=== PATIENT | female | born 1955 | race Caucasian/White ===

== ENCOUNTER 2017-04-21 13:19 | Inpatient (IN) | payer BC, MEDICARE ==
[2017-04-21 13:19] VITALS: BMI 31.1
[2017-04-21] MEDS ORDERED: Sodium Chloride 0.9% 1,000 ML IV ONE (13:44)
--- NOTE | 2017-04-21 14:00 | C.PDOC ---
History Of Present Illness 61 y/o female with a long history of Fibromyalgia, rheumatoid arthritis, PE with IVC filter, DM, HTN as well as a past history of steroid abuse presents to Ed with complaints of persistent abdominal pain with associated nausea. Patient also complaints of post operative leg pain and generalized body aches secondary to recent femur fracture and chronic fibromyalgias. She has generalized weakness. Patient states she cannot eat at the rehab secondary to not liking the smell and taste of food. Patient was seen at ED on 03/14 for Femur fracture and sent to rehab, sent to ED on 04/14 for episodes of vomiting, sore throat and fever, Diagnosed with e coli UTI and hospitalized. Upon discharge from hospital patient was sent back to rehab and states ever since she went back she has not been feeling well. Time Seen by Provider: 04/21/17 13:35 Chief Complaint (Nursing): Abdominal Pain History Per: Patient History/Exam Limitations: no limitations Onset/Duration Of Symptoms: Persistent Current Symptoms Are (Timing): Still Present Past Medical History Reviewed: Historical Data, Nursing Documentation, Vital Signs Vital Signs: Last Vital Signs Temp 99.2 F 04/21/17 13:47 Pulse 112 H 04/21/17 13:47 Resp 14 04/21/17 13:47 BP 171/97 H 04/21/17 13:47 Pulse Ox 100 04/21/17 15:05 - Medical History PMH: Anemia, Anxiety, Arthritis, Asthma, COPD (ASTHMA), Depression, Diabetes, Fibromyalgia, HTN, Hypothyroidism, Pulmonary Embolism (on Coumadin), Rheumatoid Arthritis Surgical History: Back Surgery, Cholecystectomy - [facility] Procedures CENTRAL VENOUS CATHETER PLACEMENT WITH GUIDANCE (09/28/14) ENDOSC POLYPECTOMY OF LG INTEST (09/08/14) ESOPHAGOGASTRODUODENOSCOPY [EGD] W/CLOSED BIOPSY (09/08/14) EXCISION OF STOMACH, ENDO, DIAGN (11/19/15) REPOSITION R UP FEMUR WITH INTRAMED FIX, OPEN APPROACH (03/14/17) SPINAL CANAL EXPLOR NEC (09/08/14) Family History: States: No Known Family Hx - Social History Hx Tobacco Use: No Hx Alcohol Use: No Hx Substance Use: No - Immunization History Hx Tetanus Toxoid Vaccination: Yes Hx Influenza Vaccination: No Hx Pneumococcal Vaccination: No Review Of Systems Constitutional: Negative for: Fever, Chills Gastrointestinal: Positive for: Nausea, Abdominal Pain. Negative for: Vomiting Musculoskeletal: Positive for: Leg Pain Skin: Negative for: Rash Neurological: Negative for: Weakness, Numbness Physical Exam - Physical Exam Appears: Chronically Ill, Other (Flat affect) Skin: Warm, Dry, Other (sallow ) Head: Atraumatic, Normacephalic Eye(s): bilateral: Normal Inspection Oral Mucosa: Dry Neck: Normal ROM, Supple Chest: Symmetrical Cardiovascular: Rhythm Regular, Other (Tachycardia) Respiratory: Normal Breath Sounds, No Rales, No Rhonchi, No Wheezing Gastrointestinal/Abdominal: Soft, Tenderness (suprapubic), No Guarding, No Rebound, Other (Rotund abdomen) Back: No CVA Tenderness Extremity: Normal ROM, No Pedal Edema, Capillary Refill (<2 seconds) Pulses: Left Radial: Normal, Right Radial: Normal Neurological/Psych: Oriented x3, Normal Motor, Normal Sensation ED Course And Treatment - Laboratory Results Result Diagrams: 04/21/17 14:21 04/21/17 14:21 Lab Interpretation: Abnormal (Elevated WBC 11.4 with left shift, Na 131, K 3.0, HCO3 18 Urine WBC >900, nitrite +.) ECG: Interpreted By Me ECG Rhythm: Sinus Tachycardia ECG Interpretation: Abnormal O2 Sat by Pulse Oximetry: 100 (RA) Pulse Ox Interpretation: Normal Progress Note: 3:00 Patient now c/o chest pain and tightness in her throat. Repeat EKG unchanged, remains tachycardic with rate 113. Reevaluation Time: 15:07 Reassessment Condition: Unchanged - Physician Consult Information Time Consulting Physician Contacted: 15:07 Physician Contacted: Angel Gutierres Outcome Of Conversation: Patient to be admitted for treatment of recurrent UTI, rehydration. Disposition - Disposition Disposition: HOSPITALIZED Disposition Time: 15:09 Condition: FAIR - POA Present On Arrival: None - Clinical Impression Clinical Impression: UTI (urinary tract infection), Abdominal pain, Hyponatremia - Scribe Statement The provider has reviewed the documentation as recorded by the Keesha Mejía All medical record entries made by the Rafaelibcourt were at my direction and personally dictated by me. I have reviewed the chart and agree that the record accurately reflects my personal performance of the history, physical exam, medical decision making, and the department course for this patient. I have also personally directed, reviewed, and agree with the discharge instructions and disposition.
[2017-04-21] MEDS ORDERED: Sodium Chloride 0.9% 1,000 ML ONE (14:03)
[2017-04-21 14:26] LABS: BASO % 0.4 % (0.0-2.0); EOS # 0.2 K/uL (0.0-0.7); EOS % 1.8 % (0.0-4.0); HEMATOCRIT 33.3 % (34.0-47.0); LYMPH # 4.3 K/uL (1.0-4.3); LYMPH % 37.9 % (20.0-40.0); MEAN CELL VOLUME 74.1 fL (81.0-99.0); MEAN CORPUSCULAR HEMOGLOBIN 23.3 pg (27.0-31.0); MEAN CORPUSCULAR HGB CONC 31.4 g/dL (33.0-37.0); MEAN PLATELET VOLUME 8.2 fL (7.2-11.7); MONO # 1.2 K/uL (0.0-0.8); MONO % 10.4 % (0.0-10.0); RED CELL DISTRIBUTION WIDTH 15.5 % (11.5-14.5); WHITE BLOOD COUNT 11.4 K/uL (4.8-10.8)
[2017-04-21 14:36] LABS: CHLORIDE 100 mmol/L (98-107)
[2017-04-21 14:37] LABS: SODIUM 131 mmol/L (132-148)
[2017-04-21 14:39] LABS: ALKALINE PHOSPHATASE 116 U/L (38-126); AST/SGOT 24 U/L (14-36); BILIRUBIN,TOTAL 0.6 mg/dL (0.2-1.3); BLOOD UREA NITROGEN 9 mg/dL (7-17); CARBON DIOXIDE 18 mmol/L (22-30); GFR AFRICAN-AMERICAN > 60; RBC URINE 35 /hpf (0-3); TOTAL PROTEIN 6.6 g/dL (6.3-8.3); URINE BILIRUBIN NEGATIVE (NEGATIVE); URINE BLOOD 2+ (NEGATIVE); URINE COLOR Yellow (YELLOW); URINE GLUCOSE (UA) NORMAL (Normal); URINE KETONE NEGATIVE (NEGATIVE); URINE LEUKOCYTE ESTERASE 3+ Leu/uL (Negative); URINE PROTEIN 1+ mg/dL (NEGATIVE); URINE UROBILINOGEN NORMAL mg/dL (0.2-1.0); WBC CLUMPS FEW /hpf; WBC URINE 936 /hpf (0-5)
[2017-04-21 14:40] LABS: ALT/SGPT 33 U/L (9-52); CALCIUM 8.3 mg/dl (8.6-10.4); GLUCOSE,RANDOM 111 mg/dL (65-105); URINE BACTERIA FEW (<OCC)
--- NOTE | 2017-04-21 15:49 | CP.PCM.PN ---
Subjective - Date & Time of Evaluation Date of Evaluation: 04/21/17 Time of Evaluation: 15:30 - Subjective Subjective: CC: Dysuria, nausea, vomiting HPI: Patient is a 61 year old female who has a historyof Depression, DM, HTN, urinary incontinence is here for dehydration, urinary tract infection, and nasuea/vomiting for 10 days. She comes from a retirement where she has been for the past few weeks and before then she as at [facility]. She says she was vomiting for the past ten days and also having some painful urination as well. She also says she was feeling weak as well. She denies any coffee ground emesis, bloody emesis, blood in stool, or black tarry stool. She also denies fever, chills, chest pain, shortness of breath, cough, diarrhea, joint pain, or swelling. She is seen by Dr. Gutierres as an outpatient. PMH: see above PSH: right hip surgery SH: denies smoking, etoh use, or drug use. Objective - Vital Signs/Intake and Output Vital Signs (last 24 hours): Temp Pulse Resp BP Pulse Ox 99.2 F 112 H 14 171/97 H 100 04/21/17 13:47 04/21/17 13:47 04/21/17 13:47 04/21/17 13:47 04/21/17 15:10 - Medications Medications: Current Medications Potassium Chloride 40 meq/ (Sodium Chloride) 1,020 mls @ 80 mls/hr IV .[id number] MATIAS - Labs Labs: 04/21/17 14:21 04/21/17 14:21 PT 22.4 SECONDS (9.7-12.2) H 04/21/17 14:21 INR 2.0 04/21/17 14:21 - Constitutional Appears: Unkempt, Confused - Eye Exam Eye Exam: Normal appearance, PERRL Pupil Exam: NORMAL ACCOMODATION - ENT Exam ENT Exam: Mucous Membranes Dry - Respiratory Exam Respiratory Exam: Clear to Ausculation Bilateral. absent: Rales, Rhonchi, Wheezes - Cardiovascular Exam Cardiovascular Exam: REGULAR RHYTHM, RRR, +S1, +S2. absent: Gallop, Rubs - GI/Abdominal Exam GI & Abdominal Exam: Soft, Normal Bowel Sounds. absent: Distended, Guarding, Tenderness - Neurological Exam Neurological Exam: Alert, Awake - Psychiatric Exam Psychiatric exam: Anxious - Skin Skin Exam: Pallor, Pallor, Warm. absent: Normal Color Assessment and Plan (1) UTI (urinary tract infection) Assessment & Plan: Admitted patient to regular inpatient floor. After review of her labs she has a white count with no left shift or bands. Started Cipro 400mg Q12H UA shows Nitrites, Plus WBCs, +3 LE, 936 WBCS Follow up morning cbc and urine culture Status: Acute (2) Anemia Assessment & Plan: Patient looks very pale, Her Hbg is around her baseline, monitor her CBC. Status: Acute (3) Nausea & vomiting Assessment & Plan: Zofran 4mg Q4H prn, will Status: Acute (4) Hypokalemia Assessment & Plan: K is 3.0, 40 meq of KDUR x2 40 meq of potassium in half normal saline at 80 cc/hr Status: Acute (5) Hyponatremia Assessment & Plan: Na is 130, follow up morning cmp Status: Acute (6) Diabetes mellitus Assessment & Plan: Home metformin 500mb bid, accu checks, sliding scale, hypoglycemia protocol, moderate carb consistent diet Status: Chronic (7) History of pulmonary embolus (PE) Assessment & Plan: Warfarin 2mg, follow up morning INR Status: Chronic (8) Hypothyroid Assessment & Plan: Synthroid Status: Chronic (9) CHF (congestive heart failure) Assessment & Plan: Lisinopril 10mg, Cardizem 120mg, and Lopressor 25mg daily. Status: Chronic (10) HTN (hypertension) Assessment & Plan: Lopressor 25mg bid, Zestril 10mg, prn hydralazine 10mg Status: Chronic (11) Depression Assessment & Plan: Wellbutrin 100mg Status: Acute (12) Prophylactic measure Assessment & Plan: on Warfarin 2mg, Protonix 40mg, Protonix 40mg Senokot Tab 20mg prn Ambien 5mg prn for sleep aid. Status: Acute
[2017-04-21] MEDS ORDERED: Dextrose 50% SYRINGE Inj (50 ml) IV PRN (16:15)
[2017-04-21] MEDS: Pantoprazole 40 mg EC Tab PO SCH (18:26)
[2017-04-21] MEDS: Sucralfate 1 gm/10 ml Oral Susp UD PO SCH ×2 (18:27→21:44)
[2017-04-21] MEDS: Potassium Chloride 20 mEq ER Tab PO SCH ×2 (18:27→20:30)
[2017-04-21] MEDS: Oxybutynin XL 10 mg Tab PO SCH (18:28)
[2017-04-21] MEDS: (Novolin R) Insulin Human Regular 100 units/ml vial SC SCH ×2 (18:34→21:49)
[2017-04-21] MEDS: Potassium Chloride 40 MEQ in Sodium Chloride 0.45% 1,000 ML IV SCH (18:44)
[2017-04-21] MEDS: Ciprofloxacin 400mg/200ml D5W 400 MG/200 ML BAG IVPB SCH (21:44)
[2017-04-21] MEDS ORDERED: Magnesium Sulfate 1 gm in D5W 1 GM/100 ML BAG IVPB ONE (22:22)
[2017-04-22] MEDS ORDERED: Magnesium Sulfate 1 gm in D5W 1 GM/100 ML BAG IVPB ONE (04:00)
[2017-04-22] MEDS: Potassium Chloride 40 MEQ in Sodium Chloride 0.45% 1,000 ML IV SCH (05:02)
[2017-04-22] MEDS: Levothyroxine 100 MCG TAB PO SCH (06:05)
[2017-04-22] MEDS: Ciprofloxacin 400mg/200ml D5W 400 MG/200 ML BAG IVPB SCH ×2 (06:07→17:36)
[2017-04-22 06:31] LABS: BASO # 0.1 K/uL (0.0-0.2); BASO % 0.8 % (0.0-2.0); EOS # 0.2 K/uL (0.0-0.7); EOS % 1.8 % (0.0-4.0); HEMATOCRIT 32.4 % (34.0-47.0); LYMPH # 3.7 K/uL (1.0-4.3); LYMPH % 32.4 % (20.0-40.0); MEAN CELL VOLUME 74.7 fL (81.0-99.0); MEAN CORPUSCULAR HEMOGLOBIN 23.7 pg (27.0-31.0); MEAN CORPUSCULAR HGB CONC 31.8 g/dL (33.0-37.0); MEAN PLATELET VOLUME 8.7 fL (7.2-11.7); MONO # 1.1 K/uL (0.0-0.8); MONO % 9.4 % (0.0-10.0); RED CELL DISTRIBUTION WIDTH 15.3 % (11.5-14.5); WHITE BLOOD COUNT 11.5 K/uL (4.8-10.8)
[2017-04-22 06:35] LABS: INR 1.8
[2017-04-22 07:27] LABS: CHLORIDE 102 mmol/L (98-107)
[2017-04-22 07:28] LABS: POTASSIUM 2.9 mmol/L (3.6-5.2); SODIUM 129 mmol/L (132-148)
[2017-04-22 07:30] LABS: BILIRUBIN,TOTAL 0.6 mg/dL (0.2-1.3); CARBON DIOXIDE 15 mmol/L (22-30); GFR AFRICAN-AMERICAN > 60
[2017-04-22] MEDS: (Novolin R) Insulin Human Regular 100 units/ml vial SC SCH ×4 (07:30→22:54)
[2017-04-22 07:31] LABS: ALB/GLOB RATIO 0.9 (1.0-2.1); ALKALINE PHOSPHATASE 117 U/L (38-126); ALT/SGPT 34 U/L (9-52); AST/SGOT 22 U/L (14-36); BLOOD UREA NITROGEN 6 mg/dL (7-17); GLUCOSE,RANDOM 104 mg/dL (65-105); TOTAL PROTEIN 6.3 g/dL (6.3-8.3)
[2017-04-22 07:32] LABS: CALCIUM 7.7 mg/dl (8.6-10.4); MAGNESIUM 1.2 mg/dL (1.6-2.3); PHOSPHOROUS 3.3 mg/dL (2.5-4.5)
[2017-04-22] MEDS ORDERED: Sodium Chloride 0.45% 1,000 ML IV SCH (07:54)
[2017-04-22] MEDS: Magnesium Sulfate 1 gm in D5W 1 GM/100 ML BAG IVPB SCH ×4 (08:15→11:19)
[2017-04-22] MEDS: diltiaZEM 120 mg/24 Hours CD Cap PO SCH (09:54)
[2017-04-22] MEDS: Sucralfate 1 gm/10 ml Oral Susp UD PO SCH ×4 (09:54→22:17)
[2017-04-22] MEDS: Potassium Chloride 20 mEq ER Tab PO SCH ×2 (09:55→17:40)
[2017-04-22] MEDS: Pantoprazole 40 mg EC Tab PO SCH (10:00)
--- NOTE | 2017-04-22 10:01 | CP.PCM.PN ---
Subjective - Date & Time of Evaluation Date of Evaluation: 04/22/17 Time of Evaluation: 10:53 - Subjective Subjective: Patient seen and examined at bedside this AM; states her N/V/D has improved but still present Objective - Vital Signs/Intake and Output Vital Signs (last 24 hours): Temp Pulse Resp BP Pulse Ox 98.4 F 110 H 20 167/87 H 97 04/22/17 05:00 04/22/17 05:00 04/22/17 05:00 04/22/17 05:00 04/22/17 05:00 Intake and Output: 04/22/17 04/22/17 06:59 18:59 Intake Total 200 Balance 200 - Medications Medications: Current Medications Bupropion HCl (Wellbutrin) 100 mg PO DAILY [facility] Last Admin: 04/21/17 18:28 Dose: 100 mg Cyproheptadine HCl (Periactin) 4 mg PO DAILY [facility] Last Admin: 04/21/17 18:28 Dose: 4 mg Dextrose (Dextrose 50% Inj) 0 ml IV STAT PRN; Protocol PRN Reason: Hyglycemia Protocol Dextrose (Glutose 15) 0 gm PO ONCE PRN; Protocol PRN Reason: Hypoglycemia Protocol Diltiazem HCl (Cardizem Cd) 120 mg PO DAILY [facility] Ciprofloxacin (Cipro 400mg/200ml Dsw) 400 mg in 200 mls @ 133 mls/hr IVPB Q12H [facility] Last Admin: 04/22/17 06:07 Dose: 133 mls/hr Dextrose (Dextrose 5% In Water 1000 Ml) 1,000 mls @ 0 mls/hr IV .Q0M PRN; Protocol; Per Protocol PRN Reason: Hypoglycemia Protocol Sodium Chloride (Sodium Chloride 0.9%) 1,000 mls @ 100 mls/hr IV .Q10H [facility] Potassium Chloride 60 meq/ (Sodium Chloride) 530 mls @ 88.333 mls/hr IV ONCE ONE Stop: 04/22/17 14:59 Insulin Human Regular (Novolin R) 0 unit SC ACHS [facility] PRN Reason: Protocol Last Admin: 04/21/17 21:49 Dose: Not Given Levothyroxine Sodium (Synthroid) 100 mcg PO DAILY@0630 [facility] Last Admin: 04/22/17 06:05 Dose: 100 mcg Lisinopril (Zestril) 10 mg PO DAILY [facility] Last Admin: 04/21/17 18:33 Dose: 10 mg Metformin HCl (Glucophage) 500 mg PO BID [facility] Last Admin: 04/21/17 18:44 Dose: 500 mg Metoprolol Tartrate (Lopressor) 25 mg PO BID [facility] Last Admin: 04/21/17 22:26 Dose: Not Given Ondansetron HCl (Zofran Tab) 4 mg PO Q4 PRN PRN Reason: Nausea/Vomiting Ondansetron HCl (Zofran Inj) 4 mg IVP Q6 PRN PRN Reason: Nausea/Vomiting Last Admin: 04/22/17 03:01 Dose: 4 mg Oxybutynin Chloride (Ditropan Xl) 10 mg PO DAILY [facility] Last Admin: 04/21/17 18:28 Dose: 10 mg Pantoprazole Sodium (Protonix Ec Tab) 40 mg PO DAILY [facility] Last Admin: 04/21/17 18:26 Dose: 40 mg Potassium Chloride (K-Dur 20 Meq Er Tab) 40 meq PO BID [facility] Stop: 04/22/17 23:30 Rosuvastatin Calcium (Crestor) 20 mg PO HS [facility] Last Admin: 04/21/17 22:25 Dose: Not Given Sennosides (Senokot Tab) 8.6 mg PO HS PRN Sucralfate (Carafate Oral Susp) 1 gm PO QID [facility] Last Admin: 04/21/17 21:44 Dose: 1 gm Warfarin Sodium (Coumadin) 2 mg PO 1800 [facility] Stop: 04/22/17 18:01 Zolpidem Tartrate (Ambien) 5 mg PO HS PRN PRN Reason: Insomnia - Labs Labs: 04/22/17 06:05 04/22/17 06:05 PT 20.7 SECONDS (9.7-12.2) H 04/22/17 06:05 INR 1.8 04/22/17 06:05 APTT 34 SECONDS (21-34) 04/22/17 06:05 - Constitutional Appears: Non-toxic (conti facies) - Head Exam Head Exam: ATRAUMATIC (conti facies and fat redistribution) - Eye Exam Eye Exam: EOMI - ENT Exam ENT Exam: Mucous Membranes Moist - Neck Exam Neck Exam: Full ROM - Respiratory Exam Respiratory Exam: Clear to Ausculation Bilateral. absent: Rales - Cardiovascular Exam Cardiovascular Exam: REGULAR RHYTHM - Extremities Exam Extremities Exam: Full ROM. absent: Calf Tenderness - Back Exam Back Exam: absent: CVA tenderness (L), CVA tenderness (R) - Neurological Exam Neurological Exam: Awake, Oriented x3 - Psychiatric Exam Psychiatric exam: Normal Affect - Skin Skin Exam: Warm Assessment and Plan - Assessment and Plan (Free Text) Assessment: UTI (urinary tract infection) Admitted patient to regular inpatient floor. white count with no left shift or bands; same today as on admission c/w Cipro 400mg Q12H UA shows Nitrites, Plus WBCs, +3 LE, 936 WBCS f/u urine culture Anemia; chronic and stable Her Hbg is around her baseline, monitor her CBC. 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 Patient has been taking very high dose steroids for fibromyalgia -will give 100mg IV hydrocortisone AM and 50mg PM -can outpatient take 50mg morning PO and 25mg PO nighttime as outpatient -will monitor electrolyte abnormalities as such Hypokalemia K is 3.0, 40 meq of KDUR x2 K is 2.9 today; repleting appropriately; will check in PM Hyponatremia Na is 130 on admission, 129 04/22 changed 1/2 normal saline to normal saline Diabetes mellitus Home metformin 500mb bid, accu checks, sliding scale, hypoglycemia protocol, moderate carb consistent diet History of pulmonary embolus (PE) Warfarin 2mg, follow up morning INR Hypothyroid check TSH and Free T4 Synthroid home dose CHF (congestive heart failure) Assessment & Plan: Lisinopril 10mg, Cardizem 120mg, and Lopressor 25mg daily. HTN (hypertension) Assessment & Plan: Lopressor 25mg bid, Zestril 10mg, prn hydralazine 10mg Depression Assessment & Plan: Wellbutrin 100mg Prophylactic measure Assessment & Plan: on Warfarin 2mg, Protonix 40mg, Protonix 40mg Senokot Tab 20mg prn Ambien 5mg prn for sleep aid.
[2017-04-22] MEDS: Oxybutynin XL 10 mg Tab PO SCH (10:02)
--- NOTE | 2017-04-22 10:51 | RAD ---
PROCEDURE: Radiographs of the chest and abdomen (obstructive series) HISTORY: nausea, vomiting COMPARISON: No prior. TECHNIQUE: AP radiograph of the chest, with upright and supine radiographs of the abdomen. FINDINGS: CHEST: Lungs: Clear. Mammillated right hemidiaphragm Cardiovascular: Normal size heart. No pulmonary vascular congestion. Pleura: No pleural fluid. No pneumothorax. Other findings: None. ABDOMEN AND PELVIS: Bowel: Unremarkable bowel gas pattern. No evidence of mechanical obstruction. Free air: None. Bones: Right L3-4 prominent marginal osteophyte. Inferior right-sided marginal thoracic osteophytes Other findings: Cholecystectomy clips. IVC filter IMPRESSION: No infiltrate. No evidence of mechanical bowel obstruction. Postop changes Thoraco lumbar spondylosis
[2017-04-22 11:41] LABS: INR 1.9
[2017-04-22 19:57] LABS: CHLORIDE 102 mmol/L (98-107); POTASSIUM 4.2 mmol/L (3.6-5.2); SODIUM 130 mmol/L (132-148)
[2017-04-22 20:00] LABS: GFR AFRICAN-AMERICAN > 60
[2017-04-22 20:05] LABS: BLOOD UREA NITROGEN 5 mg/dL (7-17); CALCIUM 8.2 mg/dl (8.6-10.4); CARBON DIOXIDE 16 mmol/L (22-30); GLUCOSE,RANDOM 179 mg/dL (65-105)
[2017-04-22] MEDS: Sodium Chloride 0.9% 1,000 ML IV SCH (22:20)
[2017-04-23] MEDS: Sodium Chloride 0.9% 1,000 ML IV SCH (04:00)
[2017-04-23] MEDS: Levothyroxine 100 MCG TAB PO SCH (05:42)
[2017-04-23] MEDS: Ciprofloxacin 400mg/200ml D5W 400 MG/200 ML BAG IVPB SCH ×2 (05:43→18:36)
[2017-04-23 06:56] LABS: INR 2.2
[2017-04-23] MEDS: (Novolin R) Insulin Human Regular 100 units/ml vial SC SCH ×4 (08:08→22:18)
[2017-04-23] MEDS: Pantoprazole 40 mg EC Tab PO SCH ×2 (10:17→10:19)
[2017-04-23] MEDS: diltiaZEM 120 mg/24 Hours CD Cap PO SCH ×3 (10:17→16:17)
[2017-04-23] MEDS: Oxybutynin XL 10 mg Tab PO SCH ×2 (10:19)
[2017-04-23] MEDS: Sucralfate 1 gm/10 ml Oral Susp UD PO SCH ×4 (10:19→21:52)
--- NOTE | 2017-04-23 10:20 | CP.PCM.PN ---
Subjective - Date & Time of Evaluation Date of Evaluation: 04/23/17 Time of Evaluation: 12:55 - Subjective Subjective: Patient seen and examined at bedside today; states she feels better; should be going to [facility] on Wednesday after electrolytes are corrected. She is in agreement with this. Objective - Vital Signs/Intake and Output Vital Signs (last 24 hours): Temp Pulse Resp BP Pulse Ox 98.7 F 114 H 20 159/79 H 100 04/23/17 07:00 04/23/17 07:00 04/23/17 07:00 04/23/17 07:00 04/23/17 07:00 Intake and Output: 04/23/17 04/23/17 06:59 18:59 Intake Total 600 Output Total 900 Balance -300 - Medications Medications: Current Medications Acetaminophen/Hydrocodone Bitart (Vicodin 5 Mg-300 Mg) 1 tab PO Q4H PRN PRN Reason: Pain, moderate (4-7) Stop: 04/30/17 10:14 Bupropion HCl (Wellbutrin) 100 mg PO DAILY [facility] Last Admin: 04/22/17 10:00 Dose: Not Given Cyproheptadine HCl (Periactin) 4 mg PO DAILY [facility] Last Admin: 04/22/17 10:01 Dose: Not Given Dextrose (Dextrose 50% Inj) 0 ml IV STAT PRN; Protocol PRN Reason: Hyglycemia Protocol Dextrose (Glutose 15) 0 gm PO ONCE PRN; Protocol PRN Reason: Hypoglycemia Protocol Diltiazem HCl (Cardizem Cd) 120 mg PO DAILY [facility] Last Admin: 04/22/17 09:54 Dose: Not Given Hydrocortisone Sodium Succinate (Solu-Cortef) 100 mg IV DAILY [facility] Last Admin: 04/22/17 11:00 Dose: 100 mg Hydrocortisone Sodium Succinate (Solu-Cortef) 50 mg IV HS [facility] Last Admin: 04/22/17 22:17 Dose: 50 mg Ciprofloxacin (Cipro 400mg/200ml Dsw) 400 mg in 200 mls @ 133 mls/hr IVPB Q12H [facility] Last Admin: 04/23/17 05:43 Dose: 133 mls/hr Dextrose (Dextrose 5% In Water 1000 Ml) 1,000 mls @ 0 mls/hr IV .Q0M PRN; Protocol; Per Protocol PRN Reason: Hypoglycemia Protocol Insulin Human Regular (Novolin R) 0 unit SC ACHS [facility] PRN Reason: Protocol Last Admin: 04/23/17 08:08 Dose: 1 unit Levothyroxine Sodium (Synthroid) 100 mcg PO DAILY@0630 [facility] Last Admin: 04/23/17 05:42 Dose: 100 mcg Lisinopril (Zestril) 10 mg PO DAILY [facility] Last Admin: 04/22/17 10:00 Dose: Not Given Loperamide HCl (Imodium) 2 mg PO QID PRN PRN Reason: Diarrhea Metformin HCl (Glucophage) 500 mg PO BID [facility] Last Admin: 04/22/17 17:40 Dose: Not Given Metoprolol Tartrate (Lopressor) 25 mg PO BID [facility] Last Admin: 04/22/17 17:38 Dose: 25 mg Ondansetron HCl (Zofran Tab) 4 mg PO Q4 PRN PRN Reason: Nausea/Vomiting Ondansetron HCl (Zofran Inj) 4 mg IVP Q6 PRN PRN Reason: Nausea/Vomiting Last Admin: 04/22/17 11:06 Dose: 4 mg Oxybutynin Chloride (Ditropan Xl) 10 mg PO DAILY [facility] Last Admin: 04/22/17 10:02 Dose: Not Given Pantoprazole Sodium (Protonix Ec Tab) 40 mg PO DAILY [facility] Last Admin: 04/22/17 10:00 Dose: Not Given Rosuvastatin Calcium (Crestor) 20 mg PO HS [facility] Last Admin: 04/22/17 22:17 Dose: 20 mg Sennosides (Senokot Tab) 8.6 mg PO HS PRN Sucralfate (Carafate Oral Susp) 1 gm PO QID [facility] Last Admin: 04/22/17 22:17 Dose: 1 gm Tetrahydrozoline HCl/Zinc Sulfate (Visine 0.05% Opht Soln) 2 ml OU Q1H PRN PRN Reason: eye pain Warfarin Sodium (Coumadin) 2 mg PO 1800 [facility] Stop: 04/23/17 18:01 Zolpidem Tartrate (Ambien) 5 mg PO HS PRN PRN Reason: Insomnia Last Admin: 04/23/17 00:16 Dose: 5 mg - Labs Labs: 04/22/17 06:05 04/22/17 19:43 PT 25.0 SECONDS (9.7-12.2) H 04/23/17 06:37 INR 2.2 04/23/17 06:37 APTT 34 SECONDS (21-34) 04/22/17 06:05 - Constitutional Appears: Non-toxic - Head Exam Head Exam: ATRAUMATIC - Eye Exam Eye Exam: EOMI - ENT Exam ENT Exam: Mucous Membranes Moist - Neck Exam Neck Exam: Full ROM - Respiratory Exam Respiratory Exam: Clear to Ausculation Bilateral - Cardiovascular Exam Cardiovascular Exam: REGULAR RHYTHM - GI/Abdominal Exam GI & Abdominal Exam: Soft - Rectal Exam Rectal Exam: Deferred - Extremities Exam Extremities Exam: Full ROM, Pedal Edema. absent: Calf Tenderness - Back Exam Back Exam: absent: CVA tenderness (L), CVA tenderness (R) - Neurological Exam Neurological Exam: Alert, Awake, Oriented x3 - Psychiatric Exam Psychiatric exam: Normal Affect - Skin Skin Exam: Warm Assessment and Plan - Assessment and Plan (Free Text) Assessment: UTI (urinary tract infection) Admitted patient to regular inpatient floor. white count with no left shift or bands; same today as on admission c/w Cipro 400mg Q12H UA shows Nitrites, Plus WBCs, +3 LE, 936 WBCS culture is sensitive to cipro; will continue for 7 days; can even switch to PO when goes to Anemia; chronic and stable Her Hbg is around her baseline, monitor her CBC. 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 Patient has been taking very high dose steroids for fibromyalgia -will give 100mg IV hydrocortisone AM and 50mg PM -can outpatient take 50mg morning PO and 25mg PO nighttime as outpatient -will monitor electrolyte abnormalities as such Hypokalemia; improving resolved Hyponatremia; improving 130 today Diabetes mellitus Home metformin 500mb bid, accu checks, sliding scale, hypoglycemia protocol, moderate carb consistent diet -will likely need more insulin with the high dose steroids History of pulmonary embolus (PE) Warfarin 2mg, follow up morning INR INR stable Hypothyroid Synthroid home dose T4 high, TSH above normal limits however patient feels controlled with symptoms CHF (congestive heart failure) Assessment & Plan: Lisinopril 10mg, Cardizem 120mg, and Lopressor 25mg daily. HTN (hypertension) Assessment & Plan: Lopressor 25mg bid, Zestril 10mg, prn hydralazine 10mg Depression Assessment & Plan: Wellbutrin 100mg Prophylactic measure Assessment & Plan: on Warfarin 2mg, Protonix 40mg, Protonix 40mg Senokot Tab 20mg prn Ambien 5mg prn for sleep aid All management as per Dr. Gutierres
--- NOTE | 2017-04-23 12:29 | CARD ---
APPROVED REPORT EKG Measurement Heart [id number] <Conclusion> Sinus tachycardia Otherwise normal ECG
--- NOTE | 2017-04-23 12:29 | CARD ---
APPROVED REPORT EKG Measurement Heart [id number] [place] [id number] <Conclusion> Sinus tachycardia Otherwise normal ECG
[2017-04-23] MEDS: Hydrocodone/Acetaminophen 5 mg /300 mg Tab PO PRN (18:47)
[2017-04-23] MEDS: Tetrahydrozoline Opht 0.05% Sol (15 ml) OU PRN (18:50)
[2017-04-24] MEDS: Hydrocodone/Acetaminophen 5 mg /300 mg Tab PO PRN ×3 (00:31→22:23)
[2017-04-24] MEDS: Ciprofloxacin 400mg/200ml D5W 400 MG/200 ML BAG IVPB SCH ×2 (05:32→17:14)
[2017-04-24] MEDS: Levothyroxine 100 MCG TAB PO SCH (05:33)
[2017-04-24] MEDS: Tetrahydrozoline Opht 0.05% Sol (15 ml) OU PRN ×4 (05:48→21:26)
[2017-04-24 06:35] LABS: INR 2.4
[2017-04-24] MEDS: (Novolin R) Insulin Human Regular 100 units/ml vial SC SCH ×4 (08:08→22:02)
[2017-04-24] MEDS: diltiaZEM 120 mg/24 Hours CD Cap PO SCH (10:58)
[2017-04-24] MEDS: Oxybutynin XL 10 mg Tab PO SCH (10:59)
[2017-04-24] MEDS: Sucralfate 1 gm/10 ml Oral Susp UD PO SCH ×4 (11:00→21:26)
[2017-04-24] MEDS: Pantoprazole 40 mg EC Tab PO SCH (11:00)
[2017-04-25] MEDS: Levothyroxine 100 MCG TAB PO SCH (06:13)
[2017-04-25] MEDS: Ciprofloxacin 400mg/200ml D5W 400 MG/200 ML BAG IVPB SCH ×2 (06:14→17:48)
[2017-04-25 07:23] LABS: INR 2.1
[2017-04-25] MEDS: (Novolin R) Insulin Human Regular 100 units/ml vial SC SCH ×4 (07:33→21:49)
[2017-04-25] MEDS: Tetrahydrozoline Opht 0.05% Sol (15 ml) OU PRN ×2 (09:24→13:08)
[2017-04-25] MEDS: Sucralfate 1 gm/10 ml Oral Susp UD PO SCH ×4 (09:25→21:36)
[2017-04-25] MEDS: Pantoprazole 40 mg EC Tab PO SCH (09:26)
[2017-04-25] MEDS: diltiaZEM 120 mg/24 Hours CD Cap PO SCH (09:26)
[2017-04-25] MEDS: Oxybutynin XL 10 mg Tab PO SCH (09:27)
[2017-04-25] MEDS: Hydrocodone/Acetaminophen 5 mg /300 mg Tab PO PRN ×2 (16:23→23:34)
[2017-04-26] MEDS: Levothyroxine 100 MCG TAB PO SCH (06:06)
[2017-04-26] MEDS: (Novolin R) Insulin Human Regular 100 units/ml vial SC SCH ×4 (07:07→22:00)
[2017-04-26 07:33] LABS: BASO # 0.1 K/uL (0.0-0.2); BASO % 0.5 % (0.0-2.0); EOS # 0.1 K/uL (0.0-0.7); EOS % 0.7 % (0.0-4.0); HEMATOCRIT 28.5 % (34.0-47.0); LYMPH # 4.4 K/uL (1.0-4.3); LYMPH % 32.9 % (20.0-40.0); MEAN CELL VOLUME 74.8 fL (81.0-99.0); MEAN CORPUSCULAR HEMOGLOBIN 23.6 pg (27.0-31.0); MEAN CORPUSCULAR HGB CONC 31.6 g/dL (33.0-37.0); MEAN PLATELET VOLUME 8.5 fL (7.2-11.7); MONO # 1.1 K/uL (0.0-0.8); MONO % 8.2 % (0.0-10.0); RED CELL DISTRIBUTION WIDTH 15.9 % (11.5-14.5); WHITE BLOOD COUNT 13.5 K/uL (4.8-10.8)
[2017-04-26 07:38] LABS: INR 1.5
[2017-04-26 08:19] LABS: CHLORIDE 105 mmol/L (98-107); POTASSIUM 3.1 mmol/L (3.6-5.2); SODIUM 133 mmol/L (132-148)
[2017-04-26 08:21] LABS: BILIRUBIN,TOTAL 0.4 mg/dL (0.2-1.3); CARBON DIOXIDE 19 mmol/L (22-30); GFR AFRICAN-AMERICAN > 60
[2017-04-26 08:22] LABS: ALB/GLOB RATIO 1.2 (1.0-2.1); ALKALINE PHOSPHATASE 80 U/L (38-126); ALT/SGPT 26 U/L (9-52); AST/SGOT 17 U/L (14-36); BLOOD UREA NITROGEN 25 mg/dL (7-17); CALCIUM 8.3 mg/dl (8.6-10.4); GLUCOSE,RANDOM 99 mg/dL (65-105); TOTAL PROTEIN 5.1 g/dL (6.3-8.3)
[2017-04-26] MEDS ORDERED: Potassium Chloride 20 mEq ER Tab PO ONE (10:30)
[2017-04-26] MEDS: Tetrahydrozoline Opht 0.05% Sol (15 ml) OU PRN ×2 (10:30→21:24)
[2017-04-26] MEDS: diltiaZEM 120 mg/24 Hours CD Cap PO SCH ×2 (10:31→10:36)
[2017-04-26] MEDS: Oxybutynin XL 10 mg Tab PO SCH (10:32)
[2017-04-26] MEDS: Sucralfate 1 gm/10 ml Oral Susp UD PO SCH ×5 (10:33→21:18)
[2017-04-26] MEDS: Pantoprazole 40 mg EC Tab PO SCH (10:33)
--- NOTE | 2017-04-26 11:39 | CP.PCM.PN ---
Subjective - Date & Time of Evaluation Date of Evaluation: 04/26/17 Time of Evaluation: 11:35 - Subjective Subjective: Progress note. Service for Dr. Gutierres. Pt seen and examined at bedside. No acute distress. Feels much better, plan for DC home. No fevers, chills, vomiting, diarrhea. Objective - Vital Signs/Intake and Output Vital Signs (last 24 hours): Temp Pulse Resp BP Pulse Ox 98.2 F 93 H 18 113/68 98 04/26/17 08:51 04/26/17 08:51 04/26/17 08:51 04/26/17 10:31 04/26/17 08:51 - Medications Medications: Current Medications Acetaminophen/Hydrocodone Bitart (Vicodin 5 Mg-300 Mg) 1 tab PO Q4H PRN PRN Reason: Pain, moderate (4-7) Stop: 04/30/17 10:14 Last Admin: 04/25/17 23:34 Dose: 1 tab Bupropion HCl (Wellbutrin) 100 mg PO DAILY [facility] Last Admin: 04/26/17 10:32 Dose: 100 mg Ciprofloxacin (Cipro) 500 mg PO Q12 [facility] Last Admin: 04/26/17 10:32 Dose: 500 mg Cyproheptadine HCl (Periactin) 4 mg PO DAILY [facility] Last Admin: 04/26/17 10:34 Dose: Not Given Dextrose (Dextrose 50% Inj) 0 ml IV STAT PRN; Protocol PRN Reason: Hyglycemia Protocol Dextrose (Glutose 15) 0 gm PO ONCE PRN; Protocol PRN Reason: Hypoglycemia Protocol Diltiazem HCl (Cardizem Cd) 120 mg PO DAILY [facility] Last Admin: 04/26/17 10:36 Dose: Not Given Hydrocortisone Sodium Succinate (Solu-Cortef) 100 mg IV DAILY [facility] Last Admin: 04/26/17 10:33 Dose: 100 mg Hydrocortisone Sodium Succinate (Solu-Cortef) 50 mg IV HS [facility] Last Admin: 04/25/17 21:37 Dose: 50 mg Insulin Human Regular (Novolin R) 0 unit SC ACHS [facility] PRN Reason: Protocol Last Admin: 04/26/17 07:07 Dose: Not Given Levothyroxine Sodium (Synthroid) 100 mcg PO DAILY@0630 [facility] Last Admin: 04/26/17 06:06 Dose: 100 mcg Lisinopril (Zestril) 10 mg PO DAILY [facility] Last Admin: 04/26/17 10:34 Dose: Not Given Loperamide HCl (Imodium) 2 mg PO QID PRN PRN Reason: Diarrhea Metformin HCl (Glucophage) 500 mg PO BID [facility] Last Admin: 04/26/17 10:33 Dose: 500 mg Metoprolol Tartrate (Lopressor) 25 mg PO BID [facility] Last Admin: 04/26/17 10:31 Dose: 25 mg Ondansetron HCl (Zofran Tab) 4 mg PO Q4 PRN PRN Reason: Nausea/Vomiting Ondansetron HCl (Zofran Inj) 4 mg IVP Q6 PRN PRN Reason: Nausea/Vomiting Last Admin: 04/22/17 11:06 Dose: 4 mg Oxybutynin Chloride (Ditropan Xl) 10 mg PO DAILY [facility] Last Admin: 04/26/17 10:32 Dose: 10 mg Pantoprazole Sodium (Protonix Ec Tab) 40 mg PO DAILY [facility] Last Admin: 04/26/17 10:33 Dose: 40 mg Rosuvastatin Calcium (Crestor) 20 mg PO HS [facility] Last Admin: 04/25/17 21:36 Dose: 20 mg Sennosides (Senokot Tab) 8.6 mg PO HS PRN Sucralfate (Carafate Oral Susp) 1 gm PO QID [facility] Last Admin: 04/26/17 10:44 Dose: Not Given Tetrahydrozoline HCl/Zinc Sulfate (Visine 0.05% Opht Soln) 0 ml OU Q1H PRN PRN Reason: eye pain Last Admin: 04/26/17 10:30 Dose: 1 drop Zolpidem Tartrate (Ambien) 5 mg PO HS PRN PRN Reason: Insomnia Last Admin: 04/25/17 21:36 Dose: 5 mg - Labs Labs: 04/26/17 07:16 04/26/17 07:16 PT 17.9 SECONDS (9.7-12.2) H D 04/26/17 07:16 INR 1.5 D 04/26/17 07:16 APTT 34 SECONDS (21-34) 04/22/17 06:05 - Constitutional Appears: Non-toxic, No Acute Distress - Head Exam Head Exam: ATRAUMATIC, NORMAL INSPECTION, NORMOCEPHALIC - Eye Exam Eye Exam: EOMI - ENT Exam ENT Exam: Mucous Membranes Moist - Neck Exam Neck Exam: Full ROM, Normal Inspection - Respiratory Exam Respiratory Exam: NORMAL BREATHING PATTERN. absent: Respiratory Distress - Cardiovascular Exam Cardiovascular Exam: REGULAR RHYTHM - GI/Abdominal Exam GI & Abdominal Exam: Soft, Normal Bowel Sounds. absent: Tenderness - Extremities Exam Extremities Exam: Full ROM, Normal Inspection - Neurological Exam Neurological Exam: Alert, Awake, Oriented x3 - Psychiatric Exam Psychiatric exam: Normal Affect, Normal Mood - Skin Skin Exam: Dry, Intact, Normal Color, Warm Assessment and Plan - Assessment and Plan (Free Text) Assessment: UTI (urinary tract infection) -Admitted patient to regular inpatient floor. 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 Patient has been taking very high dose steroids for fibromyalgia -will give 100mg IV hydrocortisone AM and 50mg PM -can outpatient take 50mg morning PO and 25mg PO nighttime as outpatient -will monitor electrolyte abnormalities as such Hypokalemia; improving -cont to monitor Hyponatremia; improving -continue to monitor Diabetes mellitus Home metformin 500mb bid, accu checks, sliding scale, hypoglycemia protocol, moderate carb consistent diet -will likely need more insulin with the high dose steroids History of pulmonary embolus (PE) Warfarin 2mg, follow up morning INR INR stable Hypothyroid Synthroid home dose T4 high, TSH above normal limits however patient feels controlled with symptoms CHF (congestive heart failure) Assessment & Plan: Lisinopril 10mg, Cardizem 120mg, and Lopressor 25mg daily. HTN (hypertension) Assessment & Plan: Lopressor 25mg bid, Zestril 10mg, prn hydralazine 10mg Depression Assessment & Plan: Wellbutrin 100mg Prophylactic measure Assessment & Plan: on Warfarin 2mg, Protonix 40mg, Protonix 40mg Senokot Tab 20mg prn Ambien 5mg prn for sleep aid All management as per Dr. Gutierres
[2017-04-26] MEDS: Hydrocodone/Acetaminophen 5 mg /300 mg Tab PO PRN ×2 (13:27→21:27)
[2017-04-27] MEDS: Levothyroxine 100 MCG TAB PO SCH (05:57)
[2017-04-27 06:22] LABS: BASO # 0.1 K/uL (0.0-0.2); BASO % 0.8 % (0.0-2.0); EOS # 0.1 K/uL (0.0-0.7); EOS % 0.5 % (0.0-4.0); LYMPH # 4.4 K/uL (1.0-4.3); LYMPH % 32.2 % (20.0-40.0); MEAN CELL VOLUME 74.8 fL (81.0-99.0); MEAN CORPUSCULAR HEMOGLOBIN 23.3 pg (27.0-31.0); MEAN CORPUSCULAR HGB CONC 31.2 g/dL (33.0-37.0); MEAN PLATELET VOLUME 8.8 fL (7.2-11.7); MONO # 0.9 K/uL (0.0-0.8); MONO % 6.9 % (0.0-10.0); NRBC % 0.1 % (0.0-2.0); RED CELL DISTRIBUTION WIDTH 16.2 % (11.5-14.5); WHITE BLOOD COUNT 13.7 K/uL (4.8-10.8)
[2017-04-27 06:25] LABS: INR 1.1
[2017-04-27 06:38] LABS: CHLORIDE 105 mmol/L (98-107); SODIUM 134 mmol/L (132-148)
[2017-04-27 06:39] LABS: POTASSIUM 3.5 mmol/L (3.6-5.2)
[2017-04-27 06:40] LABS: GFR AFRICAN-AMERICAN > 60
[2017-04-27 06:41] LABS: ALB/GLOB RATIO 0.9 (1.0-2.1); ALKALINE PHOSPHATASE 79 U/L (38-126); ALT/SGPT 32 U/L (9-52); AST/SGOT 25 U/L (14-36); BILIRUBIN,TOTAL 0.2 mg/dL (0.2-1.3); BLOOD UREA NITROGEN 28 mg/dL (7-17); CARBON DIOXIDE 18 mmol/L (22-30); GLUCOSE,RANDOM 101 mg/dL (65-105); TOTAL PROTEIN 6.2 g/dL (6.3-8.3)
[2017-04-27 06:42] LABS: CALCIUM 8.7 mg/dl (8.6-10.4)
[2017-04-27] MEDS: (Novolin R) Insulin Human Regular 100 units/ml vial SC SCH ×4 (07:30→22:06)
[2017-04-27] MEDS: Tetrahydrozoline Opht 0.05% Sol (15 ml) OU PRN ×4 (08:32→21:58)
[2017-04-27] MEDS: Oxybutynin XL 10 mg Tab PO SCH (10:00)
[2017-04-27] MEDS: diltiaZEM 120 mg/24 Hours CD Cap PO SCH ×2 (10:00→18:25)
[2017-04-27] MEDS: Sucralfate 1 gm/10 ml Oral Susp UD PO SCH ×4 (10:00→21:52)
[2017-04-27] MEDS: Pantoprazole 40 mg EC Tab PO SCH (10:00)
[2017-04-27] MEDS: Hydrocodone/Acetaminophen 5 mg /300 mg Tab PO PRN ×2 (15:45→22:11)
[2017-04-27] MEDS ORDERED: Potassium Chloride 20 mEq/15 ml LIQ UD PO ONE ×2 (16:44→18:29)
--- NOTE | 2017-04-27 16:46 | CP.PCM.PN ---
Subjective - Date & Time of Evaluation Date of Evaluation: 04/27/17 Time of Evaluation: 10:45 - Subjective Subjective: PGY 2 Med Note- Dr. Gutierres's service Pt seen and examined. Patient spoke extensively with Dr. Gutierres about her family. Patient denies complaints at this time. Objective - Vital Signs/Intake and Output Vital Signs (last 24 hours): Temp Pulse Resp BP Pulse Ox 98.2 F 97 H 20 136/76 95 04/27/17 07:05 04/27/17 07:05 04/27/17 07:05 04/27/17 07:05 04/27/17 07:05 Intake and Output: 04/27/17 04/27/17 06:59 18:59 Intake Total 350 Balance 350 - Medications Medications: Current Medications Acetaminophen/Hydrocodone Bitart (Vicodin 5 Mg-300 Mg) 1 tab PO Q4H PRN PRN Reason: Pain, moderate (4-7) Stop: 04/30/17 10:14 Last Admin: 04/27/17 15:45 Dose: 1 tab Bupropion HCl (Wellbutrin) 100 mg PO DAILY [facility] Last Admin: 04/27/17 10:00 Dose: Not Given Ciprofloxacin (Cipro) 500 mg PO Q12 [facility] Last Admin: 04/27/17 10:00 Dose: Not Given Cyproheptadine HCl (Periactin) 4 mg PO DAILY [facility] Last Admin: 04/27/17 10:00 Dose: Not Given Dextrose (Dextrose 50% Inj) 0 ml IV STAT PRN; Protocol PRN Reason: Hyglycemia Protocol Dextrose (Glutose 15) 0 gm PO ONCE PRN; Protocol PRN Reason: Hypoglycemia Protocol Diltiazem HCl (Cardizem Cd) 120 mg PO DAILY [facility] Last Admin: 04/27/17 10:00 Dose: Not Given Hydrocortisone Sodium Succinate (Solu-Cortef) 100 mg IV DAILY [facility] Last Admin: 04/27/17 10:00 Dose: 100 mg Hydrocortisone Sodium Succinate (Solu-Cortef) 50 mg IV HS [facility] Last Admin: 04/26/17 21:23 Dose: 50 mg Insulin Human Regular (Novolin R) 0 unit SC ACHS [facility] PRN Reason: Protocol Last Admin: 04/27/17 11:30 Dose: Not Given Levothyroxine Sodium (Synthroid) 100 mcg PO DAILY@0630 [facility] Last Admin: 04/27/17 05:57 Dose: 100 mcg Lisinopril (Zestril) 10 mg PO DAILY [facility] Last Admin: 04/27/17 10:00 Dose: Not Given Loperamide HCl (Imodium) 2 mg PO QID PRN PRN Reason: Diarrhea Metformin HCl (Glucophage) 500 mg PO BID [facility] Last Admin: 04/27/17 10:00 Dose: Not Given Metoprolol Tartrate (Lopressor) 25 mg PO BID [facility] Last Admin: 04/27/17 10:00 Dose: Not Given Ondansetron HCl (Zofran Tab) 4 mg PO Q4 PRN PRN Reason: Nausea/Vomiting Ondansetron HCl (Zofran Inj) 4 mg IVP Q6 PRN PRN Reason: Nausea/Vomiting Last Admin: 04/27/17 08:25 Dose: 4 mg Oxybutynin Chloride (Ditropan Xl) 10 mg PO DAILY [facility] Last Admin: 04/27/17 10:00 Dose: Not Given Pantoprazole Sodium (Protonix Ec Tab) 40 mg PO DAILY [facility] Last Admin: 04/27/17 10:00 Dose: Not Given Rosuvastatin Calcium (Crestor) 20 mg PO HS [facility] Last Admin: 04/26/17 21:18 Dose: 20 mg Sennosides (Senokot Tab) 8.6 mg PO HS PRN Sucralfate (Carafate Oral Susp) 1 gm PO QID [facility] Last Admin: 04/27/17 14:04 Dose: Not Given Tetrahydrozoline HCl/Zinc Sulfate (Visine 0.05% Opht Soln) 0 ml OU Q1H PRN PRN Reason: eye pain Last Admin: 04/27/17 11:59 Dose: 1 drop Zolpidem Tartrate (Ambien) 5 mg PO HS PRN PRN Reason: Insomnia Last Admin: 04/26/17 21:40 Dose: 5 mg - Labs Labs: 04/27/17 06:11 04/27/17 06:09 PT 12.7 SECONDS (9.7-12.2) H D 04/27/17 06:08 INR 1.1 04/27/17 06:08 APTT 34 SECONDS (21-34) 04/22/17 06:05 - Constitutional Appears: Non-toxic, No Acute Distress - Head Exam Head Exam: ATRAUMATIC, NORMAL INSPECTION, NORMOCEPHALIC - Eye Exam Eye Exam: EOMI, Normal appearance Pupil Exam: NORMAL ACCOMODATION - ENT Exam ENT Exam: Mucous Membranes Moist - Neck Exam Neck Exam: Full ROM - Cardiovascular Exam Cardiovascular Exam: +S1, +S2 - GI/Abdominal Exam GI & Abdominal Exam: Soft, Normal Bowel Sounds - Extremities Exam Extremities Exam: Full ROM, Normal Capillary Refill - Back Exam Back Exam: Full ROM - Neurological Exam Neurological Exam: Alert, Awake, Oriented x3 - Psychiatric Exam Psychiatric exam: Normal Affect, Normal Mood - Skin Skin Exam: Dry, Normal Color, Warm Assessment and Plan - Assessment and Plan (Free Text) Assessment: UTI (urinary tract infection) -Continue cipro 500 q 12 - Add on Florastor -When stable for discharge- patient to continue cipro outpatient Anemia; chronic and stable -continue to monitor Nausea & vomiting -continue zofran -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 Patient has been taking very high dose steroids for fibromyalgia -will give 100mg IV hydrocortisone AM and 50mg PM -can outpatient take 50mg morning PO and 25mg PO nighttime as outpatient -will monitor electrolyte abnormalities as such Hypokalemia -cont to monitor -replete as needed Diabetes mellitus Home metformin 500mb bid, accu checks, sliding scale, hypoglycemia protocol, moderate carb consistent diet -will likely need more insulin with the high dose steroids History of pulmonary embolus (PE) Warfarin 2mg, follow up morning INR INR stable Hypothyroid Synthroid home dose T4 high, TSH above normal limits however patient feels controlled with symptoms CHF (congestive heart failure) Assessment & Plan: Lisinopril 10mg, Cardizem 120mg, and Lopressor 25mg daily. HTN (hypertension) Assessment & Plan: Lopressor 25mg bid, Zestril 10mg, prn hydralazine 10mg Depression Assessment & Plan: Wellbutrin 100mg Prophylactic measure Assessment & Plan: on Warfarin 2mg, Protonix 40mg, Protonix 40mg Senokot Tab 20mg prn Ambien 5mg prn for sleep aid Per case management- Patient is in the process of receiving authorization for [facility] rehab. All management as per Dr. Gutierres
[2017-04-27] MEDS: Saccharomyces Boulardi 250 mg Cap PO SCH (21:59)
[2017-04-28] MEDS: Levothyroxine 100 MCG TAB PO SCH (06:46)
[2017-04-28 07:30] LABS: BASO # 0.1 K/uL (0.0-0.2); BASO % 0.5 % (0.0-2.0); EOS % 0.3 % (0.0-4.0); HEMATOCRIT 29.6 % (34.0-47.0); LYMPH # 4.1 K/uL (1.0-4.3); LYMPH % 31.9 % (20.0-40.0); MEAN CELL VOLUME 74.3 fL (81.0-99.0); MEAN CORPUSCULAR HEMOGLOBIN 23.5 pg (27.0-31.0); MEAN CORPUSCULAR HGB CONC 31.6 g/dL (33.0-37.0); MEAN PLATELET VOLUME 8.4 fL (7.2-11.7); MONO # 1.1 K/uL (0.0-0.8); MONO % 8.6 % (0.0-10.0); NRBC % 0.1 % (0.0-2.0); RED CELL DISTRIBUTION WIDTH 15.7 % (11.5-14.5); WHITE BLOOD COUNT 12.8 K/uL (4.8-10.8)
[2017-04-28 07:32] LABS: CHLORIDE 103 mmol/L (98-107); INR 1.2
[2017-04-28 07:33] LABS: POTASSIUM 3.7 mmol/L (3.6-5.2); SODIUM 134 mmol/L (132-148)
[2017-04-28 07:36] LABS: ALB/GLOB RATIO 1.3 (1.0-2.1); ALKALINE PHOSPHATASE 72 U/L (38-126); ALT/SGPT 26 U/L (9-52); AST/SGOT 25 U/L (14-36); BILIRUBIN,TOTAL 0.4 mg/dL (0.2-1.3); BLOOD UREA NITROGEN 24 mg/dL (7-17); CALCIUM 8.4 mg/dl (8.6-10.4); CARBON DIOXIDE 20 mmol/L (22-30); GFR AFRICAN-AMERICAN > 60; GLUCOSE,RANDOM 106 mg/dL (65-105); TOTAL PROTEIN 5.3 g/dL (6.3-8.3)
[2017-04-28] MEDS: (Novolin R) Insulin Human Regular 100 units/ml vial SC SCH ×4 (07:56→21:14)
[2017-04-28 08:25] VITALS: RESP 20
[2017-04-28] MEDS: Sucralfate 1 gm/10 ml Oral Susp UD PO SCH ×4 (10:10→21:12)
[2017-04-28] MEDS: Pantoprazole 40 mg EC Tab PO SCH (10:11)
[2017-04-28] MEDS: Oxybutynin XL 10 mg Tab PO SCH (10:14)
[2017-04-28] MEDS: Hydrocodone/Acetaminophen 5 mg /300 mg Tab PO PRN ×2 (14:55→21:19)
--- NOTE | 2017-04-28 15:34 | CP.PCM.PN ---
Subjective - Date & Time of Evaluation Date of Evaluation: 04/28/17 Time of Evaluation: 10:00 - Subjective Subjective: PGY 2 Med Note- Dr. Gutierres's service Pt seen and examined. Patient appears down. Patient apparently has been sleeping more. A review of systems addressed and negative at this time with regards to headaches, subjective fevers or chills, or paresthesias at this time. Objective - Vital Signs/Intake and Output Vital Signs (last 24 hours): Temp Pulse Resp BP Pulse Ox 98.2 F 98 H 20 132/78 98 04/28/17 08:00 04/28/17 08:00 04/28/17 08:00 04/28/17 10:10 04/28/17 08:00 Intake and Output: 04/28/17 04/28/17 06:59 18:59 Intake Total 640 500 Output Total 600 Balance 40 500 - Medications Medications: Current Medications Acetaminophen (Tylenol 325mg Tab) 650 mg PO Q6 PRN PRN Reason: Pain, Mild (1-3) Acetaminophen/Hydrocodone Bitart (Vicodin 5 Mg-300 Mg) 1 tab PO Q4H PRN PRN Reason: Pain, moderate (4-7) Stop: 05/03/17 23:59 Last Admin: 04/28/17 14:55 Dose: 1 tab Bupropion HCl (Wellbutrin) 100 mg PO DAILY [facility] Last Admin: 04/28/17 10:14 Dose: 100 mg Ciprofloxacin (Cipro) 500 mg PO Q12 [facility] Last Admin: 04/28/17 10:11 Dose: 500 mg Cyproheptadine HCl (Periactin) 4 mg PO DAILY [facility] Last Admin: 04/28/17 10:14 Dose: 4 mg Dextrose (Dextrose 50% Inj) 0 ml IV STAT PRN; Protocol PRN Reason: Hyglycemia Protocol Dextrose (Glutose 15) 0 gm PO ONCE PRN; Protocol PRN Reason: Hypoglycemia Protocol Diltiazem HCl (Cardizem Cd) 120 mg PO DAILY [facility] Last Admin: 04/27/17 18:25 Dose: 120 mg Hydrocortisone Sodium Succinate (Solu-Cortef) 100 mg IV DAILY [facility] Last Admin: 04/28/17 10:15 Dose: 100 mg Hydrocortisone Sodium Succinate (Solu-Cortef) 50 mg IV HS [facility] Last Admin: 04/27/17 21:58 Dose: 50 mg Insulin Human Regular (Novolin R) 0 unit SC ACHS [facility] PRN Reason: Protocol Last Admin: 04/28/17 12:08 Dose: 1 unit Levothyroxine Sodium (Synthroid) 100 mcg PO DAILY@0630 [facility] Last Admin: 04/28/17 06:46 Dose: 100 mcg Lisinopril (Zestril) 10 mg PO DAILY [facility] Last Admin: 04/28/17 10:12 Dose: 10 mg Loperamide HCl (Imodium) 2 mg PO QID PRN PRN Reason: Diarrhea Metformin HCl (Glucophage) 500 mg PO BID [facility] Last Admin: 04/28/17 10:11 Dose: 500 mg Metoprolol Tartrate (Lopressor) 25 mg PO BID [facility] Last Admin: 04/28/17 10:10 Dose: 25 mg Ondansetron HCl (Zofran Tab) 4 mg PO Q4 PRN PRN Reason: Nausea/Vomiting Last Admin: 04/28/17 10:14 Dose: 4 mg Ondansetron HCl (Zofran Inj) 4 mg IVP Q6 PRN PRN Reason: Nausea/Vomiting Last Admin: 04/27/17 08:25 Dose: 4 mg Oxybutynin Chloride (Ditropan Xl) 10 mg PO DAILY [facility] Last Admin: 04/28/17 10:14 Dose: 10 mg Pantoprazole Sodium (Protonix Ec Tab) 40 mg PO DAILY [facility] Last Admin: 04/28/17 10:11 Dose: 40 mg Rosuvastatin Calcium (Crestor) 20 mg PO HS [facility] Last Admin: 04/27/17 21:59 Dose: 20 mg Saccharomyces Boulardii (Florastor) 250 mg PO Q12 [facility] Last Admin: 04/27/17 21:59 Dose: 250 mg Sennosides (Senokot Tab) 8.6 mg PO HS PRN Sucralfate (Carafate Oral Susp) 1 gm PO QID [facility] Last Admin: 04/28/17 13:31 Dose: 1 gm Tetrahydrozoline HCl/Zinc Sulfate (Visine 0.05% Opht Soln) 0 ml OU Q1H PRN PRN Reason: eye pain Last Admin: 04/27/17 21:58 Dose: 1 drop Zolpidem Tartrate (Ambien) 5 mg PO HS PRN PRN Reason: Insomnia Last Admin: 04/27/17 22:11 Dose: 5 mg - Labs Labs: 04/28/17 07:06 04/28/17 07:06 PT 13.0 SECONDS (9.7-12.2) H 04/28/17 07:06 INR 1.2 04/28/17 07:06 APTT 34 SECONDS (21-34) 04/22/17 06:05 - Constitutional Appears: Non-toxic, No Acute Distress - Head Exam Head Exam: ATRAUMATIC, NORMAL INSPECTION, NORMOCEPHALIC - Eye Exam Eye Exam: EOMI Pupil Exam: NORMAL ACCOMODATION - ENT Exam ENT Exam: Mucous Membranes Moist - Neck Exam Neck Exam: Full ROM - Respiratory Exam Respiratory Exam: NORMAL BREATHING PATTERN - Cardiovascular Exam Cardiovascular Exam: +S1, +S2 - GI/Abdominal Exam GI & Abdominal Exam: Soft, Normal Bowel Sounds - Extremities Exam Extremities Exam: Full ROM, Normal Capillary Refill - Back Exam Back Exam: Full ROM - Neurological Exam Neurological Exam: Alert, Awake, Oriented x3 - Psychiatric Exam Psychiatric exam: Normal Affect, Normal Mood - Skin Skin Exam: Dry, Normal Color, Warm Assessment and Plan - Assessment and Plan (Free Text) Assessment: UTI (urinary tract infection) -Continue cipro 500 q 12 - Add on Florastor -When stable for discharge- patient to continue cipro outpatient Anemia; chronic and stable -continue to monitor Nausea & vomiting -continue zofran -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 Patient has been taking very high dose steroids for fibromyalgia -will give 100mg IV hydrocortisone AM and 50mg PM -can outpatient take 50mg morning PO and 25mg PO nighttime as outpatient -will monitor electrolyte abnormalities as such Diabetes mellitus Home metformin 500mg bid, accu checks, sliding scale, hypoglycemia protocol, moderate carb consistent diet -will likely need more insulin with the high dose steroids History of pulmonary embolus (PE) Warfarin 2mg once a day, follow up morning INR INR 1.2 Hypothyroid Synthroid home dose T4 high, TSH above normal limits however patient feels controlled with symptoms CHF (congestive heart failure) Assessment & Plan: Lisinopril 10mg, Cardizem 120mg, and Lopressor 25mg daily. HTN (hypertension) Assessment & Plan: Lopressor 25mg bid, Zestril 10mg, prn hydralazine 10mg Depression Assessment & Plan: Wellbutrin 100mg Prophylactic measure Assessment & Plan: on Warfarin 2mg, Protonix 40mg, Protonix 40mg Senokot Tab 20mg prn Ambien 5mg prn for sleep aid Per case management- Patient is in the process of receiving authorization for [facility] subacute rehab. All management as per Dr. Gutierres
[2017-04-28] MEDS: Saccharomyces Boulardi 250 mg Cap PO SCH (21:12)
[2017-04-29] MEDS: Levothyroxine 100 MCG TAB PO SCH (06:32)
[2017-04-29 07:39] LABS: INR 1.4
[2017-04-29 07:47] LABS: BASO # 0.1 K/uL (0.0-0.2); BASO % 0.4 % (0.0-2.0); EOS % 0.2 % (0.0-4.0); HEMATOCRIT 28.3 % (34.0-47.0); LYMPH # 3.5 K/uL (1.0-4.3); LYMPH % 28.7 % (20.0-40.0); MEAN CELL VOLUME 74.8 fL (81.0-99.0); MEAN CORPUSCULAR HEMOGLOBIN 23.6 pg (27.0-31.0); MEAN CORPUSCULAR HGB CONC 31.5 g/dL (33.0-37.0); MEAN PLATELET VOLUME 8.8 fL (7.2-11.7); MONO # 0.9 K/uL (0.0-0.8); MONO % 7.4 % (0.0-10.0); NRBC % 0.1 % (0.0-2.0); RED CELL DISTRIBUTION WIDTH 15.8 % (11.5-14.5); WHITE BLOOD COUNT 12.3 K/uL (4.8-10.8)
[2017-04-29 08:14] LABS: CHLORIDE 104 mmol/L (98-107)
[2017-04-29 08:15] LABS: POTASSIUM 3.3 mmol/L (3.6-5.2); SODIUM 135 mmol/L (132-148)
[2017-04-29 08:17] LABS: AST/SGOT 23 U/L (14-36); BILIRUBIN,TOTAL 0.3 mg/dL (0.2-1.3); CARBON DIOXIDE 19 mmol/L (22-30); GFR AFRICAN-AMERICAN > 60
[2017-04-29 08:18] LABS: ALB/GLOB RATIO 1.3 (1.0-2.1); ALKALINE PHOSPHATASE 70 U/L (38-126); ALT/SGPT 30 U/L (9-52); BLOOD UREA NITROGEN 30 mg/dL (7-17); GLUCOSE,RANDOM 113 mg/dL (65-105); TOTAL PROTEIN 5.1 g/dL (6.3-8.3)
[2017-04-29] MEDS: (Novolin R) Insulin Human Regular 100 units/ml vial SC SCH ×4 (08:19→21:32)
[2017-04-29 09:01] LABS: MAGNESIUM 0.9 mg/dL (1.6-2.3)
[2017-04-29] MEDS: Magnesium Sulfate 1 gm in D5W 1 GM/100 ML BAG IVPB SCH ×2 (10:19→10:55)
[2017-04-29] MEDS: Saccharomyces Boulardi 250 mg Cap PO SCH ×3 (10:21→22:42)
[2017-04-29] MEDS: Oxybutynin XL 10 mg Tab PO SCH (10:21)
[2017-04-29] MEDS: diltiaZEM 120 mg/24 Hours CD Cap PO SCH (10:21)
[2017-04-29] MEDS: Sucralfate 1 gm/10 ml Oral Susp UD PO SCH ×2 (10:23→14:19)
[2017-04-29] MEDS: Pantoprazole 40 mg EC Tab PO SCH (10:23)
[2017-04-29] MEDS ORDERED: Potassium Chloride 20 mEq ER Tab PO ONE (10:45)
--- NOTE | 2017-04-29 13:54 | CP.PCM.PN ---
Subjective - Date & Time of Evaluation Date of Evaluation: 04/29/17 Time of Evaluation: 13:50 - Subjective Subjective: Progress note. Attending: Dr. Gutierres. Pt seen and examined at bedside. No acute distress. No events overnight. No fevers, chills, vomiting, diarrhea, sob, cp. Objective - Vital Signs/Intake and Output Vital Signs (last 24 hours): Temp Pulse Resp BP Pulse Ox 98.3 F 103 H 20 123/64 95 04/29/17 00:00 04/29/17 00:00 04/29/17 00:00 04/29/17 10:20 04/29/17 00:00 Intake and Output: 04/29/17 04/29/17 06:59 18:59 Intake Total 120 Balance 120 - Medications Medications: Current Medications Acetaminophen (Tylenol 325mg Tab) 650 mg PO Q6 PRN PRN Reason: Pain, Mild (1-3) Acetaminophen/Hydrocodone Bitart (Vicodin 5 Mg-300 Mg) 1 tab PO Q4H PRN PRN Reason: Pain, moderate (4-7) Stop: 05/03/17 23:59 Last Admin: 04/28/17 21:19 Dose: 1 tab Bupropion HCl (Wellbutrin) 100 mg PO DAILY [facility] Last Admin: 04/29/17 10:23 Dose: 100 mg Ciprofloxacin (Cipro) 500 mg PO Q12 [facility] Last Admin: 04/29/17 10:19 Dose: 500 mg Cyproheptadine HCl (Periactin) 4 mg PO DAILY [facility] Last Admin: 04/29/17 10:21 Dose: 4 mg Dextrose (Dextrose 50% Inj) 0 ml IV STAT PRN; Protocol PRN Reason: Hyglycemia Protocol Dextrose (Glutose 15) 0 gm PO ONCE PRN; Protocol PRN Reason: Hypoglycemia Protocol Diltiazem HCl (Cardizem Cd) 120 mg PO DAILY [facility] Last Admin: 04/29/17 10:21 Dose: 120 mg Hydrocortisone Sodium Succinate (Solu-Cortef) 100 mg IV DAILY [facility] Last Admin: 04/29/17 10:22 Dose: 100 mg Hydrocortisone Sodium Succinate (Solu-Cortef) 50 mg IV HS [facility] Last Admin: 04/28/17 21:18 Dose: 50 mg Insulin Human Regular (Novolin R) 0 unit SC ACHS [facility] PRN Reason: Protocol Last Admin: 04/29/17 12:24 Dose: 2 unit Levothyroxine Sodium (Synthroid) 100 mcg PO DAILY@0630 [facility] Last Admin: 04/29/17 06:32 Dose: 100 mcg Lisinopril (Zestril) 10 mg PO DAILY [facility] Last Admin: 04/29/17 10:19 Dose: 10 mg Loperamide HCl (Imodium) 2 mg PO QID PRN PRN Reason: Diarrhea Metformin HCl (Glucophage) 500 mg PO BID [facility] Last Admin: 04/29/17 10:19 Dose: 500 mg Metoprolol Tartrate (Lopressor) 25 mg PO BID [facility] Last Admin: 04/29/17 10:20 Dose: 25 mg Ondansetron HCl (Zofran Tab) 4 mg PO Q4 PRN PRN Reason: Nausea/Vomiting Last Admin: 04/28/17 10:14 Dose: 4 mg Ondansetron HCl (Zofran Inj) 4 mg IVP Q6 PRN PRN Reason: Nausea/Vomiting Last Admin: 04/27/17 08:25 Dose: 4 mg Oxybutynin Chloride (Ditropan Xl) 10 mg PO DAILY [facility] Last Admin: 04/29/17 10:21 Dose: 10 mg Pantoprazole Sodium (Protonix Ec Tab) 40 mg PO DAILY [facility] Last Admin: 04/29/17 10:23 Dose: 40 mg Rosuvastatin Calcium (Crestor) 20 mg PO HS [facility] Last Admin: 04/28/17 21:12 Dose: 20 mg Saccharomyces Boulardii (Florastor) 250 mg PO Q12 [facility] Last Admin: 04/29/17 10:21 Dose: 250 mg Sennosides (Senokot Tab) 8.6 mg PO HS PRN Sucralfate (Carafate Oral Susp) 1 gm PO QID [facility] Last Admin: 04/29/17 10:23 Dose: 1 gm Tetrahydrozoline HCl/Zinc Sulfate (Visine 0.05% Opht Soln) 0 ml OU Q1H PRN PRN Reason: eye pain Last Admin: 04/27/17 21:58 Dose: 1 drop Zolpidem Tartrate (Ambien) 5 mg PO HS PRN PRN Reason: Insomnia Last Admin: 04/28/17 21:11 Dose: 5 mg - Labs Labs: 04/29/17 07:16 04/29/17 07:16 PT 15.7 SECONDS (9.7-12.2) H 04/29/17 07:16 INR 1.4 04/29/17 07:16 APTT 34 SECONDS (21-34) 04/22/17 06:05 - Constitutional Appears: Non-toxic, No Acute Distress - Head Exam Head Exam: ATRAUMATIC, NORMAL INSPECTION, NORMOCEPHALIC - Eye Exam Eye Exam: EOMI - ENT Exam ENT Exam: Mucous Membranes Moist - Neck Exam Neck Exam: Full ROM, Normal Inspection - Respiratory Exam Respiratory Exam: NORMAL BREATHING PATTERN. absent: Respiratory Distress - Cardiovascular Exam Cardiovascular Exam: +S1, +S2 - GI/Abdominal Exam GI & Abdominal Exam: Soft, Normal Bowel Sounds. 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 Patient has been taking very high dose steroids for fibromyalgia -will give 100mg IV hydrocortisone AM and 50mg PM -can outpatient take 50mg morning PO and 25mg PO nighttime as outpatient -will monitor electrolyte abnormalities as such Diabetes mellitus Home metformin 500mg bid, accu checks, sliding scale, hypoglycemia protocol, moderate carb consistent diet -will likely need more insulin with the high dose steroids History of pulmonary embolus (PE) will give warfarin 2.5 today INR subtherapeutic f/u INR tomorrow Hypothyroid Synthroid home dose T4 high, TSH above normal limits however patient feels controlled with symptoms CHF (congestive heart failure) Assessment & Plan: Lisinopril 10mg, Cardizem 120mg, and Lopressor 25mg daily. HTN (hypertension) Assessment & Plan: Lopressor 25mg bid, Zestril 10mg, prn hydralazine 10mg Depression Assessment & Plan: Wellbutrin 100mg Prophylactic measure Assessment & Plan: on Warfarin 2.5 mg, Protonix 40mg, Protonix 40mg Senokot Tab 20mg prn Ambien 5mg prn for sleep aid Per case management- Patient is in the process of receiving authorization for [facility] subacute rehab. All management as per Dr. Gutierres
[2017-04-29] MEDS: Hydrocodone/Acetaminophen 5 mg /300 mg Tab PO PRN (14:19)
[2017-04-29] MEDS ORDERED: Magnesium Citrate Oral SOL (300 ml) PO ONE (15:15)
[2017-04-29] MEDS ORDERED: Magnesium Oxide 400 mg Tab UD PO ONE (18:30)
[2017-04-29] MEDS ORDERED: Hydrocodone/Acetaminophen 5 mg /300 mg Tab PO PRN (21:58)
[2017-04-30] MEDS: Levothyroxine 100 MCG TAB PO SCH (06:16)
[2017-04-30 07:52] VITALS: BP 148/85; PULSE 78; TEMP 98.3; O2SAT 95
[2017-04-30] MEDS: (Novolin R) Insulin Human Regular 100 units/ml vial SC SCH ×2 (08:05→11:22)
[2017-04-30 08:17] LABS: BASO % 0.3 % (0.0-2.0); HEMATOCRIT 29.5 % (34.0-47.0); INR 1.5; LYMPH # 2.9 K/uL (1.0-4.3); LYMPH % 26.1 % (20.0-40.0); MEAN CELL VOLUME 74.6 fL (81.0-99.0); MEAN CORPUSCULAR HEMOGLOBIN 23.6 pg (27.0-31.0); MEAN CORPUSCULAR HGB CONC 31.6 g/dL (33.0-37.0); MEAN PLATELET VOLUME 8.4 fL (7.2-11.7); MONO # 0.9 K/uL (0.0-0.8); MONO % 7.9 % (0.0-10.0); RED CELL DISTRIBUTION WIDTH 16.2 % (11.5-14.5)
[2017-04-30 08:44] LABS: CHLORIDE 105 mmol/L (98-107); POTASSIUM 3.6 mmol/L (3.6-5.2); SODIUM 135 mmol/L (132-148)
[2017-04-30 08:46] LABS: GFR AFRICAN-AMERICAN > 60
[2017-04-30 08:47] LABS: ALB/GLOB RATIO 1.3 (1.0-2.1); ALKALINE PHOSPHATASE 74 U/L (38-126); ALT/SGPT 33 U/L (9-52); AST/SGOT 32 U/L (14-36); BILIRUBIN,TOTAL 0.4 mg/dL (0.2-1.3); BLOOD UREA NITROGEN 27 mg/dL (7-17); CALCIUM 8.3 mg/dl (8.6-10.4); CARBON DIOXIDE 18 mmol/L (22-30); GLUCOSE,RANDOM 123 mg/dL (65-105); TOTAL PROTEIN 5.2 g/dL (6.3-8.3)
[2017-04-30] MEDS: Saccharomyces Boulardi 250 mg Cap PO SCH (09:52)
[2017-04-30] MEDS: diltiaZEM 120 mg/24 Hours CD Cap PO SCH (09:52)
[2017-04-30] MEDS: Oxybutynin XL 10 mg Tab PO SCH (09:52)
[2017-04-30] MEDS: Pantoprazole 40 mg EC Tab PO SCH (09:53)
--- NOTE | 2017-05-07 11:31 | DS ---
SUMMARY: The patient chief complaint weakness, fatigue, tiredness. The patient was found to have UTI. 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 Given hydrocortisone, IV fluid, and antibiotics. Showed improvement, discharged, to follow up as an outpatient. Angel Gutierres MD
== END 2017-04-30 16:30 | disposition home or self-care (01) | DRG 690 ==
LOC: C.ER 13:19 → C.9E 14:53 → C.3T 15:30 → C.6T 18:40 → C.3T 04-28 00:34
PROVIDERS: ADMIT Internal Medicine Pulmonary Disease; ATTEND Internal Medicine Pulmonary Disease
DX: N39.0 Urinary tract infection, site not specified (principal); I11.0 Hypertensive heart disease with heart failure; E24.9 Cushing's syndrome, unspecified; E87.1 Hypo-osmolality and hyponatremia; I50.9 Heart failure, unspecified; E11.9 Type 2 diabetes mellitus without complications; B96.20 Unspecified Escherichia coli [E. coli] as the cause of diseases classified elsewhere; J44.9 Chronic obstructive pulmonary disease, unspecified; D64.9 Anemia, unspecified; M06.9 Rheumatoid arthritis, unspecified; R32 Unspecified urinary incontinence; E87.6 Hypokalemia; E03.9 Hypothyroidism, unspecified; M79.7 Fibromyalgia; F32.9 Major depressive disorder, single episode, unspecified; E86.0 Dehydration

== ENCOUNTER 2017-12-04 11:02 | Inpatient (IN) | payer BC, MEDICARE ==
[2017-12-04 11:02] VITALS: BMI 29.9
--- NOTE | 2017-12-04 11:47 | C.PDOC ---
History Of Present Illness 62-year-old female, PMHx includes Fibromyalgia, Rheumatoid Arthritis , Diabetes , Hypertension, Anxiety (on Valium) and Pulmonary Embolism (on Coumadin) presents to the emergency department with complaints of generalized back pain and inability to take care of herself secondary to debilitating pain and frequent falls. Patient was discharged from [place] yesterday after being evaluated for chest pain. She denies any nausea/vomiting, numbness/weakness, bladder/bowel incontinence, headache, dizziness, or any other associated symptoms. No other complaints at this time. Chief Complaint (Nursing): Back Pain History Per: Patient History/Exam Limitations: no limitations Onset/Duration Of Symptoms: Hrs Current Symptoms Are (Timing): Still Present Severity: Moderate Past Medical History Reviewed: Historical Data, Nursing Documentation, Vital Signs Vital Signs: Last Vital Signs Temp 97.6 F 12/04/17 11:10 Pulse 84 12/04/17 14:19 Resp 20 12/04/17 14:19 BP 156/69 H 12/04/17 14:19 Pulse Ox 96 12/04/17 14:22 - Medical History PMH: Anemia, Anxiety, Arthritis, Asthma, Cardia Arrhythmia, CHF, COPD, Depression, Diabetes, Fibromyalgia, Fractures (R HIP), Gall Bladder Disease, HTN , Hypercholesterolemia, Hyperlipidemia, Hypothyroidism, Pulmonary Embolism (on Coumadin W/ IVC filter), Rheumatoid Arthritis Surgical History: Back Surgery, Cholecystectomy - [facility] Procedures CENTRAL VENOUS CATHETER PLACEMENT WITH GUIDANCE (09/28/14) ENDOSC POLYPECTOMY OF LG INTEST (09/08/14) ESOPHAGOGASTRODUODENOSCOPY [EGD] W/CLOSED BIOPSY (09/08/14) EXCISION OF STOMACH, ENDO, DIAGN (11/19/15) REPOSITION R UP FEMUR WITH INTRAMED FIX, OPEN APPROACH (03/14/17) SPINAL CANAL EXPLOR NEC (09/08/14) Family History: States: No Known Family Hx - Social History Hx Tobacco Use: No Hx Alcohol Use: No Hx Substance Use: No - Immunization History Hx Tetanus Toxoid Vaccination: Yes Hx Influenza Vaccination: No Hx Pneumococcal Vaccination: No Review Of Systems Constitutional: Negative for: Fever, Chills Cardiovascular: Negative for: Chest Pain, Palpitations Respiratory: Negative for: Shortness of Breath Gastrointestinal: Negative for: Nausea, Vomiting Genitourinary: Negative for: Incontinence Musculoskeletal: Positive for: Back Pain Skin: Negative for: Rash Neurological: Negative for: Weakness, Numbness, Headache, Dizziness Physical Exam - Physical Exam Appears: Non-toxic, Other (Moderate distress) Skin: Normal Color, Warm, Dry, No Diaphoretic, No Rash Head: Atraumatic, Normacephalic Eye(s): bilateral: Normal Inspection, PERRL, EOMI Nose: Normal Oral Mucosa: Moist Lips: Normal Appearing Neck: Normal ROM Chest: Symmetrical Cardiovascular: Rhythm Regular, No Murmur Respiratory: Normal Breath Sounds, No Accessory Muscle Use Gastrointestinal/Abdominal: Soft, No Tenderness Back: Paraspinal Tenderness (diffuse) Extremity: Normal ROM, No Pedal Edema, No Deformity, No Swelling Neurological/Psych: Oriented x3, Normal Speech ED Course And Treatment - Laboratory Results Result Diagrams: 12/04/17 14:10 12/04/17 14:10 O2 Sat by Pulse Oximetry: 96 (RA) Pulse Ox Interpretation: Normal - Other Rad cxr X-Ray: Viewed By Me, Read By Radiologist Interpretation: Accession No. : [id number]. Patient Name / ID : STEPHANIE MONROY / [id number]. Exam Date : 12/04/2017 13:28:16 ( Approved ). Study Comment : Sex / Age : F / [id number]. Creator : Chong Schofield MD. Dictator : Chong Schofield MD. Haulage Boss : On Line Csr : Chong Schofield MD. Approver2 : Report Date : 12/04/2017 13:47:13. My Comment : . Chest x- ray single frontal view. History: Shortness of breath. Comparison: 2014. Findings: Elevated right hemidiaphragm. Patchy increased markings at the left lung base suggestive for infiltrate and or atelectasis with trace left pleural effusion. Enlarged ectatic aorta. Cardiomegaly. IVC filter in place. Degenerative changes in the spine and shoulders. Impression: Elevated right hemidiaphragm. Patchy increased markings at the left lung base suggestive for infiltrate and or atelectasis with trace left pleural effusion. Enlarged ectatic aorta. Cardiomegaly. IVC filter in place. Progress Note: On re-evaluation patient still c/o severe low back pain. case was d/w patient's PMD who accepted her to his service for observation and pain control. Medical Decision Making Medical Decision Making: Impression Back pain Plan: * Bloodwork * Chest X-Ray * Morphine, IVF * UA * Reassess and Disposition Disposition - Disposition Disposition: HOSPITALIZED Disposition Time: 15:16 Condition: FAIR Forms: [facility] (Albanian) - Clinical Impression Clinical Impression: Intractable low back pain - Scribe Statement The provider has reviewed the documentation as recorded by the Scribe (Ashlie Chavez) All medical record entries made by the Scribe were at my direction and personally dictated by me. I have reviewed the chart and agree that the record accurately reflects my personal performance of the history, physical exam, medical decision making, and the department course for this patient. I have also personally directed, reviewed, and agree with the discharge instructions and disposition. Decision To Admit - Pt Status Changed To: Hospital Disposition Of: Observation - . Bed Request Type: Regular Admitting Physician: Angel Gutierres Patient Diagnosis: Intractable low back pain
[2017-12-04] MEDS ORDERED: Sodium Chloride 0.9% 500 ML IV STA (13:02)
--- NOTE | 2017-12-04 13:48 | RAD ---
Chest x-ray single frontal view History: Shortness of breath. Comparison: 10/04/2014 Findings: Elevated right hemidiaphragm. Patchy increased markings at the left lung base suggestive for infiltrate and or atelectasis with trace left pleural effusion. Enlarged ectatic aorta. Cardiomegaly. IVC filter in place. Degenerative changes in the spine and shoulders. Impression: Elevated right hemidiaphragm. Patchy increased markings at the left lung base suggestive for infiltrate and or atelectasis with trace left pleural effusion. Enlarged ectatic aorta. Cardiomegaly. IVC filter in place.
[2017-12-04] MEDS ORDERED: Sodium Chloride 0.9% 500 ML IV ONE (14:08)
[2017-12-04] MEDS ORDERED: Morphine 4 MG/ML VIAL ONE (14:08)
[2017-12-04 14:14] LABS: BASO # 0.1 K/uL (0.0-0.2); BASO % 0.7 % (0.0-2.0); EOS % 0.4 % (0.0-4.0); HEMOGLOBIN 10.3 g/dL (11.0-16.0); LYMPH # 1.7 K/uL (1.0-4.3); LYMPH % 21.5 % (20.0-40.0); MEAN CELL VOLUME 79.5 fL (81.0-99.0); MEAN CORPUSCULAR HEMOGLOBIN 25.2 pg (27.0-31.0); MEAN CORPUSCULAR HGB CONC 31.8 g/dL (33.0-37.0); MEAN PLATELET VOLUME 8.2 fL (7.2-11.7); MONO # 0.7 K/uL (0.0-0.8); MONO % 8.8 % (0.0-10.0); NEUT # 5.5 K/uL (1.8-7.0); NEUT % 68.6 % (50.0-75.0); NRBC % 0.1 % (0.0-2.0); RBC 4.07 Mil/uL (3.80-5.20)
[2017-12-04 14:25] LABS: INR 1.4; PROTHROMBIN TIME 15.3 SECONDS (9.7-12.2)
[2017-12-04 14:27] LABS: ALB/GLOB RATIO 1.1 (1.0-2.1); CALCIUM 8.3 mg/dl (8.6-10.4); GFR AFRICAN-AMERICAN > 60; GFR NON-AFRICAN AMERICAN > 60
[2017-12-04 14:34] LABS: ALT/SGPT 31 U/L (9-52); AST/SGOT 39 U/L (14-36); BLOOD UREA NITROGEN 31 mg/dL (7-17)
[2017-12-04 14:42] LABS: SQUAMOUS EPITHIAL 6 /hpf (0-5); URINE BACTERIA OCC (<OCC); URINE BILIRUBIN NEGATIVE (NEGATIVE); URINE BLOOD NEGATIVE (NEGATIVE); URINE CLARITY Clear (Clear); URINE COLOR Yellow (YELLOW); URINE GLUCOSE (UA) 3+ mg/dL (Normal); URINE LEUKOCYTE ESTERASE NEG Leu/uL (Negative); URINE PROTEIN NEGATIVE (NEGATIVE); URINE UROBILINOGEN NORMAL mg/dL (0.2-1.0)
[2017-12-04] MEDS ORDERED: Hydrocodone/Acetaminophen 5 mg /300 mg Tab PO PRN (18:18)
[2017-12-04] MEDS: Oxycodone/Acetaminophen 5/325 mg Tab PO PRN (22:22)
[2017-12-05] MEDS: Levothyroxine 100 MCG TAB PO SCH (05:49)
[2017-12-05 08:09] LABS: HEMOGLOBIN 10.2 g/dL (11.0-16.0); MEAN CELL VOLUME 79.6 fL (81.0-99.0); MEAN CORPUSCULAR HEMOGLOBIN 25.9 pg (27.0-31.0); MEAN CORPUSCULAR HGB CONC 32.6 g/dL (33.0-37.0); MEAN PLATELET VOLUME 8.1 fL (7.2-11.7); RBC 3.93 Mil/uL (3.80-5.20); RED CELL DISTRIBUTION WIDTH 14.3 % (11.5-14.5); WHITE BLOOD COUNT 7.8 K/uL (4.8-10.8)
[2017-12-05 08:10] LABS: INR 1.3; PROTHROMBIN TIME 14.6 SECONDS (9.7-12.2)
[2017-12-05] MEDS: Oxycodone/Acetaminophen 5/325 mg Tab PO PRN (08:15)
[2017-12-05 08:35] LABS: ALB/GLOB RATIO 1.1 (1.0-2.1); ALT/SGPT 42 U/L (9-52); AST/SGOT 47 U/L (14-36); BLOOD UREA NITROGEN 29 mg/dL (7-17); CALCIUM 8.4 mg/dl (8.6-10.4); GFR AFRICAN-AMERICAN > 60; GFR NON-AFRICAN AMERICAN > 60
[2017-12-05] MEDS: Potassium Chloride 20 mEq ER Tab PO SCH (09:15)
[2017-12-05] MEDS: Pantoprazole 40 mg EC Tab PO SCH (09:15)
[2017-12-05] MEDS: Magnesium Oxide 400 mg Tab UD PO SCH ×2 (09:16→17:58)
[2017-12-05] MEDS: diltiaZEM 120 mg/24 Hours CD Cap PO SCH (09:18)
--- NOTE | 2017-12-05 10:45 | RAD ---
Lumbar spine three views History: Back pain. Comparison: None available. Findings: Moderate retrolisthesis of L3 on L4. Mild retrolisthesis of L2 on L3 and L4 on L5. Prominent hook like anterior osteophyte at the L3-4 level. Milder anterior osteophytosis through the remainder of the lumbar spine. Lower level facet hypertrophy of the lumbar facets. Mild superior endplate concavities of the L1 and L2 vertebral bodies as well as the T11 vertebral body. Correlation with MRI may be helpful to exclude mild compression deformities. Widening of the L4-5 disc space anteriorly. Disc space narrowing at the L3-4 disc space with subchondral sclerosis. Surgical clips in the right upper abdomen. Moderate fecal retention in the colon. Calcified phleboliths in the pelvis. IVC filter in place. Calcification and plaque within the aorta and iliac vessels. Impression: 1. Mild superior endplate concavities of the L1 and L2 vertebral bodies as well as the T11 vertebral body. Correlation with MRI may be helpful to exclude mild compression deformities. 2. Widening of the L4-5 disc space anteriorly. Disc space narrowing at the L3-4 disc space with subchondral sclerosis. 3. Moderate retrolisthesis of L3 on L4. Mild retrolisthesis of L2 on L3 and L4 on L5. 4. Prominent hook like anterior osteophyte at the L3-4 level. Milder anterior osteophytosis through the remainder of the lumbar spine. 5. Lower level facet hypertrophy of the lumbar facets. If pain persists, consider correlation with MRI.
[2017-12-06] MEDS: Levothyroxine 100 MCG TAB PO SCH (05:58)
[2017-12-06] MEDS ORDERED: Glucagon Recombinant 1 mg Inj IM PRN (06:27)
[2017-12-06] MEDS ORDERED: Dextrose 50% SYRINGE Inj (50 ml) IV PRN (06:27)
[2017-12-06] MEDS: Oxycodone/Acetaminophen 5/325 mg Tab PO PRN (07:16)
[2017-12-06 07:18] LABS: INR 1.3; PROTHROMBIN TIME 14.6 SECONDS (9.7-12.2)
--- NOTE | 2017-12-06 08:27 | HP ---
HISTORY OF PRESENT ILLNESS: A 62 year-old female chief complaint back pain. The patient came to the ER, advised admission. The patient had . The patient has history of pulmonary embolism, history of obesity, hypertension, and diabetes. PHYSICAL EXAMINATION: GENERAL: The patient is awake, alert, and oriented. VITAL SIGNS: Temperature 98, pulse 90. HEENT: Within normal limits. NECK: Supple. CHEST: Symmetrical. HEART: Regular. ABDOMEN: Soft. EXTREMITIES: No edema. Patient suffers from back pain. She has weakness and fatigue. Patient bedrest, supportive care, physical therapy. Angel Gutierres MD
--- NOTE | 2017-12-06 09:22 | CP.PCM.PN ---
Subjective - Date & Time of Evaluation Date of Evaluation: 12/06/17 Time of Evaluation: 09:19 - Subjective Subjective: PGY2 Note for Dr. Gutierres; all management as per Dr. Gutierres This patient was seen and examined at bedside; she is extremely tearful on examination; expressed extremely depressed/down mood and hopelessness for life because she is "always sick" and "cannot live a normal life like everyone else" . She denies SI/HI, but is crying throughout the entire interview. She admits to severe pain in her back, that is not relieved by any of the medicines we are giving her. She states she is unable to stand 2/2 to the pain, and has not moved since she got into the hospital. She denies fevers/chills, STEIN, CP, SOB, abdominal pain, N/V/D, dysuria/freq/urg or lower extremity swelling. She has chronic pain in all of her joints. Objective - Vital Signs/Intake and Output Vital Signs (last 24 hours): Temp Pulse Resp BP Pulse Ox 97.9 F 80 20 134/84 96 12/06/17 08:00 12/06/17 08:00 12/06/17 08:00 12/06/17 08:00 12/06/17 08:00 - Medications Medications: Current Medications Hydrocodone Bitart/Acetaminophen (Vicodin 5 Mg-300 Mg) 1 tab PO Q6 PRN PRN Reason: Pain, moderate (4-7) Bupropion HCl (Wellbutrin) 75 mg PO DAILY [facility] Last Admin: 12/05/17 09:18 Dose: 75 mg Colchicine (Colocrys) 0.6 mg PO DAILY [facility] Last Admin: 12/05/17 09:17 Dose: 0.6 mg Dextrose (Dextrose 50% Inj) 0 ml IV STAT PRN; Protocol PRN Reason: Hypoglycemia Protocol Dextrose (Glutose 15) 0 gm PO ONCE PRN; Protocol PRN Reason: Hypoglycemia Protocol Diazepam (Valium) 10 mg PO BID [facility] Last Admin: 12/05/17 17:59 Dose: 10 mg Diltiazem HCl (Cardizem Cd) 120 mg PO DAILY [facility] Last Admin: 12/05/17 09:18 Dose: 120 mg Gabapentin (Neurontin) 300 mg PO TID [facility] Last Admin: 12/05/17 17:58 Dose: 300 mg Glipizide (Glucotrol) 10 mg PO BID [facility] Last Admin: 12/05/17 17:58 Dose: 10 mg Glucagon (Glucagen Diagnostic Kit) 0 mg IM STAT PRN; Protocol PRN Reason: Hypoglycemia Protocol Home Med (Tizanidine [Zanaflex]) 4 mg PO TID [facility] Hydrocortisone (Cortef) 20 mg PO TID [facility] Last Admin: 12/05/17 17:57 Dose: 20 mg Dextrose (Dextrose 5% In Water 1000 Ml) 1,000 mls @ 0 mls/hr IV .Q0M PRN; Protocol; Per Protocol PRN Reason: Hypoglycemia Protocol Insulin Aspart (Novolog) 0 unit SC ACHS [facility] PRN Reason: Protocol Levothyroxine Sodium (Synthroid) 100 mcg PO DAILY@0630 [facility] Last Admin: 12/06/17 05:58 Dose: 100 mcg Lisinopril (Zestril) 10 mg PO DAILY [facility] Last Admin: 12/05/17 09:15 Dose: 10 mg Magnesium Oxide (Mag-Ox) 400 mg PO BID [facility] Last Admin: 12/05/17 17:58 Dose: 400 mg Metoprolol Tartrate (Lopressor) 50 mg PO BID [facility] Last Admin: 12/05/17 17:58 Dose: 50 mg Oxycodone/Acetaminophen (Percocet 5/325 Mg Tab) 2 tab PO Q4H PRN PRN Reason: Pain, severe (8-10) Stop: 12/07/17 18:23 Last Admin: 12/06/17 07:16 Dose: 2 tab Pantoprazole Sodium (Protonix Ec Tab) 40 mg PO DAILY [facility] Last Admin: 12/05/17 09:15 Dose: 40 mg Pneumococcal Polyvalent Vaccine (Pneumovax 23 Vaccine) 0.5 ml IM .ONCE ONE Stop: 12/06/17 10:01 Potassium Chloride (K-Dur 20 Meq Er Tab) 20 meq PO DAILY [facility] Last Admin: 12/05/17 09:15 Dose: 20 meq Rosuvastatin Calcium (Crestor) 10 mg PO HS [facility] Last Admin: 12/05/17 22:02 Dose: 10 mg Sennosides (Senokot Tab) 8.6 mg PO HS [facility] Last Admin: 12/05/17 22:02 Dose: 8.6 mg Zolpidem Tartrate (Ambien) 5 mg PO HS PRN PRN Reason: Insomnia Last Admin: 12/05/17 22:02 Dose: 5 mg - Labs Labs: 12/05/17 07:56 12/05/17 07:56 PT 14.6 SECONDS (9.7-12.2) H 12/06/17 07:02 INR 1.3 12/06/17 07:02 APTT 25 SECONDS (21-34) 12/06/17 07:02 Assessment and Plan - Assessment and Plan (Free Text) Assessment: 62yo F admitted for intractable back pain Depression; severe -c/w buproprion from home -Psych Consult; Dr. 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 -c/w gabapentin and hydrocodone and diazepam -PT/Eval and treat as movement is the best tx avail for fibromyalgia -f/u spinal canal MRI Hypothyroidism -12/02/17 TSH .21 -c/w current levothyroxine; recheck in months Urinary Retention -c/w oxybutynin Previous unprovoked PE/DVT -c/w coumadin 6mg PO HS -follow INR; currently 1.3 Chronic Constipation 2/2 to opoid use -c/w stool softeners HLD -c/w rosuvastatin Gout; chronic -c/w colchicine -check uric acid tomorrow; goal below 8 HTN -c/w diltiazem, lisinopril, and toprol xl Proph -warfarin 4mg tonight; check INR; goal 2-2.5 -pepcid; on chronic high dose steroids All management as per Dr. Gutierres
[2017-12-06] MEDS: Potassium Chloride 20 mEq ER Tab PO SCH (09:29)
[2017-12-06] MEDS: Pantoprazole 40 mg EC Tab PO SCH (09:31)
[2017-12-06] MEDS: diltiaZEM 120 mg/24 Hours CD Cap PO SCH (09:32)
[2017-12-06] MEDS: Magnesium Oxide 400 mg Tab UD PO SCH ×2 (09:32→17:43)
[2017-12-06] MEDS: (Novolog) Insulin Aspart, Recombinant 100 u/ml 10 ml vial SC SCH ×4 (09:43→22:25)
[2017-12-06] MEDS ORDERED: Pneumococcal 23-Valent Vaccine IM ONE (10:00)
[2017-12-06 11:48] LABS: BASO % 0.2 % (0.0-2.0); EOS # 0.1 K/uL (0.0-0.7); EOS % 0.9 % (0.0-4.0); HEMOGLOBIN 10.2 g/dL (11.0-16.0); LYMPH # 2.1 K/uL (1.0-4.3); LYMPH % 23.5 % (20.0-40.0); MEAN CELL VOLUME 80.2 fL (81.0-99.0); MEAN CORPUSCULAR HEMOGLOBIN 25.9 pg (27.0-31.0); MEAN CORPUSCULAR HGB CONC 32.3 g/dL (33.0-37.0); MEAN PLATELET VOLUME 8.3 fL (7.2-11.7); MONO # 0.7 K/uL (0.0-0.8); NEUT # 5.9 K/uL (1.8-7.0); NEUT % 67.4 % (50.0-75.0); NRBC % 0.2 % (0.0-2.0); RBC 3.93 Mil/uL (3.80-5.20); RED CELL DISTRIBUTION WIDTH 14.4 % (11.5-14.5); WHITE BLOOD COUNT 8.7 K/uL (4.8-10.8)
[2017-12-06 12:03] LABS: ALBUMIN 2.7 g/dL (3.5-5.0); BLOOD UREA NITROGEN 36 mg/dL (7-17); CALCIUM 8.2 mg/dl (8.6-10.4); GFR AFRICAN-AMERICAN > 60; GFR NON-AFRICAN AMERICAN > 60
[2017-12-06 12:10] LABS: ALT/SGPT 147 U/L (9-52); AST/SGOT 147 U/L (14-36)
--- NOTE | 2017-12-06 14:25 | PCM.PSYCH ---
Initial Psychiatric Evaluation - Initial Psychiatric Evaluation Type of Admission: Voluntary Legal Status: Capacity Chief Complaint (in patient's own words): "I am feeling sad" History of Present Illness and Precipitating Events: Patient is a 62-year-old female who was admitted for complaints of generalized back pain and inability to take care of herself secondary to debilitating pain and frequent falls. Patient was seen by psychiatry due to patient stating she feels depressed. She states she has been feeling like this since she was diagnosed with fibromyalgia 15 years ago. Patient complains of decreased sleep, decreased interests, decreased energy, decreased concentration, and feeling of guilt because of her chronic pain. She was seen by a psychiatric 15 years ago and was diagnosed with depression but was not given medications for depression. She states she gets Valium from her Primary Care Physician for anxiety in addition to Zoloft and Bupropion. Patient denies suicidal ideations but states she tried to commit suicide 10 years by overdosing on her medications. During that event, she was hospitalized in a hospital in [place] for 1 month. Steven auditory, visual, and tactile hallucinations. Medical Hx: fibromyalgia, generalized osteoarthritis, NIDDM, HTN, anxiety (on Valium), DVT/PE, COPD Surgical Hx: right hip intertroch ORIF IM nail (03/2017), multiple abdominal surgeries for unknown reasons; EMR states cholecystectomy, hysterectomy, appendectomy, 2 back surgeries for unknown reasons. Medications: denies Psych Hx: MDD Fam Hx: unknown Social Hx: denies alcohol and illicit drug use. Admits to smoking 2 PPD for 15 years but quit 10 years ago. Allergies: NKDA Current Medications: Active Medications Generic Name Dose Route Start Last Admin Trade Name Freq PRN Reason Stop Dose Admin Hydrocodone Bitart/Acetaminophen 1 tab 12/04/17 18:18 Vicodin 5 Mg-300 Mg PO Q6 PRN Pain, moderate (4-7) Bupropion HCl 75 mg 12/05/17 10:00 12/06/17 09:32 Wellbutrin PO 75 mg DAILY [facility] Administration Colchicine 0.6 mg 12/05/17 10:00 12/06/17 09:32 Colocrys PO 0.6 mg DAILY [facility] Administration Cyclobenzaprine HCl 5 mg 12/05/17 10:00 12/06/17 14:16 Flexeril PO 5 mg TID [facility] Administration Dextrose 0 ml 12/06/17 06:27 Dextrose 50% Inj IV STAT PRN Hypoglycemia Protocol Protocol Dextrose 0 gm 12/06/17 06:27 Glutose 15 PO ONCE PRN Hypoglycemia Protocol Protocol Diazepam 10 mg 12/05/17 10:00 12/06/17 09:31 Valium PO 10 mg BID [facility] Administration Diltiazem HCl 120 mg 12/05/17 10:00 12/06/17 09:32 Cardizem Cd PO 120 mg DAILY [facility] Administration Famotidine 20 mg 12/06/17 10:00 12/06/17 11:38 Pepcid PO Not Given DAILY [facility] Gabapentin 300 mg 12/05/17 10:00 12/06/17 14:15 Neurontin PO 300 mg TID [facility] Administration Glipizide 10 mg 12/05/17 10:00 12/06/17 09:29 Glucotrol PO 10 mg BID [facility] Administration Glucagon 0 mg 12/06/17 06:27 Glucagen Diagnostic Kit IM STAT PRN Hypoglycemia Protocol Protocol Hydrocortisone 20 mg 12/05/17 10:00 12/06/17 14:16 Cortef PO 20 mg TID [facility] Administration Dextrose 1,000 mls @ 0 mls/hr 12/06/17 06:27 Dextrose 5% In Water 1000 Ml IV .Q0M PRN Hypoglycemia Protocol Protocol Per Protocol Insulin Aspart 0 unit 12/06/17 07:30 12/06/17 11:49 Novolog SC 6 unit ACHS [facility] Administration Protocol Levothyroxine Sodium 100 mcg 12/05/17 06:30 12/06/17 05:58 Synthroid PO 100 mcg DAILY@0630 [facility] Administration Lisinopril 10 mg 12/05/17 10:00 12/06/17 09:30 Zestril PO 10 mg DAILY [facility] Administration Lorazepam 1 mg 12/07/17 12:00 Ativan PO DAILY PRN claustrophobia before MRI Magnesium Oxide 400 mg 12/05/17 10:00 12/06/17 09:32 Mag-Ox PO 400 mg BID [facility] Administration Metoprolol Tartrate 50 mg 12/05/17 10:00 12/06/17 09:30 Lopressor PO 50 mg BID [facility] Administration Oxycodone/Acetaminophen 2 tab 12/04/17 18:22 12/06/17 07:16 Percocet 5/325 Mg Tab PO 12/07/17 18:23 2 tab Q4H PRN Administration Pain, severe (8-10) Pantoprazole Sodium 40 mg 12/05/17 10:00 12/06/17 09:31 Protonix Ec Tab PO 40 mg DAILY [facility] Administration Potassium Chloride 20 meq 12/05/17 10:00 12/06/17 09:29 K-Dur 20 Meq Er Tab PO 20 meq DAILY [facility] Administration Rosuvastatin Calcium 10 mg 12/04/17 22:00 12/05/17 22:02 Crestor PO 10 mg HS [facility] Administration Sennosides 8.6 mg 12/04/17 22:00 12/05/17 22:02 Senokot Tab PO 8.6 mg HS [facility] Administration Warfarin Sodium 6 mg 12/06/17 18:00 Coumadin PO 12/06/17 18:01 1800 [facility] Zolpidem Tartrate 5 mg 12/04/17 18:18 12/05/17 22:02 Ambien PO 5 mg HS PRN Administration Insomnia Past Psychiatric History - Past Psychiatric History Previous Treatment History: None Pertinent Medical Hx (Current Medical&Sleep Prob, Allergies): Allergies Allergy/AdvReac Type Severity Reaction Status Date / Time No Known Allergies Allergy Verified 04/21/17 13:29 Levothyroxine [Synthroid] 100 mcg PO DAILY@0630 #30 tab 11/22/15 buPROPion [Wellbutrin] 75 mg PO DAILY 03/14/17 Colchicine [Colcrys] 0.6 mg pe PO DAILY 04/14/17 Diltiazem HCl [Diltiazem 24Hr ER] 120 mg PO DAILY 04/14/17 Oxybutynin Chloride [Oxybutynin Chloride ER] 10 mg PO DAILY 04/14/17 Pantoprazole [Protonix EC Tab] 40 mg PO DAILY 04/14/17 Sennosides 8.6 mg PO HS 04/21/17 Zolpidem [Ambien] 10 mg PO HS PRN 04/21/17 Lisinopril [Zestril] 10 mg PO DAILY tab 04/26/17 Warfarin [Coumadin] 2 mg PO 1800 tab 04/26/17 Hydrocodone/Acetaminophen [[place] 5-325 Tablet] 1 tab PO Q6 PRN 12/01/17 Hydrocortisone [Cortef] 20 mg PO TID 12/01/17 Metoprolol Tartrate [Lopressor] 50 mg PO BID 12/01/17 Simvastatin [Zocor] 40 mg PO DAILY 12/01/17 diaZEpam [Valium] 10 mg PO BID 12/01/17 tiZANidine [Zanaflex] 4 mg PO TID 12/01/17 Gabapentin [Neurontin] 300 mg PO TID #30 cap 12/03/17 GlipiZIDE [Glucotrol] 10 mg PO BID #60 tab 12/03/17 Magnesium Oxide [Mag-Ox] 400 mg PO BID #4 tab 12/03/17 Potassium Chloride [K-Dur 20] 20 meq PO DAILY #2 tab 12/03/17 Review of Systems - Review of Systems All systems: reviewed and no additional remarkable complaints except - Neurological Neurological: UNREMARKABLE - Psychiatric Psychiatric: Anxiety, Change in Appetite, Depression, Hopelessness. absent: Auditory Hallucinations, Behavioral Changes, Change in Libido, Confusion, Difficulty Concentrating, Hallucinations, Homicidal Ideation, Memory Loss, Suicidal Ideation, Visual Hallucinations, Tactile Hallucinations Mental Status Examination - Personal Presentation Personal Presentation: Looks stated age - Affect Affect: Blunted - Motor Activity Motor Activity: Calm - Reliability in Providing Information Reliability in Providing Information: Good - Speech Speech: Organized - Mood Mood: Depressed - Formal Thought Process Formal Thought Process: No Impairment - Obsessions/Compulsions Obsessions: No Compulsions: No - Cognitive Functions Orientation: Person, Place, Situation, Time Sensorium: Alert Attention/Concentration: Attentive Abstract Thinking: Warren Estimate of Intelligence: Below average Judgement: Imparied, as evidence by: Poor judgement, Imparied, as evidence by: Lack of insight into illness Memory: Recent intact, as evidence by: Ability to recall events of the day - Risk Risk: Diminished functioning - Strength & Assets Inventory Strength & Assets Inventory: Family support DSM 5 DX - DSM 5 DSM 5 Diagnosis: Major Depressive Disorder recurrent severe without psychotic features - Recommended/Plan of Treatment Treatment Recommendations and Plan of Treatment: Major Depressive Disorder recurrent severe without psychotic features CBT Psychoeducation Supportive therapy, group therapy, individual therapy Trazodone 50 mg by mouth daily at bedtime Gabapentin 300 mg po TID Welbutrin 150 mg Po Daily Remeron 15 mg PO QHS
--- NOTE | 2017-12-06 17:17 | MRI ---
PROCEDURE: MRI lumbar spine dated 12/06/2017 HISTORY: Low back pain. COMPARISON: Comparison also made with plain film radiographs of the lumbar spine dated 12/05/2017. Comparison made with prior CT scan of the abdomen and pelvis dated 11/20/2015 which imaged the lumbar spine in 3 planes. TECHNIQUE: Multiecho multiplanar sequences were performed through the lumbar spine without the use of intravenous contrast. . FINDINGS: The at current study reveals localized edema along the anterior inferior corner of the L4 segment the felt to be secondary to type 1 discogenic sclerosis surrounding acute/subacute Schmorl's node. . The slight wedging of the anterior margin of the segment most notably affecting the anterior inferior endplate as well. . Postoperative laminectomy changes seen involving inferior aspect of the L3-L4 and superior aspect of the L4-L5 level. . Multilevel degenerative spondylosis. At the L5-S1 level, there is disc desiccation and minor posterior disc space narrowing. Small central and bilateral disc bulge appears to reaches but does not appear significantly compress the ventral surface of the thecal sac. . Note that there is a tiny annular fissure within mid posterior margin of the disc bulge. Central canal is adequate at this level. Facets are mildly hypertrophic. . Proximal left exit foramen is marginal to adequate. Right exit foramen is adequate. The L5-S1 level, there is posterior disc space narrowing with small central and bilateral disc herniation larger on the left than right with inferior subligamentous extension of disc material over short distance dorsal to the left parasagittal superior 0 1/2 of the L5 segment. The disc results in compression of the ventral surface of the thecal sac with bilateral lateral recess narrowing. The subligamentous disc herniation extends inferiorly and results in compressive effects on the left anterolateral border of the thecal sac and lateral recess stenosis on the left side. There is also compression of the just exited left L5 nerve root. Facets are hypertrophic and flavum buckled. . Disc extends into the left exit foramen with left-sided foraminal stenosis. There is mild encroachment of disc into the of the proximal aspect of the right exit foramen with mild stenosis. At the L3 L4 level, there is marked disc desiccation and disc space narrowing. . In addition, there is a small asymmetric central and right parasagittal disc herniation ridge complex the which extends inferiorly over short distance dorsal to the right superior corner of the L4 segment with compressive effects on the ventral surface of the thecal sac more so on the right than left. . . The residual facets also hypertrophic. The overall central canal does appear due to the laminectomy defect despite disc ridge complex. Exit foramina are stenotic bilaterally right greater than left. . At the L 3 L4 level there is disc desiccation and disc space narrowing. Small irregular disc ridge complex extends into the proximal inferior margins of both exit foramina. The disc results in compressive effects on the ventral surface of the thecal sac however the overall central canal appears adequate the due to the inferior laminectomy defect. Exit foramina are marginal to adequate bilaterally. At the L 1 L2 level there is disc desiccation and disc space narrowing more so along the posterior disc margin. Small central and bilateral disc herniation that compresses the ventral surface of the thecal sac. Central canal is mildly narrowed. Facets are slightly hypertrophic. Exit foramina appear adequate. Conus terminates at approximately the upper L1 level. IMPRESSION: Bilateral laminectomy changes inferior aspect L3-L4 and superior aspect of the L4-L5 levels. Multilevel degenerative spondylosis with disc herniation changes seen at the L 3 L4 level with significant right-sided foraminal stenosis. There also degenerative disc herniation changes seen at the L4-L5 and L2-L3 levels. There is small to medium-sized acute/subacute Schmorl's node anterior inferior L4 endplate associated with surrounding edema and slight anterior loss of the anterior margin of the L4 segment. See above discussion for additional details.
[2017-12-07] MEDS: Levothyroxine 100 MCG TAB PO SCH (06:24)
[2017-12-07 07:36] LABS: BASO % 0.3 % (0.0-2.0); EOS # 0.1 K/uL (0.0-0.7); EOS % 0.8 % (0.0-4.0); HEMOGLOBIN 10.5 g/dL (11.0-16.0); LYMPH # 2.3 K/uL (1.0-4.3); LYMPH % 22.4 % (20.0-40.0); MEAN CELL VOLUME 79.5 fL (81.0-99.0); MEAN CORPUSCULAR HEMOGLOBIN 25.8 pg (27.0-31.0); MEAN CORPUSCULAR HGB CONC 32.4 g/dL (33.0-37.0); MEAN PLATELET VOLUME 8.5 fL (7.2-11.7); MONO # 0.8 K/uL (0.0-0.8); MONO % 7.7 % (0.0-10.0); NEUT % 68.8 % (50.0-75.0); NRBC % 0.1 % (0.0-2.0); RBC 4.06 Mil/uL (3.80-5.20); RED CELL DISTRIBUTION WIDTH 14.2 % (11.5-14.5); WHITE BLOOD COUNT 10.2 K/uL (4.8-10.8)
[2017-12-07 07:51] LABS: ALBUMIN 2.8 g/dL (3.5-5.0); CALCIUM 8.6 mg/dl (8.6-10.4); URIC ACID 5.6 mg/dL (2.2-7.5)
[2017-12-07 07:54] LABS: INR 2.2; PROTHROMBIN TIME 24.6 SECONDS (9.7-12.2)
[2017-12-07] MEDS: (Novolog) Insulin Aspart, Recombinant 100 u/ml 10 ml vial SC SCH ×4 (09:02→21:30)
[2017-12-07] MEDS: Potassium Chloride 20 mEq ER Tab PO SCH (11:15)
[2017-12-07] MEDS: Magnesium Oxide 400 mg Tab UD PO SCH ×2 (11:16→17:15)
[2017-12-07] MEDS: Pantoprazole 40 mg EC Tab PO SCH (11:16)
[2017-12-07] MEDS: diltiaZEM 120 mg/24 Hours CD Cap PO SCH (11:19)
--- NOTE | 2017-12-07 12:39 | MRI ---
PROCEDURE: MR THORACIC SPINE WITHOUT CONTRAST HISTORY: parasthesia and back pain COMPARISON: None available. TECHNIQUE: Multiecho multiplanar sequences were performed through the thoracic spine without the use of intravenous contrast. FINDINGS: ALIGNMENT: There straightening of the thoracic curvature without fracture or spondylolisthesis appreciated. No suspicious matter signal changes are identified. Diffuse disc desiccation is appreciated throughout the intervertebral discs with disc heights adequately maintained as well as vertebral body heights appear prevertebral paraspinal soft tissues appear unremarkable as well as intrinsic signal, course, caliber and overall volume of the thoracic spinal cord. The conus medullaris is identified terminating at the superior endplate of L1. VERTEBRA: As above. MARROW: As above. PARASPINAL SOFT TISSUES: As above. CORD: As above. DISCS: There is no disc herniation, central canal or neural foraminal stenosis appreciated throughout the thoracic spine. . OTHER FINDINGS: None. IMPRESSION: Straightened thoracic curvature without fracture or spondylolisthesis or suspicious matter signal change. No disc herniation, central canal or neural foraminal stenosis throughout the exam. Normal appearing thoracic spinal cord.
--- NOTE | 2017-12-07 12:45 | MRI ---
PROCEDURE: MR CERVICAL SPINE WITHOUT CONTRAST HISTORY: parasthesia and back pain COMPARISON: None available. TECHNIQUE: Multiecho multiplanar sequences were performed through the cervical spine without the use of intravenous contrast. FINDINGS: Cervical curvature is straightened. There is no fracture or spondylolisthesis identified. Diffuse disc desiccation is identified throughout with adequate preservation of the intervertebral disc and vertebral body heights. Cervical spinal cord is normal in overall volume and intrinsic signal with the craniocervical junction appearing intact as well as prevertebral paraspinal soft tissues. Visualized posterior fossa contents appear unremarkable as imaged. Cervicothoracic junction appears unremarkable. C2-C3: No disc herniation, spinal canal stenosis or neural foraminal narrowing. C3-C4: No disc herniation, spinal canal stenosis or neural foraminal narrowing. C4-C5: No disc herniation. Limited disc osteophyte complex is appreciated with lateral osteophytes causing mild right neural foraminal stenosis with none on the left. C5-C6: There is a right lateral disc herniation impinging ventral root and potentially dorsal right nerve roots causing significant right lateral recess stenosis the leaving the majority of the spinal canal adequately patent. This lateral disc herniation overlies the lateral portion of the generalized but mild disc osteophyte complex. Borderline right neural foraminal stenosis none is seen at the left. C6-C7: No disc herniation, spinal canal stenosis or neural foraminal narrowing. C7-T1: No disc herniation, spinal canal stenosis or neural foraminal narrowing. OTHER FINDINGS: None. IMPRESSION: 1. Right lateral disc herniation is seen at C5-6 with an underlying mild disc osteophyte complex stenosing the right lateral recess and impinging ventral and potentially dorsal right nerve roots distally. Borderline right neural foraminal stenosis. Mild right counter clockwise rotation of the cervical cord is appreciate without cord deformity grossly evident. No cord reactive change. 2. Lesser disc osteophyte complex is identified at C4-5 without central canal stenosis. Mild right neural foraminal stenosis appreciated on degenerative basis. 3. Straightened curvature.
--- NOTE | 2017-12-07 14:10 | CP.PCM.PN ---
Subjective - Date & Time of Evaluation Date of Evaluation: 12/07/17 Time of Evaluation: 14:12 - Subjective Subjective: PGY2 Medicine note for Dr. Gutierres; all management as per Dr. Gutierres patient seen and examined at bedside this AM; patient is still depressed; expressed wishes to go to [facility]; patient admits to back pain chronic and still bothersome; denies all other symptoms. Objective - Vital Signs/Intake and Output Vital Signs (last 24 hours): Temp Pulse Resp BP Pulse Ox 98.4 F 101 H 20 148/79 96 12/07/17 07:40 12/07/17 07:40 12/07/17 07:40 12/07/17 11:15 12/07/17 07:40 Intake and Output: 12/07/17 12/07/17 06:59 18:59 Intake Total 420 Balance 420 - Medications Medications: Current Medications Hydrocodone Bitart/Acetaminophen (Vicodin 5 Mg-300 Mg) 1 tab PO Q6 PRN PRN Reason: Pain, moderate (4-7) Bupropion HCl (Wellbutrin) 150 mg PO DAILY [facility] Last Admin: 12/07/17 11:19 Dose: 150 mg Colchicine (Colocrys) 0.6 mg PO DAILY [facility] Last Admin: 12/07/17 11:23 Dose: 0.6 mg Cyclobenzaprine HCl (Flexeril) 5 mg PO TID [facility] Last Admin: 12/07/17 11:21 Dose: 5 mg Dextrose (Dextrose 50% Inj) 0 ml IV STAT PRN; Protocol PRN Reason: Hypoglycemia Protocol Dextrose (Glutose 15) 0 gm PO ONCE PRN; Protocol PRN Reason: Hypoglycemia Protocol Diazepam (Valium) 10 mg PO BID [facility] Last Admin: 12/07/17 11:16 Dose: 10 mg Diltiazem HCl (Cardizem Cd) 120 mg PO DAILY [facility] Last Admin: 12/07/17 11:19 Dose: 120 mg Famotidine (Pepcid) 20 mg PO DAILY [facility] Last Admin: 12/07/17 11:16 Dose: 20 mg Gabapentin (Neurontin) 300 mg PO TID [facility] Last Admin: 12/07/17 11:15 Dose: 300 mg Glipizide (Glucotrol) 10 mg PO BID [facility] Last Admin: 12/07/17 11:16 Dose: 10 mg Glucagon (Glucagen Diagnostic Kit) 0 mg IM STAT PRN; Protocol PRN Reason: Hypoglycemia Protocol Hydrocortisone (Cortef) 20 mg PO TID [facility] Last Admin: 12/07/17 11:24 Dose: 20 mg Hydroxyzine HCl (Atarax) 25 mg PO Q6 PRN PRN Reason: Anxiety Dextrose (Dextrose 5% In Water 1000 Ml) 1,000 mls @ 0 mls/hr IV .Q0M PRN; Protocol; Per Protocol PRN Reason: Hypoglycemia Protocol Insulin Aspart (Novolog) 0 unit SC ACHS [facility] PRN Reason: Protocol Last Admin: 12/07/17 12:18 Dose: 2 unit Levothyroxine Sodium (Synthroid) 100 mcg PO DAILY@0630 [facility] Last Admin: 12/07/17 06:24 Dose: 100 mcg Lisinopril (Zestril) 10 mg PO DAILY [facility] Last Admin: 12/07/17 11:21 Dose: 10 mg Magnesium Oxide (Mag-Ox) 400 mg PO BID [facility] Last Admin: 12/07/17 11:16 Dose: 400 mg Metoprolol Tartrate (Lopressor) 50 mg PO BID [facility] Last Admin: 12/07/17 11:15 Dose: 50 mg Mirtazapine (Remeron) 15 mg PO HS [facility] Last Admin: 12/06/17 22:24 Dose: 15 mg Oxycodone/Acetaminophen (Percocet 5/325 Mg Tab) 2 tab PO Q4H PRN PRN Reason: Pain, severe (8-10) Stop: 12/07/17 18:23 Last Admin: 12/06/17 07:16 Dose: 2 tab Pantoprazole Sodium (Protonix Ec Tab) 40 mg PO DAILY [facility] Last Admin: 12/07/17 11:16 Dose: 40 mg Potassium Chloride (K-Dur 20 Meq Er Tab) 20 meq PO DAILY [facility] Last Admin: 12/07/17 11:15 Dose: 20 meq Rosuvastatin Calcium (Crestor) 10 mg PO HS [facility] Last Admin: 12/06/17 22:24 Dose: 10 mg Sennosides (Senokot Tab) 8.6 mg PO HS [facility] Last Admin: 12/05/17 22:02 Dose: 8.6 mg Trazodone HCl (Desyrel) 50 mg PO HS [facility] Last Admin: 12/06/17 22:23 Dose: 50 mg Warfarin Sodium (Coumadin) 6 mg PO 1800 [facility] Stop: 12/07/17 18:01 Zolpidem Tartrate (Ambien) 5 mg PO HS PRN PRN Reason: Insomnia Last Admin: 12/05/17 22:02 Dose: 5 mg - Labs Labs: 12/07/17 07:20 12/07/17 07:20 PT 24.6 SECONDS (9.7-12.2) H D 12/07/17 07:20 INR 2.2 D 12/07/17 07:20 APTT 25 SECONDS (21-34) 12/06/17 07:02 - Constitutional Appears: Chronically Ill - Head Exam Head Exam: ATRAUMATIC - Eye Exam Eye Exam: EOMI, Scleral icterus - ENT Exam ENT Exam: Mucous Membranes Moist - Neck Exam Neck Exam: Full ROM - Respiratory Exam Respiratory Exam: Clear to Ausculation Bilateral, NORMAL BREATHING PATTERN. absent: Rales, Rhonchi, Wheezes - Cardiovascular Exam Cardiovascular Exam: REGULAR RHYTHM - GI/Abdominal Exam GI & Abdominal Exam: Soft, Normal Bowel Sounds - Extremities Exam Extremities Exam: Full ROM - Back Exam Back Exam: absent: CVA tenderness (L), CVA tenderness (R) - Neurological Exam Neurological Exam: Alert, Awake, Oriented x3 - Psychiatric Exam Psychiatric exam: Depressed (extremely) - Skin Skin Exam: Warm Assessment and Plan - Assessment and Plan (Free Text) Assessment: Assessment: 62yo F admitted for intractable back pain Depression; severe -c/w buproprion from home -Psych Consult; Dr. 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 -c/w gabapentin and hydrocodone and diazepam -PT/Eval and treat as movement is the best tx avail for fibromyalgia -thoracic spinal MRI normal -Cervical spinal MRI shows C5/C6 lateral herniation without any neurological deficits present; osteophyte formation and osteoporosis Hypothyroidism -12/02/17 TSH .21 -c/w current levothyroxine; recheck in months Urinary Retention -c/w oxybutynin Previous unprovoked PE/DVT -c/w coumadin 6mg PO HS -follow INR; currently 1.3 Chronic Constipation 2/2 to opoid use -c/w stool softeners HLD -c/w rosuvastatin Gout; chronic -c/w colchicine -check uric acid tomorrow; goal below 8 HTN -c/w diltiazem, lisinopril, and toprol xl Proph -warfarin 4mg tonight; check INR; goal 2-2.5 -pepcid; on chronic high dose steroids patient should be stable to d/c for [facility]; patient was agreeable to go to [facility] this AM when I talked to her about it she is alone most of the day and needs help with ADL/IADL, cannot walk, and is extremely de-conditioned from chronic steroid use and fibromyalgia; patient will need 24 hour care as she cannot properly advocate and take care of herself. All management as per Dr. Gutierres
[2017-12-08] MEDS: Levothyroxine 100 MCG TAB PO SCH (05:59)
[2017-12-08 07:38] LABS: BASO % 0.4 % (0.0-2.0); EOS % 0.4 % (0.0-4.0); HEMOGLOBIN 9.8 g/dL (11.0-16.0); LYMPH % 21.6 % (20.0-40.0); MEAN CELL VOLUME 79.9 fL (81.0-99.0); MEAN CORPUSCULAR HEMOGLOBIN 25.1 pg (27.0-31.0); MEAN CORPUSCULAR HGB CONC 31.5 g/dL (33.0-37.0); MEAN PLATELET VOLUME 8.1 fL (7.2-11.7); MONO # 0.6 K/uL (0.0-0.8); MONO % 6.7 % (0.0-10.0); NEUT # 6.6 K/uL (1.8-7.0); NEUT % 70.9 % (50.0-75.0); NRBC % 0.2 % (0.0-2.0); RBC 3.91 Mil/uL (3.80-5.20); RED CELL DISTRIBUTION WIDTH 14.5 % (11.5-14.5); WHITE BLOOD COUNT 9.2 K/uL (4.8-10.8)
[2017-12-08 07:49] LABS: ALBUMIN 2.7 g/dL (3.5-5.0); ALT/SGPT 198 U/L (9-52); AST/SGOT 92 U/L (14-36); BLOOD UREA NITROGEN 44 mg/dL (7-17); CALCIUM 9.1 mg/dl (8.6-10.4); GFR AFRICAN-AMERICAN > 60; GFR NON-AFRICAN AMERICAN 50
[2017-12-08 07:53] LABS: PROTHROMBIN TIME 43.4 SECONDS (9.7-12.2)
[2017-12-08] MEDS: (Novolog) Insulin Aspart, Recombinant 100 u/ml 10 ml vial SC SCH ×4 (08:00→22:50)
[2017-12-08] MEDS: Magnesium Oxide 400 mg Tab UD PO SCH ×3 (09:53→19:09)
[2017-12-08] MEDS: Pantoprazole 40 mg EC Tab PO SCH (09:53)
[2017-12-08] MEDS: diltiaZEM 120 mg/24 Hours CD Cap PO SCH (09:54)
--- NOTE | 2017-12-08 10:50 | CP.PCM.PN ---
Subjective - Date & Time of Evaluation Date of Evaluation: 12/08/17 Time of Evaluation: 10:48 - Subjective Subjective: Progress Note for Dr. Gutierres's Service Pt seen and examined at bedside. She appears chronically ill and complains of back pain. States that she is unable to stand/walk. She speaks with Dr. Gutierres in [place] and has extensive concerns about her pain. Her is at bedside and reinforces that her pain is severe but adds that she appears very drowsy from the medications as well. Her INR this morning is 4.0 and she was 6mg warfarin yesterday. Objective - Vital Signs/Intake and Output Vital Signs (last 24 hours): Temp Pulse Resp BP Pulse Ox 98 F 107 H 20 136/81 94 L 12/08/17 08:51 12/08/17 08:51 12/08/17 08:51 12/08/17 09:52 12/08/17 08:51 Intake and Output: 12/08/17 12/08/17 06:59 18:59 Intake Total 580 Balance 580 - Medications Medications: Current Medications Hydrocodone Bitart/Acetaminophen (Vicodin 5 Mg-300 Mg) 1 tab PO Q6 PRN PRN Reason: Pain, moderate (4-7) Last Admin: 12/07/17 14:59 Dose: 1 tab Bupropion HCl (Wellbutrin) 150 mg PO DAILY [facility] Last Admin: 12/08/17 09:50 Dose: 150 mg Colchicine (Colocrys) 0.6 mg PO DAILY [facility] Last Admin: 12/08/17 09:49 Dose: 0.6 mg Cyclobenzaprine HCl (Flexeril) 5 mg PO TID [facility] Last Admin: 12/08/17 09:56 Dose: 5 mg Dextrose (Dextrose 50% Inj) 0 ml IV STAT PRN; Protocol PRN Reason: Hypoglycemia Protocol Dextrose (Glutose 15) 0 gm PO ONCE PRN; Protocol PRN Reason: Hypoglycemia Protocol Diazepam (Valium) 5 mg PO PRN PRN PRN Reason: Pain, moderate (4-7) Diltiazem HCl (Cardizem Cd) 120 mg PO DAILY [facility] Last Admin: 12/08/17 09:54 Dose: 120 mg Famotidine (Pepcid) 20 mg PO DAILY [facility] Last Admin: 12/08/17 09:53 Dose: 20 mg Gabapentin (Neurontin) 300 mg PO TID [facility] Last Admin: 12/08/17 09:52 Dose: 300 mg Glipizide (Glucotrol) 10 mg PO BID [facility] Last Admin: 12/08/17 09:53 Dose: 10 mg Glucagon (Glucagen Diagnostic Kit) 0 mg IM STAT PRN; Protocol PRN Reason: Hypoglycemia Protocol Hydrocortisone (Cortef) 20 mg PO TID [facility] Last Admin: 12/08/17 09:55 Dose: 20 mg Hydroxyzine HCl (Atarax) 25 mg PO Q6 PRN PRN Reason: Anxiety Dextrose (Dextrose 5% In Water 1000 Ml) 1,000 mls @ 0 mls/hr IV .Q0M PRN; Protocol; Per Protocol PRN Reason: Hypoglycemia Protocol Insulin Aspart (Novolog) 0 unit SC [facility] PRN Reason: Protocol Last Admin: 12/08/17 08:00 Dose: 2 unit Levothyroxine Sodium (Synthroid) 100 mcg PO DAILY@0630 [facility] Last Admin: 12/08/17 05:59 Dose: 100 mcg Lisinopril (Zestril) 10 mg PO DAILY [facility] Last Admin: 12/08/17 09:53 Dose: 10 mg Magnesium Oxide (Mag-Ox) 400 mg PO BID [facility] Last Admin: 12/08/17 09:53 Dose: 400 mg Metoprolol Tartrate (Lopressor) 50 mg PO BID [facility] Last Admin: 12/08/17 09:52 Dose: 50 mg Mirtazapine (Remeron) 15 mg PO [facility] Last Admin: 12/07/17 21:31 Dose: Not Given Pantoprazole Sodium (Protonix Ec Tab) 40 mg PO DAILY [facility] Last Admin: 12/08/17 09:53 Dose: 40 mg Rosuvastatin Calcium (Crestor) 10 mg PO HS [facility] Last Admin: 12/07/17 21:06 Dose: 10 mg Sennosides (Senokot Tab) 8.6 mg PO HS [facility] Last Admin: 12/07/17 21:07 Dose: 8.6 mg Trazodone HCl (Desyrel) 50 mg PO HS [facility] Last Admin: 12/07/17 21:07 Dose: 50 mg Zolpidem Tartrate (Ambien) 5 mg PO HS PRN PRN Reason: Insomnia Last Admin: 12/05/17 22:02 Dose: 5 mg - Labs Labs: 12/08/17 07:23 06/06/18 07:23 PT 43.4 SECONDS (9.7-12.2) H* D 12/08/17 07:23 INR 4.0 D 12/08/17 07:23 APTT 25 SECONDS (21-34) 12/06/17 07:02 - Constitutional Appears: Chronically Ill - Head Exam Head Exam: ATRAUMATIC, NORMOCEPHALIC - Eye Exam Eye Exam: EOMI, Scleral icterus - Respiratory Exam Respiratory Exam: Clear to Ausculation Bilateral, NORMAL BREATHING PATTERN - Cardiovascular Exam Cardiovascular Exam: REGULAR RHYTHM, +S1, +S2 - GI/Abdominal Exam GI & Abdominal Exam: Soft, Normal Bowel Sounds - Neurological Exam Neurological Exam: Alert, Awake, Oriented x3 - Psychiatric Exam Psychiatric exam: Depressed Assessment and Plan - Assessment and Plan (Free Text) Plan: Depression; severe -c/w buproprion from home -Psych Consult; Dr. 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 -gabapentin 300mg PO TID -Vicodin 5/300 1T po q6hrs prn -diazepam 5mg PO PRN (decreased 12/08/17) -Flexeril 5mg PO TID -PT/Eval and treat as movement is the best tx available for fibromyalgia -thoracic spinal MRI normal -Cervical spinal MRI shows C5/C6 lateral herniation without any neurological deficits present; osteophyte formation and osteoporosis -Lumbar spine MRI L3-L4 right foraminal stenosis, degenerative changes Hypothyroidism -12/02/17 TSH .21 -c/w current levothyroxine 100mg PO QD; recheck in months Urinary Retention -c/w oxybutynin Previous unprovoked PE/DVT -c/w coumadin 6mg PO HS -follow INR; currently 1.3 Chronic Constipation 2/2 to opoid use -c/w stool softeners Insomnia Ambien 5mg PO qhs prn Trazodone 50mg PO qhs HLD -c/w rosuvastatin 10mg Gout; chronic -c/w colchicine -check uric acid tomorrow; goal below 8 HTN -c/w diltiazem 120mg PO daily, lisinopril 10 mg qd, and toprol xl 50mg qd Diabetes -Restart metformin 500mg PO BID 12/08/17 -Glipizide 10mg PO BID -ISS Proph -warfarin held tonight for supratherapeutic INR of 4.0- recheck tomorrow and lower dose when reintroducing warfarin -pepcid; on chronic high dose steroids Case discussed with Dr. Gutierres All management as per Dr. Gutierres
[2017-12-09] MEDS: Levothyroxine 100 MCG TAB PO SCH (06:25)
[2017-12-09 06:45] LABS: BASO % 0.3 % (0.0-2.0); EOS % 0.3 % (0.0-4.0); HEMOGLOBIN 9.6 g/dL (11.0-16.0); LYMPH # 1.6 K/uL (1.0-4.3); LYMPH % 19.5 % (20.0-40.0); MEAN CELL VOLUME 79.7 fL (81.0-99.0); MEAN CORPUSCULAR HEMOGLOBIN 25.2 pg (27.0-31.0); MEAN CORPUSCULAR HGB CONC 31.6 g/dL (33.0-37.0); MEAN PLATELET VOLUME 8.5 fL (7.2-11.7); MONO # 0.7 K/uL (0.0-0.8); MONO % 8.2 % (0.0-10.0); NEUT # 5.9 K/uL (1.8-7.0); NEUT % 71.7 % (50.0-75.0); NRBC % 0.1 % (0.0-2.0); RBC 3.82 Mil/uL (3.80-5.20); RED CELL DISTRIBUTION WIDTH 14.3 % (11.5-14.5); WHITE BLOOD COUNT 8.2 K/uL (4.8-10.8)
[2017-12-09 06:52] LABS: INR 4.4
[2017-12-09 07:00] LABS: ALB/GLOB RATIO 1.1 (1.0-2.1); ALBUMIN 2.8 g/dL (3.5-5.0); ALT/SGPT 164 U/L (9-52); AST/SGOT 56 U/L (14-36); BLOOD UREA NITROGEN 42 mg/dL (7-17); GFR AFRICAN-AMERICAN > 60; GFR NON-AFRICAN AMERICAN > 60; PROTHROMBIN TIME 48.8 SECONDS (9.7-12.2)
[2017-12-09] MEDS: (Novolog) Insulin Aspart, Recombinant 100 u/ml 10 ml vial SC SCH ×4 (09:24→21:22)
[2017-12-09] MEDS: diltiaZEM 120 mg/24 Hours CD Cap PO SCH (09:29)
--- NOTE | 2017-12-09 09:46 | CP.PCM.PN ---
Subjective - Date & Time of Evaluation Date of Evaluation: 12/09/17 Time of Evaluation: 09:45 - Subjective Subjective: Progress Note for Dr. Gutierres's Service Patient seen and examined at bedside this morning. She continues to complains of back pain and lower extremity weakness. She states that she is trying her best to do the PT. Her INR was 4.0 yesterday and Coumadin was held. This morning the INR is 4.4. We will hold the Coumadin again today for retesting tomorrow. The diazepam dosage was also lowered yesterday due to somnolence, which seems improved today. Objective - Vital Signs/Intake and Output Vital Signs (last 24 hours): Temp Pulse Resp BP Pulse Ox 98.3 F 108 H 20 154/90 H 97 12/09/17 08:00 12/09/17 08:00 12/09/17 08:00 12/09/17 09:25 12/09/17 08:00 Intake and Output: 12/09/17 12/09/17 06:59 18:59 Intake Total 500 Balance 500 - Medications Medications: Current Medications Bupropion HCl (Wellbutrin) 150 mg PO DAILY [facility] Last Admin: 12/08/17 09:50 Dose: 150 mg Colchicine (Colocrys) 0.6 mg PO DAILY [facility] Last Admin: 12/08/17 09:49 Dose: 0.6 mg Cyclobenzaprine HCl (Flexeril) 5 mg PO TID [facility] Last Admin: 12/08/17 19:11 Dose: Not Given Dextrose (Dextrose 50% Inj) 0 ml IV STAT PRN; Protocol PRN Reason: Hypoglycemia Protocol Dextrose (Glutose 15) 0 gm PO ONCE PRN; Protocol PRN Reason: Hypoglycemia Protocol Diazepam (Valium) 5 mg PO BID PRN PRN Reason: Pain, (4-7),MUSCLE SPASM Diltiazem HCl (Cardizem Cd) 120 mg PO DAILY [facility] Last Admin: 12/09/17 09:29 Dose: 120 mg Famotidine (Pepcid) 20 mg PO DAILY [facility] Last Admin: 12/09/17 09:25 Dose: 20 mg Gabapentin (Neurontin) 300 mg PO TID [facility] Last Admin: 12/08/17 19:10 Dose: Not Given Glipizide (Glucotrol) 10 mg PO BID [facility] Last Admin: 12/09/17 09:25 Dose: 10 mg Glucagon (Glucagen Diagnostic Kit) 0 mg IM STAT PRN; Protocol PRN Reason: Hypoglycemia Protocol Hydrocortisone (Cortef) 20 mg PO TID [facility] Last Admin: 12/09/17 09:29 Dose: 20 mg Hydroxyzine HCl (Atarax) 25 mg PO Q6 PRN PRN Reason: Anxiety Insulin Aspart (Novolog) 0 unit SC ACHS [facility] PRN Reason: Protocol Last Admin: 12/09/17 09:24 Dose: 3 unit Levothyroxine Sodium (Synthroid) 100 mcg PO DAILY@0630 [facility] Last Admin: 12/09/17 06:25 Dose: 100 mcg Lisinopril (Zestril) 10 mg PO DAILY [facility] Last Admin: 12/09/17 09:25 Dose: 10 mg Magnesium Oxide (Mag-Ox) 400 mg PO BID [facility] Last Admin: 12/08/17 19:09 Dose: Not Given Metoprolol Tartrate (Lopressor) 50 mg PO BID [facility] Last Admin: 12/09/17 09:25 Dose: 50 mg Mirtazapine (Remeron) 15 mg PO HS [facility] Last Admin: 12/08/17 22:51 Dose: Not Given Pantoprazole Sodium (Protonix Ec Tab) 40 mg PO DAILY [facility] Last Admin: 12/08/17 09:53 Dose: 40 mg Rosuvastatin Calcium (Crestor) 10 mg PO HS [facility] Last Admin: 12/08/17 22:50 Dose: 10 mg Sennosides (Senokot Tab) 8.6 mg PO HS [facility] Last Admin: 12/08/17 22:50 Dose: 8.6 mg Trazodone HCl (Desyrel) 50 mg PO HS [facility] Last Admin: 12/08/17 22:50 Dose: Not Given Zolpidem Tartrate (Ambien) 5 mg PO HS PRN PRN Reason: Insomnia Last Admin: 12/05/17 22:02 Dose: 5 mg - Labs Labs: 12/09/17 06:39 12/09/17 06:39 PT 48.8 SECONDS (9.7-12.2) H* D 12/09/17 06:39 INR 4.4 12/09/17 06:39 APTT 25 SECONDS (21-34) 12/06/17 07:02 - Head Exam Head Exam: ATRAUMATIC, NORMOCEPHALIC - Eye Exam Eye Exam: EOMI - ENT Exam ENT Exam: Mucous Membranes Moist - Respiratory Exam Respiratory Exam: Clear to Ausculation Bilateral, NORMAL BREATHING PATTERN - Cardiovascular Exam Cardiovascular Exam: REGULAR RHYTHM, +S1, +S2 - GI/Abdominal Exam GI & Abdominal Exam: Soft. absent: Tenderness - Extremities Exam Extremities Exam: absent: Pedal Edema - Back Exam Back Exam: muscle spasm, paraspinal tenderness. absent: CVA tenderness (L), CVA tenderness (R), tenderness - Neurological Exam Neurological Exam: Alert, Awake, Oriented x3 Neuro motor strength exam: Left Lower Extremity: 4, Right Lower Extremity: 4 - Psychiatric Exam Psychiatric exam: Anxious - Skin Skin Exam: Dry, Warm Assessment and Plan - Assessment and Plan (Free Text) Plan: Depression; severe -Psych Consult; Dr. 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 -gabapentin 300mg PO TID -Vicodin 5/300 1T po q6hrs prn -diazepam 5mg PO PRN (decreased 12/08/17) -Flexeril 5mg PO TID -PT/Eval and treat as movement is the best tx available for fibromyalgia -thoracic spinal MRI normal -Cervical spinal MRI shows C5/C6 lateral herniation without any neurological deficits present; osteophyte formation and osteoporosis -Lumbar spine MRI L3-L4 right foraminal stenosis, degenerative changes Hypothyroidism -12/02/17 TSH .21 -c/w current levothyroxine 100mg PO QD; recheck in months Urinary Retention -c/w oxybutynin Previous unprovoked PE/DVT -coumadin 6mg was held last night due to supratherpeutic INR of 4.0 yesterday 12/08 on labs. Repeat INR this morning is 4.4. We will hold coumadin again this evening. -IVC filter in place as per Dr. Gutierres Chronic Constipation 2/2 to opoid use -c/w stool softeners Insomnia Ambien 5mg PO qhs prn Trazodone 50mg PO qhs HLD -c/w rosuvastatin 10mg Gout; chronic -c/w colchicine -check uric acid tomorrow; goal below 8 HTN -c/w diltiazem 120mg PO daily, lisinopril 10 mg qd, and toprol xl 50mg qd Diabetes- poorly controlled -Restart metformin 500mg PO BID 12/08/17 -Glipizide 10mg PO BID -start januvia 100mg PO daily 12/09/17 -ISS Proph -pepcid; on chronic high dose steroids Warfarin was held last night for supratherapeutic INR of 4.0. Recheck INR today was 4.4. We will continue to observe the patient and monitor INR with AM labs. Plan to reintroduce warfarin at 3mg starting tomorrow. Plan for d/c to [facility] with INR monitoring. Case discussed with Dr. Gutierres All management as per Dr. Gutierres
[2017-12-09] MEDS: Magnesium Oxide 400 mg Tab UD PO SCH ×2 (12:44→17:16)
[2017-12-09] MEDS: Pantoprazole 40 mg EC Tab PO SCH (12:49)
[2017-12-09] MEDS ORDERED: Hydrocodone/Acetaminophen 5 mg /300 mg Tab PO PRN (14:34)
[2017-12-09 21:46] LABS: SQUAMOUS EPITHIAL 1 /hpf (0-5); URINE BACTERIA OCC (<OCC); URINE BILIRUBIN NEGATIVE (NEGATIVE); URINE CLARITY Hazy (Clear); URINE COLOR Yellow (YELLOW); URINE GLUCOSE (UA) 3+ mg/dL (Normal); URINE LEUKOCYTE ESTERASE NEG Leu/uL (Negative); URINE PROTEIN NEGATIVE (NEGATIVE); URINE UROBILINOGEN NORMAL mg/dL (0.2-1.0)
[2017-12-09 21:48] LABS: URINE BLOOD TRACE (NEGATIVE)
[2017-12-10] MEDS: Levothyroxine 100 MCG TAB PO SCH (06:10)
[2017-12-10 07:22] LABS: BASO # 0.1 K/uL (0.0-0.2); BASO % 0.7 % (0.0-2.0); EOS # 0.1 K/uL (0.0-0.7); EOS % 0.7 % (0.0-4.0); HEMOGLOBIN 10.3 g/dL (11.0-16.0); LYMPH # 2.6 K/uL (1.0-4.3); LYMPH % 22.9 % (20.0-40.0); MEAN CORPUSCULAR HEMOGLOBIN 24.9 pg (27.0-31.0); MEAN CORPUSCULAR HGB CONC 31.1 g/dL (33.0-37.0); MEAN PLATELET VOLUME 9.4 fL (7.2-11.7); MONO # 0.9 K/uL (0.0-0.8); MONO % 7.5 % (0.0-10.0); NEUT # 7.8 K/uL (1.8-7.0); NEUT % 68.2 % (50.0-75.0); NRBC % 0.2 % (0.0-2.0); RBC 4.11 Mil/uL (3.80-5.20); WHITE BLOOD COUNT 11.5 K/uL (4.8-10.8)
[2017-12-10 07:29] LABS: INR 2.3; PROTHROMBIN TIME 25.4 SECONDS (9.7-12.2)
[2017-12-10 07:37] LABS: ALBUMIN 2.9 g/dL (3.5-5.0); ALT/SGPT 132 U/L (9-52); AST/SGOT 53 U/L (14-36); BLOOD UREA NITROGEN 36 mg/dL (7-17); GFR AFRICAN-AMERICAN > 60; GFR NON-AFRICAN AMERICAN > 60
[2017-12-10] MEDS: (Novolog) Insulin Aspart, Recombinant 100 u/ml 10 ml vial SC SCH ×4 (07:42→21:58)
[2017-12-10] MEDS: Magnesium Oxide 400 mg Tab UD PO SCH ×2 (09:32→18:06)
[2017-12-10] MEDS: diltiaZEM 120 mg/24 Hours CD Cap PO SCH (09:34)
[2017-12-10] MEDS: Pantoprazole 40 mg EC Tab PO SCH (09:48)
--- NOTE | 2017-12-10 10:38 | CP.PCM.PN ---
Subjective - Date & Time of Evaluation Date of Evaluation: 12/10/17 Time of Evaluation: 10:35 - Subjective Subjective: Progress Note for Dr. Gutierres's Service Patient seen and examined at bedside this morning. She continues to complains of back pain and lower extremity weakness. She states that she is trying her best to do the PT. Her INR was 4.0, Coumadin was held, rechecked INR was 4.4 and Coumadin was held again. This morning INR is 2.3; plan to reintroduce Coumadin at lower dose of 3mg. Continued weakness in the legs. Objective - Vital Signs/Intake and Output Vital Signs (last 24 hours): Temp Pulse Resp BP Pulse Ox 98.0 F 86 20 144/81 95 12/10/17 08:44 12/10/17 08:44 12/10/17 08:44 12/10/17 09:38 12/10/17 08:44 Intake and Output: 12/10/17 12/10/17 06:59 18:59 Intake Total 400 Output Total 650 Balance -250 - Medications Medications: Current Medications Hydrocodone Bitart/Acetaminophen (Vicodin 5 Mg-300 Mg) 1 tab PO Q6H PRN PRN Reason: Pain, Mild (1-3) Stop: 12/16/17 14:35 Bupropion HCl (Wellbutrin) 150 mg PO DAILY [facility] Last Admin: 12/10/17 09:34 Dose: 150 mg Colchicine (Colocrys) 0.6 mg PO DAILY [facility] Last Admin: 12/10/17 09:33 Dose: 0.6 mg Cyclobenzaprine HCl (Flexeril) 5 mg PO TID [facility] Last Admin: 12/10/17 09:33 Dose: 5 mg Dextrose (Dextrose 50% Inj) 0 ml IV STAT PRN; Protocol PRN Reason: Hypoglycemia Protocol Dextrose (Glutose 15) 0 gm PO ONCE PRN; Protocol PRN Reason: Hypoglycemia Protocol Diazepam (Valium) 5 mg PO BID PRN PRN Reason: Pain, (4-7),MUSCLE SPASM Diltiazem HCl (Cardizem Cd) 120 mg PO DAILY [facility] Last Admin: 12/10/17 09:34 Dose: 120 mg Famotidine (Pepcid) 20 mg PO DAILY [facility] Last Admin: 12/10/17 09:32 Dose: 20 mg Gabapentin (Neurontin) 300 mg PO TID [facility] Last Admin: 12/10/17 09:32 Dose: 300 mg Glipizide (Glucotrol) 10 mg PO BID [facility] Last Admin: 12/10/17 09:31 Dose: 10 mg Glucagon (Glucagen Diagnostic Kit) 0 mg IM STAT PRN; Protocol PRN Reason: Hypoglycemia Protocol Hydrocortisone (Cortef) 20 mg PO TID [facility] Last Admin: 12/10/17 09:34 Dose: 20 mg Hydroxyzine HCl (Atarax) 25 mg PO Q6 PRN PRN Reason: Anxiety Insulin Aspart (Novolog) 0 unit SC [facility] PRN Reason: Protocol Last Admin: 12/10/17 07:42 Dose: Not Given Levothyroxine Sodium (Synthroid) 100 mcg PO DAILY@0630 [facility] Last Admin: 12/10/17 06:10 Dose: 100 mcg Lisinopril (Zestril) 10 mg PO DAILY [facility] Last Admin: 12/10/17 09:32 Dose: 10 mg Magnesium Oxide (Mag-Ox) 400 mg PO BID [facility] Last Admin: 12/10/17 09:32 Dose: 400 mg Metoprolol Tartrate (Lopressor) 50 mg PO BID [facility] Last Admin: 12/10/17 09:38 Dose: 50 mg Mirtazapine (Remeron) 15 mg PO [facility] Last Admin: 12/09/17 21:06 Dose: Not Given Pantoprazole Sodium (Protonix Ec Tab) 40 mg PO DAILY [facility] Last Admin: 12/10/17 09:48 Dose: 40 mg Rosuvastatin Calcium (Crestor) 10 mg PO [facility] Last Admin: 12/09/17 21:09 Dose: 10 mg Sennosides (Senokot Tab) 8.6 mg PO HS [facility] Last Admin: 12/09/17 21:08 Dose: 8.6 mg Sitagliptin Phosphate (Januvia) 100 mg PO DAILY [facility] Last Admin: 12/10/17 09:31 Dose: 100 mg Trazodone HCl (Desyrel) 50 mg PO [facility] Last Admin: 12/09/17 21:06 Dose: Not Given Zolpidem Tartrate (Ambien) 5 mg PO HS PRN PRN Reason: Insomnia Last Admin: 12/05/17 22:02 Dose: 5 mg - Labs Labs: 12/10/17 07:15 12/10/17 07:15 PT 25.4 SECONDS (9.7-12.2) H D 12/10/17 07:15 INR 2.3 D 12/10/17 07:15 APTT 25 SECONDS (21-34) 12/06/17 07:02 - Constitutional Appears: No Acute Distress - Head Exam Head Exam: ATRAUMATIC, NORMOCEPHALIC - Eye Exam Eye Exam: EOMI - ENT Exam ENT Exam: Mucous Membranes Moist - Respiratory Exam Respiratory Exam: Clear to Ausculation Bilateral, NORMAL BREATHING PATTERN - Cardiovascular Exam Cardiovascular Exam: REGULAR RHYTHM, +S1, +S2 - GI/Abdominal Exam GI & Abdominal Exam: Soft. absent: Tenderness - Neurological Exam Neurological Exam: Alert, Awake, Oriented x3 Neuro motor strength exam: Left Lower Extremity: 3, Right Lower Extremity: 3 - Psychiatric Exam Psychiatric exam: Normal Affect, Normal Mood - Skin Skin Exam: Dry, Warm Assessment and Plan - Assessment and Plan (Free Text) Plan: Depression; severe -Psych Consult; Dr. 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 Gutierres. She has been cared for in the past by Dr. Baeza. We will place a consult to Dr. Baeza. Additionally inflammatory markers will be examined for possible insight into the nature of the lower extremity weakness which is a newer feature associated with the back pain. Hypothyroidism -12/02/17 TSH 2.21 -c/w current levothyroxine 100mg PO QD; recheck in months Urinary Retention -c/w oxybutynin Previous unprovoked PE/DVT -coumadin 6mg was held last night due to supratherpeutic INR of 4.0 yesterday 12/08 on labs. Repeat INR this morning is 4.4. Today INR has normalized. - restart coumadin at 3mg PO qd with continued INR monitoring -IVC filter in place as per Dr. Gutierres Chronic Constipation 2/2 to opoid use -c/w stool softeners Insomnia Ambien 5mg PO qhs prn Trazodone 50mg PO qhs HLD -c/w rosuvastatin 10mg Gout; chronic -c/w colchicine -check uric acid tomorrow; goal below 8 HTN -c/w diltiazem 120mg PO daily, lisinopril 10 mg qd, and toprol xl 50mg qd Diabetes- poorly controlled -Restart metformin 500mg PO BID 12/08/17 -Glipizide 10mg PO BID -start januvia 100mg PO daily 12/09/17 -ISS Prophylaxis -pepcid; on chronic high dose steroids Case discussed with Dr. Gutierres All management as per Dr. Gutierres
[2017-12-11] MEDS: Levothyroxine 100 MCG TAB PO SCH (05:44)
[2017-12-11 06:28] LABS: BASO % 0.4 % (0.0-2.0); EOS # 0.1 K/uL (0.0-0.7); EOS % 0.5 % (0.0-4.0); HEMOGLOBIN 9.9 g/dL (11.0-16.0); LYMPH # 2.4 K/uL (1.0-4.3); LYMPH % 23.2 % (20.0-40.0); MEAN CORPUSCULAR HEMOGLOBIN 24.7 pg (27.0-31.0); MEAN CORPUSCULAR HGB CONC 30.9 g/dL (33.0-37.0); MEAN PLATELET VOLUME 8.3 fL (7.2-11.7); MONO # 0.9 K/uL (0.0-0.8); MONO % 8.3 % (0.0-10.0); NEUT # 7.1 K/uL (1.8-7.0); NEUT % 67.6 % (50.0-75.0); NRBC % 0.1 % (0.0-2.0); PLATELET COUNT 339 K/uL (130-400); RBC 4.01 Mil/uL (3.80-5.20); RED CELL DISTRIBUTION WIDTH 14.3 % (11.5-14.5); WHITE BLOOD COUNT 10.5 K/uL (4.8-10.8)
[2017-12-11 06:32] LABS: INR 1.6
[2017-12-11 07:04] LABS: ALB/GLOB RATIO 1.1 (1.0-2.1); ALBUMIN 2.7 g/dL (3.5-5.0); ALT/SGPT 138 U/L (9-52); AST/SGOT 55 U/L (14-36); BLOOD UREA NITROGEN 37 mg/dL (7-17); CALCIUM 8.7 mg/dl (8.6-10.4); GFR AFRICAN-AMERICAN > 60; GFR NON-AFRICAN AMERICAN > 60
[2017-12-11] MEDS: (Novolog) Insulin Aspart, Recombinant 100 u/ml 10 ml vial SC SCH ×4 (07:50→22:13)
[2017-12-11 08:53] LABS: BANDS 4 % (0-2); LYMPHOCYTE 28 % (20-40); METAMYELOCYTE 3 % (0-0); MONOCYTE 6 % (0-10); MYELOCYTE 1 % (0-0); NEUTROPHIL 58 % (50-75); TOTAL CELLS COUNTED 100
[2017-12-11 08:54] LABS: PLATELET ESTIMATE NORMAL (NORMAL)
[2017-12-11 08:55] LABS: ANISOCYTOSIS SLIGHT; OVALOCYTES SLIGHT; POIKILOCYTOSIS SLIGHT; TEARDROP CELLS SLIGHT
[2017-12-11 08:56] LABS: LARGE PLATELETS PRESENT; POLYCHROMIC SLIGHT
[2017-12-11 08:57] LABS: HYPOCHROMIC SLIGHT; MICROCYTOSIS SLIGHT; SCHISTOCYTES SLIGHT
[2017-12-11 08:59] LABS: SPHEROCYTES SLIGHT
[2017-12-11] MEDS: diltiaZEM 120 mg/24 Hours CD Cap PO SCH (09:35)
[2017-12-11] MEDS: Pantoprazole 40 mg EC Tab PO SCH (09:36)
[2017-12-11] MEDS: Magnesium Oxide 400 mg Tab UD PO SCH ×2 (09:36→17:56)
[2017-12-12] MEDS: Levothyroxine 100 MCG TAB PO SCH (05:57)
[2017-12-12] MEDS: (Novolog) Insulin Aspart, Recombinant 100 u/ml 10 ml vial SC SCH ×4 (08:00→22:29)
[2017-12-12 08:01] LABS: INR 1.9; PROTHROMBIN TIME 20.5 SECONDS (9.7-12.2)
[2017-12-12 08:06] LABS: BASO % 0.3 % (0.0-2.0); EOS # 0.1 K/uL (0.0-0.7); EOS % 0.8 % (0.0-4.0); HEMOGLOBIN 9.9 g/dL (11.0-16.0); LYMPH # 2.2 K/uL (1.0-4.3); LYMPH % 18.4 % (20.0-40.0); MEAN CELL VOLUME 80.1 fL (81.0-99.0); MEAN CORPUSCULAR HGB CONC 31.2 g/dL (33.0-37.0); MEAN PLATELET VOLUME 8.6 fL (7.2-11.7); MONO % 8.3 % (0.0-10.0); NEUT # 8.6 K/uL (1.8-7.0); NEUT % 72.2 % (50.0-75.0); NRBC % 0.1 % (0.0-2.0); RBC 3.94 Mil/uL (3.80-5.20); RED CELL DISTRIBUTION WIDTH 14.5 % (11.5-14.5); WHITE BLOOD COUNT 11.9 K/uL (4.8-10.8)
[2017-12-12 08:23] LABS: ALB/GLOB RATIO 1.2 (1.0-2.1); ALBUMIN 2.9 g/dL (3.5-5.0); ALT/SGPT 122 U/L (9-52); AST/SGOT 42 U/L (14-36); BLOOD UREA NITROGEN 37 mg/dL (7-17); CALCIUM 8.8 mg/dl (8.6-10.4); GFR AFRICAN-AMERICAN > 60; GFR NON-AFRICAN AMERICAN 56
--- NOTE | 2017-12-12 08:55 | CON ---
DATE OF CONSULTATION: 12/10/2017 HISTORY OF PRESENT ILLNESS: This is a rather unfortunate 62-year-old woman with a whole host of medical problems. She is several months status post right hip surgery. She is also 4 years status post a lumbar decompression. She was just recently discharged from [facility] for one problem, admitted into the ER here with multiple problems, amongst one of which is low back pain. It seems that at least she has only been complaining of severe back pain for relatively short amount of time. She denies any symptoms into her legs, although she has right leg weakness, which again seems to be related to the recent hip surgery. She also may have some urinary dysfunction, although I do not believe this is on a basis. today, it does not seem that she has really had any conservative treatment recently, that is either physiotherapy or targeted medicinal therapy as she certainly has not had any injective treatment. PAST MEDICAL HISTORY: Extremely extensive, reviewed with EMR as are her medications, of which she is on 20 including Coumadin. SOCIAL HISTORY: Reviewed in the EMR. PHYSICAL EXAMINATION: The patient does exhibit at least 4+ out of 5 strength throughout. Her right leg is inverted, typical of a hip fracture, although she does seem to have good strength, and she also has good gross sensation throughout. Her reflexes are muted in both knees and ankle. She has very plus and minus tenderness all along the LS spine, and she has fairly good mobility in bed. LABORATORY DATA: I have reviewed her films. MRI of the cervical spine does show a disk herniation at C5-C6. It abuts the cord, but certainly there was no compression. Thoracic spine is basically negative. The lumbar spine has multiple findings including L3-L4 spondylolisthesis. There are, what are probably, sequestered and calcified disk herniations at both L3-L4 and L4-L5, L4-L5 is more on the left, L3-L4 on the right; both producing a fair amount of thecal sac compromise. There was a posterior laminectomy, does providing for the sac. IMPRESSION AND PLAN: The patient with overwhelming back pain as opposed to radicular complaints. I certainly would advocate a trail of rather good and extensive conservative treatment prior to contemplating surgical intervention. This would be in any patient and much more so in this fairly debilitated patient with multiple medical problems obviously in poor surgical candidate. I discussed this with the patient, and she is in agreement, and hopefully, we can initiate a trial of conservative treatment upon discharge. Azar Terry MD
[2017-12-12] MEDS: diltiaZEM 120 mg/24 Hours CD Cap PO SCH (09:46)
[2017-12-12] MEDS: Magnesium Oxide 400 mg Tab UD PO SCH ×2 (09:47→17:38)
[2017-12-12] MEDS: Pantoprazole 40 mg EC Tab PO SCH (09:47)
[2017-12-13] MEDS: Levothyroxine 100 MCG TAB PO SCH (05:41)
[2017-12-13 07:20] LABS: BASO % 0.1 % (0.0-2.0); EOS # 0.1 K/uL (0.0-0.7); EOS % 0.5 % (0.0-4.0); HEMOGLOBIN 9.8 g/dL (11.0-16.0); LYMPH # 2.2 K/uL (1.0-4.3); LYMPH % 20.5 % (20.0-40.0); MEAN CELL VOLUME 78.9 fL (81.0-99.0); MEAN CORPUSCULAR HEMOGLOBIN 24.5 pg (27.0-31.0); MEAN CORPUSCULAR HGB CONC 31.1 g/dL (33.0-37.0); MEAN PLATELET VOLUME 8.5 fL (7.2-11.7); MONO # 0.7 K/uL (0.0-0.8); MONO % 6.8 % (0.0-10.0); NEUT # 7.7 K/uL (1.8-7.0); NEUT % 72.1 % (50.0-75.0); RBC 3.99 Mil/uL (3.80-5.20); RED CELL DISTRIBUTION WIDTH 14.1 % (11.5-14.5); WHITE BLOOD COUNT 10.6 K/uL (4.8-10.8)
[2017-12-13 07:30] LABS: INR 1.6; PROTHROMBIN TIME 17.2 SECONDS (9.7-12.2)
[2017-12-13 07:37] LABS: ALBUMIN 2.7 g/dL (3.5-5.0); ALT/SGPT 105 U/L (9-52); AST/SGOT 31 U/L (14-36); BLOOD UREA NITROGEN 39 mg/dL (7-17); CALCIUM 8.9 mg/dl (8.6-10.4); GFR AFRICAN-AMERICAN > 60; GFR NON-AFRICAN AMERICAN 56
--- NOTE | 2017-12-13 07:47 | PN ---
DATE: 12/12/2017 The patient is to get bed rest, supportive care, physical therapy. Angel Gutierres MD
[2017-12-13] MEDS: (Novolog) Insulin Aspart, Recombinant 100 u/ml 10 ml vial SC SCH ×2 (08:06→12:00)
[2017-12-13] MEDS: Insulin Detemir 100 units/ml Vial (Levemir) SC SCH (10:13)
[2017-12-13] MEDS: POLYETHYLENE GLYCOL 3350 17 GM/Dose PACKET PO PRN (10:14)
[2017-12-13] MEDS: Pantoprazole 40 mg EC Tab PO SCH (10:15)
[2017-12-13] MEDS: Magnesium Oxide 400 mg Tab UD PO SCH ×2 (10:16→17:40)
[2017-12-13] MEDS: diltiaZEM 120 mg/24 Hours CD Cap PO SCH (10:19)
--- NOTE | 2017-12-13 12:25 | CP.PCM.PN ---
Subjective - Date & Time of Evaluation Date of Evaluation: 12/13/17 Time of Evaluation: 12:25 - Subjective Subjective: PGY2 Note for Dr. Gutierres; all management as per Dr. Gutierres This patient was seen and examined at bedside this AM; denies any acute complaints or overnight events; denies fevers/chills, STEIN, CP, SOB, abdominal pain, N/V/D, dysuria/freq/urg or lower extremity pain/swelling. Objective - Vital Signs/Intake and Output Vital Signs (last 24 hours): Temp Pulse Resp BP Pulse Ox 97.7 F 89 18 143/79 94 L 12/13/17 08:24 12/13/17 08:24 12/13/17 08:24 12/13/17 10:15 12/13/17 08:24 Intake and Output: 12/13/17 12/13/17 06:59 18:59 Intake Total 460 Output Total 1050 Balance -590 - Medications Medications: Current Medications Hydrocodone Bitart/Acetaminophen (Vicodin 5 Mg-300 Mg) 1 tab PO Q6H PRN PRN Reason: Pain, Mild (1-3) Stop: 12/16/17 14:35 Bupropion HCl (Wellbutrin) 150 mg PO DAILY [facility] Last Admin: 12/13/17 10:17 Dose: 150 mg Colchicine (Colocrys) 0.6 mg PO DAILY [facility] Last Admin: 12/13/17 10:16 Dose: 0.6 mg Cyclobenzaprine HCl (Flexeril) 5 mg PO TID [facility] Last Admin: 12/13/17 10:18 Dose: 5 mg Dextrose (Dextrose 50% Inj) 0 ml IV STAT PRN; Protocol PRN Reason: Hypoglycemia Protocol Dextrose (Glutose 15) 0 gm PO ONCE PRN; Protocol PRN Reason: Hypoglycemia Protocol Diazepam (Valium) 5 mg PO BID PRN PRN Reason: Pain, (4-7),MUSCLE SPASM Diltiazem HCl (Cardizem Cd) 120 mg PO DAILY [facility] Last Admin: 12/13/17 10:19 Dose: 120 mg Famotidine (Pepcid) 20 mg PO DAILY [facility] Last Admin: 12/13/17 10:16 Dose: 20 mg Gabapentin (Neurontin) 300 mg PO TID [facility] Last Admin: 12/13/17 10:15 Dose: 300 mg Glipizide (Glucotrol) 10 mg PO BID [facility] Last Admin: 12/13/17 10:16 Dose: 10 mg Glucagon (Glucagen Diagnostic Kit) 0 mg IM STAT PRN; Protocol PRN Reason: Hypoglycemia Protocol Hydrocortisone (Cortef) 20 mg PO TID [facility] Last Admin: 12/13/17 10:06 Dose: 20 mg Hydroxyzine HCl (Atarax) 25 mg PO Q6 PRN PRN Reason: Anxiety Insulin Aspart (Novolog) 0 unit SC ACHS [facility] PRN Reason: Protocol Last Admin: 12/13/17 12:00 Dose: 6 unit Insulin Detemir (Levemir) 8 unit SC Q12 [facility] Last Admin: 12/13/17 10:13 Dose: 8 units Levothyroxine Sodium (Synthroid) 100 mcg PO DAILY@0630 [facility] Last Admin: 12/13/17 05:41 Dose: 100 mcg Lisinopril (Zestril) 10 mg PO DAILY [facility] Last Admin: 12/13/17 10:15 Dose: 10 mg Magnesium Oxide (Mag-Ox) 400 mg PO BID [facility] Last Admin: 12/13/17 10:16 Dose: 400 mg Metoprolol Tartrate (Lopressor) 50 mg PO BID [facility] Last Admin: 12/13/17 10:15 Dose: 50 mg Mirtazapine (Remeron) 15 mg PO HS [facility] Last Admin: 12/12/17 22:30 Dose: 15 mg Pantoprazole Sodium (Protonix Ec Tab) 40 mg PO DAILY [facility] Last Admin: 12/13/17 10:15 Dose: 40 mg Polyethylene Glycol (Miralax) 17 gm PO BID PRN PRN Reason: Constipation Last Admin: 12/13/17 10:14 Dose: 17 gm Rosuvastatin Calcium (Crestor) 10 mg PO HS [facility] Last Admin: 12/12/17 21:37 Dose: 10 mg Sennosides (Senokot Tab) 8.6 mg PO HS [facility] Last Admin: 12/12/17 21:36 Dose: 8.6 mg Sitagliptin Phosphate (Januvia) 100 mg PO DAILY [facility] Last Admin: 12/13/17 10:38 Dose: 100 mg Trazodone HCl (Desyrel) 50 mg PO HS [facility] Last Admin: 12/12/17 21:37 Dose: 50 mg Warfarin Sodium (Coumadin) 3 mg PO 1800 [facility] Stop: 12/13/17 18:01 Zolpidem Tartrate (Ambien) 5 mg PO HS PRN PRN Reason: Insomnia Last Admin: 12/05/17 22:02 Dose: 5 mg - Labs Labs: 12/13/17 07:06 12/13/17 07:06 PT 17.2 SECONDS (9.7-12.2) H 12/13/17 07:06 INR 1.6 12/13/17 07:06 APTT 25 SECONDS (21-34) 12/06/17 07:02 Assessment and Plan - Assessment and Plan (Free Text) Assessment: Appears: No Acute Distress - Head Exam Head Exam: ATRAUMATIC, NORMOCEPHALIC - Eye Exam Eye Exam: EOMI - ENT Exam ENT Exam: Mucous Membranes Moist - Respiratory Exam Respiratory Exam: Clear to Ausculation Bilateral, NORMAL BREATHING PATTERN - Cardiovascular Exam Cardiovascular Exam: REGULAR RHYTHM, +S1, +S2 - GI/Abdominal Exam GI & Abdominal Exam: Soft. absent: Tenderness - Neurological Exam Neurological Exam: Alert, Awake, Oriented x3 Neuro motor strength exam: Left Lower Extremity: 3, Right Lower Extremity: 3 - Psychiatric Exam Psychiatric exam: Normal Affect, Normal Mood - Skin Skin Exam: Dry, Warm Assessment and Plan - Assessment and Plan (Free Text) Plan: Depression; severe -Psych Consult; Dr. 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 -gabapentin 300mg PO TID -Vicodin 5/300 1T po q6hrs prn -diazepam 5mg PO PRN (decreased 12/08/17) -Flexeril 5mg PO TID -PT/Eval and treat as movement is the best tx available for fibromyalgia -thoracic spinal MRI normal -Cervical spinal MRI shows C5/C6 lateral herniation without any neurological deficits present; osteophyte formation and osteoporosis -Lumbar spine MRI L3-L4 right foraminal stenosis, degenerative changes Hypothyroidism -12/02/17 TSH .21 -c/w current levothyroxine 100mg PO QD; recheck in months Urinary Retention -c/w oxybutynin Previous unprovoked PE/DVT -coumadin 6mg was held last night due to supratherpeutic INR of 4.0 yesterday 12/08 on labs. Repeat INR this morning is 4.4. Today INR has normalized. - restart coumadin at 3mg PO qd with continued INR monitoring -IVC filter in place as per Dr. Gutierres Chronic Constipation 2/2 to opoid use -c/w stool softeners Insomnia Ambien 5mg PO qhs prn Trazodone 50mg PO qhs HLD -c/w rosuvastatin 10mg Gout; chronic -c/w colchicine -check uric acid tomorrow; goal below 8 HTN -c/w diltiazem 120mg PO daily, lisinopril 10 mg qd, and toprol xl 50mg qd Diabetes- poorly controlled -Restart metformin 500mg PO BID 12/08/17 -Glipizide 10mg PO BID -start januvia 100mg PO daily 12/09/17 -ISS Prophylaxis -pepcid; on chronic high dose steroids Case discussed with Dr. Gutierres All management as per Dr. Gutierres Pt is pending placement into [id number] patient would benefit more from [place] placement however family is refusing patient needs to be weaned off of high dose steroids slowly to prevent adrenal failure
[2017-12-13 14:55] LABS: ANA PATTERN NUCLEOLAR
[2017-12-14] MEDS: Levothyroxine 100 MCG TAB PO SCH (05:40)
[2017-12-14 06:25] LABS: BASO # 0.1 K/uL (0.0-0.2); BASO % 0.4 % (0.0-2.0); EOS # 0.1 K/uL (0.0-0.7); EOS % 0.7 % (0.0-4.0); HEMOGLOBIN 10.3 g/dL (11.0-16.0); LYMPH # 2.9 K/uL (1.0-4.3); LYMPH % 23.7 % (20.0-40.0); MEAN CELL VOLUME 80.3 fL (81.0-99.0); MEAN CORPUSCULAR HEMOGLOBIN 25.3 pg (27.0-31.0); MEAN CORPUSCULAR HGB CONC 31.4 g/dL (33.0-37.0); MEAN PLATELET VOLUME 8.9 fL (7.2-11.7); MONO # 0.8 K/uL (0.0-0.8); MONO % 6.9 % (0.0-10.0); NEUT # 8.3 K/uL (1.8-7.0); NEUT % 68.3 % (50.0-75.0); NRBC % 0.1 % (0.0-2.0); RBC 4.07 Mil/uL (3.80-5.20); RED CELL DISTRIBUTION WIDTH 14.4 % (11.5-14.5); WHITE BLOOD COUNT 12.1 K/uL (4.8-10.8)
[2017-12-14 06:37] LABS: INR 1.2; PROTHROMBIN TIME 13.3 SECONDS (9.7-12.2)
[2017-12-14 07:38] LABS: ALBUMIN 2.8 g/dL (3.5-5.0); CALCIUM 9.1 mg/dl (8.6-10.4)
[2017-12-14] MEDS: (Novolog) Insulin Aspart, Recombinant 100 u/ml 10 ml vial SC SCH ×5 (08:00→22:05)
--- NOTE | 2017-12-14 10:08 | CP.PCM.PN ---
Subjective - Date & Time of Evaluation Date of Evaluation: 12/14/17 Time of Evaluation: 10:07 - Subjective Subjective: PGY2 Medicine note This patient has been stable for d/c since Wednesday however has no more days left at [facility] 2/2 to her out of state insurance; the family does not want a shelter as they believe they will "not take care of her". The patient is clinically the same as of yesterday. Objective - Vital Signs/Intake and Output Vital Signs (last 24 hours): Temp Pulse Resp BP Pulse Ox 98.5 F 125 H 20 130/90 93 L 12/14/17 07:00 12/14/17 07:00 12/14/17 07:00 12/14/17 07:00 12/14/17 07:00 Intake and Output: 12/14/17 12/14/17 06:59 18:59 Intake Total 490 Output Total 200 Balance 290 - Medications Medications: Current Medications Bupropion HCl (Wellbutrin) 150 mg PO DAILY [facility] Last Admin: 12/13/17 10:17 Dose: 150 mg Colchicine (Colocrys) 0.6 mg PO DAILY [facility] Last Admin: 12/13/17 10:16 Dose: 0.6 mg Cyclobenzaprine HCl (Flexeril) 5 mg PO TID [facility] Last Admin: 12/13/17 17:42 Dose: 5 mg Dextrose (Dextrose 50% Inj) 0 ml IV STAT PRN; Protocol PRN Reason: Hypoglycemia Protocol Dextrose (Glutose 15) 0 gm PO ONCE PRN; Protocol PRN Reason: Hypoglycemia Protocol Diazepam (Valium) 5 mg PO BID PRN PRN Reason: Pain, (4-7),MUSCLE SPASM Diltiazem HCl (Cardizem Cd) 120 mg PO DAILY [facility] Last Admin: 12/13/17 10:19 Dose: 120 mg Famotidine (Pepcid) 20 mg PO DAILY [facility] Last Admin: 12/13/17 10:16 Dose: 20 mg Gabapentin (Neurontin) 300 mg PO TID [facility] Last Admin: 12/13/17 17:39 Dose: 300 mg Glipizide (Glucotrol) 10 mg PO BID [facility] Last Admin: 12/13/17 17:40 Dose: 10 mg Glucagon (Glucagen Diagnostic Kit) 0 mg IM STAT PRN; Protocol PRN Reason: Hypoglycemia Protocol Hydrocortisone (Cortef) 20 mg PO TID [facility] Last Admin: 12/13/17 17:43 Dose: 20 mg Hydroxyzine HCl (Atarax) 25 mg PO Q6 PRN PRN Reason: Anxiety Insulin Aspart (Novolog) 0 unit SC ACHS [facility] PRN Reason: Protocol Last Admin: 12/14/17 08:00 Dose: 3 unit Insulin Detemir (Levemir) 8 unit SC Q12 [facility] Last Admin: 12/13/17 10:13 Dose: 8 units Levothyroxine Sodium (Synthroid) 100 mcg PO DAILY@0630 [facility] Last Admin: 12/14/17 05:40 Dose: 100 mcg Lisinopril (Zestril) 10 mg PO DAILY [facility] Last Admin: 12/13/17 10:15 Dose: 10 mg Magnesium Oxide (Mag-Ox) 400 mg PO BID [facility] Last Admin: 12/13/17 17:40 Dose: 400 mg Metoprolol Tartrate (Lopressor) 50 mg PO BID [facility] Last Admin: 12/13/17 17:40 Dose: 50 mg Mirtazapine (Remeron) 15 mg PO HS [facility] Last Admin: 12/13/17 21:25 Dose: 15 mg Pantoprazole Sodium (Protonix Ec Tab) 40 mg PO DAILY [facility] Last Admin: 12/13/17 10:15 Dose: 40 mg Polyethylene Glycol (Miralax) 17 gm PO BID PRN PRN Reason: Constipation Last Admin: 12/13/17 10:14 Dose: 17 gm Rosuvastatin Calcium (Crestor) 10 mg PO HS [facility] Last Admin: 12/13/17 21:25 Dose: 10 mg Sennosides (Senokot Tab) 8.6 mg PO HS [facility] Last Admin: 12/13/17 21:27 Dose: 8.6 mg Sitagliptin Phosphate (Januvia) 100 mg PO DAILY [facility] Last Admin: 12/13/17 10:38 Dose: 100 mg Trazodone HCl (Desyrel) 50 mg PO HS [facility] Last Admin: 12/13/17 21:25 Dose: 50 mg Zolpidem Tartrate (Ambien) 5 mg PO HS PRN PRN Reason: Insomnia Last Admin: 12/05/17 22:02 Dose: 5 mg - Labs Labs: 12/14/17 06:18 12/14/17 06:18 PT 13.3 SECONDS (9.7-12.2) H 12/14/17 06:18 INR 1.2 12/14/17 06:18 APTT 25 SECONDS (21-34) 12/06/17 07:02 Assessment and Plan - Assessment and Plan (Free Text) Assessment: Appears: No Acute Distress - Head Exam Head Exam: ATRAUMATIC, NORMOCEPHALIC - Eye Exam Eye Exam: EOMI - ENT Exam ENT Exam: Mucous Membranes Moist - Respiratory Exam Respiratory Exam: Clear to Ausculation Bilateral, NORMAL BREATHING PATTERN - Cardiovascular Exam Cardiovascular Exam: REGULAR RHYTHM, +S1, +S2 - GI/Abdominal Exam GI & Abdominal Exam: Soft. absent: Tenderness - Neurological Exam Neurological Exam: Alert, Awake, Oriented x3 Neuro motor strength exam: Left Lower Extremity: 3, Right Lower Extremity: 3 - Psychiatric Exam Psychiatric exam: Normal Affect, Normal Mood - Skin Skin Exam: Dry, Warm Assessment and Plan - Assessment and Plan (Free Text) Plan: Depression; severe -Psych Consult; Dr. 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 -gabapentin 300mg PO TID -Vicodin 5/300 1T po q6hrs prn -diazepam 5mg PO PRN (decreased 12/08/17) -Flexeril 5mg PO TID -PT/Eval and treat as movement is the best tx available for fibromyalgia -thoracic spinal MRI normal -Cervical spinal MRI shows C5/C6 lateral herniation without any neurological deficits present; osteophyte formation and osteoporosis -Lumbar spine MRI L3-L4 right foraminal stenosis, degenerative changes Hypothyroidism -12/02/17 TSH .21 -c/w current levothyroxine 100mg PO QD; recheck in 3 months Urinary Retention -c/w oxybutynin Previous unprovoked PE/DVT -daily INR and coumadin adjustments -IVC filter in place as per Dr. Gutierres Chronic Constipation 2/2 to opoid use -c/w stool softeners Insomnia Ambien 5mg PO qhs prn Trazodone 50mg PO qhs HLD -c/w rosuvastatin 10mg Gout; chronic -c/w colchicine -check uric acid tomorrow; goal below 8 HTN -c/w diltiazem 120mg PO daily, lisinopril 10 mg qd, and toprol xl 50mg qd Diabetes- poorly controlled -Restart metformin 500mg PO BID 12/08/17 -Glipizide 10mg PO BID -start januvia 100mg PO daily 12/09/17 -ISS Prophylaxis -pepcid; on chronic high dose steroids Case discussed with Dr. Gutierres All management as per Dr. uGtierres Pt is pending placement into [facility] patient would benefit more from [place] placement however family is refusing patient needs to be weaned off of high dose steroids slowly to prevent adrenal failure
[2017-12-14] MEDS: Pantoprazole 40 mg EC Tab PO SCH (10:11)
[2017-12-14] MEDS: diltiaZEM 120 mg/24 Hours CD Cap PO SCH (10:12)
[2017-12-14] MEDS ORDERED: Sodium Chloride 0.9% 1,000 ML IV ONE (10:28)
--- NOTE | 2017-12-14 10:51 | PCM.RRT ---
<Robin Villalobos - Last Filed: 12/14/17 10:48> INSOLE CHANNELER Nurses Assessment - Situation Date: 12/14/17 Time INSOLE CHANNELER was called: 10:20 INSOLE CHANNELER Responder Arrival Time:: 10:22 INSOLE CHANNELER Location:: Med/Oncology INSOLE CHANNELER Reason for Call: Looks Sicker INSOLE CHANNELER Called By: RN - IV IV Inserted during INSOLE CHANNELER?: Yes IV Fluids Initiated During INSOLE CHANNELER?: 1L NS; line infiltrated; not given; BP came up to normal New IV Insertion Tolerance: Poor - Respiratory INSOLE CHANNELER Delivery Method: Room Air Received Nebulizer Treatments: No Was the Patient Ventilated with Bag/Mask 100% O2?: No - Medication Medications Administered During INSOLE CHANNELER: no - Diagnostic Test Ordered EKG: No Chest X-Ray: No CT Scan: No CPR started during INSOLE CHANNELER?: No - Anselmo Coma Scale Coma Scale Eye Opening: Spontaneous Coma Scale Motor: Obeys Commands Movement Coma Scale Verbal: Oriented Coma Scale Total: 15 - Time INSOLE CHANNELER Ended Time INSOLE CHANNELER Ended: 10:28 - Recommendations 5) INSOLE CHANNELER Level of Care Recommendations: Remain in current setting Notifications: Attending Physician I.Reason for INSOLE CHANNELER - A) Acute Change in Patient: (Select all that apply): Staff member or family is worried about patient - Neurological Status (Select all that apply): Alert, Responsive, Oriented, Verbal, Follows Commands - Respiratory Oxygen Delivery Method: Room Air - Constitutional Additional Comments: please refer to physical exam from progress note today as INSOLE CHANNELER was called 30 minutes after I examined the patient and the PE remains the same; patient is chronically ill and debilitated Plan - Assessment of Findings&Treatment Plan 1L NS; unable to give 2/2 to line infiltration BP raised from 89/65 to 125/85 once sitting up encourage PO intake will give Fluonef 0.1mg as per Dr. Gutierres <Param Zuniga - Last Filed: 12/14/17 13:56> Attending/Attestation - Attestation I have personally seen and examined this patient.: Yes I have fully participated in the care of the patient.: Yes I have reviewed all pertinent clinical information, including history, physical exam and plan: Yes Notes (Text): 12/14/17 13:54 Medical attending: Patient was seen and examined by me. Agree with the above note by the reisdent. The patient had INSOLE CHANNELER called due to hypotension. She was given IVF bolus, accucheck was ok The lab work and isa sign were within lower kimits thank you Param Zuniga
[2017-12-14] MEDS: Insulin Detemir 100 units/ml Vial (Levemir) SC SCH (12:45)
[2017-12-14] MEDS: Magnesium Oxide 400 mg Tab UD PO SCH ×2 (12:46→19:47)
[2017-12-14] MEDS ORDERED: Hydrocodone/Acetaminophen 5 mg /300 mg Tab PO PRN (16:44)
[2017-12-14] MEDS: (Novolin 70/30) NPH/Regular 70/30 Units/ml 10 ml vial SC SCH (17:36)
[2017-12-14] MEDS: POLYETHYLENE GLYCOL 3350 17 GM/Dose PACKET PO PRN (19:46)
[2017-12-14] MEDS: (Novolin N) Insulin Human Isophane (NPH) 100 u/ml 10 ml vial SC SCH (22:00)
--- NOTE | 2017-12-15 00:09 | CON ---
DATE: 12/14/2017 ENDOCRINOLOGY CONSULT LOCATION: Room 351. HISTORY OF PRESENT ILLNESS: This is a 62-year-old female with known history of type 2 diabetes and hypertension, presenting here with generalized body weakness and severe lower back pain and polymyalgia with frequent falls and is now being referred for evaluation of adrenal insufficiency from longstanding steroid usage. She is currently on hydrocortisone taken as 20 mg t.i.d. after meals as given with Florinef at 0.1 mg daily. History of hypertension, dyslipidemia, history of generalized anxiety and depression currently on psychotropic medications, history of fibromyalgia with marked insomnia sleep pattern with overall generalized body weakness, currently on valium and psychotropic medications. She has previous right hip fracture and underwent an open reduction internal fixation in 2017 as noted. She also has had multiple abdominal surgeries prior cholecystectomy, appendectomy and hysterectomy. She also has known history of lumbar disk disease and severe osteoarthritis with chronic lower back pain on multiple narcotic analgesics in the past. She has previous back surgeries also some years ago. FAMILY HISTORY: Positive for hypertension and heart disease. SOCIAL HISTORY: The patient admits to smoking 2 packs a day for over 15 years, but quit a few years ago. Supportive family otherwise. REVIEW OF SYSTEMS: As mentioned above admits to generalized body weakness with severe bouts of dizziness and lightheadedness and bifrontal headaches with frequent falls as noted. Also admits to suboptimal energy with easy fatigability and tiredness. No chest pains or palpitations or PNDs. Her oral intake has been variable with nausea and dyspepsia and vague upper abdominal pains, also admits habitual constipation with vague upper abdominal pains. PHYSICAL EXAMINATION: GENERAL: An average-built female, in no apparent distress. VITAL SIGNS: Blood pressure 140/80, pulse of 70 beats per minute regular, temperature 98, respirations 20. HEENT: Head is normocephalic. Eyes anicteric with pink conjunctivae. Funduscopy not possible at this time. Ears, nose, and throat, otherwise, normal. NECK: Supple. Thyroid gland is normal size. No carotid bruits or cervical adenopathy. CARDIOPULMONARY: Some adynamic precordium. S1, S2 are rapid and regular. LUNGS: Clear to auscultation. ABDOMEN: Flat and soft with positive bowel sounds. EXTREMITIES: No peripheral edema. Pulses are +2 bilaterally. LABORATORY DATA: Her chemistry showed a BUN of 40, sodium 140, potassium 4.6, chloride 107, CO2 24, glucose 178 and creatinine 1.3. Her glucose levels have ranged from 204 to 364 mg/dL. There is no serum cortisol level available at this time. ASSESSMENT: This is a 62-year-old female with a possible history of adrenal insufficiency, currently on high dose hydrocortisone given as 20 mg t.i.d. presenting here with constitutional symptoms and significant history of fibromyalgia and severe lower back pain and has been previously on steroid therapy for pain management as noted. She also has uncontrolled type 2 insulin-requiring diabetes with marked hyperglycemic accelerations as expected from the increased insulin resistance with the intercurrent steroid usage as given. PLAN AND MANAGEMENT: We will obtain a fasting serum cortisol level with an ACTH value, which will confirm and/or negate the presence of underlying primary and/or secondary adrenal insufficiency. We will also obtain a baseline thyroid studies and serial chemistries and supplement accordingly as needed. An hemoglobin A1c to confirm her prior poor glycemic control and baseline thyroid function studies will be obtained. We will also modify her insulin regimen to optimize metabolic control and start her on Novolin 70/30, given as 30 units before breakfast and 20 units before dinner, to start today. We will also add basal insulin NPH given as 12 units at bedtime to start tonight. We will modify the coverage scale to obviate hypoglycemia and detailed orders have been given. We will continue the current cortisone replacement therapy and will modify accordingly to optimize metabolic control once we have the reports of the serum cortisol levels as ordered. We will follow with you. Neeru Dickson MD
[2017-12-15 06:13] LABS: BASO % 0.2 % (0.0-2.0); EOS % 0.3 % (0.0-4.0); HEMOGLOBIN 9.9 g/dL (11.0-16.0); LYMPH % 19.3 % (20.0-40.0); MEAN CELL VOLUME 79.6 fL (81.0-99.0); MEAN CORPUSCULAR HEMOGLOBIN 24.6 pg (27.0-31.0); MEAN PLATELET VOLUME 8.6 fL (7.2-11.7); MONO # 0.8 K/uL (0.0-0.8); MONO % 7.5 % (0.0-10.0); NEUT # 7.4 K/uL (1.8-7.0); NEUT % 72.7 % (50.0-75.0); NRBC % 0.1 % (0.0-2.0); RBC 4.04 Mil/uL (3.80-5.20); RED CELL DISTRIBUTION WIDTH 14.2 % (11.5-14.5); WHITE BLOOD COUNT 10.3 K/uL (4.8-10.8)
[2017-12-15 06:23] LABS: INR 1.1; PROTHROMBIN TIME 11.9 SECONDS (9.7-12.2)
[2017-12-15] MEDS: Levothyroxine 100 MCG TAB PO SCH (06:27)
[2017-12-15 06:34] LABS: ALB/GLOB RATIO 1.2 (1.0-2.1); ALT/SGPT 92 U/L (9-52); AST/SGOT 29 U/L (14-36); BLOOD UREA NITROGEN 37 mg/dL (7-17); CALCIUM 8.9 mg/dl (8.6-10.4); GFR AFRICAN-AMERICAN > 60; GFR NON-AFRICAN AMERICAN 50; HDL CHOLESTEROL 40 mg/dL (30-70)
[2017-12-15 06:40] LABS: LDL CHOLESTEROL 82 mg/dL (0-129)
--- NOTE | 2017-12-15 07:02 | CP.PCM.PN ---
Subjective - Date & Time of Evaluation Date of Evaluation: 12/15/17 Time of Evaluation: 07:00 - Subjective Subjective: Progress Note for Dr. Gutierres's Service Pt seen and examined at bedside. Has been cleared for D/C since Wednesday but family does not want pt to be discharged to correction. [employer] called yesterday for hypotension, resolved with repositioning. when asked how she is today she responds "same as always." Continues to have lower back pain and weakness in the legs b/l. Objective - Vital Signs/Intake and Output Vital Signs (last 24 hours): Temp Pulse Resp BP Pulse Ox 98.1 F 106 H 20 129/81 97 12/15/17 00:00 12/15/17 00:00 12/15/17 00:00 12/15/17 00:00 12/15/17 00:00 Intake and Output: 12/15/17 12/15/17 06:59 18:59 Intake Total 400 Output Total 1000 Balance -600 - Medications Medications: Current Medications Hydrocodone Bitart/Acetaminophen (Vicodin 5 Mg-300 Mg) 1 tab PO Q4H PRN PRN Reason: Pain, moderate (4-7) Stop: 12/21/17 16:45 Last Admin: 12/14/17 17:11 Dose: 1 tab Bupropion HCl (Wellbutrin) 150 mg PO DAILY [facility] Last Admin: 12/14/17 10:11 Dose: 150 mg Colchicine (Colocrys) 0.6 mg PO DAILY [facility] Last Admin: 12/14/17 10:11 Dose: 0.6 mg Cyclobenzaprine HCl (Flexeril) 5 mg PO TID [facility] Last Admin: 12/14/17 19:48 Dose: 5 mg Dextrose (Dextrose 50% Inj) 0 ml IV STAT PRN; Protocol PRN Reason: Hypoglycemia Protocol Dextrose (Glutose 15) 0 gm PO ONCE PRN; Protocol PRN Reason: Hypoglycemia Protocol Diazepam (Valium) 5 mg PO BID PRN PRN Reason: Pain, (4-7),MUSCLE SPASM Diltiazem HCl (Cardizem Cd) 120 mg PO DAILY [facility] Last Admin: 12/14/17 10:12 Dose: 120 mg Famotidine (Pepcid) 20 mg PO DAILY [facility] Last Admin: 12/14/17 10:11 Dose: 20 mg Fludrocortisone Acetate (Florinef) 0.1 mg PO DAILY [facility] Last Admin: 12/14/17 12:54 Dose: 0.1 mg Gabapentin (Neurontin) 300 mg PO TID [facility] Last Admin: 12/14/17 19:46 Dose: 300 mg Glipizide (Glucotrol) 10 mg PO BID [facility] Last Admin: 12/14/17 19:48 Dose: 10 mg Glucagon (Glucagen Diagnostic Kit) 0 mg IM STAT PRN; Protocol PRN Reason: Hypoglycemia Protocol Hydrocortisone (Cortef) 20 mg PO TID [facility] Last Admin: 12/14/17 19:46 Dose: 20 mg Hydroxyzine HCl (Atarax) 25 mg PO Q6 PRN PRN Reason: Anxiety Insulin Aspart (Novolog) 0 unit SC [facility] PRN Reason: Protocol Last Admin: 12/14/17 22:05 Dose: Not Given Insulin Human Isoph/Insulin Regular (Novolin 70/30 (70/30 Units/Ml) 10 Ml) 30 units SC ACB [facility] Insulin Human Isoph/Insulin Regular (Novolin 70/30 (70/30 Units/Ml) 10 Ml) 20 units SC ACD [facility] Last Admin: 12/14/17 17:36 Dose: 20 units Insulin Human NPH (Novolin N) 12 unit SC HS [facility] Last Admin: 12/14/17 22:00 Dose: 12 units Levothyroxine Sodium (Synthroid) 100 mcg PO DAILY@0630 [facility] Last Admin: 12/15/17 06:27 Dose: 100 mcg Lisinopril (Zestril) 10 mg PO DAILY [facility] Last Admin: 12/14/17 10:12 Dose: 10 mg Magnesium Oxide (Mag-Ox) 400 mg PO BID [facility] Last Admin: 12/14/17 19:47 Dose: 400 mg Metoprolol Tartrate (Lopressor) 25 mg PO BID [facility] Last Admin: 12/14/17 21:57 Dose: 25 mg Mirtazapine (Remeron) 15 mg PO HS [facility] Last Admin: 12/14/17 21:57 Dose: 15 mg Pantoprazole Sodium (Protonix Ec Tab) 40 mg PO DAILY [facility] Last Admin: 12/14/17 10:11 Dose: 40 mg Polyethylene Glycol (Miralax) 17 gm PO BID PRN PRN Reason: Constipation Last Admin: 12/14/17 19:46 Dose: 17 gm Rosuvastatin Calcium (Crestor) 10 mg PO [facility] Last Admin: 12/14/17 21:57 Dose: 10 mg Sennosides (Senokot Tab) 8.6 mg PO HS [facility] Last Admin: 12/14/17 21:57 Dose: 8.6 mg Sitagliptin Phosphate (Januvia) 100 mg PO DAILY [facility] Last Admin: 12/14/17 12:44 Dose: Not Given Trazodone HCl (Desyrel) 50 mg PO HS [facility] Last Admin: 12/14/17 22:04 Dose: Not Given Zolpidem Tartrate (Ambien) 5 mg PO HS PRN PRN Reason: Insomnia Last Admin: 12/05/17 22:02 Dose: 5 mg - Labs Labs: 12/15/17 06:07 12/15/17 06:07 PT 11.9 SECONDS (9.7-12.2) 12/15/17 06:07 INR 1.1 12/15/17 06:07 APTT 25 SECONDS (21-34) 12/06/17 07:02 - Constitutional Appears: No Acute Distress - Head Exam Head Exam: ATRAUMATIC, NORMOCEPHALIC - Eye Exam Eye Exam: EOMI - ENT Exam ENT Exam: Mucous Membranes Moist - Respiratory Exam Respiratory Exam: Clear to Ausculation Bilateral, NORMAL BREATHING PATTERN - Cardiovascular Exam Cardiovascular Exam: REGULAR RHYTHM - GI/Abdominal Exam GI & Abdominal Exam: Soft. absent: Tenderness - Neurological Exam Neurological Exam: Alert, Awake, Oriented x3 - Psychiatric Exam Psychiatric exam: Depressed - Skin Skin Exam: Dry, Warm Assessment and Plan - Assessment and Plan (Free Text) Plan: Awaiting placement for discharge Depression; severe -Psych Consult; Dr. 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 -gabapentin 300mg PO TID -Vicodin 5/300 1T po q6hrs prn -diazepam 5mg PO PRN (decreased 12/08/17) -Flexeril 5mg PO TID -PT/Eval and treat as movement is the best tx available for fibromyalgia -thoracic spinal MRI normal -Cervical spinal MRI shows C5/C6 lateral herniation without any neurological deficits present; osteophyte formation and osteoporosis -Lumbar spine MRI L3-L4 right foraminal stenosis, degenerative changes Hypothyroidism -12/02/17 TSH .21 -c/w current levothyroxine 100mg PO QD; recheck in 3 months Urinary Retention -c/w oxybutynin Previous unprovoked PE/DVT -daily INR and coumadin adjustments -IVC filter in place as per Dr. Gutierres Chronic Constipation 2/2 to opoid use -c/w stool softeners Insomnia Ambien 5mg PO qhs prn Trazodone 50mg PO qhs HLD -c/w rosuvastatin 10mg Gout; chronic -c/w colchicine -check uric acid tomorrow; goal below 8 HTN -c/w diltiazem 120mg PO daily, lisinopril 10 mg qd, and toprol xl 50mg qd Diabetes- poorly controlled -Restart metformin 500mg PO BID 12/08/17 -Glipizide 10mg PO BID -start januvia 100mg PO daily 12/09/17 -ISS -A1C 9.5 Prophylaxis -pepcid; on chronic high dose steroids Case discussed with Dr. Gutierres All management as per Dr. Gutierres Pt is pending placement into [facility] patient would benefit more from [place] placement however family is refusing patient needs to be weaned off of high dose steroids slowly to prevent adrenal failure
[2017-12-15] MEDS: (Novolin 70/30) NPH/Regular 70/30 Units/ml 10 ml vial SC SCH ×2 (08:23→17:57)
[2017-12-15] MEDS: (Novolog) Insulin Aspart, Recombinant 100 u/ml 10 ml vial SC SCH ×4 (08:23→21:55)
[2017-12-15] MEDS: Magnesium Oxide 400 mg Tab UD PO SCH ×2 (10:19→17:58)
[2017-12-15] MEDS: diltiaZEM 120 mg/24 Hours CD Cap PO SCH (10:20)
[2017-12-15] MEDS: Pantoprazole 40 mg EC Tab PO SCH (10:20)
[2017-12-15] MEDS: POLYETHYLENE GLYCOL 3350 17 GM/Dose PACKET PO PRN (16:47)
[2017-12-15] MEDS: (Novolin N) Insulin Human Isophane (NPH) 100 u/ml 10 ml vial SC SCH (21:56)
[2017-12-16 00:38] VITALS: RESP 20
[2017-12-16] MEDS: Levothyroxine 100 MCG TAB PO SCH (05:35)
[2017-12-16 07:16] LABS: BASO # 0.2 K/uL (0.0-0.2); EOS # 0.1 K/uL (0.0-0.7); RED CELL DISTRIBUTION WIDTH 14.3 % (11.5-14.5)
[2017-12-16 07:17] LABS: PROTHROMBIN TIME 10.5 SECONDS (9.7-12.2)
--- NOTE | 2017-12-16 07:24 | CP.PCM.PN ---
Subjective - Date & Time of Evaluation Date of Evaluation: 12/16/17 Time of Evaluation: 07:24 - Subjective Subjective: Progress Note for Dr. Gutierres's Service Pt seen and examined at bedside. Has been cleared for D/C since Wednesday but family does not want pt to be discharged to alf. She complains of constipation and states that her hemorrhoids are painful/inflammed. Objective - Vital Signs/Intake and Output Vital Signs (last 24 hours): Temp Pulse Resp BP Pulse Ox 98.3 F 106 H 20 146/85 94 L 12/16/17 00:00 12/16/17 00:00 12/16/17 00:00 12/16/17 00:00 12/16/17 00:00 Intake and Output: 12/16/17 12/16/17 06:59 18:59 Intake Total 650 Balance 650 - Medications Medications: Current Medications Hydrocodone Bitart/Acetaminophen (Vicodin 5 Mg-300 Mg) 1 tab PO Q4H PRN PRN Reason: Pain, moderate (4-7) Stop: 12/21/17 16:45 Last Admin: 12/14/17 17:11 Dose: 1 tab Bupropion HCl (Wellbutrin) 150 mg PO DAILY [facility] Last Admin: 12/15/17 10:19 Dose: 150 mg Colchicine (Colocrys) 0.6 mg PO DAILY [facility] Last Admin: 12/15/17 10:20 Dose: 0.6 mg Cyclobenzaprine HCl (Flexeril) 5 mg PO TID [facility] Last Admin: 12/15/17 17:58 Dose: 5 mg Dextrose (Dextrose 50% Inj) 0 ml IV STAT PRN; Protocol PRN Reason: Hypoglycemia Protocol Dextrose (Glutose 15) 0 gm PO ONCE PRN; Protocol PRN Reason: Hypoglycemia Protocol Diltiazem HCl (Cardizem Cd) 120 mg PO DAILY [facility] Last Admin: 12/15/17 10:20 Dose: 120 mg Famotidine (Pepcid) 20 mg PO DAILY [facility] Last Admin: 12/15/17 10:20 Dose: 20 mg Fludrocortisone Acetate (Florinef) 0.1 mg PO DAILY [facility] Last Admin: 12/15/17 10:20 Dose: 0.1 mg Gabapentin (Neurontin) 300 mg PO TID [facility] Last Admin: 12/15/17 17:58 Dose: 300 mg Glipizide (Glucotrol) 10 mg PO BID [facility] Last Admin: 12/15/17 17:58 Dose: 10 mg Glucagon (Glucagen Diagnostic Kit) 0 mg IM STAT PRN; Protocol PRN Reason: Hypoglycemia Protocol Hydrocortisone (Cortef) 20 mg PO TID [facility] Last Admin: 12/15/17 17:57 Dose: 20 mg Hydroxyzine HCl (Atarax) 25 mg PO Q6 PRN PRN Reason: Anxiety Insulin Aspart (Novolog) 0 unit SC ACHS [facility] PRN Reason: Protocol Last Admin: 12/15/17 21:55 Dose: Not Given Insulin Human Isoph/Insulin Regular (Novolin 70/30 (70/30 Units/Ml) 10 Ml) 30 units SC ACB [facility] Last Admin: 12/15/17 08:23 Dose: Not Given Insulin Human Isoph/Insulin Regular (Novolin 70/30 (70/30 Units/Ml) 10 Ml) 20 units SC ACD [facility] Last Admin: 12/15/17 17:57 Dose: 20 units Insulin Human NPH (Novolin N) 12 unit SC HS [facility] Last Admin: 12/15/17 21:56 Dose: 12 units Levothyroxine Sodium (Synthroid) 100 mcg PO DAILY@0630 [facility] Last Admin: 12/16/17 05:35 Dose: 100 mcg Lisinopril (Zestril) 10 mg PO DAILY [facility] Last Admin: 12/15/17 10:20 Dose: 10 mg Magnesium Oxide (Mag-Ox) 400 mg PO BID [facility] Last Admin: 12/15/17 17:58 Dose: 400 mg Metoprolol Tartrate (Lopressor) 25 mg PO BID [facility] Last Admin: 12/15/17 17:58 Dose: 25 mg Mirtazapine (Remeron) 15 mg PO [facility] Last Admin: 12/15/17 21:55 Dose: 15 mg Pantoprazole Sodium (Protonix Ec Tab) 40 mg PO DAILY [facility] Last Admin: 12/15/17 10:20 Dose: 40 mg Polyethylene Glycol (Miralax) 17 gm PO BID PRN PRN Reason: Constipation Last Admin: 12/15/17 16:47 Dose: 17 gm Rosuvastatin Calcium (Crestor) 10 mg PO [facility] Last Admin: 12/15/17 21:54 Dose: 10 mg Sennosides (Senokot Tab) 8.6 mg PO HS [facility] Last Admin: 12/15/17 21:55 Dose: 8.6 mg Sitagliptin Phosphate (Januvia) 100 mg PO DAILY [facility] Last Admin: 12/15/17 10:24 Dose: 100 mg Trazodone HCl (Desyrel) 50 mg PO HS [facility] Last Admin: 12/15/17 21:54 Dose: 50 mg Warfarin Sodium (Coumadin) 3 mg PO 1800 [facility] Stop: 12/16/17 18:01 Zolpidem Tartrate (Ambien) 5 mg PO HS PRN PRN Reason: Insomnia Last Admin: 12/05/17 22:02 Dose: 5 mg - Labs Labs: 12/15/17 06:07 12/15/17 06:07 PT 10.5 SECONDS (9.7-12.2) 12/16/17 07:05 INR 1.0 12/16/17 07:05 APTT 25 SECONDS (21-34) 12/06/17 07:02 - Constitutional Appears: No Acute Distress - Head Exam Head Exam: ATRAUMATIC, NORMOCEPHALIC - Eye Exam Eye Exam: EOMI - ENT Exam ENT Exam: Mucous Membranes Moist - Respiratory Exam Respiratory Exam: Clear to Ausculation Bilateral - Cardiovascular Exam Cardiovascular Exam: REGULAR RHYTHM, +S1, +S2 - GI/Abdominal Exam GI & Abdominal Exam: Soft. absent: Tenderness - Neurological Exam Neurological Exam: Alert, Awake, Oriented x3 - Psychiatric Exam Psychiatric exam: Normal Affect, Normal Mood - Skin Skin Exam: Dry, Warm Assessment and Plan - Assessment and Plan (Free Text) Plan: Depression; severe -Psych Consult; Dr. 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 -gabapentin 300mg PO TID -Vicodin 5/300 1T po q6hrs prn -diazepam 5mg PO PRN (decreased 12/08/17) -Flexeril 5mg PO TID -PT/Eval and treat as movement is the best tx available for fibromyalgia -thoracic spinal MRI normal -Cervical spinal MRI shows C5/C6 lateral herniation without any neurological deficits present; osteophyte formation and osteoporosis -Lumbar spine MRI L3-L4 right foraminal stenosis, degenerative changes Constipation Fleet enema x1 Hemorrhoids Anusol cream BID Hypothyroidism -12/02/17 TSH .21 -c/w current levothyroxine 100mg PO QD; recheck in 3 months Urinary Retention -c/w oxybutynin Previous unprovoked PE/DVT -daily INR and coumadin adjustments -IVC filter in place as per Dr. Gutierres Chronic Constipation 2/2 to opoid use -c/w stool softeners Insomnia Ambien 5mg PO qhs prn Trazodone 50mg PO qhs HLD -c/w rosuvastatin 10mg Gout; chronic -c/w colchicine -check uric acid tomorrow; goal below 8 HTN -c/w diltiazem 120mg PO daily, lisinopril 10 mg qd, and toprol xl 50mg qd Diabetes- poorly controlled -Restart metformin 500mg PO BID 12/08/17 -Glipizide 10mg PO BID -start januvia 100mg PO daily 12/09/17 -ISS -A1C 9.5 Prophylaxis -pepcid; on chronic high dose steroids Warfarin 3mg PO QHS- monitor inr Pt is pending placement into [facility] patient would benefit more from NH placement however family is refusing patient needs to be weaned off of high dose steroids slowly to prevent adrenal failure Case discussed with Dr. Gutierres All management as per Dr. Gutierres
[2017-12-16 07:51] LABS: ALB/GLOB RATIO 1.2 (1.0-2.1); ALBUMIN 3.3 g/dL (3.5-5.0); ALT/SGPT 82 U/L (9-52); AST/SGOT 35 U/L (14-36); BLOOD UREA NITROGEN 38 mg/dL (7-17); CALCIUM 9.1 mg/dl (8.6-10.4); GFR AFRICAN-AMERICAN > 60; GFR NON-AFRICAN AMERICAN > 60
[2017-12-16 08:04] LABS: BASO % 1.1 % (0.0-2.0); EOS % 0.6 % (0.0-4.0); HEMOGLOBIN 10.7 g/dL (11.0-16.0); LYMPH # 2.4 K/uL (1.0-4.3); LYMPH % 14.8 % (20.0-40.0); MEAN CELL VOLUME 79.4 fL (81.0-99.0); MEAN CORPUSCULAR HEMOGLOBIN 24.9 pg (27.0-31.0); MEAN CORPUSCULAR HGB CONC 31.4 g/dL (33.0-37.0); MEAN PLATELET VOLUME 9.5 fL (7.2-11.7); MONO # 1.1 K/uL (0.0-0.8); MONO % 7.1 % (0.0-10.0); NEUT # 12.1 K/uL (1.8-7.0); NEUT % 76.4 % (50.0-75.0); NRBC % 0.4 % (0.0-2.0); RBC 4.29 Mil/uL (3.80-5.20); WHITE BLOOD COUNT 15.9 K/uL (4.8-10.8)
--- NOTE | 2017-12-16 08:05 | PN ---
DATE: 12/15/2017 ENDOCRINOLOGY FOLLOWUP NOTE LOCATION: Room 351. SUBJECTIVE: This is a 62-year-old female with recent uncontrolled type 2 insulin-requiring diabetes, presenting here with severe lower back pain, refractory to outpatient pain management and is also being followed closely here for metabolic management because of recent hyperglycemic accelerations and also the possibility of secondary adrenal insufficiency from the long-term steroid usage thereof. Her latest glucose values are fluctuating with the nursing staff holding the morning insulin regimen with a normal glucose level of 130 mg/dL. The repeat glucose at the lunch time was 303 as expected with the holding of the morning insulin regimen as described. Her hemoglobin A1c is 9.5% which is also elevated and indicative of suboptimal metabolic control by diabetic condition even prior to this admission. Her latest chemistry showed a BUN of 37, sodium 143, potassium 4.2, chloride 107, CO2 of 24, glucose 108, and creatinine 1.1. Her bedtime glucose was 344 mg/dL. Her serum cortisol level is 15.5, which is actually optimal in terms of the current oral steroids replacement therapy as given. Her TSH level is slightly suppressive 0.10, which is expected in patients with intercurrent steroid therapy as given. ASSESSMENT: Uncontrolled type 2 insulin-requiring diabetes with marked hyperglycemic acceleration, related to a subtherapeutic insulin regimen. She also remains clinically euadrenal with possible secondary hypoadrenalism or adrenal insufficiency from long-term steroid replacement therapy. However, at this time, her biochemical indices for the serum cortisol are actually optimal as noted. PLAN OF MANAGEMENT: We will continue the same basal and premixed insulin regimen to allow for dose equilibration especially with the nursing staff holding the morning regimen as noted. We will continue the Novolin 70/30, given as 30 units before breakfast and 20 units before dinner with NPH given as 12 units subcutaneous at bedtime daily as given. We will titrate increments as indicated to optimize metabolic control. We will look and supplement accordingly as needed. We will continue also her hydrocortisone given at the high dose of 20 mg p.o. t.i.d. at this time, but we will taper down to b.i.d. and observe her metabolic and clinical response thereof. We will follow this. Neeru Dickson MD
[2017-12-16] MEDS: (Novolin 70/30) NPH/Regular 70/30 Units/ml 10 ml vial SC SCH (08:30)
[2017-12-16] MEDS: (Novolog) Insulin Aspart, Recombinant 100 u/ml 10 ml vial SC SCH ×3 (08:30→16:30)
[2017-12-16 09:00] VITALS: O2SAT 96
[2017-12-16] MEDS: Pantoprazole 40 mg EC Tab PO SCH (10:09)
[2017-12-16] MEDS: Magnesium Oxide 400 mg Tab UD PO SCH ×2 (10:09→17:06)
[2017-12-16] MEDS: diltiaZEM 120 mg/24 Hours CD Cap PO SCH (10:10)
--- NOTE | 2017-12-16 14:21 | CP.PCM.PN ---
Subjective - Date & Time of Evaluation Date of Evaluation: 12/16/17 Time of Evaluation: 14:16 - Subjective Subjective: ENVIRONMENTAL PROJECT MANAGER NOTIFIED BY SW AND CM THAT PT HAS REC'D AUTH FROM INSURANCE COMPANY FOR [facility] AT [facility]. PAGED RESIDENT COVERING THIS PT SEVERAL TIMES WITHOUT RESPONSE. DISCUSSED ENVIRONMENTAL PROJECT MANAGER DISCHARGING PT FOR DR. BELLA AND OK PER HIM. PT TO BE PLACED UNDER HIS SERVICE AT [facility]. SW TO ARRANGE FOR TRANSPORTATION TO FACILITY THIS EVENING. NO FURTHER ORDERS. -PLACE UNDER THE SERVICE OF DR. BELLA AT [facility]---CALL UPON ARRIVAL FOR ADMITTING ORDERS. -COUMADIN DAILY DOSES PER DR. BELLA. -PHYSICAL THERAPY TOLERATED. -CONTINUE MEDICATIONS PER THE MED REC FORM---CHANGES CAN BE MADE BY DR. BELLA. -FOR FURTHER ORDERS, CONTACT DR. BELLA. Objective - Vital Signs/Intake and Output Vital Signs (last 24 hours): Temp Pulse Resp BP Pulse Ox 98.3 F 110 H 20 136/86 96 12/16/17 08:00 12/16/17 08:00 12/16/17 08:00 12/16/17 10:09 12/16/17 08:00 Intake and Output: 12/16/17 12/16/17 06:59 18:59 Intake Total 650 Balance 650 - Medications Medications: Current Medications Hydrocodone Bitart/Acetaminophen (Vicodin 5 Mg-300 Mg) 1 tab PO Q4H PRN PRN Reason: Pain, moderate (4-7) Stop: 12/21/17 16:45 Last Admin: 12/14/17 17:11 Dose: 1 tab Bupropion HCl (Wellbutrin) 150 mg PO DAILY [facility] Last Admin: 12/16/17 10:10 Dose: 150 mg Colchicine (Colocrys) 0.6 mg PO DAILY [facility] Last Admin: 12/16/17 10:11 Dose: 0.6 mg Cyclobenzaprine HCl (Flexeril) 5 mg PO TID [facility] Last Admin: 12/16/17 13:35 Dose: 5 mg Dextrose (Dextrose 50% Inj) 0 ml IV STAT PRN; Protocol PRN Reason: Hypoglycemia Protocol Dextrose (Glutose 15) 0 gm PO ONCE PRN; Protocol PRN Reason: Hypoglycemia Protocol Diltiazem HCl (Cardizem Cd) 120 mg PO DAILY [facility] Last Admin: 12/16/17 10:10 Dose: 120 mg Famotidine (Pepcid) 20 mg PO DAILY [facility] Last Admin: 12/16/17 10:14 Dose: 20 mg Fludrocortisone Acetate (Florinef) 0.1 mg PO DAILY [facility] Last Admin: 12/16/17 10:11 Dose: 0.1 mg Gabapentin (Neurontin) 300 mg PO TID [facility] Last Admin: 12/16/17 13:36 Dose: 300 mg Glipizide (Glucotrol) 10 mg PO BID [facility] Last Admin: 12/16/17 10:09 Dose: 10 mg Glucagon (Glucagen Diagnostic Kit) 0 mg IM STAT PRN; Protocol PRN Reason: Hypoglycemia Protocol Hydrocortisone (Cortef) 20 mg PO TID [facility] Last Admin: 12/16/17 13:35 Dose: 20 mg Hydrocortisone (Anusol-Hc) 25 mg MA BID [facility] Last Admin: 12/16/17 13:48 Dose: 25 mg Hydroxyzine HCl (Atarax) 25 mg PO Q6 PRN PRN Reason: Anxiety Insulin Aspart (Novolog) 0 unit SC ACHS [facility] PRN Reason: Protocol Last Admin: 12/16/17 12:30 Dose: 3 units Insulin Human Isoph/Insulin Regular (Novolin 70/30 (70/30 Units/Ml) 10 Ml) 30 units SC ACB [facility] Last Admin: 12/16/17 08:30 Dose: 30 units Insulin Human Isoph/Insulin Regular (Novolin 70/30 (70/30 Units/Ml) 10 Ml) 20 units SC ACD [facility] Last Admin: 12/15/17 17:57 Dose: 20 units Insulin Human NPH (Novolin N) 12 unit SC HS [facility] Last Admin: 12/15/17 21:56 Dose: 12 units Levothyroxine Sodium (Synthroid) 100 mcg PO DAILY@0630 [facility] Last Admin: 12/16/17 05:35 Dose: 100 mcg Lisinopril (Zestril) 10 mg PO DAILY [facility] Last Admin: 12/16/17 10:09 Dose: 10 mg Magnesium Oxide (Mag-Ox) 400 mg PO BID [facility] Last Admin: 12/16/17 10:09 Dose: 400 mg Metoprolol Tartrate (Lopressor) 25 mg PO BID [facility] Last Admin: 12/16/17 10:09 Dose: 25 mg Mirtazapine (Remeron) 15 mg PO [facility] Last Admin: 12/15/17 21:55 Dose: 15 mg Pantoprazole Sodium (Protonix Ec Tab) 40 mg PO DAILY [facility] Last Admin: 12/16/17 10:09 Dose: 40 mg Polyethylene Glycol (Miralax) 17 gm PO BID PRN PRN Reason: Constipation Last Admin: 12/15/17 16:47 Dose: 17 gm Rosuvastatin Calcium (Crestor) 10 mg PO HS [facility] Last Admin: 12/15/17 21:54 Dose: 10 mg Sennosides (Senokot Tab) 8.6 mg PO HS [facility] Last Admin: 12/15/17 21:55 Dose: 8.6 mg Sitagliptin Phosphate (Januvia) 100 mg PO DAILY [facility] Last Admin: 12/16/17 10:14 Dose: 100 mg Trazodone HCl (Desyrel) 50 mg PO HS [facility] Last Admin: 12/15/17 21:54 Dose: 50 mg Warfarin Sodium (Coumadin) 3 mg PO 1800 [facility] Stop: 12/16/17 18:01 Zolpidem Tartrate (Ambien) 5 mg PO HS PRN PRN Reason: Insomnia Last Admin: 12/05/17 22:02 Dose: 5 mg - Labs Labs: 12/16/17 07:05 12/16/17 07:05 PT 10.5 SECONDS (9.7-12.2) 12/16/17 07:05 INR 1.0 12/16/17 07:05 APTT 25 SECONDS (21-34) 12/06/17 07:02
[2017-12-16 15:42] VITALS: BP 122/79; PULSE 76; TEMP 98
[2017-12-16] MEDS ORDERED: (Novolin 70/30) NPH/Regular 70/30 Units/ml 10 ml vial SC SCH (16:30)
--- NOTE | 2017-12-16 20:55 | PN ---
DATE: 12/16/2017 ENDOCRINOLOGY FOLLOWUP NOTE LOCATION: Room 351. This is a 62-year-old female with recent uncontrolled type 2 insulin-requiring diabetes, presenting here with intractable lower back pain, refractory to outpatient pain management and is now being followed closely for metabolic management. She also has secondary adrenal insufficiency with possible resurgence of the same but the repeat cortisol levels actually were near optimal, and the last cortisol value obtained was 15.5 mcg/dL. So, at this time, we will continue the same hydrocortisone given as 20 mg t.i.d. as given although this is a quite a high dose and this is really supraphysiological or suprapharmacological, in terms of the dosing regimen. Ideally, this would really need only a b.i.d. dosing of cortisone replacement therapy. Her glycemic levels are also fluctuating because of the variability of her oral intake as per the nursing staff. So, we will discontinue the NPH given at bedtime to just 12 units as ordered. We will lower and modify the premixed insulin regimen with Novolin 70/30 given as 24 units before breakfast and 14 units before dinner to start today. We will continue the low dose correction scale using regular insulin as given. We will obtain serial chemistries and supplement accordingly as needed. We will follow with you. Neeru Dickson MD
[2017-12-17] MEDS ORDERED: (Novolin 70/30) NPH/Regular 70/30 Units/ml 10 ml vial SC SCH (07:30)
== END 2017-12-16 19:15 | DRG 552 ==
LOC: C.ER 11:02 → C.9E 15:18 → C.3T 16:04 → OBSVTOIN 12-06 12:29 → C.3T 12-10 13:45
PROVIDERS: ADMIT Internal Medicine Pulmonary Disease; ATTEND Internal Medicine Pulmonary Disease
DX: M54.5 Low back pain (principal); E27.49 Other adrenocortical insufficiency; F33.2 Major depressive disorder, recurrent severe without psychotic features; F41.1 Generalized anxiety disorder; G89.29 Other chronic pain; E78.5 Hyperlipidemia, unspecified; E11.65 Type 2 diabetes mellitus with hyperglycemia; E03.9 Hypothyroidism, unspecified; J44.9 Chronic obstructive pulmonary disease, unspecified; K59.09 Other constipation; K64.9 Unspecified hemorrhoids; M06.9 Rheumatoid arthritis, unspecified; R29.6 Repeated falls; Z79.4 Long term (current) use of insulin; Z86.711 Personal history of pulmonary embolism; Z87.891 Personal history of nicotine dependence; I50.9 Heart failure, unspecified; I11.0 Hypertensive heart disease with heart failure; M15.9 Polyosteoarthritis, unspecified

== ENCOUNTER 2018-01-03 16:44 | Inpatient (IN) | payer BC, MEDICARE ==
[2018-01-03 16:44] VITALS: BMI 29.9
[2018-01-03] MEDS ORDERED: Piperacillin/Tazobact 3.375 gm 100 ML IV STA (17:24)
[2018-01-03] MEDS ORDERED: Vancomycin 1 GM 1 GM/250 ML BAG IV SCH (17:30)
[2018-01-03 17:42] LABS: BASO % 0.4 % (0.0-2.0); EOS % 0.2 % (0.0-4.0); HEMOGLOBIN 10.5 g/dL (11.0-16.0); LYMPH # 1.1 K/uL (1.0-4.3); LYMPH % 11.6 % (20.0-40.0); MEAN CELL VOLUME 79.4 fL (81.0-99.0); MEAN CORPUSCULAR HEMOGLOBIN 24.5 pg (27.0-31.0); MEAN CORPUSCULAR HGB CONC 30.8 g/dL (33.0-37.0); MEAN PLATELET VOLUME 8.4 fL (7.2-11.7); MONO # 0.5 K/uL (0.0-0.8); MONO % 5.5 % (0.0-10.0); NEUT % 82.3 % (50.0-75.0); RBC 4.3 Mil/uL (3.80-5.20); RED CELL DISTRIBUTION WIDTH 14.7 % (11.5-14.5); WHITE BLOOD COUNT 9.8 K/uL (4.8-10.8)
[2018-01-03] MEDS ORDERED: Piperacillin/Tazobact 3.375 gm 100 ML IVPB ONE (17:49)
--- NOTE | 2018-01-03 18:03 | RAD ---
PROCEDURE: CHEST RADIOGRAPH, 1 VIEW HISTORY: SOB COMPARISON: Portable chest 12/04/2017. FINDINGS: LUNGS: Linear atelectasis seen at the right perihilar region with limited airspace disease noted at the left base once again, borderline increased in the interval. PLEURA: No pneumothorax or pleural fluid seen. CARDIOVASCULAR: Cardiomegaly stable. No pulmonary vascular congestion. OSSEOUS STRUCTURES: No significant abnormalities. VISUALIZED UPPER ABDOMEN: Tip of IVC filter reiterated. OTHER FINDINGS: None. IMPRESSION: Mild increase in potential left basilar airspace disease reiterated with linear atelectasis identified lateral to the right hilum.
--- NOTE | 2018-01-03 18:05 | C.PDOC ---
History Of Present Illness 62 y/o female presents to ED with c/o sob and cough for 2 days. Patient is debilitated and home bound. Patient denies chest pain, nausea, vomiting, leg swelling, back pain or any other complaints at this time. Time Seen by Provider: 01/03/18 17:20 Chief Complaint (Nursing): Shortness Of Breath History Per: Patient History/Exam Limitations: no limitations Onset/Duration Of Symptoms: Days Current Symptoms Are (Timing): Still Present Past Medical History Reviewed: Historical Data, Nursing Documentation, Vital Signs Vital Signs: Last Vital Signs Temp 98.4 F 01/03/18 22:25 Pulse 112 H 01/03/18 22:25 Resp 24 01/03/18 22:25 BP 108/60 01/03/18 22:25 Pulse Ox 97 01/03/18 22:25 - Medical History PMH: Anemia, Anxiety, Arthritis (R THR /ORIF), Asthma, Cardia Arrhythmia, CHF, COPD, Depression, Diabetes, Deep Vein Thrombosis, Fibromyalgia, Fractures (R HIP ), Gall Bladder Disease, HTN, Hypercholesterolemia, Hyperlipidemia, Hypothyroidism, Pulmonary Embolism (on Coumadin W/ IVC filter), Rheumatoid Arthritis Surgical History: Back Surgery, Cholecystectomy - [facility] Procedures CENTRAL VENOUS CATHETER PLACEMENT WITH GUIDANCE (09/28/14) ENDOSC POLYPECTOMY OF LG INTEST (09/08/14) ESOPHAGOGASTRODUODENOSCOPY [EGD] W/CLOSED BIOPSY (09/08/14) EXCISION OF STOMACH, ENDO, DIAGN (11/19/15) REPOSITION R UP FEMUR WITH INTRAMED FIX, OPEN APPROACH (03/14/17) SPINAL CANAL EXPLOR NEC (09/08/14) Family History: States: No Known Family Hx - Social History Hx Tobacco Use: No Hx Alcohol Use: No Hx Substance Use: No - Immunization History Hx Tetanus Toxoid Vaccination: Yes Hx Influenza Vaccination: No Hx Pneumococcal Vaccination: No Review Of Systems Constitutional: Negative for: Fever, Chills Cardiovascular: Negative for: Chest Pain Respiratory: Positive for: Cough, Shortness of Breath Gastrointestinal: Negative for: Nausea, Vomiting Skin: Negative for: Rash Physical Exam - Physical Exam Appears: Non-toxic, No Acute Distress Skin: Warm, Dry, Pale Head: Atraumatic, Normacephalic Eye(s): bilateral: PERRL, EOMI Oral Mucosa: Moist Neck: Normal ROM, Supple Cardiovascular: Rhythm Regular Respiratory: Rales, No Rhonchi, No Wheezing Gastrointestinal/Abdominal: Soft, No Tenderness, No Guarding, No Rebound, Other (obese abdomen) Extremity: No Pedal Edema, Capillary Refill (<2 seconds) Neurological/Psych: Oriented x3, Normal Speech, Normal Cognition ED Course And Treatment - Laboratory Results Result Diagrams: 01/03/18 17:38 01/03/18 17:38 Lab Interpretation: Abnormal (+ elev glu, + microcytic anemia.) ECG: Interpreted By Me, Viewed By Me ECG Rhythm: Sinus Tachycardia Rate From EC (BPM) O2 Sat by Pulse Oximetry: 93 (RA) Pulse Ox Interpretation: Abnormal Reevaluation Time: 18:30 Reassessment Condition: Improved - Physician Consult Information Outcome Of Conversation: 1800: d/w elliot Juarez to admit Disposition Doctor Will See Patient In The: Hospital Counseled Patient/Family Regarding: Studies Performed, Diagnosis - Disposition Disposition: HOSPITALIZED Disposition Time: 18:00 Condition: FAIR - Clinical Impression Clinical Impression: Pneumonia - Scribe Statement The provider has reviewed the documentation as recorded by the Rafaelibcourt Mejía All medical record entries made by the Rafaelibcourt were at my direction and personally dictated by me. I have reviewed the chart and agree that the record accurately reflects my personal performance of the history, physical exam, medical decision making, and the department course for this patient. I have also personally directed, reviewed, and agree with the discharge instructions and disposition.
[2018-01-03] MEDS ORDERED: Albuterol-Ipratrop 3 mg / 0.5 (3 ml) UD INH STA ×2 (18:07→21:17)
[2018-01-03 18:08] LABS: B-TYPE NATRIURETIC PEPTIDE 969 pg/mL (0-900)
[2018-01-03 18:12] LABS: ALBUMIN 2.8 g/dL (3.5-5.0); ALT/SGPT 191 U/L (9-52); AST/SGOT 96 U/L (14-36); BLOOD UREA NITROGEN 33 mg/dL (7-17); GFR AFRICAN-AMERICAN > 60; GFR NON-AFRICAN AMERICAN > 60
[2018-01-03] MEDS ORDERED: Potassium Chloride 10 mEq ER Tab PO STA (18:28)
[2018-01-03] MEDS ORDERED: Albuterol-Ipratrop 3 mg / 0.5 (3 ml) UD ONE ×2 (18:29→21:23)
[2018-01-03] MEDS ORDERED: Potassium Chloride 10 mEq ER Tab PO ONE (19:07)
[2018-01-03] MEDS ORDERED: Vancomycin 1 gm/NS 200 ml 1 GM/200 ML BAG IVPB ONE (19:30)
[2018-01-03 19:46] LABS: SQUAMOUS EPITHIAL 3 /hpf (0-5); URINE BACTERIA MOD (<OCC); URINE BILIRUBIN NEGATIVE (NEGATIVE); URINE BLOOD 1+ (NEGATIVE); URINE CLARITY Hazy (Clear); URINE COLOR Yellow (YELLOW); URINE GLUCOSE (UA) NORMAL (Normal); URINE LEUKOCYTE ESTERASE 2+ Leu/uL (Negative); URINE PROTEIN 1+ mg/dL (NEGATIVE); URINE UROBILINOGEN NORMAL mg/dL (0.2-1.0)
[2018-01-03] MEDS ORDERED: Promethazine 6.25 MG/5 ML CUP PO PRN (21:28)
[2018-01-03] MEDS: MethylPREDNISolone 40 mg Vial IVP SCH (23:00)
[2018-01-04] MEDS: Albuterol-Ipratrop 3 mg / 0.5 (3 ml) UD INH SCH ×6 (00:32→19:50)
[2018-01-04] MEDS: MethylPREDNISolone 40 mg Vial IVP SCH ×4 (04:07→21:46)
[2018-01-04] MEDS: Levothyroxine 100 MCG TAB PO SCH (05:56)
[2018-01-04] MEDS ORDERED: (Novolog) Insulin Aspart, Recombinant 100 u/ml 10 ml vial SC SCH ×3 (07:30→12:27)
[2018-01-04] MEDS ORDERED: Glucagon Recombinant 1 mg Inj IM PRN (08:54)
[2018-01-04] MEDS ORDERED: Dextrose 50% SYRINGE Inj (50 ml) IV PRN (08:54)
--- NOTE | 2018-01-04 08:57 | CP.PCM.PN ---
Subjective - Date & Time of Evaluation Date of Evaluation: 01/04/18 Time of Evaluation: 08:57 - Subjective Subjective: Internal Medicine Progress Note - Dr Gutierres Service Patient seen and examined at bedside. Per nursing no acute events overnight. Patient is states that shortness of breath is improving however she is still experiencing productive cough. Sputum is greening brown in color. She is tolerating being on 4L nasal cannula. Denies fever/chills, headaches, dizziness , cp, palpitations, abdominal pain, urinary symptoms. Objective - Vital Signs/Intake and Output Vital Signs (last 24 hours): Temp Pulse Resp BP Pulse Ox 98.5 F 92 H 20 126/70 93 L 01/03/18 23:35 01/04/18 08:06 01/03/18 23:35 01/03/18 23:35 01/04/18 00:26 - Medications Medications: Current Medications Acetaminophen (Tylenol 325mg Tab) 650 mg PO Q6 PRN PRN Reason: pain/fever\ Hydrocodone Bitart/Acetaminophen (Vicodin 5 Mg-300 Mg) 1 tab PO Q6H PRN PRN Reason: Pain, moderate (4-7) Stop: 01/10/18 22:13 Albuterol/Ipratropium (Duoneb 3 Mg/0.5 Mg (3 Ml) Ud) 3 ml INH RQ4 [facility] Last Admin: 01/04/18 08:00 Dose: 3 ml Bupropion HCl (Wellbutrin) 75 mg PO DAILY [facility] Colchicine (Colocrys) 0.6 mg PO DAILY [facility] Cyclobenzaprine HCl (Flexeril) 5 mg PO TID [facility] Dextrose (Dextrose 50% Inj) 0 ml IV STAT PRN; Protocol PRN Reason: Hypoglycemia Protocol Dextrose (Glutose 15) 0 gm PO ONCE PRN; Protocol PRN Reason: Hypoglycemia Protocol Diazepam (Valium) 5 mg PO BID PRN PRN Reason: Anxiety Diltiazem HCl (Cardizem Cd) 120 mg PO DAILY [facility] Famotidine (Pepcid) 20 mg PO DAILY [facility] Fludrocortisone Acetate (Florinef) 0.1 mg PO DAILY [facility] Furosemide (Lasix) 20 mg PO DAILY [facility] Gabapentin (Neurontin) 300 mg PO TID [facility] Glipizide (Glucotrol) 10 mg PO BIDAC [facility] Glucagon (Glucagen Diagnostic Kit) 0 mg IM STAT PRN; Protocol PRN Reason: Hypoglycemia Protocol Hydrocortisone (Cortef) 20 mg PO TID [facility] Hydrocortisone (Anusol-Hc) 1 gm HI BID [facility] Azithromycin (Zithromax 500mg In Ns Addvantage) 500 mg in 250 mls @ 167 mls/hr IVPB Q24H [facility] PRN Reason: Protocol Ceftriaxone Sodium (Rocephin Iv 1 Gm Duplex) 50 mls @ 100 mls/hr IVPB DAILY [facility] PRN Reason: Protocol Dextrose (Dextrose 5% In Water 1000 Ml) 1,000 mls @ 0 mls/hr IV .Q0M PRN; Protocol; Per Protocol PRN Reason: Hypoglycemia Protocol Insulin Aspart (Novolog) 0 unit SC ACHS [facility] PRN Reason: Protocol Insulin Human Isoph/Insulin Regular (Novolin 70/30 (70/30 Units/Ml) 10 Ml) 20 units SC ACD [facility] Insulin Human Isoph/Insulin Regular (Novolin 70/30 (70/30 Units/Ml) 10 Ml) 30 units SC ACB [facility] Insulin Human NPH (Novolin N) 12 unit SC HS [facility] Levothyroxine Sodium (Synthroid) 100 mcg PO DAILY@0630 [facility] Last Admin: 01/04/18 05:56 Dose: 100 mcg Lisinopril (Zestril) 10 mg PO DAILY [facility] Magnesium Oxide (Mag-Ox) 400 mg PO DAILY [facility] Methylprednisolone (Solu-Medrol) 40 mg IVP Q6H [facility] Last Admin: 01/04/18 04:07 Dose: 40 mg Metoprolol Tartrate (Lopressor) 25 mg PO BID [facility] Mirtazapine (Remeron) 15 mg PO HS [facility] Last Admin: 01/03/18 23:00 Dose: 15 mg Pantoprazole Sodium (Protonix Ec Tab) 20 mg PO DAILY [facility] Promethazine HCl (Phenergan Syrup) 6.25 mg PO QID PRN PRN Reason: Cough Rivaroxaban (Xarelto) 20 mg PO DAILY [facility] Senna/Docusate Sodium (Senokot S 50 Mg-8.6 Mg) 1 tab PO HS [facility] Sitagliptin Phosphate (Januvia) 100 mg PO DAILY [facility] - Labs Labs: 01/03/18 17:38 01/03/18 17:38 Assessment and Plan - Assessment and Plan (Free Text) Assessment: A/P: Patient is a 62 year old female with past medical history of Gout, Diabetes Mellitus, HTN, DVT/PE, presented to the ED for shortness of breath and cough. Patient was febrile at 102.6 on arrival. Shortness of breath 2/2 HCAP vs COPD exacerbation -Stable, afebrile (tmax 100.6) -Supplemental O2 as needed, Bipap prn -CXR showed mild increase in potential left basilar airspace disease reinterated with linear atelectasis identified lateral to the right hilum -Antibiotics: Azithromax 500mg Q24 hours, Rocephin 1 gm daily -F/U strep pnuemonia, urine legionella, mycoplasma, procalcitonin -F/U sputum cultures, blood cultures -Solumedrol 40mg IVP Q6H -Phenergan 6.25mg PO QID prn cough Diastolic Congestive Heart Failure -Last echo 2016 showed Grade III reversible restrictive diastolic dysfunction, EF 55% -Continue Lasix 20mg PO daily Abnormal UA -UA positive for nitrates and leukocyte esterase -F/U urine cultures -Antibiotics: Rocephin 1 gm daily Diabetes Mellitus -Insulin sliding scale -Monitor accuchecks -Novolin 30 units ABC, Novolin 20 units ACD, Novolin 12 units HS -Januvia 100mg PO daily, Glipizide 10mg PO BID -Hypoglycemia protocol History of Hypertension -Continue Lisinopril 10mg PO daily -Continue Lopressor 25mg PO BID -Cardizem 120mg PO daily Elevated LFTs -F/U hepatitis panel -Continue to monitor Hypokalemia -Monitor and replete as needed Hypothyroidism -Continue Synthroid 100mcg PO daily History of DVT/PE -Continue Xarelto 20mg PO daily GI/DVT ppx: -Protonix 40mg PO daily -Xarelto 20mg PO daily Plan discussed with Dr Nenita Cortez DO PGY-2
[2018-01-04 09:32] LABS: BASO % 0.1 % (0.0-2.0); HEMOGLOBIN 9.6 g/dL (11.0-16.0); LYMPH # 0.3 K/uL (1.0-4.3); LYMPH % 2.7 % (20.0-40.0); MEAN CORPUSCULAR HEMOGLOBIN 24.4 pg (27.0-31.0); MEAN CORPUSCULAR HGB CONC 30.6 g/dL (33.0-37.0); MEAN PLATELET VOLUME 8.6 fL (7.2-11.7); MONO # 0.1 K/uL (0.0-0.8); MONO % 1.3 % (0.0-10.0); NEUT # 9.6 K/uL (1.8-7.0); NEUT % 95.9 % (50.0-75.0); NRBC % 0.1 % (0.0-2.0); PLATELET COUNT 189 K/uL (130-400); RBC 3.92 Mil/uL (3.80-5.20); RED CELL DISTRIBUTION WIDTH 14.7 % (11.5-14.5)
[2018-01-04 09:35] LABS: INR 1.7
[2018-01-04] MEDS: diltiaZEM 120 mg/24 Hours CD Cap PO SCH (09:43)
[2018-01-04 09:46] LABS: ALB/GLOB RATIO 1.1 (1.0-2.1); ALBUMIN 2.8 g/dL (3.5-5.0); ALT/SGPT 195 U/L (9-52); AST/SGOT 84 U/L (14-36); BLOOD UREA NITROGEN 36 mg/dL (7-17); CALCIUM 8.4 mg/dl (8.6-10.4); GFR AFRICAN-AMERICAN > 60; GFR NON-AFRICAN AMERICAN 56
[2018-01-04] MEDS: Magnesium Oxide 400 mg Tab UD PO SCH (09:46)
[2018-01-04] MEDS: Pantoprazole 20 mg EC Tab PO SCH (09:46)
[2018-01-04] MEDS ORDERED: guaiFENesin 100 mg/5 ml Syrup UD PO PRN (09:47)
[2018-01-04] MEDS: (Novolin 70/30) NPH/Regular 70/30 Units/ml 10 ml vial SC SCH ×2 (09:49→18:51)
[2018-01-04] MEDS: cefTRIAXone IV 1 gm in Dextros 50 ML IVPB SCH (10:01)
[2018-01-04 10:09] LABS: BANDS 13 % (0-2); LYMPHOCYTE 2 % (20-40); NEUTROPHIL 85 % (50-75); TOTAL CELLS COUNTED 100
[2018-01-04 10:11] LABS: PLATELET ESTIMATE NORMAL (NORMAL); POIKILOCYTOSIS SLIGHT
[2018-01-04 10:13] LABS: OVALOCYTES SLIGHT
[2018-01-04] MEDS: Azithromycin 500mg/250ML NS 500 MG/250 ML BAG IVPB SCH (11:00)
[2018-01-04] MEDS: Hydrocortisone 2.5% Rectal Cream(30 gm) PR SCH ×2 (12:55→18:49)
[2018-01-04] MEDS: (Novolog) Insulin Aspart, Recombinant 100 u/ml 10 ml vial SC SCH ×3 (13:20→21:47)
[2018-01-04 21:42] LABS: LEGIONELLA AG URINE NEGATIVE (NEGATIVE)
[2018-01-04] MEDS: Docusate-Senna 50 mg-8.6 mg Tab PO SCH (21:46)
[2018-01-04] MEDS: (Novolin N) Insulin Human Isophane (NPH) 100 u/ml 10 ml vial SC SCH (21:46)
[2018-01-04] MEDS: Hydrocodone/Acetaminophen 5 mg /300 mg Tab PO PRN (21:55)
--- NOTE | 2018-01-04 23:25 | CARD ---
APPROVED REPORT EKG Measurement Heart [id number] [place] [id number] <Conclusion> Sinus tachycardia Otherwise normal ECG
[2018-01-05] MEDS: Albuterol-Ipratrop 3 mg / 0.5 (3 ml) UD INH SCH ×7 (00:46→23:35)
[2018-01-05] MEDS: MethylPREDNISolone 40 mg Vial IVP SCH ×4 (04:00→21:48)
[2018-01-05] MEDS: Levothyroxine 100 MCG TAB PO SCH (06:19)
[2018-01-05] MEDS: (Novolin 70/30) NPH/Regular 70/30 Units/ml 10 ml vial SC SCH ×2 (08:30→17:30)
[2018-01-05] MEDS: (Novolog) Insulin Aspart, Recombinant 100 u/ml 10 ml vial SC SCH ×4 (09:31→21:46)
[2018-01-05] MEDS: Pantoprazole 20 mg EC Tab PO SCH (09:31)
[2018-01-05] MEDS: Magnesium Oxide 400 mg Tab UD PO SCH (09:31)
[2018-01-05] MEDS: diltiaZEM 120 mg/24 Hours CD Cap PO SCH (09:31)
[2018-01-05] MEDS: Azithromycin 500mg/250ML NS 500 MG/250 ML BAG IVPB SCH (09:54)
[2018-01-05] MEDS: cefTRIAXone IV 1 gm in Dextros 50 ML IVPB SCH (09:55)
[2018-01-05] MEDS: Hydrocortisone 2.5% Rectal Cream(30 gm) PR SCH ×2 (10:15→18:08)
[2018-01-05] MEDS ORDERED: Pneumococcal 23-Valent Vaccine IM ONE (12:00)
[2018-01-05 16:17] LABS: N MENINGITIS ACY/W135 NEGATIVE (NEGATIVE); N MENINGITIS B/ECOLI K1 NEGATIVE (NEGATIVE); STREP PNEUMONIAE NEGATIVE (NEGATIVE); STREPTOCOCCUS B NEGATIVE (NEGATIVE)
[2018-01-05] MEDS: (Novolin N) Insulin Human Isophane (NPH) 100 u/ml 10 ml vial SC SCH (21:48)
[2018-01-05] MEDS: Docusate-Senna 50 mg-8.6 mg Tab PO SCH (21:48)
[2018-01-06] MEDS: Albuterol-Ipratrop 3 mg / 0.5 (3 ml) UD INH SCH ×6 (03:38→23:40)
[2018-01-06] MEDS: MethylPREDNISolone 40 mg Vial IVP SCH ×4 (04:07→22:06)
[2018-01-06] MEDS: Levothyroxine 100 MCG TAB PO SCH (05:31)
[2018-01-06 07:54] LABS: BASO # 0.1 K/uL (0.0-0.2); BASO % 0.8 % (0.0-2.0); EOS # 0.1 K/uL (0.0-0.7); EOS % 0.6 % (0.0-4.0); HEMOGLOBIN 9.4 g/dL (11.0-16.0); LYMPH # 0.4 K/uL (1.0-4.3); LYMPH % 4.8 % (20.0-40.0); MEAN CELL VOLUME 78.8 fL (81.0-99.0); MEAN CORPUSCULAR HGB CONC 31.7 g/dL (33.0-37.0); MEAN PLATELET VOLUME 8.7 fL (7.2-11.7); MONO # 0.3 K/uL (0.0-0.8); MONO % 3.9 % (0.0-10.0); NEUT # 7.9 K/uL (1.8-7.0); NEUT % 89.9 % (50.0-75.0); NRBC % 0.1 % (0.0-2.0); PLATELET COUNT 220 K/uL (130-400); RBC 3.76 Mil/uL (3.80-5.20); WHITE BLOOD COUNT 8.8 K/uL (4.8-10.8)
[2018-01-06 08:13] LABS: ALBUMIN 2.9 g/dL (3.5-5.0); ALT/SGPT 136 U/L (9-52); AST/SGOT 44 U/L (14-36); BLOOD UREA NITROGEN 50 mg/dL (7-17); CALCIUM 8.8 mg/dl (8.6-10.4); GFR AFRICAN-AMERICAN > 60; GFR NON-AFRICAN AMERICAN 56
[2018-01-06 08:14] LABS: HEPATITIS B SURFACE AG Negative (NEGATIVE)
[2018-01-06 08:20] LABS: HEPATITIS A IGM NEGATIVE (NEGATIVE); HEPATITIS B CORE AB NEGATIVE (NEGATIVE)
[2018-01-06] MEDS: (Novolog) Insulin Aspart, Recombinant 100 u/ml 10 ml vial SC SCH ×4 (08:23→21:52)
[2018-01-06] MEDS: (Novolin 70/30) NPH/Regular 70/30 Units/ml 10 ml vial SC SCH ×2 (08:29→17:59)
[2018-01-06 08:32] LABS: HEPATITIS C ANTIBODY NEGATIVE (NEGATIVE)
--- NOTE | 2018-01-06 09:40 | CP.PCM.PN ---
Subjective - Date & Time of Evaluation Date of Evaluation: 01/06/18 Time of Evaluation: 09:39 - Subjective Subjective: PROGRESS NOTE FOR DR. BELLA'S SERVICE Pt seen and examined at bedside. She is connected to BIPAP and appears drowsy. She is alerted by voice and responds with motioning to questions. She acknowledges that she is feeling better today. Objective - Vital Signs/Intake and Output Vital Signs (last 24 hours): Temp Pulse Resp BP Pulse Ox 97.0 F L 80 20 131/81 100 01/06/18 07:10 01/06/18 07:31 01/06/18 07:10 01/06/18 07:10 01/06/18 07:10 Intake and Output: 01/06/18 01/06/18 06:59 18:59 Intake Total 400 Balance 400 - Medications Medications: Current Medications Acetaminophen (Tylenol 325mg Tab) 650 mg PO Q6 PRN PRN Reason: pain/fever\ Last Admin: 01/05/18 14:30 Dose: 650 mg Hydrocodone Bitart/Acetaminophen (Vicodin 5 Mg-300 Mg) 1 tab PO Q6H PRN PRN Reason: Pain, moderate (4-7) Stop: 01/10/18 22:13 Last Admin: 01/04/18 21:55 Dose: 1 tab Albuterol/Ipratropium (Duoneb 3 Mg/0.5 Mg (3 Ml) Ud) 3 ml INH RQ4 [facility] Last Admin: 01/06/18 07:30 Dose: 3 ml Bupropion HCl (Wellbutrin) 75 mg PO DAILY [facility] Last Admin: 01/05/18 09:49 Dose: 75 mg Colchicine (Colocrys) 0.6 mg PO DAILY [facility] Last Admin: 01/05/18 09:49 Dose: 0.6 mg Cyclobenzaprine HCl (Flexeril) 5 mg PO TID [facility] Last Admin: 01/05/18 17:52 Dose: 5 mg Dextrose (Dextrose 50% Inj) 0 ml IV STAT PRN; Protocol PRN Reason: Hypoglycemia Protocol Dextrose (Glutose 15) 0 gm PO ONCE PRN; Protocol PRN Reason: Hypoglycemia Protocol Diazepam (Valium) 5 mg PO BID PRN PRN Reason: Anxiety Last Admin: 01/05/18 21:48 Dose: 5 mg Diltiazem HCl (Cardizem Cd) 120 mg PO DAILY [facility] Last Admin: 01/05/18 09:31 Dose: 120 mg Famotidine (Pepcid) 20 mg PO DAILY [facility] Last Admin: 01/05/18 09:30 Dose: 20 mg Fludrocortisone Acetate (Florinef) 0.1 mg PO DAILY [facility] Last Admin: 01/05/18 09:49 Dose: 0.1 mg Furosemide (Lasix) 20 mg PO DAILY [facility] Last Admin: 01/05/18 09:31 Dose: 20 mg Gabapentin (Neurontin) 300 mg PO TID [facility] Last Admin: 01/05/18 17:52 Dose: 300 mg Glipizide (Glucotrol) 10 mg PO BIDAC [facility] Last Admin: 01/06/18 08:41 Dose: 10 mg Glucagon (Glucagen Diagnostic Kit) 0 mg IM STAT PRN; Protocol PRN Reason: Hypoglycemia Protocol Hydrocortisone (Cortef) 20 mg PO TID [facility] Last Admin: 01/05/18 17:53 Dose: 20 mg Hydrocortisone (Anusol-Hc) 1 gm MT BID [facility] Last Admin: 01/05/18 18:08 Dose: 1 gm Azithromycin (Zithromax 500mg In Ns Addvantage) 500 mg in 250 mls @ 167 mls/hr IVPB Q24H [facility] PRN Reason: Protocol Last Admin: 01/05/18 09:54 Dose: 167 mls/hr Ceftriaxone Sodium (Rocephin Iv 1 Gm Duplex) 50 mls @ 100 mls/hr IVPB DAILY [facility] PRN Reason: Protocol Last Admin: 01/05/18 09:55 Dose: 100 mls/hr Dextrose (Dextrose 5% In Water 1000 Ml) 1,000 mls @ 0 mls/hr IV .Q0M PRN; Protocol; Per Protocol PRN Reason: Hypoglycemia Protocol Insulin Aspart (Novolog) 0 unit SC ACHS [facility] PRN Reason: Protocol Last Admin: 01/06/18 08:23 Dose: 3 units Insulin Human Isoph/Insulin Regular (Novolin 70/30 (70/30 Units/Ml) 10 Ml) 20 units SC ACD [facility] Last Admin: 01/05/18 17:30 Dose: 20 units Insulin Human Isoph/Insulin Regular (Novolin 70/30 (70/30 Units/Ml) 10 Ml) 30 units SC ACB [facility] Last Admin: 01/06/18 08:29 Dose: 30 units Insulin Human NPH (Novolin N) 12 unit SC [facility] Last Admin: 01/05/18 21:48 Dose: 12 units Levothyroxine Sodium (Synthroid) 100 mcg PO DAILY@0630 [facility] Last Admin: 01/06/18 05:31 Dose: 100 mcg Lisinopril (Zestril) 10 mg PO DAILY [facility] Last Admin: 01/05/18 09:29 Dose: 10 mg Magnesium Oxide (Mag-Ox) 400 mg PO DAILY [facility] Last Admin: 01/05/18 09:31 Dose: 400 mg Methylprednisolone (Solu-Medrol) 40 mg IVP Q6H [facility] Last Admin: 01/06/18 04:07 Dose: 40 mg Metoprolol Tartrate (Lopressor) 25 mg PO BID [facility] Last Admin: 01/05/18 17:53 Dose: 25 mg Mirtazapine (Remeron) 15 mg PO [facility] Last Admin: 01/05/18 21:48 Dose: 15 mg Pantoprazole Sodium (Protonix Ec Tab) 20 mg PO DAILY [facility] Last Admin: 01/05/18 09:31 Dose: 20 mg Promethazine HCl (Phenergan Syrup) 6.25 mg PO QID PRN PRN Reason: Cough Rivaroxaban (Xarelto) 20 mg PO DAILY [facility] Last Admin: 01/05/18 09:34 Dose: 20 mg Senna/Docusate Sodium (Senokot S 50 Mg-8.6 Mg) 1 tab PO [facility] Last Admin: 01/05/18 21:48 Dose: 1 tab Sitagliptin Phosphate (Januvia) 100 mg PO DAILY [facility] Last Admin: 01/05/18 09:30 Dose: 100 mg - Labs Labs: 01/06/18 07:15 01/06/18 07:15 PT 19.0 SECONDS (9.7-12.2) H 01/04/18 09:26 INR 1.7 01/04/18 09:26 - Head Exam Head Exam: ATRAUMATIC, NORMOCEPHALIC - Eye Exam Eye Exam: EOMI - ENT Exam ENT Exam: Mucous Membranes Moist - Respiratory Exam Additional comments: On BIPAP - Cardiovascular Exam Cardiovascular Exam: REGULAR RHYTHM, +S1, +S2 - Neurological Exam Neurological Exam: Alert, Awake, Oriented x3 - Psychiatric Exam Psychiatric exam: Normal Affect, Normal Mood - Skin Skin Exam: Dry, Warm Assessment and Plan - Assessment and Plan (Free Text) Plan: Shortness of breath 2/2 HCAP vs COPD exacerbation -Stable, afebrile for >24hrs (tmax 100.6) -Supplemental O2 as needed, Bipap prn -CXR showed mild increase in potential left basilar airspace disease reinterated with linear atelectasis identified lateral to the right hilum -Antibiotics: Azithromax 500mg Q24 hours, Rocephin 1 gm daily -strep pnuemonia, urine legionella, mycoplasma- Negative -procalcitonin 4.58 -F/U sputum cultures, blood cultures- NGTD -Solumedrol 40mg IVP Q6H -Phenergan 6.25mg PO QID prn cough Diastolic Congestive Heart Failure -Last echo 2016 showed Grade III reversible restrictive diastolic dysfunction, EF 55% -Continue Lasix 20mg PO daily Abnormal UA -UA positive for nitrates and leukocyte esterase -F/U urine cultures -Antibiotics: Rocephin 1 gm daily Diabetes Mellitus -Insulin sliding scale -Monitor accuchecks -Novolin 30 units ABC, Novolin 20 units ACD, Novolin 12 units HS -Januvia 100mg PO daily, Glipizide 10mg PO BID -Hypoglycemia protocol -Solu-medrol decreased from 40mg q6hrs to 40mg qhrs for better sugar control -follow up A1C Hypertension -Continue Lisinopril 10mg PO daily -Continue Lopressor 25mg PO BID -Cardizem 120mg PO daily Elevated LFTs -hepatitis panel negative -Continue to monitor -01/06 AST 44 ALT 136 Hypokalemia -Monitor and replete as needed -01/06 3.4 Hypothyroidism -Continue Synthroid 100mcg PO daily History of DVT/PE -Continue Xarelto 20mg PO daily GI/DVT ppx: -Protonix 40mg PO daily -Xarelto 20mg PO daily -PT/OT Case discussed with Dr Bella All medical management as per Dr. Nenita Laboy D.O.
[2018-01-06] MEDS: diltiaZEM 120 mg/24 Hours CD Cap PO SCH (09:59)
[2018-01-06] MEDS: Magnesium Oxide 400 mg Tab UD PO SCH (09:59)
[2018-01-06] MEDS: Pantoprazole 20 mg EC Tab PO SCH (10:00)
[2018-01-06] MEDS: cefTRIAXone IV 1 gm in Dextros 50 ML IVPB SCH (10:02)
[2018-01-06] MEDS: Hydrocortisone 2.5% Rectal Cream(30 gm) PR SCH ×2 (10:07→18:02)
[2018-01-06 10:40] LABS: HYPOCHROMIC SLIGHT; LYMPHOCYTE 3 % (20-40); MONOCYTE 3 % (0-10); NEUTROPHIL 94 % (50-75); PLATELET ESTIMATE NORMAL (NORMAL); TOTAL CELLS COUNTED 100
[2018-01-06 10:41] LABS: OVALOCYTES SLIGHT
[2018-01-06] MEDS: Azithromycin 500mg/250ML NS 500 MG/250 ML BAG IVPB SCH (11:45)
[2018-01-06] MEDS: Docusate-Senna 50 mg-8.6 mg Tab PO SCH (22:05)
[2018-01-06] MEDS: (Novolin N) Insulin Human Isophane (NPH) 100 u/ml 10 ml vial SC SCH (22:06)
[2018-01-07] MEDS: Albuterol-Ipratrop 3 mg / 0.5 (3 ml) UD INH SCH ×5 (03:09→19:21)
[2018-01-07] MEDS: Levothyroxine 100 MCG TAB PO SCH (05:33)
[2018-01-07] MEDS: MethylPREDNISolone 40 mg Vial IVP SCH ×3 (05:33→21:30)
[2018-01-07 06:55] LABS: BASO % 0.3 % (0.0-2.0); HEMOGLOBIN 9.1 g/dL (11.0-16.0); LYMPH # 0.4 K/uL (1.0-4.3); LYMPH % 7.6 % (20.0-40.0); MEAN CELL VOLUME 78.3 fL (81.0-99.0); MEAN CORPUSCULAR HEMOGLOBIN 24.8 pg (27.0-31.0); MEAN CORPUSCULAR HGB CONC 31.7 g/dL (33.0-37.0); MEAN PLATELET VOLUME 8.6 fL (7.2-11.7); MONO # 0.3 K/uL (0.0-0.8); NEUT # 4.9 K/uL (1.8-7.0); NEUT % 87.1 % (50.0-75.0); NRBC % 0.1 % (0.0-2.0); PLATELET COUNT 196 K/uL (130-400); RBC 3.65 Mil/uL (3.80-5.20); RED CELL DISTRIBUTION WIDTH 14.4 % (11.5-14.5); WHITE BLOOD COUNT 5.6 K/uL (4.8-10.8)
--- NOTE | 2018-01-07 07:11 | CP.PCM.PN ---
Subjective - Date & Time of Evaluation Date of Evaluation: 01/07/18 Time of Evaluation: 07:10 - Subjective Subjective: Internal Medicine Progress Note - Dr Gutierres Service Patient seen and examined at bedside. Per nursing no acute events overnight. Patient resting comfortably on bipap. States that shortness of breath is better. Offering no other complaint at this time. Objective - Vital Signs/Intake and Output Vital Signs (last 24 hours): Temp Pulse Resp BP Pulse Ox 97.4 F L 69 20 161/90 H 96 01/06/18 23:40 01/07/18 05:34 01/06/18 23:40 01/06/18 23:40 01/06/18 23:40 Intake and Output: 01/07/18 01/07/18 06:59 18:59 Intake Total 350 Balance 350 - Medications Medications: Current Medications Acetaminophen (Tylenol 325mg Tab) 650 mg PO Q6 PRN PRN Reason: pain/fever\ Last Admin: 01/05/18 14:30 Dose: 650 mg Hydrocodone Bitart/Acetaminophen (Vicodin 5 Mg-300 Mg) 1 tab PO Q6H PRN PRN Reason: Pain, moderate (4-7) Stop: 01/10/18 22:13 Last Admin: 01/04/18 21:55 Dose: 1 tab Albuterol/Ipratropium (Duoneb 3 Mg/0.5 Mg (3 Ml) Ud) 3 ml INH RQ4 [facility] Last Admin: 01/07/18 03:09 Dose: 3 ml Bupropion HCl (Wellbutrin) 75 mg PO DAILY [facility] Last Admin: 01/06/18 10:04 Dose: 75 mg Colchicine (Colocrys) 0.6 mg PO DAILY [facility] Last Admin: 01/06/18 10:03 Dose: 0.6 mg Cyclobenzaprine HCl (Flexeril) 5 mg PO TID [facility] Last Admin: 01/06/18 17:57 Dose: 5 mg Dextrose (Dextrose 50% Inj) 0 ml IV STAT PRN; Protocol PRN Reason: Hypoglycemia Protocol Dextrose (Glutose 15) 0 gm PO ONCE PRN; Protocol PRN Reason: Hypoglycemia Protocol Diazepam (Valium) 5 mg PO BID PRN PRN Reason: Anxiety Last Admin: 01/06/18 22:05 Dose: 5 mg Diltiazem HCl (Cardizem Cd) 120 mg PO DAILY [facility] Last Admin: 01/06/18 09:59 Dose: 120 mg Famotidine (Pepcid) 20 mg PO DAILY [facility] Last Admin: 01/06/18 09:59 Dose: 20 mg Fludrocortisone Acetate (Florinef) 0.1 mg PO DAILY [facility] Last Admin: 01/06/18 10:03 Dose: 0.1 mg Furosemide (Lasix) 20 mg PO DAILY [facility] Last Admin: 01/06/18 10:00 Dose: 20 mg Gabapentin (Neurontin) 300 mg PO TID [facility] Last Admin: 01/06/18 17:57 Dose: 300 mg Glipizide (Glucotrol) 10 mg PO BIDAC [facility] Last Admin: 01/06/18 17:58 Dose: 10 mg Glucagon (Glucagen Diagnostic Kit) 0 mg IM STAT PRN; Protocol PRN Reason: Hypoglycemia Protocol Hydrocortisone (Cortef) 20 mg PO TID [facility] Last Admin: 01/06/18 17:58 Dose: 20 mg Hydrocortisone (Anusol-Hc) 1 gm TN BID [facility] Last Admin: 01/06/18 18:02 Dose: 1 gm Azithromycin (Zithromax 500mg In Ns Addvantage) 500 mg in 250 mls @ 167 mls/hr IVPB Q24H [facility] PRN Reason: Protocol Last Admin: 01/06/18 11:45 Dose: 167 mls/hr Ceftriaxone Sodium (Rocephin Iv 1 Gm Duplex) 50 mls @ 100 mls/hr IVPB DAILY [facility] PRN Reason: Protocol Last Admin: 01/06/18 10:02 Dose: 100 mls/hr Dextrose (Dextrose 5% In Water 1000 Ml) 1,000 mls @ 0 mls/hr IV .Q0M PRN; Protocol; Per Protocol PRN Reason: Hypoglycemia Protocol Insulin Aspart (Novolog) 0 unit SC ACHS [facility] PRN Reason: Protocol Last Admin: 01/06/18 21:52 Dose: Not Given Insulin Human Isoph/Insulin Regular (Novolin 70/30 (70/30 Units/Ml) 10 Ml) 20 units SC ACD [facility] Last Admin: 01/06/18 17:59 Dose: 20 units Insulin Human Isoph/Insulin Regular (Novolin 70/30 (70/30 Units/Ml) 10 Ml) 30 units SC ACB [facility] Last Admin: 01/06/18 08:29 Dose: 30 units Insulin Human NPH (Novolin N) 12 unit SC [facility] Last Admin: 01/06/18 22:06 Dose: 12 units Levothyroxine Sodium (Synthroid) 100 mcg PO DAILY@0630 [facility] Last Admin: 01/07/18 05:33 Dose: 100 mcg Lisinopril (Zestril) 10 mg PO DAILY [facility] Last Admin: 01/06/18 09:59 Dose: 10 mg Magnesium Oxide (Mag-Ox) 400 mg PO DAILY [facility] Last Admin: 01/06/18 09:59 Dose: 400 mg Methylprednisolone (Solu-Medrol) 40 mg IVP Q8H [facility] Last Admin: 01/07/18 05:33 Dose: 40 mg Metoprolol Tartrate (Lopressor) 25 mg PO BID [facility] Last Admin: 01/06/18 17:58 Dose: 25 mg Mirtazapine (Remeron) 15 mg PO [facility] Last Admin: 01/06/18 22:05 Dose: 15 mg Pantoprazole Sodium (Protonix Ec Tab) 20 mg PO DAILY [facility] Last Admin: 01/06/18 10:00 Dose: 20 mg Promethazine HCl (Phenergan Syrup) 6.25 mg PO QID PRN PRN Reason: Cough Rivaroxaban (Xarelto) 20 mg PO DAILY [facility] Last Admin: 01/06/18 10:03 Dose: 20 mg Senna/Docusate Sodium (Senokot S 50 Mg-8.6 Mg) 1 tab PO [facility] Last Admin: 01/06/18 22:05 Dose: 1 tab Sitagliptin Phosphate (Januvia) 100 mg PO DAILY [facility] Last Admin: 01/06/18 09:58 Dose: 100 mg - Labs Labs: 01/07/18 06:50 01/06/18 07:15 PT 19.0 SECONDS (9.7-12.2) H 01/04/18 09:26 INR 1.7 01/04/18 09:26 - Additional Findings Additional findings: - Head Exam Head Exam: ATRAUMATIC, NORMOCEPHALIC - Eye Exam Eye Exam: EOMI - ENT Exam ENT Exam: Mucous Membranes Moist - Respiratory Exam Additional comments: On BIPAP - Cardiovascular Exam Cardiovascular Exam: REGULAR RHYTHM, +S1, +S2 - Neurological Exam Neurological Exam: Alert, Awake, Oriented x3 - Psychiatric Exam Psychiatric exam: Normal Affect, Normal Mood - Skin Skin Exam: Dry, Warm Assessment and Plan - Assessment and Plan (Free Text) Assessment: Shortness of breath 2/2 HCAP vs COPD exacerbation -Stable, afebrile -Supplemental O2 as needed, Bipap prn -CXR showed mild increase in potential left basilar airspace disease reinterated with linear atelectasis identified lateral to the right hilum -Antibiotics: Azithromax 500mg Q24 hours, Rocephin 1 gm daily -strep pnuemonia, urine legionella, mycoplasma- Negative -procalcitonin 4.58 -F/U sputum cultures, blood cultures- NGTD -Solumedrol 40mg IVP Q8H -Phenergan 6.25mg PO QID prn cough Diastolic Congestive Heart Failure -Last echo 2016 showed Grade III reversible restrictive diastolic dysfunction, EF 55% -Continue Lasix 20mg PO daily Abnormal UA -UA positive for nitrates and leukocyte esterase -F/U urine cultures -Antibiotics: Rocephin 1 gm daily Diabetes Mellitus -Insulin sliding scale -Monitor accuchecks -Novolin 30 units ABC, Novolin 20 units ACD, Novolin 12 units HS -Januvia 100mg PO daily, Glipizide 10mg PO BID -Hypoglycemia protocol -HgA1c 9.3 -Gabapentin 300mg PO TID Hypertension -Continue Lisinopril 10mg PO daily -Continue Lopressor 25mg PO BID -Cardizem 120mg PO daily Elevated LFTs -hepatitis panel negative -Continue to monitor -AST/ALT 43/137 Hypokalemia -Monitor and replete as needed -Potassium 3.2 Hypothyroidism -Continue Synthroid 100mcg PO daily History of DVT/PE -Continue Xarelto 20mg PO daily GI/DVT ppx: -Protonix 40mg PO daily -Xarelto 20mg PO daily -PT/OT Case discussed with Dr Gutierres All medical management as per Dr. Nenita Cortez DO PGY-2
[2018-01-07 07:18] LABS: ALB/GLOB RATIO 1.1 (1.0-2.1); ALBUMIN 2.8 g/dL (3.5-5.0); ALT/SGPT 137 U/L (9-52); AST/SGOT 43 U/L (14-36); BLOOD UREA NITROGEN 50 mg/dL (7-17); CALCIUM 8.4 mg/dl (8.6-10.4); GFR AFRICAN-AMERICAN > 60; GFR NON-AFRICAN AMERICAN > 60
[2018-01-07] MEDS ORDERED: Potassium Chloride 20 mEq ER Tab PO ONE ×2 (07:30→16:00)
[2018-01-07] MEDS: (Novolog) Insulin Aspart, Recombinant 100 u/ml 10 ml vial SC SCH ×4 (08:06→21:39)
[2018-01-07] MEDS: (Novolin 70/30) NPH/Regular 70/30 Units/ml 10 ml vial SC SCH ×2 (08:06→17:30)
[2018-01-07 08:33] LABS: LYMPHOCYTE 12 % (20-40); MONOCYTE 3 % (0-10); NEUTROPHIL 85 % (50-75); PLATELET ESTIMATE NORMAL (NORMAL); TOTAL CELLS COUNTED 100
[2018-01-07 08:34] LABS: ANISOCYTOSIS SLIGHT; HYPOCHROMIC SLIGHT; MICROCYTOSIS SLIGHT; OVALOCYTES SLIGHT; POLYCHROMIC SLIGHT; SCHISTOCYTES SLIGHT
[2018-01-07] MEDS: cefTRIAXone IV 1 gm in Dextros 50 ML IVPB SCH (11:15)
[2018-01-07] MEDS: diltiaZEM 120 mg/24 Hours CD Cap PO SCH (11:16)
[2018-01-07] MEDS: Magnesium Oxide 400 mg Tab UD PO SCH (11:17)
[2018-01-07] MEDS: Pantoprazole 20 mg EC Tab PO SCH (11:17)
[2018-01-07] MEDS: Hydrocortisone 2.5% Rectal Cream(30 gm) PR SCH ×2 (11:19→17:40)
[2018-01-07] MEDS: Azithromycin 500mg/250ML NS 500 MG/250 ML BAG IVPB SCH (11:20)
[2018-01-07] MEDS ORDERED: Alum-Mag Hydrox-Simethicone Susp (30 mL) PO PRN (20:00)
[2018-01-07] MEDS: Docusate-Senna 50 mg-8.6 mg Tab PO SCH (21:30)
[2018-01-07] MEDS: (Novolin N) Insulin Human Isophane (NPH) 100 u/ml 10 ml vial SC SCH (21:30)
[2018-01-07 23:05] LABS: URINE BILIRUBIN NEGATIVE (NEGATIVE); URINE BLOOD NEGATIVE (NEGATIVE); URINE CLARITY Clear (Clear); URINE COLOR Straw (YELLOW); URINE GLUCOSE (UA) 3+ mg/dL (Normal); URINE LEUKOCYTE ESTERASE NEG Leu/uL (Negative); URINE PROTEIN NEGATIVE (NEGATIVE); URINE UROBILINOGEN NORMAL mg/dL (0.2-1.0)
[2018-01-08] MEDS: Albuterol-Ipratrop 3 mg / 0.5 (3 ml) UD INH SCH ×7 (00:59→19:48)
[2018-01-08] MEDS: MethylPREDNISolone 40 mg Vial IVP SCH ×3 (05:05→20:35)
[2018-01-08] MEDS: Levothyroxine 100 MCG TAB PO SCH (06:10)
[2018-01-08 08:24] LABS: BASO % 0.1 % (0.0-2.0); HEMOGLOBIN 10.2 g/dL (11.0-16.0); LYMPH # 0.3 K/uL (1.0-4.3); LYMPH % 3.6 % (20.0-40.0); MEAN CELL VOLUME 78.2 fL (81.0-99.0); MEAN CORPUSCULAR HEMOGLOBIN 25.1 pg (27.0-31.0); MONO # 0.4 K/uL (0.0-0.8); MONO % 4.4 % (0.0-10.0); NEUT # 7.3 K/uL (1.8-7.0); NEUT % 91.9 % (50.0-75.0); NRBC % 0.3 % (0.0-2.0); PLATELET COUNT 197 K/uL (130-400); RBC 4.06 Mil/uL (3.80-5.20); RED CELL DISTRIBUTION WIDTH 14.1 % (11.5-14.5)
[2018-01-08] MEDS: (Novolin 70/30) NPH/Regular 70/30 Units/ml 10 ml vial SC SCH ×2 (08:30→17:30)
[2018-01-08] MEDS: (Novolog) Insulin Aspart, Recombinant 100 u/ml 10 ml vial SC SCH ×4 (08:31→22:09)
[2018-01-08 08:37] LABS: ALB/GLOB RATIO 1.1 (1.0-2.1); ALT/SGPT 151 U/L (9-52); AST/SGOT 64 U/L (14-36); BLOOD UREA NITROGEN 43 mg/dL (7-17); CALCIUM 8.4 mg/dl (8.6-10.4); GFR AFRICAN-AMERICAN > 60; GFR NON-AFRICAN AMERICAN > 60
[2018-01-08 11:26] LABS: TOTAL CELLS COUNTED 100
[2018-01-08 11:27] LABS: ANISOCYTOSIS SLIGHT; LYMPHOCYTE 6 % (20-40); MONOCYTE 4 % (0-10); NEUTROPHIL 90 % (50-75); PLATELET ESTIMATE NORMAL (NORMAL); POIKILOCYTOSIS SLIGHT
[2018-01-08 11:28] LABS: HYPOCHROMIC SLIGHT; MICROCYTOSIS SLIGHT; OVALOCYTES SLIGHT; SCHISTOCYTES SLIGHT
[2018-01-08] MEDS: diltiaZEM 120 mg/24 Hours CD Cap PO SCH (11:37)
[2018-01-08] MEDS: Magnesium Oxide 400 mg Tab UD PO SCH (11:39)
[2018-01-08] MEDS: Pantoprazole 20 mg EC Tab PO SCH (11:40)
[2018-01-08] MEDS: Azithromycin 500mg/250ML NS 500 MG/250 ML BAG IVPB SCH (11:42)
[2018-01-08] MEDS: cefTRIAXone IV 1 gm in Dextros 50 ML IVPB SCH (11:43)
[2018-01-08] MEDS: Hydrocortisone 2.5% Rectal Cream(30 gm) PR SCH ×2 (11:44→18:33)
[2018-01-08] MEDS: (Novolin N) Insulin Human Isophane (NPH) 100 u/ml 10 ml vial SC SCH (22:09)
[2018-01-08] MEDS: Docusate-Senna 50 mg-8.6 mg Tab PO SCH (22:10)
[2018-01-09] MEDS: Albuterol-Ipratrop 3 mg / 0.5 (3 ml) UD INH SCH ×4 (00:55→23:44)
[2018-01-09] MEDS: MethylPREDNISolone 40 mg Vial IVP SCH ×2 (05:52→21:07)
[2018-01-09] MEDS: Levothyroxine 100 MCG TAB PO SCH (05:52)
[2018-01-09 08:24] LABS: BASO % 0.4 % (0.0-2.0); HEMOGLOBIN 9.9 g/dL (11.0-16.0); LYMPH # 0.4 K/uL (1.0-4.3); LYMPH % 4.4 % (20.0-40.0); MEAN CORPUSCULAR HEMOGLOBIN 24.8 pg (27.0-31.0); MEAN CORPUSCULAR HGB CONC 31.8 g/dL (33.0-37.0); MONO # 0.6 K/uL (0.0-0.8); MONO % 5.8 % (0.0-10.0); NEUT % 89.4 % (50.0-75.0); NRBC % 0.4 % (0.0-2.0); PLATELET COUNT 236 K/uL (130-400); RED CELL DISTRIBUTION WIDTH 14.5 % (11.5-14.5); WHITE BLOOD COUNT 10.1 K/uL (4.8-10.8)
[2018-01-09 08:42] LABS: ALB/GLOB RATIO 1.1 (1.0-2.1); ALBUMIN 2.8 g/dL (3.5-5.0); ALT/SGPT 174 U/L (9-52); AST/SGOT 63 U/L (14-36); BLOOD UREA NITROGEN 44 mg/dL (7-17); CALCIUM 8.4 mg/dl (8.6-10.4); GFR AFRICAN-AMERICAN > 60; GFR NON-AFRICAN AMERICAN 56
[2018-01-09] MEDS ORDERED: Potassium Chloride 20 mEq/15 ml LIQ UD PO SCH (10:00)
[2018-01-09 10:13] LABS: BANDS 4 % (0-2); LYMPHOCYTE 9 % (20-40); METAMYELOCYTE 1 % (0-0); MONOCYTE 4 % (0-10); NEUTROPHIL 82 % (50-75); TOTAL CELLS COUNTED 100
[2018-01-09 10:14] LABS: ANISOCYTOSIS SLIGHT; MICROCYTOSIS SLIGHT; OVALOCYTES SLIGHT; PLATELET ESTIMATE NORMAL (NORMAL); POIKILOCYTOSIS SLIGHT; TEARDROP CELLS SLIGHT
[2018-01-09 10:15] LABS: POLYCHROMIC SLIGHT; SCHISTOCYTES SLIGHT
[2018-01-09] MEDS: cefTRIAXone IV 1 gm in Dextros 50 ML IVPB SCH (10:30)
[2018-01-09] MEDS: (Novolog) Insulin Aspart, Recombinant 100 u/ml 10 ml vial SC SCH ×4 (11:30→21:05)
[2018-01-09] MEDS: Azithromycin 500mg/250ML NS 500 MG/250 ML BAG IVPB SCH (11:43)
[2018-01-09] MEDS: Pantoprazole 20 mg EC Tab PO SCH (11:46)
[2018-01-09] MEDS: diltiaZEM 120 mg/24 Hours CD Cap PO SCH (11:46)
[2018-01-09] MEDS: Magnesium Oxide 400 mg Tab UD PO SCH (11:46)
[2018-01-09] MEDS: (Novolin 70/30) NPH/Regular 70/30 Units/ml 10 ml vial SC SCH ×2 (11:48→17:29)
[2018-01-09] MEDS: Hydrocortisone 2.5% Rectal Cream(30 gm) PR SCH ×2 (11:50→17:29)
[2018-01-09] MEDS: Potassium Chloride 20 mEq ER Tab PO SCH (12:05)
[2018-01-09] MEDS: Docusate-Senna 50 mg-8.6 mg Tab PO SCH (21:06)
[2018-01-09] MEDS: (Novolin N) Insulin Human Isophane (NPH) 100 u/ml 10 ml vial SC SCH (21:06)
[2018-01-10] MEDS: Hydrocodone/Acetaminophen 5 mg /300 mg Tab PO PRN ×2 (00:54→06:39)
[2018-01-10] MEDS: Albuterol-Ipratrop 3 mg / 0.5 (3 ml) UD INH SCH ×5 (04:16→19:54)
[2018-01-10] MEDS: Levothyroxine 100 MCG TAB PO SCH (05:56)
[2018-01-10] MEDS: (Novolog) Insulin Aspart, Recombinant 100 u/ml 10 ml vial SC SCH ×4 (08:18→21:50)
[2018-01-10] MEDS: (Novolin 70/30) NPH/Regular 70/30 Units/ml 10 ml vial SC SCH ×2 (08:19→17:16)
[2018-01-10 08:37] LABS: BASO % 0.2 % (0.0-2.0); HEMOGLOBIN 9.8 g/dL (11.0-16.0); LYMPH # 0.4 K/uL (1.0-4.3); LYMPH % 4.4 % (20.0-40.0); MEAN CELL VOLUME 78.9 fL (81.0-99.0); MEAN CORPUSCULAR HEMOGLOBIN 24.6 pg (27.0-31.0); MEAN CORPUSCULAR HGB CONC 31.2 g/dL (33.0-37.0); MONO # 0.6 K/uL (0.0-0.8); MONO % 6.1 % (0.0-10.0); NEUT # 8.2 K/uL (1.8-7.0); NEUT % 89.3 % (50.0-75.0); NRBC % 0.4 % (0.0-2.0); PLATELET COUNT 255 K/uL (130-400); RED CELL DISTRIBUTION WIDTH 14.6 % (11.5-14.5); WHITE BLOOD COUNT 9.2 K/uL (4.8-10.8)
[2018-01-10 09:03] LABS: ALB/GLOB RATIO 1.2 (1.0-2.1); ALT/SGPT 269 U/L (9-52); AST/SGOT 86 U/L (14-36); BLOOD UREA NITROGEN 54 mg/dL (7-17); CALCIUM 8.6 mg/dl (8.6-10.4); GFR AFRICAN-AMERICAN > 60; GFR NON-AFRICAN AMERICAN > 60
[2018-01-10 09:52] LABS: BANDS 4 % (0-2); HYPOCHROMIC SLIGHT; LYMPHOCYTE 8 % (20-40); MONOCYTE 6 % (0-10); MYELOCYTE 6 % (0-0); NEUTROPHIL 76 % (50-75); PLATELET ESTIMATE NORMAL (NORMAL); TOTAL CELLS COUNTED 100
[2018-01-10 09:54] LABS: POIKILOCYTOSIS SLIGHT; SCHISTOCYTES SLIGHT
[2018-01-10] MEDS: Pantoprazole 20 mg EC Tab PO SCH (10:14)
[2018-01-10] MEDS: diltiaZEM 120 mg/24 Hours CD Cap PO SCH (10:15)
[2018-01-10] MEDS: Potassium Chloride 20 mEq ER Tab PO SCH (10:15)
[2018-01-10] MEDS: MethylPREDNISolone 40 mg Vial IVP SCH ×2 (10:16→21:59)
[2018-01-10] MEDS: Magnesium Oxide 400 mg Tab UD PO SCH (10:16)
[2018-01-10] MEDS: Hydrocortisone 2.5% Rectal Cream(30 gm) PR SCH ×2 (10:17→17:28)
--- NOTE | 2018-01-10 15:06 | CP.PCM.PN ---
Subjective - Date & Time of Evaluation Date of Evaluation: 01/10/18 Time of Evaluation: 09:05 - Subjective Subjective: PGY2 Medicine Note for Dr. Gutierres Patient seen and examined at bedside this morning. No acute events overnight. Patient is currently on nasal cannula but reports needing BiPAP overnight. She has a non-productive cough and feels short of breath. She is experiencing pain from her abdomen up. She is unable to describe the pain but states she does not feel well. She is tolerating her diet. Denies fevers, chills, nausea, vomiting, diarrhea, constipation, vision changes Objective - Vital Signs/Intake and Output Vital Signs (last 24 hours): Temp Pulse Resp BP Pulse Ox 97.5 F L 111 H 18 130/73 95 01/10/18 07:00 01/10/18 14:00 01/10/18 07:00 01/10/18 10:45 01/10/18 07:00 Intake and Output: 01/10/18 01/10/18 06:59 18:59 Intake Total 400 Output Total 500 Balance -100 - Medications Medications: Current Medications Acetaminophen (Tylenol 325mg Tab) 650 mg PO Q6 PRN PRN Reason: pain/fever\ Last Admin: 01/05/18 14:30 Dose: 650 mg Hydrocodone Bitart/Acetaminophen (Vicodin 5 Mg-300 Mg) 1 tab PO Q6H PRN PRN Reason: Pain, moderate (4-7) Stop: 01/10/18 22:13 Last Admin: 01/10/18 06:39 Dose: 1 tab Al Hydrox/Mg Hydrox/Simethicone (Maalox Plus 30 Ml) 30 ml PO Q8 PRN PRN Reason: Indigestion / Heartburn Albuterol/Ipratropium (Duoneb 3 Mg/0.5 Mg (3 Ml) Ud) 3 ml INH RQ4 [facility] Last Admin: 01/10/18 12:44 Dose: 3 ml Bupropion HCl (Wellbutrin) 75 mg PO DAILY [facility] Last Admin: 01/10/18 10:13 Dose: 75 mg Colchicine (Colocrys) 0.6 mg PO DAILY [facility] Last Admin: 01/10/18 10:12 Dose: 0.6 mg Cyclobenzaprine HCl (Flexeril) 5 mg PO TID [facility] Last Admin: 01/10/18 14:06 Dose: 5 mg Dextrose (Dextrose 50% Inj) 0 ml IV STAT PRN; Protocol PRN Reason: Hypoglycemia Protocol Dextrose (Glutose 15) 0 gm PO ONCE PRN; Protocol PRN Reason: Hypoglycemia Protocol Diazepam (Valium) 5 mg PO BID PRN PRN Reason: Anxiety Last Admin: 01/09/18 21:50 Dose: 5 mg Diltiazem HCl (Cardizem Cd) 120 mg PO DAILY [facility] Last Admin: 01/10/18 10:15 Dose: 120 mg Famotidine (Pepcid) 20 mg PO DAILY [facility] Last Admin: 01/10/18 10:14 Dose: 20 mg Fludrocortisone Acetate (Florinef) 0.1 mg PO DAILY [facility] Last Admin: 01/10/18 10:13 Dose: 0.1 mg Furosemide (Lasix) 20 mg PO DAILY [facility] Last Admin: 01/10/18 10:15 Dose: 20 mg Gabapentin (Neurontin) 300 mg PO TID [facility] Last Admin: 01/10/18 14:05 Dose: 300 mg Glipizide (Glucotrol) 10 mg PO BIDAC [facility] Last Admin: 01/10/18 11:11 Dose: 10 mg Glucagon (Glucagen Diagnostic Kit) 0 mg IM STAT PRN; Protocol PRN Reason: Hypoglycemia Protocol Hydrocortisone (Cortef) 20 mg PO TID [facility] Last Admin: 01/10/18 14:05 Dose: 20 mg Hydrocortisone (Anusol-Hc) 1 gm AR BID [facility] Last Admin: 01/10/18 10:17 Dose: 1 appl Insulin Aspart (Novolog) 0 unit SC ACHS [facility] PRN Reason: Protocol Last Admin: 01/10/18 11:57 Dose: 8 units Insulin Human Isoph/Insulin Regular (Novolin 70/30 (70/30 Units/Ml) 10 Ml) 20 units SC ACD [facility] Last Admin: 01/09/18 17:29 Dose: Not Given Insulin Human Isoph/Insulin Regular (Novolin 70/30 (70/30 Units/Ml) 10 Ml) 30 units SC ACB [facility] Last Admin: 01/10/18 08:19 Dose: 30 units Insulin Human NPH (Novolin N) 12 unit SC HS [facility] Last Admin: 01/09/18 21:06 Dose: 12 units Levothyroxine Sodium (Synthroid) 100 mcg PO DAILY@0630 [facility] Last Admin: 01/10/18 05:56 Dose: 100 mcg Lisinopril (Zestril) 10 mg PO DAILY [facility] Last Admin: 01/10/18 10:15 Dose: 10 mg Magnesium Oxide (Mag-Ox) 400 mg PO DAILY [facility] Last Admin: 01/10/18 10:16 Dose: 400 mg Methylprednisolone (Solu-Medrol) 40 mg IVP Q12H [facility] Last Admin: 01/10/18 10:16 Dose: 40 mg Metoprolol Tartrate (Lopressor) 25 mg PO BID [facility] Last Admin: 01/10/18 10:45 Dose: Not Given Mirtazapine (Remeron) 15 mg PO HS [facility] Last Admin: 01/09/18 21:06 Dose: 15 mg Pantoprazole Sodium (Protonix Ec Tab) 20 mg PO DAILY [facility] Last Admin: 01/10/18 10:14 Dose: 20 mg Potassium Chloride (K-Dur 20 Meq Er Tab) 20 meq PO DAILY [facility] Last Admin: 01/10/18 10:15 Dose: 20 meq Promethazine HCl (Phenergan Syrup) 6.25 mg PO QID PRN PRN Reason: Cough Last Admin: 01/07/18 21:37 Dose: 6.25 mg Rivaroxaban (Xarelto) 20 mg PO DAILY [facility] Last Admin: 01/10/18 10:14 Dose: 20 mg Fluticasone/Salmeterol (Advair Diskus 250/50) 1 puff INH RQ12 [facility] Senna/Docusate Sodium (Senokot S 50 Mg-8.6 Mg) 1 tab PO [facility] Last Admin: 01/09/18 21:06 Dose: 1 tab Sitagliptin Phosphate (Januvia) 100 mg PO DAILY [facility] Last Admin: 01/10/18 10:15 Dose: 100 mg - Labs Labs: 01/10/18 08:24 01/10/18 08:24 PT 19.0 SECONDS (9.7-12.2) H 01/04/18 09:26 INR 1.7 01/04/18 09:26 - Constitutional Appears: Older Than Stated Age, Chronically Ill - Head Exam Head Exam: ATRAUMATIC, NORMOCEPHALIC - Eye Exam Eye Exam: Normal appearance - ENT Exam ENT Exam: Mucous Membranes Moist - Respiratory Exam Respiratory Exam: Rhonchi, NORMAL BREATHING PATTERN. absent: Accessory Muscle Use, Chest Wall Tenderness, Rales, Wheezes Additional comments: on NC 2L - Cardiovascular Exam Cardiovascular Exam: REGULAR RHYTHM, +S1, +S2 - GI/Abdominal Exam GI & Abdominal Exam: Soft. absent: Distended, Firm, Guarding, Rigid, Tenderness - Extremities Exam Extremities Exam: Pedal Edema (2+). absent: Calf Tenderness - Neurological Exam Neurological Exam: Alert, Awake, Oriented x3 - Psychiatric Exam Psychiatric exam: Normal Affect, Normal Mood - Skin Skin Exam: Dry, Warm Assessment and Plan - Assessment and Plan (Free Text) Plan: Shortness of breath 2/2 HCAP vs COPD exacerbation -Stable, afebrile -Supplemental O2 as needed, Bipap prn -CXR showed mild increase in potential left basilar airspace disease reinterated with linear atelectasis identified lateral to the right hilum -CT Chest w/o 01/10: pending -Antibiotics: Azithromax 500mg Q24 hours, Rocephin 1 gm daily - completed -strep pnuemonia, urine legionella, mycoplasma- Negative -procalcitonin 4.58 -sputum cultures - pending -blood cultures - negative at 5 days -Duonebs q4h -Solumedrol 40mg IVP Q12H -Phenergan 6.25mg PO QID prn cough -Started Advair 250/50 1puff INH q12h Diastolic Congestive Heart Failure -Last echo 2016 showed Grade III reversible restrictive diastolic dysfunction, EF 55% -Continue Lasix 20mg PO daily Abnormal UA -UA positive for nitrates and leukocyte esterase -urine cultures: negative -Antibiotics: Rocephin 1 gm daily - completed Diabetes Mellitus -Insulin sliding scale -Monitor accuchecks -Novolin 30 units ABC, Novolin 20 units ACD, Novolin 12 units HS -Januvia 100mg PO daily, Glipizide 10mg PO BID -Hypoglycemia protocol -HgA1c 9.3 -Gabapentin 300mg PO TID Hypertension -Continue Lisinopril 10mg PO daily -Continue Lopressor 25mg PO BID -Cardizem 120mg PO daily Elevated LFTs -hepatitis panel negative -Continue to monitor -AST/ALT 86/269 Hypokalemia -Monitor and replete as needed -Potassium 20meq PO daily -Potassium 3.8 Hypothyroidism -Continue Synthroid 100mcg PO daily History of DVT/PE -Continue Xarelto 20mg PO daily GI/DVT ppx: -Protonix 40mg PO daily -Xarelto 20mg PO daily -PT/OT - reordered PT for d/c planning Case discussed with Dr Gutierres All medical management as per Dr. Nenita Luke Kaye PGY2
--- NOTE | 2018-01-10 16:03 | CARD ---
APPROVED REPORT EKG Measurement Heart [id number] <Conclusion> Normal sinus rhythm Low voltage QRS Borderline ECG
--- NOTE | 2018-01-10 16:39 | CT ---
PROCEDURE: CT Chest without contrast HISTORY: SOB COMPARISON: CT angiography of the pulmonary arteries performed 09/08/2014. TECHNIQUE: Contiguous axial images were obtained through the chest without intravenous contrast enhancement. Sagittal and coronal reconstructions were performed. Radiation dose (DLP): 651.9 mGy-cm. This CT exam was performed using one or more of the following dose reduction techniques: Automated exposure control, adjustment of the mA and/or kV according to patient size, and/or use of iterative reconstruction technique. FINDINGS: LUNGS: Medial bilateral lower lobe consolidations versus atelectasis. Visualized airway clear. MEDIASTINUM: Unremarkable thoracic aorta. No aneurysm. Normal sized heart. Main pulmonary artery unremarkable. No vascular congestion. No lymphadenopathy. PLEURA: No pleural fluid. No pneumothorax. BONES: No fracture. No destructive lesion. UPPER ABDOMEN: Prior cholecystectomy with surgical clips in place. OTHER FINDINGS: None. IMPRESSION: Medial bilateral lower lobe consolidations versus atelectasis.
[2018-01-10] MEDS: Fluticasone-Salmeterol 250-50mcg Diskus INH SCH (19:55)
[2018-01-10] MEDS: Docusate-Senna 50 mg-8.6 mg Tab PO SCH (21:58)
[2018-01-10] MEDS: (Novolin N) Insulin Human Isophane (NPH) 100 u/ml 10 ml vial SC SCH (22:01)
[2018-01-11] MEDS: Albuterol-Ipratrop 3 mg / 0.5 (3 ml) UD INH SCH ×7 (00:55→23:45)
[2018-01-11] MEDS: Levothyroxine 100 MCG TAB PO SCH (06:15)
[2018-01-11 07:31] LABS: ALB/GLOB RATIO 1.2 (1.0-2.1); ALBUMIN 2.9 g/dL (3.5-5.0); ALT/SGPT 321 U/L (9-52); AST/SGOT 73 U/L (14-36); BLOOD UREA NITROGEN 52 mg/dL (7-17); CALCIUM 8.7 mg/dl (8.6-10.4); GFR AFRICAN-AMERICAN > 60; GFR NON-AFRICAN AMERICAN 50
[2018-01-11 07:35] LABS: BASO % 0.3 % (0.0-2.0); EOS % 0.2 % (0.0-4.0); HEMOGLOBIN 9.8 g/dL (11.0-16.0); LYMPH # 0.4 K/uL (1.0-4.3); LYMPH % 3.6 % (20.0-40.0); MEAN CORPUSCULAR HEMOGLOBIN 24.9 pg (27.0-31.0); MEAN CORPUSCULAR HGB CONC 31.5 g/dL (33.0-37.0); MONO # 0.4 K/uL (0.0-0.8); MONO % 3.6 % (0.0-10.0); NEUT # 9.1 K/uL (1.8-7.0); NEUT % 92.3 % (50.0-75.0); NRBC % 0.2 % (0.0-2.0); PLATELET COUNT 240 K/uL (130-400); RBC 3.93 Mil/uL (3.80-5.20); RED CELL DISTRIBUTION WIDTH 14.5 % (11.5-14.5); WHITE BLOOD COUNT 9.9 K/uL (4.8-10.8)
--- NOTE | 2018-01-11 07:37 | CP.PCM.PN ---
Subjective - Date & Time of Evaluation Date of Evaluation: 01/11/18 Time of Evaluation: 07:37 - Subjective Subjective: PGY2 Medicine Note for Dr. Gutierres Patient seen and examined this morning at bedside. No acute events overnight. Patient is resting comfortably in bed. Patient reports improvement in breathing. Her pain is currently minimal this morning. She is tolerating her diet. She has no other complaints at this time. Objective - Vital Signs/Intake and Output Vital Signs (last 24 hours): Temp Pulse Resp BP Pulse Ox 97.5 F L 122 H 20 156/89 H 96 01/10/18 23:35 01/11/18 04:05 01/10/18 23:35 01/10/18 23:35 01/10/18 23:35 Intake and Output: 01/11/18 01/11/18 06:59 18:59 Intake Total 120 Output Total 1600 Balance -1480 - Medications Medications: Current Medications Acetaminophen (Tylenol 325mg Tab) 650 mg PO Q6 PRN PRN Reason: pain/fever\ Last Admin: 01/05/18 14:30 Dose: 650 mg Al Hydrox/Mg Hydrox/Simethicone (Maalox Plus 30 Ml) 30 ml PO Q8 PRN PRN Reason: Indigestion / Heartburn Albuterol/Ipratropium (Duoneb 3 Mg/0.5 Mg (3 Ml) Ud) 3 ml INH RQ4 [facility] Last Admin: 01/11/18 07:25 Dose: 3 ml Bupropion HCl (Wellbutrin) 75 mg PO DAILY [facility] Last Admin: 01/10/18 10:13 Dose: 75 mg Colchicine (Colocrys) 0.6 mg PO DAILY [facility] Last Admin: 01/10/18 10:12 Dose: 0.6 mg Cyclobenzaprine HCl (Flexeril) 5 mg PO TID [facility] Last Admin: 01/10/18 17:13 Dose: 5 mg Dextrose (Dextrose 50% Inj) 0 ml IV STAT PRN; Protocol PRN Reason: Hypoglycemia Protocol Dextrose (Glutose 15) 0 gm PO ONCE PRN; Protocol PRN Reason: Hypoglycemia Protocol Diazepam (Valium) 5 mg PO BID PRN PRN Reason: Anxiety Last Admin: 01/10/18 21:58 Dose: 5 mg Diltiazem HCl (Cardizem Cd) 120 mg PO DAILY [facility] Last Admin: 01/10/18 10:15 Dose: 120 mg Famotidine (Pepcid) 20 mg PO DAILY [facility] Last Admin: 01/10/18 10:14 Dose: 20 mg Fludrocortisone Acetate (Florinef) 0.1 mg PO DAILY [facility] Last Admin: 01/10/18 10:13 Dose: 0.1 mg Furosemide (Lasix) 20 mg PO DAILY [facility] Last Admin: 01/10/18 10:15 Dose: 20 mg Gabapentin (Neurontin) 300 mg PO TID [facility] Last Admin: 01/10/18 17:13 Dose: 300 mg Glipizide (Glucotrol) 10 mg PO BIDAC [facility] Last Admin: 01/10/18 17:13 Dose: 10 mg Glucagon (Glucagen Diagnostic Kit) 0 mg IM STAT PRN; Protocol PRN Reason: Hypoglycemia Protocol Hydrocortisone (Cortef) 20 mg PO TID [facility] Last Admin: 01/10/18 17:13 Dose: 20 mg Hydrocortisone (Anusol-Hc) 1 gm MD BID [facility] Last Admin: 01/10/18 17:28 Dose: 1 appl Insulin Aspart (Novolog) 0 unit SC [facility] PRN Reason: Protocol Last Admin: 01/10/18 21:50 Dose: Not Given Insulin Human Isoph/Insulin Regular (Novolin 70/30 (70/30 Units/Ml) 10 Ml) 20 units SC ACD [facility] Last Admin: 01/10/18 17:16 Dose: 20 units Insulin Human Isoph/Insulin Regular (Novolin 70/30 (70/30 Units/Ml) 10 Ml) 30 units SC ACB [facility] Last Admin: 01/10/18 08:19 Dose: 30 units Insulin Human NPH (Novolin N) 12 unit SC HS [facility] Last Admin: 01/10/18 22:01 Dose: 12 units Levothyroxine Sodium (Synthroid) 100 mcg PO DAILY@0630 [facility] Last Admin: 01/11/18 06:15 Dose: 100 mcg Lisinopril (Zestril) 10 mg PO DAILY [facility] Last Admin: 01/10/18 10:15 Dose: 10 mg Magnesium Oxide (Mag-Ox) 400 mg PO DAILY [facility] Last Admin: 01/10/18 10:16 Dose: 400 mg Methylprednisolone (Solu-Medrol) 40 mg IVP Q12H [facility] Last Admin: 01/10/18 21:59 Dose: 40 mg Metoprolol Tartrate (Lopressor) 25 mg PO BID [facility] Last Admin: 01/10/18 17:14 Dose: 25 mg Mirtazapine (Remeron) 15 mg PO HS [facility] Last Admin: 01/10/18 22:03 Dose: 15 mg Pantoprazole Sodium (Protonix Ec Tab) 20 mg PO DAILY [facility] Last Admin: 01/10/18 10:14 Dose: 20 mg Potassium Chloride (K-Dur 20 Meq Er Tab) 20 meq PO DAILY [facility] Last Admin: 01/10/18 10:15 Dose: 20 meq Promethazine HCl (Phenergan Syrup) 6.25 mg PO QID PRN PRN Reason: Cough Last Admin: 01/07/18 21:37 Dose: 6.25 mg Rivaroxaban (Xarelto) 20 mg PO DAILY [facility] Last Admin: 01/10/18 10:14 Dose: 20 mg Fluticasone/Salmeterol (Advair Diskus 250/50) 1 puff INH RQ12 [facility] Last Admin: 01/10/18 19:55 Dose: 1 puff Senna/Docusate Sodium (Senokot S 50 Mg-8.6 Mg) 1 tab PO [facility] Last Admin: 01/10/18 21:58 Dose: 1 tab Sitagliptin Phosphate (Januvia) 100 mg PO DAILY [facility] Last Admin: 01/10/18 10:15 Dose: 100 mg - Labs Labs: 01/10/18 08:24 01/11/18 06:39 PT 19.0 SECONDS (9.7-12.2) H 01/04/18 09:26 INR 1.7 01/04/18 09:26 - Constitutional Appears: No Acute Distress - Head Exam Head Exam: ATRAUMATIC - Eye Exam Eye Exam: EOMI Pupil Exam: NORMAL ACCOMODATION, PERRL - ENT Exam ENT Exam: Mucous Membranes Moist - Respiratory Exam Respiratory Exam: Clear to Ausculation Bilateral, NORMAL BREATHING PATTERN. absent: Accessory Muscle Use, Rales, Rhonchi, Wheezes, Respiratory Distress Additional comments: on NC 2L - Cardiovascular Exam Cardiovascular Exam: Tachycardia (~110 on the monitor NSR), +S1, +S2 - GI/Abdominal Exam GI & Abdominal Exam: Soft. absent: Distended, Firm, Guarding, Rigid, Tenderness - Exam Additional comments: Purewick cath - Extremities Exam Extremities Exam: Pedal Edema (improving). absent: Calf Tenderness - Neurological Exam Neurological Exam: Alert, Awake, CN II-XII Intact, Oriented x3 - Psychiatric Exam Psychiatric exam: Depressed, Flat Affect - Skin Skin Exam: Dry, Warm Assessment and Plan - Assessment and Plan (Free Text) Plan: Shortness of breath 2/2 HCAP vs COPD exacerbation -Stable, afebrile -Supplemental O2 as needed, Bipap prn -CXR showed mild increase in potential left basilar airspace disease reinterated with linear atelectasis identified lateral to the right hilum -CT Chest w/o 01/10: Medial b/l lower lobe consolidations vs atelectasis. -strep pnuemonia, urine legionella, mycoplasma- Negative -procalcitonin 4.58 -sputum cultures 01/09/18 - normal narinder -blood cultures 01/07/18 - negative at 5 days -Duonebs q4h -Solumedrol 40mg IVP Q12H -Phenergan 6.25mg PO QID prn cough -Advair 250/50 1puff INH q12h Diastolic Congestive Heart Failure -Last echo 2016 showed Grade III reversible restrictive diastolic dysfunction, EF 55% -Continue Lasix 20mg PO daily Abnormal UA -UA positive for nitrates and leukocyte esterase -urine cultures: negative -Antibiotics: Rocephin 1 gm daily - completed Diabetes Mellitus -Insulin sliding scale -Monitor accuchecks -Novolin 30 units ABC, Novolin 20 units ACD, Novolin 12 units HS -Januvia 100mg PO daily, Glipizide 10mg PO BID -Hypoglycemia protocol -HgA1c 9.3 -Gabapentin 300mg PO TID Hypertension -Continue Lisinopril 10mg PO daily -Continue Lopressor 25mg PO BID -->increased to 50mg PO BID -Cardizem 120mg PO daily Elevated LFTs -hepatitis panel negative -Continue to monitor -AST/ALT 73/321 Hypokalemia -Monitor and replete as needed -Potassium 20meq PO daily -Potassium 3.9 Hypothyroidism -Continue Synthroid 100mcg PO daily History of DVT/PE -Continue Xarelto 20mg PO daily GI/DVT ppx: -Protonix 40mg PO daily -Xarelto 20mg PO daily -PT/OT - reordered PT for d/c planning DIPSO: Upon discharge, patient will be sent to [facility] for ALONDRA. Case discussed with Dr Gutierres All medical management as per Dr. Nenita Luke Kaye PGY2
[2018-01-11] MEDS: (Novolog) Insulin Aspart, Recombinant 100 u/ml 10 ml vial SC SCH ×4 (08:03→21:45)
[2018-01-11] MEDS: (Novolin 70/30) NPH/Regular 70/30 Units/ml 10 ml vial SC SCH ×2 (08:04→18:08)
[2018-01-11 08:48] LABS: ANISOCYTOSIS SLIGHT; BANDS 4 % (0-2); BURR CELLS SLIGHT; HYPOCHROMIC SLIGHT; LYMPHOCYTE 5 % (20-40); MONOCYTE 1 % (0-10); MYELOCYTE 3 % (0-0); NEUTROPHIL 87 % (50-75); NUCLEATED RED BLOOD CELL 1 % (0-0); PLATELET ESTIMATE NORMAL (NORMAL); POIKILOCYTOSIS SLIGHT; TEARDROP CELLS SLIGHT; TOTAL CELLS COUNTED 100
[2018-01-11 08:49] LABS: OVALOCYTES SLIGHT
[2018-01-11] MEDS: Magnesium Oxide 400 mg Tab UD PO SCH (09:39)
[2018-01-11] MEDS: diltiaZEM 120 mg/24 Hours CD Cap PO SCH (09:39)
[2018-01-11] MEDS: MethylPREDNISolone 40 mg Vial IVP SCH ×2 (09:42→21:44)
[2018-01-11] MEDS: Potassium Chloride 20 mEq ER Tab PO SCH (09:53)
[2018-01-11] MEDS: Pantoprazole 20 mg EC Tab PO SCH (09:54)
[2018-01-11] MEDS: Hydrocortisone 2.5% Rectal Cream(30 gm) PR SCH ×2 (09:59→17:42)
[2018-01-11] MEDS: Fluticasone-Salmeterol 250-50mcg Diskus INH SCH ×2 (10:11→20:07)
[2018-01-11] MEDS: (Novolin N) Insulin Human Isophane (NPH) 100 u/ml 10 ml vial SC SCH (21:44)
[2018-01-11] MEDS: Docusate-Senna 50 mg-8.6 mg Tab PO SCH (21:44)
[2018-01-12] MEDS: Albuterol-Ipratrop 3 mg / 0.5 (3 ml) UD INH SCH ×6 (03:25→23:36)
[2018-01-12] MEDS: Levothyroxine 100 MCG TAB PO SCH (05:40)
--- NOTE | 2018-01-12 07:04 | CP.PCM.PN ---
Subjective - Date & Time of Evaluation Date of Evaluation: 01/12/18 Time of Evaluation: 07:03 - Subjective Subjective: PGY2 Medicine Note for Dr. Gutierres Patient seen and examined this morning at bedside. No acute events overnight. Patient was sleeping comfortably, flat in her bed upon entering the room. She was easily awoken. Patient states she has not had a bowel movement and feels constipated. Her breathing feels much better and she is not coughing. She is tolerating her diet and her pain is minimal. She reports that her vision is at its baseline and she does not have any pain associated with her eyes at this time. She has no other complaints at this time. Denies fevers, chills, nausea, vomiting, chest pain, shortness of breath, palpitations or headaches. Objective - Vital Signs/Intake and Output Vital Signs (last 24 hours): Temp Pulse Resp BP Pulse Ox 98.3 F 111 H 20 145/91 H 96 01/11/18 23:30 01/12/18 04:04 01/11/18 23:30 01/11/18 23:30 01/11/18 23:30 Intake and Output: 01/12/18 01/12/18 06:59 18:59 Intake Total 120 Output Total 250 Balance -130 - Medications Medications: Current Medications Acetaminophen (Tylenol 325mg Tab) 650 mg PO Q6 PRN PRN Reason: pain/fever\ Last Admin: 01/05/18 14:30 Dose: 650 mg Al Hydrox/Mg Hydrox/Simethicone (Maalox Plus 30 Ml) 30 ml PO Q8 PRN PRN Reason: Indigestion / Heartburn Last Admin: 01/11/18 21:44 Dose: 30 ml Albuterol/Ipratropium (Duoneb 3 Mg/0.5 Mg (3 Ml) Ud) 3 ml INH RQ4 [facility] Last Admin: 01/12/18 03:25 Dose: 3 ml Bupropion HCl (Wellbutrin) 75 mg PO DAILY [facility] Last Admin: 01/11/18 09:41 Dose: 75 mg Colchicine (Colocrys) 0.6 mg PO DAILY [facility] Last Admin: 01/11/18 09:41 Dose: 0.6 mg Cyclobenzaprine HCl (Flexeril) 5 mg PO TID [facility] Last Admin: 01/11/18 18:09 Dose: 5 mg Dextrose (Dextrose 50% Inj) 0 ml IV STAT PRN; Protocol PRN Reason: Hypoglycemia Protocol Dextrose (Glutose 15) 0 gm PO ONCE PRN; Protocol PRN Reason: Hypoglycemia Protocol Diazepam (Valium) 5 mg PO BID PRN PRN Reason: Anxiety Last Admin: 01/11/18 21:44 Dose: 5 mg Diltiazem HCl (Cardizem Cd) 120 mg PO DAILY [facility] Last Admin: 01/11/18 09:39 Dose: 120 mg Famotidine (Pepcid) 20 mg PO DAILY [facility] Last Admin: 01/11/18 09:53 Dose: 20 mg Fludrocortisone Acetate (Florinef) 0.1 mg PO DAILY [facility] Last Admin: 01/11/18 09:41 Dose: 0.1 mg Furosemide (Lasix) 20 mg PO DAILY [facility] Last Admin: 01/11/18 09:39 Dose: 20 mg Gabapentin (Neurontin) 300 mg PO TID [facility] Last Admin: 01/11/18 18:08 Dose: 300 mg Glipizide (Glucotrol) 10 mg PO BIDAC [facility] Last Admin: 01/11/18 18:09 Dose: 10 mg Glucagon (Glucagen Diagnostic Kit) 0 mg IM STAT PRN; Protocol PRN Reason: Hypoglycemia Protocol Hydrocortisone (Cortef) 20 mg PO TID [facility] Last Admin: 01/11/18 18:09 Dose: 20 mg Hydrocortisone (Anusol-Hc) 1 gm NE BID [facility] Last Admin: 01/11/18 09:59 Dose: 1 appl Insulin Aspart (Novolog) 0 unit SC ACHS [facility] PRN Reason: Protocol Last Admin: 01/11/18 21:45 Dose: Not Given Insulin Human Isoph/Insulin Regular (Novolin 70/30 (70/30 Units/Ml) 10 Ml) 20 units SC ACD [facility] Last Admin: 01/11/18 18:08 Dose: 20 units Insulin Human Isoph/Insulin Regular (Novolin 70/30 (70/30 Units/Ml) 10 Ml) 30 units SC ACB [facility] Last Admin: 01/11/18 08:04 Dose: 30 units Insulin Human NPH (Novolin N) 12 unit SC HS [facility] Last Admin: 01/11/18 21:44 Dose: 12 units Levothyroxine Sodium (Synthroid) 100 mcg PO DAILY@0630 [facility] Last Admin: 01/12/18 05:40 Dose: 100 mcg Lisinopril (Zestril) 10 mg PO DAILY [facility] Last Admin: 01/11/18 09:40 Dose: 10 mg Magnesium Oxide (Mag-Ox) 400 mg PO DAILY [facility] Last Admin: 01/11/18 09:39 Dose: 400 mg Methylprednisolone (Solu-Medrol) 40 mg IVP Q12H [facility] Last Admin: 01/11/18 21:44 Dose: 40 mg Metoprolol Tartrate (Lopressor) 50 mg PO BID [facility] Last Admin: 01/11/18 18:10 Dose: 50 mg Mirtazapine (Remeron) 15 mg PO HS [facility] Last Admin: 01/11/18 21:46 Dose: 15 mg Pantoprazole Sodium (Protonix Ec Tab) 20 mg PO DAILY [facility] Last Admin: 01/11/18 09:54 Dose: 20 mg Potassium Chloride (K-Dur 20 Meq Er Tab) 20 meq PO DAILY [facility] Last Admin: 01/11/18 09:53 Dose: 20 meq Promethazine HCl (Phenergan Syrup) 6.25 mg PO QID PRN PRN Reason: Cough Last Admin: 01/07/18 21:37 Dose: 6.25 mg Rivaroxaban (Xarelto) 20 mg PO DAILY [facility] Last Admin: 01/11/18 09:41 Dose: 20 mg Fluticasone/Salmeterol (Advair Diskus 250/50) 1 puff INH RQ12 [facility] Last Admin: 01/11/18 20:07 Dose: Not Given Senna/Docusate Sodium (Senokot S 50 Mg-8.6 Mg) 1 tab PO HS [facility] Last Admin: 01/11/18 21:44 Dose: 1 tab Sitagliptin Phosphate (Januvia) 100 mg PO DAILY [facility] Last Admin: 01/11/18 09:54 Dose: 100 mg - Labs Labs: 01/11/18 06:39 01/11/18 06:39 PT 19.0 SECONDS (9.7-12.2) H 01/04/18 09:26 INR 1.7 01/04/18 09:26 - Constitutional Appears: Non-toxic, No Acute Distress, Chronically Ill - Head Exam Head Exam: NORMOCEPHALIC - Eye Exam Eye Exam: EOMI, PERRL. absent: Scleral icterus Pupil Exam: NORMAL ACCOMODATION Additional comments: Left eye - bulging of sclera over lower portion of eyelid, gelatinous in appearance. No erythema. No pain. No acute change in vision per patient. - ENT Exam ENT Exam: Mucous Membranes Moist - Neck Exam Neck Exam: absent: Lymphadenopathy - Respiratory Exam Respiratory Exam: Clear to Ausculation Bilateral, NORMAL BREATHING PATTERN. absent: Accessory Muscle Use, Rales, Rhonchi, Wheezes, Respiratory Distress Additional comments: On NC 2L - Cardiovascular Exam Cardiovascular Exam: Tachycardia (~111 bpm on tele), +S1, +S2 - GI/Abdominal Exam GI & Abdominal Exam: Soft. absent: Distended, Firm, Guarding, Rigid, Tenderness Additional comments: No tenderness but patient reports discomfort/feeling full. - Extremities Exam Extremities Exam: Pedal Edema (trace pitting b/l). absent: Calf Tenderness - Neurological Exam Neurological Exam: Alert, Awake, Oriented x3 - Psychiatric Exam Psychiatric exam: Normal Affect, Normal Mood - Skin Skin Exam: Dry, Warm Assessment and Plan - Assessment and Plan (Free Text) Plan: Shortness of breath 2/2 HCAP vs COPD exacerbation -Stable, afebrile -Supplemental O2 as needed, Bipap prn -CXR showed mild increase in potential left basilar airspace disease reinterated with linear atelectasis identified lateral to the right hilum -CT Chest w/o 01/10: Medial b/l lower lobe consolidations vs atelectasis. -strep pnuemonia, urine legionella, mycoplasma- Negative -procalcitonin 4.58 -sputum cultures 01/09/18 - normal narinder -blood cultures 01/07/18 - negative at 5 days -Duonebs q4h -Solumedrol 40mg IVP Q12H - discontinued -Prednisone 40mg PO daily -Phenergan 6.25mg PO QID prn cough -Advair 250/50 1puff INH q12h Diastolic Congestive Heart Failure -Last echo 2017 showed Grade III reversible restrictive diastolic dysfunction, EF 55% -Continue Lasix 20mg PO daily Abnormal UA -UA positive for nitrates and leukocyte esterase -urine cultures: negative -Antibiotics: Rocephin 1 gm daily - completed Diabetes Mellitus -Insulin sliding scale -Monitor accuchecks -Novolin 30 units ABC, Novolin 20 units ACD, Novolin 12 units HS -Januvia 100mg PO daily, Glipizide 10mg PO BID -Hypoglycemia protocol -HgA1c 9.3 -Gabapentin 300mg PO TID Hypertension -Continue Lisinopril 10mg PO daily -Continue Lopressor 25mg PO BID -->increased to 50mg PO BID -Cardizem 120mg PO daily Elevated LFTs (improving) -hepatitis panel negative -Continue to monitor -AST/ALT 58/260 (was 73/321 on 01/11) Constipation Docusate Sodium/Sennosides A 50mg-8.6mg PO HS Given Dulcolax 10mg NE and 5mg PO once Monitor for BM - if no BM by afternoon, will give fleet enema Hypokalemia -Monitor and replete as needed -Potassium 20meq PO daily -Potassium 3.9 Hypothyroidism -Continue Synthroid 100mcg PO daily History of DVT/PE -Continue Xarelto 20mg PO daily GI/DVT ppx: -Protonix 40mg PO daily -Xarelto 20mg PO daily -PT/OT - reordered PT for d/c planning DIPSO: Patient is pending approval to [facility] discharge. Patient is medically stable and can be discharged once placement is approved. Case discussed with Dr Gutierres All medical management as per Dr. Nenita Luke Kaye PGY2
[2018-01-12] MEDS: (Novolog) Insulin Aspart, Recombinant 100 u/ml 10 ml vial SC SCH ×4 (07:45→22:19)
[2018-01-12] MEDS: (Novolin 70/30) NPH/Regular 70/30 Units/ml 10 ml vial SC SCH ×2 (07:46→17:29)
[2018-01-12] MEDS: Fluticasone-Salmeterol 250-50mcg Diskus INH SCH ×2 (07:47→19:44)
[2018-01-12 08:32] LABS: BASO % 0.2 % (0.0-2.0); HEMOGLOBIN 9.5 g/dL (11.0-16.0); LYMPH # 0.5 K/uL (1.0-4.3); LYMPH % 4.8 % (20.0-40.0); MEAN CELL VOLUME 78.8 fL (81.0-99.0); MEAN CORPUSCULAR HEMOGLOBIN 24.8 pg (27.0-31.0); MEAN CORPUSCULAR HGB CONC 31.5 g/dL (33.0-37.0); MEAN PLATELET VOLUME 8.9 fL (7.2-11.7); MONO # 0.4 K/uL (0.0-0.8); MONO % 3.3 % (0.0-10.0); NEUT # 10.2 K/uL (1.8-7.0); NEUT % 91.7 % (50.0-75.0); NRBC % 0.5 % (0.0-2.0); PLATELET COUNT 237 K/uL (130-400); RBC 3.83 Mil/uL (3.80-5.20); RED CELL DISTRIBUTION WIDTH 14.8 % (11.5-14.5); WHITE BLOOD COUNT 11.1 K/uL (4.8-10.8)
[2018-01-12 08:53] LABS: ALB/GLOB RATIO 1.1 (1.0-2.1); ALBUMIN 2.6 g/dL (3.5-5.0); ALT/SGPT 260 U/L (9-52); AST/SGOT 58 U/L (14-36); BLOOD UREA NITROGEN 51 mg/dL (7-17); CALCIUM 8.4 mg/dl (8.6-10.4); GFR AFRICAN-AMERICAN > 60; GFR NON-AFRICAN AMERICAN 56
[2018-01-12 09:14] LABS: BANDS 2 % (0-2); LYMPHOCYTE 4 % (20-40); MONOCYTE 3 % (0-10); MYELOCYTE 1 % (0-0); TOTAL CELLS COUNTED 100
[2018-01-12 09:15] LABS: NEUTROPHIL 90 % (50-75); PLATELET ESTIMATE NORMAL (NORMAL)
[2018-01-12 09:16] LABS: ANISOCYTOSIS SLIGHT; HYPOCHROMIC SLIGHT; POIKILOCYTOSIS SLIGHT
[2018-01-12 09:17] LABS: MICROCYTOSIS SLIGHT; TEARDROP CELLS SLIGHT
[2018-01-12 09:20] LABS: OVALOCYTES SLIGHT
[2018-01-12] MEDS: diltiaZEM 120 mg/24 Hours CD Cap PO SCH (09:27)
[2018-01-12] MEDS: Pantoprazole 20 mg EC Tab PO SCH (09:27)
[2018-01-12] MEDS: Magnesium Oxide 400 mg Tab UD PO SCH (09:28)
[2018-01-12] MEDS: MethylPREDNISolone 40 mg Vial IVP SCH (09:29)
[2018-01-12] MEDS ORDERED: Bisacodyl 5mg EC Tab PO ONE (09:38)
[2018-01-12] MEDS: Potassium Chloride 20 mEq ER Tab PO SCH (09:53)
[2018-01-12] MEDS: Hydrocortisone 2.5% Rectal Cream(30 gm) PR SCH ×2 (11:13→17:42)
[2018-01-12] MEDS: (Novolin N) Insulin Human Isophane (NPH) 100 u/ml 10 ml vial SC SCH (22:17)
[2018-01-12] MEDS: Docusate-Senna 50 mg-8.6 mg Tab PO SCH (22:18)
[2018-01-13] MEDS: Albuterol-Ipratrop 3 mg / 0.5 (3 ml) UD INH SCH ×6 (03:10→23:58)
[2018-01-13] MEDS: Levothyroxine 100 MCG TAB PO SCH (06:09)
[2018-01-13] MEDS: Fluticasone-Salmeterol 250-50mcg Diskus INH SCH ×2 (07:39→19:04)
[2018-01-13] MEDS: (Novolog) Insulin Aspart, Recombinant 100 u/ml 10 ml vial SC SCH ×4 (09:02→21:46)
[2018-01-13] MEDS: (Novolin 70/30) NPH/Regular 70/30 Units/ml 10 ml vial SC SCH ×2 (09:02→18:02)
--- NOTE | 2018-01-13 10:05 | CP.PCM.PN ---
Subjective - Date & Time of Evaluation Date of Evaluation: 01/13/18 Time of Evaluation: 09:59 - Subjective Subjective: PGY2 Medicine Note for Dr. Gutierres Patient seen and examined this morning at bedside. No acute events overnight. Patient is resting comfortably in bed without any complaints. She states that her breathing is improved and she feels well. Her vision is still at baseline and denies any pain. She has no other complaints at this time. Denies fevers, chills, nausea, vomiting, chest pain, shortness of breath, palpitations or headaches. Objective - Vital Signs/Intake and Output Vital Signs (last 24 hours): Temp Pulse Resp BP Pulse Ox 97.7 F 95 H 18 149/92 H 98 01/13/18 07:00 01/13/18 07:00 01/13/18 07:00 01/13/18 07:00 01/13/18 07:00 Intake and Output: 01/13/18 01/13/18 06:59 18:59 Intake Total 240 Output Total 1300 Balance -1060 - Medications Medications: Current Medications Acetaminophen (Tylenol 325mg Tab) 650 mg PO Q6 PRN PRN Reason: pain/fever\ Last Admin: 01/05/18 14:30 Dose: 650 mg Al Hydrox/Mg Hydrox/Simethicone (Maalox Plus 30 Ml) 30 ml PO Q8 PRN PRN Reason: Indigestion / Heartburn Last Admin: 01/11/18 21:44 Dose: 30 ml Albuterol/Ipratropium (Duoneb 3 Mg/0.5 Mg (3 Ml) Ud) 3 ml INH RQ4 [facility] Last Admin: 01/13/18 07:38 Dose: 3 ml Bupropion HCl (Wellbutrin) 75 mg PO DAILY [facility] Last Admin: 01/12/18 09:30 Dose: 75 mg Colchicine (Colocrys) 0.6 mg PO DAILY [facility] Last Admin: 01/12/18 09:29 Dose: 0.6 mg Cyclobenzaprine HCl (Flexeril) 5 mg PO TID [facility] Last Admin: 01/12/18 17:30 Dose: 5 mg Dextrose (Dextrose 50% Inj) 0 ml IV STAT PRN; Protocol PRN Reason: Hypoglycemia Protocol Dextrose (Glutose 15) 0 gm PO ONCE PRN; Protocol PRN Reason: Hypoglycemia Protocol Diazepam (Valium) 5 mg PO BID PRN PRN Reason: Anxiety Last Admin: 01/12/18 22:18 Dose: 5 mg Diltiazem HCl (Cardizem Cd) 120 mg PO DAILY [facility] Last Admin: 01/12/18 09:27 Dose: 120 mg Famotidine (Pepcid) 20 mg PO DAILY [facility] Last Admin: 01/12/18 09:27 Dose: 20 mg Fludrocortisone Acetate (Florinef) 0.1 mg PO DAILY [facility] Last Admin: 01/12/18 09:30 Dose: 0.1 mg Furosemide (Lasix) 20 mg PO DAILY [facility] Last Admin: 01/12/18 09:28 Dose: 20 mg Gabapentin (Neurontin) 300 mg PO TID [facility] Last Admin: 01/12/18 17:28 Dose: 300 mg Glipizide (Glucotrol) 10 mg PO BIDAC [facility] Last Admin: 01/13/18 09:02 Dose: 10 mg Glucagon (Glucagen Diagnostic Kit) 0 mg IM STAT PRN; Protocol PRN Reason: Hypoglycemia Protocol Hydrocortisone (Cortef) 20 mg PO TID [facility] Last Admin: 01/12/18 17:30 Dose: 20 mg Hydrocortisone (Anusol-Hc) 1 gm [place] BID [facility]PL[facility] Last Admin: 01/12/18 17:42 Dose: 1 appl Insulin Aspart (Novolog) 0 unit SC ACHS [facility] PRN Reason: Protocol Last Admin: 01/13/18 09:02 Dose: 2 units Insulin Human Isoph/Insulin Regular (Novolin 70/30 (70/30 Units/Ml) 10 Ml) 20 units SC ACD [facility] Last Admin: 01/12/18 17:29 Dose: 20 units Insulin Human Isoph/Insulin Regular (Novolin 70/30 (70/30 Units/Ml) 10 Ml) 30 units SC ACB [facility] Last Admin: 01/13/18 09:02 Dose: 30 units Insulin Human NPH (Novolin N) 12 unit SC HS [facility] Last Admin: 01/12/18 22:17 Dose: 12 units Levothyroxine Sodium (Synthroid) 100 mcg PO DAILY@0630 [facility] Last Admin: 01/13/18 06:09 Dose: 100 mcg Lisinopril (Zestril) 10 mg PO DAILY [facility] Last Admin: 01/12/18 09:29 Dose: 10 mg Magnesium Oxide (Mag-Ox) 400 mg PO DAILY [facility] Last Admin: 01/12/18 09:28 Dose: 400 mg Metoprolol Tartrate (Lopressor) 50 mg PO BID [facility] Last Admin: 01/12/18 17:34 Dose: 50 mg Mirtazapine (Remeron) 15 mg PO HS [facility] Last Admin: 01/12/18 22:18 Dose: 15 mg Pantoprazole Sodium (Protonix Ec Tab) 20 mg PO DAILY [facility] Last Admin: 01/12/18 09:27 Dose: 20 mg Potassium Chloride (K-Dur 20 Meq Er Tab) 20 meq PO DAILY [facility] Last Admin: 01/12/18 09:53 Dose: 20 meq Prednisone (Prednisone Tab) 40 mg PO DAILY [facility] Promethazine HCl (Phenergan Syrup) 6.25 mg PO QID PRN PRN Reason: Cough Last Admin: 01/07/18 21:37 Dose: 6.25 mg Rivaroxaban (Xarelto) 20 mg PO DAILY [facility] Last Admin: 01/12/18 09:30 Dose: 20 mg Fluticasone/Salmeterol (Advair Diskus 250/50) 1 puff INH RQ12 [facility] Last Admin: 01/13/18 07:39 Dose: Not Given Senna/Docusate Sodium (Senokot S 50 Mg-8.6 Mg) 1 tab PO HS [facility] Last Admin: 01/12/18 22:18 Dose: 1 tab Sitagliptin Phosphate (Januvia) 100 mg PO DAILY [facility] Last Admin: 01/12/18 09:27 Dose: 100 mg - Labs Labs: 01/12/18 08:13 01/12/18 08:13 PT 19.0 SECONDS (9.7-12.2) H 01/04/18 09:26 INR 1.7 01/04/18 09:26 - Constitutional Appears: Non-toxic, No Acute Distress, Chronically Ill - Head Exam Head Exam: NORMOCEPHALIC - Eye Exam Eye Exam: EOMI, PERRL. absent: Scleral icterus Additional comments: Left eye - bulging of sclera over lower portion of eyelid, gelatinous in appearance. No erythema. No pain. No acute change in vision per patient. - ENT Exam ENT Exam: Mucous Membranes Moist Additional comments: Oral candidiasis - Respiratory Exam Respiratory Exam: Clear to Ausculation Bilateral, NORMAL BREATHING PATTERN. absent: Accessory Muscle Use, Rales, Rhonchi, Wheezes, Respiratory Distress Additional comments: sleeping on 2L NC - Cardiovascular Exam Cardiovascular Exam: REGULAR RHYTHM, +S1, +S2 - GI/Abdominal Exam GI & Abdominal Exam: Soft, Normal Bowel Sounds. absent: Distended, Firm, Guarding, Rigid, Tenderness - Extremities Exam Extremities Exam: Pedal Edema (trace pitting b/l). absent: Calf Tenderness Additional comments: Patient able to move all extremities - Neurological Exam Neurological Exam: Alert, Awake, CN II-XII Intact, Oriented x3 - Psychiatric Exam Psychiatric exam: Normal Affect, Normal Mood - Skin Skin Exam: Dry, Warm Assessment and Plan - Assessment and Plan (Free Text) Plan: Shortness of breath 2/2 HCAP vs COPD exacerbation -Stable, afebrile -Supplemental O2 as needed, Bipap prn -CXR showed mild increase in potential left basilar airspace disease reinterated with linear atelectasis identified lateral to the right hilum -CT Chest w/o 01/10: Medial b/l lower lobe consolidations vs atelectasis. -strep pnuemonia, urine legionella, mycoplasma- Negative -procalcitonin 4.58 -sputum cultures 01/09/18: normal narinder -blood cultures 01/07/18: negative at 5 days -Duonebs q4h -Prednisone 40mg PO daily - slow taper -Phenergan 6.25mg PO QID prn cough -Advair 250/50 1puff INH q12h Diastolic Congestive Heart Failure -Last echo 2016 showed Grade III reversible restrictive diastolic dysfunction, EF 55% -Continue Lasix 20mg PO daily Abnormal UA -UA positive for nitrates and leukocyte esterase -urine cultures 01/07/18: negative -Antibiotics: Rocephin 1 gm daily - completed Diabetes Mellitus -Insulin sliding scale -Monitor accuchecks -Novolin 30 units ABC, Novolin 20 units ACD, Novolin 12 units HS -Januvia 100mg PO daily, Glipizide 10mg PO BID -Hypoglycemia protocol -HgA1c 9.3 -Gabapentin 300mg PO TID Hypertension -Continue Lisinopril 10mg PO daily -Continue Lopressor 25mg PO BID -->increased to 50mg PO BID -Cardizem 120mg PO daily Elevated LFTs (improving) -hepatitis panel negative -Continue to monitor -AST/ALT 58/260 (on 01/12) Oral Candidiasis Diflucan 200mg PO daily (started 01/13, end on 01/17) Nystatin Oral Susp PO QID (started on 01/13) Constipation Docusate Sodium/Sennosides A 50mg-8.6mg PO HS Given Dulcolax 10mg [place] and 5mg PO once Monitor for BM - if no BM by afternoon, will give fleet enema Hypokalemia -Potassium 20meq PO daily -Monitor and replete as needed Hypothyroidism -Continue Synthroid 100mcg PO daily History of DVT/PE -Continue Xarelto 20mg PO daily GI/DVT ppx: -Protonix 40mg PO daily -Xarelto 20mg PO daily -PT/OT DIPSO: Patient is pending approval to [facility] discharge. Patient is medically stable and can be discharged once placement is approved. Case discussed with Dr Gutierres All medical management as per Dr. Nenita Luke Kaye PGY2
[2018-01-13] MEDS: Potassium Chloride 20 mEq ER Tab PO SCH (10:38)
[2018-01-13] MEDS: Pantoprazole 20 mg EC Tab PO SCH (10:38)
[2018-01-13] MEDS: diltiaZEM 120 mg/24 Hours CD Cap PO SCH (10:38)
[2018-01-13] MEDS: Magnesium Oxide 400 mg Tab UD PO SCH (10:38)
[2018-01-13] MEDS: Hydrocortisone 2.5% Rectal Cream(30 gm) PR SCH ×2 (10:40→18:13)
[2018-01-13] MEDS: Nystatin 100,000 Units/ml Oral Susp 5 ml UD PO SCH ×3 (13:04→21:42)
[2018-01-14] MEDS: Albuterol-Ipratrop 3 mg / 0.5 (3 ml) UD INH SCH ×4 (04:34→15:56)
[2018-01-14] MEDS: Levothyroxine 100 MCG TAB PO SCH (05:41)
[2018-01-14 07:26] LABS: ALB/GLOB RATIO 1.2 (1.0-2.1); ALBUMIN 2.6 g/dL (3.5-5.0); ALT/SGPT 238 U/L (9-52); AST/SGOT 46 U/L (14-36); BLOOD UREA NITROGEN 45 mg/dL (7-17); CALCIUM 8.2 mg/dl (8.6-10.4); GFR AFRICAN-AMERICAN > 60; GFR NON-AFRICAN AMERICAN > 60
[2018-01-14 07:30] LABS: BASO % 0.2 % (0.0-2.0); EOS % 0.1 % (0.0-4.0); HEMOGLOBIN 9.8 g/dL (11.0-16.0); LYMPH # 0.7 K/uL (1.0-4.3); LYMPH % 5.9 % (20.0-40.0); MEAN CELL VOLUME 78.3 fL (81.0-99.0); MEAN CORPUSCULAR HEMOGLOBIN 24.3 pg (27.0-31.0); MEAN CORPUSCULAR HGB CONC 31.1 g/dL (33.0-37.0); MEAN PLATELET VOLUME 8.9 fL (7.2-11.7); MONO # 0.5 K/uL (0.0-0.8); MONO % 4.5 % (0.0-10.0); NEUT # 10.5 K/uL (1.8-7.0); NEUT % 89.3 % (50.0-75.0); NRBC % 0.2 % (0.0-2.0); PLATELET COUNT 234 K/uL (130-400); RBC 4.01 Mil/uL (3.80-5.20); RED CELL DISTRIBUTION WIDTH 15.2 % (11.5-14.5); WHITE BLOOD COUNT 11.8 K/uL (4.8-10.8)
--- NOTE | 2018-01-14 07:38 | CP.PCM.PN ---
Subjective - Date & Time of Evaluation Date of Evaluation: 01/14/18 Time of Evaluation: 07:38 - Subjective Subjective: Internal Medicine Progress Note - Dr Gutierres Service Patient seen and examined at bedside. Per nursing no acute events overnight. Patient is resting comfortably off NC. Able to speak in full sentences. Offers no other complaints at this time. Patient is pending authorization to subacute rehab. Objective - Vital Signs/Intake and Output Vital Signs (last 24 hours): Temp Pulse Resp BP Pulse Ox 97.9 F 113 H 20 158/64 H 97 01/14/18 04:00 01/14/18 04:00 01/14/18 04:00 01/14/18 04:00 01/14/18 04:00 Intake and Output: 01/14/18 01/14/18 06:59 18:59 Intake Total 420 Output Total 1000 Balance -580 - Medications Medications: Current Medications Acetaminophen (Tylenol 325mg Tab) 650 mg PO Q6 PRN PRN Reason: pain/fever\ Last Admin: 01/05/18 14:30 Dose: 650 mg Al Hydrox/Mg Hydrox/Simethicone (Maalox Plus 30 Ml) 30 ml PO Q8 PRN PRN Reason: Indigestion / Heartburn Last Admin: 01/11/18 21:44 Dose: 30 ml Albuterol/Ipratropium (Duoneb 3 Mg/0.5 Mg (3 Ml) Ud) 3 ml INH RQ4 [facility] Last Admin: 01/14/18 07:31 Dose: 3 ml Bupropion HCl (Wellbutrin) 75 mg PO DAILY [facility] Last Admin: 01/13/18 10:38 Dose: 75 mg Colchicine (Colocrys) 0.6 mg PO DAILY [facility] Last Admin: 01/13/18 10:38 Dose: 0.6 mg Cyclobenzaprine HCl (Flexeril) 5 mg PO TID [facility] Last Admin: 01/13/18 18:01 Dose: 5 mg Dextrose (Dextrose 50% Inj) 0 ml IV STAT PRN; Protocol PRN Reason: Hypoglycemia Protocol Dextrose (Glutose 15) 0 gm PO ONCE PRN; Protocol PRN Reason: Hypoglycemia Protocol Diazepam (Valium) 5 mg PO BID PRN PRN Reason: Anxiety Last Admin: 01/13/18 21:42 Dose: 5 mg Diltiazem HCl (Cardizem Cd) 120 mg PO DAILY [facility] Last Admin: 01/13/18 10:38 Dose: 120 mg Famotidine (Pepcid) 20 mg PO DAILY [facility] Last Admin: 01/13/18 10:38 Dose: 20 mg Fluconazole (Diflucan) 200 mg PO DAILY [facility] PRN Reason: Protocol Stop: 01/19/18 12:00 Last Admin: 01/13/18 12:40 Dose: 200 mg Fludrocortisone Acetate (Florinef) 0.1 mg PO DAILY [facility] Last Admin: 01/13/18 13:06 Dose: 0.1 mg Furosemide (Lasix) 20 mg PO DAILY [facility] Last Admin: 01/13/18 10:38 Dose: 20 mg Gabapentin (Neurontin) 300 mg PO TID [facility] Last Admin: 01/13/18 18:01 Dose: 300 mg Glipizide (Glucotrol) 10 mg PO BIDAC [facility] Last Admin: 01/13/18 18:02 Dose: 10 mg Glucagon (Glucagen Diagnostic Kit) 0 mg IM STAT PRN; Protocol PRN Reason: Hypoglycemia Protocol Hydrocortisone (Cortef) 20 mg PO TID [facility] Last Admin: 01/13/18 18:00 Dose: 20 mg Hydrocortisone (Anusol-Hc) [address] BID [facility] Last Admin: 01/13/18 18:13 Dose: 1 appl Insulin Aspart (Novolog) 0 unit SC ACHS [facility] PRN Reason: Protocol Last Admin: 01/13/18 21:46 Dose: Not Given Insulin Human Isoph/Insulin Regular (Novolin 70/30 (70/30 Units/Ml) 10 Ml) 20 units SC ACD [facility] Last Admin: 01/13/18 18:02 Dose: 20 units Insulin Human Isoph/Insulin Regular (Novolin 70/30 (70/30 Units/Ml) 10 Ml) 30 units SC ACB [facility] Last Admin: 01/13/18 09:02 Dose: 30 units Insulin Human NPH (Novolin N) 12 unit SC HS [facility] Last Admin: 01/12/18 22:17 Dose: 12 units Levothyroxine Sodium (Synthroid) 100 mcg PO DAILY@0630 [facility] Last Admin: 01/14/18 05:41 Dose: 100 mcg Lisinopril (Zestril) 10 mg PO DAILY [facility] Last Admin: 01/13/18 10:38 Dose: 10 mg Magnesium Oxide (Mag-Ox) 400 mg PO DAILY [facility] Last Admin: 01/13/18 10:38 Dose: 400 mg Metoprolol Tartrate (Lopressor) 50 mg PO BID [facility] Last Admin: 01/13/18 10:38 Dose: 50 mg Mirtazapine (Remeron) 15 mg PO HS [facility] Last Admin: 01/13/18 21:43 Dose: 15 mg Nystatin (Nystatin Oral Susp) 5 ml PO QID [facility] Last Admin: 01/13/18 21:42 Dose: 5 ml Pantoprazole Sodium (Protonix Ec Tab) 20 mg PO DAILY [facility] Last Admin: 01/13/18 10:38 Dose: 20 mg Potassium Chloride (K-Dur 20 Meq Er Tab) 20 meq PO DAILY [facility] Last Admin: 01/13/18 10:38 Dose: 20 meq Prednisone (Prednisone Tab) 40 mg PO DAILY [facility] Last Admin: 01/13/18 10:38 Dose: 40 mg Promethazine HCl (Phenergan Syrup) 6.25 mg PO QID PRN PRN Reason: Cough Last Admin: 01/07/18 21:37 Dose: 6.25 mg Rivaroxaban (Xarelto) 20 mg PO DAILY [facility] Last Admin: 01/13/18 10:38 Dose: 20 mg Fluticasone/Salmeterol (Advair Diskus 250/50) 1 puff INH RQ12 [facility] Last Admin: 01/13/18 19:04 Dose: Not Given Senna/Docusate Sodium (Senokot S 50 Mg-8.6 Mg) 1 tab PO HS [facility] Last Admin: 01/12/18 22:18 Dose: 1 tab Sitagliptin Phosphate (Januvia) 100 mg PO DAILY [facility] Last Admin: 01/13/18 10:38 Dose: 100 mg - Labs Labs: 01/14/18 06:38 01/14/18 06:38 PT 19.0 SECONDS (9.7-12.2) H 01/04/18 09:26 INR 1.7 01/04/18 09:26 - Additional Findings Additional findings: - Constitutional Appears: Non-toxic, No Acute Distress, Chronically Ill - Head Exam Head Exam: NORMOCEPHALIC - Eye Exam Eye Exam: EOMI, PERRL. absent: Scleral icterus Additional comments: Left eye - bulging of sclera over lower portion of eyelid, gelatinous in appearance. No erythema. No pain. No acute change in vision per patient. - ENT Exam ENT Exam: Mucous Membranes Moist Additional comments: Oral candidiasis - Respiratory Exam Respiratory Exam: Clear to Ausculation Bilateral, NORMAL BREATHING PATTERN. absent: Accessory Muscle Use, Rales, Rhonchi, Wheezes, Respiratory Distress Additional comments: sleeping on 2L NC - Cardiovascular Exam Cardiovascular Exam: REGULAR RHYTHM, +S1, +S2 - GI/Abdominal Exam GI & Abdominal Exam: Soft, Normal Bowel Sounds. absent: Distended, Firm, Guarding, Rigid, Tenderness - Extremities Exam Extremities Exam: Pedal Edema (trace pitting b/l). absent: Calf Tenderness Additional comments: Patient able to move all extremities - Neurological Exam Neurological Exam: Alert, Awake, CN II-XII Intact, Oriented x3 - Psychiatric Exam Psychiatric exam: Normal Affect, Normal Mood - Skin Skin Exam: Dry, Warm Assessment and Plan - Assessment and Plan (Free Text) Assessment: Shortness of breath 2/2 HCAP vs COPD exacerbation -Stable, afebrile -Supplemental O2 as needed, Bipap prn -CXR showed mild increase in potential left basilar airspace disease reinterated with linear atelectasis identified lateral to the right hilum -CT Chest w/o 01/10: Medial b/l lower lobe consolidations vs atelectasis. -strep pnuemonia, urine legionella, mycoplasma- Negative -procalcitonin 4.58 -sputum cultures 01/09/18: normal narinder -blood cultures 01/07/18: negative at 5 days -Duonebs q4h -Prednisone 40mg PO daily - slow taper -Phenergan 6.25mg PO QID prn cough -Advair 250/50 1puff INH q12h Diastolic Congestive Heart Failure -Last echo 2016 showed Grade III reversible restrictive diastolic dysfunction, EF 55% -Continue Lasix 20mg PO daily Abnormal UA -UA positive for nitrates and leukocyte esterase -urine cultures 01/07/18: negative -Antibiotics: Rocephin 1 gm daily - completed Diabetes Mellitus -Insulin sliding scale -Monitor accuchecks -Novolin 30 units ABC, Novolin 20 units ACD, Novolin 12 units HS -Januvia 100mg PO daily, Glipizide 10mg PO BID -Hypoglycemia protocol -HgA1c 9.3 -Gabapentin 300mg PO TID Hypertension -Continue Lisinopril 10mg PO daily -Continue Lopressor 25mg PO BID -->increased to 50mg PO BID -Cardizem 120mg PO daily Elevated LFTs (improving) -Hepatitis panel negative -Continue to monitor -AST/ALT 58/260 (on 01/12) Oral Candidiasis Diflucan 200mg PO daily (started 01/13, end on 01/17) Nystatin Oral Susp PO QID (started on 01/13, end on 01/17) Constipation Docusate Sodium/Sennosides A 50mg-8.6mg PO HS Given Dulcolax 10mg CT and 5mg PO once Patient moved her bowels Hypokalemia -Potassium 20meq PO daily -Monitor and replete as needed Hypothyroidism -Continue Synthroid 100mcg PO daily History of DVT/PE -Continue Xarelto 20mg PO daily GI/DVT ppx: -Protonix 40mg PO daily -Xarelto 20mg PO daily -PT/OT DIPSO: Patient is pending approval to [facility] discharge. Patient is medically stable and can be discharged once placement is approved. Case discussed with Dr Gutierres All medical management as per Dr. Nenita Cortez DO PGY-2
[2018-01-14] MEDS: (Novolin 70/30) NPH/Regular 70/30 Units/ml 10 ml vial SC SCH (08:45)
[2018-01-14] MEDS: (Novolog) Insulin Aspart, Recombinant 100 u/ml 10 ml vial SC SCH ×2 (08:45→13:51)
[2018-01-14 09:47] LABS: BANDS 5 % (0-2); LYMPHOCYTE 7 % (20-40); MYELOCYTE 4 % (0-0); NEUTROPHIL 84 % (50-75); PLATELET ESTIMATE NORMAL (NORMAL); TOTAL CELLS COUNTED 100
[2018-01-14 09:48] LABS: ANISOCYTOSIS SLIGHT; HYPOCHROMIC SLIGHT; OVALOCYTES SLIGHT; POIKILOCYTOSIS SLIGHT
[2018-01-14] MEDS: Fluticasone-Salmeterol 250-50mcg Diskus INH SCH (11:20)
[2018-01-14] MEDS: diltiaZEM 120 mg/24 Hours CD Cap PO SCH (11:39)
[2018-01-14] MEDS: Pantoprazole 20 mg EC Tab PO SCH (11:40)
[2018-01-14] MEDS: Nystatin 100,000 Units/ml Oral Susp 5 ml UD PO SCH ×2 (11:47→14:50)
[2018-01-14] MEDS: Magnesium Oxide 400 mg Tab UD PO SCH (11:47)
[2018-01-14] MEDS: Hydrocortisone 2.5% Rectal Cream(30 gm) PR SCH (11:55)
[2018-01-14] MEDS: Potassium Chloride 20 mEq ER Tab PO SCH (11:55)
[2018-01-14 16:52] VITALS: BP 144/83; PULSE 115; RESP 20; TEMP 98.9; O2SAT 98
== END 2018-01-14 17:00 | DRG 190 ==
LOC: C.ER 16:44 → C.9E 18:06 → C.6T 19:05
PROVIDERS: ADMIT Internal Medicine Pulmonary Disease; ATTEND Internal Medicine Pulmonary Disease
DX: J44.0 Chronic obstructive pulmonary disease with (acute) lower respiratory infection (principal); J18.9 Pneumonia, unspecified organism; B37.0 Candidal stomatitis; I50.30 Unspecified diastolic (congestive) heart failure; E03.9 Hypothyroidism, unspecified; E11.9 Type 2 diabetes mellitus without complications; E87.6 Hypokalemia; I11.0 Hypertensive heart disease with heart failure; K59.00 Constipation, unspecified; M06.9 Rheumatoid arthritis, unspecified; M10.9 Gout, unspecified; M79.7 Fibromyalgia; Y95 Nosocomial condition; E78.5 Hyperlipidemia, unspecified; E78.00 Pure hypercholesterolemia, unspecified; Z96.641 Presence of right artificial hip joint; Z79.01 Long term (current) use of anticoagulants; Z86.711 Personal history of pulmonary embolism; Z79.4 Long term (current) use of insulin; Z86.718 Personal history of other venous thrombosis and embolism

== ENCOUNTER 2018-07-07 14:29 | Inpatient (IN) | payer BC, MEDICARE ==
[2018-07-07 14:47] VITALS: BMI 27.4
[2018-07-07] MEDS ORDERED: Sodium Chloride 0.9% 1,000 ML IV ONE (15:33)
--- NOTE | 2018-07-07 15:34 | C.PDOC ---
History Of Present Illness 62 y/o female brought in by family for complaints of lethargy and diminished mental status at home. Patient has also been complaining of a mild non- productive cough. Family notes patient had recent hx of PNA. Otherwise they deny any fever, chills, chest pain, SOB, dizziness, vomiting, or diarrhea. Time Seen by Provider: 07/07/18 15:15 Chief Complaint (Nursing): Altered Mental Status History Per: Patient History/Exam Limitations: None Onset/Duration Of Symptoms: Hrs Current Symptoms Are (Timing): Still Present Past Medical History Reviewed: Historical Data, Nursing Documentation, Vital Signs Vital Signs: Last Vital Signs Temp 97.7 F 07/07/18 14:49 Pulse 90 07/07/18 14:49 Resp 24 07/07/18 14:49 BP 94/57 L 07/07/18 14:49 Pulse Ox 100 07/07/18 14:49 - Medical History PMH: Anemia, Anxiety, Arthritis (R THR /ORIF), Asthma, Cardia Arrhythmia, CHF, COPD, Depression, Diabetes, Deep Vein Thrombosis, Fibromyalgia, Fractures (R HIP), Gall Bladder Disease, HTN, Hypercholesterolemia, Hyperlipidemia, Hypothyroidism, Pulmonary Embolism (on Coumadin W/ IVC filter), Rheumatoid Arthritis Denies: Chronic Kidney Disease Surgical History: Back Surgery, Cholecystectomy Denies: Appendectomy - [facility] Procedures CENTRAL VENOUS CATHETER PLACEMENT WITH GUIDANCE (09/28/14) ENDOSC POLYPECTOMY OF LG INTEST (09/08/14) ESOPHAGOGASTRODUODENOSCOPY [EGD] W/CLOSED BIOPSY (09/08/14) EXCISION OF STOMACH, ENDO, DIAGN (11/19/15) REPOSITION R UP FEMUR WITH INTRAMED FIX, OPEN APPROACH (03/14/17) SPINAL CANAL EXPLOR NEC (09/08/14) Family History: States: Unknown Family Hx - Social History Hx Tobacco Use: No Hx Alcohol Use: No Hx Substance Use: No - Immunization History Hx Tetanus Toxoid Vaccination: No Hx Influenza Vaccination: No Hx Pneumococcal Vaccination: No Review Of Systems Except As Marked, All Systems Reviewed And Found Negative. Constitutional: Positive for: Other (Lethargy). Negative for: Fever Eyes: Negative for: Vision Change Cardiovascular: Negative for: Chest Pain Respiratory: Positive for: Cough. Negative for: Shortness of Breath, Sputum Gastrointestinal: Negative for: Vomiting, Diarrhea Skin: Negative for: Rash Neurological: Positive for: Altered Mental Status. Negative for: Weakness, Dizziness Physical Exam - Physical Exam Appears: Non-toxic, No Acute Distress, Other (Morbidly obese) Skin: Normal Color, Warm, Dry Head: Atraumatic, Normacephalic Eye(s): bilateral: Normal Inspection, PERRL, EOMI Oral Mucosa: Moist Neck: Normal ROM Chest: Symmetrical Respiratory: No Accessory Muscle Use, Rhonchi (rhonchorous breath sounds, right > left), No Wheezing Gastrointestinal/Abdominal: Soft, No Tenderness, No Distention Extremity: Normal ROM, No Pedal Edema, No Deformity Neurological/Psych: Oriented x3, Normal Speech ED Course And Treatment - Laboratory Results Result Diagrams: 07/07/18 15:40 07/07/18 15:40 Lab Interpretation: Abnormal (UA 498 WBC's) ECG: Interpreted By Mo ECG Rhythm: Sinus Rhythm ECG Interpretation: Normal Rate From EC O2 Sat by Pulse Oximetry: 100 (on RA) Pulse Ox Interpretation: Normal - Radiology CXR: Interpreted by Mo CXR Interpretation: Yes: Infiltrates (+ RML/RLL PNA) Reevaluation Time: 16:36 Reassessment Condition: Improved - Physician Consult Information Outcome Of Conversation: 1540, 1630, d/w elliot Anderson to admit. Medical Decision Making Medical Decision Making: recurrent PNA UTI 498 WBC's Rocephin/Azithro, IVF's serum WBC nl, lactate neg. Disposition Doctor Will See Patient In The: Hospital Counseled Patient/Family Regarding: Studies Performed, Diagnosis - Disposition Disposition: HOSPITALIZED Disposition Time: 16:37 Condition: GOOD - Clinical Impression Clinical Impression: Pneumonia, UTI (urinary tract infection) - Scribe Statement The provider has reviewed the documentation as recorded by the Keesha Aponte Provider Attestation: All medical record entries made by the Keesha were at my direction and personally dictated by me. I have reviewed the chart and agree that the record accurately reflects my personal performance of the history, physical exam, medical decision making, and the department course for this patient. I have also personally directed, reviewed, and agree with the discharge instructions and disposition.
[2018-07-07 15:51] LABS: BASO % 0.5 % (0.0-2.0); EOS # 0.2 K/uL (0.0-0.7); EOS % 1.8 % (0.0-4.0); LYMPH % 22.2 % (20.0-40.0); MEAN CELL VOLUME 78.1 fL (81.0-99.0); MEAN CORPUSCULAR HEMOGLOBIN 23.2 pg (27.0-31.0); MEAN CORPUSCULAR HGB CONC 29.7 g/dL (33.0-37.0); MEAN PLATELET VOLUME 8.5 fL (7.2-11.7); MONO # 0.7 K/uL (0.0-0.8); MONO % 7.7 % (0.0-10.0); NEUT % 67.8 % (50.0-75.0); NRBC % 0.1 % (0.0-2.0); RBC 4.4 Mil/uL (3.80-5.20); RED CELL DISTRIBUTION WIDTH 17.4 % (11.5-14.5); WHITE BLOOD COUNT 8.9 K/uL (4.8-10.8)
[2018-07-07 15:53] LABS: HEMOGLOBIN 10.2 g/dL (11.0-16.0)
[2018-07-07 15:54] LABS: VENOUS BLOOD GAS BASE EXCESS -5.4 mmol/L (0.0-2.0); VENOUS BLOOD GAS PCO2 38 mmHg (40-60); VENOUS BLOOD GAS PO2 32 mm/Hg (30-55); VENOUS BLOOD PH 7.33 (7.32-7.43)
[2018-07-07 16:03] LABS: ALB/GLOB RATIO 1.2 (1.0-2.1); ALBUMIN 3.2 g/dL (3.5-5.0); ALT/SGPT 43 U/L (9-52); AST/SGOT 27 U/L (14-36); BLOOD UREA NITROGEN 44 mg/dL (7-17); CALCIUM 8.2 mg/dl (8.6-10.4); GFR NON-AFRICAN AMERICAN 50
--- NOTE | 2018-07-07 16:06 | RAD ---
Date of service: 07/07/2018 PROCEDURE: CHEST RADIOGRAPH, 1 VIEW HISTORY: SOB COMPARISON: 01/03/2018 FINDINGS: LUNGS: Again lung volumes are shallow. Left pleural effusion with likely left compressive atelectasis. Findings fairly similar with prior study Concomitant underlying infiltrate here not excluded. PLEURA: No pneumothorax appreciated. Left pleural effusion similar CARDIOVASCULAR: There is absence of aortic atherosclerotic calcification on x-ray. Cardiomegaly. Probable pulmonary venous congestion in addition to the crowding from shallow lung volumes suspect. OSSEOUS STRUCTURES: No significant abnormalities. VISUALIZED UPPER ABDOMEN: Normal. OTHER FINDINGS: None. IMPRESSION: Shallow lung volumes-limiting optimal evaluation. Left pleural effusion with probable concomitant mild compressive atelectasis here likely. Overall appearance is similar. Cardiomegaly and pulmonary venous congestion also suspect-pulmonary venous congestion accentuated due to the crowding as well. Some worsening pulmonary venous congestion probable
[2018-07-07 16:11] LABS: B-TYPE NATRIURETIC PEPTIDE 314 pg/mL (0-900)
[2018-07-07 16:13] LABS: URINE BACTERIA RARE (<OCC); URINE BILIRUBIN NEGATIVE (NEGATIVE); URINE BLOOD 1+ (NEGATIVE); URINE CLARITY Hazy (Clear); URINE COLOR Yellow (YELLOW); URINE GLUCOSE (UA) NORMAL (Normal); URINE LEUKOCYTE ESTERASE 3+ Leu/uL (Negative); URINE PROTEIN 1+ mg/dL (NEGATIVE); URINE UROBILINOGEN NORMAL mg/dL (0.2-1.0)
[2018-07-07] MEDS ORDERED: cefTRIAXone IV 1 gm in Dextros 50 ML IV ONE (16:15)
[2018-07-07] MEDS ORDERED: Azithromycin 500 MG in Sodium Chloride 0.9% 250 ML IV STA (16:15)
[2018-07-07] MEDS ORDERED: cefTRIAXone 1 gm 1 GM/100 ML BAG IVPB ONE (16:31)
[2018-07-07] MEDS ORDERED: Azithromycin 500mg/250ML NS 500 MG/250 ML BAG IVPB ONE (18:08)
[2018-07-07] MEDS ORDERED: Albuterol-Ipratrop 3 mg / 0.5 (3 ml) UD IH PRN (21:31)
[2018-07-07] MEDS ORDERED: SIMVASTATIN 40 MG PO SCH (22:00)
[2018-07-07] MEDS: (Novolog) Insulin Aspart, Recombinant 100 u/ml 10 ml vial SC SCH (22:31)
[2018-07-07] MEDS: Oxycodone/Acetaminophen 5/325 mg Tab PO PRN (22:37)
[2018-07-08] MEDS: Levothyroxine 100 MCG TAB PO SCH (06:00)
[2018-07-08] MEDS ORDERED: Dextrose 50% SYRINGE Inj (50 ml) IV PRN (07:19)
[2018-07-08] MEDS ORDERED: Glucagon Recombinant 1 mg Inj IM PRN (07:19)
--- NOTE | 2018-07-08 07:38 | CP.PCM.PN ---
Subjective - Date & Time of Evaluation Date of Evaluation: 07/08/18 Time of Evaluation: 07:46 - Subjective Subjective: Medicine Note for Dr. Gutierres This is a 62 year old female with PMHx of COPD, Diastolic HF with LVEF 55%, Hypertension, Diabetes Mellitus, Fibromyalgia, Chronic constipation 2/2 opioid use, Hypothyroidism, History of DVT/PE, Gout, and depression who is admitted for shortness of breath. Patient admits to shortness of breath with a nonproductive cough. Patient denied any sick contacts and does report receiving her flu shot this year. Admits to some dysuria and urinary frequency. Denied fever, chills, chest pain, abdominal pain, n/v/d/ or constipation. PMHx: As noted above PSHx: right hip intertroch ORIF IM nail (03/2017), multiple abdominal surgeries for unknown reasons (EMR states Cholecystectomy, Hysterectomy, Appendectomy) All: NKDA SHx: Denied alcohol, illicit drug use, or tobacco use FHx: Unremarkable Objective - Vital Signs/Intake and Output Vital Signs (last 24 hours): Temp Pulse Resp BP Pulse Ox 98.0 F 99 H 20 112/70 99 07/08/18 06:52 07/08/18 06:52 07/08/18 00:03 07/08/18 06:52 07/08/18 06:52 Intake and Output: 07/08/18 07/08/18 06:59 18:59 Intake Total 150 Output Total 300 Balance -150 - Medications Medications: Current Medications Albuterol/Ipratropium (Duoneb 3 Mg/0.5 Mg (3 Ml) Ud) 3 ml IH Q4 PRN PRN Reason: Shortness of Breath Colchicine (Colocrys) 0.6 mg PO BID [facility] Cyclobenzaprine HCl (Flexeril) 5 mg PO TID [facility] Dextrose (Dextrose 50% Inj) 0 ml IV STAT PRN; Protocol PRN Reason: Hypoglycemia Protocol Dextrose (Glutose 15) 0 gm PO ONCE PRN; Protocol PRN Reason: Hypoglycemia Protocol Diazepam (Valium) 10 mg PO BID PRN PRN Reason: Anxiety Furosemide (Lasix) 20 mg PO DAILY [facility] Gabapentin (Neurontin) 300 mg PO HS [facility] Last Admin: 07/07/18 22:30 Dose: 300 mg Glipizide (Glucotrol) 10 mg PO BID [facility] Glucagon (Glucagen Diagnostic Kit) 0 mg IM STAT PRN; Protocol PRN Reason: Hypoglycemia Protocol Home Med (Zolpidem [Ambien]) 10 mg PO PRN PRN PRN Reason: Insomnia Ceftriaxone Sodium (Rocephin Iv 1 Gm Duplex) 50 mls @ 200 mls/hr IVPB ONCE ONE; Protocol Stop: 07/08/18 09:14 Azithromycin (Zithromax 500mg In Ns Addvantage) 500 mg in 250 mls @ 167 mls/hr IVPB Q24H [facility]; Protocol Dextrose (Dextrose 5% In Water 1000 Ml) 1,000 mls @ 0 mls/hr IV .Q0M PRN; Protocol PRN Reason: Hypoglycemia Protocol Insulin Aspart (Novolog) 0 unit SC ACHS [facility]; Protocol Last Admin: 07/07/18 22:31 Dose: Not Given Levothyroxine Sodium (Synthroid) 100 mcg PO DAILY@0630 [facility] Last Admin: 07/08/18 06:00 Dose: 100 mcg Lisinopril (Zestril) 10 mg PO DAILY [facility] Metoprolol Tartrate (Lopressor) 50 mg PO BID [facility] Oxycodone/Acetaminophen (Percocet 5/325 Mg Tab) 1 tab PO Q6 PRN PRN Reason: Pain, Mild (1-3) Stop: 07/10/18 21:44 Last Admin: 07/07/18 22:37 Dose: 1 tab Pantoprazole Sodium (Protonix Ec Tab) 40 mg PO DAILY [facility] Pneumococcal Polyvalent Vaccine (Pneumovax 23 Vaccine) 0.5 ml IM .ONCE ONE Stop: 07/09/18 10:01 Rivaroxaban (Xarelto) 20 mg PO DAILY [facility] Rosuvastatin Calcium (Crestor) 10 mg PO HS [facility] Last Admin: 07/07/18 22:30 Dose: 10 mg Saccharomyces Boulardii (Florastor) 250 mg PO Q12 [facility] Sitagliptin Phosphate (Januvia) 100 mg PO DAILY [facility] - Labs Labs: 07/07/18 15:40 07/07/18 15:40 - Constitutional Appears: No Acute Distress, Chronically Ill - Head Exam Head Exam: NORMAL INSPECTION, NORMOCEPHALIC - Eye Exam Eye Exam: EOMI, Normal appearance, PERRL - ENT Exam ENT Exam: Mucous Membranes Dry - Respiratory Exam Respiratory Exam: Clear to Ausculation Bilateral, NORMAL BREATHING PATTERN - Cardiovascular Exam Cardiovascular Exam: REGULAR RHYTHM, +S1, +S2 - GI/Abdominal Exam GI & Abdominal Exam: Soft, Normal Bowel Sounds. absent: Distended, Tenderness - Extremities Exam Extremities Exam: Normal Inspection. absent: Pedal Edema, Tenderness - Neurological Exam Neurological Exam: Alert, Awake, Oriented x3 - Psychiatric Exam Psychiatric exam: Normal Affect, Normal Mood - Skin Skin Exam: Dry, Intact, Normal Color, Warm Assessment and Plan - Assessment and Plan (Free Text) Plan: Pneumonia Pleural Effusion? Imaging: - CXR: Shallow lung volumes-limiting optimal evaluation. Left pleural effusion with probable concomitant mild compressive atelectasis here likely. Overall appearance is similar. Cardiomegaly and pulmonary venous congestion also suspect-pulmonary venous congestion accentuated due to the crowding as well. - Chest CT: ordered, pending results Management: - SIRS criteria, lactate normal, follow up procal - Azithromycin and Rocephin (started 07/07/18) - Pending BC UTI Management: - SIRS criteria, lactate normal, follow up procal - UA + with LE - Started Rocephin 1 gram daily - Pending UC and BC Diastolic Congestive Heart Failure - Last echo 2016 showed Grade III reversible restrictive diastolic dysfunction, EF 55% - Continue Lasix 20mg PO daily - Follow up BNP Hypertension - Continue Lisinopril 10mg PO daily - Continue Lopressor 50mg PO BID - Cardizem 120mg PO daily Diabetes Mellitus - Accuchecks, Insulin sliding scale- low, Hypoglycemia protocol - HgA1c 9.3 (01/2018) - Januvia 100mg PO daily, Glipizide 10mg PO BID - Gabapentin 300mg PO TID Fibromyalgia w/ severe back pain Imaging: - Cervical spinal MRI shows C5/C6 lateral herniation without any neurological deficits present; osteophyte formation and osteoporosis - Thoracic spinal MRI normal - Lumbar spine MRI L3-L4 right foraminal stenosis, degenerative changes Management: - Diazepam 5mg PO PRN - Flexeril 5mg PO TID - Percocet 5/325mg 1 tab Q6H Chronic Constipation 2/2 to opioid use - Continue with Colace - Senna PRN Adrenal Insufficiency - Hydrocortisone 20mg PO TID Hypothyroidism - Continue Synthroid 100mcg PO daily History of DVT/PE - Continue Xarelto 20mg PO daily Gout - Continue Colchicine Depression - Continue with Wellbutrin Prophylactic Measures - Protonix 40mg PO daily, Probiotics - Xarelto 20mg PO daily - PT/OT Case discussed with Dr. Gutierres, Florencia Alatorre DO, PGY2
[2018-07-08] MEDS: (Novolog) Insulin Aspart, Recombinant 100 u/ml 10 ml vial SC SCH ×4 (08:15→21:28)
[2018-07-08] MEDS ORDERED: cefTRIAXone IV 1 gm in Dextros 50 ML IVPB ONE (09:00)
[2018-07-08] MEDS: Pantoprazole 40 mg EC Tab PO SCH (09:23)
[2018-07-08] MEDS: diltiaZEM 120 mg/24 Hours CD Cap PO SCH (10:32)
[2018-07-08] MEDS: Saccharomyces Boulardi 250 mg Cap PO SCH ×2 (10:32→21:27)
[2018-07-08] MEDS: Azithromycin 500mg/250ML NS 500 MG/250 ML BAG IVPB SCH (10:34)
[2018-07-08 12:08] LABS: BASO % 0.4 % (0.0-2.0); HEMOGLOBIN 11.2 g/dL (11.0-16.0); LYMPH # 0.8 K/uL (1.0-4.3); LYMPH % 15.2 % (20.0-40.0); MEAN CELL VOLUME 77.6 fL (81.0-99.0); MEAN CORPUSCULAR HEMOGLOBIN 23.5 pg (27.0-31.0); MEAN CORPUSCULAR HGB CONC 30.3 g/dL (33.0-37.0); MEAN PLATELET VOLUME 8.5 fL (7.2-11.7); MONO # 0.5 K/uL (0.0-0.8); MONO % 9.5 % (0.0-10.0); NEUT # 4.1 K/uL (1.8-7.0); NEUT % 74.9 % (50.0-75.0); NRBC % 0.2 % (0.0-2.0); RBC 4.78 Mil/uL (3.80-5.20); RED CELL DISTRIBUTION WIDTH 17.9 % (11.5-14.5); WHITE BLOOD COUNT 5.5 K/uL (4.8-10.8)
[2018-07-08 12:39] LABS: ALB/GLOB RATIO 1.3 (1.0-2.1); ALBUMIN 3.1 g/dL (3.5-5.0); ALT/SGPT 37 U/L (9-52); AST/SGOT 25 U/L (14-36); B-TYPE NATRIURETIC PEPTIDE 602 pg/mL (0-900); BLOOD UREA NITROGEN 33 mg/dL (7-17); CALCIUM 8.5 mg/dl (8.6-10.4); GFR NON-AFRICAN AMERICAN > 60
--- NOTE | 2018-07-08 15:25 | CT ---
Date of service: 07/08/2018 PROCEDURE: CT Chest without contrast HISTORY: PNA versus effusion COMPARISON: None available. TECHNIQUE: Contiguous axial images were obtained through the chest without intravenous contrast enhancement. Sagittal and coronal reconstructions were performed. Radiation dose: Total exam DLP = 553.85 mGy-cm. This CT exam was performed using one or more of the following dose reduction techniques: Automated exposure control, adjustment of the mA and/or kV according to patient size, and/or use of iterative reconstruction technique. FINDINGS: LUNGS: Bibasilar subsegmental infiltrates involving the lower lobes and right middle lobe. MEDIASTINUM: Unremarkable thoracic aorta. No aneurysm. Normal sized heart. Main pulmonary artery unremarkable. No vascular congestion. No lymphadenopathy. No aortic atherosclerotic calcification. PLEURA: No pleural fluid. No pneumothorax. BONES: No fracture. No destructive lesion. UPPER ABDOMEN: Status post cholecystectomy. OTHER FINDINGS: None. IMPRESSION: Bibasilar subsegmental infiltrates involving the lower lobes and right middle lobe.
[2018-07-08] MEDS: Oxycodone/Acetaminophen 5/325 mg Tab PO PRN (22:45)
[2018-07-09] MEDS: Albuterol-Ipratrop 3 mg / 0.5 (3 ml) UD IH SCH ×5 (00:20→19:32)
[2018-07-09] MEDS: Levothyroxine 100 MCG TAB PO SCH (05:39)
[2018-07-09] MEDS: (Novolog) Insulin Aspart, Recombinant 100 u/ml 10 ml vial SC SCH ×4 (08:02→21:44)
[2018-07-09] MEDS: Pantoprazole 40 mg EC Tab PO SCH (09:18)
[2018-07-09] MEDS: diltiaZEM 120 mg/24 Hours CD Cap PO SCH (09:19)
[2018-07-09] MEDS: Saccharomyces Boulardi 250 mg Cap PO SCH ×2 (09:21→21:45)
[2018-07-09] MEDS: Azithromycin 500mg/250ML NS 500 MG/250 ML BAG IVPB SCH (09:44)
[2018-07-09 11:17] LABS: STREP PNEUMONIAE NEGATIVE (NEGATIVE)
[2018-07-09] MEDS: Oxycodone/Acetaminophen 5/325 mg Tab PO PRN (13:05)
[2018-07-10] MEDS: Albuterol-Ipratrop 3 mg / 0.5 (3 ml) UD IH SCH ×6 (00:56→20:01)
[2018-07-10] MEDS: Levothyroxine 100 MCG TAB PO SCH (05:50)
[2018-07-10] MEDS: (Novolog) Insulin Aspart, Recombinant 100 u/ml 10 ml vial SC SCH ×4 (07:45→21:52)
[2018-07-10] MEDS ORDERED: Pneumococcal 23-Valent Vaccine IM ONE (10:00)
[2018-07-10] MEDS: Saccharomyces Boulardi 250 mg Cap PO SCH ×2 (10:11→21:49)
[2018-07-10] MEDS: Pantoprazole 40 mg EC Tab PO SCH (10:12)
[2018-07-10] MEDS: Azithromycin 500mg/250ML NS 500 MG/250 ML BAG IVPB SCH (10:13)
[2018-07-10] MEDS: Docusate-Senna 50 mg-8.6 mg Tab PO PRN (10:15)
[2018-07-10] MEDS: diltiaZEM 120 mg/24 Hours CD Cap PO SCH ×2 (10:21→13:28)
--- NOTE | 2018-07-10 13:09 | CARD ---
APPROVED REPORT Date of service: 07/07/2018 EKG Measurement Heart [id number] OR [id number] <Conclusion> Sinus rhythm with premature atrial complexes Otherwise normal ECG
[2018-07-10] MEDS: Oxycodone/Acetaminophen 5/325 mg Tab PO PRN (17:25)
[2018-07-11] MEDS: Albuterol-Ipratrop 3 mg / 0.5 (3 ml) UD IH SCH ×6 (02:39→20:20)
[2018-07-11] MEDS: Levothyroxine 100 MCG TAB PO SCH (05:40)
--- NOTE | 2018-07-11 08:04 | CP.PCM.PN ---
Subjective - Date & Time of Evaluation Date of Evaluation: 07/11/18 Time of Evaluation: 07:56 - Subjective Subjective: Progress note for Dr. Gutierres Patient was seen and examined at bedside in no acute distress. Patient reports feeling "a little bit better" today. She says her breathing and coughing have improved. No acute events overnight. Objective - Vital Signs/Intake and Output Vital Signs (last 24 hours): Temp Pulse Resp BP Pulse Ox 97.7 F 107 H 20 127/82 97 07/10/18 23:45 07/10/18 23:45 07/10/18 23:45 07/10/18 23:45 07/10/18 23:45 Intake and Output: 07/11/18 07/11/18 06:59 18:59 Intake Total 300 Output Total 600 Balance -300 - Medications Medications: Current Medications Albuterol/Ipratropium (Duoneb 3 Mg/0.5 Mg (3 Ml) Ud) 3 ml IH Q4 [facility] Last Admin: 07/11/18 07:34 Dose: Not Given Bupropion HCl (Wellbutrin) 75 mg PO DAILY [facility] Last Admin: 07/10/18 10:14 Dose: 75 mg Colchicine (Colocrys) 0.6 mg PO BID [facility] Last Admin: 07/10/18 17:27 Dose: 0.6 mg Cyclobenzaprine HCl (Flexeril) 5 mg PO TID [facility] Last Admin: 07/10/18 17:27 Dose: 5 mg Dextrose (Dextrose 50% Inj) 0 ml IV STAT PRN; Protocol PRN Reason: Hypoglycemia Protocol Dextrose (Glutose 15) 0 gm PO ONCE PRN; Protocol PRN Reason: Hypoglycemia Protocol Diazepam (Valium) 10 mg PO BID PRN PRN Reason: Anxiety Diltiazem HCl (Cardizem Cd) 120 mg PO DAILY [facility] Last Admin: 07/10/18 13:28 Dose: 120 mg Docusate Sodium (Colace) 100 mg PO BID [facility] Last Admin: 07/10/18 17:27 Dose: 100 mg Furosemide (Lasix) 20 mg PO DAILY [facility] Last Admin: 07/10/18 10:11 Dose: 20 mg Gabapentin (Neurontin) 300 mg PO HS [facility] Last Admin: 07/10/18 21:50 Dose: 300 mg Glipizide (Glucotrol) 10 mg PO BID [facility] Last Admin: 07/10/18 17:27 Dose: 10 mg Glucagon (Glucagen Diagnostic Kit) 0 mg IM STAT PRN; Protocol PRN Reason: Hypoglycemia Protocol Hydrocortisone (Cortef) 20 mg PO TID [facility] Last Admin: 07/10/18 17:27 Dose: 20 mg Azithromycin (Zithromax 500mg In Ns Addvantage) 500 mg in 250 mls @ 167 mls/hr IVPB Q24H [facility]; Protocol Last Admin: 07/10/18 10:13 Dose: 167 mls/hr Dextrose (Dextrose 5% In Water 1000 Ml) 1,000 mls @ 0 mls/hr IV .Q0M PRN; Protocol PRN Reason: Hypoglycemia Protocol Insulin Aspart (Novolog) 0 unit SC ACHS [facility]; Protocol Last Admin: 07/10/18 21:52 Dose: Not Given Levothyroxine Sodium (Synthroid) 100 mcg PO DAILY@0630 [facility] Last Admin: 07/11/18 05:40 Dose: 100 mcg Lisinopril (Zestril) 10 mg PO DAILY [facility] Last Admin: 07/10/18 10:12 Dose: 10 mg Metoprolol Tartrate (Lopressor) 50 mg PO BID [facility] Last Admin: 07/10/18 17:27 Dose: 50 mg Pantoprazole Sodium (Protonix Ec Tab) 40 mg PO DAILY [facility] Last Admin: 07/10/18 10:12 Dose: 40 mg Rivaroxaban (Xarelto) 20 mg PO DAILY [facility] Last Admin: 07/10/18 10:14 Dose: 20 mg Rosuvastatin Calcium (Crestor) 10 mg PO HS [facility] Last Admin: 07/10/18 21:50 Dose: 10 mg Saccharomyces Boulardii (Florastor) 250 mg PO Q12 [facility] Last Admin: 07/10/18 21:49 Dose: 250 mg Senna/Docusate Sodium (Senokot S 50 Mg-8.6 Mg) 1 tab PO QPM PRN PRN Reason: Constipation Last Admin: 07/10/18 10:15 Dose: 1 tab Sitagliptin Phosphate (Januvia) 100 mg PO DAILY [facility] Last Admin: 07/10/18 10:20 Dose: 100 mg Zolpidem Tartrate (Ambien) 5 mg PO PRN PRN PRN Reason: Insomnia Last Admin: 07/10/18 21:50 Dose: 5 mg - Labs Labs: 07/08/18 11:53 07/08/18 11:53 - Constitutional Appears: No Acute Distress - Head Exam Head Exam: NORMAL INSPECTION - Eye Exam Eye Exam: EOMI, Normal appearance - ENT Exam ENT Exam: Mucous Membranes Moist - Respiratory Exam Respiratory Exam: Decreased Breath Sounds, Rales (b/l). absent: Wheezes, Respiratory Distress - Cardiovascular Exam Cardiovascular Exam: Tachycardia, +S1, +S2 - GI/Abdominal Exam GI & Abdominal Exam: Soft, Normal Bowel Sounds. absent: Distended, Firm, Guarding, Tenderness - Extremities Exam Extremities Exam: Normal Inspection. absent: Pedal Edema, Tenderness - Neurological Exam Neurological Exam: Alert, Awake - Psychiatric Exam Psychiatric exam: Normal Affect, Normal Mood - Skin Skin Exam: Dry, Normal Color, Warm Assessment and Plan - Assessment and Plan (Free Text) Plan: Pneumonia - CXR: Shallow lung volumes-limiting optimal evaluation. Left pleural effusion with probable concomitant mild compressive atelectasis here likely. Overall appearance is similar. Cardiomegaly and pulmonary venous congestion also suspect-pulmonary venous congestion accentuated due to the crowding as well. - Chest CT(07/08/18): bibasilar subsegmental infiltrates involving lower lobes and right middle lobe Management: - SIRS criteria, lactate normal, procal 0.12 (low) - Azithromycin and Rocephin (started 07/07/18) - Blood cx (07/07/18): no growth to date UTI - SIRS criteria, lactate normal, procal 0.12 (low) - UA + with LE - Rocephin 1 gram daily - Blood cx (07/07/18): no growth to date - Urine cx (07/07/18): + e.coli Diastolic Congestive Heart Failure - Last echo 2017 showed Grade III reversible restrictive diastolic dysfunction, EF 55% - Continue Lasix 20mg PO daily - BNP: 602 Hypertension - Continue Lisinopril 10mg PO daily - Continue Lopressor 50mg PO BID - Continue Cardizem 120mg PO daily Diabetes Mellitus - Accuchecks, Insulin sliding scale- low, Hypoglycemia protocol - HgA1c 9.3 (01/2018) - Januvia 100mg PO daily, Glipizide 10mg PO BID - Gabapentin 300mg PO TID Fibromyalgia w/ severe back pain - Cervical spinal MRI shows C5/C6 lateral herniation without any neurological deficits present; osteophyte formation and osteoporosis - Thoracic spinal MRI normal - Lumbar spine MRI L3-L4 right foraminal stenosis, degenerative changes Management: - Diazepam 5mg PO PRN - Flexeril 5mg PO TID - Percocet 5/325mg 1 tab Q6H Chronic Constipation 2/2 to opioid use - Continue with Colace - Senna PRN Adrenal Insufficiency - Hydrocortisone 20mg PO TID Hypothyroidism - Continue Synthroid 100mcg PO daily History of DVT/PE - Continue Xarelto 20mg PO daily Gout - Continue Colchicine Depression - Continue with Wellbutrin Prophylactic Measures - Protonix 40mg PO daily, Probiotics - Xarelto 20mg PO daily - PT/OT Case discussed with Dr. Gutierres, [place] Preston, PGY2
[2018-07-11] MEDS: (Novolog) Insulin Aspart, Recombinant 100 u/ml 10 ml vial SC SCH ×5 (08:20→22:05)
--- NOTE | 2018-07-11 09:24 | HP ---
HISTORY OF PRESENT ILLNESS: Mrs. Llanes was admitted to the hospital with a chief complaint of weakness, fatigue, tiredness, shortness of breath, and cough. The patient came to the ER, advised admission, admitted for pneumonia. The patient has history of asthma, COPD, arthritis, spinal stenosis, and diabetes. PHYSICAL EXAMINATION: GENERAL: The patient is awake, alert, oriented to time and place. VITAL SIGNS: Temperature 98, pulse 96. HEENT: Within normal limits. NECK: Supple. CHEST: Symmetrical. Decreased air entry. HEART: Regular. ABDOMEN: Soft. EXTREMITIES: 1+ edema. ASSESSMENT AND PLAN: The patient suffers from pneumonia, diabetes, hypertension, and respiratory failure. The patient is to get bedrest, supportive care, bronchodilators, antibiotics. Angel Gutierres MD
[2018-07-11] MEDS: Saccharomyces Boulardi 250 mg Cap PO SCH ×2 (11:01→21:23)
[2018-07-11] MEDS: diltiaZEM 120 mg/24 Hours CD Cap PO SCH (11:03)
[2018-07-11] MEDS: Pantoprazole 40 mg EC Tab PO SCH (11:03)
[2018-07-11] MEDS: Azithromycin 500mg/250ML NS 500 MG/250 ML BAG IVPB SCH (11:29)
[2018-07-11 11:31] LABS: HEMOGLOBIN 11.3 g/dL (11.0-16.0)
[2018-07-11 11:44] LABS: BASO # 0.1 K/uL (0.0-0.2); BASO % 0.7 % (0.0-2.0); EOS % 0.2 % (0.0-4.0); LYMPH # 1.2 K/uL (1.0-4.3); LYMPH % 11.1 % (20.0-40.0); MEAN CORPUSCULAR HEMOGLOBIN 23.3 pg (27.0-31.0); MEAN CORPUSCULAR HGB CONC 30.6 g/dL (33.0-37.0); MONO # 1.1 K/uL (0.0-0.8); MONO % 10.3 % (0.0-10.0); NEUT # 8.3 K/uL (1.8-7.0); NEUT % 77.7 % (50.0-75.0); NRBC % 0.3 % (0.0-2.0); RBC 4.85 Mil/uL (3.80-5.20); RED CELL DISTRIBUTION WIDTH 17.2 % (11.5-14.5)
[2018-07-11 11:51] LABS: WHITE BLOOD COUNT 10.7 K/uL (4.8-10.8)
[2018-07-11 12:08] LABS: ALB/GLOB RATIO 1.2 (1.0-2.1); ALBUMIN 3.2 g/dL (3.5-5.0); CALCIUM 7.9 mg/dl (8.6-10.4)
[2018-07-11] MEDS: Oxycodone/Acetaminophen 5/325 mg Tab PO PRN (21:00)
[2018-07-12] MEDS: Levothyroxine 100 MCG TAB PO SCH (05:40)
[2018-07-12] MEDS: (Novolog) Insulin Aspart, Recombinant 100 u/ml 10 ml vial SC SCH ×5 (08:03→21:35)
[2018-07-12] MEDS: Albuterol-Ipratrop 3 mg / 0.5 (3 ml) UD IH SCH ×4 (08:12→20:13)
--- NOTE | 2018-07-12 09:43 | CP.PCM.PN ---
Subjective - Date & Time of Evaluation Date of Evaluation: 07/12/18 Time of Evaluation: 11:30 - Subjective Subjective: Medicine Note for Dr. Gutierres Patient seen and examined at bedside. Patient reports her breathing has improved . ROS unremarkable otherwise. Objective - Vital Signs/Intake and Output Vital Signs (last 24 hours): Temp Pulse Resp BP Pulse Ox 97.4 F L 98 H 20 138/89 96 07/12/18 07:45 07/12/18 07:45 07/12/18 07:45 07/12/18 07:45 07/12/18 07:45 Intake and Output: 07/12/18 07/12/18 06:59 18:59 Intake Total 700 Output Total 1800 Balance -1100 - Medications Medications: Current Medications Albuterol/Ipratropium (Duoneb 3 Mg/0.5 Mg (3 Ml) Ud) 3 ml IH Q4 [facility] Last Admin: 07/12/18 08:12 Dose: 3 ml Bupropion HCl (Wellbutrin) 75 mg PO DAILY [facility] Last Admin: 07/11/18 11:05 Dose: 75 mg Colchicine (Colocrys) 0.6 mg PO BID [facility] Last Admin: 07/11/18 17:35 Dose: 0.6 mg Cyclobenzaprine HCl (Flexeril) 5 mg PO TID [facility] Last Admin: 07/11/18 17:35 Dose: 5 mg Dextrose (Dextrose 50% Inj) 0 ml IV STAT PRN; Protocol PRN Reason: Hypoglycemia Protocol Dextrose (Glutose 15) 0 gm PO ONCE PRN; Protocol PRN Reason: Hypoglycemia Protocol Diazepam (Valium) 10 mg PO BID PRN PRN Reason: Anxiety Last Admin: 07/11/18 15:29 Dose: 10 mg Diltiazem HCl (Cardizem Cd) 120 mg PO DAILY [facility] Last Admin: 07/11/18 11:03 Dose: 120 mg Docusate Sodium (Colace) 100 mg PO BID [facility] Last Admin: 07/11/18 17:35 Dose: 100 mg Furosemide (Lasix) 20 mg PO DAILY [facility] Last Admin: 07/11/18 11:02 Dose: 20 mg Gabapentin (Neurontin) 300 mg PO HS [facility] Last Admin: 07/11/18 21:22 Dose: 300 mg Glipizide (Glucotrol) 10 mg PO BID [facility] Last Admin: 07/11/18 17:35 Dose: 10 mg Glucagon (Glucagen Diagnostic Kit) 0 mg IM STAT PRN; Protocol PRN Reason: Hypoglycemia Protocol Hydrocortisone (Cortef) 20 mg PO TID [facility] Last Admin: 07/11/18 17:36 Dose: 20 mg Azithromycin (Zithromax 500mg In Ns Addvantage) 500 mg in 250 mls @ 167 mls/hr IVPB Q24H [facility]; Protocol Last Admin: 07/11/18 11:29 Dose: 167 mls/hr Dextrose (Dextrose 5% In Water 1000 Ml) 1,000 mls @ 0 mls/hr IV .Q0M PRN; Protocol PRN Reason: Hypoglycemia Protocol Ceftriaxone Sodium 1 gm/ (Sodium Chloride) 100 mls @ 100 mls/hr IVPB DAILY [facility]; Protocol Last Admin: 07/11/18 11:05 Dose: 100 mls/hr Insulin Aspart (Novolog) 0 unit SC ACHS [facility]; Protocol Last Admin: 07/12/18 08:26 Dose: 8 units Levothyroxine Sodium (Synthroid) 100 mcg PO DAILY@0630 [facility] Last Admin: 07/12/18 05:40 Dose: 100 mcg Lisinopril (Zestril) 10 mg PO DAILY [facility] Last Admin: 07/11/18 11:02 Dose: 10 mg Metoprolol Tartrate (Lopressor) 50 mg PO BID [facility] Last Admin: 07/11/18 17:35 Dose: 50 mg Oxycodone/Acetaminophen (Percocet 5/325 Mg Tab) 1 tab PO Q6H PRN PRN Reason: Pain, Mild (1-3) Stop: 07/14/18 20:49 Last Admin: 07/11/18 21:00 Dose: 1 tab Pantoprazole Sodium (Protonix Ec Tab) 40 mg PO DAILY [facility] Last Admin: 07/11/18 11:03 Dose: 40 mg Rivaroxaban (Xarelto) 20 mg PO DAILY [facility] Last Admin: 07/11/18 11:07 Dose: 20 mg Rosuvastatin Calcium (Crestor) 10 mg PO HS [facility] Last Admin: 07/11/18 21:22 Dose: 10 mg Saccharomyces Boulardii (Florastor) 250 mg PO Q12 [facility] Last Admin: 07/11/18 21:23 Dose: 250 mg Senna/Docusate Sodium (Senokot S 50 Mg-8.6 Mg) 1 tab PO QPM PRN PRN Reason: Constipation Last Admin: 07/10/18 10:15 Dose: 1 tab Sitagliptin Phosphate (Januvia) 100 mg PO DAILY [facility] Last Admin: 07/11/18 11:02 Dose: 100 mg Zolpidem Tartrate (Ambien) 5 mg PO PRN PRN PRN Reason: Insomnia Last Admin: 07/11/18 22:50 Dose: 5 mg - Labs Labs: 07/11/18 11:07 07/11/18 11:07 - Additional Findings Additional findings: - Constitutional Appears: No Acute Distress - Head Exam Head Exam: NORMAL INSPECTION - Eye Exam Eye Exam: EOMI, Normal appearance - ENT Exam ENT Exam: Mucous Membranes Moist - Respiratory Exam Respiratory Exam: Decreased Breath Sounds, Rales (b/l). absent: Wheezes, Respiratory Distress - Cardiovascular Exam Cardiovascular Exam: Tachycardia, +S1, +S2 - GI/Abdominal Exam GI & Abdominal Exam: Soft, Normal Bowel Sounds. absent: Distended, Firm, Guarding, Tenderness - Extremities Exam Extremities Exam: Normal Inspection. absent: Pedal Edema, Tenderness - Neurological Exam Neurological Exam: Alert, Awake - Psychiatric Exam Psychiatric exam: Normal Affect, Normal Mood - Skin Skin Exam: Dry, Normal Color, Warm Assessment and Plan - Assessment and Plan (Free Text) Plan: Pneumonia - CXR: Shallow lung volumes-limiting optimal evaluation. Left pleural effusion with probable concomitant mild compressive atelectasis here likely. Overall appearance is similar. Cardiomegaly and pulmonary venous congestion also suspect-pulmonary venous congestion accentuated due to the crowding as well. - Chest CT(07/08/18): bibasilar subsegmental infiltrates involving lower lobes and right middle lobe Management: - SIRS criteria, lactate normal, procal 0.12 (low) - Azithromycin and Rocephin (started 07/07/18) - Blood cx (07/07/18): no growth to date UTI - SIRS criteria, lactate normal, procal 0.12 (low) - UA + with LE - Rocephin 1 gram daily - Blood cx (07/07/18): no growth to date - Urine cx (07/07/18): + e.coli Diastolic Congestive Heart Failure - Last echo 2017 showed Grade III reversible restrictive diastolic dysfunction, EF 55% - Continue Lasix 20mg PO daily - BNP: 602 Hypertension - Continue Lisinopril 10mg PO daily - Continue Lopressor 50mg PO BID - Continue Cardizem 120mg PO daily Diabetes Mellitus - Accuchecks, Insulin sliding scale- low, Hypoglycemia protocol - HgA1c 9.3 (01/2018) - Januvia 100mg PO daily, Glipizide 10mg PO BID - Gabapentin 300mg PO TID Fibromyalgia w/ severe back pain - Cervical spinal MRI shows C5/C6 lateral herniation without any neurological deficits present; osteophyte formation and osteoporosis - Thoracic spinal MRI normal - Lumbar spine MRI L3-L4 right foraminal stenosis, degenerative changes Management: - Diazepam 5mg PO PRN - Flexeril 5mg PO TID - Percocet 5/325mg 1 tab Q6H Chronic Constipation 2/2 to opioid use - Continue with Colace - Senna PRN Adrenal Insufficiency - Hydrocortisone 20mg PO TID Hypothyroidism - Continue Synthroid 100mcg PO daily History of DVT/PE - Continue Xarelto 20mg PO daily Gout - Continue Colchicine Depression - Continue with Wellbutrin Prophylactic Measures - Protonix 40mg PO daily, Probiotics - Xarelto 20mg PO daily - PT/OT - recommend ALONDRA Disposition: Patient states she is amendable to ALONDRA, pending ALONDRA approval. If patient refuses ALONDRA, will be discharged home with home services. Case discussed with Dr. Gutierres, Florencia Alatorre DO, PGY2
[2018-07-12] MEDS: Saccharomyces Boulardi 250 mg Cap PO SCH ×2 (09:44→21:34)
[2018-07-12] MEDS: diltiaZEM 120 mg/24 Hours CD Cap PO SCH (09:44)
[2018-07-12] MEDS: Pantoprazole 40 mg EC Tab PO SCH (09:45)
[2018-07-12] MEDS: Azithromycin 500mg/250ML NS 500 MG/250 ML BAG IVPB SCH (10:38)
[2018-07-12] MEDS: Oxycodone/Acetaminophen 5/325 mg Tab PO PRN ×2 (17:29→23:54)
[2018-07-13] MEDS: Levothyroxine 100 MCG TAB PO SCH (06:02)
--- NOTE | 2018-07-13 07:23 | CP.PCM.PN ---
Subjective - Date & Time of Evaluation Date of Evaluation: 07/13/18 Time of Evaluation: 07:20 - Subjective Subjective: Medicine Note for Dr. Gutierres Patient seen and examined at bedside. Patient reports her breathing has improved . ROS unremarkable otherwise. Objective - Vital Signs/Intake and Output Vital Signs (last 24 hours): Temp Pulse Resp BP Pulse Ox 97.8 F 112 H 20 128/85 96 07/13/18 00:00 07/13/18 00:00 07/13/18 00:00 07/13/18 00:00 07/13/18 00:00 - Medications Medications: Current Medications Albuterol/Ipratropium (Duoneb 3 Mg/0.5 Mg (3 Ml) Ud) 3 ml IH Q4 [facility] Last Admin: 07/12/18 20:13 Dose: 3 ml Bupropion HCl (Wellbutrin) 75 mg PO DAILY [facility] Last Admin: 07/12/18 09:45 Dose: 75 mg Colchicine (Colocrys) 0.6 mg PO BID [facility] Last Admin: 07/12/18 17:18 Dose: 0.6 mg Cyclobenzaprine HCl (Flexeril) 5 mg PO TID [facility] Last Admin: 07/12/18 17:18 Dose: 5 mg Dextrose (Dextrose 50% Inj) 0 ml IV STAT PRN; Protocol PRN Reason: Hypoglycemia Protocol Dextrose (Glutose 15) 0 gm PO ONCE PRN; Protocol PRN Reason: Hypoglycemia Protocol Diazepam (Valium) 10 mg PO BID PRN PRN Reason: Anxiety Last Admin: 07/11/18 15:29 Dose: 10 mg Diltiazem HCl (Cardizem Cd) 120 mg PO DAILY [facility] Last Admin: 07/12/18 09:44 Dose: 120 mg Docusate Sodium (Colace) 100 mg PO BID [facility] Last Admin: 07/12/18 17:22 Dose: Not Given Furosemide (Lasix) 20 mg PO DAILY [facility] Last Admin: 07/12/18 09:45 Dose: 20 mg Gabapentin (Neurontin) 300 mg PO HS [facility] Last Admin: 07/12/18 21:34 Dose: 300 mg Glipizide (Glucotrol) 10 mg PO BID [facility] Last Admin: 07/12/18 17:18 Dose: 10 mg Glucagon (Glucagen Diagnostic Kit) 0 mg IM STAT PRN; Protocol PRN Reason: Hypoglycemia Protocol Hydrocortisone (Cortef) 20 mg PO TID [facility] Last Admin: 07/12/18 17:19 Dose: 20 mg Azithromycin (Zithromax 500mg In Ns Addvantage) 500 mg in 250 mls @ 167 mls/hr IVPB Q24H [facility]; Protocol Last Admin: 07/12/18 10:38 Dose: 167 mls/hr Dextrose (Dextrose 5% In Water 1000 Ml) 1,000 mls @ 0 mls/hr IV .Q0M PRN; Protocol PRN Reason: Hypoglycemia Protocol Ceftriaxone Sodium 1 gm/ (Sodium Chloride) 100 mls @ 100 mls/hr IVPB DAILY [facility]; Protocol Last Admin: 07/12/18 09:34 Dose: 100 mls/hr Insulin Aspart (Novolog) 0 unit SC ACHS [facility]; Protocol Last Admin: 07/12/18 21:35 Dose: Not Given Levothyroxine Sodium (Synthroid) 100 mcg PO DAILY@0630 [facility] Last Admin: 07/13/18 06:02 Dose: 100 mcg Lisinopril (Zestril) 10 mg PO DAILY [facility] Last Admin: 07/12/18 09:45 Dose: 10 mg Metoprolol Tartrate (Lopressor) 50 mg PO BID [facility] Last Admin: 07/12/18 17:19 Dose: 50 mg Oxycodone/Acetaminophen (Percocet 5/325 Mg Tab) 1 tab PO Q6H PRN PRN Reason: Pain, Mild (1-3) Stop: 07/14/18 20:49 Last Admin: 07/12/18 23:54 Dose: 1 tab Pantoprazole Sodium (Protonix Ec Tab) 40 mg PO DAILY [facility] Last Admin: 07/12/18 09:45 Dose: 40 mg Rivaroxaban (Xarelto) 20 mg PO DAILY [facility] Last Admin: 07/12/18 09:44 Dose: 20 mg Rosuvastatin Calcium (Crestor) 10 mg PO HS [facility] Last Admin: 07/12/18 21:34 Dose: 10 mg Saccharomyces Boulardii (Florastor) 250 mg PO Q12 [facility] Last Admin: 07/12/18 21:34 Dose: 250 mg Senna/Docusate Sodium (Senokot S 50 Mg-8.6 Mg) 1 tab PO QPM PRN PRN Reason: Constipation Last Admin: 07/10/18 10:15 Dose: 1 tab Sitagliptin Phosphate (Januvia) 100 mg PO DAILY [facility] Last Admin: 07/12/18 09:45 Dose: 100 mg Zolpidem Tartrate (Ambien) 5 mg PO PRN PRN PRN Reason: Insomnia Last Admin: 07/12/18 21:38 Dose: 5 mg - Labs Labs: 07/11/18 11:07 07/11/18 11:07 - Additional Findings Additional findings: - Constitutional Appears: No Acute Distress - Head Exam Head Exam: NORMAL INSPECTION - Eye Exam Eye Exam: EOMI, Normal appearance - ENT Exam ENT Exam: Mucous Membranes Moist - Respiratory Exam Respiratory Exam: Decreased Breath Sounds . absent: Wheezes, Rales, Respiratory Distress - Cardiovascular Exam Cardiovascular Exam: Tachycardia, +S1, +S2 - GI/Abdominal Exam GI & Abdominal Exam: Soft, Normal Bowel Sounds. absent: Distended, Firm, Guarding, Tenderness - Extremities Exam Extremities Exam: Normal Inspection. absent: Pedal Edema, Tenderness - Neurological Exam Neurological Exam: Alert, Awake - Psychiatric Exam Psychiatric exam: Normal Affect, Normal Mood - Skin Skin Exam: Dry, Normal Color, Warm Assessment and Plan - Assessment and Plan (Free Text) Plan: Pneumonia - CXR: Shallow lung volumes-limiting optimal evaluation. Left pleural effusion with probable concomitant mild compressive atelectasis here likely. Overall appearance is similar. Cardiomegaly and pulmonary venous congestion also suspect-pulmonary venous congestion accentuated due to the crowding as well. - Chest CT(07/08/18): bibasilar subsegmental infiltrates involving lower lobes and right middle lobe Management: - SIRS criteria, lactate normal, procal 0.12 (low) - Azithromycin and Rocephin (started 07/07/18) - Blood cx (07/07/18): no growth to date UTI - SIRS criteria, lactate normal, procal 0.12 (low) - UA + with LE - Rocephin 1 gram daily - Blood cx (07/07/18): no growth to date - Urine cx (07/07/18): + e.coli Diastolic Congestive Heart Failure - Last echo 2017 showed Grade III reversible restrictive diastolic dysfunction, EF 55% - Continue Lasix 20mg PO daily - BNP: 602 Hypertension - Continue Lisinopril 10mg PO daily - Continue Lopressor 50mg PO BID - Continue Cardizem 120mg PO daily Diabetes Mellitus - Accuchecks, Insulin sliding scale- low, Hypoglycemia protocol - HgA1c 9.3 (01/2018) - Januvia 100mg PO daily, Glipizide 10mg PO BID - Gabapentin 300mg PO TID Fibromyalgia w/ severe back pain - Cervical spinal MRI shows C5/C6 lateral herniation without any neurological deficits present; osteophyte formation and osteoporosis - Thoracic spinal MRI normal - Lumbar spine MRI L3-L4 right foraminal stenosis, degenerative changes Management: - Diazepam 5mg PO PRN - Flexeril 5mg PO TID - Percocet 5/325mg 1 tab Q6H Chronic Constipation 2/2 to opioid use - Continue with Colace - Senna PRN Adrenal Insufficiency - Hydrocortisone 20mg PO TID Hypothyroidism - Continue Synthroid 100mcg PO daily History of DVT/PE - Continue Xarelto 20mg PO daily Gout - Continue Colchicine Depression - Continue with Wellbutrin Prophylactic Measures - Protonix 40mg PO daily, Probiotics - Xarelto 20mg PO daily - PT/OT - recommend ALONDRA Disposition: Patient states she is amendable to ALONDRA, pending ALONDRA approval. If patient refuses ALONDRA, will be discharged home with home services. Case discussed with Dr. Gutierres, Florencia Alatorre DO, PGY2
[2018-07-13] MEDS: (Novolog) Insulin Aspart, Recombinant 100 u/ml 10 ml vial SC SCH ×4 (08:12→21:37)
[2018-07-13] MEDS: Albuterol-Ipratrop 3 mg / 0.5 (3 ml) UD IH SCH ×4 (08:57→20:57)
[2018-07-13] MEDS: Saccharomyces Boulardi 250 mg Cap PO SCH ×2 (10:10→21:36)
[2018-07-13] MEDS: Pantoprazole 40 mg EC Tab PO SCH (10:10)
[2018-07-13] MEDS: diltiaZEM 120 mg/24 Hours CD Cap PO SCH (10:12)
[2018-07-13] MEDS: Azithromycin 500mg/250ML NS 500 MG/250 ML BAG IVPB SCH (11:16)
[2018-07-13 11:53] LABS: HEMOGLOBIN 10.3 g/dL (11.0-16.0); MEAN CELL VOLUME 75.4 fL (81.0-99.0); MEAN CORPUSCULAR HGB CONC 30.5 g/dL (33.0-37.0); MEAN PLATELET VOLUME 8.5 fL (7.2-11.7); RBC 4.47 Mil/uL (3.80-5.20); RED CELL DISTRIBUTION WIDTH 16.8 % (11.5-14.5)
[2018-07-13 12:02] LABS: ALB/GLOB RATIO 1.2 (1.0-2.1); ALT/SGPT 43 U/L (9-52); AST/SGOT 23 U/L (14-36); BASO % 0.2 % (0.0-2.0); BLOOD UREA NITROGEN 46 mg/dL (7-17); CALCIUM 8.1 mg/dl (8.6-10.4); EOS % 0.3 % (0.0-4.0); GFR NON-AFRICAN AMERICAN 56; LYMPH % 10.5 % (20.0-40.0); MONO % 11.2 % (0.0-10.0); NEUT % 77.8 % (50.0-75.0); NRBC % 0.1 % (0.0-2.0)
[2018-07-13 12:03] LABS: LYMPH # 0.9 K/uL (1.0-4.3)
[2018-07-13] MEDS: Oxycodone/Acetaminophen 5/325 mg Tab PO PRN (18:49)
[2018-07-14] MEDS: Oxycodone/Acetaminophen 5/325 mg Tab PO PRN ×2 (00:47→18:44)
[2018-07-14] MEDS: Albuterol-Ipratrop 3 mg / 0.5 (3 ml) UD IH SCH ×6 (00:55→20:00)
[2018-07-14] MEDS: Levothyroxine 100 MCG TAB PO SCH (06:40)
[2018-07-14 07:48] LABS: BASO % 0.3 % (0.0-2.0); EOS % 0.1 % (0.0-4.0); HEMOGLOBIN 11.1 g/dL (11.0-16.0); LYMPH # 0.9 K/uL (1.0-4.3); LYMPH % 9.2 % (20.0-40.0); MEAN CELL VOLUME 75.2 fL (81.0-99.0); MEAN CORPUSCULAR HEMOGLOBIN 22.8 pg (27.0-31.0); MEAN CORPUSCULAR HGB CONC 30.3 g/dL (33.0-37.0); MONO # 0.9 K/uL (0.0-0.8); MONO % 9.1 % (0.0-10.0); NEUT # 7.8 K/uL (1.8-7.0); NEUT % 81.3 % (50.0-75.0); NRBC % 0.1 % (0.0-2.0); PLATELET COUNT 283 K/uL (130-400); RBC 4.86 Mil/uL (3.80-5.20); RED CELL DISTRIBUTION WIDTH 16.8 % (11.5-14.5); WHITE BLOOD COUNT 9.6 K/uL (4.8-10.8)
--- NOTE | 2018-07-14 07:48 | CP.PCM.PN ---
Subjective - Date & Time of Evaluation Date of Evaluation: 07/14/18 Time of Evaluation: 07:47 - Subjective Subjective: Progress note for Dr. Gutierres Patient was seen and examined at bedside in no acute distress. Patient reports feeling the same and denies having shortness of breath, cough, fevers, chills, headaches, chest pain, palpitations, abdominal pain, diarrhea, constipation, and dysuria. Objective - Vital Signs/Intake and Output Vital Signs (last 24 hours): Temp Pulse Resp BP Pulse Ox 97.8 F 94 H 20 146/79 96 07/13/18 23:35 07/13/18 23:35 07/13/18 23:35 07/13/18 23:35 07/13/18 23:35 Intake and Output: 07/14/18 07/14/18 06:59 18:59 Intake Total 400 Output Total 1100 Balance -700 - Medications Medications: Current Medications Albuterol/Ipratropium (Duoneb 3 Mg/0.5 Mg (3 Ml) Ud) 3 ml IH Q4 [facility] Last Admin: 07/14/18 04:02 Dose: 3 ml Bupropion HCl (Wellbutrin) 75 mg PO DAILY [facility] Last Admin: 07/13/18 10:12 Dose: 75 mg Colchicine (Colocrys) 0.6 mg PO BID [facility] Last Admin: 07/13/18 17:19 Dose: 0.6 mg Cyclobenzaprine HCl (Flexeril) 5 mg PO TID [facility] Last Admin: 07/13/18 17:19 Dose: 5 mg Dextrose (Dextrose 50% Inj) 0 ml IV STAT PRN; Protocol PRN Reason: Hypoglycemia Protocol Dextrose (Glutose 15) 0 gm PO ONCE PRN; Protocol PRN Reason: Hypoglycemia Protocol Diazepam (Valium) 10 mg PO BID PRN PRN Reason: Anxiety Last Admin: 07/14/18 06:40 Dose: 10 mg Diltiazem HCl (Cardizem Cd) 120 mg PO DAILY [facility] Last Admin: 07/13/18 10:12 Dose: 120 mg Docusate Sodium (Colace) 100 mg PO BID [facility] Last Admin: 07/13/18 21:36 Dose: Not Given Furosemide (Lasix) 20 mg PO DAILY [facility] Last Admin: 07/13/18 10:10 Dose: 20 mg Gabapentin (Neurontin) 300 mg PO HS [facility] Last Admin: 07/13/18 21:36 Dose: 300 mg Glipizide (Glucotrol) 10 mg PO BID [facility] Last Admin: 07/13/18 17:19 Dose: 10 mg Glucagon (Glucagen Diagnostic Kit) 0 mg IM STAT PRN; Protocol PRN Reason: Hypoglycemia Protocol Hydrocortisone (Cortef) 20 mg PO TID [facility] Last Admin: 07/13/18 17:19 Dose: 20 mg Azithromycin (Zithromax 500mg In Ns Addvantage) 500 mg in 250 mls @ 167 mls/hr IVPB Q24H [facility]; Protocol Stop: 07/14/18 09:00 Last Admin: 07/13/18 11:16 Dose: 167 mls/hr Dextrose (Dextrose 5% In Water 1000 Ml) 1,000 mls @ 0 mls/hr IV .Q0M PRN; Protocol PRN Reason: Hypoglycemia Protocol Ceftriaxone Sodium 1 gm/ (Sodium Chloride) 100 mls @ 100 mls/hr IVPB DAILY [facility]; Protocol Stop: 07/14/18 09:00 Last Admin: 07/13/18 10:11 Dose: 100 mls/hr Insulin Aspart (Novolog) 0 unit SC ACHS [facility]; Protocol Last Admin: 07/13/18 21:37 Dose: Not Given Levothyroxine Sodium (Synthroid) 100 mcg PO DAILY@0630 [facility] Last Admin: 07/14/18 06:40 Dose: 100 mcg Lisinopril (Zestril) 10 mg PO DAILY [facility] Last Admin: 07/13/18 10:11 Dose: 10 mg Metoprolol Tartrate (Lopressor) 50 mg PO BID [facility] Last Admin: 07/13/18 17:19 Dose: 50 mg Oxycodone/Acetaminophen (Percocet 5/325 Mg Tab) 1 tab PO Q6H PRN PRN Reason: Pain, Mild (1-3) Stop: 07/14/18 20:49 Last Admin: 07/14/18 00:47 Dose: 1 tab Pantoprazole Sodium (Protonix Ec Tab) 40 mg PO DAILY [facility] Last Admin: 07/13/18 10:10 Dose: 40 mg Rivaroxaban (Xarelto) 20 mg PO DAILY [facility] Last Admin: 07/13/18 10:11 Dose: 20 mg Rosuvastatin Calcium (Crestor) 10 mg PO HS [facility] Last Admin: 07/13/18 21:35 Dose: 10 mg Saccharomyces Boulardii (Florastor) 250 mg PO Q12 [facility] Last Admin: 07/13/18 21:36 Dose: 250 mg Senna/Docusate Sodium (Senokot S 50 Mg-8.6 Mg) 1 tab PO QPM PRN PRN Reason: Constipation Last Admin: 07/10/18 10:15 Dose: 1 tab Sitagliptin Phosphate (Januvia) 100 mg PO DAILY [facility] Last Admin: 07/13/18 10:10 Dose: 100 mg Zolpidem Tartrate (Ambien) 5 mg PO PRN PRN PRN Reason: Insomnia Last Admin: 07/13/18 21:37 Dose: 5 mg - Labs Labs: 07/13/18 11:32 07/13/18 11:32 - Additional Findings Additional findings: - Constitutional Appears: No Acute Distress - Head Exam Head Exam: NORMAL INSPECTION - Eye Exam Eye Exam: EOMI, Normal appearance - ENT Exam ENT Exam: Mucous Membranes Moist - Respiratory Exam Respiratory Exam: Decreased Breath Sounds, Rales (b/l). absent: Wheezes, Respiratory Distress - Cardiovascular Exam Cardiovascular Exam: Tachycardia, +S1, +S2 - GI/Abdominal Exam GI & Abdominal Exam: Soft, Normal Bowel Sounds. absent: Distended, Firm, Guarding, Tenderness - Extremities Exam Extremities Exam: Normal Inspection. absent: Pedal Edema, Tenderness - Neurological Exam Neurological Exam: Alert, Awake - Psychiatric Exam Psychiatric exam: Normal Affect, Normal Mood - Skin Skin Exam: Dry, Normal Color, Warm Assessment and Plan - Assessment and Plan (Free Text) Plan: Pneumonia - CXR: Shallow lung volumes-limiting optimal evaluation. Left pleural effusion with probable concomitant mild compressive atelectasis here likely. Overall appearance is similar. Cardiomegaly and pulmonary venous congestion also suspect-pulmonary venous congestion accentuated due to the crowding as well. - Chest CT(07/08/18): bibasilar subsegmental infiltrates involving lower lobes and right middle lobe Management: - SIRS criteria, lactate normal, procal 0.12 (low) - Azithromycin and Rocephin (started 07/07/18, last dose given on 07/14/18) - Blood cx (07/07/18): no growth to date UTI - SIRS criteria, lactate normal, procal 0.12 (low) - UA + with LE - Rocephin 1 gram daily (completed 7 day course; last dose given on 07/14/18) - Blood cx (07/07/18): no growth to date - Urine cx (07/07/18): + e.coli Diastolic Congestive Heart Failure - Last echo 2016 showed Grade III reversible restrictive diastolic dysfunction, EF 55% - Continue Lasix 20mg PO daily - BNP: 602 Hypertension - Continue Lisinopril 10mg PO daily - Continue Lopressor 50mg PO BID - Continue Cardizem 120mg PO daily Diabetes Mellitus - Accuchecks, Insulin sliding scale- high, Hypoglycemia protocol - HgA1c 9.3 (01/2018) - Januvia 100mg PO daily, Glipizide 10mg PO BID - Added Lantus 10units HS - Gabapentin 300mg PO TID Fibromyalgia w/ severe back pain - Cervical spinal MRI shows C5/C6 lateral herniation without any neurological deficits present; osteophyte formation and osteoporosis - Thoracic spinal MRI normal - Lumbar spine MRI L3-L4 right foraminal stenosis, degenerative changes Management: - Diazepam 5mg PO PRN - Flexeril 5mg PO TID - Percocet 5/325mg 1 tab Q6H Chronic Constipation 2/2 to opioid use - Continue with Colace - Senna PRN Adrenal Insufficiency - Hydrocortisone 20mg PO BID (decreased from TID due to elevated glucose) Hypothyroidism - Continue Synthroid 100mcg PO daily History of DVT/PE - Continue Xarelto 20mg PO daily Gout - Continue Colchicine Depression - Continue with Wellbutrin Prophylactic Measures - Protonix 40mg PO daily, Probiotics - Xarelto 20mg PO daily - PT/OT - recommend ALONDRA Disposition: Pending ALONDRA approval. If patient refuses ALONDRA, will be discharged home with home services. Case discussed and patient seen with Dr. Nenita Preston
[2018-07-14] MEDS: (Novolog) Insulin Aspart, Recombinant 100 u/ml 10 ml vial SC SCH ×4 (08:03→21:39)
[2018-07-14 08:07] LABS: ALB/GLOB RATIO 1.3 (1.0-2.1); ALBUMIN 3.2 g/dL (3.5-5.0); ALT/SGPT 53 U/L (9-52); AST/SGOT 35 U/L (14-36); BLOOD UREA NITROGEN 52 mg/dL (7-17); CALCIUM 8.1 mg/dl (8.6-10.4); GFR NON-AFRICAN AMERICAN > 60
[2018-07-14] MEDS: Docusate-Senna 50 mg-8.6 mg Tab PO PRN (09:45)
[2018-07-14] MEDS: Pantoprazole 40 mg EC Tab PO SCH (09:45)
[2018-07-14] MEDS: Saccharomyces Boulardi 250 mg Cap PO SCH ×2 (09:45→21:45)
[2018-07-14] MEDS: diltiaZEM 120 mg/24 Hours CD Cap PO SCH (09:46)
[2018-07-14 09:51] LABS: LYMPHOCYTE 11 % (20-40); MONOCYTE 7 % (0-10); MYELOCYTE 1 % (0-0); NEUTROPHIL 81 % (50-75); PLATELET ESTIMATE NORMAL (NORMAL); TOTAL CELLS COUNTED 100
[2018-07-14 09:52] LABS: ANISOCYTOSIS SLIGHT; HYPOCHROMIC SLIGHT; MICROCYTOSIS SLIGHT; OVALOCYTES SLIGHT; POIKILOCYTOSIS SLIGHT; TEARDROP CELLS SLIGHT
[2018-07-14 09:53] LABS: TARGET CELLS SLIGHT
[2018-07-14] MEDS ORDERED: (Lantus) Insulin Glargine, Recombinant SC SCH (22:00)
[2018-07-14] MEDS ORDERED: Oxycodone/Acetaminophen 5/325 mg Tab PO PRN (23:33)
[2018-07-15] MEDS: Albuterol-Ipratrop 3 mg / 0.5 (3 ml) UD IH SCH ×3 (01:20→09:55)
[2018-07-15] MEDS: Levothyroxine 100 MCG TAB PO SCH (05:30)
--- NOTE | 2018-07-15 07:23 | CP.PCM.PN ---
Subjective - Date & Time of Evaluation Date of Evaluation: 07/15/18 Time of Evaluation: 07:21 - Subjective Subjective: Medicine Note for Dr. Gutierres Patient seen and examined at bedside. Patient reports she is ready to go to [facility]. ROS unremarkable otherwise. Objective - Vital Signs/Intake and Output Vital Signs (last 24 hours): Temp Pulse Resp BP Pulse Ox 98.1 F 106 H 20 121/81 96 07/14/18 23:48 07/14/18 23:48 07/14/18 23:48 07/14/18 23:48 07/14/18 23:48 Intake and Output: 07/15/18 07/15/18 06:59 18:59 Intake Total 750 Output Total 300 Balance 450 - Medications Medications: Current Medications Albuterol/Ipratropium (Duoneb 3 Mg/0.5 Mg (3 Ml) Ud) 3 ml IH Q4 [facility] Last Admin: 07/15/18 04:21 Dose: 3 ml Bupropion HCl (Wellbutrin) 75 mg PO DAILY [facility] Last Admin: 07/14/18 09:45 Dose: 75 mg Colchicine (Colocrys) 0.6 mg PO BID [facility] Last Admin: 07/14/18 17:27 Dose: 0.6 mg Cyclobenzaprine HCl (Flexeril) 5 mg PO TID [facility] Last Admin: 07/14/18 17:27 Dose: 5 mg Dextrose (Dextrose 50% Inj) 0 ml IV STAT PRN; Protocol PRN Reason: Hypoglycemia Protocol Dextrose (Glutose 15) 0 gm PO ONCE PRN; Protocol PRN Reason: Hypoglycemia Protocol Diazepam (Valium) 10 mg PO BID PRN PRN Reason: Anxiety Last Admin: 07/14/18 17:30 Dose: 10 mg Diltiazem HCl (Cardizem Cd) 120 mg PO DAILY [facility] Last Admin: 07/14/18 09:46 Dose: 120 mg Docusate Sodium (Colace) 100 mg PO BID [facility] Last Admin: 07/14/18 17:27 Dose: 100 mg Furosemide (Lasix) 20 mg PO DAILY [facility] Last Admin: 07/14/18 09:45 Dose: 20 mg Gabapentin (Neurontin) 300 mg PO HS [facility] Last Admin: 07/14/18 21:45 Dose: 300 mg Glipizide (Glucotrol) 10 mg PO BID [facility] Last Admin: 07/14/18 17:27 Dose: 10 mg Glucagon (Glucagen Diagnostic Kit) 0 mg IM STAT PRN; Protocol PRN Reason: Hypoglycemia Protocol Hydrocortisone (Cortef) 20 mg PO BID [facility] Last Admin: 07/14/18 17:28 Dose: 20 mg Dextrose (Dextrose 5% In Water 1000 Ml) 1,000 mls @ 0 mls/hr IV .Q0M PRN; Protocol PRN Reason: Hypoglycemia Protocol Insulin Aspart (Novolog) 0 unit SC [facility]; Protocol Last Admin: 07/14/18 21:39 Dose: Not Given Insulin Glargine (Lantus) [address] [facility] Last Admin: 07/14/18 21:46 Dose: 10 unit Levothyroxine Sodium (Synthroid) 100 mcg PO DAILY@0630 [facility] Last Admin: 07/15/18 05:30 Dose: 100 mcg Lisinopril (Zestril) 10 mg PO DAILY [facility] Last Admin: 07/14/18 09:45 Dose: 10 mg Metoprolol Tartrate (Lopressor) 50 mg PO BID [facility] Last Admin: 07/14/18 17:27 Dose: 50 mg Oxycodone/Acetaminophen (Percocet 5/325 Mg Tab) 1 tab PO Q6H PRN PRN Reason: Pain, severe (8-10) Stop: 07/17/18 23:34 Pantoprazole Sodium (Protonix Ec Tab) 40 mg PO DAILY [facility] Last Admin: 07/14/18 09:45 Dose: 40 mg Rivaroxaban (Xarelto) 20 mg PO DAILY [facility] Last Admin: 07/14/18 09:46 Dose: 20 mg Rosuvastatin Calcium (Crestor) [address] [facility] Last Admin: 07/14/18 21:44 Dose: 10 mg Saccharomyces Boulardii (Florastor) 250 mg PO Q12 [facility] Last Admin: 07/14/18 21:45 Dose: 250 mg Senna/Docusate Sodium (Senokot S 50 Mg-8.6 Mg) 1 tab PO QPM PRN PRN Reason: Constipation Last Admin: 07/10/18 10:15 Dose: 1 tab Sitagliptin Phosphate (Januvia) 100 mg PO DAILY [facility] Last Admin: 07/14/18 09:45 Dose: 100 mg Zolpidem Tartrate (Ambien) 5 mg PO PRN PRN PRN Reason: Insomnia Last Admin: 07/14/18 21:44 Dose: 5 mg - Labs Labs: 07/14/18 06:59 07/14/18 06:59 - Additional Findings Additional findings: - Constitutional Appears: No Acute Distress - Head Exam Head Exam: NORMAL INSPECTION - Eye Exam Eye Exam: EOMI, Normal appearance - ENT Exam ENT Exam: Mucous Membranes Moist - Respiratory Exam Respiratory Exam: Decreased Breath Sounds, Rales (b/l). absent: Wheezes, Res piratory Distress - Cardiovascular Exam Cardiovascular Exam: Tachycardia, +S1, +S2 - GI/Abdominal Exam GI & Abdominal Exam: Soft, Normal Bowel Sounds. absent: Distended, Firm, Guarding, Tenderness - Extremities Exam Extremities Exam: Normal Inspection. absent: Pedal Edema, Tenderness - Neurological Exam Neurological Exam: Alert, Awake - Psychiatric Exam Psychiatric exam: Normal Affect, Normal Mood - Skin Skin Exam: Dry, Normal Color, Warm Assessment and Plan - Assessment and Plan (Free Text) Plan: Pneumonia - CXR: Shallow lung volumes-limiting optimal evaluation. Left pleural effusion with probable concomitant mild compressive atelectasis here likely. Overall a ppearance is similar. Cardiomegaly and pulmonary venous congestion also suspect- pulmonary venous congestion accentuated due to the crowding as well. - Chest CT(07/08/18): bibasilar subsegmental infiltrates involving lower lobes and right middle lobe Management: - SIRS criteria, lactate normal, procal 0.12 (low) - Azithromycin and Rocephin (started 07/07/18, last dose given on 07/14/18) - Blood cx (07/07/18): no growth to date UTI - SIRS criteria, lactate normal, procal 0.12 (low) - UA + with LE - Rocephin 1 gram daily (completed 7 day course; last dose given on 07/14/18) - Blood cx (07/07/18): no growth to date - Urine cx (07/07/18): + e.coli Diastolic Congestive Heart Failure - Last echo 2016 showed Grade III reversible restrictive diastolic dysfunction, EF 55% - Continue Lasix 20mg PO daily - BNP: 602 Hypertension - Continue Lisinopril 10mg PO daily - Continue Lopressor 50mg PO BID - Continue Cardizem 120mg PO daily Diabetes Mellitus - Accuchecks, Insulin sliding scale- high, Hypoglycemia protocol - HgA1c 9.3 (01/2018) - Januvia 100mg PO daily, Glipizide 10mg PO BID - Added Lantus 10units HS - Gabapentin 300mg PO TID Fibromyalgia w/ severe back pain - Cervical spinal MRI shows C5/C6 lateral herniation without any neurological de ficits present; osteophyte formation and osteoporosis - Thoracic spinal MRI normal - Lumbar spine MRI L3-L4 right foraminal stenosis, degenerative changes Management: - Diazepam 5mg PO PRN - Flexeril 5mg PO TID - Percocet 5/325mg 1 tab Q6H Chronic Constipation 2/2 to opioid use - Continue with Colace - Senna PRN Adrenal Insufficiency - Hydrocortisone 20mg PO BID (decreased from TID due to elevated glucose) Hypothyroidism - Continue Synthroid 100mcg PO daily History of DVT/PE - Continue Xarelto 20mg PO daily Gout - Continue Colchicine Depression - Continue with Wellbutrin Prophylactic Measures - Protonix 40mg PO daily, Probiotics - Xarelto 20mg PO daily - PT/OT - recommend ALONDRA Disposition: Pending ALONDRA approval. If patient refuses ALONDRA, will be discharged home with home services. Case discussed with Dr. Gutierres, Florencia Alatorre DO, PGY2
[2018-07-15 07:45] LABS: BASO % 0.4 % (0.0-2.0); EOS % 0.4 % (0.0-4.0); LYMPH % 10.3 % (20.0-40.0); MEAN CELL VOLUME 74.7 fL (81.0-99.0); MEAN CORPUSCULAR HGB CONC 30.8 g/dL (33.0-37.0); MEAN PLATELET VOLUME 8.9 fL (7.2-11.7); NEUT # 7.8 K/uL (1.8-7.0); NEUT % 78.9 % (50.0-75.0); RBC 4.8 Mil/uL (3.80-5.20); RED CELL DISTRIBUTION WIDTH 16.9 % (11.5-14.5); WHITE BLOOD COUNT 9.9 K/uL (4.8-10.8)
[2018-07-15 08:39] LABS: ALB/GLOB RATIO 1.3 (1.0-2.1); ALBUMIN 3.2 g/dL (3.5-5.0); CALCIUM 8.4 mg/dl (8.6-10.4)
[2018-07-15] MEDS: (Novolog) Insulin Aspart, Recombinant 100 u/ml 10 ml vial SC SCH ×3 (08:54→17:26)
[2018-07-15] MEDS: diltiaZEM 120 mg/24 Hours CD Cap PO SCH (09:18)
[2018-07-15] MEDS: Pantoprazole 40 mg EC Tab PO SCH (10:48)
[2018-07-15] MEDS: Saccharomyces Boulardi 250 mg Cap PO SCH (10:54)
[2018-07-15] MEDS: Potassium & Sodium Phosphate PO SCH ×2 (11:08→17:24)
[2018-07-15 16:27] VITALS: BP 121/82; PULSE 102; RESP 18; TEMP 97.8; O2SAT 95
--- NOTE | 2018-07-22 06:59 | DS ---
The patient was admitted to the hospital with chief complaint of weakness, fatigue, tiredness, and falling. The patient was placed on bedrest, supportive care, physical therapy, and IV antibiotics for possible pneumonia. The patient was weak. We will try to get inpatient rehab she declined. The patient will be discharged to home . Angel Gutierres MD
== END 2018-07-15 19:07 | disposition home or self-care (01) | DRG 193 ==
LOC: C.ER 14:29 → C.9E 16:38 → C.3T 19:29
PROVIDERS: ADMIT Internal Medicine Pulmonary Disease; ATTEND Internal Medicine Pulmonary Disease
DX: J18.9 Pneumonia, unspecified organism (principal); J96.90 Respiratory failure, unspecified, unspecified whether with hypoxia or hypercapnia; J44.0 Chronic obstructive pulmonary disease with (acute) lower respiratory infection; N39.0 Urinary tract infection, site not specified; I50.32 Chronic diastolic (congestive) heart failure; M79.7 Fibromyalgia; Z86.711 Personal history of pulmonary embolism; M06.9 Rheumatoid arthritis, unspecified; I11.0 Hypertensive heart disease with heart failure; E78.5 Hyperlipidemia, unspecified; E03.9 Hypothyroidism, unspecified; E11.9 Type 2 diabetes mellitus without complications

== ENCOUNTER 2018-08-01 20:02 | Inpatient (IN) | payer BC, MEDICARE ==
[2018-08-01 20:03] VITALS: BMI 27.4
--- NOTE | 2018-08-01 20:21 | C.PDOC ---
History Of Present Illness Patient is a 63 year old female who presents to the ED c/o right knee and right leg pain after sustaining frequent falls that occurred yesterday and this morning. Patient states that she has taken Tylenol, with no relief. She denies any LOC, fever, chills, nausea, vomiting, chest pain, or SOB. Time Seen by Provider: 08/01/18 20:20 Chief Complaint (Nursing): Trauma History Per: Patient History/Exam Limitations: no limitations Onset/Duration Of Symptoms: Days (yesterday) Current Symptoms Are (Timing): Still Present Recent travel outside of the [place]: No Additional History Per: Patient Past Medical History Reviewed: Historical Data, Nursing Documentation, Vital Signs Vital Signs: Last Vital Signs Temp 97.8 F 08/01/18 20:14 Pulse 105 H 08/01/18 20:14 Resp 20 08/01/18 20:14 BP 117/68 08/01/18 20:14 Pulse Ox 95 08/01/18 20:14 - Medical History PMH: Anemia, Anxiety, Arthritis (R THR /ORIF), Asthma, Cardia Arrhythmia, CHF, COPD, Depression, Diabetes, Deep Vein Thrombosis, Fibromyalgia, Fractures (R HIP), Gall Bladder Disease, HTN, Hypercholesterolemia, Hyperlipidemia, Hypothyroidism, Pulmonary Embolism (on Coumadin W/ IVC filter), Rheumatoid Arthritis Denies: Chronic Kidney Disease Surgical History: Back Surgery, Cholecystectomy Denies: Appendectomy - [facility] Procedures CENTRAL VENOUS CATHETER PLACEMENT WITH GUIDANCE (09/28/14) ENDOSC POLYPECTOMY OF LG INTEST (09/08/14) ESOPHAGOGASTRODUODENOSCOPY [EGD] W/CLOSED BIOPSY (09/08/14) EXCISION OF STOMACH, ENDO, DIAGN (11/19/15) REPOSITION R UP FEMUR WITH INTRAMED FIX, OPEN APPROACH (03/14/17) SPINAL CANAL EXPLOR NEC (09/08/14) Family History: States: Unknown Family Hx - Social History Hx Tobacco Use: No Hx Alcohol Use: No Hx Substance Use: No - Immunization History Hx Tetanus Toxoid Vaccination: No Hx Influenza Vaccination: No Hx Pneumococcal Vaccination: No Review Of Systems Constitutional: Negative for: Fever, Chills, Other (LOC) Cardiovascular: Negative for: Chest Pain Respiratory: Negative for: Shortness of Breath Gastrointestinal: Negative for: Nausea, Vomiting Musculoskeletal: Positive for: Leg Pain (right knee and right leg) Physical Exam - Physical Exam Appears: Non-toxic, No Acute Distress Skin: Warm, Dry, Ecchymosis (diffuse scattered ecchymosis on right knee ) Head: Other (Murray facies ) Eye(s): bilateral: Normal Inspection Ear(s): Bilateral: Normal Oral Mucosa: Moist Neck: Trachea Midline, Supple Chest: Symmetrical Cardiovascular: Rhythm Regular Respiratory: No Rales, No Rhonchi, No Wheezing Gastrointestinal/Abdominal: Soft, No Tenderness, No Distention, Other (obese) Extremity: Tenderness (right knee, unable to flex joint ), Capillary Refill (bilateral less than 2 seconds), Other (surgical scar on right hip from hip replacement ) Neurological/Psych: Oriented x3 ED Course And Treatment - Laboratory Results Result Diagrams: 08/01/18 21:06 08/01/18 21:06 ECG: Interpreted By Me, Viewed By Me ECG Rhythm: Sinus Rhythm (103), Nonspecific Changes O2 Sat by Pulse Oximetry: 95 (on RA) Pulse Ox Interpretation: Normal - CT Scan/US CT lower extrem Other Rad Studies (CT/US): Read By Radiologist, Radiology Report Reviewed CT/US Interpretation: EXAM: CT Tibia and Fibula, right, without IV contrast. CLINICAL HISTORY: TRAUMA TO RIGHT LOWER EXTREMITY. TECHNIQUE: Axial computed tomography images of the right tibia and fibula without intravenous contrast. 0.00 mGy-cm. CONTRAST: None. COMPARISON: None provided. FINDINGS: BONES: There is a minimally displaced, comminuted fracture traversing obliquely through the proximal shaft of the right tibia. There is no extension to the tibial plateau. There are several well corticated fragments near the tibial plateau posteriorly. These are most suggestive of old trauma. It is difficult to enti rely exclude superimposed acute trauma. Please correlate clinically. There are moderate degenerative changes about the knee joint. JOINTS: No dislocation. SOFT TISSUES: The there is significant atherosclerotic calcification of the right lower extremity arteries. IMPRESSION: 1. There is a minimally displaced, comminuted fracture traversing obliquely through the proximal shaft of the right tibia. 2. There is no extension to the tibial plateau. 3. There are several well corticated fragments near the tibial plateau posteriorly. These are most suggestive of old trauma. It is difficult to entirely exclude superimposed acute trauma. Please correlate clinically. 4. The there is significant atherosclerotic calcification of the right lower extremity arteries. 5. Moderate degenerative changes about the knee joint. . Electronically signed on Aug 01, 2018 10:20:24 PM EST by: Lobo Lucas M.D., MBA Certified By ABR & CBCCT. Fellowship Trained MRI and CT Specialist. Progress Note: Plan: CAT Knee, CAT EXT Lower RT, EKG, Bloodwork, Nebulizer Treatment, Urinalysis ordered and reviewed. Morphine 2mg IVp and Motrin 600mg PO given. Disposition Discussed With Dr.: Angel Gutierres Comment: accepted the pt on his service and took over the care at 11:13 PM Doctor Will See Patient In The: Hospital Counseled Patient/Family Regarding: Studies Performed, Diagnosis - Disposition Disposition: HOSPITALIZED Disposition Time: 20:21 Condition: FAIR Forms: Wireless Environment (Swazi) - POA Present On Arrival: Poor Glycemic Control - Clinical Impression Clinical Impression: Falls, Fracture of right tibia, COPD (chronic obstructive pulmonary disease) - Scribe Statement The provider has reviewed the documentation as recorded by the Rafaelibcourt Mack All medical record entries made by the Scribe were at my direction and personally dictated by me. I have reviewed the chart and agree that the record accurately reflects my personal performance of the history, physical exam, medical decision making, and the department course for this patient. I have also personally directed, reviewed, and agree with the discharge instructions and disposition. Decision To Admit - Pt Status Changed To: Hospital Disposition Of: Inpatient - Admit Certification Admit to Inpatient:: After my assessment, the patient will require hospitalization for at least two midnights. This is because of the severity of symptoms shown, intensity of services needed, and/or the medical risk in this patient being treated as an outpatient. - InPatient: Physician Admission Certification: I certify that this patient requires 2 or more midnights of care for the following reason:: After my assessment, the patient will require hospitalization for at least two midnights. This is because of the severity of symptoms shown, intensity of services needed, and/or the medical risk in this patient being treated as an outpatient. - . Bed Request Type: Telemetry Admitting Physician: Angel Gutierres Patient Diagnosis: Falls, Fracture of right tibia, COPD (chronic obstructive pulmonary disease)
[2018-08-01 21:21] LABS: INR 1.8; PROTHROMBIN TIME 19.9 SECONDS (9.7-12.2)
[2018-08-01 21:26] LABS: ALB/GLOB RATIO 1.3 (1.0-2.1); ALBUMIN 3.4 g/dL (3.5-5.0)
[2018-08-01 22:18] LABS: BASO # 0.1 K/uL (0.0-0.2); EOS # 0.1 K/uL (0.0-0.7); EOS % 1.1 % (0.0-4.0); HEMOGLOBIN 9.7 g/dL (11.0-16.0); LYMPH # 1.9 K/uL (1.0-4.3); LYMPH % 16.6 % (20.0-40.0); MEAN CELL VOLUME 77.4 fL (81.0-99.0); MEAN CORPUSCULAR HGB CONC 28.4 g/dL (33.0-37.0); MEAN PLATELET VOLUME 9.3 fL (7.2-11.7); MONO # 0.9 K/uL (0.0-0.8); MONO % 7.7 % (0.0-10.0); NEUT # 8.3 K/uL (1.8-7.0); NEUT % 73.6 % (50.0-75.0); NRBC % 0.2 % (0.0-2.0); RBC 4.39 Mil/uL (3.80-5.20); RED CELL DISTRIBUTION WIDTH 17.9 % (11.5-14.5); WHITE BLOOD COUNT 11.2 K/uL (4.8-10.8)
[2018-08-01] MEDS: Sodium Chloride 0.45% 1,000 ML IV SCH (23:35)
[2018-08-01] MEDS ORDERED: Sodium Chloride 0.45% 500ml 1,000 ML IV ONE (23:35)
[2018-08-01] MEDS: Albuterol-Ipratrop 3 mg / 0.5 (3 ml) UD IH SCH (23:41)
[2018-08-01] MEDS: Albuterol-Ipratrop 3 mg / 0.5 (3 ml) UD INH SCH (23:42)
[2018-08-01] MEDS ORDERED: Albuterol-Ipratrop 3 mg / 0.5 (3 ml) UD ONE (23:47)
[2018-08-02] MEDS: Oxycodone/Acetaminophen 5/325 mg Tab PO PRN ×3 (01:20→20:13)
[2018-08-02] MEDS ORDERED: Oxycodone/Acetaminophen 5/325 mg Tab ONE ×2 (01:21→08:01)
[2018-08-02] MEDS: Albuterol-Ipratrop 3 mg / 0.5 (3 ml) UD INH SCH ×5 (05:52→19:42)
[2018-08-02] MEDS ORDERED: (Novolog) Insulin Aspart, Recombinant 100 u/ml 10 ml vial SC SCH (07:30)
[2018-08-02] MEDS: Albuterol-Ipratrop 3 mg / 0.5 (3 ml) UD IH PRN (08:00)
--- NOTE | 2018-08-02 08:14 | CP.PCM.CON ---
History of Present Illness - History of Present Illness History of Present Illness: Orthopedic consultation Dr. Hernandez 63F complains of right knee pain after fall at home. She was unable to walk due to the pain so she came to the ER. At this time, only complaint is knee pain. Denies pain in other extremities, denies pain in right hip or ankle/back/neck. She is known to me from prior admission for hip fracture and ORIF Mar 2017. Denies numbness/tingling. Denies CP/SOB/dizziness/palp/n/v/fever/chills. on xarelto Review of Systems - Review of Systems All systems: reviewed and no additional remarkable complaints except - Constitutional Additional comments: no fever/chills - Cardiovascular Cardiovascular: As Per HPI - Respiratory Respiratory: As Per HPI - Gastrointestinal Gastrointestinal: As Per HPI - Musculoskeletal Musculoskeletal: As Per HPI - Integumentary Additional comments: unclear if discoloration around ankle is new or old as patient is in pain and not answering questions at this time - Neurological Neurological: As Per HPI - Hematologic/Lymphatic Hematologic: absent: As Per HPI, Easy Bleeding, Easy Bruising, Lymphadenopathy, Other Past Patient History - Infectious Disease Hx of Infectious Diseases: None - Past Medical History & Family History Past Medical History?: Yes Past Family History: Reviewed and not pertinent - Past Social History Smoking Status: Former Smoker - CARDIAC Hx Cardia Arrhythmia: Yes Hx Congestive Heart Failure: Yes Hx Hypercholesterolemia: Yes Hx Hypertension: Yes - PULMONARY Hx Asthma: Yes Hx Chronic Obstructive Pulmonary Disease (COPD): Yes Hx Pulmonary Embolism: Yes (on Coumadin W/ IVC filter) - NEUROLOGICAL Hx Neurological Disorder: No HX Cerebrovascular Accident: Yes Other/Comment: Pt states "I have had three strokes in the past" Cannot recall dee frame. - HEENT Hx HEENT Problems: No - RENAL Hx Chronic Kidney Disease: No - ENDOCRINE/METABOLIC Hx Hypothyroidism: Yes - HEMATOLOGICAL/ONCOLOGICAL Hx Anemia: Yes - INTEGUMENTARY Hx Dermatological Problems: No - MUSCULOSKELETAL/RHEUMATOLOGICAL Hx Arthritis: Yes (R THR /ORIF) Hx Fractures: Yes (R HIP) Hx Rheumatoid Arthritis: Yes - GASTROINTESTINAL Hx Gall Bladder Disease: Yes - GENITOURINARY/GYNECOLOGICAL Hx Genitourinary Disorders: Yes Hx Urinary Tract Infection: Yes - PSYCHIATRIC Hx Anxiety: Yes Hx Depression: Yes Hx Substance Use: No - SURGICAL HISTORY Hx Appendectomy: No Hx Cholecystectomy: Yes - ANESTHESIA Hx Anesthesia: Yes Hx Anesthesia Reactions: Yes (DIFFICULTY BREATHING) Meds Allergies/Adverse Reactions: Allergies Allergy/AdvReac Type Severity Reaction Status Date / Time No Known Allergies Allergy Verified 07/07/18 14:35 - Medications Medications: Current Medications Albuterol/Ipratropium (Duoneb 3 Mg/0.5 Mg (3 Ml) Ud) 3 ml INH RQ4 MATIAS Stop: 08/02/18 20:01 Last Admin: 08/02/18 05:52 Dose: Not Given Enoxaparin Sodium (Lovenox) 40 mg SC DAILY [facility] Sodium Chloride (Sodium Chloride 0.45%) 1,000 mls @ 100 mls/hr IV .Q10H MATIAS Last Admin: 08/01/18 23:35 Dose: 100 mls/hr Insulin Aspart (Novolog) 0 unit SC ACHS MATIAS; Protocol Oxycodone/Acetaminophen (Percocet 5/325 Mg Tab) 1 tab PO Q4H PRN PRN Reason: Pain, moderate (4-7) Stop: 08/04/18 23:27 Last Admin: 08/02/18 08:04 Dose: 1 tab Pantoprazole Sodium (Protonix Ec Tab) 40 mg PO DAILY [facility] Physical Exam - Constitutional Appears: Well, In Acute Distress - Head Exam Head Exam: ATRAUMATIC - Cardiovascular Exam Additional comments: +DP/PT pulses - Expanded Lower Extremities Exam Right Knee exam: ecchymosis, swelling, tenderness Ankle exam: FULL ROM Neuro vacular tendon exam: no vascular compromise - Neurological Exam Neurological exam: Alert, Oriented x3 - Psychiatric Exam Psychiatric exam: Anxious - Skin Skin Exam: Dry, Intact (ecchymosis to anterior prox tibia, noted round areas of purple discoloration around right ankle, unclear duration), Warm Results - Vital Signs Recent Vital Signs: Last Vital Signs Temp 97.8 F 08/01/18 20:14 Pulse 103 H 08/02/18 06:16 Resp 20 08/02/18 06:16 BP 98/53 L 08/02/18 06:16 Pulse Ox 97 08/02/18 06:16 - Labs Result Diagrams: 08/01/18 21:06 08/01/18 21:06 Labs: Laboratory Results - last 24 hr 08/01/18 08/01/18 08/01/18 20:07 21:06 21:06 WBC 11.2 H RBC 4.39 Hgb 9.7 L Hct 34.0 MCV 77.4 L D MCH 22.0 L MCHC 28.4 L RDW 17.9 H Plt Count 189 D MPV 9.3 Neut % (Auto) 73.6 Lymph % (Auto) 16.6 L [place] % (Auto) 7.7 Eos % (Auto) 1.1 Baso % (Auto) 1.0 Neut # (Auto) 8.3 H Lymph # (Auto) 1.9 [place] # (Auto) 0.9 H Eos # (Auto) 0.1 Baso # (Auto) 0.1 PT 19.9 H INR 1.8 APTT 32 Sodium Potassium Chloride Carbon Dioxide Anion Gap BUN Creatinine Est GFR ( Amer) Est GFR (Non-Af Amer) POC Glucose (mg/dL) 339 H Random Glucose Calcium Total Bilirubin AST ALT Alkaline Phosphatase Total Protein Albumin Globulin Albumin/Globulin Ratio 08/01/18 08/02/18 21:06 00:31 WBC RBC Hgb Hct MCV MCH MCHC RDW Plt Count MPV Neut % (Auto) Lymph % (Auto) [place] % (Auto) Eos % (Auto) Baso % (Auto) Neut # (Auto) Lymph # (Auto) [place] # (Auto) Eos # (Auto) Baso # (Auto) PT INR APTT Sodium 134 Potassium 5.7 H Chloride 102 Carbon Dioxide 28 Anion Gap 10 BUN 47 H Creatinine 1.3 H Est GFR ( Amer) 50 Est GFR (Non-Af Amer) 41 POC Glucose (mg/dL) 303 H Random Glucose 343 H D Calcium 8.0 L Total Bilirubin 0.7 AST 34 ALT 38 Alkaline Phosphatase 113 Total Protein 6.1 L Albumin 3.4 L Globulin 2.7 Albumin/Globulin Ratio 1.3 - Impressions Impression: calcaneus. Clinical correlation. Impression: 1. Transverse oblique fracture deformity through the metaphysis of the proximal tibia. 2. Prominent focal area of increased sclerosis noted within the medullary cavity of the distal tibia extending to the tibiotalar joint space suggestive for focal avascular necrosis. Evaluation of the foot is markedly limited and correlation with dedicated CT of the foot and ankle is recommended for further evaluation if clinically indicated. 3. Curvilinear sclerosis at the articular surface of the talar dome also concerning for avascular necrosis. There may be some subchondral flattening. Correlation with MRI may be helpful. 4. Severe medial and patellofemoral compartment joint space narrowing of the femorotibial joint space. Cortical irregularity at the level of the posterior midline and lateral proximal tibia at the articular surface suggestive for chronic trauma. If there is concern for acute osseous injury, correlation with MRI is recommended. 5. Marked heterotopic bone formation with adjacent prominent loose osteochondral bodies and or osteophytes noted at the posterior aspect of the lateral proximal tibia and tibial plateau which may be related to chronic d egenerative change given the well corticated margins. This may be better evaluated with a knee MRI if clinically indicated or if there is concern for acute osseous injury at this level. 5. Small suprapatellar joint effusion. A preliminary report was generated at 10:20 p.m. on 08/01/[address] Lobo Lucas from [facility]. Assessment & Plan (1) Closed fracture of right proximal tibia Assessment and Plan: non operative per Dr. Hernandez knee immobilizer, bulky dressing at all times strict NWB PT/OT VTE proph d/c planning pain medication prn elevation/ice PT/OT appreciated plain films ordered d/w Dr. Hernandez, agrees with above Status: Acute
--- NOTE | 2018-08-02 08:15 | CP.PCM.PN ---
Subjective - Date & Time of Evaluation Date of Evaluation: 08/02/18 Time of Evaluation: 07:45 - Subjective Subjective: Progress Note for Dr. Gutierres 63 year of [place] female with history of COPD, Diastolic HF, Hypertension, Diabetes Mellitus, Fibromyalgia, Hypothyroidism, History of DVT/PE, Gout, and depression presents to the hospital after sustaining a fall at home a day prior. Patient reports of getting out of bed and lost balanced then landed on her right knee. She tried taking Tylenol at home but did not relief her pain. Denied fever, chills, chest pain, abdominal pain, n/v/d/ or constipation. PMHx: COPD, Diastolic HF, Hypertension, Diabetes Mellitus, Fibromyalgia, Hypothyroidism, History of DVT/PE, Gout, and depression PSHx: right hip ORIF (03/2017), Cholecystectomy, Hysterectomy, Appendectomy Allergy: NKDA SHx: Denied alcohol, illicit drug use, or tobacco use FHx: Denies Objective - Vital Signs/Intake and Output Vital Signs (last 24 hours): Temp Pulse Resp BP Pulse Ox 97.8 F 103 H 20 98/53 L 97 08/01/18 20:14 08/02/18 06:16 08/02/18 06:16 08/02/18 06:16 08/02/18 06:16 - Medications Medications: Current Medications Albuterol/Ipratropium (Duoneb 3 Mg/0.5 Mg (3 Ml) Ud) 3 ml INH RQ4 MATIAS Stop: 08/02/18 20:01 Last Admin: 08/02/18 05:52 Dose: Not Given Enoxaparin Sodium (Lovenox) 40 mg SC DAILY [facility] Sodium Chloride (Sodium Chloride 0.45%) 1,000 mls @ 100 mls/hr IV .Q10H [facility] Last Admin: 08/01/18 23:35 Dose: 100 mls/hr Insulin Aspart (Novolog) 0 unit SC ACHS [facility]IAS; Protocol Oxycodone/Acetaminophen (Percocet 5/325 Mg Tab) 1 tab PO Q4H PRN PRN Reason: Pain, moderate (4-7) Stop: 08/04/18 23:27 Last Admin: 08/02/18 08:04 Dose: 1 tab Pantoprazole Sodium (Protonix Ec Tab) 40 mg PO DAILY [facility] - Labs Labs: 08/01/18 21:06 08/01/18 21:06 PT 19.9 SECONDS (9.7-12.2) H 08/01/18 21:06 INR 1.8 08/01/18 21:06 APTT 32 SECONDS (21-34) 08/01/18 21:06 - Additional Findings Additional findings: - Constitutional Appears: No Acute Distress - Head Exam Head Exam: NORMAL INSPECTION - Eye Exam Eye Exam: EOMI, Normal appearance - ENT Exam ENT Exam: Mucous Membranes Moist - Respiratory Exam Respiratory Exam: Clear to Auscultation Bilaterally. absent: Wheezes, Respiratory Distress - Cardiovascular Exam Cardiovascular Exam: Tachycardia, +S1, +S2 - GI/Abdominal Exam GI & Abdominal Exam: Soft, Normal Bowel Sounds. absent: Distended, Firm, Guarding, Tenderness - Extremities Exam Extremities Exam: right lower extremity with brace on, sensory and motor intact. absent: Pedal Edema, Tenderness - Neurological Exam Neurological Exam: Alert, Awake - Psychiatric Exam Psychiatric exam: Normal Affect, Normal Mood - Skin Skin Exam: Dry, Normal Color, Warm Assessment and Plan - Assessment and Plan (Free Text) Assessment: Right proximal tibia fracutre, nondisplaced - xray shows nondisplaced comminuted fracture proximal tibial metaphysis - Orthopedic consulted, Dr. Ridley - No surgical intervention at this time - Knee immobilizer, NWB for 8 weeks - Percocet Q4 prn for pain - PT eval Chornic Diastolic Congestive Heart Failure - Stable - Last echo 2016 showed Grade III reversible restrictive diastolic dysfunction, EF 55% - Lasix 20mg PO daily Hypertension - Lisinopril 10mg PO daily - Metoprolol 50mg PO BID - Cardizem 120mg PO daily Diabetes Mellitus - Accuchecks, Insulin sliding scale - Hypoglycemia protocol - HgA1c 9.3 (01/2018) - Januvia 100mg PO daily - Glipizide 10mg PO BID - Gabapentin 300mg PO TID Fibromyalgia w/ severe back pain - Stable - Diazepam 5mg PO PRN - Flexeril 5mg PO TID - Percocet 5/325mg 1 tab Q6H Adrenal Insufficiency - Hydrocortisone 20mg PO TID Hypothyroidism - Synthroid 100mcg PO daily History of DVT/PE - Xarelto 20mg PO daily Gout - Colchicine 0.6mg BID Depression - Wellbutrin 75mg Prophylactic Measures - Protonix 40mg PO daily, Probiotics - Xarelto 20mg PO daily - PT Case discussed with Dr. Gutierres
[2018-08-02] MEDS ORDERED: Albuterol-Ipratrop 3 mg / 0.5 (3 ml) UD ONE ×2 (09:06→11:19)
[2018-08-02] MEDS ORDERED: Enoxaparin 40 mg Syringe ONE (09:54)
[2018-08-02] MEDS ORDERED: (Novolog) Insulin Aspart, Recombinant 100 u/ml 10 ml vial ONE (09:55)
[2018-08-02] MEDS ORDERED: Pantoprazole 40 mg EC Tab PO ONE (09:55)
[2018-08-02] MEDS ORDERED: Enoxaparin 40 mg Syringe SC SCH (10:00)
[2018-08-02] MEDS: Pantoprazole 40 mg EC Tab PO SCH (10:02)
[2018-08-02 11:22] LABS: SQUAMOUS EPITHIAL 13 /hpf (0-5); URINE BACTERIA RARE (<OCC); URINE BILIRUBIN NEGATIVE (NEGATIVE); URINE BLOOD NEGATIVE (NEGATIVE); URINE CLARITY Hazy (Clear); URINE COLOR Yellow (YELLOW); URINE GLUCOSE (UA) NORMAL (Normal); URINE LEUKOCYTE ESTERASE 3+ Leu/uL (Negative); URINE PROTEIN NEGATIVE (NEGATIVE); URINE UROBILINOGEN NORMAL mg/dL (0.2-1.0)
--- NOTE | 2018-08-02 12:10 | CT ---
CT right lower extremity HISTORY: Fracture. COMPARISON: None available. Technique: Multiple contiguous axial images were performed through the right lower extremity including the right knee, tibia and fibula, and foot without the use of intravenous contrast. Subsequently, sagittal and coronal reformatted images were obtained. Findings: Please note given the large field of view, evaluation of the osseous structures is markedly limited, particularly at the level of the foot. If there is concern for osseous abnormality or fracture at the level of the foot, dedicated repeat foot and ankle CT or MR is recommended for further evaluation. Prominent diffuse osteopenia. Transverse oblique fracture deformity through the metaphysis of the proximal tibia. Severe medial and patellofemoral compartment joint space narrowing of the femorotibial joint space. Cortical irregularity at the level of the posterior midline and lateral proximal tibia at the articular surface suggestive for chronic trauma. If there is concern for acute osseous injury, correlation with MRI is recommended. Marked heterotopic bone formation with adjacent prominent loose osteochondral bodies and or osteophytes noted at the posterior aspect of the lateral proximal tibia and tibial plateau which may be related to chronic degenerative change given the well corticated margins. This may be better evaluated with a knee MRI if clinically indicated or if there is concern for acute osseous injury at this level. Small suprapatellar joint effusion. Vascular calcifications. Prominent focal area of increased sclerosis noted within the medullary cavity of the distal tibia extending to the tibiotalar joint space suggestive for focal avascular necrosis. Again evaluation of the foot is markedly limited and correlation with dedicated CT of the foot and ankle is recommended for further evaluation if clinically indicated. Degenerative changes at the talonavicular joint space. Diffuse osteopenia. Curvilinear sclerosis at the articular surface of the talar dome also concerning for avascular necrosis. There may be some subchondral flattening. Correlation with MRI may be helpful. Medial subluxation of the patella. Patchy sclerosis seen within the posterior calcaneus may represent focal avascular necrosis. Prominent vascular calcifications. Reticulation and edema seen within the soft tissues adjacent to the calcaneus. Clinical correlation. Impression: 1. Transverse oblique fracture deformity through the metaphysis of the proximal tibia. 2. Prominent focal area of increased sclerosis noted within the medullary cavity of the distal tibia extending to the tibiotalar joint space suggestive for focal avascular necrosis. Evaluation of the foot is markedly limited and correlation with dedicated CT of the foot and ankle is recommended for further evaluation if clinically indicated. 3. Curvilinear sclerosis at the articular surface of the talar dome also concerning for avascular necrosis. There may be some subchondral flattening. Correlation with MRI may be helpful. 4. Severe medial and patellofemoral compartment joint space narrowing of the femorotibial joint space. Cortical irregularity at the level of the posterior midline and lateral proximal tibia at the articular surface suggestive for chronic trauma. If there is concern for acute osseous injury, correlation with MRI is recommended. 5. Marked heterotopic bone formation with adjacent prominent loose osteochondral bodies and or osteophytes noted at the posterior aspect of the lateral proximal tibia and tibial plateau which may be related to chronic degenerative change given the well corticated margins. This may be better evaluated with a knee MRI if clinically indicated or if there is concern for acute osseous injury at this level. 5. Small suprapatellar joint effusion. A preliminary report was generated at 10:20 p.m. on 08/01/[address] Lobo Lucas from [employer].
[2018-08-02] MEDS: (Novolog) Insulin Aspart, Recombinant 100 u/ml 10 ml vial SC SCH ×3 (13:21→21:55)
--- NOTE | 2018-08-02 14:02 | RAD ---
Date of service: 08/02/2018 PROCEDURE: Right Knee Radiographs. HISTORY: prox tib fx COMPARISON: None. FINDINGS: BONES: And a mostly horizontal minimally comminuted fracture of the proximal tibial metaphysis is noted. There is osseous hypertrophy projecting over the medial tibial spine and epiphysis in this area and is difficult to completely exclude any vertical component of a possible fracture line extending to the articular surface. An overlying val for stabilization is in place. And is also confounding posterior vascular calcifications present. Intra-articular extension is however believed not likely present JOINTS: Tricompartmental osteoarthrosis medial femoral tibial compartment most notable. JOINT EFFUSION: Minimal suprapatellar joint effusion possible. OTHER FINDINGS: Atherosclerotic vascular calcifications present. IMPRESSION: Nondisplaced mostly horizontally oriented tibial metaphyseal comminuted fracture lines-as referenced above. Background tricompartmental osteoarthrosis. Atherosclerotic vascular calcifications.
--- NOTE | 2018-08-02 14:21 | RAD ---
Date of service: 08/02/2018 PROCEDURE: Radiographs of the right tibia and fibula. HISTORY: prox tib fib fx COMPARISON: None available TECHNIQUE: Frontal and lateral views obtained. FINDINGS: BONES: A comminuted nondisplaced proximal tibial metaphyseal fracture is present. No gross intra-articular extension is seen. However assessment of this is com bounded by the osseous hypertrophy in the overlying fixation rods in place. Intra-articular extension is doubted but not entirely excluded. JOINT SPACES: Knee joint arthrosis. No significant appearing ankle joint arthrosis. Given the osseous hypertrophic changes projecting over the posterior knee-concomitant posterior intra-articular loose body is a consideration. OTHER FINDINGS: Atherosclerotic vascular calcifications present. IMPRESSION: Nondisplaced comminuted fracture proximal tibial metaphysis as detailed above. Other findings as above.
[2018-08-02] MEDS ORDERED: Albuterol-Ipratrop 3 mg / 0.5 (3 ml) UD IH PRN (18:08)
[2018-08-02] MEDS: Sodium Chloride 0.45% 1,000 ML IV SCH ×2 (18:43→19:30)
[2018-08-02] MEDS: diltiaZEM 120 mg/24 Hours CD Cap PO STA ×2 (20:01→20:02)
--- NOTE | 2018-08-02 20:30 | CARD ---
APPROVED REPORT Date of service: 08/01/2018 EKG Measurement Heart [id number] <Conclusion> Sinus tachycardia Otherwise normal ECG
[2018-08-03] MEDS: Oxycodone/Acetaminophen 5/325 mg Tab PO PRN (06:27)
[2018-08-03] MEDS: Levothyroxine 100 MCG TAB PO SCH (06:27)
--- NOTE | 2018-08-03 07:13 | CP.PCM.PN ---
Subjective - Date & Time of Evaluation Date of Evaluation: 08/03/18 Time of Evaluation: 11:45 - Subjective Subjective: PGY2 Medicine Note for Dr. Gutierres Patient was seen and examined this morning at bed side. No acute events overnight. Patient was evaluated by ortho and was informed that she does not need surgery at this time. Her pain has been well controlled. She is happy to hear that she does not need surgery and is hopeful that she will be discharged to rehab soon. Objective - Vital Signs/Intake and Output Vital Signs (last 24 hours): Temp Pulse Resp BP Pulse Ox 98.1 F 99 H 20 143/83 94 L 08/02/18 23:15 08/02/18 23:15 08/02/18 23:15 08/02/18 23:15 08/02/18 23:15 Intake and Output: 08/03/18 08/03/18 06:59 18:59 Intake Total 1200 Balance 1200 - Medications Medications: Current Medications Albuterol/Ipratropium (Duoneb 3 Mg/0.5 Mg (3 Ml) Ud) 3 ml IH RQ4 PRN PRN Reason: Shortness of Breath Bupropion HCl (Wellbutrin) 75 mg PO DAILY [facility] Colchicine (Colocrys) 0.6 mg PO BID [facility] Cyclobenzaprine HCl (Flexeril) 5 mg PO TID [facility] Diazepam (Valium) 10 mg PO BID PRN PRN Reason: Anxiety Last Admin: 08/03/18 01:33 Dose: 10 mg Diltiazem HCl (Cardizem Cd) 120 mg PO DAILY [facility] Furosemide (Lasix) 20 mg PO DAILY [facility] Gabapentin (Neurontin) 300 mg PO HS [facility] Last Admin: 08/02/18 22:48 Dose: 300 mg Glipizide (Glucotrol) 10 mg PO BID [facility] Hydrocortisone (Cortef) 20 mg PO TID [facility] Sodium Chloride (Sodium Chloride 0.45%) 1,000 mls @ 100 mls/hr IV .Q10H [facility] Last Admin: 08/02/18 19:30 Dose: Not Given Insulin Aspart (Novolog) 0 unit SC [facility]; Protocol Last Admin: 08/02/18 21:55 Dose: Not Given Levothyroxine Sodium (Synthroid) 100 mcg PO DAILY@0630 [facility] Last Admin: 08/03/18 06:27 Dose: 100 mcg Lisinopril (Zestril) 10 mg PO DAILY [facility] Metoprolol Tartrate (Lopressor) 50 mg PO BID [facility] Last Admin: 08/02/18 18:47 Dose: 50 mg Oxycodone/Acetaminophen (Percocet 5/325 Mg Tab) 1 tab PO Q4H PRN PRN Reason: Pain, moderate (4-7) Stop: 08/04/18 23:27 Last Admin: 08/03/18 06:27 Dose: 1 tab Pantoprazole Sodium (Protonix Ec Tab) 40 mg PO DAILY [facility] Last Admin: 08/02/18 10:02 Dose: 40 mg Rivaroxaban (Xarelto) 20 mg PO DAILY [facility] Sitagliptin Phosphate (Januvia) 100 mg PO DAILY [facility] - Labs Labs: 08/01/18 21:06 08/01/18 21:06 PT 19.9 SECONDS (9.7-12.2) H 08/01/18 21:06 INR 1.8 08/01/18 21:06 APTT 32 SECONDS (21-34) 08/01/18 21:06 - Constitutional Appears: Non-toxic, No Acute Distress - Head Exam Head Exam: ATRAUMATIC, NORMOCEPHALIC - Eye Exam Eye Exam: Normal appearance - ENT Exam ENT Exam: Mucous Membranes Moist - Neck Exam Neck Exam: absent: Lymphadenopathy, Tenderness - Respiratory Exam Respiratory Exam: Clear to Ausculation Bilateral, NORMAL BREATHING PATTERN. abs ent: Accessory Muscle Use, Rales, Rhonchi, Wheezes, Respiratory Distress - Cardiovascular Exam Cardiovascular Exam: Tachycardia - GI/Abdominal Exam GI & Abdominal Exam: Soft, Normal Bowel Sounds. absent: Distended, Firm, Guarding, Rigid, Tenderness - Extremities Exam Additional comments: right lower extremity with brace on, sensory and motor intact. - Neurological Exam Neurological Exam: Alert, Oriented x3 Additional comments: sensation intact of toe of right foot. - Psychiatric Exam Psychiatric exam: Depressed - Skin Skin Exam: Dry, Warm Assessment and Plan - Assessment and Plan (Free Text) Plan: Right proximal tibia fracutre, nondisplaced - Orthopedic consulted, Dr. Ridley * No surgical intervention at this time - xray shows nondisplaced comminuted fracture proximal tibial metaphysis - Knee immobilizer, NWB for 8 weeks - Percocet Q4 prn for pain - PT eval [place]ornic Diastolic Congestive Heart Failure - Stable - Last echo 2017 showed Grade III reversible restrictive diastolic dysfunction, EF 55% - Lasix 20mg PO daily Hypertension - continue to monitor - Lisinopril 10mg PO daily - Metoprolol 50mg PO BID - Cardizem 120mg PO daily Diabetes Mellitus - Accuchecks, Insulin sliding scale - Hypoglycemia protocol - HgA1c 9.3 (01/2018) - Januvia 100mg PO daily - Glipizide 10mg PO BID - Gabapentin 300mg PO TID Fibromyalgia w/ severe back pain - Stable - Diazepam 5mg PO PRN - Flexeril 5mg PO TID - Percocet 5/325mg 1 tab Q6H Adrenal Insufficiency - Hydrocortisone 20mg PO TID Hypothyroidism - Synthroid 100mcg PO daily History of DVT/PE - Xarelto 20mg PO daily Gout - Colchicine 0.6mg BID Depression - Wellbutrin 75mg Prophylactic Measures - Protonix 40mg PO daily, Probiotics - Xarelto 20mg PO daily - PT DISPO: Patient is medically stable for discharge to [facility]. Pending placement. Case discussed with Dr. Nenita Luke Kaye PGY2
[2018-08-03 07:33] LABS: HEMOGLOBIN 8.7 g/dL (11.0-16.0); MEAN CORPUSCULAR HEMOGLOBIN 23.2 pg (27.0-31.0); MEAN CORPUSCULAR HGB CONC 30.1 g/dL (33.0-37.0); MEAN PLATELET VOLUME 8.5 fL (7.2-11.7); RBC 3.77 Mil/uL (3.80-5.20); RED CELL DISTRIBUTION WIDTH 17.8 % (11.5-14.5); WHITE BLOOD COUNT 7.4 K/uL (4.8-10.8)
[2018-08-03 07:40] LABS: CALCIUM 8.7 mg/dl (8.6-10.4)
[2018-08-03] MEDS: Albuterol-Ipratrop 3 mg / 0.5 (3 ml) UD IH PRN ×3 (08:06→16:03)
[2018-08-03] MEDS: (Novolog) Insulin Aspart, Recombinant 100 u/ml 10 ml vial SC SCH ×4 (08:33→22:13)
[2018-08-03] MEDS: diltiaZEM 120 mg/24 Hours CD Cap PO SCH (09:30)
[2018-08-03] MEDS: Pantoprazole 40 mg EC Tab PO SCH (09:33)
--- NOTE | 2018-08-03 12:55 | CP.PCM.PN ---
Subjective - Date & Time of Evaluation Date of Evaluation: 08/03/18 Time of Evaluation: 08:00 - Subjective Subjective: Orthopedic f/u Dr. Hernandez Patient complaining of pain in right leg, knee ankle and foot today. She says she didn't have pain in her ankle until the fall. Denies numbness/tingling. Review of Systems - Review of Systems Review of Systems: no fever/chills - Cardiovascular Cardiovascular: UNREMARKABLE - Respiratory Respiratory: UNREMARKABLE - Gastrointestinal Gastrointestinal: UNREMARKABLE - Musculoskeletal Musculoskeletal: As Par HPI - Integumentary Additional comments: bruising - Neurological Neurological: As Per HPI - Endocrine Endocrine: UNREMARKABLE - Hematologic/Lymphatic Hematologic: Easy Bruising Objective - Vital Signs/Intake and Output Vital Signs (last 24 hours): Temp Pulse Resp BP Pulse Ox 98.1 F 99 H 20 99/68 L 94 L 08/02/18 23:15 08/02/18 23:15 08/02/18 23:15 08/03/18 09:34 08/02/18 23:15 Intake and Output: 08/03/18 08/03/18 06:59 18:59 Intake Total 1200 Balance 1200 - Medications Medications: Current Medications Albuterol/Ipratropium (Duoneb 3 Mg/0.5 Mg (3 Ml) Ud) 3 ml IH RQ4 PRN PRN Reason: Shortness of Breath Last Admin: 08/03/18 08:06 Dose: 3 ml Bupropion HCl (Wellbutrin) 75 mg PO DAILY [facility] Last Admin: 08/03/18 09:32 Dose: 75 mg Colchicine (Colocrys) 0.6 mg PO BID [facility] Last Admin: 08/03/18 09:31 Dose: 0.6 mg Cyclobenzaprine HCl (Flexeril) 5 mg PO TID [facility] Last Admin: 08/03/18 09:31 Dose: 5 mg Diazepam (Valium) 10 mg PO BID PRN PRN Reason: Anxiety Last Admin: 08/03/18 01:33 Dose: 10 mg Diltiazem HCl (Cardizem Cd) 120 mg PO DAILY [facility] Last Admin: 08/03/18 09:30 Dose: Not Given Furosemide (Lasix) 20 mg PO DAILY [facility] Last Admin: 08/03/18 09:34 Dose: Not Given Gabapentin (Neurontin) 300 mg PO HS [facility] Last Admin: 08/02/18 22:48 Dose: 300 mg Glipizide (Glucotrol) 10 mg PO BID [facility] Last Admin: 08/03/18 09:34 Dose: 10 mg Hydrocortisone (Cortef) 20 mg PO TID [facility] Last Admin: 08/03/18 09:30 Dose: 20 mg Sodium Chloride (Sodium Chloride 0.45%) 1,000 mls @ 100 mls/hr IV .Q10H [facility] Last Admin: 08/02/18 19:30 Dose: Not Given Insulin Aspart (Novolog) 0 unit SC [facility]; Protocol Last Admin: 08/03/18 08:33 Dose: 4 u Levothyroxine Sodium (Synthroid) 100 mcg PO DAILY@0630 [facility] Last Admin: 08/03/18 06:27 Dose: 100 mcg Lisinopril (Zestril) 10 mg PO DAILY [facility] Last Admin: 08/03/18 09:35 Dose: Not Given Metoprolol Tartrate (Lopressor) 50 mg PO BID [facility] Last Admin: 08/03/18 09:35 Dose: Not Given Oxycodone/Acetaminophen (Percocet 5/325 Mg Tab) 1 tab PO Q4H PRN PRN Reason: Pain, moderate (4-7) Stop: 08/04/18 23:27 Last Admin: 08/03/18 06:27 Dose: 1 tab Pantoprazole Sodium (Protonix Ec Tab) 40 mg PO DAILY [facility] Last Admin: 08/03/18 09:33 Dose: 40 mg Rivaroxaban (Xarelto) 20 mg PO DAILY [facility] Last Admin: 08/03/18 09:30 Dose: 20 mg Sitagliptin Phosphate (Januvia) 100 mg PO DAILY [facility] Last Admin: 08/03/18 09:33 Dose: 100 mg - Labs Labs: 08/03/18 06:34 08/03/18 06:34 PT 19.9 SECONDS (9.7-12.2) H 08/01/18 21:06 INR 1.8 08/01/18 21:06 APTT 32 SECONDS (21-34) 08/01/18 21:06 - Constitutional Appears: Well, No Acute Distress - Extremities Exam Additional comments: knee immob intact patient complains of TTP to fracture site prox tibia, as well as ankle and foot, generalized. (Says no pain prior to fall) sensation intact +Dp/PT pulses - Neurological Exam Neurological Exam: Alert, Awake, Oriented x3 Neuro motor strength exam: Right Lower Extremity: 5 (+ROM ankle/toes full without pain actively) - Psychiatric Exam Psychiatric exam: Normal Affect, Normal Mood - Skin Skin Exam: Dry, Intact, Warm Additional comments: +ecchymosis ant tibia and around ankle Assessment and Plan (1) Closed fracture of right proximal tibia Assessment & Plan: non operative per Dr. Hernandez knee immobilizer, bulky dressing at all times strict NWB PT/OT VTE proph d/c planning pain medication prn elevation/ice PT/OT appreciated plain films appreciated, severe DJD of knee noted as well d/w Dr. Hernandez, agrees with above Status: Acute (2) Ankle pain, right Assessment & Plan: patient with acute right ankle pain ?AVN of talus and calcaneous noted on CT, MRI ordered, but patient did not complain of ankle pain prior to fall will also get plain xrays, CT appreciated including tib fib and midfoot, no acu te fracture appreciated patient NWB RLE PT/OT VTE proph Status: Acute Radiology Interpretation - Shell Grader Shell Grader:: Radiologist - Notes: Notes:: tient Name / ID : STEPHANIE MONROY / [id number] Exam Date : 08/01/2018 21:30:20 ( Approved ) Study Comment : Sex / Age : F / 63Y Creator : Chong Schofield MD Dictator : Chong Schofield MD Ribbon Lap Machine Tender : Highway Inspector : Chong Schofield MD Approver2 : Report Date : 08/02/2018 12:07:27 My Comment : CT right lower extremity HISTORY: Fracture. COMPARISON: None available. Technique: Multiple contiguous axial images were performed through the right lower extremity including the right knee, tibia and fibula, and foot without the use of intravenous contrast. Subsequently, sagittal and coronal reformatted images were obtained. Findings: Please note given the large field of view, evaluation of the osseous structures is markedly limited, particularly at the level of the foot. If there is concern for osseous abnormality or fracture at the level of the foot, dedicated repeat foot and ankle CT or MR is recommended for further evaluation. Prominent diffuse osteopenia. Transverse oblique fracture deformity through the metaphysis of the proximal tibia. Severe medial and patellofemoral compartment joint space narrowing of the femorotibial joint space. Cortical irregularity at the level of the posterior midline and lateral proximal tibia at the articular surface suggestive for chronic trauma. If there is concern for acute osseous injury, correlation with MRI is recommended. Marked heterotopic bone formation with adjacent prominent loose osteochondral bodies and or osteophytes noted at the posterior aspect of the lateral proximal tibia and tibial plateau which may be related to chronic degenerative change given the well corticated margins. This may be better evaluated with a knee MRI if clinically indicated or if there is concern for acute osseous injury at this level. Small suprapatellar joint effusion. Vascular calcifications. Prominent focal area of increased sclerosis noted within the medullary cavity of the distal tibia extending to the tibiotalar joint space suggestive for focal avascular necrosis. Again evaluation of the foot is markedly limited and correlation with dedicated CT of the foot and ankle is recommended for further evaluation if clinically indicated. Degenerative changes at the talonavicular joint space. Diffuse osteopenia. Curvilinear sclerosis at the articular surface of the talar dome also concerning for avascular necrosis. There may be some subchondral flattening. Correlation with MRI may be helpful. Medial subluxation of the patella. Patchy sclerosis seen within the posterior calcaneus may represent focal avascular necrosis. Prominent vascular calcifications. Reticulation and edema seen within the soft tissues adjacent to the calcaneus. Clinical correlation. Impression: 1. Transverse oblique fracture deformity through the metaphysis of the proximal tibia. 2. Prominent focal area of increased sclerosis noted within the medullary cavity of the distal tibia extending to the tibiotalar joint space suggestive for focal avascular necrosis. Evaluation of the foot is markedly limited and correlation with dedicated CT of the foot and ankle is recommended for further evaluation if clinically indicated. 3. Curvilinear sclerosis at the articular surface of the talar dome also concerning for avascular necrosis. There may be some subchondral flattening. Correlation with MRI may be helpful. 4. Severe medial and patellofemoral compartment joint space narrowing of the femorotibial joint space. Cortical irregularity at the level of the posterior midline and lateral proximal tibia at the articular surface suggestive for chronic trauma. If there is concern for acute osseous injury, correlation with MRI is recommended. 5. Marked heterotopic bone formation with adjacent prominent loose osteochondral bodies and or osteophytes noted at the posterior aspect of the lateral proximal tibia and tibial plateau which may be related to chronic degenerative change given the well corticated margins. This may be better evaluated with a knee MRI if clinically indicated or if there is concern for acute osseous injury at this level. 5. Small suprapatellar joint effusion. A preliminary report was generated at 10:20 p.m. on 08/01/[address] Lobo Lucas from [facility]. - Radiology Interpretation #2 Interpretation: atient Name / ID : STEPHANIE MONROY / [id number] Exam Date : 08/02/2018 12:39:28 ( Approved ) Study Comment : Sex / Age : F / 63Y Creator : Gissel Jade Dictator : Gissel Jade Ribbon Lap Machine Tender : Highway Inspector : Gissel Jade Approver2 : Report Date : 08/02/2018 13:56:57 My Comment : Date of service: 08/02/2018 PROCEDURE: Right Knee Radiographs. HISTORY: prox tib fx COMPARISON: None. FINDINGS: BONES: And a mostly horizontal minimally comminuted fracture of the proximal tibial metaphysis is noted. There is osseous hypertrophy projecting over the medial tibial spine and epiphysis in this area and is difficult to completely exclude any vertical component of a possible fracture line extending to the articular surface. An overlying val for stabilization is in place. And is also confounding posterior vascular calcifications present. Intra-articular extension is however believed not likely present JOINTS: Tricompartmental osteoarthrosis medial femoral tibial compartment most notable. JOINT EFFUSION: Minimal suprapatellar joint effusion possible. OTHER FINDINGS: Atherosclerotic vascular calcifications present. IMPRESSION: Nondisplaced mostly horizontally oriented tibial metaphyseal comminuted fracture lines-as referenced above. Background tricompartmental osteoarthrosis. Atherosclerotic vascular calcifications. - Radiology Interpretation #3 Interpretation: atient Name / ID : STEPHANIE MONROY / [id number] Exam Date : 08/02/2018 12:37:08 ( Approved ) Study Comment : Sex / Age : F / 63Y Creator : Gissel Jade Dictator : Gissel Jade Ribbon Lap Machine Tender : Highway Inspector : Gissel Jade Approver2 : Report Date : 08/02/2018 14:15:45 My Comment : Date of service: 08/02/2018 PROCEDURE: Radiographs of the right tibia and fibula. HISTORY: prox tib fib fx COMPARISON: None available TECHNIQUE: Frontal and lateral views obtained. FINDINGS: BONES: A comminuted nondisplaced proximal tibial metaphyseal fracture is present. No gross intra-articular extension is seen. However assessment of this is com bounded by the osseous hypertrophy in the overlying fixation rods in place. Intra-articular extension is doubted but not entirely excluded. JOINT SPACES: Knee joint arthrosis. No significant appearing ankle joint arthrosis. Given the osseous hypertrophic changes projecting over the posterior knee-concomitant posterior intra-articular loose body is a consideration. OTHER FINDINGS: Atherosclerotic vascular calcifications present. IMPRESSION: Nondisplaced comminuted fracture proximal tibial metaphysis as detailed above. Other findings as above.
--- NOTE | 2018-08-03 14:31 | RAD ---
Date of service: 08/03/2018 PROCEDURE: Right Ankle and foot radiographs. HISTORY: ankle pain after fall COMPARISON: None available. FINDINGS: BONES: No fracture identified. Bones are demineralized. JOINTS: No dislocation seen. Ankle mortise maintained. Talar dome intact SOFT TISSUES: There are vascular calcifications. OTHER FINDINGS: None. IMPRESSION: No fracture or dislocation identified.
--- NOTE | 2018-08-03 14:31 | RAD ---
Date of service: 08/03/2018 PROCEDURE: Right Ankle and foot radiographs. HISTORY: ankle pain after fall COMPARISON: None available. FINDINGS: BONES: No fracture identified. Bones are demineralized. JOINTS: No dislocation seen. Ankle mortise maintained. Talar dome intact SOFT TISSUES: Unremarkable OTHER FINDINGS: None. IMPRESSION: No fracture or dislocation identified.
[2018-08-03] MEDS: Sodium Chloride 0.45% 1,000 ML IV SCH (16:22)
[2018-08-04] MEDS: Oxycodone/Acetaminophen 5/325 mg Tab PO PRN ×4 (03:23→21:54)
[2018-08-04] MEDS: Sodium Chloride 0.45% 1,000 ML IV SCH ×2 (03:25)
[2018-08-04] MEDS: Levothyroxine 100 MCG TAB PO SCH (06:31)
--- NOTE | 2018-08-04 08:09 | CP.PCM.PN ---
Subjective - Date & Time of Evaluation Date of Evaluation: 08/04/18 Time of Evaluation: 08:10 - Subjective Subjective: Patient complaining of knee and ankle pain. No new complaints. Review of Systems - Review of Systems All systems: reviewed and no additional remarkable complaints except - Musculoskeletal Musculoskeletal: As Par HPI Objective - Vital Signs/Intake and Output Vital Signs (last 24 hours): Temp Pulse Resp BP Pulse Ox 98 F 101 H 20 137/82 96 08/04/18 04:57 08/04/18 04:57 08/04/18 04:57 08/04/18 04:57 08/04/18 04:57 Intake and Output: 08/04/18 08/04/18 06:59 18:59 Intake Total 840 Output Total 300 Balance 540 - Medications Medications: Current Medications Albuterol/Ipratropium (Duoneb 3 Mg/0.5 Mg (3 Ml) Ud) 3 ml IH RQ4 PRN PRN Reason: Shortness of Breath Last Admin: 08/03/18 16:03 Dose: 3 ml Bupropion HCl (Wellbutrin) 75 mg PO DAILY [facility] Last Admin: 08/03/18 09:32 Dose: 75 mg Colchicine (Colocrys) 0.6 mg PO BID [facility] Last Admin: 08/03/18 17:46 Dose: 0.6 mg Cyclobenzaprine HCl (Flexeril) 5 mg PO TID [facility] Last Admin: 08/03/18 19:00 Dose: 5 mg Diazepam (Valium) 10 mg PO BID PRN PRN Reason: Anxiety Last Admin: 08/03/18 22:12 Dose: 10 mg Diltiazem HCl (Cardizem Cd) 120 mg PO DAILY [facility] Last Admin: 08/03/18 09:30 Dose: Not Given Furosemide (Lasix) 20 mg PO DAILY [facility] Last Admin: 08/03/18 09:34 Dose: Not Given Gabapentin (Neurontin) 300 mg PO HS [facility] Last Admin: 08/03/18 22:12 Dose: 300 mg Glipizide (Glucotrol) 10 mg PO BID [facility] Last Admin: 08/03/18 17:46 Dose: 10 mg Hydrocortisone (Cortef) 20 mg PO TID [facility] Last Admin: 08/03/18 17:46 Dose: 20 mg Sodium Chloride (Sodium Chloride 0.45%) 1,000 mls @ 100 mls/hr IV .Q10H [facility] Last Admin: 08/04/18 03:25 Dose: 100 mls/hr Insulin Aspart (Novolog) 0 unit SC ACHS [facility]; Protocol Last Admin: 08/03/18 22:13 Dose: 3 u Levothyroxine Sodium (Synthroid) 100 mcg PO DAILY@0630 [facility] Last Admin: 08/04/18 06:31 Dose: 100 mcg Lisinopril (Zestril) 10 mg PO DAILY [facility] Last Admin: 08/03/18 09:35 Dose: Not Given Metoprolol Tartrate (Lopressor) 50 mg PO BID [facility] Last Admin: 08/03/18 17:46 Dose: 50 mg Oxycodone/Acetaminophen (Percocet 5/325 Mg Tab) 1 tab PO Q4H PRN PRN Reason: Pain, moderate (4-7) Stop: 08/04/18 23:27 Last Admin: 08/04/18 03:23 Dose: 1 tab Pantoprazole Sodium (Protonix Ec Tab) 40 mg PO DAILY [facility] Last Admin: 08/03/18 09:33 Dose: 40 mg Rivaroxaban (Xarelto) 20 mg PO DAILY [facility] Last Admin: 08/03/18 09:30 Dose: 20 mg Sitagliptin Phosphate (Januvia) 100 mg PO DAILY [facility] Last Admin: 08/03/18 09:33 Dose: 100 mg - Labs Labs: 08/03/18 06:34 08/03/18 06:34 PT 19.9 SECONDS (9.7-12.2) H 08/01/18 21:06 INR 1.8 08/01/18 21:06 APTT 32 SECONDS (21-34) 08/01/18 21:06 - Constitutional Appears: Well, No Acute Distress - Respiratory Exam Respiratory Exam: NORMAL BREATHING PATTERN - Extremities Exam Additional comments: +DP/PT pulses +ROM ankle/toes - Neurological Exam Neurological Exam: Alert, Awake Neuro motor strength exam: Right Lower Extremity: 5 - Psychiatric Exam Psychiatric exam: Normal Mood - Skin Skin Exam: Dry, Intact, Warm Assessment and Plan (1) Closed fracture of right proximal tibia Assessment & Plan: non operative per Dr. Hernandez knee immobilizer, bulky dressing at all times strict NWB PT/OT VTE proph d/c planning pain medication prn elevation/ice PT/OT appreciated plain films appreciated, severe DJD of knee noted as well d/w Dr. Hernandez, agrees with above Status: Acute (2) Ankle pain, right Assessment & Plan: xrays of foot and ankle negative awaiting MRI Status: Acute Radiology Interpretation - Radiology Interpretation #2 Interpretation: Patient Name / ID : STEPHANIE MONROY / [id number] Exam Date : 08/03/2018 13:16:12 ( Approved ) Study Comment : Sex / Age : F / 63Y Creator : Alex Diaz MD Dictator : Alex Diaz MD Runner On : Land Use Planner : Alex Diaz MD Approver2 : Report Date : 08/03/2018 14:26:06 My Comment : Date of service: 08/03/2018 PROCEDURE: Right Ankle and foot radiographs. HISTORY: ankle pain after fall COMPARISON: None available. FINDINGS: BONES: No fracture identified. Bones are demineralized. JOINTS: No dislocation seen. Ankle mortise maintained. Talar dome intact SOFT TISSUES: There are vascular calcifications. OTHER FINDINGS: None. IMPRESSION: No fracture or dislocation identified. atient Name / ID : STEPHANIE MONROY / [id number] Exam Date : 08/03/2018 13:16:12 ( Approved ) Study Comment : Sex / Age : F / 63Y Creator : Alex Diaz MD Dictator : Alex Diaz MD Runner On : Land Use Planner : Alex Diaz MD Approver2 : Report Date : 08/03/2018 14:25:36 My Comment : Date of service: 08/03/2018 PROCEDURE: Right Ankle and foot radiographs. HISTORY: ankle pain after fall COMPARISON: None available. FINDINGS: BONES: No fracture identified. Bones are demineralized. JOINTS: No dislocation seen. Ankle mortise maintained. Talar dome intact SOFT TISSUES: Unremarkable OTHER FINDINGS: None.
--- NOTE | 2018-08-04 09:58 | CP.PCM.PN ---
Subjective - Date & Time of Evaluation Date of Evaluation: 08/04/18 Time of Evaluation: 07:00 - Subjective Subjective: PGY-[address] Gutierres Patient seen and examined at bedside and in no acute distress. Patient has right knee and ankle pain. Patient denies any other complaints. Patient denies headache, chest pain, abdominal pain, nausea, vomiting, constipation, or diarrhea. Objective - Vital Signs/Intake and Output Vital Signs (last 24 hours): Temp Pulse Resp BP Pulse Ox 98.2 F 101 H 20 167/79 H 94 L 08/04/18 08:51 08/04/18 08:51 08/04/18 08:51 08/04/18 08:51 08/04/18 08:51 Intake and Output: 08/04/18 08/04/18 06:59 18:59 Intake Total 840 Output Total 300 Balance 540 - Medications Medications: Current Medications Albuterol/Ipratropium (Duoneb 3 Mg/0.5 Mg (3 Ml) Ud) 3 ml IH RQ4 PRN PRN Reason: Shortness of Breath Last Admin: 08/03/18 16:03 Dose: 3 ml Bupropion HCl (Wellbutrin) 75 mg PO DAILY [facility] Last Admin: 08/03/18 09:32 Dose: 75 mg Colchicine (Colocrys) 0.6 mg PO BID [facility] Last Admin: 08/03/18 17:46 Dose: 0.6 mg Cyclobenzaprine HCl (Flexeril) 5 mg PO TID [facility] Last Admin: 08/03/18 19:00 Dose: 5 mg Diazepam (Valium) 10 mg PO BID PRN PRN Reason: Anxiety Last Admin: 08/03/18 22:12 Dose: 10 mg Diltiazem HCl (Cardizem Cd) 120 mg PO DAILY [facility] [place] Last Admin: 08/03/18 09:30 Dose: Not Given Furosemide (Lasix) 20 mg PO DAILY [facility] [place] Last Admin: 08/03/18 09:34 Dose: Not Given Gabapentin (Neurontin) 300 mg PO HS [facility] [place] Last Admin: 08/03/18 22:12 Dose: 300 mg Glipizide (Glucotrol) 10 mg PO BID [facility] Last Admin: 08/03/18 17:46 Dose: 10 mg Hydrocortisone (Cortef) 20 mg PO TID [facility] [place] Last Admin: 08/03/18 17:46 Dose: 20 mg Sodium Chloride (Sodium Chloride 0.45%) 1,000 mls @ 100 mls/hr IV .Q10H [facility] [place] Last Admin: 08/04/18 03:25 Dose: 100 mls/hr Insulin Aspart (Novolog) 0 unit SC ACHS [facility] [place]; Protocol Last Admin: 08/03/18 22:13 Dose: 3 u Levothyroxine Sodium (Synthroid) 100 mcg PO DAILY@0630 [facility] [place] Last Admin: 08/04/18 06:31 Dose: 100 mcg Lisinopril (Zestril) 10 mg PO DAILY [facility] [place] Last Admin: 08/03/18 09:35 Dose: Not Given Metoprolol Tartrate (Lopressor) 50 mg PO BID [facility] Last Admin: 08/03/18 17:46 Dose: 50 mg Oxycodone/Acetaminophen (Percocet 5/325 Mg Tab) 1 tab PO Q4H PRN PRN Reason: Pain, moderate (4-7) Stop: 08/04/18 23:27 Last Admin: 08/04/18 03:23 Dose: 1 tab Pantoprazole Sodium (Protonix Ec Tab) 40 mg PO DAILY [facility] [place] Last Admin: 08/03/18 09:33 Dose: 40 mg Rivaroxaban (Xarelto) 20 mg PO DAILY [facility] Last Admin: 08/03/18 09:30 Dose: 20 mg Sitagliptin Phosphate (Januvia) 100 mg PO DAILY [facility] Last Admin: 08/03/18 09:33 Dose: 100 mg - Labs Labs: 08/03/18 06:34 08/03/18 06:34 PT 19.9 SECONDS (9.7-12.2) H 08/01/18 21:06 INR 1.8 08/01/18 21:06 APTT 32 SECONDS (21-34) 08/01/18 21:06 - Additional Findings Additional findings: - Constitutional Appears: Non-toxic, No Acute Distress - Head Exam Head Exam: ATRAUMATIC, NORMOCEPHALIC - Eye Exam Eye Exam: Normal appearance - ENT Exam ENT Exam: Mucous Membranes Moist - Neck Exam Neck Exam: absent: Lymphadenopathy, Tenderness - Respiratory Exam Respiratory Exam: Clear to Ausculation Bilateral, NORMAL BREATHING PATTERN. absent: Accessory Muscle Use, Rales, Rhonchi, Wheezes, Respiratory Distress - Cardiovascular Exam Cardiovascular Exam: Tachycardia - GI/Abdominal Exam GI & Abdominal Exam: Soft, Normal Bowel Sounds. absent: Distended, Firm, Guarding, Rigid, Tenderness - Extremities Exam Additional comments: right lower extremity with brace on, sensory and motor intact. - Neurological Exam Neurological Exam: Alert, Oriented x3 Additional comments: sensation intact of toe of right foot. - Psychiatric Exam Psychiatric exam: Depressed - Skin Skin Exam: Dry, Warm Assessment and Plan - Assessment and Plan (Free Text) Assessment: Right proximal tibia fracture, nondisplaced - Orthopedic consulted, Dr. Ridley * No surgical intervention at this time - xray shows nondisplaced comminuted fracture proximal tibial metaphysis - Knee immobilizer, NWB for 8 weeks - Percocet Q4 prn for pain - PT eval Right ankle pain -ankle xray: no fracture or dislocation identified -foot right xray: no fracture or dislocation identified -f/u right LE MRI Chronic Diastolic Congestive Heart Failure - Stable - Last echo 2017 showed Grade III reversible restrictive diastolic dysfunction, EF 55% - Lasix 20mg PO daily Hypertension - continue to monitor - Lisinopril 10mg PO daily - Metoprolol 50mg PO BID - Cardizem 120mg PO daily Diabetes Mellitus - Accuchecks, Insulin sliding scale - Hypoglycemia protocol - HgA1c 9.3 (01/2018) - Januvia 100mg PO daily - Glipizide 10mg PO BID - Gabapentin 300mg PO TID Fibromyalgia w/ severe back pain - Stable - Diazepam 5mg PO PRN - Flexeril 5mg PO TID - Percocet 5/325mg 1 tab Q6H Adrenal Insufficiency - Hydrocortisone 20mg PO TID Hypothyroidism - Synthroid 100mcg PO daily History of DVT/PE - Xarelto 20mg PO daily Gout - Colchicine 0.6mg BID Depression - Wellbutrin 75mg Prophylactic Measures - Protonix 40mg PO daily, Probiotics - Xarelto 20mg PO daily - PT DISPO: Patient is medically stable for discharge to [facility]. Pending placement. Case discussed with Dr. Gutierres
[2018-08-04] MEDS: diltiaZEM 120 mg/24 Hours CD Cap PO SCH (10:56)
[2018-08-04] MEDS: Pantoprazole 40 mg EC Tab PO SCH (10:56)
[2018-08-04] MEDS: (Novolog) Insulin Aspart, Recombinant 100 u/ml 10 ml vial SC SCH ×4 (10:58→21:51)
[2018-08-05] MEDS ORDERED: (Novolin R) Insulin Human Regular 100 units/ml vial SC ONE (02:24)
[2018-08-05] MEDS: Levothyroxine 100 MCG TAB PO SCH (05:47)
[2018-08-05] MEDS: (Novolog) Insulin Aspart, Recombinant 100 u/ml 10 ml vial SC SCH ×4 (08:35→21:46)
[2018-08-05] MEDS: diltiaZEM 120 mg/24 Hours CD Cap PO SCH (10:05)
[2018-08-05] MEDS: Pantoprazole 40 mg EC Tab PO SCH (10:05)
--- NOTE | 2018-08-05 10:06 | CP.PCM.PN ---
Subjective - Date & Time of Evaluation Date of Evaluation: 08/05/18 Time of Evaluation: 10:06 - Subjective Subjective: PGY2 Medicine Note for Dr. Gutierres Patient seen and examined this morning at bedside. No acute events overnight. Patient is resting comfortably in bed without any complaints. She is still pending placement to [facility]. Objective - Vital Signs/Intake and Output Vital Signs (last 24 hours): Temp Pulse Resp BP Pulse Ox 97.6 F 97 H 20 118/78 95 08/05/18 08:33 08/05/18 08:33 08/05/18 08:33 08/05/18 08:33 08/05/18 08:33 Intake and Output: 08/05/18 08/05/18 06:59 18:59 Output Total 700 Balance -700 - Medications Medications: Current Medications Albuterol/Ipratropium (Duoneb 3 Mg/0.5 Mg (3 Ml) Ud) 3 ml IH RQ4 PRN PRN Reason: Shortness of Breath Last Admin: 08/03/18 16:03 Dose: 3 ml Bupropion HCl (Wellbutrin) 75 mg PO DAILY [facility] Last Admin: 08/04/18 10:57 Dose: 75 mg Colchicine (Colocrys) 0.6 mg PO BID [facility] Last Admin: 08/04/18 18:10 Dose: 0.6 mg Cyclobenzaprine HCl (Flexeril) 5 mg PO TID [facility] Last Admin: 08/04/18 18:10 Dose: 5 mg Diazepam (Valium) 10 mg PO BID PRN PRN Reason: Anxiety Last Admin: 08/04/18 21:57 Dose: 10 mg Diltiazem HCl (Cardizem Cd) 120 mg PO DAILY [facility] Last Admin: 08/04/18 10:56 Dose: 120 mg Furosemide (Lasix) 20 mg PO DAILY [facility] Last Admin: 08/04/18 10:56 Dose: 20 mg Gabapentin (Neurontin) 300 mg PO HS [facility] Last Admin: 08/04/18 21:18 Dose: 300 mg Glipizide (Glucotrol) 10 mg PO BID [facility] Last Admin: 08/04/18 18:11 Dose: 10 mg Hydrocortisone (Cortef) 20 mg PO TID [facility] Last Admin: 08/04/18 18:10 Dose: 20 mg Insulin Aspart (Novolog) 0 unit [facility]; Protocol Last Admin: 08/04/18 21:51 Dose: 2 u Levothyroxine Sodium (Synthroid) 100 mcg PO DAILY@0630 [facility] Last Admin: 08/05/18 05:47 Dose: 100 mcg Lisinopril (Zestril) 10 mg PO DAILY [facility] Last Admin: 08/04/18 10:56 Dose: 10 mg Metoprolol Tartrate (Lopressor) 50 mg PO BID [facility] Last Admin: 08/04/18 18:10 Dose: 50 mg Pantoprazole Sodium (Protonix Ec Tab) 40 mg PO DAILY [facility] Last Admin: 08/04/18 10:56 Dose: 40 mg Rivaroxaban (Xarelto) 20 mg PO DAILY [facility] Last Admin: 08/04/18 10:57 Dose: 20 mg Sitagliptin Phosphate (Januvia) 100 mg PO DAILY [facility] Last Admin: 08/04/18 10:56 Dose: 100 mg - Labs Labs: 08/03/18 06:34 08/03/18 06:34 PT 19.9 SECONDS (9.7-12.2) H 08/01/18 21:06 INR 1.8 08/01/18 21:06 APTT 32 SECONDS (21-34) 08/01/18 21:06 - Additional Findings Additional findings: - Constitutional Appears: Non-toxic, No Acute Distress - Head Exam Head Exam: ATRAUMATIC, NORMOCEPHALIC - Eye Exam Eye Exam: Normal appearance - ENT Exam ENT Exam: Mucous Membranes Moist - Neck Exam Neck Exam: absent: Lymphadenopathy, Tenderness - Respiratory Exam Respiratory Exam: Clear to Ausculation Bilateral, NORMAL BREATHING PATTERN. absent: Accessory Muscle Use, Rales, Rhonchi, Wheezes, Respiratory Distress - Cardiovascular Exam Cardiovascular Exam: Tachycardia - GI/Abdominal Exam GI & Abdominal Exam: Soft, Normal Bowel Sounds. absent: Distended, Firm, G uarding, Rigid, Tenderness - Extremities Exam Additional comments: right lower extremity with brace on, sensory and motor intact. - Neurological Exam Neurological Exam: Alert, Oriented x3 Additional comments: sensation intact of toe of right foot. - Psychiatric Exam Psychiatric exam: Depressed - Skin Skin Exam: Dry, Warm Assessment and Plan - Assessment and Plan (Free Text) Plan: Right proximal tibia fracture, nondisplaced - Orthopedic consulted, Dr. Ridley * No surgical intervention at this time - xray shows nondisplaced comminuted fracture proximal tibial metaphysis - Knee immobilizer, NWB for 8 weeks - Percocet Q4 prn for pain - PT eval Right ankle pain -ankle xray: no fracture or dislocation identified -foot right xray: no fracture or dislocation identified -f/u right LE MRI Chronic Diastolic Congestive Heart Failure - Stable - Last echo 2017 showed Grade III reversible restrictive diastolic dysfunction, EF 55% - Lasix 20mg PO daily Hypertension - continue to monitor - Lisinopril 10mg PO daily - Metoprolol 50mg PO BID - Cardizem 120mg PO daily Diabetes Mellitus - Accuchecks, Insulin sliding scale - Hypoglycemia protocol - HgA1c 9.3 (01/2018) - Januvia 100mg PO daily - Glipizide 10mg PO BID - Gabapentin 300mg PO TID Fibromyalgia w/ severe back pain - Stable - Diazepam 5mg PO PRN - Flexeril 5mg PO TID - Percocet 5/325mg 1 tab Q6H Adrenal Insufficiency - Hydrocortisone 20mg PO TID Hypothyroidism - Synthroid 100mcg PO daily History of DVT/PE - Xarelto 20mg PO daily Gout - Colchicine 0.6mg BID Depression - Wellbutrin 75mg Prophylactic Measures - Protonix 40mg PO daily, Probiotics - Xarelto 20mg PO daily - PT DISPO: Patient is medically stable for discharge to [facility] Pending placement at [facility]. Case discussed with Dr. Gutierres
[2018-08-05] MEDS: Oxycodone/Acetaminophen 5/325 mg Tab PO PRN ×2 (17:21→21:56)
[2018-08-06] MEDS: Oxycodone/Acetaminophen 5/325 mg Tab PO PRN ×3 (05:30→21:16)
[2018-08-06] MEDS: Levothyroxine 100 MCG TAB PO SCH (05:30)
[2018-08-06] MEDS: (Novolog) Insulin Aspart, Recombinant 100 u/ml 10 ml vial SC SCH ×4 (08:25→21:16)
[2018-08-06] MEDS: Pantoprazole 40 mg EC Tab PO SCH (10:35)
[2018-08-06] MEDS: diltiaZEM 120 mg/24 Hours CD Cap PO SCH (10:35)
[2018-08-07] MEDS: Levothyroxine 100 MCG TAB PO SCH (06:16)
[2018-08-07] MEDS: Oxycodone/Acetaminophen 5/325 mg Tab PO PRN (08:39)
[2018-08-07] MEDS: (Novolog) Insulin Aspart, Recombinant 100 u/ml 10 ml vial SC SCH ×4 (08:39→21:14)
[2018-08-07] MEDS: diltiaZEM 120 mg/24 Hours CD Cap PO SCH (11:00)
[2018-08-07] MEDS: Pantoprazole 40 mg EC Tab PO SCH (11:00)
[2018-08-08] MEDS: Oxycodone/Acetaminophen 5/325 mg Tab PO PRN ×3 (00:29→19:48)
[2018-08-08] MEDS: Levothyroxine 100 MCG TAB PO SCH (05:59)
[2018-08-08] MEDS: (Novolog) Insulin Aspart, Recombinant 100 u/ml 10 ml vial SC SCH ×4 (08:32→22:16)
[2018-08-08] MEDS: diltiaZEM 120 mg/24 Hours CD Cap PO SCH (10:32)
[2018-08-08] MEDS: Pantoprazole 40 mg EC Tab PO SCH (10:32)
--- NOTE | 2018-08-08 11:41 | CP.PCM.PN ---
Subjective - Date & Time of Evaluation Date of Evaluation: 08/08/18 Time of Evaluation: 11:41 - Subjective Subjective: PGY2 Medicine Note for Dr. Gutierres Patient seen and examined this morning at bedside. No acute events overnight. Patient is pending discharge to [facility], awaiting authorization from her insurance company. She is resting comfortably in bed without any complaints at this time. Objective - Vital Signs/Intake and Output Vital Signs (last 24 hours): Temp Pulse Resp BP Pulse Ox 98.0 F 101 H 18 132/82 95 08/08/18 07:50 08/08/18 07:50 08/08/18 07:50 08/08/18 10:31 08/08/18 07:50 Intake and Output: 08/08/18 08/08/18 06:59 18:59 Intake Total 320 Balance 320 - Medications Medications: Current Medications Bupropion HCl (Wellbutrin) 75 mg PO DAILY [facility] Last Admin: 08/08/18 10:32 Dose: 75 mg Colchicine (Colocrys) 0.6 mg PO BID [facility] Last Admin: 08/08/18 10:32 Dose: 0.6 mg Cyclobenzaprine HCl (Flexeril) 5 mg PO TID [facility] Last Admin: 08/08/18 10:33 Dose: 5 mg Diazepam (Valium) 10 mg PO BID PRN PRN Reason: Anxiety Last Admin: 08/08/18 10:44 Dose: 10 mg Diltiazem HCl (Cardizem Cd) 120 mg PO DAILY [facility] Last Admin: 08/08/18 10:32 Dose: 120 mg Furosemide (Lasix) 20 mg PO DAILY [facility] Last Admin: 08/08/18 10:31 Dose: 20 mg Gabapentin (Neurontin) 300 mg PO HS [facility] Last Admin: 08/07/18 21:08 Dose: 300 mg Glipizide (Glucotrol) 10 mg PO BID [facility] Last Admin: 08/08/18 10:31 Dose: 10 mg Hydrocortisone (Cortef) 20 mg PO TID [facility] Last Admin: 08/08/18 10:33 Dose: 20 mg Insulin Aspart (Novolog) 0 unit [facility]; Protocol Last Admin: 08/08/18 08:32 Dose: 10 u Levothyroxine Sodium (Synthroid) 100 mcg PO DAILY@0630 [facility] Last Admin: 08/08/18 05:59 Dose: 100 mcg Lisinopril (Zestril) 10 mg PO DAILY [facility] Last Admin: 08/08/18 10:31 Dose: 10 mg Metoprolol Tartrate (Lopressor) 50 mg PO BID [facility] Last Admin: 08/08/18 10:31 Dose: 50 mg Oxycodone/Acetaminophen (Percocet 5/325 Mg Tab) 1 tab PO Q4H PRN PRN Reason: Pain, moderate (4-7) Stop: 08/08/18 17:01 Last Admin: 08/08/18 10:28 Dose: 1 tab Pantoprazole Sodium (Protonix Ec Tab) 40 mg PO DAILY [facility] Last Admin: 08/08/18 10:32 Dose: 40 mg Rivaroxaban (Xarelto) 20 mg PO DAILY [facility] Last Admin: 08/08/18 10:35 Dose: 20 mg Sitagliptin Phosphate (Januvia) 100 mg PO DAILY [facility] Last Admin: 08/08/18 10:31 Dose: 100 mg - Labs Labs: 08/03/18 06:34 08/03/18 06:34 PT 19.9 SECONDS (9.7-12.2) H 08/01/18 21:06 INR 1.8 08/01/18 21:06 APTT 32 SECONDS (21-34) 08/01/18 21:06 - Additional Findings Additional findings: - Constitutional Appears: Non-toxic, No Acute Distress - Head Exam Head Exam: ATRAUMATIC, NORMOCEPHALIC - Eye Exam Eye Exam: Normal appearance - ENT Exam ENT Exam: Mucous Membranes Moist - Neck Exam Neck Exam: absent: Lymphadenopathy, Tenderness - Respiratory Exam Respiratory Exam: Clear to Ausculation Bilateral, NORMAL BREATHING PATTERN. absent: Accessory Muscle Use, Rales, Rhonchi, Wheezes, Respiratory Distress - Cardiovascular Exam Cardiovascular Exam: Tachycardia - GI/Abdominal Exam GI & Abdominal Exam: Soft, Normal Bowel Sounds. absent: Distended, Firm, Guarding, Rigid, Tenderness - Extremities Exam Additional comments: right lower extremity with brace on. sensation intact. - Neurological Exam Neurological Exam: Alert, Oriented x3 Additional comments: sensation intact of toe of right foot. - Psychiatric Exam Psychiatric exam: Depressed - Skin Skin Exam: Dry, Warm Assessment and Plan - Assessment and Plan (Free Text) Plan: Right proximal tibia fracture, nondisplaced - Orthopedic consulted, Dr. Ridley * No surgical intervention at this time - xray shows nondisplaced comminuted fracture proximal tibial metaphysis - Knee immobilizer, NWB for 8 weeks - Percocet Q4 prn for pain - PT eval Right ankle pain -ankle xray: no fracture or dislocation identified -foot right xray: no fracture or dislocation identified -f/u right LE MRI Chronic Diastolic Congestive Heart Failure - Stable - Last echo 2017 showed Grade III reversible restrictive diastolic dysfunction, EF 55% - Lasix 20mg PO daily Hypertension - continue to monitor - Lisinopril 10mg PO daily - Metoprolol 50mg PO BID - Cardizem 120mg PO daily Diabetes Mellitus - Accuchecks, Insulin sliding scale - Hypoglycemia protocol - HgA1c 9.3 (01/2018) - Januvia 100mg PO daily - Glipizide 10mg PO BID - Gabapentin 300mg PO TID Fibromyalgia w/ severe back pain - Stable - Diazepam 5mg PO PRN - Flexeril 5mg PO TID - Percocet 5/325mg 1 tab Q6H Adrenal Insufficiency - Hydrocortisone 20mg PO TID Hypothyroidism - Synthroid 100mcg PO daily History of DVT/PE - Xarelto 20mg PO daily Gout - Colchicine 0.6mg BID Depression - Wellbutrin 75mg Prophylactic Measures - Protonix 40mg PO daily, Probiotics - Xarelto 20mg PO daily - PT DISPO: Patient is medically stable for discharge to [facility]. Pending placement at [facility]. No updates at this time. Patient is still pending authorization. Case discussed with Dr. Nenita Luke Kaye PGY2
--- NOTE | 2018-08-08 16:04 | CP.PCM.PN ---
Subjective - Date & Time of Evaluation Date of Evaluation: 08/08/18 Time of Evaluation: 15:00 - Subjective Subjective: Patient seen and examined at bedside comfortable. Pain well controlled. Awaiting [facility] placement. Denies CP/SOB/dizziness/fever. Objective - Vital Signs/Intake and Output Vital Signs (last 24 hours): Temp Pulse Resp BP Pulse Ox 98.0 F 101 H 18 132/82 95 08/08/18 07:50 08/08/18 07:50 08/08/18 07:50 08/08/18 10:31 08/08/18 07:50 Intake and Output: 08/08/18 08/08/18 06:59 18:59 Intake Total 320 Balance 320 - Medications Medications: Current Medications Bupropion HCl (Wellbutrin) 75 mg PO DAILY [facility] Last Admin: 08/08/18 10:32 Dose: 75 mg Colchicine (Colocrys) 0.6 mg PO BID [facility] Last Admin: 08/08/18 10:32 Dose: 0.6 mg Cyclobenzaprine HCl (Flexeril) 5 mg PO TID [facility] Last Admin: 08/08/18 13:20 Dose: 5 mg Diazepam (Valium) 10 mg PO BID PRN PRN Reason: Anxiety Last Admin: 08/08/18 10:44 Dose: 10 mg Diltiazem HCl (Cardizem Cd) 120 mg PO DAILY [facility] Last Admin: 08/08/18 10:32 Dose: 120 mg Furosemide (Lasix) 20 mg PO DAILY [facility] Last Admin: 08/08/18 10:31 Dose: 20 mg Gabapentin (Neurontin) 300 mg PO HS [facility] Last Admin: 08/07/18 21:08 Dose: 300 mg Glipizide (Glucotrol) 10 mg PO BID [facility] Last Admin: 08/08/18 10:31 Dose: 10 mg Hydrocortisone (Cortef) 20 mg PO TID [facility] Last Admin: 08/08/18 13:19 Dose: 20 mg Insulin Aspart (Novolog) 0 unit [facility]; Protocol Last Admin: 08/08/18 12:15 Dose: 6 u Levothyroxine Sodium (Synthroid) 100 mcg PO DAILY@0630 [facility] Last Admin: 08/08/18 05:59 Dose: 100 mcg Lisinopril (Zestril) 10 mg PO DAILY [facility] Last Admin: 08/08/18 10:31 Dose: 10 mg Metoprolol Tartrate (Lopressor) 50 mg PO BID [facility] Last Admin: 08/08/18 10:31 Dose: 50 mg Oxycodone/Acetaminophen (Percocet 5/325 Mg Tab) 1 tab PO Q4H PRN PRN Reason: Pain, moderate (4-7) Stop: 08/08/18 17:01 Last Admin: 08/08/18 10:28 Dose: 1 tab Pantoprazole Sodium (Protonix Ec Tab) 40 mg PO DAILY [facility] Last Admin: 08/08/18 10:32 Dose: 40 mg Rivaroxaban (Xarelto) 20 mg PO DAILY [facility] Last Admin: 08/08/18 10:35 Dose: 20 mg Sitagliptin Phosphate (Januvia) 100 mg PO DAILY [facility] Last Admin: 08/08/18 10:31 Dose: 100 mg - Labs Labs: 08/03/18 06:34 08/03/18 06:34 PT 19.9 SECONDS (9.7-12.2) H 08/01/18 21:06 INR 1.8 08/01/18 21:06 APTT 32 SECONDS (21-34) 08/01/18 21:06 - Extremities Exam Additional comments: R knee: knee immobilizer intact Dressings CDI sensation intact SP/DP/TN motor intact EHL/FHL/TA/G pedal pulses intact comps soft NT b/l Assessment and Plan (1) Closed fracture of right proximal tibia Assessment & Plan: -No acute orthopedic intervention at this time -NWB RLE, strict knee immobilizer, bulky dressings -PT/OT -DVT ppx -orthopedically stable for d/c to [facility] -above d/w Dr. Alvarenga agreement Status: Acute (2) Ankle pain, right Assessment & Plan: -NWB RLE -unable to tolerate MRI Status: Acute
[2018-08-08 16:32] VITALS: RESP 20
[2018-08-09] MEDS: Levothyroxine 100 MCG TAB PO SCH (06:09)
--- NOTE | 2018-08-09 07:33 | CP.PCM.PN ---
Subjective - Date & Time of Evaluation Date of Evaluation: 08/09/18 Time of Evaluation: 07:33 - Subjective Subjective: Progress Note for Dr. Gutierres Patient seen and examined at bedside. Patient had some trouble sleeping at night. Otherwise she has no acute complaints. She is actively using incentive spirometer. Patient is pending discharge to [facility], awaiting authorization from her insurance company. She is resting comfortably in bed without any complaints at this time. Objective - Vital Signs/Intake and Output Vital Signs (last 24 hours): Temp Pulse Resp BP Pulse Ox 97.5 F L 101 H 20 122/78 96 08/08/18 23:20 08/08/18 23:20 08/08/18 23:20 08/08/18 23:20 08/08/18 23:20 Intake and Output: 08/09/18 08/09/18 06:59 18:59 Intake Total 350 Balance 350 - Medications Medications: Current Medications Bupropion HCl (Wellbutrin) 75 mg PO DAILY [facility] Last Admin: 08/08/18 10:32 Dose: 75 mg Colchicine (Colocrys) 0.6 mg PO BID [facility] Last Admin: 08/08/18 18:03 Dose: 0.6 mg Cyclobenzaprine HCl (Flexeril) 5 mg PO TID [facility] Last Admin: 08/08/18 18:04 Dose: 5 mg Diazepam (Valium) 10 mg PO BID PRN PRN Reason: Anxiety Last Admin: 08/08/18 10:44 Dose: 10 mg Diltiazem HCl (Cardizem Cd) 120 mg PO DAILY [facility] Last Admin: 08/08/18 10:32 Dose: 120 mg Furosemide (Lasix) 20 mg PO DAILY [facility] Last Admin: 08/08/18 10:31 Dose: 20 mg Gabapentin (Neurontin) 300 mg PO HS [facility] Last Admin: 08/08/18 22:16 Dose: 300 mg Glipizide (Glucotrol) 10 mg PO BID [facility] Last Admin: 08/08/18 18:03 Dose: 10 mg Hydrocortisone (Cortef) 20 mg PO TID [facility] Last Admin: 08/08/18 18:03 Dose: 20 mg Insulin Aspart (Novolog) 0 unit SC [facility]; Protocol Last Admin: 08/08/18 22:16 Dose: 3 u Levothyroxine Sodium (Synthroid) 100 mcg PO DAILY@0630 [facility] Last Admin: 08/09/18 06:09 Dose: 100 mcg Lisinopril (Zestril) 10 mg PO DAILY [facility] Last Admin: 08/08/18 10:31 Dose: 10 mg Metoprolol Tartrate (Lopressor) 50 mg PO BID [facility] Last Admin: 08/08/18 18:05 Dose: 50 mg Oxycodone/Acetaminophen (Percocet 5/325 Mg Tab) 1 tab PO Q4H PRN PRN Reason: Pain, moderate (4-7) Stop: 08/11/18 19:40 Last Admin: 08/08/18 19:48 Dose: 1 tab Pantoprazole Sodium (Protonix Ec Tab) 40 mg PO DAILY [facility] Last Admin: 08/08/18 10:32 Dose: 40 mg Rivaroxaban (Xarelto) 20 mg PO DAILY [facility] Last Admin: 08/08/18 10:35 Dose: 20 mg Sitagliptin Phosphate (Januvia) 100 mg PO DAILY [facility] Last Admin: 08/08/18 10:31 Dose: 100 mg - Labs Labs: 08/03/18 06:34 08/03/18 06:34 PT 19.9 SECONDS (9.7-12.2) H 08/01/18 21:06 INR 1.8 08/01/18 21:06 APTT 32 SECONDS (21-34) 08/01/18 21:06 - Additional Findings Additional findings: - Constitutional Appears: Non-toxic, No Acute Distress - Head Exam Head Exam: ATRAUMATIC, NORMOCEPHALIC - Eye Exam Eye Exam: Normal appearance - ENT Exam ENT Exam: Mucous Membranes Moist - Neck Exam Neck Exam: absent: Lymphadenopathy, Tenderness - Respiratory Exam Respiratory Exam: Clear to Ausculation Bilateral, NORMAL BREATHING PATTERN. absent: Accessory Muscle Use, Rales, Rhonchi, Wheezes, Respiratory Distress - Cardiovascular Exam Cardiovascular Exam: Tachycardia - GI/Abdominal Exam GI & Abdominal Exam: Soft, Normal Bowel Sounds. absent: Distended, Firm, Guarding, Rigid, Tenderness - Extremities Exam Additional comments: right lower extremity with brace on. sensation intact. - Neurological Exam Neurological Exam: Alert, Oriented x3 Additional comments: sensation intact of toe of right foot. - Psychiatric Exam Psychiatric exam: Depressed - Skin Skin Exam: Dry, Warm Assessment and Plan - Assessment and Plan (Free Text) Assessment: Right proximal tibia fracture, nondisplaced - Orthopedic consulted, Dr. Ridley * No surgical intervention at this time - xray shows nondisplaced comminuted fracture proximal tibial metaphysis - Knee immobilizer, NWB for 8 weeks - Percocet Q4 prn for pain - Incentive Spirometer - PT eval Right ankle pain -ankle xray: no fracture or dislocation identified -foot right xray: no fracture or dislocation identified -f/u right LE MRI Chronic Diastolic Congestive Heart Failure - Stable - Last echo 2016 showed Grade III reversible restrictive diastolic dysfunction, EF 55% - Lasix 20mg PO daily Hypertension - continue to monitor - Lisinopril 10mg PO daily - Metoprolol 50mg PO BID - Cardizem 120mg PO daily Diabetes Mellitus - Accuchecks, Insulin sliding scale - Hypoglycemia protocol - HgA1c 9.3 (01/2018) - Januvia 100mg PO daily - Glipizide 10mg PO BID - Gabapentin 300mg PO TID - Lantus 10 units HS Fibromyalgia w/ severe back pain - Stable - Diazepam 5mg PO PRN - Flexeril 5mg PO TID - Percocet 5/325mg 1 tab Q6H Adrenal Insufficiency - Hydrocortisone 20mg PO TID Hypothyroidism - Synthroid 100mcg PO daily History of DVT/PE - Xarelto 20mg PO daily Gout - Colchicine 0.6mg BID Depression - Wellbutrin 75mg Prophylactic Measures - Protonix 40mg PO daily, Probiotics - Xarelto 20mg PO daily - PT DISPO: Patient is medically stable for discharge to [facility]. Pending placement at [facility], pending authorization. Case discussed with Dr. Gutierres
[2018-08-09] MEDS: (Novolog) Insulin Aspart, Recombinant 100 u/ml 10 ml vial SC SCH ×4 (08:47→21:37)
[2018-08-09] MEDS: diltiaZEM 120 mg/24 Hours CD Cap PO SCH (09:34)
[2018-08-09] MEDS: Pantoprazole 40 mg EC Tab PO SCH (09:35)
--- NOTE | 2018-08-09 14:20 | CP.PCM.PN ---
Subjective - Date & Time of Evaluation Date of Evaluation: 08/09/18 Time of Evaluation: 09:00 - Subjective Subjective: Patient seen sitting in chair, using IS. She says that the pain is better and she is getting stronger. Denies numbness/tingling/CP/SOB/dizziness. Objective - Vital Signs/Intake and Output Vital Signs (last 24 hours): Temp Pulse Resp BP Pulse Ox 97.7 F 119 H 20 115/76 95 08/09/18 08:00 08/09/18 08:00 08/09/18 08:00 08/09/18 09:34 08/09/18 08:00 Intake and Output: 08/09/18 08/09/18 06:59 18:59 Intake Total 350 Output Total 200 Balance 350 -200 - Medications Medications: Current Medications Bupropion HCl (Wellbutrin) 75 mg PO DAILY [facility] Last Admin: 08/09/18 09:35 Dose: 75 mg Colchicine (Colocrys) 0.6 mg PO BID [facility] Last Admin: 08/09/18 09:34 Dose: 0.6 mg Cyclobenzaprine HCl (Flexeril) 5 mg PO TID [facility] Last Admin: 08/09/18 09:35 Dose: 5 mg Diazepam (Valium) 10 mg PO BID PRN PRN Reason: Anxiety Last Admin: 08/09/18 09:32 Dose: 10 mg Diltiazem HCl (Cardizem Cd) 120 mg PO DAILY [facility] Last Admin: 08/09/18 09:34 Dose: 120 mg Furosemide (Lasix) 20 mg PO DAILY [facility] Last Admin: 08/09/18 09:34 Dose: 20 mg Gabapentin (Neurontin) 300 mg PO [facility] Last Admin: 08/08/18 22:16 Dose: 300 mg Glipizide (Glucotrol) 10 mg PO BID [facility] Last Admin: 08/09/18 09:34 Dose: 10 mg Hydrocortisone (Cortef) 20 mg PO TID [facility] Last Admin: 08/09/18 09:35 Dose: 20 mg Insulin Aspart (Novolog) 0 unit SC [facility]; Protocol Last Admin: 08/09/18 13:08 Dose: 10 u Insulin Glargine (Lantus) 10 unit SC [facility] Levothyroxine Sodium (Synthroid) 100 mcg PO DAILY@0630 [facility] Last Admin: 08/09/18 06:09 Dose: 100 mcg Lisinopril (Zestril) 10 mg PO DAILY [facility] Last Admin: 08/09/18 09:34 Dose: 10 mg Metoprolol Tartrate (Lopressor) 50 mg PO BID [facility] Last Admin: 08/09/18 09:43 Dose: 50 mg Oxycodone/Acetaminophen (Percocet 5/325 Mg Tab) 1 tab PO Q4H PRN PRN Reason: Pain, moderate (4-7) Stop: 08/11/18 19:40 Last Admin: 08/08/18 19:48 Dose: 1 tab Pantoprazole Sodium (Protonix Ec Tab) 40 mg PO DAILY [facility] Last Admin: 08/09/18 09:35 Dose: 40 mg Rivaroxaban (Xarelto) 20 mg PO DAILY [facility] Last Admin: 08/09/18 09:35 Dose: 20 mg Sitagliptin Phosphate (Januvia) 100 mg PO DAILY [facility] Last Admin: 08/09/18 09:32 Dose: 100 mg - Labs Labs: 08/03/18 06:34 08/03/18 06:34 PT 19.9 SECONDS (9.7-12.2) H 08/01/18 21:06 INR 1.8 08/01/18 21:06 APTT 32 SECONDS (21-34) 08/01/18 21:06 - Extremities Exam Additional comments: RLE: +ROM ankle/toes, slowly but full ROM ankle, improving. Sensation intact +DP pulse calves soft NT neg homans knee immobilizer intact Assessment and Plan (1) Closed fracture of right proximal tibia Assessment & Plan: non operative per Dr. Hernandez knee immobilizer, bulky dressing at all times strict NWB PT/OT VTE proph d/c planning pain medication prn elevation/ice PT/OT appreciated plain films appreciated, severe DJD of knee noted as well d/w Dr. Hernandez, agrees with above Status: Acute (2) Ankle pain, right Assessment & Plan: improving did not tolerate MRI, can follow up as outpt Status: Acute
[2018-08-09] MEDS: Oxycodone/Acetaminophen 5/325 mg Tab PO PRN (15:48)
[2018-08-09 16:43] LABS: SQUAMOUS EPITHIAL 1 /hpf (0-5); URINE BACTERIA OCC (<OCC); URINE BILIRUBIN NEGATIVE (NEGATIVE); URINE BLOOD NEGATIVE (NEGATIVE); URINE CLARITY Hazy (Clear); URINE COLOR Straw (YELLOW); URINE GLUCOSE (UA) 3+ mg/dL (Normal); URINE LEUKOCYTE ESTERASE TRACE Leu/uL (Negative); URINE PROTEIN NEGATIVE (NEGATIVE); URINE UROBILINOGEN NORMAL mg/dL (0.2-1.0)
[2018-08-09 17:36] LABS: BASO % 0.6 % (0.0-2.0); EOS % 0.5 % (0.0-4.0); HEMOGLOBIN 9.2 g/dL (11.0-16.0); LYMPH # 1.5 K/uL (1.0-4.3); LYMPH % 18.8 % (20.0-40.0); MEAN CORPUSCULAR HEMOGLOBIN 22.6 pg (27.0-31.0); MEAN CORPUSCULAR HGB CONC 29.4 g/dL (33.0-37.0); MEAN PLATELET VOLUME 8.9 fL (7.2-11.7); MONO # 0.9 K/uL (0.0-0.8); MONO % 11.2 % (0.0-10.0); NEUT # 5.6 K/uL (1.8-7.0); NEUT % 68.9 % (50.0-75.0); NRBC % 0.1 % (0.0-2.0); RBC 4.07 Mil/uL (3.80-5.20); RED CELL DISTRIBUTION WIDTH 17.9 % (11.5-14.5); WHITE BLOOD COUNT 8.1 K/uL (4.8-10.8)
[2018-08-09 18:28] LABS: ALB/GLOB RATIO 1.2 (1.0-2.1); ALBUMIN 2.9 g/dL (3.5-5.0); ALT/SGPT 38 U/L (9-52); AST/SGOT 22 U/L (14-36); BLOOD UREA NITROGEN 42 mg/dL (7-17); CALCIUM 8.3 mg/dl (8.6-10.4); GFR NON-AFRICAN AMERICAN > 60
[2018-08-09] MEDS ORDERED: (Lantus) Insulin Glargine, Recombinant SC SCH (22:00)
[2018-08-10] MEDS ORDERED: (Novolin R) Insulin Human Regular 100 units/ml vial SC ONE (02:27)
[2018-08-10] MEDS: Levothyroxine 100 MCG TAB PO SCH (06:01)
[2018-08-10 07:26] LABS: BASO # 0.1 K/uL (0.0-0.2); BASO % 1.2 % (0.0-2.0); EOS # 0.1 K/uL (0.0-0.7); EOS % 1.2 % (0.0-4.0); HEMOGLOBIN 9.9 g/dL (11.0-16.0); LYMPH # 2.2 K/uL (1.0-4.3); LYMPH % 25.9 % (20.0-40.0); MEAN CELL VOLUME 75.3 fL (81.0-99.0); MEAN CORPUSCULAR HEMOGLOBIN 23.3 pg (27.0-31.0); MEAN PLATELET VOLUME 9.1 fL (7.2-11.7); MONO # 0.9 K/uL (0.0-0.8); MONO % 10.2 % (0.0-10.0); NEUT # 5.2 K/uL (1.8-7.0); NEUT % 61.5 % (50.0-75.0); NRBC % 0.2 % (0.0-2.0); RBC 4.24 Mil/uL (3.80-5.20); RED CELL DISTRIBUTION WIDTH 17.4 % (11.5-14.5); WHITE BLOOD COUNT 8.5 K/uL (4.8-10.8)
[2018-08-10 07:39] LABS: ALB/GLOB RATIO 1.1 (1.0-2.1); ALBUMIN 3.1 g/dL (3.5-5.0); ALT/SGPT 33 U/L (9-52); AST/SGOT 20 U/L (14-36); BLOOD UREA NITROGEN 38 mg/dL (7-17); CALCIUM 8.9 mg/dl (8.6-10.4); GFR NON-AFRICAN AMERICAN > 60
[2018-08-10] MEDS: (Novolog) Insulin Aspart, Recombinant 100 u/ml 10 ml vial SC SCH ×4 (08:36→22:02)
[2018-08-10] MEDS: Pantoprazole 40 mg EC Tab PO SCH (09:42)
[2018-08-10] MEDS: diltiaZEM 120 mg/24 Hours CD Cap PO SCH (09:43)
--- NOTE | 2018-08-10 11:55 | CP.PCM.PN ---
Subjective - Date & Time of Evaluation Date of Evaluation: 08/10/18 Time of Evaluation: 07:00 - Subjective Subjective: Progress Note for Dr. Gutierres Patient seen and examined at bedside. Patient admits to generalized right leg pain. Otherwise she has no acute complaints. Patient is pending discharge to [facility], awaiting authorization from her insurance company. She denies headache, chest pain, shortness of breath, abdominal pain, nausea, vomiting, constipation, or diarrhea. Objective - Vital Signs/Intake and Output Vital Signs (last 24 hours): Temp Pulse Resp BP Pulse Ox 98.4 F 105 H 20 128/74 94 L 08/10/18 08:45 08/10/18 08:45 08/10/18 08:45 08/10/18 09:43 08/10/18 08:45 Intake and Output: 08/10/18 08/10/18 06:59 18:59 Intake Total 80 Balance 80 - Medications Medications: Current Medications Bupropion HCl (Wellbutrin) 75 mg PO DAILY [facility] Last Admin: 08/10/18 10:07 Dose: 75 mg Colchicine (Colocrys) 0.6 mg PO BID [facility] Last Admin: 08/10/18 10:07 Dose: 0.6 mg Cyclobenzaprine HCl (Flexeril) 5 mg PO TID [facility] Last Admin: 08/10/18 09:43 Dose: 5 mg Diazepam (Valium) 10 mg PO BID PRN PRN Reason: Anxiety Last Admin: 08/10/18 10:06 Dose: 10 mg Diltiazem HCl (Cardizem Cd) 120 mg PO DAILY [facility] Last Admin: 08/10/18 09:43 Dose: 120 mg Furosemide (Lasix) 20 mg PO DAILY [facility] Last Admin: 08/10/18 09:43 Dose: 20 mg Gabapentin (Neurontin) 300 mg PO [facility] Last Admin: 08/09/18 21:37 Dose: 300 mg Glipizide (Glucotrol) 10 mg PO BID [facility] Last Admin: 08/10/18 09:43 Dose: 10 mg Hydrocortisone (Cortef) 20 mg PO TID [facility] Last Admin: 08/10/18 09:43 Dose: 20 mg Insulin Aspart (Novolog) 0 unit SC [facility]; Protocol Last Admin: 08/10/18 08:36 Dose: 6 u Insulin Glargine (Lantus) 10 unit SC [facility] Last Admin: 08/09/18 21:36 Dose: 10 units Levothyroxine Sodium (Synthroid) 100 mcg PO DAILY@0630 [facility] Last Admin: 08/10/18 06:01 Dose: 100 mcg Lisinopril (Zestril) 10 mg PO DAILY [facility] Last Admin: 08/10/18 09:43 Dose: 10 mg Metoprolol Tartrate (Lopressor) 50 mg PO BID [facility] Last Admin: 08/10/18 09:43 Dose: 50 mg Oxycodone/Acetaminophen (Percocet 5/325 Mg Tab) 1 tab PO Q4H PRN PRN Reason: Pain, moderate (4-7) Stop: 08/11/18 19:40 Last Admin: 08/09/18 15:48 Dose: 1 tab Pantoprazole Sodium (Protonix Ec Tab) 40 mg PO DAILY [facility] Last Admin: 08/10/18 09:42 Dose: 40 mg Rivaroxaban (Xarelto) 20 mg PO DAILY [facility] Last Admin: 08/10/18 10:07 Dose: 20 mg Sitagliptin Phosphate (Januvia) 100 mg PO DAILY [facility] Last Admin: 08/10/18 09:43 Dose: 100 mg - Labs Labs: 08/10/18 07:15 08/10/18 07:15 PT 19.9 SECONDS (9.7-12.2) H 08/01/18 21:06 INR 1.8 08/01/18 21:06 APTT 32 SECONDS (21-34) 08/01/18 21:06 - Additional Findings Additional findings: - Constitutional Appears: Non-toxic, No Acute Distress - Head Exam Head Exam: ATRAUMATIC, NORMOCEPHALIC - Eye Exam Eye Exam: Normal appearance - ENT Exam ENT Exam: Mucous Membranes Moist - Neck Exam Neck Exam: absent: Lymphadenopathy, Tenderness - Respiratory Exam Respiratory Exam: Clear to Ausculation Bilateral, NORMAL BREATHING PATTERN. absent: Accessory Muscle Use, Rales, Rhonchi, Wheezes, Respiratory Distress - Cardiovascular Exam Cardiovascular Exam: Tachycardia - GI/Abdominal Exam GI & Abdominal Exam: Soft, Normal Bowel Sounds. absent: Distended, Firm, Guarding, Rigid, Tenderness - Extremities Exam Additional comments: right lower extremity with brace on. sensation intact. - Neurological Exam Neurological Exam: Alert, Oriented x3 Additional comments: sensation intact of toe of right foot. - Psychiatric Exam Psychiatric exam: Depressed - Skin Skin Exam: Dry, Warm Assessment and Plan - Assessment and Plan (Free Text) Assessment: Right proximal tibia fracture, nondisplaced - Orthopedic consulted, Dr. Ridley * No surgical intervention at this time - xray shows nondisplaced comminuted fracture proximal tibial metaphysis - Knee immobilizer, NWB for 8 weeks - Percocet Q4 prn for pain - Incentive Spirometer - PT eval Right ankle pain -ankle xray: no fracture or dislocation identified -foot right xray: no fracture or dislocation identified -f/u right LE MRI Chronic Diastolic Congestive Heart Failure - Stable - Last echo 2017 showed Grade III reversible restrictive diastolic dysfunction, EF 55% - Lasix 20mg PO daily Hypertension - continue to monitor - Lisinopril 10mg PO daily - Metoprolol 50mg PO BID - Cardizem 120mg PO daily Diabetes Mellitus - Accuchecks, Insulin sliding scale - Hypoglycemia protocol - HgA1c 9.3 (01/2018) - Januvia 100mg PO daily - Glipizide 10mg PO BID - Gabapentin 300mg PO TID - Lantus 20 units HS (increased from 10 u on 08/10/18) Fibromyalgia w/ severe back pain - Stable - Diazepam 5mg PO PRN - Flexeril 5mg PO TID - Percocet 5/325mg 1 tab Q6H Adrenal Insufficiency - Hydrocortisone 20mg PO TID Hypothyroidism - Synthroid 100mcg PO daily History of DVT/PE - Xarelto 20mg PO daily Gout - Colchicine 0.6mg BID Depression - Wellbutrin 75mg Prophylactic Measures - Protonix 40mg PO daily, Probiotics - Xarelto 20mg PO daily - PT DISPO: Patient is medically stable for discharge to [facility] Pending placement at [facility], pending authorization. Case discussed with Dr. Gutierres
[2018-08-10] MEDS: Oxycodone/Acetaminophen 5/325 mg Tab PO PRN (20:01)
[2018-08-10] MEDS: (Lantus) Insulin Glargine, Recombinant SC SCH (22:03)
[2018-08-10] MEDS ORDERED: (Novolog) Insulin Aspart, Recombinant 100 u/ml 10 ml vial SC ONE (22:15)
[2018-08-11] MEDS ORDERED: (Novolin R) Insulin Human Regular 100 units/ml vial SC ONE (02:52)
[2018-08-11] MEDS: Levothyroxine 100 MCG TAB PO SCH (05:44)
[2018-08-11 06:50] LABS: BASO # 0.1 K/uL (0.0-0.2); BASO % 1.5 % (0.0-2.0); EOS # 0.1 K/uL (0.0-0.7); EOS % 0.5 % (0.0-4.0); HEMOGLOBIN 9.7 g/dL (11.0-16.0); LYMPH # 2.5 K/uL (1.0-4.3); LYMPH % 26.9 % (20.0-40.0); MEAN CELL VOLUME 75.9 fL (81.0-99.0); MEAN CORPUSCULAR HEMOGLOBIN 23.4 pg (27.0-31.0); MEAN CORPUSCULAR HGB CONC 30.9 g/dL (33.0-37.0); MEAN PLATELET VOLUME 9.1 fL (7.2-11.7); MONO # 0.8 K/uL (0.0-0.8); MONO % 8.5 % (0.0-10.0); NEUT # 5.8 K/uL (1.8-7.0); NEUT % 62.6 % (50.0-75.0); NRBC % 0.1 % (0.0-2.0); RBC 4.12 Mil/uL (3.80-5.20); RED CELL DISTRIBUTION WIDTH 17.8 % (11.5-14.5); WHITE BLOOD COUNT 9.3 K/uL (4.8-10.8)
[2018-08-11 07:30] LABS: ALB/GLOB RATIO 1.1 (1.0-2.1); ALBUMIN 3.1 g/dL (3.5-5.0); ALT/SGPT 36 U/L (9-52); AST/SGOT 22 U/L (14-36); BLOOD UREA NITROGEN 48 mg/dL (7-17); CALCIUM 8.6 mg/dl (8.6-10.4); GFR NON-AFRICAN AMERICAN > 60
--- NOTE | 2018-08-11 07:55 | CP.PCM.PN ---
Subjective - Date & Time of Evaluation Date of Evaluation: 08/11/18 Time of Evaluation: 07:30 - Subjective Subjective: Patient seen and examined at bedside. Pain well controlled. No acute events overnight. Awaiting placement. Objective - Vital Signs/Intake and Output Vital Signs (last 24 hours): Temp Pulse Resp BP Pulse Ox 97.8 F 106 H 20 117/78 95 08/10/18 23:15 08/10/18 23:15 08/10/18 23:15 08/10/18 23:15 08/10/18 23:15 Intake and Output: 08/11/18 08/11/18 06:59 18:59 Output Total 150 Balance -150 - Medications Medications: Current Medications Bupropion HCl (Wellbutrin) 75 mg PO DAILY [facility] Last Admin: 08/10/18 10:07 Dose: 75 mg Colchicine (Colocrys) 0.6 mg PO BID [facility] Last Admin: 08/10/18 17:41 Dose: 0.6 mg Cyclobenzaprine HCl (Flexeril) 5 mg PO TID [facility] Last Admin: 08/10/18 17:41 Dose: 5 mg Diazepam (Valium) 10 mg PO BID PRN PRN Reason: Anxiety Last Admin: 08/10/18 10:06 Dose: 10 mg Diltiazem HCl (Cardizem Cd) 120 mg PO DAILY [facility] Last Admin: 08/10/18 09:43 Dose: 120 mg Furosemide (Lasix) 20 mg PO DAILY [facility] Last Admin: 08/10/18 09:43 Dose: 20 mg Gabapentin (Neurontin) 300 mg PO [facility] Last Admin: 08/10/18 22:02 Dose: 300 mg Glipizide (Glucotrol) 10 mg PO BID [facility] Last Admin: 08/10/18 17:40 Dose: 10 mg Hydrocortisone (Cortef) 20 mg PO TID [facility] Last Admin: 08/10/18 17:38 Dose: 20 mg Insulin Aspart (Novolog) 0 unit SC [facility]; Protocol Last Admin: 08/10/18 22:02 Dose: 4 u Insulin Glargine (Lantus) 20 unit SC [facility] Last Admin: 08/10/18 22:03 Dose: 20 u Levothyroxine Sodium (Synthroid) 100 mcg PO DAILY@0630 [facility] Last Admin: 08/11/18 05:44 Dose: 100 mcg Lisinopril (Zestril) 10 mg PO DAILY [facility] Last Admin: 08/10/18 09:43 Dose: 10 mg Metoprolol Tartrate (Lopressor) 50 mg PO BID [facility] Last Admin: 08/10/18 17:40 Dose: 50 mg Oxycodone/Acetaminophen (Percocet 5/325 Mg Tab) 1 tab PO Q4H PRN PRN Reason: Pain, moderate (4-7) Stop: 08/11/18 19:40 Last Admin: 08/09/18 15:48 Dose: 1 tab Oxycodone/Acetaminophen (Percocet 5/325 Mg Tab) 2 tab PO Q6H PRN PRN Reason: Pain, severe (8-10) Stop: 08/13/18 19:50 Last Admin: 08/10/18 20:01 Dose: 2 tab Pantoprazole Sodium (Protonix Ec Tab) 40 mg PO DAILY [facility] Last Admin: 08/10/18 09:42 Dose: 40 mg Rivaroxaban (Xarelto) 20 mg PO DAILY [facility] Last Admin: 08/10/18 10:07 Dose: 20 mg Sitagliptin Phosphate (Januvia) 100 mg PO DAILY [facility] Last Admin: 08/10/18 09:43 Dose: 100 mg - Labs Labs: 08/11/18 06:36 08/11/18 06:36 PT 19.9 SECONDS (9.7-12.2) H 08/01/18 21:06 INR 1.8 08/01/18 21:06 APTT 32 SECONDS (21-34) 08/01/18 21:06 - Extremities Exam Additional comments: R knee: knee immobilizer intact Dressings CDI sensation intact SP/DP/TN motor intact EHL/FHL/TA/G pedal pulses intact comps soft NT b/l Assessment and Plan (1) Closed fracture of right proximal tibia Assessment & Plan: -No acute orthopedic intervention at this time -NWB RLE, strict knee immobilizer, bulky dressings -PT/OT -DVT ppx -orthopedically stable for d/c to [facility] -above d/w Dr. Hernandez in agreement Status: Acute (2) Ankle pain, right Assessment & Plan: NWB f/u as outpt Status: Acute
[2018-08-11] MEDS: (Novolog) Insulin Aspart, Recombinant 100 u/ml 10 ml vial SC SCH ×4 (08:50→21:28)
[2018-08-11] MEDS: diltiaZEM 120 mg/24 Hours CD Cap PO SCH (09:19)
[2018-08-11] MEDS: Pantoprazole 40 mg EC Tab PO SCH (09:21)
--- NOTE | 2018-08-11 11:42 | CP.PCM.PN ---
Subjective - Date & Time of Evaluation Date of Evaluation: 08/11/18 Time of Evaluation: 07:00 - Subjective Subjective: Progress Note for Dr. Gutierres Patient seen and examined at bedside. Patient admits to generalized right leg pain. Otherwise she has no acute complaints. Patient is pending discharge to [facility]. She denies headache, chest pain, shortness of breath, abdominal pain, nausea, vomiting, constipation, or diarrhea. Objective - Vital Signs/Intake and Output Vital Signs (last 24 hours): Temp Pulse Resp BP Pulse Ox 97.8 F 106 H 20 117/80 95 08/10/18 23:15 08/10/18 23:15 08/10/18 23:15 08/11/18 09:20 08/10/18 23:15 Intake and Output: 08/11/18 08/11/18 06:59 18:59 Output Total 150 Balance -150 - Medications Medications: Current Medications Bupropion HCl (Wellbutrin) 75 mg PO DAILY [facility] Last Admin: 08/11/18 09:22 Dose: 75 mg Colchicine (Colocrys) 0.6 mg PO BID [facility] Last Admin: 08/11/18 09:22 Dose: 0.6 mg Cyclobenzaprine HCl (Flexeril) 5 mg PO TID [facility] Last Admin: 08/11/18 09:22 Dose: 5 mg Diazepam (Valium) 10 mg PO BID PRN PRN Reason: Anxiety Last Admin: 08/11/18 09:25 Dose: 10 mg Diltiazem HCl (Cardizem Cd) 120 mg PO DAILY [facility] Last Admin: 08/11/18 09:19 Dose: 120 mg Furosemide (Lasix) 20 mg PO DAILY [facility] Last Admin: 08/11/18 09:20 Dose: 20 mg Gabapentin (Neurontin) 300 mg PO [facility] Last Admin: 08/10/18 22:02 Dose: 300 mg Glipizide (Glucotrol) 10 mg PO BID [facility] Last Admin: 08/11/18 09:21 Dose: 10 mg Hydrocortisone (Cortef) 20 mg PO TID [facility] Last Admin: 08/11/18 09:22 Dose: 20 mg Insulin Aspart (Novolog) 0 unit SC [facility]; Protocol Last Admin: 08/11/18 08:50 Dose: 6 u Insulin Glargine (Lantus) 20 unit SC [facility] Last Admin: 08/10/18 22:03 Dose: 20 u Levothyroxine Sodium (Synthroid) 100 mcg PO DAILY@0630 [facility] Last Admin: 08/11/18 05:44 Dose: 100 mcg Lisinopril (Zestril) 10 mg PO DAILY [facility] Last Admin: 08/11/18 09:21 Dose: 10 mg Metoprolol Tartrate (Lopressor) 50 mg PO BID [facility] Last Admin: 08/11/18 09:21 Dose: 50 mg Oxycodone/Acetaminophen (Percocet 5/325 Mg Tab) 1 tab PO Q4H PRN PRN Reason: Pain, moderate (4-7) Stop: 08/11/18 19:40 Last Admin: 08/09/18 15:48 Dose: 1 tab Oxycodone/Acetaminophen (Percocet 5/325 Mg Tab) 2 tab PO Q6H PRN PRN Reason: Pain, severe (8-10) Stop: 08/13/18 19:50 Last Admin: 08/10/18 20:01 Dose: 2 tab Pantoprazole Sodium (Protonix Ec Tab) 40 mg PO DAILY [facility] Last Admin: 08/11/18 09:21 Dose: 40 mg Rivaroxaban (Xarelto) 20 mg PO DAILY [facility] Last Admin: 08/11/18 09:23 Dose: 20 mg Sitagliptin Phosphate (Januvia) 100 mg PO DAILY [facility] Last Admin: 08/11/18 09:21 Dose: 100 mg - Labs Labs: 08/11/18 06:36 08/11/18 06:36 PT 19.9 SECONDS (9.7-12.2) H 08/01/18 21:06 INR 1.8 08/01/18 21:06 APTT 32 SECONDS (21-34) 08/01/18 21:06 - Additional Findings Additional findings: - Constitutional Appears: Non-toxic, No Acute Distress - Head Exam Head Exam: ATRAUMATIC, NORMOCEPHALIC - Eye Exam Eye Exam: Normal appearance - ENT Exam ENT Exam: Mucous Membranes Moist - Neck Exam Neck Exam: absent: Lymphadenopathy, Tenderness - Respiratory Exam Respiratory Exam: Clear to Ausculation Bilateral, NORMAL BREATHING PATTERN. absent: Accessory Muscle Use, Rales, Rhonchi, Wheezes, Respiratory Distress - Cardiovascular Exam Cardiovascular Exam: Tachycardia - GI/Abdominal Exam GI & Abdominal Exam: Soft, Normal Bowel Sounds. absent: Distended, Firm, Guarding, Rigid, Tenderness - Extremities Exam Additional comments: right lower extremity with brace on. sensation intact. - Neurological Exam Neurological Exam: Alert, Oriented x3 Additional comments: sensation intact of toe of right foot. - Psychiatric Exam Psychiatric exam: Depressed - Skin Skin Exam: Dry, Warm Assessment and Plan - Assessment and Plan (Free Text) Assessment: Right proximal tibia fracture, nondisplaced - Orthopedic consulted, Dr. Ridley * No surgical intervention at this time - xray shows nondisplaced comminuted fracture proximal tibial metaphysis - Knee immobilizer, NWB for 8 weeks - Percocet Q4 prn for pain - Incentive Spirometer - PT Right ankle pain -ankle xray: no fracture or dislocation identified -foot right xray: no fracture or dislocation identified Chronic Diastolic Congestive Heart Failure - Stable - Last echo 2017 showed Grade III reversible restrictive diastolic dysfunction, EF 55% - Lasix 20mg PO daily Hypertension - continue to monitor - Lisinopril 10mg PO daily - Metoprolol 50mg PO BID - Cardizem 120mg PO daily Diabetes Mellitus - Accuchecks, Insulin sliding scale - Hypoglycemia protocol - HgA1c 9.3 (01/2018) - Januvia 100mg PO daily - Glipizide 10mg PO BID - Gabapentin 300mg PO TID - Lantus 20 units HS (increased from 10 u on 08/10/18) Fibromyalgia w/ severe back pain - Stable - Diazepam 5mg PO PRN - Flexeril 5mg PO TID - Percocet 5/325mg 1 tab Q6H Adrenal Insufficiency - Hydrocortisone 20mg PO TID Hypothyroidism - Synthroid 100mcg PO daily History of DVT/PE - Xarelto 20mg PO daily Gout - Colchicine 0.6mg BID Depression - Wellbutrin 75mg Prophylactic Measures - Protonix 40mg PO daily, Probiotics - Xarelto 20mg PO daily - PT DISPO: Patient is medically stable for discharge to [facility]. Patient to follow up with ortho (Dr. Hernandez) and primary care (Dr. Gutierres) as an outpatient. Case discussed with Dr. Gutierres
[2018-08-11] MEDS: Oxycodone/Acetaminophen 5/325 mg Tab PO PRN (12:54)
[2018-08-11 16:48] VITALS: BP 96/54; PULSE 94; TEMP 97.3; O2SAT 96
[2018-08-11] MEDS: (Lantus) Insulin Glargine, Recombinant SC SCH (21:27)
--- NOTE | 2018-08-12 17:31 | PCM.HF ---
Heart Failure Core Measure - Heart Failure Ejection Fraction: 40 % or Greater ELVIE Inhibitor Prescribed: Yes Beta-Vero Prescribed: Metoprolol Succinate Angiotensin II Receptor Vero Prescribed: No Contraindication/Reason for not providing: on elvie AnticoagulationTherapy for Atrial Fibrillation/Atrialflutter: Yes Aldosterone Antagonist Prescribed: No Contraindication/Reason for not providing: ef.45 Hydralazine Nitrate Prescribed: No Contraindication/Reason for not providing: ef>45 Implantable Cardioverter Defibrillator Therapy: No Contraindication/Reason for not providing: ef>45 Cardiac Resynchronization Therapy Prescribed: No Contraindication/Reason for not providing: ef>45 - Follow up Will be discharged to: Home Follow Up Date (must be within 7 days from discharge): 08/16/18 Follow Up Time: 13:00
--- NOTE | 2018-08-16 06:10 | DS ---
HISTORY OF PRESENT ILLNESS AND HOSPITAL COURSE: Mrs. Llanes was admitted to the hospital with a chief complaint of weakness, fatigue, tiredness, and cough. The patient weak, fatigued. She was told that she has pneumonia. IV antibiotics. Supportive care. Physical therapy. The patient because of the extreme weakness was transferred to rehab for further therapy. DIAGNOSES: Pneumonia, spinal stenosis, arthritis, steroid dependence, failure to thrive. Angel Gutierres MD
--- NOTE | 2018-08-17 07:30 | DS ---
HISTORY OF PRESENT ILLNESS AND HOSPITAL COURSE: The patient was admitted to the hospital with a chief complaint of fracture tibia. The patient fell at home, sustained a fracture of the leg. The patient was brought to the emergency room and was then put in a splint. Advised admission. The patient was placed on bedrest. The patient was complaining of severe pain throughout the admission. Given pain medication and physical therapy. The patient was transferred to subacute rehab for further management. DIAGNOSES: Fracture of the leg, arthritis, obesity. Angel Gutierres MD
== END 2018-08-11 22:59 | DRG 563 ==
LOC: C.ER 20:02 → C.9E 23:11 → C.6T 08-02 12:57
PROVIDERS: ADMIT Internal Medicine Pulmonary Disease; ATTEND Internal Medicine Pulmonary Disease
DX: S82.191A Other fracture of upper end of right tibia, initial encounter for closed fracture (principal); I50.32 Chronic diastolic (congestive) heart failure; J44.9 Chronic obstructive pulmonary disease, unspecified; I11.0 Hypertensive heart disease with heart failure; E11.9 Type 2 diabetes mellitus without complications; E03.9 Hypothyroidism, unspecified; M10.9 Gout, unspecified; Z86.711 Personal history of pulmonary embolism; F32.9 Major depressive disorder, single episode, unspecified; W01.0XXA Fall on same level from slipping, tripping and stumbling without subsequent striking against object, initial encounter; M79.7 Fibromyalgia; M54.9 Dorsalgia, unspecified; Z87.891 Personal history of nicotine dependence; Y92.009 Unspecified place in unspecified non-institutional (private) residence as the place of occurrence of the external cause; Z79.01 Long term (current) use of anticoagulants; R29.6 Repeated falls; E78.00 Pure hypercholesterolemia, unspecified; Z79.4 Long term (current) use of insulin

== ENCOUNTER 2018-09-01 17:15 | Inpatient (IN) | payer BC, MEDICARE ==
[2018-09-01 17:16] VITALS: BMI 27.4
[2018-09-01 17:39] LABS: VENOUS BLOOD GAS BASE EXCESS -1.7 mmol/L (0.0-2.0); VENOUS BLOOD GAS PCO2 59 mmHg (40-60); VENOUS BLOOD GAS PO2 23 mm/Hg (30-55); VENOUS BLOOD PH 7.26 (7.32-7.43)
[2018-09-01 17:49] LABS: EOS # 0.2 K/uL (0.0-0.7); MEAN CORPUSCULAR HEMOGLOBIN 21.8 pg (27.0-31.0); NRBC % 0.3 % (0.0-2.0)
[2018-09-01] MEDS ORDERED: cefTRIAXone IV 1 gm in Dextros 50 ML IV ONE (18:02)
[2018-09-01] MEDS ORDERED: Azithromycin 500 MG in Sodium Chloride 0.9% 250 ML IV STA (18:03)
[2018-09-01 18:09] LABS: ALB/GLOB RATIO 1.3 (1.0-2.1); ALBUMIN 3.4 g/dL (3.5-5.0); CALCIUM 8.1 mg/dl (8.6-10.4)
[2018-09-01 18:13] LABS: BASO # 0.2 K/uL (0.0-0.2); BASO % 1.3 % (0.0-2.0); EOS % 1.3 % (0.0-4.0); LYMPH % 32.2 % (20.0-40.0); MEAN CELL VOLUME 77.1 fL (81.0-99.0); MEAN CORPUSCULAR HGB CONC 28.3 g/dL (33.0-37.0); MEAN PLATELET VOLUME 9.1 fL (7.2-11.7); MONO # 1.2 K/uL (0.0-0.8); MONO % 9.6 % (0.0-10.0); NEUT # 6.9 K/uL (1.8-7.0); NEUT % 55.6 % (50.0-75.0); RBC 4.11 Mil/uL (3.80-5.20); WHITE BLOOD COUNT 12.4 K/uL (4.8-10.8)
[2018-09-01] MEDS ORDERED: Azithromycin 500mg/250ML NS 500 MG/250 ML BAG IVPB ONE (18:15)
[2018-09-01 18:39] LABS: SQUAMOUS EPITHIAL < 1 /hpf (0-5); URINE BACTERIA RARE (<OCC); URINE BILIRUBIN NEGATIVE (NEGATIVE); URINE BLOOD NEGATIVE (NEGATIVE); URINE CLARITY Hazy (Clear); URINE COLOR Amber (YELLOW); URINE GLUCOSE (UA) NORMAL (Normal); URINE LEUKOCYTE ESTERASE NEG Leu/uL (Negative); URINE PROTEIN NEGATIVE (NEGATIVE); URINE UROBILINOGEN NORMAL mg/dL (0.2-1.0)
[2018-09-01 18:41] LABS: TROPONIN I 0.038 ng/mL (0.00-0.120)
--- NOTE | 2018-09-01 19:20 | C.PDOC ---
History Of Present Illness 63 year old female is referred to the ED from sub-acute rehab for evaluation of fever. Patient was recently admitted for a leg fracture, pneumonia, and COPD from August 01-August 16. Patient denies nausea, vomiting. Time Seen by Provider: 09/01/18 17:59 Chief Complaint (Nursing): Fever History Per: Patient History/Exam Limitations: no limitations Onset/Duration Of Symptoms: Hrs Current Symptoms Are (Timing): Still Present Associated Symptoms: Fever. denies: Nausea, Vomiting Additional History Per: Patient Past Medical History Reviewed: Historical Data, Nursing Documentation, Vital Signs Vital Signs: Last Vital Signs Temp 101.8 F H 09/01/18 17:25 Pulse 124 H 09/01/18 17:25 Resp 22 09/01/18 17:25 BP 105/78 09/01/18 17:25 Pulse Ox 91 L 09/01/18 17:25 - Medical History PMH: Anemia, Anxiety, Arthritis (R THR /ORIF), Asthma, Cardia Arrhythmia, CHF, COPD, Depression, Diabetes, Deep Vein Thrombosis, Fibromyalgia, Fractures (R HIP), Gall Bladder Disease, HTN, Hypercholesterolemia, Hyperlipidemia, Hypothyroidism, Pulmonary Embolism (on Coumadin W/ IVC filter), Rheumatoid Arthritis Denies: Chronic Kidney Disease Surgical History: Back Surgery, Cholecystectomy Denies: Appendectomy - [facility] Procedures CENTRAL VENOUS CATHETER PLACEMENT WITH GUIDANCE (09/28/14) ENDOSC POLYPECTOMY OF LG INTEST (09/08/14) ESOPHAGOGASTRODUODENOSCOPY [EGD] W/CLOSED BIOPSY (09/08/14) EXCISION OF STOMACH, ENDO, DIAGN (11/19/15) REPOSITION R UP FEMUR WITH INTRAMED FIX, OPEN APPROACH (03/14/17) SPINAL CANAL EXPLOR NEC (09/08/14) Family History: States: Unknown Family Hx - Social History Hx Tobacco Use: No Hx Alcohol Use: No Hx Substance Use: No - Immunization History Hx Tetanus Toxoid Vaccination: No Hx Influenza Vaccination: No Hx Pneumococcal Vaccination: No Review Of Systems Constitutional: Positive for: Fever Gastrointestinal: Negative for: Vomiting Physical Exam - Physical Exam Appears: Non-toxic, No Acute Distress, Other (sleeping, in no apparent distress ) Skin: Warm, Dry, Pale Head: Atraumatic, Normacephalic Eye(s): bilateral: Normal Inspection Oral Mucosa: Moist Neck: Supple Chest: Symmetrical, No Deformity, No Tenderness Cardiovascular: Rhythm Regular, No Murmur Respiratory: Normal Breath Sounds, No Rales, No Rhonchi, No Wheezing Extremity: Capillary Refill (less than 2 seconds ), Other (right lower extremity is bandaged, no edema ) Pulses: Left Dorsalis Pedis: Normal, Right Dorsalis Pedis: Normal Neurological/Psych: Normal Speech, Normal Cognition ED Course And Treatment - Laboratory Results Result Diagrams: 09/01/18 17:35 09/01/18 17:35 Lab Results: pO2 23 mm/Hg (30-55) L 09/01/18 17:35 VBG pH 7.26 (7.32-7.43) L 09/01/18 17:35 VBG pCO2 59 mmHg (40-60) 09/01/18 17:35 VBG HCO3 21.8 mmol/L 09/01/18 17:35 VBG Total CO2 28.3 mmol/L (22-28) H 09/01/18 17:35 VBG O2 Sat (Calc) 39.3 % (40-65) L 09/01/18 17:35 VBG Base Excess -1.7 mmol/L (0.0-2.0) L 09/01/18 17:35 VBG Potassium 4.3 mmol/L (3.6-5.2) 09/01/18 17:35 Sodium 135.0 mmol/l (132-148) 09/01/18 17:35 Chloride 104.0 mmol/L (98-107) 09/01/18 17:35 Glucose 104 mg/dl (65-105) 09/01/18 17:35 Lactate 1.6 mmol/L (0.7-2.1) 09/01/18 17:35 FiO2 21.0 % 09/01/18 17:35 Troponin I 0.0380 ng/mL (0.00-0.120) 09/01/18 18:14 NT-Pro-B Natriuret Pep 1090 pg/mL (0-900) H 09/01/18 18:14 Total Bilirubin 0.4 mg/dL (0.2-1.3) 09/01/18 17:35 AST 105 U/L (14-36) H D 09/01/18 17:35 ALT 129 U/L (9-52) H D 09/01/18 17:35 Alkaline Phosphatase 138 U/L (38-126) H 09/01/18 17:35 Total Protein 6.0 g/dL (6.3-8.3) L 09/01/18 17:35 Albumin 3.4 g/dL (3.5-5.0) L 09/01/18 17:35 Globulin 2.6 gm/dL (2.2-3.9) 09/01/18 17:35 Albumin/Globulin Ratio 1.3 (1.0-2.1) 09/01/18 17:35 Urine Color Valentine (YELLOW) 09/01/18 18:23 Urine Clarity Hazy (Clear) 09/01/18 18:23 Urine pH 5.0 (5.0-8.0) 09/01/18 18:23 Ur Specific [place] 1.020 (1.003-1.030) 09/01/18 18:23 Urine Protein Negative mg/dL (NEGATIVE) 09/01/18 18:23 Urine Glucose (UA) Normal mg/dL (Normal) 09/01/18 18:23 Urine Ketones Negative mg/dL (NEGATIVE) 09/01/18 18:23 Urine Blood Negative (NEGATIVE) 09/01/18 18:23 Urine Nitrate Negative (NEGATIVE) 09/01/18 18:23 Urine Bilirubin Negative (NEGATIVE) 09/01/18 18:23 Urine Urobilinogen Normal mg/dL (0.2-1.0) 09/01/18 18:23 Ur Leukocyte Esterase Neg [place]/uL (Negative) 09/01/18 18:23 Urine WBC (Auto) 1 /hpf (0-5) 09/01/18 18:23 Urine RBC (Auto) 1 /hpf (0-3) 09/01/18 18:23 Ur Squamous Epith Cells < 1 /hpf (0-5) 09/01/18 18:23 Urine Bacteria Rare (<OCC) 09/01/18 18:23 Hyaline Casts 11-20 /lpf (0-2) H 09/01/18 18:23 ECG: Interpreted By Me ECG Rhythm: Sinus Rhythm O2 Sat by Pulse Oximetry: 91 Pulse Ox Interpretation: Abnormal - Radiology CXR: Interpreted by Me CXR Interpretation: Yes: No Acute Disease Progress Note: Bloodwork, urinalysis, CXR ordered and reviewed. Motrin PO, Tylenol PO, Rocephin IV, and Zithromax IV given. Reevaluation Time: 20:04 Reassessment Condition: Unchanged - Physician Consult Information Outcome Of Conversation: 2000: d/w elliot Anderson to admit Medical Decision Making Medical Decision Making: wrapping to R lower leg soaked in urine and foul smelling, no leg edema 08/02/18: x-ray of R tib/fib appreciated fx @ metaphesis no repeat x-ray done cough/fever @ [facility] poor lung volumes prob provoke COPD exacerbation. Disposition Doctor Will See Patient In The: Hospital Counseled Patient/Family Regarding: Studies Performed, Diagnosis - Disposition Disposition: HOSPITALIZED Disposition Time: 20:06 Condition: GOOD - Clinical Impression Clinical Impression: COPD (chronic obstructive pulmonary disease), Closed fracture of right proximal tibia - Scribe Statement The provider has reviewed the documentation as recorded by the Scribe (Veronica Diaz) Provider Attestation: All medical record entries made by the Scribe were at my direction and personally dictated by me. I have reviewed the chart and agree that the record accurately reflects my personal performance of the history, physical exam, medical decision making, and the department course for this patient. I have also personally directed, reviewed, and agree with the discharge instructions and disposition.
[2018-09-01] MEDS ORDERED: Sodium Chloride 0.9% 1,000 ML IV ONE (21:30)
[2018-09-01] MEDS ORDERED: Albuterol-Ipratrop 3 mg / 0.5 (3 ml) UD IH PRN (21:55)
[2018-09-01] MEDS ORDERED: FLUTICASONE IH SCH (22:00)
[2018-09-01] MEDS ORDERED: INSULIN LISPRO SC SCH (22:00)
[2018-09-01] MEDS ORDERED: SIMVASTATIN 40 MG PO SCH (22:00)
[2018-09-01] MEDS ORDERED: SALMETEROL IH SCH (22:00)
[2018-09-01] MEDS ORDERED: cefTRIAXone 2 GM IN NS 2 GM/100 ML BAG IVPB SCH (22:15)
[2018-09-01] MEDS ORDERED: Azithromycin 500mg/250ML NS 500 MG/250 ML BAG IVPB SCH (22:15)
[2018-09-01] MEDS: Sodium Chloride 0.45% 1,000 ML IV SCH (23:00)
[2018-09-01] MEDS: (Novolog) Insulin Aspart, Recombinant 100 u/ml 10 ml vial SC SCH (23:37)
[2018-09-02] MEDS: Saccharomyces Boulardi 250 mg Cap PO SCH ×3 (00:12→21:45)
[2018-09-02] MEDS: (Novolog) Insulin Aspart, Recombinant 100 u/ml 10 ml vial SC SCH ×6 (07:28→21:46)
--- NOTE | 2018-09-02 07:57 | CP.PCM.PN ---
Subjective - Date & Time of Evaluation Date of Evaluation: 09/02/18 Time of Evaluation: 07:57 - Subjective Subjective: Progress note for Dr. Gutierres Patient is a 63 yea rold female with a history of HTN, DM, fibromyalgia, adrenal insufficiency, hypothyroidism, hx of DVT/PE, gout, depression, who presents to the hospital from [facility] with complaints of fever and diarrhea. She also complains of chronic pain and states she is having a flair up of her fibromyalgia. She denies chest pain, palpitations, nausea, vomiting, headaches, abdominal pain, dysuria, leg pain and swelling. PMHX: HTN, DM, fibromyalgia, adrenal insufficeincy, hypothyroidism, hx of DVT/ PE, gout, depression, hx of right tibia fx SurgHx: Right hip ORIF 2017, hysterectomy, cholecystectomy, appendectomy FamHx: denies SocHc: denies tobacco, alcohol and drug use Allergies: NKDA Objective - Vital Signs/Intake and Output Vital Signs (last 24 hours): Temp Pulse Resp BP Pulse Ox 97.8 F 113 H 20 94/62 L 94 L 09/02/18 00:00 09/02/18 00:00 09/02/18 00:00 09/02/18 00:00 09/02/18 00:00 Intake and Output: 09/02/18 09/02/18 06:59 18:59 Intake Total 740 Balance 740 - Medications Medications: Current Medications Albuterol/Ipratropium (Duoneb 3 Mg/0.5 Mg (3 Ml) Ud) 3 ml IH Q4 PRN PRN Reason: Shortness of Breath Bupropion HCl (Wellbutrin) 75 mg PO DAILY [facility] Colchicine (Colocrys) 0.6 mg PO BID [facility] Furosemide (Lasix) 20 mg PO DAILY [facility] Gabapentin (Neurontin) 300 mg PO [facility] Last Admin: 09/02/18 00:12 Dose: 300 mg Glipizide (Glucotrol) 10 mg PO BID [facility] Home Med (Fluticasone/Salmeterol 250/50 [Advair Diskus 250/50]) 1 puff IH Q12 [facility] Home Med (Insulin Lispro [Humalog Kwikpen U-100]) 20 mg SC [facility] Last Admin: 09/01/18 23:36 Dose: Not Given Home Med (Insulin Lispro [Humalog Kwikpen U-100]) 30 units SC DAILY [facility] Home Med (Simvastatin [Zocor]) 40 mg PO HS [facility] Last Admin: 09/02/18 00:13 Dose: Not Given Hydrocortisone (Cortef) 20 mg PO TID [facility] Ceftriaxone Sodium (Rocephin 2 Gm Ivpb) 2 gm in 100 mls @ 100 mls/hr IVPB Q24H [facility]; Protocol Last Admin: 09/01/18 23:41 Dose: Not Given Azithromycin (Zithromax 500mg In Ns Addvantage) 500 mg in 250 mls @ 167 mls/hr IVPB Q24H [facility]; Protocol Last Admin: 09/01/18 22:31 Dose: Not Given Sodium Chloride (Sodium Chloride 0.45%) 1,000 mls @ 80 mls/hr IV .[id number] [facility] Last Admin: 09/01/18 23:00 Dose: 80 mls/hr Insulin Aspart (Novolog) 0 unit SC ACHS [facility]; Protocol Last Admin: 09/02/18 07:28 Dose: Not Given Levothyroxine Sodium (Synthroid) 100 mcg PO DAILY [facility] Pantoprazole Sodium (Protonix Ec Tab) 40 mg PO DAILY [facility] Rivaroxaban (Xarelto) 20 mg PO DAILY [facility] Saccharomyces Boulardii (Florastor) 250 mg PO Q12 [facility] Last Admin: 09/02/18 00:12 Dose: 250 mg Sitagliptin Phosphate (Januvia) 100 mg PO DAILY [facility] - Labs Labs: 09/01/18 17:35 09/01/18 17:35 - Constitutional Appears: No Acute Distress, Chronically Ill - Head Exam Head Exam: NORMAL INSPECTION - Eye Exam Eye Exam: EOMI, Normal appearance - ENT Exam ENT Exam: Mucous Membranes Moist - Respiratory Exam Respiratory Exam: NORMAL BREATHING PATTERN. absent: Rales, Rhonchi, Wheezes, Respiratory Distress - Cardiovascular Exam Cardiovascular Exam: REGULAR RHYTHM, +S1, +S2 - GI/Abdominal Exam GI & Abdominal Exam: Soft, Normal Bowel Sounds. absent: Distended, Firm, Tenderness - Extremities Exam Extremities Exam: absent: Pedal Edema, Tenderness - Neurological Exam Neurological Exam: Alert, Awake, Oriented x3 - Psychiatric Exam Psychiatric exam: Flat Affect - Skin Skin Exam: Dry, Normal Color, Warm Assessment and Plan - Assessment and Plan (Free Text) Plan: Fever, SIRS - unknown source at this time, possibly due to c.fiff, colitis - Febrile at admission, 101.8F. Leukocytosis 12.4, improved to 8.5. No bandemia. - Lactate at admission 1.6; repeat 0.9 on 09/02/18 - CXR: negative for acute pathology - Blood cx: f/u - Urinalysis: negative for infection - Urine cx: f/u - C.Diff: f/u - Ova/parasites: f/u - Stool cx: f/u - Stool leukocytes: f/u - Medications: * Azithromycin 500mg IV Q24 (active since 09/02/18) * Rocephin 2gm IV Q24h (active since 09/02/18) * Flagyl 500mg IV 18h (active since 09/02/18) * Florastor 250mg PO BID [facility] - At admission, BUN 44, Cr 3.2 - Improved on 09/02/18, BUN 35, Cr 1.9 - Nephrology consulted, Dr. Menendez; help appreciated - Avoid nephrotoxic agents - IV fluids, NS@100 - Possibly due to hypotension, sepsis, or renal hypoperfusion - Renal US: f/u Chronic Diastolic Congestive Heart Failure - Stable - Last echo 2016 showed Grade III reversible restrictive diastolic dysfunction, EF 55% - (HELD due to [facility]) Lasix 20mg PO daily Hypertension - Continue to monitor - Home medications: * Lisinopril 10mg PO daily (HELD due to [facility]) * Lopressor 50mg PO BID (HELD due to hypotension) * Cardizem 120mg PO daily (HOLD if SBP<100, DBP<60, HR<60) Diabetes Mellitus - Accuchecks - Hypoglycemia protocol - HgA1c 9.3 (01/2018) - Insulin sliding scale - Januvia 25mg PO daily (decreased due to [facility]) - Glipizide 10mg PO BID - Gabapentin 300mg PO TID - Novolin 20 units HS, 30 units daily Fibromyalgia - Home medication: Diazepam 5mg PO PRN (HELD due to hypotension) - Flexeril 5mg PO TID (Holding parameters- hold if sleeping/sedated, hypotensio n) - Percocet 5/325mg 1 tab Q6H (HELD due to hypotension) Adrenal Insufficiency - Hydrocortisone 20mg PO TID Hypothyroidism - Continue Synthroid 100mcg PO daily History of DVT/PE - Continue Xarelto 20mg PO daily Gout - Continue Colchicine Depression - Wellbutrin 75mg COPD - Continue home medication: Breo - Duonebs Q4h prn Prophylactic Measures - Protonix 40mg PO daily, Probiotics - Xarelto 20mg PO daily - PT/OT Case discussed and patient seen with Dr. Nenita Preston
--- NOTE | 2018-09-02 08:20 | RAD ---
Date of service: 09/01/2018 HISTORY: cough/fever COMPARISON: CT chest without contrast from 07/08/2018. FINDINGS: LUNGS: There are low lung volumes. There is multifocal atelectasis in the lower lobes. PLEURA: No pleural effusions or pneumothorax. CARDIOVASCULAR: The heart is normal in size. No aortic atherosclerotic calcifications present. OSSEOUS STRUCTURES: Within normal limits for the patient's age. VISUALIZED UPPER ABDOMEN: Normal. OTHER FINDINGS: None. IMPRESSION: No active pulmonary disease. Low lung volumes may be related to poor inspiratory effort.
[2018-09-02] MEDS ORDERED: Fluticasone-Vilanterol 100/25mcg Diskus INH SCH (08:45)
[2018-09-02] MEDS: Pantoprazole 40 mg EC Tab PO SCH (09:52)
[2018-09-02] MEDS: Levothyroxine 100 MCG TAB PO SCH (09:52)
[2018-09-02] MEDS: Sodium Chloride 0.45% 1,000 ML IV SCH (09:56)
[2018-09-02] MEDS ORDERED: Sodium Chloride 0.45% 1,000 ML IV SCH (11:15)
[2018-09-02 11:52] LABS: EOS # 0.2 K/uL (0.0-0.7); HEMOGLOBIN 9.2 g/dL (11.0-16.0); LYMPH # 1.7 K/uL (1.0-4.3); MONO # 0.9 K/uL (0.0-0.8); NEUT # 5.5 K/uL (1.8-7.0); NRBC % 0.2 % (0.0-2.0)
[2018-09-02 12:02] LABS: ALB/GLOB RATIO 1.3 (1.0-2.1); ALBUMIN 3.2 g/dL (3.5-5.0); ALT/SGPT 107 U/L (9-52); AST/SGOT 95 U/L (14-36); BLOOD UREA NITROGEN 35 mg/dL (7-17); CALCIUM 8.1 mg/dl (8.6-10.4); GFR NON-AFRICAN AMERICAN 27
[2018-09-02] MEDS: metroNIDAZOLE IV 500 mg/100 ml 500 MG/100 ML BAG IVPB SCH ×2 (12:30→19:21)
[2018-09-02] MEDS: Sodium Chloride 0.9% 1,000 ML IV SCH ×2 (12:31→22:31)
[2018-09-02 12:35] LABS: BASO # 0.2 K/uL (0.0-0.2); BASO % 1.9 % (0.0-2.0); LYMPH % 20.2 % (20.0-40.0); MEAN CELL VOLUME 77.4 fL (81.0-99.0); MEAN CORPUSCULAR HEMOGLOBIN 22.5 pg (27.0-31.0); MEAN CORPUSCULAR HGB CONC 29.1 g/dL (33.0-37.0); MEAN PLATELET VOLUME 9.1 fL (7.2-11.7); MONO % 10.9 % (0.0-10.0); RBC 4.08 Mil/uL (3.80-5.20); RED CELL DISTRIBUTION WIDTH 19.3 % (11.5-14.5); WHITE BLOOD COUNT 8.5 K/uL (4.8-10.8)
[2018-09-02 14:21] LABS: IRON 47 ug/dL (37-170)
[2018-09-02 14:30] LABS: % IRON SATURATION 14 (20-55); TOTAL IRON BINDING CAPACITY 335 ug/dL (250-450)
--- NOTE | 2018-09-02 14:50 | CP.PCM.CON ---
History of Present Illness - History of Present Illness History of Present Illness: Nephrology Consultation Note: Assessment: Stable Acute Kidney Injury (N17.9) likely due to hypotension/sepsis/renal hypoperfusion as also evident by concomitant abnormal AST/ALT Anemia hyponatremia DM, HTN dCHF, DVT/PE s/p IVC filter, gout, hypothyroidism hyperlipidemia fibromyalgias depression/anxiety COPD Adrenal Insuff Plan No acute need for renal replacement therapy at this time. Hypertension control with meds as ordered. Maintain hemodynamics stable. Avoid hypotension. Patient not on ACEI/ARB due to recent [facility] Monitor Input/Output, daily weights and renal function with basic metabolic panel continue with IVF but changed to NS as pt with hyponatremia hence better to avoid 0.45% saline hold lasix januvia dosed at 25 mg/d for low GFR. Check urine analysis, spot protein/creatinine, albumin/creatinine ratio, renal sonogram Anemia work up with TSAT/Ferritin/Vitamin B12/folate, serum protein electrophoresis with immunofixation, serum free light chain assay ([place]/Lambda) Dose meds/antibiotics for reduced GFR. Avoid fleets enema/magnesium based laxatives. Avoid nephrotoxins/NSAIDs/ iodinated contrast (unless needed emergently) Glycemic control Further work up/management as per primary team Thanks for allowing me to participate in care of your patient. Will follow patient with you. Please call if any Qs. had d/w team Dr Robert Lam Office: [phone] Chief Complaint; fever Reason for consult: Acute Kidney Injury HPI: Pt is a 63 F with hx of diabetes Mellitus ( years), hypertension (years) dCHF, DVT/PE s/p IVC filter, gout, hypothyroidism hyperlipidemia fibromyalgias depression/amxiety COPD presented with complaints of fever and cough, admitted for [facility] and ? COPD exacerbation Denies OTC/herbal meds or NSAIDs No recent iodinated contrast exposure. Noted obvious episodes of low BP (88/46). ROS: limited from pt Cardiovascular: No chest pain. Pulmonary: No shortness of breath Gastrointestinal: denies abdominal pain No nausea. No vomiting. Genitourinary: No pain while urinating. Denies blood in urine. All other negative except as mentioned in HPI Physical Examination: General Appearance: Comfortable, in no acute respiratory distress, co-operative . ill appearing, appears confused Vitals reviewed and noted as below Head; Atraumatic, normocephalic ENT: no ulcers no thrush. Tongue is midline/dry. Oropharynx: no rash or ulcers. EYES: Pupils are equal, round and reactive to light accommodation. Eye muscles and extraocular movement intact. Sclera is anicteric. Neck; supple no lymphadenopathy, no thyromegaly or bruit Lungs: Normal respiratory rate/effort. Breath sounds bilateral equal and clear Heart: Normal rate. s1s2 normal. No rub or gallop. Extremities: no edema. No varicose veins Neurological: Patient is alert, awake and oriented to person, place and time. No focal deficit. Strength bilateral appropriate and equal Skin: Warm and dry. Normal turgor. No rash. Palpitation: Normal elasticity for age Abdomen: Abdomen is soft. Bowel sounds +. There is no abdominal tenderness, no guarding/rigidity no organomegaly Psych: limited insight and normal affect/mood MSK: no joint tenderness or swelling. Digits and nails normal, no deformity. Rt leg in cast. : kidney or bladder not palpable Labs/imaging reviewed. Past medical history, past surgical history, family history, social history, allergy reviewed and noted as below Family hx: no hx of CKD. Rest non-contributory Hep B/C neg UA no protein Past Patient History - Infectious Disease Hx of Infectious Diseases: None - Past Medical History & Family History Past Medical History?: Yes - Past Social History Smoking Status: Never Smoked - CARDIAC Hx Cardiac Disorders: Yes Hx Cardia Arrhythmia: Yes Hx Congestive Heart Failure: Yes Hx Hypercholesterolemia: Yes Hx Hypertension: Yes - PULMONARY Hx Respiratory Disorders: Yes Hx Asthma: Yes Hx Chronic Obstructive Pulmonary Disease (COPD): Yes Hx Pulmonary Embolism: Yes (on Coumadin W/ IVC filter) - NEUROLOGICAL Hx Neurological Disorder: Yes HX Cerebrovascular Accident: Yes - HEENT Hx HEENT Problems: No - RENAL Hx Chronic Kidney Disease: No - ENDOCRINE/METABOLIC Hx Endocrine Disorders: Yes Hx Hypothyroidism: Yes - HEMATOLOGICAL/ONCOLOGICAL Hx Blood Disorders: Yes Hx Anemia: Yes - INTEGUMENTARY Hx Dermatological Problems: No - MUSCULOSKELETAL/RHEUMATOLOGICAL Hx Musculoskeletal Disorders: Yes Hx Arthritis: Yes (R THR /ORIF) Hx Falls: Yes Hx Fractures: Yes (R HIP) Hx Rheumatoid Arthritis: Yes - GASTROINTESTINAL Hx Gastrointestinal Disorders: Yes Hx Gall Bladder Disease: Yes - GENITOURINARY/GYNECOLOGICAL Hx Genitourinary Disorders: Yes Hx Urinary Tract Infection: Yes - PSYCHIATRIC Hx Psychophysiologic Disorder: Yes Hx Anxiety: Yes Hx Depression: Yes Hx Substance Use: No - SURGICAL HISTORY Hx Surgeries: Yes Hx Appendectomy: No Hx Cholecystectomy: Yes - ANESTHESIA Hx Anesthesia: Yes Hx Anesthesia Reactions: Yes (DIFFICULTY BREATHING) Meds Allergies/Adverse Reactions: Allergies Allergy/AdvReac Type Severity Reaction Status Date / Time No Known Allergies Allergy Verified 09/01/18 17:29 - Medications Medications: Current Medications Albuterol/Ipratropium (Duoneb 3 Mg/0.5 Mg (3 Ml) Ud) 3 ml IH Q4 PRN PRN Reason: Shortness of Breath Bupropion HCl (Wellbutrin) 75 mg PO DAILY [facility] Last Admin: 09/02/18 09:52 Dose: 75 mg Colchicine (Colocrys) 0.6 mg PO BID [facility] Last Admin: 09/02/18 09:52 Dose: 0.6 mg Fluticasone/Vilanterol (Breo Ellipta 100-25 Mcg Inh) 1 puff INH RQ24 [facility] Furosemide (Lasix) 20 mg PO DAILY [facility] Last Admin: 09/02/18 09:52 Dose: 20 mg Gabapentin (Neurontin) 300 mg PO HS [facility] Last Admin: 09/02/18 00:12 Dose: 300 mg Glipizide (Glucotrol) 10 mg PO BID [facility] Last Admin: 09/02/18 09:52 Dose: 10 mg Hydrocortisone (Cortef) 20 mg PO TID [facility] Last Admin: 09/02/18 13:52 Dose: 20 mg Ceftriaxone Sodium (Rocephin 2 Gm Ivpb) 2 gm in 100 mls @ 100 mls/hr IVPB Q24H [facility]; Protocol Last Admin: 09/01/18 23:41 Dose: Not Given Azithromycin (Zithromax 500mg In Ns Addvantage) 500 mg in 250 mls @ 167 mls/hr IVPB Q24H [facility]; Protocol Last Admin: 09/01/18 22:31 Dose: Not Given Metronidazole (Flagyl) 500 mg in 100 mls @ 100 mls/hr IVPB Q8H [facility]; Protocol Last Admin: 09/02/18 12:30 Dose: 100 mls/hr Sodium Chloride (Sodium Chloride 0.9%) 1,000 mls @ 100 mls/hr IV .Q10H [facility] Last Admin: 09/02/18 12:31 Dose: 100 mls/hr Insulin Aspart (Novolog) 0 unit SC ACHS [facility]; Protocol Last Admin: 09/02/18 12:02 Dose: Not Given Insulin Aspart (Novolog) 30 unit SC DAILY [facility] Last Admin: 09/02/18 09:58 Dose: Not Given Insulin Aspart (Novolog) 20 unit SC HS [facility] Levothyroxine Sodium (Synthroid) 100 mcg PO DAILY [facility] Last Admin: 09/02/18 09:52 Dose: 100 mcg Pantoprazole Sodium (Protonix Ec Tab) 40 mg PO DAILY [facility] Last Admin: 09/02/18 09:52 Dose: 40 mg Rivaroxaban (Xarelto) 20 mg PO DAILY [facility] Last Admin: 09/02/18 09:52 Dose: 20 mg Rosuvastatin Calcium (Crestor) 10 mg PO HS [facility] Saccharomyces Boulardii (Florastor) 250 mg PO Q12 [facility] Last Admin: 09/02/18 09:52 Dose: 250 mg Sitagliptin Phosphate (Januvia) 25 mg PO DAILY [facility] Results - Vital Signs Recent Vital Signs: Last Vital Signs Temp 98.3 F 09/02/18 08:52 Pulse 118 H 09/02/18 08:52 Resp 18 09/02/18 08:52 BP 118/78 09/02/18 09:52 Pulse Ox 99 09/02/18 08:52 - Labs Result Diagrams: 09/02/18 11:31 09/02/18 11:31 Labs: Laboratory Results - last 24 hr 09/01/18 09/01/18 09/01/18 17:35 17:35 17:35 WBC 12.4 H RBC 4.11 Hgb 9.0 L Hct 31.7 L MCV 77.1 L MCH 21.8 L MCHC 28.3 L RDW 19.0 H Plt Count 357 D MPV 9.1 Neut % (Auto) 55.6 Lymph % (Auto) 32.2 [place] % (Auto) 9.6 Eos % (Auto) 1.3 Baso % (Auto) 1.3 Neut # (Auto) 6.9 Lymph # (Auto) 4.0 [place] # (Auto) 1.2 H Eos # (Auto) 0.2 Baso # (Auto) 0.2 pO2 23 L VBG pH 7.26 L VBG pCO2 59 VBG HCO3 21.8 VBG Total CO2 28.3 H VBG O2 Sat (Calc) 39.3 L VBG Base Excess -1.7 L VBG Potassium 4.3 Sodium 135.0 132 Chloride 104.0 98 Glucose 104 Lactate 1.6 FiO2 21.0 Potassium 4.5 Carbon Dioxide 23 Anion Gap 16 BUN 44 H Creatinine 3.2 H Est GFR ( Amer) 18 Est GFR (Non-Af Amer) 15 POC Glucose (mg/dL) Random Glucose 109 H D Lactic Acid Calcium 8.1 L Iron TIBC % Saturation Total Bilirubin 0.4 AST 105 H D ALT 129 H D Alkaline Phosphatase 138 H Troponin I NT-Pro-B Natriuret Pep Total Protein 6.0 L Albumin 3.4 L Globulin 2.6 Albumin/Globulin Ratio 1.3 Procalcitonin Free T4 TSH 3rd Generation Venous Blood Potassium 4.3 Urine Color Urine Clarity Urine pH Ur Specific [place] Urine Protein Urine Glucose (UA) Urine Ketones Urine Blood Urine Nitrate Urine Bilirubin Urine Urobilinogen Ur Leukocyte Esterase Urine WBC (Auto) Urine RBC (Auto) Ur Squamous Epith Cells Urine Bacteria Hyaline Casts 09/01/18 09/01/18 09/01/18 18:14 18:23 21:26 WBC RBC Hgb Hct MCV MCH MCHC RDW Plt Count MPV Neut % (Auto) Lymph % (Auto) [place] % (Auto) Eos % (Auto) Baso % (Auto) Neut # (Auto) Lymph # (Auto) [place] # (Auto) Eos # (Auto) Baso # (Auto) pO2 VBG pH VBG pCO2 VBG HCO3 VBG Total CO2 VBG O2 Sat (Calc) VBG Base Excess VBG Potassium Sodium Chloride Glucose Lactate FiO2 Potassium Carbon Dioxide Anion Gap BUN Creatinine Est GFR ( Amer) Est GFR (Non-Af Amer) POC Glucose (mg/dL) 179 H Random Glucose Lactic Acid Calcium Iron TIBC % Saturation Total Bilirubin AST ALT Alkaline Phosphatase Troponin I 0.0380 NT-Pro-B Natriuret Pep 1090 H Total Protein Albumin Globulin Albumin/Globulin Ratio Procalcitonin Free T4 TSH 3rd Generation Venous Blood Potassium Urine Color [place] Urine Clarity Hazy Urine pH 5.0 Ur Specific [place] 1.020 Urine Protein Negative Urine Glucose (UA) Normal Urine Ketones Negative Urine Blood Negative Urine Nitrate Negative Urine Bilirubin Negative Urine Urobilinogen Normal Ur Leukocyte Esterase Neg Urine WBC (Auto) 1 Urine RBC (Auto) 1 Ur Squamous Epith Cells < 1 Urine Bacteria Rare Hyaline Casts 11-20 H 09/01/18 09/02/18 09/02/18 23:20 06:38 11:31 WBC 8.5 RBC 4.08 Hgb 9.2 L Hct 31.6 L MCV 77.4 L MCH 22.5 L MCHC 29.1 L RDW 19.3 H Plt Count 330 MPV 9.1 Neut % (Auto) 65.0 Lymph % (Auto) 20.2 [place] % (Auto) 10.9 H Eos % (Auto) 2.0 Baso % (Auto) 1.9 Neut # (Auto) 5.5 Lymph # (Auto) 1.7 [place] # (Auto) 0.9 H Eos # (Auto) 0.2 Baso # (Auto) 0.2 pO2 VBG pH VBG pCO2 VBG HCO3 VBG Total CO2 VBG O2 Sat (Calc) VBG Base Excess VBG Potassium Sodium Chloride Glucose Lactate FiO2 Potassium Carbon Dioxide Anion Gap BUN Creatinine Est GFR ( Amer) Est GFR (Non-Af Amer) POC Glucose (mg/dL) 127 H 73 Random Glucose Lactic Acid Calcium Iron TIBC % Saturation Total Bilirubin AST ALT Alkaline Phosphatase Troponin I NT-Pro-B Natriuret Pep Total Protein Albumin Globulin Albumin/Globulin Ratio Procalcitonin Free T4 TSH 3rd Generation Venous Blood Potassium Urine Color Urine Clarity Urine pH Ur Specific [place] Urine Protein Urine Glucose (UA) Urine Ketones Urine Blood Urine Nitrate Urine Bilirubin Urine Urobilinogen Ur Leukocyte Esterase Urine WBC (Auto) Urine RBC (Auto) Ur Squamous Epith Cells Urine Bacteria Hyaline Casts 09/02/18 09/02/18 09/02/18 11:31 11:31 11:31 WBC RBC Hgb Hct MCV MCH MCHC RDW Plt Count MPV Neut % (Auto) Lymph % (Auto) [place] % (Auto) Eos % (Auto) Baso % (Auto) Neut # (Auto) Lymph # (Auto) [place] # (Auto) Eos # (Auto) Baso # (Auto) pO2 VBG pH VBG pCO2 VBG HCO3 VBG Total CO2 VBG O2 Sat (Calc) VBG Base Excess VBG Potassium Sodium 135 Chloride 103 Glucose Lactate FiO2 Potassium 4.1 Carbon Dioxide 22 Anion Gap 13 BUN 35 H Creatinine 1.9 H Est GFR ( Amer) 32 Est GFR (Non-Af Amer) 27 POC Glucose (mg/dL) Random Glucose 84 D Lactic Acid 0.9 Calcium 8.1 L Iron TIBC % Saturation Total Bilirubin 0.3 AST 95 H ALT 107 H Alkaline Phosphatase 143 H Troponin I NT-Pro-B Natriuret Pep Total Protein 5.8 L Albumin 3.2 L Globulin 2.6 Albumin/Globulin Ratio 1.3 Procalcitonin 0.99 H Free T4 TSH 3rd Generation 3.87 Venous Blood Potassium Urine Color Urine Clarity Urine pH Ur Specific [place] Urine Protein Urine Glucose (UA) Urine Ketones Urine Blood Urine Nitrate Urine Bilirubin Urine Urobilinogen Ur Leukocyte Esterase Urine WBC (Auto) Urine RBC (Auto) Ur Squamous Epith Cells Urine Bacteria Hyaline Casts 09/02/18 09/02/18 09/02/18 11:31 11:46 13:41 WBC RBC Hgb Hct MCV MCH MCHC RDW Plt Count MPV Neut % (Auto) Lymph % (Auto) [place] % (Auto) Eos % (Auto) Baso % (Auto) Neut # (Auto) Lymph # (Auto) [place] # (Auto) Eos # (Auto) Baso # (Auto) pO2 VBG pH VBG pCO2 VBG HCO3 VBG Total CO2 VBG O2 Sat (Calc) VBG Base Excess VBG Potassium Sodium Chloride Glucose Lactate FiO2 Potassium Carbon Dioxide Anion Gap BUN Creatinine Est GFR ( Amer) Est GFR (Non-Af Amer) POC Glucose (mg/dL) 97 Random Glucose Lactic Acid Calcium Iron 47 TIBC 335 % Saturation 14 L Total Bilirubin AST ALT Alkaline Phosphatase Troponin I NT-Pro-B Natriuret Pep Total Protein Albumin Globulin Albumin/Globulin Ratio Procalcitonin Free T4 1.50 TSH 3rd Generation Venous Blood Potassium Urine Color Urine Clarity Urine pH Ur Specific [place] Urine Protein Urine Glucose (UA) Urine Ketones Urine Blood Urine Nitrate Urine Bilirubin Urine Urobilinogen Ur Leukocyte Esterase Urine WBC (Auto) Urine RBC (Auto) Ur Squamous Epith Cells Urine Bacteria Hyaline Casts
[2018-09-02 14:57] LABS: FERRITIN 34.8 ng/mL
[2018-09-02 15:28] LABS: FOLATE > 20.0 ng/mL
--- NOTE | 2018-09-02 16:35 | US ---
Date of service: 09/02/2018 PROCEDURE: Ultrasound of the Kidneys HISTORY: [facility] COMPARISON: CT abdomen and pelvis without contrast performed 11/20/15 TECHNIQUE: Sonogram of the kidneys. FINDINGS: RIGHT KIDNEY: Measures: 9.7 x 4.2 x 4.7 cm. Echogenic renal parenchyma. Cortical thinning. No obstructing calculus, hydronephrosis, or renal cyst identified. LEFT KIDNEY: Measures: 9.4 x 4.7 x 4.2 cm. Cortical thinning. No obstructing calculus, hydronephrosis, or renal cyst identified. OTHER FINDINGS: None. IMPRESSION: Echogenic renal parenchyma the right kidney. Bilateral cortical thinning. Correlate clinically for medical renal disease.
[2018-09-02] MEDS ORDERED: diltiaZEM 120 mg/24 Hours CD Cap PO SCH (17:00)
[2018-09-02] MEDS: cefTRIAXone 2 GM in Sodium Chloride 0.9% 100 ML IVPB SCH (21:45)
[2018-09-02] MEDS: Azithromycin 500 MG in Sodium Chloride 0.9% 250 ML IVPB SCH (22:30)
[2018-09-03] MEDS: metroNIDAZOLE IV 500 mg/100 ml 500 MG/100 ML BAG IVPB SCH ×3 (04:00→19:26)
[2018-09-03 07:18] LABS: EOS # 0.1 K/uL (0.0-0.7); HEMOGLOBIN 8.6 g/dL (11.0-16.0); LYMPH % 22.2 % (20.0-40.0); MONO # 0.9 K/uL (0.0-0.8)
[2018-09-03 07:27] LABS: BASO # 0.2 K/uL (0.0-0.2); BASO % 2.9 % (0.0-2.0); EOS % 1.6 % (0.0-4.0); LYMPH # 1.6 K/uL (1.0-4.3); MEAN CELL VOLUME 77.5 fL (81.0-99.0); MEAN CORPUSCULAR HEMOGLOBIN 22.5 pg (27.0-31.0); MEAN CORPUSCULAR HGB CONC 29.1 g/dL (33.0-37.0); MEAN PLATELET VOLUME 9.2 fL (7.2-11.7); MONO % 12.2 % (0.0-10.0); NEUT # 4.5 K/uL (1.8-7.0); NEUT % 61.1 % (50.0-75.0); NRBC % 0.3 % (0.0-2.0); RBC 3.82 Mil/uL (3.80-5.20); RED CELL DISTRIBUTION WIDTH 18.9 % (11.5-14.5); WHITE BLOOD COUNT 7.4 K/uL (4.8-10.8)
[2018-09-03] MEDS: Sodium Chloride 0.9% 1,000 ML IV SCH ×2 (07:47→19:28)
[2018-09-03] MEDS: (Novolog) Insulin Aspart, Recombinant 100 u/ml 10 ml vial SC SCH ×6 (07:48→21:59)
[2018-09-03 07:50] LABS: CALCIUM 8.2 mg/dl (8.6-10.4)
[2018-09-03 07:51] LABS: ALB/GLOB RATIO 1.2 (1.0-2.1)
[2018-09-03] MEDS: Magnesium Sulfate 1 gm in D5W 1 GM/100 ML BAG IVPB SCH ×5 (09:05→15:16)
[2018-09-03] MEDS: diltiaZEM 120 mg/24 Hours CD Cap PO SCH (09:23)
[2018-09-03] MEDS: Potassium Chloride 20 mEq ER Tab PO SCH (09:24)
[2018-09-03] MEDS: Saccharomyces Boulardi 250 mg Cap PO SCH ×2 (09:24→21:57)
[2018-09-03] MEDS: Levothyroxine 100 MCG TAB PO SCH (09:25)
[2018-09-03] MEDS: Pantoprazole 40 mg EC Tab PO SCH (09:25)
[2018-09-03] MEDS: Magnesium Oxide 400 mg Tab UD PO SCH ×2 (11:35→19:23)
[2018-09-03] MEDS: Ergocalciferol 50,000 Intl Units Cap PO SCH (11:35)
--- NOTE | 2018-09-03 13:25 | CP.PCM.PN ---
Subjective - Date & Time of Evaluation Date of Evaluation: 09/03/18 Time of Evaluation: 13:23 - Subjective Subjective: Nephrology Consultation Note: Assessment: Stable Acute Kidney Injury (N17.9) likely due to hypotension/sepsis/renal hypoperfusion as also evident by concomitant abnormal AST/ALT: IMPROVING Anemia hyponatremia GPC sepsis hypomagnesemia DM, HTN dCHF, DVT/PE s/p IVC filter, gout, hypothyroidism hyperlipidemia fibromyalgias depression/anxiety COPD Adrenal Insuff Plan No acute need for renal replacement therapy at this time. Hypertension control with meds as ordered. Maintain hemodynamics stable. Avoid hypotension. Patient not on ACEI/ARB due to recent KARMA Monitor Input/Output, daily weights and renal function with basic metabolic panel continue with IVF for another day hold lasix supplement lytes as needed Check urine analysis, spot protein/creatinine, albumin/creatinine ratio, renal sonogram Anemia work up with TSAT/Ferritin/Vitamin B12/folate, serum protein electrophoresis with immunofixation, serum free light chain assay ([place]/Lambda) Dose meds/antibiotics for improved GFR. Avoid nephrotoxins/NSAIDs/ iodinated con trast (unless needed emergently) Glycemic control Further work up/management as per primary team Thanks for allowing me to participate in care of your patient. Will follow patient with you. Please call if any Qs. had d/w team Dr Robert Lam Office: [phone] Chief Complaint; fever Reason for consult: Acute Kidney Injury HPI: Pt is a 63 F with hx of diabetes Mellitus ( years), hypertension (years) dCHF, DVT/PE s/p IVC filter, gout, hypothyroidism hyperlipidemia fibromyalgias depression/amxiety COPD presented with complaints of fever and cough, admitted for KARMA and ? COPD exacerbation Denies OTC/herbal meds or NSAIDs No recent iodinated contrast exposure. Noted obvious episodes of low BP (88/46). ROS: limited from pt Cardiovascular: No chest pain. Pulmonary: No shortness of breath Gastrointestinal: denies abdominal pain No nausea. No vomiting. Genitourinary: No pain while urinating. Denies blood in urine. All other negative except as mentioned in HPI Physical Examination: General Appearance: Comfortable, in no acute respiratory distress, co-operative . better appearing Vitals reviewed and noted as below Head; Atraumatic, normocephalic ENT: no ulcers no thrush. Tongue is midline/dry. Oropharynx: no rash or ulcers. EYES: Pupils are equal, round and reactive to light accommodation. Eye muscles and extraocular movement intact. Sclera is anicteric. Neck; supple no lymphadenopathy, no thyromegaly or bruit Lungs: Normal respiratory rate/effort. Breath sounds bilateral equal and clear Heart: Normal rate. s1s2 normal. No rub or gallop. Extremities: trace edema. No varicose veins Neurological: Patient is alert, awake and oriented to person, place and time. No focal deficit. Strength bilateral appropriate and equal Skin: Warm and dry. Normal turgor. No rash. Palpitation: Normal elasticity for age Abdomen: Abdomen is soft. Bowel sounds +. There is no abdominal tenderness, no guarding/rigidity no organomegaly Psych: limited insight and normal affect/mood MSK: no joint tenderness or swelling. Digits and nails normal, no deformity. Rt leg in splint : kidney or bladder not palpable Labs/imaging reviewed. Past medical history, past surgical history, family history, social history, allergy reviewed and noted as below Family hx: no hx of CKD. Rest non-contributory Hep B/C neg UA no protein Objective - Vital Signs/Intake and Output Vital Signs (last 24 hours): Temp Pulse Resp BP Pulse Ox 97.9 F 123 H 20 122/64 95 09/03/18 08:06 09/03/18 08:06 09/03/18 08:06 09/03/18 08:06 09/03/18 08:06 Intake and Output: 09/03/18 09/03/18 06:59 18:59 Intake Total 1150 Output Total 550 Balance 600 - Medications Medications: Current Medications Albuterol/Ipratropium (Duoneb 3 Mg/0.5 Mg (3 Ml) Ud) 3 ml IH RQ4 PRN PRN Reason: Shortness of Breath Bupropion HCl (Wellbutrin) 75 mg PO DAILY [facility] Last Admin: 09/03/18 09:24 Dose: 75 mg Colchicine (Colocrys) 0.6 mg PO BID [facility] Last Admin: 09/03/18 09:24 Dose: 0.6 mg Cyclobenzaprine HCl (Flexeril) 5 mg PO TID [facility] Last Admin: 09/03/18 13:19 Dose: 5 mg Diltiazem HCl (Cardizem Cd) 120 mg PO DAILY [facility] Last Admin: 09/03/18 09:23 Dose: 120 mg Ergocalciferol (Drisdol 50,000 Intl Units Cap) 1 cap PO Q7D [facility] Last Admin: 09/03/18 11:35 Dose: 1 cap Fluticasone/Vilanterol (Breo Ellipta 100-25 Mcg Inh) 1 puff INH RQ24 [facility] Furosemide (Lasix) 20 mg PO DAILY [facility] Last Admin: 09/02/18 09:52 Dose: 20 mg Gabapentin (Neurontin) 300 mg PO HS [facility] Last Admin: 09/02/18 21:45 Dose: 300 mg Glipizide (Glucotrol) 10 mg PO BID [facility] Last Admin: 09/03/18 11:35 Dose: 10 mg Hydrocortisone (Cortef) 20 mg PO TID [facility] Last Admin: 09/03/18 13:19 Dose: 20 mg Metronidazole (Flagyl) 500 mg in 100 mls @ 100 mls/hr IVPB Q8H [facility]; Protocol Last Admin: 09/03/18 13:19 Dose: 100 mls/hr Sodium Chloride (Sodium Chloride 0.9%) 1,000 mls @ 100 mls/hr IV .Q10H [facility] Last Admin: 09/03/18 07:47 Dose: Not Given Ceftriaxone Sodium 2 gm/ (Sodium Chloride) 100 mls @ 100 mls/hr IVPB Q24H [facility]; Protocol Last Admin: 09/02/18 21:45 Dose: 100 mls/hr Azithromycin 500 mg/ Sodium (Chloride) 250 mls @ 167 mls/hr IVPB Q24H [facility]; Protocol Last Admin: 09/02/18 22:30 Dose: 167 mls/hr Vancomycin HCl 1 gm/ Sodium (Chloride) 250 mls @ 166.7 mls/hr IVPB Q12 [facility]; Protocol Last Admin: 09/03/18 11:36 Dose: Not Given Insulin Aspart (Novolog) 0 unit SC ACHS [facility]; Protocol Last Admin: 09/03/18 13:18 Dose: 1 unit Insulin Aspart (Novolog) 30 unit SC DAILY [facility] Last Admin: 09/03/18 09:11 Dose: Not Given Insulin Aspart (Novolog) 20 unit SC HS [facility] Last Admin: 09/02/18 21:46 Dose: Not Given Levothyroxine Sodium (Synthroid) 100 mcg PO DAILY [facility] Last Admin: 09/03/18 09:25 Dose: 100 mcg Magnesium Oxide (Mag-Ox) 400 mg PO BID [facility] Last Admin: 09/03/18 11:35 Dose: 400 mg Pantoprazole Sodium (Protonix Ec Tab) 40 mg PO DAILY [facility] Last Admin: 09/03/18 09:25 Dose: 40 mg Potassium Chloride (K-Dur 20 Meq Er Tab) 20 meq PO DAILY [facility] Stop: 09/05/18 10:01 Last Admin: 09/03/18 09:24 Dose: 20 meq Rivaroxaban (Xarelto) 20 mg PO DAILY [facility] Last Admin: 09/03/18 09:25 Dose: 20 mg Rosuvastatin Calcium (Crestor) 10 mg PO HS [facility] Last Admin: 09/02/18 21:45 Dose: 10 mg Saccharomyces Boulardii (Florastor) 250 mg PO Q12 [facility] Last Admin: 09/03/18 09:24 Dose: 250 mg Sitagliptin Phosphate (Januvia) 100 mg PO DAILY [facility] - Labs Labs: 09/03/18 07:12 09/03/18 07:12
[2018-09-03] MEDS: cefTRIAXone 2 GM in Sodium Chloride 0.9% 100 ML IVPB SCH (21:57)
[2018-09-04] MEDS: Azithromycin 500 MG in Sodium Chloride 0.9% 250 ML IVPB SCH (01:00)
[2018-09-04] MEDS: metroNIDAZOLE IV 500 mg/100 ml 500 MG/100 ML BAG IVPB SCH ×3 (01:59→18:13)
[2018-09-04] MEDS: Levothyroxine 100 MCG TAB PO SCH (05:43)
[2018-09-04 07:38] LABS: BASO # 0.1 K/uL (0.0-0.2); LYMPH # 1.3 K/uL (1.0-4.3); NRBC % 0.1 % (0.0-2.0); WHITE BLOOD COUNT 7.8 K/uL (4.8-10.8)
[2018-09-04 07:44] LABS: EOS % 0.1 % (0.0-4.0); HEMOGLOBIN 8.8 g/dL (11.0-16.0); LYMPH % 16.6 % (20.0-40.0); MEAN CORPUSCULAR HEMOGLOBIN 22.8 pg (27.0-31.0); MEAN CORPUSCULAR HGB CONC 29.6 g/dL (33.0-37.0); MEAN PLATELET VOLUME 8.6 fL (7.2-11.7); MONO # 0.9 K/uL (0.0-0.8); MONO % 11.8 % (0.0-10.0); NEUT # 5.5 K/uL (1.8-7.0); NEUT % 70.5 % (50.0-75.0); RBC 3.88 Mil/uL (3.80-5.20); RED CELL DISTRIBUTION WIDTH 19.3 % (11.5-14.5)
[2018-09-04 08:06] LABS: ALB/GLOB RATIO 1.2 (1.0-2.1); ALBUMIN 2.9 g/dL (3.5-5.0); ALT/SGPT 148 U/L (9-52); AST/SGOT 140 U/L (14-36); BLOOD UREA NITROGEN 16 mg/dL (7-17); CALCIUM 8.4 mg/dl (8.6-10.4); GFR NON-AFRICAN AMERICAN > 60
[2018-09-04] MEDS: (Novolog) Insulin Aspart, Recombinant 100 u/ml 10 ml vial SC SCH ×6 (09:11→21:46)
[2018-09-04] MEDS: Sodium Chloride 0.9% 1,000 ML IV SCH (09:36)
[2018-09-04] MEDS: Pantoprazole 40 mg EC Tab PO SCH (10:38)
[2018-09-04] MEDS: Magnesium Oxide 400 mg Tab UD PO SCH ×3 (10:38→18:25)
[2018-09-04] MEDS: diltiaZEM 120 mg/24 Hours CD Cap PO SCH (10:39)
[2018-09-04] MEDS: Saccharomyces Boulardi 250 mg Cap PO SCH ×2 (10:40→21:40)
[2018-09-04] MEDS: Potassium Chloride 20 mEq ER Tab PO SCH (10:40)
--- NOTE | 2018-09-04 12:20 | CP.PCM.PN ---
Subjective - Date & Time of Evaluation Date of Evaluation: 09/04/18 Time of Evaluation: 12:20 - Subjective Subjective: Nephrology Consultation Note: Assessment: Stable Acute Kidney Injury (N17.9) likely due to hypotension/sepsis/renal hypoperfusion as also evident by concomitant abnormal AST/ALT: IMPROVING Anemia hyponatremia GPC sepsis hypomagnesemia DM, HTN dCHF, DVT/PE s/p IVC filter, gout, hypothyroidism hyperlipidemia fibromyalgias depression/anxiety COPD Adrenal Insuff Plan No acute need for renal replacement therapy at this time. Hypertension control with meds as ordered. Maintain hemodynamics stable. Avoid hypotension. Patient not on ACEI/ARB due to recent KARMA Monitor Input/Output, daily weights and renal function with basic metabolic panel continue with IVF for another day @ 50 ml/hr hold lasix for today supplement lytes as needed Check urine analysis, spot protein/creatinine, albumin/creatinine ratio, renal sonogram Anemia work up with TSAT/Ferritin/Vitamin B12/folate, serum protein electrophoresis with immunofixation, serum free light chain assay ([place]/Lambda) Dose meds/antibiotics for improved GFR. Glycemic control Further work up/management as per primary team Thanks for allowing me to participate in care of your patient. Will follow patient with you. Please call if any Qs. had d/w team Dr Robert Lam Office: [phone] Chief Complaint; fever Reason for consult: Acute Kidney Injury HPI: Pt is a 63 F with hx of diabetes Mellitus ( years), hypertension (years) dCHF, DVT/PE s/p IVC filter, gout, hypothyroidism hyperlipidemia fibromyalgias depression/amxiety COPD presented with complaints of fever and cough, admitted for KARMA and ? COPD exacerbation Denies OTC/herbal meds or NSAIDs No recent iodinated contrast exposure. Noted obvious episodes of low BP (88/46). ROS: limited from pt Cardiovascular: No chest pain. Pulmonary: No shortness of breath Gastrointestinal: denies abdominal pain No nausea. No vomiting. Genitourinary: No pain while urinating. Denies blood in urine. All other negative except as mentioned in HPI Physical Examination: General Appearance: Comfortable, in no acute respiratory distress, co-operative . better appearing Vitals reviewed and noted as below Head; Atraumatic, normocephalic ENT: no ulcers no thrush. Tongue is midline/dry. Oropharynx: no rash or ulcers. EYES: Pupils are equal, round and reactive to light accommodation. Eye muscles and extraocular movement intact. Sclera is anicteric. Neck; supple no lymphadenopathy, no thyromegaly or bruit Lungs: Normal respiratory rate/effort. Breath sounds bilateral equal and few basal crackle Heart: Normal rate. s1s2 normal. No rub or gallop. Extremities: trace edema. No varicose veins Neurological: Patient is alert, awake and oriented to person, place and time. No focal deficit. Strength bilateral appropriate and equal Skin: Warm and dry. Normal turgor. No rash. Palpitation: Normal elasticity for age Abdomen: Abdomen is soft. Bowel sounds +. There is no abdominal tenderness, no guarding/rigidity no organomegaly Psych: limited insight and normal affect/mood MSK: no joint tenderness or swelling. Digits and nails normal, no deformity. Rt leg in splint : kidney or bladder not palpable Labs/imaging reviewed. Past medical history, past surgical history, family history, social history, allergy reviewed and noted as below Family hx: no hx of CKD. Rest non-contributory Hep B/C neg UA no protein Objective - Vital Signs/Intake and Output Vital Signs (last 24 hours): Temp Pulse Resp BP Pulse Ox 97.9 F 110 H 23 149/87 96 09/04/18 08:00 09/04/18 10:42 09/04/18 08:00 09/04/18 10:42 09/04/18 10:42 Intake and Output: 09/04/18 09/04/18 06:59 18:59 Output Total 900 Balance -900 - Medications Medications: Current Medications Albuterol/Ipratropium (Duoneb 3 Mg/0.5 Mg (3 Ml) Ud) 3 ml IH RQ4 PRN PRN Reason: Shortness of Breath Bupropion HCl (Wellbutrin) 75 mg PO DAILY [facility] Last Admin: 09/04/18 10:48 Dose: 75 mg Colchicine (Colocrys) 0.6 mg PO BID [facility] Last Admin: 09/04/18 10:40 Dose: 0.6 mg Cyclobenzaprine HCl (Flexeril) 5 mg PO TID [facility] Last Admin: 09/04/18 10:40 Dose: 5 mg Diazepam (Valium) 5 mg PO BID [facility] Dicyclomine HCl (Bentyl) 20 mg PO TID [facility] Diltiazem HCl (Cardizem Cd) 120 mg PO DAILY [facility] Last Admin: 09/04/18 10:39 Dose: 120 mg Ergocalciferol (Drisdol 50,000 Intl Units Cap) 1 cap PO Q7D [facility] Last Admin: 09/03/18 11:35 Dose: 1 cap Fluticasone/Vilanterol (Breo Ellipta 100-25 Mcg Inh) 1 puff INH RQ24 [facility] Furosemide (Lasix) 20 mg PO DAILY [facility] Last Admin: 09/02/18 09:52 Dose: 20 mg Gabapentin (Neurontin) 300 mg PO HS [facility] Last Admin: 09/03/18 21:58 Dose: 300 mg Glipizide (Glucotrol) 10 mg PO BID [facility] Last Admin: 09/04/18 10:40 Dose: 10 mg Hydrocortisone (Cortef) 20 mg PO TID [facility] Last Admin: 09/04/18 10:39 Dose: 20 mg Metronidazole (Flagyl) 500 mg in 100 mls @ 100 mls/hr IVPB Q8H [facility]; Protocol Last Admin: 09/04/18 01:59 Dose: 100 mls/hr Ceftriaxone Sodium 2 gm/ (Sodium Chloride) 100 mls @ 100 mls/hr IVPB Q24H [facility]; Protocol Last Admin: 09/03/18 21:57 Dose: 100 mls/hr Azithromycin 500 mg/ Sodium (Chloride) 250 mls @ 167 mls/hr IVPB Q24H [facility]; Protocol Last Admin: 09/04/18 01:00 Dose: 167 mls/hr Vancomycin HCl 1 gm/ Sodium (Chloride) 250 mls @ 166.7 mls/hr IVPB Q12 [facility]; Protocol Last Admin: 09/04/18 10:31 Dose: 166.7 mls/hr Sodium Chloride (Sodium Chloride 0.9%) 1,000 mls @ 50 mls/hr IV .Q20H [facility] Stop: 09/05/18 09:26 Last Admin: 09/04/18 09:36 Dose: 50 mls/hr Insulin Aspart (Novolog) 0 unit SC ACHS [facility]; Protocol Last Admin: 09/04/18 09:11 Dose: 3 unit Insulin Aspart (Novolog) 30 unit SC DAILY [facility] Last Admin: 09/04/18 10:41 Dose: Not Given Insulin Aspart (Novolog) 20 unit SC HS [facility] Last Admin: 09/03/18 21:59 Dose: 20 unit Levothyroxine Sodium (Synthroid) 100 mcg PO 0630 [facility] Last Admin: 09/04/18 05:43 Dose: 100 mcg Magnesium Oxide (Mag-Ox) 400 mg PO BID [facility] Last Admin: 09/04/18 10:38 Dose: 400 mg Ondansetron HCl (Zofran Inj) 4 mg IVP Q8 PRN PRN Reason: Nausea/Vomiting Pantoprazole Sodium (Protonix Ec Tab) 40 mg PO DAILY [facility] Last Admin: 09/04/18 10:38 Dose: 40 mg Potassium Chloride (K-Dur 20 Meq Er Tab) 20 meq PO DAILY [facility] Stop: 09/05/18 10:01 Last Admin: 09/04/18 10:40 Dose: 20 meq Rivaroxaban (Xarelto) 20 mg PO DAILY [facility] Last Admin: 09/04/18 10:48 Dose: 20 mg Rosuvastatin Calcium (Crestor) 10 mg PO HS [facility] Last Admin: 09/03/18 21:58 Dose: 10 mg Saccharomyces Boulardii (Florastor) 250 mg PO Q12 [facility] Last Admin: 09/04/18 10:40 Dose: 250 mg Sitagliptin Phosphate (Januvia) 100 mg PO DAILY [facility] Last Admin: 09/04/18 10:38 Dose: 100 mg - Labs Labs: 09/04/18 07:31 09/04/18 07:31
[2018-09-04] MEDS ORDERED: Albuterol-Ipratrop 3 mg / 0.5 (3 ml) UD INH STA (14:34)
--- NOTE | 2018-09-04 14:36 | PCM.RRT ---
<MartinezBabita starksPaula - Last Filed: 09/04/18 14:43> SEED TESTER Nurses Assessment - Situation Date: 09/04/18 Time SEED TESTER was called: 14:20 SEED TESTER Responder Arrival Time:: 14:25 SEED TESTER Location:: Med/Surg SEED TESTER Reason for Call: Respiratory Distress SEED TESTER Called By: RN New IV Insertion Tolerance: Fair - Constitutional Appears: No Acute Distress, Other (dry on exam; patient appears sedated s/p receiving valium ) - Head Head Exam: ATRAUMATIC, NORMAL INSPECTION - Eyes Eye Exam: EOMI, Normal appearance - Respiratory Exam Respiratory Exam: Clear to Ausculation Bilateral, NORMAL BREATHING PATTERN - Cardiovascular Exam Cardiovascular Exam: Tachycardia, REGULAR RHYTHM, +S1, +S2 - Neurological Exam Neurological Exam: Awake - Extremities Exam Extremities Exam: Pedal Edema (+1 pedal edema) Plan - Assessment of Findings&Treatment Plan 63 year old female who was admitted for fever and diarrhea. RN called SEED TESTER for shortness of breath. Upon arrival her vitals are: B/P 157/99, HR 133; Temp 97.8; 100% on 3L NC. Patient is drowsy as she received valium. Chest xray, ABG with lactate, CBC, CMP, EKG, duoneb treatments were ordered. Temperature was taken per rectal and measured at 100. Patient given Tylenol 650mg [place]. Patient was given Solumedrol 40mg IV once and a duoneb treatment. per nurse Dr. Gutierres was notified. <Cinthya Farrell V - Last Filed: 09/04/18 15:38> Attending/Attestation - Attestation I have personally seen and examined this patient.: Yes I have fully participated in the care of the patient.: Yes I have reviewed all pertinent clinical information, including history, physical exam and plan: Yes Notes (Text): This is a 63-year-old female with past medical history including hypertension, DVT/PE on status post IVC filter as well Xarelto, fibromyalgia came in for fever and diarrhea. Rapid response called for shortness of breath. Patient has recei bruce Valium prior to arrival per Patient rectal temperature noted to be 100 and she is warm on exam. Infectious disease on board help appreciated EKG was repeated sinus tachycardia noted on EKG above 130s prior EKG from 228 oh sinus tach as well. Patient had received Cardizem earlier today per discussion with nurse Patient is no longer having diarrhea a looks scanned per nurse Blood cultures were repeat repeated today prior blood cultures noted for 1 out of 2 bottles of coag negative staph Patient is on IV antibiotic including Flagyl, IV vancomycin, Rocephin, azithromycin, held and azithromycin given that patient comes from long term does not seem appropriate Patient did not use a DuoNeb treatment today order for one stat dose Cymetra 40 mg IV x1 ABG obtained no noted hypoxia or CO2 retention pH is normal Chest x-ray is about the same compared to 228 Noted that patient has had 2 prior CTs it per review of the EMR however the last 2 CTs tonight were not major protocol Renal function is good patient will be started by nephrology on 50 cc/h this morning Patient does look clinically dry on exam noted over the lips and a little bit pale Nursing staff has informed Dr. ngo in regards to event Review of meds held gabapentin and Valium given patient is slightly lethargic but is arousable talking to us. We will continue to monitor on telemetry
[2018-09-04 14:40] LABS: ABG ALLEN TEST POS; ARTERIAL BLOOD GAS HCO3 22.1 mmol/L (21-28); ARTERIAL BLOOD GAS O2 SAT 97.5 % (95-98); ARTERIAL BLOOD GAS PCO2 34 mm/Hg (35-45); ARTERIAL BLOOD GAS PH 7.39 (7.35-7.45); ARTERIAL BLOOD GAS PO2 87 mm/Hg (80-100); ARTERIAL BLOOD GAS TCO2 21.6 mmol/L (22-28)
[2018-09-04 15:14] LABS: BASO # 0.1 K/uL (0.0-0.2); BASO % 0.9 % (0.0-2.0); EOS # 0.1 K/uL (0.0-0.7); EOS % 1.5 % (0.0-4.0); HEMOGLOBIN 9.4 g/dL (11.0-16.0); LYMPH # 1.5 K/uL (1.0-4.3); LYMPH % 16.5 % (20.0-40.0); MEAN CELL VOLUME 77.2 fL (81.0-99.0); MEAN CORPUSCULAR HEMOGLOBIN 22.6 pg (27.0-31.0); MEAN CORPUSCULAR HGB CONC 29.3 g/dL (33.0-37.0); MEAN PLATELET VOLUME 8.6 fL (7.2-11.7); MONO # 1.1 K/uL (0.0-0.8); MONO % 11.5 % (0.0-10.0); NEUT # 6.3 K/uL (1.8-7.0); NEUT % 69.6 % (50.0-75.0); NRBC % 0.2 % (0.0-2.0); RBC 4.14 Mil/uL (3.80-5.20); WHITE BLOOD COUNT 9.1 K/uL (4.8-10.8)
--- NOTE | 2018-09-04 15:14 | CP.PCM.CON ---
History of Present Illness - History of Present Illness History of Present Illness: 63 year old female is referred to the ED from sub-acute rehab for evaluation of fever. Patient was recently admitted for a leg fracture, pneumonia, and COPD from August 01-August 16. septic work up reveals 1/2 sets coag neg kathrinh ID consulted for fever and bacteremia Recently an BOAT DISPATCHER was called because of tachycardia - Medical History PMH: Anemia, Anxiety, Arthritis (R THR /ORIF), Asthma, Cardia Arrhythmia, CHF, COPD, Depression, Diabetes, Deep Vein Thrombosis, Fibromyalgia, Fractures (R HIP), Gall Bladder Disease, HTN, Hypercholesterolemia, Hyperlipidemia, Hypothyroidism, Pulmonary Embolism (on Coumadin W/ IVC filter), Rheumatoid Arthritis Denies: Chronic Kidney Disease Surgical History: Back Surgery, Cholecystectomy Denies: Appendectomy - [facility] Procedures CENTRAL VENOUS CATHETER PLACEMENT WITH GUIDANCE (09/28/14) ENDOSC POLYPECTOMY OF LG INTEST (09/08/14) ESOPHAGOGASTRODUODENOSCOPY [EGD] W/CLOSED BIOPSY (09/08/14) EXCISION OF STOMACH, ENDO, DIAGN (11/19/15) REPOSITION R UP FEMUR WITH INTRAMED FIX, OPEN APPROACH (03/14/17) SPINAL CANAL EXPLOR NEC (09/08/14) Review of Systems - Constitutional Constitutional: As Per HPI, Chills, Fever, Malaise - EENT Eyes: absent: As Per HPI, Blind Spots, Blurred Vision, Change in Vision, Decreased Night Vision, Diplopia, Discharge, Dry Eye, Exophthalmos, Floaters, I rritation, Itchy Eyes, Loss of Peripheral Vision, Pain, Photophobia, Requires Corrective Lenses, Sees Flashes, Spots in Vision, Tunnel Vision, Other Visual Disturbances, Loss of Vision, Other Ears: absent: As Per HPI, Decreased Hearing, Ear Discharge, Ear Pain, Tinnitus, Abnormal Hearing, Disequilibrium, Dizziness, Other Nose/Mouth/Throat: absent: As Per HPI, Epistaxis, Nasal Congestion, Nasal Discharge, Nasal Obstruction, Nasal Trauma, Nose Pain, Post Nasal Drip, Sinus Pain, Sinus Pressure, Bleeding Gums, Change in Voice, Dental Pain, Dry Mouth, Dysphagia, Halitosis, Hoarsness, Lip Swelling, Mouth Lesions, Mouth Pain, Odynophagia, Sore Throat, Throat Swelling, Tongue Swelling, Facial Pain, Neck Pain, Neck Mass, Other - Breasts Breasts: absent: As Per HPI, Change in Shape, Mass, Pain, Nipple Discharge, Nipple Inversion, Skin Changes, Swelling, Other - Cardiovascular Cardiovascular: As Per HPI - Respiratory Respiratory: As Per HPI, Cough - Gastrointestinal Gastrointestinal: absent: As Per HPI, Abdominal Pain, Belching, Bloating, Change in Bowel Habits, Change in Stool Character, Coffee Ground Emesis, Constipation, Cramping, Diarrhea, Dyspepsia, Dysphagia, Early Satiety, Excessive Flatus, Fecal Incontinence, Heartburn, Hematemesis, Hematochezia, Loose Stools, Melena, Nausea, Odynophagia, Temesmus, Vomiting, Other - Genitourinary Genitourinary: absent: As Per HPI, Change in Urinary Stream, Difficulty Urinating, Dysuria, Flank Pain, Hematuria, Pyuria, Nocturia, Urinary Incontinence, Urinary Frequency, Urinary Hesitance, Urinary Urgency, Voiding Freq/Small Amts, Freq UTI, Hx Renal/Bladder Calculi, Hx /Renal Surgery, Bladder Distension, Other - Reproductive: Female Reproductive:Female: absent: As Per HPI, Amenorrhea, Amenorrhea/ Control, Currently Menstual, Cycle <21 Days, Cycle >35 Days, Cycle Variable, Menses 1-7 Days, Menses >/= 8 Days, Menses Variable, Cycle > 4 Weeks Between, No Menses for 6 Months, Heavy Menses, Light Menses, Normal Menses, Spotting Between Cycles, S/P Hysterectomy, Menopausal, Post Menopausal, Premenarche, Abnormal Vaginal Bleeding, Dysmenorrhea, Dyspareunia, Genital Lesions, Genital Pruritis, Pelvic Pain, Prolapse Symptoms, Sexual Dysfunction, Vaginal Discharge, Vaginal Dryness, Vaginal Odor, Vaginal Pruritis, Other - Menstruation Menstruation: absent: As Per HPI, Amenorrhea, Amenorrhea/ Control, Currentl y Menstual, Cycle <21 Days, Cycle >35 Days, Cycle Variable, Menses 1-7 Days, Menses >/= 8 Days, Menses Variable, Cycle > 4 Weeks Between, No Menses for 6 Months, Heavy Menses, Light Menses, Normal Menses, Spotting Between Cycles, S/P Hysterectomy, Menopausal, Post Menopausal, Premenarche, Abnormal Vaginal Bleeding, Dysmenorrhea, Other - Musculoskeletal Musculoskeletal: As Per HPI - Integumentary Integumentary: absent: As Per HPI, Acne, Alopecia, Bleeding Lesions, Change in Hair, Change in Nails, Change in Pigmentation, Changing Lesions, Dry Skin, Erythema, Furuncle, Hirsutism, Lesions, New Lesions, Non-Healing Lesions, Photosensitivity, Pruritus, Rash, Skin Pain, Skin Ulcer, Sores, Striae, Swelling, Unusual Bruising, Wounds, Jaundice, Other - Neurological Neurological: As Per HPI, Abnormal Gait - Psychiatric Psychiatric: absent: As Per HPI, Abnormal Sleep Pattern, Anhedonia, Anxiety, Auditory Hallucinations, Behavioral Changes, Change in Appetite, Change in Libido, Confusion, Depression, Difficulty Concentrating, Hallucinations, Homicidal Ideation, Hopelessness, Irritability, Memory Loss, Mood Swings, Panic Attacks, Paranoia, Suicidal Ideation, Visual Hallucinations, Tactile Hallucinations, Other - Endocrine Endocrine: absent: As Per HPI, Change in Body Appearance, Change in Libido, Cold Intolorance, Deepening of Voice, Excessive Sweating, Fatigue, Flushing, Heat Intolorance, Increase in Ring/Shoe/Hat Size, Palpitations, Polydipsia, Polyphagia, Polyuria, Other - Hematologic/Lymphatic Hematologic: absent: As Per HPI, Easy Bleeding, Easy Bruising, Lymphadenopathy, Other Past Patient History - Infectious Disease Hx of Infectious Diseases: None - Past Medical History & Family History Past Medical History?: Yes - Past Social History Smoking Status: Never Smoked - CARDIAC Hx Cardiac Disorders: Yes Hx Cardia Arrhythmia: Yes Hx Congestive Heart Failure: Yes Hx Hypercholesterolemia: Yes Hx Hypertension: Yes - PULMONARY Hx Respiratory Disorders: Yes Hx Asthma: Yes Hx Chronic Obstructive Pulmonary Disease (COPD): Yes Hx Pulmonary Embolism: Yes (on Coumadin W/ IVC filter) - NEUROLOGICAL Hx Neurological Disorder: Yes HX Cerebrovascular Accident: Yes - HEENT Hx HEENT Problems: No - RENAL Hx Chronic Kidney Disease: No - ENDOCRINE/METABOLIC Hx Endocrine Disorders: Yes Hx Hypothyroidism: Yes - HEMATOLOGICAL/ONCOLOGICAL Hx Blood Disorders: Yes Hx Anemia: Yes - INTEGUMENTARY Hx Dermatological Problems: No - MUSCULOSKELETAL/RHEUMATOLOGICAL Hx Musculoskeletal Disorders: Yes Hx Arthritis: Yes (R THR /ORIF) Hx Falls: Yes Hx Fractures: Yes (R HIP) Hx Rheumatoid Arthritis: Yes - GASTROINTESTINAL Hx Gastrointestinal Disorders: Yes Hx Gall Bladder Disease: Yes - GENITOURINARY/GYNECOLOGICAL Hx Genitourinary Disorders: Yes Hx Urinary Tract Infection: Yes - PSYCHIATRIC Hx Psychophysiologic Disorder: Yes Hx Anxiety: Yes Hx Depression: Yes Hx Substance Use: No - SURGICAL HISTORY Hx Surgeries: Yes Hx Appendectomy: No Hx Cholecystectomy: Yes - ANESTHESIA Hx Anesthesia: Yes Hx Anesthesia Reactions: Yes (DIFFICULTY BREATHING) Meds Allergies/Adverse Reactions: Allergies Allergy/AdvReac Type Severity Reaction Status Date / Time No Known Allergies Allergy Verified 09/01/18 17:29 - Medications Medications: Current Medications Albuterol/Ipratropium (Duoneb 3 Mg/0.5 Mg (3 Ml) Ud) 3 ml IH RQ4 PRN PRN Reason: Shortness of Breath Bupropion HCl (Wellbutrin) 75 mg PO DAILY [facility] Last Admin: 09/04/18 10:48 Dose: 75 mg Colchicine (Colocrys) 0.6 mg PO BID [facility] Last Admin: 09/04/18 10:40 Dose: 0.6 mg Cyclobenzaprine HCl (Flexeril) 5 mg PO TID [facility] Last Admin: 09/04/18 14:14 Dose: Not Given Diazepam (Valium) 5 mg PO BID [facility] Last Admin: 09/04/18 12:44 Dose: 5 mg Dicyclomine HCl (Bentyl) 20 mg PO TID [facility] Last Admin: 09/04/18 14:14 Dose: Not Given Diltiazem HCl (Cardizem Cd) 120 mg PO DAILY [facility] Last Admin: 09/04/18 10:39 Dose: 120 mg Ergocalciferol (Drisdol 50,000 Intl Units Cap) 1 cap PO Q7D [facility] Last Admin: 09/03/18 11:35 Dose: 1 cap Fluticasone/Vilanterol (Breo Ellipta 100-25 Mcg Inh) 1 puff INH RQ24 [facility] Furosemide (Lasix) 20 mg PO DAILY [facility] Last Admin: 09/02/18 09:52 Dose: 20 mg Gabapentin (Neurontin) 300 mg PO HS [facility] Last Admin: 09/03/18 21:58 Dose: 300 mg Glipizide (Glucotrol) 10 mg PO BID [facility] Last Admin: 09/04/18 10:40 Dose: 10 mg Hydrocortisone (Cortef) 20 mg PO TID [facility] Last Admin: 09/04/18 14:14 Dose: Not Given Metronidazole (Flagyl) 500 mg in 100 mls @ 100 mls/hr IVPB Q8H [facility]; Protocol Last Admin: 09/04/18 12:43 Dose: 100 mls/hr Ceftriaxone Sodium 2 gm/ (Sodium Chloride) 100 mls @ 100 mls/hr IVPB Q24H [facility]; Protocol Last Admin: 09/03/18 21:57 Dose: 100 mls/hr Azithromycin 500 mg/ Sodium (Chloride) 250 mls @ 167 mls/hr IVPB Q24H [facility]; Protocol Last Admin: 09/04/18 01:00 Dose: 167 mls/hr Vancomycin HCl 1 gm/ Sodium (Chloride) 250 mls @ 166.7 mls/hr IVPB Q12 [facility]; Protocol Last Admin: 09/04/18 10:31 Dose: 166.7 mls/hr Sodium Chloride (Sodium Chloride 0.9%) 1,000 mls @ 50 mls/hr IV .Q20H [facility] Stop: 09/05/18 09:26 Last Admin: 09/04/18 09:36 Dose: 50 mls/hr Insulin Aspart (Novolog) 0 unit SC ACHS [facility]; Protocol Last Admin: 09/04/18 12:44 Dose: 1 unit Insulin Aspart (Novolog) 30 unit SC DAILY [facility] Last Admin: 09/04/18 10:41 Dose: Not Given Insulin Aspart (Novolog) [address] [facility] Last Admin: 09/03/18 21:59 Dose: 20 unit Levothyroxine Sodium (Synthroid) 100 mcg PO 0630 [facility] Last Admin: 09/04/18 05:43 Dose: 100 mcg Magnesium Oxide (Mag-Ox) 400 mg PO BID [facility] Last Admin: 09/04/18 10:38 Dose: 400 mg Ondansetron HCl (Zofran Inj) 4 mg IVP Q8 PRN PRN Reason: Nausea/Vomiting Pantoprazole Sodium (Protonix Ec Tab) 40 mg PO DAILY [facility] Last Admin: 09/04/18 10:38 Dose: 40 mg Potassium Chloride (K-Dur 20 Meq Er Tab) 20 meq PO DAILY [facility] Stop: 09/05/18 10:01 Last Admin: 09/04/18 10:40 Dose: 20 meq Rivaroxaban (Xarelto) 20 mg PO DAILY [facility] Last Admin: 09/04/18 10:48 Dose: 20 mg Rosuvastatin Calcium (Crestor) [address] [facility] Last Admin: 09/03/18 21:58 Dose: 10 mg Saccharomyces Boulardii (Florastor) 250 mg PO Q12 [facility] Last Admin: 09/04/18 10:40 Dose: 250 mg Sitagliptin Phosphate (Januvia) 100 mg PO DAILY [facility] Last Admin: 09/04/18 10:38 Dose: 100 mg Physical Exam - Constitutional Appears: Non-toxic, Chronically Ill - Head Exam Head Exam: ATRAUMATIC, NORMOCEPHALIC - Eye Exam Eye Exam: PERRL. absent: Scleral icterus - ENT Exam ENT Exam: Mucous Membranes Dry, Normal External Ear Exam, Normal Oropharynx - Neck Exam Neck exam: Negative for: Lymphadenopathy - Respiratory Exam Respiratory Exam: Decreased Breath Sounds, Rhonchi. absent: Prolonged Exp iratory Phase - Cardiovascular Exam Cardiovascular Exam: Tachycardia, REGULAR RHYTHM, +S1, +S2 - GI/Abdominal Exam GI & Abdominal Exam: Normal Bowel Sounds, Soft. absent: Rebound - Rectal Exam Rectal Exam: Deferred - Exam Exam: NORMAL INSPECTION - Extremities Exam Extremities exam: Positive for: pedal edema, pedal pulses present. Negative for: calf tenderness - Back Exam Back exam: absent: CVA tenderness (L), CVA tenderness (R), paraspinal tenderness, rash noted - Neurological Exam Neurological exam: Alert, CN II-XII Intact, Oriented x3, Reflexes Normal - Psychiatric Exam Psychiatric exam: Depressed - Skin Skin Exam: Dry, Intact Results - Vital Signs Recent Vital Signs: Last Vital Signs Temp 100.0 F H 09/04/18 14:53 Pulse 110 H 09/04/18 10:42 Resp 23 09/04/18 08:00 BP 149/87 09/04/18 10:42 Pulse Ox 96 09/04/18 10:42 - Labs Result Diagrams: 09/04/18 14:45 09/04/18 14:45 Labs: Laboratory Results - last 24 hr 09/02/18 09/03/18 09/03/18 21:42 07:12 16:21 WBC RBC Hgb Hct MCV MCH MCHC RDW Plt Count MPV Neut % (Auto) Lymph % (Auto) [place] % (Auto) Eos % (Auto) Baso % (Auto) Neut # (Auto) Lymph # (Auto) [place] # (Auto) Eos # (Auto) Baso # (Auto) Puncture Site pCO2 pO2 HCO3 ABG pH ABG Total CO2 ABG O2 Saturation ABG Base Excess Nicholas Test ABG Potassium Glucose Lactate Liter Flow Sodium Potassium Chloride Carbon Dioxide Anion Gap BUN Creatinine Est GFR ( Amer) Est GFR (Non-Af Amer) POC Glucose (mg/dL) 392 H Random Glucose Calcium Phosphorus Magnesium Total Bilirubin AST ALT Alkaline Phosphatase Total Protein Total Protein (PEP) 5.0 L Albumin Globulin Albumin/Globulin Ratio Arterial Blood Potassium Stool Leukocytes, Qual Negative 09/03/18 09/04/18 09/04/18 21:13 06:34 07:31 WBC 7.8 RBC 3.88 Hgb 8.8 L Hct 29.9 L MCV 77.0 L MCH 22.8 L MCHC 29.6 L RDW 19.3 H Plt Count 376 MPV 8.6 Neut % (Auto) 70.5 Lymph % (Auto) 16.6 L [place] % (Auto) 11.8 H Eos % (Auto) 0.1 Baso % (Auto) 1.0 Neut # (Auto) 5.5 Lymph # (Auto) 1.3 [place] # (Auto) 0.9 H Eos # (Auto) 0.0 Baso # (Auto) 0.1 Puncture Site pCO2 pO2 HCO3 ABG pH ABG Total CO2 ABG O2 Saturation ABG Base Excess Nicholas Test ABG Potassium Glucose Lactate Liter Flow Sodium Potassium Chloride Carbon Dioxide Anion Gap BUN Creatinine Est GFR ( Amer) Est GFR (Non-Af Amer) POC Glucose (mg/dL) 352 H 259 H Random Glucose Calcium Phosphorus Magnesium Total Bilirubin AST ALT Alkaline Phosphatase Total Protein Total Protein (PEP) Albumin Globulin Albumin/Globulin Ratio Arterial Blood Potassium Stool Leukocytes, Qual 09/04/18 09/04/18 09/04/18 07:31 07:31 11:30 WBC RBC Hgb Hct MCV MCH MCHC RDW Plt Count MPV Neut % (Auto) Lymph % (Auto) [place] % (Auto) Eos % (Auto) Baso % (Auto) Neut # (Auto) Lymph # (Auto) [place] # (Auto) Eos # (Auto) Baso # (Auto) Puncture Site pCO2 pO2 HCO3 ABG pH ABG Total CO2 ABG O2 Saturation ABG Base Excess Nicholas Test ABG Potassium Glucose Lactate Liter Flow Sodium 141 Potassium 3.7 Chloride 111 H Carbon Dioxide 24 Anion Gap 11 BUN 16 Creatinine 0.9 Est GFR ( Amer) > 60 Est GFR (Non-Af Amer) > 60 POC Glucose (mg/dL) 151 H Random Glucose 222 H D Calcium 8.4 L Phosphorus 2.3 L Magnesium 2.0 Total Bilirubin 0.3 AST 140 H D ALT 148 H D Alkaline Phosphatase 134 H Total Protein 5.4 L Total Protein (PEP) Albumin 2.9 L Globulin 2.5 Albumin/Globulin Ratio 1.2 Arterial Blood Potassium Stool Leukocytes, Qual 09/04/18 09/04/18 14:28 14:36 WBC RBC Hgb Hct MCV MCH MCHC RDW Plt Count MPV Neut % (Auto) Lymph % (Auto) [place] % (Auto) Eos % (Auto) Baso % (Auto) Neut # (Auto) Lymph # (Auto) [place] # (Auto) Eos # (Auto) Baso # (Auto) Puncture Site Radial left pCO2 34 L pO2 87 HCO3 22.1 ABG pH 7.39 ABG Total CO2 21.6 L ABG O2 Saturation 97.5 ABG Base Excess -3.6 L Nicholas Test Pos ABG Potassium 3.0 L Glucose 162 H Lactate 1.5 Liter Flow 3.0 Sodium 140.0 Potassium Chloride 117.0 H Carbon Dioxide Anion Gap BUN Creatinine Est GFR ( Amer) Est GFR (Non-Af Amer) POC Glucose (mg/dL) 185 H Random Glucose Calcium Phosphorus Magnesium Total Bilirubin AST ALT Alkaline Phosphatase Total Protein Total Protein (PEP) Albumin Globulin Albumin/Globulin Ratio Arterial Blood Potassium 3.0 L Stool Leukocytes, Qual Assessment & Plan (1) COPD (chronic obstructive pulmonary disease) Status: Acute (2) Closed fracture of right proximal tibia Status: Acute (3) Fever Status: Acute Priority: Medium (4) Hyperglycemia Status: Acute (5) CHF (congestive heart failure) Status: Chronic Priority: Medium (6) Diabetes mellitus Status: Chronic (7) HTN (hypertension) Status: Chronic Priority: Medium (8) History of DVT (deep vein thrombosis) Status: Chronic (9) History of pulmonary embolus (PE) Status: Chronic (10) Hypothyroid Status: Chronic (11) SVT (supraventricular tachycardia) Status: Chronic Priority: High (12) Sepsis Status: Suspected - Assessment and Plan (Free Text) Assessment: 63 year old female is referred to the ED from sub-acute rehab for evaluation of fever. Patient was recently admitted for a leg fracture, pneumonia, and COPD from August 01-August 16. septic work up reveals 1/2 sets coag neg staph This is liekly a contaminant ID consulted for this consider CT angio chest Has elevated LFT's - hx cholecystectomy' consider GI eval , US abdomen hold Vanco for Vanco level of 37 repeat level in am monitor cultures
--- NOTE | 2018-09-04 15:37 | RAD ---
Date of service: 09/04/2018 HISTORY: SOB COMPARISON: Comparison chest 09/01/2018 FINDINGS: LUNGS: Poor inspiration with low lung volumes crowded bronchovascular markings and bibasilar atelectasis. Persistent elevation right hemidiaphragm possibly due to eventration. PLEURA: No significant pleural effusion identified, no pneumothorax apparent. CARDIOVASCULAR: No aortic atherosclerotic calcification present. Heart size difficult to assess due to silhouetting the right cardiac border.. OSSEOUS STRUCTURES: No significant abnormalities. VISUALIZED UPPER ABDOMEN: Normal. OTHER FINDINGS: None. IMPRESSION: Poor inspiration with low lung volumes, crowded bronchovascular markings and bibasilar atelectasis. Persistent elevation right hemidiaphragm likely due to eventration.
[2018-09-04 16:46] LABS: ALB/GLOB RATIO 1.2 (1.0-2.1); ALT/SGPT 150 U/L (9-52); AST/SGOT 136 U/L (14-36); B-TYPE NATRIURETIC PEPTIDE 2490 pg/mL (0-900); BLOOD UREA NITROGEN 14 mg/dL (7-17); CALCIUM 8.2 mg/dl (8.6-10.4); GFR NON-AFRICAN AMERICAN > 60
[2018-09-04] MEDS: cefTRIAXone 2 GM in Sodium Chloride 0.9% 100 ML IVPB SCH (21:36)
--- NOTE | 2018-09-05 01:29 | CP.PCM.PN ---
Subjective - Date & Time of Evaluation Date of Evaluation: 09/05/18 Time of Evaluation: 01:18 - Subjective Subjective: Night float resident progress note Patient seen overnight, called by nurse for tachycardia. Patient was admitted originally with fevers. Today [employer] was called for shortness of breath, and CT angio ordered however patient refused the CTA. She is on Xarelto 20 mg PO daily as a home med for history DVT/PE. Patient is sinus tach on telemetry in 130s, not much increase from baseline during this hospital stay. Lung sounds are clear on exam. Discussed with overnight attending, Dr. Russo who agrees no further intervention at this time as patient is already anticoagulated and refusing CTA. Ino Leon, PGY-1 Objective - Vital Signs/Intake and Output Vital Signs (last 24 hours): Temp Pulse Resp BP Pulse Ox 98.3 F 132 H 20 124/84 98 09/04/18 23:25 09/05/18 00:30 09/04/18 23:25 09/04/18 23:25 09/04/18 23:25 Intake and Output: 09/04/18 09/05/18 18:59 06:59 Intake Total 325 350 Balance 325 350 - Medications Medications: Current Medications Albuterol/Ipratropium (Duoneb 3 Mg/0.5 Mg (3 Ml) Ud) 3 ml IH RQ4 PRN PRN Reason: Shortness of Breath Bupropion HCl (Wellbutrin) 75 mg PO DAILY [facility] Last Admin: 09/04/18 10:48 Dose: 75 mg Colchicine (Colocrys) 0.6 mg PO BID [facility] Last Admin: 09/04/18 18:24 Dose: 0.6 mg Cyclobenzaprine HCl (Flexeril) 5 mg PO TID [facility] Last Admin: 09/04/18 18:13 Dose: 5 mg Diazepam (Valium) 5 mg PO BID [facility] Last Admin: 09/04/18 12:44 Dose: 5 mg Dicyclomine HCl (Bentyl) 20 mg PO TID [facility] Last Admin: 09/04/18 18:24 Dose: 20 mg Diltiazem HCl (Cardizem Cd) 120 mg PO DAILY [facility] Last Admin: 09/04/18 10:39 Dose: 120 mg Ergocalciferol (Drisdol 50,000 Intl Units Cap) 1 cap PO Q7D [facility] Last Admin: 09/03/18 11:35 Dose: 1 cap Fluticasone/Vilanterol (Breo Ellipta 100-25 Mcg Inh) 1 puff INH RQ24 [facility] Furosemide (Lasix) 20 mg PO DAILY [facility] Last Admin: 09/02/18 09:52 Dose: 20 mg Gabapentin (Neurontin) 300 mg PO HS [facility] Last Admin: 09/03/18 21:58 Dose: 300 mg Glipizide (Glucotrol) 10 mg PO BID [facility] Last Admin: 09/04/18 18:13 Dose: 10 mg Hydrocortisone (Cortef) 20 mg PO TID [facility] Last Admin: 09/04/18 18:23 Dose: 20 mg Metronidazole (Flagyl) 500 mg in 100 mls @ 100 mls/hr IVPB Q8H [facility]; Protocol Last Admin: 09/04/18 18:13 Dose: 100 mls/hr Ceftriaxone Sodium 2 gm/ (Sodium Chloride) 100 mls @ 100 mls/hr IVPB Q24H [facility]; Protocol Last Admin: 09/04/18 21:36 Dose: 100 mls/hr Azithromycin 500 mg/ Sodium (Chloride) 250 mls @ 167 mls/hr IVPB Q24H [facility]; Protocol Last Admin: 09/04/18 01:00 Dose: 167 mls/hr Sodium Chloride (Sodium Chloride 0.9%) 1,000 mls @ 50 mls/hr IV .Q20H [facility] Stop: 09/05/18 09:26 Last Admin: 09/04/18 09:36 Dose: 50 mls/hr Insulin Aspart (Novolog) 0 unit SC ACHS [facility]; Protocol Last Admin: 09/04/18 21:45 Dose: Not Given Insulin Aspart (Novolog) 30 unit SC DAILY [facility] Last Admin: 09/04/18 10:41 Dose: Not Given Insulin Aspart (Novolog) 20 unit SC [facility] Last Admin: 09/04/18 21:46 Dose: 20 unit Levothyroxine Sodium (Synthroid) 100 mcg PO 0630 [facility] Last Admin: 09/04/18 05:43 Dose: 100 mcg Magnesium Oxide (Mag-Ox) 400 mg PO BID [facility] Last Admin: 09/04/18 18:25 Dose: 400 mg Ondansetron HCl (Zofran Inj) 4 mg IVP Q8 PRN PRN Reason: Nausea/Vomiting Pantoprazole Sodium (Protonix Ec Tab) 40 mg PO DAILY [facility] Last Admin: 09/04/18 10:38 Dose: 40 mg Potassium Chloride (K-Dur 20 Meq Er Tab) 20 meq PO DAILY [facility] Stop: 09/05/18 10:01 Last Admin: 09/04/18 10:40 Dose: 20 meq Rivaroxaban (Xarelto) 20 mg PO DAILY [facility] Last Admin: 09/04/18 10:48 Dose: 20 mg Rosuvastatin Calcium (Crestor) 10 mg PO HS [facility] Last Admin: 09/04/18 21:40 Dose: 10 mg Saccharomyces Boulardii (Florastor) 250 mg PO Q12 [facility] Last Admin: 09/04/18 21:40 Dose: 250 mg Sitagliptin Phosphate (Januvia) 100 mg PO DAILY [facility] Last Admin: 09/04/18 10:38 Dose: 100 mg - Labs Labs: 09/04/18 14:45 09/04/18 14:45
[2018-09-05] MEDS: metroNIDAZOLE IV 500 mg/100 ml 500 MG/100 ML BAG IVPB SCH ×3 (02:07→19:05)
--- NOTE | 2018-09-05 03:28 | CP.PCM.PCO ---
Physician Communication Note - Physician Communication Note Physician Communication Note: Noncompliant with NPO diet. Had chips/soda overnight.
[2018-09-05] MEDS: Sodium Chloride 0.9% 1,000 ML IV SCH (05:30)
[2018-09-05] MEDS: Levothyroxine 100 MCG TAB PO SCH (06:44)
--- NOTE | 2018-09-05 07:09 | HP ---
HISTORY OF PRESENT ILLNESS: The patient is a 63-year-old female with history of fibromyalgia, obesity, COPD, spinal stenosis, paraparesis secondary to spinal stenosis, recurrent UTI, PE. She came to the hospital with chief complaint of weakness, fatigue, tiredness, nausea, vomiting, diarrhea, and today the patient became very weak, advised admission to the hospital. PHYSICAL EXAMINATION: GENERAL: The patient is awake, alert, and oriented. VITAL SIGNS: Temperature 98 and pulse 90. HEENT: Within normal limits. NECK: Supple. CHEST: Symmetrical. HEART: Regular. ABDOMEN: Soft. EXTREMITIES: No edema. IMPRESSION AND PLAN: The patient suffers from dehydration, sepsis, rule out colitis, rule out . At this point, the patient is placed on intravenous antibiotics, supportive care. Angel Gutierres MD
[2018-09-05 07:42] LABS: BASO % 0.5 % (0.0-2.0); EOS % 0.5 % (0.0-4.0); LYMPH # 1.3 K/uL (1.0-4.3); LYMPH % 17.4 % (20.0-40.0); MEAN CELL VOLUME 78.6 fL (81.0-99.0); MEAN CORPUSCULAR HEMOGLOBIN 22.3 pg (27.0-31.0); MEAN CORPUSCULAR HGB CONC 28.4 g/dL (33.0-37.0); MEAN PLATELET VOLUME 8.6 fL (7.2-11.7); MONO # 0.7 K/uL (0.0-0.8); MONO % 9.6 % (0.0-10.0); NEUT # 5.2 K/uL (1.8-7.0); NRBC % 0.3 % (0.0-2.0); RBC 4.01 Mil/uL (3.80-5.20); RED CELL DISTRIBUTION WIDTH 20.1 % (11.5-14.5); WHITE BLOOD COUNT 7.2 K/uL (4.8-10.8)
[2018-09-05 07:47] LABS: ALB/GLOB RATIO 1.2 (1.0-2.1); ALBUMIN 2.5 g/dL (3.5-5.0); ALT/SGPT 132 U/L (9-52); AST/SGOT 112 U/L (14-36); BLOOD UREA NITROGEN 15 mg/dL (7-17); GFR NON-AFRICAN AMERICAN > 60
[2018-09-05 08:36] LABS: HEPATITIS B SURFACE AG Negative (NEGATIVE)
[2018-09-05 08:41] LABS: HEPATITIS A IGM NEGATIVE (NEGATIVE); HEPATITIS B CORE AB NEGATIVE (NEGATIVE)
[2018-09-05 08:52] LABS: HEPATITIS C ANTIBODY NEGATIVE (NEGATIVE)
[2018-09-05] MEDS: (Novolog) Insulin Aspart, Recombinant 100 u/ml 10 ml vial SC SCH ×7 (09:07→21:53)
--- NOTE | 2018-09-05 09:30 | CP.PCM.PN ---
Subjective - Date & Time of Evaluation Date of Evaluation: 09/05/18 Time of Evaluation: 08:00 - Subjective Subjective: Medicine Progress Note for Dr. Gutierres: Patient was seen and examined at bedside. Patient was agitated and a bit confused as she was not oriented to time. Per nurse patient is currently refusing medications, blood work and imaging. She denies chest pain, palpitations, nausea, vomiting, headaches, abdominal pain, dysuria, leg pain and swelling. Objective - Vital Signs/Intake and Output Vital Signs (last 24 hours): Temp Pulse Resp BP Pulse Ox 97.9 F 116 H 20 144/82 96 09/05/18 08:00 09/05/18 08:00 09/05/18 08:00 09/05/18 08:00 09/05/18 08:00 Intake and Output: 09/05/18 09/05/18 06:59 18:59 Intake Total 350 500 Balance 350 500 - Medications Medications: Current Medications Albuterol/Ipratropium (Duoneb 3 Mg/0.5 Mg (3 Ml) Ud) 3 ml IH RQ4 PRN PRN Reason: Shortness of Breath Bupropion HCl (Wellbutrin) 75 mg PO DAILY [facility] Last Admin: 09/04/18 10:48 Dose: 75 mg Colchicine (Colocrys) 0.6 mg PO BID [facility] Last Admin: 09/04/18 18:24 Dose: 0.6 mg Cyclobenzaprine HCl (Flexeril) 5 mg PO TID [facility] Last Admin: 09/04/18 18:13 Dose: 5 mg Diazepam (Valium) 5 mg PO BID [facility] Last Admin: 09/04/18 12:44 Dose: 5 mg Dicyclomine HCl (Bentyl) 20 mg PO TID [facility] Last Admin: 09/04/18 18:24 Dose: 20 mg Diltiazem HCl (Cardizem Cd) 120 mg PO DAILY [facility] Last Admin: 09/04/18 10:39 Dose: 120 mg Ergocalciferol (Drisdol 50,000 Intl Units Cap) 1 cap PO Q7D [facility] Last Admin: 09/03/18 11:35 Dose: 1 cap Fluticasone/Vilanterol (Breo Ellipta 100-25 Mcg Inh) 1 puff INH RQ24 [facility] Furosemide (Lasix) 20 mg PO DAILY [facility] Last Admin: 09/02/18 09:52 Dose: 20 mg Gabapentin (Neurontin) 300 mg PO [facility] Last Admin: 09/03/18 21:58 Dose: 300 mg Glipizide (Glucotrol) 10 mg PO BID [facility] Last Admin: 09/04/18 18:13 Dose: 10 mg Hydrocortisone (Cortef) 20 mg PO TID [facility] Last Admin: 09/04/18 18:23 Dose: 20 mg Metronidazole (Flagyl) 500 mg in 100 mls @ 100 mls/hr IVPB Q8H [facility]; Protocol Last Admin: 09/05/18 02:07 Dose: 100 mls/hr Ceftriaxone Sodium 2 gm/ (Sodium Chloride) 100 mls @ 100 mls/hr IVPB Q24H [facility]; Protocol Last Admin: 09/04/18 21:36 Dose: 100 mls/hr Azithromycin 500 mg/ Sodium (Chloride) 250 mls @ 167 mls/hr IVPB Q24H [facility]; Protocol Last Admin: 09/04/18 01:00 Dose: 167 mls/hr Insulin Aspart (Novolog) 0 unit SC [facility]; Protocol Last Admin: 09/05/18 09:07 Dose: 4 unit Insulin Aspart (Novolog) 30 unit SC DAILY [facility] Last Admin: 09/04/18 10:41 Dose: Not Given Insulin Aspart (Novolog) 20 unit SC [facility] Last Admin: 09/04/18 21:46 Dose: 20 unit Ketorolac Tromethamine (Toradol) 30 mg IVP Q8 PRN PRN Reason: Pain, severe (8-10) Last Admin: 09/05/18 09:04 Dose: 30 mg Levothyroxine Sodium (Synthroid) 100 mcg PO 0630 [facility] Last Admin: 09/05/18 06:44 Dose: 100 mcg Magnesium Oxide (Mag-Ox) 400 mg PO BID [facility] Last Admin: 09/04/18 18:25 Dose: 400 mg Ondansetron HCl (Zofran Inj) 4 mg IVP Q8 PRN PRN Reason: Nausea/Vomiting Pantoprazole Sodium (Protonix Ec Tab) 40 mg PO DAILY [facility] Last Admin: 09/04/18 10:38 Dose: 40 mg Potassium Chloride (K-Dur 20 Meq Er Tab) 20 meq PO DAILY [facility] Stop: 09/05/18 10:01 Last Admin: 09/04/18 10:40 Dose: 20 meq Rivaroxaban (Xarelto) 20 mg PO DAILY [facility] Last Admin: 09/04/18 10:48 Dose: 20 mg Rosuvastatin Calcium (Crestor) 10 mg PO HS [facility] Last Admin: 09/04/18 21:40 Dose: 10 mg Saccharomyces Boulardii (Florastor) 250 mg PO Q12 [facility] Last Admin: 09/04/18 21:40 Dose: 250 mg Sitagliptin Phosphate (Januvia) 100 mg PO DAILY [facility] Last Admin: 09/04/18 10:38 Dose: 100 mg - Labs Labs: 09/05/18 07:14 09/05/18 07:14 - Constitutional Appears: No Acute Distress, Agitated, Confused, Chronically Ill - Head Exam Head Exam: ATRAUMATIC, NORMAL INSPECTION - Eye Exam Eye Exam: EOMI, Normal appearance - ENT Exam ENT Exam: Mucous Membranes Moist - Respiratory Exam Respiratory Exam: NORMAL BREATHING PATTERN - Cardiovascular Exam Cardiovascular Exam: REGULAR RHYTHM, +S1, +S2 - GI/Abdominal Exam GI & Abdominal Exam: Soft, Normal Bowel Sounds. absent: Tenderness - Neurological Exam Neurological Exam: Alert, Awake, Oriented x3 - Psychiatric Exam Psychiatric exam: Normal Affect - Skin Skin Exam: Normal Color Assessment and Plan - Assessment and Plan (Free Text) Assessment: Fever, SIRS - unknown source at this time, possibly due to c.fiff, colitis - Febrile at admission, 101.8F. Leukocytosis 12.4, improved to 8.5. No bandemia. - Lactate at admission 1.6; repeat 0.9 on 09/02/18 ID Consult: Dr. Little --> help appreciated GI Consult: Dr. Laurent --> help appreciated - CXR: negative for acute pathology - f/u abdominal US - patient currently refusing - Blood cx: coagulase neg staph - probably contaminated - Urinalysis: negative for infection - Urine cx: negative - C.Diff: f/u - Ova/parasites: f/u - Stool Culture: negative - Stool leukocytes: negative; stool occult negative - Medications: * Azithromycin 500mg IV Q24 (active since 09/02/18) * Rocephin 2gm IV Q24h (active since 09/02/18) * Flagyl 500mg IV 18h (active since 09/02/18) * Florastor 250mg PO BID [facility]AR[facility] - At admission, BUN 44, Cr 3.2 - Improved on 09/02/18, BUN 35, Cr 1.9 - Nephrology consulted, Dr. Menendez; help appreciated - Avoid nephrotoxic agents - IV fluids, NS@100 - Possibly due to hypotension, sepsis, or renal hypoperfusion - Renal US: Echogenic renal parenchyma the right kidney. Bilateral cortical thinning. Correlate clinically for medical renal disease. Chronic Diastolic Congestive Heart Failure - Stable - Last echo 2016 showed Grade III reversible restrictive diastolic dysfunction, EF 55% - (HELD due to KARMA) Lasix 20mg PO daily Hypertension - Continue to monitor - Home medications: * Lisinopril 10mg PO daily (HELD due to KARMA) * Lopressor 50mg PO BID (HELD due to hypotension) * Cardizem 120mg PO daily (HOLD if SBP<100, DBP<60, HR<60) Diabetes Mellitus - Accuchecks - Hypoglycemia protocol - HgA1c 9.3 (01/2018) - Insulin sliding scale - Januvia 25mg PO daily (decreased due to KARMA) - Glipizide 10mg PO BID - Gabapentin 300mg PO TID - Novolin 15units with meals - Lantus 25units HS Fibromyalgia - Home medication: Diazepam 5mg PO PRN (HELD due to hypotension) - Flexeril 5mg PO TID (Holding parameters- hold if sleeping/sedated, hypotension) - Percocet 5/325mg 1 tab Q6H (HELD due to hypotension) Adrenal Insufficiency - Hydrocortisone 20mg PO TID Hypothyroidism - Continue Synthroid 100mcg PO daily History of DVT/PE - Continue Xarelto 20mg PO daily Gout - Continue Colchicine Depression - Wellbutrin 75mg COPD - Continue home medication: Breo - Duonebs Q4h prn Prophylactic Measures - Protonix 40mg PO daily, Probiotics - Xarelto 20mg PO daily - PT/OT - Case management consult Case discussed and patient seen with Dr. Nenita Martinez PGY-2
[2018-09-05] MEDS ORDERED: (Novolog) Insulin Aspart, Recombinant 100 u/ml 10 ml vial SC SCH ×2 (09:57→11:30)
[2018-09-05] MEDS: Magnesium Oxide 400 mg Tab UD PO SCH ×2 (10:16→18:14)
[2018-09-05] MEDS: Potassium Chloride 20 mEq ER Tab PO SCH (10:16)
[2018-09-05] MEDS: Pantoprazole 40 mg EC Tab PO SCH (10:16)
[2018-09-05] MEDS: Saccharomyces Boulardi 250 mg Cap PO SCH ×2 (10:16→21:52)
[2018-09-05] MEDS: diltiaZEM 120 mg/24 Hours CD Cap PO SCH ×2 (10:17→13:15)
--- NOTE | 2018-09-05 12:59 | CARD ---
APPROVED REPORT Date of service: 09/02/2018 EKG Measurement Heart [id number] <Conclusion> Sinus tachycardia Low voltage QRS Borderline ECG
[2018-09-05] MEDS: Albuterol-Ipratrop 3 mg / 0.5 (3 ml) UD IH PRN (14:00)
[2018-09-05] MEDS: Fluticasone-Vilanterol 100/25mcg Diskus INH SCH (14:00)
--- NOTE | 2018-09-05 16:14 | CP.PCM.CON ---
History of Present Illness - History of Present Illness History of Present Illness: Patient seen 1614 09/05/18 I was asked to see patient by Dr Nenita matoscorinne is a 63 year old female with HTN hyperhcolesterolemia previous DVT/ IVC filter who presents with fever. She had a recent ortho procedure, Previous stress test normal , and normal LV function. Patient was found to have sinus tachycardia. She denies chest pain. Review of Systems - Constitutional Constitutional: Chills, Fever - EENT Eyes: absent: As Per HPI, Blind Spots, Blurred Vision, Change in Vision, Decreased Night Vision, Diplopia, Discharge, Dry Eye, Exophthalmos, Floaters, Irritation, Itchy Eyes, Loss of Peripheral Vision, Pain, Photophobia, Requires Corrective Lenses, Sees Flashes, Spots in Vision, Tunnel Vision, Other Visual Disturbances, Loss of Vision, Other Ears: absent: As Per HPI, Decreased Hearing, Ear Discharge, Ear Pain, Tinnitus, Abnormal Hearing, Disequilibrium, Dizziness, Other Nose/Mouth/Throat: absent: As Per HPI, Epistaxis, Nasal Congestion, Nasal Discharge, Nasal Obstruction, Nasal Trauma, Nose Pain, Post Nasal Drip, Sinus Pain, Sinus Pressure, Bleeding Gums, Change in Voice, Dental Pain, Dry Mouth, Dysphagia, Halitosis, Hoarsness, Lip Swelling, Mouth Lesions, Mouth Pain, Odynophagia, Sore Throat, Throat Swelling, Tongue Swelling, Facial Pain, Neck Pain, Neck Mass, Other - Cardiovascular Cardiovascular: Dyspnea, Rapid Heart Rate - Respiratory Respiratory: Dyspnea - Gastrointestinal Gastrointestinal: absent: As Per HPI, Abdominal Pain, Belching, Bloating, Change in Bowel Habits, Change in Stool Character, Coffee Ground Emesis, Constipation, Cramping, Diarrhea, Dyspepsia, Dysphagia, Early Satiety, Excessive Flatus, Fecal Incontinence, Heartburn, Hematemesis, Hematochezia, Loose Stools, Melena, Nausea, Odynophagia, Temesmus, Vomiting, Other - Genitourinary Genitourinary: absent: As Per HPI, Change in Urinary Stream, Difficulty Urinating, Dysuria, Flank Pain, Hematuria, Pyuria, Nocturia, Urinary Incontinence, Urinary Frequency, Urinary Hesitance, Urinary Urgency, Voiding Freq/Small Amts, Freq UTI, Hx Renal/Bladder Calculi, Hx /Renal Surgery, Bladder Distension, Other - Musculoskeletal Musculoskeletal: absent: As Per HPI, Abnormal Gait, Arthralgias, Atrophy, Back Pain, Deformity, Joint Swelling, Limited Range of Motion, Loss of Height, Muscle Cramps, Muscle Weakness, Myalgias, Neck Pain, Numbness, Radiating Pain into Limb, Stiffness, Tingling, Other - Integumentary Integumentary: absent: As Per HPI, Acne, Alopecia, Bleeding Lesions, Change in Hair, Change in Nails, Change in Pigmentation, Changing Lesions, Dry Skin, Erythema, Furuncle, Hirsutism, Lesions, New Lesions, Non-Healing Lesions, Photosensitivity, Pruritus, Rash, Skin Pain, Skin Ulcer, Sores, Striae, Swelling, Unusual Bruising, Wounds, Jaundice, Other - Neurological Neurological: absent: As Per HPI, Abnormal Gait, Abnormal Hearing, Abnormal Movements, Abnormal Speech, Behavioral Changes, Burning Sensations, Confusion, Convulsions, Disequilibrium, Dizziness, Numbness, Focal Weakness, Frequent Falls, Headaches, Lack of Coordination, Loss of Vision, Memory Loss, Paresthesias, Radicular Pain, Restless Legs, Sensory Deficit, Syncope, Tingling, Tremor, Vertigo, Weakness, Other Visual Disturbances, Other - Psychiatric Psychiatric: absent: As Per HPI, Abnormal Sleep Pattern, Anhedonia, Anxiety, Auditory Hallucinations, Behavioral Changes, Change in Appetite, Change in Libido, Confusion, Depression, Difficulty Concentrating, Hallucinations, Homicidal Ideation, Hopelessness, Irritability, Memory Loss, Mood Swings, Panic Attacks, Paranoia, Suicidal Ideation, Visual Hallucinations, Tactile Hallucinations, Other - Endocrine Endocrine: absent: As Per HPI, Change in Body Appearance, Change in Libido, Cold Intolorance, Deepening of Voice, Excessive Sweating, Fatigue, Flushing, Heat Intolorance, Increase in Ring/Shoe/Hat Size, Palpitations, Polydipsia, Polyphagia, Polyuria, Other - Hematologic/Lymphatic Hematologic: absent: As Per HPI, Easy Bleeding, Easy Bruising, Lymphadenopathy, Other Past Patient History - Infectious Disease Hx of Infectious Diseases: None - Past Medical History & Family History Past Medical History?: Yes - Past Social History Smoking Status: Never Smoked - CARDIAC Hx Congestive Heart Failure: Yes Hx Hypercholesterolemia: Yes Hx Hypertension: Yes - PULMONARY Hx Chronic Obstructive Pulmonary Disease (COPD): Yes - NEUROLOGICAL Hx Neurological Disorder: Yes HX Cerebrovascular Accident: Yes - HEENT Hx HEENT Problems: No - RENAL Hx Chronic Kidney Disease: No - ENDOCRINE/METABOLIC Hx Endocrine Disorders: Yes Hx Hypothyroidism: Yes - HEMATOLOGICAL/ONCOLOGICAL Hx Blood Disorders: Yes Hx Anemia: Yes - INTEGUMENTARY Hx Dermatological Problems: No - MUSCULOSKELETAL/RHEUMATOLOGICAL Hx Rheumatoid Arthritis: Yes - GASTROINTESTINAL Hx Gastrointestinal Disorders: Yes Hx Gall Bladder Disease: Yes - GENITOURINARY/GYNECOLOGICAL Hx Genitourinary Disorders: Yes Hx Urinary Tract Infection: Yes - PSYCHIATRIC Hx Psychophysiologic Disorder: Yes Hx Anxiety: Yes Hx Depression: Yes Hx Substance Use: No - SURGICAL HISTORY Hx Surgeries: Yes Hx Appendectomy: No Hx Cholecystectomy: Yes - ANESTHESIA Hx Anesthesia: Yes Hx Anesthesia Reactions: Yes (DIFFICULTY BREATHING) Meds Allergies/Adverse Reactions: Allergies Allergy/AdvReac Type Severity Reaction Status Date / Time No Known Allergies Allergy Verified 09/01/18 17:29 - Medications Medications: Current Medications Albuterol/Ipratropium (Duoneb 3 Mg/0.5 Mg (3 Ml) Ud) 3 ml IH RQ4 PRN PRN Reason: Shortness of Breath Last Admin: 09/05/18 14:00 Dose: 3 ml Bupropion HCl (Wellbutrin) 75 mg PO DAILY [facility] Last Admin: 09/05/18 10:16 Dose: Not Given Colchicine (Colocrys) 0.6 mg PO BID [facility] Last Admin: 09/05/18 10:16 Dose: Not Given Cyclobenzaprine HCl (Flexeril) 5 mg PO TID [facility] Last Admin: 09/05/18 13:14 Dose: 5 mg Diazepam (Valium) 5 mg PO BID [facility] Last Admin: 09/05/18 14:44 Dose: 5 mg Dicyclomine HCl (Bentyl) 20 mg PO TID [facility] Last Admin: 09/05/18 13:17 Dose: Not Given Diltiazem HCl (Cardizem Cd) 180 mg PO DAILY [facility] Ergocalciferol (Drisdol 50,000 Intl Units Cap) 1 cap PO Q7D [facility] Last Admin: 09/03/18 11:35 Dose: 1 cap Fluticasone/Vilanterol (Breo Ellipta 100-25 Mcg Inh) 1 puff INH RQ24 [facility] Last Admin: 09/05/18 14:00 Dose: 1 puff Furosemide (Lasix) 20 mg PO DAILY [facility] Last Admin: 09/02/18 09:52 Dose: 20 mg Gabapentin (Neurontin) 300 mg PO [facility] Last Admin: 09/03/18 21:58 Dose: 300 mg Glipizide (Glucotrol) 10 mg PO BID [facility] Last Admin: 09/05/18 10:16 Dose: Not Given Hydrocortisone (Cortef) 20 mg PO TID [facility] Last Admin: 09/05/18 13:14 Dose: 20 mg Metronidazole (Flagyl) 500 mg in 100 mls @ 100 mls/hr IVPB Q8H [facility]; Protocol Last Admin: 09/05/18 10:45 Dose: 100 mls/hr Ceftriaxone Sodium 2 gm/ (Sodium Chloride) 100 mls @ 100 mls/hr IVPB Q24H [facility]; Protocol Last Admin: 09/04/18 21:36 Dose: 100 mls/hr Azithromycin 500 mg/ Sodium (Chloride) 250 mls @ 167 mls/hr IVPB Q24H [facility]; Protocol Last Admin: 09/04/18 01:00 Dose: 167 mls/hr Insulin Aspart (Novolog) 0 unit SC [facility]; Protocol Last Admin: 09/05/18 13:18 Dose: 2 unit Insulin Aspart (Novolog) 25 unit SC [facility] Insulin Aspart (Novolog) 15 unit SC [facility] Last Admin: 09/05/18 13:18 Dose: 15 units Ketorolac Tromethamine (Toradol) 30 mg IVP Q8 PRN PRN Reason: Pain, severe (8-10) Last Admin: 09/05/18 09:04 Dose: 30 mg Levothyroxine Sodium (Synthroid) 100 mcg PO 0630 [facility] Last Admin: 09/05/18 06:44 Dose: 100 mcg Magnesium Oxide (Mag-Ox) 400 mg PO BID [facility] Last Admin: 09/05/18 10:16 Dose: Not Given Ondansetron HCl (Zofran Inj) 4 mg IVP Q8 PRN PRN Reason: Nausea/Vomiting Pantoprazole Sodium (Protonix Ec Tab) 40 mg PO DAILY [facility] Last Admin: 09/05/18 10:16 Dose: Not Given Rivaroxaban (Xarelto) 20 mg PO DAILY [facility] Last Admin: 09/05/18 13:24 Dose: 20 mg Rosuvastatin Calcium (Crestor) 10 mg PO [facility] Last Admin: 09/04/18 21:40 Dose: 10 mg Saccharomyces Boulardii (Florastor) 250 mg PO Q12 [facility] Last Admin: 09/05/18 10:16 Dose: Not Given Sitagliptin Phosphate (Januvia) 100 mg PO DAILY [facility] Last Admin: 09/05/18 10:16 Dose: Not Given Sucralfate (Carafate Oral Susp) 1 gm PO [facility] Physical Exam - Constitutional Appears: Non-toxic - Head Exam Head Exam: NORMAL INSPECTION - Eye Exam Eye Exam: Normal appearance - ENT Exam ENT Exam: Mucous Membranes Moist - Neck Exam Neck exam: Positive for: Full Rom - Respiratory Exam Respiratory Exam: Prolonged Expiratory Phase - Cardiovascular Exam Cardiovascular Exam: Tachycardia, REGULAR RHYTHM - GI/Abdominal Exam GI & Abdominal Exam: Normal Bowel Sounds - Rectal Exam Rectal Exam: Deferred - Extremities Exam Extremities exam: Negative for: pedal edema - Back Exam Back exam: NORMAL INSPECTION - Neurological Exam Neurological exam: Alert, Oriented x3 - Psychiatric Exam Psychiatric exam: Normal Affect - Skin Skin Exam: Normal Color Results - Vital Signs Recent Vital Signs: Last Vital Signs Temp 97.9 F 09/05/18 15:00 Pulse 120 H 09/05/18 15:56 Resp 22 09/05/18 15:00 BP 152/88 H 09/05/18 15:00 Pulse Ox 96 09/05/18 15:00 - Labs Result Diagrams: 09/10/18 07:24 09/10/18 07:24 Labs: Laboratory Results - last 24 hr 09/04/18 09/04/18 09/04/18 07:31 14:45 16:50 WBC RBC Hgb Hct MCV MCH MCHC RDW Plt Count MPV Neut % (Auto) Lymph % (Auto) Tama % (Auto) Eos % (Auto) Baso % (Auto) Neut # (Auto) Lymph # (Auto) T[place] # (Auto) Eos # (Auto) Baso # (Auto) Sodium 141 Potassium 3.2 L Chloride 110 H Carbon Dioxide 22 Anion Gap 12 BUN 14 Creatinine 0.8 Est GFR ( Amer) > 60 Est GFR (Non-Af Amer) > 60 POC Glucose (mg/dL) 274 H Random Glucose 159 H D Calcium 8.2 L Phosphorus 1.7 L Magnesium 1.7 Total Bilirubin 0.3 AST 136 H ALT 150 H Alkaline Phosphatase 127 H NT-Pro-B Natriuret Pep 2490 H Total Protein 5.4 L Albumin 3.0 L Globulin 2.4 Albumin/Globulin Ratio 1.2 Procalcitonin Vancomycin Trough Random Vancomycin Hepatitis A IgM Ab Negative Hep Bs Antigen Negative Hep B Core IgM Ab Negative Hepatitis C Antibody Negative HIV 1&2 Antibody Screen Influenza Typ A,B (EIA) 09/04/18 09/04/18 09/04/18 17:20 17:20 17:20 WBC RBC Hgb Hct MCV MCH MCHC RDW Plt Count MPV Neut % (Auto) Lymph % (Auto) Tama % (Auto) Eos % (Auto) Baso % (Auto) Neut # (Auto) Lymph # (Auto) Tama # (Auto) Eos # (Auto) Baso # (Auto) Sodium Potassium Chloride Carbon Dioxide Anion Gap BUN Creatinine Est GFR ( Amer) Est GFR (Non-Af Amer) POC Glucose (mg/dL) Random Glucose Calcium Phosphorus Magnesium Total Bilirubin AST ALT Alkaline Phosphatase NT-Pro-B Natriuret Pep Total Protein Albumin Globulin Albumin/Globulin Ratio Procalcitonin 0.52 H Vancomycin Trough 31.5 H Random Vancomycin Hepatitis A IgM Ab Hep Bs Antigen Hep B Core IgM Ab Hepatitis C Antibody HIV 1&2 Antibody Screen Negative Influenza Typ A,B (EIA) 09/04/18 09/05/18 09/05/18 21:16 03:15 06:34 WBC RBC Hgb Hct MCV MCH MCHC RDW Plt Count MPV Neut % (Auto) Lymph % (Auto) Tama % (Auto) Eos % (Auto) Baso % (Auto) Neut # (Auto) Lymph # (Auto) Tama # (Auto) Eos # (Auto) Baso # (Auto) Sodium Potassium Chloride Carbon Dioxide Anion Gap BUN Creatinine Est GFR ( Amer) Est GFR (Non-Af Amer) POC Glucose (mg/dL) 338 H 344 H 304 H Random Glucose Calcium Phosphorus Magnesium Total Bilirubin AST ALT Alkaline Phosphatase NT-Pro-B Natriuret Pep Total Protein Albumin Globulin Albumin/Globulin Ratio Procalcitonin Vancomycin Trough Random Vancomycin Hepatitis A IgM Ab Hep Bs Antigen Hep B Core IgM Ab Hepatitis C Antibody HIV 1&2 Antibody Screen Influenza Typ A,B (EIA) 09/05/18 09/05/18 09/05/18 07:14 07:14 07:14 WBC 7.2 RBC 4.01 Hgb 9.0 L Hct 31.5 L MCV 78.6 L MCH 22.3 L MCHC 28.4 L RDW 20.1 H Plt Count 405 H MPV 8.6 Neut % (Auto) 72.0 Lymph % (Auto) 17.4 L Tama % (Auto) 9.6 Eos % (Auto) 0.5 Baso % (Auto) 0.5 Neut # (Auto) 5.2 Lymph # (Auto) 1.3 Tama # (Auto) 0.7 Eos # (Auto) 0.0 Baso # (Auto) 0.0 Sodium 136 Potassium 3.7 Chloride 112 H Carbon Dioxide 20 L Anion Gap 8 L BUN 15 Creatinine 0.9 Est GFR ( Amer) > 60 Est GFR (Non-Af Amer) > 60 POC Glucose (mg/dL) Random Glucose 286 H D Calcium 8.0 L Phosphorus Magnesium Total Bilirubin 0.2 AST 112 H ALT 132 H Alkaline Phosphatase 113 NT-Pro-B Natriuret Pep Total Protein 4.6 L Albumin 2.5 L Globulin 2.1 L Albumin/Globulin Ratio 1.2 Procalcitonin Vancomycin Trough Random Vancomycin 22.3 Hepatitis A IgM Ab Hep Bs Antigen Hep B Core IgM Ab Hepatitis C Antibody HIV 1&2 Antibody Screen Influenza Typ A,B (EIA) 09/05/18 09/05/18 09/05/18 11:15 11:36 16:01 WBC RBC Hgb Hct MCV MCH MCHC RDW Plt Count MPV Neut % (Auto) Lymph % (Auto) Tama % (Auto) Eos % (Auto) Baso % (Auto) Neut # (Auto) Lymph # (Auto) [place] # (Auto) Eos # (Auto) Baso # (Auto) Sodium Potassium Chloride Carbon Dioxide Anion Gap BUN Creatinine Est GFR ( Amer) Est GFR (Non-Af Amer) POC Glucose (mg/dL) 223 H 244 H Random Glucose Calcium Phosphorus Magnesium Total Bilirubin AST ALT Alkaline Phosphatase NT-Pro-B Natriuret Pep Total Protein Albumin Globulin Albumin/Globulin Ratio Procalcitonin Vancomycin Trough Random Vancomycin Hepatitis A IgM Ab Hep Bs Antigen Hep B Core IgM Ab Hepatitis C Antibody HIV 1&2 Antibody Screen Influenza Typ A,B (EIA) Negative for flu a/b - EKG Data EKG Interpreted by: Myself EKG shows normal: Sinus rhythm Rate: Tachycardia Assessment & Plan (1) Tachycardia Assessment and Plan: multifactorial but likely due to fever. conitnue antibiotics will add cardizem Status: Acute (2) Diabetes mellitus Status: Chronic (3) HTN (hypertension) Status: Chronic Priority: Medium
[2018-09-05 17:06] LABS: INR 1.9
[2018-09-05 17:38] LABS: HEPATITIS B SURFACE AG Negative (NEGATIVE)
[2018-09-05 17:45] LABS: HEPATITIS A IGM NEGATIVE (NEGATIVE); HEPATITIS B CORE AB NEGATIVE (NEGATIVE)
[2018-09-05 17:56] LABS: HEPATITIS C ANTIBODY NEGATIVE (NEGATIVE)
--- NOTE | 2018-09-05 18:21 | CP.PCM.PN ---
Subjective - Date & Time of Evaluation Date of Evaluation: 09/05/18 Time of Evaluation: 10:00 - Subjective Subjective: still tachy on BiPaP afeb c/o LBM IV rx in progress Objective - Vital Signs/Intake and Output Vital Signs (last 24 hours): Temp Pulse Resp BP Pulse Ox 97.9 F 152 H 22 152/88 H 96 09/05/18 15:00 09/05/18 16:59 09/05/18 15:00 09/05/18 15:00 09/05/18 15:00 Intake and Output: 09/05/18 09/05/18 06:59 18:59 Intake Total 350 1140 Balance 350 1140 - Medications Medications: Current Medications Albuterol/Ipratropium (Duoneb 3 Mg/0.5 Mg (3 Ml) Ud) 3 ml IH RQ4 PRN PRN Reason: Shortness of Breath Last Admin: 09/05/18 14:00 Dose: 3 ml Bupropion HCl (Wellbutrin) 75 mg PO DAILY [facility] Last Admin: 09/05/18 10:16 Dose: Not Given Colchicine (Colocrys) 0.6 mg PO BID [facility] Last Admin: 09/05/18 18:14 Dose: 0.6 mg Cyclobenzaprine HCl (Flexeril) 5 mg PO TID [facility] Last Admin: 09/05/18 18:14 Dose: 5 mg Diazepam (Valium) 5 mg PO BID [facility] Last Admin: 09/05/18 18:14 Dose: 5 mg Dicyclomine HCl (Bentyl) 20 mg PO TID [facility] Last Admin: 09/05/18 18:16 Dose: 20 mg Diltiazem HCl (Cardizem Cd) 180 mg PO DAILY [facility] Ergocalciferol (Drisdol 50,000 Intl Units Cap) 1 cap PO Q7D [facility] Last Admin: 09/03/18 11:35 Dose: 1 cap Fluticasone/Vilanterol (Breo Ellipta 100-25 Mcg Inh) 1 puff INH RQ24 [facility] Last Admin: 09/05/18 14:00 Dose: 1 puff Furosemide (Lasix) 20 mg PO DAILY [facility] Last Admin: 09/02/18 09:52 Dose: 20 mg Gabapentin (Neurontin) 300 mg PO HS [facility] Last Admin: 09/03/18 21:58 Dose: 300 mg Glipizide (Glucotrol) 10 mg PO BID [facility] Last Admin: 09/05/18 18:14 Dose: 10 mg Hydrocortisone (Cortef) 20 mg PO TID [facility] Last Admin: 09/05/18 18:14 Dose: 20 mg Metronidazole (Flagyl) 500 mg in 100 mls @ 100 mls/hr IVPB Q8H [facility]; Protocol Last Admin: 09/05/18 10:45 Dose: 100 mls/hr Ceftriaxone Sodium 2 gm/ (Sodium Chloride) 100 mls @ 100 mls/hr IVPB Q24H [facility]; Protocol Last Admin: 09/04/18 21:36 Dose: 100 mls/hr Azithromycin 500 mg/ Sodium (Chloride) 250 mls @ 167 mls/hr IVPB Q24H [facility]; Protocol Last Admin: 09/04/18 01:00 Dose: 167 mls/hr Insulin Aspart (Novolog) 0 unit SC ACHS [facility]; Protocol Last Admin: 09/05/18 18:16 Dose: 2 unit Insulin Aspart (Novolog) [address] [facility] Insulin Aspart (Novolog) 15 unit SC [facility] Last Admin: 09/05/18 18:15 Dose: 15 units Ketorolac Tromethamine (Toradol) 30 mg IVP Q8 PRN PRN Reason: Pain, severe (8-10) Last Admin: 09/05/18 18:14 Dose: 30 mg Levothyroxine Sodium (Synthroid) 100 mcg PO 0630 [facility] Last Admin: 09/05/18 06:44 Dose: 100 mcg Magnesium Oxide (Mag-Ox) 400 mg PO BID [facility] Last Admin: 09/05/18 18:14 Dose: 400 mg Ondansetron HCl (Zofran Inj) 4 mg IVP Q8 PRN PRN Reason: Nausea/Vomiting Pantoprazole Sodium (Protonix Ec Tab) 40 mg PO DAILY [facility] Last Admin: 09/05/18 10:16 Dose: Not Given Rivaroxaban (Xarelto) 20 mg PO DAILY [facility] Last Admin: 09/05/18 13:24 Dose: 20 mg Rosuvastatin Calcium (Crestor) 10 mg PO HS [facility] Last Admin: 09/04/18 21:40 Dose: 10 mg Saccharomyces Boulardii (Florastor) 250 mg PO Q12 [facility] Last Admin: 09/05/18 10:16 Dose: Not Given Sitagliptin Phosphate (Januvia) 100 mg PO DAILY [facility] Last Admin: 09/05/18 10:16 Dose: Not Given Sucralfate (Carafate Oral Susp) 1 gm PO [facility] MATIAS - Labs Labs: 09/05/18 07:14 09/05/18 07:14 PT 21.0 SECONDS (9.7-12.2) H 09/05/18 16:44 INR 1.9 09/05/18 16:44 APTT 28 SECONDS (21-34) 09/05/18 16:44 - Constitutional Appears: In Acute Distress - Head Exam Head Exam: NORMOCEPHALIC - Eye Exam Eye Exam: absent: Scleral icterus - ENT Exam ENT Exam: Mucous Membranes Dry - Neck Exam Neck Exam: absent: Lymphadenopathy - Respiratory Exam Respiratory Exam: Decreased Breath Sounds, Prolonged Expiratory Phase, Rhonchi - Cardiovascular Exam Cardiovascular Exam: Tachycardia, REGULAR RHYTHM, +S1, +S2 - GI/Abdominal Exam GI & Abdominal Exam: Distended, Soft - Rectal Exam Rectal Exam: Deferred - Exam Exam: NORMAL INSPECTION - Extremities Exam Extremities Exam: Pedal Edema - Back Exam Back Exam: absent: CVA tenderness (L), CVA tenderness (R) - Neurological Exam Neurological Exam: Alert, Awake, CN II-XII Intact, Oriented x3 Neuro motor strength exam: Left Upper Extremity: 3, Right Upper Extremity: 3, Left Lower Extremity: 3, Right Lower Extremity: 3 - Psychiatric Exam Psychiatric exam: Depressed - Skin Skin Exam: Dry Assessment and Plan (1) COPD (chronic obstructive pulmonary disease) Status: Acute (2) Closed fracture of right proximal tibia Status: Acute (3) Fever Status: Acute (4) Hyperglycemia Status: Acute (5) CHF (congestive heart failure) Status: Chronic (6) Diabetes mellitus Status: Chronic (7) HTN (hypertension) Status: Chronic (8) History of DVT (deep vein thrombosis) Status: Chronic (9) History of pulmonary embolus (PE) Status: Chronic (10) Hypothyroid Status: Chronic (11) SVT (supraventricular tachycardia) Status: Chronic (12) Sepsis Status: Suspected - Assessment and Plan (Free Text) Assessment: CULTURES NEG THUS FAR SWITCH TO AVELOX
--- NOTE | 2018-09-05 18:28 | PN ---
DATE: 09/05/2018 LOCATION: 556, bed A. SUBJECTIVE: This 63-year-old female is seen and examined in rounds initially with GI consultation done on 09/04/2018, reexamined again today with persistent complaint of abdominal pain with dyspepsia and nausea. The entire chart is reviewed including but not limited to the current and the previous medication list and current and previous medical events. The patient is still complaining of generalized body ache, midepigastric pain but no chest pain, palpitation and no significant increase of shortness of breath. LABORATORY DATA: Today's lab results showed hemoglobin of 9 and hematocrit 30.5 with low indices highly suggestive of hypochromic microcytic anemia with thrombocytosis of 405 with CO2 content of 20. Blood glucose level was 223 with AST of 112, ALT of 132, albumin 2.5, and total protein 4.6. PHYSICAL EXAMINATION: GENERAL: A 63-year-old female. VITAL SIGNS: Afebrile with pulse of 102, respiratory rate 20-22, blood pressure of 140/80. HEENT: Showed pale dry oral mucoid membrane. Nonicteric sclerae. LUNGS: Few scattered crepitation. Decreased air entry at bases. HEART: Positive S1 and S2. ABDOMEN: Soft with mild generalized tenderness. No mass or organomegaly. No rebound tenderness or guarding, but generalized tenderness. EXTREMITIES Without significant clubbing, cyanosis or edema. RECTAL: The patient refused. NEUROLOGICAL: No reported new neurological deficits, sensory or motor and no local deficits. IMPRESSION: 1. Re-exacerbation of peptic ulcer disease, to rule out gastric versus duodenal ulcer. 2. Multiple past medical history includes including rheumatoid arthritis, depression, severe anxiety syndrome, bronchial asthma, cardiac arrhythmia with congestive heart failure. 3. Poorly controlled diabetes mellitus, known history of deep venous thrombosis. 4. Right hip fracture by history. 5. Hyperlipidemia, hypertension, hypothyroidism with reported pulmonary embolism by history. 6. Status post cholecystectomy as well as back surgery of unclear etiology. 7. Abnormal liver function tests that could be secondary to viral hepatitis, chemical hepatitis or right-sided failure. SUGGESTIONS: 1. Continue current management. 2. Add Carafate p.o. 3. . 4. Cancer markers. 5. Sectional abdominal and pelvic CAT scan. 6. Endoscopic evaluation of the GI tract due to the patient's anemia if there is no significant improvement. Further recommendation to follow. Cara Piedra MD
[2018-09-05 19:19] LABS: ALBUMIN (PEP) 2.5 g/dL (3.8-4.8); ALPHA-1-GLOBULIN (PEP) 0.4 g/dL (0.2-0.3)
--- NOTE | 2018-09-05 19:50 | CARD ---
APPROVED REPORT Date of service: 09/04/2018 EKG Measurement Heart [id number] <Conclusion> Sinus tachycardia Otherwise normal ECG
[2018-09-05] MEDS: Sucralfate 1 gm/10 ml Oral Susp UD PO SCH (21:51)
[2018-09-05] MEDS: cefTRIAXone 2 GM in Sodium Chloride 0.9% 100 ML IVPB SCH (22:43)
[2018-09-06] MEDS: Cefepime IV 1 gm in Dextrose 1 GM/50 ML BAG IVPB SCH ×2 (01:02→10:23)
--- NOTE | 2018-09-06 02:00 | PCM.RRT ---
<LucyazamIno - Last Filed: 09/06/18 03:23> [facility] Nurses Assessment - Situation Date: 09/04/18 Time [facility] was called: 14:20 [facility] Responder Arrival Time:: 14:25 [facility] Location:: Med/Surg [facility] Reason for Call: Respiratory Distress [facility] Called By: RN - IV IV Inserted during [facility]?: No IV Fluids Initiated During [facility]?: No New IV Insertion Tolerance: Fair - Respiratory [facility] Delivery Method: Nasal Cannula @L/min Oxygen Flow Rate: 3 Received Nebulizer Treatments: Yes Was the Patient Ventilated with Bag/Mask 100% O2?: No Secretions Suctioned?: No Was the Patient Intubated?: No Was the Patient Placed on a Ventilator?: No - Ventilator Settings FIO2 (% Oxygen): 35 - Medication Medications Administered During [facility]: Tylenol 650 mg suppository. Solu-medrol 40 mg IV. Duoneb treatment - Diagnostic Test Ordered EKG: Yes Chest X-Ray: Yes CT Scan: No - Stat Labs Ordered [facility] Stat Labs Ordered: CBC, LACTIC ACID, BLOOD C&S X2, ABG [facility] Other Labs Ordered: CMP, Lactic acid, Pro-bnp CPR started during [facility]?: No - Vital Signs Vital Signs: Rapid Response Vital Sign Blood Pressure 157/99 Pulse Rate 131 Respiratory Rate 24 Temperature 97.8 F Oxygen Saturation 100 - Time [facility] Ended Time [facility] Ended: 15:04 - Vital Signs at end of [facility] Vital Signs at end of [facility]: Rapid Response End Vital Sign Blood Pressure 152/88 Pulse Rate 137 Respiratory Rate 20 Temperature 97.2 F O2 Sat by Pulse Oximetry 97 - Recommendations Notifications: Attending Physician I.Reason for [facility] - A) Acute Change in Patient: (Select all that apply): Staff member or family is worried about patient - Respiratory Oxygen Delivery Method: Nasal Cannula @L/min Oxygen Flow Rate: 3 - Constitutional Appears: No Acute Distress Additional Comments: Patient unruly, yelling and cursing - Head Head Exam: ATRAUMATIC, NORMOCEPHALIC - Eyes Eye Exam: EOMI, Normal appearance - Respiratory Exam Respiratory Exam: Clear to Ausculation Bilateral, NORMAL BREATHING PATTERN. absent: Rhonchi, Wheezes Additional comments: Bipap at bedside, patient not wearing - Cardiovascular Exam Cardiovascular Exam: REGULAR RHYTHM, +S1, +S2 - GI/Abdominal Exam GI & Abdominal Exam: Soft, Normal Bowel Sounds. absent: Tenderness - Neurological Exam Neurological Exam: Alert, Awake, Oriented x3 - Extremities Exam Extremities Exam: Normal Inspection. absent: Pedal Edema Plan - Assessment of Findings&Treatment Plan Rapid response note for Dr. Morales PGY-1 rapid response called for shortness of breath. Patient on bipap and has not been wearing bipap mask. Patient has been persistently tachycardic - is sinus tachy on monitor, and has been sinus tach for several days. I have seen this patient for various complaints and issues overnight during her hospitalization. [facility] called for same reason two nights ago - CTA was ordered and patient refused test. She has been noncompliant during this hospital course, refusing tests and not compliant with NPO diet. Patient has been requesting pain meds. Primary team held home percocet for prior hypotension. No significant change from patient's baseline noted during this [facility]. Most recent CXR from 09/04 reviewed showing no change from previous CXR. Patient was given 10 mg Oxycodone IR for pain. Withdrawal from opioids could be a contributing factor to tachycardia, as could pain. No acetominophen given as patient has elevated LFTs. Blood Pressure 157/99 Pulse Rate 131 Respiratory Rate 24 Temperature 97.8 F Oxygen Saturation 100 <Marcelo Morales P - Last Filed: 09/06/18 08:17> [facility] Nurses Assessment - Vital Signs Vital Signs: Rapid Response Vital Sign Blood Pressure 157/99 Pulse Rate 131 Respiratory Rate 24 Temperature 97.8 F Oxygen Saturation 100 - Vital Signs at end of [facility] Vital Signs at end of [facility]: Rapid Response End Vital Sign Blood Pressure 152/88 Pulse Rate 137 Respiratory Rate 20 Temperature 97.2 F O2 Sat by Pulse Oximetry 97 Attending/Attestation - Attestation I have personally seen and examined this patient.: Yes I have fully participated in the care of the patient.: Yes I have reviewed all pertinent clinical information, including history, physical exam and plan: Yes Notes (Text): 09/06/18 08:17 Patient assessed with resident during [facility] agreed with assessment and plan.
[2018-09-06] MEDS ORDERED: oxyCODONE 10 mg Immediate Release Tab PO STA (02:08)
[2018-09-06] MEDS: metroNIDAZOLE IV 500 mg/100 ml 500 MG/100 ML BAG IVPB SCH ×3 (03:37→21:58)
[2018-09-06] MEDS: Levothyroxine 100 MCG TAB PO SCH (06:28)
[2018-09-06] MEDS: Fluticasone-Vilanterol 100/25mcg Diskus INH SCH (07:40)
[2018-09-06 07:57] LABS: ALB/GLOB RATIO 1.2 (1.0-2.1); ALBUMIN 2.7 g/dL (3.5-5.0)
[2018-09-06 08:19] LABS: BASO # 0.1 K/uL (0.0-0.2); BASO % 1.2 % (0.0-2.0); EOS # 0.1 K/uL (0.0-0.7); EOS % 0.6 % (0.0-4.0); HEMOGLOBIN 8.8 g/dL (11.0-16.0); LYMPH % 20.9 % (20.0-40.0); MEAN CORPUSCULAR HEMOGLOBIN 22.6 pg (27.0-31.0); MEAN CORPUSCULAR HGB CONC 29.5 g/dL (33.0-37.0); MEAN PLATELET VOLUME 8.7 fL (7.2-11.7); MONO # 1.1 K/uL (0.0-0.8); MONO % 11.7 % (0.0-10.0); NEUT # 6.3 K/uL (1.8-7.0); NEUT % 65.6 % (50.0-75.0); NRBC % 0.4 % (0.0-2.0); RBC 3.87 Mil/uL (3.80-5.20); RED CELL DISTRIBUTION WIDTH 19.7 % (11.5-14.5); WHITE BLOOD COUNT 9.7 K/uL (4.8-10.8)
[2018-09-06 08:25] LABS: MEAN CELL VOLUME 76.5 fL (81.0-99.0)
[2018-09-06] MEDS: Sucralfate 1 gm/10 ml Oral Susp UD PO SCH ×2 (08:45→21:54)
[2018-09-06] MEDS: (Novolog) Insulin Aspart, Recombinant 100 u/ml 10 ml vial SC SCH ×7 (08:45→21:57)
--- NOTE | 2018-09-06 09:27 | RAD ---
Date of service: 09/05/2018 PROCEDURE: Right Knee Radiographs. HISTORY: knee pain COMPARISON: 08/02/2018 FINDINGS: BONES: A comminuted proximal tibial metaphyseal fracture in a background of osteopenia and advanced osteoarthrosis is noted. Compared to the prior exam there is increased sclerosis bordering the fracture lines. Some minimal lateral callus formation likely present. Posterior tibial plateau intra-articular fracture component is suspect. A partially visualized femoral shaft intramedullary val is noted. JOINTS: Tricompartmental osteoarthrosis. JOINT EFFUSION: None. OTHER FINDINGS: Atherosclerotic vascular calcifications present.. Extensive subcutaneous edema IMPRESSION: Comminuted fracture proximal tibial metaphysis with suspect intra-articular extension. Trace lateral callus formation noted. Background osteoarthrosis and background osteopenia. Comments: Recommend CT of the right knee for mapping the extent of right knee fractures. Any concomitant possible mild tibial plateau depression can be assessed. : Study marked for PA review .
--- NOTE | 2018-09-06 10:00 | PN ---
DATE: 09/06/2018 LOCATION: 556, bed A. SUBJECTIVE: This is a 63-year-old female seen and examined early in rounds today with a complaint of generalized abdominal pain all over her body including her lower extremities as well as her abdomen with back pain with reported tachycardia at some point. The patient is post rapid response secondary to her shortness of breath during early hours this morning. The most recent lab results showed PT of 21, blood glucose level 230 with excessive increase of CEA of 42.5, CA 19-9 is 1980, CA-125 antigen elevated to 36.2. Hepatitis profile was reported to be negative. PHYSICAL EXAMINATION: GENERAL: A 63-year-old female. VITAL SIGNS: Afebrile with heart rate 130, respiratory rate 20 to 24, blood pressure 144/90. HEENT: Showed pale dry oral mucous membrane. Nonicteric sclerae. LUNGS: Few scattered crepitation. Decreased air entry at bases. HEART: Positive S1 and S2. ABDOMEN: Soft with mild distention and generalized tenderness. No mass or organomegaly. No rebound tenderness or guarding. EXTREMITIES: Lower extremities, mild edematous changes. No clubbing or cyanosis. NEUROLOGIC: No reported new neurological deficit, sensory or motor; however, the patient appeared to be anxious and upset. IMPRESSION: 1. Re-exacerbation of peptic ulcer disease, to rule out gastric versus duodenal ulcer. 2. Excessive elevation of carcinoembryonic antigen level, to rule out occult lower gastrointestinal malignancy. 3. Right hip fracture by history. 4. Poorly controlled diabetes mellitus with possible diabetic gastroparesis, known history of deep venous thrombosis. 5. Hyperlipidemia, poorly controlled hypertension with hypothyroidism. 6. Reported pulmonary embolus by history. 7. Status post cholecystectomy, status post back surgery. 8. Abnormal liver function test which could be secondary to infectious process versus chemical hepatitis. SUGGESTIONS: 1. Agree with your plan. 2. Sectional abdominal and pelvic CAT scan. 3. The patient will need endoscopic evaluation of the GI tract when she is more stable clinically. Further recommendation to follow. Cara Piedra MD
[2018-09-06] MEDS: Pantoprazole 40 mg EC Tab PO SCH (10:21)
[2018-09-06] MEDS: Saccharomyces Boulardi 250 mg Cap PO SCH ×2 (10:22→21:54)
[2018-09-06] MEDS: Magnesium Oxide 400 mg Tab UD PO SCH ×2 (10:23→18:02)
--- NOTE | 2018-09-06 10:30 | CP.PCM.CON ---
History of Present Illness - History of Present Illness History of Present Illness: Orthopedic consultation Dr. Hernandez 63F known from prior admission with right proximal tibia fracture 08/02/2018, admitted for fever. She has seen Dr. Hernandez since admission for follow up. Review of Systems - Review of Systems All systems: reviewed and no additional remarkable complaints except - Musculoskeletal Musculoskeletal: As Per HPI Past Patient History - Infectious Disease Hx of Infectious Diseases: None - Past Medical History & Family History Past Medical History?: Yes Past Family History: Reviewed and not pertinent - Past Social History Smoking Status: Never Smoked - CARDIAC Hx Congestive Heart Failure: Yes Hx Hypercholesterolemia: Yes Hx Hypertension: Yes - PULMONARY Hx Chronic Obstructive Pulmonary Disease (COPD): Yes - NEUROLOGICAL Hx Neurological Disorder: Yes HX Cerebrovascular Accident: Yes - HEENT Hx HEENT Problems: No - RENAL Hx Chronic Kidney Disease: No - ENDOCRINE/METABOLIC Hx Endocrine Disorders: Yes Hx Hypothyroidism: Yes - HEMATOLOGICAL/ONCOLOGICAL Hx Blood Disorders: Yes Hx Anemia: Yes - INTEGUMENTARY Hx Dermatological Problems: No - MUSCULOSKELETAL/RHEUMATOLOGICAL Hx Rheumatoid Arthritis: Yes - GASTROINTESTINAL Hx Gastrointestinal Disorders: Yes Hx Gall Bladder Disease: Yes - GENITOURINARY/GYNECOLOGICAL Hx Genitourinary Disorders: Yes Hx Urinary Tract Infection: Yes - PSYCHIATRIC Hx Psychophysiologic Disorder: Yes Hx Anxiety: Yes Hx Depression: Yes Hx Substance Use: No - SURGICAL HISTORY Hx Surgeries: Yes Hx Appendectomy: No Hx Cholecystectomy: Yes - ANESTHESIA Hx Anesthesia: Yes Hx Anesthesia Reactions: Yes (DIFFICULTY BREATHING) Meds Allergies/Adverse Reactions: Allergies Allergy/AdvReac Type Severity Reaction Status Date / Time No Known Allergies Allergy Verified 09/01/18 17:29 - Medications Medications: Current Medications Albuterol/Ipratropium (Duoneb 3 Mg/0.5 Mg (3 Ml) Ud) 3 ml RQ4 PRN PRN Reason: Shortness of Breath Last Admin: 09/05/18 14:00 Dose: 3 ml Bupropion HCl (Wellbutrin) 75 mg PO DAILY [facility] Last Admin: 09/05/18 10:16 Dose: Not Given Colchicine (Colocrys) 0.6 mg PO BID [facility] Last Admin: 09/05/18 18:14 Dose: 0.6 mg Cyclobenzaprine HCl (Flexeril) 5 mg PO TID [facility] Last Admin: 09/05/18 18:14 Dose: 5 mg Diazepam (Valium) 5 mg PO BID [facility] Last Admin: 09/05/18 18:14 Dose: 5 mg Dicyclomine HCl (Bentyl) 20 mg PO TID [facility] Last Admin: 09/05/18 18:16 Dose: 20 mg Diltiazem HCl (Cardizem Cd) 180 mg PO DAILY [facility] Ergocalciferol (Drisdol 50,000 Intl Units Cap) 1 cap PO Q7D [facility] Last Admin: 09/03/18 11:35 Dose: 1 cap Fluticasone/Vilanterol (Breo Ellipta 100-25 Mcg Inh) 1 puff INH RQ24 [facility] Last Admin: 09/06/18 07:40 Dose: 1 puff Furosemide (Lasix) 20 mg PO DAILY [facility] Last Admin: 09/02/18 09:52 Dose: 20 mg Gabapentin (Neurontin) 300 mg PO HS [facility] Last Admin: 09/05/18 21:52 Dose: 300 mg Glipizide (Glucotrol) 10 mg PO BID [facility] Last Admin: 09/05/18 18:14 Dose: 10 mg Hydrocortisone (Cortef) 20 mg PO TID [facility] Last Admin: 09/05/18 18:14 Dose: 20 mg Metronidazole (Flagyl) 500 mg in 100 mls @ 100 mls/hr IVPB Q8H [facility]; Protocol Last Admin: 09/06/18 03:37 Dose: 100 mls/hr Azithromycin 500 mg/ Sodium (Chloride) 250 mls @ 167 mls/hr IVPB Q24H [facility]; Protocol Last Admin: 09/04/18 01:00 Dose: 167 mls/hr Cefepime HCl (Maxipime Iv 1 Gm Premix) 1 gm in 50 mls @ 100 mls/hr IVPB Q12H [facility]; Protocol Last Admin: 09/06/18 01:02 Dose: 100 mls/hr Insulin Aspart (Novolog) 0 unit SC ACHS [facility]; Protocol Last Admin: 09/05/18 21:52 Dose: Not Given Insulin Aspart (Novolog) 25 unit SC HS [facility] Last Admin: 09/05/18 21:53 Dose: 25 u Insulin Aspart (Novolog) 15 unit SC ACHS [facility] Last Admin: 09/05/18 21:53 Dose: Not Given Ketorolac Tromethamine (Toradol) 30 mg IVP Q8 PRN PRN Reason: Pain, severe (8-10) Last Admin: 09/06/18 03:57 Dose: 30 mg Levothyroxine Sodium (Synthroid) 100 mcg PO 0630 [facility] Last Admin: 09/06/18 06:28 Dose: 100 mcg Magnesium Oxide (Mag-Ox) 400 mg PO BID [facility] Last Admin: 09/05/18 18:14 Dose: 400 mg Ondansetron HCl (Zofran Inj) 4 mg IVP Q8 PRN PRN Reason: Nausea/Vomiting Pantoprazole Sodium (Protonix Ec Tab) 40 mg PO DAILY [facility] Last Admin: 09/05/18 10:16 Dose: Not Given Rivaroxaban (Xarelto) 20 mg PO DAILY [facility] Last Admin: 09/05/18 13:24 Dose: 20 mg Rosuvastatin Calcium (Crestor) 10 mg PO HS [facility] Last Admin: 09/05/18 21:51 Dose: 10 mg Saccharomyces Boulardii (Florastor) 250 mg PO Q12 [facility] Last Admin: 09/05/18 21:52 Dose: 250 mg Sitagliptin Phosphate (Januvia) 100 mg PO DAILY [facility] Last Admin: 09/05/18 10:16 Dose: Not Given Sucralfate (Carafate Oral Susp) 1 gm PO ACBHS [facility] Last Admin: 09/05/18 21:51 Dose: 1 gm Physical Exam - Constitutional Appears: Well, No Acute Distress - Head Exam Head Exam: ATRAUMATIC - Neck Exam Neck exam: Positive for: Full Rom, Normal Inspection - Respiratory Exam Respiratory Exam: NORMAL BREATHING PATTERN - Cardiovascular Exam Additional comments: +DP/PT - Extremities Exam Additional comments: calves soft NT neg homans sensation intact - Expanded Lower Extremities Exam Right Knee exam: ecchymosis, tenderness Ankle exam: FULL ROM (able to DF/PF toes flex/ext but weak from disuse) Neuro vacular tendon exam: no vascular compromise - Neurological Exam Neurological exam: Alert - Psychiatric Exam Psychiatric exam: Flat Affect - Skin Skin Exam: Dry, Intact, Warm Additional comments: +ecchymosis to right leg. scab to medial aspect of thigh. No knee immobilizer. webril dave and knee immobilizer applied. Results - Vital Signs Recent Vital Signs: Last Vital Signs Temp 98.4 F 09/06/18 08:00 Pulse 133 H 09/06/18 09:10 Resp 18 09/06/18 08:00 BP 139/84 09/06/18 08:00 Pulse Ox 94 L 09/06/18 08:00 - Labs Result Diagrams: 09/06/18 07:20 09/06/18 07:20 Labs: Laboratory Results - last 24 hr 09/03/18 09/03/18 09/05/18 07:12 07:12 11:15 WBC RBC Hgb Hct MCV MCH MCHC RDW Plt Count MPV Neut % (Auto) Lymph % (Auto) Callahan % (Auto) Eos % (Auto) Baso % (Auto) Neut # (Auto) Lymph # (Auto) Callahan # (Auto) Eos # (Auto) Baso # (Auto) PT INR APTT Sodium Potassium Chloride Carbon Dioxide Anion Gap BUN Creatinine Est GFR ( Amer) Est GFR (Non-Af Amer) POC Glucose (mg/dL) Random Glucose Calcium Total Bilirubin AST ALT Alkaline Phosphatase Total Protein Albumin Albumin (PEP) 2.5 L Globulin Albumin/Globulin Ratio Zdtrp-9-Mxjifwnjo 0.4 H Pjhgz-1-Agxdhexrh 0.8 Kjzj-9-Dxinuasr 0.5 Aulv-2-Ctzsxdhq 0.3 Gamma Globulins 0.6 L Abnorm Protein Band 1 TEST NOT PERFORMED Abnorm Protein Band 2 TEST NOT PERFORMED Abnorm Protein Band 3 TEST NOT PERFORMED Alpha Fetoprotein Carcinoembryonic Ag CA 19-9 Antigen CA 125 Antigen JESUSITA & SPEP Interp See note Serum Immunofixation Not detected Hepatitis A IgM Ab Hep Bs Antigen Hep B Core IgM Ab Hepatitis C Antibody Influenza Typ A,B (EIA) Negative for flu a/b 09/05/18 09/05/18 09/05/18 11:36 16:01 16:44 WBC RBC Hgb Hct MCV MCH MCHC RDW Plt Count MPV Neut % (Auto) Lymph % (Auto) Callahan % (Auto) Eos % (Auto) Baso % (Auto) Neut # (Auto) Lymph # (Auto) Callahan # (Auto) Eos # (Auto) Baso # (Auto) PT 21.0 H INR 1.9 APTT 28 Sodium Potassium Chloride Carbon Dioxide Anion Gap BUN Creatinine Est GFR ( Amer) Est GFR (Non-Af Amer) POC Glucose (mg/dL) 223 H 244 H Random Glucose Calcium Total Bilirubin AST ALT Alkaline Phosphatase Total Protein Albumin Albumin (PEP) Globulin Albumin/Globulin Ratio Oztvr-0-Pdxdqgoet Klsec-6-Mefamigym Lnkf-0-Pdiqwkve Hdil-0-Wbfpujaf Gamma Globulins Abnorm Protein Band 1 Abnorm Protein Band 2 Abnorm Protein Band 3 Alpha Fetoprotein Carcinoembryonic Ag CA 19-9 Antigen CA 125 Antigen JESUSITA & SPEP Interp Serum Immunofixation Hepatitis A IgM Ab Hep Bs Antigen Hep B Core IgM Ab Hepatitis C Antibody Influenza Typ A,B (EIA) 09/05/18 09/05/18 09/05/18 16:44 16:44 16:44 WBC RBC Hgb Hct MCV MCH MCHC RDW Plt Count MPV Neut % (Auto) Lymph % (Auto) Callahan % (Auto) Eos % (Auto) Baso % (Auto) Neut # (Auto) Lymph # (Auto) Callahan # (Auto) Eos # (Auto) Baso # (Auto) PT INR APTT Sodium Potassium Chloride Carbon Dioxide Anion Gap BUN Creatinine Est GFR ( Amer) Est GFR (Non-Af Amer) POC Glucose (mg/dL) Random Glucose Calcium Total Bilirubin AST ALT Alkaline Phosphatase Total Protein Albumin Albumin (PEP) Globulin Albumin/Globulin Ratio Bgsty-3-Qeyukowqu Gswjy-9-Mqycagqwi Dokk-0-Yiwfhzkp Xnvq-7-Nwzuafrx Gamma Globulins Abnorm Protein Band 1 Abnorm Protein Band 2 Abnorm Protein Band 3 Alpha Fetoprotein 6.7 Carcinoembryonic Ag 42.5 H CA 19-9 Antigen 1980 H CA 125 Antigen 36.2 H D JESUSITA & SPEP Interp Serum Immunofixation Hepatitis A IgM Ab Negative Hep Bs Antigen Negative Hep B Core IgM Ab Negative Hepatitis C Antibody Negative Influenza Typ A,B (EIA) 09/05/18 09/06/18 09/06/18 20:56 06:18 07:20 WBC 9.7 RBC 3.87 Hgb 8.8 L Hct 29.6 L MCV 76.5 L D MCH 22.6 L MCHC 29.5 L RDW 19.7 H Plt Count 376 MPV 8.7 Neut % (Auto) 65.6 Lymph % (Auto) 20.9 Callahan % (Auto) 11.7 H Eos % (Auto) 0.6 Baso % (Auto) 1.2 Neut # (Auto) 6.3 Lymph # (Auto) 2.0 Callahan # (Auto) 1.1 H Eos # (Auto) 0.1 Baso # (Auto) 0.1 PT INR APTT Sodium Potassium Chloride Carbon Dioxide Anion Gap BUN Creatinine Est GFR ( Amer) Est GFR (Non-Af Amer) POC Glucose (mg/dL) 251 H 230 H Random Glucose Calcium Total Bilirubin AST ALT Alkaline Phosphatase Total Protein Albumin Albumin (PEP) Globulin Albumin/Globulin Ratio Fzxpi-7-Aurvadgnz Ukrgq-9-Gviqvmcwm Tyce-7-Bvngxfmu Vjdb-9-Uocnlmzi Gamma Globulins Abnorm Protein Band 1 Abnorm Protein Band 2 Abnorm Protein Band 3 Alpha Fetoprotein Carcinoembryonic Ag CA 19-9 Antigen CA 125 Antigen JESUSITA & SPEP Interp Serum Immunofixation Hepatitis A IgM Ab Hep Bs Antigen Hep B Core IgM Ab Hepatitis C Antibody Influenza Typ A,B (EIA) 09/06/18 07:20 WBC RBC Hgb Hct MCV MCH MCHC RDW Plt Count MPV Neut % (Auto) Lymph % (Auto) Callahan % (Auto) Eos % (Auto) Baso % (Auto) Neut # (Auto) Lymph # (Auto) Callahan # (Auto) Eos # (Auto) Baso # (Auto) PT INR APTT Sodium 138 Potassium 3.5 L Chloride 112 H Carbon Dioxide 19 L Anion Gap 11 BUN 20 H Creatinine 1.2 Est GFR ( Amer) 55 Est GFR (Non-Af Amer) 45 POC Glucose (mg/dL) Random Glucose 187 H D Calcium 8.0 L Total Bilirubin 0.2 AST 92 H ALT 128 H Alkaline Phosphatase 102 Total Protein 5.0 L Albumin 2.7 L Albumin (PEP) Globulin 2.3 Albumin/Globulin Ratio 1.2 Llwhl-4-Pyjnvrsdt Sshxw-7-Pzjbsvckh Fjcr-6-Wkpllhbs Wmkz-5-Fhqmzuuw Gamma Globulins Abnorm Protein Band 1 Abnorm Protein Band 2 Abnorm Protein Band 3 Alpha Fetoprotein Carcinoembryonic Ag CA 19-9 Antigen CA 125 Antigen JESUSITA & SPEP Interp Serum Immunofixation Hepatitis A IgM Ab Hep Bs Antigen Hep B Core IgM Ab Hepatitis C Antibody Influenza Typ A,B (EIA) - Impressions Impression: atient Name / ID : STEPHANIE MONROY / [id number] Exam Date : 09/05/2018 19:22:54 ( Approved ) Study Comment : Sex / Age : F / 63Y Creator : Gissel Jade Dictator : Gissel Jade Disk [employer] T[employer] Machine Tender : Program Coordinator Executive Education : Gissel Jade Approver2 : Report Date : 09/06/2018 09:21:43 My Comment : Date of service: 09/05/2018 PROCEDURE: Right Knee Radiographs. HISTORY: knee pain COMPARISON: 08/02/2018 FINDINGS: BONES: A comminuted proximal tibial metaphyseal fracture in a background of osteopenia and advanced osteoarthrosis is noted. Compared to the prior exam there is increased sclerosis bordering the fracture lines. Some minimal lateral callus formation likely present. Posterior tibial plateau intra-articular fracture component is suspect. A partially visualized femoral shaft intramedullary val is noted. JOINTS: Tricompartmental osteoarthrosis. JOINT EFFUSION: None. OTHER FINDINGS: Atherosclerotic vascular calcifications present.. Extensive subcutaneous edema IMPRESSION: Comminuted fracture proximal tibial metaphysis with suspect intra-articular extension. Trace lateral callus formation noted. Background osteoarthrosis and background osteopenia. Comments: Recommend CT of the right knee for mapping the extent of right knee fractures. Any concomitant possible mild tibial plateau depression can be assessed. : Study marked for PA review . Assessment & Plan (1) Closed fracture of right proximal tibia Assessment and Plan: some callus noted on xrays continue well padded knee immobilizer non operative PT/OT NWB VTE proph f/u Dr. Hernandez 1-2 weeks upon d/c d/w Dr. Hernandez, agrees with above Status: Acute
[2018-09-06] MEDS ORDERED: Iohexol 240 (50 ml) PO ONE (10:45)
--- NOTE | 2018-09-06 10:45 | CP.PCM.PN ---
Subjective - Date & Time of Evaluation Date of Evaluation: 09/06/18 Time of Evaluation: 10:44 - Subjective Subjective: Nephrology Consultation Note: Assessment: Stable Acute Kidney Injury (N17.9) likely due to hypotension/sepsis/renal hypoperfusion as also evident by concomitant abnormal AST/ALT: IMPROVING Anemia hyponatremia GPC sepsis hypomagnesemia DM, HTN dCHF, DVT/PE s/p IVC filter, gout, hypothyroidism hyperlipidemia fibromyalgias depression/anxiety COPD Adrenal Insuff Plan No acute need for renal replacement therapy at this time. Hypertension control with meds as ordered. Maintain hemodynamics stable. Avoid hypotension. Patient not on ACEI/ARB due to recent KARMA. can resume if BP high Monitor Input/Output, daily weights and renal function with basic metabolic panel can resume lasix from renal perspective supplement lytes as needed Check urine analysis, spot protein/creatinine, albumin/creatinine ratio, renal sonogram Anemia work up with TSAT/Ferritin/Vitamin B12/folate, serum protein electrophoresis with immunofixation, serum free light chain assay (Dennard/Lambda) Dose meds/antibiotics for improved GFR. Glycemic control Further work up/management as per primary team Thanks for allowing me to participate in care of your patient. Will follow patient with you. Please call if any Qs. had d/w team Dr Robert Lam Office: [phone] Chief Complaint; fever Reason for consult: Acute Kidney Injury HPI: Pt is a 63 F with hx of diabetes Mellitus ( years), hypertension (years) dCHF, DVT/PE s/p IVC filter, gout, hypothyroidism hyperlipidemia fibromyalgias depression/amxiety COPD presented with complaints of fever and cough, admitted for KARMA and ? COPD exacerbation Denies OTC/herbal meds or NSAIDs No recent iodinated contrast exposure. Noted obvious episodes of low BP (88/46). ROS: limited from pt Cardiovascular: No chest pain. Pulmonary: c/o shortness of breath Gastrointestinal: c/o abdominal pain No nausea. No vomiting. Genitourinary: No pain while urinating. Denies blood in urine. All other negative except as mentioned in HPI Physical Examination: General Appearance: uncomfortable, in no acute respiratory distress, co- operative . on BiPAP Vitals reviewed and noted as below Head; Atraumatic, normocephalic ENT: no ulcers no thrush. Tongue is midline/dry. Oropharynx: no rash or ulcers. EYES: Pupils are equal, round and reactive to light accommodation. Eye muscles and extraocular movement intact. Sclera is anicteric. Neck; supple no lymphadenopathy, no thyromegaly or bruit Lungs: Normal respiratory rate/effort. Breath sounds bilateral equal and few basal crackle Heart: Increased rate. s1s2 normal. No rub or gallop. Extremities: 1+ edema. No varicose veins Neurological: Patient is alert, awake and oriented to person, place and time. No focal deficit. Strength bilateral appropriate and equal Skin: Warm and dry. Normal turgor. No rash. Palpitation: Normal elasticity for age Abdomen: Abdomen is soft. Bowel sounds +. There is no abdominal tenderness, no guarding/rigidity no organomegaly Psych: limited insight and normal affect/mood MSK: no joint tenderness or swelling. Digits and nails normal, no deformity. Rt leg in splint : kidney or bladder not palpable Labs/imaging reviewed. Past medical history, past surgical history, family history, social history, allergy reviewed and noted as below Family hx: no hx of CKD. Rest non-contributory Hep B/C neg UA no protein Objective - Vital Signs/Intake and Output Vital Signs (last 24 hours): Temp Pulse Resp BP Pulse Ox 98.4 F 133 H 18 138/78 94 L 09/06/18 08:00 09/06/18 09:10 09/06/18 08:00 09/06/18 10:22 09/06/18 08:00 - Medications Medications: Current Medications Albuterol/Ipratropium (Duoneb 3 Mg/0.5 Mg (3 Ml) Ud) 3 ml IH RQ4 PRN PRN Reason: Shortness of Breath Last Admin: 09/05/18 14:00 Dose: 3 ml Bupropion HCl (Wellbutrin) 75 mg PO DAILY [facility] Last Admin: 09/06/18 10:23 Dose: 75 mg Colchicine (Colocrys) 0.6 mg PO BID [facility] Last Admin: 09/06/18 10:25 Dose: 0.6 mg Cyclobenzaprine HCl (Flexeril) 5 mg PO TID [facility] Last Admin: 09/06/18 10:21 Dose: 5 mg Diazepam (Valium) 5 mg PO BID [facility] Last Admin: 09/06/18 10:21 Dose: 5 mg Dicyclomine HCl (Bentyl) 20 mg PO TID [facility] Last Admin: 09/06/18 10:24 Dose: 20 mg Diltiazem HCl (Cardizem Cd) 180 mg PO DAILY [facility] Ergocalciferol (Drisdol 50,000 Intl Units Cap) 1 cap PO Q7D [facility] Last Admin: 09/03/18 11:35 Dose: 1 cap Fluticasone/Vilanterol (Breo Ellipta 100-25 Mcg Inh) 1 puff INH RQ24 [facility] Last Admin: 09/06/18 07:40 Dose: 1 puff Furosemide (Lasix) 20 mg PO DAILY [facility] Last Admin: 09/06/18 10:22 Dose: 20 mg Gabapentin (Neurontin) 300 mg PO [facility] Last Admin: 09/05/18 21:52 Dose: 300 mg Glipizide (Glucotrol) 10 mg PO BID [facility] Last Admin: 09/06/18 10:22 Dose: 10 mg Hydrocortisone (Cortef) 20 mg PO TID [facility] Last Admin: 09/06/18 10:22 Dose: 20 mg Metronidazole (Flagyl) 500 mg in 100 mls @ 100 mls/hr IVPB Q8H [facility]; Protocol Last Admin: 09/06/18 10:23 Dose: 100 mls/hr Azithromycin 500 mg/ Sodium (Chloride) 250 mls @ 167 mls/hr IVPB Q24H [facility]; Protocol Last Admin: 09/04/18 01:00 Dose: 167 mls/hr Cefepime HCl (Maxipime Iv 1 Gm Premix) 1 gm in 50 mls @ 100 mls/hr IVPB Q12H [facility]; Protocol Last Admin: 09/06/18 10:23 Dose: 100 mls/hr Insulin Aspart (Novolog) 0 unit SC ACHS [facility]; Protocol Last Admin: 09/06/18 08:45 Dose: 2 unit Insulin Aspart (Novolog) 25 unit SC HS [facility] Last Admin: 09/05/18 21:53 Dose: 25 u Insulin Aspart (Novolog) 15 unit SC ACHS [facility] Last Admin: 09/06/18 08:45 Dose: 15 units Iohexol (Omnipaque 240 (50 Ml)) 50 ml PO ONCE ONE Stop: 09/06/18 10:46 Ketorolac Tromethamine (Toradol) 30 mg IVP Q8 PRN PRN Reason: Pain, severe (8-10) Last Admin: 09/06/18 03:57 Dose: 30 mg Levothyroxine Sodium (Synthroid) 100 mcg PO 0630 [facility] Last Admin: 09/06/18 06:28 Dose: 100 mcg Magnesium Oxide (Mag-Ox) 400 mg PO BID [facility] Last Admin: 09/06/18 10:23 Dose: 400 mg Ondansetron HCl (Zofran Inj) 4 mg IVP Q8 PRN PRN Reason: Nausea/Vomiting Pantoprazole Sodium (Protonix Ec Tab) 40 mg PO DAILY [facility] Last Admin: 09/06/18 10:21 Dose: 40 mg Rivaroxaban (Xarelto) 20 mg PO DAILY [facility] Last Admin: 09/06/18 10:21 Dose: 20 mg Rosuvastatin Calcium (Crestor) 10 mg PO HS [facility] Last Admin: 09/05/18 21:51 Dose: 10 mg Saccharomyces Boulardii (Florastor) 250 mg PO Q12 [facility] Last Admin: 09/06/18 10:22 Dose: 250 mg Sitagliptin Phosphate (Januvia) 100 mg PO DAILY [facility] Last Admin: 09/06/18 10:21 Dose: 100 mg Sucralfate (Carafate Oral Susp) 1 gm PO ACBHS [facility] Last Admin: 09/06/18 08:45 Dose: 1 gm - Labs Labs: 09/06/18 07:20 09/06/18 07:20 PT 21.0 SECONDS (9.7-12.2) H 09/05/18 16:44 INR 1.9 09/05/18 16:44 APTT 28 SECONDS (21-34) 09/05/18 16:44
[2018-09-06] MEDS ORDERED: Iodixanol 320 MG/ML 100 ML BOTTLE IV ONE (10:52)
--- NOTE | 2018-09-06 10:55 | CP.PCM.PN ---
Subjective - Date & Time of Evaluation Date of Evaluation: 09/06/18 Time of Evaluation: 10:00 - Subjective Subjective: less sob very anxious no fever await c diff titer Objective - Vital Signs/Intake and Output Vital Signs (last 24 hours): Temp Pulse Resp BP Pulse Ox 98.4 F 133 H 18 138/78 94 L 09/06/18 08:00 09/06/18 09:10 09/06/18 08:00 09/06/18 10:22 09/06/18 08:00 - Medications Medications: Current Medications Albuterol/Ipratropium (Duoneb 3 Mg/0.5 Mg (3 Ml) Ud) 3 ml IH RQ4 PRN PRN Reason: Shortness of Breath Last Admin: 09/05/18 14:00 Dose: 3 ml Bupropion HCl (Wellbutrin) 75 mg PO DAILY [facility] Last Admin: 09/06/18 10:23 Dose: 75 mg Colchicine (Colocrys) 0.6 mg PO BID [facility] Last Admin: 09/06/18 10:25 Dose: 0.6 mg Cyclobenzaprine HCl (Flexeril) 5 mg PO TID [facility] Last Admin: 09/06/18 10:21 Dose: 5 mg Diazepam (Valium) 5 mg PO BID [facility] Last Admin: 09/06/18 10:21 Dose: 5 mg Dicyclomine HCl (Bentyl) 20 mg PO TID [facility] Last Admin: 09/06/18 10:24 Dose: 20 mg Diltiazem HCl (Cardizem Cd) 180 mg PO DAILY [facility] Ergocalciferol (Drisdol 50,000 Intl Units Cap) 1 cap PO Q7D [facility] Last Admin: 09/03/18 11:35 Dose: 1 cap Fluticasone/Vilanterol (Breo Ellipta 100-25 Mcg Inh) 1 puff INH RQ24 [facility] Last Admin: 09/06/18 07:40 Dose: 1 puff Furosemide (Lasix) 20 mg PO DAILY [facility] Last Admin: 09/06/18 10:22 Dose: 20 mg Gabapentin (Neurontin) 300 mg PO HS [facility] Last Admin: 09/05/18 21:52 Dose: 300 mg Glipizide (Glucotrol) 10 mg PO BID [facility] Last Admin: 09/06/18 10:22 Dose: 10 mg Hydrocortisone (Cortef) 20 mg PO TID [facility] Last Admin: 09/06/18 10:22 Dose: 20 mg Metronidazole (Flagyl) 500 mg in 100 mls @ 100 mls/hr IVPB Q8H [facility]; Protocol Last Admin: 09/06/18 10:23 Dose: 100 mls/hr Azithromycin 500 mg/ Sodium (Chloride) 250 mls @ 167 mls/hr IVPB Q24H [facility]; Protocol Last Admin: 09/04/18 01:00 Dose: 167 mls/hr Cefepime HCl (Maxipime Iv 1 Gm Premix) 1 gm in 50 mls @ 100 mls/hr IVPB Q12H [facility]; Protocol Last Admin: 09/06/18 10:23 Dose: 100 mls/hr Insulin Aspart (Novolog) 0 unit SC ACHS [facility]; Protocol Last Admin: 09/06/18 08:45 Dose: 2 unit Insulin Aspart (Novolog) 25 unit SC HS [facility] Last Admin: 09/05/18 21:53 Dose: 25 u Insulin Aspart (Novolog) [address] [facility] Last Admin: 09/06/18 08:45 Dose: 15 units Ketorolac Tromethamine (Toradol) 30 mg IVP Q8 PRN PRN Reason: Pain, severe (8-10) Last Admin: 09/06/18 03:57 Dose: 30 mg Levothyroxine Sodium (Synthroid) 100 mcg PO 0630 [facility] Last Admin: 09/06/18 06:28 Dose: 100 mcg Magnesium Oxide (Mag-Ox) 400 mg PO BID [facility] Last Admin: 09/06/18 10:23 Dose: 400 mg Ondansetron HCl (Zofran Inj) 4 mg IVP Q8 PRN PRN Reason: Nausea/Vomiting Pantoprazole Sodium (Protonix Ec Tab) 40 mg PO DAILY [facility] Last Admin: 09/06/18 10:21 Dose: 40 mg Rivaroxaban (Xarelto) 20 mg PO DAILY [facility] Last Admin: 09/06/18 10:21 Dose: 20 mg Rosuvastatin Calcium (Crestor) 10 mg PO HS [facility] Last Admin: 09/05/18 21:51 Dose: 10 mg Saccharomyces Boulardii (Florastor) 250 mg PO Q12 [facility] Last Admin: 09/06/18 10:22 Dose: 250 mg Sitagliptin Phosphate (Januvia) 100 mg PO DAILY [facility] Last Admin: 09/06/18 10:21 Dose: 100 mg Sucralfate (Carafate Oral Susp) 1 gm PO [facility] Last Admin: 09/06/18 08:45 Dose: 1 gm - Labs Labs: 09/06/18 07:20 09/06/18 07:20 PT 21.0 SECONDS (9.7-12.2) H 09/05/18 16:44 INR 1.9 09/05/18 16:44 APTT 28 SECONDS (21-34) 09/05/18 16:44 - Constitutional Appears: Non-toxic, Chronically Ill - Head Exam Head Exam: NORMOCEPHALIC - Eye Exam Eye Exam: absent: Scleral icterus - ENT Exam ENT Exam: Mucous Membranes Dry - Neck Exam Neck Exam: absent: Lymphadenopathy - Respiratory Exam Respiratory Exam: Decreased Breath Sounds, Rhonchi - Cardiovascular Exam Cardiovascular Exam: Tachycardia, REGULAR RHYTHM, +S1, +S2 - GI/Abdominal Exam GI & Abdominal Exam: Distended, Soft, Tenderness - Rectal Exam Rectal Exam: Deferred - Exam Exam: NORMAL INSPECTION - Extremities Exam Extremities Exam: Pedal Edema - Back Exam Back Exam: absent: CVA tenderness (L), CVA tenderness (R) - Neurological Exam Neurological Exam: Alert, Awake, CN II-XII Intact, Oriented x3 - Psychiatric Exam Psychiatric exam: Depressed - Skin Skin Exam: Dry Assessment and Plan (1) COPD (chronic obstructive pulmonary disease) Status: Acute (2) Closed fracture of right proximal tibia Status: Acute (3) Fever Status: Acute (4) Hyperglycemia Status: Acute (5) CHF (congestive heart failure) Status: Chronic (6) Diabetes mellitus Status: Chronic (7) HTN (hypertension) Status: Chronic (8) History of DVT (deep vein thrombosis) Status: Chronic (9) History of pulmonary embolus (PE) Status: Chronic (10) Hypothyroid Status: Chronic (11) SVT (supraventricular tachycardia) Status: Chronic (12) Sepsis Status: Suspected - Assessment and Plan (Free Text) Assessment: severe sepsis in an elderly female with end stage COPD and multiplke medical problems C Diff pending GI on board
[2018-09-06] MEDS ORDERED: Dextrose 50% SYRINGE Inj (50 ml) IV PRN (12:49)
[2018-09-06] MEDS ORDERED: Glucagon Recombinant 1 mg Inj IM PRN (12:49)
--- NOTE | 2018-09-06 12:54 | CP.PCM.PN ---
Subjective - Date & Time of Evaluation Date of Evaluation: 09/06/18 Time of Evaluation: 12:50 - Subjective Subjective: Progress note. Attending: Dr. Gutierres. Pt seen and examined at bedside. No acute distress. rapid response called overight. on bipap. Objective - Vital Signs/Intake and Output Vital Signs (last 24 hours): Temp Pulse Resp BP Pulse Ox 98.4 F 129 H 18 138/78 94 L 09/06/18 08:00 09/06/18 11:57 09/06/18 08:00 09/06/18 10:22 09/06/18 08:00 - Medications Medications: Current Medications Albuterol/Ipratropium (Duoneb 3 Mg/0.5 Mg (3 Ml) Ud) 3 ml IH RQ4 PRN PRN Reason: Shortness of Breath Last Admin: 09/05/18 14:00 Dose: 3 ml Bupropion HCl (Wellbutrin) 75 mg PO DAILY [facility] Last Admin: 09/06/18 10:23 Dose: 75 mg Colchicine (Colocrys) 0.6 mg PO BID [facility] Last Admin: 09/06/18 10:25 Dose: 0.6 mg Cyclobenzaprine HCl (Flexeril) 5 mg PO TID [facility] Last Admin: 09/06/18 10:21 Dose: 5 mg Dextrose (Dextrose 50% Inj) 0 ml IV STAT PRN; Protocol PRN Reason: Hypoglycemia Protocol Dextrose (Glutose 15) 0 gm PO ONCE PRN; Protocol PRN Reason: Hypoglycemia Protocol Diazepam (Valium) 5 mg PO BID [facility] Last Admin: 09/06/18 10:21 Dose: 5 mg Dicyclomine HCl (Bentyl) 20 mg PO TID [facility] Last Admin: 09/06/18 10:24 Dose: 20 mg Diltiazem HCl (Cardizem Cd) 180 mg PO DAILY [facility] Ergocalciferol (Drisdol 50,000 Intl Units Cap) 1 cap PO Q7D [facility] Last Admin: 09/03/18 11:35 Dose: 1 cap Fluticasone/Vilanterol (Breo Ellipta 100-25 Mcg Inh) 1 puff INH RQ24 [facility] Last Admin: 09/06/18 07:40 Dose: 1 puff Furosemide (Lasix) 20 mg PO DAILY [facility] Last Admin: 09/06/18 10:22 Dose: 20 mg Gabapentin (Neurontin) 300 mg PO HS [facility] Last Admin: 09/05/18 21:52 Dose: 300 mg Glipizide (Glucotrol) 10 mg PO BID [facility] Last Admin: 09/06/18 10:22 Dose: 10 mg Glucagon (Glucagen Diagnostic Kit) 0 mg IM STAT PRN; Protocol PRN Reason: Hypoglycemia Protocol Hydrocortisone (Cortef) 20 mg PO TID [facility] Last Admin: 09/06/18 10:22 Dose: 20 mg Metronidazole (Flagyl) 500 mg in 100 mls @ 100 mls/hr IVPB Q8H [facility]; Protocol Last Admin: 09/06/18 10:23 Dose: 100 mls/hr Azithromycin 500 mg/ Sodium (Chloride) 250 mls @ 167 mls/hr IVPB Q24H [facility]; Protocol Last Admin: 09/04/18 01:00 Dose: 167 mls/hr Cefepime HCl (Maxipime Iv 1 Gm Premix) 1 gm in 50 mls @ 100 mls/hr IVPB Q12H [facility]; Protocol Last Admin: 09/06/18 10:23 Dose: 100 mls/hr Dextrose (Dextrose 5% In Water 1000 Ml) 1,000 mls @ 0 mls/hr IV .Q0M PRN; Protocol PRN Reason: Hypoglycemia Protocol Insulin Aspart (Novolog) [address] [facility]; Protocol Last Admin: 09/06/18 08:45 Dose: Not Given Insulin Aspart (Novolog) 15 unit SC [facility] Last Admin: 09/06/18 08:45 Dose: Not Given Ketorolac Tromethamine (Toradol) 30 mg IVP Q8 PRN PRN Reason: Pain, severe (8-10) Last Admin: 09/06/18 03:57 Dose: 30 mg Levothyroxine Sodium (Synthroid) 100 mcg PO 0630 [facility] Last Admin: 09/06/18 06:28 Dose: 100 mcg Magnesium Oxide (Mag-Ox) 400 mg PO BID [facility] Last Admin: 09/06/18 10:23 Dose: 400 mg Ondansetron HCl (Zofran Inj) 4 mg IVP Q8 PRN PRN Reason: Nausea/Vomiting Pantoprazole Sodium (Protonix Ec Tab) 40 mg PO DAILY [facility] Last Admin: 09/06/18 10:21 Dose: 40 mg Rivaroxaban (Xarelto) 20 mg PO DAILY [facility] Last Admin: 09/06/18 10:21 Dose: 20 mg Rosuvastatin Calcium (Crestor) 10 mg PO HS [facility] Last Admin: 09/05/18 21:51 Dose: 10 mg Saccharomyces Boulardii (Florastor) 250 mg PO Q12 [facility] Last Admin: 09/06/18 10:22 Dose: 250 mg Sitagliptin Phosphate (Januvia) 100 mg PO DAILY [facility] Last Admin: 09/06/18 10:21 Dose: 100 mg Sucralfate (Carafate Oral Susp) 1 gm PO ACBHS [facility] Last Admin: 09/06/18 08:45 Dose: 1 gm - Labs Labs: 09/06/18 07:20 09/06/18 07:20 PT 21.0 SECONDS (9.7-12.2) H 09/05/18 16:44 INR 1.9 09/05/18 16:44 APTT 28 SECONDS (21-34) 09/05/18 16:44 - Constitutional Appears: Chronically Ill - Head Exam Head Exam: ATRAUMATIC, NORMAL INSPECTION, NORMOCEPHALIC - Eye Exam Eye Exam: EOMI - Neck Exam Neck Exam: Full ROM. absent: Meningismus - Respiratory Exam Respiratory Exam: Decreased Breath Sounds - Cardiovascular Exam Cardiovascular Exam: Tachycardia, +S1, +S2 - GI/Abdominal Exam GI & Abdominal Exam: Soft, Normal Bowel Sounds. absent: Tenderness - Extremities Exam Extremities Exam: Full ROM, Pedal Edema. absent: Normal Inspection - Neurological Exam Neurological Exam: Alert, Awake, CN II-XII Intact - Psychiatric Exam Psychiatric exam: Flat Affect - Skin Skin Exam: Dry, Intact, Normal Color, Warm Assessment and Plan - Assessment and Plan (Free Text) Assessment: This is a 63 yo female with Fever - resolved -no other fevers since admission - Lactate at admission 1.6; repeat 0.9 on 09/02/18 ID Consult: Dr. Little --> help appreciated GI Consult: Dr. Laurent --> help appreciated - CXR: negative for acute pathology - f/u abdominal US - patient currently refusing - Blood cx: coagulase neg staph - probably contaminated - Urinalysis: negative for infection - Urine cx: negative - C.Diff: f/u - Ova/parasites: negative - Stool Culture: negative - Stool leukocytes: negative; stool occult negative - Medications: * Azithromycin 500mg IV Q24 (active since 09/02/18) * Rocephin 2gm IV Q24h (active since 09/02/18) * Flagyl 500mg IV 18h (active since 09/02/18) * Florastor 250mg PO BID [facility] - At admission, BUN 44, Cr 3.2 - Nephrology consulted, Dr. Menendez; help appreciated - Avoid nephrotoxic agents - IV fluids, NS@100 - Possibly due to hypotension, sepsis, or renal hypoperfusion - Renal US: Echogenic renal parenchyma the right kidney. Bilateral cortical thinning. Correlate clinically for medical renal disease. CHF with preserved ejection fraction - Stable - Last echo 2017 showed Grade III reversible restrictive diastolic dysfunction, EF 55% - (HELD due to KARMA) Lasix 20 mg PO daily Hypertension - Continue to monitor - Home medications: * Lisinopril 10mg PO daily (HELD due to K[facility]MA) * Lopressor 50mg PO BID (HELD due to hypotension) * Cardizem 120mg PO daily (HOLD if SBP<100, DBP<60, HR<60) Diabetes Mellitus - Accuchecks - Hypoglycemia protocol - HgA1c 9.3 (01/2018) - Insulin sliding scale - Januvia 25mg PO daily (decreased due to KARMA) - Glipizide 10mg PO [id number] Gabapentin 300mg PO TID - Novolog 15 units with meals -endocrinology consult. Dr Cam. chu appreciated. Fibromyalgia - Home medication: Diazepam 5mg PO PRN (HELD due to hypotension) - Flexeril 5 mg PO TID (Holding parameters- hold if sleeping/sedated, hypotension) - Percocet 5/325mg 1 tab Q6H -stop ketorolac Adrenal insufficiency -will need to look into reason - Hydrocortisone 20 mg PO TID Hypothyroidism - Continue Synthroid 100 mcg PO daily History of DVT/PE - Continue Xarelto 20 mg PO daily Gout - Continue Colchicine Depression - Wellbutrin 75 mg daily -will consult psychiatry Dr. Yoon. kimberley appreciated. COPD - Continue home medication: Breo daily inhaler - Duonebs Q4h prn Prophylactic Measures - Protonix 40mg PO daily, Probiotics - Xarelto 20mg PO daily - PT/OT - Case management consult discussed with Dr. Gutierres.
[2018-09-06] MEDS ORDERED: diltiaZEM 180 mg/24 Hours CD Cap PO SCH (16:00)
--- NOTE | 2018-09-06 16:33 | CT ---
PROCEDURE: CT Abdomen and Pelvis with oral and IV contrast. HISTORY: ABNORMAL CANCER MARKERS COMPARISON: CT abdomen and pelvis without IV contrast performed 11/20/15, renal ultrasound performed 09/02/18 TECHNIQUE: Contiguous axial images of the abdomen and pelvis. Oral and IV contrast was administered. Coronal and Sagittal reformats generated and reviewed. Contrast dose: 100 mL Visipaque 320 IV Radiation dose: Total exam DLP = 1194.61 mGy-cm. This CT exam was performed using one or more of the following dose reduction techniques: Automated exposure control, adjustment of the mA and/or kV according to patient size, and/or use of iterative reconstruction technique. FINDINGS: Examination limited by streak artifact/motion. LOWER THORAX: Right greater than left basilar atelectasis. No visible pleural effusion or pneumothorax. LIVER: Hypoattenuation of the liver compatible with hepatic steatosis. GALLBLADDER AND BILE DUCTS: Cholecystectomy. PANCREAS: Pancreatic atrophy with marked pancreatic ductal dilatation and ectasia. 2.7 x 2.5 cm heterogeneous hyperdense mass at the pancreatic body/tail (series 3, image 70). Heterogeneous cystic focus measuring approximately 15 x 14 mm noted at the superior aspect of the pancreas (image 64 on both series 3 and 601). SPLEEN: Unremarkable. ADRENALS: Unremarkable. KIDNEYS AND URETERS: The kidneys enhance symmetrically. No hydronephrosis or obstructing renal calculus. BLADDER: The urinary bladder appears unremarkable. REPRODUCTIVE: Uterus is absent consistent with hysterectomy. APPENDIX: The appendix appears within normal limits of caliber. No secondary signs of acute appendicitis. BOWEL: The stomach is nondistended. No evidence of bowel obstruction. Irregular wall thickening involving the 2nd portion of the duodenum of uncertain significance. PERITONEUM: Small pelvic free fluid. No definite free air. LYMPH NODES: No bulky lymphadenopathy identified. VASCULATURE: IVC filter. No aortic aneurysm. Dense atherosclerotic calcifications of the aorta and branches. BONES: Partially imaged intramedullary val and screw fixation of the right femur. Degenerative changes of the spine. OTHER FINDINGS: None. IMPRESSION: Heterogeneous hyperdense pancreatic mass measuring approximately 2.7 x 2.5 cm at the pancreatic body/tail. Ectatic dilated pancreatic duct. Additional cystic heterogeneous focus measuring approximately 15 x 14 mm is noted at the superior aspect of the pancreas. Appearance worrisome for malignant neoplasm. Wall thickening involving the 2nd portion of the duodenum of uncertain significance; considerations include infectious, inflammatory, or malignant etiologies. Correlate clinically and recommend further evaluation with direct visualization if indicated. Small pelvic free fluid. Additional findings as above.
--- NOTE | 2018-09-06 17:54 | CARD ---
APPROVED REPORT Date of service: 09/05/2018 EKG Measurement Heart [id number] VT [id number] [id number] <Conclusion> Sinus tachycardia with premature atrial complexes Otherwise normal ECG
--- NOTE | 2018-09-06 19:34 | CP.PCM.PN ---
Subjective - Date & Time of Evaluation Date of Evaluation: 09/06/18 Time of Evaluation: 19:30 - Subjective Subjective: patient denies chest pain. now C diff positive Objective - Vital Signs/Intake and Output Vital Signs (last 24 hours): Temp Pulse Resp BP Pulse Ox 97.8 F 130 H 20 117/87 99 09/06/18 16:00 09/06/18 16:06 09/06/18 16:00 09/06/18 16:00 09/06/18 16:00 Intake and Output: 09/06/18 09/07/18 18:59 06:59 Intake Total 750 Output Total 700 Balance 50 - Medications Medications: Current Medications Albuterol/Ipratropium (Duoneb 3 Mg/0.5 Mg (3 Ml) Ud) 3 ml IH RQ4 PRN PRN Reason: Shortness of Breath Last Admin: 09/05/18 14:00 Dose: 3 ml Bupropion HCl (Wellbutrin) 75 mg PO DAILY [facility] Last Admin: 09/06/18 10:23 Dose: 75 mg Colchicine (Colocrys) 0.6 mg PO BID [facility] Last Admin: 09/06/18 18:03 Dose: 0.6 mg Cyclobenzaprine HCl (Flexeril) 5 mg PO TID [facility] Last Admin: 09/06/18 18:03 Dose: 5 mg Dextrose (Dextrose 50% Inj) 0 ml IV STAT PRN; Protocol PRN Reason: Hypoglycemia Protocol Dextrose (Glutose 15) 0 gm PO ONCE PRN; Protocol PRN Reason: Hypoglycemia Protocol Diazepam (Valium) 5 mg PO BID [facility] Last Admin: 09/06/18 18:02 Dose: 5 mg Dicyclomine HCl (Bentyl) 20 mg PO TID [facility] Last Admin: 09/06/18 18:03 Dose: 20 mg Diltiazem HCl (Cardizem Cd) 180 mg PO DAILY [facility] Last Admin: 09/06/18 18:02 Dose: 180 mg Ergocalciferol (Drisdol 50,000 Intl Units Cap) 1 cap PO Q7D [facility] Last Admin: 09/03/18 11:35 Dose: 1 cap Fluticasone/Vilanterol (Breo Ellipta 100-25 Mcg Inh) 1 puff INH RQ24 [facility] Last Admin: 09/06/18 07:40 Dose: 1 puff Furosemide (Lasix) 20 mg PO DAILY [facility] Last Admin: 09/06/18 10:22 Dose: 20 mg Gabapentin (Neurontin) 300 mg PO HS [facility] Last Admin: 09/05/18 21:52 Dose: 300 mg Glipizide (Glucotrol) 10 mg PO BID [facility] Last Admin: 09/06/18 18:02 Dose: 10 mg Glucagon (Glucagen Diagnostic Kit) 0 mg IM STAT PRN; Protocol PRN Reason: Hypoglycemia Protocol Hydrocortisone (Cortef) 20 mg PO TID [facility] Last Admin: 09/06/18 18:03 Dose: 20 mg Metronidazole (Flagyl) 500 mg in 100 mls @ 100 mls/hr IVPB Q8H [facility]; Protocol Last Admin: 09/06/18 10:23 Dose: 100 mls/hr Azithromycin 500 mg/ Sodium (Chloride) 250 mls @ 167 mls/hr IVPB Q24H [facility]; Protocol Last Admin: 09/04/18 01:00 Dose: 167 mls/hr Cefepime HCl (Maxipime Iv 1 Gm Premix) 1 gm in 50 mls @ 100 mls/hr IVPB Q12H [facility]; Protocol Last Admin: 09/06/18 10:23 Dose: 100 mls/hr Dextrose (Dextrose 5% In Water 1000 Ml) 1,000 mls @ 0 mls/hr IV .Q0M PRN; Protocol PRN Reason: Hypoglycemia Protocol Insulin Aspart (Novolog) 14 unit SC AC [facility] Last Admin: 09/06/18 18:05 Dose: 14 u Insulin Aspart (Novolog) 0 unit SC ACHS [facility] Last Admin: 09/06/18 18:05 Dose: 2 u Insulin Glargine (Lantus) 20 unit SC [facility] Levothyroxine Sodium (Synthroid) 100 mcg PO 0630 [facility] Last Admin: 09/06/18 06:28 Dose: 100 mcg Magnesium Oxide (Mag-Ox) 400 mg PO BID [facility] Last Admin: 09/06/18 18:02 Dose: 400 mg Ondansetron HCl (Zofran Inj) 4 mg IVP Q8 PRN PRN Reason: Nausea/Vomiting Oxycodone/Acetaminophen (Percocet 5/325 Mg Tab) 1 tab PO Q6H PRN PRN Reason: Pain, severe (8-10) Stop: 09/09/18 13:17 Pantoprazole Sodium (Protonix Ec Tab) 40 mg PO DAILY [facility] Last Admin: 09/06/18 10:21 Dose: 40 mg Rivaroxaban (Xarelto) 20 mg PO DAILY [facility] Last Admin: 09/06/18 10:21 Dose: 20 mg Rosuvastatin Calcium (Crestor) 10 mg PO HS [facility] Last Admin: 09/05/18 21:51 Dose: 10 mg Saccharomyces Boulardii (Florastor) 250 mg PO Q12 [facility] Last Admin: 09/06/18 10:22 Dose: 250 mg Sitagliptin Phosphate (Januvia) 100 mg PO DAILY [facility] Last Admin: 09/06/18 10:21 Dose: 100 mg Sucralfate (Carafate Oral Susp) 1 gm PO ACBHS [facility] Last Admin: 09/06/18 08:45 Dose: 1 gm - Labs Labs: 09/06/18 07:20 09/06/18 07:20 PT 21.0 SECONDS (9.7-12.2) H 09/05/18 16:44 INR 1.9 09/05/18 16:44 APTT 28 SECONDS (21-34) 09/05/18 16:44 - Constitutional Appears: Non-toxic - Head Exam Head Exam: NORMAL INSPECTION - Eye Exam Eye Exam: Normal appearance - ENT Exam ENT Exam: Mucous Membranes Moist - Neck Exam Neck Exam: Full ROM - Respiratory Exam Respiratory Exam: Decreased Breath Sounds - Cardiovascular Exam Cardiovascular Exam: Tachycardia - Rectal Exam Rectal Exam: absent: Deferred - Extremities Exam Extremities Exam: absent: Pedal Edema - Back Exam Back Exam: NORMAL INSPECTION - Neurological Exam Neurological Exam: Alert - Psychiatric Exam Psychiatric exam: Normal Affect - Skin Skin Exam: Normal Color Assessment and Plan (1) Tachycardia Assessment & Plan: may be due to underlying infection. recommend increase cardizem. treatment for C diff Status: Acute (2) HTN (hypertension) Assessment & Plan: blood pressure control. Status: Chronic
[2018-09-06] MEDS ORDERED: (Lantus) Insulin Glargine, Recombinant SC SCH (22:00)
[2018-09-06] MEDS ORDERED: diltiaZEM 180 mg/24 Hours CD Cap PO ONE (22:00)
--- NOTE | 2018-09-06 23:52 | CON ---
DATE: 09/06/2018 ENDOCRINOLOGY CONSULTATION LOCATION: Room 556. HISTORY OF PRESENT ILLNESS: This is a 63-year-old female with known history of type 2 insulin-requiring diabetes, presenting here with fever and bacteremia and persistent tachycardia, is now being referred for diabetic evaluation because of supervening hyperglycemic accelerations with the initiation of steroid therapy as given. PAST MEDICAL HISTORY: History of type 2 insulin-requiring diabetes, on a combination of Humalog given as 20 units at bedtime and 30 units every morning which is actually a bizarre dosing regimen with glipizide given as 10 mg b.i.d. and Januvia at 100 mg once daily. History of hypothyroidism, on Synthroid taken as 100 mcg daily. History of hypertension and dyslipidemia. History of chronic obstructive lung disease and recent exacerbations of the same. History of generalized anxiety and depression, on psychotropic medications. History of deep vein thrombosis and pulmonary embolism and is currently on anticoagulation therapy as given with Coumadin medications and the previous IVC filter insertion. History of rheumatoid arthritis and osteoarthritis with a recent fall and fracture, has sustained the right hip fracture and underwent a right hip open reduction and internal fixation followed by total hip replacement a few weeks ago. FAMILY HISTORY: Positive for hypertension and diabetes. SOCIAL HISTORY: The patient has a supportive family. No known substance use. REVIEW OF SYSTEMS: As mentioned above. Admits to generalized body weakness with episodic bouts of dizziness and lightheadedness, worse on the day of admission. No chest pains or palpitations but admits to progressive shortness of breath initially on exertion and then at rest. Her oral intake has been variable with nausea, dyspepsia, and vague upper abdominal pain. Also admits to marked polyuria, nocturia, and polydipsia. PHYSICAL EXAMINATION: GENERAL: Average-built female in no apparent distress. VITAL SIGNS: With a blood pressure of 150/90, pulse of 100 beats per minute and regular, temperature 98, respirations 20. Height is 5 feet. Weight is 180 pounds. HEENT: Head normocephalic. Eyes anicteric with pink conjunctivae. Funduscopy is not possible at this time. Ears, nose, and throat otherwise normal. NECK: Supple. Thyroid gland is normal sized. No carotid bruits or any cervical adenopathy. CARDIOPULMONARY EXAM: Adynamic precordium. S1 and S2, rapid and regular. LUNGS: Scattered rhonchi. ABDOMEN: Flat, soft with positive bowel sounds. EXTREMITIES: No peripheral edema. Pulses are +2 bilaterally. LABORATORY DATA: Chemistries showed a BUN of 20, sodium 138, potassium 3.5, chloride 112, CO2 of 19, glucose 187, and creatinine 1.2. Her glucose levels have ranged from 244 to 304 mg/dL. Her CA 19-9 is 1980. ASSESSMENT: This is a 63-year-old female with uncontrolled and decompensated type 2 insulin-requiring diabetes with unusual and strange insulin regimen prior to this admission, presenting here with acute exacerbation of chronic obstructive pulmonary disease with concomitant bacteremia and being followed closely by multiple consultants and is also being referred for diabetic evaluation and management. PLAN OF MANAGEMENT: The patient is currently on a Humalog dosing given four times a day which is again unusual since we do not really give Humalog at bedtime to prevent pharmacy retail support specialist hypoglycemia and is not on any type of basal insulin as should be ordered to cover the overnight hyperglycemic accelerations from increased hepatic gluconeogenesis. We will modify her current insulin regimen to a more physiologic basal and bolus insulin drug combination and detailed orders have been given. We will start her with Humalog given as 14 units only t.i.d. before meals as ordered. We will modify the coverage scale to obviate hypoglycemia with a very low-dose coverage using Humalog insulin as given. We will also add basal insulin with Lantus given as 20 units subcu at bedtime daily to start tonight. We will obtain serial chemistries and supplement accordingly as needed. We will follow. Neeru Dickson MD
[2018-09-07] MEDS: metroNIDAZOLE IV 500 mg/100 ml 500 MG/100 ML BAG IVPB SCH ×3 (02:44→18:40)
[2018-09-07] MEDS: Vancomycin Hydrochloride 250 mg Capsule (Oral) PO SCH ×5 (02:52→22:28)
[2018-09-07] MEDS: Levothyroxine 100 MCG TAB PO SCH (06:46)
[2018-09-07] MEDS: Sucralfate 1 gm/10 ml Oral Susp UD PO SCH ×2 (06:47→22:25)
--- NOTE | 2018-09-07 07:06 | CP.PCM.PN ---
Subjective - Date & Time of Evaluation Date of Evaluation: 09/07/18 Time of Evaluation: 06:40 - Subjective Subjective: Dariel Slaughter D.O. PGY-3, Internal Medicine Resident, Endocrinology Progress Note 63 year old female with a PMH of COPD, type 2 IDDM, anxiety, depression, DVT, PE, OA who presented with fever. Endocrinology consultation requested for hyperglycemic accelerations. Patient was seen and examined at bedside. On BIPAP on isolation room for C Diff. Found resting comfortably, states breathing improved somewhat. Objective - Vital Signs/Intake and Output Vital Signs (last 24 hours): Temp Pulse Resp BP Pulse Ox 98.9 F 107 H 22 143/82 99 09/06/18 23:33 09/07/18 05:10 09/06/18 23:33 09/06/18 23:33 09/06/18 23:33 Intake and Output: 09/07/18 09/07/18 06:59 18:59 Output Total 300 Balance -300 - Medications Medications: Current Medications Albuterol/Ipratropium (Duoneb 3 Mg/0.5 Mg (3 Ml) Ud) 3 ml IH RQ4 PRN PRN Reason: Shortness of Breath Last Admin: 09/05/18 14:00 Dose: 3 ml Bupropion HCl (Wellbutrin) 75 mg PO DAILY [facility] Last Admin: 09/06/18 10:23 Dose: 75 mg Colchicine (Colocrys) 0.6 mg PO BID [facility] Last Admin: 09/06/18 18:03 Dose: 0.6 mg Cyclobenzaprine HCl (Flexeril) 5 mg PO TID [facility] Last Admin: 09/06/18 18:03 Dose: 5 mg Dextrose (Dextrose 50% Inj) 0 ml IV STAT PRN; Protocol PRN Reason: Hypoglycemia Protocol Dextrose (Glutose 15) 0 gm PO ONCE PRN; Protocol PRN Reason: Hypoglycemia Protocol Diazepam (Valium) 5 mg PO BID [facility] Last Admin: 09/06/18 18:02 Dose: 5 mg Dicyclomine HCl (Bentyl) 20 mg PO TID [facility] Last Admin: 09/06/18 18:03 Dose: 20 mg Diltiazem HCl (Cardizem Cd) 180 mg PO BID [facility] Ergocalciferol (Drisdol 50,000 Intl Units Cap) 1 cap PO Q7D [facility] Last Admin: 09/03/18 11:35 Dose: 1 cap Fluticasone/Vilanterol (Breo Ellipta 100-25 Mcg Inh) 1 puff INH RQ24 [facility] Last Admin: 09/06/18 07:40 Dose: 1 puff Furosemide (Lasix) 20 mg PO DAILY [facility] Last Admin: 09/06/18 10:22 Dose: 20 mg Gabapentin (Neurontin) 300 mg PO [facility] Last Admin: 09/06/18 21:54 Dose: 300 mg Glipizide (Glucotrol) 10 mg PO BID [facility] Last Admin: 09/06/18 18:02 Dose: 10 mg Glucagon (Glucagen Diagnostic Kit) 0 mg IM STAT PRN; Protocol PRN Reason: Hypoglycemia Protocol Hydrocortisone (Cortef) 20 mg PO TID [facility] Last Admin: 09/06/18 18:03 Dose: 20 mg Metronidazole (Flagyl) 500 mg in 100 mls @ 100 mls/hr IVPB Q8H [facility]; Protocol Last Admin: 09/07/18 02:44 Dose: 100 mls/hr Azithromycin 500 mg/ Sodium (Chloride) 250 mls @ 167 mls/hr IVPB Q24H [facility]; Protocol Last Admin: 09/04/18 01:00 Dose: 167 mls/hr Dextrose (Dextrose 5% In Water 1000 Ml) 1,000 mls @ 0 mls/hr IV .Q0M PRN; Protocol PRN Reason: Hypoglycemia Protocol Insulin Aspart (Novolog) 14 unit SC AC [facility] Last Admin: 09/06/18 18:05 Dose: 14 u Insulin Aspart (Novolog) 0 unit SC ACHS [facility] Last Admin: 09/06/18 21:57 Dose: 366 u Insulin Glargine (Lantus) 20 unit SC [facility] Last Admin: 09/06/18 21:56 Dose: 20 unit Levothyroxine Sodium (Synthroid) 100 mcg PO 0630 [facility] Last Admin: 09/07/18 06:46 Dose: 100 mcg Magnesium Oxide (Mag-Ox) 400 mg PO BID [facility] Last Admin: 09/06/18 18:02 Dose: 400 mg Ondansetron HCl (Zofran Inj) 4 mg IVP Q8 PRN PRN Reason: Nausea/Vomiting Oxycodone/Acetaminophen (Percocet 5/325 Mg Tab) 1 tab PO Q6H PRN PRN Reason: Pain, severe (8-10) Stop: 09/09/18 13:17 Pantoprazole Sodium (Protonix Ec Tab) 40 mg PO DAILY [facility] Last Admin: 09/06/18 10:21 Dose: 40 mg Rivaroxaban (Xarelto) 20 mg PO DAILY [facility] Last Admin: 09/06/18 10:21 Dose: 20 mg Rosuvastatin Calcium (Crestor) 10 mg PO HS [facility] Last Admin: 09/06/18 21:54 Dose: 10 mg Saccharomyces Boulardii (Florastor) 250 mg PO Q12 [facility] Last Admin: 09/06/18 21:54 Dose: 250 mg Sitagliptin Phosphate (Januvia) 100 mg PO DAILY [facility] Last Admin: 09/06/18 10:21 Dose: 100 mg Sucralfate (Carafate Oral Susp) 1 gm PO ACBHS [facility] Last Admin: 09/07/18 06:47 Dose: 1 gm Vancomycin HCl (Vancocin 250mg Capsule) 250 mg PO QID [facility] Last Admin: 09/07/18 02:52 Dose: 250 mg - Labs Labs: 09/06/18 07:20 09/06/18 07:20 PT 21.0 SECONDS (9.7-12.2) H 09/05/18 16:44 INR 1.9 09/05/18 16:44 APTT 28 SECONDS (21-34) 09/05/18 16:44 - Constitutional Appears: No Acute Distress - Head Exam Head Exam: ATRAUMATIC, NORMOCEPHALIC Additional comments: BIPAP on - Eye Exam Eye Exam: EOMI. absent: Scleral icterus - ENT Exam Additional comments: BIPAP mask on - Neck Exam Neck Exam: Normal Inspection - Respiratory Exam Respiratory Exam: Wheezes - Cardiovascular Exam Cardiovascular Exam: +S1, +S2 - Neurological Exam Neurological Exam: Alert, Awake - Skin Skin Exam: Dry, Warm Assessment and Plan - Assessment and Plan (Free Text) Assessment: 63 year old female with a PMH of COPD, type 2 IDDM, anxiety, depression, DVT, PE, OA who presented with fever. Endocrinology consultation requested for hyperg lycemic accelerations. Plan: 1. Uncontrolled type 2 IDDM in the setting of acute illness Receiving steroids likely worsening insulin resistance BG last 24 hrs [id number] Continue januvia 100mg PO QD Continue lantus 20 units SC HS Continue aspart 14 units SC AC Continue glipizide 10mg PO ACBD HgbA1c pending for today Continue accuchecks Continue carb consistent diet Will follow 2. Hypothyroidism Repeat TSH and T4 pending Continue with levothyroxine 100mcg PO QD Patient was seen and examined and case to be discussed with attending physician.
[2018-09-07] MEDS: Fluticasone-Vilanterol 100/25mcg Diskus INH SCH (07:35)
[2018-09-07] MEDS: (Novolog) Insulin Aspart, Recombinant 100 u/ml 10 ml vial SC SCH ×7 (07:40→21:30)
--- NOTE | 2018-09-07 09:29 | CP.PCM.PN ---
Subjective - Date & Time of Evaluation Date of Evaluation: 09/07/18 Time of Evaluation: 09:25 - Subjective Subjective: Progress note for Dr. Gutierres Patient was seen and examined at bedside in no acute distress. Bipap on. Patient complains of right leg pain and left-sided abdominal pain, otherwise no additional complaints. Patient denies chest pain, palpitations, dyspnea, nausea, vomiting, fevers, headaches. Objective - Vital Signs/Intake and Output Vital Signs (last 24 hours): Temp Pulse Resp BP Pulse Ox 99.2 F 105 H 20 170/84 H 97 09/07/18 08:00 09/07/18 09:15 09/07/18 08:00 09/07/18 08:00 09/07/18 08:00 Intake and Output: 09/07/18 09/07/18 06:59 18:59 Output Total 300 Balance -300 - Medications Medications: Current Medications Albuterol/Ipratropium (Duoneb 3 Mg/0.5 Mg (3 Ml) Ud) 3 ml IH RQ4 PRN PRN Reason: Shortness of Breath Last Admin: 09/05/18 14:00 Dose: 3 ml Bupropion HCl (Wellbutrin) 75 mg PO DAILY [facility] Last Admin: 09/06/18 10:23 Dose: 75 mg Colchicine (Colocrys) 0.6 mg PO BID [facility] Last Admin: 09/06/18 18:03 Dose: 0.6 mg Cyclobenzaprine HCl (Flexeril) 5 mg PO TID [facility] Last Admin: 09/06/18 18:03 Dose: 5 mg Dextrose (Dextrose 50% Inj) 0 ml IV STAT PRN; Protocol PRN Reason: Hypoglycemia Protocol Dextrose (Glutose 15) 0 gm PO ONCE PRN; Protocol PRN Reason: Hypoglycemia Protocol Diazepam (Valium) 5 mg PO BID [facility] Last Admin: 09/06/18 18:02 Dose: 5 mg Dicyclomine HCl (Bentyl) 20 mg PO TID [facility] Last Admin: 09/06/18 18:03 Dose: 20 mg Diltiazem HCl (Cardizem Cd) 180 mg PO BID [facility] Ergocalciferol (Drisdol 50,000 Intl Units Cap) 1 cap PO Q7D [facility] Last Admin: 09/03/18 11:35 Dose: 1 cap Fluticasone/Vilanterol (Breo Ellipta 100-25 Mcg Inh) 1 puff INH RQ24 [facility] Last Admin: 09/07/18 07:35 Dose: 1 puff Furosemide (Lasix) 20 mg PO DAILY [facility] Last Admin: 09/06/18 10:22 Dose: 20 mg Gabapentin (Neurontin) 300 mg PO HS [facility] Last Admin: 09/06/18 21:54 Dose: 300 mg Glipizide (Glucotrol) 10 mg PO BID [facility] Last Admin: 09/06/18 18:02 Dose: 10 mg Glucagon (Glucagen Diagnostic Kit) 0 mg IM STAT PRN; Protocol PRN Reason: Hypoglycemia Protocol Hydrocortisone (Cortef) 20 mg PO TID [facility] Last Admin: 09/06/18 18:03 Dose: 20 mg Metronidazole (Flagyl) 500 mg in 100 mls @ 100 mls/hr IVPB Q8H [facility]; Protocol Last Admin: 09/07/18 02:44 Dose: 100 mls/hr Azithromycin 500 mg/ Sodium (Chloride) 250 mls @ 167 mls/hr IVPB Q24H [facility]; Protocol Last Admin: 09/04/18 01:00 Dose: 167 mls/hr Dextrose (Dextrose 5% In Water 1000 Ml) 1,000 mls @ 0 mls/hr IV .Q0M PRN; Protocol PRN Reason: Hypoglycemia Protocol Insulin Aspart (Novolog) 14 unit SC AC [facility] Last Admin: 09/06/18 18:05 Dose: 14 u Insulin Aspart (Novolog) 0 unit SC ACHS [facility] Last Admin: 09/07/18 07:40 Dose: Not Given Insulin Glargine (Lantus) [address] [facility] Last Admin: 09/06/18 21:56 Dose: 20 unit Levothyroxine Sodium (Synthroid) 100 mcg PO 0630 [facility] Last Admin: 09/07/18 06:46 Dose: 100 mcg Magnesium Oxide (Mag-Ox) 400 mg PO BID [facility] Last Admin: 09/06/18 18:02 Dose: 400 mg Ondansetron HCl (Zofran Inj) 4 mg IVP Q8 PRN PRN Reason: Nausea/Vomiting Oxycodone/Acetaminophen (Percocet 5/325 Mg Tab) 1 tab PO Q6H PRN PRN Reason: Pain, severe (8-10) Stop: 09/09/18 13:17 Pantoprazole Sodium (Protonix Ec Tab) 40 mg PO DAILY [facility] Last Admin: 09/06/18 10:21 Dose: 40 mg Rivaroxaban (Xarelto) 20 mg PO DAILY [facility] Last Admin: 09/06/18 10:21 Dose: 20 mg Rosuvastatin Calcium (Crestor) 10 mg PO HS [facility] Last Admin: 09/06/18 21:54 Dose: 10 mg Saccharomyces Boulardii (Florastor) 250 mg PO Q12 [facility] Last Admin: 09/06/18 21:54 Dose: 250 mg Sitagliptin Phosphate (Januvia) 100 mg PO DAILY [facility] Last Admin: 09/06/18 10:21 Dose: 100 mg Sucralfate (Carafate Oral Susp) 1 gm PO ACBHS [facility] Last Admin: 09/07/18 06:47 Dose: 1 gm Vancomycin HCl (Vancocin 250mg Capsule) 250 mg PO QID [facility] Last Admin: 09/07/18 02:52 Dose: 250 mg - Labs Labs: 09/06/18 07:20 09/06/18 07:20 PT 21.0 SECONDS (9.7-12.2) H 09/05/18 16:44 INR 1.9 09/05/18 16:44 APTT 28 SECONDS (21-34) 09/05/18 16:44 - Additional Findings Additional findings: - Constitutional Appears: No Acute Distress, Chronically Ill - Head Exam Head Exam: NORMAL INSPECTION - Eye Exam Eye Exam: EOMI, Normal appearance - ENT Exam ENT Exam: Mucous Membranes Moist - Respiratory Exam Respiratory Exam: NORMAL BREATHING PATTERN. absent: Rales, Rhonchi, Wheezes, Respiratory Distress - Cardiovascular Exam Cardiovascular Exam: REGULAR RHYTHM, +S1, +S2 - GI/Abdominal Exam GI & Abdominal Exam: Soft, Normal Bowel Sounds. absent: Distended, Firm, Tenderness - Extremities Exam Extremities Exam: Pedal Edema, Tenderness; RLE-knee immobilizer in place - Neurological Exam Neurological Exam: Alert, Awake, Oriented x3 - Psychiatric Exam Psychiatric exam: Flat Affect - Skin Skin Exam: Dry, Normal Color, Warm Assessment and Plan - Assessment and Plan (Free Text) Plan: C.Difficile Fever, SIRS *Afebrile since admission *Isolation, contact precautions - Febrile at admission, 101.8F. Leukocytosis 12.4, improved to 8.5. No bandemia. - Lactate at admission 1.6; repeat 0.9 on 09/02/18 - ID Consult: Dr. Little --> help appreciated - GI Consult: Dr. Laurent --> help appreciated - CXR: negative for acute pathology - Ordered abdominal US - patient currently refusing - Blood cx: coagulase neg staph - probably contaminated - Urinalysis: negative for infection - Urine cx: negative - C.Diff: positive - Ova/parasites: negative - Stool Culture: negative - Stool leukocytes: negative; stool occult negative - Medications: * Vancomycin 250mg PO QID (active since 09/07/18) * Azithromycin 500mg IV Q24 (active since 09/02/18) * Rocephin 2gm IV Q24h (active since 09/02/18) * Flagyl 500mg IV 18h (active since 09/02/18) * Florastor 250mg PO BID Pancreatic Mass - +Abdominal pain - CEA: 42.5 - CA19-9: 1980 - CA125: 36.2 - Abdomen/Pelvic CT: Heterogeneous hyperdense pancreatic mass measuring approximately 2.7 x 2.5 cm at the pancreatic body/tail. Ectatic dilated pancreatic duct. Additional cystic heterogeneous focus measuring approximately 15 x 14 mm is noted at the superior aspect of the pancreas. Appearance worrisome for malignant neoplasm. Wall thickening involving the 2nd portion of the duodenum of uncertain significance; considerations include infectious, inflammatory, or malignant etiologies. Correlate clinically and recommend further evaluation with direct visualization if indicated. Small pelvic free fluid. - Surgery consulted, Dr. Bright; help appreciated KARMA Improved, BUN 25, Cr 1.2 - At admission, BUN 44, Cr 3.2 - Nephrology consulted, Dr. Menendez; help appreciated - Avoid nephrotoxic agents - Possibly due to hypotension, sepsis, or renal hypoperfusion - Renal US: Echogenic renal parenchyma the right kidney. Bilateral cortical thinning. Correlate clinically for medical renal disease. Tachycardia - Likely secondary to infection - Cardiology consulted, Dr. Pineda; help appreciated - Increased Cardizem to 180mg PO BID (from 120mg, per Dr. Pineda) - Will continue to monitor Chronic Diastolic Congestive Heart Failure - Stable - Last echo 2016 showed Grade III reversible restrictive diastolic dysfunction, EF 55% - (HELD due to KARMA) Lasix 20mg PO daily Hypertension - Home medications: * Lisinopril 10mg PO daily (HELD due to KARMA) * Lopressor 50mg PO BID (HELD due to hypotension) * Cardizem 120mg PO daily (HOLD if SBP<100, DBP<60, HR<60) Diabetes Mellitus - Accuchecks, Hypoglycemia protocol - HgA1c 9.3 (01/2018); f/u repeat A1c - Insulin sliding scale - Continue home medications: Januvia 25mg PO daily (decreased due to KARMA), Glipizide 10mg PO BID, Gabapentin 300mg PO TID - Novolin 15units with meals - Lantus 25units HS - Endocrinology consult. Dr Cam. chu appreciated. Fibromyalgia - Home medication: Diazepam 5mg PO PRN (HELD due to hypotension) - Flexeril 5mg PO TID (Holding parameters- hold if sleeping/sedated, hypotension) - Percocet 5/325mg 1 tab Q6H (HELD due to hypotension) Adrenal Insufficiency - Hydrocortisone 20mg PO TID Hypothyroidism - Continue Synthroid 100mcg PO daily - TSH/Free T4: f/u History of DVT/PE - Continue Xarelto 20mg PO daily Gout - Continue Colchicine Depression - Wellbutrin 75mg - Consulted psychiatry, Dr. Yoon. kimberley appreciated. COPD - Continue home medication: Breo - Duonebs Q4h prn Closed fracture of right proximal tibia - Orthopedic surgery consulted, Dr. Hernandez; help appreciated - Per ortho: * continue well padded knee immobilizer; non operative; recommends PT/OT, NWB, VTE proph, and to f/u with Dr. Hernandez 1-2 weeks upon d/c Prophylactic Measures - Protonix 40mg PO daily, Probiotics - Xarelto 20mg PO daily - PT/OT - Case management consult Case discussed and patient seen with Dr. Nenita Preston PGY-2
[2018-09-07] MEDS: Pantoprazole 40 mg EC Tab PO SCH (10:10)
[2018-09-07] MEDS: diltiaZEM 180 mg/24 Hours CD Cap PO SCH ×2 (10:11→18:42)
[2018-09-07] MEDS: Saccharomyces Boulardi 250 mg Cap PO SCH ×2 (10:13→22:24)
[2018-09-07] MEDS: Magnesium Oxide 400 mg Tab UD PO SCH ×2 (10:13→18:40)
--- NOTE | 2018-09-07 11:08 | PCM.PSYCH ---
Initial Psychiatric Evaluation - Initial Psychiatric Evaluation Type of Admission: Voluntary Legal Status: Capacity Chief Complaint (in patient's own words): "I am angry" History of Present Illness and Precipitating Events: This is a 63 year old female who is and living her and 2 daughters, and not currently working presented to the hospital for weakness. Psych was consulted to rule out depression and anxiety. Patient states she came to the hospital 10 days ago because she was feeling very weak after several episodes of nausea, vomiting, and diarrhea that made her feel weak. Patient states her mood has worsened over the past two days, but had been okay before then. She states it is hard to feel good when you have so many health problems. Patient states she has no history of inpatient psychiatric hospitalization but has seen a psychiatrist in the past many times. Patient attempted suicide 20 years ago. Patient reports right leg pain and left-sided abdominal pain. Patient reports a depressed mood, feeling anxious and trouble sleeping, but denies suicidal or homicidal ideations, auditory or visual hallucinations, or paranoia. Patient denies drug use. Patient appears anxious but is not in a cute distress Psych Hx: major depressive disorder, anxiety, suicide attempt Fam Psych: denies PMHx: PE, DM, CHF, fibromyalgia, rheumatoid arthritis, COPD, HLD, hypothyroidism Meds: buproprion, simvastatin, sitagliptin, rivaroxaban, pantoprazole, metoprolol, lisinopril, levothyroxine, insulin, glipizide, gabapentin, furosemide, docusate, diltiazem, cyclobenzaprine, colchicine, albuterol/ipratropium Allergies: denies SurgHx: right hip interroch ORIF IM nail (03/2017), multiple abdominal surgeries for unknown reasons (EMR states cholecystectomy, hysterectomy, appendectomy), [facility] reasons Current Medications: Active Medications Generic Name Dose Route Start Last Admin Trade Name Freq PRN Reason Stop Dose Admin Albuterol/Ipratropium 3 ml 09/02/18 18:43 09/05/18 14:00 Duoneb 3 Mg/0.5 Mg (3 Ml) Ud IH 3 ml RQ4 PRN Administration Shortness of Breath Bupropion HCl 75 mg 09/02/18 10:00 09/07/18 10:10 Wellbutrin PO 75 mg DAILY MATIAS Administration Colchicine 0.6 mg 09/02/18 10:00 09/07/18 10:10 Colocrys PO 0.6 mg BID MATIAS Administration Cyclobenzaprine HCl 5 mg 09/02/18 18:00 09/07/18 10:10 Flexeril PO 5 mg TID MATIAS Administration Dextrose 0 ml 09/06/18 12:49 Dextrose 50% Inj IV STAT PRN Hypoglycemia Protocol Protocol Dextrose 0 gm 09/06/18 12:49 Glutose 15 PO ONCE PRN Hypoglycemia Protocol Protocol Diazepam 5 mg 09/05/18 14:45 09/07/18 10:13 Valium PO 5 mg BID MATIAS Administration Dicyclomine HCl 20 mg 09/04/18 11:16 09/07/18 10:15 Bentyl PO 20 mg TID MATIAS Administration Diltiazem HCl 180 mg 09/06/18 19:31 09/07/18 10:11 Cardizem Cd PO 180 mg BID MATIAS Administration Ergocalciferol 1 cap 09/03/18 09:30 09/03/18 11:35 Drisdol 50,000 Intl Units Cap PO 1 cap Q7D MATIAS Administration Fluticasone/Vilanterol 1 puff 09/05/18 15:30 09/07/18 07:35 Breo Ellipta 100-25 Mcg Inh INH 1 puff RQ24 MATIAS Administration Furosemide 20 mg 09/02/18 10:00 09/07/18 10:13 Lasix PO 20 mg DAILY MATIAS Administration Gabapentin 300 mg 09/01/18 22:00 09/06/18 21:54 Neurontin PO 300 mg HS MATIAS Administration Glipizide 10 mg 09/02/18 10:00 09/07/18 10:13 Glucotrol PO 10 mg BID MATIAS Administration Glucagon 0 mg 09/06/18 12:49 Glucagen Diagnostic Kit IM STAT PRN Hypoglycemia Protocol Protocol Hydrocortisone 20 mg 09/02/18 10:00 09/07/18 10:14 Cortef PO 20 mg TID MATIAS Administration Metronidazole 500 mg in 100 mls @ 100 mls/hr 09/02/18 11:00 09/07/18 10:15 Flagyl IVPB 100 mls/hr Q8H MATIAS Administration Protocol Azithromycin 500 mg/ Sodium 250 mls @ 167 mls/hr 09/02/18 23:30 09/04/18 01:00 Chloride IVPB 167 mls/hr Q24H MATIAS Administration Protocol Dextrose 1,000 mls @ 0 mls/hr 09/06/18 12:49 Dextrose 5% In Water 1000 Ml IV .Q0M PRN Hypoglycemia Protocol Protocol Per Protocol Insulin Aspart 14 unit 09/06/18 16:30 09/07/18 09:30 Novolog SC 14 u AC MATIAS Administration Insulin Aspart 0 unit 09/06/18 16:30 09/07/18 07:40 Novolog SC Not Given ACHS MATIAS Insulin Glargine 20 unit 09/06/18 22:00 09/06/18 21:56 Lantus SC 20 unit HS MATIAS Administration Levothyroxine Sodium 100 mcg 09/04/18 06:30 09/07/18 06:46 Synthroid PO 100 mcg 0630 MATIAS Administration Magnesium Oxide 400 mg 09/03/18 10:00 09/07/18 10:13 Mag-Ox PO 400 mg BID MATIAS Administration Ondansetron HCl 4 mg 09/04/18 11:15 Zofran Inj IVP Q8 PRN Nausea/Vomiting Oxycodone/Acetaminophen 1 tab 09/06/18 13:16 Percocet 5/325 Mg Tab PO 09/09/18 13:17 Q6H PRN Pain, severe (8-10) Pantoprazole Sodium 40 mg 09/02/18 10:00 09/07/18 10:10 Protonix Ec Tab PO 40 mg DAILY MATIAS Administration Rivaroxaban 20 mg 09/02/18 10:00 09/07/18 10:10 Xarelto PO 20 mg DAILY MATIAS Administration Rosuvastatin Calcium 10 mg 09/02/18 22:00 09/06/18 21:54 Crestor PO 10 mg HS MATIAS Administration Saccharomyces Boulardii 250 mg 09/01/18 22:00 09/07/18 10:13 Florastor PO 250 mg Q12 MATIAS Administration Sitagliptin Phosphate 100 mg 09/04/18 10:00 09/07/18 10:10 Januvia PO 100 mg DAILY MATIAS Administration Sucralfate 1 gm 09/05/18 22:00 09/07/18 06:47 Carafate Oral Susp PO 1 gm ACBHS MATIAS Administration Vancomycin HCl 250 mg 09/07/18 00:00 09/07/18 10:23 Vancocin 250mg Capsule PO 250 mg QID MATIAS Administration Past Psychiatric History - Past Psychiatric History Previous Treatment History: Intensive Outpatient Pertinent Medical Hx (Current Medical&Sleep Prob, Allergies): Allergies Allergy/AdvReac Type Severity Reaction Status Date / Time No Known Allergies Allergy Verified 09/01/18 17:29 Cyclobenzaprine [Flexeril] 5 mg PO TID 07/07/18 Insulin Lispro [Humalog Kwikpen U-100] 20 mg SC HS 07/07/18 Insulin Lispro [Humalog Kwikpen U-100] 30 units SC DAILY 07/07/18 Simvastatin [Zocor] 40 mg PO HS 07/07/18 diaZEpam [Valium] 10 mg PO BID PRN 07/07/18 oxyCODONE/Acetaminophen [Percocet 5/325 mg Tab] 1 tab PO Q6 PRN 07/07/18 Docusate Sodium/Sennosides A [Senokot S 50 MG-8.6 MG] 1 tab PO QPM PRN tab 07/13/18 Docusate [Colace] 100 mg PO BID cap 07/13/18 Hydrocortisone [Cortef] 20 mg PO TID tab 07/13/18 Insulin Aspart, Recombinant [Novolog] 0 unit SC ACHS unit 07/13/18 Saccharomyces Boulardi [Florastor] 250 mg PO Q12 cap 07/13/18 buPROPion [Wellbutrin] 75 mg PO DAILY tab 07/13/18 Albuterol/Ipratropium [Duoneb 3 mg/0.5 mg (3 ml) UD] 3 ml IH Q4 PRN #30 vial 07/15/18 Colchicine [Colcrys] 0.6 mg PO BID #60 tablet 07/15/18 Diltiazem HCl [Diltiazem 24Hr ER] 120 mg PO DAILY #30 cap.sa.24h 07/15/18 Fluticasone/Salmeterol 250/50 [Advair Diskus 250/50] 1 puff IH Q12 #1 inhaler 07/15/18 Furosemide [Lasix] 20 mg PO DAILY #30 tab 07/15/18 Gabapentin [Neurontin] 300 mg PO HS #30 cap 07/15/18 GlipiZIDE [Glucotrol] 10 mg PO BID #60 tab 07/15/18 Levothyroxine [Synthroid] 100 mcg PO DAILY #30 tab 07/15/18 Lisinopril [Zestril] 10 mg PO DAILY #30 tablet 07/15/18 Metoprolol Tartrate [Lopressor] 50 mg PO BID #60 tab 07/15/18 Pantoprazole [Protonix EC Tab] 40 mg PO DAILY #30 ect 07/15/18 Rivaroxaban [Xarelto] 20 mg PO DAILY #30 tab 07/15/18 SITagliptin [Januvia] 100 mg PO DAILY #30 tab 07/15/18 Review of Systems - Psychiatric Psychiatric: Abnormal Sleep Pattern, Anhedonia, Anxiety, Depression, Difficulty Concentrating. absent: Hallucinations, Homicidal Ideation, Suicidal Ideation Mental Status Examination - Personal Presentation Personal Presentation: Looks older than stated age - Affect Affect: Other (intense) - Motor Activity Motor Activity: Other (restless) - Reliability in Providing Information Reliability in Providing Information: Fair - Speech Speech: Organized - Mood Mood: Depressed, Anxious - Formal Thought Process Formal Thought Process: No Impairment - Cognitive Functions Orientation: Person, Place, Situation, Time Sensorium: Alert Attention/Concentration: Easily distracted Estimate of Intelligence: Average Judgement: Intact, as evidence by: Insight regarding need for hospitalization Memory: Recent intact, as evidence by: Ability to recall events of the day, Remote intact, as evidenced by: Abilit to recall sig. life events - Risk Risk: Diminished functioning - Strength & Assets Inventory Strength & Assets Inventory: Cooperative - Limitations Limitations: Other DSM 5 DX - DSM 5 DSM 5 Diagnosis: Major depression, recurrent, severe [place] - Recommended/Plan of Treatment Treatment Recommendations and Plan of Treatment: Psychoeducation Supportive therapy, group therapy, individual therapy Trazodone for sleep Gabapentin for pain Continue diazepam but decrease and stop later Zoloft for depression - slowly up to 100mg/d 33 min
[2018-09-07 12:00] LABS: BASO % 0.5 % (0.0-2.0); EOS # 0.1 K/uL (0.0-0.7); EOS % 0.8 % (0.0-4.0); HEMOGLOBIN 8.7 g/dL (11.0-16.0); LYMPH # 1.9 K/uL (1.0-4.3); LYMPH % 19.8 % (20.0-40.0); MEAN CELL VOLUME 76.5 fL (81.0-99.0); MEAN CORPUSCULAR HEMOGLOBIN 22.9 pg (27.0-31.0); MEAN CORPUSCULAR HGB CONC 29.9 g/dL (33.0-37.0); MEAN PLATELET VOLUME 8.9 fL (7.2-11.7); MONO % 10.7 % (0.0-10.0); NEUT # 6.4 K/uL (1.8-7.0); NEUT % 68.2 % (50.0-75.0); NRBC % 0.2 % (0.0-2.0); RBC 3.79 Mil/uL (3.80-5.20); RED CELL DISTRIBUTION WIDTH 19.8 % (11.5-14.5); WHITE BLOOD COUNT 9.3 K/uL (4.8-10.8)
--- NOTE | 2018-09-07 12:42 | CP.PCM.CON ---
<Brice Kauffman - Last Filed: 09/07/18 14:17> History of Present Illness - History of Present Illness History of Present Illness: SURGERY CONSULT NOTE FOR DR. OTERO A 63 yo F w/ a PMHx of diabetes, HTN, hyperlipidemia, HTG, presented to the ED with fevers and diarrhea. Currently those symptoms have resolved, but she has an epigastric pain and discomfort. She also complains of SOB when eating. She admits to dry mouth, feeling thirsty, headaches, dizziness, chronic chest pain, racing heart, anxiety. Currently, she denies fevers, nausea. vomiting, diarrhea, constipation. PMHx: fibromyaligia, DMII, Hyperlipidemia, HTN, [place] x2, [place] x2 (last one about a yr ago) PSHx: Right hip operation, Cholecystectomy, Appendectomy, Hysterectomy, IVC filter placement Social: 88py history (approximately 2p/day),denies alcohol or drug use, lives with and 42yo daughter in [place] Allergies: NKDA Past Patient History - Infectious Disease Hx of Infectious Diseases: None, C.diff - Past Medical History & Family History Past Medical History?: Yes Past Family History: Reviewed and not pertinent - Past Social History Smoking Status: 2 pks per day x 20 years - CARDIAC Hx Congestive Heart Failure: Yes Hx Hypercholesterolemia: Yes Hx Hypertension: Yes - PULMONARY Hx Chronic Obstructive Pulmonary Disease (COPD): Yes - NEUROLOGICAL Hx Neurological Disorder: Yes HX Cerebrovascular Accident: Yes - HEENT Hx HEENT Problems: No - RENAL Hx Chronic Kidney Disease: No - ENDOCRINE/METABOLIC Hx Endocrine Disorders: Yes Hx Hypothyroidism: Yes - HEMATOLOGICAL/ONCOLOGICAL Hx Blood Disorders: Yes Hx Anemia: Yes - INTEGUMENTARY Hx Dermatological Problems: No - MUSCULOSKELETAL/RHEUMATOLOGICAL Hx Rheumatoid Arthritis: Yes - GASTROINTESTINAL Hx Gastrointestinal Disorders: Yes Hx Gall Bladder Disease: Yes - GENITOURINARY/GYNECOLOGICAL Hx Genitourinary Disorders: Yes Hx Urinary Tract Infection: Yes - PSYCHIATRIC Hx Psychophysiologic Disorder: Yes Hx Anxiety: Yes Hx Depression: Yes Hx Substance Use: No - SURGICAL HISTORY Hx Surgeries: Yes Hx Appendectomy: No Hx Cholecystectomy: Yes - ANESTHESIA Hx Anesthesia: Yes Hx Anesthesia Reactions: Yes (DIFFICULTY BREATHING) Meds Allergies/Adverse Reactions: Allergies Allergy/AdvReac Type Severity Reaction Status Date / Time No Known Allergies Allergy Verified 09/01/18 17:29 - Medications Medications: Current Medications Albuterol/Ipratropium (Duoneb 3 Mg/0.5 Mg (3 Ml) Ud) 3 ml IH RQ4 PRN PRN Reason: Shortness of Breath Last Admin: 09/05/18 14:00 Dose: 3 ml Colchicine (Colocrys) 0.6 mg PO BID [facility] Last Admin: 09/07/18 10:10 Dose: 0.6 mg Cyclobenzaprine HCl (Flexeril) 5 mg PO TID [facility] Last Admin: 09/07/18 10:10 Dose: 5 mg Dextrose (Dextrose 50% Inj) 0 ml IV STAT PRN; Protocol PRN Reason: Hypoglycemia Protocol Dextrose (Glutose 15) 0 gm PO ONCE PRN; Protocol PRN Reason: Hypoglycemia Protocol Diazepam (Valium) 5 mg PO BID [facility] Last Admin: 09/07/18 10:13 Dose: 5 mg Dicyclomine HCl (Bentyl) 20 mg PO TID [facility] Last Admin: 09/07/18 10:15 Dose: 20 mg Diltiazem HCl (Cardizem Cd) 180 mg PO BID [facility] Last Admin: 09/07/18 10:11 Dose: 180 mg Ergocalciferol (Drisdol 50,000 Intl Units Cap) 1 cap PO Q7D [facility] Last Admin: 09/03/18 11:35 Dose: 1 cap Fluticasone/Vilanterol (Breo Ellipta 100-25 Mcg Inh) 1 puff INH RQ24 [facility] Last Admin: 09/07/18 07:35 Dose: 1 puff Furosemide (Lasix) 20 mg PO DAILY [facility] Last Admin: 09/07/18 10:13 Dose: 20 mg Gabapentin (Neurontin) 300 mg PO HS [facility] Last Admin: 09/06/18 21:54 Dose: 300 mg Glipizide (Glucotrol) 10 mg PO BID [facility] Last Admin: 09/07/18 10:13 Dose: 10 mg Glucagon (Glucagen Diagnostic Kit) 0 mg IM STAT PRN; Protocol PRN Reason: Hypoglycemia Protocol Hydrocortisone (Cortef) 20 mg PO TID [facility] Last Admin: 09/07/18 10:14 Dose: 20 mg Metronidazole (Flagyl) 500 mg in 100 mls @ 100 mls/hr IVPB Q8H [facility]; Protocol Last Admin: 09/07/18 10:15 Dose: 100 mls/hr Azithromycin 500 mg/ Sodium (Chloride) 250 mls @ 167 mls/hr IVPB Q24H [facility]; Protocol Last Admin: 09/04/18 01:00 Dose: 167 mls/hr Dextrose (Dextrose 5% In Water 1000 Ml) 1,000 mls @ 0 mls/hr IV .Q0M PRN; Protocol PRN Reason: Hypoglycemia Protocol Insulin Aspart (Novolog) 14 unit SC AC [facility] Last Admin: 09/07/18 09:30 Dose: 14 u Insulin Aspart (Novolog) 0 unit SC ACHS [facility] Last Admin: 09/07/18 12:05 Dose: Not Given Insulin Glargine (Lantus) 20 unit SC [facility] Last Admin: 09/06/18 21:56 Dose: 20 unit Levothyroxine Sodium (Synthroid) 100 mcg PO 0630 [facility] Last Admin: 09/07/18 06:46 Dose: 100 mcg Magnesium Oxide (Mag-Ox) 400 mg PO BID [facility] Last Admin: 09/07/18 10:13 Dose: 400 mg Ondansetron HCl (Zofran Inj) 4 mg IVP Q8 PRN PRN Reason: Nausea/Vomiting Oxycodone/Acetaminophen (Percocet 5/325 Mg Tab) 1 tab PO Q6H PRN PRN Reason: Pain, severe (8-10) Stop: 09/09/18 13:17 Pantoprazole Sodium (Protonix Ec Tab) 40 mg PO DAILY [facility] Last Admin: 09/07/18 10:10 Dose: 40 mg Rivaroxaban (Xarelto) 20 mg PO DAILY [facility] Last Admin: 09/07/18 10:10 Dose: 20 mg Rosuvastatin Calcium (Crestor) 10 mg PO [facility] Last Admin: 09/06/18 21:54 Dose: 10 mg Saccharomyces Boulardii (Florastor) 250 mg PO Q12 [facility] Last Admin: 09/07/18 10:13 Dose: 250 mg Sertraline HCl (Zoloft) 25 mg PO DAILY [facility] Sitagliptin Phosphate (Januvia) 100 mg PO DAILY [facility] Last Admin: 09/07/18 10:10 Dose: 100 mg Sucralfate (Carafate Oral Susp) 1 gm PO ACS [facility] Last Admin: 09/07/18 06:47 Dose: 1 gm Trazodone HCl (Desyrel) 50 mg PO [facility] Vancomycin HCl (Vancocin 250mg Capsule) 250 mg PO QID [facility] Last Admin: 09/07/18 10:23 Dose: 250 mg Physical Exam - Constitutional Additional comments: obese - Respiratory Exam Respiratory Exam: Clear to Auscultation Bilateral, NORMAL BREATHING PATTERN - Cardiovascular Exam Cardiovascular Exam: Tachycardia, REGULAR RHYTHM, +S1, +S2 - GI/Abdominal Exam GI & Abdominal Exam: Distended, Soft, Tenderness. absent: Firm, Guarding, Rebound, Rigid - Extremities Exam Extremities exam: Negative for: pedal edema, tenderness - Neurological Exam Neurological exam: Alert, Oriented x3 - Psychiatric Exam Psychiatric exam: Normal Affect, Normal Mood - Skin Skin Exam: Dry, Intact, Normal Color, Warm Results - Vital Signs Recent Vital Signs: Last Vital Signs Temp 99.2 F 09/07/18 08:00 Pulse 105 H 09/07/18 09:15 Resp 20 09/07/18 08:00 BP 166/78 H 09/07/18 10:13 Pulse Ox 97 09/07/18 08:00 - Labs Result Diagrams: 09/07/18 11:53 09/07/18 11:53 Labs: Laboratory Results - last 24 hr 09/02/18 09/03/18 09/06/18 21:42 07:12 16:13 WBC RBC Hgb Hct MCV MCH MCHC RDW Plt Count MPV Neut % (Auto) Lymph % (Auto) [place] % (Auto) Eos % (Auto) Baso % (Auto) Neut # (Auto) Lymph # (Auto) [place] # (Auto) Eos # (Auto) Baso # (Auto) POC Glucose (mg/dL) 322 H Tot [place]/Lambda Ratio 1.70 [place] Light Chain Anal 146 L Lambda Light Chain Anal 86 L C. difficile Tox B Gene Detected H 09/06/18 09/07/18 09/07/18 21:10 06:03 11:06 WBC RBC Hgb Hct MCV MCH MCHC RDW Plt Count MPV Neut % (Auto) Lymph % (Auto) [place] % (Auto) Eos % (Auto) Baso % (Auto) Neut # (Auto) Lymph # (Auto) [place] # (Auto) Eos # (Auto) Baso # (Auto) POC Glucose (mg/dL) 366 H 268 H 206 H Tot [place]/Lambda Ratio Hamilton Light Chain Anal Lambda Light Chain Anal C. difficile Tox B Gene 09/07/18 11:53 WBC 9.3 RBC 3.79 L Hgb 8.7 L Hct 29.0 L MCV 76.5 L MCH 22.9 L MCHC 29.9 L RDW 19.8 H Plt Count 377 MPV 8.9 Neut % (Auto) 68.2 Lymph % (Auto) 19.8 L [place] % (Auto) 10.7 H Eos % (Auto) 0.8 Baso % (Auto) 0.5 Neut # (Auto) 6.4 Lymph # (Auto) 1.9 [place] # (Auto) 1.0 H Eos # (Auto) 0.1 Baso # (Auto) 0.0 POC Glucose (mg/dL) Tot Hamilton/Lambda Ratio [place] Light Chain Anal Lambda Light Chain Anal C. difficile Tox B Gene Assessment & Plan - Assessment and Plan (Free Text) Assessment: 63F with pancreatic mass, likely malignant Plan: - Patient is a poor surgical candidate - Would require further workup/operation but currently unfit to undergo surgery due to medical status Further recs per Dr. Kaila Kauffman, PGY3 <Adam Otero - Last Filed: 09/07/18 17:56> Past Patient History - Past Social History Smoking Status: 2 pks per day x 20 years Meds - Medications Medications: Current Medications Albuterol/Ipratropium (Duoneb 3 Mg/0.5 Mg (3 Ml) Ud) 3 ml IH RQ4 PRN PRN Reason: Shortness of Breath Last Admin: 09/05/18 14:00 Dose: 3 ml Colchicine (Colocrys) 0.6 mg PO BID [facility] Last Admin: 09/07/18 10:10 Dose: 0.6 mg Cyclobenzaprine HCl (Flexeril) 5 mg PO TID [facility] Last Admin: 09/07/18 13:28 Dose: 5 mg Dextrose (Dextrose 50% Inj) 0 ml IV STAT PRN; Protocol PRN Reason: Hypoglycemia Protocol Dextrose (Glutose 15) 0 gm PO ONCE PRN; Protocol PRN Reason: Hypoglycemia Protocol Diazepam (Valium) 5 mg PO BID [facility] Last Admin: 09/07/18 10:13 Dose: 5 mg Dicyclomine HCl (Bentyl) 20 mg PO TID [facility] Last Admin: 09/07/18 13:29 Dose: 20 mg Diltiazem HCl (Cardizem Cd) 180 mg PO BID [facility] Last Admin: 03/06/19 10:11 Dose: 180 mg Ergocalciferol (Drisdol 50,000 Intl Units Cap) 1 cap PO Q7D [facility] Last Admin: 09/03/18 11:35 Dose: 1 cap Fluticasone/Vilanterol (Breo Ellipta 100-25 Mcg Inh) 1 puff INH RQ24 [facility] Last Admin: 09/07/18 07:35 Dose: 1 puff Furosemide (Lasix) 20 mg PO DAILY [facility] Last Admin: 09/07/18 10:13 Dose: 20 mg Gabapentin (Neurontin) 300 mg PO HS [facility] Last Admin: 09/06/18 21:54 Dose: 300 mg Glipizide (Glucotrol) 10 mg PO BID [facility] Last Admin: 09/07/18 10:13 Dose: 10 mg Glucagon (Glucagen Diagnostic Kit) 0 mg IM STAT PRN; Protocol PRN Reason: Hypoglycemia Protocol Hydrocortisone (Cortef) 20 mg PO TID [facility] Last Admin: 09/07/18 13:28 Dose: 20 mg Metronidazole (Flagyl) 500 mg in 100 mls @ 100 mls/hr IVPB Q8H [facility]; Protocol Last Admin: 09/07/18 10:15 Dose: 100 mls/hr Azithromycin 500 mg/ Sodium (Chloride) 250 mls @ 167 mls/hr IVPB Q24H [facility]; Protocol Last Admin: 09/04/18 01:00 Dose: 167 mls/hr Dextrose (Dextrose 5% In Water 1000 Ml) 1,000 mls @ 0 mls/hr IV .Q0M PRN; Protocol PRN Reason: Hypoglycemia Protocol Insulin Aspart (Novolog) 14 unit SC AC [facility] Last Admin: 09/07/18 13:29 Dose: 14 u Insulin Aspart (Novolog) 0 unit SC ACHS [facility] Last Admin: 09/07/18 17:32 Dose: Not Given Insulin Glargine (Lantus) 26 unit SC HS [facility] Levothyroxine Sodium (Synthroid) 100 mcg PO 0630 [facility] Last Admin: 09/07/18 06:46 Dose: 100 mcg Magnesium Oxide (Mag-Ox) 400 mg PO BID [facility] Last Admin: 09/07/18 10:13 Dose: 400 mg Ondansetron HCl (Zofran Inj) 4 mg IVP Q8 PRN PRN Reason: Nausea/Vomiting Oxycodone/Acetaminophen (Percocet 5/325 Mg Tab) 1 tab PO Q6H PRN PRN Reason: Pain, severe (8-10) Stop: 09/09/18 13:17 Last Admin: 09/07/18 15:08 Dose: 1 tab Pantoprazole Sodium (Protonix Ec Tab) 40 mg PO DAILY [facility] Last Admin: 09/07/18 10:10 Dose: 40 mg Rivaroxaban (Xarelto) 20 mg PO DAILY [facility] Last Admin: 09/07/18 10:10 Dose: 20 mg Rosuvastatin Calcium (Crestor) 10 mg PO HS [facility] Last Admin: 09/06/18 21:54 Dose: 10 mg Saccharomyces Boulardii (Florastor) 250 mg PO Q12 [facility] Last Admin: 09/07/18 10:13 Dose: 250 mg Sertraline HCl (Zoloft) 25 mg PO DAILY [facility] Last Admin: 09/07/18 13:28 Dose: 25 mg Sitagliptin Phosphate (Januvia) 100 mg PO DAILY [facility] Last Admin: 09/07/18 10:10 Dose: 100 mg Sucralfate (Carafate Oral Susp) 1 gm PO ACBHS [facility] Last Admin: 09/07/18 06:47 Dose: 1 gm Trazodone HCl (Desyrel) 50 mg PO [facility] Vancomycin HCl (Vancocin 250mg Capsule) 250 mg PO QID [facility] Last Admin: 09/07/18 13:30 Dose: 250 mg Results - Vital Signs Recent Vital Signs: Last Vital Signs Temp 97.8 F 09/07/18 16:09 Pulse 100 H 09/07/18 16:09 Resp 20 09/07/18 16:09 BP 123/66 09/07/18 16:09 Pulse Ox 96 09/07/18 16:09 - Labs Result Diagrams: 09/07/18 11:53 09/07/18 11:53 Labs: Laboratory Results - last 24 hr 09/02/18 09/03/18 09/06/18 21:42 07:12 21:10 WBC RBC Hgb Hct MCV MCH MCHC RDW Plt Count MPV Neut % (Auto) Lymph % (Auto) [place] % (Auto) Eos % (Auto) Baso % (Auto) Neut # (Auto) Lymph # (Auto) [place] # (Auto) Eos # (Auto) Baso # (Auto) Sodium Potassium Chloride Carbon Dioxide Anion Gap BUN Creatinine Est GFR ( Amer) Est GFR (Non-Af Amer) POC Glucose (mg/dL) 366 H Random Glucose Hemoglobin A1c Calcium Magnesium Total Bilirubin AST ALT Alkaline Phosphatase Total Protein Albumin Globulin Albumin/Globulin Ratio Triglycerides Cholesterol LDL Cholesterol Direct HDL Cholesterol Thyroxine (T4) TSH 3rd Generation Tot [place]/Lambda Ratio 1.70 [place] Light Chain Anal 146 L Lambda Light Chain Anal 86 L C. difficile Tox B Gene Detected H 09/06/18 09/07/18 09/07/18 21:10 06:03 11:06 WBC RBC Hgb Hct MCV MCH MCHC RDW Plt Count MPV Neut % (Auto) Lymph % (Auto) [place] % (Auto) Eos % (Auto) Baso % (Auto) Neut # (Auto) Lymph # (Auto) [place] # (Auto) Eos # (Auto) Baso # (Auto) Sodium Potassium Chloride Carbon Dioxide Anion Gap BUN Creatinine Est GFR ( Amer) Est GFR (Non-Af Amer) POC Glucose (mg/dL) 366 H 268 H 206 H Random Glucose Hemoglobin A1c Calcium Magnesium Total Bilirubin AST ALT Alkaline Phosphatase Total Protein Albumin Globulin Albumin/Globulin Ratio Triglycerides Cholesterol LDL Cholesterol Direct HDL Cholesterol Thyroxine (T4) TSH 3rd Generation Tot [place]/Lambda Ratio [place] Light Chain Anal Lambda Light Chain Anal C. difficile Tox B Gene 09/07/18 09/07/18 09/07/18 11:53 11:53 11:53 WBC 9.3 RBC 3.79 L Hgb 8.7 L Hct 29.0 L MCV 76.5 L MCH 22.9 L MCHC 29.9 L RDW 19.8 H Plt Count 377 MPV 8.9 Neut % (Auto) 68.2 Lymph % (Auto) 19.8 L [place] % (Auto) 10.7 H Eos % (Auto) 0.8 Baso % (Auto) 0.5 Neut # (Auto) 6.4 Lymph # (Auto) 1.9 [place] # (Auto) 1.0 H Eos # (Auto) 0.1 Baso # (Auto) 0.0 Sodium 139 Potassium 3.5 L Chloride 112 H Carbon Dioxide 21 L Anion Gap 10 BUN 20 H Creatinine 1.1 Est GFR ( Amer) > 60 Est GFR (Non-Af Amer) 50 POC Glucose (mg/dL) Random Glucose 187 H Hemoglobin A1c 9.0 H Calcium 8.0 L Magnesium 1.3 L Total Bilirubin 0.2 AST 50 H D ALT 105 H Alkaline Phosphatase 93 Total Protein 4.9 L Albumin 2.7 L Globulin 2.2 Albumin/Globulin Ratio 1.2 Triglycerides 77 Cholesterol 85 LDL Cholesterol Direct 40 HDL Cholesterol 43 Thyroxine (T4) 9.50 TSH 3rd Generation 0.30 L Tot Hamilton/Lambda Ratio Hamilton Light Chain Anal Lambda Light Chain Anal C. difficile Tox B Gene 09/07/18 17:35 WBC RBC Hgb Hct MCV MCH MCHC RDW Plt Count MPV Neut % (Auto) Lymph % (Auto) [place] % (Auto) Eos % (Auto) Baso % (Auto) Neut # (Auto) Lymph # (Auto) [place] # (Auto) Eos # (Auto) Baso # (Auto) Sodium Potassium Chloride Carbon Dioxide Anion Gap BUN Creatinine Est GFR ( Amer) Est GFR (Non-Af Amer) POC Glucose (mg/dL) 123 H Random Glucose Hemoglobin A1c Calcium Magnesium Total Bilirubin AST ALT Alkaline Phosphatase Total Protein Albumin Globulin Albumin/Globulin Ratio Triglycerides Cholesterol LDL Cholesterol Direct HDL Cholesterol Thyroxine (T4) TSH 3rd Generation Tot [place]/Lambda Ratio Hamilton Light Chain Anal Lambda Light Chain Anal C. difficile Tox B Gene Assessment & Plan (1) Pancreas neoplasm Assessment and Plan: 63 year old female with likely body of pancreas cancer. CA19-9 and CEA markedly elevated. No vascular invasion or liver metastasis. Though she appears technically resectable. she still needs a CT of the chest. She also has multiple medical problems that make her high risk for surgery. In her current s allen, she is unlikely to survive surgery. She is home O2 dependent. She would need extensive preoperative rehab, as she is bedridden and debilitated. I had a long discussion with the patient to help her understand her current situation. I also spoke to her brother in [place]. Status: Acute
[2018-09-07 12:49] LABS: ALB/GLOB RATIO 1.2 (1.0-2.1); ALBUMIN 2.7 g/dL (3.5-5.0); ALT/SGPT 105 U/L (9-52); AST/SGOT 50 U/L (14-36); BLOOD UREA NITROGEN 20 mg/dL (7-17); GFR NON-AFRICAN AMERICAN 50; HDL CHOLESTEROL 43 mg/dL (30-70)
[2018-09-07 13:01] LABS: LDL CHOLESTEROL 40 mg/dL (0-129)
--- NOTE | 2018-09-07 14:21 | CP.PCM.PN ---
Subjective - Date & Time of Evaluation Date of Evaluation: 09/07/18 Time of Evaluation: 14:21 - Subjective Subjective: Nephrology Consultation Note: Assessment: Stable Acute Kidney Injury (N17.9) likely due to hypotension/sepsis/renal hypoperfusion as also evident by concomitant abnormal AST/ALT: IMPROVING Anemia hyponatremia GPC sepsis hypomagnesemia DM, HTN dCHF, DVT/PE s/p IVC filter, gout, hypothyroidism hyperlipidemia fibromyalgias depression/anxiety COPD Adrenal Insuff C.diff colitis Plan No acute need for renal replacement therapy at this time. Hypertension control with meds as ordered. Maintain hemodynamics stable. Avoid hypotension. Patient not on ACEI/ARB due to recent KARMA. can resume if BP high Monitor Input/Output, daily weights and renal function with basic metabolic panel can resume lasix from renal perspective supplement lytes as needed Check urine analysis, spot protein/creatinine, albumin/creatinine ratio, renal sonogram Anemia work up with TSAT/Ferritin/Vitamin B12/folate, serum protein electrophoresis with immunofixation, serum free light chain assay ([employer]/Lambda) Dose meds/antibiotics for improved GFR. Glycemic control Further work up/management as per primary team Thanks for allowing me to participate in care of your patient. Will follow patient with you. Please call if any Qs. had d/w team Dr Robert Lam Office: [phone] Chief Complaint; fever Reason for consult: Acute Kidney Injury HPI: Pt is a 63 F with hx of diabetes Mellitus ( years), hypertension (years) dCHF, DVT/PE s/p IVC filter, gout, hypothyroidism hyperlipidemia fibromyalgias depression/amxiety COPD presented with complaints of fever and cough, admitted for KARMA and ? COPD exacerbation Denies OTC/herbal meds or NSAIDs No recent iodinated contrast exposure. Noted obvious episodes of low BP (88/46). ROS: limited from pt Cardiovascular: No chest pain. Pulmonary: c/o shortness of breath Gastrointestinal: c/o abdominal pain No nausea. No vomiting. Genitourinary: No pain while urinating. Denies blood in urine. All other negative except as mentioned in HPI Physical Examination: General Appearance: comfortable, in no acute respiratory distress, co-operative . on BiPAP Vitals reviewed and noted as below Head; Atraumatic, normocephalic ENT: no ulcers no thrush. Tongue is midline/dry. Oropharynx: no rash or ulcers. EYES: Pupils are equal, round and reactive to light accommodation. Eye muscles and extraocular movement intact. Sclera is anicteric. Neck; supple no lymphadenopathy, no thyromegaly or bruit Lungs: Normal respiratory rate/effort. Breath sounds bilateral equal and few basal crackle Heart: Increased rate. s1s2 normal. No rub or gallop. Extremities: 1+ edema. No varicose veins Neurological: Patient is alert, awake and oriented to person, place and time. No focal deficit. Strength bilateral appropriate and equal Skin: Warm and dry. Normal turgor. No rash. Palpitation: Normal elasticity for age Abdomen: Abdomen is soft. Bowel sounds +. There is no abdominal tenderness, no guarding/rigidity no organomegaly Psych: limited insight and normal affect/mood MSK: no joint tenderness or swelling. Digits and nails normal, no deformity. Rt leg in splint : kidney or bladder not palpable Labs/imaging reviewed. Past medical history, past surgical history, family history, social history, allergy reviewed and noted as below Family hx: no hx of CKD. Rest non-contributory Hep B/C neg UA no protein Objective - Vital Signs/Intake and Output Vital Signs (last 24 hours): Temp Pulse Resp BP Pulse Ox 99.2 F 105 H 20 166/78 H 97 09/07/18 08:00 09/07/18 09:15 09/07/18 08:00 09/07/18 10:13 09/07/18 08:00 Intake and Output: 09/07/18 09/07/18 06:59 18:59 Output Total 300 Balance -300 - Medications Medications: Current Medications Albuterol/Ipratropium (Duoneb 3 Mg/0.5 Mg (3 Ml) Ud) 3 ml IH RQ4 PRN PRN Reason: Shortness of Breath Last Admin: 09/05/18 14:00 Dose: 3 ml Colchicine (Colocrys) 0.6 mg PO BID [facility] Last Admin: 09/07/18 10:10 Dose: 0.6 mg Cyclobenzaprine HCl (Flexeril) 5 mg PO TID [facility] Last Admin: 09/07/18 13:28 Dose: 5 mg Dextrose (Dextrose 50% Inj) 0 ml IV STAT PRN; Protocol PRN Reason: Hypoglycemia Protocol Dextrose (Glutose 15) 0 gm PO ONCE PRN; Protocol PRN Reason: Hypoglycemia Protocol Diazepam (Valium) 5 mg PO BID [facility] Last Admin: 09/07/18 10:13 Dose: 5 mg Dicyclomine HCl (Bentyl) 20 mg PO TID [facility] Last Admin: 09/07/18 13:29 Dose: 20 mg Diltiazem HCl (Cardizem Cd) 180 mg PO BID [facility] Last Admin: 09/07/18 10:11 Dose: 180 mg Ergocalciferol (Drisdol 50,000 Intl Units Cap) 1 cap PO Q7D [facility] Last Admin: 09/03/18 11:35 Dose: 1 cap Fluticasone/Vilanterol (Breo Ellipta 100-25 Mcg Inh) 1 puff INH RQ24 [facility] Last Admin: 09/07/18 07:35 Dose: 1 puff Furosemide (Lasix) 20 mg PO DAILY [facility] Last Admin: 09/07/18 10:13 Dose: 20 mg Gabapentin (Neurontin) 300 mg PO [facility] Last Admin: 09/06/18 21:54 Dose: 300 mg Glipizide (Glucotrol) 10 mg PO BID [facility] Last Admin: 09/07/18 10:13 Dose: 10 mg Glucagon (Glucagen Diagnostic Kit) 0 mg IM STAT PRN; Protocol PRN Reason: Hypoglycemia Protocol Hydrocortisone (Cortef) 20 mg PO TID [facility] Last Admin: 09/07/18 13:28 Dose: 20 mg Metronidazole (Flagyl) 500 mg in 100 mls @ 100 mls/hr IVPB Q8H [facility]; Protocol Last Admin: 09/07/18 10:15 Dose: 100 mls/hr Azithromycin 500 mg/ Sodium (Chloride) 250 mls @ 167 mls/hr IVPB Q24H [facility]; Protocol Last Admin: 09/04/18 01:00 Dose: 167 mls/hr Dextrose (Dextrose 5% In Water 1000 Ml) 1,000 mls @ 0 mls/hr IV .Q0M PRN; Protocol PRN Reason: Hypoglycemia Protocol Insulin Aspart (Novolog) 14 unit SC AC [facility] Last Admin: 09/07/18 13:29 Dose: 14 u Insulin Aspart (Novolog) 0 unit SC ACHS [facility] Last Admin: 09/07/18 12:05 Dose: Not Given Insulin Glargine (Lantus) 20 unit SC HS [facility] Last Admin: 09/06/18 21:56 Dose: 20 unit Levothyroxine Sodium (Synthroid) 100 mcg PO 0630 [facility] Last Admin: 09/07/18 06:46 Dose: 100 mcg Magnesium Oxide (Mag-Ox) 400 mg PO BID [facility] Last Admin: 09/07/18 10:13 Dose: 400 mg Ondansetron HCl (Zofran Inj) 4 mg IVP Q8 PRN PRN Reason: Nausea/Vomiting Oxycodone/Acetaminophen (Percocet 5/325 Mg Tab) 1 tab PO Q6H PRN PRN Reason: Pain, severe (8-10) Stop: 09/09/18 13:17 Pantoprazole Sodium (Protonix Ec Tab) 40 mg PO DAILY [facility] Last Admin: 09/07/18 10:10 Dose: 40 mg Rivaroxaban (Xarelto) 20 mg PO DAILY [facility] Last Admin: 09/07/18 10:10 Dose: 20 mg Rosuvastatin Calcium (Crestor) 10 mg PO [facility] Last Admin: 09/06/18 21:54 Dose: 10 mg Saccharomyces Boulardii (Florastor) 250 mg PO Q12 [facility] Last Admin: 09/07/18 10:13 Dose: 250 mg Sertraline HCl (Zoloft) 25 mg PO DAILY [facility] Last Admin: 09/07/18 13:28 Dose: 25 mg Sitagliptin Phosphate (Januvia) 100 mg PO DAILY [facility] Last Admin: 09/07/18 10:10 Dose: 100 mg Sucralfate (Carafate Oral Susp) 1 gm PO [facility] Last Admin: 09/07/18 06:47 Dose: 1 gm Trazodone HCl (Desyrel) 50 mg PO [facility] Vancomycin HCl (Vancocin 250mg Capsule) 250 mg PO QID [facility] Last Admin: 09/07/18 13:30 Dose: 250 mg - Labs Labs: 09/07/18 11:53 09/07/18 11:53 PT 21.0 SECONDS (9.7-12.2) H 09/05/18 16:44 INR 1.9 09/05/18 16:44 APTT 28 SECONDS (21-34) 09/05/18 16:44
--- NOTE | 2018-09-07 15:07 | PN ---
DATE: 09/07/2018 LOCATION: 553, bed A. SUBJECTIVE: This is a 63-year-old female seen and examined in rounds, still on BiPAP with a complaint of abdominal pain as well as lower extremities and back pain, with right leg immobilizer is in use. No reported actual chest pain or palpitation, but intermittent period of shortness of breath. No reported active GI bleeding. The entire chart is reviewed including but not limited to the most recent lab and radiology study results, current and the previous medication list and today's blood glucose level reported to be 268 with as per report of hemoglobin 8.8, hematocrit 29.6 with low indices, highly suggestive of hypochromic microcytic anemia with abnormal AST and ALT as well as low albumin and total protein with as reported excessive increase of CEA, CA 19 9 as well as CA-125 before, but hepatitis profile reported to be negative. As I ordered, CAT scan of the abdomen and pelvis was performed, GI initial report is seen indicative of pancreatic mass lesion in the pancreatic head and tail with dilated main pancreatic duct with cystic lesion and lesion of the pancreas as well as thickening of the second portion of the duodenal wall of unclear etiology with possible infectious process or malignant etiology and upper endoscopy is suggested. PHYSICAL EXAMINATION: GENERAL: A 63-year-old female, awake, alert, oriented, complaining of persistent abdominal pain with mild shortness of breath on and off. VITAL SIGNS: The patient is afebrile with pulse of 102, respiratory 20 to 24 with blood pressure of 166/86. HEENT: Showed pale dry mucous membrane mildly with nonicteric sclerae. LUNGS: Scattered crepitation. Decreased air entry at bases. HEART: Positive S1 and S2. ABDOMEN: Soft with mild generalized tenderness. No mass or organomegaly. No rebound tenderness or guarding, but mildly distended. EXTREMITIES: Without significant clubbing, cyanosis but edematous changes. NEUROLOGICAL: No reported new neurological deficits, sensory or motor. Stool for C. diff toxin was detected. IMPRESSION: 1. Acute pseudomembranous colitis. 2. Abnormal CAT scan of the abdomen and pelvis with pancreatic mass lesion. 3. Abnormal liver function test, most likely secondary to an infectious process. 4. Re-exacerbation of peptic ulcer disease. 5. Excessive increase of cancer markers and the possibility of lower GI tract, carcinoma should be ruled in or out. 6. Right hip fracture by history. 7. Poorly controlled diabetes mellitus with diabetic gastroparesis. 8. Known history of deep venous thrombosis, hypertension, hypothyroidism with hyperlipidemia. 9. Pulmonary embolus by history. 10. Abnormal liver function test secondary to infectious process. SUGGESTIONS: 1. Continue current management. 2. MRCP. 3. Endoscopic evaluation of the GI tract due to the patient's elevated cancer markers when she is more stable clinically, otherwise close observation to follow. Cara Piedra MD [facility] # [id number]
[2018-09-07] MEDS: Oxycodone/Acetaminophen 5/325 mg Tab PO PRN ×2 (15:08→22:24)
[2018-09-07] MEDS ORDERED: Potassium Chloride 20 mEq ER Tab PO ONE (15:15)
[2018-09-07] MEDS ORDERED: (Lantus) Insulin Glargine, Recombinant SC SCH (22:00)
[2018-09-08] MEDS: metroNIDAZOLE IV 500 mg/100 ml 500 MG/100 ML BAG IVPB SCH ×2 (03:50→10:21)
[2018-09-08] MEDS: Oxycodone/Acetaminophen 5/325 mg Tab PO PRN ×3 (04:11→22:20)
--- NOTE | 2018-09-08 06:46 | CP.PCM.PN ---
Subjective - Date & Time of Evaluation Date of Evaluation: 09/08/18 Time of Evaluation: 06:34 - Subjective Subjective: Dariel Slaughter D.O. PGY-3, Internal Medicine Resident, Endocrinology Progress Note 63 year old female with a PMH of COPD, type 2 IDDM, anxiety, depression, DVT, PE, OA who presented with fever. Endocrinology consultation requested for hyperglycemic accelerations. Patient was seen and examined at bedside. Sleeping comfortably when approached. Still wearing BIPAP overnight. Objective - Vital Signs/Intake and Output Vital Signs (last 24 hours): Temp Pulse Resp BP Pulse Ox 98.6 F 109 H 22 142/69 99 09/07/18 23:33 09/08/18 04:05 09/07/18 23:33 09/07/18 23:33 09/07/18 23:33 Intake and Output: 09/07/18 09/08/18 18:59 06:59 Intake Total 800 Output Total 400 800 Balance 400 -800 - Medications Medications: Current Medications Albuterol/Ipratropium (Duoneb 3 Mg/0.5 Mg (3 Ml) Ud) 3 ml IH RQ4 PRN PRN Reason: Shortness of Breath Last Admin: 09/05/18 14:00 Dose: 3 ml Colchicine (Colocrys) 0.6 mg PO BID COUNTS INCLUDE 234 BEDS AT THE [facility] Last Admin: 09/07/18 18:42 Dose: 0.6 mg Cyclobenzaprine HCl (Flexeril) 5 mg PO TID COUNTS INCLUDE 234 BEDS AT THE [facility] Last Admin: 09/07/18 18:41 Dose: 5 mg Dextrose (Dextrose 50% Inj) 0 ml IV STAT PRN; Protocol PRN Reason: Hypoglycemia Protocol Dextrose (Glutose 15) 0 gm PO ONCE PRN; Protocol PRN Reason: Hypoglycemia Protocol Diazepam (Valium) 5 mg PO BID COUNTS INCLUDE 234 BEDS AT THE [facility] Last Admin: 09/07/18 18:40 Dose: 5 mg Dicyclomine HCl (Bentyl) 20 mg PO TID COUNTS INCLUDE 234 BEDS AT THE [facility] Last Admin: 09/07/18 18:42 Dose: 20 mg Diltiazem HCl (Cardizem Cd) 180 mg PO BID COUNTS INCLUDE 234 BEDS AT THE [facility] Last Admin: 09/07/18 18:42 Dose: 180 mg Ergocalciferol (Drisdol 50,000 Intl Units Cap) 1 cap PO Q7D COUNTS INCLUDE 234 BEDS AT THE [facility] Last Admin: 09/03/18 11:35 Dose: 1 cap Fluticasone/Vilanterol (Breo Ellipta 100-25 Mcg Inh) 1 puff INH RQ24 COUNTS INCLUDE 234 BEDS AT THE [facility] Last Admin: 09/07/18 07:35 Dose: 1 puff Furosemide (Lasix) 20 mg PO DAILY COUNTS INCLUDE 234 BEDS AT THE [facility] Last Admin: 09/07/18 10:13 Dose: 20 mg Gabapentin (Neurontin) 300 mg PO HS COUNTS INCLUDE 234 BEDS AT THE [facility] Last Admin: 09/07/18 22:24 Dose: 300 mg Glipizide (Glucotrol) 10 mg PO BID COUNTS INCLUDE 234 BEDS AT THE [facility] Last Admin: 09/07/18 18:40 Dose: 10 mg Glucagon (Glucagen Diagnostic Kit) 0 mg IM STAT PRN; Protocol PRN Reason: Hypoglycemia Protocol Hydrocortisone (Cortef) 20 mg PO TID COUNTS INCLUDE 234 BEDS AT THE [facility] Last Admin: 09/07/18 18:41 Dose: 20 mg Metronidazole (Flagyl) 500 mg in 100 mls @ 100 mls/hr IVPB Q8H COUNTS INCLUDE 234 BEDS AT THE [facility]; Protocol Last Admin: 09/08/18 03:50 Dose: 100 mls/hr Azithromycin 500 mg/ Sodium (Chloride) 250 mls @ 167 mls/hr IVPB Q24H COUNTS INCLUDE 234 BEDS AT THE [facility]; Protocol Last Admin: 09/04/18 01:00 Dose: 167 mls/hr Dextrose (Dextrose 5% In Water 1000 Ml) 1,000 mls @ 0 mls/hr IV .Q0M PRN; Protocol PRN Reason: Hypoglycemia Protocol Insulin Aspart (Novolog) 14 unit SC AC COUNTS INCLUDE 234 BEDS AT THE [facility] Last Admin: 09/07/18 18:50 Dose: 14 u Insulin Aspart (Novolog) 0 unit SC ACHS COUNTS INCLUDE 234 BEDS AT THE [facility] Last Admin: 09/07/18 21:30 Dose: Not Given Insulin Glargine (Lantus) 26 unit SC [facility] Last Admin: 09/07/18 22:25 Dose: 26 unit Levothyroxine Sodium (Synthroid) 100 mcg PO 0630 COUNTS INCLUDE 234 BEDS AT THE [facility] Last Admin: 09/07/18 06:46 Dose: 100 mcg Magnesium Oxide (Mag-Ox) 400 mg PO BID COUNTS INCLUDE 234 BEDS AT THE [facility] Last Admin: 09/07/18 18:40 Dose: 400 mg Ondansetron HCl (Zofran Inj) 4 mg IVP Q8 PRN PRN Reason: Nausea/Vomiting Oxycodone/Acetaminophen (Percocet 5/325 Mg Tab) 1 tab PO Q6H PRN PRN Reason: Pain, severe (8-10) Stop: 09/09/18 13:17 Last Admin: 09/08/18 04:11 Dose: 1 tab Pantoprazole Sodium (Protonix Ec Tab) 40 mg PO DAILY COUNTS INCLUDE 234 BEDS AT THE [facility] Last Admin: 09/07/18 10:10 Dose: 40 mg Rivaroxaban (Xarelto) 20 mg PO DAILY COUNTS INCLUDE 234 BEDS AT THE [facility] Last Admin: 09/07/18 10:10 Dose: 20 mg Rosuvastatin Calcium (Crestor) 10 mg PO HS COUNTS INCLUDE 234 BEDS AT THE [facility] Last Admin: 09/07/18 22:24 Dose: 10 mg Saccharomyces Boulardii (Florastor) 250 mg PO Q12 COUNTS INCLUDE 234 BEDS AT THE [facility] Last Admin: 09/07/18 22:24 Dose: 250 mg Sertraline HCl (Zoloft) 25 mg PO DAILY COUNTS INCLUDE 234 BEDS AT THE [facility] Last Admin: 09/07/18 13:28 Dose: 25 mg Sitagliptin Phosphate (Januvia) 100 mg PO DAILY COUNTS INCLUDE 234 BEDS AT THE [facility] Last Admin: 09/07/18 10:10 Dose: 100 mg Sucralfate (Carafate Oral Susp) 1 gm PO ACBHS COUNTS INCLUDE 234 BEDS AT THE [facility] Last Admin: 09/07/18 22:25 Dose: 1 gm Trazodone HCl (Desyrel) 50 mg PO [facility] Last Admin: 09/07/18 22:25 Dose: 50 mg Vancomycin HCl (Vancocin 250mg Capsule) 250 mg PO QID COUNTS INCLUDE 234 BEDS AT THE [facility] Last Admin: 09/07/18 22:28 Dose: 250 mg - Labs Labs: 09/07/18 11:53 09/07/18 11:53 PT 21.0 SECONDS (9.7-12.2) H 09/05/18 16:44 INR 1.9 09/05/18 16:44 APTT 28 SECONDS (21-34) 09/05/18 16:44 - Constitutional Appears: No Acute Distress - Head Exam Head Exam: ATRAUMATIC, NORMOCEPHALIC, wearing BIPAP - Eye Exam Eye Exam: EOMI. absent: Scleral icterus - ENT Exam Additional comments: BIPAP mask on - Neck Exam Neck Exam: Normal Inspection - Respiratory Exam Respiratory Exam: Wheezes - Cardiovascular Exam Cardiovascular Exam: +S1, +S2 - Neurological Exam Neurological Exam: Alert, Awake - Skin Skin Exam: Dry, Warm Assessment and Plan - Assessment and Plan (Free Text) Assessment: 63 year old female with a PMH of COPD, type 2 IDDM, anxiety, depression, DVT, PE, OA who presented with fever. Endocrinology consultation requested for hyperglycemic accelerations. Plan: 1. Uncontrolled type 2 IDDM in the setting of acute illness Likely worsening 2/2 steroid causing increased insulin resistance BG last 24 hrs 123-268, improved from numbers seen day before HgbA1c is 9% Continue januvia 100mg PO QD Last night increased lantus from 20 to 26 units SC HS Maintain aspart at 14 units SC AC Continue glipizide 10mg PO BID 2. Hypothyroidism TSH slightly low but T4 within normal limits Will continue with levothyroxine 100mcg PO QD Patient was seen and examined and case to be discussed with attending physician.
--- NOTE | 2018-09-08 07:28 | CP.PCM.PN ---
Subjective - Date & Time of Evaluation Date of Evaluation: 09/08/18 Time of Evaluation: 07:25 - Subjective Subjective: Progress note for Dr. Gutierres Patient was seen and examined at bedside in no acute distress. Patient reports she still has left sided abdominal pain. She denies chest pain, palpitations, nausea, vomiting, fevers, headaches, dizziness, dysuria. The patient is alert and orientedx3. Objective - Vital Signs/Intake and Output Vital Signs (last 24 hours): Temp Pulse Resp BP Pulse Ox 98.6 F 109 H 22 142/69 99 09/07/18 23:33 09/08/18 04:05 09/07/18 23:33 09/07/18 23:33 09/07/18 23:33 Intake and Output: 09/08/18 09/08/18 06:59 18:59 Output Total 800 Balance -800 - Medications Medications: Current Medications Albuterol/Ipratropium (Duoneb 3 Mg/0.5 Mg (3 Ml) Ud) 3 ml IH RQ4 PRN PRN Reason: Shortness of Breath Last Admin: 09/05/18 14:00 Dose: 3 ml Colchicine (Colocrys) 0.6 mg PO BID COUNT [facility]CLUDES [facility] Last Admin: 09/07/18 18:42 Dose: 0.6 mg Cyclobenzaprine HCl (Flexeril) 5 mg PO TID COUNT INCLUDES THE [facility] Last Admin: 09/07/18 18:41 Dose: 5 mg Dextrose (Dextrose 50% Inj) 0 ml IV STAT PRN; Protocol PRN Reason: Hypoglycemia Protocol Dextrose (Glutose 15) 0 gm PO ONCE PRN; Protocol PRN Reason: Hypoglycemia Protocol Diazepam (Valium) 5 mg PO BID COUNT INCLUDES THE [facility] Last Admin: 09/07/18 18:40 Dose: 5 mg Dicyclomine HCl (Bentyl) 20 mg PO TID COUNT INCLUDES THE [facility] Last Admin: 09/07/18 18:42 Dose: 20 mg Diltiazem HCl (Cardizem Cd) 180 mg PO BID COUNT INCLUDES THE [facility] Last Admin: 09/07/18 18:42 Dose: 180 mg Ergocalciferol (Drisdol 50,000 Intl Units Cap) 1 cap PO Q7D COUNT INCLUDES THE [facility] Last Admin: 09/03/18 11:35 Dose: 1 cap Fluticasone/Vilanterol (Breo Ellipta 100-25 Mcg Inh) 1 puff INH RQ24 COUNT INCLUDES THE [facility] Last Admin: 09/07/18 07:35 Dose: 1 puff Furosemide (Lasix) 20 mg PO DAILY COUNT INCLUDES THE [facility] Last Admin: 09/07/18 10:13 Dose: 20 mg Gabapentin (Neurontin) 300 mg PO HS COUNT INCLUDES THE [facility] Last Admin: 09/07/18 22:24 Dose: 300 mg Glipizide (Glucotrol) 10 mg PO BID COUNT INCLUDES THE [facility] Last Admin: 09/07/18 18:40 Dose: 10 mg Glucagon (Glucagen Diagnostic Kit) 0 mg IM STAT PRN; Protocol PRN Reason: Hypoglycemia Protocol Hydrocortisone (Cortef) 20 mg PO TID COUNT INCLUDES THE [facility] Last Admin: 09/07/18 18:41 Dose: 20 mg Metronidazole (Flagyl) 500 mg in 100 mls @ 100 mls/hr IVPB Q8H COUNT INCLUDES THE [facility]; Protocol Last Admin: 09/08/18 03:50 Dose: 100 mls/hr Azithromycin 500 mg/ Sodium (Chloride) 250 mls @ 167 mls/hr IVPB Q24H COUNT INCLUDES THE [facility]; Protocol Last Admin: 09/04/18 01:00 Dose: 167 mls/hr Dextrose (Dextrose 5% In Water 1000 Ml) 1,000 mls @ 0 mls/hr IV .Q0M PRN; Protocol PRN Reason: Hypoglycemia Protocol Insulin Aspart (Novolog) 14 unit SC AC COUNT INCLUDES THE [facility] Last Admin: 09/07/18 18:50 Dose: 14 u Insulin Aspart (Novolog) 0 unit SC ACHS COUNT INCLUDES THE [facility] Last Admin: 09/07/18 21:30 Dose: Not Given Insulin Glargine (Lantus) 26 unit SC HS COUNT INCLUDES THE [facility] Last Admin: 09/07/18 22:25 Dose: 26 unit Levothyroxine Sodium (Synthroid) 100 mcg PO 0630 COUNT INCLUDES THE [facility] Last Admin: 09/07/18 06:46 Dose: 100 mcg Magnesium Oxide (Mag-Ox) 400 mg PO BID COUNT INCLUDES THE [facility] Last Admin: 09/07/18 18:40 Dose: 400 mg Ondansetron HCl (Zofran Inj) 4 mg IVP Q8 PRN PRN Reason: Nausea/Vomiting Oxycodone/Acetaminophen (Percocet 5/325 Mg Tab) 1 tab PO Q6H PRN PRN Reason: Pain, severe (8-10) Stop: 09/09/18 13:17 Last Admin: 09/08/18 04:11 Dose: 1 tab Pantoprazole Sodium (Protonix Ec Tab) 40 mg PO DAILY COUNT INCLUDES THE [facility] Last Admin: 09/07/18 10:10 Dose: 40 mg Rivaroxaban (Xarelto) 20 mg PO DAILY COUNT INCLUDES THE [facility] Last Admin: 09/07/18 10:10 Dose: 20 mg Rosuvastatin Calcium (Crestor) 10 mg PO HS COUNT INCLUDES THE [facility] Last Admin: 09/07/18 22:24 Dose: 10 mg Saccharomyces Boulardii (Florastor) 250 mg PO Q12 COUNT INCLUDES THE [facility] Last Admin: 09/07/18 22:24 Dose: 250 mg Sertraline HCl (Zoloft) 25 mg PO DAILY COUNT INCLUDES THE [facility] Last Admin: 09/07/18 13:28 Dose: 25 mg Sitagliptin Phosphate (Januvia) 100 mg PO DAILY COUNT INCLUDES THE [facility] Last Admin: 09/07/18 10:10 Dose: 100 mg Sucralfate (Carafate Oral Susp) 1 gm PO ACBHS COUNT INCLUDES THE [facility] Last Admin: 09/07/18 22:25 Dose: 1 gm Trazodone HCl (Desyrel) 50 mg PO HS COUNT INCLUDES THE [facility] Last Admin: 09/07/18 22:25 Dose: 50 mg Vancomycin HCl (Vancocin 250mg Capsule) 250 mg PO QID COUNT INCLUDES THE [facility] Last Admin: 09/07/18 22:28 Dose: 250 mg - Labs Labs: 09/07/18 11:53 09/07/18 11:53 PT 21.0 SECONDS (9.7-12.2) H 09/05/18 16:44 INR 1.9 09/05/18 16:44 APTT 28 SECONDS (21-34) 09/05/18 16:44 - Additional Findings Additional findings: - Constitutional Appears: No Acute Distress, Chronically Ill - Head Exam Head Exam: NORMAL INSPECTION - Eye Exam Eye Exam: EOMI, Normal appearance - ENT Exam ENT Exam: Mucous Membranes Moist - Respiratory Exam Respiratory Exam: NORMAL BREATHING PATTERN. absent: Rales, Rhonchi, Wheezes, Respiratory Distress - Cardiovascular Exam Cardiovascular Exam: REGULAR RHYTHM, +S1, +S2 - GI/Abdominal Exam GI & Abdominal Exam: Soft, Normal Bowel Sounds, left sided abdominal pain w/palpation. absent: Distended, Firm - Extremities Exam Extremities Exam: Pedal Edema, Tenderness; RLE-knee immobilizer in place - Neurological Exam Neurological Exam: Alert, Awake, Oriented x3 - Psychiatric Exam Psychiatric exam: Flat Affect - Skin Skin Exam: Dry, Normal Color, Warm Assessment and Plan - Assessment and Plan (Free Text) Plan: C.Difficile Fever, SIRS *Afebrile since admission *Isolation, contact precautions - Febrile at admission, 101.8F. Leukocytosis 12.4, improved to 8.5. No bandemia. - Lactate at admission 1.6; repeat 0.9 on 09/02/18 - ID Consult: Dr. Little --> help appreciated - GI Consult: Dr. Laurent --> help appreciated - CXR: negative for acute pathology - Ordered abdominal US - patient currently refusing - Blood cx: coagulase neg staph - probably contaminated - Urinalysis: negative for infection - Urine cx: negative - C.Diff: positive - Ova/parasites: negative - Stool Culture: negative - Stool leukocytes: negative; stool occult negative - Medications: * Vancomycin 250mg PO QID (active since 09/07/18) * Azithromycin 500mg IV Q24 (active since 09/02/18) * Rocephin 2gm IV Q24h (active since 09/02/18) * Flagyl 500mg IV 18h (active since 09/02/18) * Florastor 250mg PO BID Pancreatic Mass - +Abdominal pain - CEA: 42.5 - CA19-9: 1980 - CA125: 36.2 - Abdomen/Pelvic CT: Heterogeneous hyperdense pancreatic mass measuring approximately 2.7 x 2.5 cm at the pancreatic body/tail. Ectatic dilated pancreatic duct. Additional cystic heterogeneous focus measuring approximately 15 x 14 mm is noted at the superior aspect of the pancreas. Appearance worrisome for malignant neoplasm. Wall thickening involving the 2nd portion of the duodenum of uncertain significance; considerations include infectious, inflammatory, or malignant etiologies. Correlate clinically and recommend further evaluation with direct visualization if indicated. Small pelvic free fluid. - Surgery consulted, Dr. Bright; help appreciated - Per surgery team, mass appears resectable, however, patient is a not a surgical candidate at this time due to other conditions/comorbities. KARMA Resolved, will continue to monitor - At admission, BUN 44, Cr 3.2 - Nephrology consulted, Dr. Menendez; help appreciated - Avoid nephrotoxic agents - Possibly due to hypotension, sepsis, or renal hypoperfusion - Renal US: Echogenic renal parenchyma the right kidney. Bilateral cortical thinning. Correlate clinically for medical renal disease. Tachycardia - Likely secondary to infection - Cardiology consulted, Dr. Pineda; help appreciated - Increased Cardizem to 180mg PO BID (from 120mg, per Dr. Pineda) - Will continue to monitor Chronic Diastolic Congestive Heart Failure - Stable - Last echo 2016 showed Grade III reversible restrictive diastolic dysfunction, EF 55% - Lasix 20mg PO daily Hypertension - Home medications: * Lisinopril 10mg PO daily (HELD due to KARMA) * Lopressor 50mg PO BID (HELD due to hypotension) * Cardizem 120mg PO daily (HOLD if SBP<100, DBP<60, HR<60) Diabetes Mellitus - Accuchecks, Hypoglycemia protocol - HgA1c 9.3 (01/2018); repeat A1c 9.0 - Insulin sliding scale - Continue home medications: Januvia 100 mg PO daily, Glipizide 10mg PO BID, Gabapentin 300mg PO TID - Novolin 14 units with meals - Lantus 26 units HS - Endocrinology consult. Dr Cam. chu appreciated. Fibromyalgia - Home medication: Diazepam 5mg PO BID - Flexeril 5mg PO TID (Holding parameters- hold if sleeping/sedated, hypotension) - Percocet 5/325mg 2 tab Q6H prn for pain - Gabapentin 300mg PO TID Adrenal Insufficiency - Hydrocortisone 20mg PO TID Hypothyroidism - Continue Synthroid 100mcg PO daily - TSH/Free T4: 9.5/0.30 History of DVT/PE - Continue Xarelto 20mg PO daily Gout - Continue Colchicine Depression - Consulted psychiatry, Dr. Dexter, recs appreciated. - Per psychiatry, Started zoloft (will slowly increased to 100mg po daily), trazodone for sleep, will taper off of diazepam. COPD - Continue home medication: Breo - Duonebs Q4h prn Closed fracture of right proximal tibia - Orthopedic surgery consulted, Dr. Hernandez; help appreciated - Per ortho: continue well padded knee immobilizer; non operative; recommends PT/OT, NWB, VTE proph, and to f/u with Dr. Hernandez 1-2 weeks upon d/c Prophylactic Measures - Protonix 40mg PO daily, Probiotics - Xarelto 20mg PO daily - PT/OT - Case management consult Case discussed and patient seen with Dr. Nenita Preston PGY-2
[2018-09-08] MEDS: Sucralfate 1 gm/10 ml Oral Susp UD PO SCH ×2 (07:29→22:20)
[2018-09-08] MEDS: (Novolog) Insulin Aspart, Recombinant 100 u/ml 10 ml vial SC SCH ×7 (07:44→22:21)
[2018-09-08] MEDS: Pantoprazole 40 mg EC Tab PO SCH (10:12)
[2018-09-08] MEDS: Levothyroxine 100 MCG TAB PO SCH (10:12)
[2018-09-08] MEDS: Saccharomyces Boulardi 250 mg Cap PO SCH ×2 (10:12→22:22)
[2018-09-08] MEDS: Vancomycin Hydrochloride 250 mg Capsule (Oral) PO SCH ×4 (10:13→22:23)
[2018-09-08] MEDS: diltiaZEM 180 mg/24 Hours CD Cap PO SCH ×2 (10:13→19:22)
[2018-09-08] MEDS: Magnesium Oxide 400 mg Tab UD PO SCH ×2 (10:13→19:21)
[2018-09-08 11:30] LABS: BASO # 0.1 K/uL (0.0-0.2); BASO % 1.1 % (0.0-2.0); EOS # 0.1 K/uL (0.0-0.7); EOS % 0.5 % (0.0-4.0); HEMOGLOBIN 8.6 g/dL (11.0-16.0); LYMPH # 2.8 K/uL (1.0-4.3); LYMPH % 24.7 % (20.0-40.0); MEAN CELL VOLUME 76.6 fL (81.0-99.0); MEAN CORPUSCULAR HEMOGLOBIN 22.7 pg (27.0-31.0); MEAN CORPUSCULAR HGB CONC 29.7 g/dL (33.0-37.0); MONO # 1.3 K/uL (0.0-0.8); MONO % 11.1 % (0.0-10.0); NEUT # 7.1 K/uL (1.8-7.0); NEUT % 62.6 % (50.0-75.0); NRBC % 0.1 % (0.0-2.0); RBC 3.79 Mil/uL (3.80-5.20); RED CELL DISTRIBUTION WIDTH 19.9 % (11.5-14.5); WHITE BLOOD COUNT 11.3 K/uL (4.8-10.8)
[2018-09-08 11:48] LABS: ALB/GLOB RATIO 1.3 (1.0-2.1); ALBUMIN 2.9 g/dL (3.5-5.0); ALT/SGPT 76 U/L (9-52); AST/SGOT 38 U/L (14-36); BLOOD UREA NITROGEN 26 mg/dL (7-17); CALCIUM 8.2 mg/dl (8.6-10.4); GFR NON-AFRICAN AMERICAN 56
--- NOTE | 2018-09-08 12:38 | PCM.PYCHPN ---
Psychiatric Progress Note - Psychiatric Progress Note Patient seen today, length of contact: 16 min Patient Chief Complaint: "I am better" Problems Identified/Issues Discussed: The pt is seen, chart reviewed, case discussed with staff. Support and psychoeducation given. Pt is improving slowly and needs more time, still has ongoing symptoms. No SEs from medications, risks discussed. Zoloft to be increased Psych will sign off Medication Change: Yes (Increase zoloft) Medical Record Reviewed: Yes Mental Status Examination - Cognitive Function Orientation: Person, Place, Situation, Time Memory: Intact Attention: WNL Concentration: Poor Association: WNL Fund of Knowledge: WNL - Mood Mood: Depressed, Anxious - Affect Affect: Constricted, Other (intense) - Speech Speech: Appropriate - Formal Thought Process Formal Thought Process: No Impairment - Suicidal Ideation Suicidal Ideation: No - Homicidal Ideation Homicidal Ideation: No Goal/Treatment Plan - Goal/Treatment Plan Need for Continued Stay: Discharge may exacerbated symptoms, Severe functional impairment Progress Toward Problem(s) and Goals/Treatment Plan: Psychoeducation Supportive therapy, group therapy, individual therapy Trazodone for sleep Gabapentin for pain Continue diazepam but decrease and stop later Zoloft for depression - slowly up to 100mg/d
--- NOTE | 2018-09-08 12:48 | PN ---
DATE: 09/08/2018 LOCATION: 553, bed A. SUBJECTIVE: This 63-year-old female seen and examined in rounds with a complaint of midepigastric lower abdominal pain as well as right knee pain which she had been on immobilizer with mid thoracic pain, on and off, but no actual chest pain, palpitation or evidence of active GI bleeding. No reported chills or fever. The entire chart is reviewed including but not limited to the most recent lab and radiology study results, current and the previous medication list, current and the previous medical events. Case discussed at length with Dr. Gutierres as well as all the medical staff in the floor. This case discussed at length with the biliary surgical coder. Today's lab results showed blood glucose level of 210. However, the patient still have low hemoglobin and hematocrit with increased AST and ALT with low albumin, low total protein as well as low CO2 content with evidence of hypochromic microcytic anemia. Still on BiPAP during the night. PHYSICAL EXAMINATION: GENERAL: A 63-year-old female. VITAL SIGNS: Afebrile with pulse of 94, respiratory rate 20 to 22, blood pressure 150/84. HEENT: Showed pale dry oral mucous membrane. Nonicteric sclerae. LUNGS: Few scattered crepitation. Decreased air entry at bases. HEART: Positive S1 and S2. ABDOMEN: Soft. Bowel sounds are present with mild generalized tenderness. No mass or organomegaly. No rebound tenderness or guarding. RECTAL: The patient refused. EXTREMITIES: Without significant edema, clubbing or cyanosis. IMPRESSION: 1. Recurrent pseudomembranous colitis. 2. 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 3. Prerenal azotemia with dehydration and elevated BUN and creatinine. 4. Known history of poorly controlled diabetes mellitus, hypertension, fibromyalgia, congestive heart failure with hypothyroidism. 5. Reported history of deep venous thrombosis with pulmonary embolism. 6. Elevated CEA level. The possibility of lower gastrointestinal tract occult malignancy was raised. 7. Abnormal liver function test, most likely secondary to infectious process. SUGGESTIONS: 1. Agree with your plan. 2. Continue current management with surgical reevaluation. 3. The patient will need CAT scan guided needle biopsy of the pancreatic lesion versus ERCP with brushing of the main pancreatic duct, to be discussed with the surgical coder on the case. Cara Piedra MD [facility] # [id number]
[2018-09-08] MEDS: Fluticasone-Vilanterol 100/25mcg Diskus INH SCH (13:08)
[2018-09-08] MEDS ORDERED: Potassium Chloride 20 mEq ER Tab PO ONE (14:27)
--- NOTE | 2018-09-08 14:55 | CP.PCM.PN ---
Subjective - Date & Time of Evaluation Date of Evaluation: 09/08/18 Time of Evaluation: 14:54 - Subjective Subjective: Nephrology Consultation Note: Assessment: Stable Acute Kidney Injury (N17.9) likely due to hypotension/sepsis/renal hypoperfusion as also evident by concomitant abnormal AST/ALT: IMPROVING Anemia hyponatremia GPC sepsis hypomagnesemia DM, HTN dCHF, DVT/PE s/p IVC filter, gout, hypothyroidism hyperlipidemia fibromyalgias depression/anxiety COPD Adrenal Insuff C.diff colitis pancreatic mass ? malignancy Plan No acute need for renal replacement therapy at this time. Hypertension control with meds as ordered. Maintain hemodynamics stable. Avoid hypotension. Patient not on ACEI/ARB due to recent KARMA. can resume if BP high Monitor Input/Output, daily weights and renal function with basic metabolic panel can resume lasix from renal perspective supplement lytes as needed Check urine analysis, spot protein/creatinine, albumin/creatinine ratio, renal sonogram Anemia work up with TSAT/Ferritin/Vitamin B12/folate, serum protein electrophoresis with immunofixation, serum free light chain assay (Seagraves/Lambda) Dose meds/antibiotics for improved GFR. Glycemic control Further work up/management as per primary team Thanks for allowing me to participate in care of your patient. Will follow patient with you. Please call if any Qs. had d/w team Dr Robert Lam Office: [phone] Chief Complaint; fever Reason for consult: Acute Kidney Injury HPI: Pt is a 63 F with hx of diabetes Mellitus ( years), hypertension (years) dCHF, DVT/PE s/p IVC filter, gout, hypothyroidism hyperlipidemia fibromyalgias depression/amxiety COPD presented with complaints of fever and cough, admitted for KARMA and ? COPD exacerbation Denies OTC/herbal meds or NSAIDs No recent iodinated contrast exposure. Noted obvious episodes of low BP (88/46). ROS: Cardiovascular: No chest pain. Pulmonary: better shortness of breath Gastrointestinal: better abdominal pain No nausea. No vomiting. Genitourinary: No pain while urinating. Denies blood in urine. All other negative except as mentioned in HPI Physical Examination: General Appearance: comfortable, in no acute respiratory distress, co-operative . Vitals reviewed and noted as below Head; Atraumatic, normocephalic ENT: no ulcers no thrush. Tongue is midline/dry. Oropharynx: no rash or ulcers. EYES: Pupils are equal, round and reactive to light accommodation. Eye muscles and extraocular movement intact. Sclera is anicteric. Neck; supple no lymphadenopathy, no thyromegaly or bruit Lungs: Normal respiratory rate/effort. Breath sounds bilateral equal and few basal crackle Heart: normal rate. s1s2 normal. No rub or gallop. Extremities: 1+ edema. No varicose veins Neurological: Patient is alert, awake and oriented to person, place and time. No focal deficit. Strength bilateral appropriate and equal Skin: Warm and dry. Normal turgor. No rash. Palpitation: Normal elasticity for age Abdomen: Abdomen is soft. Bowel sounds +. There is no abdominal tenderness, no guarding/rigidity no organomegaly Psych: limited insight and normal affect/mood MSK: no joint tenderness or swelling. Digits and nails normal, no deformity. Rt leg in splint : kidney or bladder not palpable Labs/imaging reviewed. Past medical history, past surgical history, family history, social history, allergy reviewed and noted as below Family hx: no hx of CKD. Rest non-contributory Hep B/C neg UA no protein Objective - Vital Signs/Intake and Output Vital Signs (last 24 hours): Temp Pulse Resp BP Pulse Ox 98.4 F 98 H 20 134/71 99 09/08/18 07:00 09/08/18 07:50 09/08/18 07:00 09/08/18 10:12 09/08/18 07:00 Intake and Output: 09/08/18 09/08/18 06:59 18:59 Output Total 800 Balance -800 - Medications Medications: Current Medications Acetaminophen (Tylenol 325mg Tab) 650 mg PO Q6 PRN PRN Reason: Pain, moderate (4-7) Albuterol/Ipratropium (Duoneb 3 Mg/0.5 Mg (3 Ml) Ud) 3 ml IH RQ4 PRN PRN Reason: Shortness of Breath Last Admin: 09/05/18 14:00 Dose: 3 ml Colchicine (Colocrys) 0.6 mg PO BID [facility] Last Admin: 09/08/18 10:14 Dose: 0.6 mg Cyclobenzaprine HCl (Flexeril) 5 mg PO TID [facility] Last Admin: 09/08/18 10:15 Dose: 5 mg Dextrose (Dextrose 50% Inj) 0 ml IV STAT PRN; Protocol PRN Reason: Hypoglycemia Protocol Dextrose (Glutose 15) 0 gm PO ONCE PRN; Protocol PRN Reason: Hypoglycemia Protocol Diazepam (Valium) 5 mg PO BID [facility] Last Admin: 09/08/18 10:12 Dose: 5 mg Dicyclomine HCl (Bentyl) 20 mg PO TID [facility] Last Admin: 09/08/18 10:14 Dose: 20 mg Diltiazem HCl (Cardizem Cd) 180 mg PO BID [facility] Last Admin: 09/08/18 10:13 Dose: 180 mg Ergocalciferol (Drisdol 50,000 Intl Units Cap) 1 cap PO Q7D [facility] Last Admin: 09/03/18 11:35 Dose: 1 cap Fluticasone/Vilanterol (Breo Ellipta 100-25 Mcg Inh) 1 puff INH RQ24 [facility] Last Admin: 09/08/18 13:08 Dose: 1 puff Furosemide (Lasix) 20 mg PO DAILY [facility] Last Admin: 09/08/18 10:12 Dose: 20 mg Gabapentin (Neurontin) 300 mg PO HS [facility] Last Admin: 09/07/18 22:24 Dose: 300 mg Glipizide (Glucotrol) 10 mg PO BID [facility] Last Admin: 09/08/18 10:12 Dose: 10 mg Glucagon (Glucagen Diagnostic Kit) 0 mg IM STAT PRN; Protocol PRN Reason: Hypoglycemia Protocol Hydrocortisone (Cortef) 20 mg PO TID [facility] Last Admin: 09/08/18 10:14 Dose: 20 mg Metronidazole (Flagyl) 500 mg in 100 mls @ 100 mls/hr IVPB Q8H [facility]; Protocol Last Admin: 09/08/18 10:21 Dose: 100 mls/hr Azithromycin 500 mg/ Sodium (Chloride) 250 mls @ 167 mls/hr IVPB Q24H [facility]; Protocol Last Admin: 09/04/18 01:00 Dose: 167 mls/hr Dextrose (Dextrose 5% In Water 1000 Ml) 1,000 mls @ 0 mls/hr IV .Q0M PRN; Protocol PRN Reason: Hypoglycemia Protocol Insulin Aspart (Novolog) 14 unit SC AC [facility] Last Admin: 09/08/18 12:30 Dose: 14 u Insulin Aspart (Novolog) 0 unit SC ACHS [facility] Last Admin: 09/08/18 12:18 Dose: Not Given Insulin Glargine (Lantus) 30 unit SC [facility] Levothyroxine Sodium (Synthroid) 100 mcg PO 0630 [facility] Last Admin: 09/08/18 10:12 Dose: 100 mcg Magnesium Oxide (Mag-Ox) 400 mg PO BID [facility] Last Admin: 09/08/18 10:13 Dose: 400 mg Ondansetron HCl (Zofran Inj) 4 mg IVP Q8 PRN PRN Reason: Nausea/Vomiting Oxycodone/Acetaminophen (Percocet 5/325 Mg Tab) 2 tab PO Q6H PRN PRN Reason: Pain, severe (8-10) Stop: 09/09/18 13:17 Last Admin: 09/08/18 13:43 Dose: 2 tab Pantoprazole Sodium (Protonix Ec Tab) 40 mg PO DAILY [facility] Last Admin: 09/08/18 10:12 Dose: 40 mg Rivaroxaban (Xarelto) 20 mg PO DAILY [facility] Last Admin: 09/08/18 10:13 Dose: 20 mg Rosuvastatin Calcium (Crestor) 10 mg PO [facility] Last Admin: 09/07/18 22:24 Dose: 10 mg Saccharomyces Boulardii (Florastor) 250 mg PO Q12 [facility] Last Admin: 09/08/18 10:12 Dose: 250 mg Sertraline HCl (Zoloft) 25 mg PO DAILY [facility] Last Admin: 09/08/18 10:12 Dose: 25 mg Sitagliptin Phosphate (Januvia) 100 mg PO DAILY [facility] Last Admin: 09/08/18 10:12 Dose: 100 mg Sucralfate (Carafate Oral Susp) 1 gm PO ACBHS [facility] Last Admin: 09/08/18 07:29 Dose: 1 gm Trazodone HCl (Desyrel) 50 mg PO HS [facility] Last Admin: 09/07/18 22:25 Dose: 50 mg Vancomycin HCl (Vancocin 250mg Capsule) 250 mg PO QID [facility] Last Admin: 09/08/18 10:13 Dose: 250 mg - Labs Labs: 09/08/18 11:16 09/08/18 11:16 PT 21.0 SECONDS (9.7-12.2) H 09/05/18 16:44 INR 1.9 09/05/18 16:44 APTT 28 SECONDS (21-34) 09/05/18 16:44
--- NOTE | 2018-09-08 19:23 | CP.PCM.PN ---
Subjective - Date & Time of Evaluation Date of Evaluation: 09/08/18 Time of Evaluation: 08:00 - Subjective Subjective: feels better less diarrhea cont rx for 10-14 days Objective - Vital Signs/Intake and Output Vital Signs (last 24 hours): Temp Pulse Resp BP Pulse Ox 97.5 F L 101 H 20 130/76 99 09/08/18 16:00 09/08/18 16:00 09/08/18 16:00 09/08/18 16:00 09/08/18 16:00 - Medications Medications: Current Medications Acetaminophen (Tylenol 325mg Tab) 650 mg PO Q6 PRN PRN Reason: Pain, moderate (4-7) Albuterol/Ipratropium (Duoneb 3 Mg/0.5 Mg (3 Ml) Ud) 3 ml IH RQ4 PRN PRN Reason: Shortness of Breath Last Admin: 09/05/18 14:00 Dose: 3 ml Colchicine (Colocrys) 0.[address] [facility] Last Admin: 09/08/18 10:14 Dose: 0.6 mg Cyclobenzaprine HCl (Flexeril) [address] [facility] Last Admin: 09/08/18 14:54 Dose: 5 mg Dextrose (Dextrose 50% Inj) 0 ml IV STAT PRN; Protocol PRN Reason: Hypoglycemia Protocol Dextrose (Glutose 15) 0 gm PO ONCE PRN; Protocol PRN Reason: Hypoglycemia Protocol Diazepam (Valium) [address] [facility] Last Admin: 09/08/18 10:12 Dose: 5 mg Dicyclomine HCl (Bentyl) [address] [facility] Last Admin: 09/08/18 14:56 Dose: Not Given Diltiazem HCl (Cardizem Cd) [address] [facility] Last Admin: 09/08/18 10:13 Dose: 180 mg Ergocalciferol (Drisdol 50,000 Intl Units Cap) [address] [facility] Last Admin: 09/03/18 11:35 Dose: 1 cap Fluticasone/Vilanterol (Breo Ellipta 100-25 Mcg Inh) [address] [facility] Last Admin: 09/08/18 13:08 Dose: 1 puff Furosemide (Lasix) [address] [facility] Last Admin: 09/08/18 10:12 Dose: 20 mg Gabapentin (Neurontin) [address] [facility] Last Admin: 09/07/18 22:24 Dose: 300 mg Glipizide (Glucotrol) [address] [facility] Last Admin: 09/08/18 10:12 Dose: 10 mg Glucagon (Glucagen Diagnostic Kit) 0 mg IM STAT PRN; Protocol PRN Reason: Hypoglycemia Protocol Hydrocortisone (Cortef) [address] [facility] Last Admin: 09/08/18 14:55 Dose: 20 mg Azithromycin 500 mg/ Sodium (Chloride) 250 mls @ 167 mls/hr IVPB Q24H [facility]; Protocol Last Admin: 09/04/18 01:00 Dose: 167 mls/hr Dextrose (Dextrose 5% In Water 1000 Ml) 1,000 mls @ 0 mls/hr IV .Q0M PRN; Protocol PRN Reason: Hypoglycemia Protocol Insulin Aspart (Novolog) [address] [facility] Last Admin: 09/08/18 12:30 Dose: 14 u Insulin Aspart (Novolog) [address] [facility] Last Admin: 09/08/18 17:54 Dose: Not Given Insulin Glargine (Lantus) 30 unit SC [facility] Levothyroxine Sodium (Synthroid) [address] [facility] Last Admin: 09/08/18 10:12 Dose: 100 mcg Magnesium Oxide (Mag-Ox) [address] [facility] Last Admin: 09/08/18 10:13 Dose: 400 mg Metronidazole (Flagyl) [address] [facility] Ondansetron HCl (Zofran Inj) 4 mg IVP Q8 PRN PRN Reason: Nausea/Vomiting Oxycodone/Acetaminophen (Percocet 5/325 Mg Tab) 2 tab PO Q6H PRN PRN Reason: Pain, severe (8-10) Stop: 09/09/18 13:17 Last Admin: 09/08/18 13:43 Dose: 2 tab Pantoprazole Sodium (Protonix Ec Tab) [address] [facility] Last Admin: 09/08/18 10:12 Dose: 40 mg Rivaroxaban (Xarelto) [address] [facility] Last Admin: 09/08/18 10:13 Dose: 20 mg Rosuvastatin Calcium (Crestor) 10 mg PO [facility] Last Admin: 09/07/18 22:24 Dose: 10 mg Saccharomyces Boulardii (Florastor) [address] [facility] Last Admin: 09/08/18 10:12 Dose: 250 mg Sertraline HCl (Zoloft) 25 mg PO DAILY [facility] Last Admin: 09/08/18 10:12 Dose: 25 mg Sitagliptin Phosphate (Januvia) [address] [facility] Last Admin: 09/08/18 10:12 Dose: 100 mg Sucralfate (Carafate Oral Susp) 1 gm PO ACBHS [facility] Last Admin: 09/08/18 07:29 Dose: 1 gm Trazodone HCl (Desyrel) [address] [facility] Last Admin: 09/07/18 22:25 Dose: 50 mg Vancomycin HCl (Vancocin 250mg Capsule) [address] [facility] Last Admin: 09/08/18 14:54 Dose: 250 mg - Labs Labs: 09/08/18 11:16 09/08/18 11:16 PT 21.0 SECONDS (9.7-12.2) H 09/05/18 16:44 INR 1.9 09/05/18 16:44 APTT 28 SECONDS (21-34) 09/05/18 16:44 Assessment and Plan (1) COPD (chronic obstructive pulmonary disease) Status: Acute (2) Closed fracture of right proximal tibia Status: Acute (3) Fever Status: Acute (4) Hyperglycemia Status: Acute (5) CHF (congestive heart failure) Status: Chronic (6) Diabetes mellitus Status: Chronic (7) HTN (hypertension) Status: Chronic (8) History of DVT (deep vein thrombosis) Status: Chronic (9) History of pulmonary embolus (PE) Status: Chronic (10) Hypothyroid Status: Chronic (11) SVT (supraventricular tachycardia) Status: Chronic (12) Sepsis Status: Suspected
[2018-09-08] MEDS ORDERED: (Lantus) Insulin Glargine, Recombinant SC SCH (22:00)
[2018-09-09] MEDS: Sucralfate 1 gm/10 ml Oral Susp UD PO SCH ×2 (06:40→21:38)
[2018-09-09] MEDS: Levothyroxine 100 MCG TAB PO SCH (06:41)
--- NOTE | 2018-09-09 06:50 | CP.PCM.PN ---
Subjective - Date & Time of Evaluation Date of Evaluation: 09/09/18 Time of Evaluation: 06:32 - Subjective Subjective: Dariel Slaughter D.O. PGY-3, Internal Medicine Resident, Endocrinology Progress Note 63 year old female with a PMH of COPD, type 2 IDDM, anxiety, depression, DVT, PE, OA who presented with fever. Endocrinology consultation requested for hyperglycemic accelerations. Patient was seen and examined at bedside. Resting comfortably in bed with BIPAP. No acute overnight events. Objective - Vital Signs/Intake and Output Vital Signs (last 24 hours): Temp Pulse Resp BP Pulse Ox 98.1 F 97 H 18 153/90 H 98 09/09/18 00:00 09/09/18 00:00 09/09/18 00:00 09/09/18 00:00 09/09/18 00:00 - Medications Medications: Current Medications Acetaminophen (Tylenol 325mg Tab) 650 mg PO Q6 PRN PRN Reason: Pain, moderate (4-7) Albuterol/Ipratropium (Duoneb 3 Mg/0.5 Mg (3 Ml) Ud) 3 ml IH RQ4 PRN PRN Reason: Shortness of Breath Last Admin: 09/05/18 14:00 Dose: 3 ml Colchicine (Colocrys) 0.6 mg PO BID [facility] Last Admin: 09/08/18 19:22 Dose: 0.6 mg Cyclobenzaprine HCl (Flexeril) 5 mg PO TID [facility] Last Admin: 09/08/18 19:22 Dose: 5 mg Dextrose (Dextrose 50% Inj) 0 ml IV STAT PRN; Protocol PRN Reason: Hypoglycemia Protocol Dextrose (Glutose 15) 0 gm PO ONCE PRN; Protocol PRN Reason: Hypoglycemia Protocol Diazepam (Valium) 5 mg PO BID [facility] Last Admin: 09/08/18 19:21 Dose: 5 mg Dicyclomine HCl (Bentyl) 20 mg PO TID [facility] Last Admin: 09/08/18 19:23 Dose: 20 mg Diltiazem HCl (Cardizem Cd) 180 mg PO BID [facility] Last Admin: 09/08/18 19:22 Dose: 180 mg Ergocalciferol (Drisdol 50,000 Intl Units Cap) 1 cap PO Q7D [facility] Last Admin: 09/03/18 11:35 Dose: 1 cap Fluticasone/Vilanterol (Breo Ellipta 100-25 Mcg Inh) 1 puff INH RQ24 [facility] Last Admin: 09/08/18 13:08 Dose: 1 puff Furosemide (Lasix) 20 mg PO DAILY [facility] Last Admin: 09/08/18 10:12 Dose: 20 mg Gabapentin (Neurontin) 300 mg PO HS [facility] Last Admin: 09/08/18 22:21 Dose: 300 mg Glipizide (Glucotrol) 10 mg PO BID [facility] Last Admin: 09/08/18 19:21 Dose: 10 mg Glucagon (Glucagen Diagnostic Kit) 0 mg IM STAT PRN; Protocol PRN Reason: Hypoglycemia Protocol Hydrocortisone (Cortef) 20 mg PO TID [facility] Last Admin: 09/08/18 19:22 Dose: 20 mg Azithromycin 500 mg/ Sodium (Chloride) 250 mls @ 167 mls/hr IVPB Q24H [facility]; Protocol Last Admin: 09/04/18 01:00 Dose: 167 mls/hr Dextrose (Dextrose 5% In Water 1000 Ml) 1,000 mls @ 0 mls/hr IV .Q0M PRN; Protocol PRN Reason: Hypoglycemia Protocol Insulin Aspart (Novolog) 14 unit SC AC [facility] Last Admin: 09/08/18 19:23 Dose: 14 u Insulin Aspart (Novolog) 0 unit SC ACHS [facility] Last Admin: 09/08/18 22:21 Dose: Not Given Insulin Glargine (Lantus) 30 unit SC HS [facility] Last Admin: 09/08/18 22:22 Dose: 30 unit Levothyroxine Sodium (Synthroid) 100 mcg PO 0630 [facility] Last Admin: 09/09/18 06:41 Dose: 100 mcg Magnesium Oxide (Mag-Ox) 400 mg PO BID [facility] Last Admin: 09/08/18 19:21 Dose: 400 mg Metronidazole (Flagyl) 500 mg PO Q8 [facility] Last Admin: 09/08/18 22:21 Dose: 500 mg Ondansetron HCl (Zofran Inj) 4 mg IVP Q8 PRN PRN Reason: Nausea/Vomiting Oxycodone/Acetaminophen (Percocet 5/325 Mg Tab) 2 tab PO Q6H PRN PRN Reason: Pain, severe (8-10) Stop: 09/09/18 13:17 Last Admin: 09/08/18 22:20 Dose: 2 tab Pantoprazole Sodium (Protonix Ec Tab) 40 mg PO DAILY [facility] Last Admin: 09/08/18 10:12 Dose: 40 mg Rivaroxaban (Xarelto) 20 mg PO DAILY [facility] Last Admin: 09/08/18 10:13 Dose: 20 mg Rosuvastatin Calcium (Crestor) 10 mg PO HS [facility] Last Admin: 09/08/18 22:21 Dose: 10 mg Saccharomyces Boulardii (Florastor) 250 mg PO Q12 [facility] Last Admin: 09/08/18 22:22 Dose: 250 mg Sertraline HCl (Zoloft) 25 mg PO DAILY [facility] Last Admin: 09/08/18 10:12 Dose: 25 mg Sitagliptin Phosphate (Januvia) 100 mg PO DAILY [facility] Last Admin: 09/08/18 10:12 Dose: 100 mg Sucralfate (Carafate Oral Susp) 1 gm PO ACBHS [facility] Last Admin: 09/09/18 06:40 Dose: 1 gm Trazodone HCl (Desyrel) 50 mg PO HS [facility] Last Admin: 09/08/18 22:21 Dose: 50 mg Vancomycin HCl (Vancocin 250mg Capsule) 250 mg PO QID [facility] Last Admin: 09/08/18 22:23 Dose: 250 mg - Labs Labs: 09/08/18 11:16 09/08/18 11:16 PT 21.0 SECONDS (9.7-12.2) H 09/05/18 16:44 INR 1.9 09/05/18 16:44 APTT 28 SECONDS (21-34) 09/05/18 16:44 - Constitutional Appears: No Acute Distress, Chronically lll, Obese - Head Exam Head Exam: ATRAUMATIC, NORMOCEPHALIC, wearing BIPAP - Eye Exam Eye Exam: EOMI. absent: Scleral icterus - ENT Exam Additional comments: BIPAP on - Neck Exam Neck Exam: Normal Inspection - Respiratory Exam Respiratory Exam: Wheezes - Cardiovascular Exam Cardiovascular Exam: +S1, +S2 - Neurological Exam Neurological Exam: Alert, Awake - Skin Skin Exam: Dry, Warm Assessment and Plan - Assessment and Plan (Free Text) Assessment: 63 year old female with a PMH of COPD, type 2 IDDM, anxiety, depression, DVT, PE, OA who presented with fever. Endocrinology consultation requested for hyperglycemic accelerations. Plan: 1. Uncontrolled type 2 IDDM in the setting of acute illness Likely worsening 2/2 steroid causing increased insulin resistance BG last 24 hrs 94-246, continues to slowly improve Continue januvia 100mg PO QD Increased lantus from 26 to 30 units SC HS Maintain aspart at 14 units SC AC Continue glipizide 10mg PO BID 2. Hypothyroidism TSH slightly low but T4 within normal limits Will continue with levothyroxine 100mcg PO QD Patient was seen and examined and case to be discussed with attending physician.
--- NOTE | 2018-09-09 07:00 | PN ---
DATE: 09/07/2018 ENDOCRINOLOGY FOLLOWUP NOTE LOCATION: Room 553. SUBJECTIVE: This is a 63-year-old female with recent uncontrolled type 2 insulin-requiring diabetes presenting here with fever, abdominal pain and loose, watery diarrhea, and is now being followed closely for metabolic management. She also presented here with acute exacerbation of COPD and given IV steroids initially on admission as noted. LABORATORY DATA: Her glycemic levels today are fluctuating, ranging from 123 to 206 and 366 mg/dL. Her A1c is 9% which is elevated and indicative of suboptimal metabolic control of her diabetic condition. Her chemistry showed BUN of 20, sodium 139, potassium 3.5, chloride 112, CO2 of 21, glucose 187, and creatinine of 1.1. ASSESSMENT AND PLAN: So, at this time, we will modify once again her basal and bolus insulin regimen and increase the Lantus to 26 units subcutaneous at bedtime daily to start tonight. We will titrate the prandial insulin with NovoLog to be continued at 14 units subcutaneous t.i.d. before meals to start today as ordered. We will continue the low dose correction scale using NovoLog insulin to obviate hypoglycemia and detailed orders have been given. We will obtain serial chemistries and supplement accordingly as needed. We will follow. Neeru Dickson MD
--- NOTE | 2018-09-09 07:30 | CP.PCM.PN ---
Subjective - Date & Time of Evaluation Date of Evaluation: 09/09/18 Time of Evaluation: 07:30 - Subjective Subjective: Progress note for Dr. Gutierres Patient was seen and examined at bedside in no acute distress. Patient reports she still has left sided abdominal pain but pain medication has helped. She denies chest pain, palpitations, nausea, vomiting, fevers, headaches, dizziness, dysuria. The patient is alert and orientedx3. Objective - Vital Signs/Intake and Output Vital Signs (last 24 hours): Temp Pulse Resp BP Pulse Ox 98.1 F 97 H 18 153/90 H 98 09/09/18 00:00 09/09/18 00:00 09/09/18 00:00 09/09/18 00:00 09/09/18 00:00 Intake and Output: 09/09/18 09/09/18 06:59 18:59 Output Total 200 Balance -200 - Medications Medications: Current Medications Acetaminophen (Tylenol 325mg Tab) 650 mg PO Q6 PRN PRN Reason: Pain, moderate (4-7) Albuterol/Ipratropium (Duoneb 3 Mg/0.5 Mg (3 Ml) Ud) 3 ml IH RQ4 PRN PRN Reason: Shortness of Breath Last Admin: 09/05/18 14:00 Dose: 3 ml Colchicine (Colocrys) 0.6 mg PO BID [facility] Last Admin: 09/08/18 19:22 Dose: 0.6 mg Cyclobenzaprine HCl (Flexeril) 5 mg PO TID [facility] Last Admin: 09/08/18 19:22 Dose: 5 mg Dextrose (Dextrose 50% Inj) 0 ml IV STAT PRN; Protocol PRN Reason: Hypoglycemia Protocol Dextrose (Glutose 15) 0 gm PO ONCE PRN; Protocol PRN Reason: Hypoglycemia Protocol Diazepam (Valium) 5 mg PO BID [facility] Last Admin: 09/08/18 19:21 Dose: 5 mg Dicyclomine HCl (Bentyl) 20 mg PO TID [facility] Last Admin: 09/08/18 19:23 Dose: 20 mg Diltiazem HCl (Cardizem Cd) 180 mg PO BID [facility] Last Admin: 09/08/18 19:22 Dose: 180 mg Ergocalciferol (Drisdol 50,000 Intl Units Cap) 1 cap PO Q7D [facility] Last Admin: 09/03/18 11:35 Dose: 1 cap Fluticasone/Vilanterol (Breo Ellipta 100-25 Mcg Inh) 1 puff INH RQ24 [facility] Last Admin: 09/08/18 13:08 Dose: 1 puff Furosemide (Lasix) 20 mg PO DAILY [facility] Last Admin: 09/08/18 10:12 Dose: 20 mg Gabapentin (Neurontin) 300 mg PO HS [facility] Last Admin: 09/08/18 22:21 Dose: 300 mg Glipizide (Glucotrol) 10 mg PO BID [facility] Last Admin: 09/08/18 19:21 Dose: 10 mg Glucagon (Glucagen Diagnostic Kit) 0 mg IM STAT PRN; Protocol PRN Reason: Hypoglycemia Protocol Hydrocortisone (Cortef) 20 mg PO TID [facility] Last Admin: 09/08/18 19:22 Dose: 20 mg Azithromycin 500 mg/ Sodium (Chloride) 250 mls @ 167 mls/hr IVPB Q24H [facility]; Protocol Last Admin: 09/04/18 01:00 Dose: 167 mls/hr Dextrose (Dextrose 5% In Water 1000 Ml) 1,000 mls @ 0 mls/hr IV .Q0M PRN; Protocol PRN Reason: Hypoglycemia Protocol Insulin Aspart (Novolog) 14 unit SC AC [facility] Last Admin: 09/08/18 19:23 Dose: 14 u Insulin Aspart (Novolog) 0 unit SC ACHS [facility] Last Admin: 09/08/18 22:21 Dose: Not Given Insulin Glargine (Lantus) 30 unit SC [facility] Last Admin: 09/08/18 22:22 Dose: 30 unit Levothyroxine Sodium (Synthroid) 100 mcg PO 0630 [facility] Last Admin: 09/09/18 06:41 Dose: 100 mcg Magnesium Oxide (Mag-Ox) 400 mg PO BID [facility] Last Admin: 09/08/18 19:21 Dose: 400 mg Metronidazole (Flagyl) 500 mg PO Q8 [facility] Last Admin: 09/08/18 22:21 Dose: 500 mg Ondansetron HCl (Zofran Inj) 4 mg IVP Q8 PRN PRN Reason: Nausea/Vomiting Oxycodone/Acetaminophen (Percocet 5/325 Mg Tab) 2 tab PO Q6H PRN PRN Reason: Pain, severe (8-10) Stop: 09/09/18 13:17 Last Admin: 09/08/18 22:20 Dose: 2 tab Pantoprazole Sodium (Protonix Ec Tab) 40 mg PO DAILY [facility] Last Admin: 09/08/18 10:12 Dose: 40 mg Rivaroxaban (Xarelto) 20 mg PO DAILY [facility] Last Admin: 09/08/18 10:13 Dose: 20 mg Rosuvastatin Calcium (Crestor) 10 mg PO HS [facility] Last Admin: 09/08/18 22:21 Dose: 10 mg Saccharomyces Boulardii (Florastor) 250 mg PO Q12 [facility] Last Admin: 09/08/18 22:22 Dose: 250 mg Sertraline HCl (Zoloft) 25 mg PO DAILY [facility] Last Admin: 09/08/18 10:12 Dose: 25 mg Sitagliptin Phosphate (Januvia) 100 mg PO DAILY [facility] Last Admin: 09/08/18 10:12 Dose: 100 mg Sucralfate (Carafate Oral Susp) 1 gm PO ACBHS [facility] Last Admin: 09/09/18 06:40 Dose: 1 gm Trazodone HCl (Desyrel) 50 mg PO [facility] Last Admin: 09/08/18 22:21 Dose: 50 mg Vancomycin HCl (Vancocin 250mg Capsule) 250 mg PO QID [facility] Last Admin: 09/08/18 22:23 Dose: 250 mg - Labs Labs: 09/08/18 11:16 09/08/18 11:16 PT 21.0 SECONDS (9.7-12.2) H 09/05/18 16:44 INR 1.9 09/05/18 16:44 APTT 28 SECONDS (21-34) 09/05/18 16:44 - Additional Findings Additional findings: - Constitutional Appears: No Acute Distress, Chronically Ill - Head Exam Head Exam: NORMAL INSPECTION - Eye Exam Eye Exam: EOMI, Normal appearance - ENT Exam ENT Exam: Mucous Membranes Moist - Respiratory Exam Respiratory Exam: NORMAL BREATHING PATTERN. absent: Rales, Rhonchi, Wheezes, Respiratory Distress - Cardiovascular Exam Cardiovascular Exam: REGULAR RHYTHM, +S1, +S2 - GI/Abdominal Exam GI & Abdominal Exam: Soft, Normal Bowel Sounds, left sided abdominal pain w/palpation. absent: Distended, Firm - Extremities Exam Extremities Exam: Pedal Edema, Tenderness; RLE-knee immobilizer in place - Neurological Exam Neurological Exam: Alert, Awake, Oriented x3 - Psychiatric Exam Psychiatric exam: Flat Affect - Skin Skin Exam: Dry, Normal Color, Warm Assessment and Plan - Assessment and Plan (Free Text) Plan: C.Difficile Fever, SIRS *Afebrile since admission *Isolation, contact precautions - Febrile at admission, 101.8F. Leukocytosis 12.4, improved to 8.5. No bandemia. - Lactate at admission 1.6; repeat 0.9 on 09/02/18 - ID Consult: Dr. Little --> help appreciated - GI Consult: Dr. Laurent --> help appreciated - CXR: negative for acute pathology - Ordered abdominal US - patient currently refusing - Blood cx: coagulase neg staph - probably contaminated - Urinalysis: negative for infection - Urine cx: negative - C.Diff: positive - Ova/parasites: negative - Stool Culture: negative - Stool leukocytes: negative; stool occult negative - Medications: * Vancomycin 250mg PO QID (active since 09/07/18) * Azithromycin 500mg IV Q24 (active since 09/02/18) * Rocephin 2gm IV Q24h (active since 09/02/18) * Flagyl 500mg IV 18h (active since 09/02/18) * Florastor 250mg PO BID Pancreatic Mass - +Abdominal pain - CEA: 42.5 - CA19-9: 1980 - CA125: 36.2 - Abdomen/Pelvic CT: Heterogeneous hyperdense pancreatic mass measuring approximately 2.7 x 2.5 cm at the pancreatic body/tail. Ectatic dilated pancreatic duct. Additional cystic heterogeneous focus measuring approximately 15 x 14 mm is noted at the superior aspect of the pancreas. Appearance worrisome for malignant neoplasm. Wall thickening involving the 2nd portion of the duodenum of uncertain significance; considerations include infectious, inflamm atory, or malignant etiologies. Correlate clinically and recommend further evaluation with direct visualization if indicated. Small pelvic free fluid. - Surgery consulted, Dr. Bright; help appreciated - Per surgery team, mass appears resectable, however, patient is a not a surgical candidate at this time due to other conditions/comorbities. KARMA Resolved, will continue to monitor - At admission, BUN 44, Cr 3.2 - Nephrology consulted, Dr. Menendez; help appreciated - Avoid nephrotoxic agents - Possibly due to hypotension, sepsis, or renal hypoperfusion - Renal US: Echogenic renal parenchyma the right kidney. Bilateral cortical thinning. Correlate clinically for medical renal disease. Tachycardia - Likely secondary to infection - Cardiology consulted, Dr. Pineda; help appreciated - Increased Cardizem to 180mg PO BID (from 120mg, per Dr. Pineda) - Will continue to monitor Chronic Diastolic Congestive Heart Failure - Stable - Last echo 2016 showed Grade III reversible restrictive diastolic dysfunction, EF 55% - Lasix 20mg PO daily Hypertension - Home medications: * Lisinopril 10mg PO daily (HELD due to KARMA) * Lopressor 50mg PO BID (HELD due to hypotension) * Cardizem 120mg PO daily (HOLD if SBP<100, DBP<60, HR<60) Diabetes Mellitus - Accuchecks, Hypoglycemia protocol - HgA1c 9.3 (01/2018); repeat A1c 9.0 - Insulin sliding scale - Continue home medications: Januvia 100 mg PO daily, Glipizide 10mg PO BID, Gabapentin 300mg PO TID - Novolin 6 units with meals - Lantus 20 units HS - Endocrinology consult. Dr Cam. chu appreciated. Fibromyalgia - Home medication: Diazepam 5mg PO BID - Flexeril 5mg PO TID (Holding parameters- hold if sleeping/sedated, hypotension) - Percocet 5/325mg 2 tab Q6H prn for pain - Gabapentin 300mg PO TID Adrenal Insufficiency - Hydrocortisone 20mg PO TID Hypothyroidism - Continue Synthroid 100mcg PO daily - TSH/Free T4: 9.5/0.30 History of DVT/PE - Continue Xarelto 20mg PO daily Gout - Continue Colchicine Depression - Consulted psychiatry, Dr. Dexter, recs appreciated. - Per psychiatry, Started zoloft (will slowly increased to 100mg po daily), trazodone for sleep, will taper off of diazepam. COPD - Continue home medication: Breo - Duonebs Q4h prn Closed fracture of right proximal tibia - Orthopedic surgery consulted, Dr. Hernandez; help appreciated - Per ortho: continue well padded knee immobilizer; non operative; recommends PT/OT, NWB, VTE proph, and to f/u with Dr. Hernandez 1-2 weeks upon d/c Prophylactic Measures - Protonix 40mg PO daily, Probiotics - Xarelto 20mg PO daily - PT/OT - Palliative care consulted to discuss goals of care - Case management consulted for discharge planning to [facility] Case discussed and patient seen with Dr. Nenita Preston PGY-2
[2018-09-09 07:35] LABS: BASO # 0.1 K/uL (0.0-0.2); BASO % 0.4 % (0.0-2.0); EOS # 0.1 K/uL (0.0-0.7); EOS % 0.4 % (0.0-4.0); HEMOGLOBIN 8.1 g/dL (11.0-16.0); LYMPH # 2.9 K/uL (1.0-4.3); LYMPH % 21.8 % (20.0-40.0); MEAN CELL VOLUME 75.7 fL (81.0-99.0); MEAN CORPUSCULAR HEMOGLOBIN 22.6 pg (27.0-31.0); MEAN CORPUSCULAR HGB CONC 29.9 g/dL (33.0-37.0); MEAN PLATELET VOLUME 8.6 fL (7.2-11.7); MONO # 1.3 K/uL (0.0-0.8); MONO % 9.7 % (0.0-10.0); NEUT % 67.7 % (50.0-75.0); RBC 3.58 Mil/uL (3.80-5.20); RED CELL DISTRIBUTION WIDTH 19.9 % (11.5-14.5); WHITE BLOOD COUNT 13.3 K/uL (4.8-10.8)
--- NOTE | 2018-09-09 07:37 | PN ---
DATE: 09/08/2018 ENDOCRINOLOGY FOLLOWUP NOTE LOCATION: Room 553. SUBJECTIVE: This is a 63-year-old female with recent acute exacerbation of COPD and given IV steroids initially with supervening hyperglycemic accelerations as noted thereof. Her glycemic levels were fluctuating and her glucose levels overnight have ranged from 210 to 246 mg/dL. It was 227 at bedtime last night. LABORATORY DATA: Her chemistry showed a BUN of 26, sodium 138, potassium 3.6, chloride 110, CO2 of 21, glucose 206 and creatinine 1. Her A1c is 9% which is elevated and indicative of suboptimal metabolic control of her diabetic condition even prior to this admission. ASSESSMENT: This is a 63-year-old female with uncontrolled and decompensated type 2 insulin requiring diabetes, now being followed closely for metabolic management . She also has concomitant acute exacerbation of chronic obstructive pulmonary disease with an incidental finding of pancreatic mass and currently has been following further gastrointestinal workup at this time also because of persistent abdominal pain and distention. PLAN OF MANAGEMENT: We will modify once again her basal and bolus insulin regimen and we will increase her basal insulin to Lantus given 30 units subcu at bedtime daily to start tonight. We will continue the low dose correction scale using Novolog insulin to obviate hypoglycemia and details of . Moreover, we will increase her Novolog given has prandial insulin to 14 units t.i.d. before meals prescribed today as ordered. We will continue to order hyperglycemic therapy given as Glipizide 10 mg b.i.d. and Januvia 100 mg once daily. We will obtain serial chemistries and follow closely. We will follow. Neeru Dickson MD
[2018-09-09] MEDS: Fluticasone-Vilanterol 100/25mcg Diskus INH SCH (07:45)
[2018-09-09 08:06] LABS: ALB/GLOB RATIO 1.2 (1.0-2.1); ALBUMIN 2.7 g/dL (3.5-5.0); ALT/SGPT 63 U/L (9-52); AST/SGOT 35 U/L (14-36); BLOOD UREA NITROGEN 26 mg/dL (7-17); CALCIUM 8.3 mg/dl (8.6-10.4); GFR NON-AFRICAN AMERICAN 56
[2018-09-09] MEDS: (Novolog) Insulin Aspart, Recombinant 100 u/ml 10 ml vial SC SCH ×5 (08:31→21:40)
--- NOTE | 2018-09-09 09:12 | CP.PCM.PN ---
Subjective - Date & Time of Evaluation Date of Evaluation: 09/09/18 Time of Evaluation: 08:30 - Subjective Subjective: Patient seen and examined at bedside comfortable. Right knee pain continues to improve. Knee imm and RLE padding intact, continues NWB RLE. Patient found to have pancreatic mass on CT. SOB due to COPD. Objective - Vital Signs/Intake and Output Vital Signs (last 24 hours): Temp Pulse Resp BP Pulse Ox 98.0 F 105 H 20 150/82 97 09/09/18 07:00 09/09/18 08:00 09/09/18 07:00 09/09/18 07:00 09/09/18 07:00 Intake and Output: 09/09/18 09/09/18 06:59 18:59 Output Total 200 Balance -200 - Medications Medications: Current Medications Acetaminophen (Tylenol 325mg Tab) 650 mg PO Q6 PRN PRN Reason: Pain, moderate (4-7) Albuterol/Ipratropium (Duoneb 3 Mg/0.5 Mg (3 Ml) Ud) 3 ml IH RQ4 PRN PRN Reason: Shortness of Breath Last Admin: 09/05/18 14:00 Dose: 3 ml Colchicine (Colocrys) 0.6 mg PO BID [facility] Last Admin: 09/08/18 19:22 Dose: 0.6 mg Cyclobenzaprine HCl (Flexeril) 5 mg PO TID [facility] Last Admin: 09/08/18 19:22 Dose: 5 mg Dextrose (Dextrose 50% Inj) 0 ml IV STAT PRN; Protocol PRN Reason: Hypoglycemia Protocol Dextrose (Glutose 15) 0 gm PO ONCE PRN; Protocol PRN Reason: Hypoglycemia Protocol Diazepam (Valium) 5 mg PO BID [facility] Last Admin: 09/08/18 19:21 Dose: 5 mg Dicyclomine HCl (Bentyl) 20 mg PO TID [facility] Last Admin: 09/08/18 19:23 Dose: 20 mg Diltiazem HCl (Cardizem Cd) 180 mg PO BID [facility] Last Admin: 09/08/18 19:22 Dose: 180 mg Ergocalciferol (Drisdol 50,000 Intl Units Cap) 1 cap PO Q7D [facility] Last Admin: 09/03/18 11:35 Dose: 1 cap Fluticasone/Vilanterol (Breo Ellipta 100-25 Mcg Inh) 1 puff INH RQ24 [facility] Last Admin: 09/08/18 13:08 Dose: 1 puff Furosemide (Lasix) 20 mg PO DAILY [facility] Last Admin: 09/08/18 10:12 Dose: 20 mg Gabapentin (Neurontin) 300 mg PO HS [facility] Last Admin: 09/08/18 22:21 Dose: 300 mg Glipizide (Glucotrol) 10 mg PO BID [facility] Last Admin: 09/08/18 19:21 Dose: 10 mg Glucagon (Glucagen Diagnostic Kit) 0 mg IM STAT PRN; Protocol PRN Reason: Hypoglycemia Protocol Hydrocortisone (Cortef) 20 mg PO TID [facility] Last Admin: 09/08/18 19:22 Dose: 20 mg Azithromycin 500 mg/ Sodium (Chloride) 250 mls @ 167 mls/hr IVPB Q24H [facility]; Protocol Last Admin: 09/04/18 01:00 Dose: 167 mls/hr Dextrose (Dextrose 5% In Water 1000 Ml) 1,000 mls @ 0 mls/hr IV .Q0M PRN; Protocol PRN Reason: Hypoglycemia Protocol Insulin Aspart (Novolog) 14 unit SC AC [facility] Last Admin: 09/09/18 08:31 Dose: Not Given Insulin Aspart (Novolog) 0 unit SC ACHS [facility] Last Admin: 09/09/18 08:31 Dose: Not Given Insulin Glargine (Lantus) 30 unit SC HS [facility] Last Admin: 09/08/18 22:22 Dose: 30 unit Levothyroxine Sodium (Synthroid) 100 mcg PO 0630 [facility] Last Admin: 09/09/18 06:41 Dose: 100 mcg Magnesium Oxide (Mag-Ox) 400 mg PO BID [facility] Last Admin: 09/08/18 19:21 Dose: 400 mg Metronidazole (Flagyl) 500 mg PO Q8 [facility] Last Admin: 09/08/18 22:21 Dose: 500 mg Ondansetron HCl (Zofran Inj) 4 mg IVP Q8 PRN PRN Reason: Nausea/Vomiting Oxycodone/Acetaminophen (Percocet 5/325 Mg Tab) 2 tab PO Q6H PRN PRN Reason: Pain, severe (8-10) Stop: 09/09/18 13:17 Last Admin: 09/08/18 22:20 Dose: 2 tab Pantoprazole Sodium (Protonix Ec Tab) 40 mg PO DAILY [facility] Last Admin: 09/08/18 10:12 Dose: 40 mg Rivaroxaban (Xarelto) 20 mg PO DAILY [facility] Last Admin: 09/08/18 10:13 Dose: 20 mg Rosuvastatin Calcium (Crestor) 10 mg PO HS [facility] Last Admin: 09/08/18 22:21 Dose: 10 mg Saccharomyces Boulardii (Florastor) 250 mg PO Q12 [facility] Last Admin: 09/08/18 22:22 Dose: 250 mg Sertraline HCl (Zoloft) 25 mg PO DAILY [facility] Last Admin: 09/08/18 10:12 Dose: 25 mg Sitagliptin Phosphate (Januvia) 100 mg PO DAILY [facility] Last Admin: 09/08/18 10:12 Dose: 100 mg Sucralfate (Carafate Oral Susp) 1 gm PO ACBHS [facility] Last Admin: 09/09/18 06:40 Dose: 1 gm Trazodone HCl (Desyrel) 50 mg PO HS [facility] Last Admin: 09/08/18 22:21 Dose: 50 mg Vancomycin HCl (Vancocin 250mg Capsule) 250 mg PO QID [facility] Last Admin: 09/08/18 22:23 Dose: 250 mg - Labs Labs: 09/09/18 07:22 09/09/18 07:22 PT 21.0 SECONDS (9.7-12.2) H 09/05/18 16:44 INR 1.9 09/05/18 16:44 APTT 28 SECONDS (21-34) 09/05/18 16:44 - Extremities Exam Additional comments: RLE: mild tenderness to anterior knee knee immobilizer migrated down to ankle, adjusted accordingly well padded dressings intact sensation intact SP/DP/TN motor intact EHL/FHL/TA/G pedal pulse intact pedal edema calves soft NT b/l Assessment and Plan (1) Closed fracture of right proximal tibia Assessment & Plan: -PT/OT NWB RLE -continue conservative mgmt with knee immobilizer, padded wrap -encouraged ROM to toes and ankle -DVT ppx -above d/w Dr. Hernandez in agreement Status: Acute
[2018-09-09] MEDS: Pantoprazole 40 mg EC Tab PO SCH (10:17)
[2018-09-09] MEDS: Magnesium Oxide 400 mg Tab UD PO SCH ×2 (10:17→18:17)
[2018-09-09] MEDS: Saccharomyces Boulardi 250 mg Cap PO SCH ×2 (10:17→21:38)
[2018-09-09] MEDS: Oxycodone/Acetaminophen 5/325 mg Tab PO PRN (10:18)
[2018-09-09] MEDS: diltiaZEM 180 mg/24 Hours CD Cap PO SCH ×2 (10:22→18:17)
[2018-09-09] MEDS ORDERED: Potassium Chloride 20 mEq ER Tab PO ONE (10:45)
[2018-09-09] MEDS: Vancomycin Hydrochloride 250 mg Capsule (Oral) PO SCH ×4 (11:10→21:39)
--- NOTE | 2018-09-09 11:16 | CP.PCM.CON ---
History of Present Illness - History of Present Illness History of Present Illness: Palliative consult requested by Doctor Muniz for goals of care discussion Patient is a yo lady admitted from [facility] with fever, weakness, nausea and feeling tired X couple of days. The Max fever is not documented if any. Patient was recently treated for Right knee fracture, pneumonia and COPD. After multiple diagnostic studies on this admission patient is diagnosed with Pancreas mass suspicious for malignant neoplasm. BCs were positive, patient started on Zithromax and Vanco. CXR negative acute findings. Patient is aware of her cancer diagnosis . Her chief complains were pain and depression. Patient seen by Psych and placed on Zoloft and Trazadone for depression and insomnia. PMH: Pneuminia, COPD, Right leg Fracture, DVT, Depression, suicidal attempt 20 years ago, spinal stenosis, PE, Fibromyligia Soc. Hx: , lives at home with two kids and Fam. Hx: sister from liver cancer Review of Systems - Constitutional Constitutional: Weakness - EENT Eyes: absent: As Per HPI, Blind Spots, Blurred Vision, Change in Vision, Decreased Night Vision, Diplopia, Discharge, Dry Eye, Exophthalmos, Floaters, Irritation, Itchy Eyes, Loss of Peripheral Vision, Pain, Photophobia, Requires Corrective Lenses, Sees Flashes, Spots in Vision, Tunnel Vision, Other Visual Disturbances, Loss of Vision, Other Ears: absent: As Per HPI, Decreased Hearing, Ear Discharge, Ear Pain, Tinnitus, Abnormal Hearing, Disequilibrium, Dizziness, Other Nose/Mouth/Throat: absent: As Per HPI, Epistaxis, Nasal Congestion, Nasal Discharge, Nasal Obstruction, Nasal Trauma, Nose Pain, Post Nasal Drip, Sinus Pain, Sinus Pressure, Bleeding Gums, Change in Voice, Dental Pain, Dry Mouth, Dysphagia, Halitosis, Hoarsness, Lip Swelling, Mouth Lesions, Mouth Pain, Odynophagia, Sore Throat, Throat Swelling, Tongue Swelling, Facial Pain, Neck Pain, Neck Mass, Other - Breasts Breasts: absent: As Per HPI, Change in Shape, Mass, Pain, Nipple Discharge, Nipple Inversion, Skin Changes, Swelling, Other - Cardiovascular Cardiovascular: Dyspnea on Exertion, Leg Edema, Pedal Edema - Respiratory Respiratory: Dyspnea, Dyspnea on Exertion - Gastrointestinal Gastrointestinal: Diarrhea - Genitourinary Genitourinary: Urinary Incontinence - Reproductive: Female Reproductive:Female: Post Menopausal - Menstruation Menstruation: Post Menopausal - Musculoskeletal Musculoskeletal: Abnormal Gait, Deformity, Limited Range of Motion, Muscle Weakness, Myalgias, Numbness - Integumentary Integumentary: absent: As Per HPI, Acne, Alopecia, Bleeding Lesions, Change in Hair, Change in Nails, Change in Pigmentation, Changing Lesions, Dry Skin, Eryth jhonatan, Furuncle, Hirsutism, Lesions, New Lesions, Non-Healing Lesions, Photosensitivity, Pruritus, Rash, Skin Pain, Skin Ulcer, Sores, Striae, Swelling, Unusual Bruising, Wounds, Jaundice, Other - Neurological Neurological: absent: As Per HPI, Abnormal Gait, Abnormal Hearing, Abnormal Movements, Abnormal Speech, Behavioral Changes, Burning Sensations, Confusion, Convulsions, Disequilibrium, Dizziness, Numbness, Focal Weakness, Frequent Falls, Headaches, Lack of Coordination, Loss of Vision, Memory Loss, Paresthesias, Radicular Pain, Restless Legs, Sensory Deficit, Syncope, Tingling, Tremor, Vertigo, Weakness, Other Visual Disturbances, Other - Psychiatric Psychiatric: Depression - Endocrine Endocrine: Change in Body Appearance - Hematologic/Lymphatic Hematologic: absent: As Per HPI, Easy Bleeding, Easy Bruising, Lymphadenopathy, Other Past Patient History - Infectious Disease Hx of Infectious Diseases: None, C.diff - Past Medical History & Family History Past Medical History?: Yes Past Family History: Reviewed and not pertinent - Past Social History Smoking Status: 2 pks per day x 20 years - CARDIAC Hx Congestive Heart Failure: Yes Hx Hypercholesterolemia: Yes Hx Hypertension: Yes - PULMONARY Hx Chronic Obstructive Pulmonary Disease (COPD): Yes - NEUROLOGICAL Hx Neurological Disorder: Yes HX Cerebrovascular Accident: Yes - HEENT Hx HEENT Problems: No - RENAL Hx Chronic Kidney Disease: No - ENDOCRINE/METABOLIC Hx Endocrine Disorders: Yes Hx Hypothyroidism: Yes - HEMATOLOGICAL/ONCOLOGICAL Hx Blood Disorders: Yes Hx Anemia: Yes - INTEGUMENTARY Hx Dermatological Problems: No - MUSCULOSKELETAL/RHEUMATOLOGICAL Hx Rheumatoid Arthritis: Yes - GASTROINTESTINAL Hx Gastrointestinal Disorders: Yes Hx Gall Bladder Disease: Yes - GENITOURINARY/GYNECOLOGICAL Hx Genitourinary Disorders: Yes Hx Urinary Tract Infection: Yes - PSYCHIATRIC Hx Psychophysiologic Disorder: Yes Hx Anxiety: Yes Hx Depression: Yes Hx Substance Use: No - SURGICAL HISTORY Hx Surgeries: Yes Hx Appendectomy: No Hx Cholecystectomy: Yes - ANESTHESIA Hx Anesthesia: Yes Hx Anesthesia Reactions: Yes (DIFFICULTY BREATHING) Meds Allergies/Adverse Reactions: Allergies Allergy/AdvReac Type Severity Reaction Status Date / Time No Known Allergies Allergy Verified 09/01/18 17:29 - Medications Medications: Current Medications Acetaminophen (Tylenol 325mg Tab) 650 mg PO Q6 PRN PRN Reason: Pain, moderate (4-7) Albuterol/Ipratropium (Duoneb 3 Mg/0.5 Mg (3 Ml) Ud) 3 ml IH RQ4 PRN PRN Reason: Shortness of Breath Last Admin: 09/05/18 14:00 Dose: 3 ml Colchicine (Colocrys) 0.6 mg PO BID [facility] Last Admin: 09/09/18 10:21 Dose: 0.6 mg Cyclobenzaprine HCl (Flexeril) 5 mg PO TID [facility] Last Admin: 09/09/18 10:21 Dose: 5 mg Dextrose (Dextrose 50% Inj) 0 ml IV STAT PRN; Protocol PRN Reason: Hypoglycemia Protocol Dextrose (Glutose 15) 0 gm PO ONCE PRN; Protocol PRN Reason: Hypoglycemia Protocol Diazepam (Valium) 5 mg PO BID [facility] Last Admin: 09/09/18 10:16 Dose: 5 mg Dicyclomine HCl (Bentyl) 20 mg PO TID [facility] Last Admin: 09/09/18 10:23 Dose: 20 mg Diltiazem HCl (Cardizem Cd) 180 mg PO BID [facility] Last Admin: 09/09/18 10:22 Dose: 180 mg Ergocalciferol (Drisdol 50,000 Intl Units Cap) 1 cap PO Q7D [facility] Last Admin: 09/03/18 11:35 Dose: 1 cap Fluticasone/Vilanterol (Breo Ellipta 100-25 Mcg Inh) 1 puff INH RQ24 [facility] Last Admin: 09/09/18 07:45 Dose: 1 puff Furosemide (Lasix) 20 mg PO DAILY [facility] Last Admin: 09/09/18 10:20 Dose: 20 mg Gabapentin (Neurontin) 300 mg PO HS [facility] Last Admin: 09/08/18 22:21 Dose: 300 mg Glipizide (Glucotrol) 10 mg PO BID [facility] Last Admin: 09/09/18 10:20 Dose: 10 mg Glucagon (Glucagen Diagnostic Kit) 0 mg IM STAT PRN; Protocol PRN Reason: Hypoglycemia Protocol Hydrocortisone (Cortef) 20 mg PO TID [facility] Last Admin: 09/09/18 10:22 Dose: 20 mg Azithromycin 500 mg/ Sodium (Chloride) 250 mls @ 167 mls/hr IVPB Q24H [facility]; Protocol Last Admin: 09/04/18 01:00 Dose: 167 mls/hr Dextrose (Dextrose 5% In Water 1000 Ml) 1,000 mls @ 0 mls/hr IV .Q0M PRN; Protocol PRN Reason: Hypoglycemia Protocol Insulin Aspart (Novolog) 14 unit SC AC [facility] Last Admin: 09/09/18 08:31 Dose: Not Given Insulin Aspart (Novolog) 0 unit SC ACHS [facility] Last Admin: 09/09/18 08:31 Dose: Not Given Insulin Glargine (Lantus) 30 unit SC HS [facility] Last Admin: 09/08/18 22:22 Dose: 30 unit Levothyroxine Sodium (Synthroid) 100 mcg PO 0630 [facility] Last Admin: 09/09/18 06:41 Dose: 100 mcg Magnesium Oxide (Mag-Ox) 400 mg PO BID [facility] Last Admin: 09/09/18 10:17 Dose: 400 mg Metronidazole (Flagyl) 500 mg PO Q8 [facility] Last Admin: 09/08/18 22:21 Dose: 500 mg Ondansetron HCl (Zofran Inj) 4 mg IVP Q8 PRN PRN Reason: Nausea/Vomiting Oxycodone/Acetaminophen (Percocet 5/325 Mg Tab) 2 tab PO Q6H PRN PRN Reason: Pain, severe (8-10) Stop: 09/09/18 13:17 Last Admin: 09/09/18 10:18 Dose: 2 tab Pantoprazole Sodium (Protonix Ec Tab) 40 mg PO DAILY [facility] Last Admin: 09/09/18 10:17 Dose: 40 mg Rivaroxaban (Xarelto) 20 mg PO DAILY [facility] Last Admin: 09/09/18 10:19 Dose: 20 mg Rosuvastatin Calcium (Crestor) 10 mg PO HS [facility] Last Admin: 09/08/18 22:21 Dose: 10 mg Saccharomyces Boulardii (Florastor) 250 mg PO Q12 [facility] Last Admin: 09/09/18 10:17 Dose: 250 mg Sertraline HCl (Zoloft) 25 mg PO DAILY [facility] Last Admin: 09/09/18 10:19 Dose: 25 mg Sitagliptin Phosphate (Januvia) 100 mg PO DAILY [facility] Last Admin: 09/09/18 10:21 Dose: 100 mg Sucralfate (Carafate Oral Susp) 1 gm PO ACBHS [facility] Last Admin: 09/09/18 06:40 Dose: 1 gm Trazodone HCl (Desyrel) 50 mg PO HS [facility] Last Admin: 09/08/18 22:21 Dose: 50 mg Vancomycin HCl (Vancocin 250mg Capsule) 250 mg PO QID [facility] Last Admin: 09/09/18 11:10 Dose: 250 mg Physical Exam - Constitutional Appears: Chronically Ill - Head Exam Head Exam: ATRAUMATIC, NORMAL INSPECTION, NORMOCEPHALIC - Eye Exam Eye Exam: EOMI, Normal appearance, PERRL Pupil Exam: NORMAL ACCOMODATION - ENT Exam ENT Exam: Mucous Membranes Moist, Normal Exam - Neck Exam Neck exam: Positive for: Normal Inspection - Respiratory Exam Respiratory Exam: Decreased Breath Sounds, NORMAL BREATHING PATTERN - Cardiovascular Exam Cardiovascular Exam: Tachycardia, +S1, +S2 - GI/Abdominal Exam GI & Abdominal Exam: Normal Bowel Sounds, Soft - Rectal Exam Rectal Exam: Deferred - Extremities Exam Extremities exam: Positive for: pedal edema, pedal pulses present Additional comments: numbness - Back Exam Back exam: NORMAL INSPECTION - Neurological Exam Neurological exam: Abnormal Gait, Alert, Oriented x3 - Psychiatric Exam Psychiatric exam: Depressed - Skin Skin Exam: Dry, Mottled, Pallor Results - Vital Signs Recent Vital Signs: Last Vital Signs Temp 98.0 F 09/09/18 07:00 Pulse 105 H 09/09/18 08:00 Resp 20 09/09/18 07:00 BP 150/85 09/09/18 10:20 Pulse Ox 97 09/09/18 07:00 - Labs Result Diagrams: 09/09/18 07:22 09/09/18 07:22 Labs: Laboratory Results - last 24 hr 09/08/18 09/08/18 09/08/18 11:16 11:16 16:37 WBC 11.3 H RBC 3.79 L Hgb 8.6 L Hct 29.0 L MCV 76.6 L MCH 22.7 L MCHC 29.7 L RDW 19.9 H Plt Count 411 H MPV 9.0 Neut % (Auto) 62.6 Lymph % (Auto) 24.7 Cochran % (Auto) 11.1 H Eos % (Auto) 0.5 Baso % (Auto) 1.1 Neut # (Auto) 7.1 H Lymph # (Auto) 2.8 Cochran # (Auto) 1.3 H Eos # (Auto) 0.1 Baso # (Auto) 0.1 Sodium 138 Potassium 3.6 Chloride 110 H Carbon Dioxide 21 L Anion Gap 10 BUN 26 H Creatinine 1.0 Est GFR ( Amer) > 60 Est GFR (Non-Af Amer) 56 POC Glucose (mg/dL) 195 H Random Glucose 206 H Calcium 8.2 L Total Bilirubin 0.2 AST 38 H D ALT 76 H D Alkaline Phosphatase 92 Total Protein 5.1 L Albumin 2.9 L Globulin 2.3 Albumin/Globulin Ratio 1.3 09/08/18 09/09/18 09/09/18 20:34 06:05 07:22 WBC 13.3 H RBC 3.58 L Hgb 8.1 L Hct 27.1 L MCV 75.7 L MCH 22.6 L MCHC 29.9 L RDW 19.9 H Plt Count 415 H MPV 8.6 Neut % (Auto) 67.7 Lymph % (Auto) 21.8 Cochran % (Auto) 9.7 Eos % (Auto) 0.4 Baso % (Auto) 0.4 Neut # (Auto) 9.0 H Lymph # (Auto) 2.9 Cochran # (Auto) 1.3 H Eos # (Auto) 0.1 Baso # (Auto) 0.1 Sodium Potassium Chloride Carbon Dioxide Anion Gap BUN Creatinine Est GFR ( Amer) Est GFR (Non-Af Amer) POC Glucose (mg/dL) 222 H 94 Random Glucose Calcium Total Bilirubin AST ALT Alkaline Phosphatase Total Protein Albumin Globulin Albumin/Globulin Ratio 09/09/18 07:22 WBC RBC Hgb Hct MCV MCH MCHC RDW Plt Count MPV Neut % (Auto) Lymph % (Auto) Cochran % (Auto) Eos % (Auto) Baso % (Auto) Neut # (Auto) Lymph # (Auto) Cochran # (Auto) Eos # (Auto) Baso # (Auto) Sodium 138 Potassium 3.5 L Chloride 108 H Carbon Dioxide 23 Anion Gap 10 BUN 26 H Creatinine 1.0 Est GFR ( Amer) > 60 Est GFR (Non-Af Amer) 56 POC Glucose (mg/dL) Random Glucose 87 D Calcium 8.3 L Total Bilirubin 0.1 L AST 35 ALT 63 H Alkaline Phosphatase 83 Total Protein 4.8 L Albumin 2.7 L Globulin 2.2 Albumin/Globulin Ratio 1.2 Assessment & Plan - Assessment and Plan (Free Text) Assessment: Palliative consult Full Code, there is no Advance Directive on chart, PPS30 % I reviewed all Medical records, diagnostic studies, examined and interviewed patient in the bed Patient is alert, oriented X 3 Malian speaking with affect that is appropriate, obese.. Patient cries occasionally, admits to be feeling depressed. Patient seen by Psych, Zoldaysi daily and Thrazadone Q HS ordered. Skin pale, Hb there is no sacral pressure sores , patient is mostly bedridden and needs max assistance with repositioning in bed. Patient is unable to ambulate 2nd to right leg fracture and in general her ability to walk has been decreased over years due to Hx of Fibromylagia. Right kne ELVIE wrap with immobilizer on. Breath sounds are shallow, RR, there is no cough, there is mild SOB at rest. o2 ON, O2 Sat 97%, there is moist cough occasionally. CXR negative. //HR 105, ST, denies chest pain. On 09/06/18 BREAKER OFF called for HR 131. It is believed that patient was in Opioid withdrawal. Patient stabilized. Abdomen large, soft, active bowel sounds, had diarrhea at [facility] , no diarrhea on this admission . Tolerates diet. Fuentes cath at bed side, urine perfecto, output appropriate. Right knee wrapped with ELVIE and Immobilizer, limited ROM, reports numbness to right foot, takes Neurontin. There is pedal edema to both feet, pedal pulses present but distant. Pain: Reports generalized pain , " all over". Reports significant pain to Left upper quadrant. States pain is constant and worse after meal. Pain ranges 7- 8/10. Percocet PRN on board. BP153/90, HR 105, afebrile, O2Sat 97% WBC 13.3, Hb 8.1 Meds: Zithromax, Vanco, Xarelto, Cortef, Percocet PRN pain Goals of care discussed with patient. She is aware of her cancer diagnosis. Patient sees her self as being sick for a long time and her quality of life significantly affected. Patient admits she tries to stay strong mostly because of her children. She believes that her children suffer when they see her sick. She wishes she remains stable enough to be able to perform some of ADLs that she used to enjoy. However, patient understands that her cancer diagnosis puts her at high mortality risk. Patient voiced several times, that if her condition becomes worse and her life depends of life support she would only want to be kept comfortable and allowed natural . POLST introduced. At this time patient did not feel comfortable signing POLST saying that would make her family upset and wanted then to be present before signing it. I confirmed with her that her wishes were to peacefully and she said YES. Patient complained of her chronic pain and new pain to Left upper abdomen , which is moderate , intense and aggravated with food. Pain is not relieved by 1 tb of Percocet. Patient was made aware that she cold have 2 tb for moderate to severe pain. This was discussed with nursing. Impression * Chronic pain due to Fibromylagia * New acute, abdominal pain, cancer related * Right knee fracture * Obesity * Depression * Limited mobility 2nd to above * Patient voices wish to be allowed natural but is uncomfortable signing POLST unless family present * Patient wishes she was more able to enjoy her life, and reports feeling tired from being sick Suggestion * Percocet 2 tb PO for pain of 5-7 /10 * Assist in reposition in bed Q 2 hr. Patient is high risk for pressure sores * Depression treatment as per Doctor Goodman. Reinforce teaching about Zoloft taking full effect in about 10 -15 days. * This patient should be made DNR/DNI as her prognosis is limited. She is not immediately dying and at least we know her wishes in case her condition gets worse. Palliative care will remain on board as needed to support this very sick lady. Advance Care planing 60 min.
--- NOTE | 2018-09-09 14:20 | CP.PCM.PN ---
Subjective - Date & Time of Evaluation Date of Evaluation: 09/09/18 Time of Evaluation: 14:19 - Subjective Subjective: Nephrology Consultation Note: Assessment: Stable Acute Kidney Injury (N17.9) likely due to hypotension/sepsis/renal hypoperfusion as also evident by concomitant abnormal AST/ALT: IMPROVING Anemia hyponatremia GPC sepsis hypomagnesemia DM, HTN dCHF, DVT/PE s/p IVC filter, gout, hypothyroidism hyperlipidemia fibromyalgias depression/anxiety COPD Adrenal Insuff C.diff colitis pancreatic mass ? malignancy Plan No acute need for renal replacement therapy at this time. Hypertension control with meds as ordered. Maintain hemodynamics stable. Avoid hypotension. Patient not on ACEI/ARB due to recent KARMA. will resume Monitor Input/Output, daily weights and renal function with basic metabolic panel can resume lasix from renal perspective supplement lytes as needed Check urine analysis, spot protein/creatinine, albumin/creatinine ratio, renal sonogram Anemia work up with TSAT/Ferritin/Vitamin B12/folate, serum protein electroph oresis with immunofixation, serum free light chain assay (Jerome/Lambda) Dose meds/antibiotics for improved GFR. Glycemic control Further work up/management as per primary team Thanks for allowing me to participate in care of your patient. Will follow patient with you. Please call if any Qs. had d/w team Dr Robert Lam Office: [phone] Chief Complaint; fever Reason for consult: Acute Kidney Injury HPI: Pt is a 63 F with hx of diabetes Mellitus ( years), hypertension (years) dCHF, DVT/PE s/p IVC filter, gout, hypothyroidism hyperlipidemia fibromyalgias depression/amxiety COPD presented with complaints of fever and cough, admitted for KARMA and ? COPD exacerbation Denies OTC/herbal meds or NSAIDs No recent iodinated contrast exposure. Noted obvious episodes of low BP (88/46). ROS: Cardiovascular: No chest pain. Pulmonary: better shortness of breath Gastrointestinal: better abdominal pain No nausea. No vomiting. Genitourinary: No pain while urinating. Denies blood in urine. All other negative except as mentioned in HPI Physical Examination: General Appearance: comfortable, in no acute respiratory distress, co-operative . overal ill appearng and debilitated Vitals reviewed and noted as below Head; Atraumatic, normocephalic ENT: no ulcers no thrush. Tongue is midline/dry. Oropharynx: no rash or ulcers. EYES: Pupils are equal, round and reactive to light accommodation. Eye muscles and extraocular movement intact. Sclera is anicteric. Neck; supple no lymphadenopathy, no thyromegaly or bruit Lungs: Normal respiratory rate/effort. Breath sounds bilateral equal and few basal crackle Heart: Increased rate. s1s2 normal. No rub or gallop. Extremities: 1+ edema. No varicose veins Neurological: Patient is alert, awake and oriented to person, place and time. No focal deficit. Strength bilateral appropriate and equal Skin: Warm and dry. Normal turgor. No rash. Palpitation: Normal elasticity for age Abdomen: Abdomen is soft. Bowel sounds +. There is no abdominal tenderness, no guarding/rigidity no organomegaly Psych: limited insight and normal affect/mood MSK: no joint tenderness or swelling. Digits and nails normal, no deformity. Rt leg in splint : kidney or bladder not palpable Labs/imaging reviewed. Past medical history, past surgical history, family history, social history, allergy reviewed and noted as below Family hx: no hx of CKD. Rest non-contributory Hep B/C neg UA no protein Objective - Vital Signs/Intake and Output Vital Signs (last 24 hours): Temp Pulse Resp BP Pulse Ox 98.0 F 105 H 20 150/85 97 09/09/18 07:00 09/09/18 08:00 09/09/18 07:00 09/09/18 10:20 09/09/18 07:00 Intake and Output: 09/09/18 09/09/18 06:59 18:59 Output Total 200 Balance -200 - Medications Medications: Current Medications Acetaminophen (Tylenol 325mg Tab) 650 mg PO Q6 PRN PRN Reason: Pain, moderate (4-7) Albuterol/Ipratropium (Duoneb 3 Mg/0.5 Mg (3 Ml) Ud) 3 ml IH RQ4 PRN PRN Reason: Shortness of Breath Last Admin: 09/05/18 14:00 Dose: 3 ml Colchicine (Colocrys) 0.6 mg PO BID [facility] Last Admin: 09/09/18 10:21 Dose: 0.6 mg Cyclobenzaprine HCl (Flexeril) 5 mg PO TID [facility] Last Admin: 09/09/18 10:21 Dose: 5 mg Dextrose (Dextrose 50% Inj) 0 ml IV STAT PRN; Protocol PRN Reason: Hypoglycemia Protocol Dextrose (Glutose 15) 0 gm PO ONCE PRN; Protocol PRN Reason: Hypoglycemia Protocol Diazepam (Valium) 5 mg PO BID [facility] Last Admin: 09/09/18 10:16 Dose: 5 mg Dicyclomine HCl (Bentyl) 20 mg PO TID [facility] Last Admin: 09/09/18 10:23 Dose: 20 mg Diltiazem HCl (Cardizem Cd) 180 mg PO BID [facility] Last Admin: 09/09/18 10:22 Dose: 180 mg Ergocalciferol (Drisdol 50,000 Intl Units Cap) 1 cap PO Q7D [facility] Last Admin: 09/03/18 11:35 Dose: 1 cap Fluticasone/Vilanterol (Breo Ellipta 100-25 Mcg Inh) 1 puff INH RQ24 [facility] Last Admin: 09/09/18 07:45 Dose: 1 puff Furosemide (Lasix) 20 mg PO DAILY [facility] Last Admin: 09/09/18 10:20 Dose: 20 mg Gabapentin (Neurontin) 300 mg PO HS [facility] Last Admin: 09/08/18 22:21 Dose: 300 mg Glipizide (Glucotrol) 10 mg PO BID [facility] Last Admin: 09/09/18 10:20 Dose: 10 mg Glucagon (Glucagen Diagnostic Kit) 0 mg IM STAT PRN; Protocol PRN Reason: Hypoglycemia Protocol Hydrocortisone (Cortef) 20 mg PO TID [facility] Last Admin: 09/09/18 10:22 Dose: 20 mg Azithromycin 500 mg/ Sodium (Chloride) 250 mls @ 167 mls/hr IVPB Q24H [facility]; Protocol Last Admin: 09/04/18 01:00 Dose: 167 mls/hr Dextrose (Dextrose 5% In Water 1000 Ml) 1,000 mls @ 0 mls/hr IV .Q0M PRN; Protocol PRN Reason: Hypoglycemia Protocol Insulin Aspart (Novolog) 0 unit SC ACHS [facility] Last Admin: 09/09/18 12:04 Dose: Not Given Insulin Aspart (Novolog) 6 unit SC ACHS [facility] Insulin Glargine (Lantus) 20 unit SC DAILY [facility] Levothyroxine Sodium (Synthroid) 100 mcg PO 0630 [facility] Last Admin: 09/09/18 06:41 Dose: 100 mcg Lisinopril (Zestril) 10 mg PO DAILY [facility] Magnesium Oxide (Mag-Ox) 400 mg PO BID [facility] Last Admin: 09/09/18 10:17 Dose: 400 mg Metronidazole (Flagyl) 500 mg PO Q8 [facility] Last Admin: 09/08/18 22:21 Dose: 500 mg Ondansetron HCl (Zofran Inj) 4 mg IVP Q8 PRN PRN Reason: Nausea/Vomiting Pantoprazole Sodium (Protonix Ec Tab) 40 mg PO DAILY [facility] Last Admin: 09/09/18 10:17 Dose: 40 mg Rivaroxaban (Xarelto) 20 mg PO DAILY [facility] Last Admin: 09/09/18 10:19 Dose: 20 mg Rosuvastatin Calcium (Crestor) 10 mg PO HS [facility] Last Admin: 09/08/18 22:21 Dose: 10 mg Saccharomyces Boulardii (Florastor) 250 mg PO Q12 [facility] Last Admin: 09/09/18 10:17 Dose: 250 mg Sertraline HCl (Zoloft) 25 mg PO DAILY [facility] Last Admin: 09/09/18 10:19 Dose: 25 mg Sitagliptin Phosphate (Januvia) 100 mg PO DAILY [facility] Last Admin: 09/09/18 10:21 Dose: 100 mg Sucralfate (Carafate Oral Susp) 1 gm PO ACBHS [facility] Last Admin: 09/09/18 06:40 Dose: 1 gm Trazodone HCl (Desyrel) 50 mg PO HS [facility] Last Admin: 09/08/18 22:21 Dose: 50 mg Vancomycin HCl (Vancocin 250mg Capsule) 250 mg PO QID [facility] Last Admin: 09/09/18 11:10 Dose: 250 mg - Labs Labs: 09/09/18 07:22 09/09/18 07:22 PT 21.0 SECONDS (9.7-12.2) H 09/05/18 16:44 INR 1.9 09/05/18 16:44 APTT 28 SECONDS (21-34) 09/05/18 16:44
[2018-09-09] MEDS ORDERED: (Novolog) Insulin Aspart, Recombinant 100 u/ml 10 ml vial SC SCH (16:30)
--- NOTE | 2018-09-09 18:42 | CP.PCM.PN ---
Subjective - Date & Time of Evaluation Date of Evaluation: 09/09/18 Time of Evaluation: 18:35 - Subjective Subjective: 63 year woman with multiple medical morbidities, now with body of pancreas cancer. Unfortunately she has prohibitively high risk for surgery. Appreciate palliative care note. Objective - Vital Signs/Intake and Output Vital Signs (last 24 hours): Temp Pulse Resp BP Pulse Ox 98.1 F 124 H 20 160/92 H 96 09/09/18 15:00 09/09/18 15:00 09/09/18 15:00 09/09/18 15:00 09/09/18 15:00 Intake and Output: 09/09/18 09/09/18 06:59 18:59 Output Total 200 Balance -200 - Medications Medications: Current Medications Acetaminophen (Tylenol 325mg Tab) 650 mg PO Q6 PRN PRN Reason: Pain, moderate (4-7) Albuterol/Ipratropium (Duoneb 3 Mg/0.5 Mg (3 Ml) Ud) 3 ml IH RQ4 PRN PRN Reason: Shortness of Breath Last Admin: 09/05/18 14:00 Dose: 3 ml Colchicine (Colocrys) 0.6 mg PO BID [facility] Last Admin: 09/09/18 18:19 Dose: 0.6 mg Cyclobenzaprine HCl (Flexeril) 5 mg PO TID [facility] Last Admin: 09/09/18 18:20 Dose: 5 mg Dextrose (Dextrose 50% Inj) 0 ml IV STAT PRN; Protocol PRN Reason: Hypoglycemia Protocol Dextrose (Glutose 15) 0 gm PO ONCE PRN; Protocol PRN Reason: Hypoglycemia Protocol Diazepam (Valium) 5 mg PO BID [facility] Last Admin: 09/09/18 18:17 Dose: 5 mg Dicyclomine HCl (Bentyl) 20 mg PO TID [facility] Last Admin: 09/09/18 18:30 Dose: 20 mg Diltiazem HCl (Cardizem Cd) 180 mg PO BID [facility] Last Admin: 09/09/18 18:17 Dose: 180 mg Ergocalciferol (Drisdol 50,000 Intl Units Cap) 1 cap PO Q7D [facility] Last Admin: 09/03/18 11:35 Dose: 1 cap Fluticasone/Vilanterol (Breo Ellipta 100-25 Mcg Inh) 1 puff INH RQ24 [facility] Last Admin: 09/09/18 07:45 Dose: 1 puff Furosemide (Lasix) 20 mg PO DAILY [facility] Last Admin: 09/09/18 10:20 Dose: 20 mg Gabapentin (Neurontin) 300 mg PO HS [facility] Last Admin: 09/08/18 22:21 Dose: 300 mg Glipizide (Glucotrol) 10 mg PO BID [facility] Last Admin: 09/09/18 18:17 Dose: 10 mg Glucagon (Glucagen Diagnostic Kit) 0 mg IM STAT PRN; Protocol PRN Reason: Hypoglycemia Protocol Hydrocortisone (Cortef) 20 mg PO TID [facility] Last Admin: 09/09/18 18:18 Dose: 20 mg Azithromycin 500 mg/ Sodium (Chloride) 250 mls @ 167 mls/hr IVPB Q24H [facility]; Protocol Last Admin: 09/04/18 01:00 Dose: 167 mls/hr Dextrose (Dextrose 5% In Water 1000 Ml) 1,000 mls @ 0 mls/hr IV .Q0M PRN; Protocol PRN Reason: Hypoglycemia Protocol Insulin Aspart (Novolog) 0 unit SC ACHS [facility] Last Admin: 09/09/18 18:20 Dose: Not Given Insulin Aspart (Novolog) 6 unit SC ACHS [facility] Last Admin: 09/09/18 17:20 Dose: 6 units Insulin Glargine (Lantus) 20 unit SC DAILY [facility] Levothyroxine Sodium (Synthroid) 100 mcg PO 0630 [facility] Last Admin: 09/09/18 06:41 Dose: 100 mcg Lisinopril (Zestril) 10 mg PO DAILY [facility] Last Admin: 09/09/18 14:44 Dose: 10 mg Magnesium Oxide (Mag-Ox) 400 mg PO BID [facility] Last Admin: 09/09/18 18:17 Dose: 400 mg Metronidazole (Flagyl) 500 mg PO Q8 [facility] Last Admin: 09/09/18 14:23 Dose: 500 mg Ondansetron HCl (Zofran Inj) 4 mg IVP Q8 PRN PRN Reason: Nausea/Vomiting Oxycodone/Acetaminophen (Percocet 5/325 Mg Tab) 2 tab PO Q6H PRN PRN Reason: Pain, moderate (4-7) Stop: 09/12/18 14:27 Pantoprazole Sodium (Protonix Ec Tab) 40 mg PO DAILY [facility] Last Admin: 09/09/18 10:17 Dose: 40 mg Rivaroxaban (Xarelto) 20 mg PO DAILY [facility] Last Admin: 09/09/18 10:19 Dose: 20 mg Rosuvastatin Calcium (Crestor) 10 mg PO HS [facility] Last Admin: 09/08/18 22:21 Dose: 10 mg Saccharomyces Boulardii (Florastor) 250 mg PO Q12 [facility] Last Admin: 09/09/18 10:17 Dose: 250 mg Sertraline HCl (Zoloft) 50 mg PO DAILY [facility] Sitagliptin Phosphate (Januvia) 100 mg PO DAILY [facility] Last Admin: 09/09/18 10:21 Dose: 100 mg Sucralfate (Carafate Oral Susp) 1 gm PO ACBHS [facility] Last Admin: 09/09/18 06:40 Dose: 1 gm Trazodone HCl (Desyrel) 50 mg PO [facility] Last Admin: 09/08/18 22:21 Dose: 50 mg Vancomycin HCl (Vancocin 250mg Capsule) 250 mg PO QID [facility] Last Admin: 09/09/18 14:23 Dose: 250 mg - Labs Labs: 09/09/18 07:22 09/09/18 07:22 PT 21.0 SECONDS (9.7-12.2) H 09/05/18 16:44 INR 1.9 09/05/18 16:44 APTT 28 SECONDS (21-34) 09/05/18 16:44 - Constitutional Appears: Non-toxic, Chronically Ill - Respiratory Exam Respiratory Exam: NORMAL BREATHING PATTERN - GI/Abdominal Exam GI & Abdominal Exam: Soft, Normal Bowel Sounds - Rectal Exam Rectal Exam: Deferred Assessment and Plan (1) Pancreas neoplasm Assessment & Plan: Morbidly illness woman with probable body of pancreas cancer. Prohibitively high risk for surgery in current state. Paaliative care saw patient today. Agree with their assessment. Will follow peripherally. If she has a dramatic improvement in her performance status, will reassess. Status: Acute
--- NOTE | 2018-09-09 18:45 | CP.PCM.CON ---
History of Present Illness - History of Present Illness History of Present Illness: 63 year old woman admitted on 09/02/18 for fever and diarrhea. She has a history of fibromyalgia and chronic steroid use. She was found to have a right lower extremity fracture. Work up revealed C Diff positivity. She under went a rou dee contrast abdominal CT that showed a 2.7 cm body of pancreas mass. There is no obvious vascular invasion or metastasis to liver. However her CEA is 42, and CA19-9 is 1800. She denies weight lost. Review of Systems - Review of Systems All systems: reviewed and no additional remarkable complaints except - Constitutional Constitutional: As Per HPI, Fatigue, Weakness - Respiratory Respiratory: As Per HPI, Dyspnea, Chest Congestion Additional comments: on home O2 - Menstruation Menstruation: Post Menopausal - Musculoskeletal Musculoskeletal: Muscle Weakness Additional comments: right lower extremity fracture Past Patient History - Infectious Disease Hx of Infectious Diseases: None, C.diff - Past Medical History & Family History Past Medical History?: Yes Past Family History: Reviewed and not pertinent - Past Social History Smoking Status: 2 pks per day x 20 years - CARDIAC Hx Congestive Heart Failure: Yes Hx Hypercholesterolemia: Yes Hx Hypertension: Yes - PULMONARY Hx Chronic Obstructive Pulmonary Disease (COPD): Yes - NEUROLOGICAL Hx Neurological Disorder: Yes HX Cerebrovascular Accident: Yes - HEENT Hx HEENT Problems: No - RENAL Hx Chronic Kidney Disease: No - ENDOCRINE/METABOLIC Hx Endocrine Disorders: Yes Hx Hypothyroidism: Yes - HEMATOLOGICAL/ONCOLOGICAL Hx Blood Disorders: Yes Hx Anemia: Yes - INTEGUMENTARY Hx Dermatological Problems: No - MUSCULOSKELETAL/RHEUMATOLOGICAL Hx Rheumatoid Arthritis: Yes - GASTROINTESTINAL Hx Gastrointestinal Disorders: Yes Hx Gall Bladder Disease: Yes - GENITOURINARY/GYNECOLOGICAL Hx Genitourinary Disorders: Yes Hx Urinary Tract Infection: Yes - PSYCHIATRIC Hx Psychophysiologic Disorder: Yes Hx Anxiety: Yes Hx Depression: Yes Hx Substance Use: No - SURGICAL HISTORY Hx Surgeries: Yes Hx Appendectomy: No Hx Cholecystectomy: Yes - ANESTHESIA Hx Anesthesia: Yes Hx Anesthesia Reactions: Yes (DIFFICULTY BREATHING) Meds Allergies/Adverse Reactions: Allergies Allergy/AdvReac Type Severity Reaction Status Date / Time No Known Allergies Allergy Verified 09/01/18 17:29 - Medications Medications: Current Medications Albuterol/Ipratropium (Duoneb 3 Mg/0.5 Mg (3 Ml) Ud) 3 ml IH RQ4 PRN PRN Reason: Shortness of Breath Last Admin: 09/05/18 14:00 Dose: 3 ml Colchicine (Colocrys) 0.6 mg PO BID [facility] Last Admin: 09/07/18 10:10 Dose: 0.6 mg Cyclobenzaprine HCl (Flexeril) 5 mg PO TID [facility] Last Admin: 09/07/18 10:10 Dose: 5 mg Dextrose (Dextrose 50% Inj) 0 ml IV STAT PRN; Protocol PRN Reason: Hypoglycemia Protocol Dextrose (Glutose 15) 0 gm PO ONCE PRN; Protocol PRN Reason: Hypoglycemia Protocol Diazepam (Valium) 5 mg PO BID [facility] Last Admin: 09/07/18 10:13 Dose: 5 mg Dicyclomine HCl (Bentyl) 20 mg PO TID [facility] Last Admin: 09/07/18 10:15 Dose: 20 mg Diltiazem HCl (Cardizem Cd) 180 mg PO BID [facility] Last Admin: 09/07/18 10:11 Dose: 180 mg Ergocalciferol (Drisdol 50,000 Intl Units Cap) 1 cap PO Q7D [facility] Last Admin: 09/03/18 11:35 Dose: 1 cap Fluticasone/Vilanterol (Breo Ellipta 100-25 Mcg Inh) 1 puff INH RQ24 [facility] Last Admin: 09/07/18 07:35 Dose: 1 puff Furosemide (Lasix) 20 mg PO DAILY [facility] Last Admin: 09/07/18 10:13 Dose: 20 mg Gabapentin (Neurontin) 300 mg PO HS [facility] Last Admin: 09/06/18 21:54 Dose: 300 mg Glipizide (Glucotrol) 10 mg PO BID [facility] Last Admin: 09/07/18 10:13 Dose: 10 mg Glucagon (Glucagen Diagnostic Kit) 0 mg IM STAT PRN; Protocol PRN Reason: Hypoglycemia Protocol Hydrocortisone (Cortef) 20 mg PO TID [facility] Last Admin: 09/07/18 10:14 Dose: 20 mg Metronidazole (Flagyl) 500 mg in 100 mls @ 100 mls/hr IVPB Q8H [facility]; Protocol Last Admin: 09/07/18 10:15 Dose: 100 mls/hr Azithromycin 500 mg/ Sodium (Chloride) 250 mls @ 167 mls/hr IVPB Q24H [facility]; Protocol Last Admin: 09/04/18 01:00 Dose: 167 mls/hr Dextrose (Dextrose 5% In Water 1000 Ml) 1,000 mls @ 0 mls/hr IV .Q0M PRN; Protocol PRN Reason: Hypoglycemia Protocol Insulin Aspart (Novolog) 14 unit SC AC [facility] Last Admin: 09/07/18 09:30 Dose: 14 u Insulin Aspart (Novolog) 0 unit SC ACHS [facility] Last Admin: 09/07/18 12:05 Dose: Not Given Insulin Glargine (Lantus) 20 unit SC HS [facility] Last Admin: 09/06/18 21:56 Dose: 20 unit Levothyroxine Sodium (Synthroid) 100 mcg PO 0630 [facility] Last Admin: 09/07/18 06:46 Dose: 100 mcg Magnesium Oxide (Mag-Ox) 400 mg PO BID [facility] Last Admin: 09/07/18 10:13 Dose: 400 mg Ondansetron HCl (Zofran Inj) 4 mg IVP Q8 PRN PRN Reason: Nausea/Vomiting Oxycodone/Acetaminophen (Percocet 5/325 Mg Tab) 1 tab PO Q6H PRN PRN Reason: Pain, severe (8-10) Stop: 09/09/18 13:17 Pantoprazole Sodium (Protonix Ec Tab) 40 mg PO DAILY [facility] Last Admin: 09/07/18 10:10 Dose: 40 mg Rivaroxaban (Xarelto) 20 mg PO DAILY [facility] Last Admin: 09/07/18 10:10 Dose: 20 mg Rosuvastatin Calcium (Crestor) 10 mg PO [facility] Last Admin: 09/06/18 21:54 Dose: 10 mg Saccharomyces Boulardii (Florastor) 250 mg PO Q12 [facility] Last Admin: 09/07/18 10:13 Dose: 250 mg Sertraline HCl (Zoloft) 25 mg PO DAILY [facility] Sitagliptin Phosphate (Januvia) 100 mg PO DAILY [facility] Last Admin: 09/07/18 10:10 Dose: 100 mg Sucralfate (Carafate Oral Susp) 1 gm PO ACS [facility] Last Admin: 09/07/18 06:47 Dose: 1 gm Trazodone HCl (Desyrel) 50 mg PO [facility] Vancomycin HCl (Vancocin 250mg Capsule) 250 mg PO QID [facility] Last Admin: 09/07/18 10:23 Dose: 250 mg Physical Exam - Constitutional Appears: Chronically Ill - Head Exam Head Exam: ATRAUMATIC, NORMOCEPHALIC - Respiratory Exam Respiratory Exam: Wheezes, NORMAL BREATHING PATTERN - Cardiovascular Exam Cardiovascular Exam: REGULAR RHYTHM - GI/Abdominal Exam GI & Abdominal Exam: Diminished Bowel Sounds, Soft Additional comments: obese - Rectal Exam Rectal Exam: Deferred - Extremities Exam Additional comments: obese with atrophy - Neurological Exam Neurological exam: Oriented x3 Additional comments: non-ambulatory due to right lower extremity fracture - Skin Skin Exam: Dry, Pallor Results - Vital Signs Recent Vital Signs: Last Vital Signs Temp 99.2 F 09/07/18 08:00 Pulse 105 H 09/07/18 09:15 Resp 20 09/07/18 08:00 BP 166/78 H 09/07/18 10:13 Pulse Ox 97 09/07/18 08:00 - Labs Result Diagrams: 09/09/18 07:22 09/09/18 07:22 Labs: Laboratory Results - last 24 hr 09/02/18 09/03/18 09/06/18 21:42 07:12 16:13 WBC RBC Hgb Hct MCV MCH MCHC RDW Plt Count MPV Neut % (Auto) Lymph % (Auto) [place] % (Auto) Eos % (Auto) Baso % (Auto) Neut # (Auto) Lymph # (Auto) [place] # (Auto) Eos # (Auto) Baso # (Auto) POC Glucose (mg/dL) 322 H Tot Grano/Lambda Ratio 1.70 Grano Light Chain Anal 146 L Lambda Light Chain Anal 86 L C. difficile Tox B Gene Detected H 09/06/18 09/07/18 09/07/18 21:10 06:03 11:06 WBC RBC Hgb Hct MCV MCH MCHC RDW Plt Count MPV Neut % (Auto) Lymph % (Auto) [place] % (Auto) Eos % (Auto) Baso % (Auto) Neut # (Auto) Lymph # (Auto) [place] # (Auto) Eos # (Auto) Baso # (Auto) POC Glucose (mg/dL) 366 H 268 H 206 H Tot Grano/Lambda Ratio Grano Light Chain Anal Lambda Light Chain Anal C. difficile Tox B Gene 09/07/18 11:53 WBC 9.3 RBC 3.79 L Hgb 8.7 L Hct 29.0 L MCV 76.5 L MCH 22.9 L MCHC 29.9 L RDW 19.8 H Plt Count 377 MPV 8.9 Neut % (Auto) 68.2 Lymph % (Auto) 19.8 L [place] % (Auto) 10.7 H Eos % (Auto) 0.8 Baso % (Auto) 0.5 Neut # (Auto) 6.4 Lymph # (Auto) 1.9 [place] # (Auto) 1.0 H Eos # (Auto) 0.1 Baso # (Auto) 0.0 POC Glucose (mg/dL) Tot Grano/Lambda Ratio Grano Light Chain Anal Lambda Light Chain Anal C. difficile Tox B Gene CA19-9 1800, CEA 42, CA125 40 - Imaging and Cardiology CT scan - abdomen Status: Image reviewed by me Additional comment: as per HPI Assessment & Plan (1) Pancreas neoplasm Assessment and Plan: Appears to have a resectable pancreas tumor given elevated CA19-9 and CEA. CA19-9 could also be due to pancreatic duct obstruction. There are no obvious liver metastasis or vascular invasion. However, she has multiple comorbidities that increase her risk for general anesthesia and in the post operative period. I had a long discussion with the patient to get a sense of what she wanted, given her current state of health. I also informed her, that if the mass is a pancreas cancer, there is at least a 40-50% chance of recurrence in the liver or lungs. I spoke to her brother as well in [place]. Will follow peripherally. Should she have a dramatic improve in her performance status, will reassess Status: Acute
--- NOTE | 2018-09-09 18:48 | CP.PCM.PN ---
Subjective - Date & Time of Evaluation Date of Evaluation: 09/09/18 Time of Evaluation: 09:00 - Subjective Subjective: events noted + c diff + pancreatic mass on CT IV and PO rx for c diff in progress Objective - Vital Signs/Intake and Output Vital Signs (last 24 hours): Temp Pulse Resp BP Pulse Ox 98.1 F 124 H 20 160/92 H 96 09/09/18 15:00 09/09/18 15:00 09/09/18 15:00 09/09/18 15:00 09/09/18 15:00 Intake and Output: 09/09/18 09/09/18 06:59 18:59 Output Total 200 Balance -200 - Medications Medications: Current Medications Acetaminophen (Tylenol 325mg Tab) 650 mg PO Q6 PRN PRN Reason: Pain, moderate (4-7) Albuterol/Ipratropium (Duoneb 3 Mg/0.5 Mg (3 Ml) Ud) 3 ml IH RQ4 PRN PRN Reason: Shortness of Breath Last Admin: 09/05/18 14:00 Dose: 3 ml Colchicine (Colocrys) 0.6 mg PO BID [facility] Last Admin: 09/09/18 18:19 Dose: 0.6 mg Cyclobenzaprine HCl (Flexeril) 5 mg PO TID [facility] Last Admin: 09/09/18 18:20 Dose: 5 mg Dextrose (Dextrose 50% Inj) 0 ml IV STAT PRN; Protocol PRN Reason: Hypoglycemia Protocol Dextrose (Glutose 15) 0 gm PO ONCE PRN; Protocol PRN Reason: Hypoglycemia Protocol Diazepam (Valium) 5 mg PO BID [facility] Last Admin: 09/09/18 18:17 Dose: 5 mg Dicyclomine HCl (Bentyl) 20 mg PO TID [facility] Last Admin: 09/09/18 18:30 Dose: 20 mg Diltiazem HCl (Cardizem Cd) 180 mg PO BID [facility] Last Admin: 09/09/18 18:17 Dose: 180 mg Ergocalciferol (Drisdol 50,000 Intl Units Cap) 1 cap PO Q7D [facility] Last Admin: 09/03/18 11:35 Dose: 1 cap Fluticasone/Vilanterol (Breo Ellipta 100-25 Mcg Inh) 1 puff INH RQ24 [facility] Last Admin: 09/09/18 07:45 Dose: 1 puff Furosemide (Lasix) 20 mg PO DAILY [facility] Last Admin: 09/09/18 10:20 Dose: 20 mg Gabapentin (Neurontin) 300 mg PO HS [facility] Last Admin: 09/08/18 22:21 Dose: 300 mg Glipizide (Glucotrol) 10 mg PO BID [facility] Last Admin: 09/09/18 18:17 Dose: 10 mg Glucagon (Glucagen Diagnostic Kit) 0 mg IM STAT PRN; Protocol PRN Reason: Hypoglycemia Protocol Hydrocortisone (Cortef) 20 mg PO TID [facility] Last Admin: 09/09/18 18:18 Dose: 20 mg Azithromycin 500 mg/ Sodium (Chloride) 250 mls @ 167 mls/hr IVPB Q24H [facility]; Pro tocol Last Admin: 09/04/18 01:00 Dose: 167 mls/hr Dextrose (Dextrose 5% In Water 1000 Ml) 1,000 mls @ 0 mls/hr IV .Q0M PRN; Protocol PRN Reason: Hypoglycemia Protocol Insulin Aspart (Novolog) 0 unit SC ACHS [facility] Last Admin: 09/09/18 18:20 Dose: Not Given Insulin Aspart (Novolog) 6 unit SC ACHS [facility] Last Admin: 09/09/18 17:20 Dose: 6 units Insulin Glargine (Lantus) 20 unit SC DAILY [facility] Levothyroxine Sodium (Synthroid) 100 mcg PO 0630 [facility] Last Admin: 09/09/18 06:41 Dose: 100 mcg Lisinopril (Zestril) 10 mg PO DAILY [facility] Last Admin: 09/09/18 14:44 Dose: 10 mg Magnesium Oxide (Mag-Ox) 400 mg PO BID [facility] Last Admin: 09/09/18 18:17 Dose: 400 mg Metronidazole (Flagyl) 500 mg PO Q8 [facility] Last Admin: 09/09/18 14:23 Dose: 500 mg Ondansetron HCl (Zofran Inj) 4 mg IVP Q8 PRN PRN Reason: Nausea/Vomiting Oxycodone/Acetaminophen (Percocet 5/325 Mg Tab) 2 tab PO Q6H PRN PRN Reason: Pain, moderate (4-7) Stop: 09/12/18 14:27 Pantoprazole Sodium (Protonix Ec Tab) 40 mg PO DAILY [facility] Last Admin: 09/09/18 10:17 Dose: 40 mg Rivaroxaban (Xarelto) 20 mg PO DAILY [facility] Last Admin: 09/09/18 10:19 Dose: 20 mg Rosuvastatin Calcium (Crestor) 10 mg PO HS [facility] Last Admin: 09/08/18 22:21 Dose: 10 mg Saccharomyces Boulardii (Florastor) 250 mg PO Q12 [facility] Last Admin: 09/09/18 10:17 Dose: 250 mg Sertraline HCl (Zoloft) 50 mg PO DAILY [facility] Sitagliptin Phosphate (Januvia) 100 mg PO DAILY [facility] Last Admin: 09/09/18 10:21 Dose: 100 mg Sucralfate (Carafate Oral Susp) 1 gm PO ACBHS [facility] Last Admin: 09/09/18 06:40 Dose: 1 gm Trazodone HCl (Desyrel) 50 mg PO HS [facility] Last Admin: 09/08/18 22:21 Dose: 50 mg Vancomycin HCl (Vancocin 250mg Capsule) 250 mg PO QID [facility] Last Admin: 09/09/18 14:23 Dose: 250 mg - Labs Labs: 09/09/18 07:22 09/09/18 07:22 PT 21.0 SECONDS (9.7-12.2) H 09/05/18 16:44 INR 1.9 09/05/18 16:44 APTT 28 SECONDS (21-34) 09/05/18 16:44 - Constitutional Appears: Non-toxic, Chronically Ill - Head Exam Head Exam: NORMOCEPHALIC - Eye Exam Eye Exam: absent: Scleral icterus Pupil Exam: NORMAL ACCOMODATION - ENT Exam ENT Exam: Mucous Membranes Dry, Normal External Ear Exam - Neck Exam Neck Exam: absent: Lymphadenopathy - Respiratory Exam Respiratory Exam: Decreased Breath Sounds - Cardiovascular Exam Cardiovascular Exam: REGULAR RHYTHM, +S1, +S2 - GI/Abdominal Exam GI & Abdominal Exam: Distended, Soft. absent: Tenderness - Rectal Exam Rectal Exam: Deferred - Exam Exam: NORMAL INSPECTION - Extremities Exam Extremities Exam: absent: Pedal Edema - Back Exam Back Exam: absent: CVA tenderness (L), CVA tenderness (R) - Neurological Exam Neurological Exam: Alert, Awake, CN II-XII Intact - Psychiatric Exam Psychiatric exam: Depressed - Skin Skin Exam: Dry Assessment and Plan (1) COPD (chronic obstructive pulmonary disease) Status: Acute (2) Closed fracture of right proximal tibia Status: Acute (3) Fever Status: Acute (4) Hyperglycemia Status: Acute (5) CHF (congestive heart failure) Status: Chronic (6) Diabetes mellitus Status: Chronic (7) HTN (hypertension) Status: Chronic (8) History of DVT (deep vein thrombosis) Status: Chronic (9) History of pulmonary embolus (PE) Status: Chronic (10) Hypothyroid Status: Chronic (11) SVT (supraventricular tachycardia) Status: Chronic (12) Sepsis Status: Suspected - Assessment and Plan (Free Text) Assessment: c diff imporovred severe COPD pancreatic mass- not a surgical candidate cont rx
[2018-09-09] MEDS: (Lantus) Insulin Glargine, Recombinant SC SCH (21:40)
--- NOTE | 2018-09-09 23:45 | PN ---
DATE: 09/09/2018 LOCATION: Room 553, bed A. SUBJECTIVE: This is a 63-year-old female, seen and examined in rounds without reported significant clinical changes or reported active bleeding with pain of the mainly throat, as well as back and abdomen, with immobilizer to the right leg is intact. The entire chart is reviewed including but not limited to the most recent lab and radiology study results, current and the previous medication list, current and the previous medical events. Case discussed with the staff at length. The patient denied any chest pain, significant shortness of breath, palpitation or evidence of active GI bleeding, but poor oral intake. Today's lab showed white blood cells of 13.3, hemoglobin 8.1, hematocrit 27.1 with low indices highly suggestive of hypochromic microcytic anemia with thrombocytopenia of 415, potassium 3.5, blood glucose level 172, BUN 26 with normal creatinine, calcium 8.3, AST is normal, ALT 63, albumin 2.7, total protein 4.8, most likely secondary to recent poor oral intake and malnutrition. PHYSICAL EXAMINATION: GENERAL: A 63-year-old female. VITAL SIGNS: Afebrile with pulse of 118, respiratory 20-22, blood pressure of 156/90. HEENT: Showed pale dry oral mucous membrane. Nonicteric sclerae. LUNGS: Few scattered crepitation. Decreased air entry at bases. HEART: Positive S1 and S2. ABDOMEN: Soft with mild generalized tenderness. No mass or organomegaly. No rebound tenderness or guarding. EXTREMITIES: With right lower foot immobilizer in place without significant edema, clubbing or cyanosis. The patient still has right knee tenderness. IMPRESSION: 1. Pancreatic mass lesion diagnosed by CAT scan of the abdomen and pelvis. 2. Hypochromic microcytic anemia secondary to chronic disease. The possibility of occult gastrointestinal malignancy should be ruled in or out upper versus lower. 3. Recurrent pseudomembranous colitis, improving clinically. However, the patient still has leukocytosis, on antibiotics. 4. Prerenal azotemia with dehydration. 5. Malnutrition with hypoalbuminemia. 6. Known history of poorly controlled diabetes mellitus, history of hypertension, congestive heart failure with hypothyroidism as well as fibromyalgia. 7. Reported history of deep vein thrombosis with pulmonary embolism. 8. Elevated CEA level, rule out lower gastrointestinal malignancy. SUGGESTIONS: 1. Continue current management. 2. Endoscopic evaluation of the GI tract when the patient is more stable clinically. 3. Oncology/hematology consult. 4. Further recommendation to follow. Cara Piedra MD
--- NOTE | 2018-09-10 01:21 | PN ---
DATE: 09/09/2018 ENDOCRINOLOGY FOLLOWUP NOTE LOCATION: Room 554. SUBJECTIVE: This is a 63-year-old female with recent uncontrolled type 2 insulin-requiring diabetes with recent glycemic fluctuations related to the variability of her oral intake as noted thereof. Her glucose levels have ranged from 94 to 172 and 195 mg/dL today as noted. Her bedtime glucose was 222 mg/dL. Her chemistries today showed a BUN of 26, sodium 138, potassium 3.5, chloride 108, CO2 of 23, glucose 87, and creatinine 1. So at this time, we will modify once again her basal and bolus insulin regimen and lower the NovoLog to 6 units t.i.d. before meals to start today as ordered. We will also modify and lower her basal insulin with Lantus to be given as 20 units subcutaneous at bedtime daily to start tonight as ordered. We will also modify her coverage scale to obviate hypoglycemia and detailed orders have been given. Also we will continue the dual oral hypoglycemic drug therapy given as glipizide at 10 mg b.i.d. before meals and Januvia given as 50 mg once daily as ordered. We will obtain serial chemistries and supplement accordingly as needed. We will follow and advised accordingly. Neeru Dickson MD
[2018-09-10] MEDS: Levothyroxine 100 MCG TAB PO SCH (06:46)
[2018-09-10] MEDS: Sucralfate 1 gm/10 ml Oral Susp UD PO SCH ×2 (06:46→21:14)
[2018-09-10 07:31] LABS: BASO # 0.1 K/uL (0.0-0.2); BASO % 0.5 % (0.0-2.0); EOS % 0.3 % (0.0-4.0); HEMOGLOBIN 8.4 g/dL (11.0-16.0); LYMPH % 15.6 % (20.0-40.0); MEAN CORPUSCULAR HEMOGLOBIN 22.6 pg (27.0-31.0); MEAN CORPUSCULAR HGB CONC 29.8 g/dL (33.0-37.0); MEAN PLATELET VOLUME 8.8 fL (7.2-11.7); MONO # 1.2 K/uL (0.0-0.8); MONO % 9.3 % (0.0-10.0); NEUT # 9.4 K/uL (1.8-7.0); NEUT % 74.3 % (50.0-75.0); RBC 3.73 Mil/uL (3.80-5.20); RED CELL DISTRIBUTION WIDTH 20.3 % (11.5-14.5); WHITE BLOOD COUNT 12.6 K/uL (4.8-10.8)
[2018-09-10] MEDS: Fluticasone-Vilanterol 100/25mcg Diskus INH SCH (07:40)
[2018-09-10] MEDS: (Novolog) Insulin Aspart, Recombinant 100 u/ml 10 ml vial SC SCH ×7 (07:43→21:26)
[2018-09-10 08:00] LABS: ALB/GLOB RATIO 1.2 (1.0-2.1); ALBUMIN 2.8 g/dL (3.5-5.0); ALT/SGPT 51 U/L (9-52); AST/SGOT 40 U/L (14-36); BLOOD UREA NITROGEN 27 mg/dL (7-17); CALCIUM 8.3 mg/dl (8.6-10.4); GFR NON-AFRICAN AMERICAN > 60
[2018-09-10] MEDS: diltiaZEM 180 mg/24 Hours CD Cap PO SCH ×2 (09:55→17:29)
[2018-09-10] MEDS: Ergocalciferol 50,000 Intl Units Cap PO SCH (09:56)
[2018-09-10] MEDS: Pantoprazole 40 mg EC Tab PO SCH (09:56)
[2018-09-10] MEDS: Vancomycin Hydrochloride 250 mg Capsule (Oral) PO SCH ×4 (09:57→22:20)
[2018-09-10] MEDS: Magnesium Oxide 400 mg Tab UD PO SCH ×2 (09:57→17:29)
[2018-09-10] MEDS: Saccharomyces Boulardi 250 mg Cap PO SCH ×2 (09:58→21:26)
[2018-09-10] MEDS: Albuterol-Ipratrop 3 mg / 0.5 (3 ml) UD IH PRN (11:25)
--- NOTE | 2018-09-10 12:14 | PN ---
DATE: 09/10/2018 LOCATION: 554. SUBJECTIVE: This is a 63-year-old female seen and examined early in rounds without significant clinical changes or reported active bleeding, but with complaint of generalized body ache, especially in the left foot as well as midepigastric and midabdominal line, radiates to the back on and off. Denied any actual chest pain, palpitation or significant increase of shortness of breath. The patient seen by Endocrinology and ID cruise consultant recently. Episodes of diarrhea had been gradually subsiding. The patient on IV and p.o. antibiotics. Most recent lab results for today is still pending, however, the patient still have leukocytosis with low hemoglobin/hematocrit indicative of hypochromic microcytic anemia, platelet count of 415 with the latest blood glucose level of 199 with low calcium, low albumin, and low total protein. PHYSICAL EXAMINATION: GENERAL: A 63-year-old female. VITAL SIGNS: Afebrile with pulse of 118, respiratory rate 20-22, blood pressure 132/78. HEENT: Showed pale dry oral mucous membrane. Nonicteric sclerae. LUNGS: Few scattered crepitation. Decreased air entry at bases. HEART: Positive S1 and S2. ABDOMEN: Soft with mild generalized tenderness. No mass or organomegaly. No rebound tenderness or guarding. EXTREMITIES: Lower extremities, mild edematous changes. No clubbing or cyanosis. No reported new neurological deficits, sensory or motor. The right lower extremity, immobilizer is still in place. No occult neurological deficits noted recently. IMPRESSION: 1. Hypochromic microcytic anemia. 2. Pancreatic mass with abnormal CAT scan of the abdomen and pelvis, possibility of pancreatic cancer was raised. 3. Elevated CEA level to rule out lower gastrointestinal tract occult malignancy. 4. Recurrent episodes of pseudomembranous colitis, improving clinically, the patient needs to repeat clostridium difficile toxin and antigen. 5. Known history of but not limited to poorly controlled diabetes mellitus, congestive heart failure, hypertension, hypothyroidism, and fibromyalgia. 6. Reported history of deep venous thrombosis with pulmonary embolus. SUGGESTIONS: 1. Continue current management. 2. Repeat stool for occult blood. 3. Endoscopic evaluation of the GI tract only when the patient is more stable clinically. Further recommendation to follow. 4. The patient has to have pancreatic mass biopsy most likely by the IR team. We will discuss the case with the radiology staff as well as Dr. Gutierres and the patient's . Cara Piedra MD
[2018-09-10] MEDS: Oxycodone/Acetaminophen 5/325 mg Tab PO PRN (13:11)
[2018-09-10] MEDS: (Lantus) Insulin Glargine, Recombinant SC SCH (21:15)
[2018-09-10] MEDS ORDERED: (Lantus) Insulin Glargine, Recombinant SC SCH (22:00)
[2018-09-11] MEDS: Sucralfate 1 gm/10 ml Oral Susp UD PO SCH ×2 (06:36→21:35)
[2018-09-11] MEDS: Levothyroxine 100 MCG TAB PO SCH (06:37)
[2018-09-11] MEDS: (Novolog) Insulin Aspart, Recombinant 100 u/ml 10 ml vial SC SCH ×7 (07:09→21:08)
--- NOTE | 2018-09-11 07:24 | CP.PCM.CON ---
History of Present Illness - History of Present Illness History of Present Illness: patient seen 1614, 09/05/18 I was asked to see patient by Dr Gutierres. Lisandra is a 63 year old female with HTN, hyperchoelsterolemia who presents with fever. She is s/p recent orthopaedic procedure. She has had previous cardiac care with Dr Argueta. She developed fever in [facility] and was brought to the ER. She was noted to have sinus tachycardia. She denies chest pain. Previous cardiac workup in [place] revealed normal perfusion and LV function Review of Systems - Constitutional Constitutional: absent: As Per HPI, Anorexia, Chills, Daytime Sleepiness, Excessive Sweating, Fatigue, Fever, Frequent Falls, Headache, Increased Appetite, Lethargy, Malaise, Night Sweats, Snoring, Sleep Apnea, Weight Gain, Weight Loss, Weakness, Other - EENT Eyes: absent: As Per HPI, Blind Spots, Blurred Vision, Change in Vision, Decreased Night Vision, Diplopia, Discharge, Dry Eye, Exophthalmos, Floaters, Irritation, Itchy Eyes, Loss of Peripheral Vision, Pain, Photophobia, Requires Corrective Lenses, Sees Flashes, Spots in Vision, Tunnel Vision, Other Visual Disturbances, Loss of Vision, Other Ears: absent: As Per HPI, Decreased Hearing, Ear Discharge, Ear Pain, Tinnitus, Abnormal Hearing, Disequilibrium, Dizziness, Other Nose/Mouth/Throat: absent: As Per HPI, Epistaxis, Nasal Congestion, Nasal Discharge, Nasal Obstruction, Nasal Trauma, Nose Pain, Post Nasal Drip, Sinus Pain, Sinus Pressure, Bleeding Gums, Change in Voice, Dental Pain, Dry Mouth, Dysphagia, Halitosis, Hoarsness, Lip Swelling, Mouth Lesions, Mouth Pain, Odynophagia, Sore Throat, Throat Swelling, Tongue Swelling, Facial Pain, Neck Pain, Neck Mass, Other - Cardiovascular Cardiovascular: Rapid Heart Rate - Respiratory Respiratory: absent: As Per HPI, Cough, Dyspnea, Hemoptysis, Dyspnea on Exertion, Wheezing, Snoring, Stridor, Pain on Inspiration, Chest Congestion, Excessive Mucous Production, Change in Mucous Color, Pain with Coughing, Other - Gastrointestinal Gastrointestinal: absent: As Per HPI, Abdominal Pain, Belching, Bloating, Change in Bowel Habits, Change in Stool Character, Coffee Ground Emesis, Constipation, Cramping, Diarrhea, Dyspepsia, Dysphagia, Early Satiety, Excessive Flatus, Fecal Incontinence, Heartburn, Hematemesis, Hematochezia, Loose Stools, Melena, Nausea, Odynophagia, Temesmus, Vomiting, Other - Genitourinary Genitourinary: absent: As Per HPI, Change in Urinary Stream, Difficulty Urinating, Dysuria, Flank Pain, Hematuria, Pyuria, Nocturia, Urinary Incontinence, Urinary Frequency, Urinary Hesitance, Urinary Urgency, Voiding Freq/Small Amts, Freq UTI, Hx Renal/Bladder Calculi, Hx /Renal Surgery, Bladder Distension, Other - Musculoskeletal Musculoskeletal: absent: As Per HPI, Abnormal Gait, Arthralgias, Atrophy, Back Pain, Deformity, Joint Swelling, Limited Range of Motion, Loss of Height, Muscle Cramps, Muscle Weakness, Myalgias, Neck Pain, Numbness, Radiating Pain into L imb, Stiffness, Tingling, Other - Integumentary Integumentary: absent: As Per HPI, Acne, Alopecia, Bleeding Lesions, Change in Hair, Change in Nails, Change in Pigmentation, Changing Lesions, Dry Skin, Erythema, Furuncle, Hirsutism, Lesions, New Lesions, Non-Healing Lesions, Photosensitivity, Pruritus, Rash, Skin Pain, Skin Ulcer, Sores, Striae, Swelling, Unusual Bruising, Wounds, Jaundice, Other - Neurological Neurological: absent: As Per HPI, Abnormal Gait, Abnormal Hearing, Abnormal Movements, Abnormal Speech, Behavioral Changes, Burning Sensations, Confusion, Convulsions, Disequilibrium, Dizziness, Numbness, Focal Weakness, Frequent Falls, Headaches, Lack of Coordination, Loss of Vision, Memory Loss, Paresthe tang, Radicular Pain, Restless Legs, Sensory Deficit, Syncope, Tingling, Tremor, Vertigo, Weakness, Other Visual Disturbances, Other - Psychiatric Psychiatric: absent: As Per HPI, Abnormal Sleep Pattern, Anhedonia, Anxiety, Auditory Hallucinations, Behavioral Changes, Change in Appetite, Change in Libido, Confusion, Depression, Difficulty Concentrating, Hallucinations, Homicidal Ideation, Hopelessness, Irritability, Memory Loss, Mood Swings, Panic Attacks, Paranoia, Suicidal Ideation, Visual Hallucinations, Tactile Hallucinations, Other - Endocrine Endocrine: absent: As Per HPI, Change in Body Appearance, Change in Libido, Cold Intolorance, Deepening of Voice, Excessive Sweating, Fatigue, Flushing, Heat Intolorance, Increase in Ring/Shoe/Hat Size, Palpitations, Polydipsia, Polyphagia, Polyuria, Other - Hematologic/Lymphatic Hematologic: absent: As Per HPI, Easy Bleeding, Easy Bruising, Lymphadenopathy, Other Past Patient History - Infectious Disease Hx of Infectious Diseases: None, C.diff - Past Medical History & Family History Past Medical History?: Yes Past Family History: Reviewed and not pertinent - Past Social History Smoking Status: 2 pks per day x 20 years - CARDIAC Hx Congestive Heart Failure: Yes Hx Hypercholesterolemia: Yes Hx Hypertension: Yes - PULMONARY Hx Chronic Obstructive Pulmonary Disease (COPD): Yes - NEUROLOGICAL Hx Neurological Disorder: Yes HX Cerebrovascular Accident: Yes - HEENT Hx HEENT Problems: No - RENAL Hx Chronic Kidney Disease: No - ENDOCRINE/METABOLIC Hx Endocrine Disorders: Yes Hx Hypothyroidism: Yes - HEMATOLOGICAL/ONCOLOGICAL Hx Blood Disorders: Yes Hx Anemia: Yes - INTEGUMENTARY Hx Dermatological Problems: No - MUSCULOSKELETAL/RHEUMATOLOGICAL Hx Rheumatoid Arthritis: Yes - GASTROINTESTINAL Hx Gastrointestinal Disorders: Yes Hx Gall Bladder Disease: Yes - GENITOURINARY/GYNECOLOGICAL Hx Genitourinary Disorders: Yes Hx Urinary Tract Infection: Yes - PSYCHIATRIC Hx Psychophysiologic Disorder: Yes Hx Anxiety: Yes Hx Depression: Yes Hx Substance Use: No - SURGICAL HISTORY Hx Surgeries: Yes Hx Appendectomy: No Hx Cholecystectomy: Yes - ANESTHESIA Hx Anesthesia: Yes Hx Anesthesia Reactions: Yes (DIFFICULTY BREATHING) Meds Allergies/Adverse Reactions: Allergies Allergy/AdvReac Type Severity Reaction Status Date / Time No Known Allergies Allergy Verified 09/01/18 17:29 - Medications Medications: Current Medications Acetaminophen (Tylenol 325mg Tab) 650 mg PO Q6 PRN PRN Reason: Pain, moderate (4-7) Albuterol/Ipratropium (Duoneb 3 Mg/0.5 Mg (3 Ml) Ud) 3 ml IH RQ4 PRN PRN Reason: Shortness of Breath Last Admin: 09/10/18 11:25 Dose: 3 ml Colchicine (Colocrys) 0.6 mg PO BID [facility] Last Admin: 09/10/18 17:29 Dose: 0.6 mg Cyclobenzaprine HCl (Flexeril) 5 mg PO TID [facility] Last Admin: 09/10/18 17:29 Dose: 5 mg Dextrose (Dextrose 50% Inj) 0 ml IV STAT PRN; Protocol PRN Reason: Hypoglycemia Protocol Dextrose (Glutose 15) 0 gm PO ONCE PRN; Protocol PRN Reason: Hypoglycemia Protocol Diazepam (Valium) 5 mg PO BID [facility] Last Admin: 09/10/18 17:29 Dose: 5 mg Dicyclomine HCl (Bentyl) 20 mg PO TID [facility] Last Admin: 09/10/18 17:29 Dose: 20 mg Diltiazem HCl (Cardizem Cd) 180 mg PO BID [facility] Last Admin: 09/10/18 17:29 Dose: 180 mg Ergocalciferol (Drisdol 50,000 Intl Units Cap) 1 cap PO Q7D [facility] Last Admin: 09/10/18 09:56 Dose: 1 cap Fluticasone/Vilanterol (Breo Ellipta 100-25 Mcg Inh) 1 puff INH RQ24 [facility] Last Admin: 09/10/18 07:40 Dose: 1 puff Furosemide (Lasix) 20 mg PO DAILY [facility] Last Admin: 09/10/18 09:57 Dose: 20 mg Gabapentin (Neurontin) 300 mg PO HS [facility] Last Admin: 09/10/18 21:15 Dose: 300 mg Glipizide (Glucotrol) 10 mg PO BID [facility] Last Admin: 09/10/18 17:29 Dose: 10 mg Glucagon (Glucagen Diagnostic Kit) 0 mg IM STAT PRN; Protocol PRN Reason: Hypoglycemia Protocol Hydrocortisone (Cortef) 20 mg PO TID [facility] Last Admin: 09/10/18 17:31 Dose: 20 mg Azithromycin 500 mg/ Sodium (Chloride) 250 mls @ 167 mls/hr IVPB Q24H [facility]; Protocol Last Admin: 09/04/18 01:00 Dose: 167 mls/hr Dextrose (Dextrose 5% In Water 1000 Ml) 1,000 mls @ 0 mls/hr IV .Q0M PRN; Protocol PRN Reason: Hypoglycemia Protocol Insulin Aspart (Novolog) 0 unit SC ACHS [facility] Last Admin: 09/11/18 07:09 Dose: Not Given Insulin Aspart (Novolog) 6 unit SC AC [facility] Last Admin: 09/10/18 17:30 Dose: 6 units Insulin Glargine (Lantus) 20 unit SC HS [facility] Last Admin: 09/10/18 21:15 Dose: 20 unit Levothyroxine Sodium (Synthroid) 100 mcg PO 0630 [facility] Last Admin: 09/11/18 06:37 Dose: 100 mcg Lisinopril (Zestril) 10 mg PO DAILY [facility] Last Admin: 09/10/18 09:56 Dose: 10 mg Magnesium Oxide (Mag-Ox) 400 mg PO BID [facility] Last Admin: 09/10/18 17:29 Dose: 400 mg Metronidazole (Flagyl) 500 mg PO Q8 [facility] Last Admin: 09/11/18 06:36 Dose: 500 mg Ondansetron HCl (Zofran Inj) 4 mg IVP Q8 PRN PRN Reason: Nausea/Vomiting Oxycodone/Acetaminophen (Percocet 5/325 Mg Tab) 2 tab PO Q6H PRN PRN Reason: Pain, moderate (4-7) Stop: 09/12/18 14:27 Last Admin: 09/10/18 13:11 Dose: 2 tab Pantoprazole Sodium (Protonix Ec Tab) 40 mg PO DAILY [facility] Last Admin: 09/10/18 09:56 Dose: 40 mg Rivaroxaban (Xarelto) 20 mg PO DAILY [facility] Last Admin: 09/10/18 09:55 Dose: 20 mg Rosuvastatin Calcium (Crestor) 10 mg PO [facility] Last Admin: 09/10/18 21:15 Dose: 10 mg Saccharomyces Boulardii (Florastor) 250 mg PO Q12 [facility] Last Admin: 09/10/18 21:26 Dose: 250 mg Sertraline HCl (Zoloft) 50 mg PO DAILY [facility] Last Admin: 09/10/18 09:56 Dose: 50 mg Sitagliptin Phosphate (Januvia) 100 mg PO DAILY [facility] Last Admin: 09/10/18 09:56 Dose: 100 mg Sucralfate (Carafate Oral Susp) 1 gm PO ACBHS [facility] Last Admin: 09/11/18 06:36 Dose: 1 gm Trazodone HCl (Desyrel) 50 mg PO [facility] Last Admin: 09/10/18 21:15 Dose: 50 mg Vancomycin HCl (Vancocin 250mg Capsule) 250 mg PO QID [facility] Last Admin: 09/10/18 22:20 Dose: 250 mg Physical Exam - Constitutional Appears: Non-toxic - Head Exam Head Exam: NORMAL INSPECTION - Eye Exam Eye Exam: Normal appearance - ENT Exam ENT Exam: Mucous Membranes Moist - Neck Exam Neck exam: Positive for: Full Rom - Respiratory Exam Respiratory Exam: NORMAL BREATHING PATTERN - Cardiovascular Exam Cardiovascular Exam: Tachycardia, REGULAR RHYTHM - GI/Abdominal Exam GI & Abdominal Exam: Normal Bowel Sounds - Rectal Exam Rectal Exam: Deferred - Extremities Exam Extremities exam: Positive for: pedal edema - Back Exam Back exam: NORMAL INSPECTION - Neurological Exam Neurological exam: Alert, Oriented x3 - Psychiatric Exam Psychiatric exam: Normal Affect - Skin Skin Exam: Normal Color Results - Vital Signs Recent Vital Signs: Last Vital Signs Temp 97.9 F 09/10/18 23:25 Pulse 111 H 09/11/18 01:45 Resp 20 09/10/18 23:25 BP 118/70 09/10/18 23:25 Pulse Ox 96 09/10/18 23:25 - Labs Result Diagrams: 09/15/18 07:35 09/15/18 07:35 Labs: Laboratory Results - last 24 hr 09/10/18 09/10/18 09/10/18 01:09 05:44 07:24 WBC 12.6 H RBC 3.73 L Hgb 8.4 L Hct 28.3 L MCV 76.0 L MCH 22.6 L MCHC 29.8 L RDW 20.3 H Plt Count 402 H MPV 8.8 Neut % (Auto) 74.3 Lymph % (Auto) 15.6 L Baker % (Auto) 9.3 Eos % (Auto) 0.3 Baso % (Auto) 0.5 Neut # (Auto) 9.4 H Lymph # (Auto) 2.0 Baker # (Auto) 1.2 H Eos # (Auto) 0.0 Baso # (Auto) 0.1 Sodium Potassium Chloride Carbon Dioxide Anion Gap BUN Creatinine Est GFR ( Amer) Est GFR (Non-Af Amer) POC Glucose (mg/dL) 235 H Random Glucose Calcium Total Bilirubin AST ALT Alkaline Phosphatase Total Protein Albumin Globulin Albumin/Globulin Ratio C. difficile Ag & Toxin Negative 09/10/18 09/10/18 09/10/18 07:24 11:52 16:13 WBC RBC Hgb Hct MCV MCH MCHC RDW Plt Count MPV Neut % (Auto) Lymph % (Auto) Baker % (Auto) Eos % (Auto) Baso % (Auto) Neut # (Auto) Lymph # (Auto) Baker # (Auto) Eos # (Auto) Baso # (Auto) Sodium 137 Potassium 3.8 Chloride 107 Carbon Dioxide 25 Anion Gap 9 L BUN 27 H Creatinine 0.9 Est GFR ( Amer) > 60 Est GFR (Non-Af Amer) > 60 POC Glucose (mg/dL) 286 H 292 H Random Glucose 218 H D Calcium 8.3 L Total Bilirubin 0.2 AST 40 H ALT 51 Alkaline Phosphatase 114 Total Protein 5.0 L Albumin 2.8 L Globulin 2.2 Albumin/Globulin Ratio 1.2 C. difficile Ag & Toxin 09/10/18 09/11/18 09/11/18 20:58 01:59 06:33 WBC RBC Hgb Hct MCV MCH MCHC RDW Plt Count MPV Neut % (Auto) Lymph % (Auto) Baker % (Auto) Eos % (Auto) Baso % (Auto) Neut # (Auto) Lymph # (Auto) Baker # (Auto) Eos # (Auto) Baso # (Auto) Sodium Potassium Chloride Carbon Dioxide Anion Gap BUN Creatinine Est GFR ( Amer) Est GFR (Non-Af Amer) POC Glucose (mg/dL) 262 H 181 H 100 Random Glucose Calcium Total Bilirubin AST ALT Alkaline Phosphatase Total Protein Albumin Globulin Albumin/Globulin Ratio C. difficile Ag & Toxin - EKG Data EKG Interpreted by: Myself EKG shows normal: Sinus rhythm Rate: Tachycardia Assessment & Plan (1) Tachycardia Assessment and Plan: likley due to fever. can add cardizem and titrate. no evidence of myocardial ischemia. Status: Acute (2) HTN (hypertension) Assessment and Plan: blood pressure control.. continue cardizem Status: Chronic Priority: Medium
[2018-09-11] MEDS: Albuterol-Ipratrop 3 mg / 0.5 (3 ml) UD IH PRN (07:35)
[2018-09-11] MEDS: Fluticasone-Vilanterol 100/25mcg Diskus INH SCH (07:35)
[2018-09-11 09:19] LABS: HEMOGLOBIN 8.5 g/dL (11.0-16.0); MEAN CELL VOLUME 75.9 fL (81.0-99.0); MEAN CORPUSCULAR HEMOGLOBIN 22.3 pg (27.0-31.0); MEAN CORPUSCULAR HGB CONC 29.3 g/dL (33.0-37.0); MEAN PLATELET VOLUME 8.5 fL (7.2-11.7); RBC 3.81 Mil/uL (3.80-5.20); RED CELL DISTRIBUTION WIDTH 20.1 % (11.5-14.5); WHITE BLOOD COUNT 13.6 K/uL (4.8-10.8)
[2018-09-11] MEDS: Vancomycin Hydrochloride 250 mg Capsule (Oral) PO SCH ×4 (09:23→21:30)
[2018-09-11] MEDS: Magnesium Oxide 400 mg Tab UD PO SCH ×2 (09:24→17:28)
[2018-09-11] MEDS: Pantoprazole 40 mg EC Tab PO SCH (09:24)
[2018-09-11] MEDS: Saccharomyces Boulardi 250 mg Cap PO SCH ×2 (09:24→21:35)
[2018-09-11] MEDS: diltiaZEM 180 mg/24 Hours CD Cap PO SCH ×2 (09:25→17:29)
[2018-09-11 10:09] LABS: ALBUMIN 2.9 g/dL (3.5-5.0); BLOOD UREA NITROGEN 28 mg/dL (7-17); CALCIUM 8.1 mg/dl (8.6-10.4); GFR NON-AFRICAN AMERICAN > 60
[2018-09-11 10:10] LABS: ALB/GLOB RATIO 1.2 (1.0-2.1); ALT/SGPT 56 U/L (9-52); AST/SGOT 30 U/L (14-36)
[2018-09-11] MEDS: Oxycodone/Acetaminophen 5/325 mg Tab PO PRN ×2 (10:15→17:31)
[2018-09-11 11:19] LABS: LYMPH # 2.2 K/uL (1.0-4.3); NEUT # 10.4 K/uL (1.8-7.0)
--- NOTE | 2018-09-11 13:46 | PN ---
DATE: 09/11/2018 ENDOCRINOLOGY FOLLOWUP NOTE LOCATION: Room 554. SUBJECTIVE: This is a 63-year-old female with recent uncontrolled type 2 insulin-requiring diabetes presenting here with acute exacerbation of COPD, currently on oral steroid therapy as given, and is now being followed closely for metabolic management. Her glycemic levels were fluctuating, but improved and her glucose levels overnight have ranged from 100 to 181 and 262 mg/dL. LABORATORY DATA: Her chemistry showed a BUN of 28, sodium 140, potassium 3.2, chloride 108, CO2 of 25, glucose 62 and creatinine 0.9. ASSESSMENT: This is a 63-year-old female with uncontrolled and decompensated type 2 insulin requiring diabetes with extremes of glycemic fluctuations related to the variability of her oral intake with recent gastrointestinal evaluation for pancreatic mass lesion, currently undergoing gastrointestinal workup at this time. She also presented with acute exacerbation of chronic obstructive pulmonary disease and concomitant pneumonia with bacteremia and ongoing IV antibiotic management as given. PLAN OF MANAGEMENT: We will modify once again her basal and bolus insulin regimen and lower the basal insulin with Lantus lowered to 18 units subcutaneous at bedtime daily to start tonight. We will also continue the low dose correction scale using NovoLog insulin as ordered to obviate hypoglycemia. Moreover, we will modify her prandial insulin and increase the NovoLog to 8 units t.i.d. before meals prescribed today as ordered. We will titrate incrementally as indicated to optimize metabolic control. We will obtain serial chemistries and supplement according as needed. We will follow. Neeru Dickson MD
--- NOTE | 2018-09-11 15:29 | CP.PCM.PN ---
Subjective - Date & Time of Evaluation Date of Evaluation: 09/11/18 Time of Evaluation: 09:00 - Subjective Subjective: seen on rounds examined labs and cultures reviewed IV antibiotics ordered Objective - Vital Signs/Intake and Output Vital Signs (last 24 hours): Temp Pulse Resp BP Pulse Ox 98 F 113 H 20 138/78 97 09/11/18 07:00 09/11/18 12:50 09/11/18 07:00 09/11/18 09:26 09/11/18 07:00 Intake and Output: 09/11/18 09/11/18 06:59 18:59 Intake Total 700 Output Total 500 Balance 200 - Medications Medications: Current Medications Acetaminophen (Tylenol 325mg Tab) 650 mg PO Q6 PRN PRN Reason: Pain, moderate (4-7) Albuterol/Ipratropium (Duoneb 3 Mg/0.5 Mg (3 Ml) Ud) 3 ml IH RQ4 PRN PRN Reason: Shortness of Breath Last Admin: 09/11/18 07:35 Dose: 3 ml Colchicine (Colocrys) 0.6 mg PO BID [facility] Last Admin: 09/11/18 09:24 Dose: 0.6 mg Cyclobenzaprine HCl (Flexeril) 5 mg PO TID [facility] Last Admin: 09/11/18 13:03 Dose: 5 mg Dextrose (Dextrose 50% Inj) 0 ml IV STAT PRN; Protocol PRN Reason: Hypoglycemia Protocol Dextrose (Glutose 15) 0 gm PO ONCE PRN; Protocol PRN Reason: Hypoglycemia Protocol Diazepam (Valium) 5 mg PO BID [facility] Last Admin: 09/11/18 09:24 Dose: 5 mg Dicyclomine HCl (Bentyl) 20 mg PO TID [facility] Last Admin: 09/11/18 13:06 Dose: 20 mg Diltiazem HCl (Cardizem Cd) 180 mg PO BID [facility] Last Admin: 09/11/18 09:25 Dose: 180 mg Ergocalciferol (Drisdol 50,000 Intl Units Cap) 1 cap PO Q7D [facility] Last Admin: 09/10/18 09:56 Dose: 1 cap Fluticasone/Vilanterol (Breo Ellipta 100-25 Mcg Inh) 1 puff INH RQ24 [facility] Last Admin: 09/11/18 07:35 Dose: 1 puff Furosemide (Lasix) 20 mg PO DAILY [facility] Last Admin: 09/11/18 09:26 Dose: 20 mg Gabapentin (Neurontin) 300 mg PO HS [facility] Last Admin: 09/10/18 21:15 Dose: 300 mg Glipizide (Glucotrol) 10 mg PO BID [facility] Last Admin: 09/11/18 09:24 Dose: 10 mg Glucagon (Glucagen Diagnostic Kit) 0 mg IM STAT PRN; Protocol PRN Reason: Hypoglycemia Protocol Hydrocortisone (Cortef) 20 mg PO TID [facility] Last Admin: 09/11/18 13:06 Dose: 20 mg Azithromycin 500 mg/ Sodium (Chloride) 250 mls @ 167 mls/hr IVPB Q24H [facility]; Protocol Last Admin: 09/04/18 01:00 Dose: 167 mls/hr Dextrose (Dextrose 5% In Water 1000 Ml) 1,000 mls @ 0 mls/hr IV .Q0M PRN; Protocol PRN Reason: Hypoglycemia Protocol Insulin Aspart (Novolog) 0 unit SC ACHS [facility] Last Admin: 09/11/18 12:06 Dose: Not Given Insulin Aspart (Novolog) 8 unit SC AC [facility] Last Admin: 09/11/18 12:06 Dose: Not Given Insulin Glargine (Lantus) 18 unit SC HS [facility] Levothyroxine Sodium (Synthroid) 100 mcg PO 0630 [facility] Last Admin: 09/11/18 06:37 Dose: 100 mcg Lisinopril (Zestril) 10 mg PO DAILY [facility] Last Admin: 09/11/18 09:24 Dose: 10 mg Magnesium Oxide (Mag-Ox) 400 mg PO BID [facility] Last Admin: 09/11/18 09:24 Dose: 400 mg Metronidazole (Flagyl) 500 mg PO Q8 [facility] Last Admin: 09/11/18 13:03 Dose: 500 mg Ondansetron HCl (Zofran Inj) 4 mg IVP Q8 PRN PRN Reason: Nausea/Vomiting Oxycodone/Acetaminophen (Percocet 5/325 Mg Tab) 2 tab PO Q6H PRN PRN Reason: Pain, moderate (4-7) Stop: 09/12/18 14:27 Last Admin: 09/11/18 10:15 Dose: 2 tab Pantoprazole Sodium (Protonix Ec Tab) 40 mg PO DAILY [facility] Last Admin: 09/11/18 09:24 Dose: 40 mg Rivaroxaban (Xarelto) 20 mg PO DAILY [facility] Last Admin: 09/11/18 09:24 Dose: 20 mg Rosuvastatin Calcium (Crestor) 10 mg PO HS [facility] Last Admin: 09/10/18 21:15 Dose: 10 mg Saccharomyces Boulardii (Florastor) 250 mg PO Q12 [facility] Last Admin: 09/11/18 09:24 Dose: 250 mg Sertraline HCl (Zoloft) 50 mg PO DAILY [facility] Last Admin: 09/11/18 09:24 Dose: 50 mg Sitagliptin Phosphate (Januvia) 100 mg PO DAILY [facility] Last Admin: 09/11/18 09:25 Dose: 100 mg Sucralfate (Carafate Oral Susp) 1 gm PO ACBHS [facility] Last Admin: 09/11/18 06:36 Dose: 1 gm Trazodone HCl (Desyrel) [address] [facility] Last Admin: 09/10/18 21:15 Dose: 50 mg Vancomycin HCl (Vancocin 250mg Capsule) 250 mg PO QID [facility] Last Admin: 09/11/18 13:03 Dose: 250 mg - Labs Labs: 09/11/18 09:16 09/11/18 09:16 PT 21.0 SECONDS (9.7-12.2) H 09/05/18 16:44 INR 1.9 09/05/18 16:44 APTT 28 SECONDS (21-34) 09/05/18 16:44 - Constitutional Appears: Non-toxic, Chronically Ill - Head Exam Head Exam: ATRAUMATIC, NORMAL INSPECTION, NORMOCEPHALIC - Eye Exam Eye Exam: EOMI, Normal appearance, PERRL Pupil Exam: NORMAL ACCOMODATION, PERRL - ENT Exam ENT Exam: Mucous Membranes Moist, Normal Exam - Neck Exam Neck Exam: Full ROM, Normal Inspection. absent: Lymphadenopathy - Respiratory Exam Respiratory Exam: Decreased Breath Sounds, Prolonged Expiratory Phase, Rhonchi - Cardiovascular Exam Cardiovascular Exam: REGULAR RHYTHM, +S1, +S2. absent: Murmur - GI/Abdominal Exam GI & Abdominal Exam: Soft, Normal Bowel Sounds. absent: Tenderness - Rectal Exam Rectal Exam: Deferred - Exam Exam: NORMAL INSPECTION - Extremities Exam Extremities Exam: Full ROM, Normal Capillary Refill, Normal Inspection. absent: Joint Swelling, Pedal Edema - Back Exam Back Exam: NORMAL INSPECTION - Neurological Exam Neurological Exam: Alert, Awake, CN II-XII Intact, Normal Gait, Oriented x3 - Psychiatric Exam Psychiatric exam: Normal Affect, Normal Mood - Skin Skin Exam: Dry, Intact, Normal Color, Warm Assessment and Plan (1) COPD (chronic obstructive pulmonary disease) Status: Acute (2) Closed fracture of right proximal tibia Status: Acute (3) Fever Status: Acute (4) Hyperglycemia Status: Acute (5) CHF (congestive heart failure) Status: Chronic (6) Diabetes mellitus Status: Chronic (7) HTN (hypertension) Status: Chronic (8) History of DVT (deep vein thrombosis) Status: Chronic (9) History of pulmonary embolus (PE) Status: Chronic (10) Hypothyroid Status: Chronic (11) SVT (supraventricular tachycardia) Status: Chronic (12) Sepsis Status: Suspected - Assessment and Plan (Free Text) Assessment: seen on rounds examined labs and cultures reviewed IV antibiotics ordered
[2018-09-11] MEDS: (Lantus) Insulin Glargine, Recombinant SC SCH (21:30)
[2018-09-12] MEDS: Levothyroxine 100 MCG TAB PO SCH (06:41)
--- NOTE | 2018-09-12 06:48 | PN ---
DATE: 09/11/2018 LOCATION: 554. SUBJECTIVE: This is a 63-year-old female seen and examined early in rounds without reported significant changes with intermittent period of abdominal pain, seen and examined for cardiology evaluation by Dr. Pineda. However, the patient still have intermittent period of diffuse abdominal pain, but less nausea and less diarrhea. The entire chart is reviewed including but not limited to the most recent lab and radiology study results, current and the previous medication list, current and the previous medical events and today blood glucose level reported to be 100, but the patient still has persistent leukocytosis, hypochromic microcytic anemia by yesterday's lab with elevated AST, but low calcium, low total protein, and low albumin. PHYSICAL EXAMINATION: GENERAL: A 63-year-old female, appeared to be somewhat pale. VITAL SIGNS: Blood pressure of 122/68, respiratory rate 20 to 22 with pulse of 104, afebrile. HEENT: Showed pale dry oral mucous membrane. Nonicteric sclerae. LUNGS: Few scattered crepitation. Decreased air entry at bases. HEART: Positive S1 and S2. ABDOMEN: Soft with mild generalized tenderness. No mass or organomegaly. No rebound tenderness or guarding, but diffuse tenderness, especially in the midepigastric and midabdominal line as well as moderate tenderness in the left lower quadrant area. No appreciated mass or organomegaly. RECTAL: The patient refused. EXTREMITIES: Without significant clubbing, cyanosis or edema. NEUROLOGIC: No reported new neurological deficit. IMPRESSION: 1. Re-exacerbation of peptic ulcer disease. 2. Pancreatic mass with abnormal CAT scan of the abdomen and the pelvis as well as elevated CA 19-9, highly suggestive but not confirmative of pancreatic carcinoma. 3. Increased CEA level. The possibility of lower gastrointestinal tract CEA was raised. 4. Re-exacerbation of peptic ulcer disease with hypochromic microcytic anemia, the possibility of upper versus lower gastrointestinal blood loss versus anemia secondary to chronic disease should be kept in mind. 5. Recurrent episodes of pseudomembranous colitis with diarrhea and leukocytosis, slightly and clinically improved. 6. Known history of hypertension, congestive heart failure, poorly controlled diabetes mellitus, hypothyroidism with fibromyalgia. 7. Reported history of pulmonary embolus with deep venous thrombosis. SUGGESTIONS: 1. Continue current management. 2. CAT scan guided pancreatic mass biopsy by the IR or the patient may need ERCP with brushing of the main pancreatic duct to rule out possible neoplastic cells. 3. Endoscopic evaluation of the upper and the lower GI tract only when the patient is more stable clinically and after full cardiology evaluation. 4. Further recommendation to follow. Cara Piedra MD
--- NOTE | 2018-09-12 06:54 | CP.PCM.PN ---
Subjective - Date & Time of Evaluation Date of Evaluation: 09/12/18 Time of Evaluation: 06:54 - Subjective Subjective: Pgy3 Internal Medicine Resident Endocrinology Progress note for Dr. Dickson Patient seen and examined at bedside. Nursing reported that overnight patient was refusing most of her medications and was only requesting pain meds. Patient was uncooperative with exam but did admit to generalized pain and weakness. As p er nursing patient did endorse a decreased appetite. Complete ROS unobtainable as patient was uncooperative. Objective - Vital Signs/Intake and Output Vital Signs (last 24 hours): Temp Pulse Resp BP Pulse Ox 98.1 F 111 H 16 118/64 94 L 09/11/18 23:30 09/12/18 01:00 09/11/18 23:30 09/11/18 23:30 09/11/18 23:30 Intake and Output: 09/11/18 09/12/18 18:59 06:59 Intake Total 700 Output Total 500 350 Balance 200 -350 - Medications Medications: Current Medications Acetaminophen (Tylenol 325mg Tab) 650 mg PO Q6 PRN PRN Reason: Pain, moderate (4-7) Albuterol/Ipratropium (Duoneb 3 Mg/0.5 Mg (3 Ml) Ud) 3 ml IH RQ4 PRN PRN Reason: Shortness of Breath Last Admin: 09/11/18 07:35 Dose: 3 ml Colchicine (Colocrys) 0.6 mg PO BID [facility] Last Admin: 09/11/18 17:37 Dose: 0.6 mg Cyclobenzaprine HCl (Flexeril) 5 mg PO TID [facility] Last Admin: 09/11/18 17:28 Dose: 5 mg Dextrose (Dextrose 50% Inj) 0 ml IV STAT PRN; Protocol PRN Reason: Hypoglycemia Protocol Dextrose (Glutose 15) 0 gm PO ONCE PRN; Protocol PRN Reason: Hypoglycemia Protocol Diazepam (Valium) 5 mg PO BID [facility] Last Admin: 09/11/18 17:29 Dose: 5 mg Dicyclomine HCl (Bentyl) 20 mg PO TID [facility] Last Admin: 09/11/18 17:29 Dose: 20 mg Diltiazem HCl (Cardizem Cd) 180 mg PO BID [facility] Last Admin: 09/11/18 17:29 Dose: 180 mg Ergocalciferol (Drisdol 50,000 Intl Units Cap) 1 cap PO Q7D [facility] Last Admin: 09/10/18 09:56 Dose: 1 cap Fluticasone/Vilanterol (Breo Ellipta 100-25 Mcg Inh) 1 puff INH RQ24 [facility] Last Admin: 09/11/18 07:35 Dose: 1 puff Furosemide (Lasix) 20 mg PO DAILY [facility] Last Admin: 09/11/18 09:26 Dose: 20 mg Gabapentin (Neurontin) 300 mg PO HS [facility] Last Admin: 09/11/18 21:20 Dose: 300 mg Glipizide (Glucotrol) 10 mg PO BID [facility] Last Admin: 09/11/18 17:28 Dose: 10 mg Glucagon (Glucagen Diagnostic Kit) 0 mg IM STAT PRN; Protocol PRN Reason: Hypoglycemia Protocol Hydrocortisone (Cortef) 20 mg PO TID [facility] Last Admin: 09/11/18 17:28 Dose: 20 mg Azithromycin 500 mg/ Sodium (Chloride) 250 mls @ 167 mls/hr IVPB Q24H [facility]; Protocol Last Admin: 09/04/18 01:00 Dose: 167 mls/hr Dextrose (Dextrose 5% In Water 1000 Ml) 1,000 mls @ 0 mls/hr IV .Q0M PRN; Protocol PRN Reason: Hypoglycemia Protocol Insulin Aspart (Novolog) 0 unit SC ACHS [facility] Last Admin: 09/11/18 21:08 Dose: Not Given Insulin Aspart (Novolog) 8 unit SC AC [facility] Last Admin: 09/11/18 17:28 Dose: Not Given Insulin Glargine (Lantus) 18 unit SC HS [facility] Last Admin: 09/11/18 21:30 Dose: 18 units Levothyroxine Sodium (Synthroid) 100 mcg PO 0630 [facility] Last Admin: 09/12/18 06:41 Dose: 100 mcg Lisinopril (Zestril) 10 mg PO DAILY [facility] Last Admin: 09/11/18 09:24 Dose: 10 mg Magnesium Oxide (Mag-Ox) 400 mg PO BID [facility] Last Admin: 09/11/18 17:28 Dose: 400 mg Metronidazole (Flagyl) 500 mg PO Q8 [facility] Last Admin: 09/12/18 06:41 Dose: 500 mg Ondansetron HCl (Zofran Inj) 4 mg IVP Q8 PRN PRN Reason: Nausea/Vomiting Oxycodone/Acetaminophen (Percocet 5/325 Mg Tab) 2 tab PO Q6H PRN PRN Reason: Pain, moderate (4-7) Stop: 09/12/18 14:27 Last Admin: 09/11/18 17:31 Dose: 2 tab Pantoprazole Sodium (Protonix Ec Tab) 40 mg PO DAILY [facility] Last Admin: 09/11/18 09:24 Dose: 40 mg Rivaroxaban (Xarelto) 20 mg PO DAILY [facility] Last Admin: 09/11/18 09:24 Dose: 20 mg Rosuvastatin Calcium (Crestor) 10 mg PO HS [facility] Last Admin: 09/11/18 22:00 Dose: Not Given Saccharomyces Boulardii (Florastor) 250 mg PO Q12 [facility] Last Admin: 09/11/18 21:35 Dose: Not Given Sertraline HCl (Zoloft) 50 mg PO DAILY [facility] Last Admin: 09/11/18 09:24 Dose: 50 mg Sitagliptin Phosphate (Januvia) 100 mg PO DAILY [facility] Last Admin: 09/11/18 09:25 Dose: 100 mg Sucralfate (Carafate Oral Susp) 1 gm PO ACBHS [facility] Last Admin: 09/11/18 21:35 Dose: Not Given Trazodone HCl (Desyrel) 50 mg PO [facility] Last Admin: 09/11/18 21:35 Dose: 50 mg Vancomycin HCl (Vancocin 250mg Capsule) 250 mg PO QID [facility] Last Admin: 09/11/18 21:30 Dose: Not Given - Labs Labs: 09/11/18 09:16 09/11/18 09:16 PT 21.0 SECONDS (9.7-12.2) H 09/05/18 16:44 INR 1.9 09/05/18 16:44 APTT 28 SECONDS (21-34) 09/05/18 16:44 - Constitutional Appears: Non-toxic, No Acute Distress, Unkempt, Chronically Ill - Head Exam Head Exam: ATRAUMATIC, NORMAL INSPECTION, NORMOCEPHALIC - Eye Exam Eye Exam: Normal appearance. absent: Conjunctival injection, Scleral icterus - ENT Exam ENT Exam: Mucous Membranes Moist - Respiratory Exam Respiratory Exam: Decreased Breath Sounds, Wheezes (diffuse b/l ), NORMAL BREATHING PATTERN. absent: Rales, Rhonchi, Respiratory Distress - Cardiovascular Exam Cardiovascular Exam: +S1, +S2 - GI/Abdominal Exam GI & Abdominal Exam: Soft, Normal Bowel Sounds. absent: Firm, Guarding, Rigid, Tenderness - Extremities Exam Additional comments: RLE in immobile cast - Neurological Exam Neurological Exam: Alert, Awake - Psychiatric Exam Psychiatric exam: Normal Affect, Normal Mood - Skin Skin Exam: Dry, Intact, Warm Assessment and Plan - Assessment and Plan (Free Text) Assessment: 63yo female PMHx COPD, Type 2 IDDM, anxiety, depression, DVT, PE, OA originally presented with fever. Endocrinology consultation requested for hyperglycemic accelerations. Plan: 1. Uncontrolled type 2 IDDM in the setting of acute illness Overnight Accuchecks noted- blood glucose continuing to improve. Continue Januvia 100mg PO QD, Lantus 18U hs, Aspart 8U AC, and Glipizide 10 bid. Patient continued on RISS. Continue JAIL diet. Hypoglycemic protocol in place. Will continue to monitor closely. 2. Hypothyroidism TSH slightly low (0.3) but T4 wnl. Continue with levothyroxine 100mcg PO QD. Will continue to monitor closely. Will discuss with Dr. Randolph Rodriguez PGY3
--- NOTE | 2018-09-12 07:10 | PN ---
DATE: 09/10/2018 ENDOCRINOLOGY FOLLOWUP NOTE LOCATION: Room 554. SUBJECTIVE: This is a 63-year-old female with recent acute exacerbation of COPD with supervening hyperglycemic accelerations and is now being followed closely for metabolic management. Her glycemic levels are fluctuating but improved and the glucose levels overnight have ranged from 195 to 199 mg/dL. LABORATORY DATA: Her chemistry showed a BUN of 27, sodium 137, potassium 3.8, chloride 107, CO2 of 25, glucose 218 and creatinine 0.9. ASSESSMENT AND PLAN: So at this time, we will continue the same modified basal and bolus insulin regimen to allow for dose equilibration and keep her on the NovoLog given as 6 units t.i.d. before meals as ordered. We will continue the low dose correction scale using low dose NovoLog insulin as ordered to obviate hypoglycemia. We will continue also the basal insulin given as Lantus at 20 units subcutaneus at bedtime daily as given. We will obtain serial chemistries and supplement accordingly as needed. We will follow. Neeru Dickson MD
[2018-09-12] MEDS: (Novolog) Insulin Aspart, Recombinant 100 u/ml 10 ml vial SC SCH ×7 (07:12→21:46)
[2018-09-12] MEDS: Fluticasone-Vilanterol 100/25mcg Diskus INH SCH (07:35)
--- NOTE | 2018-09-12 07:37 | PN ---
DATE: 09/11/2018 SUBJECTIVE: The patient is complaining of shortness of breath today. PLAN: Correct potassium. Supportive care. Angel Gutierres MD
[2018-09-12] MEDS: Sucralfate 1 gm/10 ml Oral Susp UD PO SCH ×2 (07:42→21:45)
[2018-09-12 07:50] LABS: ALB/GLOB RATIO 1.2 (1.0-2.1); ALBUMIN 2.8 g/dL (3.5-5.0); ALT/SGPT 47 U/L (9-52); AST/SGOT 31 U/L (14-36); BLOOD UREA NITROGEN 26 mg/dL (7-17); GFR NON-AFRICAN AMERICAN > 60
[2018-09-12 08:15] LABS: HEMOGLOBIN 8.8 g/dL (11.0-16.0); MEAN CELL VOLUME 75.4 fL (81.0-99.0); MEAN CORPUSCULAR HEMOGLOBIN 22.4 pg (27.0-31.0); MEAN CORPUSCULAR HGB CONC 29.7 g/dL (33.0-37.0); MEAN PLATELET VOLUME 8.9 fL (7.2-11.7); RBC 3.95 Mil/uL (3.80-5.20); RED CELL DISTRIBUTION WIDTH 20.3 % (11.5-14.5); WHITE BLOOD COUNT 10.4 K/uL (4.8-10.8)
[2018-09-12] MEDS: Pantoprazole 40 mg EC Tab PO SCH (09:48)
[2018-09-12] MEDS: diltiaZEM 180 mg/24 Hours CD Cap PO SCH ×2 (09:48→18:20)
[2018-09-12] MEDS: Vancomycin Hydrochloride 250 mg Capsule (Oral) PO SCH ×4 (09:48→21:45)
[2018-09-12] MEDS: Magnesium Oxide 400 mg Tab UD PO SCH ×2 (09:48→18:20)
[2018-09-12] MEDS: Oxycodone/Acetaminophen 5/325 mg Tab PO PRN ×2 (09:50→20:53)
[2018-09-12] MEDS: Saccharomyces Boulardi 250 mg Cap PO SCH ×2 (09:51→21:45)
[2018-09-12 10:12] LABS: LYMPH # 1.4 K/uL (1.0-4.3); MONO # 1.5 K/uL (0.0-0.8); NEUT # 7.6 K/uL (1.8-7.0)
[2018-09-12] MEDS ORDERED: Potassium Chloride 20 mEq ER Tab PO ONE (11:00)
--- NOTE | 2018-09-12 13:37 | CP.PCM.PN ---
Subjective - Date & Time of Evaluation Date of Evaluation: 09/12/18 Time of Evaluation: 08:00 - Subjective Subjective: PGY2- Progress Note for Dr. Gutierres Patient seen and examined at bedside and in no acute distress. Patient says she has generalized pain from her fibromyalgia. She denies chest pain, palpitations, nausea, vomiting, fevers, headaches, dizziness, dysuria. Objective - Vital Signs/Intake and Output Vital Signs (last 24 hours): Temp Pulse Resp BP Pulse Ox 97.9 F 109 H 20 158/88 H 95 09/12/18 08:03 09/12/18 11:48 09/12/18 08:03 09/12/18 09:51 09/12/18 08:03 Intake and Output: 09/12/18 09/12/18 06:59 18:59 Output Total 350 Balance -350 - Medications Medications: Current Medications Acetaminophen (Tylenol 325mg Tab) 650 mg PO Q6 PRN PRN Reason: Pain, moderate (4-7) Colchicine (Colocrys) 0.6 mg PO BID [facility] Last Admin: 09/12/18 09:48 Dose: 0.6 mg Cyclobenzaprine HCl (Flexeril) 5 mg PO TID [facility] Last Admin: 09/12/18 13:18 Dose: 5 mg Dextrose (Dextrose 50% Inj) 0 ml IV STAT PRN; Protocol PRN Reason: Hypoglycemia Protocol Dextrose (Glutose 15) 0 gm PO ONCE PRN; Protocol PRN Reason: Hypoglycemia Protocol Diazepam (Valium) 5 mg PO BID [facility] Last Admin: 09/12/18 09:48 Dose: 5 mg Dicyclomine HCl (Bentyl) 20 mg PO TID [facility] Last Admin: 09/12/18 13:18 Dose: 20 mg Diltiazem HCl (Cardizem Cd) 180 mg PO BID [facility] Last Admin: 09/12/18 09:48 Dose: 180 mg Ergocalciferol (Drisdol 50,000 Intl Units Cap) 1 cap PO Q7D [facility] Last Admin: 09/10/18 09:56 Dose: 1 cap Fluticasone/Vilanterol (Breo Ellipta 100-25 Mcg Inh) 1 puff INH RQ24 [facility] Last Admin: 09/12/18 07:35 Dose: 1 puff Furosemide (Lasix) 20 mg PO DAILY [facility] Last Admin: 09/12/18 09:51 Dose: 20 mg Gabapentin (Neurontin) 300 mg PO HS [facility] Last Admin: 09/11/18 21:20 Dose: 300 mg Glipizide (Glucotrol) 10 mg PO BID [facility] Last Admin: 09/12/18 09:49 Dose: 10 mg Glucagon (Glucagen Diagnostic Kit) 0 mg IM STAT PRN; Protocol PRN Reason: Hypoglycemia Protocol Hydrocortisone (Cortef) 20 mg PO TID [facility] Last Admin: 09/12/18 13:19 Dose: 20 mg Azithromycin 500 mg/ Sodium (Chloride) 250 mls @ 167 mls/hr IVPB Q24H [facility]; Protocol Last Admin: 09/04/18 01:00 Dose: 167 mls/hr Insulin Aspart (Novolog) 0 unit SC ACHS [facility] Last Admin: 09/12/18 11:29 Dose: Not Given Insulin Aspart (Novolog) 8 unit SC AC [facility] Last Admin: 09/12/18 13:22 Dose: 8 units Insulin Glargine (Lantus) 18 unit SC [facility] Last Admin: 09/11/18 21:30 Dose: 18 units Levothyroxine Sodium (Synthroid) 100 mcg PO 0630 [facility] Last Admin: 09/12/18 06:41 Dose: 100 mcg Lisinopril (Zestril) 10 mg PO DAILY [facility] Last Admin: 09/12/18 09:47 Dose: 10 mg Magnesium Oxide (Mag-Ox) 400 mg PO BID [facility] Last Admin: 09/12/18 09:48 Dose: 400 mg Metronidazole (Flagyl) 500 mg PO Q8 [facility] Last Admin: 09/12/18 13:18 Dose: 500 mg Ondansetron HCl (Zofran Inj) 4 mg IVP Q8 PRN PRN Reason: Nausea/Vomiting Oxycodone/Acetaminophen (Percocet 5/325 Mg Tab) 2 tab PO Q6H PRN PRN Reason: Pain, moderate (4-7) Stop: 09/12/18 14:27 Last Admin: 09/12/18 09:50 Dose: 2 tab Pantoprazole Sodium (Protonix Ec Tab) 40 mg PO DAILY [facility] Last Admin: 09/12/18 09:48 Dose: 40 mg Rivaroxaban (Xarelto) 20 mg PO DAILY [facility] Last Admin: 09/12/18 09:48 Dose: 20 mg Rosuvastatin Calcium (Crestor) 10 mg PO [facility] Last Admin: 09/11/18 22:00 Dose: Not Given Saccharomyces Boulardii (Florastor) 250 mg PO Q12 [facility] Last Admin: 09/12/18 09:51 Dose: 250 mg Sertraline HCl (Zoloft) 50 mg PO DAILY [facility] Last Admin: 09/12/18 09:49 Dose: 50 mg Sitagliptin Phosphate (Januvia) 100 mg PO DAILY [facility] Last Admin: 09/12/18 09:49 Dose: 100 mg Sucralfate (Carafate Oral Susp) 1 gm PO ACBHS [facility] Last Admin: 09/12/18 07:42 Dose: Not Given Trazodone HCl (Desyrel) 50 mg PO HS [facility] Last Admin: 09/11/18 21:35 Dose: 50 mg Vancomycin HCl (Vancocin 250mg Capsule) 250 mg PO QID [facility] Last Admin: 09/12/18 13:18 Dose: 250 mg - Labs Labs: 09/12/18 07:27 09/12/18 07:27 PT 21.0 SECONDS (9.7-12.2) H 09/05/18 16:44 INR 1.9 09/05/18 16:44 APTT 28 SECONDS (21-34) 09/05/18 16:44 - Additional Findings Additional findings: - Constitutional Appears: No Acute Distress, Chronically Ill - Head Exam Head Exam: NORMAL INSPECTION - Eye Exam Eye Exam: EOMI, Normal appearance - ENT Exam ENT Exam: Mucous Membranes Moist - Respiratory Exam Respiratory Exam: NORMAL BREATHING PATTERN, rales throughout absent: Wheezes, Respiratory Distress - Cardiovascular Exam Cardiovascular Exam: REGULAR RHYTHM, +S1, +S2 - GI/Abdominal Exam GI & Abdominal Exam: Soft, Normal Bowel Sounds, left sided abdominal pain w/palpation. absent: Distended, Firm - Extremities Exam Extremities Exam: Pedal Edema, Tenderness; RLE-knee immobilizer in place - Neurological Exam Neurological Exam: Alert, Awake, Oriented x3 - Psychiatric Exam Psychiatric exam: Normal Affect, Normal mood - Skin Skin Exam: Dry, Normal Color, Warm Assessment and Plan - Assessment and Plan (Free Text) Assessment: C.Difficile Fever, SIRS-resolved *Afebrile since admission *Isolation, contact precautions discontinued on 09/12/18 as C dif Ag and Toxin negative from 09/10/18 - Febrile at admission, 101.8F. Leukocytosis 12.4, improved to 8.5. No bandemia. - Lactate at admission 1.6; repeat 0.9 on 09/02/18 - ID Consult: Dr. Little --> help appreciated - GI Consult: Dr. Laurent --> help appreciated - CXR: negative for acute pathology - Blood cx: coagulase neg staph - probably contaminated, repeat blood culture from 09/04/18 negative - Urinalysis: negative for infection - Urine cx: negative - C.Diff: positive on 09/02/18 - Ova/parasites: negative - Stool Culture: negative - Stool leukocytes: negative; stool occult negative - Medications: * Vancomycin 250mg PO QID (active since 09/07/18) * Azithromycin 500mg IV Q24 (active since 09/02/18) * Flagyl 500mg IV q8h (active since 09/02/18) * Florastor 250mg PO BID Pancreatic Mass - +Abdominal pain - CEA: 42.5 - CA19-9: 1980 - CA125: 36.2 - Abdomen/Pelvic CT: Heterogeneous hyperdense pancreatic mass measuring approximately 2.7 x 2.5 cm at the pancreatic body/tail. Ectatic dilated pancreatic duct. Additional cystic heterogeneous focus measuring approximately 15 x 14 mm is noted at the superior aspect of the pancreas. Appearance worrisome for malignant neoplasm. Wall thickening involving the 2nd portion of the duodenum of uncertain significance; considerations include infectious, inflammatory, or malignant etiologies. Correlate clinically and recommend further evaluation with direct visualization if indicated. Small pelvic free fluid. - Surgery consulted, Dr. Bright; help appreciated - Per surgery team, mass appears resectable, however, patient is a not a surgical candidate at this time due to other conditions/comorbities. KARMA Resolved, will continue to monitor - At admission, BUN 44, Cr 3.2 - Nephrology consulted, Dr. Menendez; help appreciated - Avoid nephrotoxic agents - Possibly due to hypotension, sepsis, or renal hypoperfusion - Renal US: Echogenic renal parenchyma the right kidney. Bilateral cortical thinning. Correlate clinically for medical renal disease. Tachycardia - Likely secondary to infection - Cardiology consulted, Dr. Pineda; help appreciated - Increased Cardizem to 180mg PO BID (from 120mg, per Dr. Pineda) - Will continue to monitor Chronic Diastolic Congestive Heart Failure - Stable - Last echo 2016 showed Grade III reversible restrictive diastolic dysfunction, EF 55% - Lasix 20mg PO daily Hypertension - Home medications: * Lisinopril 10mg PO daily * Cardizem 180mg PO BID Diabetes Mellitus - Accuchecks, Hypoglycemia protocol - HgA1c 9.3 (01/2018); repeat A1c 9.0 - Insulin sliding scale - Continue home medications: Januvia 100 mg PO daily, Glipizide 10mg PO BID, Gabapentin 300mg PO HS - Novolog 8 u SC AC - Lantus 18 units HS - Endocrinology consult. Dr Cam. hcu appreciated. Fibromyalgia - Home medication: Diazepam 5mg PO BID - Flexeril 5mg PO TID (Holding parameters- hold if sleeping/sedated, hypotension ) - Percocet 5/325mg 2 tab Q6H prn for pain - Gabapentin 300mg PO HS Adrenal Insufficiency - Hydrocortisone 20mg PO TID Hypothyroidism - Continue Synthroid 100mcg PO daily - TSH/Free T4: 9.5/0.30 Hypokalemia -repleted -continue to monitor and replete as needed History of DVT/PE - Continue Xarelto 20mg PO daily Gout - Continue Colchicine Depression - Consulted psychiatry, Dr. Dexter, linneas appreciated. - Per psychiatry, Started zoloft 50mg po daily (consider tapering up to 100mg), trazodone 50mg po hs -Valium 5mg po bid -overall mood improving COPD - Continue home medication: Breo - Duonebs Q4h prn Closed fracture of right proximal tibia - Orthopedic surgery consulted, Dr. Hernandez; help appreciated - Per ortho: continue well padded knee immobilizer; non operative; recommends PT/OT, NWB, VTE proph, and to f/u with Dr. Hernandez 1-2 weeks upon d/c Prophylactic Measures - Protonix 40mg PO daily, Probiotics - Xarelto 20mg PO daily - PT/OT - Palliative care consulted to discuss goals of care - Case management consulted for discharge planning to [facility] Case discussed and patient seen with Dr. Gutierres
--- NOTE | 2018-09-12 13:50 | PN ---
DATE: 09/12/2018 LOCATION: 554. SUBJECTIVE: This 63-year-old female seen and examined in rounds without significant clinical changes but with generalized weakness and malaise as well as body ache, especially in the lower back as well as abdominal and thoracic spine. No reported active GI bleeding, no palpitation, chest pain or significant increase of shortness of breath. The entire chart is reviewed including but not limited to the most recent lab and radiology study results, current and the previous medication list, current and the previous medical events. Case discussed with the staff at length as well as Dr. Gutierres. LABORATORY DATA: Today's lab showed low hemoglobin of 8.8, hematocrit 29.8 with low indices highly suggestive of hypochromic microcytic anemia. Potassium of 3.4, glucose 129, calcium 8, albumin 2.8 with total protein 5.3. PHYSICAL EXAMINATION: GENERAL: A 63-year-old female. VITAL SIGNS: Afebrile with pulse of 108, respiratory rate 20 to 22, blood pressure 152/86. HEENT: Showed pale dry mucous membrane. Nonicteric sclerae. LUNGS: Few scattered crepitation. Decreased air entry at bases. HEART: Positive S1 and S2 with increased rate. ABDOMEN: Soft with mild generalized tenderness. No mass or organomegaly. No rebound tenderness or guarding. EXTREMITIES: Without significant clubbing, cyanosis or edema. NEUROLOGIC: No reported new neurological deficits, sensory or motor. No reported new focal deficits. The patient still has very poor oral intake with loss of appetite recently. IMPRESSION: 1. Pancreatic mass lesion with excessive increase of CA 19-9 indicative of most likely carcinoma of the pancreas. 2. Increased CEA level with possibility of lower gastrointestinal tract occult malignancy was raised. 3. Hypochromic microcytic anemia, most likely secondary to above. 4. Re-exacerbation of peptic ulcer disease. 5. Abnormal CAT scan of the abdomen and pelvis. 6. Poorly controlled diabetes mellitus. 7. Reported recent episodes of recurrent pseudomembranous colitis with diarrhea, improving gradually. 8. Known history of hypertension, congestive heart failure, severe anxiety syndrome, fibromyalgia as well as hypotension. 9. Reported history of deep venous thrombosis and pulmonary embolus. SUGGESTIONS: 1. Continue current management. 2. Again, the patient will need a CAT scan-guided pancreatic mass biopsy. However, if it is not available, then ERCP with brushing of the main pancreatic duct to be performed for diagnostic purposes. 3. The patient also will need upper and lower endoscopy due to her hypochromic microcytic anemia and increased CEA level when she is more stable clinically, that to be discussed with the family at length and Oncology/Hematology recommendation to follow. Cara Piedra MD
--- NOTE | 2018-09-12 14:10 | CP.PCM.PN ---
Subjective - Date & Time of Evaluation Date of Evaluation: 09/12/18 Time of Evaluation: 14:08 - Subjective Subjective: Nephrology Consultation Note: Assessment: Stable Acute Kidney Injury (N17.9) likely due to hypotension/sepsis/renal hypoperfusion as also evident by concomitant abnormal AST/ALT: IMPROVING Anemia hyponatremia GPC sepsis hypomagnesemia DM, HTN dCHF, DVT/PE s/p IVC filter, gout, hypothyroidism hyperlipidemia fibromyalgias depression/anxiety COPD Adrenal Insuff C.diff colitis pancreatic mass ? malignancy Plan No acute need for renal replacement therapy at this time. Hypertension control with meds as ordered. Maintain hemodynamics stable. Avoid hypotension. Patient back on acei. Monitor Input/Output, daily weights and renal function with basic metabolic panel can increase lasix 20 mg bid will add iron and MVI. pt on weekly vit D supplement lytes as needed seen by hepato-biliary surgeon and pall care Dose meds/antibiotics for improved GFR. Glycemic control Further work up/management as per primary team Thanks for allowing me to participate in care of your patient. Will follow patient with you. Please call if any Qs. had d/w team Dr Robert Lam Office: [phone] Chief Complaint; fever Reason for consult: Acute Kidney Injury HPI: Pt is a 63 F with hx of diabetes Mellitus ( years), hypertension (years) dCHF, DVT/PE s/p IVC filter, gout, hypothyroidism hyperlipidemia fibromyalgias depression/amxiety COPD presented with complaints of fever and cough, admitted for KARMA and ? COPD exacerbation Denies OTC/herbal meds or NSAIDs No recent iodinated contrast exposure. Noted obvious episodes of low BP (88/46). ROS: Cardiovascular: No chest pain. Pulmonary: better shortness of breath Gastrointestinal: better abdominal pain No nausea. No vomiting. Genitourinary: No pain while urinating. Denies blood in urine. All other negative except as mentioned in HPI Physical Examination: General Appearance: comfortable, in no acute respiratory distress, co-operative . overal ill appearing and debilitated Vitals reviewed and noted as below Head; Atraumatic, normocephalic ENT: no ulcers no thrush. Tongue is midline/dry. Oropharynx: no rash or ulcers. EYES: Pupils are equal, round and reactive to light accommodation. Eye muscles and extraocular movement intact. Sclera is anicteric. Neck; supple no lymphadenopathy, no thyromegaly or bruit Lungs: Normal respiratory rate/effort. Breath sounds bilateral equal and few basal crackle Heart: Increased rate. s1s2 normal. No rub or gallop. Extremities: 1+ edema. No varicose veins Neurological: Patient is alert, awake and oriented to person, place and time. No focal deficit. Strength bilateral appropriate and equal Skin: Warm and dry. Normal turgor. No rash. Palpitation: Normal elasticity for age Abdomen: Abdomen is soft. Bowel sounds +. There is no abdominal tenderness, no guarding/rigidity no organomegaly Psych: limited insight and normal affect/mood MSK: no joint tenderness or swelling. Digits and nails normal, no deformity. Rt leg in splint : kidney or bladder not palpable Labs/imaging reviewed. Past medical history, past surgical history, family history, social history, allergy reviewed and noted as below Family hx: no hx of CKD. Rest non-contributory Hep B/C neg UA no protein Objective - Vital Signs/Intake and Output Vital Signs (last 24 hours): Temp Pulse Resp BP Pulse Ox 97.9 F 109 H 20 158/88 H 95 09/12/18 08:03 09/12/18 11:48 09/12/18 08:03 09/12/18 09:51 09/12/18 08:03 Intake and Output: 09/12/18 09/12/18 06:59 18:59 Output Total 350 Balance -350 - Medications Medications: Current Medications Acetaminophen (Tylenol 325mg Tab) 650 mg PO Q6 PRN PRN Reason: Pain, moderate (4-7) Colchicine (Colocrys) 0.6 mg PO BID [facility] Last Admin: 09/12/18 09:48 Dose: 0.6 mg Cyclobenzaprine HCl (Flexeril) 5 mg PO TID [facility] Last Admin: 09/12/18 13:18 Dose: 5 mg Dextrose (Dextrose 50% Inj) 0 ml IV STAT PRN; Protocol PRN Reason: Hypoglycemia Protocol Dextrose (Glutose 15) 0 gm PO ONCE PRN; Protocol PRN Reason: Hypoglycemia Protocol Diazepam (Valium) 5 mg PO BID [facility] Last Admin: 09/12/18 09:48 Dose: 5 mg Dicyclomine HCl (Bentyl) 20 mg PO TID [facility] Last Admin: 09/12/18 13:18 Dose: 20 mg Diltiazem HCl (Cardizem Cd) 180 mg PO BID [facility] Last Admin: 09/12/18 09:48 Dose: 180 mg Ergocalciferol (Drisdol 50,000 Intl Units Cap) 1 cap PO Q7D [facility] Last Admin: 09/10/18 09:56 Dose: 1 cap Fluticasone/Vilanterol (Breo Ellipta 100-25 Mcg Inh) 1 puff INH RQ24 [facility] Last Admin: 09/12/18 07:35 Dose: 1 puff Furosemide (Lasix) 20 mg PO DAILY [facility] Last Admin: 09/12/18 09:51 Dose: 20 mg Gabapentin (Neurontin) 300 mg PO HS [facility] Last Admin: 09/11/18 21:20 Dose: 300 mg Glipizide (Glucotrol) 10 mg PO BID [facility] Last Admin: 09/12/18 09:49 Dose: 10 mg Glucagon (Glucagen Diagnostic Kit) 0 mg IM STAT PRN; Protocol PRN Reason: Hypoglycemia Protocol Hydrocortisone (Cortef) 20 mg PO TID [facility] Last Admin: 09/12/18 13:19 Dose: 20 mg Azithromycin 500 mg/ Sodium (Chloride) 250 mls @ 167 mls/hr IVPB Q24H [facility]; Protocol Last Admin: 09/04/18 01:00 Dose: 167 mls/hr Insulin Aspart (Novolog) 0 unit SC ACHS [facility] Last Admin: 09/12/18 11:29 Dose: Not Given Insulin Aspart (Novolog) 8 unit SC AC [facility] Last Admin: 09/12/18 13:22 Dose: 8 units Insulin Glargine (Lantus) 18 unit SC HS [facility] Last Admin: 09/11/18 21:30 Dose: 18 units Levothyroxine Sodium (Synthroid) 100 mcg PO 0630 [facility] Last Admin: 09/12/18 06:41 Dose: 100 mcg Lisinopril (Zestril) 10 mg PO DAILY [facility] Last Admin: 09/12/18 09:47 Dose: 10 mg Magnesium Oxide (Mag-Ox) 400 mg PO BID [facility] Last Admin: 09/12/18 09:48 Dose: 400 mg Metronidazole (Flagyl) 500 mg PO Q8 [facility] Last Admin: 09/12/18 13:18 Dose: 500 mg Ondansetron HCl (Zofran Inj) 4 mg IVP Q8 PRN PRN Reason: Nausea/Vomiting Oxycodone/Acetaminophen (Percocet 5/325 Mg Tab) 2 tab PO Q6H PRN PRN Reason: Pain, moderate (4-7) Stop: 09/12/18 14:27 Last Admin: 09/12/18 09:50 Dose: 2 tab Pantoprazole Sodium (Protonix Ec Tab) 40 mg PO DAILY [facility] Last Admin: 09/12/18 09:48 Dose: 40 mg Rivaroxaban (Xarelto) 20 mg PO DAILY [facility] Last Admin: 09/12/18 09:48 Dose: 20 mg Rosuvastatin Calcium (Crestor) 10 mg PO HS [facility] Last Admin: 09/11/18 22:00 Dose: Not Given Saccharomyces Boulardii (Florastor) 250 mg PO Q12 [facility] Last Admin: 09/12/18 09:51 Dose: 250 mg Sertraline HCl (Zoloft) 50 mg PO DAILY [facility] Last Admin: 09/12/18 09:49 Dose: 50 mg Sitagliptin Phosphate (Januvia) 100 mg PO DAILY [facility] Last Admin: 09/12/18 09:49 Dose: 100 mg Sucralfate (Carafate Oral Susp) 1 gm PO ACS [facility] Last Admin: 09/12/18 07:42 Dose: Not Given Trazodone HCl (Desyrel) 50 mg PO HS [facility] Last Admin: 09/11/18 21:35 Dose: 50 mg Vancomycin HCl (Vancocin 250mg Capsule) 250 mg PO QID [facility] Last Admin: 09/12/18 13:18 Dose: 250 mg - Labs Labs: 09/12/18 07:27 09/12/18 07:27 PT 21.0 SECONDS (9.7-12.2) H 09/05/18 16:44 INR 1.9 09/05/18 16:44 APTT 28 SECONDS (21-34) 09/05/18 16:44
--- NOTE | 2018-09-12 16:54 | CP.PCM.PN ---
Subjective - Date & Time of Evaluation Date of Evaluation: 09/12/18 Time of Evaluation: 16:43 - Subjective Subjective: 63 year old woman with body of pancreas mass, multiple comorbidities and significant debility. Patient has body of pancreas mass, that appear resectable, however given here debility, she is a poor surgical candidate. Objective - Vital Signs/Intake and Output Vital Signs (last 24 hours): Temp Pulse Resp BP Pulse Ox 98.8 F 100 H 20 121/70 95 09/12/18 16:23 09/12/18 16:23 09/12/18 16:23 09/12/18 16:23 09/12/18 16:23 Intake and Output: 09/12/18 09/12/18 06:59 18:59 Output Total 350 Balance -350 - Medications Medications: Current Medications Acetaminophen (Tylenol 325mg Tab) 650 mg PO Q6 PRN PRN Reason: Pain, moderate (4-7) Colchicine (Colocrys) 0.6 mg PO BID [facility] Last Admin: 09/12/18 09:48 Dose: 0.6 mg Cyclobenzaprine HCl (Flexeril) 5 mg PO TID [facility] Last Admin: 09/12/18 13:18 Dose: 5 mg Dextrose (Dextrose 50% Inj) 0 ml IV STAT PRN; Protocol PRN Reason: Hypoglycemia Protocol Dextrose (Glutose 15) 0 gm PO ONCE PRN; Protocol PRN Reason: Hypoglycemia Protocol Diazepam (Valium) 5 mg PO BID [facility] Last Admin: 09/12/18 09:48 Dose: 5 mg Dicyclomine HCl (Bentyl) 20 mg PO TID [facility] Last Admin: 09/12/18 13:18 Dose: 20 mg Diltiazem HCl (Cardizem Cd) 180 mg PO BID [facility] Last Admin: 09/12/18 09:48 Dose: 180 mg Ergocalciferol (Drisdol 50,000 Intl Units Cap) 1 cap PO Q7D [facility] Last Admin: 09/10/18 09:56 Dose: 1 cap Ferrous Gluconate (Fergon) 324 mg PO TID [facility] Fluticasone/Vilanterol (Breo Ellipta 100-25 Mcg Inh) 1 puff INH RQ24 [facility] Last Admin: 09/12/18 07:35 Dose: 1 puff Furosemide (Lasix) 20 mg PO BID [facility] Gabapentin (Neurontin) 300 mg PO HS [facility] Last Admin: 09/11/18 21:20 Dose: 300 mg Glipizide (Glucotrol) 10 mg PO BID [facility] Last Admin: 09/12/18 09:49 Dose: 10 mg Glucagon (Glucagen Diagnostic Kit) 0 mg IM STAT PRN; Protocol PRN Reason: Hypoglycemia Protocol Hydrocortisone (Cortef) 20 mg PO TID [facility] Last Admin: 09/12/18 13:19 Dose: 20 mg Azithromycin 500 mg/ Sodium (Chloride) 250 mls @ 167 mls/hr IVPB Q24H [facility]; Protocol Last Admin: 09/04/18 01:00 Dose: 167 mls/hr Insulin Aspart (Novolog) 0 unit SC ACHS [facility] Last Admin: 09/12/18 11:29 Dose: Not Given Insulin Aspart (Novolog) 8 unit SC AC [facility] Last Admin: 09/12/18 13:22 Dose: 8 units Insulin Glargine (Lantus) 18 unit SC HS [facility] Last Admin: 09/11/18 21:30 Dose: 18 units Levothyroxine Sodium (Synthroid) 100 mcg PO 0630 [facility] Last Admin: 09/12/18 06:41 Dose: 100 mcg Lisinopril (Zestril) 10 mg PO DAILY [facility] Last Admin: 09/12/18 09:47 Dose: 10 mg Magnesium Oxide (Mag-Ox) 400 mg PO BID [facility] Last Admin: 09/12/18 09:48 Dose: 400 mg Metronidazole (Flagyl) 500 mg PO Q8 [facility] Last Admin: 09/12/18 13:18 Dose: 500 mg Ondansetron HCl (Zofran Inj) 4 mg IVP Q8 PRN PRN Reason: Nausea/Vomiting Pantoprazole Sodium (Protonix Ec Tab) 40 mg PO DAILY [facility] Last Admin: 09/12/18 09:48 Dose: 40 mg Rivaroxaban (Xarelto) 20 mg PO DAILY [facility] Last Admin: 09/12/18 09:48 Dose: 20 mg Rosuvastatin Calcium (Crestor) 10 mg PO HS [facility] Last Admin: 09/11/18 22:00 Dose: Not Given Saccharomyces Boulardii (Florastor) 250 mg PO Q12 [facility] Last Admin: 09/12/18 09:51 Dose: 250 mg Sertraline HCl (Zoloft) 50 mg PO DAILY [facility] Last Admin: 09/12/18 09:49 Dose: 50 mg Sitagliptin Phosphate (Januvia) 100 mg PO DAILY [facility] Last Admin: 09/12/18 09:49 Dose: 100 mg Sucralfate (Carafate Oral Susp) 1 gm PO ACBHS [facility] Last Admin: 09/12/18 07:42 Dose: Not Given Trazodone HCl (Desyrel) 50 mg PO HS [facility] Last Admin: 09/11/18 21:35 Dose: 50 mg Vancomycin HCl (Vancocin 250mg Capsule) 250 mg PO QID [facility] Last Admin: 09/12/18 13:18 Dose: 250 mg Vitamin B Complex/Vit C/Folic Acid (Nephro-Lavinia) 1 tab PO 0800 [facility] - Labs Labs: 09/12/18 07:27 09/12/18 07:27 PT 21.0 SECONDS (9.7-12.2) H 09/05/18 16:44 INR 1.9 09/05/18 16:44 APTT 28 SECONDS (21-34) 09/05/18 16:44 - Constitutional Appears: Chronically Ill - Head Exam Head Exam: ATRAUMATIC - GI/Abdominal Exam GI & Abdominal Exam: Soft - Rectal Exam Rectal Exam: Deferred - Psychiatric Exam Psychiatric exam: Depressed - Skin Skin Exam: Intact Assessment and Plan (1) Pancreas neoplasm Assessment & Plan: 63 year old woman with multiple comorbidities and debility diagnosed with body of pancreas cancer. Though she requests surgery, given her state of debility, she is unlikely to benefit. She should be OOB to chair twice a day and physical therapy should also work with her. Her current performance status is 4. If she should improve her performance status to a 2, will consider exploration. Status: Acute - Assessment and Plan (Free Text) Plan: physical therapy
--- NOTE | 2018-09-12 19:22 | PN ---
DATE: 09/12/2018 ENDOCRINOLOGY FOLLOWUP NOTE LOCATION: Room 554. SUBJECTIVE: This is a 63-year-old female with recent uncontrolled type 2 insulin-requiring diabetes, now being followed closely for metabolic management. She presented here with acute excerebration of COPD and currently on oral steroid therapy as given with hydrocortisone given as 20 mg t.i.d. as ordered. Her glycemic levels are fluctuating, but improved and the glucose values have ranged from 129 to 174 mg/dL, it was 223 at bedtime last night. LABORATORY DATA: Her chemistry showed a BUN of 26, sodium 138, potassium 3.4, chloride 105, CO2 of 26, glucose 142 and creatinine 0.9. ASSESSMENT AND PLAN: So at this time, we will continue the same basal and bolus insulin regimen to allow for dose equilibration especially with the variability of her oral intake as noted. We will continue the NovoLog given as 8 units three times daily before meals as ordered. Will continue the basal insulin given as Lantus at 18 units subcutaneus at bedtime daily as given. Will continue also the levothyroxine replacement therapy. So we will continue the same basal insulin given as Lantus at 18 units subcutaneus at bedtime daily as given. We will continue the low dose correction scale using Humalog insulin as ordered. We will titrate incrementally as indicated to optimize metabolic control. We will also continue the levothyroxine given as 100 mcg once daily in the morning as ordered. We will obtain serial chemistries and supplement according as needed. We will also obtain serial thyroid studies and titrate the dose regimen accordingly. Neeru Dickson MD
[2018-09-12] MEDS: (Lantus) Insulin Glargine, Recombinant SC SCH (21:46)
[2018-09-13] MEDS: Levothyroxine 100 MCG TAB PO SCH (06:49)
--- NOTE | 2018-09-13 07:22 | CP.PCM.PN ---
Subjective - Date & Time of Evaluation Date of Evaluation: 09/13/18 Time of Evaluation: 07:21 - Subjective Subjective: [id number] Internal Medicine Resident Endocrinology Progress note for Dr. Dickson Patient seen and examined at bedside. Nursing reported that overnight patient continued to refuse certain medications. Patient continues to complain of generalized pain which she reports is secondary to her fibromyalgia. Patient reported 2-3 soft bowel movements and that her diarrhea had improved. She also reported her appetite has improved. On ROS patient denied fever, chest pain, SOB, cough, abd pain, nausea, vomiting. Patient's RLE still in cast. Objective - Vital Signs/Intake and Output Vital Signs (last 24 hours): Temp Pulse Resp BP Pulse Ox 98.9 F 108 H 16 136/81 96 09/12/18 23:45 09/13/18 01:55 09/12/18 23:45 09/12/18 23:45 09/12/18 23:45 Intake and Output: 09/13/18 09/13/18 06:59 18:59 Output Total 600 Balance -600 - Medications Medications: Current Medications Acetaminophen (Tylenol 325mg Tab) 650 mg PO Q6 PRN PRN Reason: Pain, moderate (4-7) Colchicine (Colocrys) 0.6 mg PO BID [facility] Last Admin: 09/12/18 18:20 Dose: 0.6 mg Cyclobenzaprine HCl (Flexeril) 5 mg PO TID [facility] Last Admin: 09/12/18 18:20 Dose: 5 mg Dextrose (Dextrose 50% Inj) 0 ml IV STAT PRN; Protocol PRN Reason: Hypoglycemia Protocol Dextrose (Glutose 15) 0 gm PO ONCE PRN; Protocol PRN Reason: Hypoglycemia Protocol Diazepam (Valium) 5 mg PO BID [facility] Last Admin: 09/12/18 18:20 Dose: 5 mg Dicyclomine HCl (Bentyl) 20 mg PO TID [facility] Last Admin: 09/12/18 18:20 Dose: 20 mg Diltiazem HCl (Cardizem Cd) 180 mg PO BID [facility] Last Admin: 09/12/18 18:20 Dose: 180 mg Ergocalciferol (Drisdol 50,000 Intl Units Cap) 1 cap PO Q7D [facility] Last Admin: 09/10/18 09:56 Dose: 1 cap Ferrous Gluconate (Fergon) 324 mg PO TID [facility] Last Admin: 09/12/18 18:20 Dose: 324 mg Fluticasone/Vilanterol (Breo Ellipta 100-25 Mcg Inh) 1 puff INH RQ24 [facility] Last Admin: 09/12/18 07:35 Dose: 1 puff Furosemide (Lasix) 20 mg PO BID [facility] Last Admin: 09/12/18 18:21 Dose: 20 mg Gabapentin (Neurontin) 300 mg PO HS [facility] Last Admin: 09/12/18 21:45 Dose: 300 mg Glipizide (Glucotrol) 10 mg PO BID [facility] Last Admin: 09/12/18 18:20 Dose: 10 mg Glucagon (Glucagen Diagnostic Kit) 0 mg IM STAT PRN; Protocol PRN Reason: Hypoglycemia Protocol Hydrocortisone (Cortef) 20 mg PO TID [facility] Last Admin: 09/12/18 18:20 Dose: 20 mg Azithromycin 500 mg/ Sodium (Chloride) 250 mls @ 167 mls/hr IVPB Q24H [facility]; Protocol Last Admin: 09/04/18 01:00 Dose: 167 mls/hr Insulin Aspart (Novolog) 0 unit SC ACHS [facility] Last Admin: 09/12/18 21:46 Dose: Not Given Insulin Aspart (Novolog) 8 unit SC AC [facility] Last Admin: 09/12/18 17:10 Dose: Not Given Insulin Glargine (Lantus) 18 unit SC HS [facility] Last Admin: 09/12/18 21:46 Dose: 18 units Levothyroxine Sodium (Synthroid) 100 mcg PO 0630 [facility] Last Admin: 09/13/18 06:49 Dose: 100 mcg Lisinopril (Zestril) 10 mg PO DAILY [facility] Last Admin: 09/12/18 09:47 Dose: 10 mg Magnesium Oxide (Mag-Ox) 400 mg PO BID [facility] Last Admin: 09/12/18 18:20 Dose: 400 mg Metronidazole (Flagyl) 500 mg PO Q8 [facility] Last Admin: 09/13/18 06:49 Dose: 500 mg Ondansetron HCl (Zofran Inj) 4 mg IVP Q8 PRN PRN Reason: Nausea/Vomiting Oxycodone/Acetaminophen (Percocet 5/325 Mg Tab) 2 tab PO Q6H PRN PRN Reason: Pain, severe (8-10) Stop: 09/15/18 20:20 Last Admin: 09/12/18 20:53 Dose: 2 tab Pantoprazole Sodium (Protonix Ec Tab) 40 mg PO DAILY [facility] Last Admin: 09/12/18 09:48 Dose: 40 mg Rivaroxaban (Xarelto) 20 mg PO DAILY [facility] Last Admin: 09/12/18 09:48 Dose: 20 mg Rosuvastatin Calcium (Crestor) 10 mg PO HS [facility] Last Admin: 09/12/18 21:45 Dose: 10 mg Saccharomyces Boulardii (Florastor) 250 mg PO Q12 [facility] Last Admin: 09/12/18 21:45 Dose: 250 mg Sertraline HCl (Zoloft) 50 mg PO DAILY [facility] Last Admin: 09/12/18 09:49 Dose: 50 mg Sitagliptin Phosphate (Januvia) 100 mg PO DAILY [facility] Last Admin: 09/12/18 09:49 Dose: 100 mg Sucralfate (Carafate Oral Susp) 1 gm PO ACBHS [facility] Last Admin: 09/12/18 21:45 Dose: 1 gm Trazodone HCl (Desyrel) 50 mg PO [facility] Last Admin: 09/12/18 21:45 Dose: 50 mg Vancomycin HCl (Vancocin 250mg Capsule) 250 mg PO QID [facility] Last Admin: 09/12/18 21:45 Dose: 250 mg Vitamin B Complex/Vit C/Folic Acid (Nephro-Lavinia) 1 tab PO 0800 [facility] - Labs Labs: 09/12/18 07:27 09/12/18 07:27 PT 21.0 SECONDS (9.7-12.2) H 09/05/18 16:44 INR 1.9 09/05/18 16:44 APTT 28 SECONDS (21-34) 09/05/18 16:44 - Additional Findings Additional findings: - Constitutional Appears: Non-toxic, No Acute Distress, Unkempt, Chronically Ill - Head Exam Head Exam: ATRAUMATIC, NORMAL INSPECTION, NORMOCEPHALIC - Eye Exam Eye Exam: Normal appearance. absent: Conjunctival injection, Scleral icterus - ENT Exam ENT Exam: Mucous Membranes Moist - Respiratory Exam Respiratory Exam: Decreased Breath Sounds, Wheezes (diffuse b/l ), NORMAL BREATHING PATTERN. absent: Rales, Rhonchi, Respiratory Distress - Cardiovascular Exam Cardiovascular Exam: +S1, +S2 - GI/Abdominal Exam GI & Abdominal Exam: Soft, Normal Bowel Sounds. absent: Firm, Guarding, Rigid, Tenderness - Extremities Exam Additional comments: RLE in immobile cast - Neurological Exam Neurological Exam: Alert, Awake - Psychiatric Exam Psychiatric exam: Normal Affect, Normal Mood - Skin Skin Exam: Dry, Intact, Warm Assessment and Plan - Assessment and Plan (Free Text) Assessment: 63yo female PMHx COPD, Type 2 IDDM, anxiety, depression, DVT, PE, OA originally presented with fever. Endocrinology consultation requested for hyperglycemic accelerations. Plan: 1. Uncontrolled type 2 IDDM in the setting of acute illness Overnight Accuchecks noted- blood glucose continuing to improve. Continue Januvia 100mg PO QD, Lantus 18U hs, Aspart 8U AC, and Glipizide 10 bid. Patient continued on RISS. Continue CORRECTION diet. Patient's BG goal in patient is 140-180 and outpatient is 90-130. Hypoglycemic protocol in place. Will continue to monitor closely. 2. Hypothyroidism TSH slightly low (0.3) but T4 wnl. Continue with levothyroxine 100mcg PO QD. Kenyon l continue to monitor closely. Will discuss with Dr. Randolph Rodriguez PGY3
[2018-09-13] MEDS: Fluticasone-Vilanterol 100/25mcg Diskus INH SCH (07:38)
--- NOTE | 2018-09-13 08:07 | PN ---
DATE: 09/13/2018 LOCATION: 554. SUBJECTIVE: This is a 63-year-old female, seen and examined in rounds early this morning with recurrent complaints of abdominal pain, postprandial abdominal distention, and less oral intake. No reported chest pain, palpitation, or significant shortness of breath, but generalized weakness and malaise with body ache. LABORATORY DATA: Today's lab result showed blood glucose level of 158. The patient still has low hemoglobin and hematocrit with low indices, highly suggestive of hypochromic microcytic anemia, but thrombocytosis of 449 with low albumin, low total protein due to poor oral intake. PHYSICAL EXAMINATION: GENERAL: A 63-year-old female, awake, alert, oriented. VITAL SIGNS: Afebrile with pulse of 102, respiratory rate 16/13, blood pressure 130/78. HEENT: Showed pale dry oral mucous membrane. Nonicteric sclerae. LUNGS: Few scattered crepitation. Decreased air entry at bases. HEART: Positive S1 and S2. ABDOMEN: Soft with mild generalized tenderness. No mass or organomegaly. No rebound tenderness or guarding. EXTREMITIES: Lower extremities with mild edematous changes, but no cyanosis or clubbing. NEUROLOGIC: No reported new neurological deficits, sensory or motor. IMPRESSION: 1. Pancreatic mass lesion with excessive increase of CA 19-9, highly suggestive of pancreatic carcinoma. 2. Poorly controlled diabetes mellitus. 3. Re-exacerbation of peptic ulcer disease. 4. Hypochromic microcytic anemia that could be secondary to above versus upper or lower gastrointestinal blood loss. 5. Abnormal CAT scan of the abdomen and pelvis. 6. Reported history of fibromyalgia, pseudomembranous colitis with diarrhea which is improving gradually, but slowly. 7. History of hypertension, congestive heart failure, severe anxiety syndrome. 8. Reported history of deep venous thrombosis and pulmonary embolus. SUGGESTIONS: 1. Continue current management. 2. The patient will need again CAT scan-guided biopsy of the pancreatic mass. 3. Upper and lower endoscopy to rule out secondary, primary versus metastatic lesion including the gastric mucosa or/and the colon due to elevated CEA level. 4. Continue current management. 5. Further recommendation to follow. Cara Piedra MD
[2018-09-13 08:16] LABS: HEMOGLOBIN 8.7 g/dL (11.0-16.0); MEAN CELL VOLUME 75.7 fL (81.0-99.0); MEAN CORPUSCULAR HEMOGLOBIN 22.6 pg (27.0-31.0); MEAN CORPUSCULAR HGB CONC 29.8 g/dL (33.0-37.0); MEAN PLATELET VOLUME 9.1 fL (7.2-11.7); RBC 3.86 Mil/uL (3.80-5.20); RED CELL DISTRIBUTION WIDTH 20.2 % (11.5-14.5); WHITE BLOOD COUNT 11.1 K/uL (4.8-10.8)
[2018-09-13 08:35] LABS: ALB/GLOB RATIO 1.2 (1.0-2.1); ALBUMIN 2.8 g/dL (3.5-5.0); ALT/SGPT 53 U/L (9-52); AST/SGOT 39 U/L (14-36); BLOOD UREA NITROGEN 23 mg/dL (7-17); CALCIUM 7.9 mg/dl (8.6-10.4); GFR NON-AFRICAN AMERICAN > 60
[2018-09-13 09:15] LABS: NEUT # 8.3 K/uL (1.8-7.0)
[2018-09-13] MEDS ORDERED: Potassium Chloride 20 mEq ER Tab PO ONE (09:15)
[2018-09-13 09:16] LABS: LYMPH # 1.3 K/uL (1.0-4.3); MONO # 1.5 K/uL (0.0-0.8)
[2018-09-13] MEDS: Pantoprazole 40 mg EC Tab PO SCH (09:48)
[2018-09-13] MEDS: Saccharomyces Boulardi 250 mg Cap PO SCH ×2 (09:48→21:23)
[2018-09-13] MEDS: Magnesium Oxide 400 mg Tab UD PO SCH ×2 (09:49→17:22)
[2018-09-13] MEDS: diltiaZEM 180 mg/24 Hours CD Cap PO SCH ×2 (09:49→17:21)
[2018-09-13] MEDS: Multivitamin Vitamin B Complex (Nephro-Vite) Tab PO SCH (09:49)
[2018-09-13] MEDS: Vancomycin Hydrochloride 250 mg Capsule (Oral) PO SCH ×4 (09:49→21:22)
[2018-09-13] MEDS: (Novolog) Insulin Aspart, Recombinant 100 u/ml 10 ml vial SC SCH ×7 (09:50→21:24)
[2018-09-13] MEDS: Oxycodone/Acetaminophen 5/325 mg Tab PO PRN ×2 (09:53→20:51)
[2018-09-13] MEDS: Sucralfate 1 gm/10 ml Oral Susp UD PO SCH ×2 (09:57→21:23)
--- NOTE | 2018-09-13 10:55 | CP.PCM.PN ---
Subjective - Date & Time of Evaluation Date of Evaluation: 09/13/18 Time of Evaluation: 10:54 - Subjective Subjective: Nephrology Consultation Note: Assessment: Stable Acute Kidney Injury (N17.9) likely due to hypotension/sepsis/renal hypoperfusion as also evident by concomitant abnormal AST/ALT: IMPROVING Anemia hyponatremia GPC sepsis hypomagnesemia DM, HTN dCHF, DVT/PE s/p IVC filter, gout, hypothyroidism hyperlipidemia fibromyalgias depression/anxiety COPD Adrenal Insuff C.diff colitis pancreatic mass ? malignancy Plan No acute need for renal replacement therapy at this time. Hypertension control with meds as ordered. Maintain hemodynamics stable. Avoid hypotension. Patient back on acei. Monitor Input/Output, daily weights and renal function with basic metabolic panel increased lasix 20 mg bid will add iron and MVI. pt on weekly vit D supplement lytes as needed. ordered for K and Mag seen by hepato-biliary surgeon and pall care Dose meds/antibiotics for improved GFR. Glycemic control Further work up/management as per primary team Thanks for allowing me to participate in care of your patient. Will follow patient with you. Please call if any Qs. had d/w team Dr Robert Lam Office: [phone] Chief Complaint; fever Reason for consult: Acute Kidney Injury HPI: Pt is a 63 F with hx of diabetes Mellitus ( years), hypertension (years) dCHF, DVT/PE s/p IVC filter, gout, hypothyroidism hyperlipidemia fibromyalgias depression/amxiety COPD presented with complaints of fever and cough, admitted for KARMA and ? COPD exacerbation Denies OTC/herbal meds or NSAIDs No recent iodinated contrast exposure. Noted obvious episodes of low BP (88/46). ROS: Cardiovascular: No chest pain. Pulmonary: better shortness of breath Gastrointestinal: better abdominal pain No nausea. No vomiting. Genitourinary: No pain while urinating. Denies blood in urine. All other negative except as mentioned in HPI Physical Examination: General Appearance: comfortable, in no acute respiratory distress, co-operative . overall ill appearing and debilitated Vitals reviewed and noted as below Head; Atraumatic, normocephalic ENT: no ulcers no thrush. Tongue is midline/dry. Oropharynx: no rash or ulcers. EYES: Pupils are equal, round and reactive to light accommodation. Eye muscles and extraocular movement intact. Sclera is anicteric. Neck; supple no lymphadenopathy, no thyromegaly or bruit Lungs: Normal respiratory rate/effort. Breath sounds bilateral equal and few basal crackle Heart: Increased rate. s1s2 normal. No rub or gallop. Extremities: 1+ edema. No varicose veins Neurological: Patient is alert, awake and oriented to person, place and time. No focal deficit. Strength bilateral appropriate and equal Skin: Warm and dry. Normal turgor. No rash. Palpitation: Normal elasticity for age Abdomen: Abdomen is soft. Bowel sounds +. There is no abdominal tenderness, no guarding/rigidity no organomegaly Psych: limited insight and normal affect/mood MSK: no joint tenderness or swelling. Digits and nails normal, no deformity. Rt leg in splint : kidney or bladder not palpable Labs/imaging reviewed. Past medical history, past surgical history, family history, social history, allergy reviewed and noted as below Family hx: no hx of CKD. Rest non-contributory Hep B/C neg UA no protein Objective - Vital Signs/Intake and Output Vital Signs (last 24 hours): Temp Pulse Resp BP Pulse Ox 98.2 F 104 H 18 151/83 H 93 L 09/13/18 08:16 09/13/18 08:16 09/13/18 08:16 09/13/18 09:51 09/13/18 08:16 Intake and Output: 09/13/18 09/13/18 06:59 18:59 Output Total 600 Balance -600 - Medications Medications: Current Medications Acetaminophen (Tylenol 325mg Tab) 650 mg PO Q6 PRN PRN Reason: Pain, moderate (4-7) Colchicine (Colocrys) 0.6 mg PO BID [facility] Last Admin: 09/13/18 09:50 Dose: 0.6 mg Cyclobenzaprine HCl (Flexeril) 5 mg PO TID [facility] Last Admin: 09/13/18 09:49 Dose: 5 mg Dextrose (Dextrose 50% Inj) 0 ml IV STAT PRN; Protocol PRN Reason: Hypoglycemia Protocol Dextrose (Glutose 15) 0 gm PO ONCE PRN; Protocol PRN Reason: Hypoglycemia Protocol Diazepam (Valium) 5 mg PO BID [facility] Last Admin: 09/13/18 09:50 Dose: 5 mg Dicyclomine HCl (Bentyl) 20 mg PO TID [facility] Last Admin: 09/13/18 09:49 Dose: 20 mg Diltiazem HCl (Cardizem Cd) 180 mg PO BID [facility] Last Admin: 09/13/18 09:49 Dose: 180 mg Ergocalciferol (Drisdol 50,000 Intl Units Cap) 1 cap PO Q7D [facility] Last Admin: 09/10/18 09:56 Dose: 1 cap Ferrous Gluconate (Fergon) 324 mg PO TID [facility] Last Admin: 09/13/18 09:49 Dose: 324 mg Fluticasone/Vilanterol (Breo Ellipta 100-25 Mcg Inh) 1 puff INH RQ24 [facility] Last Admin: 09/13/18 07:38 Dose: 1 puff Furosemide (Lasix) 20 mg PO BID [facility] Last Admin: 09/13/18 09:51 Dose: 20 mg Gabapentin (Neurontin) 300 mg PO HS [facility] Last Admin: 09/12/18 21:45 Dose: 300 mg Glipizide (Glucotrol) 10 mg PO BID [facility] Last Admin: 09/13/18 09:49 Dose: 10 mg Glucagon (Glucagen Diagnostic Kit) 0 mg IM STAT PRN; Protocol PRN Reason: Hypoglycemia Protocol Hydrocortisone (Cortef) 20 mg PO TID [facility] Last Admin: 09/13/18 09:50 Dose: 20 mg Azithromycin 500 mg/ Sodium (Chloride) 250 mls @ 167 mls/hr IVPB Q24H [facility]; Protocol Last Admin: 09/04/18 01:00 Dose: 167 mls/hr Insulin Aspart (Novolog) 0 unit SC ACHS [facility] Last Admin: 09/13/18 09:50 Dose: Not Given Insulin Aspart (Novolog) 8 unit SC AC [facility] Last Admin: 09/13/18 09:50 Dose: 8 units Insulin Glargine (Lantus) 18 unit SC HS [facility] Last Admin: 09/12/18 21:46 Dose: 18 units Levothyroxine Sodium (Synthroid) 100 mcg PO 0630 [facility] Last Admin: 09/13/18 06:49 Dose: 100 mcg Lisinopril (Zestril) 10 mg PO DAILY [facility] Last Admin: 09/13/18 09:48 Dose: 10 mg Magnesium Oxide (Mag-Ox) 400 mg PO BID [facility] Last Admin: 09/13/18 09:49 Dose: 400 mg Metronidazole (Flagyl) 500 mg PO Q8 [facility] Last Admin: 09/13/18 06:49 Dose: 500 mg Ondansetron HCl (Zofran Inj) 4 mg IVP Q8 PRN PRN Reason: Nausea/Vomiting Oxycodone/Acetaminophen (Percocet 5/325 Mg Tab) 2 tab PO Q6H PRN PRN Reason: Pain, severe (8-10) Stop: 09/15/18 20:20 Last Admin: 09/13/18 09:53 Dose: 2 tab Pantoprazole Sodium (Protonix Ec Tab) 40 mg PO DAILY [facility] Last Admin: 09/13/18 09:48 Dose: 40 mg Rivaroxaban (Xarelto) 20 mg PO DAILY [facility] Last Admin: 09/13/18 09:49 Dose: 20 mg Rosuvastatin Calcium (Crestor) 10 mg PO HS [facility] Last Admin: 09/12/18 21:45 Dose: 10 mg Saccharomyces Boulardii (Florastor) 250 mg PO Q12 [facility] Last Admin: 09/13/18 09:48 Dose: 250 mg Sertraline HCl (Zoloft) 50 mg PO DAILY [facility] Last Admin: 09/13/18 09:48 Dose: 50 mg Sitagliptin Phosphate (Januvia) 100 mg PO DAILY [facility] Last Admin: 09/13/18 09:49 Dose: 100 mg Sucralfate (Carafate Oral Susp) 1 gm PO ACBHS [facility] Last Admin: 09/13/18 09:57 Dose: Not Given Trazodone HCl (Desyrel) 50 mg PO HS [facility] Last Admin: 09/12/18 21:45 Dose: 50 mg Vancomycin HCl (Vancocin 250mg Capsule) 250 mg PO QID [facility] Last Admin: 09/13/18 09:49 Dose: 250 mg Vitamin B Complex/Vit C/Folic Acid (Nephro-Lavinia) 1 tab PO 0800 [facility] Last Admin: 09/13/18 09:49 Dose: 1 tab - Labs Labs: 09/13/18 07:58 09/13/18 07:58 PT 21.0 SECONDS (9.7-12.2) H 09/05/18 16:44 INR 1.9 09/05/18 16:44 APTT 28 SECONDS (21-34) 09/05/18 16:44
[2018-09-13] MEDS: Magnesium Sulfate 1 gm in D5W 1 GM/100 ML BAG IVPB SCH (11:57)
--- NOTE | 2018-09-13 12:19 | CP.PCM.PN ---
Subjective - Date & Time of Evaluation Date of Evaluation: 09/13/18 Time of Evaluation: 09:00 - Subjective Subjective: Patient seen and examined at bedside. In poor spirits. Now being worked up for metastatic CA. In isolated due to suspected C diff infection. Pain controlled to R knee. Objective - Vital Signs/Intake and Output Vital Signs (last 24 hours): Temp Pulse Resp BP Pulse Ox 98.2 F 104 H 18 151/83 H 93 L 09/13/18 08:16 09/13/18 08:16 09/13/18 08:16 09/13/18 09:51 09/13/18 08:16 Intake and Output: 09/13/18 09/13/18 06:59 18:59 Output Total 600 Balance -600 - Medications Medications: Current Medications Acetaminophen (Tylenol 325mg Tab) 650 mg PO Q6 PRN PRN Reason: Pain, moderate (4-7) Colchicine (Colocrys) 0.6 mg PO BID [facility] Last Admin: 09/13/18 09:50 Dose: 0.6 mg Cyclobenzaprine HCl (Flexeril) 5 mg PO TID [facility] Last Admin: 09/13/18 09:49 Dose: 5 mg Dextrose (Dextrose 50% Inj) 0 ml IV STAT PRN; Protocol PRN Reason: Hypoglycemia Protocol Dextrose (Glutose 15) 0 gm PO ONCE PRN; Protocol PRN Reason: Hypoglycemia Protocol Diazepam (Valium) 5 mg PO BID [facility] Last Admin: 09/13/18 09:50 Dose: 5 mg Dicyclomine HCl (Bentyl) 20 mg PO TID [facility] Last Admin: 09/13/18 09:49 Dose: 20 mg Diltiazem HCl (Cardizem Cd) 180 mg PO BID [facility] Last Admin: 09/13/18 09:49 Dose: 180 mg Ergocalciferol (Drisdol 50,000 Intl Units Cap) 1 cap PO Q7D [facility] Last Admin: 09/10/18 09:56 Dose: 1 cap Ferrous Gluconate (Fergon) 324 mg PO TID [facility] Last Admin: 09/13/18 09:49 Dose: 324 mg Fluticasone/Vilanterol (Breo Ellipta 100-25 Mcg Inh) 1 puff INH RQ24 [facility] Last Admin: 09/13/18 07:38 Dose: 1 puff Furosemide (Lasix) 20 mg PO BID [facility] Last Admin: 09/13/18 09:51 Dose: 20 mg Gabapentin (Neurontin) 300 mg PO HS [facility] Last Admin: 09/12/18 21:45 Dose: 300 mg Glipizide (Glucotrol) 10 mg PO BID [facility] Last Admin: 09/13/18 09:49 Dose: 10 mg Glucagon (Glucagen Diagnostic Kit) 0 mg IM STAT PRN; Protocol PRN Reason: Hypoglycemia Protocol Hydrocortisone (Cortef) 20 mg PO TID [facility] Last Admin: 09/13/18 09:50 Dose: 20 mg Azithromycin 500 mg/ Sodium (Chloride) 250 mls @ 167 mls/hr IVPB Q24H [facility]; Protocol Last Admin: 09/04/18 01:00 Dose: 167 mls/hr Insulin Aspart (Novolog) 0 unit SC ACHS [facility] Last Admin: 09/13/18 11:26 Dose: Not Given Insulin Aspart (Novolog) 8 unit SC AC [facility] Last Admin: 09/13/18 09:50 Dose: 8 units Insulin Glargine (Lantus) 18 unit SC [facility] Last Admin: 09/12/18 21:46 Dose: 18 units Levothyroxine Sodium (Synthroid) 100 mcg PO 0630 [facility] Last Admin: 09/13/18 06:49 Dose: 100 mcg Lisinopril (Zestril) 10 mg PO DAILY [facility] Last Admin: 09/13/18 09:48 Dose: 10 mg Magnesium Oxide (Mag-Ox) 400 mg PO BID [facility] Last Admin: 09/13/18 09:49 Dose: 400 mg Metronidazole (Flagyl) 500 mg PO Q8 [facility] Last Admin: 09/13/18 06:49 Dose: 500 mg Ondansetron HCl (Zofran Inj) 4 mg IVP Q8 PRN PRN Reason: Nausea/Vomiting Oxycodone/Acetaminophen (Percocet 5/325 Mg Tab) 2 tab PO Q6H PRN PRN Reason: Pain, severe (8-10) Stop: 09/15/18 20:20 Last Admin: 09/13/18 09:53 Dose: 2 tab Pantoprazole Sodium (Protonix Ec Tab) 40 mg PO DAILY [facility] Last Admin: 09/13/18 09:48 Dose: 40 mg Potassium Chloride (K-Dur 20 Meq Er Tab) 20 meq PO DAILY [facility] Stop: 09/19/18 10:01 Rivaroxaban (Xarelto) 20 mg PO DAILY [facility] Last Admin: 09/13/18 09:49 Dose: 20 mg Rosuvastatin Calcium (Crestor) 10 mg PO HS [facility] Last Admin: 09/12/18 21:45 Dose: 10 mg Saccharomyces Boulardii (Florastor) 250 mg PO Q12 [facility] Last Admin: 09/13/18 09:48 Dose: 250 mg Sertraline HCl (Zoloft) 50 mg PO DAILY [facility] Last Admin: 09/13/18 09:48 Dose: 50 mg Sitagliptin Phosphate (Januvia) 100 mg PO DAILY [facility] Last Admin: 09/13/18 09:49 Dose: 100 mg Sucralfate (Carafate Oral Susp) 1 gm PO ACBHS [facility] Last Admin: 09/13/18 09:57 Dose: Not Given Trazodone HCl (Desyrel) 50 mg PO HS [facility] Last Admin: 09/12/18 21:45 Dose: 50 mg Vancomycin HCl (Vancocin 250mg Capsule) 250 mg PO QID [facility] Last Admin: 09/13/18 09:49 Dose: 250 mg Vitamin B Complex/Vit C/Folic Acid (Nephro-Lavinia) 1 tab PO 0800 [facility] Last Admin: 09/13/18 09:49 Dose: 1 tab - Labs Labs: 09/13/18 07:58 09/13/18 07:58 PT 21.0 SECONDS (9.7-12.2) H 09/05/18 16:44 INR 1.9 09/05/18 16:44 APTT 28 SECONDS (21-34) 09/05/18 16:44 - Extremities Exam Additional comments: RLE: mild tenderness to anterior knee knee immobilizer intact well padded dressings intact sensation intact SP/DP/TN motor intact EHL/FHL/TA/G pedal pulse intact pedal edema calves soft NT b/l Assessment and Plan (1) Closed fracture of right proximal tibia Assessment & Plan: -PT/OT NWB RLE -continue conservative mgmt with knee immobilizer, padded wrap -DVT ppx -orthopedically stable -above d/w Dr. Hernandez in agreement Status: Acute
--- NOTE | 2018-09-13 13:22 | CP.PCM.PN ---
Subjective - Date & Time of Evaluation Date of Evaluation: 09/13/18 Time of Evaluation: 09:00 - Subjective Subjective: PGY2- Progress Note for Dr. Gutierres Patient seen and examined at bedside and in no acute distress. Patient says she has generalized pain from her fibromyalgia. Patient says her diarrhea is improved. Patient had 2 episodes of loose stools yesterday. Today patient had one episode of semi solid stool. She denies chest pain, palpitations, nausea, vomiting, fevers, headaches, dizziness, dysuria. Objective - Vital Signs/Intake and Output Vital Signs (last 24 hours): Temp Pulse Resp BP Pulse Ox 98.2 F 104 H 18 151/83 H 93 L 09/13/18 08:16 09/13/18 08:16 09/13/18 08:16 09/13/18 09:51 09/13/18 08:16 Intake and Output: 09/13/18 09/13/18 06:59 18:59 Output Total 600 Balance -600 - Medications Medications: Current Medications Acetaminophen (Tylenol 325mg Tab) 650 mg PO Q6 PRN PRN Reason: Pain, moderate (4-7) Colchicine (Colocrys) 0.6 mg PO BID [facility] Last Admin: 09/13/18 09:50 Dose: 0.6 mg Cyclobenzaprine HCl (Flexeril) 5 mg PO TID [facility] Last Admin: 09/13/18 09:49 Dose: 5 mg Dextrose (Dextrose 50% Inj) 0 ml IV STAT PRN; Protocol PRN Reason: Hypoglycemia Protocol Dextrose (Glutose 15) 0 gm PO ONCE PRN; Protocol PRN Reason: Hypoglycemia Protocol Diazepam (Valium) 5 mg PO BID [facility] Last Admin: 09/13/18 09:50 Dose: 5 mg Dicyclomine HCl (Bentyl) 20 mg PO TID [facility] Last Admin: 09/13/18 09:49 Dose: 20 mg Diltiazem HCl (Cardizem Cd) 180 mg PO BID [facility] Last Admin: 09/13/18 09:49 Dose: 180 mg Ergocalciferol (Drisdol 50,000 Intl Units Cap) 1 cap PO Q7D [facility] Last Admin: 09/10/18 09:56 Dose: 1 cap Ferrous Gluconate (Fergon) 324 mg PO TID [facility] Last Admin: 09/13/18 09:49 Dose: 324 mg Fluticasone/Vilanterol (Breo Ellipta 100-25 Mcg Inh) 1 puff INH RQ24 [facility] Last Admin: 09/13/18 07:38 Dose: 1 puff Furosemide (Lasix) 20 mg PO BID [facility] Last Admin: 09/13/18 09:51 Dose: 20 mg Gabapentin (Neurontin) 300 mg PO HS [facility] Last Admin: 09/12/18 21:45 Dose: 300 mg Glipizide (Glucotrol) 10 mg PO BID [facility] Last Admin: 09/13/18 09:49 Dose: 10 mg Glucagon (Glucagen Diagnostic Kit) 0 mg IM STAT PRN; Protocol PRN Reason: Hypoglycemia Protocol Hydrocortisone (Cortef) 20 mg PO TID [facility] Last Admin: 09/13/18 09:50 Dose: 20 mg Azithromycin 500 mg/ Sodium (Chloride) 250 mls @ 167 mls/hr IVPB Q24H [facility]; Protocol Last Admin: 09/04/18 01:00 Dose: 167 mls/hr Insulin Aspart (Novolog) 0 unit SC ACHS [facility] Last Admin: 09/13/18 11:26 Dose: Not Given Insulin Aspart (Novolog) 8 unit SC AC [facility] Last Admin: 09/13/18 09:50 Dose: 8 units Insulin Glargine (Lantus) 18 unit SC HS [facility] Last Admin: 09/12/18 21:46 Dose: 18 units Levothyroxine Sodium (Synthroid) 100 mcg PO 0630 [facility] Last Admin: 09/13/18 06:49 Dose: 100 mcg Lisinopril (Zestril) 10 mg PO DAILY [facility] Last Admin: 09/13/18 09:48 Dose: 10 mg Magnesium Oxide (Mag-Ox) 400 mg PO BID [facility] Last Admin: 09/13/18 09:49 Dose: 400 mg Metronidazole (Flagyl) 500 mg PO Q8 [facility] Last Admin: 09/13/18 06:49 Dose: 500 mg Ondansetron HCl (Zofran Inj) 4 mg IVP Q8 PRN PRN Reason: Nausea/Vomiting Oxycodone/Acetaminophen (Percocet 5/325 Mg Tab) 2 tab PO Q6H PRN PRN Reason: Pain, severe (8-10) Stop: 09/15/18 20:20 Last Admin: 09/13/18 09:53 Dose: 2 tab Pantoprazole Sodium (Protonix Ec Tab) 40 mg PO DAILY [facility] Last Admin: 09/13/18 09:48 Dose: 40 mg Potassium Chloride (K-Dur 20 Meq Er Tab) 20 meq PO DAILY [facility] Stop: 09/19/18 10:01 Rivaroxaban (Xarelto) 20 mg PO DAILY [facility] Last Admin: 09/13/18 09:49 Dose: 20 mg Rosuvastatin Calcium (Crestor) 10 mg PO HS [facility] Last Admin: 09/12/18 21:45 Dose: 10 mg Saccharomyces Boulardii (Florastor) 250 mg PO Q12 [facility] Last Admin: 09/13/18 09:48 Dose: 250 mg Sertraline HCl (Zoloft) 50 mg PO DAILY [facility] Last Admin: 09/13/18 09:48 Dose: 50 mg Sitagliptin Phosphate (Januvia) 100 mg PO DAILY [facility] Last Admin: 09/13/18 09:49 Dose: 100 mg Sucralfate (Carafate Oral Susp) 1 gm PO ACBHS [facility] Last Admin: 09/13/18 09:57 Dose: Not Given Trazodone HCl (Desyrel) 50 mg PO HS [facility] Last Admin: 09/12/18 21:45 Dose: 50 mg Vancomycin HCl (Vancocin 250mg Capsule) 250 mg PO QID [facility] Last Admin: 09/13/18 09:49 Dose: 250 mg Vitamin B Complex/Vit C/Folic Acid (Nephro-Lavinia) 1 tab PO 0800 [facility] Last Admin: 09/13/18 09:49 Dose: 1 tab - Labs Labs: 09/13/18 07:58 09/13/18 07:58 PT 21.0 SECONDS (9.7-12.2) H 09/05/18 16:44 INR 1.9 09/05/18 16:44 APTT 28 SECONDS (21-34) 09/05/18 16:44 - Additional Findings Additional findings: - Constitutional Appears: No Acute Distress, Chronically Ill - Head Exam Head Exam: NORMAL INSPECTION - Eye Exam Eye Exam: EOMI, Normal appearance - ENT Exam ENT Exam: Mucous Membranes Moist - Respiratory Exam Respiratory Exam: NORMAL BREATHING PATTERN, rales throughout absent: Wheezes, Respiratory Distress - Cardiovascular Exam Cardiovascular Exam: REGULAR RHYTHM, +S1, +S2 - GI/Abdominal Exam GI & Abdominal Exam: Soft, Normal Bowel Sounds, left sided abdominal pain w/palpation. absent: Distended, Firm - Extremities Exam Extremities Exam: Pedal Edema, Tenderness; RLE-knee immobilizer in place - Neurological Exam Neurological Exam: Alert, Awake, Oriented x3 - Psychiatric Exam Psychiatric exam: Normal Affect, Normal mood - Skin Skin Exam: Dry, Normal Color, Warm Assessment and Plan - Assessment and Plan (Free Text) Assessment: C.Difficile Fever, SIRS-resolved *Afebrile since admission *Isolation, contact precautions discontinued on 09/12/18 as C dif Ag and Toxin negative from 09/10/18 - Febrile at admission, 101.8F. Leukocytosis 12.4, improved to 8.5. No bandemia. - Lactate at admission 1.6; repeat 0.9 on 09/02/18 - ID Consult: Dr. Ltitle --> help appreciated - GI Consult: Dr. Laurent --> help appreciated - CXR: negative for acute pathology - Blood cx: coagulase neg staph - probably contaminated, repeat blood culture from 09/04/18 negative - Urinalysis: negative for infection - Urine cx: negative - C.Diff: positive on 09/02/18 - Ova/parasites: negative - Stool Culture: negative - Stool leukocytes: negative; stool occult negative - Medications: * Vancomycin 250mg PO QID (active since 09/07/18, dc 09/20/18 * d/c Azithromycin 500mg IV Q24 (active from 09/02/18 to 09/04/18 ) * d/c on 09/13/18- Flagyl 500mg IV q8h ( 09/02/18 -09/13/18) * Florastor 250mg PO BID Pancreatic Mass - +Abdominal pain - CEA: 42.5 - CA19-9: 1980 - CA125: 36.2 - Abdomen/Pelvic CT: Heterogeneous hyperdense pancreatic mass measuring approximately 2.7 x 2.5 cm at the pancreatic body/tail. Ectatic dilated p ancreatic duct. Additional cystic heterogeneous focus measuring approximately 15 x 14 mm is noted at the superior aspect of the pancreas. Appearance worrisome for malignant neoplasm. Wall thickening involving the 2nd portion of the duodenum of uncertain significance; considerations include infectious, inflammatory, or malignant etiologies. Correlate clinically and recommend further evaluation with direct visualization if indicated. Small pelvic free fluid. - Surgery consulted, Dr. Bright; help appreciated - Per surgery team, mass appears resectable, however, patient is a not a surgical candidate at this time due to other conditions/comorbities. performance status of 4 currently would need to be improved to 2 for surgical consideration -patient for endoscopy tomorrow with Dr. Laurent to r/o secondary, primary, vs metastatic including gastric mucosa and or colon due to increased CEA -will need CT guided biopsy of the pancreatic mass KARMA Resolved, will continue to monitor - At admission, BUN 44, Cr 3.2 - Nephrology consulted, Dr. Menendez; help appreciated - Avoid nephrotoxic agents - Possibly due to hypotension, sepsis, or renal hypoperfusion - Renal US: Echogenic renal parenchyma the right kidney. Bilateral cortical thinning. Correlate clinically for medical renal disease. Tachycardia - Likely secondary to infection - Cardiology consulted, Dr. Pineda; help appreciated - Increased Cardizem to 180mg PO BID (from 120mg, per Dr. Pineda) - Will continue to monitor Chronic Diastolic Congestive Heart Failure - Stable - Last echo 2016 showed Grade III reversible restrictive diastolic dysfunction, EF 55% - Lasix 20mg PO daily Hypertension - Home medications: * Lisinopril 10mg PO daily * Cardizem 180mg PO BID Diabetes Mellitus - Accuchecks, Hypoglycemia protocol - HgA1c 9.3 (01/2018); repeat A1c 9.0 - Insulin sliding scale - Continue home medications: Januvia 100 mg PO daily, Glipizide 10mg PO BID, Gabapentin 300mg PO HS - Novolog 8 u SC AC - Lantus 18 units HS - Endocrinology consult. Dr Cam. chu appreciated. Fibromyalgia - Home medication: Diazepam 5mg PO BID - Flexeril 5mg PO TID (Holding parameters- hold if sleeping/sedated, hypotension) - Percocet 5/325mg 2 tab Q6H prn for pain - Gabapentin 300mg PO HS Adrenal Insufficiency - Hydrocortisone 20mg PO TID Hypothyroidism - Continue Synthroid 100mcg PO daily - TSH/Free T4: 9.5/0.30 Hypokalemia -repleted -continue to monitor and replete as needed History of DVT/PE - Continue Xarelto 20mg PO daily Gout - Continue Colchicine Depression - Consulted psychiatry, Dr. Dexter, recs appreciated. - Per psychiatry, Started zoloft 50mg po daily (consider tapering up to 100mg), trazodone 50mg po hs -Valium 5mg po bid -overall mood improving COPD - Continue home medication: Breo - Duonebs Q4h prn Closed fracture of right proximal tibia - Orthopedic surgery consulted, Dr. Hernandez; help appreciated - Per ortho: continue well padded knee immobilizer; non operative; recommends PT/OT, NWB, VTE proph, and to f/u with Dr. Hernandez 1-2 weeks upon d/c Prophylactic Measures - Protonix 40mg PO daily, Probiotics - Xarelto 20mg PO daily - PT/OT - Palliative care consulted to discuss goals of care - Case management consulted for discharge planning to [facility] Case discussed and patient seen with Dr. Gutierres
[2018-09-13] MEDS: Potassium Chloride 20 mEq ER Tab PO SCH (13:47)
[2018-09-13] MEDS ORDERED: Ipratropium 0.02% Inhal Soln (0.5 mg/2.5 ml) UD IH PRN (14:15)
[2018-09-13] MEDS ORDERED: Albuterol-Ipratrop 3 mg / 0.5 (3 ml) UD INH PRN (14:20)
[2018-09-13] MEDS ORDERED: Albuterol-Ipratrop 3 mg / 0.5 (3 ml) UD INH STA (14:23)
[2018-09-13] MEDS: (Lantus) Insulin Glargine, Recombinant SC SCH (21:23)
[2018-09-13] MEDS: MethylPREDNISolone 40 mg Vial IVP SCH (22:32)
--- NOTE | 2018-09-14 02:22 | PN ---
DATE: 09/13/2018 ENDOCRINOLOGY FOLLOWUP NOTE LOCATION: Room 554. SUBJECTIVE: This is a 63-year-old female with recent uncontrolled type 2 insulin-requiring diabetes with labile glycemic fluctuations related to the variability of her oral intake as noted thereof. Her glycemic levels today have ranged from 238 to 290 mg/dL. It was 158 early this morning as noted. LABORATORY DATA: Her chemistry showed a BUN of 23, sodium 139, potassium 3.4, chloride 106, CO2 of 27, glucose 152, and creatinine 0.9. PLAN: So at this time, we will hold off insulin dose modifications as she is scheduled for a possible endoscopy tomorrow morning as noted. We will continue the same basal and bolus insulin regimen to allow for dose equilibration and keep her on the NovoLog given as 8 units t.i.d. before meals as ordered. We will also continue the basal insulin given as Lantus as 18 units subcutaneous at bedtime daily as given. We will modify and titrate her dose regimen following the completion of the gastrointestinal workup as indicated. We will obtain serial chemistries and supplement accordingly as needed. We will follow. Neeru Dickson MD
[2018-09-14] MEDS: Levothyroxine 100 MCG TAB PO SCH (06:21)
[2018-09-14 06:50] LABS: ALB/GLOB RATIO 1.2 (1.0-2.1); ALBUMIN 2.9 g/dL (3.5-5.0); ALT/SGPT 41 U/L (9-52); AST/SGOT 27 U/L (14-36); BLOOD UREA NITROGEN 26 mg/dL (7-17); CALCIUM 8.3 mg/dl (8.6-10.4); GFR NON-AFRICAN AMERICAN 56
--- NOTE | 2018-09-14 07:16 | CP.PCM.PN ---
Subjective - Date & Time of Evaluation Date of Evaluation: 09/14/18 Time of Evaluation: 07:15 - Subjective Subjective: Pgy3 Internal Medicine Resident Endocrinology Progress note for Dr. Dickson Patient seen and examined at bedside. Patient on BiPAP this AM (10, 5, 35%). Patient NPO overnight as per GI. Overnight patient's uncontrolled BG 280-320. This AM she was seen and examined at bedside and had no acute complaints of fever, chills, chest pain, cough, abd pain, nausea, vomiting, bowel/bladder complaints. Patient's RLE still in cast. Objective - Vital Signs/Intake and Output Vital Signs (last 24 hours): Temp Pulse Resp BP Pulse Ox 98.6 F 95 H 20 134/73 93 L 09/13/18 23:58 09/14/18 03:40 09/13/18 23:58 09/13/18 23:58 09/13/18 08:16 Intake and Output: 09/14/18 09/14/18 06:59 18:59 Output Total 350 Balance -350 - Medications Medications: Current Medications Acetaminophen (Tylenol 325mg Tab) 650 mg PO Q6 PRN PRN Reason: Pain, moderate (4-7) Albuterol/Ipratropium (Duoneb 3 Mg/0.5 Mg (3 Ml) Ud) 3 ml INH RQ6 PRN PRN Reason: Wheezing Last Admin: 09/13/18 20:15 Dose: 3 ml Colchicine (Colocrys) 0.6 mg PO BID [facility] Last Admin: 09/13/18 17:23 Dose: 0.6 mg Cyclobenzaprine HCl (Flexeril) 5 mg PO TID [facility] Last Admin: 09/13/18 17:23 Dose: 5 mg Dextrose (Dextrose 50% Inj) 0 ml IV STAT PRN; Protocol PRN Reason: Hypoglycemia Protocol Dextrose (Glutose 15) 0 gm PO ONCE PRN; Protocol PRN Reason: Hypoglycemia Protocol Diazepam (Valium) 5 mg PO BID [facility] Last Admin: 09/13/18 17:21 Dose: 5 mg Dicyclomine HCl (Bentyl) 20 mg PO TID [facility] Last Admin: 09/13/18 17:23 Dose: 20 mg Diltiazem HCl (Cardizem Cd) 180 mg PO BID [facility] Last Admin: 09/13/18 17:21 Dose: 180 mg Ergocalciferol (Drisdol 50,000 Intl Units Cap) 1 cap PO Q7D [facility] Last Admin: 09/10/18 09:56 Dose: 1 cap Ferrous Gluconate (Fergon) 324 mg PO TID [facility] Last Admin: 09/13/18 17:22 Dose: 324 mg Fluticasone/Vilanterol (Breo Ellipta 100-25 Mcg Inh) 1 puff INH RQ24 [facility] Last Admin: 09/13/18 07:38 Dose: 1 puff Furosemide (Lasix) 20 mg PO BID [facility] Last Admin: 09/13/18 17:22 Dose: 20 mg Gabapentin (Neurontin) 300 mg PO HS [facility] Last Admin: 09/13/18 21:22 Dose: 300 mg Glipizide (Glucotrol) 10 mg PO BID [facility] Last Admin: 09/13/18 17:21 Dose: 10 mg Glucagon (Glucagen Diagnostic Kit) 0 mg IM STAT PRN; Protocol PRN Reason: Hypoglycemia Protocol Hydrocortisone (Cortef) 20 mg PO TID [facility] Last Admin: 09/13/18 17:22 Dose: 20 mg Insulin Aspart (Novolog) 0 unit SC ACHS [facility] Last Admin: 09/13/18 21:24 Dose: 3 u Insulin Aspart (Novolog) 8 unit SC AC [facility] Last Admin: 09/13/18 17:29 Dose: 8 units Insulin Glargine (Lantus) 18 unit SC HS [facility] Last Admin: 09/13/18 21:23 Dose: 18 units Levothyroxine Sodium (Synthroid) 100 mcg PO 0630 [facility] Last Admin: 09/14/18 06:21 Dose: Not Given Lisinopril (Zestril) 10 mg PO DAILY [facility] Last Admin: 09/13/18 09:48 Dose: 10 mg Magnesium Oxide (Mag-Ox) 400 mg PO BID [facility] Last Admin: 09/13/18 17:22 Dose: 400 mg Methylprednisolone (Solu-Medrol) 20 mg IVP Q12H [facility] Last Admin: 09/13/18 22:32 Dose: 20 mg Ondansetron HCl (Zofran Inj) 4 mg IVP Q8 PRN PRN Reason: Nausea/Vomiting Oxycodone/Acetaminophen (Percocet 5/325 Mg Tab) 2 tab PO Q6H PRN PRN Reason: Pain, severe (8-10) Stop: 09/15/18 20:20 Last Admin: 09/13/18 20:51 Dose: 2 tab Pantoprazole Sodium (Protonix Ec Tab) 40 mg PO DAILY [facility] Last Admin: 09/13/18 09:48 Dose: 40 mg Potassium Chloride (K-Dur 20 Meq Er Tab) 20 meq PO DAILY [facility] Stop: 09/19/18 10:01 Last Admin: 09/13/18 13:47 Dose: Not Given Rivaroxaban (Xarelto) 20 mg PO DAILY [facility] Last Admin: 09/13/18 09:49 Dose: 20 mg Rosuvastatin Calcium (Crestor) 10 mg PO HS [facility] Last Admin: 09/13/18 21:22 Dose: 10 mg Saccharomyces Boulardii (Florastor) 250 mg PO Q12 [facility] Last Admin: 09/13/18 21:23 Dose: 250 mg Sertraline HCl (Zoloft) 50 mg PO DAILY [facility] Last Admin: 09/13/18 09:48 Dose: 50 mg Sitagliptin Phosphate (Januvia) 100 mg PO DAILY [facility] Last Admin: 09/13/18 09:49 Dose: 100 mg Sucralfate (Carafate Oral Susp) 1 gm PO ACBHS [facility] Last Admin: 09/13/18 21:23 Dose: 1 gm Trazodone HCl (Desyrel) 50 mg PO HS [facility] Last Admin: 09/13/18 21:22 Dose: 50 mg Vancomycin HCl (Vancocin 250mg Capsule) 250 mg PO QID [facility] Last Admin: 09/13/18 21:22 Dose: 250 mg Vitamin B Complex/Vit C/Folic Acid (Nephro-Lavinia) 1 tab PO 0800 [facility] Last Admin: 09/13/18 09:49 Dose: 1 tab - Labs Labs: 09/13/18 07:58 09/14/18 06:28 PT 21.0 SECONDS (9.7-12.2) H 09/05/18 16:44 INR 1.9 09/05/18 16:44 APTT 28 SECONDS (21-34) 09/05/18 16:44 - Additional Findings Additional findings: - Constitutional Appears: Non-toxic, No Acute Distress, Unkempt, Chronically Ill - Head Exam Head Exam: ATRAUMATIC, NORMAL INSPECTION, NORMOCEPHALIC - Eye Exam Eye Exam: Normal appearance. absent: Conjunctival injection, Scleral icterus - ENT Exam ENT Exam: Mucous Membranes Moist - Respiratory Exam Respiratory Exam: Decreased Breath Sounds, Wheezes (diffuse b/l ), NORMAL BREATHING PATTERN. absent: Rales, Rhonchi, Respiratory Distress - Cardiovascular Exam Cardiovascular Exam: +S1, +S2 - GI/Abdominal Exam GI & Abdominal Exam: Soft, Normal Bowel Sounds. absent: Firm, Guarding, Rigid, Tenderness - Extremities Exam Additional comments: RLE in immobile cast - Neurological Exam Neurological Exam: Alert, Awake - Psychiatric Exam Psychiatric exam: Normal Affect, Normal Mood - Skin Skin Exam: Dry, Intact, Warm Assessment and Plan - Assessment and Plan (Free Text) Assessment: 63yo female PMHx COPD, Type 2 IDDM, anxiety, depression, DVT, PE, OA originally presented with fever. Endocrinology consultation requested for hyperglycemic accelerations. Plan: 1. Uncontrolled type 2 IDDM in the setting of acute illness Overnight Accuchecks noted. Patient on IV solumedrol and PO hydrocortisone which is likely elevating BG as well. Continue Januvia 100mg PO QD, Aspart 8U AC, and Glipizide 10 bid. Increased Lantus to 20U qhs. Patient continued on RISS with accuchecks. Continue LONG-TERM diet. Patient's BG goal in patient is 140-180 and outpatient is 90-130. Hypoglycemic protocol in place. Will continue to monitor closely. 2. Hypothyroidism TSH slightly low (0.3) but T4 wnl. Continue with levothyroxine 100mcg PO QD. Will continue to monitor closely. Will discuss with Dr. Randolph Rodriguez PGY3
[2018-09-14] MEDS: (Novolog) Insulin Aspart, Recombinant 100 u/ml 10 ml vial SC SCH ×7 (07:19→21:58)
[2018-09-14 07:29] LABS: HEMOGLOBIN 8.8 g/dL (11.0-16.0); MEAN CELL VOLUME 75.1 fL (81.0-99.0); MEAN CORPUSCULAR HEMOGLOBIN 22.5 pg (27.0-31.0); MEAN CORPUSCULAR HGB CONC 29.9 g/dL (33.0-37.0); PLATELET COUNT 459 K/uL (130-400); RED CELL DISTRIBUTION WIDTH 19.3 % (11.5-14.5); WHITE BLOOD COUNT 11.8 K/uL (4.8-10.8)
[2018-09-14] MEDS: Fluticasone-Vilanterol 100/25mcg Diskus INH SCH (08:29)
[2018-09-14] MEDS: Sucralfate 1 gm/10 ml Oral Susp UD PO SCH ×2 (08:40→21:57)
[2018-09-14] MEDS: Multivitamin Vitamin B Complex (Nephro-Vite) Tab PO SCH (08:40)
[2018-09-14 08:53] LABS: LYMPH # 0.2 K/uL (1.0-4.3); MONO # 0.4 K/uL (0.0-0.8)
[2018-09-14 08:55] LABS: LYMPHOCYTE 6 % (20-40); MONOCYTE 3 % (0-10); NEUTROPHIL 91 % (50-75); PLATELET ESTIMATE SLIGHTLY INCREASED (NORMAL); TOTAL CELLS COUNTED 100
[2018-09-14 08:56] LABS: ANISOCYTOSIS SLIGHT; BURR CELLS SLIGHT; HYPOCHROMIC MODERATE; OVALOCYTES SLIGHT; POIKILOCYTOSIS SLIGHT; TARGET CELLS SLIGHT; TEARDROP CELLS SLIGHT
[2018-09-14 08:57] LABS: MICROCYTOSIS SLIGHT
[2018-09-14 08:58] LABS: LARGE PLATELETS PRESENT
[2018-09-14] MEDS: MethylPREDNISolone 40 mg Vial IVP SCH ×2 (09:16→21:57)
[2018-09-14] MEDS: diltiaZEM 180 mg/24 Hours CD Cap PO SCH ×2 (11:13→17:05)
[2018-09-14] MEDS: Saccharomyces Boulardi 250 mg Cap PO SCH ×2 (11:14→21:57)
[2018-09-14] MEDS: Potassium Chloride 20 mEq ER Tab PO SCH (11:15)
[2018-09-14] MEDS: Magnesium Oxide 400 mg Tab UD PO SCH ×2 (11:15→17:05)
[2018-09-14] MEDS: Vancomycin Hydrochloride 250 mg Capsule (Oral) PO SCH ×4 (11:16→21:57)
[2018-09-14] MEDS: Pantoprazole 40 mg EC Tab PO SCH (11:27)
--- NOTE | 2018-09-14 13:34 | CP.PCM.PN ---
Subjective - Date & Time of Evaluation Date of Evaluation: 09/14/18 Time of Evaluation: 13:26 - Subjective Subjective: Medicine Note for Dr. Gutierres Patient seen and examined at bedside. Patient had audible wheezing. Patient instructed to sit in chair and use incentive spirometer however, patient states she does not want to. EGD cancelled due to wheezing. Objective - Vital Signs/Intake and Output Vital Signs (last 24 hours): Temp Pulse Resp BP Pulse Ox 98 F 114 H 20 126/66 95 09/14/18 08:00 09/14/18 11:59 09/14/18 08:00 09/14/18 08:00 09/14/18 08:00 Intake and Output: 09/14/18 09/14/18 06:59 18:59 Output Total 350 Balance -350 - Medications Medications: Current Medications Acetaminophen (Tylenol 325mg Tab) 650 mg PO Q6 PRN PRN Reason: Pain, moderate (4-7) Albuterol/Ipratropium (Duoneb 3 Mg/0.5 Mg (3 Ml) Ud) 3 ml INH RQ6 [facility] Colchicine (Colocrys) 0.6 mg PO BID [facility] Last Admin: 09/14/18 11:14 Dose: Not Given Cyclobenzaprine HCl (Flexeril) 5 mg PO TID [facility] Last Admin: 09/14/18 11:14 Dose: Not Given Dextrose (Dextrose 50% Inj) 0 ml IV STAT PRN; Protocol PRN Reason: Hypoglycemia Protocol Dextrose (Glutose 15) 0 gm PO ONCE PRN; Protocol PRN Reason: Hypoglycemia Protocol Diazepam (Valium) 5 mg PO BID [facility] Last Admin: 09/14/18 11:16 Dose: Not Given Dicyclomine HCl (Bentyl) 20 mg PO TID [facility] Last Admin: 09/14/18 11:13 Dose: Not Given Diltiazem HCl (Cardizem Cd) 180 mg PO BID [facility] Last Admin: 09/14/18 11:13 Dose: Not Given Ergocalciferol (Drisdol 50,000 Intl Units Cap) 1 cap PO Q7D [facility] Last Admin: 09/10/18 09:56 Dose: 1 cap Ferrous Gluconate (Fergon) 324 mg PO TID [facility] Last Admin: 09/14/18 11:14 Dose: Not Given Fluticasone/Vilanterol (Breo Ellipta 100-25 Mcg Inh) 1 puff INH RQ24 [facility] Last Admin: 09/14/18 08:29 Dose: Not Given Furosemide (Lasix) 20 mg PO BID [facility] Last Admin: 09/14/18 11:15 Dose: Not Given Gabapentin (Neurontin) 300 mg PO HS [facility] Last Admin: 09/13/18 21:22 Dose: 300 mg Glipizide (Glucotrol) 10 mg PO BID [facility] Last Admin: 09/14/18 11:14 Dose: Not Given Glucagon (Glucagen Diagnostic Kit) 0 mg IM STAT PRN; Protocol PRN Reason: Hypoglycemia Protocol Hydrocortisone (Cortef) 20 mg PO TID [facility] Last Admin: 09/14/18 11:14 Dose: Not Given Insulin Aspart (Novolog) 0 unit SC ACHS [facility] Last Admin: 09/14/18 11:27 Dose: Not Given Insulin Aspart (Novolog) 10 unit SC AC [facility] Insulin Glargine (Lantus) 20 unit SC HS [facility] Levothyroxine Sodium (Synthroid) 100 mcg PO 0630 [facility] Last Admin: 09/14/18 06:21 Dose: Not Given Lisinopril (Zestril) 10 mg PO DAILY [facility] Last Admin: 09/14/18 11:16 Dose: Not Given Magnesium Oxide (Mag-Ox) 400 mg PO BID [facility] Last Admin: 09/14/18 11:15 Dose: Not Given Methylprednisolone (Solu-Medrol) 20 mg IVP Q12H [facility] Last Admin: 09/14/18 09:16 Dose: 20 mg Ondansetron HCl (Zofran Inj) 4 mg IVP Q8 PRN PRN Reason: Nausea/Vomiting Oxycodone/Acetaminophen (Percocet 5/325 Mg Tab) 2 tab PO Q6H PRN PRN Reason: Pain, severe (8-10) Stop: 09/15/18 20:20 Last Admin: 09/13/18 20:51 Dose: 2 tab Pantoprazole Sodium (Protonix Ec Tab) 40 mg PO DAILY [facility] Last Admin: 09/14/18 11:27 Dose: Not Given Potassium Chloride (K-Dur 20 Meq Er Tab) 20 meq PO DAILY [facility] Stop: 09/19/18 10:01 Last Admin: 09/14/18 11:15 Dose: Not Given Rivaroxaban (Xarelto) 20 mg PO DAILY [facility] Last Admin: 09/14/18 11:16 Dose: Not Given Rosuvastatin Calcium (Crestor) 10 mg PO HS [facility] Last Admin: 09/13/18 21:22 Dose: 10 mg Saccharomyces Boulardii (Florastor) 250 mg PO Q12 [facility] Last Admin: 09/14/18 11:14 Dose: Not Given Sertraline HCl (Zoloft) 50 mg PO DAILY [facility] Last Admin: 09/14/18 11:16 Dose: Not Given Sitagliptin Phosphate (Januvia) 100 mg PO DAILY [facility] Last Admin: 09/14/18 11:15 Dose: Not Given Sucralfate (Carafate Oral Susp) 1 gm PO ACBHS [facility] Last Admin: 09/14/18 08:40 Dose: Not Given Trazodone HCl (Desyrel) 50 mg PO HS [facility] Last Admin: 09/13/18 21:22 Dose: 50 mg Vancomycin HCl (Vancocin 250mg Capsule) 250 mg PO QID [facility] Last Admin: 09/14/18 11:16 Dose: Not Given Vitamin B Complex/Vit C/Folic Acid (Nephro-Lavniia) 1 tab PO 0800 [facility] Last Admin: 09/14/18 08:40 Dose: Not Given - Labs Labs: 09/14/18 06:28 09/14/18 06:28 PT 21.0 SECONDS (9.7-12.2) H 09/05/18 16:44 INR 1.9 09/05/18 16:44 APTT 28 SECONDS (21-34) 09/05/18 16:44 - Constitutional Appears: No Acute Distress, Chronically Ill - Head Exam Head Exam: NORMAL INSPECTION, NORMOCEPHALIC - ENT Exam ENT Exam: Mucous Membranes Moist - Respiratory Exam Respiratory Exam: Decreased Breath Sounds, Wheezes - Cardiovascular Exam Cardiovascular Exam: Tachycardia, RRR, +S1, +S2 - GI/Abdominal Exam GI & Abdominal Exam: Soft, Normal Bowel Sounds. absent: Distended, Tenderness - Extremities Exam Extremities Exam: Normal Inspection, Pedal Edema. absent: Tenderness - Neurological Exam Neurological Exam: Alert, Awake, Oriented x3 - Psychiatric Exam Psychiatric exam: Normal Affect, Normal Mood - Skin Skin Exam: Dry, Intact, Normal Color, Warm Assessment and Plan - Assessment and Plan (Free Text) Plan: C.Difficile Fever, SIRS-resolved *Afebrile since admission *Isolation, contact precautions discontinued on 09/12/18 as C dif Ag and Toxin negative from 09/10/18 - ID Consult: Dr. Little --> help appreciated - GI Consult: Dr. Laurent --> help appreciated - CXR: negative for acute pathology - Blood cx: coagulase neg staph - probably contaminated, repeat blood culture from 09/04/18 negative - Urinalysis: negative for infection - Urine cx: negative - C.Diff: positive on 09/02/18 - Ova/parasites: negative - Stool Culture: negative - Stool leukocytes: negative; stool occult negative - Medications: * Vancomycin 250mg PO QID (active since 09/07/18, dc 09/20/18 * d/c Azithromycin 500mg IV Q24 (active from 09/02/18 to 09/04/18 ) * d/c on 09/13/18- Flagyl 500mg IV q8h ( 09/02/18 -09/13/18) * Florastor 250mg PO BID Pancreatic Mass - Surgery consulted, Dr. Bright; help appreciated - Per surgery team, mass appears resectable, however, patient is a not a s urgical candidate at this time due to other conditions/comorbities. performance status of 4 currently would need to be improved to 2 for surgical consideration - CEA: 42.5 - CA19-9: 1980 - CA125: 36.2 - Abdomen/Pelvic CT: Heterogeneous hyperdense pancreatic mass measuring approximately 2.7 x 2.5 cm at the pancreatic body/tail. Ectatic dilated pancreatic duct. Additional cystic heterogeneous focus measuring approximately 15 x 14 mm is noted at the superior aspect of the pancreas. Appearance worrisome for malignant neoplasm. Wall thickening involving the 2nd portion of the duodenum of uncertain significance; considerations include infectious, inflammatory, or malignant etiologies. Correlate clinically and recommend further evaluation with direct visualization if indicated. Small pelvic free fluid. - Endoscopy cancelled due to respiratory status COPD - Continue home medication: Breo - Duonebs Q6h MATIAS, started Solumedrol 20 IVP Q12 KARMA Resolved, will continue to monitor - At admission, BUN 44, Cr 3.2 - Nephrology consulted, Dr. Menendez; help appreciated - Avoid nephrotoxic agents - Possibly due to hypotension, sepsis, or renal hypoperfusion - Renal US: Echogenic renal parenchyma the right kidney. Bilateral cortical thinning. Correlate clinically for medical renal disease. Tachycardia - Likely secondary to infection - Cardiology consulted, Dr. Pineda; help appreciated - Increased Cardizem to 180mg PO BID (from 120mg, per Dr. Pineda) - Will continue to monitor Chronic Diastolic Congestive Heart Failure - Stable - Last echo 2016 showed Grade III reversible restrictive diastolic dysfunction, EF 55% - Lasix 20mg PO BID Hypertension - Home medications: * Lisinopril 10mg PO daily * Cardizem 180mg PO BID Diabetes Mellitus - Accuchecks, Hypoglycemia protocol - HgA1c 9.3 (01/2018); repeat A1c 9.0 - Insulin sliding scale - Continue home medications: Januvia 100 mg PO daily, Glipizide 10mg PO BID, Gabapentin 300mg PO HS - Novolog 10 u SC AC - Lantus 20 units HS - Endocrinology consult. Dr Cam. chu appreciated. Fibromyalgia - Home medication: Diazepam 5mg PO BID - Flexeril 5mg PO TID (Holding parameters- hold if sleeping/sedated, hypotension) - Percocet 5/325mg 2 tab Q6H prn for pain - Gabapentin 300mg PO HS Adrenal Insufficiency - Hydrocortisone 20mg PO TID Hypothyroidism - Continue Synthroid 100mcg PO daily - TSH/Free T4: 9.5/0.30 Hypokalemia -repleted -continue to monitor and replete as needed History of DVT/PE - Continue Xarelto 20mg PO daily Gout - Continue Colchicine Depression - Consulted psychiatry, Dr. Dexter, kimberley appreciated. - Per psychiatry, Started zoloft 50mg po daily (consider tapering up to 100mg), trazodone 50mg po hs -Valium 5mg po bid -overall mood improving Closed fracture of right proximal tibia - Orthopedic surgery consulted, Dr. Hernandez; help appreciated - Per ortho: continue well padded knee immobilizer; non operative; recommends PT/OT, NWB, VTE proph, and to f/u with Dr. Hernandez 1-2 weeks upon d/c Prophylactic Measures - Protonix 40mg PO daily, Probiotics - Xarelto 20mg PO daily - PT/OT - Palliative care consulted to discuss goals of care - Case management consulted for discharge planning to [facility] Disposition: Pending on clinical improvement on respiratory status, will plan to DC back to [facility]. Case discussed and patient seen with Dr. Gutierres, Florencia Alatorre DO, PGY2
[2018-09-14] MEDS: Oxycodone/Acetaminophen 5/325 mg Tab PO PRN ×2 (13:51→22:06)
[2018-09-14] MEDS: Albuterol-Ipratrop 3 mg / 0.5 (3 ml) UD INH SCH ×2 (14:31→19:09)
--- NOTE | 2018-09-14 15:41 | CP.PCM.PN ---
Subjective - Date & Time of Evaluation Date of Evaluation: 09/14/18 Time of Evaluation: 15:40 - Subjective Subjective: Nephrology Consultation Note: Assessment: Stable Acute Kidney Injury (N17.9) likely due to hypotension/sepsis/renal hypoperfusion as also evident by concomitant abnormal AST/ALT: IMPROVING Anemia hyponatremia GPC sepsis hypomagnesemia DM, HTN dCHF, DVT/PE s/p IVC filter, gout, hypothyroidism hyperlipidemia fibromyalgias depression/anxiety COPD Adrenal Insuff C.diff colitis pancreatic mass ? malignancy Plan No acute need for renal replacement therapy at this time. Hypertension control with meds as ordered. Maintain hemodynamics stable. Avoid hypotension. Patient back on acei. Monitor Input/Output, daily weights and renal function with basic metabolic panel increased lasix 20 mg bid will add iron and MVI. pt on weekly vit D supplement lytes as needed. seen by hepato-biliary surgeon and pall care Dose meds/antibiotics for improved GFR. Glycemic control Further work up/management as per primary team Thanks for allowing me to participate in care of your patient. Will follow patient with you. Please call if any Qs. had d/w team Dr Robert Lam Office: [phone] Chief Complaint; fever Reason for consult: Acute Kidney Injury HPI: Pt is a 63 F with hx of diabetes Mellitus ( years), hypertension (years) dCHF, DVT/PE s/p IVC filter, gout, hypothyroidism hyperlipidemia fibromyalgias depression/amxiety COPD presented with complaints of fever and cough, admitted for KARMA and ? COPD exacerbation Denies OTC/herbal meds or NSAIDs No recent iodinated contrast exposure. Noted obvious episodes of low BP (88/46). ROS: Cardiovascular: No chest pain. Pulmonary: c'/o shortness of breath Gastrointestinal: c/o abdominal pain No nausea. No vomiting. Genitourinary: No pain while urinating. Denies blood in urine. All other negative except as mentioned in HPI Physical Examination: General Appearance: comfortable, in no acute respiratory distress, co-operative . overall ill appearing and debilitated Vitals reviewed and noted as below Head; Atraumatic, normocephalic ENT: no ulcers no thrush. Tongue is midline/dry. Oropharynx: no rash or ulcers. EYES: Pupils are equal, round and reactive to light accommodation. Eye muscles and extraocular movement intact. Sclera is anicteric. Neck; supple no lymphadenopathy, no thyromegaly or bruit Lungs: Normal respiratory rate/effort. Breath sounds bilateral equal and with wheeze Heart: Increased rate. s1s2 normal. No rub or gallop. Extremities: 1+ edema. No varicose veins Neurological: Patient is alert, awake and oriented to person, place and time. No focal deficit. Strength bilateral appropriate and equal Skin: Warm and dry. Normal turgor. No rash. Palpitation: Normal elasticity for age Abdomen: Abdomen is soft. Bowel sounds +. There is no abdominal tenderness, no guarding/rigidity no organomegaly Psych: limited insight and normal affect/mood MSK: no joint tenderness or swelling. Digits and nails normal, no deformity. Rt leg in splint : kidney or bladder not palpable Labs/imaging reviewed. Past medical history, past surgical history, family history, social history, allergy reviewed and noted as below Family hx: no hx of CKD. Rest non-contributory Hep B/C neg UA no protein Objective - Vital Signs/Intake and Output Vital Signs (last 24 hours): Temp Pulse Resp BP Pulse Ox 98 F 114 H 20 126/66 95 09/14/18 08:00 09/14/18 11:59 09/14/18 08:00 09/14/18 08:00 09/14/18 08:00 Intake and Output: 09/14/18 09/14/18 06:59 18:59 Intake Total 700 Output Total 350 400 Balance -350 300 - Medications Medications: Current Medications Acetaminophen (Tylenol 325mg Tab) 650 mg PO Q6 PRN PRN Reason: Pain, moderate (4-7) Albuterol/Ipratropium (Duoneb 3 Mg/0.5 Mg (3 Ml) Ud) 3 ml INH RQ6 [facility] Last Admin: 09/14/18 14:31 Dose: 3 ml Colchicine (Colocrys) 0.6 mg PO BID [facility] Last Admin: 09/14/18 11:14 Dose: Not Given Cyclobenzaprine HCl (Flexeril) 5 mg PO TID [facility] Last Admin: 09/14/18 13:51 Dose: 5 mg Dextrose (Dextrose 50% Inj) 0 ml IV STAT PRN; Protocol PRN Reason: Hypoglycemia Protocol Dextrose (Glutose 15) 0 gm PO ONCE PRN; Protocol PRN Reason: Hypoglycemia Protocol Diazepam (Valium) 5 mg PO BID [facility] Last Admin: 09/14/18 11:16 Dose: Not Given Dicyclomine HCl (Bentyl) 20 mg PO TID [facility] Last Admin: 09/14/18 13:51 Dose: 20 mg Diltiazem HCl (Cardizem Cd) 180 mg PO BID [facility] Last Admin: 09/14/18 11:13 Dose: Not Given Ergocalciferol (Drisdol 50,000 Intl Units Cap) 1 cap PO Q7D [facility] Last Admin: 09/10/18 09:56 Dose: 1 cap Ferrous Gluconate (Fergon) 324 mg PO TID [facility] Last Admin: 09/14/18 13:51 Dose: 324 mg Fluticasone/Vilanterol (Breo Ellipta 100-25 Mcg Inh) 1 puff INH RQ24 [facility] Last Admin: 09/14/18 08:29 Dose: Not Given Furosemide (Lasix) 20 mg PO BID [facility] Last Admin: 09/14/18 11:15 Dose: Not Given Gabapentin (Neurontin) 300 mg PO HS [facility] Last Admin: 09/13/18 21:22 Dose: 300 mg Glipizide (Glucotrol) 10 mg PO BID [facility] Last Admin: 09/14/18 11:14 Dose: Not Given Glucagon (Glucagen Diagnostic Kit) 0 mg IM STAT PRN; Protocol PRN Reason: Hypoglycemia Protocol Hydrocortisone (Cortef) 20 mg PO TID [facility] Last Admin: 09/14/18 13:51 Dose: 20 mg Insulin Aspart (Novolog) 0 unit SC ACHS [facility] Last Admin: 09/14/18 11:27 Dose: Not Given Insulin Aspart (Novolog) 12 unit SC AC [facility] Insulin Glargine (Lantus) 24 unit SC HS [facility] Levothyroxine Sodium (Synthroid) 100 mcg PO 0630 [facility] Last Admin: 09/14/18 06:21 Dose: Not Given Lisinopril (Zestril) 10 mg PO DAILY [facility] Last Admin: 09/14/18 11:16 Dose: Not Given Magnesium Oxide (Mag-Ox) 400 mg PO BID [facility] Last Admin: 09/14/18 11:15 Dose: Not Given Methylprednisolone (Solu-Medrol) 20 mg IVP Q12H [facility] Last Admin: 09/14/18 09:16 Dose: 20 mg Ondansetron HCl (Zofran Inj) 4 mg IVP Q8 PRN PRN Reason: Nausea/Vomiting Oxycodone/Acetaminophen (Percocet 5/325 Mg Tab) 2 tab PO Q6H PRN PRN Reason: Pain, severe (8-10) Stop: 09/15/18 20:20 Last Admin: 09/14/18 13:51 Dose: 2 tab Pantoprazole Sodium (Protonix Ec Tab) 40 mg PO DAILY [facility] Last Admin: 09/14/18 11:27 Dose: Not Given Potassium Chloride (K-Dur 20 Meq Er Tab) 20 meq PO DAILY [facility] Stop: 09/19/18 10:01 Last Admin: 09/14/18 11:15 Dose: Not Given Rivaroxaban (Xarelto) 20 mg PO DAILY [facility] Last Admin: 09/14/18 11:16 Dose: Not Given Rosuvastatin Calcium (Crestor) 10 mg PO HS [facility] Last Admin: 09/13/18 21:22 Dose: 10 mg Saccharomyces Boulardii (Florastor) 250 mg PO Q12 [facility] Last Admin: 09/14/18 11:14 Dose: Not Given Sertraline HCl (Zoloft) 50 mg PO DAILY [facility] Last Admin: 09/14/18 11:16 Dose: Not Given Sitagliptin Phosphate (Januvia) 100 mg PO DAILY [facility] Last Admin: 09/14/18 11:15 Dose: Not Given Sucralfate (Carafate Oral Susp) 1 gm PO ACBHS [facility] Last Admin: 09/14/18 08:40 Dose: Not Given Trazodone HCl (Desyrel) 50 mg PO HS [facility] Last Admin: 09/13/18 21:22 Dose: 50 mg Vancomycin HCl (Vancocin 250mg Capsule) 250 mg PO QID [facility] Last Admin: 09/14/18 13:51 Dose: 250 mg Vitamin B Complex/Vit C/Folic Acid (Nephro-Lavinia) 1 tab PO 0800 [facility] Last Admin: 09/14/18 08:40 Dose: Not Given - Labs Labs: 09/14/18 06:28 09/14/18 06:28 PT 21.0 SECONDS (9.7-12.2) H 09/05/18 16:44 INR 1.9 09/05/18 16:44 APTT 28 SECONDS (21-34) 09/05/18 16:44
[2018-09-14] MEDS ORDERED: (Novolog) Insulin Aspart, Recombinant 100 u/ml 10 ml vial SC SCH (18:00)
[2018-09-14] MEDS ORDERED: (Lantus) Insulin Glargine, Recombinant SC SCH ×2 (22:00)
--- NOTE | 2018-09-14 23:11 | PN ---
DATE: 09/14/2018 ENDOCRINOLOGY FOLLOWUP NOTE LOCATION: Room 554. SUBJECTIVE: This is a 63-year-old female with recent uncontrolled type 2 insulin-requiring diabetes, now being followed closely for metabolic management. Her glycemic levels have been fluctuating as noted overnight with the holding of her insulin regimen for a GI procedure, undertaken today as noted. Her glucose levels have ranged from 257 to 293 mg/dL. LABORATORY DATA: Her chemistry showed a BUN of 24, sodium 135, potassium 3.9, chloride 102, CO2 of 27, glucose 309, and creatinine 1. ASSESSMENT: This is a 63-year-old female with uncontrolled and decompensated type 2 insulin-requiring diabetes with extremes of glycemic fluctuations and concomitant variable oral intake with persistent upper abdominal pain and underwent gastrointestinal workup at this time as noted. PLAN OF MANAGEMENT: We will modify once again her basal and bolus insulin regimen to optimize metabolic control. We will increase the NovoLog to 12 units t.i.d. before meals to start today as ordered. We will also titrate her basal insulin with Lantus to be given as 24 units subcutaneous at bedtime daily to start tonight. We will also continue the low-dose NovoLog coverage scale as ordered to obviate hypoglycemia. We will obtain serial chemistries and supplement accordingly as needed. We will follow. Neeru Dickson MD
[2018-09-15] MEDS: Albuterol-Ipratrop 3 mg / 0.5 (3 ml) UD INH SCH ×3 (01:09→13:24)
[2018-09-15] MEDS: Levothyroxine 100 MCG TAB PO SCH (05:57)
[2018-09-15] MEDS: Sucralfate 1 gm/10 ml Oral Susp UD PO SCH ×2 (05:57→06:39)
--- NOTE | 2018-09-15 06:14 | PN ---
DATE: 09/14/2018 LOCATION: 554. SUBJECTIVE: This 63-year-old female seen and examined early in rounds with Dr. Gutierres, with a complaint of some wheezing and mild shortness of breath. The patient was scheduled initially for upper endoscopy today due to subsequent drop of hemoglobin and hematocrit with hypochromic microcytic anemia. However, due to the patient's wheezing and her shortness of breath, the procedure had to be canceled in the meantime and that was discussed at length with Dr. Gutierres as well as the medical staff on the floor. The entire chart is reviewed including but not limited to the most recent lab and radiology study results, current and previous medication list, current and previous medical events. LABORATORY DATA: Today's lab showed white blood cells of 11.8, hemoglobin 8.8, hematocrit 29.3, with low indices highly suggestive of hypochromic microcytic anemia with thrombocytosis of 459. Blood glucose level 257, calcium 8.3, BUN 26 with normal creatinine, albumin 2.9. PHYSICAL EXAMINATION: GENERAL: A 63-year-old female, awake, alert, oriented. VITAL SIGNS: Afebrile with pulse of 108, respiratory rate 20 to 22, blood pressure 130/68. HEENT: Showed pale dry mucous membrane. Nonicteric sclerae. LUNGS: Few scattered crepitation. Decreased air entry at bases with bilateral few wheezing and rales. HEART: Positive S1 and S2 with increased rate. ABDOMEN: Soft. Bowel sounds are present. No mass or organomegaly. No rebound tenderness or guarding. EXTREMITIES: Without significant clubbing, cyanosis or edema. NEUROLOGIC: No reported new neurological deficits, sensory or motor. IMPRESSION: 1. Pancreatic mass, most likely carcinoma of the pancreas. 2. Anemia, hypochromic microcytic. 3. Re-exacerbation of peptic ulcer disease. 4. Re-exacerbation of chronic obstructive pulmonary disease. 5. Abnormal CAT scan of the abdomen and pelvis. 6. Deep venous thrombosis with pulmonary embolus. 7. History of hypertension, severe anxiety syndrome and congestive heart failure. SUGGESTIONS: 1. Agree with your plan. INCOMPLETE DICTATION Cara Piedra MD [facility] # [id number]
[2018-09-15] MEDS: (Novolog) Insulin Aspart, Recombinant 100 u/ml 10 ml vial SC SCH ×5 (06:41→18:05)
--- NOTE | 2018-09-15 07:03 | CP.PCM.PN ---
Subjective - Date & Time of Evaluation Date of Evaluation: 09/15/18 Time of Evaluation: 07:05 - Subjective Subjective: Pgy3 Internal Medicine Resident Endocrinology Progress note for Dr. Dickson Patient seen and examined at bedside. No acute events overnight as per nursing. Patient's EGD cancelled yesterday due to wheezing. Patient on BiPAP this AM and resting comfortably. Continues to complain of diffuse pain secondary to her fi bromyalgia. Denied acute fever, chest pain, cough, abd pain, nausea, vomiting, bowel/bladder complaints. Patient's RLE still in cast. Objective - Vital Signs/Intake and Output Vital Signs (last 24 hours): Temp Pulse Resp BP Pulse Ox 98.3 F 118 H 22 159/84 H 96 09/15/18 00:00 09/15/18 05:40 09/15/18 00:00 09/15/18 00:00 09/15/18 00:00 - Medications Medications: Current Medications Acetaminophen (Tylenol 325mg Tab) 650 mg PO Q6 PRN PRN Reason: Pain, moderate (4-7) Albuterol/Ipratropium (Duoneb 3 Mg/0.5 Mg (3 Ml) Ud) 3 ml INH RQ6 [facility] Last Admin: 09/15/18 01:09 Dose: 3 ml Colchicine (Colocrys) 0.6 mg PO BID [facility] Last Admin: 09/14/18 17:08 Dose: 0.6 mg Cyclobenzaprine HCl (Flexeril) 5 mg PO TID [facility] Last Admin: 09/14/18 17:08 Dose: 5 mg Dextrose (Dextrose 50% Inj) 0 ml IV STAT PRN; Protocol PRN Reason: Hypoglycemia Protocol Dextrose (Glutose 15) 0 gm PO ONCE PRN; Protocol PRN Reason: Hypoglycemia Protocol Diazepam (Valium) 5 mg PO BID [facility] Last Admin: 09/14/18 17:05 Dose: 5 mg Dicyclomine HCl (Bentyl) 20 mg PO TID [facility] Last Admin: 09/14/18 17:09 Dose: 20 mg Diltiazem HCl (Cardizem Cd) 180 mg PO BID [facility] Last Admin: 09/14/18 17:05 Dose: 180 mg Ergocalciferol (Drisdol 50,000 Intl Units Cap) 1 cap PO Q7D [facility] Last Admin: 09/10/18 09:56 Dose: 1 cap Ferrous Gluconate (Fergon) 324 mg PO TID [facility] Last Admin: 09/14/18 17:04 Dose: 324 mg Fluticasone/Vilanterol (Breo Ellipta 100-25 Mcg Inh) 1 puff INH RQ24 [facility] Last Admin: 09/14/18 08:29 Dose: Not Given Furosemide (Lasix) 20 mg PO BID [facility] Last Admin: 09/14/18 17:04 Dose: 20 mg Gabapentin (Neurontin) 300 mg PO HS [facility] Last Admin: 09/14/18 21:57 Dose: 300 mg Glipizide (Glucotrol) 10 mg PO BID [facility] Last Admin: 09/14/18 17:05 Dose: 10 mg Glucagon (Glucagen Diagnostic Kit) 0 mg IM STAT PRN; Protocol PRN Reason: Hypoglycemia Protocol Hydrocortisone (Cortef) 20 mg PO TID [facility] Last Admin: 09/14/18 17:06 Dose: 20 mg Insulin Aspart (Novolog) 0 unit SC ACHS [facility] Last Admin: 09/15/18 06:59 Dose: 2 u Insulin Aspart (Novolog) 12 unit SC AC [facility] Last Admin: 09/15/18 06:41 Dose: 12 unit Insulin Glargine (Lantus) 24 unit SC HS [facility] Last Admin: 09/14/18 21:58 Dose: 24 units Levothyroxine Sodium (Synthroid) 100 mcg PO 0630 [facility] Last Admin: 09/15/18 05:57 Dose: 100 mcg Lisinopril (Zestril) 10 mg PO DAILY [facility] Last Admin: 09/14/18 11:16 Dose: Not Given Magnesium Oxide (Mag-Ox) 400 mg PO BID [facility] Last Admin: 09/14/18 17:05 Dose: 400 mg Methylprednisolone (Solu-Medrol) 20 mg IVP Q12H [facility] Last Admin: 09/14/18 21:57 Dose: 20 mg Ondansetron HCl (Zofran Inj) 4 mg IVP Q8 PRN PRN Reason: Nausea/Vomiting Oxycodone/Acetaminophen (Percocet 5/325 Mg Tab) 2 tab PO Q6H PRN PRN Reason: Pain, severe (8-10) Stop: 09/15/18 20:20 Last Admin: 09/14/18 22:06 Dose: 2 tab Pantoprazole Sodium (Protonix Ec Tab) 40 mg PO DAILY [facility] Last Admin: 09/14/18 11:27 Dose: Not Given Potassium Chloride (K-Dur 20 Meq Er Tab) 20 meq PO DAILY [facility] Stop: 09/19/18 10:01 Last Admin: 09/14/18 11:15 Dose: Not Given Rivaroxaban (Xarelto) 20 mg PO DAILY [facility] Last Admin: 09/14/18 11:16 Dose: Not Given Rosuvastatin Calcium (Crestor) 10 mg PO HS [facility] Last Admin: 09/14/18 21:56 Dose: 10 mg Saccharomyces Boulardii (Florastor) 250 mg PO Q12 [facility] Last Admin: 09/14/18 21:57 Dose: 250 mg Sertraline HCl (Zoloft) 50 mg PO DAILY [facility] Last Admin: 09/14/18 11:16 Dose: Not Given Sitagliptin Phosphate (Januvia) 100 mg PO DAILY [facility] Last Admin: 09/14/18 11:15 Dose: Not Given Sucralfate (Carafate Oral Susp) 1 gm PO ACBHS [facility] Last Admin: 09/15/18 06:39 Dose: 1 gm Trazodone HCl (Desyrel) 50 mg PO HS [facility] Last Admin: 09/14/18 21:56 Dose: 50 mg Vancomycin HCl (Vancocin 250mg Capsule) 250 mg PO QID [facility] Last Admin: 09/14/18 21:57 Dose: 250 mg Vitamin B Complex/Vit C/Folic Acid (Nephro-Lavinia) 1 tab PO 0800 [facility] Last Admin: 09/14/18 08:40 Dose: Not Given - Labs Labs: 09/14/18 06:28 09/14/18 06:28 PT 21.0 SECONDS (9.7-12.2) H 09/05/18 16:44 INR 1.9 09/05/18 16:44 APTT 28 SECONDS (21-34) 09/05/18 16:44 - Additional Findings Additional findings: - Constitutional Appears: Non-toxic, No Acute Distress, Unkempt, Chronically Ill - Head Exam Head Exam: ATRAUMATIC, NORMAL INSPECTION, NORMOCEPHALIC - Eye Exam Eye Exam: Normal appearance. absent: Conjunctival injection, Scleral icterus - ENT Exam ENT Exam: Mucous Membranes Moist - Respiratory Exam Respiratory Exam: Decreased Breath Sounds, Wheezes (diffuse b/l ), NORMAL BREATHING PATTERN. absent: Rales, Rhonchi, Respiratory Distress - Cardiovascular Exam Cardiovascular Exam: +S1, +S2 - GI/Abdominal Exam GI & Abdominal Exam: Soft, Normal Bowel Sounds. absent: Firm, Guarding, Rigid, Tenderness - Extremities Exam Additional comments: RLE in immobile cast - Neurological Exam Neurological Exam: Alert, Awake - Psychiatric Exam Psychiatric exam: Normal Affect, Normal Mood - Skin Skin Exam: Dry, Intact, Warm Assessment and Plan - Assessment and Plan (Free Text) Assessment: 63yo female PMHx COPD, Type 2 IDDM, anxiety, depression, DVT, PE, OA originally presented with fever. Endocrinology consultation requested for hyperglycemic accelerations. Plan: 1. Uncontrolled type 2 IDDM in the setting of acute illness Overnight Accuchecks noted- patient's BG continues to be uncontrolled likely secondary to IV solumedrol and PO hydrocortisone. Will adjust RISS to medium and Aspart 12U ac, Lantus 24u hs, Glipizide 10mg bid, and Januvia 100mg qd. Continue CUSTODIAL diet. Patient's BG goal inpatient is 140-180 and outpatient is 90-130. Hypoglycemic protocol in place. Will continue to monitor closely and adjust as needed. 2. Hypothyroidism TSH slightly low (0.3) but T4 wnl. Continue with levothyroxine 100mcg PO QD. Will continue to monitor closely. Discussed with Dr. Randolph Rodriguez PGY3
[2018-09-15] MEDS: Fluticasone-Vilanterol 100/25mcg Diskus INH SCH (07:24)
[2018-09-15 07:53] LABS: BASO # 0.1 K/uL (0.0-0.2); BASO % 0.8 % (0.0-2.0); HEMOGLOBIN 9.6 g/dL (11.0-16.0); LYMPH # 0.8 K/uL (1.0-4.3); LYMPH % 5.6 % (20.0-40.0); MEAN CELL VOLUME 76.2 fL (81.0-99.0); MEAN CORPUSCULAR HEMOGLOBIN 21.7 pg (27.0-31.0); MEAN CORPUSCULAR HGB CONC 28.5 g/dL (33.0-37.0); MEAN PLATELET VOLUME 8.7 fL (7.2-11.7); MONO # 0.7 K/uL (0.0-0.8); NEUT # 12.5 K/uL (1.8-7.0); NEUT % 88.6 % (50.0-75.0); NRBC % 0.1 % (0.0-2.0); PLATELET COUNT 454 K/uL (130-400); RBC 4.44 Mil/uL (3.80-5.20); RED CELL DISTRIBUTION WIDTH 20.1 % (11.5-14.5); WHITE BLOOD COUNT 14.2 K/uL (4.8-10.8)
[2018-09-15 08:06] LABS: ALB/GLOB RATIO 1.3 (1.0-2.1); ALBUMIN 3.4 g/dL (3.5-5.0); ALT/SGPT 50 U/L (9-52); AST/SGOT 35 U/L (14-36); BLOOD UREA NITROGEN 29 mg/dL (7-17); CALCIUM 8.9 mg/dl (8.6-10.4); GFR NON-AFRICAN AMERICAN > 60
[2018-09-15] MEDS: Multivitamin Vitamin B Complex (Nephro-Vite) Tab PO SCH (08:16)
[2018-09-15 08:39] LABS: LYMPHOCYTE 6 % (20-40); MONOCYTE 2 % (0-10); NEUTROPHIL 92 % (50-75); TOTAL CELLS COUNTED 100
[2018-09-15 08:40] LABS: ANISOCYTOSIS SLIGHT; PLATELET ESTIMATE NORMAL (NORMAL); POLYCHROMIC SLIGHT
[2018-09-15 08:41] LABS: HYPOCHROMIC MODERATE; MICROCYTOSIS SLIGHT
[2018-09-15 08:42] LABS: OVALOCYTES SLIGHT
[2018-09-15] MEDS ORDERED: (Novolog) Insulin Aspart, Recombinant 100 u/ml 10 ml vial SC SCH (09:17)
--- NOTE | 2018-09-15 09:40 | CP.PCM.PN ---
Subjective - Date & Time of Evaluation Date of Evaluation: 09/15/18 Time of Evaluation: 09:35 - Subjective Subjective: Medicine Note for Dr. Gutierres Patient seen and examined at bedside. Patient is very somnolent, however arousable. Patient instructed to sit in chair and use incentive spirometer however, as per patient and nurse she is refusing. Objective - Vital Signs/Intake and Output Vital Signs (last 24 hours): Temp Pulse Resp BP Pulse Ox 98.3 F 92 H 22 159/84 H 96 09/15/18 00:00 09/15/18 07:50 09/15/18 00:00 09/15/18 00:00 09/15/18 00:00 Intake and Output: 09/15/18 09/15/18 06:59 18:59 Output Total 500 Balance -500 - Medications Medications: Current Medications Acetaminophen (Tylenol 325mg Tab) 650 mg PO Q6 PRN PRN Reason: Pain, moderate (4-7) Albuterol/Ipratropium (Duoneb 3 Mg/0.5 Mg (3 Ml) Ud) 3 ml INH RQ6 [facility] Last Admin: 09/15/18 01:09 Dose: 3 ml Colchicine (Colocrys) 0.6 mg PO BID [facility] Last Admin: 09/14/18 17:08 Dose: 0.6 mg Cyclobenzaprine HCl (Flexeril) 5 mg PO TID [facility] Last Admin: 09/14/18 17:08 Dose: 5 mg Dextrose (Dextrose 50% Inj) 0 ml IV STAT PRN; Protocol PRN Reason: Hypoglycemia Protocol Dextrose (Glutose 15) 0 gm PO ONCE PRN; Protocol PRN Reason: Hypoglycemia Protocol Diazepam (Valium) 5 mg PO BID [facility] Last Admin: 09/14/18 17:05 Dose: 5 mg Dicyclomine HCl (Bentyl) 20 mg PO TID [facility] Last Admin: 09/14/18 17:09 Dose: 20 mg Diltiazem HCl (Cardizem Cd) 180 mg PO BID [facility] Last Admin: 09/14/18 17:05 Dose: 180 mg Ergocalciferol (Drisdol 50,000 Intl Units Cap) 1 cap PO Q7D [facility] Last Admin: 09/10/18 09:56 Dose: 1 cap Ferrous Gluconate (Fergon) 324 mg PO TID [facility] Last Admin: 09/14/18 17:04 Dose: 324 mg Fluticasone/Vilanterol (Breo Ellipta 100-25 Mcg Inh) 1 puff INH RQ24 [facility] Last Admin: 09/14/18 08:29 Dose: Not Given Furosemide (Lasix) 20 mg PO BID [facility] Last Admin: 09/14/18 17:04 Dose: 20 mg Gabapentin (Neurontin) 300 mg PO HS [facility] Last Admin: 09/14/18 21:57 Dose: 300 mg Glipizide (Glucotrol) 10 mg PO BID [facility] Last Admin: 09/14/18 17:05 Dose: 10 mg Glucagon (Glucagen Diagnostic Kit) 0 mg IM STAT PRN; Protocol PRN Reason: Hypoglycemia Protocol Hydrocortisone (Cortef) 20 mg PO TID [facility] Last Admin: 09/14/18 17:06 Dose: 20 mg Insulin Aspart (Novolog) 12 unit SC AC [facility] Last Admin: 09/15/18 06:41 Dose: 12 unit Insulin Aspart (Novolog) 0 unit SC ACHS [facility]; Protocol Insulin Glargine (Lantus) 24 unit SC [facility] Last Admin: 09/14/18 21:58 Dose: 24 units Levothyroxine Sodium (Synthroid) 100 mcg PO 0630 [facility] Last Admin: 09/15/18 05:57 Dose: 100 mcg Lisinopril (Zestril) 10 mg PO DAILY [facility] Last Admin: 09/14/18 11:16 Dose: Not Given Magnesium Oxide (Mag-Ox) 400 mg PO BID [facility] Last Admin: 09/14/18 17:05 Dose: 400 mg Methylprednisolone (Solu-Medrol) 20 mg IVP Q12H [facility] Last Admin: 09/14/18 21:57 Dose: 20 mg Ondansetron HCl (Zofran Inj) 4 mg IVP Q8 PRN PRN Reason: Nausea/Vomiting Oxycodone/Acetaminophen (Percocet 5/325 Mg Tab) 2 tab PO Q6H PRN PRN Reason: Pain, severe (8-10) Stop: 09/15/18 20:20 Last Admin: 09/14/18 22:06 Dose: 2 tab Pantoprazole Sodium (Protonix Ec Tab) 40 mg PO DAILY [facility] Last Admin: 09/14/18 11:27 Dose: Not Given Potassium Chloride (K-Dur 20 Meq Er Tab) 20 meq PO DAILY [facility] Stop: 09/19/18 10:01 Last Admin: 09/14/18 11:15 Dose: Not Given Rivaroxaban (Xarelto) 20 mg PO DAILY [facility] Last Admin: 09/14/18 11:16 Dose: Not Given Rosuvastatin Calcium (Crestor) 10 mg PO HS [facility] Last Admin: 09/14/18 21:56 Dose: 10 mg Saccharomyces Boulardii (Florastor) 250 mg PO Q12 [facility] Last Admin: 09/14/18 21:57 Dose: 250 mg Sertraline HCl (Zoloft) 50 mg PO DAILY [facility] Last Admin: 09/14/18 11:16 Dose: Not Given Sitagliptin Phosphate (Januvia) 100 mg PO DAILY [facility] Last Admin: 09/14/18 11:15 Dose: Not Given Sucralfate (Carafate Oral Susp) 1 gm PO ACBHS [facility] Last Admin: 09/15/18 06:39 Dose: 1 gm Trazodone HCl (Desyrel) 50 mg PO HS [facility] Last Admin: 09/14/18 21:56 Dose: 50 mg Vancomycin HCl (Vancocin 250mg Capsule) 250 mg PO QID [facility] Last Admin: 09/14/18 21:57 Dose: 250 mg Vitamin B Complex/Vit C/Folic Acid (Nephro-Lavinia) 1 tab PO 0800 [facility] Last Admin: 09/14/18 08:40 Dose: Not Given - Labs Labs: 09/15/18 07:35 09/15/18 07:35 PT 21.0 SECONDS (9.7-12.2) H 09/05/18 16:44 INR 1.9 09/05/18 16:44 APTT 28 SECONDS (21-34) 09/05/18 16:44 - Additional Findings Additional findings: - Constitutional Appears: No Acute Distress, Chronically Ill - Head Exam Head Exam: NORMAL INSPECTION, NORMOCEPHALIC - ENT Exam ENT Exam: Mucous Membranes Moist - Respiratory Exam Respiratory Exam: Decreased Breath Sounds, Wheezes - Cardiovascular Exam Cardiovascular Exam: Tachycardia, RRR, +S1, +S2 - GI/Abdominal Exam GI & Abdominal Exam: Soft, Normal Bowel Sounds. absent: Distended, Tenderness - Extremities Exam Extremities Exam: Normal Inspection, Pedal Edema. absent: Tenderness - Neurological Exam Neurological Exam: Alert, Awake, Oriented x3 - Psychiatric Exam Psychiatric exam: Normal Affect, Normal Mood - Skin Skin Exam: Dry, Intact, Normal Color, Warm Assessment and Plan - Assessment and Plan (Free Text) Plan: C.Difficile Fever, SIRS-resolved *Afebrile since admission *Isolation, contact precautions discontinued on 09/12/18 as C dif Ag and Toxin negative from 09/10/18 - ID Consult: Dr. Little --> help appreciated - GI Consult: Dr. Laurent --> help appreciated - CXR: negative for acute pathology - Blood cx: coagulase neg staph - probably contaminated, repeat blood culture from 09/04/18 negative - Urinalysis: negative for infection - Urine cx: negative - C.Diff: positive on 09/02/18 - Ova/parasites: negative - Stool Culture: negative - Stool leukocytes: negative; stool occult negative - Medications: * Vancomycin 250mg PO QID (active since 09/07/18, dc 09/20/18 * d/c Azithromycin 500mg IV Q24 (active from 09/02/18 to 09/04/18 ) * d/c on 09/13/18- Flagyl 500mg IV q8h ( 09/02/18 -09/13/18) * Florastor 250mg PO BID Pancreatic Mass - Surgery consulted, Dr. Bright; help appreciated - Per surgery team, mass appears resectable, however, patient is a not a surgical candidate at this time due to other conditions/comorbities. performance status of 4 currently would need to be improved to 2 for surgical consideration - CEA: 42.5 - CA19-9: 1980 - CA125: 36.2 - Abdomen/Pelvic CT: Heterogeneous hyperdense pancreatic mass measuring approximately 2.7 x 2.5 cm at the pancreatic body/tail. Ectatic dilated pancreatic duct. Additional cystic heterogeneous focus measuring approximately 15 x 14 mm is noted at the superior aspect of the pancreas. Appearance worrisome for malignant neoplasm. Wall thickening involving the 2nd portion of the duodenum of uncertain significance; considerations include infectious, inflammatory, or malignant etiologies. Correlate clinically and recommend further evaluation with direct visualization if indicated. Small pelvic free fluid. - Endoscopy cancelled due to respiratory status COPD - Continue home medication: Breo - Duonebs Q6h MATIAS, started Solumedrol 20 IVP Q12 [facility] Resolved, will continue to monitor - At admission, BUN 44, Cr 3.2 - Nephrology consulted, Dr. Menendez; help appreciated - Avoid nephrotoxic agents - Possibly due to hypotension, sepsis, or renal hypoperfusion - Renal US: Echogenic renal parenchyma the right kidney. Bilateral cortical thinning. Correlate clinically for medical renal disease. Tachycardia - Likely secondary to infection - Cardiology consulted, Dr. Pineda; help appreciated - Increased Cardizem to 180mg PO BID (from 120mg, per Dr. Pineda) - Will continue to monitor Chronic Diastolic Congestive Heart Failure - Stable - Last echo 2016 showed Grade III reversible restrictive diastolic dysfunction, EF 55% - Lasix 20mg PO BID Hypertension - Home medications: * Lisinopril 10mg PO daily * Cardizem 180mg PO BID Diabetes Mellitus - Accuchecks, Hypoglycemia protocol - HgA1c 9.3 (01/2018); repeat A1c 9.0 - Insulin sliding scale - Continue home medications: Januvia 100 mg PO daily, Glipizide 10mg PO BID, Gabapentin 300mg PO HS - Novolog 10 u SC AC - Lantus 20 units HS - Endocrinology consult. Dr Cam. chu appreciated. Fibromyalgia - Home medication: Diazepam 5mg PO BID - Flexeril 5mg PO TID (Holding parameters- hold if sleeping/sedated, hypotension) - Percocet 5/325mg 2 tab Q6H prn for pain - Gabapentin 300mg PO HS Adrenal Insufficiency - Hydrocortisone 20mg PO TID Hypothyroidism - Continue Synthroid 100mcg PO daily - TSH/Free T4: 9.5/0.30 Hypokalemia -repleted -continue to monitor and replete as needed History of DVT/PE - Continue Xarelto 20mg PO daily Gout - Continue Colchicine Depression - Consulted psychiatry, Dr. Dexter, recs appreciated. - Per psychiatry, Started zoloft 50mg po daily (consider tapering up to 100mg), trazodone 50mg po hs -Valium 5mg po bid -overall mood improving Closed fracture of right proximal tibia - Orthopedic surgery consulted, Dr. Hernandez; help appreciated - Per ortho: continue well padded knee immobilizer; non operative; recommends PT/OT, NWB, VTE proph, and to f/u with Dr. Hernandez 1-2 weeks upon d/c Prophylactic Measures - Protonix 40mg PO daily, Probiotics - Xarelto 20mg PO daily - PT/OT - Palliative care consulted to discuss goals of care - Case management consulted for discharge planning to [facility] Disposition: Patient is discharged back to [facility]. Case discussed and patient seen with Dr. Gutierres, Florencia Alatorre DO, PGY2
[2018-09-15] MEDS: Saccharomyces Boulardi 250 mg Cap PO SCH (10:15)
[2018-09-15] MEDS: Potassium Chloride 20 mEq ER Tab PO SCH (10:15)
[2018-09-15] MEDS: diltiaZEM 180 mg/24 Hours CD Cap PO SCH ×2 (10:16→18:03)
[2018-09-15] MEDS: Vancomycin Hydrochloride 250 mg Capsule (Oral) PO SCH ×3 (10:16→18:04)
[2018-09-15] MEDS: Magnesium Oxide 400 mg Tab UD PO SCH ×2 (10:16→18:02)
[2018-09-15] MEDS: Pantoprazole 40 mg EC Tab PO SCH (10:17)
[2018-09-15] MEDS: MethylPREDNISolone 40 mg Vial IVP SCH (10:17)
[2018-09-15 10:23] VITALS: RESP 20; O2SAT 95
--- NOTE | 2018-09-15 11:20 | PN ---
DATE: 09/15/2018 LOCATION: 554 SUBJECTIVE: This is a 63-year-old female seen and examined early in rounds without reported significant clinical changes or active bleeding, seen recently by Dr. Little. The patient is still percussion with intermittent period of abdominal pain, postprandial abdominal distention. The entire chart is reviewed including but not limited to the most recent lab and radiology study results, current and previous medication list and current and previous medical events. Most recent lab results show leukocytosis of 14.2, hemoglobin 9.6, hematocrit 33.8 with low indices highly suggestive of hypochromic microcytic anemia with blood glucose level of 321, protein 6, albumin 3.4. PHYSICAL EXAMINATION: GENERAL: A 63-year-old female awake, alert and oriented complaining of generalized abdominal pain. VITAL SIGNS: Afebrile with pulse of 90, respiratory rate 20 to 22, blood pressure 150/82. HEENT: Showed pale, dry mucous membranes. Nonicteric sclerae. LUNGS: Few scattered crepitation. Decreased air entry at bases. HEART: Positive S1 and S2. ABDOMEN: Soft with mild generalized tenderness. No mass. No organomegaly. No rebound tenderness or guarding. EXTREMITIES: Without significant clubbing, cyanosis or edema. No reported new neurological deficits, sensory or motor. IMPRESSION: 1. Pancreatic mass lesion with elevated CA 19-9 highly suggestive of pancreatic carcinoma. 2. Pseudomembranous colitis, recent history, improving clinically. 3. Peptic ulcer disease. 4. Hypochromic microcytic anemia secondary to above. 5. Malnutrition with hypoalbuminemia, hypoproteinemia. 6. Abnormal CAT scan of the abdomen and pelvis. 7. Known history of hypertension, congestive heart failure, severe anxiety syndrome. 8. Reported history of pulmonary embolus with deep venous thrombosis. 9. Elevated CEA level to rule out lower gastrointestinal tract carcinoma. SUGGESTIONS: 1. Agree with your plan. 2. Antireflux measures. 3. Due to reported episodes of wheezing and some shortness of breath, no aggressive GI workup in the meantime. The patient will need CAT scan guided pancreatic mass biopsy versus laparoscopic biopsy to be done by rn medical surgical or . 4. Further recommendations to follow. Alaa Salah-Mehran, MD [facility] # [id number]
--- NOTE | 2018-09-15 15:09 | CP.PCM.PN ---
Subjective - Date & Time of Evaluation Date of Evaluation: 09/15/18 Time of Evaluation: 11:00 - Subjective Subjective: Nephrology Consultation Note: Assessment: Stable Acute Kidney Injury (N17.9) likely due to hypotension/sepsis/renal hypoperfusion as also evident by concomitant abnormal AST/ALT: IMPROVING Anemia hyponatremia GPC sepsis hypomagnesemia DM, HTN dCHF, DVT/PE s/p IVC filter, gout, hypothyroidism hyperlipidemia fibromyalgias depression/anxiety COPD Adrenal Insuff C.diff colitis pancreatic mass ? malignancy Plan No acute need for renal replacement therapy at this time. Hypertension control with meds as ordered. Maintain hemodynamics stable. Avoid hypotension. Patient back on acei. Monitor Input/Output, daily weights and renal function with basic metabolic panel increased lasix 20 mg bid will add iron and MVI. pt on weekly vit D supplement lytes as needed. seen by hepato-biliary surgeon and pall care Dose meds/antibiotics for improved GFR. Glycemic control Further work up/management as per primary team Thanks for allowing me to participate in care of your patient. Will follow patient with you. Please call if any Qs. had d/w team Dr Robert Lam Office: [phone] Chief Complaint; fever Reason for consult: Acute Kidney Injury HPI: Pt is a 63 F with hx of diabetes Mellitus ( years), hypertension (years) dCHF, DVT/PE s/p IVC filter, gout, hypothyroidism hyperlipidemia fibromyalgias depression/amxiety COPD presented with complaints of fever and cough, admitted for KARMA and ? COPD exacerbation Denies OTC/herbal meds or NSAIDs No recent iodinated contrast exposure. Noted obvious episodes of low BP (88/46). ROS: Cardiovascular: No chest pain. Pulmonary: c/o shortness of breath Gastrointestinal: c/o abdominal pain No nausea. No vomiting. Genitourinary: No pain while urinating. Denies blood in urine. All other negative except as mentioned in HPI Physical Examination: General Appearance: comfortable, in no acute respiratory distress, co-operative . overall ill appearing and debilitated Vitals reviewed and noted as below Head; Atraumatic, normocephalic ENT: no ulcers no thrush. Tongue is midline/dry. Oropharynx: no rash or ulcers. EYES: Pupils are equal, round and reactive to light accommodation. Eye muscles and extraocular movement intact. Sclera is anicteric. Neck; supple no lymphadenopathy, no thyromegaly or bruit Lungs: Normal respiratory rate/effort. Breath sounds bilateral equal and with few wheeze Heart: Increased rate. s1s2 normal. No rub or gallop. Extremities: 1+ edema. No varicose veins Neurological: Patient is alert, awake and oriented to person, place and time. No focal deficit. Strength bilateral appropriate and equal Skin: Warm and dry. Normal turgor. No rash. Palpitation: Normal elasticity for age Abdomen: Abdomen is soft. Bowel sounds +. There is no abdominal tenderness, no guarding/rigidity no organomegaly Psych: limited insight and normal affect/mood MSK: no joint tenderness or swelling. Digits and nails normal, no deformity. Rt leg in splint : kidney or bladder not palpable Labs/imaging reviewed. Past medical history, past surgical history, family history, social history, allergy reviewed and noted as below Family hx: no hx of CKD. Rest non-contributory Hep B/C neg UA no protein Objective - Vital Signs/Intake and Output Vital Signs (last 24 hours): Temp Pulse Resp BP Pulse Ox 98.3 F 124 H 20 155/80 H 95 09/15/18 08:00 09/15/18 11:52 09/15/18 08:00 09/15/18 10:16 09/15/18 08:00 Intake and Output: 09/15/18 09/15/18 06:59 18:59 Output Total 500 550 Balance -500 -550 - Medications Medications: Current Medications Acetaminophen (Tylenol 325mg Tab) 650 mg PO Q6 PRN PRN Reason: Pain, moderate (4-7) Albuterol/Ipratropium (Duoneb 3 Mg/0.5 Mg (3 Ml) Ud) 3 ml INH RQ6 [facility] Last Admin: 09/15/18 13:24 Dose: 3 ml Colchicine (Colocrys) 0.6 mg PO BID [facility] Last Admin: 09/15/18 10:15 Dose: 0.6 mg Cyclobenzaprine HCl (Flexeril) 5 mg PO TID [facility] Last Admin: 09/15/18 13:30 Dose: 5 mg Dextrose (Dextrose 50% Inj) 0 ml IV STAT PRN; Protocol PRN Reason: Hypoglycemia Protocol Dextrose (Glutose 15) 0 gm PO ONCE PRN; Protocol PRN Reason: Hypoglycemia Protocol Diazepam (Valium) 5 mg PO BID [facility] Last Admin: 09/15/18 10:15 Dose: 5 mg Dicyclomine HCl (Bentyl) 20 mg PO TID [facility] Last Admin: 09/15/18 13:30 Dose: 20 mg Diltiazem HCl (Cardizem Cd) 180 mg PO BID [facility] Last Admin: 09/15/18 10:16 Dose: 180 mg Ergocalciferol (Drisdol 50,000 Intl Units Cap) 1 cap PO Q7D [facility] Last Admin: 09/10/18 09:56 Dose: 1 cap Ferrous Gluconate (Fergon) 324 mg PO TID [facility] Last Admin: 09/15/18 13:30 Dose: 324 mg Fluticasone/Vilanterol (Breo Ellipta 100-25 Mcg Inh) 1 puff INH RQ24 [facility] Last Admin: 09/15/18 07:24 Dose: Not Given Furosemide (Lasix) 20 mg PO BID [facility] Last Admin: 09/15/18 10:16 Dose: 20 mg Gabapentin (Neurontin) 300 mg PO [facility] Last Admin: 09/14/18 21:57 Dose: 300 mg Glipizide (Glucotrol) 10 mg PO BID [facility] Last Admin: 09/15/18 10:15 Dose: 10 mg Glucagon (Glucagen Diagnostic Kit) 0 mg IM STAT PRN; Protocol PRN Reason: Hypoglycemia Protocol Hydrocortisone (Cortef) 20 mg PO TID [facility] Last Admin: 09/15/18 13:30 Dose: 20 mg Insulin Aspart (Novolog) 12 unit SC AC [facility] Last Admin: 09/15/18 12:30 Dose: 12 unit Insulin Aspart (Novolog) 0 unit SC ACHS [facility]; Protocol Last Admin: 09/15/18 12:30 Dose: 4 units Insulin Glargine (Lantus) 24 unit SC HS [facility] Last Admin: 09/14/18 21:58 Dose: 24 units Levothyroxine Sodium (Synthroid) 100 mcg PO 0630 [facility] Last Admin: 09/15/18 05:57 Dose: 100 mcg Lisinopril (Zestril) 10 mg PO DAILY [facility] Last Admin: 09/15/18 10:17 Dose: 10 mg Magnesium Oxide (Mag-Ox) 400 mg PO BID [facility] Last Admin: 09/15/18 10:16 Dose: 400 mg Ondansetron HCl (Zofran Inj) 4 mg IVP Q8 PRN PRN Reason: Nausea/Vomiting Oxycodone/Acetaminophen (Percocet 5/325 Mg Tab) 2 tab PO Q6H PRN PRN Reason: Pain, severe (8-10) Stop: 09/15/18 20:20 Last Admin: 09/14/18 22:06 Dose: 2 tab Pantoprazole Sodium (Protonix Ec Tab) 40 mg PO DAILY [facility] Last Admin: 09/15/18 10:17 Dose: 40 mg Potassium Chloride (K-Dur 20 Meq Er Tab) 20 meq PO DAILY [facility] Stop: 09/19/18 10:01 Last Admin: 09/15/18 10:15 Dose: 20 meq Rivaroxaban (Xarelto) 20 mg PO DAILY [facility] Last Admin: 09/15/18 10:15 Dose: 20 mg Rosuvastatin Calcium (Crestor) 10 mg PO HS [facility] Last Admin: 09/14/18 21:56 Dose: 10 mg Saccharomyces Boulardii (Florastor) 250 mg PO Q12 [facility] Last Admin: 09/15/18 10:15 Dose: 250 mg Sertraline HCl (Zoloft) 50 mg PO DAILY [facility] Last Admin: 09/15/18 10:16 Dose: 50 mg Sitagliptin Phosphate (Januvia) 100 mg PO DAILY [facility] Last Admin: 09/15/18 10:16 Dose: 100 mg Sucralfate (Carafate Oral Susp) 1 gm PO ACBHS [facility] Last Admin: 09/15/18 06:39 Dose: 1 gm Trazodone HCl (Desyrel) 50 mg PO HS [facility] Last Admin: 09/14/18 21:56 Dose: 50 mg Vancomycin HCl (Vancocin 250mg Capsule) 250 mg PO QID [facility] Last Admin: 09/15/18 13:30 Dose: 250 mg Vitamin B Complex/Vit C/Folic Acid (Nephro-Lavinia) 1 tab PO 0800 [facility] Last Admin: 09/15/18 08:16 Dose: 1 tab - Labs Labs: 09/15/18 07:35 09/15/18 07:35 PT 21.0 SECONDS (9.7-12.2) H 09/05/18 16:44 INR 1.9 09/05/18 16:44 APTT 28 SECONDS (21-34) 09/05/18 16:44
[2018-09-15 17:53] VITALS: PULSE 127; TEMP 98.8
[2018-09-15] MEDS: Oxycodone/Acetaminophen 5/325 mg Tab PO PRN (18:05)
[2018-09-15 18:06] VITALS: BP 143/80
[2018-09-15] MEDS ORDERED: (Lantus) Insulin Glargine, Recombinant SC SCH (22:00)
--- NOTE | 2018-09-15 22:43 | PN ---
DATE: 09/15/2018 ENDOCRINOLOGY FOLLOWUP NOTE LOCATION: Room 554. SUBJECTIVE: This is a 63-year-old female with recent acute exacerbation of COPD, currently on IV steroid therapy as given and is now being followed closely for metabolic management. Her glycemic fluctuations are still noted and continues to have hyperglycemic accelerations as noted overnight. Her glucose levels have ranged from 296 to 314 and 321 mg/dL. It was 416 at bedtime last night. LABORATORY DATA: Her chemistry showed a BUN of 29, sodium 139, potassium 3.9, chloride 104, CO2 of 29, glucose 328, and creatinine 0.9. ASSESSMENT AND PLAN: So at this time, we will modify once again her basal and bolus insulin regimen clearly because of the marked insulin resistance from the intercurrent steroid therapy as given. We will increase and titrate her basal insulin and increase the Lantus to 34 units subcutaneous at bedtime daily to start tonight. We will switch over to a medium dose algorithm using Humalog insulin as given. We will also titrate her prandial insulin with NovoLog to be given as 14 units t.i.d. before meals to start today as ordered. We will titrate incrementally as indicated to optimize metabolic control. We will obtain serial chemistries and supplement accordingly as needed. We will follow and advise accordingly. Neeru Dickson MD
[2018-09-16] MEDS ORDERED: (Novolog) Insulin Aspart, Recombinant 100 u/ml 10 ml vial SC SCH (07:30)
--- NOTE | 2018-09-19 03:20 | CON ---
DATE: 09/04/[address] Piedra to Dr. Angel Gutierres. I was called for GI consultation by the admitting medical team. The patient is seen and fully examined on 09/04/2018 as requested by the admitting medical staff. The entire chart is reviewed including but not limited to most recent lab and radiology study results, current and previous medication list, current and the previous medical events, allergy to medication list as well as all the available current and previous medical records. Case was discussed with the staff at length at the time of my GI consultation and a short handwritten consultation sheet left in the chart at the time of my GI consultation and physical examination on 09/04/2018. This is a 63-year-old female who was admitted to the hospital through the emergency room due to a low-grade fever and a complaint of diffuse abdominal ache and pain, postprandial abdominal distention with dysphagia, poor oral intake and recent change of bowel movement habits as per the patient's statement. No reported active bleeding. PAST MEDICAL HISTORY: Including but not limited to, 1. Bronchial asthma. 2. Cardiac arrhythmias. 3. Hypertension with congestive heart failure. 4. Known history of diabetes mellitus. 5. Fibromyalgia. 6. Known history of deep venous thrombosis. 7. Depression with severe anxiety syndrome. 8. Right hip fracture recently. 9. Known history of hyperlipidemia and hypothyroidism with reported pulmonary embolus, had been on Coumadin before. 10 Status post cholecystectomy with back surgery. 11. Last upper endoscopy done apparently on 11/19/2015 as per record. FAMILY HISTORY: Unknown. SOCIAL HISTORY: Denied any recent history of cigarette smoking or alcohol intake. CURRENT MEDICATIONS: Post-admission medication list reviewed. ALLERGY TO MEDICATION: LIST REVIEWED. LABORATORY DATA: Initial blood workup at the time of the admission showed a normal troponin level but elevated AST of 105, ALT of 129, alkaline phosphatase 139 with low albumin of 3.4, total protein of 6 and total bilirubin of 0.4. Initial value of hemoglobin at the time of the admission was 9 and hematocrit 31.7 with subsequent drop post admission, white blood cells 12.7, BUN 44, creatinine 3.2, blood glucose level 109 at the time of the admission. PHYSICAL EXAMINATION: General: A 63-year-old female, appeared to be awake, alert, oriented, complaining of severe abdominal pain as well as generalized muscle pain all over her body. VITAL SIGNS: The patient has a low-grade temperature with a pulse of 104, respiratory rate 22-24 with a blood pressure of 110/76. HEENT: Shows pale, dry oral mucoid membrane. Nonicteric sclerae. LYMPH NODES: No lymphadenitis or lymphadenopathy. LUNGS: Few scattered crepitation. Decreased air entry at bases bilaterally. HEART: Positive S1 and S2 with increased rate. ABDOMEN: Soft with mild distention with diffuse tenderness all over. Bowel sounds are hypoactive. No mass or organomegaly. No rebound tenderness or guarding. EXTREMITIES: Without significant clubbing or cyanosis, but lower extremity edematous changes with muscle tenderness. NEUROLOGICAL: No reported new neurological deficit, sensory or motor. IMPRESSION: 1. Re-exacerbation of peptic ulcer disease. 2. Anemia with subsequent drop of hemoglobin and hematocrit, to rule out upper versus lower gastrointestinal blood loss. 3. To rule out occult gastrointestinal malignancy. 4. To rule out an early phase of acute pancreatitis. 5. Poorly controlled hyperglycemia. 6. Renal insufficiency with prerenal azotemia. 7. Leukocytosis with low-grade fever of unclear etiology. 8. Multiple past medical history as mentioned above. SUGGESTIONS: 1. Agree with your plan. 2. Blood transfusion to keep hemoglobin 10 g percent. 3. Proton pump inhibitors IV. 4. tab one twice a day. 5. Reglan IV. 6. Flexeril p.o. 7. Cancer markers. Guaiac all the stool daily. 8. Blood transfusion to keep hemoglobin around 10 g percent nephrology international travel consultant on the case. 9. Sectional abdominal and pelvic CAT scan. 10. Endoscopic evaluation of the upper and lower GI tract only when the patient is more stable clinically. 11. Further recommendation to follow. Again, on record, this case was discussed at length with Dr. Gutierres as well as the admitting medical staff at the time of my GI consultation on 09/04/2018. Thank you for letting me participate in your patient's case management. Cara Piedra MD
--- NOTE | 2018-09-21 07:00 | DS ---
HISTORY OF PRESENT ILLNESS: The patient was admitted to the hospital with chief complaints of generalized weakness, fatigue, tiredness, was started on IV antibiotics and treatment for C. difficile colitis. The patient was found to have a pancreatic mass, seen by Dr. Ross . There is possibility of pancreatic cancer; however, the patient is a very poor candidate with general . Angel Gutierres MD
== END 2018-09-15 19:44 | DRG 872 ==
LOC: C.ER 17:15 → OBSVTOIN 19:58 → C.9E 19:58 → C.5S 21:07
PROVIDERS: ADMIT Internal Medicine Pulmonary Disease; ATTEND Internal Medicine Pulmonary Disease
DX: A41.9 Sepsis, unspecified organism (principal); A04.71 Enterocolitis due to Clostridium difficile, recurrent; E27.40 Unspecified adrenocortical insufficiency; E46 Unspecified protein-calorie malnutrition; F33.2 Major depressive disorder, recurrent severe without psychotic features; G82.20 Paraplegia, unspecified; I47.1 Supraventricular tachycardia; J44.1 Chronic obstructive pulmonary disease with (acute) exacerbation; N17.9 Acute kidney failure, unspecified; D63.8 Anemia in other chronic diseases classified elsewhere; E03.9 Hypothyroidism, unspecified; E11.649 Type 2 diabetes mellitus with hypoglycemia without coma; D50.9 Iron deficiency anemia, unspecified; E66.9 Obesity, unspecified; E78.5 Hyperlipidemia, unspecified; E83.42 Hypomagnesemia; E86.0 Dehydration; E87.6 Hypokalemia; F41.1 Generalized anxiety disorder; G47.00 Insomnia, unspecified; I11.0 Hypertensive heart disease with heart failure; I50.9 Heart failure, unspecified; K31.84 Gastroparesis; E11.43 Type 2 diabetes mellitus with diabetic autonomic (poly)neuropathy; M79.7 Fibromyalgia; Z99.81 Dependence on supplemental oxygen

== ENCOUNTER 2018-09-20 11:40 | Inpatient (IN) | payer BC, MEDICARE ==
[2018-09-20 11:41] VITALS: BMI 27.4
[2018-09-20 13:54] LABS: BASO # 0.1 K/uL (0.0-0.2); BASO % 0.8 % (0.0-2.0); EOS # 0.1 K/uL (0.0-0.7); EOS % 0.6 % (0.0-4.0); HEMOGLOBIN 10.2 g/dL (11.0-16.0); LYMPH # 1.6 K/uL (1.0-4.3); LYMPH % 12.1 % (20.0-40.0); MEAN CORPUSCULAR HGB CONC 29.3 g/dL (33.0-37.0); MONO # 0.8 K/uL (0.0-0.8); MONO % 6.3 % (0.0-10.0); NEUT # 10.6 K/uL (1.8-7.0); NEUT % 80.2 % (50.0-75.0); NRBC % 0.2 % (0.0-2.0); RBC 4.62 Mil/uL (3.80-5.20); RED CELL DISTRIBUTION WIDTH 20.9 % (11.5-14.5); WHITE BLOOD COUNT 13.2 K/uL (4.8-10.8)
--- NOTE | 2018-09-20 13:55 | RAD ---
Date of service: 09/20/2018 PROCEDURE: CHEST RADIOGRAPH, 1 VIEW HISTORY: SOB COMPARISON: 09/04/2018. FINDINGS: LUNGS: There are low lung volumes. There is discoid atelectasis in the right mid lung. PLEURA: No pneumothorax or pleural effusion. CARDIOVASCULAR: The heart is normal in size. No aortic atherosclerotic calcifications present. OSSEOUS STRUCTURES: Within normal limits for the patient's age. VISUALIZED UPPER ABDOMEN: Normal. OTHER FINDINGS: None. IMPRESSION: Discoid atelectasis in the right mid lung. Low lung volumes may be related to poor inspiratory effort.
[2018-09-20] MEDS ORDERED: Iodixanol 320 MG/ML 100 ML BOTTLE IV ONE (14:00)
[2018-09-20 14:12] LABS: PROTHROMBIN TIME 22.3 SECONDS (9.7-12.2)
--- NOTE | 2018-09-20 14:21 | C.PDOC ---
History Of Present Illness 63 year old female [facility] with complaint of mid-sternal chest pain . Patient also complains of loss of appetite for the past 12 days, SOB, and cough and right knee pain. Patient has a fracture on her right foot from 2 months ago that has been immobilized with a full cast. Patient is currently unable to walk. Patient has a foot rub on her left leg. Patient is currently recovering from pneumonia. Patient has a PMHx of CHF, CPD, hypertension, diabetes, fibromyalgia, and velez creatic cancer. Patient describes the pain as a 6/10 in severity. Patient has been taking Percocet for the pain. Patient denies nausea, vomiting, diaphoresis, chills, and fever. Time Seen by Provider: 09/20/18 12:45 Chief Complaint (Nursing): Chest Pain History Per: Patient History/Exam Limitations: no limitations Onset/Duration Of Symptoms: Days (12) Current Symptoms Are (Timing): Still Present Pain Scale Rating Of: 6 Quality: "Pain" Associated Symptoms: denies: Nausea, Dyspnea, Diaphoresis Modifying Factors: None Exacerbating Factors: None Alleviating Factors: None Past Medical History Reviewed: Historical Data, Nursing Documentation, Vital Signs Vital Signs: Last Vital Signs Temp 98 F 09/20/18 11:49 Pulse 110 H 09/20/18 12:09 Resp 26 H 09/20/18 11:49 BP 115/55 L 09/20/18 12:09 Pulse Ox 96 09/20/18 11:49 - Medical History PMH: Anemia, Anxiety, Arthritis (R THR /ORIF), Asthma, Cardia Arrhythmia, CHF, COPD, Depression, Diabetes, Deep Vein Thrombosis, Fibromyalgia, Fractures (R HIP), Gall Bladder Disease, HTN, Hypercholesterolemia, Hyperlipidemia, Hypothyroidism, Pulmonary Embolism (on Coumadin W/ IVC filter), Rheumatoid Ar thritis Denies: Chronic Kidney Disease Surgical History: Back Surgery, Cholecystectomy Denies: Appendectomy - [facility] [place] Procedures CENTRAL VENOUS CATHETER PLACEMENT WITH GUIDANCE (09/28/14) ENDOSC POLYPECTOMY OF LG INTEST (09/08/14) ESOPHAGOGASTRODUODENOSCOPY [EGD] W/CLOSED BIOPSY (09/08/14) EXCISION OF STOMACH, ENDO, DIAGN (11/19/15) REPOSITION R UP FEMUR WITH INTRAMED FIX, OPEN APPROACH (03/14/17) SPINAL CANAL EXPLOR NEC (09/08/14) Family History: States: Unknown Family Hx - Social History Hx Tobacco Use: No Hx Alcohol Use: No Hx Substance Use: No - Immunization History Hx Tetanus Toxoid Vaccination: No Hx Influenza Vaccination: No Hx Pneumococcal Vaccination: No Review Of Systems Constitutional: Negative for: Fever, Chills, Weakness Cardiovascular: Positive for: Chest Pain (mid-sternal) Respiratory: Positive for: Cough, Shortness of Breath Gastrointestinal: Negative for: Nausea Musculoskeletal: Positive for: Leg Pain (right knee) Neurological: Negative for: Weakness, Numbness, Dizziness Physical Exam - Physical Exam Appears: Non-toxic Skin: Normal Color, Warm, Dry Head: Atraumatic, Normacephalic Eye(s): bilateral: Normal Inspection, PERRL, EOMI Oral Mucosa: Moist Neck: Normal ROM, Supple Chest: Symmetrical Cardiovascular: Rhythm Regular, Other (tachycardic) Respiratory: Rales Gastrointestinal/Abdominal: Tenderness (epigastric area), No Guarding, No Rebound, Other (obese) Extremity: Capillary Refill (<2 seconds), Other (pitting edema to the left lower extremity, right leg immobilized due to previous fracture, surgical wound healing well on the right lower extremity) Pulses: Left Dorsalis Pedis: Normal, Right Dorsalis Pedis: Normal Neurological/Psych: Oriented x3, Other (awake, alert) ED Course And Treatment - Laboratory Results Result Diagrams: 10/02/18 08:52 10/02/18 08:52 Lab Results: PT 22.3 SECONDS (9.7-12.2) H 09/20/18 13:45 INR 2.0 09/20/18 13:45 APTT 33 SECONDS (21-34) 09/20/18 13:45 ECG: Interpreted By Me, Viewed By Me ECG Rhythm: Sinus Tachycardia Interpretation Of ECG: PAC. Rate From EC O2 Sat by Pulse Oximetry: 96 (in RA) - CT Scan/US CTA chest Other Rad Studies (CT/US): Interpreted By Me, Read By Radiologist CT/US Interpretation: Accession No. : [id number]. Patient Name / ID : STEPHANIE MONROY / [id number]. Exam Date : 09/20/2018 15:24:25 ( Approved ). Study Comment : Sex / Age : F / [id number]. Creator : Iris Loredo. Dictator : Dann Moreno MD. Computer Publisher : Button Inspector : Dann Moreno MD. Approver2 : Report Date : 09/20/2018 15:41:40. My Comment : . Date of service: 09/20/2018. PROCEDURE: CT Chest with contrast (Pulmonary Angiogram). HISTORY: SOB. COMPARISON: None available. TECHNIQUE: Axial computed tomography images were obtained of the chest in the pulmonary arterial phase of enhancement. Coronal and sagittal reformatted images were created and reviewed. Intravenous contrast dose: 100 cc Visipaque 320. Radiation dose: Total exam DLP = 513.82 mGy-cm. This CT exam was performed using one or more of the following dose reduction techniques: Automated exposure control, adjustment of the mA and/or kV according to patient size, and/or use of iterative reconstruction technique. FINDINGS: PULMONARY ARTERIES: The visualized pulmonary trunk, right and left main, lobar, segmental and proximal subsegmental branches of the pulmonary arteries are opacified with no definitive filling defects seen to suggest acute central pulmonary embolus. Pulmonary trunk measures approximately 3.1 cm. AORTA: No acute findings. No thoracic aortic aneurysm. Ascending thoracic aorta measures approximately 2.8 cm and descending thoracic aorta measures approximately 2.1 cm. Minimal aortic atherosclerotic calcification or mural plaque present. LUNGS: There is mild subsegmental atelectatic changes left lung base. There also appears to be some minor concomitant linear scarring as well the left lower and upper lobes-lingular region.. Mild atelectasis and scarring also seen in the posterior aspect of the right upper lobe, middle lobe and superior aspect of the right lower lobe. PLEURAL SPACES: Unremarkable. No effusion or pneumothorax. HEART: Heart size is upper limits of normal/borderline enlarged.. Questionable trace pericardial effusion.. No significant pericardial effusion. LYMPH NODES: Trachea is midline and patent with no large central endoluminal lesions. No significant mediastinal or hilar lymphadenopathy. BONES, CHEST WALL: Chronic anterior compression deformity T6 as well as inferior endplate of T7 segments. OTHER FINDINGS: U cholecystectomy. IMPRESSION: No evidence of acute central pulmonary embolus. There is mild subsegmental atelectatic changes left lung base. There also appears to be some minor concomitant linear scarring as well the left lower and upper lobes- lingular region.. Mild atelectasis and scarring also seen in the posterior aspect of the right upper lobe, middle lobe and superior aspect of the right lower lobe. Medical Decision Making Medical Decision Making: Impression: 63 year old female with complaint of mid-sternal chest pain Plan: CTA chest EKG CXR Venous Doppler of the bilateral lower extremity Labs ordered with troponin, CMP, and blood culture Updates: 1437: Vascular lab called stating the the patient refuses to take the dressing off her right leg. Venous Doppler will only be done on the patient's left leg. 1724: agrees to admit patient. Disposition Counseled Patient/Family Regarding: Studies Performed, Diagnosis - Disposition Disposition: HOSPITALIZED Disposition Time: 17:25 Condition: STABLE - Clinical Impression Clinical Impression: Chest pain - Scribe Statement The provider has reviewed the documentation as recorded by the Scribe (Lula Asif) All medical record entries made by the Scribe were at my direction and personally dictated by me. I have reviewed the chart and agree that the record accurately reflects my personal performance of the history, physical exam, medical decision making, and the department course for this patient. I have also personally directed, reviewed, and agree with the discharge instructions and disposition.
[2018-09-20 14:32] LABS: B-TYPE NATRIURETIC PEPTIDE 203 pg/mL (0-900)
[2018-09-20 14:33] LABS: ALB/GLOB RATIO 1.1 (1.0-2.1); ALBUMIN 3.4 g/dL (3.5-5.0); ALT/SGPT 46 U/L (9-52); AST/SGOT 76 U/L (14-36); BLOOD UREA NITROGEN 11 mg/dL (7-17); CALCIUM 8.9 mg/dl (8.6-10.4); GFR NON-AFRICAN AMERICAN > 60
--- NOTE | 2018-09-20 16:40 | CT ---
Date of service: 09/20/2018 PROCEDURE: CT Chest with contrast (Pulmonary Angiogram) HISTORY: SOB COMPARISON: None available. TECHNIQUE: Axial computed tomography images were obtained of the chest in the pulmonary arterial phase of enhancement. Coronal and sagittal reformatted images were created and reviewed. Intravenous contrast dose: 100 cc Visipaque 320 Radiation dose: Total exam DLP = 513.82 mGy-cm. This CT exam was performed using one or more of the following dose reduction techniques: Automated exposure control, adjustment of the mA and/or kV according to patient size, and/or use of iterative reconstruction technique. FINDINGS: PULMONARY ARTERIES: The visualized pulmonary trunk, right and left main, lobar, segmental and proximal subsegmental branches of the pulmonary arteries are opacified with no definitive filling defects seen to suggest acute central pulmonary embolus. Pulmonary trunk measures approximately 3.1 cm. AORTA: No acute findings. No thoracic aortic aneurysm. Ascending thoracic aorta measures approximately 2.8 cm and descending thoracic aorta measures approximately 2.1 cm. Minimal aortic atherosclerotic calcification or mural plaque present. LUNGS: There is mild subsegmental atelectatic changes left lung base. There also appears to be some minor concomitant linear scarring as well the left lower and upper lobes-lingular region.. Mild atelectasis and scarring also seen in the posterior aspect of the right upper lobe, middle lobe and superior aspect of the right lower lobe. PLEURAL SPACES: Unremarkable. No effusion or pneumothorax. HEART: Heart size is upper limits of normal/borderline enlarged.. Questionable trace pericardial effusion.. No significant pericardial effusion. LYMPH NODES: Trachea is midline and patent with no large central endoluminal lesions. No significant mediastinal or hilar lymphadenopathy. BONES, CHEST WALL: Chronic anterior compression deformity T6 as well as inferior endplate of T7 segments. OTHER FINDINGS: U cholecystectomy. IMPRESSION: No evidence of acute central pulmonary embolus. There is mild subsegmental atelectatic changes left lung base. There also appears to be some minor concomitant linear scarring as well the left lower and upper lobes-lingular region.. Mild atelectasis and scarring also seen in the posterior aspect of the right upper lobe, middle lobe and superior aspect of the right lower lobe.
[2018-09-20] MEDS ORDERED: Albuterol-Ipratrop 3 mg / 0.5 (3 ml) UD ONE (17:38)
[2018-09-20] MEDS: Albuterol-Ipratrop 3 mg / 0.5 (3 ml) UD IH SCH ×3 (17:38→18:00)
[2018-09-20] MEDS ORDERED: Dextrose 50% SYRINGE Inj (50 ml) IV PRN (20:36)
[2018-09-20] MEDS ORDERED: Glucagon Recombinant 1 mg Inj IM PRN (20:36)
[2018-09-20] MEDS ORDERED: Trimethobenzamide 200 mg/2 mL Inj IM PRN (20:43)
[2018-09-20] MEDS: (Novolog) Insulin Aspart, Recombinant 100 u/ml 10 ml vial SC SCH (21:56)
[2018-09-20] MEDS: Oxycodone/Acetaminophen 5/325 mg Tab PO PRN (22:07)
[2018-09-20] MEDS: (Lantus) Insulin Glargine, Recombinant SC SCH (22:08)
[2018-09-20] MEDS: MethylPREDNISolone 40 mg Vial IVP SCH (22:09)
[2018-09-20] MEDS: Vancomycin Hydrochloride 250 mg Capsule (Oral) PO SCH (22:10)
[2018-09-20] MEDS: Saccharomyces Boulardi 250 mg Cap PO SCH (22:13)
[2018-09-20] MEDS: Ergocalciferol 50,000 Intl Units Cap PO SCH (22:29)
[2018-09-20] MEDS: ZINC OXIDE TP SCH (22:56)
[2018-09-20] MEDS: [UNRECOGNIZED DRUG - OTHER] TP SCH (22:56)
[2018-09-20] MEDS: PETROLATUM TP SCH (22:56)
[2018-09-21] MEDS: Albuterol-Ipratrop 3 mg / 0.5 (3 ml) UD INH SCH ×4 (00:08→20:11)
[2018-09-21] MEDS: PETROLATUM TP SCH (06:13)
[2018-09-21] MEDS: [UNRECOGNIZED DRUG - OTHER] TP SCH (06:13)
[2018-09-21] MEDS: ZINC OXIDE TP SCH (06:13)
[2018-09-21] MEDS: (Novolog) Insulin Aspart, Recombinant 100 u/ml 10 ml vial SC SCH ×4 (08:23→21:36)
--- NOTE | 2018-09-21 08:47 | VASCLAB ---
Date of service: 09/20/2018 PROCEDURE: Left Lower Extremity Venous Duplex Exam. HISTORY: swelling PRIORS: None. TECHNIQUE: Left common femoral, femoral, popliteal and posterior tibial, peroneal and great saphenous veins were evaluated. Flow was assessed with color Doppler, compressibility, assessment of phasic flow and augmentation response. Report prepared by NEO Holden, RVT FINDINGS: LEFT: 1. Common Femoral Vein: 1.1. Compressibility - Fully compressible: Thrombus - None : Flow - Phasic: Augmentation -Normal: Reflux - None. 2. Femoral Vein: 2.1. Compressibility - Fully compressible: Thrombus - None: Flow - Phasic: Augmentation -Normal: Reflux - None. 3. Popliteal Vein: 3.1. Compressibility - Fully compressible: Thrombus - None: Flow - Phasic: Augmentation -Normal: Reflux - None. 4. Posterior Tibial Vein: 4.1. Compressibility - Fully compressible: Thrombus - None: Flow - Phasic: Augmentation -Normal: Reflux - None. 5. Peroneal Vein: 5.1. Compressibility - Fully compressible: Thrombus - None: Flow - Phasic: Augmentation -Normal: Reflux - None. 6. Great Saphenous Vein: 6.1. Compressibility - Fully compressible: Thrombus - None: Flow - Phasic: Augmentation - Normal: Reflux - None. OTHER FINDINGS: IMPRESSION: No evidence of deep or superficial vein thrombosis of the left lower extremity with excellent venous flow. Normal valve function noted of the left side. Normal venous flow noted in the right common femoral vein.
[2018-09-21] MEDS ORDERED: Levothyroxine 100 MCG TAB PO SCH (10:00)
[2018-09-21] MEDS: MethylPREDNISolone 40 mg Vial IVP SCH ×2 (10:01→21:36)
[2018-09-21] MEDS: Potassium Chloride 20 mEq ER Tab PO SCH (10:02)
[2018-09-21] MEDS: Magnesium Oxide 400 mg Tab UD PO SCH ×2 (10:02→17:46)
[2018-09-21] MEDS: Saccharomyces Boulardi 250 mg Cap PO SCH ×2 (10:03→21:37)
[2018-09-21] MEDS: diltiaZEM 180 mg/24 Hours CD Cap PO SCH ×2 (10:03→17:46)
[2018-09-21] MEDS: Pantoprazole 40 mg EC Tab PO SCH (10:04)
[2018-09-21] MEDS: Multivitamin Vitamin B Complex (Nephro-Vite) Tab PO SCH (10:05)
[2018-09-21] MEDS: Vancomycin Hydrochloride 250 mg Capsule (Oral) PO SCH ×4 (10:08→21:38)
[2018-09-21] MEDS: Oxycodone/Acetaminophen 5/325 mg Tab PO PRN ×2 (10:23→18:23)
--- NOTE | 2018-09-21 12:57 | CP.PCM.PN ---
Subjective - Date & Time of Evaluation Date of Evaluation: 09/21/18 Time of Evaluation: 12:54 - Subjective Subjective: Medicine Note for Dr. Gutierres's Service Patient was seen and examined at bedside. Patient reports she wants to speak to Palliative Care. She is open to possible home hospice. Objective - Vital Signs/Intake and Output Vital Signs (last 24 hours): Temp Pulse Resp BP Pulse Ox 98.2 F 118 H 20 140/78 94 L 09/21/18 08:00 09/21/18 08:00 09/21/18 08:00 09/21/18 10:05 09/21/18 08:00 Intake and Output: 09/21/18 09/21/18 06:59 18:59 Output Total 50 Balance -50 - Medications Medications: Current Medications Acetaminophen (Tylenol 325mg Tab) 650 mg PO Q4 PRN PRN Reason: Pain, Mild (1-3) Albuterol/Ipratropium (Duoneb 3 Mg/0.5 Mg (3 Ml) Ud) 3 ml INH RQ4 [facility] Last Admin: 09/21/18 03:39 Dose: Not Given Colchicine (Colocrys) 0.6 mg PO BID [facility] Last Admin: 09/21/18 10:08 Dose: 0.6 mg Cyclobenzaprine HCl (Flexeril) 5 mg PO TID [facility] Last Admin: 09/21/18 10:06 Dose: 5 mg Dextrose (Dextrose 50% Inj) 0 ml IV STAT PRN; Protocol PRN Reason: Hypoglycemia Protocol Dextrose (Glutose 15) 0 gm PO ONCE PRN; Protocol PRN Reason: Hypoglycemia Protocol Diazepam (Valium) 5 mg PO BID [facility] Last Admin: 09/21/18 10:06 Dose: 5 mg Dicyclomine HCl (Bentyl) 20 mg PO TID [facility] Last Admin: 09/21/18 10:08 Dose: 20 mg Diltiazem HCl (Cardizem Cd) 180 mg PO BID [facility] Last Admin: 09/21/18 10:03 Dose: 180 mg Ergocalciferol (Drisdol 50,000 Intl Units Cap) 1 cap PO Q7D [facility] Last Admin: 09/20/18 22:29 Dose: Not Given Ferrous Gluconate (Fergon) 324 mg PO TIDCC [facility] Last Admin: 09/21/18 12:01 Dose: 324 mg Fluticasone/Vilanterol (Breo Ellipta 100-25 Mcg Inh) 1 puff INH RQ24 [facility] Furosemide (Lasix) 20 mg PO BID [facility] Last Admin: 09/21/18 10:05 Dose: 20 mg Gabapentin (Neurontin) 300 mg PO HS [facility] Last Admin: 09/20/18 22:09 Dose: 300 mg Glipizide (Glucotrol) 10 mg PO BID [facility] Last Admin: 09/21/18 10:05 Dose: 10 mg Glucagon (Glucagen Diagnostic Kit) 0 mg IM STAT PRN; Protocol PRN Reason: Hypoglycemia Protocol Home Med (Zinc Oxide/Cl-Xylenol/Petrolat [Perishield Ointment]) 1 oin TP QSHIFT [facility] Ceftriaxone Sodium 1 gm/ (Sodium Chloride) 100 mls @ 100 mls/hr IVPB DAILY [facility]; Protocol Last Admin: 09/21/18 10:00 Dose: 100 mls/hr Dextrose (Dextrose 5% In Water 1000 Ml) 1,000 mls @ 0 mls/hr IV .Q0M PRN; Protocol PRN Reason: Hypoglycemia Protocol Insulin Aspart (Novolog) 0 unit SC [facility]; Protocol Last Admin: 09/21/18 11:47 Dose: 5 units Insulin Glargine (Lantus) 24 unit SC [facility] Last Admin: 09/20/18 22:08 Dose: 24 unit Levothyroxine Sodium (Synthroid) 100 mcg PO 0630 [facility] Lisinopril (Zestril) 10 mg PO DAILY [facility] Last Admin: 09/21/18 10:03 Dose: 10 mg Magnesium Oxide (Mag-Ox) 400 mg PO BID [facility] Last Admin: 09/21/18 10:02 Dose: 400 mg Methylprednisolone (Solu-Medrol) 40 mg IVP Q12 [facility] Last Admin: 09/21/18 10:01 Dose: 40 mg Oxycodone/Acetaminophen (Percocet 5/325 Mg Tab) 2 tab PO Q6H PRN PRN Reason: Pain, severe (8-10) Stop: 09/23/18 20:44 Last Admin: 09/21/18 10:23 Dose: 2 tab Pantoprazole Sodium (Protonix Ec Tab) 40 mg PO DAILY [facility] Last Admin: 09/21/18 10:04 Dose: 40 mg Potassium Chloride (K-Dur 20 Meq Er Tab) 20 meq PO DAILY [facility] Last Admin: 09/21/18 10:02 Dose: 20 meq Rivaroxaban (Xarelto) 20 mg PO DAILY [facility] Last Admin: 09/21/18 10:06 Dose: 20 mg Saccharomyces Boulardii (Florastor) 250 mg PO Q12 [facility] Last Admin: 09/21/18 10:03 Dose: 250 mg Sertraline HCl (Zoloft) 50 mg PO DAILY [facility] Last Admin: 09/21/18 10:06 Dose: 50 mg Sitagliptin Phosphate (Januvia) 100 mg PO DAILY [facility] Last Admin: 09/21/18 10:05 Dose: 100 mg Trazodone HCl (Desyrel) 50 mg PO HS [facility] Last Admin: 09/20/18 22:08 Dose: 50 mg Trimethobenzamide HCl (Tigan) 200 mg IM Q8 PRN PRN Reason: Nausea/Vomiting Vancomycin HCl (Vancocin 250mg Capsule) 250 mg PO QID [facility] Stop: 09/21/18 23:00 Last Admin: 09/21/18 10:08 Dose: 250 mg Vitamin B Complex/Vit C/Folic Acid (Nephro-Lavinia) 1 tab PO DAILY [facility] Last Admin: 09/21/18 10:05 Dose: 1 tab - Labs Labs: 09/20/18 13:45 09/20/18 16:52 PT 22.3 SECONDS (9.7-12.2) H 09/20/18 13:45 INR 2.0 09/20/18 13:45 APTT 33 SECONDS (21-34) 09/20/18 13:45 - Constitutional Appears: Cachectic, Chronically Ill - Head Exam Head Exam: NORMAL INSPECTION, NORMOCEPHALIC - Eye Exam Eye Exam: EOMI, Normal appearance, PERRL Pupil Exam: NORMAL ACCOMODATION - ENT Exam ENT Exam: Mucous Membranes Dry - Respiratory Exam Respiratory Exam: Decreased Breath Sounds, Wheezes - Cardiovascular Exam Cardiovascular Exam: Tachycardia - GI/Abdominal Exam GI & Abdominal Exam: Soft, Normal Bowel Sounds. absent: Distended, Tenderness - Extremities Exam Extremities Exam: Normal Inspection. absent: Pedal Edema, Tenderness - Neurological Exam Neurological Exam: Alert, Awake, Oriented x3 - Psychiatric Exam Psychiatric exam: Anxious, Depressed - Skin Skin Exam: Dry, Intact, Normal Color, Warm Assessment and Plan - Assessment and Plan (Free Text) Plan: COPD Exacerbation - Continue home medication: Breo - Duoneshubham Q4h [facility], started Solumedrol 40 IVP Q12 C. Diff During Previous Admission - Will complete course of Vancomycin today - Repeat Cdiff negative Pancreatic Mass - Surgery consulted, Dr. Bright; help appreciated * mass appears resectable, however, patient is a not a surgical candidate at this time due to other conditions/comorbities. performance status of 4 currently would need to be improved to 2 for surgical consideration - CEA: 42.5 - CA19-9: 1980 - CA125: 36.2 - Abdomen/Pelvic CT: Heterogeneous hyperdense pancreatic mass measuring approximately 2.7 x 2.5 cm at the pancreatic body/tail. Ectatic dilated pancreatic duct. Additional cystic heterogeneous focus measuring approximately 15 x 14 mm is noted at the superior aspect of the pancreas. Appearance worrisome for malignant neoplasm. Wall thickening involving the 2nd portion of the duodenum of uncertain significance; considerations include infectious, inflammatory, or malignant etiologies. Correlate clinically and recommend further evaluation with direct visualization if indicated. Small pelvic free fluid. Tachycardia - Likely secondary to infection - Cardiology consulted, Dr. Pineda; help appreciated - Increased Cardizem to 180mg PO BID (from 120mg, per Dr. Pineda) - Will continue to monitor Chronic Diastolic Congestive Heart Failure - Stable - Last echo 2016 showed Grade III reversible restrictive diastolic dysfunction, EF 55% - Lasix 20mg PO BID Hypertension - Home medications: * Lisinopril 10mg PO daily * Cardizem 180mg PO BID Diabetes Mellitus - Accuchecks, Hypoglycemia protocol - HgA1c 9.3 (01/2018); repeat A1c 9.0 - Insulin sliding scale - medium - Continue home medications: Januvia 100 mg PO daily, Glipizide 10mg PO BID, Gabapentin 300mg PO HS - Novolog 10 u SC AC - Lantus 20 units HS - Endocrinology consult. Dr Cam. chu appreciated. Fibromyalgia - Home medication: Diazepam 5mg PO BID - Flexeril 5mg PO TID (Holding parameters- hold if sleeping/sedated, hypotension) - Percocet 5/325mg 2 tab Q6H prn for pain - Gabapentin 300mg PO HS Adrenal Insufficiency - Solumedrol 40mg Q12H Hypothyroidism - Continue Synthroid 100mcg PO daily - TSH/Free T4: 9.5/0.30 Hypokalemia -repleted -continue to monitor and replete as needed History of DVT/PE - Continue Xarelto 20mg PO daily Gout - Continue Colchicine Depression - Consulted psychiatry, Dr. Dexter, recs appreciated. - Per psychiatry, Started zoloft 50mg po daily (consider tapering up to 100mg), trazodone 50mg po hs - Valium 5mg po bid Closed fracture of right proximal tibia - Orthopedic surgery consulted, Dr. Hernandez; help appreciated - Per ortho: continue well padded knee immobilizer; non operative; recommends PT/OT, NWB, VTE proph, and to f/u with Dr. Hernandez 1-2 weeks upon d/c Prophylactic Measures - Protonix 40mg PO daily, Probiotics - Xarelto 20mg PO daily - PT/OT - Palliative care consulted to discuss goals of care - Case management consulted for discharge planning to [facility] Disposition: Palliative consulted for code status and possible home hospice evaluation. DW Dr. Gutierres, Florencia Alatorre DO, PGY2
[2018-09-21] MEDS ORDERED: [UNRECOGNIZED DRUG - OTHER] TP SCH (14:00)
[2018-09-21] MEDS ORDERED: ZINC OXIDE TP SCH (14:00)
[2018-09-21] MEDS ORDERED: PETROLATUM TP SCH (14:00)
--- NOTE | 2018-09-21 16:16 | CP.PCM.PCO ---
Physician Communication Note - Physician Communication Note Physician Communication Note: Family meting with tomorrow at 3 30 pm
--- NOTE | 2018-09-21 18:59 | CARD ---
APPROVED REPORT Date of service: 09/20/2018 EKG Measurement Heart [id number] <Conclusion> Sinus tachycardia with premature atrial complexes Otherwise normal ECG
[2018-09-21 21:15] LABS: CK-MB 0.46 ng/mL (0.0-3.38)
[2018-09-21] MEDS: (Lantus) Insulin Glargine, Recombinant SC SCH (21:36)
[2018-09-22] MEDS: Albuterol-Ipratrop 3 mg / 0.5 (3 ml) UD INH SCH ×6 (00:30→19:22)
[2018-09-22] MEDS: (Novolog) Insulin Aspart, Recombinant 100 u/ml 10 ml vial SC SCH ×5 (02:37→22:07)
[2018-09-22] MEDS: Levothyroxine 100 MCG TAB PO SCH (05:33)
[2018-09-22 07:13] LABS: BASO # 0.1 K/uL (0.0-0.2); BASO % 0.5 % (0.0-2.0); EOS # 0.1 K/uL (0.0-0.7); HEMOGLOBIN 9.2 g/dL (11.0-16.0); LYMPH # 0.7 K/uL (1.0-4.3); LYMPH % 6.4 % (20.0-40.0); MEAN CELL VOLUME 76.3 fL (81.0-99.0); MEAN CORPUSCULAR HEMOGLOBIN 22.3 pg (27.0-31.0); MEAN CORPUSCULAR HGB CONC 29.2 g/dL (33.0-37.0); MEAN PLATELET VOLUME 8.8 fL (7.2-11.7); MONO # 0.6 K/uL (0.0-0.8); MONO % 4.9 % (0.0-10.0); NEUT # 9.8 K/uL (1.8-7.0); NEUT % 87.2 % (50.0-75.0); PLATELET COUNT 350 K/uL (130-400); RBC 4.14 Mil/uL (3.80-5.20); RED CELL DISTRIBUTION WIDTH 20.7 % (11.5-14.5); WHITE BLOOD COUNT 11.3 K/uL (4.8-10.8)
[2018-09-22 07:31] LABS: ALB/GLOB RATIO 1.2 (1.0-2.1); ALBUMIN 3.3 g/dL (3.5-5.0); ALT/SGPT 63 U/L (9-52); AST/SGOT 52 U/L (14-36); BLOOD UREA NITROGEN 17 mg/dL (7-17); CALCIUM 8.7 mg/dl (8.6-10.4); GFR NON-AFRICAN AMERICAN 50
[2018-09-22 09:23] LABS: ANISOCYTOSIS SLIGHT; BANDS 1 % (0-2); HYPOCHROMIC SLIGHT; LYMPHOCYTE 4 % (20-40); MONOCYTE 4 % (0-10); NEUTROPHIL 91 % (50-75); OVALOCYTES SLIGHT; PLATELET ESTIMATE NORMAL (NORMAL); POIKILOCYTOSIS SLIGHT; TOTAL CELLS COUNTED 100
[2018-09-22 09:24] LABS: MICROCYTOSIS SLIGHT; TARGET CELLS SLIGHT; TEARDROP CELLS SLIGHT
--- NOTE | 2018-09-22 09:36 | CP.PCM.PN ---
Subjective - Date & Time of Evaluation Date of Evaluation: 09/22/18 Time of Evaluation: 09:34 - Subjective Subjective: Medicine Note for Dr. Gutierres's Service Patient was seen and examined at bedside. Patient is very solement, today we have a family meeting with Palliative Care 3:30pm. Objective - Vital Signs/Intake and Output Vital Signs (last 24 hours): Temp Pulse Resp BP Pulse Ox 97.9 F 102 H 20 124/72 95 09/22/18 08:18 09/22/18 08:23 09/22/18 08:18 09/22/18 08:18 09/22/18 08:32 - Medications Medications: Current Medications Acetaminophen (Tylenol 325mg Tab) 650 mg PO Q4 PRN PRN Reason: Pain, Mild (1-3) Albuterol/Ipratropium (Duoneb 3 Mg/0.5 Mg (3 Ml) Ud) 3 ml INH RQ4 [facility] Last Admin: 09/22/18 07:29 Dose: 3 ml Colchicine (Colocrys) 0.6 mg PO BID [facility] Last Admin: 09/21/18 19:00 Dose: Not Given Cyclobenzaprine HCl (Flexeril) 5 mg PO TID [facility] Last Admin: 09/21/18 17:45 Dose: 5 mg Dextrose (Dextrose 50% Inj) 0 ml IV STAT PRN; Protocol PRN Reason: Hypoglycemia Protocol Dextrose (Glutose 15) 0 gm PO ONCE PRN; Protocol PRN Reason: Hypoglycemia Protocol Diazepam (Valium) 5 mg PO BID [facility] Last Admin: 09/21/18 17:46 Dose: 5 mg Dicyclomine HCl (Bentyl) 20 mg PO TID [facility] Last Admin: 09/21/18 19:00 Dose: Not Given Diltiazem HCl (Cardizem Cd) 180 mg PO BID [facility] Last Admin: 09/21/18 17:46 Dose: 180 mg Ergocalciferol (Drisdol 50,000 Intl Units Cap) 1 cap PO Q7D [facility] Last Admin: 09/20/18 22:29 Dose: Not Given Ferrous Gluconate (Fergon) 324 mg PO TIDCC [facility] Last Admin: 09/21/18 17:45 Dose: 324 mg Fluticasone/Vilanterol (Breo Ellipta 100-25 Mcg Inh) 1 puff INH RQ24 [facility] Furosemide (Lasix) 20 mg PO BID [facility] Last Admin: 09/21/18 17:47 Dose: 20 mg Gabapentin (Neurontin) 300 mg PO HS [facility] Last Admin: 09/21/18 21:36 Dose: 300 mg Glipizide (Glucotrol) 10 mg PO BID [facility] Last Admin: 09/21/18 17:50 Dose: 10 mg Glucagon (Glucagen Diagnostic Kit) 0 mg IM STAT PRN; Protocol PRN Reason: Hypoglycemia Protocol Home Med (Zinc Oxide/Cl-Xylenol/Petrolat [Perishield Ointment]) 1 oin TP QSHIFT [facility] Ceftriaxone Sodium 1 gm/ (Sodium Chloride) 100 mls @ 100 mls/hr IVPB DAILY [facility]; Protocol Last Admin: 09/21/18 10:00 Dose: 100 mls/hr Dextrose (Dextrose 5% In Water 1000 Ml) 1,000 mls @ 0 mls/hr IV .Q0M PRN; Protocol PRN Reason: Hypoglycemia Protocol Insulin Aspart (Novolog) 0 unit SC ACHS [facility]; Protocol Last Admin: 09/22/18 02:37 Dose: 4 units Insulin Aspart (Novolog) 10 unit SC AC [facility] Insulin Glargine (Lantus) 24 unit SC HS [facility] Last Admin: 09/21/18 21:36 Dose: 24 unit Levothyroxine Sodium (Synthroid) 100 mcg PO 0630 [facility] Last Admin: 09/22/18 05:33 Dose: 100 mcg Lisinopril (Zestril) 10 mg PO DAILY [facility] Last Admin: 09/21/18 10:03 Dose: 10 mg Magnesium Oxide (Mag-Ox) 400 mg PO BID [facility] Last Admin: 09/21/18 17:46 Dose: 400 mg Methylprednisolone (Solu-Medrol) 40 mg IVP Q12 [facility] Last Admin: 09/21/18 21:36 Dose: 40 mg Oxycodone/Acetaminophen (Percocet 5/325 Mg Tab) 2 tab PO Q6H PRN PRN Reason: Pain, severe (8-10) Stop: 09/23/18 20:44 Last Admin: 09/21/18 18:23 Dose: 2 tab Pantoprazole Sodium (Protonix Ec Tab) 40 mg PO DAILY [facility] Last Admin: 09/21/18 10:04 Dose: 40 mg Potassium Chloride (K-Dur 20 Meq Er Tab) 20 meq PO DAILY [facility] Last Admin: 09/21/18 10:02 Dose: 20 meq Rivaroxaban (Xarelto) 20 mg PO DAILY [facility] Last Admin: 09/21/18 10:06 Dose: 20 mg Saccharomyces Boulardii (Florastor) 250 mg PO Q12 [facility] Last Admin: 09/21/18 21:37 Dose: 250 mg Sertraline HCl (Zoloft) 50 mg PO DAILY [facility] Last Admin: 09/21/18 10:06 Dose: 50 mg Sitagliptin Phosphate (Januvia) 100 mg PO DAILY [facility] Last Admin: 09/21/18 10:05 Dose: 100 mg Trazodone HCl (Desyrel) 50 mg PO HS [facility] Last Admin: 09/21/18 21:36 Dose: 50 mg Trimethobenzamide HCl (Tigan) 200 mg IM Q8 PRN PRN Reason: Nausea/Vomiting Vitamin B Complex/Vit C/Folic Acid (Nephro-Lavinia) 1 tab PO DAILY [facility] Last Admin: 09/21/18 10:05 Dose: 1 tab - Labs Labs: 09/22/18 06:48 09/22/18 06:48 PT 22.3 SECONDS (9.7-12.2) H 09/20/18 13:45 INR 2.0 09/20/18 13:45 APTT 33 SECONDS (21-34) 09/20/18 13:45 - Additional Findings Additional findings: - Constitutional Appears: Cachectic, Chronically Ill - Head Exam Head Exam: NORMAL INSPECTION, NORMOCEPHALIC - Eye Exam Eye Exam: EOMI, Normal appearance, PERRL Pupil Exam: NORMAL ACCOMODATION - ENT Exam ENT Exam: Mucous Membranes Dry - Respiratory Exam Respiratory Exam: Decreased Breath Sounds, Wheezes - Cardiovascular Exam Cardiovascular Exam: Tachycardia - GI/Abdominal Exam GI & Abdominal Exam: Soft, Normal Bowel Sounds. absent: Distended, Tenderness - Extremities Exam Extremities Exam: Normal Inspection. absent: Pedal Edema, Tenderness - Neurological Exam Neurological Exam: Alert, Awake, Oriented x3 - Psychiatric Exam Psychiatric exam: Anxious, Depressed - Skin Skin Exam: Dry, Intact, Normal Color, Warm Assessment and Plan - Assessment and Plan (Free Text) Plan: COPD Exacerbation - Continue home medication: Breo - Duonebs Q4h [facility], started Solumedrol 40 IVP Q12 C. Diff During Previous Admission - Complete course of Vancomycin yesterday - Repeat Cdiff negative Pancreatic Mass - Surgery consulted, Dr. Bright; help appreciated * mass appears resectable, however, patient is a not a surgical candidate at this time due to other conditions/comorbities. performance status of 4 currently would need to be improved to 2 for surgical consideration - CEA: 42.5 - CA19-9: 1980 - CA125: 36.2 - Abdomen/Pelvic CT: Heterogeneous hyperdense pancreatic mass measuring approximately 2.7 x 2.5 cm at the pancreatic body/tail. Ectatic dilated pancreatic duct. Additional cystic heterogeneous focus measuring approximately 1 5 x 14 mm is noted at the superior aspect of the pancreas. Appearance worrisome for malignant neoplasm. Wall thickening involving the 2nd portion of the duodenum of uncertain significance; considerations include infectious, inflammatory, or malignant etiologies. Correlate clinically and recommend fu rther evaluation with direct visualization if indicated. Small pelvic free fluid. Tachycardia - Likely secondary to infection - Cardiology consulted, Dr. Pineda; help appreciated - Increased Cardizem to 180mg PO BID (from 120mg, per Dr. Pineda) - Will continue to monitor Chronic Diastolic Congestive Heart Failure - Stable - Last echo 2016 showed Grade III reversible restrictive diastolic dysfunction, EF 55% - Lasix 20mg PO BID Hypertension - Home medications: * Lisinopril 10mg PO daily * Cardizem 180mg PO BID Diabetes Mellitus - Accuchecks, Hypoglycemia protocol - HgA1c 9.3 (01/2018); repeat A1c 9.0 - Insulin sliding scale - medium - Continue home medications: Januvia 100 mg PO daily, Glipizide 10mg PO BID, Gabapentin 300mg PO HS - Novolog 10 u SC AC - Lantus 20 units HS - Endocrinology consult. Dr Cam. chu appreciated. Fibromyalgia - Home medication: Diazepam 5mg PO BID - Flexeril 5mg PO TID (Holding parameters- hold if sleeping/sedated, hypotension ) - Percocet 5/325mg 2 tab Q6H prn for pain - Gabapentin 300mg PO HS Adrenal Insufficiency - Solumedrol 40mg Q12H Hypothyroidism - Continue Synthroid 100mcg PO daily - TSH/Free T4: 9.5/0.30 Hypokalemia -repleted -continue to monitor and replete as needed History of DVT/PE - Continue Xarelto 20mg PO daily Gout - Continue Colchicine Depression - Consulted psychiatry, Dr. Dexter, recs appreciated. - Per psychiatry, Started zoloft 50mg po daily (consider tapering up to 100mg), trazodone 50mg po hs - Valium 5mg po bid Closed fracture of right proximal tibia - Orthopedic surgery consulted, Dr. Hernandez; help appreciated - Per ortho: continue well padded knee immobilizer; non operative; recommends PT/OT, NWB, VTE proph, and to f/u with Dr. Hernandez 1-2 weeks upon d/c Prophylactic Measures - Protonix 40mg PO daily, Probiotics - Xarelto 20mg PO daily - PT/OT - Palliative care consulted to discuss goals of care - Case management consulted for discharge planning to [facility] Disposition: Palliative consulted for code status and possible home hospice evaluation, family meeting today 3:30pm. DW Dr. Gutierres, Florencia Alatorre DO, PGY2
[2018-09-22] MEDS: Magnesium Oxide 400 mg Tab UD PO SCH ×2 (10:01→17:43)
[2018-09-22] MEDS: diltiaZEM 180 mg/24 Hours CD Cap PO SCH ×2 (10:02→17:43)
[2018-09-22] MEDS: Multivitamin Vitamin B Complex (Nephro-Vite) Tab PO SCH (10:02)
[2018-09-22] MEDS: MethylPREDNISolone 40 mg Vial IVP SCH (10:03)
[2018-09-22] MEDS: Pantoprazole 40 mg EC Tab PO SCH (10:03)
[2018-09-22] MEDS: Saccharomyces Boulardi 250 mg Cap PO SCH ×2 (10:04→22:07)
[2018-09-22] MEDS: Potassium Chloride 20 mEq ER Tab PO SCH (10:05)
--- NOTE | 2018-09-22 14:08 | CP.PCM.PN ---
Subjective - Date & Time of Evaluation Date of Evaluation: 09/22/18 Time of Evaluation: 10:00 - Subjective Subjective: Patient examined in bed in no acute distress, has no complains of pain. Family meeting scheduled for today to discuss goals of care in regards to diagnosis of pancreatic cancer. Patient is aware of her diagnosis and voiced in the past that she would not want agressive interventions if her condition should get worse. On this admission, patient is exploring her options regarding possible resection of tumor and Oncology consult. Patient was seen by the surgeon where surgical intervention was consider too risky given patient's multiple coomorbities. Patient was advised to loss weight and to participate with PT with hope that her overall condition will improve before sshe is reconsidered for the Sx. However, patient had no made progress since last admission. She has been refusing PT and her weight remains the same. Option of hospice was introduced. Objective - Vital Signs/Intake and Output Vital Signs (last 24 hours): Temp Pulse Resp BP Pulse Ox 97.9 F 136 H 20 128/76 95 09/22/18 08:18 09/22/18 12:26 09/22/18 08:18 09/22/18 10:02 09/22/18 12:48 - Medications Medications: Current Medications Acetaminophen (Tylenol 325mg Tab) 650 mg PO Q4 PRN PRN Reason: Pain, Mild (1-3) Albuterol/Ipratropium (Duoneb 3 Mg/0.5 Mg (3 Ml) Ud) 3 ml INH RQ4 [facility] Last Admin: 09/22/18 10:59 Dose: 3 ml Colchicine (Colocrys) 0.6 mg PO BID [facility] Last Admin: 09/22/18 10:02 Dose: 0.6 mg Cyclobenzaprine HCl (Flexeril) 5 mg PO TID [facility] Last Admin: 09/22/18 10:01 Dose: 5 mg Dextrose (Dextrose 50% Inj) 0 ml IV STAT PRN; Protocol PRN Reason: Hypoglycemia Protocol Dextrose (Glutose 15) 0 gm PO ONCE PRN; Protocol PRN Reason: Hypoglycemia Protocol Diazepam (Valium) 5 mg PO BID [facility] Last Admin: 09/22/18 10:02 Dose: 5 mg Dicyclomine HCl (Bentyl) 20 mg PO TID [facility] Last Admin: 09/22/18 10:01 Dose: 20 mg Diltiazem HCl (Cardizem Cd) 180 mg PO BID [facility] Last Admin: 09/22/18 10:02 Dose: 180 mg Ergocalciferol (Drisdol 50,000 Intl Units Cap) 1 cap PO Q7D [facility] Last Admin: 09/20/18 22:29 Dose: Not Given Ferrous Gluconate (Fergon) 324 mg PO TIDCC [facility] Last Admin: 09/22/18 10:01 Dose: 324 mg Fluticasone/Vilanterol (Breo Ellipta 100-25 Mcg Inh) 1 puff INH RQ24 [facility] Furosemide (Lasix) 20 mg PO BID [facility] Last Admin: 09/22/18 10:02 Dose: 20 mg Gabapentin (Neurontin) 300 mg PO HS [facility] Last Admin: 09/21/18 21:36 Dose: 300 mg Glipizide (Glucotrol) 10 mg PO BID [facility] Last Admin: 09/22/18 10:01 Dose: 10 mg Glucagon (Glucagen Diagnostic Kit) 0 mg IM STAT PRN; Protocol PRN Reason: Hypoglycemia Protocol Home Med (Zinc Oxide/Cl-Xylenol/Petrolat [Perishield Ointment]) 1 oin TP QSHIFT [facility] Ceftriaxone Sodium 1 gm/ (Sodium Chloride) 100 mls @ 100 mls/hr IVPB DAILY [facility]; Protocol Last Admin: 09/22/18 10:03 Dose: 100 mls/hr Dextrose (Dextrose 5% In Water 1000 Ml) 1,000 mls @ 0 mls/hr IV .Q0M PRN; Protocol PRN Reason: Hypoglycemia Protocol Insulin Aspart (Novolog) 0 unit SC ACHS [facility]; Protocol Last Admin: 09/22/18 11:51 Dose: 10 units Insulin Aspart (Novolog) 10 unit SC AC [facility] Insulin Glargine (Lantus) 24 unit SC HS [facility] Last Admin: 09/21/18 21:36 Dose: 24 unit Levothyroxine Sodium (Synthroid) 100 mcg PO 0630 [facility] Last Admin: 09/22/18 05:33 Dose: 100 mcg Lisinopril (Zestril) 10 mg PO DAILY [facility] Last Admin: 09/22/18 10:01 Dose: 10 mg Magnesium Oxide (Mag-Ox) 400 mg PO BID [facility] Last Admin: 09/22/18 10:01 Dose: 400 mg Methylprednisolone (Solu-Medrol) 40 mg IVP Q12 [facility] Last Admin: 09/22/18 10:03 Dose: 40 mg Oxycodone/Acetaminophen (Percocet 5/325 Mg Tab) 2 tab PO Q6H PRN PRN Reason: Pain, severe (8-10) Stop: 09/23/18 20:44 Last Admin: 09/21/18 18:23 Dose: 2 tab Pantoprazole Sodium (Protonix Ec Tab) 40 mg PO DAILY [facility] Last Admin: 09/22/18 10:03 Dose: 40 mg Potassium Chloride (K-Dur 20 Meq Er Tab) 20 meq PO DAILY [facility] Last Admin: 09/22/18 10:05 Dose: Not Given Rivaroxaban (Xarelto) 20 mg PO DAILY [facility] Last Admin: 09/22/18 10:02 Dose: 20 mg Saccharomyces Boulardii (Florastor) 250 mg PO Q12 [facility] Last Admin: 09/22/18 10:04 Dose: 250 mg Sertraline HCl (Zoloft) 50 mg PO DAILY [facility] Last Admin: 09/22/18 10:01 Dose: 50 mg Sitagliptin Phosphate (Januvia) 100 mg PO DAILY [facility] Last Admin: 09/22/18 10:03 Dose: 100 mg Trazodone HCl (Desyrel) 50 mg PO HS [facility] Last Admin: 09/21/18 21:36 Dose: 50 mg Trimethobenzamide HCl (Tigan) 200 mg IM Q8 PRN PRN Reason: Nausea/Vomiting Vitamin B Complex/Vit C/Folic Acid (Nephro-Lavinia) 1 tab PO DAILY [facility] Last Admin: 09/22/18 10:02 Dose: 1 tab - Labs Labs: 09/22/18 06:48 09/22/18 06:48 PT 22.3 SECONDS (9.7-12.2) H 09/20/18 13:45 INR 2.0 09/20/18 13:45 APTT 33 SECONDS (21-34) 09/20/18 13:45 - Constitutional Appears: Chronically Ill - Head Exam Head Exam: ATRAUMATIC, NORMAL INSPECTION, NORMOCEPHALIC - Eye Exam Eye Exam: EOMI, Normal appearance, PERRL Pupil Exam: NORMAL ACCOMODATION, PERRL - ENT Exam ENT Exam: Mucous Membranes Moist, Normal Exam - Neck Exam Neck Exam: Full ROM, Normal Inspection - Respiratory Exam Respiratory Exam: Decreased Breath Sounds, Prolonged Expiratory Phase, Rhonchi, NORMAL BREATHING PATTERN - Cardiovascular Exam Cardiovascular Exam: Tachycardia, REGULAR RHYTHM, +S1, +S2 - GI/Abdominal Exam GI & Abdominal Exam: Soft, Normal Bowel Sounds Additional comments: Incontinent - Extremities Exam Additional comments: Right tibia Fx, splint on - Back Exam Back Exam: NORMAL INSPECTION - Neurological Exam Neurological Exam: Alert, Oriented x3 Neuro motor strength exam: Left Upper Extremity: 2/, Right Upper Extremity: 2/, Left Lower Extremity: 2/, Right Lower Extremity: 2/ - Psychiatric Exam Psychiatric exam: Flat Affect - Skin Skin Exam: Mottled, Normal Color, Vesicles, Warm Assessment and Plan - Assessment and Plan (Free Text) Assessment: Patient clinically remains same as of yesterday. Her pain is well controlled with Percocet. Of concern is her immobility and prolonged bed rest. Patient is at great risk of pressure sores, and worsening pneumonia. Patient is not parti cipating with PT. Family has questions about options of care. Family meeting attended by daughter and . They feel patient should be treated more before hospice care took place. I reviewed patient's current condition, studies results and current therapy. Family's concerns addressed with Doctor Gutierres and Medical Residents. Speaking patient's rampart language, Doctor Gutierres explained the surgery related risks and suggested family talks to Doctor Delgado directly. I was able to coordinated meeting between Surgeon and family for this afternoon. Impression * Pancreatic cancer * Depression * Lack of desire to participate in care most likely due to depression * Patient and family aware of cancer diagnosis and are exploring the treatment options * Patient is at risk for pressure sore due to immobility * Patient is morbidly obese * Chronic pain well controlled by current meds Suggestion * Reinforce need for PT and OOB to chair BID * Psych consult for treatment of depression, would consider increasing Zoloft to 75 mg PO daily * Refer to Dietitian for calorie count diet to assist with weight loss * promote skin integrity * Continue Percocet PRN pain * Monitor for signs of constipation * Order for bowel regimen Palliative care will continue to fallow up. Advance care planing 60 min
[2018-09-22] MEDS ORDERED: (Novolog) Insulin Aspart, Recombinant 100 u/ml 10 ml vial SC ONE (17:31)
[2018-09-22] MEDS: (Lantus) Insulin Glargine, Recombinant SC SCH (22:07)
[2018-09-23] MEDS: Albuterol-Ipratrop 3 mg / 0.5 (3 ml) UD INH SCH ×6 (00:08→20:08)
--- NOTE | 2018-09-23 01:39 | CP.PCM.CON ---
History of Present Illness - History of Present Illness History of Present Illness: 63 year old female with history of COPD on oxygen, HTN, DM, HL, debility, found to have a pancreatic mass concerning for pancreatic malignancy. The patient has had profound debility and required rehab placement. She was evaluated by hepatobiliary sugery for whipple procedure but deemed high risk. Surgery was deferred for more intensive rehabilitiation. Review of her imaging shows a localized pancreatic mass with no overt evidence of distant metastasis. Past medical history: Fibromyalgia, COPD, HTN, DM, HL Past surgical history: Cholecystectomy, appendectomy, hysterectomy Family history: Denies hematologic and oncologic problems Social history: Former tobacco abuse Allergies: NKA Review of systems: All remaining review of systems including HEENT, cardiovascular, respiratory, gastrointestinal, genitourinary, musculoskeletal, dermatologic, neurologic, and psychiatric are negative unless mentioned in the HPI. Past Patient History - Infectious Disease Hx of Infectious Diseases: None, C.diff - Past Medical History & Family History Past Medical History?: Yes - Past Social History Smoking Status: Never Smoked - CARDIAC Hx Congestive Heart Failure: Yes Hx Hypercholesterolemia: Yes Hx Hypertension: Yes - PULMONARY Hx Chronic Obstructive Pulmonary Disease (COPD): Yes - NEUROLOGICAL Hx Neurological Disorder: Yes HX Cerebrovascular Accident: Yes - HEENT Hx HEENT Problems: No - RENAL Hx Chronic Kidney Disease: No - ENDOCRINE/METABOLIC Hx Hypothyroidism: Yes - HEMATOLOGICAL/ONCOLOGICAL Hx Anemia: Yes - INTEGUMENTARY Hx Dermatological Problems: No - MUSCULOSKELETAL/RHEUMATOLOGICAL Hx Arthritis: Yes (R THR /ORIF) Hx Rheumatoid Arthritis: Yes - GASTROINTESTINAL Hx Gall Bladder Disease: Yes - GENITOURINARY/GYNECOLOGICAL Hx Genitourinary Disorders: Yes Hx Urinary Tract Infection: Yes - PSYCHIATRIC Hx Anxiety: Yes Hx Depression: Yes Hx Substance Use: No - SURGICAL HISTORY Hx Appendectomy: No Hx Cholecystectomy: Yes - ANESTHESIA Hx Anesthesia: Yes Hx Anesthesia Reactions: Yes (DIFFICULTY BREATHING) Meds Allergies/Adverse Reactions: Allergies Allergy/AdvReac Type Severity Reaction Status Date / Time No Known Allergies Allergy Verified 09/01/18 17:29 - Medications Medications: Current Medications Acetaminophen (Tylenol 325mg Tab) 650 mg PO Q4 PRN PRN Reason: Pain, Mild (1-3) Albuterol/Ipratropium (Duoneb 3 Mg/0.5 Mg (3 Ml) Ud) 3 ml INH RQ4 [facility] Last Admin: 09/23/18 00:08 Dose: Not Given Colchicine (Colocrys) 0.6 mg PO BID [facility] Last Admin: 09/22/18 17:46 Dose: 0.6 mg Cyclobenzaprine HCl (Flexeril) 5 mg PO TID [facility] Last Admin: 09/22/18 17:46 Dose: 5 mg Dextrose (Dextrose 50% Inj) 0 ml IV STAT PRN; Protocol PRN Reason: Hypoglycemia Protocol Dextrose (Glutose 15) 0 gm PO ONCE PRN; Protocol PRN Reason: Hypoglycemia Protocol Diazepam (Valium) 5 mg PO BID [facility] Last Admin: 09/22/18 17:43 Dose: 5 mg Dicyclomine HCl (Bentyl) 20 mg PO TID [facility] Last Admin: 09/22/18 17:46 Dose: 20 mg Diltiazem HCl (Cardizem Cd) 180 mg PO BID [facility] Last Admin: 09/22/18 17:43 Dose: 180 mg Ergocalciferol (Drisdol 50,000 Intl Units Cap) 1 cap PO Q7D [facility] Last Admin: 09/20/18 22:29 Dose: Not Given Ferrous Gluconate (Fergon) 324 mg PO TIDCC [facility] Last Admin: 09/22/18 17:43 Dose: 324 mg Fluticasone/Vilanterol (Breo Ellipta 100-25 Mcg Inh) 1 puff INH RQ24 [facility] Furosemide (Lasix) 20 mg PO BID [facility] Last Admin: 09/22/18 17:48 Dose: Not Given Gabapentin (Neurontin) 300 mg PO HS [facility] Last Admin: 09/22/18 22:07 Dose: Not Given Glipizide (Glucotrol) 10 mg PO BID [facility] Last Admin: 09/22/18 17:43 Dose: 10 mg Glucagon (Glucagen Diagnostic Kit) 0 mg IM STAT PRN; Protocol PRN Reason: Hypoglycemia Protocol Home Med (Zinc Oxide/Cl-Xylenol/Petrolat [Perishield Ointment]) 1 oin TP QSHIFT [facility] Ceftriaxone Sodium 1 gm/ (Sodium Chloride) 100 mls @ 100 mls/hr IVPB DAILY [facility]; Protocol Last Admin: 09/22/18 10:03 Dose: 100 mls/hr Dextrose (Dextrose 5% In Water 1000 Ml) 1,000 mls @ 0 mls/hr IV .Q0M PRN; Protocol PRN Reason: Hypoglycemia Protocol Insulin Aspart (Novolog) 0 unit SC ACHS [facility]; Protocol Last Admin: 09/22/18 22:07 Dose: 4 units Insulin Aspart (Novolog) 10 unit SC AC [facility] Insulin Glargine (Lantus) 24 unit SC HS [facility] Last Admin: 09/22/18 22:07 Dose: 24 unit Levothyroxine Sodium (Synthroid) 100 mcg PO 0630 [facility] Last Admin: 09/22/18 05:33 Dose: 100 mcg Lisinopril (Zestril) 10 mg PO DAILY [facility] Last Admin: 09/22/18 10:01 Dose: 10 mg Magnesium Oxide (Mag-Ox) 400 mg PO BID [facility] Last Admin: 09/22/18 17:43 Dose: 400 mg Oxycodone/Acetaminophen (Percocet 5/325 Mg Tab) 2 tab PO Q6H PRN PRN Reason: Pain, severe (8-10) Stop: 09/23/18 20:44 Last Admin: 09/21/18 18:23 Dose: 2 tab Pantoprazole Sodium (Protonix Ec Tab) 40 mg PO DAILY [facility] Last Admin: 09/22/18 10:03 Dose: 40 mg Potassium Chloride (K-Dur 20 Meq Er Tab) 20 meq PO DAILY [facility] Last Admin: 09/22/18 10:05 Dose: Not Given Prednisone (Prednisone Tab) 10 mg PO DAILY [facility] Rivaroxaban (Xarelto) 20 mg PO DAILY [facility] Last Admin: 09/22/18 10:02 Dose: 20 mg Saccharomyces Boulardii (Florastor) 250 mg PO Q12 [facility] Last Admin: 09/22/18 22:07 Dose: Not Given Sertraline HCl (Zoloft) 50 mg PO DAILY [facility] Last Admin: 09/22/18 10:01 Dose: 50 mg Sitagliptin Phosphate (Januvia) 100 mg PO DAILY [facility] Last Admin: 09/22/18 10:03 Dose: 100 mg Trazodone HCl (Desyrel) 50 mg PO HS [facility] Last Admin: 09/22/18 22:07 Dose: Not Given Trimethobenzamide HCl (Tigan) 200 mg IM Q8 PRN PRN Reason: Nausea/Vomiting Vitamin B Complex/Vit C/Folic Acid (Nephro-Lavinia) 1 tab PO DAILY [facility] Last Admin: 09/22/18 10:02 Dose: 1 tab Physical Exam - Head Exam Head Exam: ATRAUMATIC - Eye Exam Eye Exam: Normal appearance - ENT Exam ENT Exam: Mucous Membranes Dry - Respiratory Exam Respiratory Exam: NORMAL BREATHING PATTERN - Cardiovascular Exam Cardiovascular Exam: +S1, +S2 - GI/Abdominal Exam GI & Abdominal Exam: Normal Bowel Sounds - Neurological Exam Neurological exam: Oriented x3 - Psychiatric Exam Psychiatric exam: Normal Affect, Normal Mood - Skin Skin Exam: Warm Results - Vital Signs Recent Vital Signs: Last Vital Signs Temp 98 F 09/22/18 23:29 Pulse 113 H 09/23/18 00:00 Resp 22 09/22/18 23:29 BP 132/83 09/22/18 23:29 Pulse Ox 100 09/22/18 23:29 - Labs Result Diagrams: 09/22/18 06:48 09/22/18 06:48 Labs: Laboratory Results - last 24 hr 09/22/18 09/22/18 09/22/18 02:27 06:17 06:48 WBC 11.3 H RBC 4.14 Hgb 9.2 L Hct 31.6 L MCV 76.3 L MCH 22.3 L MCHC 29.2 L RDW 20.7 H Plt Count 350 MPV 8.8 Neut % (Auto) 87.2 H Lymph % (Auto) 6.4 L Bullock % (Auto) 4.9 Eos % (Auto) 1.0 Baso % (Auto) 0.5 Neut # (Auto) 9.8 H Lymph # (Auto) 0.7 L Bullock # (Auto) 0.6 Eos # (Auto) 0.1 Baso # (Auto) 0.1 Neutrophils % (Manual) 91 H Band Neutrophils % 1 Lymphocytes % (Manual) 4 L Monocytes % (Manual) 4 Platelet Estimate Normal Hypochromasia (manual) Slight Poikilocytosis (manual Slight Anisocytosis (manual) Slight Microcytosis (manual) Slight Target Cells Slight Tear Drop Cells Slight Ovalocytes Slight Sodium Potassium Chloride Carbon Dioxide Anion Gap BUN Creatinine Est GFR ( Amer) Est GFR (Non-Af Amer) POC Glucose (mg/dL) 420 H* 392 H Random Glucose Calcium Phosphorus Magnesium Total Bilirubin AST ALT Alkaline Phosphatase Total Protein Albumin Globulin Albumin/Globulin Ratio 09/22/18 09/22/18 09/22/18 06:48 11:16 16:30 WBC RBC Hgb Hct MCV MCH MCHC RDW Plt Count MPV Neut % (Auto) Lymph % (Auto) Bullock % (Auto) Eos % (Auto) Baso % (Auto) Neut # (Auto) Lymph # (Auto) Bullock # (Auto) Eos # (Auto) Baso # (Auto) Neutrophils % (Manual) Band Neutrophils % Lymphocytes % (Manual) Monocytes % (Manual) Platelet Estimate Hypochromasia (manual) Poikilocytosis (manual Anisocytosis (manual) Microcytosis (manual) Target Cells Tear Drop Cells Ovalocytes Sodium 133 Potassium 3.9 Chloride 93 L Carbon Dioxide 35 H Anion Gap 9 L BUN 17 Creatinine 1.1 Est GFR ( Amer) > 60 Est GFR (Non-Af Amer) 50 POC Glucose (mg/dL) > 500 H* > 500 H* Random Glucose 374 H D Calcium 8.7 Phosphorus 3.9 Magnesium 1.7 Total Bilirubin 0.3 AST 52 H D ALT 63 H D Alkaline Phosphatase 107 Total Protein 6.0 L Albumin 3.3 L Globulin 2.7 Albumin/Globulin Ratio 1.2 09/22/18 09/22/18 16:32 21:42 WBC RBC Hgb Hct MCV MCH MCHC RDW Plt Count MPV Neut % (Auto) Lymph % (Auto) Bullock % (Auto) Eos % (Auto) Baso % (Auto) Neut # (Auto) Lymph # (Auto) Bullock # (Auto) Eos # (Auto) Baso # (Auto) Neutrophils % (Manual) Band Neutrophils % Lymphocytes % (Manual) Monocytes % (Manual) Platelet Estimate Hypochromasia (manual) Poikilocytosis (manual Anisocytosis (manual) Microcytosis (manual) Target Cells Tear Drop Cells Ovalocytes Sodium Potassium Chloride Carbon Dioxide Anion Gap BUN Creatinine Est GFR ( Amer) Est GFR (Non-Af Amer) POC Glucose (mg/dL) > 500 H* > 500 H* Random Glucose Calcium Phosphorus Magnesium Total Bilirubin AST ALT Alkaline Phosphatase Total Protein Albumin Globulin Albumin/Globulin Ratio Assessment & Plan (1) Anemia Assessment and Plan: iron deficiency will start IV iron GI f/u Status: Acute (2) Pancreatic cancer Assessment and Plan: not a current surgical candidate due to debility and comorbidities for rehab in an attempt to improve functional status no overt evidence of distant metastasis Thank you for this interesting consult. Status: Acute
[2018-09-23] MEDS ORDERED: (Novolog) Insulin Aspart, Recombinant 100 u/ml 10 ml vial SC ONE (02:16)
[2018-09-23] MEDS: Levothyroxine 100 MCG TAB PO SCH (06:02)
[2018-09-23 07:21] LABS: BASO % 0.2 % (0.0-2.0); HEMOGLOBIN 8.9 g/dL (11.0-16.0); LYMPH # 1.1 K/uL (1.0-4.3); LYMPH % 7.1 % (20.0-40.0); MEAN CELL VOLUME 74.8 fL (81.0-99.0); MEAN CORPUSCULAR HEMOGLOBIN 22.4 pg (27.0-31.0); MEAN CORPUSCULAR HGB CONC 29.9 g/dL (33.0-37.0); MEAN PLATELET VOLUME 8.7 fL (7.2-11.7); MONO # 1.6 K/uL (0.0-0.8); MONO % 10.3 % (0.0-10.0); NEUT # 13.2 K/uL (1.8-7.0); NEUT % 82.4 % (50.0-75.0); PLATELET COUNT 372 K/uL (130-400); RBC 3.98 Mil/uL (3.80-5.20); RED CELL DISTRIBUTION WIDTH 20.2 % (11.5-14.5)
[2018-09-23 07:36] LABS: ALB/GLOB RATIO 1.2 (1.0-2.1); ALBUMIN 3.2 g/dL (3.5-5.0); ALT/SGPT 56 U/L (9-52); AST/SGOT 35 U/L (14-36); BLOOD UREA NITROGEN 25 mg/dL (7-17); CALCIUM 8.8 mg/dl (8.6-10.4); GFR NON-AFRICAN AMERICAN 50
--- NOTE | 2018-09-23 08:30 | CP.PCM.PN ---
Subjective - Date & Time of Evaluation Date of Evaluation: 09/23/18 Time of Evaluation: 08:27 - Subjective Subjective: Medicine Note for Dr. Gutierres's Service Patient was seen and examined at bedside. Nurse called to due pulse ox of 88% on 2L NC. Patient placed on nonrebreather and given a stat duonebs. Pulse ox increased to 98%. Patient encouraged to get out of bed to chair after treatment, patient shook her head no. Stressed the importance of ambulating. Objective - Vital Signs/Intake and Output Vital Signs (last 24 hours): Temp Pulse Resp BP Pulse Ox 97.6 F 134 H 20 135/80 98 09/23/18 08:21 09/23/18 08:21 09/23/18 08:21 09/23/18 08:21 09/23/18 08:21 Intake and Output: 09/23/18 09/23/18 06:59 18:59 Output Total 100 Balance -100 - Medications Medications: Current Medications Acetaminophen (Tylenol 325mg Tab) 650 mg PO Q4 PRN PRN Reason: Pain, Mild (1-3) Albuterol/Ipratropium (Duoneb 3 Mg/0.5 Mg (3 Ml) Ud) 3 ml INH RQ4 [facility] Last Admin: 09/23/18 03:31 Dose: Not Given Colchicine (Colocrys) 0.6 mg PO BID [facility] Last Admin: 09/22/18 17:46 Dose: 0.6 mg Cyclobenzaprine HCl (Flexeril) 5 mg PO TID [facility] Last Admin: 09/22/18 17:46 Dose: 5 mg Dextrose (Dextrose 50% Inj) 0 ml IV STAT PRN; Protocol PRN Reason: Hypoglycemia Protocol Dextrose (Glutose 15) 0 gm PO ONCE PRN; Protocol PRN Reason: Hypoglycemia Protocol Diazepam (Valium) 5 mg PO BID [facility] Last Admin: 09/22/18 17:43 Dose: 5 mg Dicyclomine HCl (Bentyl) 20 mg PO TID [facility] Last Admin: 09/22/18 17:46 Dose: 20 mg Diltiazem HCl (Cardizem Cd) 180 mg PO BID [facility] Last Admin: 09/22/18 17:43 Dose: 180 mg Ergocalciferol (Drisdol 50,000 Intl Units Cap) 1 cap PO Q7D [facility] Last Admin: 09/20/18 22:29 Dose: Not Given Ferric Sodium Gluconate Complex (Ferrlecit) 125 mg IVPB DAILY [facility] Stop: 10/01/18 10:01 Ferrous Gluconate (Fergon) 324 mg PO TIDCC [facility] Last Admin: 09/22/18 17:43 Dose: 324 mg Fluticasone/Vilanterol (Breo Ellipta 100-25 Mcg Inh) 1 puff INH RQ24 [facility] Furosemide (Lasix) 20 mg PO BID [facility] Last Admin: 09/22/18 17:48 Dose: Not Given Gabapentin (Neurontin) 300 mg PO HS [facility] Last Admin: 09/22/18 22:07 Dose: Not Given Glipizide (Glucotrol) 10 mg PO BID [facility] Last Admin: 09/22/18 17:43 Dose: 10 mg Glucagon (Glucagen Diagnostic Kit) 0 mg IM STAT PRN; Protocol PRN Reason: Hypoglycemia Protocol Home Med (Zinc Oxide/Cl-Xylenol/Petrolat [[place] Ointment]) 1 oin TP QSHIFT [facility] Ceftriaxone Sodium 1 gm/ (Sodium Chloride) 100 mls @ 100 mls/hr IVPB DAILY [facility]; Protocol Last Admin: 09/22/18 10:03 Dose: 100 mls/hr Dextrose (Dextrose 5% In Water 1000 Ml) 1,000 mls @ 0 mls/hr IV .Q0M PRN; Protocol PRN Reason: Hypoglycemia Protocol Insulin Aspart (Novolog) [address] [facility]; Protocol Last Admin: 09/22/18 22:07 Dose: 4 units Insulin Aspart (Novolog) 10 unit SC AC [facility] Insulin Glargine (Lantus) 24 unit SC [facility] Last Admin: 09/22/18 22:07 Dose: 24 unit Levothyroxine Sodium (Synthroid) 100 mcg PO 0630 [facility] Last Admin: 09/23/18 06:02 Dose: 100 mcg Lisinopril (Zestril) 10 mg PO DAILY [facility] Last Admin: 09/22/18 10:01 Dose: 10 mg Magnesium Oxide (Mag-Ox) 400 mg PO BID [facility] Last Admin: 09/22/18 17:43 Dose: 400 mg Oxycodone/Acetaminophen (Percocet 5/325 Mg Tab) 2 tab PO Q6H PRN PRN Reason: Pain, severe (8-10) Stop: 09/23/18 20:44 Last Admin: 09/21/18 18:23 Dose: 2 tab Pantoprazole Sodium (Protonix Ec Tab) 40 mg PO DAILY [facility] Last Admin: 09/22/18 10:03 Dose: 40 mg Potassium Chloride (K-Dur 20 Meq Er Tab) 20 meq PO DAILY [facility] Last Admin: 09/22/18 10:05 Dose: Not Given Prednisone (Prednisone Tab) 10 mg PO DAILY [facility] Rivaroxaban (Xarelto) 20 mg PO DAILY [facility] Last Admin: 09/22/18 10:02 Dose: 20 mg Saccharomyces Boulardii (Florastor) 250 mg PO Q12 [facility] Last Admin: 09/22/18 22:07 Dose: Not Given Sertraline HCl (Zoloft) 50 mg PO DAILY [facility] Last Admin: 09/22/18 10:01 Dose: 50 mg Sitagliptin Phosphate (Januvia) 100 mg PO DAILY [facility] Last Admin: 09/22/18 10:03 Dose: 100 mg Trazodone HCl (Desyrel) 50 mg PO HS [facility] Last Admin: 09/22/18 22:07 Dose: Not Given Trimethobenzamide HCl (Tigan) 200 mg IM Q8 PRN PRN Reason: Nausea/Vomiting Vitamin B Complex/Vit C/Folic Acid (Nephro-Lavinia) 1 tab PO DAILY [facility] Last Admin: 09/22/18 10:02 Dose: 1 tab - Labs Labs: 09/23/18 07:06 09/23/18 07:06 PT 22.3 SECONDS (9.7-12.2) H 09/20/18 13:45 INR 2.0 09/20/18 13:45 APTT 33 SECONDS (21-34) 09/20/18 13:45 - Additional Findings Additional findings: - Constitutional Appears: Cachectic, Chronically Ill - Head Exam Head Exam: NORMAL INSPECTION, NORMOCEPHALIC - Eye Exam Eye Exam: EOMI, Normal appearance, PERRL Pupil Exam: NORMAL ACCOMODATION - ENT Exam ENT Exam: Mucous Membranes Dry - Respiratory Exam Respiratory Exam: Decreased Breath Sounds, Wheezes - Cardiovascular Exam Cardiovascular Exam: Tachycardia - GI/Abdominal Exam GI & Abdominal Exam: Soft, Normal Bowel Sounds. absent: Distended, Tenderness - Extremities Exam Extremities Exam: Normal Inspection. absent: Pedal Edema, Tenderness - Neurological Exam Neurological Exam: Alert, Awake, Oriented x3 - Psychiatric Exam Psychiatric exam: Anxious, Depressed - Skin Skin Exam: Dry, Intact, Normal Color, Warm Assessment and Plan - Assessment and Plan (Free Text) Plan: COPD Exacerbation - Continue home medication: Breo - Duonebs Q4h MATIAS, started Solumedrol 40 IVP Q12 C. Diff During Previous Admission - Complete course of Vancomycin yesterday - Repeat Cdiff negative Pancreatic Mass - Surgery consulted, Dr. Bright; help appreciated * mass appears resectable, however, patient is a not a surgical candidate at this time due to other conditions/comorbities. performance status of 4 currently would need to be improved to 2 for surgical consideration - CEA: 42.5 - CA19-9: 1980 - CA125: 36.2 - Abdomen/Pelvic CT: Heterogeneous hyperdense pancreatic mass measuring approximately 2.7 x 2.5 cm at the pancreatic body/tail. Ectatic dilated pancreatic duct. Additional cystic heterogeneous focus measuring approximately 15 x 14 mm is noted at the superior aspect of the pancreas. Appearance worrisome for malignant neoplasm. Wall thickening involving the 2nd portion of the duodenum of uncertain significance; considerations include infectious, inflammatory, or malignant etiologies. Correlate clinically and recommend further evaluation with direct visualization if indicated. Small pelvic free fluid. Tachycardia - Likely secondary to infection - Cardiology consulted, Dr. Pineda; help appreciated - Increased Cardizem to 180mg PO BID (from 120mg, per Dr. Pineda) - Will continue to monitor Chronic Diastolic Congestive Heart Failure - Stable - Last echo 2016 showed Grade III reversible restrictive diastolic dysfunction, EF 55% - Lasix 20mg PO BID Hypertension - Home medications: * Lisinopril 10mg PO daily * Cardizem 180mg PO BID Diabetes Mellitus - Accuchecks, Hypoglycemia protocol - HgA1c 9.3 (01/2018); repeat A1c 9.0 - Insulin sliding scale - medium - Continue home medications: Januvia 100 mg PO daily, Glipizide 10mg PO BID, Gabapentin 300mg PO HS - Novolog 10 u SC AC - Lantus 20 units HS - Endocrinology consult. Dr Cam. chu appreciated. Fibromyalgia - Home medication: Diazepam 5mg PO BID - Flexeril 5mg PO TID (Holding parameters- hold if sleeping/sedated, hypotension) - Percocet 5/325mg 2 tab Q6H prn for pain - Gabapentin 300mg PO HS Adrenal Insufficiency - Solumedrol 40mg Q12H Hypothyroidism - Continue Synthroid 100mcg PO daily - TSH/Free T4: 9.5/0.30 Hypokalemia -repleted -continue to monitor and replete as needed History of DVT/PE - Continue Xarelto 20mg PO daily Gout - Continue Colchicine Depression - Consulted psychiatry, Dr. Dexter, recs appreciated. - Per psychiatry, Started zoloft 50mg po daily (consider tapering up to 100mg), trazodone 50mg po hs - Valium 5mg po bid Closed fracture of right proximal tibia - Orthopedic surgery consulted, Dr. Hernandez; help appreciated - Per ortho: continue well padded knee immobilizer; non operative; recommends PT/OT, NWB, VTE proph, and to f/u with Dr. Hernandez 1-2 weeks upon d/c Prophylactic Measures - Protonix 40mg PO daily, Probiotics - Xarelto 20mg PO daily - PT/OT - Palliative care consulted to discuss goals of care - Case management consulted for discharge planning to [facility] Disposition: Palliative consulted for code status and possible home hospice evaluation, pending family meeting with Palliative and Dr. Valle. DW Dr. Gutierres, Florencia Alatorre DO, PGY2
[2018-09-23] MEDS: (Novolog) Insulin Aspart, Recombinant 100 u/ml 10 ml vial SC SCH ×7 (08:51→21:34)
[2018-09-23 09:18] LABS: ANISOCYTOSIS SLIGHT; BANDS 1 % (0-2); HYPOCHROMIC SLIGHT; LYMPHOCYTE 3 % (20-40); MONOCYTE 8 % (0-10); NEUTROPHIL 88 % (50-75); PLATELET ESTIMATE NORMAL (NORMAL); POIKILOCYTOSIS SLIGHT; TOTAL CELLS COUNTED 100
[2018-09-23 09:19] LABS: OVALOCYTES SLIGHT
[2018-09-23] MEDS: Ferric Sodium Gluconat Complex 62.5 mg/5 ml Vial IVPB SCH (10:12)
[2018-09-23] MEDS: diltiaZEM 180 mg/24 Hours CD Cap PO SCH ×2 (10:13→17:48)
[2018-09-23] MEDS: Multivitamin Vitamin B Complex (Nephro-Vite) Tab PO SCH (10:13)
[2018-09-23] MEDS: Saccharomyces Boulardi 250 mg Cap PO SCH ×2 (10:13→21:35)
[2018-09-23] MEDS: Magnesium Oxide 400 mg Tab UD PO SCH ×2 (10:14→17:49)
[2018-09-23] MEDS: Potassium Chloride 20 mEq ER Tab PO SCH (10:14)
[2018-09-23] MEDS: Pantoprazole 40 mg EC Tab PO SCH (10:14)
[2018-09-23] MEDS: Fluticasone-Vilanterol 100/25mcg Diskus INH SCH (13:26)
[2018-09-23] MEDS: Oxycodone/Acetaminophen 5/325 mg Tab PO PRN (13:37)
[2018-09-23] MEDS: (Lantus) Insulin Glargine, Recombinant SC SCH (21:35)
[2018-09-24] MEDS: Levothyroxine 100 MCG TAB PO SCH (06:40)
[2018-09-24] MEDS: Albuterol-Ipratrop 3 mg / 0.5 (3 ml) UD INH SCH ×5 (07:25→23:44)
[2018-09-24] MEDS: Fluticasone-Vilanterol 100/25mcg Diskus INH SCH (07:25)
[2018-09-24] MEDS: (Novolog) Insulin Aspart, Recombinant 100 u/ml 10 ml vial SC SCH ×7 (08:10→21:51)
[2018-09-24] MEDS: diltiaZEM 180 mg/24 Hours CD Cap PO SCH ×2 (10:24→18:00)
[2018-09-24] MEDS: Saccharomyces Boulardi 250 mg Cap PO SCH ×2 (10:24→21:56)
[2018-09-24] MEDS: Magnesium Oxide 400 mg Tab UD PO SCH ×2 (10:24→18:00)
[2018-09-24] MEDS: Pantoprazole 40 mg EC Tab PO SCH (10:24)
[2018-09-24] MEDS: Potassium Chloride 20 mEq ER Tab PO SCH (10:24)
[2018-09-24] MEDS: Multivitamin Vitamin B Complex (Nephro-Vite) Tab PO SCH (10:25)
[2018-09-24] MEDS: Ferric Sodium Gluconat Complex 62.5 mg/5 ml Vial IVPB SCH (10:25)
[2018-09-24] MEDS: (Lantus) Insulin Glargine, Recombinant SC SCH (21:56)
[2018-09-25] MEDS: Albuterol-Ipratrop 3 mg / 0.5 (3 ml) UD INH SCH ×8 (00:25→23:56)
[2018-09-25] MEDS: Levothyroxine 100 MCG TAB PO SCH (06:01)
[2018-09-25] MEDS: Fluticasone-Vilanterol 100/25mcg Diskus INH SCH (07:45)
[2018-09-25] MEDS: (Novolog) Insulin Aspart, Recombinant 100 u/ml 10 ml vial SC SCH ×7 (07:47→21:16)
[2018-09-25] MEDS: Ferric Sodium Gluconat Complex 62.5 mg/5 ml Vial IVPB SCH (09:16)
[2018-09-25] MEDS: Saccharomyces Boulardi 250 mg Cap PO SCH ×2 (09:18→21:05)
[2018-09-25] MEDS: Pantoprazole 40 mg EC Tab PO SCH (09:18)
[2018-09-25] MEDS: Multivitamin Vitamin B Complex (Nephro-Vite) Tab PO SCH (09:18)
[2018-09-25] MEDS: Potassium Chloride 20 mEq ER Tab PO SCH (09:18)
[2018-09-25] MEDS: Magnesium Oxide 400 mg Tab UD PO SCH ×2 (09:19→17:42)
[2018-09-25] MEDS: diltiaZEM 180 mg/24 Hours CD Cap PO SCH ×2 (09:19→17:41)
[2018-09-25] MEDS: Oxycodone/Acetaminophen 5/325 mg Tab PO PRN ×2 (10:50→21:05)
[2018-09-25] MEDS: (Lantus) Insulin Glargine, Recombinant SC SCH (21:18)
--- NOTE | 2018-09-26 00:33 | CP.PCM.PN ---
Subjective - Date & Time of Evaluation Date of Evaluation: 09/23/18 Time of Evaluation: 12:00 - Subjective Subjective: Feeling better, trying to eat more. Objective - Vital Signs/Intake and Output Vital Signs (last 24 hours): Temp Pulse Resp BP Pulse Ox 97.7 F 123 H 20 110/71 91 L 09/25/18 22:00 09/25/18 23:57 09/25/18 22:00 09/25/18 22:00 09/25/18 16:30 Intake and Output: 09/25/18 09/26/18 18:59 06:59 Intake Total 560 240 Output Total 600 Balance -40 240 - Medications Medications: Current Medications Acetaminophen (Tylenol 325mg Tab) 650 mg PO Q4 PRN PRN Reason: Pain, Mild (1-3) Last Admin: 09/24/18 20:16 Dose: 650 mg Albuterol/Ipratropium (Duoneb 3 Mg/0.5 Mg (3 Ml) Ud) 3 ml INH RQ4 [facility] Last Admin: 09/25/18 23:56 Dose: 3 ml Colchicine (Colocrys) 0.6 mg PO BID [facility] Last Admin: 09/25/18 17:43 Dose: 0.6 mg Cyclobenzaprine HCl (Flexeril) 5 mg PO TID [facility] Last Admin: 09/25/18 17:42 Dose: 5 mg Dextrose (Dextrose 50% Inj) 0 ml IV STAT PRN; Protocol PRN Reason: Hypoglycemia Protocol Dextrose (Glutose 15) 0 gm PO ONCE PRN; Protocol PRN Reason: Hypoglycemia Protocol Diazepam (Valium) 5 mg PO BID [facility] Last Admin: 09/25/18 17:42 Dose: 5 mg Dicyclomine HCl (Bentyl) 20 mg PO TID [facility] Last Admin: 09/25/18 17:43 Dose: 20 mg Diltiazem HCl (Cardizem Cd) 180 mg PO BID [facility] Last Admin: 09/25/18 17:41 Dose: 180 mg Ergocalciferol (Drisdol 50,000 Intl Units Cap) 1 cap PO Q7D [facility] Last Admin: 09/20/18 22:29 Dose: Not Given Ferric Sodium Gluconate Complex (Ferrlecit) 125 mg IVPB DAILY [facility] Stop: 10/01/18 10:01 Last Admin: 09/25/18 09:16 Dose: 125 mg Ferrous Gluconate (Fergon) 324 mg PO TIDCC [facility] Last Admin: 09/25/18 16:46 Dose: 324 mg Fluticasone/Vilanterol (Breo Ellipta 100-25 Mcg Inh) 1 puff INH RQ24 [facility] Last Admin: 09/25/18 07:45 Dose: Not Given Furosemide (Lasix) 20 mg PO BID [facility] Last Admin: 09/25/18 17:42 Dose: 20 mg Gabapentin (Neurontin) 300 mg PO HS [facility] Last Admin: 09/25/18 21:05 Dose: 300 mg Glipizide (Glucotrol) 10 mg PO BID [facility] Last Admin: 09/25/18 17:42 Dose: 10 mg Glucagon (Glucagen Diagnostic Kit) 0 mg IM STAT PRN; Protocol PRN Reason: Hypoglycemia Protocol Dextrose (Dextrose 5% In Water 1000 Ml) 1,000 mls @ 0 mls/hr IV .Q0M PRN; Protocol PRN Reason: Hypoglycemia Protocol Insulin Aspart (Novolog) 0 unit SC [facility]S [facility]; Protocol Last Admin: 09/25/18 21:16 Dose: Not Given Insulin Aspart (Novolog) 10 unit SC AC [facility] Last Admin: 09/25/18 16:43 Dose: 10 units Insulin Glargine (Lantus) 24 unit SC HS [facility] Last Admin: 09/25/18 21:18 Dose: 24 unit Levothyroxine Sodium (Synthroid) 100 mcg PO 0630 [facility] Last Admin: 09/25/18 06:01 Dose: 100 mcg Lisinopril (Zestril) 10 mg PO DAILY [facility] Last Admin: 09/25/18 09:17 Dose: 10 mg Magnesium Oxide (Mag-Ox) 400 mg PO BID [facility] Last Admin: 09/25/18 17:42 Dose: 400 mg Oxycodone/Acetaminophen (Percocet 5/325 Mg Tab) 2 tab PO Q6H PRN PRN Reason: Pain, severe (8-10) Stop: 09/27/18 23:17 Last Admin: 09/25/18 21:05 Dose: 2 tab Pantoprazole Sodium (Protonix Ec Tab) 40 mg PO DAILY [facility] Last Admin: 09/25/18 09:18 Dose: 40 mg Potassium Chloride (K-Dur 20 Meq Er Tab) 20 meq PO DAILY [facility] Last Admin: 09/25/18 09:18 Dose: 20 meq Prednisone (Prednisone Tab) 10 mg PO DAILY [facility] Last Admin: 09/25/18 09:18 Dose: 10 mg Rivaroxaban (Xarelto) 20 mg PO DAILY [facility] Last Admin: 09/25/18 09:21 Dose: 20 mg Saccharomyces Boulardii (Florastor) 250 mg PO Q12 [facility] Last Admin: 09/25/18 21:05 Dose: 250 mg Sertraline HCl (Zoloft) 50 mg PO DAILY [facility] Last Admin: 09/25/18 09:18 Dose: 50 mg Sitagliptin Phosphate (Januvia) 100 mg PO DAILY [facility] Last Admin: 09/25/18 09:18 Dose: 100 mg Trazodone HCl (Desyrel) 50 mg PO HS [facility] Last Admin: 09/25/18 21:05 Dose: 50 mg Trimethobenzamide HCl (Tigan) 200 mg IM Q8 PRN PRN Reason: Nausea/Vomiting Vitamin B Complex/Vit C/Folic Acid (Nephro-Lavinia) 1 tab PO DAILY [facility] Last Admin: 09/25/18 09:18 Dose: 1 tab - Labs Labs: 09/23/18 07:06 09/23/18 07:06 PT 22.3 SECONDS (9.7-12.2) H 09/20/18 13:45 INR 2.0 09/20/18 13:45 APTT 33 SECONDS (21-34) 09/20/18 13:45 - Head Exam Head Exam: ATRAUMATIC - Eye Exam Eye Exam: Normal appearance - ENT Exam ENT Exam: Mucous Membranes Dry - Respiratory Exam Respiratory Exam: NORMAL BREATHING PATTERN - Cardiovascular Exam Cardiovascular Exam: +S1, +S2 - GI/Abdominal Exam GI & Abdominal Exam: Normal Bowel Sounds Assessment and Plan (1) Anemia Assessment & Plan: iron deficiency anemia on IV iron transfusion support PRN Status: Acute (2) Pancreatic cancer Assessment & Plan: not a surgical candidate due to debility for rehab and surgical reevaluation Status: Acute
--- NOTE | 2018-09-26 00:35 | CP.PCM.PN ---
Subjective - Date & Time of Evaluation Date of Evaluation: 09/24/18 Time of Evaluation: 18:00 - Subjective Subjective: No complaints. Objective - Vital Signs/Intake and Output Vital Signs (last 24 hours): Temp Pulse Resp BP Pulse Ox 97.7 F 123 H 20 110/71 91 L 09/25/18 22:00 09/25/18 23:57 09/25/18 22:00 09/25/18 22:00 09/25/18 16:30 Intake and Output: 09/25/18 09/26/18 18:59 06:59 Intake Total 560 240 Output Total 600 Balance -40 240 - Medications Medications: Current Medications Acetaminophen (Tylenol 325mg Tab) 650 mg PO Q4 PRN PRN Reason: Pain, Mild (1-3) Last Admin: 09/24/18 20:16 Dose: 650 mg Albuterol/Ipratropium (Duoneb 3 Mg/0.5 Mg (3 Ml) Ud) 3 ml INH RQ4 [facility] Last Admin: 09/25/18 23:56 Dose: 3 ml Colchicine (Colocrys) 0.6 mg PO BID [facility] Last Admin: 09/25/18 17:43 Dose: 0.6 mg Cyclobenzaprine HCl (Flexeril) 5 mg PO TID [facility] Last Admin: 09/25/18 17:42 Dose: 5 mg Dextrose (Dextrose 50% Inj) 0 ml IV STAT PRN; Protocol PRN Reason: Hypoglycemia Protocol Dextrose (Glutose 15) 0 gm PO ONCE PRN; Protocol PRN Reason: Hypoglycemia Protocol Diazepam (Valium) 5 mg PO BID [facility] Last Admin: 09/25/18 17:42 Dose: 5 mg Dicyclomine HCl (Bentyl) 20 mg PO TID [facility] Last Admin: 09/25/18 17:43 Dose: 20 mg Diltiazem HCl (Cardizem Cd) 180 mg PO BID [facility] Last Admin: 09/25/18 17:41 Dose: 180 mg Ergocalciferol (Drisdol 50,000 Intl Units Cap) 1 cap PO Q7D [facility] Last Admin: 09/20/18 22:29 Dose: Not Given Ferric Sodium Gluconate Complex (Ferrlecit) 125 mg IVPB DAILY [facility] Stop: 10/01/18 10:01 Last Admin: 09/25/18 09:16 Dose: 125 mg Ferrous Gluconate (Fergon) 324 mg PO TIDCC [facility] Last Admin: 09/25/18 16:46 Dose: 324 mg Fluticasone/Vilanterol (Breo Ellipta 100-25 Mcg Inh) 1 puff INH RQ24 [facility] Last Admin: 09/25/18 07:45 Dose: Not Given Furosemide (Lasix) 20 mg PO BID [facility] Last Admin: 09/25/18 17:42 Dose: 20 mg Gabapentin (Neurontin) 300 mg PO HS [facility] Last Admin: 09/25/18 21:05 Dose: 300 mg Glipizide (Glucotrol) 10 mg PO BID [facility] Last Admin: 09/25/18 17:42 Dose: 10 mg Glucagon (Glucagen Diagnostic Kit) 0 mg IM STAT PRN; Protocol PRN Reason: Hypoglycemia Protocol Dextrose (Dextrose 5% In Water 1000 Ml) 1,000 mls @ 0 mls/hr IV .Q0M PRN; Protocol PRN Reason: Hypoglycemia Protocol Insulin Aspart (Novolog) 0 unit SC ACHS [facility]; Protocol Last Admin: 09/25/18 21:16 Dose: Not Given Insulin Aspart (Novolog) 10 unit SC AC [facility] Last Admin: 09/25/18 16:43 Dose: 10 units Insulin Glargine (Lantus) 24 unit SC HS [facility] Last Admin: 09/25/18 21:18 Dose: 24 unit Levothyroxine Sodium (Synthroid) 100 mcg PO 0630 [facility] Last Admin: 09/25/18 06:01 Dose: 100 mcg Lisinopril (Zestril) 10 mg PO DAILY [facility] Last Admin: 09/25/18 09:17 Dose: 10 mg Magnesium Oxide (Mag-Ox) 400 mg PO BID [facility] Last Admin: 09/25/18 17:42 Dose: 400 mg Oxycodone/Acetaminophen (Percocet 5/325 Mg Tab) 2 tab PO Q6H PRN PRN Reason: Pain, severe (8-10) Stop: 09/27/18 23:17 Last Admin: 09/25/18 21:05 Dose: 2 tab Pantoprazole Sodium (Protonix Ec Tab) 40 mg PO DAILY [facility] Last Admin: 09/25/18 09:18 Dose: 40 mg Potassium Chloride (K-Dur 20 Meq Er Tab) 20 meq PO DAILY [facility] Last Admin: 09/25/18 09:18 Dose: 20 meq Prednisone (Prednisone Tab) 10 mg PO DAILY [facility] Last Admin: 09/25/18 09:18 Dose: 10 mg Rivaroxaban (Xarelto) 20 mg PO DAILY [facility] Last Admin: 09/25/18 09:21 Dose: 20 mg Saccharomyces Boulardii (Florastor) 250 mg PO Q12 [facility] Last Admin: 09/25/18 21:05 Dose: 250 mg Sertraline HCl (Zoloft) 50 mg PO DAILY [facility] Last Admin: 09/25/18 09:18 Dose: 50 mg Sitagliptin Phosphate (Januvia) 100 mg PO DAILY [facility] Last Admin: 09/25/18 09:18 Dose: 100 mg Trazodone HCl (Desyrel) 50 mg PO HS [facility] Last Admin: 09/25/18 21:05 Dose: 50 mg Trimethobenzamide HCl (Tigan) 200 mg IM Q8 PRN PRN Reason: Nausea/Vomiting Vitamin B Complex/Vit C/Folic Acid (Nephro-Lavinia) 1 tab PO DAILY [facility] Last Admin: 09/25/18 09:18 Dose: 1 tab - Labs Labs: 09/23/18 07:06 09/23/18 07:06 PT 22.3 SECONDS (9.7-12.2) H 09/20/18 13:45 INR 2.0 09/20/18 13:45 APTT 33 SECONDS (21-34) 09/20/18 13:45 - Head Exam Head Exam: ATRAUMATIC - Eye Exam Eye Exam: Normal appearance - ENT Exam ENT Exam: Mucous Membranes Dry - Respiratory Exam Respiratory Exam: NORMAL BREATHING PATTERN - Cardiovascular Exam Cardiovascular Exam: +S1, +S2 - GI/Abdominal Exam GI & Abdominal Exam: Normal Bowel Sounds Assessment and Plan (1) Anemia Assessment & Plan: iron deficiency anemia on IV iron transfusion support PRN Status: Acute (2) Pancreatic cancer Assessment & Plan: no evidence of distant metastasis not a current surgical candidate due to debility surgical reevaluation after rehab Status: Acute
[2018-09-26] MEDS: Levothyroxine 100 MCG TAB PO SCH (05:40)
[2018-09-26] MEDS: (Novolog) Insulin Aspart, Recombinant 100 u/ml 10 ml vial SC SCH ×7 (08:30→22:37)
[2018-09-26] MEDS: Multivitamin Vitamin B Complex (Nephro-Vite) Tab PO SCH (10:54)
[2018-09-26] MEDS: Potassium Chloride 20 mEq ER Tab PO SCH (10:54)
[2018-09-26] MEDS: Magnesium Oxide 400 mg Tab UD PO SCH ×2 (10:54→18:28)
[2018-09-26] MEDS: Pantoprazole 40 mg EC Tab PO SCH (10:55)
[2018-09-26] MEDS: diltiaZEM 180 mg/24 Hours CD Cap PO SCH ×2 (10:57→18:28)
[2018-09-26] MEDS: Saccharomyces Boulardi 250 mg Cap PO SCH ×2 (10:57→22:31)
[2018-09-26] MEDS: Ferric Sodium Gluconat Complex 62.5 mg/5 ml Vial IVPB SCH (10:57)
[2018-09-26] MEDS: Fluticasone-Vilanterol 100/25mcg Diskus INH SCH (11:11)
[2018-09-26 11:30] LABS: BASO % 0.3 % (0.0-2.0); EOS # 0.2 K/uL (0.0-0.7); EOS % 1.3 % (0.0-4.0); HEMOGLOBIN 8.4 g/dL (11.0-16.0); LYMPH # 2.1 K/uL (1.0-4.3); LYMPH % 13.7 % (20.0-40.0); MEAN CORPUSCULAR HEMOGLOBIN 22.4 pg (27.0-31.0); MEAN CORPUSCULAR HGB CONC 29.1 g/dL (33.0-37.0); MEAN PLATELET VOLUME 8.7 fL (7.2-11.7); MONO % 6.8 % (0.0-10.0); NEUT # 11.9 K/uL (1.8-7.0); NEUT % 77.9 % (50.0-75.0); NRBC % 0.1 % (0.0-2.0); RBC 3.76 Mil/uL (3.80-5.20); RED CELL DISTRIBUTION WIDTH 21.5 % (11.5-14.5); WHITE BLOOD COUNT 15.3 K/uL (4.8-10.8)
[2018-09-26 11:39] LABS: MEAN CELL VOLUME 76.9 fL (81.0-99.0)
[2018-09-26 12:02] LABS: ALB/GLOB RATIO 1.1 (1.0-2.1); ALBUMIN 2.8 g/dL (3.5-5.0); ALT/SGPT 82 U/L (9-52); AST/SGOT 50 U/L (14-36); BLOOD UREA NITROGEN 35 mg/dL (7-17); CALCIUM 8.4 mg/dl (8.6-10.4); GFR NON-AFRICAN AMERICAN 50
[2018-09-26] MEDS ORDERED: diltiaZEM 180 mg/24 Hours CD Cap PO ONE (14:00)
--- NOTE | 2018-09-26 15:43 | CP.PCM.PN ---
Subjective - Date & Time of Evaluation Date of Evaluation: 09/26/18 Time of Evaluation: 15:42 - Subjective Subjective: Medicine Progress Note - Dr Gutierres's service Patient seen and examined at bedside. Per nursing, patient with low BPs, 80s/50s. Patient also tachycardic. Patient states that she ate breakfast, denies any symptoms at this time. Objective - Vital Signs/Intake and Output Vital Signs (last 24 hours): Temp Pulse Resp BP Pulse Ox 97.9 F 142 H 20 114/74 99 09/26/18 08:57 09/26/18 13:50 09/26/18 08:57 09/26/18 13:50 09/26/18 08:57 Intake and Output: 09/26/18 09/26/18 06:59 18:59 Intake Total 240 100 Output Total 300 Balance -60 100 - Medications Medications: Current Medications Acetaminophen (Tylenol 325mg Tab) 650 mg PO Q4 PRN PRN Reason: Pain, Mild (1-3) Last Admin: 09/24/18 20:16 Dose: 650 mg Colchicine (Colocrys) 0.6 mg PO BID [facility] Last Admin: 09/26/18 10:55 Dose: 0.6 mg Cyclobenzaprine HCl (Flexeril) 5 mg PO TID [facility] Last Admin: 09/26/18 13:03 Dose: 5 mg Dextrose (Dextrose 50% Inj) 0 ml IV STAT PRN; Protocol PRN Reason: Hypoglycemia Protocol Dextrose (Glutose 15) 0 gm PO ONCE PRN; Protocol PRN Reason: Hypoglycemia Protocol Diazepam (Valium) 5 mg PO BID [facility] Last Admin: 09/26/18 10:56 Dose: 5 mg Dicyclomine HCl (Bentyl) 20 mg PO TID [facility] Last Admin: 09/26/18 14:03 Dose: Not Given Diltiazem HCl (Cardizem Cd) 180 mg PO BID [facility] Last Admin: 09/26/18 10:57 Dose: Not Given Ergocalciferol (Drisdol 50,000 Intl Units Cap) 1 cap PO Q7D [facility] Last Admin: 09/20/18 22:29 Dose: Not Given Ferric Sodium Gluconate Complex (Ferrlecit) 125 mg IVPB DAILY [facility] Stop: 10/01/18 10:01 Last Admin: 09/26/18 10:57 Dose: 125 mg Ferrous Gluconate (Fergon) 324 mg PO TIDCC [facility] Last Admin: 09/26/18 12:28 Dose: 324 mg Fluticasone/Vilanterol (Breo Ellipta 100-25 Mcg Inh) 1 puff INH RQ24 [facility] Last Admin: 09/26/18 11:11 Dose: Not Given Furosemide (Lasix) 20 mg PO BID [facility] Last Admin: 09/26/18 10:57 Dose: Not Given Gabapentin (Neurontin) 300 mg PO HS [facility] Last Admin: 09/25/18 21:05 Dose: 300 mg Glipizide (Glucotrol) 10 mg PO BID [facility] Last Admin: 09/26/18 10:55 Dose: 10 mg Glucagon (Glucagen Diagnostic Kit) 0 mg IM STAT PRN; Protocol PRN Reason: Hypoglycemia Protocol Insulin Aspart (Novolog) 0 unit SC ACHS [facility]; Protocol Last Admin: 09/26/18 12:28 Dose: 3 units Insulin Aspart (Novolog) 10 unit SC AC [facility] Last Admin: 09/26/18 12:28 Dose: 10 units Insulin Glargine (Lantus) 24 unit SC HS [facility] Last Admin: 09/25/18 21:18 Dose: 24 unit Levothyroxine Sodium (Synthroid) 100 mcg PO 0630 [facility] Last Admin: 09/26/18 05:40 Dose: 100 mcg Lisinopril (Zestril) 10 mg PO DAILY [facility] Last Admin: 09/26/18 10:56 Dose: Not Given Magnesium Oxide (Mag-Ox) 400 mg PO BID [facility] Last Admin: 09/26/18 10:54 Dose: 400 mg Oxycodone/Acetaminophen (Percocet 5/325 Mg Tab) 2 tab PO Q6H PRN PRN Reason: Pain, severe (8-10) Stop: 09/27/18 23:17 Last Admin: 09/25/18 21:05 Dose: 2 tab Pantoprazole Sodium (Protonix Ec Tab) 40 mg PO DAILY [facility] Last Admin: 09/26/18 10:55 Dose: 40 mg Potassium Chloride (K-Dur 20 Meq Er Tab) 20 meq PO DAILY [facility] Last Admin: 09/26/18 10:54 Dose: 20 meq Prednisone (Prednisone Tab) 10 mg PO DAILY [facility] Last Admin: 09/26/18 10:55 Dose: 10 mg Rivaroxaban (Xarelto) 20 mg PO DAILY [facility] Last Admin: 09/26/18 10:56 Dose: 20 mg Saccharomyces Boulardii (Florastor) 250 mg PO Q12 [facility] Last Admin: 09/26/18 10:57 Dose: 250 mg Sertraline HCl (Zoloft) 50 mg PO DAILY [facility] Last Admin: 09/26/18 10:54 Dose: 50 mg Sitagliptin Phosphate (Januvia) 100 mg PO DAILY [facility] Last Admin: 09/26/18 10:54 Dose: 100 mg Trazodone HCl (Desyrel) 50 mg PO HS [facility] Last Admin: 09/25/18 21:05 Dose: 50 mg Trimethobenzamide HCl (Tigan) 200 mg IM Q8 PRN PRN Reason: Nausea/Vomiting Vitamin B Complex/Vit C/Folic Acid (Nephro-Lavinia) 1 tab PO DAILY [facility] Last Admin: 09/26/18 10:54 Dose: 1 tab - Labs Labs: 09/26/18 11:16 09/26/18 11:16 PT 22.3 SECONDS (9.7-12.2) H 09/20/18 13:45 INR 2.0 09/20/18 13:45 APTT 33 SECONDS (21-34) 09/20/18 13:45 - Additional Findings Additional findings: - Constitutional Appears: Cachectic, Chronically Ill - Head Exam Head Exam: NORMAL INSPECTION, NORMOCEPHALIC - Eye Exam Eye Exam: EOMI, Normal appearance, PERRL Pupil Exam: NORMAL ACCOMODATION - ENT Exam ENT Exam: Mucous Membranes Dry - Respiratory Exam Respiratory Exam: Decreased Breath Sounds, Wheezes - Cardiovascular Exam Cardiovascular Exam: Tachycardia - GI/Abdominal Exam GI & Abdominal Exam: Soft, Normal Bowel Sounds. absent: Distended, Tenderness - Extremities Exam Extremities Exam: Normal Inspection. absent: Pedal Edema, Tenderness - Neurological Exam Neurological Exam: Alert, Awake, Oriented x3 - Psychiatric Exam Psychiatric exam: Anxious, Depressed - Skin Skin Exam: Dry, Intact, Normal Color, Warm Assessment and Plan - Assessment and Plan (Free Text) Assessment: Hypotension -NS bolus of 250cc ordered -Will hold BP meds at this time and observe COPD Exacerbation - Continue home medication: Breo - Duonebs Q4h prn C. Diff During Previous Admission - Complete course of Vancomycin - Repeat Cdiff negative Pancreatic Mass - Surgery consulted, Dr. Bright; help appreciated * mass appears resectable, however, patient is a not a surgical candidate at this time due to other conditions/comorbities. performance status of 4 currently would need to be improved to 2 for surgical consideration - CEA: 42.5 - CA19-9: 1980 - CA125: 36.2 - Abdomen/Pelvic CT: Heterogeneous hyperdense pancreatic mass measuring approximately 2.7 x 2.5 cm at the pancreatic body/tail. Ectatic dilated pancrea tic duct. Additional cystic heterogeneous focus measuring approximately 15 x 14 mm is noted at the superior aspect of the pancreas. Appearance worrisome for malignant neoplasm. Wall thickening involving the 2nd portion of the duodenum of uncertain significance; considerations include infectious, inflammatory, or malignant etiologies. Correlate clinically and recommend further evaluation with direct visualization if indicated. Small pelvic free fluid. Tachycardia - Cardiology consulted, Dr. Pineda; help appreciated - Cardizem to 180mg PO BID (from 120mg, per Dr. Pineda) - Will continue to monitor Chronic Diastolic Congestive Heart Failure - Stable - Last echo 2016 showed Grade III reversible restrictive diastolic dysfunction, EF 55% - Lasix 20mg PO BID Hypertension - Home medications: * Lisinopril 10mg PO daily (held) * Cardizem 180mg PO BID (held) Diabetes Mellitus - Accuchecks, Hypoglycemia protocol - HgA1c 9.3 (01/2018); repeat A1c 9.0 - Insulin sliding scale - medium - Continue home medications: Januvia 100 mg PO daily, Glipizide 10mg PO BID, Gabapentin 300mg PO HS - Novolog 10 u SC AC - Lantus 24 units HS - Endocrinology consult. Dr Dickson. recs appreciated. Fibromyalgia - Home medication: Diazepam 5mg PO BID - Flexeril 5mg PO TID (Holding parameters- hold if sleeping/sedated, hypotension) - Percocet 5/325mg 2 tab Q6H prn for pain - Gabapentin 300mg PO HS Adrenal Insufficiency - On prednisone 10mg PO daily Hypothyroidism - Continue Synthroid 100mcg PO daily - TSH/Free T4: 9.5/0.30 Hypokalemia -repleted -continue to monitor and replete as needed History of DVT/PE - Continue Xarelto 20mg PO daily Gout - Continue Colchicine Depression - Consulted psychiatry, Dr. Dexter, recs appreciated. - Per psychiatry, Started zoloft 50mg po daily (consider tapering up to 100mg), trazodone 50mg po hs - Valium 5mg po bid Closed fracture of right proximal tibia - Orthopedic surgery consulted, Dr. Hernandez; help appreciated - Per ortho: continue well padded knee immobilizer; non operative; recommends PT/OT, NWB, VTE proph, and to f/u with Dr. Hernandez 1-2 weeks upon d/c Prophylactic Measures - Protonix 40mg PO daily, Probiotics - Xarelto 20mg PO daily - PT/OT - Palliative care consulted to discuss goals of care - Case management consulted for discharge planning to [facility] Disposition: Palliative consulted for code status and possible home hospice evaluation, pending family meeting with Palliative and Dr. Valle. Plan discussed with Dr Nenita Cortez DO PGY-2
[2018-09-26] MEDS: Oxycodone/Acetaminophen 5/325 mg Tab PO PRN (16:36)
[2018-09-26] MEDS: (Lantus) Insulin Glargine, Recombinant SC SCH (22:32)
--- NOTE | 2018-09-26 23:09 | CP.PCM.PN ---
Subjective - Date & Time of Evaluation Date of Evaluation: 09/26/18 Time of Evaluation: 19:00 - Subjective Subjective: No complaints. Objective - Vital Signs/Intake and Output Vital Signs (last 24 hours): Temp Pulse Resp BP Pulse Ox 98.3 F 112 H 20 127/78 96 09/26/18 16:00 09/26/18 22:21 09/26/18 19:45 09/26/18 19:45 09/26/18 16:00 Intake and Output: 09/26/18 09/27/18 18:59 06:59 Intake Total 100 Balance 100 - Medications Medications: Current Medications Acetaminophen (Tylenol 325mg Tab) 650 mg PO Q4 PRN PRN Reason: Pain, Mild (1-3) Last Admin: 09/24/18 20:16 Dose: 650 mg Colchicine (Colocrys) 0.6 mg PO BID [facility] Last Admin: 09/26/18 18:30 Dose: 0.6 mg Cyclobenzaprine HCl (Flexeril) 5 mg PO TID [facility] Last Admin: 09/26/18 18:30 Dose: 5 mg Dextrose (Dextrose 50% Inj) 0 ml IV STAT PRN; Protocol PRN Reason: Hypoglycemia Protocol Dextrose (Glutose 15) 0 gm PO ONCE PRN; Protocol PRN Reason: Hypoglycemia Protocol Diazepam (Valium) 5 mg PO BID [facility] Last Admin: 09/26/18 18:28 Dose: 5 mg Dicyclomine HCl (Bentyl) 20 mg PO TID [facility] Last Admin: 09/26/18 18:29 Dose: 20 mg Diltiazem HCl (Cardizem Cd) 180 mg PO BID [facility] Last Admin: 09/26/18 18:28 Dose: 180 mg Ergocalciferol (Drisdol 50,000 Intl Units Cap) 1 cap PO Q7D [facility] Last Admin: 09/20/18 22:29 Dose: Not Given Ferric Sodium Gluconate Complex (Ferrlecit) 125 mg IVPB DAILY [facility] Stop: 10/01/18 10:01 Last Admin: 09/26/18 10:57 Dose: 125 mg Ferrous Gluconate (Fergon) 324 mg PO TIDCC [facility] Last Admin: 09/26/18 18:28 Dose: 324 mg Fluticasone/Vilanterol (Breo Ellipta 100-25 Mcg Inh) 1 puff INH RQ24 [facility] Last Admin: 09/26/18 11:11 Dose: Not Given Furosemide (Lasix) 20 mg PO BID [facility] Last Admin: 09/26/18 18:28 Dose: 20 mg Gabapentin (Neurontin) 300 mg PO HS [facility] Last Admin: 09/26/18 22:31 Dose: 300 mg Glipizide (Glucotrol) 10 mg PO BID [facility] Last Admin: 09/26/18 18:27 Dose: 10 mg Glucagon (Glucagen Diagnostic Kit) 0 mg IM STAT PRN; Protocol PRN Reason: Hypoglycemia Protocol Insulin Aspart (Novolog) 0 unit SC ACHS [facility]; Protocol Last Admin: 09/26/18 22:37 Dose: Not Given Insulin Aspart (Novolog) 10 unit SC AC [facility] Last Admin: 09/26/18 18:31 Dose: 10 units Insulin Glargine (Lantus) 24 unit SC HS [facility] Last Admin: 09/26/18 22:32 Dose: 24 unit Levothyroxine Sodium (Synthroid) 100 mcg PO 0630 [facility] Last Admin: 09/26/18 05:40 Dose: 100 mcg Lisinopril (Zestril) 10 mg PO DAILY [facility] Last Admin: 09/26/18 10:56 Dose: Not Given Magnesium Oxide (Mag-Ox) 400 mg PO BID [facility] Last Admin: 09/26/18 18:28 Dose: 400 mg Oxycodone/Acetaminophen (Percocet 5/325 Mg Tab) 2 tab PO Q6H PRN PRN Reason: Pain, severe (8-10) Stop: 09/27/18 23:17 Last Admin: 09/26/18 16:36 Dose: 2 tab Pantoprazole Sodium (Protonix Ec Tab) 40 mg PO DAILY [facility] Last Admin: 09/26/18 10:55 Dose: 40 mg Potassium Chloride (K-Dur 20 Meq Er Tab) 20 meq PO DAILY [facility] Last Admin: 09/26/18 10:54 Dose: 20 meq Prednisone (Prednisone Tab) 10 mg PO DAILY [facility] Last Admin: 09/26/18 10:55 Dose: 10 mg Rivaroxaban (Xarelto) 20 mg PO DAILY [facility] Last Admin: 09/26/18 10:56 Dose: 20 mg Saccharomyces Boulardii (Florastor) 250 mg PO Q12 [facility] Last Admin: 09/26/18 22:31 Dose: 250 mg Sertraline HCl (Zoloft) 50 mg PO DAILY [facility] Last Admin: 09/26/18 10:54 Dose: 50 mg Sitagliptin Phosphate (Januvia) 100 mg PO DAILY [facility] Last Admin: 09/26/18 10:54 Dose: 100 mg Trazodone HCl (Desyrel) 50 mg PO HS [facility] Last Admin: 09/26/18 22:31 Dose: 50 mg Trimethobenzamide HCl (Tigan) 200 mg IM Q8 PRN PRN Reason: Nausea/Vomiting Vitamin B Complex/Vit C/Folic Acid (Nephro-Lavinia) 1 tab PO DAILY [facility] Last Admin: 09/26/18 10:54 Dose: 1 tab - Labs Labs: 09/26/18 11:16 09/26/18 11:16 PT 22.3 SECONDS (9.7-12.2) H 09/20/18 13:45 INR 2.0 09/20/18 13:45 APTT 33 SECONDS (21-34) 09/20/18 13:45 - Head Exam Head Exam: ATRAUMATIC - Eye Exam Eye Exam: Normal appearance - ENT Exam ENT Exam: Mucous Membranes Dry - Respiratory Exam Respiratory Exam: NORMAL BREATHING PATTERN - Cardiovascular Exam Cardiovascular Exam: +S1, +S2 - GI/Abdominal Exam GI & Abdominal Exam: Normal Bowel Sounds Assessment and Plan (1) Anemia Assessment & Plan: iron deficiency anemia on IV iron transfusion support PRN Status: Acute (2) Pancreatic cancer Assessment & Plan: no evidence of distant metastasis not a current surgical candidate due to debility surgical reevaluation after rehab Status: Acute
[2018-09-27] MEDS: Levothyroxine 100 MCG TAB PO SCH (05:48)
[2018-09-27] MEDS: Fluticasone-Vilanterol 100/25mcg Diskus INH SCH (07:45)
[2018-09-27] MEDS: (Novolog) Insulin Aspart, Recombinant 100 u/ml 10 ml vial SC SCH ×7 (07:57→21:54)
[2018-09-27] MEDS: Multivitamin Vitamin B Complex (Nephro-Vite) Tab PO SCH (09:52)
[2018-09-27] MEDS: Pantoprazole 40 mg EC Tab PO SCH (09:52)
[2018-09-27] MEDS: Oxycodone/Acetaminophen 5/325 mg Tab PO PRN ×2 (09:52→20:15)
[2018-09-27] MEDS: Potassium Chloride 20 mEq ER Tab PO SCH (09:52)
[2018-09-27] MEDS: Magnesium Oxide 400 mg Tab UD PO SCH ×2 (09:53→18:33)
[2018-09-27] MEDS: diltiaZEM 180 mg/24 Hours CD Cap PO SCH ×2 (09:53→18:31)
[2018-09-27] MEDS: Ferric Sodium Gluconat Complex 62.5 mg/5 ml Vial IVPB SCH (09:54)
[2018-09-27] MEDS: Saccharomyces Boulardi 250 mg Cap PO SCH ×2 (09:55→21:54)
[2018-09-27 11:33] LABS: ALB/GLOB RATIO 1.2 (1.0-2.1); ALBUMIN 2.9 g/dL (3.5-5.0); ALT/SGPT 104 U/L (9-52); AST/SGOT 56 U/L (14-36); BLOOD UREA NITROGEN 29 mg/dL (7-17); CALCIUM 8.7 mg/dl (8.6-10.4); GFR NON-AFRICAN AMERICAN > 60
[2018-09-27] MEDS ORDERED: Magnesium Sulfate 1 gm in D5W 1 GM/100 ML BAG IVPB ONE (11:38)
--- NOTE | 2018-09-27 17:03 | CP.PCM.PN ---
Subjective - Date & Time of Evaluation Date of Evaluation: 09/27/18 Time of Evaluation: 11:00 - Subjective Subjective: patient seen and examined at bedside. Patient did not answer using words; just head nods and pointing. She denied any fever, chills, abdominal pain, nausea vomiting, changes in bowel habits or urinary symptoms. Patient did complain of SOB and asked for a BiPAP. She also complained of chest pain which she stated started today. Objective - Vital Signs/Intake and Output Vital Signs (last 24 hours): Temp Pulse Resp BP Pulse Ox 97.9 F 125 H 20 126/78 96 09/27/18 07:00 09/27/18 14:22 09/27/18 07:00 09/27/18 14:22 09/27/18 07:00 Intake and Output: 09/27/18 09/27/18 06:59 18:59 Output Total 1100 Balance -1100 - Medications Medications: Current Medications Acetaminophen (Tylenol 325mg Tab) 650 mg PO Q4 PRN PRN Reason: Pain, Mild (1-3) Last Admin: 09/24/18 20:16 Dose: 650 mg Colchicine (Colocrys) 0.6 mg PO BID [facility] Last Admin: 09/27/18 09:54 Dose: 0.6 mg Cyclobenzaprine HCl (Flexeril) 5 mg PO TID [facility] Last Admin: 09/27/18 14:36 Dose: 5 mg Dextrose (Dextrose 50% Inj) 0 ml IV STAT PRN; Protocol PRN Reason: Hypoglycemia Protocol Dextrose (Glutose 15) 0 gm PO ONCE PRN; Protocol PRN Reason: Hypoglycemia Protocol Diazepam (Valium) 5 mg PO BID [facility] Last Admin: 09/27/18 09:52 Dose: 5 mg Dicyclomine HCl (Bentyl) 20 mg PO TID [facility] Last Admin: 09/27/18 14:20 Dose: 20 mg Diltiazem HCl (Cardizem Cd) 180 mg PO BID [facility] Last Admin: 09/27/18 09:53 Dose: 180 mg Ergocalciferol (Drisdol 50,000 Intl Units Cap) 1 cap PO Q7D [facility] Last Admin: 09/20/18 22:29 Dose: Not Given Ferric Sodium Gluconate Complex (Ferrlecit) 125 mg IVPB DAILY [facility] Stop: 10/01/18 10:01 Last Admin: 09/27/18 09:54 Dose: 125 mg Ferrous Gluconate (Fergon) 324 mg PO TIDCC [facility] Last Admin: 09/27/18 12:21 Dose: 324 mg Fluticasone/Vilanterol (Breo Ellipta 100-25 Mcg Inh) 1 puff INH RQ24 [facility] Last Admin: 09/27/18 07:45 Dose: Not Given Furosemide (Lasix) 20 mg PO BID [facility] Last Admin: 09/27/18 09:53 Dose: 20 mg Gabapentin (Neurontin) 300 mg PO HS [facility] Last Admin: 09/26/18 22:31 Dose: 300 mg Glipizide (Glucotrol) 10 mg PO BID [facility] Last Admin: 09/27/18 09:51 Dose: 10 mg Glucagon (Glucagen Diagnostic Kit) 0 mg IM STAT PRN; Protocol PRN Reason: Hypoglycemia Protocol Insulin Aspart (Novolog) 0 unit SC ACHS [facility]; Protocol Last Admin: 09/27/18 12:25 Dose: 3 units Insulin Aspart (Novolog) 10 unit SC AC [facility] Last Admin: 09/27/18 12:25 Dose: 10 units Insulin Glargine (Lantus) 24 unit SC HS [facility] Last Admin: 09/26/18 22:32 Dose: 24 unit Levothyroxine Sodium (Synthroid) 100 mcg PO 0630 [facility] Last Admin: 09/27/18 05:48 Dose: 100 mcg Lisinopril (Zestril) 10 mg PO DAILY [facility] Last Admin: 09/27/18 09:52 Dose: 10 mg Magnesium Oxide (Mag-Ox) 400 mg PO BID [facility] Last Admin: 09/27/18 09:53 Dose: 400 mg Oxycodone/Acetaminophen (Percocet 5/325 Mg Tab) 2 tab PO Q6H PRN PRN Reason: Pain, severe (8-10) Stop: 09/27/18 23:17 Last Admin: 09/27/18 09:52 Dose: 2 tab Pantoprazole Sodium (Protonix Ec Tab) 40 mg PO DAILY [facility] Last Admin: 09/27/18 09:52 Dose: 40 mg Potassium Chloride (K-Dur 20 Meq Er Tab) 20 meq PO DAILY [facility] Last Admin: 09/27/18 09:52 Dose: 20 meq Prednisone (Prednisone Tab) 10 mg PO DAILY [facility] Last Admin: 09/27/18 09:53 Dose: 10 mg Rivaroxaban (Xarelto) 20 mg PO DAILY [facility] Last Admin: 09/27/18 09:56 Dose: 20 mg Saccharomyces Boulardii (Florastor) 250 mg PO Q12 [facility] Last Admin: 09/27/18 09:55 Dose: 250 mg Sertraline HCl (Zoloft) 50 mg PO DAILY [facility] Last Admin: 09/27/18 09:52 Dose: 50 mg Sitagliptin Phosphate (Januvia) 100 mg PO DAILY [facility] Last Admin: 09/27/18 09:52 Dose: 100 mg Trazodone HCl (Desyrel) 50 mg PO HS [facility] Last Admin: 09/26/18 22:31 Dose: 50 mg Trimethobenzamide HCl (Tigan) 200 mg IM Q8 PRN PRN Reason: Nausea/Vomiting Vitamin B Complex/Vit C/Folic Acid (Nephro-Lavinia) 1 tab PO DAILY [facility] Last Admin: 09/27/18 09:52 Dose: 1 tab - Labs Labs: 09/26/18 11:16 09/27/18 11:04 PT 22.3 SECONDS (9.7-12.2) H 09/20/18 13:45 INR 2.0 09/20/18 13:45 APTT 33 SECONDS (21-34) 09/20/18 13:45 - Constitutional Appears: Non-toxic, Chronically Ill - Head Exam Head Exam: ATRAUMATIC, NORMAL INSPECTION, NORMOCEPHALIC - Eye Exam Eye Exam: EOMI, Normal appearance. absent: Scleral icterus - ENT Exam ENT Exam: Mucous Membranes Moist - Neck Exam Neck Exam: Normal Inspection - Respiratory Exam Respiratory Exam: Accessory Muscle Use, Decreased Breath Sounds. absent: Wheezes, NORMAL BREATHING PATTERN - Cardiovascular Exam Cardiovascular Exam: Tachycardia, +S1, +S2. absent: RRR - GI/Abdominal Exam GI & Abdominal Exam: Soft, Normal Bowel Sounds. absent: Tenderness - Extremities Exam Extremities Exam: Normal Inspection. absent: Pedal Edema - Neurological Exam Neurological Exam: Alert, Awake - Psychiatric Exam Psychiatric exam: Normal Affect, Normal Mood - Skin Skin Exam: Dry, Intact, Normal Color, Warm Assessment and Plan - Assessment and Plan (Free Text) Assessment: 63 year old female with PMHx of COPD, Pancreatic Mass, Chronic Diastolic CHF, Hypertension, DM II, Fibromyalgia, Adrenal Insufficiency, Hypothyroidism, Hx of DVT, Gout, Depression, and Current Closed Fracture of Right proximal tibia admitted for evluation and treatment of COPD exacerbation. Hospital Course Complicated with episodes of hypotension. Plan: Hypotension (Stable) -NS bolus of 250cc ordered -Will hold BP meds at this time and observe COPD Exacerbation - Continue home medication: Breo - Duonebs Q4h prn C. Diff During Previous Admission - Completed course of Vancomycin - Repeat Cdiff negative Pancreatic Mass - Surgery consulted, Dr. Bright; help appreciated * mass appears resectable, however, patient is a not a surgical candidate at this time due to other conditions/comorbities. performance status of 4 currently would need to be improved to 2 for surgical consideration - CEA: 42.5 - CA19-9: 1980 - CA125: 36.2 - Abdomen/Pelvic CT: Heterogeneous hyperdense pancreatic mass measuring approximately 2.7 x 2.5 cm at the pancreatic body/tail. Ectatic dilated pancreatic duct. Additional cystic heterogeneous focus measuring approximately 15 x 14 mm is noted at the superior aspect of the pancreas. Appearance worrisome for malignant neoplasm. Wall thickening involving the 2nd portion of the duodenum of uncertain significance; considerations include infectious, inflammatory, or malignant etiologies. Correlate clinically and recommend further evaluation with direct visualization if indicated. Small pelvic free fluid. Tachycardia - Cardiology consulted, Dr. Pineda; help appreciated - Cardizem to 180mg PO BID (from 120mg, per Dr. Pineda) - Will continue to monitor Chronic Diastolic Congestive Heart Failure - Stable - Last echo 2016 showed Grade III reversible restrictive diastolic dysfunction, EF 55% - Lasix 20mg PO BID Hypertension - Home medications: * Lisinopril 10mg PO daily (held) * Cardizem 180mg PO BID (held) Diabetes Mellitus - Accuchecks, Hypoglycemia protocol - HgA1c 9.3 (01/2018); repeat A1c 9.0 - Insulin sliding scale - medium - Continue home medications: Januvia 100 mg PO daily, Glipizide 10mg PO BID, Gabapentin 300mg PO HS - Novolog 10 u SC AC - Lantus 24 units HS - Endocrinology consult. Dr Cam. chu appreciated. Fibromyalgia - Home medication: Diazepam 5mg PO BID - Flexeril 5mg PO TID (Holding parameters- hold if sleeping/sedated, hypotension) - Percocet 5/325mg 2 tab Q6H prn for pain - Gabapentin 300mg PO HS Adrenal Insufficiency - On prednisone 10mg PO daily Hypothyroidism - Continue Synthroid 100mcg PO daily - TSH/Free T4: 9.5/0.30 Hypokalemia -repleted -continue to monitor and replete as needed History of DVT/PE - Continue Xarelto 20mg PO daily Gout - Continue Colchicine Depression - Consulted psychiatry, Dr. Dexter, recs appreciated. - Per psychiatry, Started zoloft 50mg po daily (consider tapering up to 100mg), trazodone 50mg po hs - Valium 5mg po bid Closed fracture of right proximal tibia - Orthopedic surgery consulted, Dr. Hernandez; help appreciated - Per ortho: continue well padded knee immobilizer; non operative; recommends PT/OT, NWB, VTE proph, and to f/u with Dr. Hernandez 1-2 weeks upon d/c Prophylactic Measures - Protonix 40mg PO daily, Probiotics - Xarelto 20mg PO daily - PT/OT - Palliative care consulted to discuss goals of care - Case management consulted for discharge planning to [facility] Disposition: Palliative consulted for code status and possible home hospice evaluation, pending family meeting with Palliative and Dr. Valle. PT recom ends [facility]. Will begin discharge planning. Plan discussed with Dr Nenita Kong DO PGY-2
[2018-09-27] MEDS: Ergocalciferol 50,000 Intl Units Cap PO SCH (20:16)
--- NOTE | 2018-09-27 20:16 | CP.PCM.PN ---
Subjective - Date & Time of Evaluation Date of Evaluation: 09/27/18 Time of Evaluation: 19:00 - Subjective Subjective: No complaints. Objective - Vital Signs/Intake and Output Vital Signs (last 24 hours): Temp Pulse Resp BP Pulse Ox 98 F 118 H 20 133/70 91 L 09/27/18 15:35 09/27/18 18:00 09/27/18 15:35 09/27/18 18:32 09/27/18 15:35 - Medications Medications: Current Medications Acetaminophen (Tylenol 325mg Tab) 650 mg PO Q4 PRN PRN Reason: Pain, Mild (1-3) Last Admin: 09/24/18 20:16 Dose: 650 mg Colchicine (Colocrys) 0.6 mg PO BID [facility] Last Admin: 09/27/18 18:32 Dose: 0.6 mg Cyclobenzaprine HCl (Flexeril) 5 mg PO TID [facility] Last Admin: 09/27/18 18:32 Dose: 5 mg Dextrose (Dextrose 50% Inj) 0 ml IV STAT PRN; Protocol PRN Reason: Hypoglycemia Protocol Dextrose (Glutose 15) 0 gm PO ONCE PRN; Protocol PRN Reason: Hypoglycemia Protocol Diazepam (Valium) 5 mg PO BID [facility] Last Admin: 09/27/18 18:34 Dose: 5 mg Dicyclomine HCl (Bentyl) 20 mg PO TID [facility] Last Admin: 09/27/18 18:31 Dose: 20 mg Diltiazem HCl (Cardizem Cd) 180 mg PO BID [facility] Last Admin: 09/27/18 18:31 Dose: 180 mg Ergocalciferol (Drisdol 50,000 Intl Units Cap) 1 cap PO Q7D [facility] Last Admin: 09/20/18 22:29 Dose: Not Given Ferric Sodium Gluconate Complex (Ferrlecit) 125 mg IVPB DAILY [facility] Stop: 10/01/18 10:01 Last Admin: 09/27/18 09:54 Dose: 125 mg Ferrous Gluconate (Fergon) 324 mg PO TIDCC [facility] Last Admin: 09/27/18 18:32 Dose: 324 mg Fluticasone/Vilanterol (Breo Ellipta 100-25 Mcg Inh) 1 puff INH RQ24 [facility] Last Admin: 09/27/18 07:45 Dose: Not Given Furosemide (Lasix) 20 mg PO BID [facility] Last Admin: 09/27/18 18:32 Dose: 20 mg Gabapentin (Neurontin) 300 mg PO HS [facility] Last Admin: 09/26/18 22:31 Dose: 300 mg Glipizide (Glucotrol) 10 mg PO BID [facility] Last Admin: 09/27/18 18:32 Dose: 10 mg Glucagon (Glucagen Diagnostic Kit) 0 mg IM STAT PRN; Protocol PRN Reason: Hypoglycemia Protocol Insulin Aspart (Novolog) 0 unit SC ACHS [facility]; Protocol Last Admin: 09/27/18 18:33 Dose: Not Given Insulin Aspart (Novolog) 10 unit SC AC [facility] Last Admin: 09/27/18 18:33 Dose: 10 units Insulin Glargine (Lantus) 24 unit SC HS [facility] Last Admin: 09/26/18 22:32 Dose: 24 unit Levothyroxine Sodium (Synthroid) 100 mcg PO 0630 [facility] Last Admin: 09/27/18 05:48 Dose: 100 mcg Lisinopril (Zestril) 10 mg PO DAILY [facility] Last Admin: 09/27/18 09:52 Dose: 10 mg Magnesium Oxide (Mag-Ox) 400 mg PO BID [facility] Last Admin: 09/27/18 18:33 Dose: 400 mg Oxycodone/Acetaminophen (Percocet 5/325 Mg Tab) 2 tab PO Q6H PRN PRN Reason: Pain, severe (8-10) Stop: 09/27/18 23:17 Last Admin: 09/27/18 09:52 Dose: 2 tab Pantoprazole Sodium (Protonix Ec Tab) 40 mg PO DAILY [facility] Last Admin: 09/27/18 09:52 Dose: 40 mg Potassium Chloride (K-Dur 20 Meq Er Tab) 20 meq PO DAILY [facility] Last Admin: 09/27/18 09:52 Dose: 20 meq Prednisone (Prednisone Tab) 10 mg PO DAILY [facility] Last Admin: 09/27/18 09:53 Dose: 10 mg Rivaroxaban (Xarelto) 20 mg PO DAILY [facility] Last Admin: 09/27/18 09:56 Dose: 20 mg Saccharomyces Boulardii (Florastor) 250 mg PO Q12 [facility] Last Admin: 09/27/18 09:55 Dose: 250 mg Sertraline HCl (Zoloft) 50 mg PO DAILY [facility] Last Admin: 09/27/18 09:52 Dose: 50 mg Sitagliptin Phosphate (Januvia) 100 mg PO DAILY [facility] Last Admin: 09/27/18 09:52 Dose: 100 mg Trazodone HCl (Desyrel) 50 mg PO HS [facility] Last Admin: 09/26/18 22:31 Dose: 50 mg Trimethobenzamide HCl (Tigan) 200 mg IM Q8 PRN PRN Reason: Nausea/Vomiting Vitamin B Complex/Vit C/Folic Acid (Nephro-Lavinia) 1 tab PO DAILY [facility] Last Admin: 09/27/18 09:52 Dose: 1 tab - Labs Labs: 09/26/18 11:16 09/27/18 11:04 PT 22.3 SECONDS (9.7-12.2) H 09/20/18 13:45 INR 2.0 09/20/18 13:45 APTT 33 SECONDS (21-34) 09/20/18 13:45 - Head Exam Head Exam: ATRAUMATIC - Eye Exam Eye Exam: Normal appearance - ENT Exam ENT Exam: Mucous Membranes Dry - Respiratory Exam Respiratory Exam: NORMAL BREATHING PATTERN - Cardiovascular Exam Cardiovascular Exam: +S1, +S2 - GI/Abdominal Exam GI & Abdominal Exam: Normal Bowel Sounds Assessment and Plan (1) Anemia Assessment & Plan: iron deficiency anemia on IV iron transfusion support PRN Status: Acute (2) Pancreatic cancer Assessment & Plan: no evidence of distant metastasis not a current surgical candidate due to debility surgical reevaluation after rehab Status: Acute
[2018-09-27] MEDS: (Lantus) Insulin Glargine, Recombinant SC SCH (21:54)
[2018-09-28] MEDS: Levothyroxine 100 MCG TAB PO SCH (05:58)
[2018-09-28 07:56] LABS: BASO # 0.1 K/uL (0.0-0.2); BASO % 0.6 % (0.0-2.0); EOS # 0.2 K/uL (0.0-0.7); EOS % 1.6 % (0.0-4.0); HEMOGLOBIN 9.4 g/dL (11.0-16.0); LYMPH # 1.8 K/uL (1.0-4.3); LYMPH % 17.1 % (20.0-40.0); MEAN CELL VOLUME 76.8 fL (81.0-99.0); MEAN CORPUSCULAR HEMOGLOBIN 23.2 pg (27.0-31.0); MEAN CORPUSCULAR HGB CONC 30.2 g/dL (33.0-37.0); MEAN PLATELET VOLUME 8.6 fL (7.2-11.7); MONO # 0.9 K/uL (0.0-0.8); NEUT # 7.8 K/uL (1.8-7.0); NEUT % 72.7 % (50.0-75.0); NRBC % 0.1 % (0.0-2.0); RBC 4.03 Mil/uL (3.80-5.20); RED CELL DISTRIBUTION WIDTH 21.1 % (11.5-14.5); WHITE BLOOD COUNT 10.7 K/uL (4.8-10.8)
[2018-09-28] MEDS: Fluticasone-Vilanterol 100/25mcg Diskus INH SCH (08:00)
[2018-09-28 08:11] LABS: ALB/GLOB RATIO 1.3 (1.0-2.1); ALBUMIN 3.2 g/dL (3.5-5.0); ALT/SGPT 105 U/L (9-52); AST/SGOT 68 U/L (14-36); BLOOD UREA NITROGEN 30 mg/dL (7-17); CALCIUM 9.1 mg/dl (8.6-10.4); GFR NON-AFRICAN AMERICAN 50
--- NOTE | 2018-09-28 08:13 | CP.PCM.PN ---
Subjective - Date & Time of Evaluation Date of Evaluation: 09/28/18 Time of Evaluation: 08:12 - Subjective Subjective: Medicine Progress Note - Dr Gutierres's service Patient seen and examined at bedside. Patient was complaining of chest pain yesterday. EKG was unchanged, troponin was negative. Patient offers no complaints at this time. Objective - Vital Signs/Intake and Output Vital Signs (last 24 hours): Temp Pulse Resp BP Pulse Ox 97.9 F 118 H 18 126/66 97 09/28/18 07:00 09/28/18 07:00 09/28/18 07:00 09/28/18 07:00 09/28/18 07:00 Intake and Output: 09/28/18 09/28/18 06:59 18:59 Output Total 1300 Balance -1300 - Medications Medications: Current Medications Acetaminophen (Tylenol 325mg Tab) 650 mg PO Q4 PRN PRN Reason: Pain, Mild (1-3) Last Admin: 09/24/18 20:16 Dose: 650 mg Colchicine (Colocrys) 0.6 mg PO BID [facility] Last Admin: 09/27/18 18:32 Dose: 0.6 mg Cyclobenzaprine HCl (Flexeril) 5 mg PO TID [facility] Last Admin: 09/27/18 18:32 Dose: 5 mg Dextrose (Dextrose 50% Inj) 0 ml IV STAT PRN; Protocol PRN Reason: Hypoglycemia Protocol Dextrose (Glutose 15) 0 gm PO ONCE PRN; Protocol PRN Reason: Hypoglycemia Protocol Diazepam (Valium) 5 mg PO BID [facility] Last Admin: 09/27/18 18:34 Dose: 5 mg Dicyclomine HCl (Bentyl) 20 mg PO TID [facility] Last Admin: 09/27/18 18:31 Dose: 20 mg Diltiazem HCl (Cardizem Cd) 180 mg PO BID [facility] Last Admin: 09/27/18 18:31 Dose: 180 mg Ergocalciferol (Drisdol 50,000 Intl Units Cap) 1 cap PO Q7D [facility] Last Admin: 09/27/18 20:16 Dose: 1 cap Ferric Sodium Gluconate Complex (Ferrlecit) 125 mg IVPB DAILY [facility] Stop: 10/01/18 10:01 Last Admin: 09/27/18 09:54 Dose: 125 mg Ferrous Gluconate (Fergon) 324 mg PO TIDCC [facility] Last Admin: 09/27/18 18:32 Dose: 324 mg Fluticasone/Vilanterol (Breo Ellipta 100-25 Mcg Inh) 1 puff INH RQ24 [facility] Last Admin: 09/27/18 07:45 Dose: Not Given Furosemide (Lasix) 20 mg PO BID [facility] Last Admin: 09/27/18 18:32 Dose: 20 mg Gabapentin (Neurontin) 300 mg PO HS [facility] Last Admin: 09/27/18 21:54 Dose: 300 mg Glipizide (Glucotrol) 10 mg PO BID [facility] Last Admin: 09/27/18 18:32 Dose: 10 mg Glucagon (Glucagen Diagnostic Kit) 0 mg IM STAT PRN; Protocol PRN Reason: Hypoglycemia Protocol Insulin Aspart (Novolog) 0 unit SC ACHS [facility]; Protocol Last Admin: 09/27/18 21:54 Dose: 3 units Insulin Aspart (Novolog) 10 unit SC AC [facility] Last Admin: 09/27/18 18:33 Dose: 10 units Insulin Glargine (Lantus) 24 unit SC HS [facility] Last Admin: 09/27/18 21:54 Dose: 24 unit Levothyroxine Sodium (Synthroid) 100 mcg PO 0630 [facility] Last Admin: 09/28/18 05:58 Dose: 100 mcg Lisinopril (Zestril) 10 mg PO DAILY [facility] Last Admin: 09/27/18 09:52 Dose: 10 mg Magnesium Oxide (Mag-Ox) 400 mg PO BID [facility] Last Admin: 09/27/18 18:33 Dose: 400 mg Pantoprazole Sodium (Protonix Ec Tab) 40 mg PO DAILY [facility] Last Admin: 09/27/18 09:52 Dose: 40 mg Potassium Chloride (K-Dur 20 Meq Er Tab) 20 meq PO DAILY [facility] Last Admin: 09/27/18 09:52 Dose: 20 meq Prednisone (Prednisone Tab) 10 mg PO DAILY [facility] Last Admin: 09/27/18 09:53 Dose: 10 mg Rivaroxaban (Xarelto) 20 mg PO DAILY [facility] Last Admin: 09/27/18 09:56 Dose: 20 mg Saccharomyces Boulardii (Florastor) 250 mg PO Q12 [facility] Last Admin: 09/27/18 21:54 Dose: 250 mg Sertraline HCl (Zoloft) 50 mg PO DAILY [facility] Last Admin: 09/27/18 09:52 Dose: 50 mg Sitagliptin Phosphate (Januvia) 100 mg PO DAILY [facility] Last Admin: 09/27/18 09:52 Dose: 100 mg Trazodone HCl (Desyrel) 50 mg PO HS [facility] Last Admin: 09/27/18 21:54 Dose: 50 mg Trimethobenzamide HCl (Tigan) 200 mg IM Q8 PRN PRN Reason: Nausea/Vomiting Vitamin B Complex/Vit C/Folic Acid (Nephro-Lavinia) 1 tab PO DAILY [facility] Last Admin: 09/27/18 09:52 Dose: 1 tab - Labs Labs: 09/28/18 07:45 09/28/18 07:45 PT 22.3 SECONDS (9.7-12.2) H 09/20/18 13:45 INR 2.0 09/20/18 13:45 APTT 33 SECONDS (21-34) 09/20/18 13:45 - Additional Findings Additional findings: - Constitutional Appears: Non-toxic, Chronically Ill - Head Exam Head Exam: ATRAUMATIC, NORMAL INSPECTION, NORMOCEPHALIC - Eye Exam Eye Exam: EOMI, Normal appearance. absent: Scleral icterus - ENT Exam ENT Exam: Mucous Membranes Moist - Neck Exam Neck Exam: Normal Inspection - Respiratory Exam Respiratory Exam: Accessory Muscle Use, Decreased Breath Sounds. absent: Wheezes, NORMAL BREATHING PATTERN - Cardiovascular Exam Cardiovascular Exam: Tachycardia, +S1, +S2. absent: RRR - GI/Abdominal Exam GI & Abdominal Exam: Soft, Normal Bowel Sounds. absent: Tenderness - Extremities Exam Extremities Exam: Normal Inspection. absent: Pedal Edema - Neurological Exam Neurological Exam: Alert, Awake - Psychiatric Exam Psychiatric exam: Normal Affect, Normal Mood - Skin Skin Exam: Dry, Intact, Normal Color, Warm Assessment and Plan - Assessment and Plan (Free Text) Assessment: 63 year old female with PMHx of COPD, Pancreatic Mass, Chronic Diastolic CHF, Hypertension, DM II, Fibromyalgia, Adrenal Insufficiency, Hypothyroidism, Hx of DVT, Gout, Depression, and Current Closed Fracture of Right proximal tibia admitted for evluation and treatment of COPD exacerbation. Hospital Course Complicated with episodes of hypotension. Plan: Hypotension (Stable) -BPs have improverd COPD Exacerbation - Continue home medication: Breo - Duonebs Q4h prn C. Diff During Previous Admission - Completed course of Vancomycin - Repeat Cdiff negative Pancreatic Mass - Surgery consulted, Dr. Bright; help appreciated * mass appears resectable, however, patient is a not a surgical candidate at this time due to other conditions/comorbities. performance status of 4 currently would need to be improved to 2 for surgical consideration - CEA: 42.5 - CA19-9: 1980 - CA125: 36.2 - Abdomen/Pelvic CT: Heterogeneous hyperdense pancreatic mass measuring approximately 2.7 x 2.5 cm at the pancreatic body/tail. Ectatic dilated pancreatic duct. Additional cystic heterogeneous focus measuring approximately 15 x 14 mm is noted at the superior aspect of the pancreas. Appearance worrisome for malignant neoplasm. Wall thickening involving the 2nd portion of the duodenum of uncertain significance; considerations include infectious, inflammatory, or malignant etiologies. Correlate clinically and recommend further evaluation with direct visualization if indicated. Small pelvic free fluid. Tachycardia - Cardiology consulted, Dr. Pineda; help appreciated - Cardizem to 180mg PO BID (from 120mg, per Dr. Pineda) - Will continue to monitor Chronic Diastolic Congestive Heart Failure - Stable - Last echo 2016 showed Grade III reversible restrictive diastolic dysfunction, EF 55% - Lasix 20mg PO BID Hypertension - Home medications: * Lisinopril 10mg PO daily (held) * Cardizem 180mg PO BID (held) Diabetes Mellitus - Accuchecks, Hypoglycemia protocol - HgA1c 9.3 (01/2018); repeat A1c 9.0 - Insulin sliding scale - medium - Continue home medications: Januvia 100 mg PO daily, Glipizide 10mg PO BID, Gabapentin 300mg PO HS - Novolog 10 u SC AC - Lantus 24 units HS - Endocrinology consult. Dr Cam. chu appreciated. Fibromyalgia - Home medication: Diazepam 5mg PO BID - Flexeril 5mg PO TID (Holding parameters- hold if sleeping/sedated, hypotension) - Percocet 5/325mg 2 tab Q6H prn for pain - Gabapentin 300mg PO HS Adrenal Insufficiency - On prednisone 10mg PO daily Hypothyroidism - Continue Synthroid 100mcg PO daily - TSH/Free T4: 9.5/0.30 Hypokalemia -repleted -continue to monitor and replete as needed History of DVT/PE - Continue Xarelto 20mg PO daily Gout - Continue Colchicine Depression - Consulted psychiatry, Dr. Dexter, recs appreciated. - Per psychiatry, Started zoloft 50mg po daily (consider tapering up to 100mg), trazodone 50mg po hs - Valium 5mg po bid Closed fracture of right proximal tibia - Orthopedic surgery consulted, Dr. Hernandez; help appreciated - Per ortho: continue well padded knee immobilizer; non operative; recommends PT/OT, NWB, VTE proph, and to f/u with Dr. Hernandez 1-2 weeks upon d/c Prophylactic Measures - Protonix 40mg PO daily, Probiotics - Xarelto 20mg PO daily - PT/OT - Palliative care consulted to discuss goals of care - Case management consulted for discharge planning to [facility] Disposition: Palliative consulted for code status and possible home hospice evaluation, pending family meeting with Palliative and Dr. Valle. PT recommends [facility]. Plan discussed with Dr Nenita Cortez DO PGY-2
[2018-09-28] MEDS: (Novolog) Insulin Aspart, Recombinant 100 u/ml 10 ml vial SC SCH ×7 (08:29→21:35)
[2018-09-28] MEDS: Saccharomyces Boulardi 250 mg Cap PO SCH ×2 (10:18→21:58)
[2018-09-28] MEDS: Multivitamin Vitamin B Complex (Nephro-Vite) Tab PO SCH (10:18)
[2018-09-28] MEDS: diltiaZEM 180 mg/24 Hours CD Cap PO SCH ×2 (10:18→18:44)
[2018-09-28] MEDS: Pantoprazole 40 mg EC Tab PO SCH (10:19)
[2018-09-28] MEDS: Potassium Chloride 20 mEq ER Tab PO SCH (10:19)
[2018-09-28] MEDS: Magnesium Oxide 400 mg Tab UD PO SCH ×2 (10:19→18:45)
[2018-09-28] MEDS: Ferric Sodium Gluconat Complex 62.5 mg/5 ml Vial IVPB SCH (10:20)
[2018-09-28] MEDS: Oxycodone/Acetaminophen 5/325 mg Tab PO PRN (17:31)
--- NOTE | 2018-09-28 18:37 | CARD ---
APPROVED REPORT Date of service: 09/27/2018 EKG Measurement Heart [id number] <Conclusion> Sinus tachycardia with premature atrial complexes Low voltage QRS Borderline ECG
[2018-09-28] MEDS: (Lantus) Insulin Glargine, Recombinant SC SCH (21:59)
--- NOTE | 2018-09-28 22:44 | CP.PCM.PN ---
Subjective - Date & Time of Evaluation Date of Evaluation: 09/28/18 Time of Evaluation: 19:00 - Subjective Subjective: No complaints. Objective - Vital Signs/Intake and Output Vital Signs (last 24 hours): Temp Pulse Resp BP Pulse Ox 98.2 F 113 H 20 103/60 95 09/28/18 16:55 09/28/18 16:55 09/28/18 16:55 09/28/18 18:45 09/28/18 16:55 Intake and Output: 09/28/18 09/29/18 18:59 06:59 Intake Total 300 Output Total 1200 Balance -900 - Medications Medications: Current Medications Acetaminophen (Tylenol 325mg Tab) 650 mg PO Q4 PRN PRN Reason: Pain, Mild (1-3) Last Admin: 09/24/18 20:16 Dose: 650 mg Colchicine (Colocrys) 0.6 mg PO BID [facility] Last Admin: 09/28/18 18:54 Dose: 0.6 mg Cyclobenzaprine HCl (Flexeril) 5 mg PO TID [facility] Last Admin: 09/28/18 18:47 Dose: 5 mg Dextrose (Dextrose 50% Inj) 0 ml IV STAT PRN; Protocol PRN Reason: Hypoglycemia Protocol Dextrose (Glutose 15) 0 gm PO ONCE PRN; Protocol PRN Reason: Hypoglycemia Protocol Diazepam (Valium) 5 mg PO BID [facility] Last Admin: 09/28/18 18:46 Dose: 5 mg Dicyclomine HCl (Bentyl) 20 mg PO TID [facility] Last Admin: 09/28/18 18:49 Dose: 20 mg Diltiazem HCl (Cardizem Cd) 180 mg PO BID [facility] Last Admin: 09/28/18 18:44 Dose: 180 mg Ergocalciferol (Drisdol 50,000 Intl Units Cap) 1 cap PO Q7D [facility] Last Admin: 09/27/18 20:16 Dose: 1 cap Ferric Sodium Gluconate Complex (Ferrlecit) 125 mg IVPB DAILY [facility] Stop: 10/01/18 10:01 Last Admin: 09/28/18 10:20 Dose: 125 mg Ferrous Gluconate (Fergon) 324 mg PO TIDCC [facility] Last Admin: 09/28/18 17:30 Dose: 324 mg Fluticasone/Vilanterol (Breo Ellipta 100-25 Mcg Inh) 1 puff INH RQ24 [facility] Last Admin: 09/28/18 08:00 Dose: Not Given Furosemide (Lasix) 20 mg PO BID [facility] Last Admin: 09/28/18 18:45 Dose: 20 mg Gabapentin (Neurontin) 300 mg PO HS [facility] Last Admin: 09/28/18 22:01 Dose: 300 mg Glipizide (Glucotrol) 10 mg PO BID [facility] Last Admin: 09/28/18 18:58 Dose: 10 mg Glucagon (Glucagen Diagnostic Kit) 0 mg IM STAT PRN; Protocol PRN Reason: Hypoglycemia Protocol Insulin Aspart (Novolog) 0 unit SC ACHS [facility]; Protocol Last Admin: 09/28/18 21:35 Dose: Not Given Insulin Aspart (Novolog) 10 unit SC AC [facility] Last Admin: 09/28/18 18:44 Dose: 10 units Insulin Glargine (Lantus) 24 unit SC HS [facility] Last Admin: 09/28/18 21:59 Dose: 24 unit Levothyroxine Sodium (Synthroid) 100 mcg PO 0630 [facility] Last Admin: 09/28/18 05:58 Dose: 100 mcg Lisinopril (Zestril) 10 mg PO DAILY [facility] Last Admin: 09/28/18 10:19 Dose: 10 mg Magnesium Oxide (Mag-Ox) 400 mg PO BID [facility] Last Admin: 09/28/18 18:45 Dose: 400 mg Oxycodone/Acetaminophen (Percocet 5/325 Mg Tab) 2 tab PO Q6H PRN PRN Reason: Pain, severe (8-10) Stop: 10/01/18 15:15 Last Admin: 09/28/18 17:31 Dose: 2 tab Pantoprazole Sodium (Protonix Ec Tab) 40 mg PO DAILY [facility] Last Admin: 09/28/18 10:19 Dose: 40 mg Potassium Chloride (K-Dur 20 Meq Er Tab) 20 meq PO DAILY [facility] Last Admin: 09/28/18 10:19 Dose: 20 meq Prednisone (Prednisone Tab) 10 mg PO DAILY [facility] Last Admin: 09/28/18 10:30 Dose: 10 mg Rivaroxaban (Xarelto) 20 mg PO DAILY [facility] Last Admin: 09/28/18 10:22 Dose: 20 mg Saccharomyces Boulardii (Florastor) 250 mg PO Q12 [facility] Last Admin: 09/28/18 21:58 Dose: 250 mg Sertraline HCl (Zoloft) 50 mg PO DAILY [facility] Last Admin: 09/28/18 10:18 Dose: 50 mg Sitagliptin Phosphate (Januvia) 100 mg PO DAILY [facility] Last Admin: 09/28/18 10:18 Dose: 100 mg Trazodone HCl (Desyrel) 50 mg PO HS [facility] Last Admin: 09/28/18 21:58 Dose: 50 mg Trimethobenzamide HCl (Tigan) 200 mg IM Q8 PRN PRN Reason: Nausea/Vomiting Vitamin B Complex/Vit C/Folic Acid (Nephro-Lavinia) 1 tab PO DAILY [facility] Last Admin: 09/28/18 10:18 Dose: 1 tab - Labs Labs: 09/28/18 07:45 09/28/18 07:45 PT 22.3 SECONDS (9.7-12.2) H 09/20/18 13:45 INR 2.0 09/20/18 13:45 APTT 33 SECONDS (21-34) 09/20/18 13:45 - Head Exam Head Exam: ATRAUMATIC - Eye Exam Eye Exam: Normal appearance - ENT Exam ENT Exam: Mucous Membranes Dry - Respiratory Exam Respiratory Exam: NORMAL BREATHING PATTERN - Cardiovascular Exam Cardiovascular Exam: +S1, +S2 - GI/Abdominal Exam GI & Abdominal Exam: Normal Bowel Sounds Assessment and Plan (1) Anemia Assessment & Plan: iron deficiency anemia on IV iron transfusion support PRN Status: Acute (2) Pancreatic cancer Assessment & Plan: no evidence of distant metastasis not a current surgical candidate due to debility surgical reevaluation after rehab Status: Acute
[2018-09-29] MEDS: Levothyroxine 100 MCG TAB PO SCH (06:17)
[2018-09-29] MEDS: Fluticasone-Vilanterol 100/25mcg Diskus INH SCH (07:40)
[2018-09-29] MEDS: (Novolog) Insulin Aspart, Recombinant 100 u/ml 10 ml vial SC SCH ×7 (07:42→22:33)
[2018-09-29 08:57] LABS: BASO # 0.1 K/uL (0.0-0.2); BASO % 0.8 % (0.0-2.0); EOS # 0.3 K/uL (0.0-0.7); HEMOGLOBIN 9.6 g/dL (11.0-16.0); LYMPH # 3.1 K/uL (1.0-4.3); LYMPH % 24.9 % (20.0-40.0); MEAN CELL VOLUME 76.7 fL (81.0-99.0); MEAN CORPUSCULAR HEMOGLOBIN 23.3 pg (27.0-31.0); MEAN CORPUSCULAR HGB CONC 30.4 g/dL (33.0-37.0); MONO # 1.1 K/uL (0.0-0.8); MONO % 9.1 % (0.0-10.0); NEUT % 63.2 % (50.0-75.0); NRBC % 0.1 % (0.0-2.0); RBC 4.13 Mil/uL (3.80-5.20); RED CELL DISTRIBUTION WIDTH 21.4 % (11.5-14.5); WHITE BLOOD COUNT 12.6 K/uL (4.8-10.8)
[2018-09-29] MEDS: Ferric Sodium Gluconat Complex 62.5 mg/5 ml Vial IVPB SCH (09:03)
[2018-09-29] MEDS: Pantoprazole 40 mg EC Tab PO SCH (09:04)
[2018-09-29] MEDS: Saccharomyces Boulardi 250 mg Cap PO SCH ×2 (09:04→21:45)
[2018-09-29] MEDS: Magnesium Oxide 400 mg Tab UD PO SCH ×2 (09:04→17:37)
[2018-09-29] MEDS: Multivitamin Vitamin B Complex (Nephro-Vite) Tab PO SCH (09:05)
[2018-09-29] MEDS: Potassium Chloride 20 mEq ER Tab PO SCH (09:05)
[2018-09-29] MEDS: diltiaZEM 180 mg/24 Hours CD Cap PO SCH ×2 (09:05→17:36)
[2018-09-29 09:11] LABS: ALB/GLOB RATIO 1.3 (1.0-2.1); ALBUMIN 3.4 g/dL (3.5-5.0); ALT/SGPT 113 U/L (9-52); AST/SGOT 62 U/L (14-36); BLOOD UREA NITROGEN 30 mg/dL (7-17); CALCIUM 9.1 mg/dl (8.6-10.4); GFR NON-AFRICAN AMERICAN > 60
[2018-09-29] MEDS ORDERED: Sodium Chloride 0.9% 1,000 ML IV ONE (09:15)
[2018-09-29 14:46] LABS: SQUAMOUS EPITHIAL 1 /hpf (0-5); URINE BACTERIA RARE (<OCC); URINE BILIRUBIN NEGATIVE (NEGATIVE); URINE BLOOD NEGATIVE (NEGATIVE); URINE CLARITY Hazy (Clear); URINE COLOR Yellow (YELLOW); URINE GLUCOSE (UA) NORMAL (Normal); URINE LEUKOCYTE ESTERASE 1+ Leu/uL (Negative); URINE PROTEIN NEGATIVE (NEGATIVE); URINE UROBILINOGEN NORMAL mg/dL (0.2-1.0)
--- NOTE | 2018-09-29 16:18 | CP.PCM.PN ---
Subjective - Date & Time of Evaluation Date of Evaluation: 09/29/18 Time of Evaluation: 10:25 - Subjective Subjective: Patient seen and examined at bedside. Breathing has improved. she denies any chest pain. 12 point review of systems preformed and negative unless otherwise stated. Objective - Vital Signs/Intake and Output Vital Signs (last 24 hours): Temp Pulse Resp BP Pulse Ox 97.9 F 131 H 20 97/67 L 95 09/29/18 08:41 09/29/18 08:41 09/29/18 08:41 09/29/18 09:05 09/29/18 08:41 Intake and Output: 09/29/18 09/29/18 06:59 18:59 Intake Total 340 350 Output Total 250 300 Balance 90 50 - Medications Medications: Current Medications Acetaminophen (Tylenol 325mg Tab) 650 mg PO Q4 PRN PRN Reason: Pain, Mild (1-3) Last Admin: 09/29/18 12:10 Dose: 650 mg Colchicine (Colocrys) 0.6 mg PO BID [facility] Last Admin: 09/29/18 09:07 Dose: 0.6 mg Cyclobenzaprine HCl (Flexeril) 5 mg PO TID [facility] Last Admin: 09/29/18 14:04 Dose: 5 mg Dextrose (Dextrose 50% Inj) 0 ml IV STAT PRN; Protocol PRN Reason: Hypoglycemia Protocol Dextrose (Glutose 15) 0 gm PO ONCE PRN; Protocol PRN Reason: Hypoglycemia Protocol Diazepam (Valium) 5 mg PO BID [facility] Last Admin: 09/29/18 09:04 Dose: 5 mg Dicyclomine HCl (Bentyl) 20 mg PO TID [facility] Last Admin: 09/29/18 14:04 Dose: 20 mg Diltiazem HCl (Cardizem Cd) 180 mg PO BID [facility] Last Admin: 09/29/18 09:05 Dose: 180 mg Ergocalciferol (Drisdol 50,000 Intl Units Cap) 1 cap PO Q7D [facility] Last Admin: 09/27/18 20:16 Dose: 1 cap Ferric Sodium Gluconate Complex (Ferrlecit) 125 mg IVPB DAILY [facility] Stop: 10/01/18 10:01 Last Admin: 09/29/18 09:03 Dose: 125 mg Ferrous Gluconate (Fergon) 324 mg PO TIDCC [facility] Last Admin: 09/29/18 12:20 Dose: 324 mg Fluticasone/Vilanterol (Breo Ellipta 100-25 Mcg Inh) 1 puff INH RQ24 [facility] Last Admin: 09/29/18 07:40 Dose: Not Given Furosemide (Lasix) 20 mg PO BID [facility] Last Admin: 09/29/18 09:05 Dose: Not Given Gabapentin (Neurontin) 300 mg PO HS [facility] Last Admin: 09/28/18 22:01 Dose: 300 mg Glipizide (Glucotrol) 10 mg PO BID [facility] Last Admin: 09/29/18 09:05 Dose: 10 mg Glucagon (Glucagen Diagnostic Kit) 0 mg IM STAT PRN; Protocol PRN Reason: Hypoglycemia Protocol Insulin Aspart (Novolog) 0 unit SC ACHS [facility]; Protocol Last Admin: 09/29/18 12:10 Dose: 2 units Insulin Aspart (Novolog) 10 unit SC AC [facility] Last Admin: 09/29/18 12:17 Dose: Not Given Insulin Glargine (Lantus) 24 unit SC HS [facility] Last Admin: 09/28/18 21:59 Dose: 24 unit Levothyroxine Sodium (Synthroid) 100 mcg PO 0630 [facility] Last Admin: 09/29/18 06:17 Dose: 100 mcg Lisinopril (Zestril) 10 mg PO DAILY [facility] Last Admin: 09/29/18 09:03 Dose: 10 mg Magnesium Oxide (Mag-Ox) 400 mg PO BID [facility] Last Admin: 09/29/18 09:04 Dose: 400 mg Oxycodone/Acetaminophen (Percocet 5/325 Mg Tab) 2 tab PO Q6H PRN PRN Reason: Pain, severe (8-10) Stop: 10/01/18 15:15 Last Admin: 09/28/18 17:31 Dose: 2 tab Pantoprazole Sodium (Protonix Ec Tab) 40 mg PO DAILY [facility] Last Admin: 09/29/18 09:04 Dose: 40 mg Potassium Chloride (K-Dur 20 Meq Er Tab) 20 meq PO DAILY [facility] Last Admin: 09/29/18 09:05 Dose: 20 meq Prednisone (Prednisone Tab) 10 mg PO DAILY [facility] Last Admin: 09/29/18 09:04 Dose: 10 mg Rivaroxaban (Xarelto) 20 mg PO DAILY [facility] Last Admin: 09/29/18 09:06 Dose: 20 mg Saccharomyces Boulardii (Florastor) 250 mg PO Q12 [facility] Last Admin: 09/29/18 09:04 Dose: 250 mg Sertraline HCl (Zoloft) 50 mg PO DAILY [facility] Last Admin: 09/29/18 09:04 Dose: 50 mg Sitagliptin Phosphate (Januvia) 100 mg PO DAILY [facility] Last Admin: 09/29/18 09:03 Dose: 100 mg Trazodone HCl (Desyrel) 50 mg PO HS [facility] Last Admin: 09/28/18 21:58 Dose: 50 mg Trimethobenzamide HCl (Tigan) 200 mg IM Q8 PRN PRN Reason: Nausea/Vomiting Vitamin B Complex/Vit C/Folic Acid (Nephro-Lavinia) 1 tab PO DAILY [facility] Last Admin: 09/29/18 09:05 Dose: 1 tab - Labs Labs: 09/29/18 08:30 09/29/18 08:30 PT 22.3 SECONDS (9.7-12.2) H 09/20/18 13:45 INR 2.0 09/20/18 13:45 APTT 33 SECONDS (21-34) 09/20/18 13:45 - Additional Findings Additional findings: - Constitutional Appears: Non-toxic, Chronically Ill - Head Exam Head Exam: ATRAUMATIC, NORMAL INSPECTION, NORMOCEPHALIC - Eye Exam Eye Exam: EOMI, Normal appearance. absent: Scleral icterus - ENT Exam ENT Exam: Mucous Membranes Moist - Neck Exam Neck Exam: Normal Inspection - Respiratory Exam Respiratory Exam: Decreased Breath Sounds. absent: Wheezes, NORMAL BREATHING PATTERN, Accessory Muscle Use, - Cardiovascular Exam Cardiovascular Exam: Tachycardia, +S1, +S2. absent: RRR - GI/Abdominal Exam GI & Abdominal Exam: Soft, Normal Bowel Sounds. absent: Tenderness - Extremities Exam Extremities Exam: Normal Inspection. absent: Pedal Edema - Neurological Exam Neurological Exam: Alert, Awake - Psychiatric Exam Psychiatric exam: Normal Affect, Normal Mood - Skin Skin Exam: Dry, Intact, Normal Color, Warm Assessment and Plan - Assessment and Plan (Free Text) Assessment: 63 year old female with PMHx of COPD, Pancreatic Mass, Chronic Diastolic CHF, Hypertension, DM II, Fibromyalgia, Adrenal Insufficiency, Hypothyroidism, Hx of DVT, Gout, Depression, and Current Closed Fracture of Right proximal tibia admitted for evluation and treatment of COPD exacerbation. Hospital Course Complicated with episodes of hypotension. Plan: Hypotension (Stable) -NS bolus of 1L ORdered -Will hold BP meds at this time and observe COPD Exacerbation - Continue home medication: Breo - Duonebs Q4h prn C. Diff During Previous Admission - Completed course of Vancomycin - Repeat Cdiff negative Pancreatic Mass - Surgery consulted, Dr. Bright; help appreciated * mass appears resectable, however, patient is a not a surgical candidate at this time due to other conditions/comorbities. performance status of 4 currently would need to be improved to 2 for surgical consideration - CEA: 42.5 - CA19-9: 1980 - CA125: 36.2 - Abdomen/Pelvic CT: Heterogeneous hyperdense pancreatic mass measuring approximately 2.7 x 2.5 cm at the pancreatic body/tail. Ectatic dilated pancreatic duct. Additional cystic heterogeneous focus measuring approximately 15 x 14 mm is noted at the superior aspect of the pancreas. Appearance worrisome for malignant neoplasm. Wall thickening involving the 2nd portion of the duodenum of uncertain significance; considerations include infectious, inflammatory, or malignant etiologies. Correlate clinically and recommend further evaluation with direct visualization if indicated. Small pelvic free fluid. Tachycardia - Cardiology consulted, Dr. Jeong; help appreciated - Cardizem to 180mg PO BID (from 120mg, per Dr. Pineda) - Will continue to monitor - ECHO (09/29/18): Ordered and PENDING - NPO after Midnight for Nuclear Stress Test tomorrow. Stage 1 Gluteal Ulcer - Patient has been spraying hydrogen peroxide on it - Will consult Nursing Wound Care, - Turn Q2H - Consider Air Mattress Intertrigo Redness us Groin Area 2/2 to incontinence -Start Nystatin Powder BID Chronic Diastolic Congestive Heart Failure - Stable - Last echo 2016 showed Grade III reversible restrictive diastolic dysfunction, EF 55% - F/U ECHO, Ordered 09/29/18 - Lasix 20mg PO BID Hypertension - Home medications: * Lisinopril 10mg PO daily (held) * Cardizem 180mg PO BID (held) Diabetes Mellitus - Accuchecks, Hypoglycemia protocol - HgA1c 9.3 (01/2018); repeat A1c 9.0 - Insulin sliding scale - medium - Continue home medications: Januvia 100 mg PO daily, Glipizide 10mg PO BID, Gabapentin 300mg PO HS - Novolog 10 u SC AC - Lantus 24 units HS - Endocrinology consult. Dr Cam. recs appreciated. Fibromyalgia - Home medication: Diazepam 5mg PO BID - Flexeril 5mg PO TID (Holding parameters- hold if sleeping/sedated, hypotensi on) - Percocet 5/325mg 2 tab Q6H prn for pain - Gabapentin 300mg PO HS Adrenal Insufficiency - On prednisone 10mg PO daily Hypothyroidism - Continue Synthroid 100mcg PO daily - TSH/Free T4: 9.5/0.30 Hypokalemia -repleted -continue to monitor and replete as needed History of DVT/PE - Continue Xarelto 20mg PO daily Gout - Continue Colchicine Depression - Consulted psychiatry, Dr. Dexter, recs appreciated. - Per psychiatry, Started zoloft 50mg po daily (consider tapering up to 100mg), trazodone 50mg po hs - Valium 5mg po bid Closed fracture of right proximal tibia - Orthopedic surgery consulted, Dr. Hernandez; help appreciated - Per ortho: continue well padded knee immobilizer; non operative; recommends PT/OT, NWB, VTE proph, and to f/u with Dr. Hernandez 1-2 weeks upon d/c Prophylactic Measures - Protonix 40mg PO daily, Probiotics - Xarelto 20mg PO daily - PT/OT - Palliative care consulted to discuss goals of care - Case management consulted for discharge planning to [facility] Disposition: Palliative consulted for code status and possible home hospice evaluation, pending family meeting with Palliative and Dr. Valle. PT recomends [facility]. Patient NPO after midnight tomorrow for Nuclear Stress Test. ECHO also ordered. Plan discussed with Dr Nenita Kong DO PGY-2
[2018-09-29] MEDS: Oxycodone/Acetaminophen 5/325 mg Tab PO PRN (17:36)
[2018-09-29] MEDS: (Lantus) Insulin Glargine, Recombinant SC SCH (21:46)
--- NOTE | 2018-09-30 01:00 | CP.PCM.PN ---
Subjective - Date & Time of Evaluation Date of Evaluation: 09/29/18 Time of Evaluation: 18:00 - Subjective Subjective: No complaints. Objective - Vital Signs/Intake and Output Vital Signs (last 24 hours): Temp Pulse Resp BP Pulse Ox 98.2 F 119 H 20 120/80 95 09/29/18 17:13 09/29/18 17:13 09/29/18 17:13 09/29/18 17:37 09/29/18 17:13 Intake and Output: 09/29/18 09/30/18 18:59 06:59 Intake Total 350 Output Total 300 Balance 50 - Medications Medications: Current Medications Acetaminophen (Tylenol 325mg Tab) 650 mg PO Q4 PRN PRN Reason: Pain, Mild (1-3) Last Admin: 09/29/18 12:10 Dose: 650 mg Colchicine (Colocrys) 0.6 mg PO BID [facility] Last Admin: 09/29/18 17:39 Dose: 0.6 mg Cyclobenzaprine HCl (Flexeril) 5 mg PO TID [facility] Last Admin: 09/29/18 17:39 Dose: 5 mg Dextrose (Dextrose 50% Inj) 0 ml IV STAT PRN; Protocol PRN Reason: Hypoglycemia Protocol Dextrose (Glutose 15) 0 gm PO ONCE PRN; Protocol PRN Reason: Hypoglycemia Protocol Diazepam (Valium) 5 mg PO BID [facility] Last Admin: 09/29/18 17:37 Dose: 5 mg Dicyclomine HCl (Bentyl) 20 mg PO TID [facility] Last Admin: 09/29/18 17:39 Dose: 20 mg Diltiazem HCl (Cardizem Cd) 180 mg PO BID [facility] Last Admin: 09/29/18 17:36 Dose: 180 mg Ergocalciferol (Drisdol 50,000 Intl Units Cap) 1 cap PO Q7D [facility] Last Admin: 09/27/18 20:16 Dose: 1 cap Ferric Sodium Gluconate Complex (Ferrlecit) 125 mg IVPB DAILY [facility] Stop: 10/01/18 10:01 Last Admin: 09/29/18 09:03 Dose: 125 mg Ferrous Gluconate (Fergon) 324 mg PO TIDCC [facility] Last Admin: 09/29/18 17:37 Dose: 324 mg Fluticasone/Vilanterol (Breo Ellipta 100-25 Mcg Inh) 1 puff INH RQ24 [facility] Last Admin: 09/29/18 07:40 Dose: Not Given Furosemide (Lasix) 20 mg PO BID [facility] Last Admin: 09/29/18 17:37 Dose: 20 mg Gabapentin (Neurontin) 300 mg PO HS [facility] Last Admin: 09/29/18 21:45 Dose: 300 mg Glipizide (Glucotrol) 10 mg PO BID [facility] Last Admin: 09/29/18 17:36 Dose: 10 mg Glucagon (Glucagen Diagnostic Kit) 0 mg IM STAT PRN; Protocol PRN Reason: Hypoglycemia Protocol Insulin Aspart (Novolog) 0 unit SC ACHS [facility]; Protocol Last Admin: 09/29/18 22:33 Dose: Not Given Insulin Aspart (Novolog) 10 unit SC AC [facility] Last Admin: 09/29/18 17:38 Dose: 10 units Insulin Glargine (Lantus) 24 unit SC HS [facility] Last Admin: 09/29/18 21:46 Dose: 24 unit Levothyroxine Sodium (Synthroid) 100 mcg PO 0630 [facility] Last Admin: 09/29/18 06:17 Dose: 100 mcg Lisinopril (Zestril) 10 mg PO DAILY [facility] Last Admin: 09/29/18 09:03 Dose: 10 mg Magnesium Oxide (Mag-Ox) 400 mg PO BID [facility] Last Admin: 09/29/18 17:37 Dose: 400 mg Nystatin (Nystop Topical Powder) 1 applic TOP BID [facility] Last Admin: 09/29/18 17:38 Dose: Not Given Oxycodone/Acetaminophen (Percocet 5/325 Mg Tab) 2 tab PO Q6H PRN PRN Reason: Pain, severe (8-10) Stop: 10/01/18 15:15 Last Admin: 09/29/18 17:36 Dose: 2 tab Pantoprazole Sodium (Protonix Ec Tab) 40 mg PO DAILY [facility] Last Admin: 09/29/18 09:04 Dose: 40 mg Potassium Chloride (K-Dur 20 Meq Er Tab) 20 meq PO DAILY [facility] Last Admin: 09/29/18 09:05 Dose: 20 meq Prednisone (Prednisone Tab) 10 mg PO DAILY [facility] Last Admin: 09/29/18 09:04 Dose: 10 mg Rivaroxaban (Xarelto) 20 mg PO DAILY [facility] Last Admin: 09/29/18 09:06 Dose: 20 mg Saccharomyces Boulardii (Florastor) 250 mg PO Q12 [facility] Last Admin: 09/29/18 21:45 Dose: 250 mg Sertraline HCl (Zoloft) 50 mg PO DAILY [facility] Last Admin: 09/29/18 09:04 Dose: 50 mg Sitagliptin Phosphate (Januvia) 100 mg PO DAILY [facility] Last Admin: 09/29/18 09:03 Dose: 100 mg Trazodone HCl (Desyrel) 50 mg PO HS [facility] Last Admin: 09/29/18 22:34 Dose: Not Given Trimethobenzamide HCl (Tigan) 200 mg IM Q8 PRN PRN Reason: Nausea/Vomiting Vitamin B Complex/Vit C/Folic Acid (Nephro-Lavinia) 1 tab PO DAILY [facility] Last Admin: 09/29/18 09:05 Dose: 1 tab - Labs Labs: 09/29/18 08:30 09/29/18 08:30 PT 22.3 SECONDS (9.7-12.2) H 09/20/18 13:45 INR 2.0 09/20/18 13:45 APTT 33 SECONDS (21-34) 09/20/18 13:45 - Head Exam Head Exam: ATRAUMATIC - Eye Exam Eye Exam: Normal appearance - ENT Exam ENT Exam: Mucous Membranes Dry - Respiratory Exam Respiratory Exam: NORMAL BREATHING PATTERN - Cardiovascular Exam Cardiovascular Exam: +S1, +S2 - GI/Abdominal Exam GI & Abdominal Exam: Normal Bowel Sounds Assessment and Plan (1) Anemia Assessment & Plan: iron deficiency anemia on IV iron transfusion support PRN Status: Acute (2) Pancreatic cancer Assessment & Plan: no evidence of distant metastasis not a current surgical candidate due to debility surgical reevaluation after rehab Status: Acute
[2018-09-30] MEDS: Levothyroxine 100 MCG TAB PO SCH (05:50)
[2018-09-30] MEDS: Fluticasone-Vilanterol 100/25mcg Diskus INH SCH (07:40)
[2018-09-30] MEDS: (Novolog) Insulin Aspart, Recombinant 100 u/ml 10 ml vial SC SCH ×7 (08:25→22:16)
[2018-09-30] MEDS: diltiaZEM 180 mg/24 Hours CD Cap PO SCH ×2 (09:09→18:06)
[2018-09-30] MEDS: Ferric Sodium Gluconat Complex 62.5 mg/5 ml Vial IVPB SCH ×2 (09:10→13:35)
[2018-09-30] MEDS: Saccharomyces Boulardi 250 mg Cap PO SCH ×2 (09:11→22:15)
[2018-09-30] MEDS: Pantoprazole 40 mg EC Tab PO SCH ×2 (09:12→13:39)
[2018-09-30] MEDS: Magnesium Oxide 400 mg Tab UD PO SCH ×2 (09:12→18:06)
[2018-09-30] MEDS: Multivitamin Vitamin B Complex (Nephro-Vite) Tab PO SCH ×2 (09:12→13:39)
[2018-09-30] MEDS: Potassium Chloride 20 mEq ER Tab PO SCH ×2 (09:12→13:40)
[2018-09-30] MEDS: Ciprofloxacin 400mg/200ml D5W 400 MG/200 ML BAG IVPB SCH ×2 (11:28→22:16)
[2018-09-30] MEDS: Oxycodone/Acetaminophen 5/325 mg Tab PO PRN ×2 (11:34→18:36)
[2018-09-30 11:59] LABS: BASO # 0.1 K/uL (0.0-0.2); EOS # 0.2 K/uL (0.0-0.7); EOS % 1.3 % (0.0-4.0); HEMOGLOBIN 10.3 g/dL (11.0-16.0)
[2018-09-30 12:04] LABS: LYMPH # 3.7 K/uL (1.0-4.3); LYMPH % 25.1 % (20.0-40.0); MEAN CELL VOLUME 77.7 fL (81.0-99.0); MEAN CORPUSCULAR HEMOGLOBIN 22.9 pg (27.0-31.0); MEAN CORPUSCULAR HGB CONC 29.5 g/dL (33.0-37.0); MEAN PLATELET VOLUME 9.1 fL (7.2-11.7); MONO # 1.5 K/uL (0.0-0.8); MONO % 9.9 % (0.0-10.0); NEUT # 9.3 K/uL (1.8-7.0); NEUT % 62.7 % (50.0-75.0); NRBC % 0.2 % (0.0-2.0); RBC 4.49 Mil/uL (3.80-5.20); RED CELL DISTRIBUTION WIDTH 21.9 % (11.5-14.5); WHITE BLOOD COUNT 14.8 K/uL (4.8-10.8)
[2018-09-30 12:23] LABS: ALB/GLOB RATIO 1.4 (1.0-2.1); ALBUMIN 3.8 g/dL (3.5-5.0); ALT/SGPT 137 U/L (9-52); AST/SGOT 79 U/L (14-36); BLOOD UREA NITROGEN 31 mg/dL (7-17); CALCIUM 9.3 mg/dl (8.6-10.4); GFR NON-AFRICAN AMERICAN > 60
--- NOTE | 2018-09-30 14:26 | CP.PCM.PN ---
"Subjective - Date & Time of Evaluation Date of Evaluation: 09/30/18 Time of Evaluation: 14:25 - Subjective Subjective: Patient seen and examined at bedside. Breathing has improved. she denies any chest pain. 12 point review of systems preformed and negative unless otherwise stated. Objective - Vital Signs/Intake and Output Vital Signs (last 24 hours): Temp Pulse Resp BP Pulse Ox 97.8 F 123 H 20 102/57 L 92 L 09/29/18 23:40 09/30/18 01:33 09/29/18 23:40 09/29/18 23:40 09/29/18 23:40 - Medications Medications: Current Medications Acetaminophen (Tylenol 325mg Tab) 650 mg PO Q4 PRN PRN Reason: Pain, Mild (1-3) Last Admin: 09/29/18 12:10 Dose: 650 mg Colchicine (Colocrys) 0.6 mg PO BID [facility] Last Admin: 09/30/18 09:09 Dose: Not Given Cyclobenzaprine HCl (Flexeril) 5 mg PO TID [facility] Last Admin: 09/30/18 13:40 Dose: 5 mg Dextrose (Dextrose 50% Inj) 0 ml IV STAT PRN; Protocol PRN Reason: Hypoglycemia Protocol Dextrose (Glutose 15) 0 gm PO ONCE PRN; Protocol PRN Reason: Hypoglycemia Protocol Diazepam (Valium) 5 mg PO BID [facility] Last Admin: 09/30/18 09:12 Dose: Not Given Dicyclomine HCl (Bentyl) 20 mg PO TID [facility] Last Admin: 09/30/18 13:40 Dose: 20 mg Diltiazem HCl (Cardizem Cd) 180 mg PO BID [facility] Last Admin: 09/30/18 09:09 Dose: Not Given Ergocalciferol (Drisdol 50,000 Intl Units Cap) 1 cap PO Q7D [facility] Last Admin: 09/27/18 20:16 Dose: 1 cap Ferric Sodium Gluconate Complex (Ferrlecit) 125 mg IVPB DAILY [facility] Stop: 10/01/18 10:01 Last Admin: 09/30/18 13:35 Dose: 125 mg Ferrous Gluconate (Fergon) 324 mg PO TIDCC [facility] Last Admin: 09/30/18 11:38 Dose: 324 mg Fluticasone/Vilanterol (Breo Ellipta 100-25 Mcg Inh) 1 puff INH RQ24 [facility] Last Admin: 09/30/18 07:40 Dose: Not Given Furosemide (Lasix) 20 mg PO BID [facility] Last Admin: 09/30/18 09:12 Dose: Not Given Gabapentin (Neurontin) 300 mg PO HS [facility] Last Admin: 09/29/18 21:45 Dose: 300 mg Glipizide (Glucotrol) 10 mg PO BID [facility] Last Admin: 09/30/18 09:11 Dose: Not Given Glucagon (Glucagen Diagnostic Kit) 0 mg IM STAT PRN; Protocol PRN Reason: Hypoglycemia Protocol Ciprofloxacin (Cipro 400mg/200ml Dsw) 400 mg in 200 mls @ 133 mls/hr IVPB Q12H [facility]; Protocol Last Admin: 09/30/18 11:28 Dose: 133 mls/hr Insulin Aspart (Novolog) 0 unit SC ACHS [facility]; Protocol Last Admin: 09/30/18 11:36 Dose: Not Given Insulin Aspart (Novolog) 10 unit SC AC [facility] Last Admin: 09/30/18 11:35 Dose: Not Given Insulin Glargine (Lantus) 24 unit SC HS [facility] Last Admin: 09/29/18 21:46 Dose: 24 unit Levothyroxine Sodium (Synthroid) 100 mcg PO 0630 [facility] Last Admin: 09/30/18 05:50 Dose: 100 mcg Lisinopril (Zestril) 10 mg PO DAILY [facility] Last Admin: 09/30/18 09:13 Dose: Not Given Magnesium Oxide (Mag-Ox) 400 mg PO BID [facility] Last Admin: 09/30/18 09:12 Dose: Not Given Nystatin (Nystop Topical Powder) 1 applic TOP BID [facility] Last Admin: 09/30/18 09:12 Dose: Not Given Oxycodone/Acetaminophen (Percocet 5/325 Mg Tab) 2 tab PO Q6H PRN PRN Reason: Pain, severe (8-10) Stop: 10/01/18 15:15 Last Admin: 09/30/18 11:34 Dose: 2 tab Pantoprazole Sodium (Protonix Ec Tab) 40 mg PO DAILY [facility] Last Admin: 09/30/18 13:39 Dose: 40 mg Potassium Chloride (K-Dur 20 Meq Er Tab) 20 meq PO DAILY [facility] Last Admin: 09/30/18 13:40 Dose: 20 meq Prednisone (Prednisone Tab) 10 mg PO DAILY [facility] Last Admin: 09/30/18 13:39 Dose: 10 mg Rivaroxaban (Xarelto) 20 mg PO DAILY [facility] Last Admin: 09/30/18 13:40 Dose: 20 mg Saccharomyces Boulardii (Florastor) 250 mg PO Q12 [facility] Last Admin: 09/30/18 09:11 Dose: Not Given Sertraline HCl (Zoloft) 50 mg PO DAILY [facility] Last Admin: 09/30/18 13:40 Dose: 50 mg Sitagliptin Phosphate (Januvia) 100 mg PO DAILY [facility] Last Admin: 09/30/18 09:11 Dose: Not Given Trazodone HCl (Desyrel) 50 mg PO HS [facility] Last Admin: 09/29/18 22:34 Dose: Not Given Trimethobenzamide HCl (Tigan) 200 mg IM Q8 PRN PRN Reason: Nausea/Vomiting Vitamin B Complex/Vit C/Folic Acid (Nephro-Lavinia) 1 tab PO DAILY [facility] Last Admin: 09/30/18 13:39 Dose: 1 tab - Labs Labs: 09/30/18 11:53 09/30/18 11:53 PT 22.3 SECONDS (9.7-12.2) H 09/20/18 13:45 INR 2.0 09/20/18 13:45 APTT 33 SECONDS (21-34) 09/20/18 13:45 - Additional Findings Additional findings: - Constitutional Appears: Non-toxic, Chronically Ill - Head Exam Head Exam: ATRAUMATIC, NORMAL INSPECTION, NORMOCEPHALIC - Eye Exam Eye Exam: EOMI, Normal appearance. absent: Scleral icterus - ENT Exam ENT Exam: Mucous Membranes Moist - Neck Exam Neck Exam: Normal Inspection - Respiratory Exam Respiratory Exam: Decreased Breath Sounds. absent: Wheezes, NORMAL BREATHING PATTERN, Accessory Muscle Use, - Cardiovascular Exam Cardiovascular Exam: Tachycardia, +S1, +S2. absent: RRR - GI/Abdominal Exam GI & Abdominal Exam: Soft, Normal Bowel Sounds. absent: Tenderness - Extremities Exam Extremities Exam: Normal Inspection. absent: Pedal Edema - Neurological Exam Neurological Exam: Alert, Awake - Psychiatric Exam Psychiatric exam: Normal Affect, Normal Mood - Skin Skin Exam: Dry, Intact, Normal Color, Warm Assessment and Plan - Assessment and Plan (Free Text) Assessment: 63 year old female with PMHx of COPD, Pancreatic Mass, Chronic Diastolic CHF, Hypertension, DM II, Fibromyalgia, Adrenal Insufficiency, Hypothyroidism, Hx of DVT, Gout, Depression, and Current Closed Fracture of Right proximal tibia admitted for evluation and treatment of COPD exacerbation. Hospital Course Complicated with episodes of hypotension. Plan: Hypotension (Stable) -NS bolus of 1L ORdered -Will hold BP meds at this time and observe COPD Exacerbation - Continue home medication: Breo - Duonebs Q4h prn C. Diff During Previous Admission - Completed course of Vancomycin - Repeat Cdiff negative Pancreatic Mass - Surgery consulted, Dr. Bright; help appreciated * mass appears resectable, however, patient is a not a surgical candidate at this time due to other conditions/comorbities. performance status of 4 currently would need to be improved to 2 for surgical consideration - CEA: 42.5 - CA19-9: 1980 - CA125: 36.2 - Abdomen/Pelvic CT: Heterogeneous hyperdense pancreatic mass measuring approximately 2.7 x 2.5 cm at the pancreatic body/tail. Ectatic dilated pancreatic duct. Additional cystic heterogeneous focus measuring approximately 15 x 14 mm is noted at the superior aspect of the pancreas. Appearance worrisome for malignant neoplasm. Wall thickening involving the 2nd portion of the duodenum of uncertain significance; considerations include infectious, inflammatory, or malignant etiologies. Correlate clinically and recommend further evaluation with direct visualization if indicated. Small pelvic free fluid. Tachycardia - Cardiology consulted, Dr. Jeong; F/U Recs. - Cardizem to 180mg PO BID (from 120mg, per Dr. Pineda) - Will continue to monitor - ECHO (09/29/18): PENDING READ - Sress Test (09/30/18): PENDING REPORT Stage 1 Gluteal Ulcer - Patient has been spraying hydrogen peroxide on it - Will consult Nursing Wound Care, - Turn Q2H - Consider Air Mattress Intertrigo Redness us Groin Area 2/2 to incontinence -Start Nystatin Powder BID UTI UA: Positive Leuk ES | Urine Culture: Gram Negative Rods, F/U Sensitivities Mgmt: Ciprofloxacin 400mg Q12H Chronic Diastolic Congestive Heart Failure - Stable - Last echo 2017 showed Grade III reversible restrictive diastolic dysfunction, EF 55% - F/U ECHO, Ordered 09/29/18 - Lasix 20mg PO BID Hypertension - Home medications: * Lisinopril 10mg PO daily (held) * Cardizem 180mg PO BID (held) Diabetes Mellitus - Accuchecks, Hypoglycemia protocol - HgA1c 9.3 (01/2018); repeat A1c 9.0 - Insulin sliding scale - medium - Continue home medications: Januvia 100 mg PO daily, Glipizide 10mg PO BID, Gabapentin 300mg PO HS - Novolog 10 u SC AC - Lantus 24 units HS - Endocrinology consult. Dr Cam. chu appreciated. Fibromyalgia - Home medication: Diazepam 5mg PO BID - Flexeril 5mg PO TID (Holding parameters- hold if sleeping/sedated, hypotension) - Percocet 5/325mg 2 tab Q6H prn for pain - Gabapentin 300mg PO HS Adrenal Insufficiency - On prednisone 10mg PO daily Hypothyroidism - Continue Synthroid 100mcg PO daily - TSH/Free T4: 9.5/0.30 Hypokalemia -repleted -continue to monitor and replete as needed History of DVT/PE - Continue Xarelto 20mg PO daily Gout - Continue Colchicine Depression - Consulted psychiatry, k[place]ley [place] appreciated. - Per psychiatry, Started zoloft 50mg po daily (consider tapering up to 100mg), trazodone 50mg po hs - Valium 5mg po bid Closed fracture of right proximal tibia - Orthopedic surgery consulted, Dr. Hernandez; help appreciated - Per ortho: continue well padded knee immobilizer; non operative; recommends PT/OT, NWB, VTE proph, and to f/u with Dr. Hernandez 1-2 weeks upon d/c Prophylactic Measures - Protonix 40mg PO daily, Probiotics - Xarelto 20mg PO daily - PT/OT - Palliative care consulted to discuss goals of care - Case management consulted for discharge planning to [facility] Disposition: Palliative consulted for code status and possible home hospice evaluation, pending family meeting with Palliative and Dr. Valle. PT recomends [facility]. Patient NPO after midnight tomorrow for Nuclear Stress Test. ECHO also ordered. Plan discussed with Dr Nenita Kong DO PGY-2"
--- NOTE | 2018-09-30 15:09 | CARD ---
APPROVED REPORT Date of service: 09/30/2018 EXAM: Two-dimensional and M-mode echocardiogram with Doppler and color Doppler. Other Information Quality : GoodRhythm : Tachycardia INDICATION Chest Pain Congestive Heart Failure COPD RISK FACTORS Hypertension Hyperlipidemia Diabetes 2D DIMENSIONS IVSd1.3 (0.7-1.1cm)LVDd3.2 (3.9-5.9cm) PWd1.3 (0.7-1.1cm)LA Bsxmfx70 (18-58mL) LVDs2.3 (2.5-4.0cm)FS (%) 26.2 % LVEF (%)52.7 (>50%)LVEF (Rangel's)64.73 % M-Mode DIMENSIONS Left Atrium (MM)3.61 (2.5-4.0cm)IVSd1.00 (0.7-1.1cm) Aortic Root2.95 (2.2-3.7cm)LVDd3.71 (4.0-5.6cm) Aortic Cusp Exc.2.03 (1.5-2.0cm)PWd0.85 (0.7-1.1cm) FS (%) 30 %LVDs2.58 (2.0-3.8cm) LVEF (%)59 (>50%) Mitral Valve MV E Btgppybr36.5cm/sMV A Mhnoxyio42.2cm/sE/A ratio0.6 TDI Lateral E' Peak V5.38cm/sMedial E' Peak V4.29cm/sE/Lateral E'8.8 E/Medial E'11.1 LEFT VENTRICLE The left ventricle is normal size. There is normal left ventricular wall thickness. The left ventricular function is normal. The left ventricular ejection fraction is within the normal range. No regional wall motion abnormalities noted. The left ventricular diastolic function is normal.Mitral annular velocities are depressed suggest myocardial dysfunction No left ventricle thrombus noted on this study. There is no ventricular septal defect visualized. There is no left ventricular aneurysm. There is no mass noted in the left ventricle. RIGHT VENTRICLE The right ventricle is normal size. There is normal right ventricular wall thickness. The right ventricular systolic function is normal. ATRIA The left atrium size is normal. The right atrium size is normal. The interatrial septum is intact with no evidence for an atrial septal defect. AORTIC VALVE The aortic valve is normal in structure and function. No aortic regurgitation is present. There is no aortic valvular stenosis. There is no aortic valvular vegetation. MITRAL VALVE The mitral valve is normal in structure and function. There is no evidence of mitral valve prolapse. There is no mitral valve stenosis. There is no mitral valve regurgitation noted. TRICUSPID VALVE The tricuspid valve is normal in structure and function. There is no tricuspid valve regurgitation noted. There is no tricuspid valve prolapse or vegetation. There is no tricuspid valve stenosis. PULMONIC VALVE The pulmonary valve is normal in structure and function. There is no pulmonic valvular regurgitation. There is no pulmonic valvular stenosis. GREAT VESSELS The aortic root is normal in size. The ascending aorta is normal in size. The pulmonary artery is normal. The IVC is normal in size and collapses >50% with inspiration. PERICARDIAL EFFUSION The pericardium appears normal. There is no pleural effusion. <Conclusion> The left ventricular function is normal. The left ventricular ejection fraction is within the normal range. The left ventricular diastolic function is normal.Mitral annular velocities are depressed suggest myocardial dysfunction No regional wall motion abnormalities noted.
[2018-09-30] MEDS: (Lantus) Insulin Glargine, Recombinant SC SCH (22:15)
[2018-10-01] MEDS: Levothyroxine 100 MCG TAB PO SCH (06:34)
[2018-10-01 06:51] LABS: BASO # 0.1 K/uL (0.0-0.2); BASO % 0.9 % (0.0-2.0); EOS # 0.2 K/uL (0.0-0.7); EOS % 1.2 % (0.0-4.0); LYMPH # 2.5 K/uL (1.0-4.3); MEAN CELL VOLUME 77.3 fL (81.0-99.0); MEAN CORPUSCULAR HEMOGLOBIN 22.6 pg (27.0-31.0); MEAN CORPUSCULAR HGB CONC 29.2 g/dL (33.0-37.0); MEAN PLATELET VOLUME 8.5 fL (7.2-11.7); MONO # 1.2 K/uL (0.0-0.8); MONO % 9.3 % (0.0-10.0); NEUT # 9.2 K/uL (1.8-7.0); NEUT % 69.6 % (50.0-75.0); RBC 4.29 Mil/uL (3.80-5.20); RED CELL DISTRIBUTION WIDTH 21.5 % (11.5-14.5); WHITE BLOOD COUNT 13.2 K/uL (4.8-10.8)
[2018-10-01 07:03] LABS: HEMOGLOBIN 9.7 g/dL (11.0-16.0)
[2018-10-01 07:05] LABS: ALB/GLOB RATIO 1.4 (1.0-2.1); ALBUMIN 3.5 g/dL (3.5-5.0); ALT/SGPT 150 U/L (9-52); AST/SGOT 90 U/L (14-36); BLOOD UREA NITROGEN 30 mg/dL (7-17); CALCIUM 9.1 mg/dl (8.6-10.4); GFR NON-AFRICAN AMERICAN > 60
[2018-10-01] MEDS: (Novolog) Insulin Aspart, Recombinant 100 u/ml 10 ml vial SC SCH ×7 (07:52→21:54)
--- NOTE | 2018-10-01 08:47 | CP.PCM.CON ---
"History of Present Illness - History of Present Illness History of Present Illness: CC: Pre Op cardiac risk assessemnt Patient seen and examined at bedside. 63 F with multiple co morbidities with panreatic Ca consulted for pre Op cardiac risk assessment for Wipple's surgery. Objective - Vital Signs/Intake and Output Vital Signs (last 24 hours): Temp Pulse Resp BP Pulse Ox 97.8 F 123 H 20 102/57 L 92 L 09/29/18 23:40 09/30/18 01:33 09/29/18 23:40 09/29/18 23:40 09/29/18 23:40 - Medications Medications: Current Medications Acetaminophen (Tylenol 325mg Tab) 650 mg PO Q4 PRN PRN Reason: Pain, Mild (1-3) Last Admin: 09/29/18 12:10 Dose: 650 mg Colchicine (Colocrys) 0.6 mg PO BID [facility] Last Admin: 09/30/18 09:09 Dose: Not Given Cyclobenzaprine HCl (Flexeril) 5 mg PO TID [facility] Last Admin: 09/30/18 13:40 Dose: 5 mg Dextrose (Dextrose 50% Inj) 0 ml IV STAT PRN; Protocol PRN Reason: Hypoglycemia Protocol Dextrose (Glutose 15) 0 gm PO ONCE PRN; Protocol PRN Reason: Hypoglycemia Protocol Diazepam (Valium) 5 mg PO BID [facility] Last Admin: 09/30/18 09:12 Dose: Not Given Dicyclomine HCl (Bentyl) 20 mg PO TID [facility] Last Admin: 09/30/18 13:40 Dose: 20 mg Diltiazem HCl (Cardizem Cd) 180 mg PO BID [facility] Last Admin: 09/30/18 09:09 Dose: Not Given Ergocalciferol (Drisdol 50,000 Intl Units Cap) 1 cap PO Q7D [facility] Last Admin: 09/27/18 20:16 Dose: 1 cap Ferric Sodium Gluconate Complex (Ferrlecit) 125 mg IVPB DAILY [facility] Stop: 10/01/18 10:01 Last Admin: 09/30/18 13:35 Dose: 125 mg Ferrous Gluconate (Fergon) 324 mg PO TIDCC [facility] Last Admin: 09/30/18 11:38 Dose: 324 mg Fluticasone/Vilanterol (Breo Ellipta 100-25 Mcg Inh) 1 puff INH RQ24 [facility] Last Admin: 09/30/18 07:40 Dose: Not Given Furosemide (Lasix) 20 mg PO BID [facility] Last Admin: 09/30/18 09:12 Dose: Not Given Gabapentin (Neurontin) 300 mg PO HS [facility] Last Admin: 09/29/18 21:45 Dose: 300 mg Glipizide (Glucotrol) 10 mg PO BID [facility] Last Admin: 09/30/18 09:11 Dose: Not Given Glucagon (Glucagen Diagnostic Kit) 0 mg IM STAT PRN; Protocol PRN Reason: Hypoglycemia Protocol Ciprofloxacin (Cipro 400mg/200ml Dsw) 400 mg in 200 mls @ 133 mls/hr IVPB Q12H [facility]; Protocol Last Admin: 09/30/18 11:28 Dose: 133 mls/hr Insulin Aspart (Novolog) 0 unit SC ACHS [facility]; Protocol Last Admin: 09/30/18 11:36 Dose: Not Given Insulin Aspart (Novolog) 10 unit SC AC [facility] Last Admin: 09/30/18 11:35 Dose: Not Given Insulin Glargine (Lantus) 24 unit SC HS [facility] Last Admin: 09/29/18 21:46 Dose: 24 unit Levothyroxine Sodium (Synthroid) 100 mcg PO 0630 [facility] Last Admin: 09/30/18 05:50 Dose: 100 mcg Lisinopril (Zestril) 10 mg PO DAILY [facility] Last Admin: 09/30/18 09:13 Dose: Not Given Magnesium Oxide (Mag-Ox) 400 mg PO BID [facility] Last Admin: 09/30/18 09:12 Dose: Not Given Nystatin (Nystop Topical Powder) 1 applic TOP BID [facility] Last Admin: 09/30/18 09:12 Dose: Not Given Oxycodone/Acetaminophen (Percocet 5/325 Mg Tab) 2 tab PO Q6H PRN PRN Reason: Pain, severe (8-10) Stop: 10/01/18 15:15 Last Admin: 09/30/18 11:34 Dose: 2 tab Pantoprazole Sodium (Protonix Ec Tab) 40 mg PO DAILY [facility] Last Admin: 09/30/18 13:39 Dose: 40 mg Potassium Chloride (K-Dur 20 Meq Er Tab) 20 meq PO DAILY [facility] Last Admin: 09/30/18 13:40 Dose: 20 meq Prednisone (Prednisone Tab) 10 mg PO DAILY [facility] Last Admin: 09/30/18 13:39 Dose: 10 mg Rivaroxaban (Xarelto) 20 mg PO DAILY [facility] Last Admin: 09/30/18 13:40 Dose: 20 mg Saccharomyces Boulardii (Florastor) 250 mg PO Q12 [facility] Last Admin: 09/30/18 09:11 Dose: Not Given Sertraline HCl (Zoloft) 50 mg PO DAILY [facility] Last Admin: 09/30/18 13:40 Dose: 50 mg Sitagliptin Phosphate (Januvia) 100 mg PO DAILY [facility] Last Admin: 09/30/18 09:11 Dose: Not Given Trazodone HCl (Desyrel) 50 mg PO HS [facility] Last Admin: 09/29/18 22:34 Dose: Not Given Trimethobenzamide HCl (Tigan) 200 mg IM Q8 PRN PRN Reason: Nausea/Vomiting Vitamin B Complex/Vit C/Folic Acid (Nephro-Lavinia) 1 tab PO DAILY [facility] Last Admin: 09/30/18 13:39 Dose: 1 tab - Labs Labs: 09/30/18 11:53 09/30/18 11:53 PT 22.3 SECONDS (9.7-12.2) H 09/20/18 13:45 INR 2.0 09/20/18 13:45 APTT 33 SECONDS (21-34) 09/20/18 13:45 - Additional Findings Additional findings: - Constitutional Appears: Non-toxic, Chronically Ill - Head Exam Head Exam: ATRAUMATIC, NORMAL INSPECTION, NORMOCEPHALIC - Eye Exam Eye Exam: EOMI, Normal appearance. absent: Scleral icterus - ENT Exam ENT Exam: Mucous Membranes Moist - Neck Exam Neck Exam: Normal Inspection - Respiratory Exam Respiratory Exam: Decreased Breath Sounds. absent: Wheezes, NORMAL BREATHING PATTERN, Accessory Muscle Use, - Cardiovascular Exam Cardiovascular Exam: Tachycardia, +S1, +S2. absent: RRR - GI/Abdominal Exam GI & Abdominal Exam: Soft, Normal Bowel Sounds. absent: Tenderness - Extremities Exam Extremities Exam: Normal Inspection. absent: Pedal Edema - Neurological Exam Neurological Exam: Alert, Awake - Psychiatric Exam Psychiatric exam: Normal Affect, Normal Mood - Skin Skin Exam: Dry, Intact, Normal Color, Warm Assessment and Plan - Assessment and Plan (Free Text) Assessment: 63 year old female with PMHx of COPD, Pancreatic Mass, Chronic Diastolic CHF, Hypertension, DM II, Fibromyalgia, Adrenal Insufficiency, Hypothyroidism, Hx of DVT, Gout, Depression, and Current Closed Fracture of Right proximal tibia admitted for evluation and treatment of COPD exacerbation. Hospital Course Complicated with episodes of hypotension. Plan: Hypotension (Stable) -NS bolus of 1L ORdered -Will hold BP meds at this time and observe COPD Exacerbation - Continue home medication: Breo - Duonebs Q4h prn C. Diff During Previous Admission - Completed course of Vancomycin - Repeat Cdiff negative Pancreatic Mass - Surgery consulted, Dr. Bright; help appreciated * mass appears resectable, however, patient is a not a surgical candidate at this time due to other conditions/comorbities. performance status of 4 currently would need to be improved to 2 for surgical consideration - CEA: 42.5 - CA19-9: 1980 - CA125: 36.2 - Abdomen/Pelvic CT: Heterogeneous hyperdense pancreatic mass measuring approximately 2.7 x 2.5 cm at the pancreatic body/tail. Ectatic dilated pancreatic duct. Additional cystic heterogeneous focus measuring approximately 15 x 14 mm is noted at the superior aspect of the pancreas. Appearance worrisome for malignant neoplasm. Wall thickening involving the 2nd portion of the duodenum of uncertain significance; considerations include infectious, inflamm atory, or malignant etiologies. Correlate clinically and recommend further evaluation with direct visualization if indicated. Small pelvic free fluid. Tachycardia - Cardiology consulted, Dr. Jeong; F/U Recs. - Cardizem to 180mg PO BID (from 120mg, per Dr. Pineda) - Will continue to monitor - ECHO (09/29/18): PENDING READ - Sress Test (09/30/18): PENDING REPORT Stage 1 Gluteal Ulcer - Patient has been spraying hydrogen peroxide on it - Will consult Nursing Wound Care, - Turn Q2H - Consider Air Mattress Intertrigo Redness us Groin Area 2/2 to incontinence -Start Nystatin Powder BID UTI UA: Positive Leuk ES | Urine Culture: Gram Negative Rods, F/U Sensitivities Mgmt: Ciprofloxacin 400mg Q12H Chronic Diastolic Congestive Heart Failure - Stable - Last echo 2017 showed Grade III reversible restrictive diastolic dysfunction, EF 55% - F/U ECHO, Ordered 09/29/18 - Lasix 20mg PO BID Hypertension - Home medications: * Lisinopril 10mg PO daily (held) * Cardizem 180mg PO BID (held) Diabetes Mellitus - Accuchecks, Hypoglycemia protocol - HgA1c 9.3 (01/2018); repeat A1c 9.0 - Insulin sliding scale - medium - Continue home medications: Januvia 100 mg PO daily, Glipizide 10mg PO BID, Gabapentin 300mg PO HS - Novolog 10 u SC AC - Lantus 24 units HS - Endocrinology consult. Dr Cam. chu appreciated. Fibromyalgia - Home medication: Diazepam 5mg PO BID - Flexeril 5mg PO TID (Holding parameters- hold if sleeping/sedated, hypotension) - Percocet 5/325mg 2 tab Q6H prn for pain - Gabapentin 300mg PO HS Adrenal Insufficiency - On prednisone 10mg PO daily Hypothyroidism - Continue Synthroid 100mcg PO daily - TSH/Free T4: 9.5/0.30 Hypokalemia -repleted -continue to monitor and replete as needed History of DVT/PE - Continue Xarelto 20mg PO daily Gout - Continue Colchicine Depression - Consulted psychiatry, kimberley Villa appreciated. - Per psychiatry, Started zoloft 50mg po daily (consider tapering up to 100mg), trazodone 50mg po hs - Valium 5mg po bid Closed fracture of right proximal tibia - Orthopedic surgery consulted, Dr. Hernandez; help appreciated - Per ortho: continue well padded knee immobilizer; non operative; recommends PT/OT, NWB, VTE proph, and to f/u with Dr. Hernandez 1-2 weeks upon d/c Prophylactic Measures - Protonix 40mg PO daily, Probiotics - Xarelto 20mg PO daily - PT/OT - Palliative care consulted to discuss goals of care - Case management consulted for discharge planning to [facility] Pre-Operative Cardiac Risk assessment: 63 F with multiple comorbidies being assessed for Wipple's surgery Stress test: Negative ECHO: Normal EF and No Major valvular issues Leg dopppler: Negative for DVT Resting Tachycardia and hypotension etiology unclear This patient assessed as high risk for Cardiac events for a major surgery like Wipple's at this point due to unstable hemodynamics However if benefit outweighs the risk can proceed with the surgery after d/w the patient and the family We will optimize cardiac status as much as we can Past Patient History - Infectious Disease Hx of Infectious Diseases: None, C.diff - Past Medical History & Family History Past Medical History?: Yes - Past Social History Smoking Status: Never Smoked - CARDIAC Hx Congestive Heart Failure: Yes Hx Hypercholesterolemia: Yes Hx Hypertension: Yes - PULMONARY Hx Chronic Obstructive Pulmonary Disease (COPD): Yes - NEUROLOGICAL HX Cerebrovascular Accident: Yes - HEENT Hx HEENT Problems: No - RENAL Hx Chronic Kidney Disease: No - ENDOCRINE/METABOLIC Hx Diabetes Mellitus Type 1: Yes Hx Diabetes Mellitus Type 2: Yes Hx Hypothyroidism: Yes - HEMATOLOGICAL/ONCOLOGICAL Hx Anemia: Yes - INTEGUMENTARY Hx Dermatological Problems: No - MUSCULOSKELETAL/RHEUMATOLOGICAL Hx Arthritis: Yes (R THR /ORIF) Hx Rheumatoid Arthritis: Yes - GASTROINTESTINAL Hx Gall Bladder Disease: Yes - GENITOURINARY/GYNECOLOGICAL Hx Genitourinary Disorders: Yes Hx Urinary Tract Infection: Yes - PSYCHIATRIC Hx Anxiety: Yes Hx Depression: Yes Hx Substance Use: No - SURGICAL HISTORY Hx Appendectomy: No Hx Cholecystectomy: Yes - ANESTHESIA Hx Anesthesia: Yes Hx Anesthesia Reactions: Yes (DIFFICULTY BREATHING) Meds Allergies/Adverse Reactions: Allergies Allergy/AdvReac Type Severity Reaction Status Date / Time No Known Allergies Allergy Verified 09/01/18 17:29 - Medications Medications: Current Medications Acetaminophen (Tylenol 325mg Tab) 650 mg PO Q4 PRN PRN Reason: Pain, Mild (1-3) Last Admin: 09/29/18 12:10 Dose: 650 mg Colchicine (Colocrys) 0.6 mg PO BID [facility] Last Admin: 09/30/18 18:05 Dose: 0.6 mg Cyclobenzaprine HCl (Flexeril) 5 mg PO TID [facility] Last Admin: 09/30/18 18:05 Dose: 5 mg Dextrose (Dextrose 50% Inj) 0 ml IV STAT PRN; Protocol PRN Reason: Hypoglycemia Protocol Dextrose (Glutose 15) 0 gm PO ONCE PRN; Protocol PRN Reason: Hypoglycemia Protocol Diazepam (Valium) 5 mg PO BID [facility] Last Admin: 09/30/18 18:04 Dose: 5 mg Dicyclomine HCl (Bentyl) 20 mg PO TID [facility] Last Admin: 09/30/18 18:06 Dose: 20 mg Diltiazem HCl (Cardizem Cd) 180 mg PO BID [facility] Last Admin: 09/30/18 18:06 Dose: 180 mg Ergocalciferol (Drisdol 50,000 Intl Units Cap) 1 cap PO Q7D [facility] Last Admin: 09/27/18 20:16 Dose: 1 cap Ferric Sodium Gluconate Complex (Ferrlecit) 125 mg IVPB DAILY [facility] Stop: 10/01/18 10:01 Last Admin: 09/30/18 13:35 Dose: 125 mg Ferrous Gluconate (Fergon) 324 mg PO TIDCC [facility] Last Admin: 09/30/18 18:05 Dose: 324 mg Fluticasone/Vilanterol (Breo Ellipta 100-25 Mcg Inh) 1 puff INH RQ24 [facility] Last Admin: 09/30/18 07:40 Dose: Not Given Furosemide (Lasix) 20 mg PO BID [facility] Last Admin: 09/30/18 18:07 Dose: Not Given Gabapentin (Neurontin) 300 mg PO HS [facility] Last Admin: 09/30/18 22:15 Dose: 300 mg Glipizide (Glucotrol) 10 mg PO BID [facility] Last Admin: 09/30/18 18:05 Dose: 10 mg Glucagon (Glucagen Diagnostic Kit) 0 mg IM STAT PRN; Protocol PRN Reason: Hypoglycemia Protocol Ciprofloxacin (Cipro 400mg/200ml Dsw) 400 mg in 200 mls @ 133 mls/hr IVPB Q12H [facility]; Protocol Last Admin: 09/30/18 22:16 Dose: 133 mls/hr Insulin Aspart (Novolog) 0 unit SC ACHS [facility]; Protocol Last Admin: 10/01/18 07:52 Dose: Not Given Insulin Aspart (Novolog) 10 unit SC AC [facility] Last Admin: 09/30/18 18:06 Dose: 10 units Insulin Glargine (Lantus) 24 unit SC HS [facility] Last Admin: 09/30/18 22:15 Dose: 24 unit Levothyroxine Sodium (Synthroid) 100 mcg PO 0630 [facility] Last Admin: 10/01/18 06:34 Dose: 100 mcg Lisinopril (Zestril) 10 mg PO DAILY [facility] Last Admin: 09/30/18 09:13 Dose: Not Given Magnesium Oxide (Mag-Ox) 400 mg PO BID [facility] Last Admin: 09/30/18 18:06 Dose: 400 mg Nystatin (Nystop Topical Powder) 1 applic TOP BID [facility] Last Admin: 09/30/18 18:05 Dose: 1 applic Oxycodone/Acetaminophen (Percocet 5/325 Mg Tab) 2 tab PO Q6H PRN PRN Reason: Pain, severe (8-10) Stop: 10/01/18 15:15 Last Admin: 09/30/18 18:36 Dose: 2 tab Pantoprazole Sodium (Protonix Ec Tab) 40 mg PO DAILY [facility] Last Admin: 09/30/18 13:39 Dose: 40 mg Potassium Chloride (K-Dur 20 Meq Er Tab) 20 meq PO DAILY [facility] Last Admin: 09/30/18 13:40 Dose: 20 meq Prednisone (Prednisone Tab) 10 mg PO DAILY [facility] Last Admin: 09/30/18 13:39 Dose: 10 mg Rivaroxaban (Xarelto) 20 mg PO DAILY [facility] Last Admin: 09/30/18 13:40 Dose: 20 mg Saccharomyces Boulardii (Florastor) 250 mg PO Q12 [facility] Last Admin: 09/30/18 22:15 Dose: 250 mg Sertraline HCl (Zoloft) 50 mg PO DAILY [facility] Last Admin: 09/30/18 13:40 Dose: 50 mg Sitagliptin Phosphate (Januvia) 100 mg PO DAILY [facility] Last Admin: 09/30/18 09:11 Dose: Not Given Trazodone HCl (Desyrel) 50 mg PO HS [facility] Last Admin: 09/30/18 22:15 Dose: 50 mg Trimethobenzamide HCl (Tigan) 200 mg IM Q8 PRN PRN Reason: Nausea/Vomiting Vitamin B Complex/Vit C/Folic Acid (Nephro-Lavinia) 1 tab PO DAILY [facility] Last Admin: 09/30/18 13:39 Dose: 1 tab Results - Vital Signs Recent Vital Signs: Last Vital Signs Temp 97.7 F 09/30/18 23:33 Pulse 117 H 10/01/18 01:00 Resp 20 09/30/18 23:33 BP 105/55 L 09/30/18 23:33 Pulse Ox 95 09/30/18 23:33 - Labs Result Diagrams: 10/01/18 06:42 10/01/18 06:42 Labs: Laboratory Results - last 24 hr 09/30/18 09/30/18 09/30/18 11:34 11:53 11:53 WBC 14.8 H RBC 4.49 Hgb 10.3 L Hct 34.9 MCV 77.7 L MCH 22.9 L MCHC 29.5 L RDW 21.9 H Plt Count 495 H MPV 9.1 Neut % (Auto) 62.7 Lymph % (Auto) 25.1 Rice % (Auto) 9.9 Eos % (Auto) 1.3 Baso % (Auto) 1.0 Neut # (Auto) 9.3 H Lymph # (Auto) 3.7 Rice # (Auto) 1.5 H Eos # (Auto) 0.2 Baso # (Auto) 0.1 Sodium 135 Potassium 3.9 Chloride 96 L Carbon Dioxide 29 Anion Gap 14 BUN 31 H Creatinine 0.9 Est GFR ( Amer) > 60 Est GFR (Non-Af Amer) > 60 POC Glucose (mg/dL) 133 H Random Glucose 96 D Calcium 9.3 Total Bilirubin 0.3 AST 79 H D ALT 137 H D Alkaline Phosphatase 150 H Total Protein 6.4 Albumin 3.8 Globulin 2.7 Albumin/Globulin Ratio 1.4 09/30/18 09/30/18 10/01/18 17:28 21:52 02:56 WBC RBC Hgb Hct MCV MCH MCHC RDW Plt Count MPV Neut % (Auto) Lymph % (Auto) Rice % (Auto) Eos % (Auto) Baso % (Auto) Neut # (Auto) Lymph # (Auto) Rice # (Auto) Eos # (Auto) Baso # (Auto) Sodium Potassium Chloride Carbon Dioxide Anion Gap BUN Creatinine Est GFR ( Amer) Est GFR (Non-Af Amer) POC Glucose (mg/dL) 263 H 219 H 220 H Random Glucose Calcium Total Bilirubin AST ALT Alkaline Phosphatase Total Protein Albumin Globulin Albumin/Globulin Ratio 10/01/18 10/01/18 10/01/18 06:13 06:42 06:42 WBC 13.2 H RBC 4.29 Hgb 9.7 L Hct 33.1 L MCV 77.3 L MCH 22.6 L MCHC 29.2 L RDW 21.5 H Plt Count 432 H MPV 8.5 Neut % (Auto) 69.6 Lymph % (Auto) 19.0 L Rice % (Auto) 9.3 Eos % (Auto) 1.2 Baso % (Auto) 0.9 Neut # (Auto) 9.2 H Lymph # (Auto) 2.5 Rice # (Auto) 1.2 H Eos # (Auto) 0.2 Baso # (Auto) 0.1 Sodium 132 Potassium 4.6 Chloride 98 Carbon Dioxide 28 Anion Gap 10 BUN 30 H Creatinine 0.9 Est GFR ( Amer) > 60 Est GFR (Non-Af Amer) > 60 POC Glucose (mg/dL) 126 H Random Glucose 133 H D Calcium 9.1 Total Bilirubin 0.4 AST 90 H ALT 150 H Alkaline Phosphatase 119 Total Protein 6.0 L Albumin 3.5 Globulin 2.5 Albumin/Globulin Ratio 1.4 Assessment & Plan - Assessment and Plan (Free Text) Assessment: Pre-Operative Cardiac Risk assessment: 63 F with multiple comorbidies being assessed for Wipple's surgery Stress test: Negative ECHO: Normal EF and No Major valvular issues Leg dopppler: Negative for DVT Resting Tachycardia and hypotension etiology unclear This patient assessed as high risk for Cardiac events for a major surgery like Wipple's at this point due to unstable hemodynamics However if benefit outweighs the risk can proceed with the surgery after d/w the patient and the family We will optimize cardiac status as much as I can"
[2018-10-01] MEDS: Ferric Sodium Gluconat Complex 62.5 mg/5 ml Vial IVPB SCH (10:11)
[2018-10-01] MEDS: Multivitamin Vitamin B Complex (Nephro-Vite) Tab PO SCH (10:12)
[2018-10-01] MEDS: Pantoprazole 40 mg EC Tab PO SCH (10:13)
[2018-10-01] MEDS: diltiaZEM 180 mg/24 Hours CD Cap PO SCH ×2 (10:13→17:23)
[2018-10-01] MEDS: Saccharomyces Boulardi 250 mg Cap PO SCH ×2 (10:13→21:59)
[2018-10-01] MEDS: Potassium Chloride 20 mEq ER Tab PO SCH (10:14)
[2018-10-01] MEDS: Magnesium Oxide 400 mg Tab UD PO SCH ×2 (10:14→17:23)
[2018-10-01] MEDS: Ciprofloxacin 400mg/200ml D5W 400 MG/200 ML BAG IVPB SCH ×2 (10:22→22:02)
[2018-10-01] MEDS: Oxycodone/Acetaminophen 5/325 mg Tab PO PRN (13:33)
[2018-10-01] MEDS: (Lantus) Insulin Glargine, Recombinant SC SCH (22:02)
[2018-10-02] MEDS: Levothyroxine 100 MCG TAB PO SCH (05:36)
[2018-10-02 09:01] LABS: BASO # 0.2 K/uL (0.0-0.2); BASO % 1.2 % (0.0-2.0); EOS # 0.1 K/uL (0.0-0.7); EOS % 0.9 % (0.0-4.0); HEMOGLOBIN 9.6 g/dL (11.0-16.0); LYMPH # 2.6 K/uL (1.0-4.3); LYMPH % 17.6 % (20.0-40.0); MEAN CELL VOLUME 76.9 fL (81.0-99.0); MEAN CORPUSCULAR HEMOGLOBIN 23.4 pg (27.0-31.0); MEAN CORPUSCULAR HGB CONC 30.4 g/dL (33.0-37.0); MEAN PLATELET VOLUME 8.9 fL (7.2-11.7); MONO # 1.3 K/uL (0.0-0.8); MONO % 8.6 % (0.0-10.0); NEUT # 10.4 K/uL (1.8-7.0); NEUT % 71.7 % (50.0-75.0); PLATELET COUNT 438 K/uL (130-400); RBC 4.11 Mil/uL (3.80-5.20); RED CELL DISTRIBUTION WIDTH 21.6 % (11.5-14.5); WHITE BLOOD COUNT 14.6 K/uL (4.8-10.8)
[2018-10-02] MEDS: Magnesium Oxide 400 mg Tab UD PO SCH ×2 (09:31→17:47)
[2018-10-02] MEDS: Multivitamin Vitamin B Complex (Nephro-Vite) Tab PO SCH (09:31)
[2018-10-02] MEDS: Pantoprazole 40 mg EC Tab PO SCH (09:31)
[2018-10-02] MEDS: diltiaZEM 180 mg/24 Hours CD Cap PO SCH ×2 (09:31→17:46)
[2018-10-02] MEDS: Potassium Chloride 20 mEq ER Tab PO SCH (09:31)
[2018-10-02] MEDS: Saccharomyces Boulardi 250 mg Cap PO SCH ×2 (09:31→21:55)
[2018-10-02] MEDS: (Novolog) Insulin Aspart, Recombinant 100 u/ml 10 ml vial SC SCH ×7 (09:33→22:02)
[2018-10-02 09:34] LABS: ALB/GLOB RATIO 1.3 (1.0-2.1); ALBUMIN 3.4 g/dL (3.5-5.0); ALT/SGPT 146 U/L (9-52); AST/SGOT 67 U/L (14-36); BLOOD UREA NITROGEN 30 mg/dL (7-17); CALCIUM 9.2 mg/dl (8.6-10.4); GFR NON-AFRICAN AMERICAN > 60
--- NOTE | 2018-10-02 09:38 | CP.PCM.PN ---
"Subjective - Date & Time of Evaluation Date of Evaluation: 10/01/18 Time of Evaluation: 17:25 - Subjective Subjective: Patient seen and examined at bedside. 63 F with multiple co morbidities with panreatic Ca consulted for pre Op cardiac risk assessment for Wipple's surgery. Denies chest pain and dyspnea Objective - Additional Findings Additional findings: - Constitutional Appears: Non-toxic, Chronically Ill - Head Exam Head Exam: ATRAUMATIC, NORMAL INSPECTION, NORMOCEPHALIC - Eye Exam Eye Exam: EOMI, Normal appearance. absent: Scleral icterus - ENT Exam ENT Exam: Mucous Membranes Moist - Neck Exam Neck Exam: Normal Inspection - Respiratory Exam Respiratory Exam: Decreased Breath Sounds. absent: Wheezes, NORMAL BREATHING PATTERN, Accessory Muscle Use, - Cardiovascular Exam Cardiovascular Exam: Tachycardia, +S1, +S2. absent: RRR - GI/Abdominal Exam GI & Abdominal Exam: Soft, Normal Bowel Sounds. absent: Tenderness - Extremities Exam Extremities Exam: Normal Inspection. absent: Pedal Edema - Neurological Exam Neurological Exam: Alert, Awake - Psychiatric Exam Psychiatric exam: Normal Affect, Normal Mood - Skin Skin Exam: Dry, Intact, Normal Color, Warm Assessment and Plan - Assessment and Plan (Free Text) Assessment: 63 year old female with PMHx of COPD, Pancreatic Mass, Chronic Diastolic CHF, Hypertension, DM II, Fibromyalgia, Adrenal Insufficiency, Hypothyroidism, Hx of DVT, Gout, Depression, and Current Closed Fracture of Right proximal tibia admitted for evluation and treatment of COPD exacerbation. Hospital Course Complicated with episodes of hypotension. Plan: Hypotension (Stable) -NS bolus of 1L ORdered -Will hold BP meds at this time and observe COPD Exacerbation - Continue home medication: Breo - Duonebs Q4h prn C. Diff During Previous Admission - Completed course of Vancomycin - Repeat Cdiff negative Pancreatic Mass - Surgery consulted, Dr. Bright; help appreciated * mass appears resectable, however, patient is a not a surgical candidate at this time due to other conditions/comorbities. performance status of 4 currently would need to be improved to 2 for surgical consideration - CEA: 42.5 - CA19-9: 1980 - CA125: 36.2 - Abdomen/Pelvic CT: Heterogeneous hyperdense pancreatic mass measuring approximately 2.7 x 2.5 cm at the pancreatic body/tail. Ectatic dilated pancreatic duct. Additional cystic heterogeneous focus measuring approximately 15 x 14 mm is noted at the superior aspect of the pancreas. Appearance worrisome for malignant neoplasm. Wall thickening involving the 2nd portion of the duodenum of uncertain significance; considerations include infectious, inflammatory, or malignant etiologies. Correlate clinically and recommend further evaluation with direct visualization if indicated. Small pelvic free fluid. Tachycardia - Cardiology consulted, Dr. Jeong; F/U Recs. - Cardizem to 180mg PO BID (from 120mg, per Dr. Pineda) - Will continue to monitor - ECHO (09/29/18): PENDING READ - Sress Test (09/30/18): PENDING REPORT Stage 1 Gluteal Ulcer - Patient has been spraying hydrogen peroxide on it - Will consult Nursing Wound Care, - Turn Q2H - Consider Air Mattress Intertrigo Redness us Groin Area 2/2 to incontinence -Start Nystatin Powder BID UTI UA: Positive Leuk ES | Urine Culture: Gram Negative Rods, F/U Sensitivities Mgmt: Ciprofloxacin 400mg Q12H Chronic Diastolic Congestive Heart Failure - Stable - Last echo 2016 showed Grade III reversible restrictive diastolic dysfunction, EF 55% - F/U ECHO, Ordered 09/29/18 - Lasix 20mg PO BID Hypertension - Home medications: * Lisinopril 10mg PO daily (held) * Cardizem 180mg PO BID (held) Diabetes Mellitus - Accuchecks, Hypoglycemia protocol - HgA1c 9.3 (01/2018); repeat A1c 9.0 - Insulin sliding scale - medium - Continue home medications: Januvia 100 mg PO daily, Glipizide 10mg PO BID, Gabapentin 300mg PO HS - Novolog 10 u SC AC - Lantus 24 units HS - Endocrinology consult. Dr Rhodes recs appreciated. Fibromyalgia - Home medication: Diazepam 5mg PO BID - Flexeril 5mg PO TID (Holding parameters- hold if sleeping/sedated, hypotension) - Percocet 5/325mg 2 tab Q6H prn for pain - Gabapentin 300mg PO HS Adrenal Insufficiency - On prednisone 10mg PO daily Hypothyroidism - Continue Synthroid 100mcg PO daily - TSH/Free T4: 9.5/0.30 Hypokalemia -repleted -continue to monitor and replete as needed History of DVT/PE - Continue Xarelto 20mg PO daily Gout - Continue Colchicine Depression - Consulted psychiatry, Dr. Dexter, recs appreciated. - Per psychiatry, Started zoloft 50mg po daily (consider tapering up to 100mg), trazodone 50mg po hs - Valium 5mg po bid Closed fracture of right proximal tibia - Orthopedic surgery consulted, Dr. Hernandez; help appreciated - Per ortho: continue well padded knee immobilizer; non operative; recommends PT/OT, NWB, VTE proph, and to f/u with Dr. Hernandez 1-2 weeks upon d/c Prophylactic Measures - Protonix 40mg PO daily, Probiotics - Xarelto 20mg PO daily - PT/OT - Palliative care consulted to discuss goals of care - Case management consulted for discharge planning to [facility] Pre-Operative Cardiac Risk assessment: 63 F with multiple comorbidies being assessed for Wipple's surgery Stress test: Negative ECHO: Normal EF and No Major valvular issues Leg dopppler: Negative for DVT Resting Tachycardia and hypotension etiology unclear This patient assessed as high risk for Cardiac events for a major surgery like Wipple's at this point due to unstable hemodynamics However if benefit outweighs the risk can proceed with the surgery after d/w the patient and the family We will optimize cardiac status as much as we can Patient wants to get the surgery done inspite of her high risk Objective - Vital Signs/Intake and Output Vital Signs (last 24 hours): Temp Pulse Resp BP Pulse Ox 97.7 F 123 H 20 111/63 94 L 10/02/18 08:00 10/02/18 08:03 10/02/18 08:00 10/02/18 09:33 10/02/18 08:00 Intake and Output: 10/02/18 10/02/18 06:59 18:59 Output Total 1700 Balance -1700 - Medications Medications: Current Medications Acetaminophen (Tylenol 325mg Tab) 650 mg PO Q4 PRN PRN Reason: Pain, Mild (1-3) Last Admin: 09/29/18 12:10 Dose: 650 mg Colchicine (Colocrys) 0.6 mg PO BID [facility] Last Admin: 10/02/18 09:32 Dose: 0.6 mg Cyclobenzaprine HCl (Flexeril) 5 mg PO TID [facility] Last Admin: 10/01/18 17:22 Dose: 5 mg Dextrose (Dextrose 50% Inj) 0 ml IV STAT PRN; Protocol PRN Reason: Hypoglycemia Protocol Dextrose (Glutose 15) 0 gm PO ONCE PRN; Protocol PRN Reason: Hypoglycemia Protocol Diazepam (Valium) 5 mg PO BID [facility] Last Admin: 10/02/18 09:30 Dose: 5 mg Dicyclomine HCl (Bentyl) 20 mg PO TID [facility] Last Admin: 10/02/18 09:32 Dose: 20 mg Diltiazem HCl (Cardizem Cd) 180 mg PO BID [facility] Last Admin: 10/02/18 09:31 Dose: 180 mg Ergocalciferol (Drisdol 50,000 Intl Units Cap) 1 cap PO Q7D [facility] Last Admin: 09/27/18 20:16 Dose: 1 cap Ferrous Gluconate (Fergon) 324 mg PO TIDCC [facility] Last Admin: 10/02/18 09:31 Dose: 324 mg Fluticasone/Vilanterol (Breo Ellipta 100-25 Mcg Inh) 1 puff INH RQ24 [facility] Last Admin: 09/30/18 07:40 Dose: Not Given Furosemide (Lasix) 20 mg PO BID [facility] Last Admin: 10/02/18 09:33 Dose: Not Given Gabapentin (Neurontin) 300 mg PO HS [facility] Last Admin: 10/01/18 21:59 Dose: 300 mg Glipizide (Glucotrol) 10 mg PO BID [facility] Last Admin: 10/02/18 09:32 Dose: 10 mg Glucagon (Glucagen Diagnostic Kit) 0 mg IM STAT PRN; Protocol PRN Reason: Hypoglycemia Protocol Ciprofloxacin (Cipro 400mg/200ml Dsw) 400 mg in 200 mls @ 133 mls/hr IVPB Q12H [facility]; Protocol Last Admin: 10/01/18 22:02 Dose: 133 mls/hr Insulin Aspart (Novolog) 0 unit SC ACHS [facility]; Protocol Last Admin: 10/02/18 09:33 Dose: 2 units Insulin Aspart (Novolog) 10 unit SC AC [facility] Last Admin: 10/02/18 09:34 Dose: 10 units Insulin Glargine (Lantus) 24 unit SC HS [facility] Last Admin: 10/01/18 22:02 Dose: 24 unit Levothyroxine Sodium (Synthroid) 100 mcg PO 0630 [facility] Last Admin: 10/02/18 05:36 Dose: 100 mcg Lisinopril (Zestril) 10 mg PO DAILY [facility] Last Admin: 10/01/18 10:13 Dose: 10 mg Magnesium Oxide (Mag-Ox) 400 mg PO BID [facility] Last Admin: 10/02/18 09:31 Dose: 400 mg Nystatin (Nystop Topical Powder) 1 applic TOP BID [facility] Last Admin: 10/02/18 09:34 Dose: 1 applic Pantoprazole Sodium (Protonix Ec Tab) 40 mg PO DAILY [facility] Last Admin: 10/02/18 09:31 Dose: 40 mg Potassium Chloride (K-Dur 20 Meq Er Tab) 20 meq PO DAILY [facility] Last Admin: 10/02/18 09:31 Dose: 20 meq Prednisone (Prednisone Tab) 10 mg PO DAILY [facility] Last Admin: 10/02/18 09:31 Dose: 10 mg Rivaroxaban (Xarelto) 20 mg PO DAILY [facility] Last Admin: 10/02/18 09:32 Dose: 20 mg Saccharomyces Boulardii (Florastor) 250 mg PO Q12 [facility] Last Admin: 10/02/18 09:31 Dose: 250 mg Sertraline HCl (Zoloft) 50 mg PO DAILY [facility] Last Admin: 10/02/18 09:31 Dose: 50 mg Sitagliptin Phosphate (Januvia) 100 mg PO DAILY [facility] Last Admin: 10/02/18 09:31 Dose: 100 mg Trazodone HCl (Desyrel) 50 mg PO HS [facility] Last Admin: 10/01/18 21:59 Dose: 50 mg Trimethobenzamide HCl (Tigan) 200 mg IM Q8 PRN PRN Reason: Nausea/Vomiting Vitamin B Complex/Vit C/Folic Acid (Nephro-Lavinia) 1 tab PO DAILY [facility] Last Admin: 10/02/18 09:31 Dose: 1 tab - Labs Labs: 10/02/18 08:52 10/02/18 08:52 PT 22.3 SECONDS (9.7-12.2) H 09/20/18 13:45 INR 2.0 09/20/18 13:45 APTT 33 SECONDS (21-34) 09/20/18 13:45"
[2018-10-02] MEDS: Ciprofloxacin 400mg/200ml D5W 400 MG/200 ML BAG IVPB SCH ×2 (10:21→22:00)
[2018-10-02 11:51] LABS: ANISOCYTOSIS MODERATE; BANDS 4 % (0-2); EOSINOPHIL 1 % (0-4); LYMPHOCYTE 18 % (20-40); METAMYELOCYTE 1 % (0-0); MICROCYTOSIS SLIGHT; MONOCYTE 3 % (0-10); MYELOCYTE 3 % (0-0); NEUTROPHIL 70 % (50-75); PLATELET ESTIMATE NORMAL (NORMAL); POIKILOCYTOSIS SLIGHT; TOTAL CELLS COUNTED 100
[2018-10-02 11:52] LABS: HYPOCHROMIC SLIGHT; OVALOCYTES SLIGHT; POLYCHROMIC SLIGHT; SCHISTOCYTES SLIGHT; TEARDROP CELLS SLIGHT
[2018-10-02] MEDS: Oxycodone/Acetaminophen 5/325 mg Tab PO PRN ×2 (13:03→22:05)
--- NOTE | 2018-10-02 19:17 | CP.PCM.PN ---
Subjective - Date & Time of Evaluation Date of Evaluation: 09/30/18 Time of Evaluation: 12:00 - Subjective Subjective: No complaints. Objective - Vital Signs/Intake and Output Vital Signs (last 24 hours): Temp Pulse Resp BP Pulse Ox 97.9 F 125 H 20 120/79 95 10/02/18 17:44 10/02/18 17:44 10/02/18 17:44 10/02/18 17:47 10/02/18 17:44 - Medications Medications: Current Medications Acetaminophen (Tylenol 325mg Tab) 650 mg PO Q4 PRN PRN Reason: Pain, Mild (1-3) Last Admin: 09/29/18 12:10 Dose: 650 mg Colchicine (Colocrys) 0.6 mg PO BID [facility] Last Admin: 10/02/18 17:45 Dose: 0.6 mg Cyclobenzaprine HCl (Flexeril) 5 mg PO TID [facility] Last Admin: 10/02/18 17:45 Dose: 5 mg Dextrose (Dextrose 50% Inj) 0 ml IV STAT PRN; Protocol PRN Reason: Hypoglycemia Protocol Dextrose (Glutose 15) 0 gm PO ONCE PRN; Protocol PRN Reason: Hypoglycemia Protocol Diazepam (Valium) 5 mg PO BID [facility] Last Admin: 10/02/18 17:46 Dose: 5 mg Dicyclomine HCl (Bentyl) 20 mg PO TID [facility] Last Admin: 10/02/18 17:45 Dose: 20 mg Diltiazem HCl (Cardizem Cd) 180 mg PO BID [facility] Last Admin: 10/02/18 17:46 Dose: 180 mg Ergocalciferol (Drisdol 50,000 Intl Units Cap) 1 cap PO Q7D [facility] Last Admin: 09/27/18 20:16 Dose: 1 cap Ferrous Gluconate (Fergon) 324 mg PO TIDCC [facility] Last Admin: 10/02/18 17:46 Dose: 324 mg Fluticasone/Vilanterol (Breo Ellipta 100-25 Mcg Inh) 1 puff INH RQ24 [facility] Last Admin: 09/30/18 07:40 Dose: Not Given Furosemide (Lasix) 20 mg PO BID [facility] Last Admin: 10/02/18 17:47 Dose: 20 mg Gabapentin (Neurontin) 300 mg PO HS [facility] Last Admin: 10/01/18 21:59 Dose: 300 mg Glipizide (Glucotrol) 10 mg PO BID [facility] Last Admin: 10/02/18 17:47 Dose: 10 mg Glucagon (Glucagen Diagnostic Kit) 0 mg IM STAT PRN; Protocol PRN Reason: Hypoglycemia Protocol Ciprofloxacin (Cipro 400mg/200ml Dsw) 400 mg in 200 mls @ 133 mls/hr IVPB Q12H [facility]; Protocol Last Admin: 10/02/18 10:21 Dose: 133 mls/hr Insulin Aspart (Novolog) 0 unit SC ACHS [facility]; Protocol Last Admin: 10/02/18 17:40 Dose: 4 units Insulin Aspart (Novolog) 10 unit SC AC [facility] Last Admin: 10/02/18 17:39 Dose: 10 units Insulin Glargine (Lantus) 24 unit SC HS [facility] Last Admin: 10/01/18 22:02 Dose: 24 unit Levothyroxine Sodium (Synthroid) 100 mcg PO 0630 [facility] Last Admin: 10/02/18 05:36 Dose: 100 mcg Lisinopril (Zestril) 10 mg PO DAILY [facility] Last Admin: 10/02/18 13:02 Dose: 10 mg Magnesium Oxide (Mag-Ox) 400 mg PO BID [facility] Last Admin: 10/02/18 17:47 Dose: 400 mg Nystatin (Nystop Topical Powder) 1 applic TOP BID [facility] Last Admin: 10/02/18 17:40 Dose: 1 applic Oxycodone/Acetaminophen (Percocet 5/325 Mg Tab) 2 tab PO Q6H PRN PRN Reason: Pain, severe (8-10) Stop: 10/05/18 12:11 Last Admin: 10/02/18 13:03 Dose: 2 tab Pantoprazole Sodium (Protonix Ec Tab) 40 mg PO DAILY [facility] Last Admin: 10/02/18 09:31 Dose: 40 mg Potassium Chloride (K-Dur 20 Meq Er Tab) 20 meq PO DAILY [facility] Last Admin: 10/02/18 09:31 Dose: 20 meq Prednisone (Prednisone Tab) 10 mg PO DAILY [facility] Last Admin: 10/02/18 09:31 Dose: 10 mg Rivaroxaban (Xarelto) 20 mg PO DAILY [facility] Last Admin: 10/02/18 09:32 Dose: 20 mg Saccharomyces Boulardii (Florastor) 250 mg PO Q12 [facility] Last Admin: 10/02/18 09:31 Dose: 250 mg Sertraline HCl (Zoloft) 50 mg PO DAILY [facility] Last Admin: 10/02/18 09:31 Dose: 50 mg Sitagliptin Phosphate (Januvia) 100 mg PO DAILY [facility] Last Admin: 10/02/18 09:31 Dose: 100 mg Trazodone HCl (Desyrel) 50 mg PO HS [facility] Last Admin: 10/01/18 21:59 Dose: 50 mg Trimethobenzamide HCl (Tigan) 200 mg IM Q8 PRN PRN Reason: Nausea/Vomiting Vitamin B Complex/Vit C/Folic Acid (Nephro-Lavinia) 1 tab PO DAILY [facility] Last Admin: 10/02/18 09:31 Dose: 1 tab - Labs Labs: 10/02/18 08:52 10/02/18 08:52 PT 22.3 SECONDS (9.7-12.2) H 09/20/18 13:45 INR 2.0 09/20/18 13:45 APTT 33 SECONDS (21-34) 09/20/18 13:45 - Head Exam Head Exam: ATRAUMATIC - Eye Exam Eye Exam: Normal appearance - ENT Exam ENT Exam: Mucous Membranes Dry - Respiratory Exam Respiratory Exam: NORMAL BREATHING PATTERN - Cardiovascular Exam Cardiovascular Exam: +S1, +S2 - GI/Abdominal Exam GI & Abdominal Exam: Normal Bowel Sounds Assessment and Plan (1) Anemia Assessment & Plan: iron deficiency anemia on IV iron transfusion support PRN Status: Acute (2) Pancreatic cancer Assessment & Plan: no evidence of distant metastasis not a current surgical candidate due to debility surgical reevaluation after rehab Status: Acute
--- NOTE | 2018-10-02 19:18 | CP.PCM.PN ---
Subjective - Date & Time of Evaluation Date of Evaluation: 10/01/18 Time of Evaluation: 15:00 - Subjective Subjective: No complaints. Objective - Vital Signs/Intake and Output Vital Signs (last 24 hours): Temp Pulse Resp BP Pulse Ox 97.9 F 125 H 20 120/79 95 10/02/18 17:44 10/02/18 17:44 10/02/18 17:44 10/02/18 17:47 10/02/18 17:44 - Medications Medications: Current Medications Acetaminophen (Tylenol 325mg Tab) 650 mg PO Q4 PRN PRN Reason: Pain, Mild (1-3) Last Admin: 09/29/18 12:10 Dose: 650 mg Colchicine (Colocrys) 0.6 mg PO BID [facility] Last Admin: 10/02/18 17:45 Dose: 0.6 mg Cyclobenzaprine HCl (Flexeril) 5 mg PO TID [facility] Last Admin: 10/02/18 17:45 Dose: 5 mg Dextrose (Dextrose 50% Inj) 0 ml IV STAT PRN; Protocol PRN Reason: Hypoglycemia Protocol Dextrose (Glutose 15) 0 gm PO ONCE PRN; Protocol PRN Reason: Hypoglycemia Protocol Diazepam (Valium) 5 mg PO BID [facility] Last Admin: 10/02/18 17:46 Dose: 5 mg Dicyclomine HCl (Bentyl) 20 mg PO TID [facility] Last Admin: 10/02/18 17:45 Dose: 20 mg Diltiazem HCl (Cardizem Cd) 180 mg PO BID [facility] Last Admin: 10/02/18 17:46 Dose: 180 mg Ergocalciferol (Drisdol 50,000 Intl Units Cap) 1 cap PO Q7D [facility] Last Admin: 09/27/18 20:16 Dose: 1 cap Ferrous Gluconate (Fergon) 324 mg PO TIDCC [facility] Last Admin: 10/02/18 17:46 Dose: 324 mg Fluticasone/Vilanterol (Breo Ellipta 100-25 Mcg Inh) 1 puff INH RQ24 [facility] Last Admin: 09/30/18 07:40 Dose: Not Given Furosemide (Lasix) 20 mg PO BID [facility] Last Admin: 10/02/18 17:47 Dose: 20 mg Gabapentin (Neurontin) 300 mg PO HS [facility] Last Admin: 10/01/18 21:59 Dose: 300 mg Glipizide (Glucotrol) 10 mg PO BID [facility] Last Admin: 10/02/18 17:47 Dose: 10 mg Glucagon (Glucagen Diagnostic Kit) 0 mg IM STAT PRN; Protocol PRN Reason: Hypoglycemia Protocol Ciprofloxacin (Cipro 400mg/200ml Dsw) 400 mg in 200 mls @ 133 mls/hr IVPB Q12H [facility]; Protocol Last Admin: 10/02/18 10:21 Dose: 133 mls/hr Insulin Aspart (Novolog) 0 unit SC ACHS [facility]; Protocol Last Admin: 10/02/18 17:40 Dose: 4 units Insulin Aspart (Novolog) 10 unit SC AC [facility] Last Admin: 10/02/18 17:39 Dose: 10 units Insulin Glargine (Lantus) 24 unit SC HS [facility] Last Admin: 10/01/18 22:02 Dose: 24 unit Levothyroxine Sodium (Synthroid) 100 mcg PO 0630 [facility] Last Admin: 10/02/18 05:36 Dose: 100 mcg Lisinopril (Zestril) 10 mg PO DAILY [facility] Last Admin: 10/02/18 13:02 Dose: 10 mg Magnesium Oxide (Mag-Ox) 400 mg PO BID [facility] Last Admin: 10/02/18 17:47 Dose: 400 mg Nystatin (Nystop Topical Powder) 1 applic TOP BID [facility] Last Admin: 10/02/18 17:40 Dose: 1 applic Oxycodone/Acetaminophen (Percocet 5/325 Mg Tab) 2 tab PO Q6H PRN PRN Reason: Pain, severe (8-10) Stop: 10/05/18 12:11 Last Admin: 10/02/18 13:03 Dose: 2 tab Pantoprazole Sodium (Protonix Ec Tab) 40 mg PO DAILY [facility] Last Admin: 10/02/18 09:31 Dose: 40 mg Potassium Chloride (K-Dur 20 Meq Er Tab) 20 meq PO DAILY [facility] Last Admin: 10/02/18 09:31 Dose: 20 meq Prednisone (Prednisone Tab) 10 mg PO DAILY [facility] Last Admin: 10/02/18 09:31 Dose: 10 mg Rivaroxaban (Xarelto) 20 mg PO DAILY [facility] Last Admin: 10/02/18 09:32 Dose: 20 mg Saccharomyces Boulardii (Florastor) 250 mg PO Q12 [facility] Last Admin: 10/02/18 09:31 Dose: 250 mg Sertraline HCl (Zoloft) 50 mg PO DAILY [facility] Last Admin: 10/02/18 09:31 Dose: 50 mg Sitagliptin Phosphate (Januvia) 100 mg PO DAILY [facility] Last Admin: 10/02/18 09:31 Dose: 100 mg Trazodone HCl (Desyrel) 50 mg PO HS [facility] Last Admin: 10/01/18 21:59 Dose: 50 mg Trimethobenzamide HCl (Tigan) 200 mg IM Q8 PRN PRN Reason: Nausea/Vomiting Vitamin B Complex/Vit C/Folic Acid (Nephro-Lavinia) 1 tab PO DAILY [facility] Last Admin: 10/02/18 09:31 Dose: 1 tab - Labs Labs: 10/02/18 08:52 10/02/18 08:52 PT 22.3 SECONDS (9.7-12.2) H 09/20/18 13:45 INR 2.0 09/20/18 13:45 APTT 33 SECONDS (21-34) 09/20/18 13:45 - Head Exam Head Exam: ATRAUMATIC - Eye Exam Eye Exam: Normal appearance - ENT Exam ENT Exam: Mucous Membranes Dry - Respiratory Exam Respiratory Exam: NORMAL BREATHING PATTERN - Cardiovascular Exam Cardiovascular Exam: +S1, +S2 - GI/Abdominal Exam GI & Abdominal Exam: Normal Bowel Sounds Assessment and Plan (1) Anemia Assessment & Plan: iron deficiency anemia on IV iron transfusion support PRN Status: Acute (2) Pancreatic cancer Assessment & Plan: no evidence of distant metastasis not a current surgical candidate due to debility surgical reevaluation after rehab Status: Acute
--- NOTE | 2018-10-02 19:19 | CP.PCM.PN ---
Subjective - Date & Time of Evaluation Date of Evaluation: 10/02/18 Time of Evaluation: 13:00 - Subjective Subjective: No complaints. Objective - Vital Signs/Intake and Output Vital Signs (last 24 hours): Temp Pulse Resp BP Pulse Ox 97.9 F 125 H 20 120/79 95 10/02/18 17:44 10/02/18 17:44 10/02/18 17:44 10/02/18 17:47 10/02/18 17:44 - Medications Medications: Current Medications Acetaminophen (Tylenol 325mg Tab) 650 mg PO Q4 PRN PRN Reason: Pain, Mild (1-3) Last Admin: 09/29/18 12:10 Dose: 650 mg Colchicine (Colocrys) 0.6 mg PO BID [facility] [place] Last Admin: 10/02/18 17:45 Dose: 0.6 mg Cyclobenzaprine HCl (Flexeril) 5 mg PO TID [facility] [place] Last Admin: 10/02/18 17:45 Dose: 5 mg Dextrose (Dextrose 50% Inj) 0 ml IV STAT PRN; Protocol PRN Reason: Hypoglycemia Protocol Dextrose (Glutose 15) 0 gm PO ONCE PRN; Protocol PRN Reason: Hypoglycemia Protocol Diazepam (Valium) 5 mg PO BID [facility] [place] Last Admin: 10/02/18 17:46 Dose: 5 mg Dicyclomine HCl (Bentyl) 20 mg PO TID [facility] [place] Last Admin: 10/02/18 17:45 Dose: 20 mg Diltiazem HCl (Cardizem Cd) 180 mg PO BID [facility] [place] Last Admin: 10/02/18 17:46 Dose: 180 mg Ergocalciferol (Drisdol 50,000 Intl Units Cap) 1 cap PO Q7D [facility] [place] Last Admin: 09/27/18 20:16 Dose: 1 cap Ferrous Gluconate (Fergon) 324 mg PO TIDCC [facility] [place] Last Admin: 10/02/18 17:46 Dose: 324 mg Fluticasone/Vilanterol (Breo Ellipta 100-25 Mcg Inh) 1 puff INH RQ24 [facility] [place] Last Admin: 09/30/18 07:40 Dose: Not Given Furosemide (Lasix) 20 mg PO BID [facility] [place] Last Admin: 10/02/18 17:47 Dose: 20 mg Gabapentin (Neurontin) 300 mg PO HS [facility] [place] Last Admin: 10/01/18 21:59 Dose: 300 mg Glipizide (Glucotrol) 10 mg PO BID [facility] [place] Last Admin: 10/02/18 17:47 Dose: 10 mg Glucagon (Glucagen Diagnostic Kit) 0 mg IM STAT PRN; Protocol PRN Reason: Hypoglycemia Protocol Ciprofloxacin (Cipro 400mg/200ml Dsw) 400 mg in 200 mls @ 133 mls/hr IVPB Q12H [facility] [place]; Protocol Last Admin: 10/02/18 10:21 Dose: 133 mls/hr Insulin Aspart (Novolog) 0 unit SC ACHS [facility] [place]; Protocol Last Admin: 10/02/18 17:40 Dose: 4 units Insulin Aspart (Novolog) 10 unit SC AC [facility] [place] Last Admin: 10/02/18 17:39 Dose: 10 units Insulin Glargine (Lantus) 24 unit SC HS [facility] [place] Last Admin: 10/01/18 22:02 Dose: 24 unit Levothyroxine Sodium (Synthroid) 100 mcg PO 0630 [facility] [place] Last Admin: 10/02/18 05:36 Dose: 100 mcg Lisinopril (Zestril) 10 mg PO DAILY [facility] [place] Last Admin: 10/02/18 13:02 Dose: 10 mg Magnesium Oxide (Mag-Ox) 400 mg PO BID [facility] [place] Last Admin: 10/02/18 17:47 Dose: 400 mg Nystatin (Nystop Topical Powder) 1 applic TOP BID [facility] [place] Last Admin: 10/02/18 17:40 Dose: 1 applic Oxycodone/Acetaminophen (Percocet 5/325 Mg Tab) 2 tab PO Q6H PRN PRN Reason: Pain, severe (8-10) Stop: 10/05/18 12:11 Last Admin: 10/02/18 13:03 Dose: 2 tab Pantoprazole Sodium (Protonix Ec Tab) 40 mg PO DAILY [facility] [place] Last Admin: 10/02/18 09:31 Dose: 40 mg Potassium Chloride (K-Dur 20 Meq Er Tab) 20 meq PO DAILY [facility] [place] Last Admin: 10/02/18 09:31 Dose: 20 meq Prednisone (Prednisone Tab) 10 mg PO DAILY [facility] [place] Last Admin: 10/02/18 09:31 Dose: 10 mg Rivaroxaban (Xarelto) 20 mg PO DAILY [facility] [place] Last Admin: 10/02/18 09:32 Dose: 20 mg Saccharomyces Boulardii (Florastor) 250 mg PO Q12 [facility] [place] Last Admin: 10/02/18 09:31 Dose: 250 mg Sertraline HCl (Zoloft) 50 mg PO DAILY [facility] [place] Last Admin: 10/02/18 09:31 Dose: 50 mg Sitagliptin Phosphate (Januvia) 100 mg PO DAILY [facility] [place] Last Admin: 10/02/18 09:31 Dose: 100 mg Trazodone HCl (Desyrel) 50 mg PO HS [facility] [place] Last Admin: 10/01/18 21:59 Dose: 50 mg Trimethobenzamide HCl (Tigan) 200 mg IM Q8 PRN PRN Reason: Nausea/Vomiting Vitamin B Complex/Vit C/Folic Acid (Nephro-Lavinia) 1 tab PO DAILY [facility] [place] Last Admin: 10/02/18 09:31 Dose: 1 tab - Labs Labs: 10/02/18 08:52 10/02/18 08:52 PT 22.3 SECONDS (9.7-12.2) H 09/20/18 13:45 INR 2.0 09/20/18 13:45 APTT 33 SECONDS (21-34) 09/20/18 13:45 - Head Exam Head Exam: ATRAUMATIC - Eye Exam Eye Exam: Normal appearance - ENT Exam ENT Exam: Mucous Membranes Dry - Respiratory Exam Respiratory Exam: NORMAL BREATHING PATTERN - Cardiovascular Exam Cardiovascular Exam: +S1, +S2 - GI/Abdominal Exam GI & Abdominal Exam: Normal Bowel Sounds Assessment and Plan (1) Anemia Assessment & Plan: iron deficiency anemia on IV iron transfusion support PRN Status: Acute (2) Pancreatic cancer Assessment & Plan: no evidence of distant metastasis not a current surgical candidate due to debility surgical reevaluation after rehab Status: Acute
--- NOTE | 2018-10-02 20:19 | CARD ---
APPROVED REPORT Date of service: 09/30/2018 Protocol: LEXISCAN Test Type: LEXISCAN STRESS Test Indications: CHEST PAIN Medical History: CP Target HR: 156 bpm Resting ECG: SINUS TACH Resting Heart Rate: 131 bpm Resting Blood Pressure: 132/80mmHg submaximum (85%): 133 bpm TEST SUMMARY PREINFSNHYPERV.01:[id number]/80.0. INFUSIONDOSE 100:300.00.01.0129/.0. [id number]/80.0. PROCEDURE Pharmacologic stress testing was performed using 0.4mg per 5ml of regadenoson given intravenously over 7-10 seconds. POST EXERCISE Reason for Termination: Protocol Completed Target HR: No Max HR: 129 bpm 90% of Maximum Predicted HR: 156 bpm Exercise duration: 00:30 min:sec, 0 Stage Exercise capacity: 1.0METs Max Blood Pressure: 134/80mmHg Blood Pressure response to exercise: normal resting BP - appropriate response Heart Rate response to exercise: appropriate Chest Pain: No, none Angina index: 0 Arrhythmia: No, none ST Change: No, none Deviation: 0 mm INTERPRETATION Stress EKG Conclusion: NEGATIVE LEXISCAN STRESS TEST NORMAL BP RESPONSE TO LEXISCAN NUCLEAR STUDIES TO BE READ SEPARATELY EXAM: Myocardial Perfusion STRESS/REST Imaging Protocol The imaging protocol used to acquire images was Stress Tc-99m/rest Tc-99m 1 day Stress Spect myocardial perfusion imaging was performed in supine position 45 minutes following the injection of 13.1 mCi of Tc-99 Myoview. Gated Rest Spect was performed 45 minutes after intravenous 32 mCi Tc-99 Myoview injection. The images were gated to evaluate regional wall motion and calculate ventricular ejection fraction.Images were reconstructed using backfilter projection method in short horizontal and verticle long axis. Spect slices were generated. RESTING DATA EDV42.54kySH2.20L/min ESV18.00mlMyocardial Mass87.00g Av. Heart Fafv481.00bpm EF57.00% STRESS DATA EDV41.45gnAM4.80L/min ESV13.00mlMyocardial Mass84.00g EF68.00% Regional WT score at stress:3.00 Regional WM score at stress:1.00 Summed WT score at stress:45.00 Av. Heart Chtl380.00bpmSummed WM score at stress:8.00 LV Perf. Quant 17 Seg. SSS0.00 17 Seg. SRS0.00 17 Seg. SDS0.00 Stress Defect Extent (% LAD)0.00Rest Defect Extent (% LAD)0.00Rev. Defect Extent (% LAD)0.00 Stress Defect Extent (% LCX)0.00Rest Defect Extent (% LCX)0.00Rev. Defect Extent (% LCX)0.00 Stress Defect Extent (% RCA)0.00Rest Defect Extent (% RCA)0.00Rev. Defect Extent (% RCA)0.00 Stress Defect Extent (% FITZ)0.00Rest Defect Extent (% FITZ)0.00Rev. Defect Extent (% FITZ)0.00 Other Information Quality:Good IMPRESSION Normal Myocardial Perfusion exercise stress study Left Ventricle LV Function:Left ventricle systolic function is normal. The Ejection Fraction is >55%. Metabolism/Perfusion There are no perfusion/metabolism defects. Conclusion 1. Normal Lexiscan Nuclear Stress test. Normal EF.
[2018-10-02] MEDS: (Lantus) Insulin Glargine, Recombinant SC SCH (21:55)
--- NOTE | 2018-10-02 22:52 | CP.PCM.PN ---
"Subjective - Date & Time of Evaluation Date of Evaluation: 10/02/18 Time of Evaluation: 14:20 - Subjective Subjective: Patient seen and examined at bedside. Still tachycardiac Objective - Additional Findings Additional findings: - Constitutional Appears: Non-toxic, Chronically Ill - Head Exam Head Exam: ATRAUMATIC, NORMAL INSPECTION, NORMOCEPHALIC - Eye Exam Eye Exam: EOMI, Normal appearance. absent: Scleral icterus - ENT Exam ENT Exam: Mucous Membranes Moist - Neck Exam Neck Exam: Normal Inspection - Respiratory Exam Respiratory Exam: Decreased Breath Sounds. absent: Wheezes, NORMAL BREATHING PATTERN, Accessory Muscle Use, - Cardiovascular Exam Cardiovascular Exam: Tachycardia, +S1, +S2. absent: RRR - GI/Abdominal Exam GI & Abdominal Exam: Soft, Normal Bowel Sounds. absent: Tenderness - Extremities Exam Extremities Exam: Normal Inspection. absent: Pedal Edema - Neurological Exam Neurological Exam: Alert, Awake - Psychiatric Exam Psychiatric exam: Normal Affect, Normal Mood - Skin Skin Exam: Dry, Intact, Normal Color, Warm Assessment and Plan - Assessment and Plan (Free Text) Assessment: 63 year old female with PMHx of COPD, Pancreatic Mass, Chronic Diastolic CHF, Hypertension, DM II, Fibromyalgia, Adrenal Insufficiency, Hypothyroidism, Hx of DVT, Gout, Depression, and Current Closed Fracture of Right proximal tibia admitted for evluation and treatment of COPD exacerbation. Hospital Course Complicated with episodes of hypotension. Plan: Hypotension (Stable) -NS bolus of 1L ORdered -Will hold BP meds at this time and observe COPD Exacerbation - Continue home medication: Breo - Duonebs Q4h prn C. Diff During Previous Admission - Completed course of Vancomycin - Repeat Cdiff negative Pancreatic Mass - Surgery consulted, Dr. Bright; help appreciated * mass appears resectable, however, patient is a not a surgical candidate at this time due to other conditions/comorbities. performance status of 4 currently would need to be improved to 2 for surgical consideration - CEA: 42.5 - CA19-9: 1980 - CA125: 36.2 - Abdomen/Pelvic CT: Heterogeneous hyperdense pancreatic mass measuring approximately 2.7 x 2.5 cm at the pancreatic body/tail. Ectatic dilated pancreatic duct. Additional cystic heterogeneous focus measuring approximately 15 x 14 mm is noted at the superior aspect of the pancreas. Appearance worrisome for malignant neoplasm. Wall thickening involving the 2nd portion of the duodenum of uncertain significance; considerations include infectious, inflammatory, or malignant etiologies. Correlate clinically and recommend further evaluation with direct visualization if indicated. Small pelvic free fluid. Tachycardia - Increase Cardizem to 180mg PO TID - Will continue to monitor Stage 1 Gluteal Ulcer - Patient has been spraying hydrogen peroxide on it - Will consult Nursing Wound Care, - Turn Q2H - Consider Air Mattress Intertrigo Redness us Groin Area 2/2 to incontinence -Start Nystatin Powder BID UTI UA: Positive Leuk ES | Urine Culture: Gram Negative Rods, F/U Sensitivities Mgmt: Ciprofloxacin 400mg Q12H Chronic Diastolic Congestive Heart Failure - Stable - Last echo 2016 showed Grade III reversible restrictive diastolic dysfunction, EF 55% - F/U ECHO, Ordered 09/29/18 - Lasix 20mg PO BID Hypertension - Home medications: * Lisinopril 10mg PO daily (held) * Cardizem 180mg PO BID (held) Diabetes Mellitus - Accuchecks, Hypoglycemia protocol - HgA1c 9.3 (01/2018); repeat A1c 9.0 - Insulin sliding scale - medium - Continue home medications: Januvia 100 mg PO daily, Glipizide 10mg PO BID, Gabapentin 300mg PO HS - Novolog 10 u SC AC - Lantus 24 units HS - Endocrinology consult. Dr Cam. chu appreciated. Fibromyalgia - Home medication: Diazepam 5mg PO BID - Flexeril 5mg PO TID (Holding parameters- hold if sleeping/sedated, hypotension) - Percocet 5/325mg 2 tab Q6H prn for pain - Gabapentin 300mg PO HS Adrenal Insufficiency - On prednisone 10mg PO daily Hypothyroidism - Continue Synthroid 100mcg PO daily - TSH/Free T4: 9.5/0.30 Hypokalemia -repleted -continue to monitor and replete as needed History of DVT/PE - Continue Xarelto 20mg PO daily Gout - Continue Colchicine Depression - Consulted psychiatry, Dr. Dexter, recs appreciated. - Per psychiatry, Started zoloft 50mg po daily (consider tapering up to 100mg), trazodone 50mg po hs - Valium 5mg po bid Closed fracture of right proximal tibia - Orthopedic surgery consulted, Dr. Hernandez; help appreciated - Per ortho: continue well padded knee immobilizer; non operative; recommends PT/OT, NWB, VTE proph, and to f/u with Dr. Hernandez 1-2 weeks upon d/c Prophylactic Measures - Protonix 40mg PO daily, Probiotics - Xarelto 20mg PO daily - PT/OT - Palliative care consulted to discuss goals of care - Case management consulted for discharge planning to [facility] Objective - Vital Signs/Intake and Output Vital Signs (last 24 hours): Temp Pulse Resp BP Pulse Ox 97.9 F 123 H 20 113/69 95 10/02/18 17:44 10/02/18 22:00 10/02/18 17:44 10/02/18 22:00 10/02/18 17:44 - Medications Medications: Current Medications Acetaminophen (Tylenol 325mg Tab) 650 mg PO Q4 PRN PRN Reason: Pain, Mild (1-3) Last Admin: 09/29/18 12:10 Dose: 650 mg Colchicine (Colocrys) 0.6 mg PO BID [facility] Last Admin: 10/02/18 17:45 Dose: 0.6 mg Cyclobenzaprine HCl (Flexeril) 5 mg PO TID [facility] Last Admin: 10/02/18 17:45 Dose: 5 mg Dextrose (Dextrose 50% Inj) 0 ml IV STAT PRN; Protocol PRN Reason: Hypoglycemia Protocol Dextrose (Glutose 15) 0 gm PO ONCE PRN; Protocol PRN Reason: Hypoglycemia Protocol Diazepam (Valium) 5 mg PO BID [facility] Last Admin: 10/02/18 17:46 Dose: 5 mg Dicyclomine HCl (Bentyl) 20 mg PO TID [facility] Last Admin: 10/02/18 17:45 Dose: 20 mg Diltiazem HCl (Cardizem Cd) 180 mg PO TID [facility] Ergocalciferol (Drisdol 50,000 Intl Units Cap) 1 cap PO Q7D [facility] Last Admin: 09/27/18 20:16 Dose: 1 cap Ferrous Gluconate (Fergon) 324 mg PO TIDCC [facility] Last Admin: 10/02/18 17:46 Dose: 324 mg Fluticasone/Vilanterol (Breo Ellipta 100-25 Mcg Inh) 1 puff INH RQ24 [facility] Last Admin: 09/30/18 07:40 Dose: Not Given Furosemide (Lasix) 20 mg PO BID [facility] Last Admin: 10/02/18 17:47 Dose: 20 mg Gabapentin (Neurontin) 300 mg PO HS [facility] Last Admin: 10/02/18 21:55 Dose: 300 mg Glipizide (Glucotrol) 10 mg PO BID [facility] Last Admin: 10/02/18 17:47 Dose: 10 mg Glucagon (Glucagen Diagnostic Kit) 0 mg IM STAT PRN; Protocol PRN Reason: Hypoglycemia Protocol Ciprofloxacin (Cipro 400mg/200ml Dsw) 400 mg in 200 mls @ 133 mls/hr IVPB Q12H [facility]; Protocol Last Admin: 10/02/18 22:00 Dose: 133 mls/hr Insulin Aspart (Novolog) 0 unit SC ACHS [facility]; Protocol Last Admin: 10/02/18 22:02 Dose: Not Given Insulin Aspart (Novolog) 10 unit SC AC [facility] Last Admin: 10/02/18 17:39 Dose: 10 units Insulin Glargine (Lantus) 24 unit SC HS [facility] Last Admin: 10/02/18 21:55 Dose: 24 unit Levothyroxine Sodium (Synthroid) 100 mcg PO 0630 [facility] Last Admin: 10/02/18 05:36 Dose: 100 mcg Lisinopril (Zestril) 10 mg PO DAILY [facility] Last Admin: 10/02/18 13:02 Dose: 10 mg Magnesium Oxide (Mag-Ox) 400 mg PO BID [facility] Last Admin: 10/02/18 17:47 Dose: 400 mg Nystatin (Nystop Topical Powder) 1 applic TOP BID [facility] Last Admin: 10/02/18 17:40 Dose: 1 applic Oxycodone/Acetaminophen (Percocet 5/325 Mg Tab) 2 tab PO Q6H PRN PRN Reason: Pain, severe (8-10) Stop: 10/05/18 12:11 Last Admin: 10/02/18 22:05 Dose: 2 tab Pantoprazole Sodium (Protonix Ec Tab) 40 mg PO DAILY [facility] Last Admin: 10/02/18 09:31 Dose: 40 mg Potassium Chloride (K-Dur 20 Meq Er Tab) 20 meq PO DAILY [facility] Last Admin: 10/02/18 09:31 Dose: 20 meq Prednisone (Prednisone Tab) 10 mg PO DAILY [facility] Last Admin: 10/02/18 09:31 Dose: 10 mg Rivaroxaban (Xarelto) 20 mg PO DAILY [facility] Last Admin: 10/02/18 09:32 Dose: 20 mg Saccharomyces Boulardii (Florastor) 250 mg PO Q12 [facility] Last Admin: 10/02/18 21:55 Dose: 250 mg Sertraline HCl (Zoloft) 50 mg PO DAILY [facility] Last Admin: 10/02/18 09:31 Dose: 50 mg Sitagliptin Phosphate (Januvia) 100 mg PO DAILY [facility] Last Admin: 10/02/18 09:31 Dose: 100 mg Trazodone HCl (Desyrel) 50 mg PO HS [facility] Last Admin: 10/02/18 21:55 Dose: 50 mg Trimethobenzamide HCl (Tigan) 200 mg IM Q8 PRN PRN Reason: Nausea/Vomiting Vitamin B Complex/Vit C/Folic Acid (Nephro-Lavinia) 1 tab PO DAILY [facility] Last Admin: 10/02/18 09:31 Dose: 1 tab - Labs Labs: 10/02/18 08:52 10/02/18 08:52 PT 22.3 SECONDS (9.7-12.2) H 09/20/18 13:45 INR 2.0 09/20/18 13:45 APTT 33 SECONDS (21-34) 09/20/18 13:45"
[2018-10-03] MEDS: Levothyroxine 100 MCG TAB PO SCH (05:39)
[2018-10-03 08:00] LABS: BASO # 0.1 K/uL (0.0-0.2); BASO % 0.8 % (0.0-2.0); EOS # 0.2 K/uL (0.0-0.7); EOS % 1.1 % (0.0-4.0); HEMOGLOBIN 9.4 g/dL (11.0-16.0); LYMPH # 3.1 K/uL (1.0-4.3); LYMPH % 22.5 % (20.0-40.0); MEAN CELL VOLUME 77.6 fL (81.0-99.0); MEAN CORPUSCULAR HEMOGLOBIN 23.4 pg (27.0-31.0); MEAN CORPUSCULAR HGB CONC 30.1 g/dL (33.0-37.0); MONO # 1.3 K/uL (0.0-0.8); MONO % 9.4 % (0.0-10.0); NEUT # 9.1 K/uL (1.8-7.0); NEUT % 66.2 % (50.0-75.0); NRBC % 0.1 % (0.0-2.0); PLATELET COUNT 416 K/uL (130-400); RBC 4.03 Mil/uL (3.80-5.20); RED CELL DISTRIBUTION WIDTH 21.1 % (11.5-14.5); WHITE BLOOD COUNT 13.7 K/uL (4.8-10.8)
[2018-10-03 08:06] LABS: ALB/GLOB RATIO 1.3 (1.0-2.1); ALBUMIN 3.4 g/dL (3.5-5.0); ALT/SGPT 147 U/L (9-52); AST/SGOT 75 U/L (14-36); BLOOD UREA NITROGEN 35 mg/dL (7-17); CALCIUM 8.9 mg/dl (8.6-10.4); GFR NON-AFRICAN AMERICAN 56
[2018-10-03] MEDS: Fluticasone-Vilanterol 100/25mcg Diskus INH SCH (08:10)
[2018-10-03] MEDS: (Novolog) Insulin Aspart, Recombinant 100 u/ml 10 ml vial SC SCH ×7 (08:14→21:57)
--- NOTE | 2018-10-03 08:50 | CP.PCM.PN ---
Subjective - Date & Time of Evaluation Date of Evaluation: 10/03/18 Time of Evaluation: 08:50 - Subjective Subjective: Medicine Progress Note - Dr Gutierres's service Patient seen and examined at bedside. Per nursing no acute events overnight. Patient is doing well, offers no complaints at this time. Objective - Vital Signs/Intake and Output Vital Signs (last 24 hours): Temp Pulse Resp BP Pulse Ox 97.5 F L 85 20 110/76 95 10/03/18 08:35 10/03/18 08:35 10/03/18 08:35 10/03/18 08:35 10/03/18 08:35 Intake and Output: 10/03/18 10/03/18 06:59 18:59 Output Total 850 Balance -850 - Medications Medications: Current Medications Acetaminophen (Tylenol 325mg Tab) 650 mg PO Q4 PRN PRN Reason: Pain, Mild (1-3) Last Admin: 09/29/18 12:10 Dose: 650 mg Colchicine (Colocrys) 0.6 mg PO BID [facility] Last Admin: 10/02/18 17:45 Dose: 0.6 mg Cyclobenzaprine HCl (Flexeril) 5 mg PO TID [facility] Last Admin: 10/02/18 17:45 Dose: 5 mg Dextrose (Dextrose 50% Inj) 0 ml IV STAT PRN; Protocol PRN Reason: Hypoglycemia Protocol Dextrose (Glutose 15) 0 gm PO ONCE PRN; Protocol PRN Reason: Hypoglycemia Protocol Diazepam (Valium) 5 mg PO BID [facility] Last Admin: 10/02/18 17:46 Dose: 5 mg Dicyclomine HCl (Bentyl) 20 mg PO TID [facility] Last Admin: 10/02/18 17:45 Dose: 20 mg Diltiazem HCl (Cardizem Cd) 180 mg PO TID [facility] Ergocalciferol (Drisdol 50,000 Intl Units Cap) 1 cap PO Q7D [facility] Last Admin: 09/27/18 20:16 Dose: 1 cap Ferrous Gluconate (Fergon) 324 mg PO TIDCC [facility] Last Admin: 10/03/18 08:13 Dose: 324 mg Fluticasone/Vilanterol (Breo Ellipta 100-25 Mcg Inh) 1 puff INH RQ24 [facility] Last Admin: 10/03/18 08:10 Dose: Not Given Furosemide (Lasix) 20 mg PO BID [facility] Last Admin: 10/02/18 17:47 Dose: 20 mg Gabapentin (Neurontin) 300 mg PO HS [facility] Last Admin: 10/02/18 21:55 Dose: 300 mg Glipizide (Glucotrol) 10 mg PO BID [facility] Last Admin: 10/02/18 17:47 Dose: 10 mg Glucagon (Glucagen Diagnostic Kit) 0 mg IM STAT PRN; Protocol PRN Reason: Hypoglycemia Protocol Ciprofloxacin (Cipro 400mg/200ml Dsw) 400 mg in 200 mls @ 133 mls/hr IVPB Q12H [facility]; Protocol Last Admin: 10/02/18 22:00 Dose: 133 mls/hr Insulin Aspart (Novolog) 0 unit SC ACHS [facility]; Protocol Last Admin: 10/03/18 08:14 Dose: 2 units Insulin Aspart (Novolog) 10 unit SC AC [facility] Last Admin: 10/03/18 08:14 Dose: 10 units Insulin Glargine (Lantus) 24 unit SC HS [facility] Last Admin: 10/02/18 21:55 Dose: 24 unit Levothyroxine Sodium (Synthroid) 100 mcg PO 0630 [facility] Last Admin: 10/03/18 05:39 Dose: 100 mcg Lisinopril (Zestril) 10 mg PO DAILY [facility] Last Admin: 10/02/18 13:02 Dose: 10 mg Magnesium Oxide (Mag-Ox) 400 mg PO BID [facility] Last Admin: 10/02/18 17:47 Dose: 400 mg Nystatin (Nystop Topical Powder) 1 applic TOP BID [facility] Last Admin: 10/02/18 17:40 Dose: 1 applic Oxycodone/Acetaminophen (Percocet 5/325 Mg Tab) 2 tab PO Q6H PRN PRN Reason: Pain, severe (8-10) Stop: 10/05/18 12:11 Last Admin: 10/02/18 22:05 Dose: 2 tab Pantoprazole Sodium (Protonix Ec Tab) 40 mg PO DAILY [facility] Last Admin: 10/02/18 09:31 Dose: 40 mg Potassium Chloride (K-Dur 20 Meq Er Tab) 20 meq PO DAILY [facility] Last Admin: 10/02/18 09:31 Dose: 20 meq Prednisone (Prednisone Tab) 10 mg PO DAILY [facility] Last Admin: 10/02/18 09:31 Dose: 10 mg Rivaroxaban (Xarelto) 20 mg PO DAILY [facility] Last Admin: 10/02/18 09:32 Dose: 20 mg Saccharomyces Boulardii (Florastor) 250 mg PO Q12 [facility] Last Admin: 10/02/18 21:55 Dose: 250 mg Sertraline HCl (Zoloft) 50 mg PO DAILY [facility] Last Admin: 10/02/18 09:31 Dose: 50 mg Sitagliptin Phosphate (Januvia) 100 mg PO DAILY [facility] Last Admin: 10/02/18 09:31 Dose: 100 mg Trazodone HCl (Desyrel) 50 mg PO HS [facility] Last Admin: 10/02/18 21:55 Dose: 50 mg Trimethobenzamide HCl (Tigan) 200 mg IM Q8 PRN PRN Reason: Nausea/Vomiting Vitamin B Complex/Vit C/Folic Acid (Nephro-Lavinia) 1 tab PO DAILY [facility] Last Admin: 10/02/18 09:31 Dose: 1 tab - Labs Labs: 10/03/18 07:40 10/03/18 07:40 PT 22.3 SECONDS (9.7-12.2) H 09/20/18 13:45 INR 2.0 09/20/18 13:45 APTT 33 SECONDS (21-34) 09/20/18 13:45 - Additional Findings Additional findings: - Constitutional Appears: Non-toxic, Chronically Ill - Head Exam Head Exam: ATRAUMATIC, NORMAL INSPECTION, NORMOCEPHALIC - Eye Exam Eye Exam: EOMI, Normal appearance. absent: Scleral icterus - ENT Exam ENT Exam: Mucous Membranes Moist - Neck Exam Neck Exam: Normal Inspection - Respiratory Exam Respiratory Exam: Decreased Breath Sounds. absent: Wheezes, NORMAL BREATHING PATTERN, Accessory Muscle Use, - Cardiovascular Exam Cardiovascular Exam: Tachycardia, +S1, +S2. absent: RRR - GI/Abdominal Exam GI & Abdominal Exam: Soft, Normal Bowel Sounds. absent: Tenderness - Extremities Exam Extremities Exam: Normal Inspection. absent: Pedal Edema - Neurological Exam Neurological Exam: Alert, Awake - Psychiatric Exam Psychiatric exam: Normal Affect, Normal Mood - Skin Skin Exam: Dry, Intact, Normal Color, Warm Assessment and Plan - Assessment and Plan (Free Text) Assessment: 63 year old female with PMHx of COPD, Pancreatic Mass, Chronic Diastolic CHF, Hypertension, DM II, Fibromyalgia, Adrenal Insufficiency, Hypothyroidism, Hx of DVT, Gout, Depression, and Current Closed Fracture of Right proximal tibia admitted for evluation and treatment of COPD exacerbation. Hospital Course Complicated with episodes of hypotension. Plan: Hypotension (resolved) - Continue to monitor COPD Exacerbation - Continue home medication: Breo - Duonebs Q4h prn C. Diff During Previous Admission - Completed course of Vancomycin - Repeat Cdiff negative Pancreatic Mass - Surgery consulted, Dr. Bright; help appreciated * mass appears resectable, however, patient is a not a surgical candidate at this time due to other conditions/comorbities. performance status of 4 currently would need to be improved to 2 for surgical consideration -Patient would like to proceed for surgical resection of tumor - CEA: 42.5, CA19-9: 1980, CA125: 36.2 - Abdomen/Pelvic CT: Heterogeneous hyperdense pancreatic mass measuring approximately 2.7 x 2.5 cm at the pancreatic body/tail. Ectatic dilated pancreatic duct. Additional cystic heterogeneous focus measuring approximately 15 x 14 mm is noted at the superior aspect of the pancreas. Appearance worrisome for malignant neoplasm. Wall thickening involving the 2nd portion of the duodenum of uncertain significance; considerations include infectious, inflammat ory, or malignant etiologies. Correlate clinically and recommend further evaluation with direct visualization if indicated. Small pelvic free fluid. Tachycardia - Cardiology consulted, Dr. Jeong; F/U Recs. - Increased Cardizem to 180mg PO TID - Will continue to monitor - Patient evaluated by cardiology, patient is high risk for cardiac event for major surgery like whipple's at this point due to unstable hemodynamics. However if benefit outweighs risk can proceed with the surgery after d/w the patient and the family. Will optimize cardiac status as much as we can (see cardiology note for further details) Stage 1 Gluteal Ulcer - Patient has been spraying hydrogen peroxide on it - Will consult Nursing Wound Care, - Turn Q2H - Consider Air Mattress Urinary Tract Infection -Urine culture growing proteus mirabilis, sensitivities -Started on Merrem 1gm daily -ID on consult, help appreciated -Will repeat UA Intertrigo -Redness us Groin Area 2/2 to incontinence -Started Nystatin Powder BID Chronic Diastolic Congestive Heart Failure - Stable - Last echo 2016 showed Grade III reversible restrictive diastolic dysfunction, EF 55% - Lasix 20mg PO BID Hypertension - Home medications: * Lisinopril 10mg PO daily (held) * Cardizem 180mg PO BID (held) Diabetes Mellitus - Accuchecks, Hypoglycemia protocol - HgA1c 9.3 (01/2018); repeat A1c 9.0 - Insulin sliding scale - medium - Continue home medications: Januvia 100 mg PO daily, Glipizide 10mg PO BID, Gabapentin 300mg PO HS - Novolog 10 u SC AC - Lantus 24 units HS - Endocrinology consult. Dr Cam. chu appreciated. Fibromyalgia - Home medication: Diazepam 5mg PO BID - Flexeril 5mg PO TID (Holding parameters- hold if sleeping/sedated, hypotension) - Percocet 5/325mg 2 tab Q6H prn for pain - Gabapentin 300mg PO HS Adrenal Insufficiency - On prednisone 10mg PO daily Hypothyroidism - Continue Synthroid 100mcg PO daily - TSH/Free T4: 9.5/0.30 Hypokalemia -repleted -continue to monitor and replete as needed History of DVT/PE - Continue Xarelto 20mg PO daily Gout - Continue Colchicine Depression - Consulted psychiatry, kimberley [place] appreciated. - Per psychiatry, Started zoloft 50mg po daily (consider tapering up to 100mg), trazodone 50mg po hs - Valium 5mg po bid Closed fracture of right proximal tibia - Repeat tibia/fibula x ray ordered - Orthopedic surgery consulted, Dr. Hernandez; help appreciated - Per ortho: continue well padded knee immobilizer; non operative; recommends PT/OT, NWB, VTE proph, and to f/u with Dr. Hernandez 1-2 weeks upon d/c Prophylactic Measures - Protonix 40mg PO daily, Probiotics - Xarelto 20mg PO daily - PT/OT - Palliative care consulted to discuss goals of care - Case management consulted for discharge planning to [facility] Disposition: Per discussion with Palliative Care and Dr Bright, patient needs more rehabilitation prior to surgery. Patient was previously at [facility] prior to [facility] admission. Discussed with the family who states that PT at [facility] would like a repeat Tibial X ray to establish weight bearing status. Repeat X Ray ordered. Case management working on disposition. For possible DC tomorrow back to [facility] for more aggressive physical therapy. Plan discussed with Dr Nenita Cortez DO PGY-2
[2018-10-03] MEDS: Multivitamin Vitamin B Complex (Nephro-Vite) Tab PO SCH (10:00)
[2018-10-03] MEDS: Pantoprazole 40 mg EC Tab PO SCH (10:00)
[2018-10-03] MEDS: Saccharomyces Boulardi 250 mg Cap PO SCH ×2 (10:00→21:57)
[2018-10-03] MEDS: Potassium Chloride 20 mEq ER Tab PO SCH (10:00)
[2018-10-03] MEDS: Magnesium Oxide 400 mg Tab UD PO SCH ×2 (10:00→18:00)
[2018-10-03] MEDS: diltiaZEM 180 mg/24 Hours CD Cap PO SCH ×3 (10:00→18:00)
[2018-10-03] MEDS ORDERED: Meropenem 1 GM in Sodium Chloride 0.9% 100 ML IVPB ONE (10:00)
[2018-10-03] MEDS: Oxycodone/Acetaminophen 5/325 mg Tab PO PRN ×2 (10:05→15:42)
--- NOTE | 2018-10-03 11:31 | CP.PCM.PN ---
Subjective - Date & Time of Evaluation Date of Evaluation: 10/03/18 Time of Evaluation: 11:26 - Subjective Subjective: .I was asked by Doctor Tona to revisit plans of care discussion with patient and family. Patient examined in bed sleeping, but easily aroused. Patient is alert, oriented X 3 , speech clear. Pain denied. Patient denies sleeping long hours, " just resting her eyes'. When asked if she participates with PT, patient rep[orted being able to sit up at the edge of the bed. Patient feels she is strong and believes is able to sustain surgery. Patient developed UTI. Tigan and Merrem IV on board. I discussed her condition with Doctor Cody this morning and he repeated again that patient was a high risk for surgery. I shared this with patient's daughter, awaiting daughter's phone call. Objective - Vital Signs/Intake and Output Vital Signs (last 24 hours): Temp Pulse Resp BP Pulse Ox 97.5 F L 85 20 110/76 95 10/03/18 08:35 10/03/18 08:35 10/03/18 08:35 10/03/18 08:35 10/03/18 08:35 Intake and Output: 10/03/18 10/03/18 06:59 18:59 Output Total 850 Balance -850 - Medications Medications: Current Medications Acetaminophen (Tylenol 325mg Tab) 650 mg PO Q4 PRN PRN Reason: Pain, Mild (1-3) Last Admin: 09/29/18 12:10 Dose: 650 mg Colchicine (Colocrys) 0.6 mg PO BID [facility] Last Admin: 10/02/18 17:45 Dose: 0.6 mg Cyclobenzaprine HCl (Flexeril) 5 mg PO TID [facility] Last Admin: 10/02/18 17:45 Dose: 5 mg Dextrose (Dextrose 50% Inj) 0 ml IV STAT PRN; Protocol PRN Reason: Hypoglycemia Protocol Dextrose (Glutose 15) 0 gm PO ONCE PRN; Protocol PRN Reason: Hypoglycemia Protocol Diazepam (Valium) 5 mg PO BID [facility] Last Admin: 10/02/18 17:46 Dose: 5 mg Dicyclomine HCl (Bentyl) 20 mg PO TID [facility] Last Admin: 10/02/18 17:45 Dose: 20 mg Diltiazem HCl (Cardizem Cd) 180 mg PO TID [facility] Ergocalciferol (Drisdol 50,000 Intl Units Cap) 1 cap PO Q7D [facility] Last Admin: 09/27/18 20:16 Dose: 1 cap Ferrous Gluconate (Fergon) 324 mg PO TIDCC [facility] Last Admin: 10/03/18 08:13 Dose: 324 mg Fluticasone/Vilanterol (Breo Ellipta 100-25 Mcg Inh) 1 puff INH RQ24 [facility] Last Admin: 10/03/18 08:10 Dose: Not Given Furosemide (Lasix) 20 mg PO BID [facility] Last Admin: 10/02/18 17:47 Dose: 20 mg Gabapentin (Neurontin) 300 mg PO HS [facility] Last Admin: 10/02/18 21:55 Dose: 300 mg Glipizide (Glucotrol) 10 mg PO BID [facility] Last Admin: 10/02/18 17:47 Dose: 10 mg Glucagon (Glucagen Diagnostic Kit) 0 mg IM STAT PRN; Protocol PRN Reason: Hypoglycemia Protocol Insulin Aspart (Novolog) 0 unit SC ACHS [facility]; Protocol Last Admin: 10/03/18 08:14 Dose: 2 units Insulin Aspart (Novolog) 10 unit SC AC [facility] Last Admin: 10/03/18 08:14 Dose: 10 units Insulin Glargine (Lantus) 24 unit SC HS [facility] Last Admin: 10/02/18 21:55 Dose: 24 unit Levothyroxine Sodium (Synthroid) 100 mcg PO 0630 [facility] Last Admin: 10/03/18 05:39 Dose: 100 mcg Lisinopril (Zestril) 10 mg PO DAILY [facility] Last Admin: 10/02/18 13:02 Dose: 10 mg Magnesium Oxide (Mag-Ox) 400 mg PO BID [facility] Last Admin: 10/02/18 17:47 Dose: 400 mg Nystatin (Nystop Topical Powder) 1 applic TOP BID [facility] Last Admin: 10/02/18 17:40 Dose: 1 applic Oxycodone/Acetaminophen (Percocet 5/325 Mg Tab) 2 tab PO Q6H PRN PRN Reason: Pain, severe (8-10) Stop: 10/05/18 12:11 Last Admin: 10/02/18 22:05 Dose: 2 tab Pantoprazole Sodium (Protonix Ec Tab) 40 mg PO DAILY [facility] Last Admin: 10/02/18 09:31 Dose: 40 mg Potassium Chloride (K-Dur 20 Meq Er Tab) 20 meq PO DAILY [facility] Last Admin: 10/02/18 09:31 Dose: 20 meq Prednisone (Prednisone Tab) 10 mg PO DAILY [facility] Last Admin: 10/02/18 09:31 Dose: 10 mg Rivaroxaban (Xarelto) 20 mg PO DAILY [facility] Last Admin: 10/02/18 09:32 Dose: 20 mg Saccharomyces Boulardii (Florastor) 250 mg PO Q12 [facility] Last Admin: 10/02/18 21:55 Dose: 250 mg Sertraline HCl (Zoloft) 50 mg PO DAILY [facility] Last Admin: 10/02/18 09:31 Dose: 50 mg Sitagliptin Phosphate (Januvia) 100 mg PO DAILY [facility] Last Admin: 10/02/18 09:31 Dose: 100 mg Trazodone HCl (Desyrel) 50 mg PO HS [facility] Last Admin: 10/02/18 21:55 Dose: 50 mg Trimethobenzamide HCl (Tigan) 200 mg IM Q8 PRN PRN Reason: Nausea/Vomiting Vitamin B Complex/Vit C/Folic Acid (Nephro-Lavinia) 1 tab PO DAILY [facility] Last Admin: 10/02/18 09:31 Dose: 1 tab - Labs Labs: 10/03/18 07:40 10/03/18 07:40 PT 22.3 SECONDS (9.7-12.2) H 09/20/18 13:45 INR 2.0 09/20/18 13:45 APTT 33 SECONDS (21-34) 09/20/18 13:45 - Constitutional Appears: No Acute Distress, Chronically Ill - Head Exam Head Exam: ATRAUMATIC, NORMAL INSPECTION, NORMOCEPHALIC - Eye Exam Eye Exam: EOMI, Normal appearance, PERRL Pupil Exam: NORMAL ACCOMODATION, PERRL - ENT Exam ENT Exam: Mucous Membranes Dry - Neck Exam Neck Exam: Normal Inspection - Respiratory Exam Respiratory Exam: Decreased Breath Sounds, NORMAL BREATHING PATTERN - Cardiovascular Exam Cardiovascular Exam: Tachycardia, REGULAR RHYTHM, +S1, +S2 - GI/Abdominal Exam GI & Abdominal Exam: Soft, Normal Bowel Sounds - Rectal Exam Rectal Exam: Deferred - Extremities Exam Additional comments: right leg immobilizer, S/P fracture 2 monhts ago - Back Exam Back Exam: NORMAL INSPECTION - Neurological Exam Neurological Exam: Alert, Awake, Oriented x3 Neuro motor strength exam: Left Upper Extremity: 3, Right Upper Extremity: 3, Left Lower Extremity: 2/1, Right Lower Extremity: 2/1 - Psychiatric Exam Psychiatric exam: Depressed - Skin Skin Exam: Mottled, Pallor, Warm Assessment and Plan - Assessment and Plan (Free Text) Assessment: Patient examined in bed. Goals of care discussed with patient. I shared Surg betty's impression of high risk for surgery at this time, unless she gets more fit with PT. Patient believes present condition is best she would ever be and is willing to take risks associated with potential surgery. Patient sees surgery as the only way to get relief of her symptoms and be cancer free. Patient admits her cancer diagnosis makes her more depressed and helpless. Patient reports is ready " to fight" cancer though the surgery. Patient was tearful. Patient admitted being able to sit at the edge of the bed only. I discussed this with patient's nurse Jerald and confirmed the same. Discussed my conversation with Doctor Joi and suggested ALONDRA discharge for more intense PT before decision about surgery is made. She agreed. I shared this with patient's daughter via texts and asked for call back. Doctor Nenita aware as well. Impression * Pancreatic cancer * UTI * Known Hx of depression which influence patient;s ability to cope with diagnosis of cancer and participate in PT more actively * Limited mobility * prolonged houirs of sleep during the day * Limited participation in PT * Patient and family deny high risks if Whiple Procedure takes place, including * Patient is willing to take risks associated with surgery * Family is concerned that time spent on PT, will allow cancer to grow further Suggestion * Would increase Zoloft to 75 mg daily * Would change Valium 5 mg to BID PRN only * Continue IV antibiotics, * Continue PT * Would discharge to [facility] for more intense PT * Would keep surgery on hold until patient's condition improves Patient daughter will come in today after work to meet with me.
[2018-10-03 12:22] LABS: BANDS 2 % (0-2); EOSINOPHIL 4 % (0-4); LYMPHOCYTE 29 % (20-40); MONOCYTE 12 % (0-10); MYELOCYTE 1 % (0-0); NEUTROPHIL 52 % (50-75); TOTAL CELLS COUNTED 100
[2018-10-03 12:23] LABS: ANISOCYTOSIS SLIGHT; HYPOCHROMIC SLIGHT; OVALOCYTES SLIGHT; PLATELET ESTIMATE NORMAL (NORMAL); POLYCHROMIC SLIGHT
--- NOTE | 2018-10-03 12:29 | CP.PCM.CON ---
History of Present Illness - History of Present Illness History of Present Illness: 63 year old female with history of COPD on oxygen, HTN, DM, HL, debility, found to have a pancreatic mass concerning for pancreatic malignancy. Past medical history: Fibromyalgia, COPD, HTN, DM, HL referred for ID eval for ESBL + Proteus in urine Past surgical history: Cholecystectomy, appendectomy, hysterectomy Family history: Denies hematologic and oncologic problems Social history: Former tobacco abuse Allergies: NKA - Medical History PMH: Anemia, Anxiety, Arthritis (R THR /ORIF), Asthma, Cardia Arrhythmia, CHF, COPD, Depression, Diabetes, Deep Vein Thrombosis, Fibromyalgia, Fractures (R HIP), Gall Bladder Disease, HTN, Hypercholesterolemia, Hyperlipidemia, Hypothyroidism, Pulmonary Embolism (on Coumadin W/ IVC filter), Rheumatoid Arthritis Denies: Chronic Kidney Disease Surgical History: Back Surgery, Cholecystectomy Denies: Appendectomy - [facility] Procedures CENTRAL VENOUS CATHETER PLACEMENT WITH GUIDANCE (09/28/14) ENDOSC POLYPECTOMY OF LG INTEST (09/08/14) ESOPHAGOGASTRODUODENOSCOPY [EGD] W/CLOSED BIOPSY (09/08/14) EXCISION OF STOMACH, ENDO, DIAGN (11/19/15) REPOSITION R UP FEMUR WITH INTRAMED FIX, OPEN APPROACH (03/14/17) SPINAL CANAL EXPLOR NEC (09/08/14) Review of Systems - Constitutional Constitutional: As Per HPI, Chills, Fever, Malaise - EENT Eyes: absent: As Per HPI, Blind Spots, Blurred Vision, Change in Vision, Decreased Night Vision, Diplopia, Discharge, Dry Eye, Exophthalmos, Floaters, Irritation, Itchy Eyes, Loss of Peripheral Vision, Pain, Photophobia, Requires Corrective Lenses, Sees Flashes, Spots in Vision, Tunnel Vision, Other Visual Disturbances, Loss of Vision, Other Ears: absent: As Per HPI, Decreased Hearing, Ear Discharge, Ear Pain, Tinnitus, Abnormal Hearing, Disequilibrium, Dizziness, Other Nose/Mouth/Throat: absent: As Per HPI, Epistaxis, Nasal Congestion, Nasal Discharge, Nasal Obstruction, Nasal Trauma, Nose Pain, Post Nasal Drip, Sinus Pain, Sinus Pressure, Bleeding Gums, Change in Voice, Dental Pain, Dry Mouth, Dysphagia, Halitosis, Hoarsness, Lip Swelling, Mouth Lesions, Mouth Pain, Odynophagia, Sore Throat, Throat Swelling, Tongue Swelling, Facial Pain, Neck Pain, Neck Mass, Other - Breasts Breasts: absent: As Per HPI, Change in Shape, Mass, Pain, Nipple Discharge, Nipple Inversion, Skin Changes, Swelling, Other - Cardiovascular Cardiovascular: As Per HPI - Respiratory Respiratory: As Per HPI, Cough - Gastrointestinal Gastrointestinal: absent: As Per HPI, Abdominal Pain, Belching, Bloating, Change in Bowel Habits, Change in Stool Character, Coffee Ground Emesis, Constipation, Cramping, Diarrhea, Dyspepsia, Dysphagia, Early Satiety, Excessive Flatus, Fecal Incontinence, Heartburn, Hematemesis, Hematochezia, Loose Stools, Melena, Nausea, Odynophagia, Temesmus, Vomiting, Other - Genitourinary Genitourinary: absent: As Per HPI, Change in Urinary Stream, Difficulty Urinating, Dysuria, Flank Pain, Hematuria, Pyuria, Nocturia, Urinary Incontinence, Urinary Frequency, Urinary Hesitance, Urinary Urgency, Voiding Freq/Small Amts, Freq UTI, Hx Renal/Bladder Calculi, Hx /Renal Surgery, Bladde r Distension, Other - Reproductive: Female Reproductive:Female: absent: As Per HPI, Amenorrhea, Amenorrhea/ Control, Currently Menstual, Cycle <21 Days, Cycle >35 Days, Cycle Variable, Menses 1-7 Days, Menses >/= 8 Days, Menses Variable, Cycle > 4 Weeks Between, No Menses for 6 Months, Heavy Menses, Light Menses, Normal Menses, Spotting Between Cycles, S /P Hysterectomy, Menopausal, Post Menopausal, Premenarche, Abnormal Vaginal Bleeding, Dysmenorrhea, Dyspareunia, Genital Lesions, Genital Pruritis, Pelvic Pain, Prolapse Symptoms, Sexual Dysfunction, Vaginal Discharge, Vaginal Dryness, Vaginal Odor, Vaginal Pruritis, Other - Menstruation Menstruation: absent: As Per HPI, Amenorrhea, Amenorrhea/ Control, Currently Menstual, Cycle <21 Days, Cycle >35 Days, Cycle Variable, Menses 1-7 Days, Menses >/= 8 Days, Menses Variable, Cycle > 4 Weeks Between, No Menses for 6 Months, Heavy Menses, Light Menses, Normal Menses, Spotting Between Cycles, S/P Hysterectomy, Menopausal, Post Menopausal, Premenarche, Abnormal Vaginal Bleeding, Dysmenorrhea, Other - Musculoskeletal Musculoskeletal: As Per HPI - Integumentary Integumentary: absent: As Per HPI, Acne, Alopecia, Bleeding Lesions, Change in Hair, Change in Nails, Change in Pigmentation, Changing Lesions, Dry Skin, Erythema, Furuncle, Hirsutism, Lesions, New Lesions, Non-Healing Lesions, Photosensitivity, Pruritus, Rash, Skin Pain, Skin Ulcer, Sores, Striae, Swelling, Unusual Bruising, Wounds, Jaundice, Other - Neurological Neurological: As Per HPI, Abnormal Gait - Psychiatric Psychiatric: absent: As Per HPI, Abnormal Sleep Pattern, Anhedonia, Anxiety, Auditory Hallucinations, Behavioral Changes, Change in Appetite, Change in Libido, Confusion, Depression, Difficulty Concentrating, Hallucinations, Homicidal Ideation, Hopelessness, Irritability, Memory Loss, Mood Swings, Panic Attacks, Paranoia, Suicidal Ideation, Visual Hallucinations, Tactile Hallucinations, Other - Endocrine Endocrine: absent: As Per HPI, Change in Body Appearance, Change in Libido, Cold Intolorance, Deepening of Voice, Excessive Sweating, Fatigue, Flushing, Heat Intolorance, Increase in Ring/Shoe/Hat Size, Palpitations, Polydipsia, Polyphagia, Polyuria, Other - Hematologic/Lymphatic Hematologic: absent: As Per HPI, Easy Bleeding, Easy Bruising, Lymphadenopathy, Other Past Patient History - Infectious Disease Hx of Infectious Diseases: None, C.diff - Past Medical History & Family History Past Medical History?: Yes - Past Social History Smoking Status: Never Smoked - CARDIAC Hx Cardia Arrhythmia: Yes Hx Congestive Heart Failure: Yes Hx Hypercholesterolemia: Yes Hx Hypertension: Yes - PULMONARY Hx Asthma: Yes Hx Chronic Obstructive Pulmonary Disease (COPD): Yes Hx Pulmonary Embolism: Yes (on Coumadin W/ IVC filter) - NEUROLOGICAL HX Cerebrovascular Accident: Yes - HEENT Hx HEENT Problems: No - RENAL Hx Chronic Kidney Disease: No - ENDOCRINE/METABOLIC Hx Hypothyroidism: Yes - HEMATOLOGICAL/ONCOLOGICAL Hx Anemia: Yes - INTEGUMENTARY Hx Dermatological Problems: No - MUSCULOSKELETAL/RHEUMATOLOGICAL Hx Arthritis: Yes (R THR /ORIF) Hx Fractures: Yes (R HIP) Hx Rheumatoid Arthritis: Yes - GASTROINTESTINAL Hx Gall Bladder Disease: Yes - GENITOURINARY/GYNECOLOGICAL Hx Genitourinary Disorders: Yes Hx Urinary Tract Infection: Yes - PSYCHIATRIC Hx Anxiety: Yes Hx Depression: Yes Hx Substance Use: No - SURGICAL HISTORY Hx Appendectomy: No Hx Cholecystectomy: Yes - ANESTHESIA Hx Anesthesia: Yes Hx Anesthesia Reactions: Yes (DIFFICULTY BREATHING) Meds Allergies/Adverse Reactions: Allergies Allergy/AdvReac Type Severity Reaction Status Date / Time No Known Allergies Allergy Verified 09/01/18 17:29 - Medications Medications: Current Medications Acetaminophen (Tylenol 325mg Tab) 650 mg PO Q4 PRN PRN Reason: Pain, Mild (1-3) Last Admin: 09/29/18 12:10 Dose: 650 mg Colchicine (Colocrys) 0.6 mg PO BID [facility] Last Admin: 10/03/18 10:00 Dose: 0.6 mg Cyclobenzaprine HCl (Flexeril) 5 mg PO TID [facility] Last Admin: 10/03/18 10:00 Dose: 5 mg Dextrose (Dextrose 50% Inj) 0 ml IV STAT PRN; Protocol PRN Reason: Hypoglycemia Protocol Dextrose (Glutose 15) 0 gm PO ONCE PRN; Protocol PRN Reason: Hypoglycemia Protocol Diazepam (Valium) 5 mg PO BID PRN PRN Reason: Anxiety Dicyclomine HCl (Bentyl) 20 mg PO TID [facility] Last Admin: 10/03/18 10:00 Dose: 20 mg Diltiazem HCl (Cardizem Cd) 180 mg PO TID [facility] Last Admin: 10/03/18 10:00 Dose: 180 mg Ergocalciferol (Drisdol 50,000 Intl Units Cap) 1 cap PO Q7D [facility] Last Admin: 09/27/18 20:16 Dose: 1 cap Ferrous Gluconate (Fergon) 324 mg PO TIDCC [facility] Last Admin: 10/03/18 08:13 Dose: 324 mg Fluticasone/Vilanterol (Breo Ellipta 100-25 Mcg Inh) 1 puff INH RQ24 [facility] Last Admin: 10/03/18 08:10 Dose: Not Given Furosemide (Lasix) 20 mg PO BID [facility] Last Admin: 10/03/18 10:00 Dose: 20 mg Gabapentin (Neurontin) 300 mg PO HS [facility] Last Admin: 10/02/18 21:55 Dose: 300 mg Glipizide (Glucotrol) 10 mg PO BID [facility] Last Admin: 10/03/18 10:00 Dose: 10 mg Glucagon (Glucagen Diagnostic Kit) 0 mg IM STAT PRN; Protocol PRN Reason: Hypoglycemia Protocol Insulin Aspart (Novolog) 0 unit SC ACHS [facility]; Protocol Last Admin: 10/03/18 08:14 Dose: 2 units Insulin Aspart (Novolog) 10 unit SC AC [facility] Last Admin: 10/03/18 08:14 Dose: 10 units Insulin Glargine (Lantus) 24 unit SC HS [facility] Last Admin: 10/02/18 21:55 Dose: 24 unit Levothyroxine Sodium (Synthroid) 100 mcg PO 0630 [facility] Last Admin: 10/03/18 05:39 Dose: 100 mcg Lisinopril (Zestril) 10 mg PO DAILY [facility] Last Admin: 10/03/18 10:00 Dose: 10 mg Magnesium Oxide (Mag-Ox) 400 mg PO BID [facility] Last Admin: 10/03/18 10:00 Dose: 400 mg Nystatin (Nystop Topical Powder) 1 applic TOP BID [facility] Last Admin: 10/03/18 10:00 Dose: 1 applic Oxycodone/Acetaminophen (Percocet 5/325 Mg Tab) 2 tab PO Q6H PRN PRN Reason: Pain, severe (8-10) Stop: 10/05/18 12:11 Last Admin: 10/03/18 10:05 Dose: 2 tab Pantoprazole Sodium (Protonix Ec Tab) 40 mg PO DAILY [facility] Last Admin: 10/03/18 10:00 Dose: 40 mg Potassium Chloride (K-Dur 20 Meq Er Tab) 20 meq PO DAILY [facility] Last Admin: 10/03/18 10:00 Dose: 20 meq Prednisone (Prednisone Tab) 10 mg PO DAILY [facility] Last Admin: 10/03/18 10:00 Dose: 10 mg Rivaroxaban (Xarelto) 20 mg PO DAILY [facility] Last Admin: 10/03/18 10:00 Dose: 20 mg Saccharomyces Boulardii (Florastor) 250 mg PO Q12 [facility] Last Admin: 10/03/18 10:00 Dose: 250 mg Sertraline HCl (Zoloft) 50 mg PO DAILY [facility] Last Admin: 10/03/18 10:00 Dose: 50 mg Sitagliptin Phosphate (Januvia) 100 mg PO DAILY [facility] Last Admin: 10/03/18 10:00 Dose: 100 mg Trazodone HCl (Desyrel) 50 mg PO HS [facility] Last Admin: 10/02/18 21:55 Dose: 50 mg Trimethobenzamide HCl (Tigan) 200 mg IM Q8 PRN PRN Reason: Nausea/Vomiting Vitamin B Complex/Vit C/Folic Acid (Nephro-Lavinia) 1 tab PO DAILY [facility] Last Admin: 10/03/18 10:00 Dose: 1 tab Physical Exam - Constitutional Appears: No Acute Distress, Cachectic, Chronically Ill - Head Exam Head Exam: ATRAUMATIC, NORMAL INSPECTION, NORMOCEPHALIC - Eye Exam Eye Exam: EOMI, Normal appearance, PERRL Pupil Exam: NORMAL ACCOMODATION, PERRL - ENT Exam ENT Exam: Mucous Membranes Moist, Normal Exam - Neck Exam Neck exam: Positive for: Normal Inspection. Negative for: Lymphadenopathy - Respiratory Exam Respiratory Exam: Decreased Breath Sounds, Clear to Auscultation Bilateral, Prolonged Expiratory Phase - Cardiovascular Exam Cardiovascular Exam: REGULAR RHYTHM, +S1, +S2 - GI/Abdominal Exam GI & Abdominal Exam: Diminished Bowel Sounds, Distended, Normal Bowel Sounds, Soft. absent: Tenderness - Rectal Exam Rectal Exam: Deferred - Exam Exam: NORMAL INSPECTION - Extremities Exam Extremities exam: Positive for: pedal edema, pedal pulses present. Negative for: normal inspection - Back Exam Back exam: absent: CVA tenderness (L), CVA tenderness (R), FULL ROM - Neurological Exam Neurological exam: Alert, CN II-XII Intact, Normal Gait, Oriented x3, Reflexes Normal - Psychiatric Exam Psychiatric exam: Depressed - Skin Skin Exam: Dry, Intact, Normal Color, Warm Results - Vital Signs Recent Vital Signs: Last Vital Signs Temp 97.5 F L 10/03/18 08:35 Pulse 85 10/03/18 08:35 Resp 20 10/03/18 08:35 BP 110/76 10/03/18 10:00 Pulse Ox 95 10/03/18 08:35 - Labs Result Diagrams: 10/03/18 07:40 10/03/18 07:40 Labs: Laboratory Results - last 24 hr 10/02/18 10/02/18 10/03/18 16:14 21:30 06:29 WBC RBC Hgb Hct MCV MCH MCHC RDW Plt Count MPV Neut % (Auto) Lymph % (Auto) [place] % (Auto) Eos % (Auto) Baso % (Auto) Neut # (Auto) Lymph # (Auto) [place] # (Auto) Eos # (Auto) Baso # (Auto) Neutrophils % (Manual) Band Neutrophils % Lymphocytes % (Manual) Monocytes % (Manual) Eosinophils % (Manual) Myelocytes % Platelet Estimate Polychromasia Hypochromasia (manual) Anisocytosis (manual) Ovalocytes Sodium Potassium Chloride Carbon Dioxide Anion Gap BUN Creatinine Est GFR ( Amer) Est GFR (Non-Af Amer) POC Glucose (mg/dL) 299 H 274 H 160 H Random Glucose Calcium Total Bilirubin AST ALT Alkaline Phosphatase Total Protein Albumin Globulin Albumin/Globulin Ratio 10/03/18 10/03/18 10/03/18 07:40 07:40 11:39 WBC 13.7 H RBC 4.03 Hgb 9.4 L Hct 31.3 L MCV 77.6 L MCH 23.4 L MCHC 30.1 L RDW 21.1 H Plt Count 416 H MPV 9.0 Neut % (Auto) 66.2 Lymph % (Auto) 22.5 [place] % (Auto) 9.4 Eos % (Auto) 1.1 Baso % (Auto) 0.8 Neut # (Auto) 9.1 H Lymph # (Auto) 3.1 [place] # (Auto) 1.3 H Eos # (Auto) 0.2 Baso # (Auto) 0.1 Neutrophils % (Manual) 52 Band Neutrophils % 2 Lymphocytes % (Manual) 29 Monocytes % (Manual) 12 H Eosinophils % (Manual) 4 Myelocytes % 1 H Platelet Estimate Normal Polychromasia Slight Hypochromasia (manual) Slight Anisocytosis (manual) Slight Ovalocytes Slight Sodium 135 Potassium 4.5 Chloride 101 Carbon Dioxide 26 Anion Gap 12 BUN 35 H Creatinine 1.0 Est GFR ( Amer) > 60 Est GFR (Non-Af Amer) 56 POC Glucose (mg/dL) 224 H Random Glucose 141 H Calcium 8.9 Total Bilirubin 0.3 AST 75 H ALT 147 H Alkaline Phosphatase 118 Total Protein 6.1 L Albumin 3.4 L Globulin 2.7 Albumin/Globulin Ratio 1.3 Assessment & Plan (1) Urinary tract infection due to extended-spectrum beta lactamase (ESBL) producing Escherichia coli Status: Acute (2) Pancreatic cancer Status: Acute (3) Abdominal pain Status: Acute - Assessment and Plan (Free Text) Assessment: will repeat U/A may not need termite treater rx ? colonized
--- NOTE | 2018-10-03 18:06 | RAD ---
Date of service: 10/03/2018 PROCEDURE: Radiographs of the right tibia and fibula. HISTORY: f/u on fracture COMPARISON: 09/05/2018 right knee radiographs TECHNIQUE: Frontal and lateral views obtained. 2 views obtained. FINDINGS: BONES: Additional callus formation noted indicative of healing nondisplaced fracture. Major fracture fragments are anatomically aligned. JOINT SPACES: Stable degenerative changes primarily affecting the medial compartment. OTHER FINDINGS: None. IMPRESSION: Radiographic manifestations of continued healing proximal right tibial fracture.
[2018-10-03 19:41] LABS: SQUAMOUS EPITHIAL < 1 /hpf (0-5); URINE BACTERIA RARE (<OCC); URINE BILIRUBIN NEGATIVE (NEGATIVE); URINE BLOOD NEGATIVE (NEGATIVE); URINE CLARITY Clear (Clear); URINE COLOR Yellow (YELLOW); URINE GLUCOSE (UA) 1+ mg/dL (Normal); URINE LEUKOCYTE ESTERASE NEG Leu/uL (Negative); URINE PROTEIN NEGATIVE (NEGATIVE); URINE UROBILINOGEN NORMAL mg/dL (0.2-1.0)
[2018-10-03] MEDS: (Lantus) Insulin Glargine, Recombinant SC SCH (21:58)
--- NOTE | 2018-10-03 22:02 | CP.PCM.PN ---
Subjective - Date & Time of Evaluation Date of Evaluation: 10/03/18 Time of Evaluation: 19:00 - Subjective Subjective: No complaints. Objective - Vital Signs/Intake and Output Vital Signs (last 24 hours): Temp Pulse Resp BP Pulse Ox 97.9 F 125 H 20 127/74 97 10/03/18 14:40 10/03/18 18:00 10/03/18 14:40 10/03/18 18:00 10/03/18 14:40 Intake and Output: 10/03/18 10/04/18 18:59 06:59 Intake Total 300 Balance 300 - Medications Medications: Current Medications Acetaminophen (Tylenol 325mg Tab) 650 mg PO Q4 PRN PRN Reason: Pain, Mild (1-3) Last Admin: 09/29/18 12:10 Dose: 650 mg Colchicine (Colocrys) 0.6 mg PO BID [facility] Last Admin: 10/03/18 18:00 Dose: 0.6 mg Cyclobenzaprine HCl (Flexeril) 5 mg PO TID [facility] Last Admin: 10/03/18 18:00 Dose: 5 mg Dextrose (Dextrose 50% Inj) 0 ml IV STAT PRN; Protocol PRN Reason: Hypoglycemia Protocol Dextrose (Glutose 15) 0 gm PO ONCE PRN; Protocol PRN Reason: Hypoglycemia Protocol Diazepam (Valium) 5 mg PO BID PRN PRN Reason: Anxiety Last Admin: 10/03/18 18:01 Dose: 5 mg Dicyclomine HCl (Bentyl) 20 mg PO TID [facility] Last Admin: 10/03/18 14:05 Dose: 20 mg Diltiazem HCl (Cardizem Cd) 180 mg PO TID [facility] Last Admin: 10/03/18 18:00 Dose: 180 mg Ergocalciferol (Drisdol 50,000 Intl Units Cap) 1 cap PO Q7D [facility] Last Admin: 09/27/18 20:16 Dose: 1 cap Ferrous Gluconate (Fergon) 324 mg PO TIDCC [facility] Last Admin: 10/03/18 16:32 Dose: 324 mg Fluticasone/Vilanterol (Breo Ellipta 100-25 Mcg Inh) 1 puff INH RQ24 [facility] Last Admin: 10/03/18 08:10 Dose: Not Given Furosemide (Lasix) 20 mg PO BID [facility] Last Admin: 10/03/18 18:00 Dose: 20 mg Gabapentin (Neurontin) 300 mg PO HS [facility] Last Admin: 10/03/18 21:58 Dose: 300 mg Glipizide (Glucotrol) 10 mg PO BID [facility] Last Admin: 10/03/18 18:00 Dose: 10 mg Glucagon (Glucagen Diagnostic Kit) 0 mg IM STAT PRN; Protocol PRN Reason: Hypoglycemia Protocol Insulin Aspart (Novolog) 0 unit SC ACHS [facility]; Protocol Last Admin: 10/03/18 21:57 Dose: Not Given Insulin Aspart (Novolog) 10 unit SC AC [facility] Last Admin: 10/03/18 16:34 Dose: 10 units Insulin Glargine (Lantus) 24 unit SC HS [facility] Last Admin: 10/03/18 21:58 Dose: 24 unit Levothyroxine Sodium (Synthroid) 100 mcg PO 0630 [facility] Last Admin: 10/03/18 05:39 Dose: 100 mcg Lisinopril (Zestril) 10 mg PO DAILY [facility] Last Admin: 10/03/18 10:00 Dose: 10 mg Magnesium Oxide (Mag-Ox) 400 mg PO BID [facility] Last Admin: 10/03/18 18:00 Dose: 400 mg Nystatin (Nystop Topical Powder) 1 applic TOP BID [facility] Last Admin: 10/03/18 18:01 Dose: 1 applic Oxycodone/Acetaminophen (Percocet 5/325 Mg Tab) 2 tab PO Q6H PRN PRN Reason: Pain, severe (8-10) Stop: 10/05/18 12:11 Last Admin: 10/03/18 15:42 Dose: 2 tab Pantoprazole Sodium (Protonix Ec Tab) 40 mg PO DAILY [facility] Last Admin: 10/03/18 10:00 Dose: 40 mg Potassium Chloride (K-Dur 20 Meq Er Tab) 20 meq PO DAILY [facility] Last Admin: 10/03/18 10:00 Dose: 20 meq Prednisone (Prednisone Tab) 10 mg PO DAILY [facility] Last Admin: 10/03/18 10:00 Dose: 10 mg Rivaroxaban (Xarelto) 20 mg PO DAILY [facility] Last Admin: 10/03/18 10:00 Dose: 20 mg Saccharomyces Boulardii (Florastor) 250 mg PO Q12 [facility] Last Admin: 10/03/18 21:57 Dose: 250 mg Sertraline HCl (Zoloft) 50 mg PO DAILY [facility] Last Admin: 10/03/18 10:00 Dose: 50 mg Sitagliptin Phosphate (Januvia) 100 mg PO DAILY [facility] Last Admin: 10/03/18 10:00 Dose: 100 mg Trazodone HCl (Desyrel) 50 mg PO HS [facility] Last Admin: 10/03/18 21:58 Dose: 50 mg Trimethobenzamide HCl (Tigan) 200 mg IM Q8 PRN PRN Reason: Nausea/Vomiting Vitamin B Complex/Vit C/Folic Acid (Nephro-Lavinia) 1 tab PO DAILY [facility] Last Admin: 10/03/18 10:00 Dose: 1 tab - Labs Labs: 10/03/18 07:40 10/03/18 07:40 PT 22.3 SECONDS (9.7-12.2) H 09/20/18 13:45 INR 2.0 09/20/18 13:45 APTT 33 SECONDS (21-34) 09/20/18 13:45 - Head Exam Head Exam: ATRAUMATIC - Eye Exam Eye Exam: Normal appearance - ENT Exam ENT Exam: Mucous Membranes Dry - Respiratory Exam Respiratory Exam: NORMAL BREATHING PATTERN - Cardiovascular Exam Cardiovascular Exam: +S1, +S2 - GI/Abdominal Exam GI & Abdominal Exam: Normal Bowel Sounds Assessment and Plan (1) Anemia Assessment & Plan: iron deficiency anemia on IV iron transfusion support PRN Status: Acute (2) Pancreatic cancer Assessment & Plan: no evidence of distant metastasis not a current surgical candidate due to debility surgical reevaluation after rehab Status: Acute
[2018-10-04] MEDS: Levothyroxine 100 MCG TAB PO SCH (05:55)
[2018-10-04 07:19] LABS: BASO # 0.2 K/uL (0.0-0.2); BASO % 1.1 % (0.0-2.0); EOS # 0.2 K/uL (0.0-0.7); EOS % 1.1 % (0.0-4.0); HEMOGLOBIN 9.5 g/dL (11.0-16.0); LYMPH # 2.6 K/uL (1.0-4.3); LYMPH % 16.1 % (20.0-40.0); MEAN CELL VOLUME 78.2 fL (81.0-99.0); MEAN CORPUSCULAR HEMOGLOBIN 22.6 pg (27.0-31.0); MEAN CORPUSCULAR HGB CONC 28.9 g/dL (33.0-37.0); MEAN PLATELET VOLUME 8.4 fL (7.2-11.7); MONO # 1.3 K/uL (0.0-0.8); MONO % 7.8 % (0.0-10.0); NEUT % 73.9 % (50.0-75.0); NRBC % 0.1 % (0.0-2.0); PLATELET COUNT 438 K/uL (130-400); RBC 4.22 Mil/uL (3.80-5.20); RED CELL DISTRIBUTION WIDTH 21.5 % (11.5-14.5); WHITE BLOOD COUNT 16.2 K/uL (4.8-10.8)
[2018-10-04] MEDS ORDERED: Heparin25000 units/250ml 1/2NS 25,000 UNITS/250 ML BAG IV PRN (07:42)
[2018-10-04 07:51] LABS: ALB/GLOB RATIO 1.4 (1.0-2.1); ALBUMIN 3.7 g/dL (3.5-5.0); CALCIUM 9.3 mg/dl (8.6-10.4)
[2018-10-04] MEDS: (Novolog) Insulin Aspart, Recombinant 100 u/ml 10 ml vial SC SCH ×7 (08:00→22:00)
[2018-10-04] MEDS ORDERED: Sodium Chloride 0.9% 1,000 ML IV SCH (09:45)
[2018-10-04] MEDS ORDERED: Enoxaparin 100 mg Syringe SC ONE (10:30)
[2018-10-04 10:52] LABS: LYMPHOCYTE 26 % (20-40); MONOCYTE 16 % (0-10); TOTAL CELLS COUNTED 100
[2018-10-04 10:53] LABS: ANISOCYTOSIS SLIGHT; HYPOCHROMIC SLIGHT; OVALOCYTES SLIGHT; PLATELET ESTIMATE SLIGHTLY INCREASED (NORMAL); POLYCHROMIC SLIGHT
[2018-10-04 10:57] LABS: BANDS 3 % (0-2); NEUTROPHIL 55 % (50-75)
[2018-10-04] MEDS: Potassium Chloride 20 mEq ER Tab PO SCH (10:58)
[2018-10-04] MEDS: Multivitamin Vitamin B Complex (Nephro-Vite) Tab PO SCH (10:59)
[2018-10-04] MEDS: diltiaZEM 180 mg/24 Hours CD Cap PO SCH ×3 (10:59→17:59)
[2018-10-04] MEDS: Pantoprazole 40 mg EC Tab PO SCH (10:59)
[2018-10-04] MEDS: Saccharomyces Boulardi 250 mg Cap PO SCH ×2 (10:59→22:02)
[2018-10-04] MEDS: Magnesium Oxide 400 mg Tab UD PO SCH ×2 (11:00→17:59)
[2018-10-04] MEDS: Oxycodone/Acetaminophen 5/325 mg Tab PO PRN ×2 (11:10→19:14)
[2018-10-04] MEDS: Sodium Chloride 0.9% 1,000 ML IV SCH (14:00)
--- NOTE | 2018-10-04 14:23 | CP.PCM.CON ---
<Rc Cyr - Last Filed: 10/04/18 14:18> History of Present Illness - History of Present Illness History of Present Illness: HBS Consult note- Dr. Valle 63F pmhx significant for CPOD on home O2, HTN, DM, HLD, presents to [facility] for shortness of breath and COPD Exacerbation. Hepatobiliary surgery was consulted for evaluation of pancreatic mass with no overt mets noted on CT scan. Denies current fevers, chills, chest pain, nausea, vomiting. 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, Fibromyaliga PSH: cholecystectomy, hysterectomy, appendectomy ALL: NKDA SocialHx: former tobacco abuse, lives in nursing facility FH: non-contributory Review of Systems - Review of Systems All systems: reviewed and no additional remarkable complaints except - Constitutional Constitutional: As Per HPI Past Patient History - Infectious Disease Hx of Infectious Diseases: None, C.diff - Past Medical History & Family History Past Medical History?: Yes - Past Social History Smoking Status: Never Smoked - CARDIAC Hx Cardia Arrhythmia: Yes Hx Congestive Heart Failure: Yes Hx Hypercholesterolemia: Yes Hx Hypertension: Yes - PULMONARY Hx Asthma: Yes Hx Chronic Obstructive Pulmonary Disease (COPD): Yes Hx Pulmonary Embolism: Yes (on Coumadin W/ IVC filter) - NEUROLOGICAL HX Cerebrovascular Accident: Yes - HEENT Hx HEENT Problems: No - RENAL Hx Chronic Kidney Disease: No - ENDOCRINE/METABOLIC Hx Hypothyroidism: Yes - HEMATOLOGICAL/ONCOLOGICAL Hx Anemia: Yes - INTEGUMENTARY Hx Dermatological Problems: No - MUSCULOSKELETAL/RHEUMATOLOGICAL Hx Arthritis: Yes (R THR /ORIF) Hx Fractures: Yes (R HIP) Hx Rheumatoid Arthritis: Yes - GASTROINTESTINAL Hx Gall Bladder Disease: Yes - GENITOURINARY/GYNECOLOGICAL Hx Genitourinary Disorders: Yes Hx Urinary Tract Infection: Yes - PSYCHIATRIC Hx Anxiety: Yes Hx Depression: Yes Hx Substance Use: No - SURGICAL HISTORY Hx Appendectomy: No Hx Cholecystectomy: Yes - ANESTHESIA Hx Anesthesia: Yes Hx Anesthesia Reactions: Yes (DIFFICULTY BREATHING) Meds Allergies/Adverse Reactions: Allergies Allergy/AdvReac Type Severity Reaction Status Date / Time No Known Allergies Allergy Verified 09/01/18 17:29 - Medications Medications: Current Medications Acetaminophen (Tylenol 325mg Tab) 650 mg PO Q4 PRN PRN Reason: Pain, Mild (1-3) Last Admin: 09/29/18 12:10 Dose: 650 mg Colchicine (Colocrys) 0.6 mg PO BID [facility] Last Admin: 10/04/18 11:01 Dose: 0.6 mg Cyclobenzaprine HCl (Flexeril) 5 mg PO TID [facility] Last Admin: 10/04/18 11:01 Dose: 5 mg Dextrose (Dextrose 50% Inj) 0 ml IV STAT PRN; Protocol PRN Reason: Hypoglycemia Protocol Dextrose (Glutose 15) 0 gm PO ONCE PRN; Protocol PRN Reason: Hypoglycemia Protocol Diazepam (Valium) 5 mg PO BID PRN PRN Reason: Anxiety Last Admin: 10/04/18 10:59 Dose: 5 mg Dicyclomine HCl (Bentyl) 20 mg PO TID [facility] Last Admin: 10/04/18 13:56 Dose: 20 mg Diltiazem HCl (Cardizem Cd) 180 mg PO TID [facility] Last Admin: 10/04/18 13:56 Dose: 180 mg Enoxaparin Sodium (Lovenox) 90 mg SC DAILY [facility] Stop: 10/06/18 00:00 Ergocalciferol (Drisdol 50,000 Intl Units Cap) 1 cap PO Q7D [facility] Last Admin: 09/27/18 20:16 Dose: 1 cap Ferrous Gluconate (Fergon) 324 mg PO TIDCC [facility] Last Admin: 10/04/18 12:46 Dose: 324 mg Fluticasone/Vilanterol (Breo Ellipta 100-25 Mcg Inh) 1 puff INH RQ24 [facility] Last Admin: 10/03/18 08:10 Dose: Not Given Furosemide (Lasix) 20 mg PO BID [facility] Last Admin: 10/04/18 10:58 Dose: 20 mg Gabapentin (Neurontin) 300 mg PO HS [facility] Last Admin: 10/03/18 21:58 Dose: 300 mg Glipizide (Glucotrol) 10 mg PO BID [facility] Last Admin: 10/04/18 10:59 Dose: 10 mg Glucagon (Glucagen Diagnostic Kit) 0 mg IM STAT PRN; Protocol PRN Reason: Hypoglycemia Protocol Sodium Chloride (Sodium Chloride 0.9%) 1,000 mls @ 75 mls/hr IV .[id number] [facility] Last Admin: 10/04/18 14:00 Dose: 75 mls/hr Insulin Aspart (Novolog) 0 unit SC [facility]; Protocol Last Admin: 10/04/18 12:46 Dose: 3 units Insulin Aspart (Novolog) 10 unit SC AC [facility] Last Admin: 10/04/18 12:46 Dose: 10 units Insulin Glargine (Lantus) 24 unit SC HS [facility] Last Admin: 10/03/18 21:58 Dose: 24 unit Levothyroxine Sodium (Synthroid) 100 mcg PO 0630 [facility] Last Admin: 10/04/18 05:55 Dose: 100 mcg Lisinopril (Zestril) 10 mg PO DAILY [facility] Last Admin: 10/03/18 10:00 Dose: 10 mg Magnesium Oxide (Mag-Ox) 400 mg PO BID [facility] Last Admin: 10/04/18 11:00 Dose: 400 mg Nystatin (Nystop Topical Powder) 1 applic TOP BID [facility] Last Admin: 10/04/18 10:59 Dose: 1 applic Oxycodone/Acetaminophen (Percocet 5/325 Mg Tab) 2 tab PO Q6H PRN PRN Reason: Pain, severe (8-10) Stop: 10/05/18 12:11 Last Admin: 10/04/18 11:10 Dose: 2 tab Pantoprazole Sodium (Protonix Ec Tab) 40 mg PO DAILY [facility] Last Admin: 10/04/18 10:59 Dose: 40 mg Potassium Chloride (K-Dur 20 Meq Er Tab) 20 meq PO DAILY [facility] Last Admin: 10/04/18 10:58 Dose: 20 meq Prednisone (Prednisone Tab) 10 mg PO DAILY [facility] Last Admin: 10/04/18 10:57 Dose: 10 mg Rivaroxaban (Xarelto) 20 mg PO DAILY [facility] Last Admin: 10/03/18 10:00 Dose: 20 mg Saccharomyces Boulardii (Florastor) 250 mg PO Q12 [facility] Last Admin: 10/04/18 10:59 Dose: 250 mg Sertraline HCl (Zoloft) 50 mg PO DAILY [facility] Last Admin: 10/04/18 11:00 Dose: 50 mg Sitagliptin Phosphate (Januvia) 100 mg PO DAILY [facility] Last Admin: 10/04/18 10:58 Dose: 100 mg Trazodone HCl (Desyrel) 50 mg PO HS [facility] Last Admin: 10/03/18 21:58 Dose: 50 mg Trimethobenzamide HCl (Tigan) 200 mg IM Q8 PRN PRN Reason: Nausea/Vomiting Vitamin B Complex/Vit C/Folic Acid (Nephro-Lavinia) 1 tab PO DAILY [facility] Last Admin: 10/04/18 10:59 Dose: 1 tab Physical Exam - Constitutional Appears: No Acute Distress, Chronically Ill - Head Exam Head Exam: ATRAUMATIC - Eye Exam Eye Exam: EOMI - ENT Exam ENT Exam: Mucous Membranes Moist - Respiratory Exam Respiratory Exam: Accessory Muscle Use, Wheezes, NORMAL BREATHING PATTERN. absent: Respiratory Distress - Cardiovascular Exam Cardiovascular Exam: REGULAR RHYTHM. absent: Bradycardia, Tachycardia - GI/Abdominal Exam GI & Abdominal Exam: Soft. absent: Distended, Firm, Guarding, Hernia, Tenderness - Neurological Exam Neurological exam: Alert, Oriented x3 - Psychiatric Exam Psychiatric exam: Normal Affect - Skin Skin Exam: Intact, Warm Results - Vital Signs Recent Vital Signs: Last Vital Signs Temp 97.7 F 10/04/18 07:00 Pulse 124 H 10/04/18 07:00 Resp 18 10/04/18 07:00 BP 111/75 10/04/18 10:58 Pulse Ox 94 L 10/04/18 07:00 - Labs Result Diagrams: 10/04/18 07:03 10/04/18 07:03 Labs: Laboratory Results - last 24 hr 10/03/18 10/03/18 10/03/18 16:17 19:09 21:26 WBC RBC Hgb Hct MCV MCH MCHC RDW Plt Count MPV Neut % (Auto) Lymph % (Auto) White % (Auto) Eos % (Auto) Baso % (Auto) Neut # (Auto) Lymph # (Auto) White # (Auto) Eos # (Auto) Baso # (Auto) Neutrophils % (Manual) Band Neutrophils % Lymphocytes % (Manual) Monocytes % (Manual) Platelet Estimate Polychromasia Hypochromasia (manual) Anisocytosis (manual) Ovalocytes APTT Sodium Potassium Chloride Carbon Dioxide Anion Gap BUN Creatinine Est GFR ( Amer) Est GFR (Non-Af Amer) POC Glucose (mg/dL) 321 H 277 H Random Glucose Calcium Total Bilirubin AST ALT Alkaline Phosphatase Total Protein Albumin Globulin Albumin/Globulin Ratio 25-OH Vitamin D Total Urine Color Yellow Urine Clarity Clear Urine pH 5.0 Ur Specific [place] 1.009 Urine Protein Negative Urine Glucose (UA) 1+ Urine Ketones Negative Urine Blood Negative Urine Nitrate Negative Urine Bilirubin Negative Urine Urobilinogen Normal Ur Leukocyte Esterase Neg Urine WBC (Auto) 2 Urine RBC (Auto) < 1 Ur Squamous Epith Cells < 1 Urine Bacteria Rare 10/04/18 10/04/18 10/04/18 06:40 07:03 07:03 WBC 16.2 H RBC 4.22 Hgb 9.5 L Hct 33.0 L MCV 78.2 L MCH 22.6 L MCHC 28.9 L RDW 21.5 H Plt Count 438 H MPV 8.4 Neut % (Auto) 73.9 Lymph % (Auto) 16.1 L White % (Auto) 7.8 Eos % (Auto) 1.1 Baso % (Auto) 1.1 Neut # (Auto) 12.0 H Lymph # (Auto) 2.6 White # (Auto) 1.3 H Eos # (Auto) 0.2 Baso # (Auto) 0.2 Neutrophils % (Manual) 55 Band Neutrophils % 3 H Lymphocytes % (Manual) 26 Monocytes % (Manual) 16 H Platelet Estimate Slightly increased H Polychromasia Slight Hypochromasia (manual) Slight Anisocytosis (manual) Slight Ovalocytes Slight APTT Sodium 134 Potassium 4.3 Chloride 98 Carbon Dioxide 30 Anion Gap 10 BUN 39 H Creatinine 1.5 H Est GFR ( Amer) 42 Est GFR (Non-Af Amer) 35 POC Glucose (mg/dL) 119 H Random Glucose 107 H D Calcium 9.3 Total Bilirubin 0.2 AST 70 H ALT 139 H Alkaline Phosphatase 157 H D Total Protein 6.3 Albumin 3.7 Globulin 2.7 Albumin/Globulin Ratio 1.4 25-OH Vitamin D Total Urine Color Urine Clarity Urine pH Ur Specific [place] Urine Protein Urine Glucose (UA) Urine Ketones Urine Blood Urine Nitrate Urine Bilirubin Urine Urobilinogen Ur Leukocyte Esterase Urine WBC (Auto) Urine RBC (Auto) Ur Squamous Epith Cells Urine Bacteria 10/04/18 10/04/18 07:03 08:16 WBC RBC Hgb Hct MCV MCH MCHC RDW Plt Count MPV Neut % (Auto) Lymph % (Auto) White % (Auto) Eos % (Auto) Baso % (Auto) Neut # (Auto) Lymph # (Auto) White # (Auto) Eos # (Auto) Baso # (Auto) Neutrophils % (Manual) Band Neutrophils % Lymphocytes % (Manual) Monocytes % (Manual) Platelet Estimate Polychromasia Hypochromasia (manual) Anisocytosis (manual) Ovalocytes APTT 23 Sodium Potassium Chloride Carbon Dioxide Anion Gap BUN Creatinine Est GFR ( Amer) Est GFR (Non-Af Amer) POC Glucose (mg/dL) Random Glucose Calcium Total Bilirubin AST ALT Alkaline Phosphatase Total Protein Albumin Globulin Albumin/Globulin Ratio 25-OH Vitamin D Total 27.0 L Urine Color Urine Clarity Urine pH Ur Specific [place] Urine Protein Urine Glucose (UA) Urine Ketones Urine Blood Urine Nitrate Urine Bilirubin Urine Urobilinogen Ur Leukocyte Esterase Urine WBC (Auto) Urine RBC (Auto) Ur Squamous Epith Cells Urine Bacteria Assessment & Plan - Assessment and Plan (Free Text) Assessment: 63F w/ 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 Valle surgical attending PGY2 <Adam Ross - Last Filed: 10/05/18 09:27> Meds - Medications Medications: Current Medications Acetaminophen (Tylenol 325mg Tab) 650 mg PO Q4 PRN PRN Reason: Pain, Mild (1-3) Last Admin: 09/29/18 12:10 Dose: 650 mg Colchicine (Colocrys) 0.6 mg PO BID [facility] Last Admin: 10/04/18 17:59 Dose: 0.6 mg Cyclobenzaprine HCl (Flexeril) 5 mg PO TID [facility] Last Admin: 10/04/18 17:59 Dose: 5 mg Dextrose (Dextrose 50% Inj) 0 ml IV STAT PRN; Protocol PRN Reason: Hypoglycemia Protocol Dextrose (Glutose 15) 0 gm PO ONCE PRN; Protocol PRN Reason: Hypoglycemia Protocol Diazepam (Valium) 5 mg PO BID PRN PRN Reason: Anxiety Last Admin: 10/04/18 10:59 Dose: 5 mg Dicyclomine HCl (Bentyl) 20 mg PO TID [facility] Last Admin: 10/04/18 17:59 Dose: 20 mg Diltiazem HCl (Cardizem Cd) 180 mg PO TID [facility] Last Admin: 10/04/18 17:59 Dose: 180 mg Enoxaparin Sodium (Lovenox) 90 mg SC DAILY [facility] Stop: 10/06/18 00:00 Ergocalciferol (Drisdol 50,000 Intl Units Cap) 1 cap PO Q7D [facility] Last Admin: 10/04/18 21:59 Dose: 1 cap Ferrous Gluconate (Fergon) 324 mg PO TIDCC [facility] Last Admin: 10/05/18 08:08 Dose: 324 mg Fluticasone/Vilanterol (Breo Ellipta 100-25 Mcg Inh) 1 puff INH RQ24 [facility] Last Admin: 10/03/18 08:10 Dose: Not Given Furosemide (Lasix) 20 mg PO DAILY [facility] Gabapentin (Neurontin) 300 mg PO HS [facility] Last Admin: 10/04/18 21:59 Dose: 300 mg Glipizide (Glucotrol) 10 mg PO BID [facility] Last Admin: 10/04/18 17:58 Dose: 10 mg Glucagon (Glucagen Diagnostic Kit) 0 mg IM STAT PRN; Protocol PRN Reason: Hypoglycemia Protocol Sodium Chloride (Sodium Chloride 0.9%) 1,000 mls @ 75 mls/hr IV .[id number] [facility] Last Admin: 10/05/18 05:29 Dose: 75 mls/hr Metronidazole (Flagyl) 500 mg in 100 mls @ 100 mls/hr IVPB Q8H [facility]; Protocol Last Admin: 10/05/18 06:47 Dose: 100 mls/hr Insulin Aspart (Novolog) 0 unit SC [facility]; Protocol Last Admin: 10/05/18 08:08 Dose: Not Given Insulin Aspart (Novolog) 10 unit SC AC [facility] Last Admin: 10/05/18 08:08 Dose: 10 units Insulin Glargine (Lantus) 24 unit SC HS [facility] Last Admin: 10/04/18 22:00 Dose: 24 unit Levothyroxine Sodium (Synthroid) 100 mcg PO 0630 [facility] Last Admin: 10/05/18 05:37 Dose: 100 mcg Lisinopril (Zestril) 10 mg PO DAILY [facility] Last Admin: 10/03/18 10:00 Dose: 10 mg Magnesium Oxide (Mag-Ox) 400 mg PO BID [facility] Last Admin: 10/04/18 17:59 Dose: 400 mg Nystatin (Nystop Topical Powder) 1 applic TOP BID [facility] Last Admin: 10/04/18 18:00 Dose: 1 applic Oxycodone/Acetaminophen (Percocet 5/325 Mg Tab) 2 tab PO Q6H PRN PRN Reason: Pain, severe (8-10) Stop: 10/05/18 12:11 Last Admin: 10/05/18 00:14 Dose: 2 tab Pantoprazole Sodium (Protonix Ec Tab) 40 mg PO DAILY [facility] Last Admin: 10/04/18 10:59 Dose: 40 mg Potassium Chloride (K-Dur 20 Meq Er Tab) 20 meq PO DAILY [facility] Last Admin: 10/04/18 10:58 Dose: 20 meq Prednisone (Prednisone Tab) 10 mg PO DAILY [facility] Rivaroxaban (Xarelto) 20 mg PO DAILY [facility] Last Admin: 10/03/18 10:00 Dose: 20 mg Saccharomyces Boulardii (Florastor) 250 mg PO Q12 [facility] Last Admin: 10/04/18 22:02 Dose: 250 mg Sertraline HCl (Zoloft) 50 mg PO DAILY [facility] Last Admin: 10/04/18 11:00 Dose: 50 mg Sitagliptin Phosphate (Januvia) 100 mg PO DAILY [facility] Last Admin: 10/04/18 10:58 Dose: 100 mg Trazodone HCl (Desyrel) 50 mg PO HS [facility] Last Admin: 10/04/18 21:59 Dose: 50 mg Trimethobenzamide HCl (Tigan) 200 mg IM Q8 PRN PRN Reason: Nausea/Vomiting Vitamin B Complex/Vit C/Folic Acid (Nephro-Lavinia) 1 tab PO DAILY [facility] Last Admin: 10/04/18 10:59 Dose: 1 tab Results - Vital Signs Recent Vital Signs: Last Vital Signs Temp 97.5 F L 10/05/18 07:00 Pulse 128 H 10/05/18 07:00 Resp 20 10/05/18 07:00 BP 105/66 10/05/18 07:00 Pulse Ox 96 10/05/18 07:00 - Labs Result Diagrams: 10/05/18 07:50 10/05/18 07:50 Labs: Laboratory Results - last 24 hr 10/04/18 10/04/18 10/04/18 07:03 11:42 18:00 WBC RBC Hgb Hct MCV MCH MCHC RDW Plt Count MPV Neut % (Auto) Lymph % (Auto) White % (Auto) Eos % (Auto) Baso % (Auto) Neut # (Auto) Lymph # (Auto) White # (Auto) Eos # (Auto) Baso # (Auto) Neutrophils % (Manual) 55 Band Neutrophils % 3 H Lymphocytes % (Manual) 26 Monocytes % (Manual) 16 H Platelet Estimate Slightly increased H Polychromasia Slight Hypochromasia (manual) Slight Anisocytosis (manual) Slight Ovalocytes Slight PT INR APTT Sodium Potassium Chloride Carbon Dioxide Anion Gap BUN Creatinine Est GFR ( Amer) Est GFR (Non-Af Amer) POC Glucose (mg/dL) 215 H 220 H Random Glucose Calcium Magnesium Total Bilirubin AST ALT Alkaline Phosphatase Total Protein Albumin Globulin Albumin/Globulin Ratio 10/04/18 10/05/18 10/05/18 21:18 06:10 07:50 WBC 15.1 H RBC 4.17 Hgb 9.6 L Hct 32.4 L MCV 77.5 L MCH 22.9 L MCHC 29.5 L RDW 22.8 H Plt Count 373 MPV 8.9 Neut % (Auto) 73.9 Lymph % (Auto) 16.5 L White % (Auto) 7.7 Eos % (Auto) 0.9 Baso % (Auto) 1.0 Neut # (Auto) 11.1 H Lymph # (Auto) 2.5 White # (Auto) 1.2 H Eos # (Auto) 0.1 Baso # (Auto) 0.2 Neutrophils % (Manual) Band Neutrophils % Lymphocytes % (Manual) Monocytes % (Manual) Platelet Estimate Polychromasia Hypochromasia (manual) Anisocytosis (manual) Ovalocytes PT INR APTT Sodium Potassium Chloride Carbon Dioxide Anion Gap BUN Creatinine Est GFR ( Amer) Est GFR (Non-Af Amer) POC Glucose (mg/dL) 229 H 120 H Random Glucose Calcium Magnesium Total Bilirubin AST ALT Alkaline Phosphatase Total Protein Albumin Globulin Albumin/Globulin Ratio 10/05/18 10/05/18 07:50 07:50 WBC RBC Hgb Hct MCV MCH MCHC RDW Plt Count MPV Neut % (Auto) Lymph % (Auto) White % (Auto) Eos % (Auto) Baso % (Auto) Neut # (Auto) Lymph # (Auto) White # (Auto) Eos # (Auto) Baso # (Auto) Neutrophils % (Manual) Band Neutrophils % Lymphocytes % (Manual) Monocytes % (Manual) Platelet Estimate Polychromasia Hypochromasia (manual) Anisocytosis (manual) Ovalocytes PT 10.8 INR 1.0 APTT 27 Sodium 135 Potassium 4.3 Chloride 103 Carbon Dioxide 26 Anion Gap 11 BUN 36 H Creatinine 1.3 H Est GFR ( Amer) 50 Est GFR (Non-Af Amer) 41 POC Glucose (mg/dL) Random Glucose 101 Calcium 8.8 Magnesium 1.6 Total Bilirubin 0.3 AST 53 H D ALT 109 H D Alkaline Phosphatase 129 H Total Protein 5.9 L Albumin 3.4 L Globulin 2.6 Albumin/Globulin Ratio 1.3 Assessment & Plan - Assessment and Plan (Free Text) Plan: All medical record entries made by the resident were at my direction. I have reviewed the chart and agree that the record accurately reflects my personal performance of the history, physical exam, medical decision making. After discussion with Dr Yonas Pennington and patient, will consider laparoscopic exploration. Given CA19-9 almost 2000, there is a high risk of extrahepatic spread. However if no evidence of locally advanced cancer will consider laparoscopic subtotal pancreatectomy. I discussed the risk of surgery with Ms Llanes. Have also discussed with Dr Yonas Pennington. Patient is high risk for post operative complication. However, her stress test was acceptable. Currently her WBC is 16k, and she is being worked up for infection. Originally booked for , but will hold off on surgery until her infection issues are resolved. If rolved this week, will book for Wednesday. - Date & Time Date: 10/05/18 Time: 09:27
--- NOTE | 2018-10-04 14:36 | CP.PCM.PN ---
Subjective - Date & Time of Evaluation Date of Evaluation: 10/04/18 Time of Evaluation: 14:33 - Subjective Subjective: Medicine Progress Note - Dr Gutierres's service Patient seen and examined at bedside. Per nursing no acute events overnight. Patient is doing well, offers no complaints at this time. 12 point review of systems reviewed and negative unless stated. Objective - Vital Signs/Intake and Output Vital Signs (last 24 hours): Temp Pulse Resp BP Pulse Ox 97.7 F 124 H 18 111/75 94 L 10/04/18 07:00 10/04/18 07:00 10/04/18 07:00 10/04/18 10:58 10/04/18 07:00 Intake and Output: 10/04/18 10/04/18 06:59 18:59 Output Total 800 Balance -800 - Medications Medications: Current Medications Acetaminophen (Tylenol 325mg Tab) 650 mg PO Q4 PRN PRN Reason: Pain, Mild (1-3) Last Admin: 09/29/18 12:10 Dose: 650 mg Colchicine (Colocrys) 0.6 mg PO BID [facility] Last Admin: 10/04/18 11:01 Dose: 0.6 mg Cyclobenzaprine HCl (Flexeril) 5 mg PO TID [facility] Last Admin: 10/04/18 11:01 Dose: 5 mg Dextrose (Dextrose 50% Inj) 0 ml IV STAT PRN; Protocol PRN Reason: Hypoglycemia Protocol Dextrose (Glutose 15) 0 gm PO ONCE PRN; Protocol PRN Reason: Hypoglycemia Protocol Diazepam (Valium) 5 mg PO BID PRN PRN Reason: Anxiety Last Admin: 10/04/18 10:59 Dose: 5 mg Dicyclomine HCl (Bentyl) 20 mg PO TID [facility] Last Admin: 10/04/18 13:56 Dose: 20 mg Diltiazem HCl (Cardizem Cd) 180 mg PO TID [facility] Last Admin: 10/04/18 13:56 Dose: 180 mg Enoxaparin Sodium (Lovenox) 90 mg SC DAILY [facility] Stop: 10/06/18 00:00 Ergocalciferol (Drisdol 50,000 Intl Units Cap) 1 cap PO Q7D [facility] Last Admin: 09/27/18 20:16 Dose: 1 cap Ferrous Gluconate (Fergon) 324 mg PO TIDCC [facility] Last Admin: 10/04/18 12:46 Dose: 324 mg Fluticasone/Vilanterol (Breo Ellipta 100-25 Mcg Inh) 1 puff INH RQ24 [facility] Last Admin: 10/03/18 08:10 Dose: Not Given Furosemide (Lasix) 20 mg PO DAILY [facility] Gabapentin (Neurontin) 300 mg PO HS [facility] Last Admin: 10/03/18 21:58 Dose: 300 mg Glipizide (Glucotrol) 10 mg PO BID [facility] Last Admin: 10/04/18 10:59 Dose: 10 mg Glucagon (Glucagen Diagnostic Kit) 0 mg IM STAT PRN; Protocol PRN Reason: Hypoglycemia Protocol Sodium Chloride (Sodium Chloride 0.9%) 1,000 mls @ 75 mls/hr IV .[id number] [facility] Last Admin: 10/04/18 14:00 Dose: 75 mls/hr Insulin Aspart (Novolog) 0 unit SC ACHS [facility]; Protocol Last Admin: 10/04/18 12:46 Dose: 3 units Insulin Aspart (Novolog) 10 unit SC AC [facility] Last Admin: 10/04/18 12:46 Dose: 10 units Insulin Glargine (Lantus) 24 unit SC HS [facility] Last Admin: 10/03/18 21:58 Dose: 24 unit Levothyroxine Sodium (Synthroid) 100 mcg PO 0630 [facility] Last Admin: 10/04/18 05:55 Dose: 100 mcg Lisinopril (Zestril) 10 mg PO DAILY [facility] Last Admin: 10/03/18 10:00 Dose: 10 mg Magnesium Oxide (Mag-Ox) 400 mg PO BID [facility] Last Admin: 10/04/18 11:00 Dose: 400 mg Nystatin (Nystop Topical Powder) 1 applic TOP BID [facility] Last Admin: 10/04/18 10:59 Dose: 1 applic Oxycodone/Acetaminophen (Percocet 5/325 Mg Tab) 2 tab PO Q6H PRN PRN Reason: Pain, severe (8-10) Stop: 10/05/18 12:11 Last Admin: 10/04/18 11:10 Dose: 2 tab Pantoprazole Sodium (Protonix Ec Tab) 40 mg PO DAILY [facility] Last Admin: 10/04/18 10:59 Dose: 40 mg Potassium Chloride (K-Dur 20 Meq Er Tab) 20 meq PO DAILY [facility] Last Admin: 04/02/19 10:58 Dose: 20 meq Rivaroxaban (Xarelto) 20 mg PO DAILY [facility] Last Admin: 10/03/18 10:00 Dose: 20 mg Saccharomyces Boulardii (Florastor) 250 mg PO Q12 [facility] Last Admin: 10/04/18 10:59 Dose: 250 mg Sertraline HCl (Zoloft) 50 mg PO DAILY [facility] Last Admin: 10/04/18 11:00 Dose: 50 mg Sitagliptin Phosphate (Januvia) 100 mg PO DAILY [facility] Last Admin: 10/04/18 10:58 Dose: 100 mg Trazodone HCl (Desyrel) 50 mg PO HS [facility] Last Admin: 10/03/18 21:58 Dose: 50 mg Trimethobenzamide HCl (Tigan) 200 mg IM Q8 PRN PRN Reason: Nausea/Vomiting Vitamin B Complex/Vit C/Folic Acid (Nephro-Lavinia) 1 tab PO DAILY [facility] Last Admin: 10/04/18 10:59 Dose: 1 tab - Labs Labs: 10/04/18 07:03 10/04/18 07:03 PT 22.3 SECONDS (9.7-12.2) H 09/20/18 13:45 INR 2.0 09/20/18 13:45 APTT 23 SECONDS (21-34) 10/04/18 08:16 Assessment and Plan - Assessment and Plan (Free Text) Assessment: 63 year old female with PMHx of COPD, Pancreatic Mass, Chronic Diastolic CHF, Hy pertension, DM II, Fibromyalgia, Adrenal Insufficiency, Hypothyroidism, Hx of DVT, Gout, Depression, and Current Closed Fracture of Right proximal tibia admitted for evluation and treatment of COPD exacerbation. Hospital Course Complicated with episodes of hypotension. Plan: KARMA Cr. 1.5 today - Start fluids at 75mls/hr - Decreased Lasix 20mg PO - Held Lisinopril - Monitor Hypotension (resolved) - Continue to monitor COPD Exacerbation - Continue home medication: Breo - Duonebs Q4h prn C. Diff During Previous Admission - Completed course of Vancomycin - Repeat Cdiff negative Pancreatic Mass - Surgery consulted, Dr. Bright; help appreciated * Surgery PENDING for this Wednesday or next Wednesday. -Patient would like to proceed for surgical resection of tumor - CEA: 42.5, CA19-9: 1980, CA125: 36.2 - Abdomen/Pelvic CT: Heterogeneous hyperdense pancreatic mass measuring approximately 2.7 x 2.5 cm at the pancreatic body/tail. Ectatic dilated pancreatic duct. Additional cystic heterogeneous focus measuring approximately 15 x 14 mm is noted at the superior aspect of the pancreas. Appearance worrisome for malignant neoplasm. Wall thickening involving the 2nd portion of the duodenum of uncertain significance; considerations include infectious, inflammatory, or malignant etiologies. Correlate clinically and recommend further evaluation with direct visualization if indicated. Small pelvic free fluid. Tachycardia - Cardiology consulted, Dr. Jeong; F/U Recs. - Increased Cardizem to 180mg PO TID - Will continue to monitor - Patient evaluated by cardiology, patient is high risk for cardiac event for major surgery like whipple's at this point due to unstable hemodynamics. However if benefit outweighs risk can proceed with the surgery after d/w the patient and the family. Will optimize cardiac status as much as we can (see cardiology note for further details) Stage 1 Gluteal Ulcer - Patient has been spraying hydrogen peroxide on it - Will consult Nursing Wound Care, - Turn Q2H - Consider Air Mattress Urinary Tract Infection -Urine culture growing proteus mirabilis, sensitivities -Started on Merrem 1gm daily -ID on consult, help appreciated -Will repeat UA Intertrigo -Redness us Groin Area 2/2 to incontinence -Started Nystatin Powder BID Chronic Diastolic Congestive Heart Failure - Stable - Last echo 2016 showed Grade III reversible restrictive diastolic dysfunction, EF 55% - Lasix 20mg PO BID Decreased to 20mg PO Daily Hypertension - Home medications: * Lisinopril 10mg PO daily (held) * Cardizem 180mg PO BID (held) Diabetes Mellitus - Accuchecks, Hypoglycemia protocol - HgA1c 9.3 (01/2018); repeat A1c 9.0 - Insulin sliding scale - medium - Continue home medications: Januvia 100 mg PO daily, Glipizide 10mg PO BID, Gabapentin 300mg PO HS - Novolog 10 u SC AC - Lantus 24 units HS - Endocrinology consult. Dr Cam. chu appreciated. Fibromyalgia - Home medication: Diazepam 5mg PO BID - Flexeril 5mg PO TID (Holding parameters- hold if sleeping/sedated, hypotension) - Percocet 5/325mg 2 tab Q6H prn for pain - Gabapentin 300mg PO HS Adrenal Insufficiency - On prednisone 10mg PO daily Hypothyroidism - Continue Synthroid 100mcg PO daily - TSH/Free T4: 9.5/0.30 Hypokalemia -repleted -continue to monitor and replete as needed History of DVT/PE - Continue Xarelto 20mg PO daily (Held for pending Surgery) Gout - Continue Colchicine Depression - Consulted psychiatry, Dr. Dexter, recs appreciated. - Per psychiatry, Started zoloft 50mg po daily (consider tapering up to 100mg), trazodone 50mg po hs - Valium 5mg po bid Closed fracture of right proximal tibia - Repeat tibia/fibula x ray ordered - Orthopedic surgery consulted, Dr. Hernandez; help appreciated - Per ortho: continue well padded knee immobilizer; non operative; recommends PT/OT, NWB, VTE proph, and to f/u with Dr. Hernandez 1-2 weeks upon d/c Prophylactic Measures - Protonix 40mg PO daily, Probiotics - Xarelto 20mg PO daily (Held) - Lovenox 90 Q12H (Renally Dosed at Q24) - PT/OT - Palliative care consulted to discuss goals of care - Case management consulted for discharge planning to [facility] Disposition: PENDING Surgery on or Next Wednesday. Will hold Xarelto and switch to therapeutic Lovenox. Plan discussed with Dr Nenita Kong DO PGY-2
[2018-10-04] MEDS: Ergocalciferol 50,000 Intl Units Cap PO SCH (21:59)
[2018-10-04] MEDS: (Lantus) Insulin Glargine, Recombinant SC SCH (22:00)
--- NOTE | 2018-10-04 23:27 | CP.PCM.PN ---
Subjective - Date & Time of Evaluation Date of Evaluation: 10/03/18 Time of Evaluation: 07:45 - Subjective Subjective: Patient seen and evaluated Admitted for abdominal pain feels batter Objective - Vital Signs/Intake and Output Vital Signs (last 24 hours): Temp Pulse Resp BP Pulse Ox 98 F 78 18 106/73 100 10/04/18 15:00 10/04/18 15:00 10/04/18 15:00 10/04/18 15:00 10/04/18 15:00 - Medications Medications: Current Medications Acetaminophen (Tylenol 325mg Tab) 650 mg PO Q4 PRN PRN Reason: Pain, Mild (1-3) Last Admin: 09/29/18 12:10 Dose: 650 mg Colchicine (Colocrys) 0.6 mg PO BID [facility] Last Admin: 10/04/18 17:59 Dose: 0.6 mg Cyclobenzaprine HCl (Flexeril) 5 mg PO TID [facility] Last Admin: 10/04/18 17:59 Dose: 5 mg Dextrose (Dextrose 50% Inj) 0 ml IV STAT PRN; Protocol PRN Reason: Hypoglycemia Protocol Dextrose (Glutose 15) 0 gm PO ONCE PRN; Protocol PRN Reason: Hypoglycemia Protocol Diazepam (Valium) 5 mg PO BID PRN PRN Reason: Anxiety Last Admin: 10/04/18 10:59 Dose: 5 mg Dicyclomine HCl (Bentyl) 20 mg PO TID [facility] Last Admin: 10/04/18 17:59 Dose: 20 mg Diltiazem HCl (Cardizem Cd) 180 mg PO TID [facility] Last Admin: 10/04/18 17:59 Dose: 180 mg Enoxaparin Sodium (Lovenox) 90 mg SC DAILY [facility] Stop: 10/06/18 00:00 Ergocalciferol (Drisdol 50,000 Intl Units Cap) 1 cap PO Q7D [facility] Last Admin: 10/04/18 21:59 Dose: 1 cap Ferrous Gluconate (Fergon) 324 mg PO TIDCC [facility] Last Admin: 10/04/18 17:59 Dose: 324 mg Fluticasone/Vilanterol (Breo Ellipta 100-25 Mcg Inh) 1 puff INH RQ24 [facility] Last Admin: 10/03/18 08:10 Dose: Not Given Furosemide (Lasix) 20 mg PO DAILY [facility] Gabapentin (Neurontin) 300 mg PO HS [facility] Last Admin: 10/04/18 21:59 Dose: 300 mg Glipizide (Glucotrol) 10 mg PO BID [facility] Last Admin: 10/04/18 17:58 Dose: 10 mg Glucagon (Glucagen Diagnostic Kit) 0 mg IM STAT PRN; Protocol PRN Reason: Hypoglycemia Protocol Sodium Chloride (Sodium Chloride 0.9%) 1,000 mls @ 75 mls/hr IV .[id number] [facility] Last Admin: 10/04/18 14:00 Dose: 75 mls/hr Insulin Aspart (Novolog) 0 unit SC ACHS [facility]; Protocol Last Admin: 10/04/18 22:00 Dose: Not Given Insulin Aspart (Novolog) 10 unit SC AC [facility] Last Admin: 10/04/18 17:59 Dose: 10 units Insulin Glargine (Lantus) 24 unit SC HS [facility] Last Admin: 10/04/18 22:00 Dose: 24 unit Levothyroxine Sodium (Synthroid) 100 mcg PO 0630 [facility] Last Admin: 10/04/18 05:55 Dose: 100 mcg Lisinopril (Zestril) 10 mg PO DAILY [facility] Last Admin: 10/03/18 10:00 Dose: 10 mg Magnesium Oxide (Mag-Ox) 400 mg PO BID [facility] Last Admin: 10/04/18 17:59 Dose: 400 mg Nystatin (Nystop Topical Powder) 1 applic TOP BID [facility] Last Admin: 10/04/18 18:00 Dose: 1 applic Oxycodone/Acetaminophen (Percocet 5/325 Mg Tab) 2 tab PO Q6H PRN PRN Reason: Pain, severe (8-10) Stop: 10/05/18 12:11 Last Admin: 10/04/18 19:14 Dose: 2 tab Pantoprazole Sodium (Protonix Ec Tab) 40 mg PO DAILY [facility] Last Admin: 10/04/18 10:59 Dose: 40 mg Potassium Chloride (K-Dur 20 Meq Er Tab) 20 meq PO DAILY [facility] Last Admin: 10/04/18 10:58 Dose: 20 meq Prednisone (Prednisone Tab) 10 mg PO DAILY [facility] Rivaroxaban (Xarelto) 20 mg PO DAILY [facility] Last Admin: 10/03/18 10:00 Dose: 20 mg Saccharomyces Boulardii (Florastor) 250 mg PO Q12 [facility] Last Admin: 10/04/18 22:02 Dose: 250 mg Sertraline HCl (Zoloft) 50 mg PO DAILY [facility] Last Admin: 10/04/18 11:00 Dose: 50 mg Sitagliptin Phosphate (Januvia) 100 mg PO DAILY [facility] Last Admin: 10/04/18 10:58 Dose: 100 mg Trazodone HCl (Desyrel) 50 mg PO HS [facility] Last Admin: 10/04/18 21:59 Dose: 50 mg Trimethobenzamide HCl (Tigan) 200 mg IM Q8 PRN PRN Reason: Nausea/Vomiting Vitamin B Complex/Vit C/Folic Acid (Nephro-Lavinia) 1 tab PO DAILY [facility] Last Admin: 10/04/18 10:59 Dose: 1 tab - Labs Labs: 10/04/18 07:03 10/04/18 07:03 PT 22.3 SECONDS (9.7-12.2) H 09/20/18 13:45 INR 2.0 09/20/18 13:45 APTT 23 SECONDS (21-34) 10/04/18 08:16
--- NOTE | 2018-10-04 23:28 | CP.PCM.PN ---
Subjective - Date & Time of Evaluation Date of Evaluation: 10/04/18 Time of Evaluation: 19:35 - Subjective Subjective: Patient seen and evaluated Admitted for abdominal pain feels batter Objective - Vital Signs/Intake and Output Vital Signs (last 24 hours): Temp Pulse Resp BP Pulse Ox 98 F 78 18 106/73 100 10/04/18 15:00 10/04/18 15:00 10/04/18 15:00 10/04/18 15:00 10/04/18 15:00 - Medications Medications: Current Medications Acetaminophen (Tylenol 325mg Tab) 650 mg PO Q4 PRN PRN Reason: Pain, Mild (1-3) Last Admin: 09/29/18 12:10 Dose: 650 mg Colchicine (Colocrys) 0.6 mg PO BID [facility] Last Admin: 10/04/18 17:59 Dose: 0.6 mg Cyclobenzaprine HCl (Flexeril) 5 mg PO TID [facility] Last Admin: 10/04/18 17:59 Dose: 5 mg Dextrose (Dextrose 50% Inj) 0 ml IV STAT PRN; Protocol PRN Reason: Hypoglycemia Protocol Dextrose (Glutose 15) 0 gm PO ONCE PRN; Protocol PRN Reason: Hypoglycemia Protocol Diazepam (Valium) 5 mg PO BID PRN PRN Reason: Anxiety Last Admin: 10/04/18 10:59 Dose: 5 mg Dicyclomine HCl (Bentyl) 20 mg PO TID [facility] Last Admin: 10/04/18 17:59 Dose: 20 mg Diltiazem HCl (Cardizem Cd) 180 mg PO TID [facility] Last Admin: 10/04/18 17:59 Dose: 180 mg Enoxaparin Sodium (Lovenox) 90 mg SC DAILY [facility] Stop: 10/06/18 00:00 Ergocalciferol (Drisdol 50,000 Intl Units Cap) 1 cap PO Q7D [facility] Last Admin: 10/04/18 21:59 Dose: 1 cap Ferrous Gluconate (Fergon) 324 mg PO TIDCC [facility] Last Admin: 10/04/18 17:59 Dose: 324 mg Fluticasone/Vilanterol (Breo Ellipta 100-25 Mcg Inh) 1 puff INH RQ24 [facility] Last Admin: 10/03/18 08:10 Dose: Not Given Furosemide (Lasix) 20 mg PO DAILY [facility] Gabapentin (Neurontin) 300 mg PO HS [facility] Last Admin: 10/04/18 21:59 Dose: 300 mg Glipizide (Glucotrol) 10 mg PO BID [facility] Last Admin: 10/04/18 17:58 Dose: 10 mg Glucagon (Glucagen Diagnostic Kit) 0 mg IM STAT PRN; Protocol PRN Reason: Hypoglycemia Protocol Sodium Chloride (Sodium Chloride 0.9%) 1,000 mls @ 75 mls/hr IV .[id number] [facility] Last Admin: 10/04/18 14:00 Dose: 75 mls/hr Insulin Aspart (Novolog) 0 unit SC ACHS [facility]; Protocol Last Admin: 10/04/18 22:00 Dose: Not Given Insulin Aspart (Novolog) 10 unit SC AC [facility] Last Admin: 10/04/18 17:59 Dose: 10 units Insulin Glargine (Lantus) 24 unit SC HS [facility] Last Admin: 10/04/18 22:00 Dose: 24 unit Levothyroxine Sodium (Synthroid) 100 mcg PO 0630 [facility] Last Admin: 10/04/18 05:55 Dose: 100 mcg Lisinopril (Zestril) 10 mg PO DAILY [facility] Last Admin: 10/03/18 10:00 Dose: 10 mg Magnesium Oxide (Mag-Ox) 400 mg PO BID [facility] Last Admin: 10/04/18 17:59 Dose: 400 mg Nystatin (Nystop Topical Powder) 1 applic TOP BID [facility] Last Admin: 10/04/18 18:00 Dose: 1 applic Oxycodone/Acetaminophen (Percocet 5/325 Mg Tab) 2 tab PO Q6H PRN PRN Reason: Pain, severe (8-10) Stop: 10/05/18 12:11 Last Admin: 10/04/18 19:14 Dose: 2 tab Pantoprazole Sodium (Protonix Ec Tab) 40 mg PO DAILY [facility] Last Admin: 10/04/18 10:59 Dose: 40 mg Potassium Chloride (K-Dur 20 Meq Er Tab) 20 meq PO DAILY [facility] Last Admin: 10/04/18 10:58 Dose: 20 meq Prednisone (Prednisone Tab) 10 mg PO DAILY [facility] Rivaroxaban (Xarelto) 20 mg PO DAILY [facility] Last Admin: 10/03/18 10:00 Dose: 20 mg Saccharomyces Boulardii (Florastor) 250 mg PO Q12 [facility] Last Admin: 10/04/18 22:02 Dose: 250 mg Sertraline HCl (Zoloft) 50 mg PO DAILY [facility] Last Admin: 10/04/18 11:00 Dose: 50 mg Sitagliptin Phosphate (Januvia) 100 mg PO DAILY [facility] Last Admin: 10/04/18 10:58 Dose: 100 mg Trazodone HCl (Desyrel) 50 mg PO HS [facility] Last Admin: 10/04/18 21:59 Dose: 50 mg Trimethobenzamide HCl (Tigan) 200 mg IM Q8 PRN PRN Reason: Nausea/Vomiting Vitamin B Complex/Vit C/Folic Acid (Nephro-Lavinia) 1 tab PO DAILY [facility] Last Admin: 10/04/18 10:59 Dose: 1 tab - Labs Labs: 10/04/18 07:03 10/04/18 07:03 PT 22.3 SECONDS (9.7-12.2) H 09/20/18 13:45 INR 2.0 09/20/18 13:45 APTT 23 SECONDS (21-34) 10/04/18 08:16
[2018-10-05] MEDS: metroNIDAZOLE IV 500 mg/100 ml 500 MG/100 ML BAG IVPB SCH ×4 (00:13→23:38)
[2018-10-05] MEDS: Oxycodone/Acetaminophen 5/325 mg Tab PO PRN ×2 (00:14→16:27)
--- NOTE | 2018-10-05 01:29 | CP.PCM.PN ---
Subjective - Date & Time of Evaluation Date of Evaluation: 10/04/18 Time of Evaluation: 17:00 - Subjective Subjective: No complaints. Objective - Vital Signs/Intake and Output Vital Signs (last 24 hours): Temp Pulse Resp BP Pulse Ox 98 F 119 H 18 106/73 100 10/04/18 15:00 10/04/18 23:00 10/04/18 15:00 10/04/18 15:00 10/04/18 15:00 - Medications Medications: Current Medications Acetaminophen (Tylenol 325mg Tab) 650 mg PO Q4 PRN PRN Reason: Pain, Mild (1-3) Last Admin: 09/29/18 12:10 Dose: 650 mg Colchicine (Colocrys) 0.6 mg PO BID [facility] Last Admin: 10/04/18 17:59 Dose: 0.6 mg Cyclobenzaprine HCl (Flexeril) 5 mg PO TID [facility] Last Admin: 10/04/18 17:59 Dose: 5 mg Dextrose (Dextrose 50% Inj) 0 ml IV STAT PRN; Protocol PRN Reason: Hypoglycemia Protocol Dextrose (Glutose 15) 0 gm PO ONCE PRN; Protocol PRN Reason: Hypoglycemia Protocol Diazepam (Valium) 5 mg PO BID PRN PRN Reason: Anxiety Last Admin: 10/04/18 10:59 Dose: 5 mg Dicyclomine HCl (Bentyl) 20 mg PO TID [facility] Last Admin: 10/04/18 17:59 Dose: 20 mg Diltiazem HCl (Cardizem Cd) 180 mg PO TID [facility] Last Admin: 10/04/18 17:59 Dose: 180 mg Enoxaparin Sodium (Lovenox) 90 mg SC DAILY [facility] Stop: 10/06/18 00:00 Ergocalciferol (Drisdol 50,000 Intl Units Cap) 1 cap PO Q7D [facility] Last Admin: 10/04/18 21:59 Dose: 1 cap Ferrous Gluconate (Fergon) 324 mg PO TIDCC [facility] Last Admin: 10/04/18 17:59 Dose: 324 mg Fluticasone/Vilanterol (Breo Ellipta 100-25 Mcg Inh) 1 puff INH RQ24 [facility] Last Admin: 10/03/18 08:10 Dose: Not Given Furosemide (Lasix) 20 mg PO DAILY [facility] Gabapentin (Neurontin) 300 mg PO HS [facility] Last Admin: 10/04/18 21:59 Dose: 300 mg Glipizide (Glucotrol) 10 mg PO BID [facility] Last Admin: 10/04/18 17:58 Dose: 10 mg Glucagon (Glucagen Diagnostic Kit) 0 mg IM STAT PRN; Protocol PRN Reason: Hypoglycemia Protocol Sodium Chloride (Sodium Chloride 0.9%) 1,000 mls @ 75 mls/hr IV .[id number] [facility] Last Admin: 10/04/18 14:00 Dose: 75 mls/hr Metronidazole (Flagyl) 500 mg in 100 mls @ 100 mls/hr IVPB Q8H [facility]; Protocol Last Admin: 10/05/18 00:13 Dose: 100 mls/hr Insulin Aspart (Novolog) 0 unit SC ACHS [facility]; Protocol Last Admin: 10/04/18 22:00 Dose: Not Given Insulin Aspart (Novolog) 10 unit SC AC [facility] Last Admin: 10/04/18 17:59 Dose: 10 units Insulin Glargine (Lantus) 24 unit SC HS [facility] Last Admin: 10/04/18 22:00 Dose: 24 unit Levothyroxine Sodium (Synthroid) 100 mcg PO 0630 [facility] Last Admin: 10/04/18 05:55 Dose: 100 mcg Lisinopril (Zestril) 10 mg PO DAILY [facility] Last Admin: 10/03/18 10:00 Dose: 10 mg Magnesium Oxide (Mag-Ox) 400 mg PO BID [facility] Last Admin: 10/04/18 17:59 Dose: 400 mg Nystatin (Nystop Topical Powder) 1 applic TOP BID [facility] Last Admin: 10/04/18 18:00 Dose: 1 applic Oxycodone/Acetaminophen (Percocet 5/325 Mg Tab) 2 tab PO Q6H PRN PRN Reason: Pain, severe (8-10) Stop: 10/05/18 12:11 Last Admin: 10/05/18 00:14 Dose: 2 tab Pantoprazole Sodium (Protonix Ec Tab) 40 mg PO DAILY [facility] Last Admin: 10/04/18 10:59 Dose: 40 mg Potassium Chloride (K-Dur 20 Meq Er Tab) 20 meq PO DAILY [facility] Last Admin: 10/04/18 10:58 Dose: 20 meq Prednisone (Prednisone Tab) 10 mg PO DAILY [facility] Rivaroxaban (Xarelto) 20 mg PO DAILY [facility] Last Admin: 10/03/18 10:00 Dose: 20 mg Saccharomyces Boulardii (Florastor) 250 mg PO Q12 [facility] Last Admin: 10/04/18 22:02 Dose: 250 mg Sertraline HCl (Zoloft) 50 mg PO DAILY [facility] Last Admin: 10/04/18 11:00 Dose: 50 mg Sitagliptin Phosphate (Januvia) 100 mg PO DAILY [facility] Last Admin: 10/04/18 10:58 Dose: 100 mg Trazodone HCl (Desyrel) 50 mg PO HS [facility] Last Admin: 10/04/18 21:59 Dose: 50 mg Trimethobenzamide HCl (Tigan) 200 mg IM Q8 PRN PRN Reason: Nausea/Vomiting Vitamin B Complex/Vit C/Folic Acid (Nephro-Lavinia) 1 tab PO DAILY [facility] Last Admin: 10/04/18 10:59 Dose: 1 tab - Labs Labs: 10/04/18 07:03 10/04/18 07:03 PT 22.3 SECONDS (9.7-12.2) H 09/20/18 13:45 INR 2.0 09/20/18 13:45 APTT 23 SECONDS (21-34) 10/04/18 08:16 - Head Exam Head Exam: ATRAUMATIC - Eye Exam Eye Exam: Normal appearance - ENT Exam ENT Exam: Mucous Membranes Dry - Respiratory Exam Respiratory Exam: NORMAL BREATHING PATTERN - Cardiovascular Exam Cardiovascular Exam: +S1, +S2 - GI/Abdominal Exam GI & Abdominal Exam: Normal Bowel Sounds Assessment and Plan (1) Anemia Assessment & Plan: iron deficiency anemia on supplementation transfusion support PRN Status: Acute (2) Pancreatic cancer Assessment & Plan: no evidence of distant metastasis not a current surgical candidate due to debility surgical reevaluation after rehab Status: Acute
[2018-10-05] MEDS: Sodium Chloride 0.9% 1,000 ML IV SCH ×2 (03:28→05:29)
[2018-10-05] MEDS: Levothyroxine 100 MCG TAB PO SCH (05:37)
--- NOTE | 2018-10-05 07:24 | CP.PCM.PN ---
Subjective - Date & Time of Evaluation Date of Evaluation: 10/05/18 Time of Evaluation: 07:24 - Subjective Subjective: Medicine Progress Note - Dr Gutierres's service Patient seen and examined at bedside. Per nursing no acute events overnight. Patient offers no complaints at this time. Per surgery, plan for subtotal pancreatectomy next week. Objective - Vital Signs/Intake and Output Vital Signs (last 24 hours): Temp Pulse Resp BP Pulse Ox 97.8 F 116 H 20 111/71 94 L 10/04/18 23:30 10/04/18 23:30 10/04/18 23:30 10/04/18 23:30 10/04/18 23:30 Intake and Output: 10/05/18 10/05/18 06:59 18:59 Intake Total 600 Output Total 950 Balance -350 - Medications Medications: Current Medications Acetaminophen (Tylenol 325mg Tab) 650 mg PO Q4 PRN PRN Reason: Pain, Mild (1-3) Last Admin: 09/29/18 12:10 Dose: 650 mg Colchicine (Colocrys) 0.6 mg PO BID [facility] Last Admin: 10/04/18 17:59 Dose: 0.6 mg Cyclobenzaprine HCl (Flexeril) 5 mg PO TID [facility] Last Admin: 10/04/18 17:59 Dose: 5 mg Dextrose (Dextrose 50% Inj) 0 ml IV STAT PRN; Protocol PRN Reason: Hypoglycemia Protocol Dextrose (Glutose 15) 0 gm PO ONCE PRN; Protocol PRN Reason: Hypoglycemia Protocol Diazepam (Valium) 5 mg PO BID PRN PRN Reason: Anxiety Last Admin: 10/04/18 10:59 Dose: 5 mg Dicyclomine HCl (Bentyl) 20 mg PO TID [facility] Last Admin: 10/04/18 17:59 Dose: 20 mg Diltiazem HCl (Cardizem Cd) 180 mg PO TID [facility] Last Admin: 10/04/18 17:59 Dose: 180 mg Enoxaparin Sodium (Lovenox) 90 mg SC DAILY [facility] Stop: 10/06/18 00:00 Ergocalciferol (Drisdol 50,000 Intl Units Cap) 1 cap PO Q7D [facility] Last Admin: 10/04/18 21:59 Dose: 1 cap Ferrous Gluconate (Fergon) 324 mg PO TIDCC [facility] Last Admin: 10/04/18 17:59 Dose: 324 mg Fluticasone/Vilanterol (Breo Ellipta 100-25 Mcg Inh) 1 puff INH RQ24 [facility] Last Admin: 10/03/18 08:10 Dose: Not Given Furosemide (Lasix) 20 mg PO DAILY [facility] Gabapentin (Neurontin) 300 mg PO HS [facility] Last Admin: 10/04/18 21:59 Dose: 300 mg Glipizide (Glucotrol) 10 mg PO BID [facility] Last Admin: 10/04/18 17:58 Dose: 10 mg Glucagon (Glucagen Diagnostic Kit) 0 mg IM STAT PRN; Protocol PRN Reason: Hypoglycemia Protocol Sodium Chloride (Sodium Chloride 0.9%) 1,000 mls @ 75 mls/hr IV .[id number] [facility] Last Admin: 10/05/18 05:29 Dose: 75 mls/hr Metronidazole (Flagyl) 500 mg in 100 mls @ 100 mls/hr IVPB Q8H [facility]; Protocol Last Admin: 10/05/18 06:47 Dose: 100 mls/hr Insulin Aspart (Novolog) 0 unit SC ACHS [facility]; Protocol Last Admin: 10/04/18 22:00 Dose: Not Given Insulin Aspart (Novolog) 10 unit SC AC [facility] Last Admin: 10/04/18 17:59 Dose: 10 units Insulin Glargine (Lantus) 24 unit SC HS [facility] Last Admin: 10/04/18 22:00 Dose: 24 unit Levothyroxine Sodium (Synthroid) 100 mcg PO 0630 [facility] Last Admin: 10/05/18 05:37 Dose: 100 mcg Lisinopril (Zestril) 10 mg PO DAILY [facility] Last Admin: 10/03/18 10:00 Dose: 10 mg Magnesium Oxide (Mag-Ox) 400 mg PO BID [facility] Last Admin: 10/04/18 17:59 Dose: 400 mg Nystatin (Nystop Topical Powder) 1 applic TOP BID [facility] Last Admin: 10/04/18 18:00 Dose: 1 applic Oxycodone/Acetaminophen (Percocet 5/325 Mg Tab) 2 tab PO Q6H PRN PRN Reason: Pain, severe (8-10) Stop: 10/05/18 12:11 Last Admin: 10/05/18 00:14 Dose: 2 tab Pantoprazole Sodium (Protonix Ec Tab) 40 mg PO DAILY [facility] Last Admin: 10/04/18 10:59 Dose: 40 mg Potassium Chloride (K-Dur 20 Meq Er Tab) 20 meq PO DAILY [facility] Last Admin: 10/04/18 10:58 Dose: 20 meq Prednisone (Prednisone Tab) 10 mg PO DAILY [facility] Rivaroxaban (Xarelto) 20 mg PO DAILY [facility] Last Admin: 10/03/18 10:00 Dose: 20 mg Saccharomyces Boulardii (Florastor) 250 mg PO Q12 [facility] Last Admin: 10/04/18 22:02 Dose: 250 mg Sertraline HCl (Zoloft) 50 mg PO DAILY [facility] Last Admin: 10/04/18 11:00 Dose: 50 mg Sitagliptin Phosphate (Januvia) 100 mg PO DAILY [facility] Last Admin: 10/04/18 10:58 Dose: 100 mg Trazodone HCl (Desyrel) 50 mg PO HS [facility] Last Admin: 10/04/18 21:59 Dose: 50 mg Trimethobenzamide HCl (Tigan) 200 mg IM Q8 PRN PRN Reason: Nausea/Vomiting Vitamin B Complex/Vit C/Folic Acid (Nephro-Lavinia) 1 tab PO DAILY [facility] Last Admin: 10/04/18 10:59 Dose: 1 tab - Labs Labs: 10/04/18 07:03 10/04/18 07:03 PT 22.3 SECONDS (9.7-12.2) H 09/20/18 13:45 INR 2.0 09/20/18 13:45 APTT 23 SECONDS (21-34) 10/04/18 08:16 - Additional Findings Additional findings: - Constitutional Appears: Non-toxic, Chronically Ill - Head Exam Head Exam: ATRAUMATIC, NORMAL INSPECTION, NORMOCEPHALIC - Eye Exam Eye Exam: EOMI, Normal appearance. absent: Scleral icterus - ENT Exam ENT Exam: Mucous Membranes Moist - Neck Exam Neck Exam: Normal Inspection - Respiratory Exam Respiratory Exam: Decreased Breath Sounds. absent: Wheezes, NORMAL BREATHING PATTERN, Accessory Muscle Use, - Cardiovascular Exam Cardiovascular Exam: Tachycardia, +S1, +S2. absent: RRR - GI/Abdominal Exam GI & Abdominal Exam: Soft, Normal Bowel Sounds. absent: Tenderness - Extremities Exam Extremities Exam: Normal Inspection. absent: Pedal Edema - Neurological Exam Neurological Exam: Alert, Awake - Psychiatric Exam Psychiatric exam: Normal Affect, Normal Mood - Skin Skin Exam: Dry, Intact, Normal Color, Warm Assessment and Plan - Assessment and Plan (Free Text) Assessment: 63 year old female with PMHx of COPD, Pancreatic Mass, Chronic Diastolic CHF, Hypertension, DM II, Fibromyalgia, Adrenal Insufficiency, Hypothyroidism, Hx of DVT, Gout, Depression, and Current Closed Fracture of Right proximal tibia admitted for evaluation and treatment of COPD exacerbation. Hospital Course Complicated with episodes of hypotension. Plan: Acute Kidney Injury - Cr. 1.3 today - Continue fluids at 75mls/hr - Decreased Lasix 20mg PO - Held Lisinopril - Monitor Hypotension (resolved) - Continue to monitor COPD Exacerbation - Continue home medication: Breo - Duonebs Q4h prn C. Diff During Previous Admission - Completed course of Vancomycin - Repeat Cdiff negative Pancreatic Mass - Patient for possible surgery on or next Wednesday - Surgery consulted, Dr. Bright; help appreciated - CEA: 42.5, CA19-9: 1980, CA125: 36.2 - Abdomen/Pelvic CT: Heterogeneous hyperdense pancreatic mass measuring approximately 2.7 x 2.5 cm at the pancreatic body/tail. Ectatic dilated pancreatic duct. Additional cystic heterogeneous focus measuring approximately 15 x 14 mm is noted at the superior aspect of the pancreas. Appearance worrisome for malignant neoplasm. Wall thickening involving the 2nd portion of the duodenum of uncertain significance; considerations include infectious, inflammatory, or malignant etiologies. Correlate clinically and recommend further evaluation with direct visualization if indicated. Small pelvic free fl uid. Tachycardia - Cardiology consulted, Dr. Jeong; F/U Recs. - Increased Cardizem to 180mg PO TID - Will continue to monitor - Patient evaluated by cardiology, patient is high risk for cardiac event for major surgery like whipple's at this point due to unstable hemodynamics. However if benefit outweighs risk can proceed with the surgery after d/w the patient and the family. Will optimize cardiac status as much as we can (see cardiology note for further details) Stage 1 Gluteal Ulcer - Patient has been spraying hydrogen peroxide on it - Will consult Nursing Wound Care, - Turn Q2H - Consider Air Mattress Urinary Tract Infection -Urine culture growing proteus mirabilis, sensitivities reviewed -Was given Merrem 1 gm x 1 dose -ID on consult, Dr Little, help appreciated -Repeat UA was negative -Will monitor off antibiotics Intertrigo -Redness us Groin Area 2/2 to incontinence -Started Nystatin Powder BID Chronic Diastolic Congestive Heart Failure - Stable - Last echo 2017 showed Grade III reversible restrictive diastolic dysfunction, EF 55% - Lasix 20mg PO BID Decreased to 20mg PO Daily Hypertension - Lisinopril 10mg PO daily (held) - Cardizem 180mg PO BID (held) Diabetes Mellitus - Accuchecks, Hypoglycemia protocol - HgA1c 9.3 (01/2018); repeat A1c 9.0 - Insulin sliding scale - medium - Continue home medications: Januvia 100 mg PO daily, Glipizide 10mg PO BID, Gabapentin 300mg PO HS - Novolog 10 u SC AC - Lantus 24 units HS - Endocrinology consult. Dr Cam. chu appreciated. Fibromyalgia - Home medication: Diazepam 5mg PO BID - Flexeril 5mg PO TID (Holding parameters- hold if sleeping/sedated, hypotension) - Percocet 5/325mg 2 tab Q6H prn for pain - Gabapentin 300mg PO HS Adrenal Insufficiency - On prednisone 10mg PO daily Hypothyroidism - Continue Synthroid 100mcg PO daily - TSH/Free T4: 9.5/0.30 Hypokalemia -repleted -continue to monitor and replete as needed History of DVT/PE - Continue Xarelto 20mg PO daily (Held for pending Surgery) - On Lovenox 90mg SC daily Gout - Continue Colchicine Depression - Consulted psychiatry, Dr. Dexter, kimberley appreciated. - Per psychiatry, Started zoloft 50mg po daily (consider tapering up to 100mg), trazodone 50mg po hs - Valium 5mg po bid prn Closed fracture of right proximal tibia - Repeat tibia/fibula x ray showed Radiographic manifestations of continued healing proximal right tibial fracture - Orthopedic surgery consulted, Dr. Hernandez; help appreciated - Per ortho: continue well padded knee immobilizer; non operative; recommends PT/OT, NWB, VTE proph, and to f/u with Dr. Hernandez 1-2 weeks upon d/c Prophylactic Measures - Protonix 40mg PO daily, Probiotics - Xarelto 20mg PO daily (Held) - Lovenox 90 Q12H (Renally Dosed at Q24) - PT/OT - Palliative care consulted to discuss goals of care - Case management consulted for discharge planning to [facility] Disposition: For possible Surgery next week. Will monitor renal function. Plan discussed with Dr Nenita Cortez DO PGY-2
[2018-10-05] MEDS: (Novolog) Insulin Aspart, Recombinant 100 u/ml 10 ml vial SC SCH ×7 (08:08→22:00)
[2018-10-05 08:12] LABS: PROTHROMBIN TIME 10.8 SECONDS (9.7-12.2)
[2018-10-05 08:20] LABS: BASO # 0.2 K/uL (0.0-0.2); EOS # 0.1 K/uL (0.0-0.7); EOS % 0.9 % (0.0-4.0); HEMOGLOBIN 9.6 g/dL (11.0-16.0); LYMPH # 2.5 K/uL (1.0-4.3); LYMPH % 16.5 % (20.0-40.0); MEAN CELL VOLUME 77.5 fL (81.0-99.0); MEAN CORPUSCULAR HEMOGLOBIN 22.9 pg (27.0-31.0); MEAN CORPUSCULAR HGB CONC 29.5 g/dL (33.0-37.0); MEAN PLATELET VOLUME 8.9 fL (7.2-11.7); MONO # 1.2 K/uL (0.0-0.8); MONO % 7.7 % (0.0-10.0); NEUT # 11.1 K/uL (1.8-7.0); NEUT % 73.9 % (50.0-75.0); NRBC % 0.1 % (0.0-2.0); RBC 4.17 Mil/uL (3.80-5.20); RED CELL DISTRIBUTION WIDTH 22.8 % (11.5-14.5); WHITE BLOOD COUNT 15.1 K/uL (4.8-10.8)
[2018-10-05 08:40] LABS: ALB/GLOB RATIO 1.3 (1.0-2.1); ALBUMIN 3.4 g/dL (3.5-5.0); CALCIUM 8.8 mg/dl (8.6-10.4)
[2018-10-05] MEDS ORDERED: Enoxaparin 100 mg Syringe SC SCH (10:00)
[2018-10-05] MEDS ORDERED: Enoxaparin 30 mg Syringe SC SCH (10:00)
[2018-10-05] MEDS: diltiaZEM 180 mg/24 Hours CD Cap PO SCH ×3 (10:37→17:33)
[2018-10-05] MEDS: Saccharomyces Boulardi 250 mg Cap PO SCH ×2 (10:38→22:00)
[2018-10-05] MEDS: Potassium Chloride 20 mEq ER Tab PO SCH (10:39)
[2018-10-05] MEDS: Magnesium Oxide 400 mg Tab UD PO SCH ×2 (10:39→17:33)
[2018-10-05] MEDS: Pantoprazole 40 mg EC Tab PO SCH (10:40)
[2018-10-05] MEDS: Multivitamin Vitamin B Complex (Nephro-Vite) Tab PO SCH (10:40)
[2018-10-05] MEDS: Fluticasone-Vilanterol 100/25mcg Diskus INH SCH (11:30)
--- NOTE | 2018-10-05 12:20 | CP.PCM.PN ---
<Jered Gallagher - Last Filed: 10/05/18 14:59> Subjective - Date & Time of Evaluation Date of Evaluation: 10/05/18 Time of Evaluation: 12:19 - Subjective Subjective: Progress note for Dr. Valle Patient seen and examined at bedside. She has no complaints at this time. She denies feeling short of breath currently. Objective - Vital Signs/Intake and Output Vital Signs (last 24 hours): Temp Pulse Resp BP Pulse Ox 97.5 F L 116 H 20 110/68 96 10/05/18 07:00 10/05/18 10:00 10/05/18 07:00 10/05/18 10:39 10/05/18 07:00 Intake and Output: 10/05/18 10/05/18 06:59 18:59 Intake Total 600 Output Total 950 Balance -350 - Medications Medications: Current Medications Acetaminophen (Tylenol 325mg Tab) 650 mg PO Q4 PRN PRN Reason: Pain, Mild (1-3) Last Admin: 09/29/18 12:10 Dose: 650 mg Colchicine (Colocrys) 0.6 mg PO BID [facility] Last Admin: 10/05/18 10:37 Dose: 0.6 mg Cyclobenzaprine HCl (Flexeril) 5 mg PO TID [facility] Last Admin: 10/05/18 10:38 Dose: 5 mg Dextrose (Dextrose 50% Inj) 0 ml IV STAT PRN; Protocol PRN Reason: Hypoglycemia Protocol Dextrose (Glutose 15) 0 gm PO ONCE PRN; Protocol PRN Reason: Hypoglycemia Protocol Diazepam (Valium) 5 mg PO BID PRN PRN Reason: Anxiety Last Admin: 10/04/18 10:59 Dose: 5 mg Dicyclomine HCl (Bentyl) 20 mg PO TID [facility] Last Admin: 10/05/18 10:37 Dose: 20 mg Diltiazem HCl (Cardizem Cd) 180 mg PO TID [facility] Last Admin: 10/05/18 10:37 Dose: 180 mg Enoxaparin Sodium (Lovenox) 90 mg SC DAILY [facility] Stop: 10/06/18 00:00 Last Admin: 10/05/18 10:39 Dose: 90 mg Ergocalciferol (Drisdol 50,000 Intl Units Cap) 1 cap PO Q7D [facility] Last Admin: 10/04/18 21:59 Dose: 1 cap Ferrous Gluconate (Fergon) 324 mg PO TIDCC [facility] Last Admin: 10/05/18 12:08 Dose: 324 mg Fluticasone/Vilanterol (Breo Ellipta 100-25 Mcg Inh) 1 puff INH RQ24 [facility] Last Admin: 10/05/18 11:30 Dose: Not Given Furosemide (Lasix) 20 mg PO DAILY [facility] Last Admin: 10/05/18 10:39 Dose: 20 mg Gabapentin (Neurontin) 300 mg PO HS [facility] Last Admin: 10/04/18 21:59 Dose: 300 mg Glipizide (Glucotrol) 10 mg PO BID [facility] Last Admin: 10/05/18 10:39 Dose: 10 mg Glucagon (Glucagen Diagnostic Kit) 0 mg IM STAT PRN; Protocol PRN Reason: Hypoglycemia Protocol Sodium Chloride (Sodium Chloride 0.9%) 1,000 mls @ 75 mls/hr IV .[id number] [facility] Last Admin: 10/05/18 05:29 Dose: 75 mls/hr Metronidazole (Flagyl) 500 mg in 100 mls @ 100 mls/hr IVPB Q8H [facility]; Protocol Last Admin: 10/05/18 06:47 Dose: 100 mls/hr Insulin Aspart (Novolog) 0 unit SC ACHS [facility]; Protocol Last Admin: 10/05/18 12:08 Dose: 2 units Insulin Aspart (Novolog) 10 unit SC AC [facility] Last Admin: 10/05/18 12:08 Dose: 10 units Insulin Glargine (Lantus) 24 unit SC HS [facility] Last Admin: 10/04/18 22:00 Dose: 24 unit Levothyroxine Sodium (Synthroid) 100 mcg PO 0630 [facility] Last Admin: 10/05/18 05:37 Dose: 100 mcg Lisinopril (Zestril) 10 mg PO DAILY [facility] Last Admin: 10/03/18 10:00 Dose: 10 mg Magnesium Oxide (Mag-Ox) 400 mg PO BID [facility] Last Admin: 10/05/18 10:39 Dose: 400 mg Nystatin (Nystop Topical Powder) 1 applic TOP BID [facility] Last Admin: 10/05/18 10:40 Dose: 1 applic Pantoprazole Sodium (Protonix Ec Tab) 40 mg PO DAILY [facility] Last Admin: 10/05/18 10:40 Dose: 40 mg Potassium Chloride (K-Dur 20 Meq Er Tab) 20 meq PO DAILY [facility] Last Admin: 10/05/18 10:39 Dose: 20 meq Prednisone (Prednisone Tab) 10 mg PO DAILY [facility] Last Admin: 10/05/18 10:40 Dose: 10 mg Rivaroxaban (Xarelto) 20 mg PO DAILY [facility] Last Admin: 10/03/18 10:00 Dose: 20 mg Saccharomyces Boulardii (Florastor) 250 mg PO Q12 [facility] Last Admin: 10/05/18 10:38 Dose: 250 mg Sertraline HCl (Zoloft) 50 mg PO DAILY [facility] Last Admin: 10/05/18 10:40 Dose: 50 mg Sitagliptin Phosphate (Januvia) 100 mg PO DAILY [facility] Last Admin: 10/05/18 10:39 Dose: 100 mg Trazodone HCl (Desyrel) 50 mg PO HS [facility] Last Admin: 10/04/18 21:59 Dose: 50 mg Trimethobenzamide HCl (Tigan) 200 mg IM Q8 PRN PRN Reason: Nausea/Vomiting Vitamin B Complex/Vit C/Folic Acid (Nephro-Lavinia) 1 tab PO DAILY [facility] Last Admin: 10/05/18 10:40 Dose: 1 tab - Labs Labs: 10/05/18 07:50 10/05/18 07:50 PT 10.8 SECONDS (9.7-12.2) 10/05/18 07:50 INR 1.0 10/05/18 07:50 APTT 27 SECONDS (21-34) 10/05/18 07:50 - Constitutional Appears: No Acute Distress - Head Exam Head Exam: ATRAUMATIC, NORMOCEPHALIC - Eye Exam Eye Exam: EOMI, PERRL - ENT Exam ENT Exam: Mucous Membranes Dry - Respiratory Exam Respiratory Exam: NORMAL BREATHING PATTERN. absent: Respiratory Distress - Cardiovascular Exam Cardiovascular Exam: REGULAR RHYTHM, +S1, +S2 - GI/Abdominal Exam GI & Abdominal Exam: Soft. absent: Distended, Firm, Guarding, Tenderness - Extremities Exam Extremities Exam: absent: Calf Tenderness - Neurological Exam Neurological Exam: Alert, Awake, Oriented x3 Assessment and Plan - Assessment and Plan (Free Text) Assessment: 63 year old female with pancreatic mass, likely neoplasm Plan: - Medically optimize patient prior to surgery - White count elevated, - monitor for signs of infection and treat appropriately - Consider tapering down steroids prior to surgery if possible - Plan for laparoscopic exploration and possible laparoscopic subtotal pancreatectomy next week Jered Gallagher, PGY1 <Adam Ross - Last Filed: 10/10/18 17:28> Objective - Vital Signs/Intake and Output Vital Signs (last 24 hours): Temp Pulse Resp BP Pulse Ox 97.4 F L 124 H 20 134/84 95 10/10/18 15:00 10/10/18 16:23 10/10/18 15:00 10/10/18 15:00 10/10/18 15:00 Intake and Output: 10/10/18 10/10/18 06:59 18:59 Output Total 400 Balance -400 - Medications Medications: Current Medications Acetaminophen (Tylenol 325mg Tab) 650 mg PO Q4 PRN PRN Reason: Pain, Mild (1-3) Last Admin: 09/29/18 12:10 Dose: 650 mg Colchicine (Colocrys) 0.6 mg PO BID [facility] Last Admin: 10/10/18 10:00 Dose: 0.6 mg Cyclobenzaprine HCl (Flexeril) 5 mg PO TID [facility] Last Admin: 10/10/18 13:14 Dose: 5 mg Dextrose (Dextrose 50% Inj) 0 ml IV STAT PRN; Protocol PRN Reason: Hypoglycemia Protocol Dextrose (Glutose 15) 0 gm PO ONCE PRN; Protocol PRN Reason: Hypoglycemia Protocol Diazepam (Valium) 5 mg PO BID PRN PRN Reason: Anxiety Last Admin: 10/10/18 10:02 Dose: 5 mg Dicyclomine HCl (Bentyl) 20 mg PO TID [facility] Last Admin: 10/10/18 13:14 Dose: 20 mg Diltiazem HCl (Cardizem Cd) 180 mg PO TID [facility] Last Admin: 10/10/18 13:13 Dose: 180 mg Ergocalciferol (Drisdol 50,000 Intl Units Cap) 1 cap PO Q7D [facility] Last Admin: 10/04/18 21:59 Dose: 1 cap Ferrous Gluconate (Fergon) 324 mg PO TIDCC [facility] Last Admin: 10/10/18 12:13 Dose: 324 mg Fluticasone/Vilanterol (Breo Ellipta 100-25 Mcg Inh) 1 puff INH RQ24 [facility] Last Admin: 10/10/18 08:06 Dose: Not Given Furosemide (Lasix) 20 mg PO DAILY [facility] Last Admin: 10/10/18 10:01 Dose: 20 mg Gabapentin (Neurontin) 300 mg PO [facility] Last Admin: 10/09/18 21:24 Dose: 300 mg Glipizide (Glucotrol) 10 mg PO BID [facility] Last Admin: 10/10/18 10:00 Dose: 10 mg Glucagon (Glucagen Diagnostic Kit) 0 mg IM STAT PRN; Protocol PRN Reason: Hypoglycemia Protocol Metronidazole (Flagyl) 500 mg in 100 mls @ 100 mls/hr IVPB Q8H [facility]; Protocol Last Admin: 10/10/18 15:02 Dose: 100 mls/hr Sodium Chloride (Sodium Chloride 0.9%) 1,000 mls @ 60 mls/hr IV .[id number] [facility] Insulin Aspart (Novolog) 0 unit SC ACHS [facility]; Protocol Last Admin: 10/10/18 12:13 Dose: 2 units Insulin Aspart (Novolog) 10 unit SC AC [facility] Last Admin: 10/10/18 12:13 Dose: 10 units Insulin Glargine (Lantus) 24 unit SC [facility] Last Admin: 10/09/18 21:23 Dose: 24 unit Levothyroxine Sodium (Synthroid) 100 mcg PO DAILY@0630 [facility] Last Admin: 10/10/18 06:47 Dose: 100 mcg Lisinopril (Zestril) 10 mg PO DAILY [facility] Last Admin: 10/03/18 10:00 Dose: 10 mg Magnesium Oxide (Mag-Ox) 400 mg PO BID [facility] Last Admin: 10/10/18 09:59 Dose: 400 mg Nystatin (Nystop Topical Powder) 1 applic TOP BID [facility] Last Admin: 10/10/18 10:06 Dose: 1 applic Oxycodone/Acetaminophen (Percocet 5/325 Mg Tab) 2 tab PO Q6H PRN PRN Reason: Pain, severe (8-10) Stop: 10/12/18 19:15 Last Admin: 10/10/18 10:55 Dose: 2 tab Pantoprazole Sodium (Protonix Ec Tab) 40 mg PO DAILY [facility] Last Admin: 10/10/18 09:59 Dose: 40 mg Potassium Chloride (K-Dur 20 Meq Er Tab) 20 meq PO DAILY [facility] Last Admin: 04/08/19 10:00 Dose: 20 meq Prednisone (Prednisone Tab) 10 mg PO DAILY [facility] Last Admin: 10/10/18 10:00 Dose: 10 mg Rivaroxaban (Xarelto) 20 mg PO DAILY [facility] Last Admin: 10/03/18 10:00 Dose: 20 mg Saccharomyces Boulardii (Florastor) 250 mg PO Q12 [facility] Last Admin: 10/10/18 09:59 Dose: 250 mg Sertraline HCl (Zoloft) 50 mg PO DAILY [facility] Last Admin: 10/10/18 10:01 Dose: 50 mg Sitagliptin Phosphate (Januvia) 100 mg PO DAILY [facility] Last Admin: 10/10/18 10:00 Dose: 100 mg Trazodone HCl (Desyrel) 50 mg PO HS [facility] Last Admin: 10/09/18 21:25 Dose: 50 mg Trimethobenzamide HCl (Tigan) 200 mg IM Q8 PRN PRN Reason: Nausea/Vomiting Vitamin B Complex/Vit C/Folic Acid (Nephro-Lavinia) 1 tab PO DAILY [facility] Last Admin: 10/10/18 10:00 Dose: 1 tab - Labs Labs: 10/10/18 07:28 10/10/18 07:28 PT 11.0 SECONDS (9.7-12.2) 10/10/18 07:28 INR 1.0 10/10/18 07:28 APTT 25 SECONDS (21-34) 10/10/18 07:28 Assessment and Plan - Assessment and Plan (Free Text) Plan: All medical record entries made by the resident were at my direction. I have reviewed the chart and agree that the record accurately reflects my personal performance of the history, physical exam, and medical decision making.
--- NOTE | 2018-10-05 17:24 | CP.PCM.PN ---
Subjective - Date & Time of Evaluation Date of Evaluation: 10/05/18 Time of Evaluation: 09:00 - Subjective Subjective: afeb off antibiotics for subtotal pancreatectomy Objective - Vital Signs/Intake and Output Vital Signs (last 24 hours): Temp Pulse Resp BP Pulse Ox 98.3 F 126 H 20 124/75 93 L 10/05/18 15:00 10/05/18 15:00 10/05/18 15:00 10/05/18 15:00 10/05/18 15:00 Intake and Output: 10/05/18 10/05/18 06:59 18:59 Intake Total 600 Output Total 950 Balance -350 - Medications Medications: Current Medications Acetaminophen (Tylenol 325mg Tab) 650 mg PO Q4 PRN PRN Reason: Pain, Mild (1-3) Last Admin: 09/29/18 12:10 Dose: 650 mg Colchicine (Colocrys) 0.6 mg PO BID [facility] Last Admin: 10/05/18 10:37 Dose: 0.6 mg Cyclobenzaprine HCl (Flexeril) 5 mg PO TID [facility] Last Admin: 10/05/18 13:50 Dose: 5 mg Dextrose (Dextrose 50% Inj) 0 ml IV STAT PRN; Protocol PRN Reason: Hypoglycemia Protocol Dextrose (Glutose 15) 0 gm PO ONCE PRN; Protocol PRN Reason: Hypoglycemia Protocol Diazepam (Valium) 5 mg PO BID PRN PRN Reason: Anxiety Last Admin: 10/04/18 10:59 Dose: 5 mg Dicyclomine HCl (Bentyl) 20 mg PO TID [facility] Last Admin: 10/05/18 13:50 Dose: 20 mg Diltiazem HCl (Cardizem Cd) 180 mg PO TID [facility] Last Admin: 10/05/18 13:50 Dose: 180 mg Enoxaparin Sodium (Lovenox) 90 mg SC DAILY [facility] Stop: 10/06/18 00:00 Last Admin: 10/05/18 10:39 Dose: 90 mg Ergocalciferol (Drisdol 50,000 Intl Units Cap) 1 cap PO Q7D [facility] Last Admin: 10/04/18 21:59 Dose: 1 cap Ferrous Gluconate (Fergon) 324 mg PO TIDCC [facility] Last Admin: 10/05/18 17:00 Dose: 324 mg Fluticasone/Vilanterol (Breo Ellipta 100-25 Mcg Inh) 1 puff INH RQ24 [facility] Last Admin: 10/05/18 11:30 Dose: Not Given Furosemide (Lasix) 20 mg PO DAILY [facility] Last Admin: 10/05/18 10:39 Dose: 20 mg Gabapentin (Neurontin) 300 mg PO HS [facility] Last Admin: 10/04/18 21:59 Dose: 300 mg Glipizide (Glucotrol) 10 mg PO BID [facility] Last Admin: 10/05/18 10:39 Dose: 10 mg Glucagon (Glucagen Diagnostic Kit) 0 mg IM STAT PRN; Protocol PRN Reason: Hypoglycemia Protocol Sodium Chloride (Sodium Chloride 0.9%) 1,000 mls @ 75 mls/hr IV .[id number] [facility] Last Admin: 10/05/18 05:29 Dose: 75 mls/hr Metronidazole (Flagyl) 500 mg in 100 mls @ 100 mls/hr IVPB Q8H [facility]; Protocol Last Admin: 10/05/18 15:06 Dose: 100 mls/hr Insulin Aspart (Novolog) 0 unit SC ACHS [facility]; Protocol Last Admin: 10/05/18 17:00 Dose: 3 units Insulin Aspart (Novolog) 10 unit SC AC [facility] Last Admin: 10/05/18 17:00 Dose: 10 units Insulin Glargine (Lantus) 24 unit SC HS [facility] Last Admin: 10/04/18 22:00 Dose: 24 unit Levothyroxine Sodium (Synthroid) 100 mcg PO 0630 [facility] Last Admin: 10/05/18 05:37 Dose: 100 mcg Lisinopril (Zestril) 10 mg PO DAILY [facility] Last Admin: 10/03/18 10:00 Dose: 10 mg Magnesium Oxide (Mag-Ox) 400 mg PO BID [facility] Last Admin: 10/05/18 10:39 Dose: 400 mg Nystatin (Nystop Topical Powder) 1 applic TOP BID [facility] Last Admin: 10/05/18 10:40 Dose: 1 applic Oxycodone/Acetaminophen (Percocet 5/325 Mg Tab) 2 tab PO Q6H PRN PRN Reason: Pain, severe (8-10) Stop: 10/08/18 16:20 Last Admin: 10/05/18 16:27 Dose: 2 tab Pantoprazole Sodium (Protonix Ec Tab) 40 mg PO DAILY [facility] Last Admin: 10/05/18 10:40 Dose: 40 mg Potassium Chloride (K-Dur 20 Meq Er Tab) 20 meq PO DAILY [facility] Last Admin: 10/05/18 10:39 Dose: 20 meq Prednisone (Prednisone Tab) 10 mg PO DAILY [facility] Last Admin: 10/05/18 10:40 Dose: 10 mg Rivaroxaban (Xarelto) 20 mg PO DAILY [facility] Last Admin: 10/03/18 10:00 Dose: 20 mg Saccharomyces Boulardii (Florastor) 250 mg PO Q12 [facility] Last Admin: 10/05/18 10:38 Dose: 250 mg Sertraline HCl (Zoloft) 50 mg PO DAILY [facility] Last Admin: 10/05/18 10:40 Dose: 50 mg Sitagliptin Phosphate (Januvia) 100 mg PO DAILY [facility] Last Admin: 10/05/18 10:39 Dose: 100 mg Trazodone HCl (Desyrel) 50 mg PO HS [facility] Last Admin: 10/04/18 21:59 Dose: 50 mg Trimethobenzamide HCl (Tigan) 200 mg IM Q8 PRN PRN Reason: Nausea/Vomiting Vitamin B Complex/Vit C/Folic Acid (Nephro-Lavinia) 1 tab PO DAILY [facility] Last Admin: 10/05/18 10:40 Dose: 1 tab - Labs Labs: 10/05/18 07:50 10/05/18 07:50 PT 10.8 SECONDS (9.7-12.2) 10/05/18 07:50 INR 1.0 10/05/18 07:50 APTT 27 SECONDS (21-34) 10/05/18 07:50 - Constitutional Appears: No Acute Distress, Chronically Ill - Head Exam Head Exam: NORMOCEPHALIC - Eye Exam Eye Exam: absent: Scleral icterus - ENT Exam ENT Exam: Mucous Membranes Dry - Neck Exam Neck Exam: absent: Lymphadenopathy - Respiratory Exam Respiratory Exam: Decreased Breath Sounds, Prolonged Expiratory Phase - Cardiovascular Exam Cardiovascular Exam: REGULAR RHYTHM - GI/Abdominal Exam GI & Abdominal Exam: Distended - Rectal Exam Rectal Exam: Deferred Assessment and Plan (1) Urinary tract infection due to extended-spectrum beta lactamase (ESBL) producing Escherichia coli Status: Acute (2) Pancreatic cancer Status: Acute (3) Abdominal pain Status: Acute - Assessment and Plan (Free Text) Assessment: cont rx observe off antibiotics
[2018-10-05] MEDS: (Lantus) Insulin Glargine, Recombinant SC SCH (21:36)
--- NOTE | 2018-10-05 22:27 | CP.PCM.PN ---
Subjective - Date & Time of Evaluation Date of Evaluation: 10/05/18 Time of Evaluation: 19:00 - Subjective Subjective: No complaints. Objective - Vital Signs/Intake and Output Vital Signs (last 24 hours): Temp Pulse Resp BP Pulse Ox 98.3 F 125 H 20 124/75 93 L 10/05/18 15:00 10/05/18 19:58 10/05/18 15:00 10/05/18 15:00 10/05/18 15:00 Intake and Output: 10/05/18 10/06/18 18:59 06:59 Output Total 600 Balance -600 - Medications Medications: Current Medications Acetaminophen (Tylenol 325mg Tab) 650 mg PO Q4 PRN PRN Reason: Pain, Mild (1-3) Last Admin: 09/29/18 12:10 Dose: 650 mg Colchicine (Colocrys) 0.6 mg PO BID [facility] Last Admin: 10/05/18 17:33 Dose: 0.6 mg Cyclobenzaprine HCl (Flexeril) 5 mg PO TID [facility] Last Admin: 10/05/18 17:33 Dose: 5 mg Dextrose (Dextrose 50% Inj) 0 ml IV STAT PRN; Protocol PRN Reason: Hypoglycemia Protocol Dextrose (Glutose 15) 0 gm PO ONCE PRN; Protocol PRN Reason: Hypoglycemia Protocol Diazepam (Valium) 5 mg PO BID PRN PRN Reason: Anxiety Last Admin: 10/05/18 17:59 Dose: 5 mg Dicyclomine HCl (Bentyl) 20 mg PO TID [facility] Last Admin: 10/05/18 13:50 Dose: 20 mg Diltiazem HCl (Cardizem Cd) 180 mg PO TID [facility] Last Admin: 10/05/18 17:33 Dose: 180 mg Enoxaparin Sodium (Lovenox) 90 mg SC DAILY [facility] Stop: 10/06/18 00:00 Last Admin: 10/05/18 10:39 Dose: 90 mg Ergocalciferol (Drisdol 50,000 Intl Units Cap) 1 cap PO Q7D [facility] Last Admin: 10/04/18 21:59 Dose: 1 cap Ferrous Gluconate (Fergon) 324 mg PO TIDCC [facility] Last Admin: 10/05/18 17:00 Dose: 324 mg Fluticasone/Vilanterol (Breo Ellipta 100-25 Mcg Inh) 1 puff INH RQ24 [facility] Last Admin: 10/05/18 11:30 Dose: Not Given Furosemide (Lasix) 20 mg PO DAILY [facility] Last Admin: 10/05/18 10:39 Dose: 20 mg Gabapentin (Neurontin) 300 mg PO HS [facility] Last Admin: 10/05/18 21:37 Dose: 300 mg Glipizide (Glucotrol) 10 mg PO BID [facility] Last Admin: 10/05/18 17:33 Dose: 10 mg Glucagon (Glucagen Diagnostic Kit) 0 mg IM STAT PRN; Protocol PRN Reason: Hypoglycemia Protocol Sodium Chloride (Sodium Chloride 0.9%) 1,000 mls @ 75 mls/hr IV .[id number] [facility] Last Admin: 10/05/18 05:29 Dose: 75 mls/hr Metronidazole (Flagyl) 500 mg in 100 mls @ 100 mls/hr IVPB Q8H [facility]; Protocol Last Admin: 10/05/18 15:06 Dose: 100 mls/hr Insulin Aspart (Novolog) 0 unit SC ACHS [facility]; Protocol Last Admin: 10/05/18 17:00 Dose: 3 units Insulin Aspart (Novolog) 10 unit SC AC [facility] Last Admin: 10/05/18 17:00 Dose: 10 units Insulin Glargine (Lantus) 24 unit SC HS [facility] Last Admin: 10/05/18 21:36 Dose: 24 unit Levothyroxine Sodium (Synthroid) 100 mcg PO 0630 [facility] Last Admin: 10/05/18 05:37 Dose: 100 mcg Lisinopril (Zestril) 10 mg PO DAILY [facility] Last Admin: 10/03/18 10:00 Dose: 10 mg Magnesium Oxide (Mag-Ox) 400 mg PO BID [facility] Last Admin: 10/05/18 17:33 Dose: 400 mg Nystatin (Nystop Topical Powder) 1 applic TOP BID [facility] Last Admin: 10/05/18 17:34 Dose: 1 applic Oxycodone/Acetaminophen (Percocet 5/325 Mg Tab) 2 tab PO Q6H PRN PRN Reason: Pain, severe (8-10) Stop: 10/08/18 16:20 Last Admin: 10/05/18 16:27 Dose: 2 tab Pantoprazole Sodium (Protonix Ec Tab) 40 mg PO DAILY [facility] Last Admin: 10/05/18 10:40 Dose: 40 mg Potassium Chloride (K-Dur 20 Meq Er Tab) 20 meq PO DAILY [facility] Last Admin: 10/05/18 10:39 Dose: 20 meq Prednisone (Prednisone Tab) 10 mg PO DAILY [facility] Last Admin: 10/05/18 10:40 Dose: 10 mg Rivaroxaban (Xarelto) 20 mg PO DAILY [facility] Last Admin: 10/03/18 10:00 Dose: 20 mg Saccharomyces Boulardii (Florastor) 250 mg PO Q12 [facility] Last Admin: 10/05/18 10:38 Dose: 250 mg Sertraline HCl (Zoloft) 50 mg PO DAILY [facility] Last Admin: 10/05/18 10:40 Dose: 50 mg Sitagliptin Phosphate (Januvia) 100 mg PO DAILY [facility] Last Admin: 10/05/18 10:39 Dose: 100 mg Trazodone HCl (Desyrel) 50 mg PO HS [facility] Last Admin: 10/05/18 21:37 Dose: 50 mg Trimethobenzamide HCl (Tigan) 200 mg IM Q8 PRN PRN Reason: Nausea/Vomiting Vitamin B Complex/Vit C/Folic Acid (Nephro-Lavinia) 1 tab PO DAILY [facility] Last Admin: 10/05/18 10:40 Dose: 1 tab - Labs Labs: 10/05/18 07:50 10/05/18 07:50 PT 10.8 SECONDS (9.7-12.2) 10/05/18 07:50 INR 1.0 10/05/18 07:50 APTT 27 SECONDS (21-34) 10/05/18 07:50 - Head Exam Head Exam: ATRAUMATIC - Eye Exam Eye Exam: Normal appearance - ENT Exam ENT Exam: Mucous Membranes Dry - Respiratory Exam Respiratory Exam: NORMAL BREATHING PATTERN - Cardiovascular Exam Cardiovascular Exam: +S1, +S2 - GI/Abdominal Exam GI & Abdominal Exam: Normal Bowel Sounds Assessment and Plan (1) Anemia Assessment & Plan: iron deficiency anemia on supplementation transfusion support PRN Status: Acute (2) Pancreatic cancer Assessment & Plan: no evidence of distant metastasis not a current surgical candidate due to debility surgical reevaluation after rehab Status: Acute
[2018-10-06] MEDS: Sodium Chloride 0.9% 1,000 ML IV SCH ×3 (03:43→21:43)
[2018-10-06] MEDS: Levothyroxine 100 MCG TAB PO SCH (06:05)
[2018-10-06] MEDS: metroNIDAZOLE IV 500 mg/100 ml 500 MG/100 ML BAG IVPB SCH ×2 (06:44→15:08)
[2018-10-06] MEDS: (Novolog) Insulin Aspart, Recombinant 100 u/ml 10 ml vial SC SCH ×7 (06:55→21:17)
[2018-10-06 07:23] LABS: BASO # 0.1 K/uL (0.0-0.2); BASO % 0.7 % (0.0-2.0); EOS # 0.1 K/uL (0.0-0.7); EOS % 0.7 % (0.0-4.0); HEMOGLOBIN 8.8 g/dL (11.0-16.0); LYMPH # 1.9 K/uL (1.0-4.3); LYMPH % 16.1 % (20.0-40.0); MEAN CELL VOLUME 77.5 fL (81.0-99.0); MEAN CORPUSCULAR HEMOGLOBIN 23.4 pg (27.0-31.0); MEAN CORPUSCULAR HGB CONC 30.2 g/dL (33.0-37.0); MEAN PLATELET VOLUME 8.5 fL (7.2-11.7); MONO # 0.9 K/uL (0.0-0.8); MONO % 7.5 % (0.0-10.0); NEUT # 8.8 K/uL (1.8-7.0); NRBC % 0.1 % (0.0-2.0); RBC 3.78 Mil/uL (3.80-5.20); RED CELL DISTRIBUTION WIDTH 22.1 % (11.5-14.5); WHITE BLOOD COUNT 11.7 K/uL (4.8-10.8)
[2018-10-06 07:26] LABS: PROTHROMBIN TIME 11.3 SECONDS (9.7-12.2)
[2018-10-06 07:33] LABS: ALB/GLOB RATIO 1.2 (1.0-2.1); ALBUMIN 3.1 g/dL (3.5-5.0); ALT/SGPT 106 U/L (9-52); AST/SGOT 45 U/L (14-36); BLOOD UREA NITROGEN 31 mg/dL (7-17); CALCIUM 8.8 mg/dl (8.6-10.4); GFR NON-AFRICAN AMERICAN 50
[2018-10-06] MEDS: Fluticasone-Vilanterol 100/25mcg Diskus INH SCH (08:36)
[2018-10-06] MEDS: Saccharomyces Boulardi 250 mg Cap PO SCH ×2 (09:06→21:33)
[2018-10-06] MEDS: Magnesium Oxide 400 mg Tab UD PO SCH ×2 (09:07→17:17)
[2018-10-06] MEDS: Pantoprazole 40 mg EC Tab PO SCH (09:07)
[2018-10-06] MEDS: diltiaZEM 180 mg/24 Hours CD Cap PO SCH ×3 (09:07→17:17)
[2018-10-06] MEDS: Multivitamin Vitamin B Complex (Nephro-Vite) Tab PO SCH (09:07)
[2018-10-06] MEDS: Potassium Chloride 20 mEq ER Tab PO SCH (09:07)
[2018-10-06] MEDS: Oxycodone/Acetaminophen 5/325 mg Tab PO PRN ×2 (12:29→21:37)
--- NOTE | 2018-10-06 19:03 | CP.PCM.PN ---
Subjective - Date & Time of Evaluation Date of Evaluation: 10/06/18 Time of Evaluation: 10:05 - Subjective Subjective: Medicine Progress Note - Dr Gutierres's service Patient seen and examined at bedside. Per nursing no acute events overnight. Patient offers no complaints at this time. Per surgery, plan for subtotal pancreatectomy next week. 12 point systems reviewed and negative unless stated. Objective - Vital Signs/Intake and Output Vital Signs (last 24 hours): Temp Pulse Resp BP Pulse Ox 98.5 F 124 H 20 126/81 95 10/06/18 16:09 10/06/18 16:09 10/06/18 16:09 10/06/18 16:09 10/06/18 16:09 Intake and Output: 10/06/18 10/07/18 18:59 06:59 Intake Total 1180 Output Total 800 Balance 380 - Medications Medications: Current Medications Acetaminophen (Tylenol 325mg Tab) 650 mg PO Q4 PRN PRN Reason: Pain, Mild (1-3) Last Admin: 09/29/18 12:10 Dose: 650 mg Colchicine (Colocrys) 0.6 mg PO BID [facility] Last Admin: 10/06/18 17:17 Dose: 0.6 mg Cyclobenzaprine HCl (Flexeril) 5 mg PO TID [facility] Last Admin: 10/06/18 17:17 Dose: 5 mg Dextrose (Dextrose 50% Inj) 0 ml IV STAT PRN; Protocol PRN Reason: Hypoglycemia Protocol Dextrose (Glutose 15) 0 gm PO ONCE PRN; Protocol PRN Reason: Hypoglycemia Protocol Diazepam (Valium) 5 mg PO BID PRN PRN Reason: Anxiety Last Admin: 10/06/18 09:07 Dose: 5 mg Dicyclomine HCl (Bentyl) 20 mg PO TID [facility] Last Admin: 10/06/18 17:18 Dose: 20 mg Diltiazem HCl (Cardizem Cd) 180 mg PO TID [facility] Last Admin: 10/06/18 17:17 Dose: 180 mg Ergocalciferol (Drisdol 50,000 Intl Units Cap) 1 cap PO Q7D [facility] Last Admin: 10/04/18 21:59 Dose: 1 cap Ferrous Gluconate (Fergon) 324 mg PO TIDCC [facility] Last Admin: 10/06/18 17:17 Dose: 324 mg Fluticasone/Vilanterol (Breo Ellipta 100-25 Mcg Inh) 1 puff INH RQ24 [facility] Last Admin: 10/06/18 08:36 Dose: Not Given Furosemide (Lasix) 20 mg PO DAILY [facility] Last Admin: 10/06/18 09:08 Dose: 20 mg Gabapentin (Neurontin) 300 mg PO HS [facility] Last Admin: 10/05/18 21:37 Dose: 300 mg Glipizide (Glucotrol) 10 mg PO BID [facility] Last Admin: 10/06/18 17:17 Dose: 10 mg Glucagon (Glucagen Diagnostic Kit) 0 mg IM STAT PRN; Protocol PRN Reason: Hypoglycemia Protocol Sodium Chloride (Sodium Chloride 0.9%) 1,000 mls @ 75 mls/hr IV .[id number] [facility] Last Admin: 10/06/18 03:43 Dose: 75 mls/hr Metronidazole (Flagyl) 500 mg in 100 mls @ 100 mls/hr IVPB Q8H [facility]; Protocol Last Admin: 10/06/18 15:08 Dose: 100 mls/hr Insulin Aspart (Novolog) 0 unit SC ACHS [facility]; Protocol Last Admin: 10/06/18 17:16 Dose: 3 units Insulin Aspart (Novolog) 10 unit SC AC [facility] Last Admin: 10/06/18 17:17 Dose: 10 units Insulin Glargine (Lantus) 24 unit SC HS [facility] Last Admin: 10/05/18 21:36 Dose: 24 unit Levothyroxine Sodium (Synthroid) 100 mcg PO 0630 [facility] Last Admin: 10/06/18 06:05 Dose: 100 mcg Lisinopril (Zestril) 10 mg PO DAILY [facility] Last Admin: 10/03/18 10:00 Dose: 10 mg Magnesium Oxide (Mag-Ox) 400 mg PO BID [facility] Last Admin: 10/06/18 17:17 Dose: 400 mg Nystatin (Nystop Topical Powder) 1 applic TOP BID [facility] Last Admin: 10/06/18 09:08 Dose: 1 applic Oxycodone/Acetaminophen (Percocet 5/325 Mg Tab) 2 tab PO Q6H PRN PRN Reason: Pain, severe (8-10) Stop: 10/08/18 16:20 Last Admin: 10/06/18 12:29 Dose: 2 tab Pantoprazole Sodium (Protonix Ec Tab) 40 mg PO DAILY [facility] Last Admin: 10/06/18 09:07 Dose: 40 mg Potassium Chloride (K-Dur 20 Meq Er Tab) 20 meq PO DAILY [facility] Last Admin: 10/06/18 09:07 Dose: 20 meq Prednisone (Prednisone Tab) 10 mg PO DAILY [facility] Last Admin: 10/06/18 09:07 Dose: 10 mg Rivaroxaban (Xarelto) 20 mg PO DAILY [facility] Last Admin: 10/03/18 10:00 Dose: 20 mg Saccharomyces Boulardii (Florastor) 250 mg PO Q12 [facility] Last Admin: 10/06/18 09:06 Dose: 250 mg Sertraline HCl (Zoloft) 50 mg PO DAILY [facility] Last Admin: 10/06/18 09:07 Dose: 50 mg Sitagliptin Phosphate (Januvia) 100 mg PO DAILY [facility] Last Admin: 10/06/18 09:07 Dose: 100 mg Trazodone HCl (Desyrel) 50 mg PO HS [facility] Last Admin: 10/05/18 21:37 Dose: 50 mg Trimethobenzamide HCl (Tigan) 200 mg IM Q8 PRN PRN Reason: Nausea/Vomiting Vitamin B Complex/Vit C/Folic Acid (Nephro-Lavinia) 1 tab PO DAILY [facility] Last Admin: 10/06/18 09:07 Dose: 1 tab - Labs Labs: 10/06/18 07:12 10/06/18 07:12 PT 11.3 SECONDS (9.7-12.2) 10/06/18 07:12 INR 1.0 10/06/18 07:12 APTT 27 SECONDS (21-34) 10/06/18 07:12 - Additional Findings Additional findings: - Constitutional Appears: Non-toxic, Chronically Ill - Head Exam Head Exam: ATRAUMATIC, NORMAL INSPECTION, NORMOCEPHALIC - Eye Exam Eye Exam: EOMI, Normal appearance. absent: Scleral icterus - ENT Exam ENT Exam: Mucous Membranes Moist - Neck Exam Neck Exam: Normal Inspection - Respiratory Exam Respiratory Exam: Decreased Breath Sounds. absent: Wheezes, NORMAL BREATHING PATTERN, Accessory Muscle Use, - Cardiovascular Exam Cardiovascular Exam: Tachycardia, +S1, +S2. absent: RRR - GI/Abdominal Exam GI & Abdominal Exam: Soft, Normal Bowel Sounds. absent: Tenderness - Extremities Exam Extremities Exam: Normal Inspection. absent: Pedal Edema - Neurological Exam Neurological Exam: Alert, Awake - Psychiatric Exam Psychiatric exam: Normal Affect, Normal Mood - Skin Skin Exam: Dry, Intact, Normal Color, Warm Assessment and Plan - Assessment and Plan (Free Text) Assessment: 63 year old female with PMHx of COPD, Pancreatic Mass, Chronic Diastolic CHF, Hypertension, DM II, Fibromyalgia, Adrenal Insufficiency, Hypothyroidism, Hx of DVT, Gout, Depression, and Current Closed Fracture of Right proximal tibia admitted for evaluation and treatment of COPD exacerbation. Hospital Course Complicated with episodes of hypotension. Plan: COPD Exacerbation - Continue home medication: Breo - Duonebs Q4h prn Acute Kidney Injury (Resolved) - Continue fluids at 75mls/hr - Decreased Lasix 20mg PO - Held Lisinopril - Monitor Hypotension (resolved) - Continue to monitor C. Diff During Previous Admission - Completed course of Vancomycin - Repeat Cdiff negative Pancreatic Mass - Patient for possible surgery on or next Wednesday - Surgery consulted, Dr. Bright; help appreciated - CEA: 42.5, CA19-9: 1980, CA125: 36.2 - Abdomen/Pelvic CT: Heterogeneous hyperdense pancreatic mass measuring approximately 2.7 x 2.5 cm at the pancreatic body/tail. Ectatic dilated pancreatic duct. Additional cystic heterogeneous focus measuring approximately 15 x 14 mm is noted at the superior aspect of the pancreas. Appearance worrisome for malignant neoplasm. Wall thickening involving the 2nd portion of the duodenum of uncertain significance; considerations include infectious, inflammatory, or malignant etiologies. Correlate clinically and recommend further evaluation with direct visualization if indicated. Small pelvic free fluid. Tachycardia (Acute) - Cardiology consulted, Dr. Jeong; F/U Recs. - Increased Cardizem to 180mg PO TID - Will continue to monitor Stage 1 Gluteal Ulcer - Patient has been spraying hydrogen peroxide on it - Will consult Nursing Wound Care, - Turn Q2H - Consider Air Mattress Urinary Tract Infection -Urine culture growing proteus mirabilis, sensitivities reviewed -Was given Merrem 1 gm x 1 dose -ID on consult, Dr Little, help appreciated -Repeat UA was negative -Will monitor off antibiotics Intertrigo -Redness us Groin Area 2/2 to incontinence -Started Nystatin Powder BID Hypertension - Lisinopril 10mg PO daily - Cardizem 180mg PO TID Diabetes Mellitus - Accuchecks, Hypoglycemia protocol - HgA1c 9.3 (01/2018); repeat A1c 9.0 - Insulin sliding scale - medium - Continue home medications: Januvia 100 mg PO daily, Glipizide 10mg PO BID, Gabapentin 300mg PO HS - Novolog 10 u SC AC - Lantus 24 units HS - Endocrinology consult. Dr Cam. chu appreciated. Fibromyalgia - Home medication: Diazepam 5mg PO BID - Flexeril 5mg PO TID (Holding parameters- hold if sleeping/sedated, hypotension) - Percocet 5/325mg 2 tab Q6H prn for pain - Gabapentin 300mg PO HS Adrenal Insufficiency - On prednisone 10mg PO daily Hypothyroidism - Continue Synthroid 100mcg PO daily - TSH/Free T4: 9.5/0.30 Hypokalemia -repleted -continue to monitor and replete as needed History of DVT/PE - Continue Xarelto 20mg PO daily (Held for pending Surgery) - On Lovenox 90mg SC daily Gout - Continue Colchicine Depression - Consulted psychiatry, kimberley Villa appreciated. - Per psychiatry, Started zoloft 50mg po daily (consider tapering up to 100mg), trazodone 50mg po hs - Valium 5mg po bid prn Closed fracture of right proximal tibia - Repeat tibia/fibula x ray showed Radiographic manifestations of continued healing proximal right tibial fracture - Orthopedic surgery consulted, Dr. Hernandez; help appreciated - Per ortho: continue well padded knee immobilizer; non operative; recommends PT/OT, NWB, VTE proph, and to f/u with Dr. Hernandez 1-2 weeks upon d/c Prophylactic Measures - Protonix 40mg PO daily, Probiotics - Xarelto 20mg PO daily (Held) - Lovenox 90 Q12H (Renally Dosed at Q24) - PT/OT - Palliative care consulted to discuss goals of care - Case management consulted for discharge planning to [facility] Disposition: For Surgery next week. Will monitor renal function. Plan discussed with Dr Nenita Kong DO PGY-2
[2018-10-06] MEDS: (Lantus) Insulin Glargine, Recombinant SC SCH (21:33)
--- NOTE | 2018-10-06 23:48 | CP.PCM.PN ---
Subjective - Date & Time of Evaluation Date of Evaluation: 10/05/18 Time of Evaluation: 09:30 - Subjective Subjective: Patient seen and examined at bedside. No acute distress HR improving Objective - Additional Findings Additional findings: - Constitutional Appears: Non-toxic, Chronically Ill - Head Exam Head Exam: ATRAUMATIC, NORMAL INSPECTION, NORMOCEPHALIC - Eye Exam Eye Exam: EOMI, Normal appearance. absent: Scleral icterus - ENT Exam ENT Exam: Mucous Membranes Moist - Neck Exam Neck Exam: Normal Inspection - Respiratory Exam Respiratory Exam: Decreased Breath Sounds. absent: Wheezes, NORMAL BREATHING PATTERN, Accessory Muscle Use, - Cardiovascular Exam Cardiovascular Exam: Tachycardia, +S1, +S2. absent: RRR - GI/Abdominal Exam GI & Abdominal Exam: Soft, Normal Bowel Sounds. absent: Tenderness - Extremities Exam Extremities Exam: Normal Inspection. absent: Pedal Edema - Neurological Exam Neurological Exam: Alert, Awake - Psychiatric Exam Psychiatric exam: Normal Affect, Normal Mood - Skin Skin Exam: Dry, Intact, Normal Color, Warm Assessment and Plan - Assessment and Plan (Free Text) Assessment: 63 year old female with PMHx of COPD, Pancreatic Mass, Chronic Diastolic CHF, Hypertension, DM II, Fibromyalgia, Adrenal Insufficiency, Hypothyroidism, Hx of DVT, Gout, Depression, and Current Closed Fracture of Right proximal tibia admitted for evaluation and treatment of COPD exacerbation. Hospital Course Complicated with episodes of hypotension. Plan: COPD Exacerbation - Continue home medication: Breo - Duonebs Q4h prn Acute Kidney Injury (Resolved) - Continue fluids at 75mls/hr - Decreased Lasix 20mg PO - Held Lisinopril - Monitor Hypotension (resolved) - Continue to monitor C. Diff During Previous Admission - Completed course of Vancomycin - Repeat Cdiff negative Pancreatic Mass - Patient for possible surgery on or next Wednesday - Surgery consulted, Dr. Bright; help appreciated - CEA: 42.5, CA19-9: 1980, CA125: 36.2 - Abdomen/Pelvic CT: Heterogeneous hyperdense pancreatic mass measuring approximately 2.7 x 2.5 cm at the pancreatic body/tail. Ectatic dilated pancreatic duct. Additional cystic heterogeneous focus measuring approximately 15 x 14 mm is noted at the superior aspect of the pancreas. Appearance worrisome for malignant neoplasm. Wall thickening involving the 2nd portion of the duodenum of uncertain significance; considerations include infectious, inflammatory, or malignant etiologies. Correlate clinically and recommend further evaluation with direct visualization if indicated. Small pelvic free fluid. Tachycardia (Acute) - Cardiology consulted, Dr. Jeong; F/U Recs. - Increased Cardizem to 180mg PO TID - Will continue to monitor Stage 1 Gluteal Ulcer - Patient has been spraying hydrogen peroxide on it - Will consult Nursing Wound Care, - Turn Q2H - Consider Air Mattress Urinary Tract Infection -Urine culture growing proteus mirabilis, sensitivities reviewed -Was given Merrem 1 gm x 1 dose -ID on consult, Dr Little, help appreciated -Repeat UA was negative -Will monitor off antibiotics Intertrigo -Redness us Groin Area 2/2 to incontinence -Started Nystatin Powder BID Hypertension - Lisinopril 10mg PO daily - Cardizem 180mg PO TID Diabetes Mellitus - Accuchecks, Hypoglycemia protocol - HgA1c 9.3 (01/2018); repeat A1c 9.0 - Insulin sliding scale - medium - Continue home medications: Januvia 100 mg PO daily, Glipizide 10mg PO BID, Gabapentin 300mg PO HS - Novolog 10 u SC AC - Lantus 24 units HS - Endocrinology consult. Dr Rhodes recchris appreciated. Fibromyalgia - Home medication: Diazepam 5mg PO BID - Flexeril 5mg PO TID (Holding parameters- hold if sleeping/sedated, hypotension) - Percocet 5/325mg 2 tab Q6H prn for pain - Gabapentin 300mg PO HS Adrenal Insufficiency - On prednisone 10mg PO daily Hypothyroidism - Continue Synthroid 100mcg PO daily - TSH/Free T4: 9.5/0.30 Hypokalemia -repleted -continue to monitor and replete as needed History of DVT/PE - Continue Xarelto 20mg PO daily (Held for pending Surgery) - On Lovenox 90mg SC daily Gout - Continue Colchicine Depression - Consulted psychiatry, Dr. Dexter, recs appreciated. - Per psychiatry, Started zoloft 50mg po daily (consider tapering up to 100mg), trazodone 50mg po hs - Valium 5mg po bid prn Closed fracture of right proximal tibia - Repeat tibia/fibula x ray showed Radiographic manifestations of continued healing proximal right tibial fracture - Orthopedic surgery consulted, Dr. Hernandez; help appreciated - Per ortho: continue well padded knee immobilizer; non operative; recommends PT/OT, NWB, VTE proph, and to f/u with Dr. Hernandez 1-2 weeks upon d/c Prophylactic Measures - Protonix 40mg PO daily, Probiotics - Xarelto 20mg PO daily (Held) - Lovenox 90 Q12H (Renally Dosed at Q24) - PT/OT - Palliative care consulted to discuss goals of care - Case management consulted for discharge planning to [facility] Disposition: For Surgery next week. Will monitor renal function. Objective - Vital Signs/Intake and Output Vital Signs (last 24 hours): Temp Pulse Resp BP Pulse Ox 98.5 F 125 H 20 126/81 95 10/06/18 16:09 10/06/18 18:00 10/06/18 16:09 10/06/18 16:09 10/06/18 16:09 Intake and Output: 10/06/18 10/07/18 18:59 06:59 Intake Total 1180 Output Total 800 Balance 380 - Medications Medications: Current Medications Acetaminophen (Tylenol 325mg Tab) 650 mg PO Q4 PRN PRN Reason: Pain, Mild (1-3) Last Admin: 09/29/18 12:10 Dose: 650 mg Colchicine (Colocrys) 0.6 mg PO BID [facility] Last Admin: 10/06/18 17:17 Dose: 0.6 mg Cyclobenzaprine HCl (Flexeril) 5 mg PO TID [facility] Last Admin: 10/06/18 17:17 Dose: 5 mg Dextrose (Dextrose 50% Inj) 0 ml IV STAT PRN; Protocol PRN Reason: Hypoglycemia Protocol Dextrose (Glutose 15) 0 gm PO ONCE PRN; Protocol PRN Reason: Hypoglycemia Protocol Diazepam (Valium) 5 mg PO BID PRN PRN Reason: Anxiety Last Admin: 10/06/18 09:07 Dose: 5 mg Dicyclomine HCl (Bentyl) 20 mg PO TID [facility] Last Admin: 10/06/18 17:18 Dose: 20 mg Diltiazem HCl (Cardizem Cd) 180 mg PO TID [facility] Last Admin: 10/06/18 17:17 Dose: 180 mg Ergocalciferol (Drisdol 50,000 Intl Units Cap) 1 cap PO Q7D [facility] Last Admin: 10/04/18 21:59 Dose: 1 cap Ferrous Gluconate (Fergon) 324 mg PO TIDCC [facility] Last Admin: 10/06/18 17:17 Dose: 324 mg Fluticasone/Vilanterol (Breo Ellipta 100-25 Mcg Inh) 1 puff INH RQ24 [facility] Last Admin: 10/06/18 08:36 Dose: Not Given Furosemide (Lasix) 20 mg PO DAILY [facility] Last Admin: 10/06/18 09:08 Dose: 20 mg Gabapentin (Neurontin) 300 mg PO HS [facility] Last Admin: 10/06/18 21:33 Dose: 300 mg Glipizide (Glucotrol) 10 mg PO BID [facility] Last Admin: 10/06/18 17:17 Dose: 10 mg Glucagon (Glucagen Diagnostic Kit) 0 mg IM STAT PRN; Protocol PRN Reason: Hypoglycemia Protocol Sodium Chloride (Sodium Chloride 0.9%) 1,000 mls @ 75 mls/hr IV .[id number] [facility] Last Admin: 10/06/18 21:43 Dose: 75 mls/hr Metronidazole (Flagyl) 500 mg in 100 mls @ 100 mls/hr IVPB Q8H [facility]; Protocol Last Admin: 10/06/18 15:08 Dose: 100 mls/hr Insulin Aspart (Novolog) 0 unit SC ACHS [facility]; Protocol Last Admin: 10/06/18 21:17 Dose: Not Given Insulin Aspart (Novolog) 10 unit SC AC [facility] Last Admin: 10/06/18 17:17 Dose: 10 units Insulin Glargine (Lantus) 24 unit SC HS [facility] Last Admin: 10/06/18 21:33 Dose: 24 unit Levothyroxine Sodium (Synthroid) 100 mcg PO 0630 [facility] Last Admin: 10/06/18 06:05 Dose: 100 mcg Lisinopril (Zestril) 10 mg PO DAILY [facility] Last Admin: 10/03/18 10:00 Dose: 10 mg Magnesium Oxide (Mag-Ox) 400 mg PO BID [facility] Last Admin: 10/06/18 17:17 Dose: 400 mg Nystatin (Nystop Topical Powder) 1 applic TOP BID [facility] Last Admin: 10/06/18 21:34 Dose: Not Given Oxycodone/Acetaminophen (Percocet 5/325 Mg Tab) 2 tab PO Q6H PRN PRN Reason: Pain, severe (8-10) Stop: 10/08/18 16:20 Last Admin: 10/06/18 21:37 Dose: 2 tab Pantoprazole Sodium (Protonix Ec Tab) 40 mg PO DAILY [facility] Last Admin: 10/06/18 09:07 Dose: 40 mg Potassium Chloride (K-Dur 20 Meq Er Tab) 20 meq PO DAILY [facility] Last Admin: 10/06/18 09:07 Dose: 20 meq Prednisone (Prednisone Tab) 10 mg PO DAILY [facility] Rivaroxaban (Xarelto) 20 mg PO DAILY [facility] Last Admin: 10/03/18 10:00 Dose: 20 mg Saccharomyces Boulardii (Florastor) 250 mg PO Q12 [facility] Last Admin: 10/06/18 21:33 Dose: 250 mg Sertraline HCl (Zoloft) 50 mg PO DAILY [facility] Last Admin: 10/06/18 09:07 Dose: 50 mg Sitagliptin Phosphate (Januvia) 100 mg PO DAILY [facility] Last Admin: 10/06/18 09:07 Dose: 100 mg Trazodone HCl (Desyrel) 50 mg PO HS [facility] Last Admin: 10/06/18 21:33 Dose: 50 mg Trimethobenzamide HCl (Tigan) 200 mg IM Q8 PRN PRN Reason: Nausea/Vomiting Vitamin B Complex/Vit C/Folic Acid (Nephro-Lavinia) 1 tab PO DAILY [facility] Last Admin: 10/06/18 09:07 Dose: 1 tab - Labs Labs: 10/06/18 07:12 10/06/18 07:12 PT 11.3 SECONDS (9.7-12.2) 10/06/18 07:12 INR 1.0 10/06/18 07:12 APTT 27 SECONDS (21-34) 10/06/18 07:12
--- NOTE | 2018-10-06 23:49 | CP.PCM.PN ---
Subjective - Date & Time of Evaluation Date of Evaluation: 10/06/18 Time of Evaluation: 16:15 - Subjective Subjective: Patient seen and examined at bedside. No acute distress HR improving Objective - Additional Findings Additional findings: - Constitutional Appears: Non-toxic, Chronically Ill - Head Exam Head Exam: ATRAUMATIC, NORMAL INSPECTION, NORMOCEPHALIC - Eye Exam Eye Exam: EOMI, Normal appearance. absent: Scleral icterus - ENT Exam ENT Exam: Mucous Membranes Moist - Neck Exam Neck Exam: Normal Inspection - Respiratory Exam Respiratory Exam: Decreased Breath Sounds. absent: Wheezes, NORMAL BREATHING PATTERN, Accessory Muscle Use, - Cardiovascular Exam Cardiovascular Exam: Tachycardia, +S1, +S2. absent: RRR - GI/Abdominal Exam GI & Abdominal Exam: Soft, Normal Bowel Sounds. absent: Tenderness - Extremities Exam Extremities Exam: Normal Inspection. absent: Pedal Edema - Neurological Exam Neurological Exam: Alert, Awake - Psychiatric Exam Psychiatric exam: Normal Affect, Normal Mood - Skin Skin Exam: Dry, Intact, Normal Color, Warm Assessment and Plan - Assessment and Plan (Free Text) Assessment: 63 year old female with PMHx of COPD, Pancreatic Mass, Chronic Diastolic CHF, Hypertension, DM II, Fibromyalgia, Adrenal Insufficiency, Hypothyroidism, Hx of DVT, Gout, Depression, and Current Closed Fracture of Right proximal tibia admitted for evaluation and treatment of COPD exacerbation. Hospital Course Complicated with episodes of hypotension. Plan: COPD Exacerbation - Continue home medication: Breo - Duonebs Q4h prn Acute Kidney Injury (Resolved) - Continue fluids at 75mls/hr - Decreased Lasix 20mg PO - Held Lisinopril - Monitor Hypotension (resolved) - Continue to monitor C. Diff During Previous Admission - Completed course of Vancomycin - Repeat Cdiff negative Pancreatic Mass - Patient for possible surgery on or next Wednesday - Surgery consulted, Dr. Bright; help appreciated - CEA: 42.5, CA19-9: 1980, CA125: 36.2 - Abdomen/Pelvic CT: Heterogeneous hyperdense pancreatic mass measuring approximately 2.7 x 2.5 cm at the pancreatic body/tail. Ectatic dilated pancreatic duct. Additional cystic heterogeneous focus measuring approximately 15 x 14 mm is noted at the superior aspect of the pancreas. Appearance worrisome for malignant neoplasm. Wall thickening involving the 2nd portion of the duodenum of uncertain significance; considerations include infectious, inflammatory, or malignant etiologies. Correlate clinically and recommend further evaluation with direct visualization if indicated. Small pelvic free fluid. Tachycardia (Acute) - Cardiology consulted, Dr. Jeong; F/U Recs. - Increased Cardizem to 180mg PO TID - Will continue to monitor Stage 1 Gluteal Ulcer - Patient has been spraying hydrogen peroxide on it - Will consult Nursing Wound Care, - Turn Q2H - Consider Air Mattress Urinary Tract Infection -Urine culture growing proteus mirabilis, sensitivities reviewed -Was given Merrem 1 gm x 1 dose -ID on consult, Dr Little, help appreciated -Repeat UA was negative -Will monitor off antibiotics Intertrigo -Redness us Groin Area 2/2 to incontinence -Started Nystatin Powder BID Hypertension - Lisinopril 10mg PO daily - Cardizem 180mg PO TID Diabetes Mellitus - Accuchecks, Hypoglycemia protocol - HgA1c 9.3 (01/2018); repeat A1c 9.0 - Insulin sliding scale - medium - Continue home medications: Januvia 100 mg PO daily, Glipizide 10mg PO BID, Gabapentin 300mg PO HS - Novolog 10 u SC AC - Lantus 24 units HS - Endocrinology consult. Dr Rhodes recchris appreciated. Fibromyalgia - Home medication: Diazepam 5mg PO BID - Flexeril 5mg PO TID (Holding parameters- hold if sleeping/sedated, hypotension) - Percocet 5/325mg 2 tab Q6H prn for pain - Gabapentin 300mg PO HS Adrenal Insufficiency - On prednisone 10mg PO daily Hypothyroidism - Continue Synthroid 100mcg PO daily - TSH/Free T4: 9.5/0.30 Hypokalemia -repleted -continue to monitor and replete as needed History of DVT/PE - Continue Xarelto 20mg PO daily (Held for pending Surgery) - On Lovenox 90mg SC daily Gout - Continue Colchicine Depression - Consulted psychiatry, Dr. Dexter, recs appreciated. - Per psychiatry, Started zoloft 50mg po daily (consider tapering up to 100mg), trazodone 50mg po hs - Valium 5mg po bid prn Closed fracture of right proximal tibia - Repeat tibia/fibula x ray showed Radiographic manifestations of continued healing proximal right tibial fracture - Orthopedic surgery consulted, Dr. Hernandez; help appreciated - Per ortho: continue well padded knee immobilizer; non operative; recommends PT/OT, NWB, VTE proph, and to f/u with Dr. Hernandez 1-2 weeks upon d/c Prophylactic Measures - Protonix 40mg PO daily, Probiotics - Xarelto 20mg PO daily (Held) - Lovenox 90 Q12H (Renally Dosed at Q24) - PT/OT - Palliative care consulted to discuss goals of care - Case management consulted for discharge planning to [facility] Disposition: For Surgery next week. Will monitor renal function. Objective - Vital Signs/Intake and Output Vital Signs (last 24 hours): Temp Pulse Resp BP Pulse Ox 98.5 F 125 H 20 126/81 95 10/06/18 16:09 10/06/18 18:00 10/06/18 16:09 10/06/18 16:09 10/06/18 16:09 Intake and Output: 10/06/18 10/07/18 18:59 06:59 Intake Total 1180 Output Total 800 Balance 380 - Medications Medications: Current Medications Acetaminophen (Tylenol 325mg Tab) 650 mg PO Q4 PRN PRN Reason: Pain, Mild (1-3) Last Admin: 09/29/18 12:10 Dose: 650 mg Colchicine (Colocrys) 0.6 mg PO BID [facility] Last Admin: 10/06/18 17:17 Dose: 0.6 mg Cyclobenzaprine HCl (Flexeril) 5 mg PO TID [facility] Last Admin: 10/06/18 17:17 Dose: 5 mg Dextrose (Dextrose 50% Inj) 0 ml IV STAT PRN; Protocol PRN Reason: Hypoglycemia Protocol Dextrose (Glutose 15) 0 gm PO ONCE PRN; Protocol PRN Reason: Hypoglycemia Protocol Diazepam (Valium) 5 mg PO BID PRN PRN Reason: Anxiety Last Admin: 10/06/18 09:07 Dose: 5 mg Dicyclomine HCl (Bentyl) 20 mg PO TID [facility] Last Admin: 10/06/18 17:18 Dose: 20 mg Diltiazem HCl (Cardizem Cd) 180 mg PO TID [facility] Last Admin: 10/06/18 17:17 Dose: 180 mg Ergocalciferol (Drisdol 50,000 Intl Units Cap) 1 cap PO Q7D [facility] Last Admin: 10/04/18 21:59 Dose: 1 cap Ferrous Gluconate (Fergon) 324 mg PO TIDCC [facility] Last Admin: 10/06/18 17:17 Dose: 324 mg Fluticasone/Vilanterol (Breo Ellipta 100-25 Mcg Inh) 1 puff INH RQ24 [facility] Last Admin: 10/06/18 08:36 Dose: Not Given Furosemide (Lasix) 20 mg PO DAILY [facility] Last Admin: 10/06/18 09:08 Dose: 20 mg Gabapentin (Neurontin) 300 mg PO HS [facility] Last Admin: 10/06/18 21:33 Dose: 300 mg Glipizide (Glucotrol) 10 mg PO BID [facility] Last Admin: 10/06/18 17:17 Dose: 10 mg Glucagon (Glucagen Diagnostic Kit) 0 mg IM STAT PRN; Protocol PRN Reason: Hypoglycemia Protocol Sodium Chloride (Sodium Chloride 0.9%) 1,000 mls @ 75 mls/hr IV .[id number] [facility] Last Admin: 10/06/18 21:43 Dose: 75 mls/hr Metronidazole (Flagyl) 500 mg in 100 mls @ 100 mls/hr IVPB Q8H [facility]; Protocol Last Admin: 10/06/18 15:08 Dose: 100 mls/hr Insulin Aspart (Novolog) 0 unit SC ACHS [facility]; Protocol Last Admin: 10/06/18 21:17 Dose: Not Given Insulin Aspart (Novolog) 10 unit SC AC [facility] Last Admin: 10/06/18 17:17 Dose: 10 units Insulin Glargine (Lantus) 24 unit SC HS [facility] Last Admin: 10/06/18 21:33 Dose: 24 unit Levothyroxine Sodium (Synthroid) 100 mcg PO 0630 [facility] Last Admin: 10/06/18 06:05 Dose: 100 mcg Lisinopril (Zestril) 10 mg PO DAILY [facility] Last Admin: 10/03/18 10:00 Dose: 10 mg Magnesium Oxide (Mag-Ox) 400 mg PO BID [facility] Last Admin: 10/06/18 17:17 Dose: 400 mg Nystatin (Nystop Topical Powder) 1 applic TOP BID [facility] Last Admin: 10/06/18 21:34 Dose: Not Given Oxycodone/Acetaminophen (Percocet 5/325 Mg Tab) 2 tab PO Q6H PRN PRN Reason: Pain, severe (8-10) Stop: 10/08/18 16:20 Last Admin: 10/06/18 21:37 Dose: 2 tab Pantoprazole Sodium (Protonix Ec Tab) 40 mg PO DAILY [facility] Last Admin: 10/06/18 09:07 Dose: 40 mg Potassium Chloride (K-Dur 20 Meq Er Tab) 20 meq PO DAILY [facility] Last Admin: 10/06/18 09:07 Dose: 20 meq Prednisone (Prednisone Tab) 10 mg PO DAILY [facility] Rivaroxaban (Xarelto) 20 mg PO DAILY [facility] Last Admin: 10/03/18 10:00 Dose: 20 mg Saccharomyces Boulardii (Florastor) 250 mg PO Q12 [facility] Last Admin: 10/06/18 21:33 Dose: 250 mg Sertraline HCl (Zoloft) 50 mg PO DAILY [facility] Last Admin: 10/06/18 09:07 Dose: 50 mg Sitagliptin Phosphate (Januvia) 100 mg PO DAILY [facility] Last Admin: 10/06/18 09:07 Dose: 100 mg Trazodone HCl (Desyrel) 50 mg PO HS [facility] Last Admin: 10/06/18 21:33 Dose: 50 mg Trimethobenzamide HCl (Tigan) 200 mg IM Q8 PRN PRN Reason: Nausea/Vomiting Vitamin B Complex/Vit C/Folic Acid (Nephro-Lavinia) 1 tab PO DAILY [facility] Last Admin: 10/06/18 09:07 Dose: 1 tab - Labs Labs: 10/06/18 07:12 10/06/18 07:12 PT 11.3 SECONDS (9.7-12.2) 10/06/18 07:12 INR 1.0 10/06/18 07:12 APTT 27 SECONDS (21-34) 10/06/18 07:12
[2018-10-07] MEDS: metroNIDAZOLE IV 500 mg/100 ml 500 MG/100 ML BAG IVPB SCH ×4 (00:21→23:54)
[2018-10-07] MEDS: Levothyroxine 100 MCG TAB PO SCH (05:31)
[2018-10-07] MEDS: (Novolog) Insulin Aspart, Recombinant 100 u/ml 10 ml vial SC SCH ×7 (06:40→21:38)
[2018-10-07 08:00] LABS: BASO # 0.1 K/uL (0.0-0.2); BASO % 0.9 % (0.0-2.0); EOS # 0.1 K/uL (0.0-0.7); EOS % 0.9 % (0.0-4.0); HEMOGLOBIN 9.4 g/dL (11.0-16.0); LYMPH # 2.7 K/uL (1.0-4.3); LYMPH % 23.4 % (20.0-40.0); MEAN CELL VOLUME 77.6 fL (81.0-99.0); MEAN CORPUSCULAR HEMOGLOBIN 23.1 pg (27.0-31.0); MEAN CORPUSCULAR HGB CONC 29.8 g/dL (33.0-37.0); MEAN PLATELET VOLUME 9.3 fL (7.2-11.7); MONO % 8.8 % (0.0-10.0); NEUT # 7.6 K/uL (1.8-7.0); NRBC % 0.1 % (0.0-2.0); RBC 4.05 Mil/uL (3.80-5.20); RED CELL DISTRIBUTION WIDTH 22.1 % (11.5-14.5); WHITE BLOOD COUNT 11.5 K/uL (4.8-10.8)
[2018-10-07 08:10] LABS: PROTHROMBIN TIME 10.4 SECONDS (9.7-12.2)
[2018-10-07 08:30] LABS: ALB/GLOB RATIO 1.3 (1.0-2.1); ALBUMIN 3.3 g/dL (3.5-5.0); ALT/SGPT 108 U/L (9-52); AST/SGOT 65 U/L (14-36); BLOOD UREA NITROGEN 27 mg/dL (7-17); CALCIUM 8.8 mg/dl (8.6-10.4); GFR NON-AFRICAN AMERICAN > 60
--- NOTE | 2018-10-07 08:38 | CP.PCM.PN ---
<Jered Gallagher - Last Filed: 10/07/18 14:39> Subjective - Date & Time of Evaluation Date of Evaluation: 10/07/18 Time of Evaluation: 08:36 - Subjective Subjective: Progress Note for Dr. Valle Patient seen and examined at bedside. Patient is sleepy, has no complaints currently. She denies feeling chest pain, shortness of breath, abdominal pain, nausea, vomiting. Patient is agreeable with plan for surgery next week. Objective - Vital Signs/Intake and Output Vital Signs (last 24 hours): Temp Pulse Resp BP Pulse Ox 98.0 F 122 H 20 123/73 94 L 10/07/18 07:15 10/07/18 07:15 10/07/18 07:15 10/07/18 07:15 10/07/18 07:15 Intake and Output: 10/07/18 10/07/18 06:59 18:59 Intake Total 1640 Output Total 1350 Balance 290 - Medications Medications: Current Medications Acetaminophen (Tylenol 325mg Tab) 650 mg PO Q4 PRN PRN Reason: Pain, Mild (1-3) Last Admin: 09/29/18 12:10 Dose: 650 mg Colchicine (Colocrys) 0.6 mg PO BID [facility] Last Admin: 10/06/18 17:17 Dose: 0.6 mg Cyclobenzaprine HCl (Flexeril) 5 mg PO TID [facility] Last Admin: 10/06/18 17:17 Dose: 5 mg Dextrose (Dextrose 50% Inj) 0 ml IV STAT PRN; Protocol PRN Reason: Hypoglycemia Protocol Dextrose (Glutose 15) 0 gm PO ONCE PRN; Protocol PRN Reason: Hypoglycemia Protocol Diazepam (Valium) 5 mg PO BID PRN PRN Reason: Anxiety Last Admin: 10/06/18 09:07 Dose: 5 mg Dicyclomine HCl (Bentyl) 20 mg PO TID [facility] Last Admin: 10/06/18 17:18 Dose: 20 mg Diltiazem HCl (Cardizem Cd) 180 mg PO TID [facility] Last Admin: 10/06/18 17:17 Dose: 180 mg Ergocalciferol (Drisdol 50,000 Intl Units Cap) 1 cap PO Q7D [facility] Last Admin: 10/04/18 21:59 Dose: 1 cap Ferrous Gluconate (Fergon) 324 mg PO TIDCC [facility] Last Admin: 10/06/18 17:17 Dose: 324 mg Fluticasone/Vilanterol (Breo Ellipta 100-25 Mcg Inh) 1 puff INH RQ24 [facility] Last Admin: 10/06/18 08:36 Dose: Not Given Furosemide (Lasix) 20 mg PO DAILY [facility] Last Admin: 10/06/18 09:08 Dose: 20 mg Gabapentin (Neurontin) 300 mg PO HS [facility] Last Admin: 10/06/18 21:33 Dose: 300 mg Glipizide (Glucotrol) 10 mg PO BID [facility] Last Admin: 10/06/18 17:17 Dose: 10 mg Glucagon (Glucagen Diagnostic Kit) 0 mg IM STAT PRN; Protocol PRN Reason: Hypoglycemia Protocol Sodium Chloride (Sodium Chloride 0.9%) 1,000 mls @ 75 mls/hr IV .[id number] [facility] Last Admin: 10/06/18 21:43 Dose: 75 mls/hr Metronidazole (Flagyl) 500 mg in 100 mls @ 100 mls/hr IVPB Q8H [facility]; Protocol Last Admin: 10/07/18 06:44 Dose: 100 mls/hr Insulin Aspart (Novolog) 0 unit SC ACHS [facility]; Protocol Last Admin: 10/07/18 06:40 Dose: Not Given Insulin Aspart (Novolog) 10 unit SC AC [facility] Last Admin: 10/07/18 08:10 Dose: Not Given Insulin Glargine (Lantus) 24 unit SC HS [facility] Last Admin: 10/06/18 21:33 Dose: 24 unit Lisinopril (Zestril) 10 mg PO DAILY [facility] Last Admin: 10/03/18 10:00 Dose: 10 mg Magnesium Oxide (Mag-Ox) 400 mg PO BID [facility] Last Admin: 10/06/18 17:17 Dose: 400 mg Nystatin (Nystop Topical Powder) 1 applic TOP BID [facility] Last Admin: 10/06/18 21:34 Dose: Not Given Oxycodone/Acetaminophen (Percocet 5/325 Mg Tab) 2 tab PO Q6H PRN PRN Reason: Pain, severe (8-10) Stop: 10/08/18 16:20 Last Admin: 10/06/18 21:37 Dose: 2 tab Pantoprazole Sodium (Protonix Ec Tab) 40 mg PO DAILY [facility] Last Admin: 10/06/18 09:07 Dose: 40 mg Potassium Chloride (K-Dur 20 Meq Er Tab) 20 meq PO DAILY [facility] Last Admin: 10/06/18 09:07 Dose: 20 meq Prednisone (Prednisone Tab) 10 mg PO DAILY [facility] Rivaroxaban (Xarelto) 20 mg PO DAILY [facility] Last Admin: 10/03/18 10:00 Dose: 20 mg Saccharomyces Boulardii (Florastor) 250 mg PO Q12 [facility] Last Admin: 10/06/18 21:33 Dose: 250 mg Sertraline HCl (Zoloft) 50 mg PO DAILY [facility] Last Admin: 10/06/18 09:07 Dose: 50 mg Sitagliptin Phosphate (Januvia) 100 mg PO DAILY [facility] Last Admin: 10/06/18 09:07 Dose: 100 mg Trazodone HCl (Desyrel) 50 mg PO HS [facility] Last Admin: 10/06/18 21:33 Dose: 50 mg Trimethobenzamide HCl (Tigan) 200 mg IM Q8 PRN PRN Reason: Nausea/Vomiting Vitamin B Complex/Vit C/Folic Acid (Nephro-Lavinia) 1 tab PO DAILY [facility] Last Admin: 10/06/18 09:07 Dose: 1 tab - Labs Labs: 10/07/18 07:49 10/07/18 07:49 PT 10.4 SECONDS (9.7-12.2) 10/07/18 07:49 INR 1.0 10/07/18 07:49 APTT 25 SECONDS (21-34) 10/07/18 07:49 - Constitutional Appears: Non-toxic, Chronically Ill - Head Exam Head Exam: ATRAUMATIC, NORMOCEPHALIC - Eye Exam Eye Exam: EOMI, PERRL - ENT Exam ENT Exam: Mucous Membranes Dry - Respiratory Exam Respiratory Exam: Decreased Breath Sounds. absent: Respiratory Distress - Cardiovascular Exam Cardiovascular Exam: Tachycardia, +S1, +S2 - GI/Abdominal Exam GI & Abdominal Exam: Soft, Normal Bowel Sounds. absent: Tenderness - Extremities Exam Extremities Exam: absent: Pedal Edema - Neurological Exam Neurological Exam: Awake, Oriented x3 - Skin Skin Exam: Dry, Intact, Warm Assessment and Plan - Assessment and Plan (Free Text) Assessment: 63 year old female with history of COPD, Pancreatic Mass, Chronic Diastolic CHF, Hypertension, DM II, Fibromyalgia, Adrenal Insufficiency, Hypothyroidism, Hx of DVT, Gout, Depression, and Current Closed Fracture of Right proximal tibia admitted for evaluation and treatment of COPD exacerbation. Plan for laparoscopic exploration and possible laparoscopic subtotal pancreatectomy Plan: - Medically optimize patient prior to surgery - White count 11.5 today - monitor for signs of infection and treat appropriately - Consider tapering down steroids prior to surgery if possible - Plan for laparoscopic exploration and possible laparoscopic subtotal pancreatectomy once medically optimized Jered Gallagher, PGY1 <Adam Ross N - Last Filed: 10/10/18 17:22> Objective - Vital Signs/Intake and Output Vital Signs (last 24 hours): Temp Pulse Resp BP Pulse Ox 97.4 F L 124 H 20 134/84 95 10/10/18 15:00 10/10/18 16:23 10/10/18 15:00 10/10/18 15:00 10/10/18 15:00 Intake and Output: 10/10/18 10/10/18 06:59 18:59 Output Total 400 Balance -400 - Medications Medications: Current Medications Acetaminophen (Tylenol 325mg Tab) 650 mg PO Q4 PRN PRN Reason: Pain, Mild (1-3) Last Admin: 09/29/18 12:10 Dose: 650 mg Colchicine (Colocrys) 0.6 mg PO BID [facility] Last Admin: 10/10/18 10:00 Dose: 0.6 mg Cyclobenzaprine HCl (Flexeril) 5 mg PO TID [facility] Last Admin: 10/10/18 13:14 Dose: 5 mg Dextrose (Dextrose 50% Inj) 0 ml IV STAT PRN; Protocol PRN Reason: Hypoglycemia Protocol Dextrose (Glutose 15) 0 gm PO ONCE PRN; Protocol PRN Reason: Hypoglycemia Protocol Diazepam (Valium) 5 mg PO BID PRN PRN Reason: Anxiety Last Admin: 10/10/18 10:02 Dose: 5 mg Dicyclomine HCl (Bentyl) 20 mg PO TID [facility] Last Admin: 10/10/18 13:14 Dose: 20 mg Diltiazem HCl (Cardizem Cd) 180 mg PO TID [facility] Last Admin: 10/10/18 13:13 Dose: 180 mg Ergocalciferol (Drisdol 50,000 Intl Units Cap) 1 cap PO Q7D [facility] Last Admin: 10/04/18 21:59 Dose: 1 cap Ferrous Gluconate (Fergon) 324 mg PO TIDCC [facility] Last Admin: 10/10/18 12:13 Dose: 324 mg Fluticasone/Vilanterol (Breo Ellipta 100-25 Mcg Inh) 1 puff INH RQ24 [facility] Last Admin: 10/10/18 08:06 Dose: Not Given Furosemide (Lasix) 20 mg PO DAILY [facility] Last Admin: 10/10/18 10:01 Dose: 20 mg Gabapentin (Neurontin) 300 mg PO HS [facility] Last Admin: 10/09/18 21:24 Dose: 300 mg Glipizide (Glucotrol) 10 mg PO BID [facility] Last Admin: 10/10/18 10:00 Dose: 10 mg Glucagon (Glucagen Diagnostic Kit) 0 mg IM STAT PRN; Protocol PRN Reason: Hypoglycemia Protocol Metronidazole (Flagyl) 500 mg in 100 mls @ 100 mls/hr IVPB Q8H [facility]; Protocol Last Admin: 10/10/18 15:02 Dose: 100 mls/hr Sodium Chloride (Sodium Chloride 0.9%) 1,000 mls @ 60 mls/hr IV .[id number] [facility] Insulin Aspart (Novolog) 0 unit SC ACHS [facility]; Protocol Last Admin: 10/10/18 12:13 Dose: 2 units Insulin Aspart (Novolog) 10 unit SC AC [facility] Last Admin: 10/10/18 12:13 Dose: 10 units Insulin Glargine (Lantus) 24 unit SC HS [facility] Last Admin: 10/09/18 21:23 Dose: 24 unit Levothyroxine Sodium (Synthroid) 100 mcg PO DAILY@0630 [facility] Last Admin: 10/10/18 06:47 Dose: 100 mcg Lisinopril (Zestril) 10 mg PO DAILY [facility] Last Admin: 10/03/18 10:00 Dose: 10 mg Magnesium Oxide (Mag-Ox) 400 mg PO BID [facility] Last Admin: 10/10/18 09:59 Dose: 400 mg Nystatin (Nystop Topical Powder) 1 applic TOP BID [facility] Last Admin: 10/10/18 10:06 Dose: 1 applic Oxycodone/Acetaminophen (Percocet 5/325 Mg Tab) 2 tab PO Q6H PRN PRN Reason: Pain, severe (8-10) Stop: 10/12/18 19:15 Last Admin: 10/10/18 10:55 Dose: 2 tab Pantoprazole Sodium (Protonix Ec Tab) 40 mg PO DAILY [facility] Last Admin: 10/10/18 09:59 Dose: 40 mg Potassium Chloride (K-Dur 20 Meq Er Tab) 20 meq PO DAILY [facility] Last Admin: 10/10/18 10:00 Dose: 20 meq Prednisone (Prednisone Tab) 10 mg PO DAILY [facility] Last Admin: 10/10/18 10:00 Dose: 10 mg Rivaroxaban (Xarelto) 20 mg PO DAILY [facility] Last Admin: 10/03/18 10:00 Dose: 20 mg Saccharomyces Boulardii (Florastor) 250 mg PO Q12 [facility] Last Admin: 10/10/18 09:59 Dose: 250 mg Sertraline HCl (Zoloft) 50 mg PO DAILY [facility] Last Admin: 10/10/18 10:01 Dose: 50 mg Sitagliptin Phosphate (Januvia) 100 mg PO DAILY [facility] Last Admin: 10/10/18 10:00 Dose: 100 mg Trazodone HCl (Desyrel) 50 mg PO HS [facility] Last Admin: 10/09/18 21:25 Dose: 50 mg Trimethobenzamide HCl (Tigan) 200 mg IM Q8 PRN PRN Reason: Nausea/Vomiting Vitamin B Complex/Vit C/Folic Acid (Nephro-Lavinia) 1 tab PO DAILY [facility] Last Admin: 10/10/18 10:00 Dose: 1 tab - Labs Labs: 10/10/18 07:28 10/10/18 07:28 PT 11.0 SECONDS (9.7-12.2) 10/10/18 07:28 INR 1.0 10/10/18 07:28 APTT 25 SECONDS (21-34) 10/10/18 07:28 Assessment and Plan - Assessment and Plan (Free Text) Plan: All medical record entries made by the resident were at my direction. I have reviewed the chart and agree that the record accurately reflects my personal performance of the history, physical exam, and medical decision making.
[2018-10-07] MEDS: Magnesium Oxide 400 mg Tab UD PO SCH ×2 (10:32→18:21)
[2018-10-07] MEDS: Saccharomyces Boulardi 250 mg Cap PO SCH ×2 (10:32→21:39)
[2018-10-07] MEDS: Potassium Chloride 20 mEq ER Tab PO SCH (10:32)
[2018-10-07] MEDS: diltiaZEM 180 mg/24 Hours CD Cap PO SCH ×3 (10:32→18:22)
[2018-10-07] MEDS: Multivitamin Vitamin B Complex (Nephro-Vite) Tab PO SCH (10:33)
[2018-10-07] MEDS: Pantoprazole 40 mg EC Tab PO SCH (10:33)
[2018-10-07] MEDS: Oxycodone/Acetaminophen 5/325 mg Tab PO PRN ×2 (10:37→23:53)
[2018-10-07] MEDS: Sodium Chloride 0.9% 1,000 ML IV SCH (10:59)
--- NOTE | 2018-10-07 11:36 | CP.PCM.PN ---
Subjective - Date & Time of Evaluation Date of Evaluation: 10/07/18 Time of Evaluation: 10:00 - Subjective Subjective: Medicine Progress Note - Dr Gutierres's service Patient seen and examined at bedside. Per nursing no acute events overnight. Patient offers no complaints at this time. Per surgery, plan for surgical intervention on Wednesday10/11/18. 12 point systems reviewed and negative unless stated. Objective - Vital Signs/Intake and Output Vital Signs (last 24 hours): Temp Pulse Resp BP Pulse Ox 98.0 F 122 H 20 123/72 94 L 10/07/18 07:15 10/07/18 07:15 10/07/18 07:15 10/07/18 10:32 10/07/18 07:15 Intake and Output: 10/07/18 10/07/18 06:59 18:59 Intake Total 1640 Output Total 1350 Balance 290 - Medications Medications: Current Medications Acetaminophen (Tylenol 325mg Tab) 650 mg PO Q4 PRN PRN Reason: Pain, Mild (1-3) Last Admin: 09/29/18 12:10 Dose: 650 mg Colchicine (Colocrys) 0.6 mg PO BID [facility] Last Admin: 10/07/18 10:33 Dose: 0.6 mg Cyclobenzaprine HCl (Flexeril) 5 mg PO TID [facility] Last Admin: 10/07/18 10:33 Dose: 5 mg Dextrose (Dextrose 50% Inj) 0 ml IV STAT PRN; Protocol PRN Reason: Hypoglycemia Protocol Dextrose (Glutose 15) 0 gm PO ONCE PRN; Protocol PRN Reason: Hypoglycemia Protocol Diazepam (Valium) 5 mg PO BID PRN PRN Reason: Anxiety Last Admin: 10/06/18 09:07 Dose: 5 mg Dicyclomine HCl (Bentyl) 20 mg PO TID [facility] Last Admin: 10/07/18 10:38 Dose: 20 mg Diltiazem HCl (Cardizem Cd) 180 mg PO TID [facility] Last Admin: 10/07/18 10:32 Dose: 180 mg Ergocalciferol (Drisdol 50,000 Intl Units Cap) 1 cap PO Q7D [facility] Last Admin: 10/04/18 21:59 Dose: 1 cap Ferrous Gluconate (Fergon) 324 mg PO TIDCC [facility] Last Admin: 10/07/18 10:32 Dose: 324 mg Fluticasone/Vilanterol (Breo Ellipta 100-25 Mcg Inh) 1 puff INH RQ24 [facility] Last Admin: 10/06/18 08:36 Dose: Not Given Furosemide (Lasix) 20 mg PO DAILY [facility] Last Admin: 10/07/18 10:32 Dose: 20 mg Gabapentin (Neurontin) 300 mg PO HS [facility] Last Admin: 10/06/18 21:33 Dose: 300 mg Glipizide (Glucotrol) 10 mg PO BID [facility] Last Admin: 10/07/18 10:32 Dose: 10 mg Glucagon (Glucagen Diagnostic Kit) 0 mg IM STAT PRN; Protocol PRN Reason: Hypoglycemia Protocol Sodium Chloride (Sodium Chloride 0.9%) 1,000 mls @ 75 mls/hr IV .[id number] [facility] Last Admin: 10/07/18 10:59 Dose: Not Given Metronidazole (Flagyl) 500 mg in 100 mls @ 100 mls/hr IVPB Q8H [facility]; Protocol Last Admin: 10/07/18 06:44 Dose: 100 mls/hr Insulin Aspart (Novolog) 0 unit SC ACHS [facility]; Protocol Last Admin: 10/07/18 06:40 Dose: Not Given Insulin Aspart (Novolog) 10 unit SC AC [facility] Last Admin: 10/07/18 08:10 Dose: Not Given Insulin Glargine (Lantus) 24 unit SC HS [facility] Last Admin: 10/06/18 21:33 Dose: 24 unit Lisinopril (Zestril) 10 mg PO DAILY [facility] Last Admin: 10/03/18 10:00 Dose: 10 mg Magnesium Oxide (Mag-Ox) 400 mg PO BID [facility] Last Admin: 10/07/18 10:32 Dose: 400 mg Nystatin (Nystop Topical Powder) 1 applic TOP BID [facility] Last Admin: 10/07/18 10:34 Dose: 1 applic Oxycodone/Acetaminophen (Percocet 5/325 Mg Tab) 2 tab PO Q6H PRN PRN Reason: Pain, severe (8-10) Stop: 10/08/18 16:20 Last Admin: 10/07/18 10:37 Dose: 2 tab Pantoprazole Sodium (Protonix Ec Tab) 40 mg PO DAILY [facility] Last Admin: 10/07/18 10:33 Dose: 40 mg Potassium Chloride (K-Dur 20 Meq Er Tab) 20 meq PO DAILY [facility] Last Admin: 10/07/18 10:32 Dose: 20 meq Prednisone (Prednisone Tab) 10 mg PO DAILY [facility] Last Admin: 10/07/18 10:33 Dose: 10 mg Rivaroxaban (Xarelto) 20 mg PO DAILY [facility] Last Admin: 10/03/18 10:00 Dose: 20 mg Saccharomyces Boulardii (Florastor) 250 mg PO Q12 [facility] Last Admin: 10/07/18 10:32 Dose: 250 mg Sertraline HCl (Zoloft) 50 mg PO DAILY [facility] Last Admin: 10/07/18 10:33 Dose: 50 mg Sitagliptin Phosphate (Januvia) 100 mg PO DAILY [facility] Last Admin: 10/07/18 10:33 Dose: 100 mg Trazodone HCl (Desyrel) 50 mg PO HS [facility] Last Admin: 10/06/18 21:33 Dose: 50 mg Trimethobenzamide HCl (Tigan) 200 mg IM Q8 PRN PRN Reason: Nausea/Vomiting Vitamin B Complex/Vit C/Folic Acid (Nephro-Lavinia) 1 tab PO DAILY [facility] Last Admin: 10/07/18 10:33 Dose: 1 tab - Labs Labs: 10/07/18 07:49 10/07/18 07:49 PT 10.4 SECONDS (9.7-12.2) 10/07/18 07:49 INR 1.0 10/07/18 07:49 APTT 25 SECONDS (21-34) 10/07/18 07:49 - Additional Findings Additional findings: - Constitutional Appears: Non-toxic, Chronically Ill - Head Exam Head Exam: ATRAUMATIC, NORMAL INSPECTION, NORMOCEPHALIC - Eye Exam Eye Exam: EOMI, Normal appearance. absent: Scleral icterus - ENT Exam ENT Exam: Mucous Membranes Moist - Neck Exam Neck Exam: Normal Inspection - Respiratory Exam Respiratory Exam: Decreased Breath Sounds. absent: Wheezes, NORMAL BREATHING PATTERN, Accessory Muscle Use, - Cardiovascular Exam Cardiovascular Exam: Tachycardia, +S1, +S2. absent: RRR - GI/Abdominal Exam GI & Abdominal Exam: Soft, Normal Bowel Sounds. absent: Tenderness - Extremities Exam Extremities Exam: Normal Inspection. absent: Pedal Edema - Neurological Exam Neurological Exam: Alert, Awake - Psychiatric Exam Psychiatric exam: Normal Affect, Normal Mood - Skin Skin Exam: Dry, Intact, Normal Color, Warm Assessment and Plan - Assessment and Plan (Free Text) Assessment: 63 year old female with PMHx of COPD, Pancreatic Mass, Chronic Diastolic CHF, Hy pertension, DM II, Fibromyalgia, Adrenal Insufficiency, Hypothyroidism, Hx of DVT, Gout, Depression, and Current Closed Fracture of Right proximal tibia admitted for evaluation and treatment of COPD exacerbation. Hospital Course Complicated with episodes of hypotension. Plan: COPD Exacerbation - Continue home medication: Breo - Duonebs Q4h prn Acute Kidney Injury (Resolved) - Continue fluids at 75mls/hr - Decreased Lasix 20mg PO - Held Lisinopril - Monitor Hypotension (resolved) - Continue to monitor C. Diff During Previous Admission - Completed course of Vancomycin - Repeat Cdiff negative Pancreatic Mass - Surgical Intervention planned for Wednesday10/11/18. - Surgery consulted, Dr. Bright; help appreciated - CEA: 42.5, CA19-9: 1980, CA125: 36.2 - Abdomen/Pelvic CT: Heterogeneous hyperdense pancreatic mass measuring approx imately 2.7 x 2.5 cm at the pancreatic body/tail. Ectatic dilated pancreatic duct. Additional cystic heterogeneous focus measuring approximately 15 x 14 mm is noted at the superior aspect of the pancreas. Appearance worrisome for malignant neoplasm. Wall thickening involving the 2nd portion of the duodenum of uncertain significance; considerations include infectious, inflammatory, or malignant etiologies. Correlate clinically and recommend further evaluation with direct visualization if indicated. Small pelvic free fluid. Tachycardia (Acute) - Cardiology consulted, Dr. Jeong; F/U Recs. - Increased Cardizem to 180mg PO TID - Will continue to monitor Stage 1 Gluteal Ulcer - Patient has been spraying hydrogen peroxide on it - Will consult Nursing Wound Care, - Turn Q2H - Consider Air Mattress Urinary Tract Infection -Urine culture growing proteus mirabilis, sensitivities reviewed -Was given Merrem 1 gm x 1 dose -ID on consult, Dr Little, help appreciated -Repeat UA was negative -Will monitor off antibiotics Intertrigo -Redness us Groin Area 2/2 to incontinence -Started Nystatin Powder BID Hypertension - Lisinopril 10mg PO daily - Cardizem 180mg PO TID Diabetes Mellitus - Accuchecks, Hypoglycemia protocol - HgA1c 9.3 (01/2018); repeat A1c 9.0 - Insulin sliding scale - medium - Continue home medications: Januvia 100 mg PO daily, Glipizide 10mg PO BID, Gabapentin 300mg PO HS - Novolog 10 u SC AC - Lantus 24 units HS - Endocrinology consult. Dr Cam. chu appreciated. Fibromyalgia - Home medication: Diazepam 5mg PO BID - Flexeril 5mg PO TID (Holding parameters- hold if sleeping/sedated, hypote nsion) - Percocet 5/325mg 2 tab Q6H prn for pain - Gabapentin 300mg PO HS Adrenal Insufficiency - On prednisone 10mg PO daily Hypothyroidism - Continue Synthroid 100mcg PO daily - TSH/Free T4: 9.5/0.30 Hypokalemia -repleted -continue to monitor and replete as needed History of DVT/PE - Continue Xarelto 20mg PO daily (Held for pending Surgery) - On Lovenox 90mg SC daily Gout - Continue Colchicine Depression - Consulted psychiatry, Dr. Dexter, kimberley appreciated. - Per psychiatry, Started zoloft 50mg po daily (consider tapering up to 100mg), trazodone 50mg po hs - Valium 5mg po bid prn Closed fracture of right proximal tibia - Repeat tibia/fibula x ray showed Radiographic manifestations of continued healing proximal right tibial fracture - Orthopedic surgery consulted, Dr. Hernandez; help appreciated - Per ortho: continue well padded knee immobilizer; non operative; recommends PT/OT, NWB, VTE proph, and to f/u with Dr. Hernandez 1-2 weeks upon d/c Prophylactic Measures - Protonix 40mg PO daily, Probiotics - Xarelto 20mg PO daily (Held) - Lovenox 90 Q12H - PT/OT - Palliative care consulted to discuss goals of care - Case management consulted for discharge planning to [facility] after Surgery. Disposition: For Surgery on 10/11/18. Plan discussed with Dr Nenita Kong DO PGY-2
--- NOTE | 2018-10-07 15:51 | CP.PCM.PN ---
Subjective - Date & Time of Evaluation Date of Evaluation: 10/07/18 Time of Evaluation: 10:00 - Subjective Subjective: no new complaints afebrile off antibiotics Objective - Vital Signs/Intake and Output Vital Signs (last 24 hours): Temp Pulse Resp BP Pulse Ox 98.0 F 123 H 20 123/72 94 L 10/07/18 07:15 10/07/18 10:00 10/07/18 07:15 10/07/18 10:32 10/07/18 07:15 Intake and Output: 10/07/18 10/07/18 06:59 18:59 Intake Total 1640 825 Output Total 1350 Balance 290 825 - Medications Medications: Current Medications Acetaminophen (Tylenol 325mg Tab) 650 mg PO Q4 PRN PRN Reason: Pain, Mild (1-3) Last Admin: 09/29/18 12:10 Dose: 650 mg Colchicine (Colocrys) 0.6 mg PO BID [facility] Last Admin: 10/07/18 10:33 Dose: 0.6 mg Cyclobenzaprine HCl (Flexeril) 5 mg PO TID [facility] Last Admin: 10/07/18 13:26 Dose: 5 mg Dextrose (Dextrose 50% Inj) 0 ml IV STAT PRN; Protocol PRN Reason: Hypoglycemia Protocol Dextrose (Glutose 15) 0 gm PO ONCE PRN; Protocol PRN Reason: Hypoglycemia Protocol Diazepam (Valium) 5 mg PO BID PRN PRN Reason: Anxiety Last Admin: 10/07/18 12:31 Dose: 5 mg Dicyclomine HCl (Bentyl) 20 mg PO TID [facility] Last Admin: 10/07/18 13:26 Dose: 20 mg Diltiazem HCl (Cardizem Cd) 180 mg PO TID [facility] Last Admin: 10/07/18 13:26 Dose: 180 mg Ergocalciferol (Drisdol 50,000 Intl Units Cap) 1 cap PO Q7D [facility] Last Admin: 10/04/18 21:59 Dose: 1 cap Ferrous Gluconate (Fergon) 324 mg PO TIDCC [facility] Last Admin: 10/07/18 12:31 Dose: 324 mg Fluticasone/Vilanterol (Breo Ellipta 100-25 Mcg Inh) 1 puff INH RQ24 [facility] Last Admin: 10/06/18 08:36 Dose: Not Given Furosemide (Lasix) 20 mg PO DAILY [facility] Last Admin: 10/07/18 10:32 Dose: 20 mg Gabapentin (Neurontin) 300 mg PO HS [facility] Last Admin: 10/06/18 21:33 Dose: 300 mg Glipizide (Glucotrol) 10 mg PO BID [facility] Last Admin: 10/07/18 10:32 Dose: 10 mg Glucagon (Glucagen Diagnostic Kit) 0 mg IM STAT PRN; Protocol PRN Reason: Hypoglycemia Protocol Metronidazole (Flagyl) 500 mg in 100 mls @ 100 mls/hr IVPB Q8H [facility]; Protocol Last Admin: 10/07/18 14:50 Dose: 100 mls/hr Insulin Aspart (Novolog) 0 unit SC ACHS [facility]; Protocol Last Admin: 10/07/18 12:56 Dose: 3 units Insulin Aspart (Novolog) 10 unit SC AC [facility] Last Admin: 10/07/18 12:55 Dose: 10 units Insulin Glargine (Lantus) 24 unit SC HS [facility] Last Admin: 10/06/18 21:33 Dose: 24 unit Lisinopril (Zestril) 10 mg PO DAILY [facility] Last Admin: 10/03/18 10:00 Dose: 10 mg Magnesium Oxide (Mag-Ox) 400 mg PO BID [facility] Last Admin: 10/07/18 10:32 Dose: 400 mg Nystatin (Nystop Topical Powder) 1 applic TOP BID [facility] Last Admin: 10/07/18 10:34 Dose: 1 applic Oxycodone/Acetaminophen (Percocet 5/325 Mg Tab) 2 tab PO Q6H PRN PRN Reason: Pain, severe (8-10) Stop: 10/08/18 16:20 Last Admin: 10/07/18 10:37 Dose: 2 tab Pantoprazole Sodium (Protonix Ec Tab) 40 mg PO DAILY [facility] Last Admin: 10/07/18 10:33 Dose: 40 mg Potassium Chloride (K-Dur 20 Meq Er Tab) 20 meq PO DAILY [facility] Last Admin: 10/07/18 10:32 Dose: 20 meq Prednisone (Prednisone Tab) 10 mg PO DAILY [facility] Last Admin: 10/07/18 10:33 Dose: 10 mg Rivaroxaban (Xarelto) 20 mg PO DAILY [facility] Last Admin: 10/03/18 10:00 Dose: 20 mg Saccharomyces Boulardii (Florastor) 250 mg PO Q12 [facility] Last Admin: 10/07/18 10:32 Dose: 250 mg Sertraline HCl (Zoloft) 50 mg PO DAILY [facility] Last Admin: 10/07/18 10:33 Dose: 50 mg Sitagliptin Phosphate (Januvia) 100 mg PO DAILY [facility] Last Admin: 10/07/18 10:33 Dose: 100 mg Trazodone HCl (Desyrel) 50 mg PO HS [facility] Last Admin: 10/06/18 21:33 Dose: 50 mg Trimethobenzamide HCl (Tigan) 200 mg IM Q8 PRN PRN Reason: Nausea/Vomiting Vitamin B Complex/Vit C/Folic Acid (Nephro-Lavinia) 1 tab PO DAILY [facility] Last Admin: 10/07/18 10:33 Dose: 1 tab - Labs Labs: 10/07/18 07:49 10/07/18 07:49 PT 10.4 SECONDS (9.7-12.2) 10/07/18 07:49 INR 1.0 10/07/18 07:49 APTT 25 SECONDS (21-34) 10/07/18 07:49 - Constitutional Appears: Non-toxic, Chronically Ill - Head Exam Head Exam: NORMOCEPHALIC - Eye Exam Eye Exam: absent: Scleral icterus - ENT Exam ENT Exam: Mucous Membranes Dry - Neck Exam Neck Exam: absent: Lymphadenopathy - Respiratory Exam Respiratory Exam: Decreased Breath Sounds, Clear to Ausculation Bilateral - Cardiovascular Exam Cardiovascular Exam: REGULAR RHYTHM, +S1, +S2 - GI/Abdominal Exam GI & Abdominal Exam: Distended, Soft. absent: Tenderness - Rectal Exam Rectal Exam: Deferred - Exam Exam: NORMAL INSPECTION - Extremities Exam Extremities Exam: absent: Pedal Edema - Back Exam Back Exam: absent: CVA tenderness (L), CVA tenderness (R) - Neurological Exam Neurological Exam: Alert, Awake, CN II-XII Intact - Psychiatric Exam Psychiatric exam: Depressed - Skin Skin Exam: Dry Assessment and Plan (1) Urinary tract infection due to extended-spectrum beta lactamase (ESBL) producing Escherichia coli Status: Acute (2) Pancreatic cancer Status: Acute (3) Abdominal pain Status: Acute - Assessment and Plan (Free Text) Assessment: for OR next Wednesday repeat cultures neg thus far cont rx as ordered cardio eval pre-op
[2018-10-07] MEDS: (Lantus) Insulin Glargine, Recombinant SC SCH (21:40)
[2018-10-08] MEDS: Levothyroxine 100 MCG TAB PO SCH (05:35)
[2018-10-08] MEDS: Sodium Chloride 0.9% 1,000 ML IV SCH ×2 (05:36→18:11)
[2018-10-08] MEDS: metroNIDAZOLE IV 500 mg/100 ml 500 MG/100 ML BAG IVPB SCH ×3 (06:44→23:51)
[2018-10-08 07:21] LABS: HEMOGLOBIN 9.3 g/dL (11.0-16.0); MEAN CELL VOLUME 76.9 fL (81.0-99.0); MEAN CORPUSCULAR HEMOGLOBIN 23.9 pg (27.0-31.0); MEAN CORPUSCULAR HGB CONC 31.1 g/dL (33.0-37.0); MEAN PLATELET VOLUME 9.1 fL (7.2-11.7); RBC 3.91 Mil/uL (3.80-5.20); RED CELL DISTRIBUTION WIDTH 21.7 % (11.5-14.5); WHITE BLOOD COUNT 9.6 K/uL (4.8-10.8)
[2018-10-08 07:28] LABS: INR 1.1; PROTHROMBIN TIME 11.5 SECONDS (9.7-12.2)
[2018-10-08 07:43] LABS: ALB/GLOB RATIO 1.4 (1.0-2.1); ALBUMIN 3.3 g/dL (3.5-5.0); ALT/SGPT 165 U/L (9-52); AST/SGOT 175 U/L (14-36); BLOOD UREA NITROGEN 27 mg/dL (7-17); CALCIUM 8.9 mg/dl (8.6-10.4); GFR NON-AFRICAN AMERICAN > 60
[2018-10-08] MEDS: (Novolog) Insulin Aspart, Recombinant 100 u/ml 10 ml vial SC SCH ×7 (08:32→21:53)
--- NOTE | 2018-10-08 09:04 | CP.PCM.PN ---
Subjective - Date & Time of Evaluation Date of Evaluation: 10/07/18 Time of Evaluation: 16:20 - Subjective Subjective: Patient seen and examined at bedside. No acute distress HR still fluctuating Objective - Additional Findings Additional findings: - Constitutional Appears: Non-toxic, Chronically Ill - Head Exam Head Exam: ATRAUMATIC, NORMAL INSPECTION, NORMOCEPHALIC - Eye Exam Eye Exam: EOMI, Normal appearance. absent: Scleral icterus - ENT Exam ENT Exam: Mucous Membranes Moist - Neck Exam Neck Exam: Normal Inspection - Respiratory Exam Respiratory Exam: Decreased Breath Sounds. absent: Wheezes, NORMAL BREATHING PATTERN, Accessory Muscle Use, - Cardiovascular Exam Cardiovascular Exam: Tachycardia, +S1, +S2. absent: RRR - GI/Abdominal Exam GI & Abdominal Exam: Soft, Normal Bowel Sounds. absent: Tenderness - Extremities Exam Extremities Exam: Normal Inspection. absent: Pedal Edema - Neurological Exam Neurological Exam: Alert, Awake - Psychiatric Exam Psychiatric exam: Normal Affect, Normal Mood - Skin Skin Exam: Dry, Intact, Normal Color, Warm Objective - Vital Signs/Intake and Output Vital Signs (last 24 hours): Temp Pulse Resp BP Pulse Ox 98.6 F 118 H 20 150/85 93 L 10/08/18 07:00 10/08/18 07:59 10/08/18 07:00 10/08/18 07:00 10/08/18 07:00 Intake and Output: 10/08/18 10/08/18 06:59 18:59 Intake Total 1150 Output Total 2100 Balance -950 - Medications Medications: Current Medications Acetaminophen (Tylenol 325mg Tab) 650 mg PO Q4 PRN PRN Reason: Pain, Mild (1-3) Last Admin: 09/29/18 12:10 Dose: 650 mg Colchicine (Colocrys) 0.6 mg PO BID [facility] Last Admin: 10/07/18 18:21 Dose: 0.6 mg Cyclobenzaprine HCl (Flexeril) 5 mg PO TID [facility] Last Admin: 10/07/18 18:22 Dose: 5 mg Dextrose (Dextrose 50% Inj) 0 ml IV STAT PRN; Protocol PRN Reason: Hypoglycemia Protocol Dextrose (Glutose 15) 0 gm PO ONCE PRN; Protocol PRN Reason: Hypoglycemia Protocol Diazepam (Valium) 5 mg PO BID PRN PRN Reason: Anxiety Last Admin: 10/07/18 12:31 Dose: 5 mg Dicyclomine HCl (Bentyl) 20 mg PO TID [facility] Last Admin: 10/07/18 18:22 Dose: 20 mg Diltiazem HCl (Cardizem Cd) 180 mg PO TID [facility] Last Admin: 10/07/18 18:22 Dose: 180 mg Ergocalciferol (Drisdol 50,000 Intl Units Cap) 1 cap PO Q7D [facility] Last Admin: 10/04/18 21:59 Dose: 1 cap Ferrous Gluconate (Fergon) 324 mg PO TIDCC [facility] Last Admin: 10/07/18 18:21 Dose: 324 mg Fluticasone/Vilanterol (Breo Ellipta 100-25 Mcg Inh) 1 puff INH RQ24 [facility] Last Admin: 10/06/18 08:36 Dose: Not Given Furosemide (Lasix) 20 mg PO DAILY [facility] Last Admin: 10/07/18 10:32 Dose: 20 mg Gabapentin (Neurontin) 300 mg PO HS [facility] Last Admin: 10/07/18 21:39 Dose: 300 mg Glipizide (Glucotrol) 10 mg PO BID [facility] Last Admin: 10/07/18 18:22 Dose: 10 mg Glucagon (Glucagen Diagnostic Kit) 0 mg IM STAT PRN; Protocol PRN Reason: Hypoglycemia Protocol Metronidazole (Flagyl) 500 mg in 100 mls @ 100 mls/hr IVPB Q8H [facility]; Protocol Last Admin: 10/08/18 06:44 Dose: 100 mls/hr Insulin Aspart (Novolog) 0 unit SC ACHS [facility]; Protocol Last Admin: 10/08/18 08:32 Dose: Not Given Insulin Aspart (Novolog) 10 unit SC AC [facility] Last Admin: 10/08/18 08:32 Dose: Not Given Insulin Glargine (Lantus) 24 unit SC HS [facility] Last Admin: 10/07/18 21:40 Dose: 24 unit Levothyroxine Sodium (Synthroid) 100 mcg PO DAILY@0630 [facility] Last Admin: 10/08/18 05:35 Dose: 100 mcg Lisinopril (Zestril) 10 mg PO DAILY [facility] Last Admin: 10/03/18 10:00 Dose: 10 mg Magnesium Oxide (Mag-Ox) 400 mg PO BID [facility] Last Admin: 10/07/18 18:21 Dose: 400 mg Nystatin (Nystop Topical Powder) 1 applic TOP BID [facility] Last Admin: 10/07/18 18:26 Dose: 1 applic Oxycodone/Acetaminophen (Percocet 5/325 Mg Tab) 2 tab PO Q6H PRN PRN Reason: Pain, severe (8-10) Stop: 10/08/18 16:20 Last Admin: 10/07/18 23:53 Dose: 2 tab Pantoprazole Sodium (Protonix Ec Tab) 40 mg PO DAILY [facility] Last Admin: 10/07/18 10:33 Dose: 40 mg Potassium Chloride (K-Dur 20 Meq Er Tab) 20 meq PO DAILY [facility] Last Admin: 10/07/18 10:32 Dose: 20 meq Prednisone (Prednisone Tab) 10 mg PO DAILY [facility] Last Admin: 10/07/18 10:33 Dose: 10 mg Rivaroxaban (Xarelto) 20 mg PO DAILY [facility] Last Admin: 10/03/18 10:00 Dose: 20 mg Saccharomyces Boulardii (Florastor) 250 mg PO Q12 [facility] Last Admin: 10/07/18 21:39 Dose: 250 mg Sertraline HCl (Zoloft) 50 mg PO DAILY [facility] Last Admin: 10/07/18 10:33 Dose: 50 mg Sitagliptin Phosphate (Januvia) 100 mg PO DAILY [facility] Last Admin: 10/07/18 10:33 Dose: 100 mg Trazodone HCl (Desyrel) 50 mg PO HS [facility] Last Admin: 10/07/18 21:39 Dose: 50 mg Trimethobenzamide HCl (Tigan) 200 mg IM Q8 PRN PRN Reason: Nausea/Vomiting Vitamin B Complex/Vit C/Folic Acid (Nephro-Lavinia) 1 tab PO DAILY [facility] Last Admin: 10/07/18 10:33 Dose: 1 tab - Labs Labs: 10/08/18 07:10 10/08/18 07:10 PT 11.5 SECONDS (9.7-12.2) 10/08/18 07:10 INR 1.1 10/08/18 07:10 APTT 25 SECONDS (21-34) 10/08/18 07:10 Assessment and Plan - Assessment and Plan (Free Text) Assessment: Assessment and Plan - Assessment and Plan (Free Text) Assessment: 63 year old female with PMHx of COPD, Pancreatic Mass, Chronic Diastolic CHF, Hypertension, DM II, Fibromyalgia, Adrenal Insufficiency, Hypothyroidism, Hx of DVT, Gout, Depression, and Current Closed Fracture of Right proximal tibia admitted for evaluation and treatment of COPD exacerbation. Hospital Course Complicated with episodes of hypotension. Plan: COPD Exacerbation - Continue home medication: Breo - Duonebs Q4h prn Acute Kidney Injury (Resolved) - Continue fluids at 75mls/hr - Decreased Lasix 20mg PO - Held Lisinopril - Monitor Hypotension (resolved) - Continue to monitor C. Diff During Previous Admission - Completed course of Vancomycin - Repeat Cdiff negative Pancreatic Mass - Patient for possible surgery on or next Wednesday - Surgery consulted, Dr. Bright; help appreciated - CEA: 42.5, CA19-9: 1980, CA125: 36.2 - Abdomen/Pelvic CT: Heterogeneous hyperdense pancreatic mass measuring approximately 2.7 x 2.5 cm at the pancreatic body/tail. Ectatic dilated pancreatic duct. Additional cystic heterogeneous focus measuring approximately 15 x 14 mm is noted at the superior aspect of the pancreas. Appearance worrisome for malignant neoplasm. Wall thickening involving the 2nd portion of the duodenum of uncertain significance; considerations include infectious, inflammatory, or malignant etiologies. Correlate clinically and recommend furth er evaluation with direct visualization if indicated. Small pelvic free fluid. Tachycardia (Acute) - Increased Cardizem to 180mg PO TID - Will continue to monitor Stage 1 Gluteal Ulcer - Patient has been spraying hydrogen peroxide on it - Will consult Nursing Wound Care, - Turn Q2H - Consider Air Mattress Urinary Tract Infection -Urine culture growing proteus mirabilis, sensitivities reviewed -Was given Merrem 1 gm x 1 dose -ID on consult, Dr Little, help appreciated -Repeat UA was negative -Will monitor off antibiotics Intertrigo -Redness us Groin Area 2/2 to incontinence -Started Nystatin Powder BID Hypertension - Lisinopril 10mg PO daily - Cardizem 180mg PO TID Diabetes Mellitus - Accuchecks, Hypoglycemia protocol - HgA1c 9.3 (01/2018); repeat A1c 9.0 - Insulin sliding scale - medium - Continue home medications: Januvia 100 mg PO daily, Glipizide 10mg PO BID, Gabapentin 300mg PO HS - Novolog 10 u SC AC - Lantus 24 units HS - Endocrinology consult. Dr Cam. chu appreciated. Fibromyalgia - Home medication: Diazepam 5mg PO BID - Flexeril 5mg PO TID (Holding parameters- hold if sleeping/sedated, hypotension) - Percocet 5/325mg 2 tab Q6H prn for pain - Gabapentin 300mg PO HS Adrenal Insufficiency - On prednisone 10mg PO daily Hypothyroidism - Continue Synthroid 100mcg PO daily - TSH/Free T4: 9.5/0.30 Hypokalemia -repleted -continue to monitor and replete as needed History of DVT/PE - Continue Xarelto 20mg PO daily (Held for pending Surgery) - On Lovenox 90mg SC daily Gout - Continue Colchicine Depression - Consulted psychiatry, Dr. Dexter, recs appreciated. - Per psychiatry, Started zoloft 50mg po daily (consider tapering up to 100mg), trazodone 50mg po hs - Valium 5mg po bid prn Closed fracture of right proximal tibia - Repeat tibia/fibula x ray showed Radiographic manifestations of continued hea ling proximal right tibial fracture - Orthopedic surgery consulted, Dr. Hernandez; help appreciated - Per ortho: continue well padded knee immobilizer; non operative; recommends PT/OT, NWB, VTE proph, and to f/u with Dr. Hernandez 1-2 weeks upon d/c Prophylactic Measures - Protonix 40mg PO daily, Probiotics - Xarelto 20mg PO daily (Held) - Lovenox 90 Q12H (Renally Dosed at Q24) - PT/OT - Palliative care consulted to discuss goals of care - Case management consulted for discharge planning to [facility] Disposition: For Surgery next week. Will monitor renal function. Pre-Operative Cardiac Risk assessment: 63 F with multiple comorbidies being assessed for Wipple's surgery Stress test: Negative ECHO: Normal EF and No Major valvular issues Leg dopppler: Negative for DVT Resting Tachycardia and hypotension etiology unclear This patient assessed as high risk for Cardiac events for a major surgery like Wipple's at this point However if benefit outweighs the risk can proceed with the surgery after d/w the patient and the family We will optimize cardiac status as much as we can Patient wants to get the surgery done inspite of her high risk I will transfer the care back to Dr. Pineda who is the Primary head porter baggage on the case Thank you
[2018-10-08] MEDS: diltiaZEM 180 mg/24 Hours CD Cap PO SCH ×3 (09:24→18:10)
[2018-10-08] MEDS: Pantoprazole 40 mg EC Tab PO SCH (09:25)
[2018-10-08] MEDS: Saccharomyces Boulardi 250 mg Cap PO SCH ×2 (09:25→21:52)
[2018-10-08] MEDS: Potassium Chloride 20 mEq ER Tab PO SCH (09:25)
[2018-10-08] MEDS: Magnesium Oxide 400 mg Tab UD PO SCH ×2 (09:25→18:10)
[2018-10-08] MEDS: Multivitamin Vitamin B Complex (Nephro-Vite) Tab PO SCH (09:25)
[2018-10-08] MEDS: Oxycodone/Acetaminophen 5/325 mg Tab PO PRN (11:09)
[2018-10-08 11:34] LABS: EOS # 0.2 K/uL (0.0-0.7); LYMPH # 2.2 K/uL (1.0-4.3); MONO # 0.7 K/uL (0.0-0.8); NEUT # 6.5 K/uL (1.8-7.0)
[2018-10-08] MEDS: Fluticasone-Vilanterol 100/25mcg Diskus INH SCH (13:00)
[2018-10-08] MEDS: (Lantus) Insulin Glargine, Recombinant SC SCH (21:56)
[2018-10-09] MEDS: Levothyroxine 100 MCG TAB PO SCH (06:42)
[2018-10-09] MEDS: Sodium Chloride 0.9% 1,000 ML IV SCH (06:43)
[2018-10-09] MEDS: metroNIDAZOLE IV 500 mg/100 ml 500 MG/100 ML BAG IVPB SCH ×2 (06:46→16:00)
[2018-10-09] MEDS: (Novolog) Insulin Aspart, Recombinant 100 u/ml 10 ml vial SC SCH ×7 (07:19→21:34)
[2018-10-09 07:55] LABS: HEMOGLOBIN 9.9 g/dL (11.0-16.0); MEAN CELL VOLUME 76.2 fL (81.0-99.0); MEAN CORPUSCULAR HEMOGLOBIN 23.1 pg (27.0-31.0); MEAN CORPUSCULAR HGB CONC 30.3 g/dL (33.0-37.0); RBC 4.3 Mil/uL (3.80-5.20); RED CELL DISTRIBUTION WIDTH 21.5 % (11.5-14.5); WHITE BLOOD COUNT 9.1 K/uL (4.8-10.8)
[2018-10-09 08:04] LABS: ALB/GLOB RATIO 1.4 (1.0-2.1); ALBUMIN 3.3 g/dL (3.5-5.0); ALT/SGPT 162 U/L (9-52); AST/SGOT 124 U/L (14-36); BLOOD UREA NITROGEN 28 mg/dL (7-17); CALCIUM 9.1 mg/dl (8.6-10.4); GFR NON-AFRICAN AMERICAN > 60
[2018-10-09] MEDS ORDERED: Oxycodone/Acetaminophen 5/325 mg Tab PO PRN (08:43)
[2018-10-09 09:14] LABS: LYMPH # 1.8 K/uL (1.0-4.3); MONO # 0.3 K/uL (0.0-0.8)
[2018-10-09] MEDS: Multivitamin Vitamin B Complex (Nephro-Vite) Tab PO SCH (10:04)
[2018-10-09] MEDS: Magnesium Oxide 400 mg Tab UD PO SCH ×2 (10:04→17:55)
[2018-10-09] MEDS: Potassium Chloride 20 mEq ER Tab PO SCH (10:04)
[2018-10-09] MEDS: diltiaZEM 180 mg/24 Hours CD Cap PO SCH ×3 (10:04→17:55)
[2018-10-09] MEDS: Pantoprazole 40 mg EC Tab PO SCH (10:04)
[2018-10-09] MEDS: Saccharomyces Boulardi 250 mg Cap PO SCH ×2 (10:04→21:25)
[2018-10-09] MEDS: Fluticasone-Vilanterol 100/25mcg Diskus INH SCH (10:07)
--- NOTE | 2018-10-09 15:37 | CP.PCM.PN ---
<Rc Cyr - Last Filed: 10/09/18 15:35> Subjective - Date & Time of Evaluation Date of Evaluation: 10/09/18 Time of Evaluation: 07:15 - Subjective Subjective: HBS- Dr. Valle Patient seen and examined. No new complaints. Plan for OR Wednesday. Objective - Vital Signs/Intake and Output Vital Signs (last 24 hours): Temp Pulse Resp BP Pulse Ox 97.7 F 112 H 20 128/77 96 10/09/18 08:13 10/09/18 15:03 10/09/18 08:13 10/09/18 10:05 10/09/18 08:13 Intake and Output: 10/09/18 10/09/18 06:59 18:59 Intake Total 560 Output Total 800 1000 Balance -240 -1000 - Medications Medications: Current Medications Acetaminophen (Tylenol 325mg Tab) 650 mg PO Q4 PRN PRN Reason: Pain, Mild (1-3) Last Admin: 09/29/18 12:10 Dose: 650 mg Colchicine (Colocrys) 0.6 mg PO BID [facility] Last Admin: 10/09/18 10:05 Dose: 0.6 mg Cyclobenzaprine HCl (Flexeril) 5 mg PO TID [facility] Last Admin: 10/09/18 13:28 Dose: 5 mg Dextrose (Dextrose 50% Inj) 0 ml IV STAT PRN; Protocol PRN Reason: Hypoglycemia Protocol Dextrose (Glutose 15) 0 gm PO ONCE PRN; Protocol PRN Reason: Hypoglycemia Protocol Diazepam (Valium) 5 mg PO BID PRN PRN Reason: Anxiety Last Admin: 10/09/18 10:05 Dose: 5 mg Dicyclomine HCl (Bentyl) 20 mg PO TID [facility] Last Admin: 10/09/18 13:29 Dose: 20 mg Diltiazem HCl (Cardizem Cd) 180 mg PO TID [facility] Last Admin: 10/09/18 13:29 Dose: 180 mg Ergocalciferol (Drisdol 50,000 Intl Units Cap) 1 cap PO Q7D [facility] Last Admin: 10/04/18 21:59 Dose: 1 cap Ferrous Gluconate (Fergon) 324 mg PO TIDCC [facility] Last Admin: 10/09/18 11:27 Dose: 324 mg Fluticasone/Vilanterol (Breo Ellipta 100-25 Mcg Inh) 1 puff INH RQ24 [facility] Last Admin: 10/09/18 10:07 Dose: Not Given Furosemide (Lasix) 20 mg PO DAILY [facility] Last Admin: 10/09/18 10:05 Dose: 20 mg Gabapentin (Neurontin) 300 mg PO HS [facility] Last Admin: 10/08/18 21:53 Dose: 300 mg Glipizide (Glucotrol) 10 mg PO BID [facility] Last Admin: 10/09/18 10:03 Dose: 10 mg Glucagon (Glucagen Diagnostic Kit) 0 mg IM STAT PRN; Protocol PRN Reason: Hypoglycemia Protocol Metronidazole (Flagyl) 500 mg in 100 mls @ 100 mls/hr IVPB Q8H [facility]; Protocol Last Admin: 10/09/18 06:46 Dose: 100 mls/hr Insulin Aspart (Novolog) 0 unit SC ACHS [facility]; Protocol Last Admin: 10/09/18 13:29 Dose: 2 units Insulin Aspart (Novolog) 10 unit SC AC [facility] Last Admin: 10/09/18 13:29 Dose: 10 units Insulin Glargine (Lantus) 24 unit SC HS [facility] Last Admin: 10/08/18 21:56 Dose: 24 unit Levothyroxine Sodium (Synthroid) 100 mcg PO DAILY@0630 [facility] Last Admin: 10/09/18 06:42 Dose: 100 mcg Lisinopril (Zestril) 10 mg PO DAILY [facility] Last Admin: 10/03/18 10:00 Dose: 10 mg Magnesium Oxide (Mag-Ox) 400 mg PO BID [facility] Last Admin: 10/09/18 10:04 Dose: 400 mg Nystatin (Nystop Topical Powder) 1 applic TOP BID [facility] Last Admin: 10/09/18 10:09 Dose: 1 applic Oxycodone/Acetaminophen (Percocet 5/325 Mg Tab) 1 tab PO Q6H PRN PRN Reason: Pain, moderate (4-7) Stop: 10/12/18 08:44 Last Admin: 10/09/18 11:26 Dose: 1 tab Pantoprazole Sodium (Protonix Ec Tab) 40 mg PO DAILY [facility] Last Admin: 10/09/18 10:04 Dose: 40 mg Potassium Chloride (K-Dur 20 Meq Er Tab) 20 meq PO DAILY [facility] Last Admin: 10/09/18 10:04 Dose: 20 meq Prednisone (Prednisone Tab) 10 mg PO DAILY [facility] Last Admin: 10/09/18 10:04 Dose: 10 mg Rivaroxaban (Xarelto) 20 mg PO DAILY [facility] Last Admin: 10/03/18 10:00 Dose: 20 mg Saccharomyces Boulardii (Florastor) 250 mg PO Q12 [facility] Last Admin: 10/09/18 10:04 Dose: 250 mg Sertraline HCl (Zoloft) 50 mg PO DAILY [facility] Last Admin: 10/09/18 10:05 Dose: 50 mg Sitagliptin Phosphate (Januvia) 100 mg PO DAILY [facility] Last Admin: 10/09/18 10:04 Dose: 100 mg Trazodone HCl (Desyrel) 50 mg PO HS [facility] Last Admin: 10/08/18 21:52 Dose: 50 mg Trimethobenzamide HCl (Tigan) 200 mg IM Q8 PRN PRN Reason: Nausea/Vomiting Vitamin B Complex/Vit C/Folic Acid (Nephro-Lavinia) 1 tab PO DAILY [facility] Last Admin: 10/09/18 10:04 Dose: 1 tab - Labs Labs: 10/09/18 07:34 10/09/18 07:34 PT 11.0 SECONDS (9.7-12.2) 10/09/18 07:34 INR 1.0 10/09/18 07:34 APTT 26 SECONDS (21-34) 10/09/18 07:34 - Constitutional Appears: Non-toxic, No Acute Distress - Head Exam Head Exam: ATRAUMATIC - Eye Exam Eye Exam: EOMI. absent: Scleral icterus - ENT Exam ENT Exam: Mucous Membranes Moist - Respiratory Exam Respiratory Exam: absent: Accessory Muscle Use, Respiratory Distress - Cardiovascular Exam Cardiovascular Exam: REGULAR RHYTHM. absent: Bradycardia, Tachycardia - GI/Abdominal Exam GI & Abdominal Exam: Soft, Tenderness. absent: Distended, Firm, Guarding, Rigid - Neurological Exam Neurological Exam: Alert, Awake, Oriented x3 - Psychiatric Exam Psychiatric exam: Normal Affect - Skin Skin Exam: Intact, Warm Assessment and Plan - Assessment and Plan (Free Text) Assessment: 63F w/ pancreatic mass Plan: - OR wednesday for Distal Pancreatectomy - appropriately pre-op - pain control PRN - discussed w/ Dr. Valle <Adam Ross N - Last Filed: 10/10/18 17:07> Objective - Vital Signs/Intake and Output Vital Signs (last 24 hours): Temp Pulse Resp BP Pulse Ox 97.4 F L 124 H 20 134/84 95 10/10/18 15:00 10/10/18 16:23 10/10/18 15:00 10/10/18 15:00 10/10/18 15:00 Intake and Output: 10/10/18 10/10/18 06:59 18:59 Output Total 400 Balance -400 - Medications Medications: Current Medications Acetaminophen (Tylenol 325mg Tab) 650 mg PO Q4 PRN PRN Reason: Pain, Mild (1-3) Last Admin: 09/29/18 12:10 Dose: 650 mg Colchicine (Colocrys) 0.6 mg PO BID [facility] Last Admin: 10/10/18 10:00 Dose: 0.6 mg Cyclobenzaprine HCl (Flexeril) 5 mg PO TID [facility] Last Admin: 10/10/18 13:14 Dose: 5 mg Dextrose (Dextrose 50% Inj) 0 ml IV STAT PRN; Protocol PRN Reason: Hypoglycemia Protocol Dextrose (Glutose 15) 0 gm PO ONCE PRN; Protocol PRN Reason: Hypoglycemia Protocol Diazepam (Valium) 5 mg PO BID PRN PRN Reason: Anxiety Last Admin: 10/10/18 10:02 Dose: 5 mg Dicyclomine HCl (Bentyl) 20 mg PO TID [facility] Last Admin: 10/10/18 13:14 Dose: 20 mg Diltiazem HCl (Cardizem Cd) 180 mg PO TID [facility] Last Admin: 10/10/18 13:13 Dose: 180 mg Ergocalciferol (Drisdol 50,000 Intl Units Cap) 1 cap PO Q7D [facility] Last Admin: 10/04/18 21:59 Dose: 1 cap Ferrous Gluconate (Fergon) 324 mg PO TIDCC [facility] Last Admin: 10/10/18 12:13 Dose: 324 mg Fluticasone/Vilanterol (Breo Ellipta 100-25 Mcg Inh) 1 puff INH RQ24 [facility] Last Admin: 10/10/18 08:06 Dose: Not Given Furosemide (Lasix) 20 mg PO DAILY [facility] Last Admin: 10/10/18 10:01 Dose: 20 mg Gabapentin (Neurontin) 300 mg PO HS [facility] Last Admin: 10/09/18 21:24 Dose: 300 mg Glipizide (Glucotrol) 10 mg PO BID [facility] Last Admin: 10/10/18 10:00 Dose: 10 mg Glucagon (Glucagen Diagnostic Kit) 0 mg IM STAT PRN; Protocol PRN Reason: Hypoglycemia Protocol Metronidazole (Flagyl) 500 mg in 100 mls @ 100 mls/hr IVPB Q8H [facility]; Protocol Last Admin: 10/10/18 15:02 Dose: 100 mls/hr Lactated Ringer's (Lactated Ringer's) 1,000 mls @ 100 mls/hr IV .Q10H [facility] Insulin Aspart (Novolog) 0 unit SC ACHS [facility]; Protocol Last Admin: 10/10/18 12:13 Dose: 2 units Insulin Aspart (Novolog) 10 unit SC AC [facility] Last Admin: 10/10/18 12:13 Dose: 10 units Insulin Glargine (Lantus) 24 unit SC HS [facility] Last Admin: 10/09/18 21:23 Dose: 24 unit Levothyroxine Sodium (Synthroid) 100 mcg PO DAILY@0630 [facility] Last Admin: 10/10/18 06:47 Dose: 100 mcg Lisinopril (Zestril) 10 mg PO DAILY [facility] Last Admin: 10/03/18 10:00 Dose: 10 mg Magnesium Oxide (Mag-Ox) 400 mg PO BID [facility] Last Admin: 10/10/18 09:59 Dose: 400 mg Nystatin (Nystop Topical Powder) 1 applic TOP BID [facility] Last Admin: 10/10/18 10:06 Dose: 1 applic Oxycodone/Acetaminophen (Percocet 5/325 Mg Tab) 2 tab PO Q6H PRN PRN Reason: Pain, severe (8-10) Stop: 10/12/18 19:15 Last Admin: 10/10/18 10:55 Dose: 2 tab Pantoprazole Sodium (Protonix Ec Tab) 40 mg PO DAILY [facility] Last Admin: 10/10/18 09:59 Dose: 40 mg Potassium Chloride (K-Dur 20 Meq Er Tab) 20 meq PO DAILY [facility] Last Admin: 10/10/18 10:00 Dose: 20 meq Prednisone (Prednisone Tab) 10 mg PO DAILY [facility] Last Admin: 10/10/18 10:00 Dose: 10 mg Rivaroxaban (Xarelto) 20 mg PO DAILY [facility] Last Admin: 10/03/18 10:00 Dose: 20 mg Saccharomyces Boulardii (Florastor) 250 mg PO Q12 [facility] Last Admin: 10/10/18 09:59 Dose: 250 mg Sertraline HCl (Zoloft) 50 mg PO DAILY [facility] Last Admin: 10/10/18 10:01 Dose: 50 mg Sitagliptin Phosphate (Januvia) 100 mg PO DAILY [facility] Last Admin: 10/10/18 10:00 Dose: 100 mg Trazodone HCl (Desyrel) 50 mg PO HS [facility] Last Admin: 10/09/18 21:25 Dose: 50 mg Trimethobenzamide HCl (Tigan) 200 mg IM Q8 PRN PRN Reason: Nausea/Vomiting Vitamin B Complex/Vit C/Folic Acid (Nephro-Lavinia) 1 tab PO DAILY [facility] Last Admin: 10/10/18 10:00 Dose: 1 tab - Labs Labs: 10/10/18 07:28 10/10/18 07:28 PT 11.0 SECONDS (9.7-12.2) 10/10/18 07:28 INR 1.0 10/10/18 07:28 APTT 25 SECONDS (21-34) 10/10/18 07:28 Assessment and Plan - Assessment and Plan (Free Text) Plan: All medical record entries made by the resident were at my direction. I have reviewed the chart and agree that the record accurately reflects my personal performance of the history, physical exam, and medical decision making.
[2018-10-09] MEDS: Oxycodone/Acetaminophen 5/325 mg Tab PO PRN (20:48)
[2018-10-09] MEDS: (Lantus) Insulin Glargine, Recombinant SC SCH (21:23)
[2018-10-10] MEDS: metroNIDAZOLE IV 500 mg/100 ml 500 MG/100 ML BAG IVPB SCH ×4 (00:03→23:47)
[2018-10-10] MEDS: Levothyroxine 100 MCG TAB PO SCH (06:47)
[2018-10-10 07:38] LABS: BASO # 0.1 K/uL (0.0-0.2); BASO % 1.3 % (0.0-2.0); EOS # 0.1 K/uL (0.0-0.7); HEMOGLOBIN 9.7 g/dL (11.0-16.0); LYMPH # 2.5 K/uL (1.0-4.3); LYMPH % 25.6 % (20.0-40.0); MEAN CELL VOLUME 76.9 fL (81.0-99.0); MEAN CORPUSCULAR HEMOGLOBIN 23.5 pg (27.0-31.0); MEAN CORPUSCULAR HGB CONC 30.6 g/dL (33.0-37.0); MEAN PLATELET VOLUME 9.2 fL (7.2-11.7); MONO # 0.9 K/uL (0.0-0.8); MONO % 9.1 % (0.0-10.0); NEUT # 6.3 K/uL (1.8-7.0); NRBC % 0.2 % (0.0-2.0); RBC 4.13 Mil/uL (3.80-5.20); RED CELL DISTRIBUTION WIDTH 21.8 % (11.5-14.5)
[2018-10-10 07:56] LABS: ALB/GLOB RATIO 1.3 (1.0-2.1); ALBUMIN 3.3 g/dL (3.5-5.0); ALT/SGPT 162 U/L (9-52); AST/SGOT 83 U/L (14-36); BLOOD UREA NITROGEN 27 mg/dL (7-17); CALCIUM 8.9 mg/dl (8.6-10.4); GFR NON-AFRICAN AMERICAN > 60
[2018-10-10] MEDS: Fluticasone-Vilanterol 100/25mcg Diskus INH SCH (08:06)
[2018-10-10] MEDS: (Novolog) Insulin Aspart, Recombinant 100 u/ml 10 ml vial SC SCH ×7 (08:17→21:51)
--- NOTE | 2018-10-10 08:54 | CP.PCM.PN ---
Subjective - Date & Time of Evaluation Date of Evaluation: 10/10/18 Time of Evaluation: 09:00 - Subjective Subjective: Medicine Progress Note for Dr. Gutierres: Patient was seen and examined at bedside in the AM. Patient states she has pain all over her body due to her fibromylagia. Objective - Vital Signs/Intake and Output Vital Signs (last 24 hours): Temp Pulse Resp BP Pulse Ox 98.0 F 115 H 18 139/74 96 10/10/18 07:00 10/10/18 07:50 10/10/18 07:00 10/10/18 07:00 10/10/18 07:00 Intake and Output: 10/10/18 10/10/18 06:59 18:59 Output Total 400 Balance -400 - Medications Medications: Current Medications Acetaminophen (Tylenol 325mg Tab) 650 mg PO Q4 PRN PRN Reason: Pain, Mild (1-3) Last Admin: 09/29/18 12:10 Dose: 650 mg Colchicine (Colocrys) 0.6 mg PO BID [facility] Last Admin: 10/09/18 18:03 Dose: 0.6 mg Cyclobenzaprine HCl (Flexeril) 5 mg PO TID [facility] Last Admin: 10/09/18 17:55 Dose: 5 mg Dextrose (Dextrose 50% Inj) 0 ml IV STAT PRN; Protocol PRN Reason: Hypoglycemia Protocol Dextrose (Glutose 15) 0 gm PO ONCE PRN; Protocol PRN Reason: Hypoglycemia Protocol Diazepam (Valium) 5 mg PO BID PRN PRN Reason: Anxiety Last Admin: 10/09/18 10:05 Dose: 5 mg Dicyclomine HCl (Bentyl) 20 mg PO TID [facility] Last Admin: 10/09/18 17:55 Dose: 20 mg Diltiazem HCl (Cardizem Cd) 180 mg PO TID [facility] Last Admin: 10/09/18 17:55 Dose: 180 mg Ergocalciferol (Drisdol 50,000 Intl Units Cap) 1 cap PO Q7D [facility] Last Admin: 10/04/18 21:59 Dose: 1 cap Ferrous Gluconate (Fergon) 324 mg PO TIDCC [facility] Last Admin: 10/10/18 08:45 Dose: 324 mg Fluticasone/Vilanterol (Breo Ellipta 100-25 Mcg Inh) 1 puff INH RQ24 [facility] Last Admin: 10/10/18 08:06 Dose: Not Given Furosemide (Lasix) 20 mg PO DAILY [facility] Last Admin: 10/09/18 10:05 Dose: 20 mg Gabapentin (Neurontin) 300 mg PO HS [facility] Last Admin: 10/09/18 21:24 Dose: 300 mg Glipizide (Glucotrol) 10 mg PO BID [facility] Last Admin: 10/09/18 17:55 Dose: 10 mg Glucagon (Glucagen Diagnostic Kit) 0 mg IM STAT PRN; Protocol PRN Reason: Hypoglycemia Protocol Metronidazole (Flagyl) 500 mg in 100 mls @ 100 mls/hr IVPB Q8H [facility]; Protocol Last Admin: 10/10/18 06:47 Dose: 100 mls/hr Insulin Aspart (Novolog) 0 unit SC ACHS [facility]; Protocol Last Admin: 10/10/18 08:17 Dose: Not Given Insulin Aspart (Novolog) 10 unit SC AC [facility] Last Admin: 10/10/18 08:27 Dose: 10 units Insulin Glargine (Lantus) 24 unit SC HS [facility] Last Admin: 10/09/18 21:23 Dose: 24 unit Levothyroxine Sodium (Synthroid) 100 mcg PO DAILY@0630 [facility] Last Admin: 10/10/18 06:47 Dose: 100 mcg Lisinopril (Zestril) 10 mg PO DAILY [facility] Last Admin: 10/03/18 10:00 Dose: 10 mg Magnesium Oxide (Mag-Ox) 400 mg PO BID [facility] Last Admin: 10/09/18 17:55 Dose: 400 mg Nystatin (Nystop Topical Powder) 1 applic TOP BID [facility] Last Admin: 10/09/18 17:58 Dose: 1 applic Oxycodone/Acetaminophen (Percocet 5/325 Mg Tab) 2 tab PO Q6H PRN PRN Reason: Pain, severe (8-10) Stop: 10/12/18 19:15 Last Admin: 10/09/18 20:48 Dose: 2 tab Pantoprazole Sodium (Protonix Ec Tab) 40 mg PO DAILY [facility] Last Admin: 10/09/18 10:04 Dose: 40 mg Potassium Chloride (K-Dur 20 Meq Er Tab) 20 meq PO DAILY [facility] Last Admin: 10/09/18 10:04 Dose: 20 meq Prednisone (Prednisone Tab) 10 mg PO DAILY [facility] Last Admin: 10/09/18 10:04 Dose: 10 mg Rivaroxaban (Xarelto) 20 mg PO DAILY [facility] Last Admin: 10/03/18 10:00 Dose: 20 mg Saccharomyces Boulardii (Florastor) 250 mg PO Q12 [facility] Last Admin: 10/09/18 21:25 Dose: 250 mg Sertraline HCl (Zoloft) 50 mg PO DAILY [facility] Last Admin: 10/09/18 10:05 Dose: 50 mg Sitagliptin Phosphate (Januvia) 100 mg PO DAILY [facility] Last Admin: 10/09/18 10:04 Dose: 100 mg Trazodone HCl (Desyrel) 50 mg PO HS [facility] Last Admin: 10/09/18 21:25 Dose: 50 mg Trimethobenzamide HCl (Tigan) 200 mg IM Q8 PRN PRN Reason: Nausea/Vomiting Vitamin B Complex/Vit C/Folic Acid (Nephro-Lavinia) 1 tab PO DAILY [facility] Last Admin: 10/09/18 10:04 Dose: 1 tab - Labs Labs: 10/10/18 07:28 10/10/18 07:28 PT 11.0 SECONDS (9.7-12.2) 10/10/18 07:28 INR 1.0 10/10/18 07:28 APTT 25 SECONDS (21-34) 10/10/18 07:28 - Constitutional Appears: No Acute Distress, Chronically Ill - Head Exam Head Exam: ATRAUMATIC, NORMAL INSPECTION - Eye Exam Eye Exam: EOMI, Normal appearance - ENT Exam ENT Exam: Mucous Membranes Moist - Respiratory Exam Respiratory Exam: NORMAL BREATHING PATTERN - Cardiovascular Exam Cardiovascular Exam: Tachycardia, REGULAR RHYTHM, +S1, +S2 - GI/Abdominal Exam GI & Abdominal Exam: Soft, Normal Bowel Sounds Additional comments: obese abdomen - Exam Additional comments: external catheter - Extremities Exam Extremities Exam: absent: Pedal Edema - Neurological Exam Neurological Exam: Alert, Awake, Oriented x3 - Psychiatric Exam Psychiatric exam: Normal Affect Assessment and Plan - Assessment and Plan (Free Text) Assessment: 63 year old female with PMHx of COPD, Pancreatic Mass, Chronic Diastolic CHF, Hypertension, DM II, Fibromyalgia, Adrenal Insufficiency, Hypothyroidism, Hx of DVT, Gout, Depression, and Current Closed Fracture of Right proximal tibia admitted for evaluation and treatment of COPD exacerbation. Hospital Course Complicated with episodes of hypotension. Plan: Pancreatic Mass - Surgical Intervention planned for Wednesday10/11/18. - Surgery consulted, Dr. Bright; help appreciated - Diagnostic laparoscopy possible Distal Pancreatectomy scheduled for 10/11/18 - CEA: 42.5, CA19-9: 1980, CA125: 36.2 - Abdomen/Pelvic CT: Heterogeneous hyperdense pancreatic mass measuring approximately 2.7 x 2.5 cm at the pancreatic body/tail. Ectatic dilated pancreatic duct. Additional cystic heterogeneous focus measuring approximately 15 x 14 mm is noted at the superior aspect of the pancreas. Appearance worrisome for malignant neoplasm. Wall thickening involving the 2nd portion of the duodenum of uncertain significance; considerations include infectious, inflammatory, or malignant etiologies. Correlate clinically and recommend further evaluation with direct visualization if indicated. Small pelvic free fluid. COPD Exacerbation - Continue home medication: Breo - Duonebs Q4h prn Acute Kidney Injury (Resolved) - Continue fluids at 75mls/hr - Decreased Lasix 20mg PO - Held Lisinopril - Monitor Hypotension (resolved) - Continue to monitor C. Diff During Previous Admission - Completed course of Vancomycin - Repeat Cdiff negative Tachycardia (Acute) - Cardiology consulted, Dr. Jeong; F/U Recs. - Increased Cardizem to 180mg PO TID - Will continue to monitor Stage 1 Gluteal Ulcer - Patient has been spraying hydrogen peroxide on it - Will consult Nursing Wound Care, - Turn Q2H - Consider Air Mattress Urinary Tract Infection -Urine culture growing proteus mirabilis, sensitivities reviewed -Was given Merrem 1 gm x 1 dose -ID on consult, Dr Little, help appreciated -Repeat UA was negative -Will monitor off antibiotics Intertrigo -Redness us Groin Area 2/2 to incontinence -Started Nystatin Powder BID Hypertension - Lisinopril 10mg PO daily - Cardizem 180mg PO TID Diabetes Mellitus - Accuchecks, Hypoglycemia protocol - HgA1c 9.3 (01/2018); repeat A1c 9.0 - Insulin sliding scale - medium - Continue home medications: Januvia 100 mg PO daily, Glipizide 10mg PO BID, Gabapentin 300mg PO HS - Novolog 10 u SC AC - Lantus 24 units HS - Endocrinology consult. Dr Dickson. recs appreciated. Fibromyalgia - Home medication: Diazepam 5mg PO BID - Flexeril 5mg PO TID (Holding parameters- hold if sleeping/sedated, hypotension) - Percocet 5/325mg 2 tab Q6H prn for pain - Gabapentin 300mg PO HS Adrenal Insufficiency - On prednisone 10mg PO daily Hypothyroidism - Continue Synthroid 100mcg PO daily - TSH/Free T4: 9.5/0.30 Hypokalemia -repleted -continue to monitor and replete as needed History of DVT/PE - Continue Xarelto 20mg PO daily (Held for pending Surgery) Gout - Continue Colchicine Depression - Consulted psychiatry, Dr. Dexter, recs appreciated. - Per psychiatry, Started zoloft 50mg po daily (consider tapering up to 100mg), trazodone 50mg po hs - Valium 5mg po bid prn Closed fracture of right proximal tibia - Repeat tibia/fibula x ray showed Radiographic manifestations of continued healing proximal right tibial fracture - Orthopedic surgery consulted, Dr. Hernandez; help appreciated - Per ortho: continue well padded knee immobilizer; non operative; recommends PT/OT, NWB, VTE proph, and to f/u with Dr. Hernandez 1-2 weeks upon d/c Prophylactic Measures - Protonix 40mg PO daily, Probiotics - Xarelto 20mg PO daily (Held) - PT/OT - Palliative care consulted to discuss goals of care - Case management consulted for discharge planning to [facility] after Surgery. Disposition: Diagnostic laparoscopy possible Distal Pancreatectomy scheduled for 10/11/[address] Nenita Martinez PGY-2
--- NOTE | 2018-10-10 09:22 | CP.PCM.PN ---
<Bárbara Sibley - Last Filed: 10/10/18 16:55> Subjective - Date & Time of Evaluation Date of Evaluation: 10/10/18 Time of Evaluation: 16:55 - Subjective Subjective: Surgery: DR. Valle No complaints at this time. Patient aware OR is scheduled for tomorrow. Objective - Vital Signs/Intake and Output Vital Signs (last 24 hours): Temp Pulse Resp BP Pulse Ox 98.0 F 115 H 18 139/74 96 10/10/18 07:00 10/10/18 07:50 10/10/18 07:00 10/10/18 07:00 10/10/18 07:00 Intake and Output: 10/10/18 10/10/18 06:59 18:59 Output Total 400 Balance -400 - Medications Medications: Current Medications Acetaminophen (Tylenol 325mg Tab) 650 mg PO Q4 PRN PRN Reason: Pain, Mild (1-3) Last Admin: 09/29/18 12:10 Dose: 650 mg Colchicine (Colocrys) 0.6 mg PO BID [facility] Last Admin: 10/09/18 18:03 Dose: 0.6 mg Cyclobenzaprine HCl (Flexeril) 5 mg PO TID [facility] Last Admin: 10/09/18 17:55 Dose: 5 mg Dextrose (Dextrose 50% Inj) 0 ml IV STAT PRN; Protocol PRN Reason: Hypoglycemia Protocol Dextrose (Glutose 15) 0 gm PO ONCE PRN; Protocol PRN Reason: Hypoglycemia Protocol Diazepam (Valium) 5 mg PO BID PRN PRN Reason: Anxiety Last Admin: 10/09/18 10:05 Dose: 5 mg Dicyclomine HCl (Bentyl) 20 mg PO TID [facility] Last Admin: 10/09/18 17:55 Dose: 20 mg Diltiazem HCl (Cardizem Cd) 180 mg PO TID [facility] Last Admin: 10/09/18 17:55 Dose: 180 mg Ergocalciferol (Drisdol 50,000 Intl Units Cap) 1 cap PO Q7D [facility] Last Admin: 10/04/18 21:59 Dose: 1 cap Ferrous Gluconate (Fergon) 324 mg PO TIDCC [facility] Last Admin: 10/10/18 08:45 Dose: 324 mg Fluticasone/Vilanterol (Breo Ellipta 100-25 Mcg Inh) 1 puff INH RQ24 [facility] Last Admin: 10/10/18 08:06 Dose: Not Given Furosemide (Lasix) 20 mg PO DAILY [facility] Last Admin: 10/09/18 10:05 Dose: 20 mg Gabapentin (Neurontin) 300 mg PO HS [facility] Last Admin: 10/09/18 21:24 Dose: 300 mg Glipizide (Glucotrol) 10 mg PO BID [facility] Last Admin: 10/09/18 17:55 Dose: 10 mg Glucagon (Glucagen Diagnostic Kit) 0 mg IM STAT PRN; Protocol PRN Reason: Hypoglycemia Protocol Metronidazole (Flagyl) 500 mg in 100 mls @ 100 mls/hr IVPB Q8H [facility]; Protocol Last Admin: 10/10/18 06:47 Dose: 100 mls/hr Insulin Aspart (Novolog) 0 unit SC ACHS [facility]; Protocol Last Admin: 10/10/18 08:17 Dose: Not Given Insulin Aspart (Novolog) 10 unit SC AC [facility] Last Admin: 10/10/18 08:27 Dose: 10 units Insulin Glargine (Lantus) 24 unit SC HS [facility] Last Admin: 10/09/18 21:23 Dose: 24 unit Levothyroxine Sodium (Synthroid) 100 mcg PO DAILY@0630 [facility] Last Admin: 10/10/18 06:47 Dose: 100 mcg Lisinopril (Zestril) 10 mg PO DAILY [facility] Last Admin: 10/03/18 10:00 Dose: 10 mg Magnesium Oxide (Mag-Ox) 400 mg PO BID [facility] Last Admin: 10/09/18 17:55 Dose: 400 mg Nystatin (Nystop Topical Powder) 1 applic TOP BID [facility] Last Admin: 10/09/18 17:58 Dose: 1 applic Oxycodone/Acetaminophen (Percocet 5/325 Mg Tab) 2 tab PO Q6H PRN PRN Reason: Pain, severe (8-10) Stop: 10/12/18 19:15 Last Admin: 10/09/18 20:48 Dose: 2 tab Pantoprazole Sodium (Protonix Ec Tab) 40 mg PO DAILY [facility] Last Admin: 10/09/18 10:04 Dose: 40 mg Potassium Chloride (K-Dur 20 Meq Er Tab) 20 meq PO DAILY [facility] Last Admin: 10/09/18 10:04 Dose: 20 meq Prednisone (Prednisone Tab) 10 mg PO DAILY [facility] Last Admin: 10/09/18 10:04 Dose: 10 mg Rivaroxaban (Xarelto) 20 mg PO DAILY [facility] Last Admin: 10/03/18 10:00 Dose: 20 mg Saccharomyces Boulardii (Florastor) 250 mg PO Q12 [facility] Last Admin: 10/09/18 21:25 Dose: 250 mg Sertraline HCl (Zoloft) 50 mg PO DAILY [facility] Last Admin: 10/09/18 10:05 Dose: 50 mg Sitagliptin Phosphate (Januvia) 100 mg PO DAILY [facility] Last Admin: 10/09/18 10:04 Dose: 100 mg Trazodone HCl (Desyrel) 50 mg PO HS [facility] Last Admin: 10/09/18 21:25 Dose: 50 mg Trimethobenzamide HCl (Tigan) 200 mg IM Q8 PRN PRN Reason: Nausea/Vomiting Vitamin B Complex/Vit C/Folic Acid (Nephro-Lavinia) 1 tab PO DAILY [facility] Last Admin: 10/09/18 10:04 Dose: 1 tab - Labs Labs: 10/10/18 07:28 10/10/18 07:28 PT 11.0 SECONDS (9.7-12.2) 10/10/18 07:28 INR 1.0 10/10/18 07:28 APTT 25 SECONDS (21-34) 10/10/18 07:28 - Constitutional Appears: Non-toxic, Chronically Ill - Head Exam Head Exam: ATRAUMATIC, NORMOCEPHALIC - Eye Exam Eye Exam: EOMI, Normal appearance - ENT Exam ENT Exam: Mucous Membranes Moist - Respiratory Exam Respiratory Exam: NORMAL BREATHING PATTERN. absent: Respiratory Distress - Cardiovascular Exam Cardiovascular Exam: REGULAR RHYTHM - GI/Abdominal Exam GI & Abdominal Exam: Soft. absent: Distended, Tenderness Assessment and Plan - Assessment and Plan (Free Text) Assessment: 63F w/ pancreatic mass Plan: - tentative OR Wednesday for diagnostic laparoscopy possible Distal Pancreatectomy - appropriately pre-op, labs and document medical clearance - type and cross 2 units for OR tomorrow - pain control PRN - further recs per Dr. Bradford PGY4 <Adam Ross - Last Filed: 10/10/18 17:00> Objective - Vital Signs/Intake and Output Vital Signs (last 24 hours): Temp Pulse Resp BP Pulse Ox 97.4 F L 124 H 20 134/84 95 10/10/18 15:00 10/10/18 16:23 10/10/18 15:00 10/10/18 15:00 10/10/18 15:00 Intake and Output: 10/10/18 10/10/18 06:59 18:59 Output Total 400 Balance -400 - Medications Medications: Current Medications Acetaminophen (Tylenol 325mg Tab) 650 mg PO Q4 PRN PRN Reason: Pain, Mild (1-3) Last Admin: 09/29/18 12:10 Dose: 650 mg Colchicine (Colocrys) 0.6 mg PO BID [facility] Last Admin: 10/10/18 10:00 Dose: 0.6 mg Cyclobenzaprine HCl (Flexeril) 5 mg PO TID [facility] Last Admin: 10/10/18 13:14 Dose: 5 mg Dextrose (Dextrose 50% Inj) 0 ml IV STAT PRN; Protocol PRN Reason: Hypoglycemia Protocol Dextrose (Glutose 15) 0 gm PO ONCE PRN; Protocol PRN Reason: Hypoglycemia Protocol Diazepam (Valium) 5 mg PO BID PRN PRN Reason: Anxiety Last Admin: 10/10/18 10:02 Dose: 5 mg Dicyclomine HCl (Bentyl) 20 mg PO TID [facility] Last Admin: 10/10/18 13:14 Dose: 20 mg Diltiazem HCl (Cardizem Cd) 180 mg PO TID [facility] Last Admin: 10/10/18 13:13 Dose: 180 mg Ergocalciferol (Drisdol 50,000 Intl Units Cap) 1 cap PO Q7D [facility] Last Admin: 10/04/18 21:59 Dose: 1 cap Ferrous Gluconate (Fergon) 324 mg PO TIDCC [facility] Last Admin: 10/10/18 12:13 Dose: 324 mg Fluticasone/Vilanterol (Breo Ellipta 100-25 Mcg Inh) 1 puff INH RQ24 [facility] Last Admin: 10/10/18 08:06 Dose: Not Given Furosemide (Lasix) 20 mg PO DAILY [facility] Last Admin: 10/10/18 10:01 Dose: 20 mg Gabapentin (Neurontin) 300 mg PO HS [facility] Last Admin: 10/09/18 21:24 Dose: 300 mg Glipizide (Glucotrol) 10 mg PO BID [facility] Last Admin: 10/10/18 10:00 Dose: 10 mg Glucagon (Glucagen Diagnostic Kit) 0 mg IM STAT PRN; Protocol PRN Reason: Hypoglycemia Protocol Metronidazole (Flagyl) 500 mg in 100 mls @ 100 mls/hr IVPB Q8H [facility]; Protocol Last Admin: 10/10/18 15:02 Dose: 100 mls/hr Lactated Ringer's (Lactated Ringer's) 1,000 mls @ 100 mls/hr IV .Q10H [facility] Insulin Aspart (Novolog) 0 unit SC ACHS [facility]; Protocol Last Admin: 10/10/18 12:13 Dose: 2 units Insulin Aspart (Novolog) 10 unit SC AC [facility] Last Admin: 10/10/18 12:13 Dose: 10 units Insulin Glargine (Lantus) 24 unit SC HS [facility] Last Admin: 10/09/18 21:23 Dose: 24 unit Levothyroxine Sodium (Synthroid) 100 mcg PO DAILY@0630 [facility] Last Admin: 10/10/18 06:47 Dose: 100 mcg Lisinopril (Zestril) 10 mg PO DAILY [facility] Last Admin: 10/03/18 10:00 Dose: 10 mg Magnesium Oxide (Mag-Ox) 400 mg PO BID [facility] Last Admin: 10/10/18 09:59 Dose: 400 mg Nystatin (Nystop Topical Powder) 1 applic TOP BID [facility] Last Admin: 10/10/18 10:06 Dose: 1 applic Oxycodone/Acetaminophen (Percocet 5/325 Mg Tab) 2 tab PO Q6H PRN PRN Reason: Pain, severe (8-10) Stop: 10/12/18 19:15 Last Admin: 10/10/18 10:55 Dose: 2 tab Pantoprazole Sodium (Protonix Ec Tab) 40 mg PO DAILY [facility] Last Admin: 10/10/18 09:59 Dose: 40 mg Potassium Chloride (K-Dur 20 Meq Er Tab) 20 meq PO DAILY [facility] Last Admin: 10/10/18 10:00 Dose: 20 meq Prednisone (Prednisone Tab) 10 mg PO DAILY [facility] Last Admin: 10/10/18 10:00 Dose: 10 mg Rivaroxaban (Xarelto) 20 mg PO DAILY [facility] Last Admin: 10/03/18 10:00 Dose: 20 mg Saccharomyces Boulardii (Florastor) 250 mg PO Q12 [facility] Last Admin: 10/10/18 09:59 Dose: 250 mg Sertraline HCl (Zoloft) 50 mg PO DAILY [facility] Last Admin: 10/10/18 10:01 Dose: 50 mg Sitagliptin Phosphate (Januvia) 100 mg PO DAILY [facility] Last Admin: 10/10/18 10:00 Dose: 100 mg Trazodone HCl (Desyrel) 50 mg PO HS [facility] Last Admin: 10/09/18 21:25 Dose: 50 mg Trimethobenzamide HCl (Tigan) 200 mg IM Q8 PRN PRN Reason: Nausea/Vomiting Vitamin B Complex/Vit C/Folic Acid (Nephro-Lavinia) 1 tab PO DAILY [facility] Last Admin: 10/10/18 10:00 Dose: 1 tab - Labs Labs: 10/10/18 07:28 10/10/18 07:28 PT 11.0 SECONDS (9.7-12.2) 10/10/18 07:28 INR 1.0 10/10/18 07:28 APTT 25 SECONDS (21-34) 10/10/18 07:28 Assessment and Plan - Assessment and Plan (Free Text) Plan: All medical record entries made by the resident were at my direction. I have reviewed the chart and agree that the record accurately reflects my personal performance of the history, physical exam, and medical decision making.
[2018-10-10] MEDS: Magnesium Oxide 400 mg Tab UD PO SCH ×2 (09:59→17:59)
[2018-10-10] MEDS: Pantoprazole 40 mg EC Tab PO SCH (09:59)
[2018-10-10] MEDS: Saccharomyces Boulardi 250 mg Cap PO SCH ×2 (09:59→20:50)
[2018-10-10] MEDS: Potassium Chloride 20 mEq ER Tab PO SCH (10:00)
[2018-10-10] MEDS: Multivitamin Vitamin B Complex (Nephro-Vite) Tab PO SCH (10:00)
[2018-10-10] MEDS: diltiaZEM 180 mg/24 Hours CD Cap PO SCH ×3 (10:01→17:59)
[2018-10-10] MEDS: Oxycodone/Acetaminophen 5/325 mg Tab PO PRN ×2 (10:55→18:43)
--- NOTE | 2018-10-10 21:47 | CP.PCM.PN ---
Subjective - Date & Time of Evaluation Date of Evaluation: 10/06/18 Time of Evaluation: 12:00 - Subjective Subjective: No complaints. Objective - Vital Signs/Intake and Output Vital Signs (last 24 hours): Temp Pulse Resp BP Pulse Ox 97.4 F L 124 H 20 134/84 95 10/10/18 15:00 10/10/18 16:23 10/10/18 15:00 10/10/18 15:00 10/10/18 15:00 - Medications Medications: Current Medications Acetaminophen (Tylenol 325mg Tab) 650 mg PO Q4 PRN PRN Reason: Pain, Mild (1-3) Last Admin: 09/29/18 12:10 Dose: 650 mg Colchicine (Colocrys) 0.6 mg PO BID [facility] Last Admin: 10/10/18 18:43 Dose: 0.6 mg Cyclobenzaprine HCl (Flexeril) 5 mg PO TID [facility] Last Admin: 10/10/18 17:59 Dose: 5 mg Dextrose (Dextrose 50% Inj) 0 ml IV STAT PRN; Protocol PRN Reason: Hypoglycemia Protocol Dextrose (Glutose 15) 0 gm PO ONCE PRN; Protocol PRN Reason: Hypoglycemia Protocol Diazepam (Valium) 5 mg PO BID PRN PRN Reason: Anxiety Last Admin: 10/10/18 21:00 Dose: 5 mg Dicyclomine HCl (Bentyl) 20 mg PO TID [facility] Last Admin: 10/10/18 21:01 Dose: 20 mg Diltiazem HCl (Cardizem Cd) 180 mg PO TID [facility] Last Admin: 10/10/18 17:59 Dose: 180 mg Ergocalciferol (Drisdol 50,000 Intl Units Cap) 1 cap PO Q7D [facility] Last Admin: 10/04/18 21:59 Dose: 1 cap Ferrous Gluconate (Fergon) 324 mg PO TIDCC [facility] Last Admin: 10/10/18 17:59 Dose: 324 mg Fluticasone/Vilanterol (Breo Ellipta 100-25 Mcg Inh) 1 puff INH RQ24 [facility] Last Admin: 10/10/18 08:06 Dose: Not Given Furosemide (Lasix) 20 mg PO DAILY [facility] Last Admin: 10/10/18 10:01 Dose: 20 mg Gabapentin (Neurontin) 300 mg PO HS [facility] Last Admin: 04/08/19 21:00 Dose: 300 mg Glipizide (Glucotrol) 10 mg PO BID [facility] Last Admin: 10/10/18 17:59 Dose: 10 mg Glucagon (Glucagen Diagnostic Kit) 0 mg IM STAT PRN; Protocol PRN Reason: Hypoglycemia Protocol Metronidazole (Flagyl) 500 mg in 100 mls @ 100 mls/hr IVPB Q8H [facility]; Protocol Last Admin: 10/10/18 15:02 Dose: 100 mls/hr Sodium Chloride (Sodium Chloride 0.9%) 1,000 mls @ 60 mls/hr IV .[id number] [facility] Insulin Aspart (Novolog) 0 unit SC ACHS [facility]; Protocol Last Admin: 10/10/18 17:58 Dose: 2 units Insulin Aspart (Novolog) 10 unit SC AC [facility] Last Admin: 10/10/18 17:58 Dose: 10 units Insulin Glargine (Lantus) 24 unit SC HS [facility] Last Admin: 10/09/18 21:23 Dose: 24 unit Levothyroxine Sodium (Synthroid) 100 mcg PO DAILY@0630 [facility] Last Admin: 10/10/18 06:47 Dose: 100 mcg Lisinopril (Zestril) 10 mg PO DAILY [facility] Last Admin: 10/03/18 10:00 Dose: 10 mg Magnesium Oxide (Mag-Ox) 400 mg PO BID [facility] Last Admin: 10/10/18 17:59 Dose: 400 mg Nystatin (Nystop Topical Powder) 1 applic TOP BID [facility] Last Admin: 10/10/18 18:00 Dose: Not Given Oxycodone/Acetaminophen (Percocet 5/325 Mg Tab) 2 tab PO Q6H PRN PRN Reason: Pain, severe (8-10) Stop: 10/12/18 19:15 Last Admin: 10/10/18 18:43 Dose: 2 tab Pantoprazole Sodium (Protonix Ec Tab) 40 mg PO DAILY [facility] Last Admin: 10/10/18 09:59 Dose: 40 mg Potassium Chloride (K-Dur 20 Meq Er Tab) 20 meq PO DAILY [facility] Last Admin: 10/10/18 10:00 Dose: 20 meq Prednisone (Prednisone Tab) 10 mg PO DAILY [facility] Last Admin: 10/10/18 10:00 Dose: 10 mg Rivaroxaban (Xarelto) 20 mg PO DAILY [facility] Last Admin: 10/03/18 10:00 Dose: 20 mg Saccharomyces Boulardii (Florastor) 250 mg PO Q12 [facility] Last Admin: 10/10/18 20:50 Dose: 250 mg Sertraline HCl (Zoloft) 50 mg PO DAILY [facility] Last Admin: 10/10/18 10:01 Dose: 50 mg Sitagliptin Phosphate (Januvia) 100 mg PO DAILY [facility] Last Admin: 10/10/18 10:00 Dose: 100 mg Trazodone HCl (Desyrel) 50 mg PO HS [facility] Last Admin: 10/10/18 21:00 Dose: 50 mg Trimethobenzamide HCl (Tigan) 200 mg IM Q8 PRN PRN Reason: Nausea/Vomiting Vitamin B Complex/Vit C/Folic Acid (Nephro-Lavinia) 1 tab PO DAILY [facility] Last Admin: 10/10/18 10:00 Dose: 1 tab - Labs Labs: 10/10/18 07:28 10/10/18 07:28 PT 11.0 SECONDS (9.7-12.2) 10/10/18 07:28 INR 1.0 10/10/18 07:28 APTT 25 SECONDS (21-34) 10/10/18 07:28 - Head Exam Head Exam: ATRAUMATIC - Eye Exam Eye Exam: Normal appearance - ENT Exam ENT Exam: Mucous Membranes Dry - Respiratory Exam Respiratory Exam: NORMAL BREATHING PATTERN - Cardiovascular Exam Cardiovascular Exam: +S1, +S2 - GI/Abdominal Exam GI & Abdominal Exam: Normal Bowel Sounds Assessment and Plan (1) Anemia Assessment & Plan: iron deficiency anemia on supplementation transfusion support PRN Status: Acute (2) Pancreatic cancer Assessment & Plan: no evidence of distant metastasis not a current surgical candidate due to debility surgical reevaluation after rehab Status: Acute
--- NOTE | 2018-10-10 21:48 | CP.PCM.PN ---
Subjective - Date & Time of Evaluation Date of Evaluation: 10/07/18 Time of Evaluation: 19:00 - Subjective Subjective: No complaints. Objective - Vital Signs/Intake and Output Vital Signs (last 24 hours): Temp Pulse Resp BP Pulse Ox 97.4 F L 124 H 20 134/84 95 10/10/18 15:00 10/10/18 16:23 10/10/18 15:00 10/10/18 15:00 10/10/18 15:00 - Medications Medications: Current Medications Acetaminophen (Tylenol 325mg Tab) 650 mg PO Q4 PRN PRN Reason: Pain, Mild (1-3) Last Admin: 09/29/18 12:10 Dose: 650 mg Colchicine (Colocrys) 0.6 mg PO BID [facility] Last Admin: 10/10/18 18:43 Dose: 0.6 mg Cyclobenzaprine HCl (Flexeril) 5 mg PO TID [facility] Last Admin: 10/10/18 17:59 Dose: 5 mg Dextrose (Dextrose 50% Inj) 0 ml IV STAT PRN; Protocol PRN Reason: Hypoglycemia Protocol Dextrose (Glutose 15) 0 gm PO ONCE PRN; Protocol PRN Reason: Hypoglycemia Protocol Diazepam (Valium) 5 mg PO BID PRN PRN Reason: Anxiety Last Admin: 10/10/18 21:00 Dose: 5 mg Dicyclomine HCl (Bentyl) 20 mg PO TID [facility] Last Admin: 10/10/18 21:01 Dose: 20 mg Diltiazem HCl (Cardizem Cd) 180 mg PO TID [facility] Last Admin: 10/10/18 17:59 Dose: 180 mg Ergocalciferol (Drisdol 50,000 Intl Units Cap) 1 cap PO Q7D [facility] Last Admin: 10/04/18 21:59 Dose: 1 cap Ferrous Gluconate (Fergon) 324 mg PO TIDCC [facility] Last Admin: 10/10/18 17:59 Dose: 324 mg Fluticasone/Vilanterol (Breo Ellipta 100-25 Mcg Inh) 1 puff INH RQ24 [facility] Last Admin: 10/10/18 08:06 Dose: Not Given Furosemide (Lasix) 20 mg PO DAILY [facility] Last Admin: 10/10/18 10:01 Dose: 20 mg Gabapentin (Neurontin) 300 mg PO HS [facility] Last Admin: 04/08/19 21:00 Dose: 300 mg Glipizide (Glucotrol) 10 mg PO BID [facility] Last Admin: 10/10/18 17:59 Dose: 10 mg Glucagon (Glucagen Diagnostic Kit) 0 mg IM STAT PRN; Protocol PRN Reason: Hypoglycemia Protocol Metronidazole (Flagyl) 500 mg in 100 mls @ 100 mls/hr IVPB Q8H [facility]; Protocol Last Admin: 10/10/18 15:02 Dose: 100 mls/hr Sodium Chloride (Sodium Chloride 0.9%) 1,000 mls @ 60 mls/hr IV .[id number] [facility] Insulin Aspart (Novolog) 0 unit SC ACHS [facility]; Protocol Last Admin: 10/10/18 17:58 Dose: 2 units Insulin Aspart (Novolog) 10 unit SC AC [facility] Last Admin: 10/10/18 17:58 Dose: 10 units Insulin Glargine (Lantus) 24 unit SC HS [facility] Last Admin: 10/09/18 21:23 Dose: 24 unit Levothyroxine Sodium (Synthroid) 100 mcg PO DAILY@0630 [facility] Last Admin: 10/10/18 06:47 Dose: 100 mcg Lisinopril (Zestril) 10 mg PO DAILY [facility] Last Admin: 10/03/18 10:00 Dose: 10 mg Magnesium Oxide (Mag-Ox) 400 mg PO BID [facility] Last Admin: 10/10/18 17:59 Dose: 400 mg Nystatin (Nystop Topical Powder) 1 applic TOP BID [facility] Last Admin: 10/10/18 18:00 Dose: Not Given Oxycodone/Acetaminophen (Percocet 5/325 Mg Tab) 2 tab PO Q6H PRN PRN Reason: Pain, severe (8-10) Stop: 10/12/18 19:15 Last Admin: 10/10/18 18:43 Dose: 2 tab Pantoprazole Sodium (Protonix Ec Tab) 40 mg PO DAILY [facility] Last Admin: 10/10/18 09:59 Dose: 40 mg Potassium Chloride (K-Dur 20 Meq Er Tab) 20 meq PO DAILY [facility] Last Admin: 10/10/18 10:00 Dose: 20 meq Prednisone (Prednisone Tab) 10 mg PO DAILY [facility] Last Admin: 10/10/18 10:00 Dose: 10 mg Rivaroxaban (Xarelto) 20 mg PO DAILY [facility] Last Admin: 10/03/18 10:00 Dose: 20 mg Saccharomyces Boulardii (Florastor) 250 mg PO Q12 [facility] Last Admin: 10/10/18 20:50 Dose: 250 mg Sertraline HCl (Zoloft) 50 mg PO DAILY [facility] Last Admin: 10/10/18 10:01 Dose: 50 mg Sitagliptin Phosphate (Januvia) 100 mg PO DAILY [facility] Last Admin: 10/10/18 10:00 Dose: 100 mg Trazodone HCl (Desyrel) 50 mg PO HS [facility] Last Admin: 10/10/18 21:00 Dose: 50 mg Trimethobenzamide HCl (Tigan) 200 mg IM Q8 PRN PRN Reason: Nausea/Vomiting Vitamin B Complex/Vit C/Folic Acid (Nephro-Lavinia) 1 tab PO DAILY [facility] Last Admin: 10/10/18 10:00 Dose: 1 tab - Labs Labs: 10/10/18 07:28 10/10/18 07:28 PT 11.0 SECONDS (9.7-12.2) 10/10/18 07:28 INR 1.0 10/10/18 07:28 APTT 25 SECONDS (21-34) 10/10/18 07:28 - Head Exam Head Exam: ATRAUMATIC - Eye Exam Eye Exam: Normal appearance - ENT Exam ENT Exam: Mucous Membranes Dry - Respiratory Exam Respiratory Exam: Decreased Breath Sounds - Cardiovascular Exam Cardiovascular Exam: +S1, +S2 - GI/Abdominal Exam GI & Abdominal Exam: Normal Bowel Sounds Assessment and Plan (1) Anemia Assessment & Plan: iron deficiency anemia on supplementation transfusion support PRN Status: Acute (2) Pancreatic cancer Assessment & Plan: no evidence of distant metastasis for surgery Status: Acute
--- NOTE | 2018-10-10 21:49 | CP.PCM.PN ---
Subjective - Date & Time of Evaluation Date of Evaluation: 10/08/18 Time of Evaluation: 16:00 - Subjective Subjective: No complaints. Objective - Vital Signs/Intake and Output Vital Signs (last 24 hours): Temp Pulse Resp BP Pulse Ox 97.4 F L 124 H 20 134/84 95 10/10/18 15:00 10/10/18 16:23 10/10/18 15:00 10/10/18 15:00 10/10/18 15:00 - Medications Medications: Current Medications Acetaminophen (Tylenol 325mg Tab) 650 mg PO Q4 PRN PRN Reason: Pain, Mild (1-3) Last Admin: 09/29/18 12:10 Dose: 650 mg Colchicine (Colocrys) 0.6 mg PO BID [facility] Last Admin: 10/10/18 18:43 Dose: 0.6 mg Cyclobenzaprine HCl (Flexeril) 5 mg PO TID [facility] Last Admin: 10/10/18 17:59 Dose: 5 mg Dextrose (Dextrose 50% Inj) 0 ml IV STAT PRN; Protocol PRN Reason: Hypoglycemia Protocol Dextrose (Glutose 15) 0 gm PO ONCE PRN; Protocol PRN Reason: Hypoglycemia Protocol Diazepam (Valium) 5 mg PO BID PRN PRN Reason: Anxiety Last Admin: 10/10/18 21:00 Dose: 5 mg Dicyclomine HCl (Bentyl) 20 mg PO TID [facility] Last Admin: 10/10/18 21:01 Dose: 20 mg Diltiazem HCl (Cardizem Cd) 180 mg PO TID [facility] Last Admin: 10/10/18 17:59 Dose: 180 mg Ergocalciferol (Drisdol 50,000 Intl Units Cap) 1 cap PO Q7D [facility] Last Admin: 10/04/18 21:59 Dose: 1 cap Ferrous Gluconate (Fergon) 324 mg PO TIDCC [facility] Last Admin: 10/10/18 17:59 Dose: 324 mg Fluticasone/Vilanterol (Breo Ellipta 100-25 Mcg Inh) 1 puff INH RQ24 [facility] Last Admin: 10/10/18 08:06 Dose: Not Given Furosemide (Lasix) 20 mg PO DAILY [facility] Last Admin: 10/10/18 10:01 Dose: 20 mg Gabapentin (Neurontin) 300 mg PO HS [facility] Last Admin: 04/08/19 21:00 Dose: 300 mg Glipizide (Glucotrol) 10 mg PO BID [facility] Last Admin: 10/10/18 17:59 Dose: 10 mg Glucagon (Glucagen Diagnostic Kit) 0 mg IM STAT PRN; Protocol PRN Reason: Hypoglycemia Protocol Metronidazole (Flagyl) 500 mg in 100 mls @ 100 mls/hr IVPB Q8H [facility]; Protocol Last Admin: 10/10/18 15:02 Dose: 100 mls/hr Sodium Chloride (Sodium Chloride 0.9%) 1,000 mls @ 60 mls/hr IV .[id number] [facility] Insulin Aspart (Novolog) 0 unit SC ACHS [facility]; Protocol Last Admin: 10/10/18 17:58 Dose: 2 units Insulin Aspart (Novolog) 10 unit SC AC [facility] Last Admin: 10/10/18 17:58 Dose: 10 units Insulin Glargine (Lantus) 24 unit SC HS [facility] Last Admin: 10/09/18 21:23 Dose: 24 unit Levothyroxine Sodium (Synthroid) 100 mcg PO DAILY@0630 [facility] Last Admin: 10/10/18 06:47 Dose: 100 mcg Lisinopril (Zestril) 10 mg PO DAILY [facility] Last Admin: 10/03/18 10:00 Dose: 10 mg Magnesium Oxide (Mag-Ox) 400 mg PO BID [facility] Last Admin: 10/10/18 17:59 Dose: 400 mg Nystatin (Nystop Topical Powder) 1 applic TOP BID [facility] Last Admin: 10/10/18 18:00 Dose: Not Given Oxycodone/Acetaminophen (Percocet 5/325 Mg Tab) 2 tab PO Q6H PRN PRN Reason: Pain, severe (8-10) Stop: 10/12/18 19:15 Last Admin: 10/10/18 18:43 Dose: 2 tab Pantoprazole Sodium (Protonix Ec Tab) 40 mg PO DAILY [facility] Last Admin: 10/10/18 09:59 Dose: 40 mg Potassium Chloride (K-Dur 20 Meq Er Tab) 20 meq PO DAILY [facility] Last Admin: 10/10/18 10:00 Dose: 20 meq Prednisone (Prednisone Tab) 10 mg PO DAILY [facility] Last Admin: 10/10/18 10:00 Dose: 10 mg Rivaroxaban (Xarelto) 20 mg PO DAILY [facility] Last Admin: 10/03/18 10:00 Dose: 20 mg Saccharomyces Boulardii (Florastor) 250 mg PO Q12 [facility] Last Admin: 10/10/18 20:50 Dose: 250 mg Sertraline HCl (Zoloft) 50 mg PO DAILY [facility] Last Admin: 10/10/18 10:01 Dose: 50 mg Sitagliptin Phosphate (Januvia) 100 mg PO DAILY [facility] Last Admin: 10/10/18 10:00 Dose: 100 mg Trazodone HCl (Desyrel) 50 mg PO HS [facility] Last Admin: 10/10/18 21:00 Dose: 50 mg Trimethobenzamide HCl (Tigan) 200 mg IM Q8 PRN PRN Reason: Nausea/Vomiting Vitamin B Complex/Vit C/Folic Acid (Nephro-Lavinia) 1 tab PO DAILY [facility] Last Admin: 10/10/18 10:00 Dose: 1 tab - Labs Labs: 10/10/18 07:28 10/10/18 07:28 PT 11.0 SECONDS (9.7-12.2) 10/10/18 07:28 INR 1.0 10/10/18 07:28 APTT 25 SECONDS (21-34) 10/10/18 07:28 - Head Exam Head Exam: ATRAUMATIC - Eye Exam Eye Exam: Normal appearance - ENT Exam ENT Exam: Mucous Membranes Dry - Respiratory Exam Respiratory Exam: NORMAL BREATHING PATTERN - Cardiovascular Exam Cardiovascular Exam: +S1, +S2 - GI/Abdominal Exam GI & Abdominal Exam: Normal Bowel Sounds Assessment and Plan (1) Anemia Assessment & Plan: iron deficiency anemia on supplementation transfusion support PRN Status: Acute (2) Pancreatic cancer Assessment & Plan: no evidence of distant metastasis for surgery Status: Acute
[2018-10-10] MEDS: (Lantus) Insulin Glargine, Recombinant SC SCH (21:51)
--- NOTE | 2018-10-10 21:51 | CP.PCM.PN ---
Subjective - Date & Time of Evaluation Date of Evaluation: 10/10/18 Time of Evaluation: 19:00 - Subjective Subjective: No complaints. Objective - Vital Signs/Intake and Output Vital Signs (last 24 hours): Temp Pulse Resp BP Pulse Ox 97.4 F L 124 H 20 134/84 95 10/10/18 15:00 10/10/18 16:23 10/10/18 15:00 10/10/18 15:00 10/10/18 15:00 - Medications Medications: Current Medications Acetaminophen (Tylenol 325mg Tab) 650 mg PO Q4 PRN PRN Reason: Pain, Mild (1-3) Last Admin: 09/29/18 12:10 Dose: 650 mg Colchicine (Colocrys) 0.6 mg PO BID [facility] Last Admin: 10/10/18 18:43 Dose: 0.6 mg Cyclobenzaprine HCl (Flexeril) 5 mg PO TID [facility] Last Admin: 10/10/18 17:59 Dose: 5 mg Dextrose (Dextrose 50% Inj) 0 ml IV STAT PRN; Protocol PRN Reason: Hypoglycemia Protocol Dextrose (Glutose 15) 0 gm PO ONCE PRN; Protocol PRN Reason: Hypoglycemia Protocol Diazepam (Valium) 5 mg PO BID PRN PRN Reason: Anxiety Last Admin: 10/10/18 21:00 Dose: 5 mg Dicyclomine HCl (Bentyl) 20 mg PO TID [facility] Last Admin: 10/10/18 21:01 Dose: 20 mg Diltiazem HCl (Cardizem Cd) 180 mg PO TID [facility] Last Admin: 10/10/18 17:59 Dose: 180 mg Ergocalciferol (Drisdol 50,000 Intl Units Cap) 1 cap PO Q7D [facility] Last Admin: 10/04/18 21:59 Dose: 1 cap Ferrous Gluconate (Fergon) 324 mg PO TIDCC [facility] Last Admin: 10/10/18 17:59 Dose: 324 mg Fluticasone/Vilanterol (Breo Ellipta 100-25 Mcg Inh) 1 puff INH RQ24 [facility] Last Admin: 10/10/18 08:06 Dose: Not Given Furosemide (Lasix) 20 mg PO DAILY [facility] Last Admin: 10/10/18 10:01 Dose: 20 mg Gabapentin (Neurontin) 300 mg PO HS [facility] Last Admin: 04/08/19 21:00 Dose: 300 mg Glipizide (Glucotrol) 10 mg PO BID [facility] Last Admin: 10/10/18 17:59 Dose: 10 mg Glucagon (Glucagen Diagnostic Kit) 0 mg IM STAT PRN; Protocol PRN Reason: Hypoglycemia Protocol Metronidazole (Flagyl) 500 mg in 100 mls @ 100 mls/hr IVPB Q8H [facility]; Protocol Last Admin: 10/10/18 15:02 Dose: 100 mls/hr Sodium Chloride (Sodium Chloride 0.9%) 1,000 mls @ 60 mls/hr IV .[id number] [facility] Insulin Aspart (Novolog) 0 unit SC ACHS [facility]; Protocol Last Admin: 10/10/18 17:58 Dose: 2 units Insulin Aspart (Novolog) 10 unit SC AC [facility] Last Admin: 10/10/18 17:58 Dose: 10 units Insulin Glargine (Lantus) 24 unit SC HS [facility] Last Admin: 10/09/18 21:23 Dose: 24 unit Levothyroxine Sodium (Synthroid) 100 mcg PO DAILY@0630 [facility] Last Admin: 10/10/18 06:47 Dose: 100 mcg Lisinopril (Zestril) 10 mg PO DAILY [facility] Last Admin: 10/03/18 10:00 Dose: 10 mg Magnesium Oxide (Mag-Ox) 400 mg PO BID [facility] Last Admin: 10/10/18 17:59 Dose: 400 mg Nystatin (Nystop Topical Powder) 1 applic TOP BID [facility] Last Admin: 10/10/18 18:00 Dose: Not Given Oxycodone/Acetaminophen (Percocet 5/325 Mg Tab) 2 tab PO Q6H PRN PRN Reason: Pain, severe (8-10) Stop: 10/12/18 19:15 Last Admin: 10/10/18 18:43 Dose: 2 tab Pantoprazole Sodium (Protonix Ec Tab) 40 mg PO DAILY [facility] Last Admin: 10/10/18 09:59 Dose: 40 mg Potassium Chloride (K-Dur 20 Meq Er Tab) 20 meq PO DAILY [facility] Last Admin: 10/10/18 10:00 Dose: 20 meq Prednisone (Prednisone Tab) 10 mg PO DAILY [facility] Last Admin: 10/10/18 10:00 Dose: 10 mg Rivaroxaban (Xarelto) 20 mg PO DAILY [facility] Last Admin: 10/03/18 10:00 Dose: 20 mg Saccharomyces Boulardii (Florastor) 250 mg PO Q12 [facility] Last Admin: 10/10/18 20:50 Dose: 250 mg Sertraline HCl (Zoloft) 50 mg PO DAILY [facility] Last Admin: 10/10/18 10:01 Dose: 50 mg Sitagliptin Phosphate (Januvia) 100 mg PO DAILY [facility] Last Admin: 10/10/18 10:00 Dose: 100 mg Trazodone HCl (Desyrel) 50 mg PO HS [facility] Last Admin: 10/10/18 21:00 Dose: 50 mg Trimethobenzamide HCl (Tigan) 200 mg IM Q8 PRN PRN Reason: Nausea/Vomiting Vitamin B Complex/Vit C/Folic Acid (Nephro-Lavinia) 1 tab PO DAILY [facility] Last Admin: 10/10/18 10:00 Dose: 1 tab - Labs Labs: 10/10/18 07:28 10/10/18 07:28 PT 11.0 SECONDS (9.7-12.2) 10/10/18 07:28 INR 1.0 10/10/18 07:28 APTT 25 SECONDS (21-34) 10/10/18 07:28 - Head Exam Head Exam: ATRAUMATIC - Eye Exam Eye Exam: Normal appearance - ENT Exam ENT Exam: Mucous Membranes Dry - Respiratory Exam Respiratory Exam: NORMAL BREATHING PATTERN - Cardiovascular Exam Cardiovascular Exam: +S1, +S2 - GI/Abdominal Exam GI & Abdominal Exam: Normal Bowel Sounds Assessment and Plan (1) Anemia Assessment & Plan: iron deficiency anemia on supplementation transfusion support PRN Status: Acute (2) Pancreatic cancer Assessment & Plan: For surgery no distant mets Status: Acute
[2018-10-10 21:59] LABS: ABG ALLEN TEST POS; ARTERIAL BLOOD GAS HCO3 25.9 mmol/L (21-28); ARTERIAL BLOOD GAS HEMOGLOBIN 9.1 g/dL (11.7-17.4); ARTERIAL BLOOD GAS O2 SAT 98.4 % (95-98); ARTERIAL BLOOD GAS PCO2 41 mm/Hg (35-45); ARTERIAL BLOOD GAS PH 7.41 (7.35-7.45); ARTERIAL BLOOD GAS PO2 77 mm/Hg (80-100); ARTERIAL BLOOD GAS TCO2 27.3 mmol/L (22-28)
[2018-10-10] MEDS: Sodium Chloride 0.9% 1,000 ML IV SCH (23:47)
[2018-10-11] MEDS ORDERED: Lactated Ringer's 1,000 ML IV SCH (00:01)
[2018-10-11 04:11] LABS: BASO # 0.1 K/uL (0.0-0.2); EOS # 0.1 K/uL (0.0-0.7); EOS % 1.2 % (0.0-4.0); HEMOGLOBIN 9.8 g/dL (11.0-16.0); LYMPH # 2.2 K/uL (1.0-4.3); LYMPH % 21.4 % (20.0-40.0); MEAN CELL VOLUME 77.1 fL (81.0-99.0); MEAN CORPUSCULAR HEMOGLOBIN 22.5 pg (27.0-31.0); MEAN CORPUSCULAR HGB CONC 29.2 g/dL (33.0-37.0); MEAN PLATELET VOLUME 8.4 fL (7.2-11.7); MONO # 1.1 K/uL (0.0-0.8); MONO % 10.5 % (0.0-10.0); NEUT # 6.8 K/uL (1.8-7.0); NEUT % 65.9 % (50.0-75.0); NRBC % 0.2 % (0.0-2.0); RBC 4.34 Mil/uL (3.80-5.20); RED CELL DISTRIBUTION WIDTH 21.9 % (11.5-14.5); WHITE BLOOD COUNT 10.3 K/uL (4.8-10.8)
[2018-10-11 04:37] LABS: ALB/GLOB RATIO 1.3 (1.0-2.1); ALBUMIN 3.2 g/dL (3.5-5.0); ALT/SGPT 146 U/L (9-52); AST/SGOT 71 U/L (14-36); BLOOD UREA NITROGEN 29 mg/dL (7-17); CALCIUM 9.2 mg/dl (8.6-10.4); GFR NON-AFRICAN AMERICAN 50
[2018-10-11] MEDS: Levothyroxine 100 MCG TAB PO SCH (05:35)
[2018-10-11] MEDS: Magnesium Sulfate 1 gm in D5W 1 GM/100 ML BAG IVPB SCH ×2 (06:50→07:10)
[2018-10-11] MEDS: (Novolog) Insulin Aspart, Recombinant 100 u/ml 10 ml vial SC SCH ×9 (07:21→21:27)
[2018-10-11] MEDS ORDERED: Bupivacaine 0.25% 20 ML INJ IJ ONE (07:43)
[2018-10-11] MEDS ORDERED: Midazolam 2 MG/2 ML VIAL ONE (07:56)
[2018-10-11] MEDS ORDERED: Propofol 10 mg/ml Inj (20 ML) ONE (07:57)
[2018-10-11] MEDS ORDERED: ceFAZolin 1 gm in NS 2 GM/200 ML BAG IVPB ONE (08:07)
[2018-10-11] MEDS ORDERED: Succinylcholine Chloride 20 mg/ml Syr (5 ml) IV ONE (08:17)
[2018-10-11] MEDS ORDERED: Lidocaine Hydrochloride 5 ML INJ ONE (08:17)
[2018-10-11] MEDS ORDERED: Rocuronium 10 mg/ml (5 ml) ONE (08:56)
[2018-10-11] MEDS ORDERED: Phenylephrine 10 mg/ml Inj ONE (08:56)
[2018-10-11] MEDS ORDERED: Lidocaine/Epinephrine 1% 1:100000 10 ML IJ ONE (08:57)
[2018-10-11] MEDS: metroNIDAZOLE IV 500 mg/100 ml 500 MG/100 ML BAG IVPB SCH ×3 (10:05→23:50)
[2018-10-11] MEDS: Saccharomyces Boulardi 250 mg Cap PO SCH ×2 (10:05→21:20)
[2018-10-11] MEDS: Potassium Chloride 20 mEq ER Tab PO SCH (10:06)
[2018-10-11] MEDS: Magnesium Oxide 400 mg Tab UD PO SCH ×3 (10:08→18:59)
[2018-10-11] MEDS: Multivitamin Vitamin B Complex (Nephro-Vite) Tab PO SCH (10:08)
[2018-10-11] MEDS: Pantoprazole 40 mg EC Tab PO SCH (10:09)
[2018-10-11] MEDS ORDERED: HYDROmorphone 0.5 mg/0.5 ml ISec IVP PRN (10:13)
--- NOTE | 2018-10-11 10:17 | PCM.SURG1 ---
Surgeon's Initial Post Op Note - Surgeon's Notes Surgeon: Dr. Valle Coke Oven Patcher: [id number] Type of Anesthesia: General Endo Anesthesia Administered By: Dr. Stephens Pre-Operative Diagnosis: Pancreatic Mass Operative Findings: Metastasis to the liver, grossly single nodule. Cystic lesion and harden pancreas. for details see op note Post-Operative Diagnosis: Metastatic Adenocarcionoma Operation Performed: 1. Diagonsitic Laparoscopy. 2. Liver Biopsy. 3. Fuentes Catheter placement Specimen/Specimens Removed: Liver nodule Estimated Blood Loss: EBL {In ML}: 5 Drains Used: No Drains Post-Op Condition: Fair Date of Surgery/Procedure: 10/11/18 Time of Surgery/Procedure: 10:17
[2018-10-11] MEDS: diltiaZEM 180 mg/24 Hours CD Cap PO SCH ×4 (10:35→18:59)
--- NOTE | 2018-10-11 14:27 | CP.PCM.PN ---
Subjective - Date & Time of Evaluation Date of Evaluation: 10/11/18 Time of Evaluation: 12:00 - Subjective Subjective: No complaints. Op report noted; liver metastasis noted s/p biopsy Objective - Vital Signs/Intake and Output Vital Signs (last 24 hours): Temp Pulse Resp BP Pulse Ox 97.9 F 104 H 20 143/73 99 10/11/18 12:13 10/11/18 12:13 10/11/18 12:13 10/11/18 12:13 10/11/18 12:13 Intake and Output: 10/11/18 10/11/18 06:59 18:59 Intake Total 350 1860 Output Total 700 150 Balance -350 1710 - Medications Medications: Current Medications Acetaminophen (Tylenol 325mg Tab) 650 mg PO Q4 PRN PRN Reason: Pain, Mild (1-3) Last Admin: 09/29/18 12:10 Dose: 650 mg Colchicine (Colocrys) 0.6 mg PO BID [facility] Last Admin: 10/11/18 10:05 Dose: Not Given Cyclobenzaprine HCl (Flexeril) 5 mg PO TID [facility] Last Admin: 10/11/18 13:15 Dose: 5 mg Dextrose (Dextrose 50% Inj) 0 ml IV STAT PRN; Protocol PRN Reason: Hypoglycemia Protocol Dextrose (Glutose 15) 0 gm PO ONCE PRN; Protocol PRN Reason: Hypoglycemia Protocol Diazepam (Valium) 5 mg PO BID PRN PRN Reason: Anxiety Last Admin: 10/10/18 21:00 Dose: 5 mg Dicyclomine HCl (Bentyl) 20 mg PO TID [facility] Last Admin: 10/11/18 13:15 Dose: 20 mg Diltiazem HCl (Cardizem Cd) 180 mg PO TID [facility] Last Admin: 10/11/18 13:15 Dose: 180 mg Ergocalciferol (Drisdol 50,000 Intl Units Cap) 1 cap PO Q7D [facility] Last Admin: 10/04/18 21:59 Dose: 1 cap Ferrous Gluconate (Fergon) 324 mg PO TIDCC [facility] Last Admin: 10/11/18 13:18 Dose: 324 mg Fluticasone/Vilanterol (Breo Ellipta 100-25 Mcg Inh) 1 puff INH RQ24 [facility] Last Admin: 10/10/18 08:06 Dose: Not Given Furosemide (Lasix) 20 mg PO DAILY [facility] Last Admin: 10/11/18 10:07 Dose: Not Given Gabapentin (Neurontin) 300 mg PO HS [facility] Last Admin: 10/10/18 21:00 Dose: 300 mg Glipizide (Glucotrol) 10 mg PO BID [facility] Last Admin: 10/11/18 10:06 Dose: Not Given Glucagon (Glucagen Diagnostic Kit) 0 mg IM STAT PRN; Protocol PRN Reason: Hypoglycemia Protocol Metronidazole (Flagyl) 500 mg in 100 mls @ 100 mls/hr IVPB Q8H [facility]; Protocol Last Admin: 10/11/18 10:05 Dose: Not Given Sodium Chloride (Sodium Chloride 0.9%) 1,000 mls @ 60 mls/hr IV .[id number] [facility] Last Admin: 10/10/18 23:47 Dose: 60 mls/hr Insulin Aspart (Novolog) 0 unit SC [facility]; Protocol Last Admin: 10/11/18 13:15 Dose: 2 units Insulin Aspart (Novolog) 10 unit SC AC [facility] Last Admin: 10/11/18 13:16 Dose: 10 units Insulin Glargine (Lantus) 24 unit SC [facility] Last Admin: 10/10/18 21:51 Dose: Not Given Levothyroxine Sodium (Synthroid) 100 mcg PO DAILY@0630 [facility] Last Admin: 10/11/18 05:35 Dose: Not Given Lisinopril (Zestril) 10 mg PO DAILY [facility] Last Admin: 10/03/18 10:00 Dose: 10 mg Magnesium Oxide (Mag-Ox) 400 mg PO BID [facility] Last Admin: 10/11/18 10:08 Dose: Not Given Nystatin (Nystop Topical Powder) 1 applic TOP BID [facility] Last Admin: 10/11/18 10:08 Dose: Not Given Oxycodone/Acetaminophen (Percocet 5/325 Mg Tab) 2 tab PO Q6H PRN PRN Reason: Pain, severe (8-10) Stop: 10/12/18 19:15 Last Admin: 10/10/18 18:43 Dose: 2 tab Pantoprazole Sodium (Protonix Ec Tab) 40 mg PO DAILY [facility] Last Admin: 10/11/18 10:09 Dose: Not Given Potassium Chloride (K-Dur 20 Meq Er Tab) 20 meq PO DAILY [facility] Last Admin: 10/11/18 10:06 Dose: Not Given Prednisone (Prednisone Tab) 10 mg PO DAILY [facility] Last Admin: 10/11/18 10:08 Dose: Not Given Rivaroxaban (Xarelto) 20 mg PO DAILY [facility] Last Admin: 10/03/18 10:00 Dose: 20 mg Saccharomyces Boulardii (Florastor) 250 mg PO Q12 [facility] Last Admin: 10/11/18 10:05 Dose: Not Given Sertraline HCl (Zoloft) 50 mg PO DAILY [facility] Last Admin: 10/11/18 10:09 Dose: Not Given Sitagliptin Phosphate (Januvia) 100 mg PO DAILY [facility] Last Admin: 10/11/18 10:06 Dose: Not Given Trazodone HCl (Desyrel) 50 mg PO HS [facility] Last Admin: 10/10/18 21:00 Dose: 50 mg Trimethobenzamide HCl (Tigan) 200 mg IM Q8 PRN PRN Reason: Nausea/Vomiting Vitamin B Complex/Vit C/Folic Acid (Nephro-Lavinia) 1 tab PO DAILY [facility] Last Admin: 10/11/18 10:08 Dose: Not Given - Labs Labs: 10/11/18 04:07 10/11/18 04:07 PT 11.0 SECONDS (9.7-12.2) 10/10/18 07:28 INR 1.0 10/10/18 07:28 APTT 25 SECONDS (21-34) 10/10/18 07:28 - Head Exam Head Exam: ATRAUMATIC - Eye Exam Eye Exam: Normal appearance - ENT Exam ENT Exam: Mucous Membranes Dry - Respiratory Exam Respiratory Exam: NORMAL BREATHING PATTERN - Cardiovascular Exam Cardiovascular Exam: +S1, +S2 - GI/Abdominal Exam GI & Abdominal Exam: Normal Bowel Sounds Assessment and Plan (1) Anemia Assessment & Plan: iron deficiency s/p supplementation Status: Acute (2) Pancreatic cancer Assessment & Plan: s/p laparoscopy noted liver lesion s/p biopsy f/u pathology Status: Acute
[2018-10-11] MEDS: Oxycodone/Acetaminophen 5/325 mg Tab PO PRN ×2 (15:07→21:24)
--- NOTE | 2018-10-11 15:16 | CP.PCM.PN ---
Subjective - Date & Time of Evaluation Date of Evaluation: 10/11/18 Time of Evaluation: 15:20 - Subjective Subjective: Medicine note ( Dr. Gutierres's service) Patient was seen and examined at bedside s/p Diagonsitic Laparoscopy and Liver Biopsy POD # 0. Patient is resting in bed in very minimal pain. Patient denies any symptoms of chest pain, palpitations, shortness of breath, dizziness, nausea or vomiting. Objective - Vital Signs/Intake and Output Vital Signs (last 24 hours): Temp Pulse Resp BP Pulse Ox 97.9 F 104 H 20 143/73 99 10/11/18 12:13 10/11/18 12:13 10/11/18 12:13 10/11/18 12:13 10/11/18 12:13 Intake and Output: 10/11/18 10/11/18 06:59 18:59 Intake Total 350 2460 Output Total 700 550 Balance -350 1910 - Medications Medications: Current Medications Acetaminophen (Tylenol 325mg Tab) 650 mg PO Q4 PRN PRN Reason: Pain, Mild (1-3) Last Admin: 09/29/18 12:10 Dose: 650 mg Colchicine (Colocrys) 0.6 mg PO BID [facility] Last Admin: 10/11/18 10:05 Dose: Not Given Cyclobenzaprine HCl (Flexeril) 5 mg PO TID [facility] Last Admin: 10/11/18 13:15 Dose: 5 mg Dextrose (Dextrose 50% Inj) 0 ml IV STAT PRN; Protocol PRN Reason: Hypoglycemia Protocol Dextrose (Glutose 15) 0 gm PO ONCE PRN; Protocol PRN Reason: Hypoglycemia Protocol Diazepam (Valium) 5 mg PO BID PRN PRN Reason: Anxiety Last Admin: 10/10/18 21:00 Dose: 5 mg Dicyclomine HCl (Bentyl) 20 mg PO TID [facility] Last Admin: 10/11/18 13:15 Dose: 20 mg Diltiazem HCl (Cardizem Cd) 180 mg PO TID [facility] Last Admin: 10/11/18 13:15 Dose: 180 mg Ergocalciferol (Drisdol 50,000 Intl Units Cap) 1 cap PO Q7D [facility] Last Admin: 10/04/18 21:59 Dose: 1 cap Ferrous Gluconate (Fergon) 324 mg PO TIDCC [facility] Last Admin: 10/11/18 13:18 Dose: 324 mg Fluticasone/Vilanterol (Breo Ellipta 100-25 Mcg Inh) 1 puff INH RQ24 [facility] Last Admin: 10/10/18 08:06 Dose: Not Given Furosemide (Lasix) 20 mg PO DAILY [facility] Last Admin: 10/11/18 10:07 Dose: Not Given Gabapentin (Neurontin) 300 mg PO [facility] Last Admin: 10/10/18 21:00 Dose: 300 mg Glipizide (Glucotrol) 10 mg PO BID [facility] Last Admin: 10/11/18 10:06 Dose: Not Given Glucagon (Glucagen Diagnostic Kit) 0 mg IM STAT PRN; Protocol PRN Reason: Hypoglycemia Protocol Metronidazole (Flagyl) 500 mg in 100 mls @ 100 mls/hr IVPB Q8H [facility]; Protocol Last Admin: 10/11/18 15:02 Dose: 100 mls/hr Sodium Chloride (Sodium Chloride 0.9%) 1,000 mls @ 60 mls/hr IV .[id number] [facility] Last Admin: 10/10/18 23:47 Dose: 60 mls/hr Insulin Aspart (Novolog) 0 unit SC ACHS [facility]; Protocol Last Admin: 10/11/18 13:15 Dose: 2 units Insulin Aspart (Novolog) 10 unit SC AC [facility] Last Admin: 10/11/18 13:16 Dose: 10 units Insulin Glargine (Lantus) 24 unit SC HS [facility] Last Admin: 10/10/18 21:51 Dose: Not Given Levothyroxine Sodium (Synthroid) 100 mcg PO DAILY@0630 [facility] Last Admin: 10/11/18 05:35 Dose: Not Given Lisinopril (Zestril) 10 mg PO DAILY [facility] Last Admin: 10/03/18 10:00 Dose: 10 mg Magnesium Oxide (Mag-Ox) 400 mg PO BID [facility] Last Admin: 10/11/18 10:08 Dose: Not Given Nystatin (Nystop Topical Powder) 1 applic TOP BID [facility] Last Admin: 10/11/18 10:08 Dose: Not Given Oxycodone/Acetaminophen (Percocet 5/325 Mg Tab) 2 tab PO Q6H PRN PRN Reason: Pain, severe (8-10) Stop: 10/12/18 19:15 Last Admin: 10/11/18 15:07 Dose: 2 tab Pantoprazole Sodium (Protonix Ec Tab) 40 mg PO DAILY [facility] Last Admin: 10/11/18 10:09 Dose: Not Given Potassium Chloride (K-Dur 20 Meq Er Tab) 20 meq PO DAILY [facility] Last Admin: 10/11/18 10:06 Dose: Not Given Prednisone (Prednisone Tab) 10 mg PO DAILY [facility] Last Admin: 10/11/18 10:08 Dose: Not Given Rivaroxaban (Xarelto) 20 mg PO DAILY [facility] Last Admin: 10/03/18 10:00 Dose: 20 mg Saccharomyces Boulardii (Florastor) 250 mg PO Q12 [facility] Last Admin: 10/11/18 10:05 Dose: Not Given Sertraline HCl (Zoloft) 50 mg PO DAILY [facility] Last Admin: 10/11/18 10:09 Dose: Not Given Sitagliptin Phosphate (Januvia) 100 mg PO DAILY [facility] Last Admin: 10/11/18 10:06 Dose: Not Given Trazodone HCl (Desyrel) 50 mg PO HS [facility] Last Admin: 10/10/18 21:00 Dose: 50 mg Trimethobenzamide HCl (Tigan) 200 mg IM Q8 PRN PRN Reason: Nausea/Vomiting Vitamin B Complex/Vit C/Folic Acid (Nephro-Lavinia) 1 tab PO DAILY [facility] Last Admin: 10/11/18 10:08 Dose: Not Given - Labs Labs: 10/11/18 04:07 10/11/18 04:07 PT 11.0 SECONDS (9.7-12.2) 10/10/18 07:28 INR 1.0 10/10/18 07:28 APTT 25 SECONDS (21-34) 10/10/18 07:28 - Constitutional Appears: No Acute Distress - Head Exam Head Exam: ATRAUMATIC - Eye Exam Eye Exam: EOMI - Respiratory Exam Respiratory Exam: Clear to Ausculation Bilateral, NORMAL BREATHING PATTERN. absent: Prolonged Expiratory Phase, Rhonchi, Wheezes, Respiratory Distress - Cardiovascular Exam Cardiovascular Exam: REGULAR RHYTHM, +S1, +S2 - GI/Abdominal Exam GI & Abdominal Exam: Soft, Normal Bowel Sounds Additional comments: s/p Diagonsitic Laparoscopy and Liver Biopsy POD # 0. Incision is clean, dry and intact - Exam Additional comments: Fuentes in place, s/p s/p Diagonsitic Laparoscopy and Liver Biopsy POD # 0. - Extremities Exam Extremities Exam: Normal Inspection. absent: Calf Tenderness, Pedal Edema - Neurological Exam Neurological Exam: Alert, Awake, Oriented x3 - Psychiatric Exam Psychiatric exam: Anxious - Skin Skin Exam: Normal Color Assessment and Plan (1) Pancreatic mass Assessment & Plan: Consultations: - Surgery Dr. Bright; help appreciated - S/p Diagnostic laparoscopy and liver biopsy, POD # 0 * Findings: Metastasis to the liver, grossly single nodule. Cystic lesion and harden pancreas. * F/u up pathology results from liver biopsy Labs and imaging: - CEA: 42.5, CA19-9: 1980, CA125: 36.2 - Abdomen/Pelvic CT: Heterogeneous hyperdense pancreatic mass measuring approximately 2.7 x 2.5 cm at the pancreatic body/tail. Ectatic dilated pancreatic duct. Additional cystic heterogeneous focus measuring approximately 15 x 14 mm is noted at the superior aspect of the pancreas. Appearance worrisome for malignant neoplasm. Wall thickening involving the 2nd portion of the duodenum of uncertain significance; considerations include infectious, inflammatory, or malignant etiologies. Correlate clinically and recommend further evaluation with direct visualization if indicated. Small pelvic free fluid. Status: Acute (2) COPD (chronic obstructive pulmonary disease) Assessment & Plan: - Breo Ellipta 100-25mcg 1 Puff daily - Duonebs Q4h PRN for shortness of breath Status: Acute (3) Diabetes mellitus Assessment & Plan: Consultation: - Endocrinology, Dr. Dickson * Help appreciated HgbA1C (09/07/18): 9.0 Accuchecks ISS- Medium dose Aspart 10 units AC Glargine 24units SC HS Glipizide 10mg PO BID Januvia 100mg PO daily Gabapentin 300mg PO HS Hypoglycemia protocol Status: Acute (4) Acute kidney injury Assessment & Plan: - Continue fluids at 60mls/hr - Decreased Lasix 20mg PO - Held Lisinopril - Nephrovite 1 tab PO daily - Monitor Status: Acute (5) HTN (hypertension) Assessment & Plan: - Lisinopril 10mg PO daily (Held due to KARMA) - Cardizem 180mg PO TID Status: Chronic (6) Fibromyalgia Assessment & Plan: - Home medication: Diazepam 5mg PO BID - Flexeril 5mg PO TID (Holding parameters- hold if sleeping/sedated, hypotension) - Percocet 5/325mg 2 tab Q6H prn for pain - Gabapentin 300mg PO HS Status: Chronic (7) Hypothyroid Assessment & Plan: - Continue Synthroid 100mcg PO daily - TSH/Free T4: 9.5/0.30 Status: Acute (8) History of DVT (deep vein thrombosis) Assessment & Plan: - Continue Xarelto 20mg PO daily (Held for Surgery, 10/11/18) Status: Acute (9) Closed fracture of right proximal tibia Assessment & Plan: - Repeat tibia/fibula x ray showed Radiographic manifestations of continued healing proximal right tibial fracture - Orthopedic surgery consulted, Dr. Hernandez; help appreciated - Per ortho: continue well padded knee immobilizer; non operative; recommends P T/OT, NWB, VTE proph, and to f/u with Dr. Hernandez 1-2 weeks upon d/c Status: Acute (10) Gout Status: Acute (11) Anemia Assessment & Plan: H/H stable Ferugon 324mg PO TIDCC Status: Acute (12) Intertrigo Assessment & Plan: -Redness us Groin Area 2/2 to incontinence -Started Nystatin Powder BID Status: Acute (13) Ulcer Assessment & Plan: Stage 1 Gluteal Ulcer - Patient has been spraying hydrogen peroxide on it - Will consult Nursing Wound Care, - Turn Q2H - Consider Air Mattress Status: Acute (14) Tachycardia Assessment & Plan: - Cardiology consulted, Dr. Jeong; F/U Recs. - Increased Cardizem to 180mg PO TID - Will continue to monitor Status: Acute (15) Prophylactic measure Assessment & Plan: - Protonix 40mg PO daily, Probiotics - Xarelto 20mg PO daily (Held) - PT/OT - Palliative care consulted to discuss goals of care - Case management consulted for discharge planning to [facility] after Surgery. All plans and management discussed with Dr. Gutierres Status: Acute
[2018-10-11] MEDS: Sodium Chloride 0.9% 1,000 ML IV SCH (19:14)
[2018-10-11] MEDS: (Lantus) Insulin Glargine, Recombinant SC SCH (21:20)
[2018-10-11] MEDS: Ergocalciferol 50,000 Intl Units Cap PO SCH (21:21)
[2018-10-12] MEDS: Levothyroxine 100 MCG TAB PO SCH (06:52)
[2018-10-12] MEDS: metroNIDAZOLE IV 500 mg/100 ml 500 MG/100 ML BAG IVPB SCH ×2 (06:52→15:02)
--- NOTE | 2018-10-12 07:00 | OP ---
PROCEDURE DATE: 10/11/2018 PREOPERATIVE DIAGNOSIS: Pancreatic mass. POSTOPERATIVE DIAGNOSIS: Metastatic adenocarcinoma. PROCEDURES: 1. Diagnostic laparoscopy. 2. Biopsy of liver nodule. 3. Fuentes catheter placement. SURGEON: Adam Valle MD ASSISTANTS: Pia Sibley DO, PGY-4 and Rc Cyr DO, PGY-2 ANESTHESIA: General. ANESTHESIOLOGIST: Kevin Stephens MD ESTIMATED BLOOD LOSS: 5 mL. SPECIMEN: Liver nodule sent for frozen section. Pathology called back for adenocarcinoma. INDICATION OF SURGERY: This is a 63-year-old female with past medical history significant for CEA after workup and CT scan shown to have a mass in the body of the pancreas. Risks and benefits were discussed with the patient and family and was taken for a possible diagnostic laparoscopy, possible distal pancreatectomy, possible splenectomy. Family and the patient agreed to the proposed procedure. DESCRIPTION OF PROCEDURE: The patient was taken to the operating room and placed in supine position. General anesthesia was induced. Endotracheal tube was placed, confirmed in satisfactory position with end-tidal CO2. The patient was connected to EKG monitors and pulse oximetry. A standard time-out was taken confirming correct patient, procedure, and laterality. The patient was prepped and draped in the usual sterile fashion. Local anesthetic was used at the infraumbilical site of the proposed incision. Infraumbilical incision was made, and a Veress needle technique was used to enter into the abdomen. Fascia was elevated and the Veress needle was inserted, placed, and confirmed by meniscus test with saline push. Pneumoperitoneum with CO2 was then started. Initial opening pneumo was 5 mmHg and extended up to 15 mmHg. The patient tolerated the insufflation well. A 5-mm scope was then used to enter the abdomen using the Visiport technique. The patient's abdomen was entered appropriately. No initial injuries were noted at this time. Once upon entry, examination of the abdomen was taken place. At this time, it was noted that there was a single nodule on the superior right side of the liver. At this time, a second 5-mm port was placed in the right upper quadrant, 5 mm. Skin was infiltrated with 1% Xylocaine. An incision and a 5-mm port was then inserted. At this time, laparoscopic biopsy forceps were then used, and biopsy was taken of the liver nodule. Specimen was then passed off and sent for frozen to Pathology. Further hemostasis was achieved of the liver. During this time, a second 5-mm port was used and placed just inferior to the previous 5-mm port of the right upper quadrant. Mobilization of the omentum was then used and spleen was appropriately seen. No new injuries were noted at the initial sites of the trocar. At this time, attention was turned back to the greater curvature of the stomach. The lesser sac was entered using harmonic. A close attention was made to avoid injury to the stomach superiorly, pancreas deep and colon inferiorly. Mobilization continued going superiorly through the lesser curvature using Harmonic scalpel. Appropriate hemostasis was achieved. Upon further inspection, a cystic-type nodule was noted at the bottom of the pancreas. On the posterior aspect of the stomach, there were nodules noted being cystic in nature. Upon palpation of the pancreas, it was noted to be hard and firm. At this time, mobilization was continued going up the greater curvature towards the spleen in the left upper quadrant. At this time, I was called back by Pathology, and the pathology read back adenocarcinoma. At this time since the metastatic cancer was deemed, the procedure was then aborted due to the patient's being unresectable. At this time, the 5-mm ports were removed under direct visualization. No bleeding was noted from the port site. The abdomen was then allowed to collapse safely, and umbilical port was then removed. All skin was closed with a 4-0 Monocryl in an interrupted fashion and a total of four incisions. Sterile dressing was applied using Steri-Strips and single Ioban dressing. The patient was then extubated to Ventimask and taken to the postanesthesia care unit in stable condition. All counts were correct at the end of the case. Dr. Valle was present and participated in all aspects of this case. Rc Cyr DO Adam Valle M.D. DOMO
[2018-10-12 08:10] LABS: BASO % 0.4 % (0.0-2.0); HEMOGLOBIN 9.4 g/dL (11.0-16.0); LYMPH # 0.7 K/uL (1.0-4.3); LYMPH % 7.7 % (20.0-40.0); MEAN CELL VOLUME 76.8 fL (81.0-99.0); MEAN CORPUSCULAR HEMOGLOBIN 24.1 pg (27.0-31.0); MEAN CORPUSCULAR HGB CONC 31.4 g/dL (33.0-37.0); MEAN PLATELET VOLUME 8.5 fL (7.2-11.7); MONO # 0.9 K/uL (0.0-0.8); MONO % 9.2 % (0.0-10.0); NEUT % 82.7 % (50.0-75.0); PLATELET COUNT 335 K/uL (130-400); RBC 3.89 Mil/uL (3.80-5.20); RED CELL DISTRIBUTION WIDTH 21.9 % (11.5-14.5); WHITE BLOOD COUNT 9.7 K/uL (4.8-10.8)
[2018-10-12] MEDS: Fluticasone-Vilanterol 100/25mcg Diskus INH SCH (08:11)
[2018-10-12] MEDS: (Novolog) Insulin Aspart, Recombinant 100 u/ml 10 ml vial SC SCH ×7 (08:23→22:00)
[2018-10-12 08:26] LABS: ALB/GLOB RATIO 1.3 (1.0-2.1); ALBUMIN 3.1 g/dL (3.5-5.0); ALT/SGPT 111 U/L (9-52); AST/SGOT 47 U/L (14-36); BLOOD UREA NITROGEN 30 mg/dL (7-17); CALCIUM 9.1 mg/dl (8.6-10.4); GFR NON-AFRICAN AMERICAN > 60
[2018-10-12 08:53] LABS: ANISOCYTOSIS SLIGHT; HYPOCHROMIC SLIGHT; LYMPHOCYTE 9 % (20-40); MONOCYTE 8 % (0-10); MYELOCYTE 2 % (0-0); NEUTROPHIL 81 % (50-75); PLATELET ESTIMATE NORMAL (NORMAL); POIKILOCYTOSIS SLIGHT; TARGET CELLS SLIGHT; TEARDROP CELLS SLIGHT; TOTAL CELLS COUNTED 100
[2018-10-12 08:54] LABS: MICROCYTOSIS SLIGHT
[2018-10-12] MEDS: Pantoprazole 40 mg EC Tab PO SCH (10:31)
[2018-10-12] MEDS: Magnesium Oxide 400 mg Tab UD PO SCH ×2 (10:31→17:58)
[2018-10-12] MEDS: Saccharomyces Boulardi 250 mg Cap PO SCH ×2 (10:32→21:18)
[2018-10-12] MEDS: Potassium Chloride 20 mEq ER Tab PO SCH (10:32)
[2018-10-12] MEDS: Multivitamin Vitamin B Complex (Nephro-Vite) Tab PO SCH (10:32)
[2018-10-12] MEDS: diltiaZEM 180 mg/24 Hours CD Cap PO SCH ×3 (10:37→17:58)
[2018-10-12] MEDS: Sodium Chloride 0.9% 1,000 ML IV SCH (15:02)
--- NOTE | 2018-10-12 15:05 | CP.PCM.PN ---
Subjective - Date & Time of Evaluation Date of Evaluation: 10/12/18 Time of Evaluation: 10:30 - Subjective Subjective: Medicine note ( Dr. Gutierres's service) Patient was seen and examined at bedside with daughter present. Patient states that she is trying her best to remain positive. Patient and daughter were made aware of findings of diagnostic laparoscopic (10/11/18). Patient states that she understood, although sad she wants to remain positive. Currently, patient denies any discomfort at the moment. Objective - Vital Signs/Intake and Output Vital Signs (last 24 hours): Temp Pulse Resp BP Pulse Ox 97.9 F 132 H 18 128/84 94 L 10/12/18 07:00 10/12/18 14:07 10/12/18 07:00 10/12/18 14:07 10/12/18 07:00 Intake and Output: 10/12/18 10/12/18 06:59 18:59 Intake Total 550 Output Total 1400 Balance -1400 550 - Medications Medications: Current Medications Acetaminophen (Tylenol 325mg Tab) 650 mg PO Q4 PRN PRN Reason: Pain, Mild (1-3) Last Admin: 09/29/18 12:10 Dose: 650 mg Colchicine (Colocrys) 0.6 mg PO BID [facility] Last Admin: 10/12/18 10:31 Dose: 0.6 mg Cyclobenzaprine HCl (Flexeril) 5 mg PO TID [facility] Last Admin: 10/12/18 14:06 Dose: Not Given Dextrose (Dextrose 50% Inj) 0 ml IV STAT PRN; Protocol PRN Reason: Hypoglycemia Protocol Dextrose (Glutose 15) 0 gm PO ONCE PRN; Protocol PRN Reason: Hypoglycemia Protocol Diazepam (Valium) 5 mg PO BID PRN PRN Reason: Anxiety Last Admin: 10/12/18 12:47 Dose: 5 mg Dicyclomine HCl (Bentyl) 20 mg PO TID [facility] Last Admin: 10/12/18 14:04 Dose: 20 mg Diltiazem HCl (Cardizem Cd) 180 mg PO TID [facility] Last Admin: 10/12/18 14:04 Dose: 180 mg Ergocalciferol (Drisdol 50,000 Intl Units Cap) 1 cap PO Q7D [facility] Last Admin: 10/11/18 21:21 Dose: 1 cap Ferrous Gluconate (Fergon) 324 mg PO TIDCC [facility] Last Admin: 10/12/18 12:47 Dose: 324 mg Fluticasone/Vilanterol (Breo Ellipta 100-25 Mcg Inh) 1 puff INH RQ24 [facility] Last Admin: 10/12/18 08:11 Dose: 1 puff Furosemide (Lasix) 20 mg PO DAILY [facility] Last Admin: 10/12/18 10:31 Dose: 20 mg Gabapentin (Neurontin) 300 mg PO HS [facility] Last Admin: 10/11/18 21:20 Dose: 300 mg Glipizide (Glucotrol) 10 mg PO BID [facility] Last Admin: 10/12/18 10:32 Dose: 10 mg Glucagon (Glucagen Diagnostic Kit) 0 mg IM STAT PRN; Protocol PRN Reason: Hypoglycemia Protocol Metronidazole (Flagyl) 500 mg in 100 mls @ 100 mls/hr IVPB Q8H [facility]; Protocol Last Admin: 10/12/18 06:52 Dose: 100 mls/hr Sodium Chloride (Sodium Chloride 0.9%) 1,000 mls @ 60 mls/hr IV .[id number] [facility] Last Admin: 10/11/18 19:14 Dose: Not Given Insulin Aspart (Novolog) 0 unit SC ACHS [facility]; Protocol Last Admin: 10/12/18 12:26 Dose: 6 units Insulin Aspart (Novolog) 10 unit SC AC [facility] Last Admin: 10/12/18 12:26 Dose: 10 units Insulin Glargine (Lantus) 24 unit SC HS [facility] Last Admin: 10/11/18 21:20 Dose: 24 unit Levothyroxine Sodium (Synthroid) 100 mcg PO DAILY@0630 [facility] Last Admin: 10/12/18 06:52 Dose: 100 mcg Lisinopril (Zestril) 10 mg PO DAILY [facility] Last Admin: 10/03/18 10:00 Dose: 10 mg Magnesium Oxide (Mag-Ox) 400 mg PO BID [facility] Last Admin: 10/12/18 10:31 Dose: 400 mg Nystatin (Nystop Topical Powder) 1 applic TOP BID [facility] Last Admin: 10/12/18 10:34 Dose: Not Given Oxycodone/Acetaminophen (Percocet 5/325 Mg Tab) 2 tab PO Q6H PRN PRN Reason: Pain, severe (8-10) Stop: 10/12/18 19:15 Last Admin: 10/11/18 21:24 Dose: 2 tab Pantoprazole Sodium (Protonix Ec Tab) 40 mg PO DAILY [facility] Last Admin: 10/12/18 10:31 Dose: 40 mg Potassium Chloride (K-Dur 20 Meq Er Tab) 20 meq PO DAILY [facility] Last Admin: 10/12/18 10:32 Dose: 20 meq Prednisone (Prednisone Tab) 10 mg PO DAILY [facility] Last Admin: 10/12/18 10:31 Dose: 10 mg Rivaroxaban (Xarelto) 20 mg PO DAILY [facility] Last Admin: 10/12/18 10:31 Dose: 20 mg Saccharomyces Boulardii (Florastor) 250 mg PO Q12 [facility] Last Admin: 10/12/18 10:32 Dose: 250 mg Sertraline HCl (Zoloft) 50 mg PO DAILY [facility] Last Admin: 10/12/18 10:31 Dose: 50 mg Sitagliptin Phosphate (Januvia) 100 mg PO DAILY [facility] Last Admin: 10/12/18 10:31 Dose: 100 mg Trazodone HCl (Desyrel) 50 mg PO HS [facility] Last Admin: 10/11/18 21:21 Dose: 50 mg Trimethobenzamide HCl (Tigan) 200 mg IM Q8 PRN PRN Reason: Nausea/Vomiting Vitamin B Complex/Vit C/Folic Acid (Nephro-Lavinia) 1 tab PO DAILY [facility] Last Admin: 10/12/18 10:32 Dose: 1 tab - Labs Labs: 10/12/18 08:03 10/12/18 08:03 PT 11.0 SECONDS (9.7-12.2) 10/10/18 07:28 INR 1.0 10/10/18 07:28 APTT 25 SECONDS (21-34) 10/10/18 07:28 - Constitutional Appears: No Acute Distress - Head Exam Head Exam: ATRAUMATIC - Eye Exam Eye Exam: EOMI, Normal appearance - ENT Exam ENT Exam: Mucous Membranes Moist - Respiratory Exam Respiratory Exam: Clear to Ausculation Bilateral, NORMAL BREATHING PATTERN. absent: Prolonged Expiratory Phase, Rhonchi, Wheezes - Cardiovascular Exam Cardiovascular Exam: REGULAR RHYTHM, +S1. absent: Murmur - GI/Abdominal Exam Additional comments: s/p Diagonsitic Laparoscopy and Liver Biopsy POD # 1. Incision is clean, dry and intact - Extremities Exam Extremities Exam: Normal Inspection. absent: Calf Tenderness, Pedal Edema - Neurological Exam Neurological Exam: Alert, Awake, Oriented x3 - Psychiatric Exam Psychiatric exam: Anxious, Flat Affect - Skin Skin Exam: Normal Color Assessment and Plan (1) Pancreatic mass Assessment & Plan: Consultations: - Surgery Dr. Bright; help appreciated - S/p Diagnostic laparoscopy and liver biopsy, POD # 1 * Findings: Metastasis to the liver, grossly single nodule. Cystic lesion and harden pancreas. * F/u up pathology results from liver biopsy Labs and imaging: - CEA: 42.5, CA19-9: 1980, CA125: 36.2 - Abdomen/Pelvic CT: Heterogeneous hyperdense pancreatic mass measuring approximately 2.7 x 2.5 cm at the pancreatic body/tail. Ectatic dilated pancreatic duct. Additional cystic heterogeneous focus measuring approximately 15 x 14 mm is noted at the superior aspect of the pancreas. Appearance worrisome for malignant neoplasm. Wall thickening involving the 2nd portion of the duodenum of uncertain significance; considerations include infectious, inflammatory, or malignant etiologies. Correlate clinically and recommend further evaluation with direct visualization if indicated. Small pelvic free fluid. Status: Acute (2) COPD (chronic obstructive pulmonary disease) Assessment & Plan: - Breo Ellipta 100-25mcg 1 Puff daily - Duonebs Q4h PRN for shortness of breath Status: Acute (3) Diabetes mellitus Assessment & Plan: Consultation: - Endocrinology, Dr. Dickson * Help appreciated HgbA1C (09/07/18): 9.0 Accuchecks ISS- Medium dose Aspart 10 units AC Glargine 24units SC HS Glipizide 10mg PO BID Januvia 100mg PO daily Gabapentin 300mg PO HS Hypoglycemia protocol Status: Acute (4) Acute kidney injury Assessment & Plan: - Continue fluids at 60mls/hr - Decreased Lasix 20mg PO - Held Lisinopril - Nephrovite 1 tab PO daily - Monitor Status: Acute (5) HTN (hypertension) Assessment & Plan: - Lisinopril 10mg PO daily (Held due to KARMA) - Cardizem 180mg PO TID Status: Chronic (6) Fibromyalgia Assessment & Plan: - Home medication: Diazepam 5mg PO BID - Flexeril 5mg PO TID (Holding parameters- hold if sleeping/sedated, hypotension) - Percocet 5/325mg 2 tab Q6H prn for pain - Gabapentin 300mg PO HS Status: Chronic (7) Hypothyroid Assessment & Plan: - Continue Synthroid 100mcg PO daily - TSH/Free T4: 9.5/0.30 Status: Acute (8) History of DVT (deep vein thrombosis) Assessment & Plan: - Continue Xarelto 20mg PO daily (Held for Surgery, 10/11/18) Status: Acute (9) Closed fracture of right proximal tibia Assessment & Plan: - Repeat tibia/fibula x ray showed Radiographic manifestations of continued healing proximal right tibial fracture - Orthopedic surgery consulted, Dr. Hernandez; help appreciated - Per ortho: continue well padded knee immobilizer; non operative; recommends PT/OT, NWB, VTE proph, and to f/u with Dr. Hernandez 1-2 weeks upon d/c Status: Acute (10) Gout Assessment & Plan: Colchicine 0.6mg PO BID Status: Acute (11) Anemia Assessment & Plan: H/H stable Ferugon 324mg PO TIDCC Status: Acute (12) Intertrigo Assessment & Plan: -Redness us Groin Area 2/2 to incontinence -Started Nystatin Powder BID Status: Acute (13) Ulcer Assessment & Plan: Stage 1 Gluteal Ulcer - Patient has been spraying hydrogen peroxide on it - Will consult Nursing Wound Care, - Turn Q2H - Consider Air Mattress Status: Acute (14) Tachycardia Assessment & Plan: - Cardiology consulted, Dr. Jeong; F/U Recs. - Increased Cardizem to 180mg PO TID - Will continue to monitor Status: Acute (15) Prophylactic measure Assessment & Plan: - Protonix 40mg PO daily, Probiotics - Xarelto 20mg PO daily (Held) - PT/OT - Palliative care consulted to discuss goals of care - Case management consulted for discharge planning to [facility] after Surgery. All plans and management discussed with Dr. Gutierres Status: Acute (16) Adrenal insufficiency Assessment & Plan: - On prednisone 10mg PO daily Status: Acute (17) Depression Assessment & Plan: - Consulted psychiatry, Dr. Dexter, recs appreciated. - Per psychiatry, Started zoloft 50mg po daily (consider tapering up to 100mg), trazodone 50mg po hs - Valium 5mg po bid prn Status: Acute (18) Prophylactic measure Assessment & Plan: - Protonix 40mg PO daily, Probiotics - Xarelto 20mg PO daily (Held) - PT/OT - Palliative care consulted to discuss goals of care - Case management consulted for discharge planning to [facility] All plans and management discussed with Dr. Gutierres Status: Acute
[2018-10-12] MEDS: Oxycodone/Acetaminophen 5/325 mg Tab PO PRN (18:05)
[2018-10-12] MEDS: (Lantus) Insulin Glargine, Recombinant SC SCH (21:19)
[2018-10-13] MEDS ORDERED: Oxycodone/Acetaminophen 5/325 mg Tab PO ONE (00:34)
[2018-10-13] MEDS: Levothyroxine 100 MCG TAB PO SCH (06:34)
[2018-10-13] MEDS: Sodium Chloride 0.9% 1,000 ML IV SCH ×2 (06:36→17:56)
--- NOTE | 2018-10-13 07:30 | CP.PCM.PN ---
Subjective - Date & Time of Evaluation Date of Evaluation: 10/13/18 Time of Evaluation: 08:00 - Subjective Subjective: Medicine Progress Note for Dr. Gutierres's service: Patient was seen and examined at bedside in the AM. Patient states that she does not feel great but she is trying her best to remain positive. Currently, patient denies any discomfort at the moment. Objective - Vital Signs/Intake and Output Vital Signs (last 24 hours): Temp Pulse Resp BP Pulse Ox 98.1 F 122 H 20 134/76 95 10/12/18 23:20 10/13/18 01:20 10/12/18 23:20 10/12/18 23:20 10/12/18 23:20 Intake and Output: 10/13/18 10/13/18 06:59 18:59 Intake Total 1280 Output Total 1250 Balance 30 - Medications Medications: Current Medications Acetaminophen (Tylenol 325mg Tab) 650 mg PO Q4 PRN PRN Reason: Pain, Mild (1-3) Last Admin: 09/29/18 12:10 Dose: 650 mg Colchicine (Colocrys) 0.6 mg PO BID [facility] Last Admin: 10/12/18 17:59 Dose: 0.6 mg Cyclobenzaprine HCl (Flexeril) 5 mg PO TID [facility] Last Admin: 10/12/18 17:58 Dose: 5 mg Dextrose (Dextrose 50% Inj) 0 ml IV STAT PRN; Protocol PRN Reason: Hypoglycemia Protocol Dextrose (Glutose 15) 0 gm PO ONCE PRN; Protocol PRN Reason: Hypoglycemia Protocol Diazepam (Valium) 5 mg PO BID PRN PRN Reason: Anxiety Last Admin: 10/12/18 12:47 Dose: 5 mg Dicyclomine HCl (Bentyl) 20 mg PO TID [facility] Last Admin: 10/12/18 17:59 Dose: 20 mg Diltiazem HCl (Cardizem Cd) 180 mg PO TID [facility] Last Admin: 10/12/18 17:58 Dose: 180 mg Ergocalciferol (Drisdol 50,000 Intl Units Cap) 1 cap PO Q7D [facility] Last Admin: 10/11/18 21:21 Dose: 1 cap Ferrous Gluconate (Fergon) 324 mg PO TIDCC [facility] Last Admin: 10/12/18 17:58 Dose: 324 mg Fluticasone/Vilanterol (Breo Ellipta 100-25 Mcg Inh) 1 puff INH RQ24 [facility] Last Admin: 10/12/18 08:11 Dose: 1 puff Furosemide (Lasix) 20 mg PO DAILY [facility] Last Admin: 10/12/18 10:31 Dose: 20 mg Gabapentin (Neurontin) 300 mg PO HS [facility] Last Admin: 10/12/18 21:18 Dose: 300 mg Glipizide (Glucotrol) 10 mg PO BID [facility] Last Admin: 10/12/18 17:58 Dose: 10 mg Glucagon (Glucagen Diagnostic Kit) 0 mg IM STAT PRN; Protocol PRN Reason: Hypoglycemia Protocol Sodium Chloride (Sodium Chloride 0.9%) 1,000 mls @ 60 mls/hr IV .[id number] [facility] Last Admin: 10/13/18 06:36 Dose: 60 mls/hr Insulin Aspart (Novolog) 0 unit SC [facility]; Protocol Last Admin: 10/12/18 22:00 Dose: Not Given Insulin Aspart (Novolog) 10 unit SC AC [facility] Last Admin: 10/12/18 18:09 Dose: 10 units Insulin Glargine (Lantus) 24 unit SC HS [facility] Last Admin: 10/12/18 21:19 Dose: 24 unit Levothyroxine Sodium (Synthroid) 100 mcg PO DAILY@0630 [facility] Last Admin: 10/13/18 06:34 Dose: 100 mcg Lisinopril (Zestril) 10 mg PO DAILY [facility] Last Admin: 10/03/18 10:00 Dose: 10 mg Magnesium Oxide (Mag-Ox) 400 mg PO BID [facility] Last Admin: 10/12/18 17:58 Dose: 400 mg Nystatin (Nystop Topical Powder) 1 applic TOP BID [facility] Last Admin: 10/12/18 18:06 Dose: Not Given Pantoprazole Sodium (Protonix Ec Tab) 40 mg PO DAILY [facility] Last Admin: 10/12/18 10:31 Dose: 40 mg Potassium Chloride (K-Dur 20 Meq Er Tab) 20 meq PO DAILY [facility] Last Admin: 10/12/18 10:32 Dose: 20 meq Prednisone (Prednisone Tab) 10 mg PO DAILY [facility] Last Admin: 10/12/18 10:31 Dose: 10 mg Rivaroxaban (Xarelto) 20 mg PO DAILY [facility] Last Admin: 10/12/18 10:31 Dose: 20 mg Saccharomyces Boulardii (Florastor) 250 mg PO Q12 [facility] Last Admin: 10/12/18 21:18 Dose: 250 mg Sertraline HCl (Zoloft) 50 mg PO DAILY [facility] Last Admin: 10/12/18 10:31 Dose: 50 mg Sitagliptin Phosphate (Januvia) 100 mg PO DAILY [facility] Last Admin: 10/12/18 10:31 Dose: 100 mg Trazodone HCl (Desyrel) 50 mg PO HS [facility] Last Admin: 10/12/18 21:18 Dose: 50 mg Trimethobenzamide HCl (Tigan) 200 mg IM Q8 PRN PRN Reason: Nausea/Vomiting Vitamin B Complex/Vit C/Folic Acid (Nephro-Lavinia) 1 tab PO DAILY [facility] Last Admin: 10/12/18 10:32 Dose: 1 tab - Labs Labs: 10/12/18 08:03 10/12/18 08:03 PT 11.0 SECONDS (9.7-12.2) 10/10/18 07:28 INR 1.0 10/10/18 07:28 APTT 25 SECONDS (21-34) 10/10/18 07:28 - Constitutional Appears: No Acute Distress, Chronically Ill - Head Exam Head Exam: ATRAUMATIC, NORMAL INSPECTION - Eye Exam Eye Exam: EOMI, Normal appearance - ENT Exam ENT Exam: Mucous Membranes Moist - Respiratory Exam Respiratory Exam: NORMAL BREATHING PATTERN - Cardiovascular Exam Cardiovascular Exam: REGULAR RHYTHM, +S1, +S2 - GI/Abdominal Exam GI & Abdominal Exam: Soft, Normal Bowel Sounds - Extremities Exam Extremities Exam: Normal Inspection - Neurological Exam Neurological Exam: Alert, Awake, Oriented x3 - Psychiatric Exam Psychiatric exam: Flat Affect Assessment and Plan - Assessment and Plan (Free Text) Assessment: 63 year old female with PMHx of COPD, Pancreatic Mass, Chronic Diastolic CHF, Hypertension, DM II, Fibromyalgia, Adrenal Insufficiency, Hypothyroidism, Hx of DVT, Gout, Depression, and Current Closed Fracture of Right proximal tibia admitted for evaluation and treatment of COPD exacerbation. Hospital Course Complicated with episodes of hypotension. Plan: Pancreatic Cancer with Metastasis to the Liver - Surgical Intervention planned for Wednesday10/11/18. - Surgery consulted, Dr. Bright; help appreciated - s/p Diagnostic laparoscopy possible Distal Pancreatectomy scheduled for 10/11/18 * Findings: Metastasis to the liver, grossly single nodule. Cystic lesion and harden pancreas. * F/u up pathology results from liver biopsy - CEA: 42.5, CA19-9: 1980, CA125: 36.2 - Abdomen/Pelvic CT: Heterogeneous hyperdense pancreatic mass measuring approximately 2.7 x 2.5 cm at the pancreatic body/tail. Ectatic dilated pancreatic duct. Additional cystic heterogeneous focus measuring approximately 15 x 14 mm is noted at the superior aspect of the pancreas. Appearance worrisome for malignant neoplasm. Wall thickening involving the 2nd portion of the duodenum of uncertain significance; considerations include infectious, inflammatory, or malignant etiologies. Correlate clinically and recommend further evaluation with direct visualization if indicated. Small pelvic free fluid. COPD Exacerbation - Continue home medication: Breo - Duonebs Q4h prn Acute Kidney Injury (Resolved) - Continue fluids at 75mls/hr - Decreased Lasix 20mg PO - Held Lisinopril - Monitor Hypotension (resolved) - Continue to monitor C. Diff During Previous Admission - Completed course of Vancomycin - Repeat Cdiff negative Tachycardia (Acute) - Cardiology consulted, Dr. Jeong; F/U Recs. - Increased Cardizem to 180mg PO TID - Will continue to monitor Stage 1 Gluteal Ulcer - Patient has been spraying hydrogen peroxide on it - Will consult Nursing Wound Care, - Turn Q2H - Consider Air Mattress Urinary Tract Infection -Urine culture growing proteus mirabilis, sensitivities reviewed -Was given Merrem 1 gm x 1 dose -ID on consult, Dr Little, help appreciated -Repeat UA was negative -Will monitor off antibiotics Intertrigo -Redness us Groin Area 2/2 to incontinence -Started Nystatin Powder BID Hypertension - Lisinopril 10mg PO daily - Cardizem 180mg PO TID Diabetes Mellitus - Accuchecks, Hypoglycemia protocol - HgA1c 9.3 (01/2018); repeat A1c 9.0 - Insulin sliding scale - medium - Continue home medications: Januvia 100 mg PO daily, Glipizide 10mg PO BID, Gabapentin 300mg PO HS - Novolog 10 u SC AC - Lantus 24 units HS - Endocrinology consult. Dr Dickson. recs appreciated. Fibromyalgia - Home medication: Diazepam 5mg PO BID - Flexeril 5mg PO TID (Holding parameters- hold if sleeping/sedated, hypotension) - Percocet 5/325mg 2 tab Q6H prn for pain - Gabapentin 300mg PO HS Adrenal Insufficiency - On prednisone 10mg PO daily Hypothyroidism - Continue Synthroid 100mcg PO daily - TSH/Free T4: 9.5/0.30 Hypokalemia -repleted -continue to monitor and replete as needed History of DVT/PE - Continue Xarelto 20mg PO daily Gout - Continue Colchicine Depression - Consulted psychiatry, Dr. Dexter, recs appreciated. - Per psychiatry, Started zoloft 50mg po daily (consider tapering up to 100mg), trazodone 50mg po hs - Valium 5mg po bid prn Closed fracture of right proximal tibia - Repeat tibia/fibula x ray showed Radiographic manifestations of continued healing proximal right tibial fracture - Orthopedic surgery consulted, Dr. Hernandez; help appreciated - f/u if patient can place weight on her right lower extremity Prophylactic Measures - Protonix 40mg PO daily, Probiotics - Xarelto 20mg PO daily - PT/OT - Palliative care consulted to discuss goals of care Disposition: Patient to be discharged to [facility]. Pending orth and PT reccs Case discussed with Dr. Nenita Martinez PGY-2
[2018-10-13 07:36] LABS: BASO % 0.3 % (0.0-2.0); EOS % 0.4 % (0.0-4.0); HEMOGLOBIN 9.4 g/dL (11.0-16.0); LYMPH # 1.9 K/uL (1.0-4.3); LYMPH % 18.3 % (20.0-40.0); MEAN CELL VOLUME 77.3 fL (81.0-99.0); MEAN CORPUSCULAR HEMOGLOBIN 23.3 pg (27.0-31.0); MEAN CORPUSCULAR HGB CONC 30.2 g/dL (33.0-37.0); MONO % 10.2 % (0.0-10.0); NEUT # 7.2 K/uL (1.8-7.0); NEUT % 70.8 % (50.0-75.0); NRBC % 0.1 % (0.0-2.0); RBC 4.02 Mil/uL (3.80-5.20); RED CELL DISTRIBUTION WIDTH 21.9 % (11.5-14.5); WHITE BLOOD COUNT 10.2 K/uL (4.8-10.8)
[2018-10-13 07:44] LABS: ALB/GLOB RATIO 1.4 (1.0-2.1); ALBUMIN 3.2 g/dL (3.5-5.0); ALT/SGPT 98 U/L (9-52); AST/SGOT 54 U/L (14-36); BLOOD UREA NITROGEN 31 mg/dL (7-17); CALCIUM 8.7 mg/dl (8.6-10.4); GFR NON-AFRICAN AMERICAN > 60
[2018-10-13] MEDS: Fluticasone-Vilanterol 100/25mcg Diskus INH SCH (08:09)
[2018-10-13] MEDS: (Novolog) Insulin Aspart, Recombinant 100 u/ml 10 ml vial SC SCH ×7 (08:23→21:56)
[2018-10-13] MEDS: Saccharomyces Boulardi 250 mg Cap PO SCH ×2 (09:22→21:55)
[2018-10-13] MEDS: Multivitamin Vitamin B Complex (Nephro-Vite) Tab PO SCH (09:22)
[2018-10-13] MEDS: Pantoprazole 40 mg EC Tab PO SCH (09:22)
[2018-10-13] MEDS: diltiaZEM 180 mg/24 Hours CD Cap PO SCH ×3 (09:23→17:51)
[2018-10-13] MEDS: Potassium Chloride 20 mEq ER Tab PO SCH (09:23)
[2018-10-13] MEDS: Magnesium Oxide 400 mg Tab UD PO SCH ×2 (09:23→17:51)
[2018-10-13] MEDS: Oxycodone/Acetaminophen 5/325 mg Tab PO PRN (16:27)
--- NOTE | 2018-10-13 18:06 | CP.PCM.CON ---
History of Present Illness - History of Present Illness History of Present Illness: Orthopedic consultation Dr. Hernandez 63F known to service approx 9 weeks s/p right proximal tibia fracture, treated conservatively with knee immobilizer. Currently no immobilizer. She has been doing only bed mobility. She still complains of a little pain in her knee. Plan is to return to rehab. Denies numbness/tingling. Review of Systems - Review of Systems All systems: reviewed and no additional remarkable complaints except - Constitutional Constitutional: As Per HPI - Musculoskeletal Musculoskeletal: As Per HPI - Hematologic/Lymphatic Hematologic: absent: As Per HPI, Easy Bleeding, Easy Bruising, Lymphadenopathy, Other Past Patient History - Infectious Disease Hx of Infectious Diseases: None, C.diff - Past Medical History & Family History Past Medical History?: Yes Past Family History: Reviewed and not pertinent - Past Social History Smoking Status: Never Smoked - CARDIAC Hx Pacemaker: No - PULMONARY Hx Asthma: Yes Hx Chronic Obstructive Pulmonary Disease (COPD): Yes Hx Pulmonary Embolism: Yes (on Coumadin W/ IVC filter) - NEUROLOGICAL HX Cerebrovascular Accident: Yes - HEENT Hx HEENT Problems: No - RENAL Hx Chronic Kidney Disease: No - ENDOCRINE/METABOLIC Hx Hypothyroidism: Yes - HEMATOLOGICAL/ONCOLOGICAL Hx Cancer: Yes (Pancreatic) - INTEGUMENTARY Hx Dermatological Problems: No - MUSCULOSKELETAL/RHEUMATOLOGICAL Hx Arthritis: Yes (R THR /ORIF) Hx Fractures: Yes (R HIP) Hx Rheumatoid Arthritis: Yes - GASTROINTESTINAL Hx Gall Bladder Disease: Yes - GENITOURINARY/GYNECOLOGICAL Hx Genitourinary Disorders: Yes Hx Urinary Tract Infection: Yes - PSYCHIATRIC Hx Anxiety: Yes Hx Depression: Yes Hx Substance Use: No - SURGICAL HISTORY Hx Mastectomy: No - ANESTHESIA Hx Anesthesia: Yes Hx Anesthesia Reactions: Yes (DIFFICULTY BREATHING) Meds Allergies/Adverse Reactions: Allergies Allergy/AdvReac Type Severity Reaction Status Date / Time No Known Allergies Allergy Verified 09/01/18 17:29 - Medications Medications: Current Medications Acetaminophen (Tylenol 325mg Tab) 650 mg PO Q4 PRN PRN Reason: Pain, Mild (1-3) Last Admin: 09/29/18 12:10 Dose: 650 mg Colchicine (Colocrys) 0.6 mg PO BID [facility] Last Admin: 10/13/18 17:57 Dose: 0.6 mg Cyclobenzaprine HCl (Flexeril) 5 mg PO TID [facility] Last Admin: 10/13/18 17:51 Dose: 5 mg Dextrose (Dextrose 50% Inj) 0 ml IV STAT PRN; Protocol PRN Reason: Hypoglycemia Protocol Dextrose (Glutose 15) 0 gm PO ONCE PRN; Protocol PRN Reason: Hypoglycemia Protocol Diazepam (Valium) 5 mg PO BID PRN PRN Reason: Anxiety Last Admin: 10/12/18 12:47 Dose: 5 mg Dicyclomine HCl (Bentyl) 20 mg PO TID [facility] Last Admin: 10/13/18 13:23 Dose: 20 mg Diltiazem HCl (Cardizem Cd) 180 mg PO TID [facility] Last Admin: 10/13/18 17:51 Dose: 180 mg Ergocalciferol (Drisdol 50,000 Intl Units Cap) 1 cap PO Q7D [facility] Last Admin: 10/11/18 21:21 Dose: 1 cap Ferrous Gluconate (Fergon) 324 mg PO TIDCC [facility] Last Admin: 10/13/18 16:27 Dose: 324 mg Fluticasone/Vilanterol (Breo Ellipta 100-25 Mcg Inh) 1 puff INH RQ24 [facility] Last Admin: 10/13/18 08:09 Dose: 1 puff Furosemide (Lasix) 20 mg PO DAILY [facility] Last Admin: 10/13/18 09:22 Dose: 20 mg Gabapentin (Neurontin) 300 mg PO HS [facility] Last Admin: 10/12/18 21:18 Dose: 300 mg Glipizide (Glucotrol) 10 mg PO BID [facility] Last Admin: 10/13/18 17:51 Dose: 10 mg Glucagon (Glucagen Diagnostic Kit) 0 mg IM STAT PRN; Protocol PRN Reason: Hypoglycemia Protocol Sodium Chloride (Sodium Chloride 0.9%) 1,000 mls @ 60 mls/hr IV .[id number] [facility] Last Admin: 10/13/18 17:56 Dose: 60 mls/hr Insulin Aspart (Novolog) 0 unit SC ACHS [facility]; Protocol Last Admin: 10/13/18 17:15 Dose: 4 units Insulin Aspart (Novolog) 10 unit SC AC [facility] Last Admin: 10/13/18 17:15 Dose: 10 units Insulin Glargine (Lantus) 24 unit SC HS [facility] Last Admin: 10/12/18 21:19 Dose: 24 unit Levothyroxine Sodium (Synthroid) 100 mcg PO DAILY@0630 [facility] Last Admin: 10/13/18 06:34 Dose: 100 mcg Lisinopril (Zestril) 10 mg PO DAILY [facility] Last Admin: 10/03/18 10:00 Dose: 10 mg Magnesium Oxide (Mag-Ox) 400 mg PO BID [facility] Last Admin: 10/13/18 17:51 Dose: 400 mg Nystatin (Nystop Topical Powder) 1 applic TOP BID [facility] Last Admin: 10/12/18 18:06 Dose: Not Given Oxycodone/Acetaminophen (Percocet 5/325 Mg Tab) 2 tab PO Q6H PRN PRN Reason: Pain, severe (8-10) Stop: 10/16/18 16:08 Last Admin: 10/13/18 16:27 Dose: 2 tab Pantoprazole Sodium (Protonix Ec Tab) 40 mg PO DAILY [facility] Last Admin: 10/13/18 09:22 Dose: 40 mg Potassium Chloride (K-Dur 20 Meq Er Tab) 20 meq PO DAILY [facility] Last Admin: 10/13/18 09:23 Dose: 20 meq Prednisone (Prednisone Tab) 10 mg PO DAILY [facility] Last Admin: 10/13/18 09:22 Dose: 10 mg Rivaroxaban (Xarelto) 20 mg PO DAILY [facility] Last Admin: 10/13/18 09:23 Dose: 20 mg Saccharomyces Boulardii (Florastor) 250 mg PO Q12 [facility] Last Admin: 10/13/18 09:22 Dose: 250 mg Sertraline HCl (Zoloft) 50 mg PO DAILY [facility] Last Admin: 10/13/18 09:22 Dose: 50 mg Sitagliptin Phosphate (Januvia) 100 mg PO DAILY [facility] Last Admin: 10/13/18 09:22 Dose: 100 mg Trazodone HCl (Desyrel) 50 mg PO HS [facility] Last Admin: 10/12/18 21:18 Dose: 50 mg Trimethobenzamide HCl (Tigan) 200 mg IM Q8 PRN PRN Reason: Nausea/Vomiting Vitamin B Complex/Vit C/Folic Acid (Nephro-Lavinia) 1 tab PO DAILY [facility] Last Admin: 10/13/18 09:22 Dose: 1 tab Physical Exam - Constitutional Appears: Well, No Acute Distress - Head Exam Head Exam: ATRAUMATIC - Expanded Lower Extremities Exam Right Lower Leg Exam: tenderness (TTP to fx site, mild, +DP/PT pulses) Ankle exam: FULL ROM (ankle PF/DF, toes flex/ext) - Neurological Exam Neurological exam: Alert, Oriented x3 - Psychiatric Exam Psychiatric exam: Depressed - Skin Skin Exam: Dry, Intact, Warm Additional comments: resolving ecchymosis Results - Vital Signs Recent Vital Signs: Last Vital Signs Temp 97.5 F L 10/13/18 16:03 Pulse 120 H 10/13/18 16:13 Resp 20 10/13/18 16:03 BP 154/78 H 10/13/18 16:03 Pulse Ox 95 10/13/18 16:03 - Labs Result Diagrams: 10/13/18 07:15 10/13/18 07:15 Labs: Laboratory Results - last 24 hr 10/12/18 10/13/18 10/13/18 21:24 06:19 07:15 WBC 10.2 RBC 4.02 Hgb 9.4 L Hct 31.0 L MCV 77.3 L MCH 23.3 L MCHC 30.2 L RDW 21.9 H Plt Count 338 MPV 9.0 Neut % (Auto) 70.8 Lymph % (Auto) 18.3 L [place] % (Auto) 10.2 H Eos % (Auto) 0.4 Baso % (Auto) 0.3 Neut # (Auto) 7.2 H Lymph # (Auto) 1.9 [place] # (Auto) 1.0 H Eos # (Auto) 0.0 Baso # (Auto) 0.0 Sodium Potassium Chloride Carbon Dioxide Anion Gap BUN Creatinine Est GFR ( Amer) Est GFR (Non-Af Amer) POC Glucose (mg/dL) 156 H 150 H Random Glucose Calcium Phosphorus Magnesium Total Bilirubin AST ALT Alkaline Phosphatase Total Protein Albumin Globulin Albumin/Globulin Ratio 10/13/18 10/13/18 10/13/18 07:15 11:16 16:18 WBC RBC Hgb Hct MCV MCH MCHC RDW Plt Count MPV Neut % (Auto) Lymph % (Auto) [place] % (Auto) Eos % (Auto) Baso % (Auto) Neut # (Auto) Lymph # (Auto) [place] # (Auto) Eos # (Auto) Baso # (Auto) Sodium 136 Potassium 4.4 Chloride 103 Carbon Dioxide 30 Anion Gap 8 L BUN 31 H Creatinine 0.8 Est GFR ( Amer) > 60 Est GFR (Non-Af Amer) > 60 POC Glucose (mg/dL) 257 H 262 H Random Glucose 139 H D Calcium 8.7 Phosphorus 3.2 Magnesium 1.7 Total Bilirubin 0.2 AST 54 H ALT 98 H Alkaline Phosphatase 103 Total Protein 5.5 L Albumin 3.2 L Globulin 2.3 Albumin/Globulin Ratio 1.4 - Impressions Impression: atient Name / ID : STEPHANIE MONROY / [id number] Exam Date : 10/03/2018 15:42:24 ( Approved ) Study Comment : Sex / Age : F / 63Y Creator : Joe Little MD Dictator : Joe Little MD Clay Molder : Director International : Joe Little MD Approver2 : Report Date : 10/03/2018 18:00:38 My Comment : Date of service: 10/03/2018 PROCEDURE: Radiographs of the right tibia and fibula. HISTORY: f/u on fracture COMPARISON: 09/05/2018 right knee radiographs TECHNIQUE: Frontal and lateral views obtained. 2 views obtained. FINDINGS: BONES: Additional callus formation noted indicative of healing nondisplaced fracture. Major fracture fragments are anatomically aligned. JOINT SPACES: Stable degenerative changes primarily affecting the medial compartment. OTHER FINDINGS: None. IMPRESSION: Radiographic manifestations of continued healing proximal right tibial fracture. Assessment & Plan (1) Closed fracture of right proximal tibia Assessment and Plan: Xrays from 10/03 reviewed continued healing and well maintained position of fracture reviewed by Dr. Hernandez, will continue knee immobilizer and 20%foot flat WB with PT cont VTE proph d/w patient and daughter at bedside, patient motivated to be more mobile d/w Dr. Hernandez, agrees with above Status: Acute (2) Vitamin D deficiency Assessment and Plan: cont supp Status: Acute
--- NOTE | 2018-10-13 19:52 | CP.PCM.PN ---
Subjective - Date & Time of Evaluation Date of Evaluation: 10/12/18 Time of Evaluation: 17:00 - Subjective Subjective: Upset about likely cancer to liver Objective - Vital Signs/Intake and Output Vital Signs (last 24 hours): Temp Pulse Resp BP Pulse Ox 97.5 F L 120 H 20 154/78 H 95 10/13/18 16:03 10/13/18 16:13 10/13/18 16:03 10/13/18 16:03 10/13/18 16:03 Intake and Output: 10/13/18 10/14/18 18:59 06:59 Intake Total 480 Output Total 300 Balance 180 - Medications Medications: Current Medications Acetaminophen (Tylenol 325mg Tab) 650 mg PO Q4 PRN PRN Reason: Pain, Mild (1-3) Last Admin: 09/29/18 12:10 Dose: 650 mg Colchicine (Colocrys) 0.6 mg PO BID [facility] Last Admin: 10/13/18 17:57 Dose: 0.6 mg Cyclobenzaprine HCl (Flexeril) 5 mg PO TID [facility] Last Admin: 10/13/18 17:51 Dose: 5 mg Dextrose (Dextrose 50% Inj) 0 ml IV STAT PRN; Protocol PRN Reason: Hypoglycemia Protocol Dextrose (Glutose 15) 0 gm PO ONCE PRN; Protocol PRN Reason: Hypoglycemia Protocol Diazepam (Valium) 5 mg PO BID PRN PRN Reason: Anxiety Last Admin: 10/12/18 12:47 Dose: 5 mg Dicyclomine HCl (Bentyl) 20 mg PO TID [facility] Last Admin: 10/13/18 13:23 Dose: 20 mg Diltiazem HCl (Cardizem Cd) 180 mg PO TID [facility] Last Admin: 10/13/18 17:51 Dose: 180 mg Ergocalciferol (Drisdol 50,000 Intl Units Cap) 1 cap PO Q7D [facility] Last Admin: 10/11/18 21:21 Dose: 1 cap Ferrous Gluconate (Fergon) 324 mg PO TIDCC [facility] Last Admin: 10/13/18 16:27 Dose: 324 mg Fluticasone/Vilanterol (Breo Ellipta 100-25 Mcg Inh) 1 puff INH RQ24 [facility] Last Admin: 10/13/18 08:09 Dose: 1 puff Furosemide (Lasix) 20 mg PO DAILY [facility] Last Admin: 10/13/18 09:22 Dose: 20 mg Gabapentin (Neurontin) 300 mg PO HS [facility] Last Admin: 10/12/18 21:18 Dose: 300 mg Glipizide (Glucotrol) 10 mg PO BID [facility] Last Admin: 10/13/18 17:51 Dose: 10 mg Glucagon (Glucagen Diagnostic Kit) 0 mg IM STAT PRN; Protocol PRN Reason: Hypoglycemia Protocol Sodium Chloride (Sodium Chloride 0.9%) 1,000 mls @ 60 mls/hr IV .[id number] [facility] Last Admin: 10/13/18 17:56 Dose: 60 mls/hr Insulin Aspart (Novolog) 0 unit SC ACHS [facility]; Protocol Last Admin: 10/13/18 17:15 Dose: 4 units Insulin Aspart (Novolog) 10 unit SC AC [facility] Last Admin: 10/13/18 17:15 Dose: 10 units Insulin Glargine (Lantus) 24 unit SC HS [facility] Last Admin: 10/12/18 21:19 Dose: 24 unit Levothyroxine Sodium (Synthroid) 100 mcg PO DAILY@0630 [facility] Last Admin: 10/13/18 06:34 Dose: 100 mcg Lisinopril (Zestril) 10 mg PO DAILY [facility] Last Admin: 10/03/18 10:00 Dose: 10 mg Magnesium Oxide (Mag-Ox) 400 mg PO BID [facility] Last Admin: 10/13/18 17:51 Dose: 400 mg Nystatin (Nystop Topical Powder) 1 applic TOP BID [facility] Last Admin: 10/12/18 18:06 Dose: Not Given Oxycodone/Acetaminophen (Percocet 5/325 Mg Tab) 2 tab PO Q6H PRN PRN Reason: Pain, severe (8-10) Stop: 10/16/18 16:08 Last Admin: 10/13/18 16:27 Dose: 2 tab Pantoprazole Sodium (Protonix Ec Tab) 40 mg PO DAILY [facility] Last Admin: 10/13/18 09:22 Dose: 40 mg Potassium Chloride (K-Dur 20 Meq Er Tab) 20 meq PO DAILY [facility] Last Admin: 10/13/18 09:23 Dose: 20 meq Prednisone (Prednisone Tab) 10 mg PO DAILY [facility] Last Admin: 10/13/18 09:22 Dose: 10 mg Rivaroxaban (Xarelto) 20 mg PO DAILY [facility] Last Admin: 10/13/18 09:23 Dose: 20 mg Saccharomyces Boulardii (Florastor) 250 mg PO Q12 [facility] Last Admin: 10/13/18 09:22 Dose: 250 mg Sertraline HCl (Zoloft) 50 mg PO DAILY [facility] Last Admin: 10/13/18 09:22 Dose: 50 mg Sitagliptin Phosphate (Januvia) 100 mg PO DAILY [facility] Last Admin: 10/13/18 09:22 Dose: 100 mg Trazodone HCl (Desyrel) 50 mg PO HS [facility] Last Admin: 10/12/18 21:18 Dose: 50 mg Trimethobenzamide HCl (Tigan) 200 mg IM Q8 PRN PRN Reason: Nausea/Vomiting Vitamin B Complex/Vit C/Folic Acid (Nephro-Lavinia) 1 tab PO DAILY [facility] Last Admin: 10/13/18 09:22 Dose: 1 tab - Labs Labs: 10/13/18 07:15 10/13/18 07:15 PT 11.0 SECONDS (9.7-12.2) 10/10/18 07:28 INR 1.0 10/10/18 07:28 APTT 25 SECONDS (21-34) 10/10/18 07:28 - Head Exam Head Exam: ATRAUMATIC - Eye Exam Eye Exam: Normal appearance - ENT Exam ENT Exam: Mucous Membranes Dry - Respiratory Exam Respiratory Exam: NORMAL BREATHING PATTERN - Cardiovascular Exam Cardiovascular Exam: +S1, +S2 - GI/Abdominal Exam GI & Abdominal Exam: Normal Bowel Sounds Assessment and Plan (1) Anemia Assessment & Plan: iron deficiency s/p supplementation Status: Acute (2) Pancreatic cancer Assessment & Plan: stage IV liver metastasis noted on laparoscopy f/u path Status: Acute
--- NOTE | 2018-10-13 19:53 | CP.PCM.PN ---
Subjective - Date & Time of Evaluation Date of Evaluation: 10/13/18 Time of Evaluation: 18:00 - Subjective Subjective: Trying to stay in better spirits today. Objective - Vital Signs/Intake and Output Vital Signs (last 24 hours): Temp Pulse Resp BP Pulse Ox 97.5 F L 120 H 20 154/78 H 95 10/13/18 16:03 10/13/18 16:13 10/13/18 16:03 10/13/18 16:03 10/13/18 16:03 Intake and Output: 10/13/18 10/14/18 18:59 06:59 Intake Total 480 Output Total 300 Balance 180 - Medications Medications: Current Medications Acetaminophen (Tylenol 325mg Tab) 650 mg PO Q4 PRN PRN Reason: Pain, Mild (1-3) Last Admin: 09/29/18 12:10 Dose: 650 mg Colchicine (Colocrys) 0.6 mg PO BID [facility] Last Admin: 10/13/18 17:57 Dose: 0.6 mg Cyclobenzaprine HCl (Flexeril) 5 mg PO TID [facility] Last Admin: 10/13/18 17:51 Dose: 5 mg Dextrose (Dextrose 50% Inj) 0 ml IV STAT PRN; Protocol PRN Reason: Hypoglycemia Protocol Dextrose (Glutose 15) 0 gm PO ONCE PRN; Protocol PRN Reason: Hypoglycemia Protocol Diazepam (Valium) 5 mg PO BID PRN PRN Reason: Anxiety Last Admin: 10/12/18 12:47 Dose: 5 mg Dicyclomine HCl (Bentyl) 20 mg PO TID [facility] Last Admin: 10/13/18 13:23 Dose: 20 mg Diltiazem HCl (Cardizem Cd) 180 mg PO TID [facility] Last Admin: 10/13/18 17:51 Dose: 180 mg Ergocalciferol (Drisdol 50,000 Intl Units Cap) 1 cap PO Q7D [facility] Last Admin: 10/11/18 21:21 Dose: 1 cap Ferrous Gluconate (Fergon) 324 mg PO TIDCC [facility] Last Admin: 10/13/18 16:27 Dose: 324 mg Fluticasone/Vilanterol (Breo Ellipta 100-25 Mcg Inh) 1 puff INH RQ24 [facility] Last Admin: 10/13/18 08:09 Dose: 1 puff Furosemide (Lasix) 20 mg PO DAILY [facility] Last Admin: 10/13/18 09:22 Dose: 20 mg Gabapentin (Neurontin) 300 mg PO HS [facility] Last Admin: 10/12/18 21:18 Dose: 300 mg Glipizide (Glucotrol) 10 mg PO BID [facility] Last Admin: 10/13/18 17:51 Dose: 10 mg Glucagon (Glucagen Diagnostic Kit) 0 mg IM STAT PRN; Protocol PRN Reason: Hypoglycemia Protocol Sodium Chloride (Sodium Chloride 0.9%) 1,000 mls @ 60 mls/hr IV .[id number] [facility] Last Admin: 10/13/18 17:56 Dose: 60 mls/hr Insulin Aspart (Novolog) 0 unit SC ACHS [facility]; Protocol Last Admin: 10/13/18 17:15 Dose: 4 units Insulin Aspart (Novolog) 10 unit SC AC [facility] Last Admin: 10/13/18 17:15 Dose: 10 units Insulin Glargine (Lantus) 24 unit SC HS [facility] Last Admin: 10/12/18 21:19 Dose: 24 unit Levothyroxine Sodium (Synthroid) 100 mcg PO DAILY@0630 [facility] Last Admin: 10/13/18 06:34 Dose: 100 mcg Lisinopril (Zestril) 10 mg PO DAILY [facility] Last Admin: 10/03/18 10:00 Dose: 10 mg Magnesium Oxide (Mag-Ox) 400 mg PO BID [facility] Last Admin: 10/13/18 17:51 Dose: 400 mg Nystatin (Nystop Topical Powder) 1 applic TOP BID [facility] Last Admin: 10/12/18 18:06 Dose: Not Given Oxycodone/Acetaminophen (Percocet 5/325 Mg Tab) 2 tab PO Q6H PRN PRN Reason: Pain, severe (8-10) Stop: 10/16/18 16:08 Last Admin: 10/13/18 16:27 Dose: 2 tab Pantoprazole Sodium (Protonix Ec Tab) 40 mg PO DAILY [facility] Last Admin: 10/13/18 09:22 Dose: 40 mg Potassium Chloride (K-Dur 20 Meq Er Tab) 20 meq PO DAILY [facility] Last Admin: 10/13/18 09:23 Dose: 20 meq Prednisone (Prednisone Tab) 10 mg PO DAILY [facility] Last Admin: 10/13/18 09:22 Dose: 10 mg Rivaroxaban (Xarelto) 20 mg PO DAILY [facility] Last Admin: 10/13/18 09:23 Dose: 20 mg Saccharomyces Boulardii (Florastor) 250 mg PO Q12 [facility] Last Admin: 10/13/18 09:22 Dose: 250 mg Sertraline HCl (Zoloft) 50 mg PO DAILY [facility] Last Admin: 10/13/18 09:22 Dose: 50 mg Sitagliptin Phosphate (Januvia) 100 mg PO DAILY [facility] Last Admin: 10/13/18 09:22 Dose: 100 mg Trazodone HCl (Desyrel) 50 mg PO HS [facility] Last Admin: 10/12/18 21:18 Dose: 50 mg Trimethobenzamide HCl (Tigan) 200 mg IM Q8 PRN PRN Reason: Nausea/Vomiting Vitamin B Complex/Vit C/Folic Acid (Nephro-Lavinia) 1 tab PO DAILY [facility] Last Admin: 10/13/18 09:22 Dose: 1 tab - Labs Labs: 10/13/18 07:15 10/13/18 07:15 PT 11.0 SECONDS (9.7-12.2) 10/10/18 07:28 INR 1.0 10/10/18 07:28 APTT 25 SECONDS (21-34) 10/10/18 07:28 - Head Exam Head Exam: ATRAUMATIC - Eye Exam Eye Exam: Normal appearance - ENT Exam ENT Exam: Mucous Membranes Dry - Respiratory Exam Respiratory Exam: NORMAL BREATHING PATTERN - Cardiovascular Exam Cardiovascular Exam: +S1, +S2 - GI/Abdominal Exam GI & Abdominal Exam: Normal Bowel Sounds Assessment and Plan (1) Anemia Assessment & Plan: iron deficiency s/p supplementation Status: Acute (2) Pancreatic cancer Assessment & Plan: stage IV liver metastasis noted on laparoscopy f/u path Status: Acute
[2018-10-13] MEDS: (Lantus) Insulin Glargine, Recombinant SC SCH (21:49)
[2018-10-14] MEDS: Levothyroxine 100 MCG TAB PO SCH (06:56)
[2018-10-14] MEDS: Fluticasone-Vilanterol 100/25mcg Diskus INH SCH (07:48)
--- NOTE | 2018-10-14 08:07 | CP.PCM.PN ---
Subjective - Date & Time of Evaluation Date of Evaluation: 10/14/18 Time of Evaluation: 08:06 - Subjective Subjective: Patient offers no new complaints. No complaints of knee pain at this time Review of Systems - Review of Systems All systems: reviewed and no additional remarkable complaints except - Musculoskeletal Musculoskeletal: As Par HPI Objective - Vital Signs/Intake and Output Vital Signs (last 24 hours): Temp Pulse Resp BP Pulse Ox 98.3 F 105 H 17 139/85 97 10/13/18 23:43 10/14/18 03:18 10/13/18 23:43 10/13/18 23:43 10/13/18 23:43 Intake and Output: 10/14/18 10/14/18 06:59 18:59 Output Total 600 Balance -600 - Medications Medications: Current Medications Acetaminophen (Tylenol 325mg Tab) 650 mg PO Q4 PRN PRN Reason: Pain, Mild (1-3) Last Admin: 09/29/18 12:10 Dose: 650 mg Colchicine (Colocrys) 0.6 mg PO BID [facility] Last Admin: 10/13/18 17:57 Dose: 0.6 mg Cyclobenzaprine HCl (Flexeril) 5 mg PO TID [facility] Last Admin: 10/13/18 17:51 Dose: 5 mg Dextrose (Dextrose 50% Inj) 0 ml IV STAT PRN; Protocol PRN Reason: Hypoglycemia Protocol Dextrose (Glutose 15) 0 gm PO ONCE PRN; Protocol PRN Reason: Hypoglycemia Protocol Diazepam (Valium) 5 mg PO BID PRN PRN Reason: Anxiety Last Admin: 10/12/18 12:47 Dose: 5 mg Dicyclomine HCl (Bentyl) 20 mg PO TID [facility] Last Admin: 10/13/18 17:51 Dose: 20 mg Diltiazem HCl (Cardizem Cd) 180 mg PO TID [facility] Last Admin: 10/13/18 17:51 Dose: 180 mg Ergocalciferol (Drisdol 50,000 Intl Units Cap) 1 cap PO Q7D [facility] Last Admin: 10/11/18 21:21 Dose: 1 cap Ferrous Gluconate (Fergon) 324 mg PO TIDCC [facility] Last Admin: 10/13/18 16:27 Dose: 324 mg Fluticasone/Vilanterol (Breo Ellipta 100-25 Mcg Inh) 1 puff INH RQ24 [facility] Last Admin: 10/14/18 07:48 Dose: 1 puff Furosemide (Lasix) 20 mg PO DAILY [facility] Last Admin: 10/13/18 09:22 Dose: 20 mg Gabapentin (Neurontin) 300 mg PO HS [facility] Last Admin: 10/13/18 21:49 Dose: 300 mg Glipizide (Glucotrol) 10 mg PO BID [facility] Last Admin: 10/13/18 17:51 Dose: 10 mg Glucagon (Glucagen Diagnostic Kit) 0 mg IM STAT PRN; Protocol PRN Reason: Hypoglycemia Protocol Insulin Aspart (Novolog) 0 unit SC ACHS [facility]; Protocol Last Admin: 10/13/18 21:56 Dose: Not Given Insulin Aspart (Novolog) 10 unit SC AC [facility] Last Admin: 10/13/18 17:15 Dose: 10 units Insulin Glargine (Lantus) 24 unit SC HS [facility] Last Admin: 10/13/18 21:49 Dose: 24 unit Levothyroxine Sodium (Synthroid) 100 mcg PO DAILY@0630 [facility] Last Admin: 10/14/18 06:56 Dose: 100 mcg Lisinopril (Zestril) 10 mg PO DAILY [facility] Last Admin: 10/03/18 10:00 Dose: 10 mg Magnesium Oxide (Mag-Ox) 400 mg PO BID [facility] Last Admin: 10/13/18 17:51 Dose: 400 mg Nystatin (Nystop Topical Powder) 1 applic TOP BID [facility] Last Admin: 10/13/18 18:50 Dose: Not Given Oxycodone/Acetaminophen (Percocet 5/325 Mg Tab) 2 tab PO Q6H PRN PRN Reason: Pain, severe (8-10) Stop: 10/16/18 16:08 Last Admin: 10/13/18 16:27 Dose: 2 tab Pantoprazole Sodium (Protonix Ec Tab) 40 mg PO DAILY [facility] Last Admin: 10/13/18 09:22 Dose: 40 mg Potassium Chloride (K-Dur 20 Meq Er Tab) 20 meq PO DAILY [facility] Last Admin: 10/13/18 09:23 Dose: 20 meq Prednisone (Prednisone Tab) 10 mg PO DAILY [facility] Last Admin: 10/13/18 09:22 Dose: 10 mg Rivaroxaban (Xarelto) 20 mg PO DAILY [facility] Last Admin: 10/13/18 09:23 Dose: 20 mg Saccharomyces Boulardii (Florastor) 250 mg PO Q12 [facility] Last Admin: 10/13/18 21:55 Dose: 250 mg Sertraline HCl (Zoloft) 50 mg PO DAILY [facility] Last Admin: 10/13/18 09:22 Dose: 50 mg Sitagliptin Phosphate (Januvia) 100 mg PO DAILY [facility] Last Admin: 10/13/18 09:22 Dose: 100 mg Trazodone HCl (Desyrel) 50 mg PO HS [facility] Last Admin: 10/13/18 21:49 Dose: 50 mg Trimethobenzamide HCl (Tigan) 200 mg IM Q8 PRN PRN Reason: Nausea/Vomiting Vitamin B Complex/Vit C/Folic Acid (Nephro-Lavinia) 1 tab PO DAILY [facility] Last Admin: 10/13/18 09:22 Dose: 1 tab - Labs Labs: 10/13/18 07:15 10/13/18 07:15 PT 11.0 SECONDS (9.7-12.2) 10/10/18 07:28 INR 1.0 10/10/18 07:28 APTT 25 SECONDS (21-34) 10/10/18 07:28 - Constitutional Appears: No Acute Distress - Head Exam Head Exam: ATRAUMATIC - Neck Exam Neck Exam: Full ROM, Normal Inspection - Respiratory Exam Respiratory Exam: NORMAL BREATHING PATTERN - Cardiovascular Exam Additional comments: +DOP/PT - Neurological Exam Neurological Exam: Alert, Awake, Oriented x3 Neuro motor strength exam: Right Lower Extremity: 5 (+ROM ankle DF/PF toes flex/ext) - Psychiatric Exam Psychiatric exam: Depressed - Skin Skin Exam: Dry, Intact, Warm Additional comments: resolving ecchymosis Assessment and Plan (1) Closed fracture of right proximal tibia Assessment & Plan: knee xrays 10/13 AP/lat reviewed, continued healing of fracture 20%foot flat WB with Pt in knee immobilizer can remove knee immobilizer in bed as patient with bed sores and had skin breakdown from pressure from brace VTE proph orthopedically stable, continue conservative mgmt of fx f/u Dr. Hernandez 2 weeks upon d/c d/w Dr. Hernandez, agrees with above Status: Acute (2) Vitamin D deficiency Assessment & Plan: cont supp Status: Acute
--- NOTE | 2018-10-14 08:34 | RAD ---
Date of service: 10/13/2018 PROCEDURE: Right Knee Radiographs. HISTORY: Follow-up fracture COMPARISON: Comparison made with radiographs of the right tibia and fibula 10/03/2018 TECHNIQUE: 2 views obtained. FINDINGS: BONES: Healing fracture deformity of the proximal right tibia. JOINTS: Tricompartmental degenerative osteoarthritis most significantly affecting the medial compartment. JOINT EFFUSION: Suspect trace joint effusion. OTHER FINDINGS: Vascular calcifications are present. IMPRESSION: Redemonstrated is healing fracture proximal right tibia. Tricompartmental degenerative osteoarthritis most significantly affecting the medial compartment.
[2018-10-14] MEDS: Oxycodone/Acetaminophen 5/325 mg Tab PO PRN ×2 (10:08→18:04)
[2018-10-14] MEDS: Multivitamin Vitamin B Complex (Nephro-Vite) Tab PO SCH (10:08)
[2018-10-14] MEDS: Saccharomyces Boulardi 250 mg Cap PO SCH ×2 (10:10→21:51)
[2018-10-14] MEDS: Potassium Chloride 20 mEq ER Tab PO SCH (10:11)
[2018-10-14] MEDS: Magnesium Oxide 400 mg Tab UD PO SCH ×2 (10:11→18:04)
[2018-10-14] MEDS: Pantoprazole 40 mg EC Tab PO SCH (10:12)
[2018-10-14] MEDS: (Novolog) Insulin Aspart, Recombinant 100 u/ml 10 ml vial SC SCH ×7 (10:12→21:52)
[2018-10-14] MEDS: diltiaZEM 180 mg/24 Hours CD Cap PO SCH ×3 (10:13→18:03)
--- NOTE | 2018-10-14 13:26 | CP.PCM.PN ---
Subjective - Date & Time of Evaluation Date of Evaluation: 10/14/18 Time of Evaluation: 09:35 - Subjective Subjective: Medicine note ( Dr. Gutierres's service) Patient was seen and examined at bedside. Patient seems very down this morning with mild discomfort. Patient denies any other symptoms at this time. Objective - Vital Signs/Intake and Output Vital Signs (last 24 hours): Temp Pulse Resp BP Pulse Ox 98.5 F 96 H 20 143/66 96 10/14/18 08:00 10/14/18 08:00 10/14/18 08:00 10/14/18 10:11 10/14/18 08:00 Intake and Output: 10/14/18 10/14/18 06:59 18:59 Output Total 600 Balance -600 - Medications Medications: Current Medications Acetaminophen (Tylenol 325mg Tab) 650 mg PO Q4 PRN PRN Reason: Pain, Mild (1-3) Last Admin: 09/29/18 12:10 Dose: 650 mg Colchicine (Colocrys) 0.6 mg PO BID [facility] Last Admin: 10/14/18 10:08 Dose: 0.6 mg Cyclobenzaprine HCl (Flexeril) 5 mg PO TID [facility] Last Admin: 10/14/18 10:09 Dose: 5 mg Dextrose (Dextrose 50% Inj) 0 ml IV STAT PRN; Protocol PRN Reason: Hypoglycemia Protocol Dextrose (Glutose 15) 0 gm PO ONCE PRN; Protocol PRN Reason: Hypoglycemia Protocol Diazepam (Valium) 5 mg PO BID PRN PRN Reason: Anxiety Last Admin: 10/12/18 12:47 Dose: 5 mg Dicyclomine HCl (Bentyl) 20 mg PO TID [facility] Last Admin: 10/14/18 10:10 Dose: 20 mg Diltiazem HCl (Cardizem Cd) 180 mg PO TID [facility] Last Admin: 10/14/18 10:13 Dose: 180 mg Ergocalciferol (Drisdol 50,000 Intl Units Cap) 1 cap PO Q7D [facility] Last Admin: 10/11/18 21:21 Dose: 1 cap Ferrous Gluconate (Fergon) 324 mg PO TIDCC [facility] Last Admin: 10/14/18 10:10 Dose: 324 mg Fluticasone/Vilanterol (Breo Ellipta 100-25 Mcg Inh) 1 puff INH RQ24 [facility] Last Admin: 10/14/18 07:48 Dose: 1 puff Furosemide (Lasix) 20 mg PO DAILY [facility] Last Admin: 10/14/18 10:11 Dose: 20 mg Gabapentin (Neurontin) 300 mg PO HS [facility] Last Admin: 10/13/18 21:49 Dose: 300 mg Glipizide (Glucotrol) 10 mg PO BID [facility] Last Admin: 10/14/18 10:10 Dose: 10 mg Glucagon (Glucagen Diagnostic Kit) 0 mg IM STAT PRN; Protocol PRN Reason: Hypoglycemia Protocol Insulin Aspart (Novolog) 0 unit SC ACHS [facility]; Protocol Last Admin: 10/14/18 10:12 Dose: 3 units Insulin Aspart (Novolog) 10 unit SC AC [facility] Last Admin: 10/14/18 10:12 Dose: 10 units Insulin Glargine (Lantus) 24 unit SC HS [facility] Last Admin: 10/13/18 21:49 Dose: 24 unit Levothyroxine Sodium (Synthroid) 100 mcg PO DAILY@0630 [facility] Last Admin: 10/14/18 06:56 Dose: 100 mcg Lisinopril (Zestril) 10 mg PO DAILY [facility] Last Admin: 10/03/18 10:00 Dose: 10 mg Magnesium Oxide (Mag-Ox) 400 mg PO BID [facility] Last Admin: 10/14/18 10:11 Dose: 400 mg Nystatin (Nystop Topical Powder) 1 applic TOP BID [facility] Last Admin: 10/14/18 10:13 Dose: Not Given Oxycodone/Acetaminophen (Percocet 5/325 Mg Tab) 2 tab PO Q6H PRN PRN Reason: Pain, severe (8-10) Stop: 10/16/18 16:08 Last Admin: 10/14/18 10:08 Dose: 2 tab Pantoprazole Sodium (Protonix Ec Tab) 40 mg PO DAILY [facility] Last Admin: 10/14/18 10:12 Dose: 40 mg Potassium Chloride (K-Dur 20 Meq Er Tab) 20 meq PO DAILY [facility] Last Admin: 10/14/18 10:11 Dose: 20 meq Prednisone (Prednisone Tab) 10 mg PO DAILY [facility] Last Admin: 10/14/18 10:11 Dose: 10 mg Rivaroxaban (Xarelto) 20 mg PO DAILY [facility] Last Admin: 10/14/18 10:12 Dose: 20 mg Saccharomyces Boulardii (Florastor) 250 mg PO Q12 [facility] Last Admin: 10/14/18 10:10 Dose: 250 mg Sertraline HCl (Zoloft) 50 mg PO DAILY [facility] Last Admin: 10/14/18 10:17 Dose: 50 mg Sitagliptin Phosphate (Januvia) 100 mg PO DAILY [facility] Last Admin: 10/14/18 10:17 Dose: 100 mg Trazodone HCl (Desyrel) 50 mg PO HS [facility] Last Admin: 10/13/18 21:49 Dose: 50 mg Trimethobenzamide HCl (Tigan) 200 mg IM Q8 PRN PRN Reason: Nausea/Vomiting Vitamin B Complex/Vit C/Folic Acid (Nephro-Lavinia) 1 tab PO DAILY [facility] Last Admin: 10/14/18 10:08 Dose: 1 tab - Labs Labs: 10/13/18 07:15 10/13/18 07:15 PT 11.0 SECONDS (9.7-12.2) 10/10/18 07:28 INR 1.0 10/10/18 07:28 APTT 25 SECONDS (21-34) 10/10/18 07:28 - Constitutional Appears: No Acute Distress - Head Exam Head Exam: ATRAUMATIC, NORMAL INSPECTION - Eye Exam Eye Exam: EOMI - ENT Exam ENT Exam: Mucous Membranes Moist - Respiratory Exam Respiratory Exam: Clear to Ausculation Bilateral, NORMAL BREATHING PATTERN. absent: Rhonchi, Wheezes - Cardiovascular Exam Cardiovascular Exam: Tachycardia, REGULAR RHYTHM, +S1, +S2 - GI/Abdominal Exam GI & Abdominal Exam: Soft, Normal Bowel Sounds. absent: Distended, Firm, Guarding, Rigid, Tenderness Additional comments: s/p Diagonsitic Laparoscopy and Liver Biopsy (10/12/18) Incision is clean, dry and intact - Extremities Exam Extremities Exam: Normal Inspection. absent: Calf Tenderness, Pedal Edema - Neurological Exam Neurological Exam: Alert, Awake, Oriented x3 - Psychiatric Exam Psychiatric exam: Flat Affect Assessment and Plan (1) Pancreatic mass Assessment & Plan: Consultations: - Surgery Dr. Bright; help appreciated - S/p Diagnostic laparoscopy and liver biopsy, POD # 1 * Findings: Metastasis to the liver, grossly single nodule. Cystic lesion and h errol pancreas. * F/u up pathology results from liver biopsy Labs and imaging: - CEA: 42.5, CA19-9: 1980, CA125: 36.2 - Abdomen/Pelvic CT: Heterogeneous hyperdense pancreatic mass measuring approximately 2.7 x 2.5 cm at the pancreatic body/tail. Ectatic dilated pancreatic duct. Additional cystic heterogeneous focus measuring approximately 15 x 14 mm is noted at the superior aspect of the pancreas. Appearance worrisome for malignant neoplasm. Wall thickening involving the 2nd portion of the duodenum of uncertain significance; considerations include infectious, inflam matory, or malignant etiologies. Correlate clinically and recommend further evaluation with direct visualization if indicated. Small pelvic free fluid Status: Acute (2) COPD (chronic obstructive pulmonary disease) Assessment & Plan: Not in acute exacerbation - Breo Ellipta 100-25mcg 1 Puff daily - Duonebs Q4h PRN for shortness of breath Status: Acute (3) Diabetes mellitus Assessment & Plan: Consultation: - Endocrinology, Dr. Dickson * Help appreciated HgbA1C (09/07/18): 9.0 Accuchecks ISS- Medium dose Aspart 10 units AC Glargine 24units SC HS Glipizide 10mg PO BID Januvia 100mg PO daily Gabapentin 300mg PO HS Hypoglycemia protocol Status: Acute (4) Acute kidney injury Assessment & Plan: Resolved - Held Lisinopril - Nephrovite 1 tab PO daily - Monitor Status: Acute (5) HTN (hypertension) Assessment & Plan: - Lisinopril 10mg PO daily (Held due to KARMA) - Cardizem 180mg PO TID Status: Chronic (6) Fibromyalgia Assessment & Plan: - Home medication: Diazepam 5mg PO BID - Flexeril 5mg PO TID (Holding parameters- hold if sleeping/sedated, hypotens ion) - Percocet 5/325mg 2 tab Q6H prn for pain - Gabapentin 300mg PO HS Status: Chronic (7) Hypothyroid Assessment & Plan: - Continue Synthroid 100mcg PO daily - TSH/Free T4: 9.5/0.30 Status: Acute (8) History of DVT (deep vein thrombosis) Assessment & Plan: - Continue Xarelto 20mg PO daily (Held for Surgery, 10/11/18) Status: Acute (9) Closed fracture of right proximal tibia Assessment & Plan: Consultation: Orthopedics, Mary Mejia---> Help appreciated Imaging: Right Knee X-ray (10/13/18): Redemonstrated is healing fracture proximal right tibia. Tricompartmental degenerative osteoarthritis most significantly affecting the medial compartment. - Repeat tibia/fibula x ray showed Radiographic manifestations of continued healing proximal right tibial fracture - Per ortho: continue well padded knee immobilizer; non operative; recommends PT/OT, NWB, VTE proph, and to f/u with Dr. Hernandez 1-2 weeks upon d/c Status: Acute (10) Gout Assessment & Plan: Colchicine 0.6mg PO BID Status: Acute (11) Anemia Assessment & Plan: H/H stable Ferugon 324mg PO TIDCC Status: Acute (12) Intertrigo Assessment & Plan: -Redness us Groin Area 2/2 to incontinence -Started Nystatin Powder BID Status: Acute (13) Ulcer Assessment & Plan: - Patient has been spraying hydrogen peroxide on it - Will consult Nursing Wound Care, - Turn Q2H - Consider Air Mattress Status: Acute (14) Tachycardia Assessment & Plan: - Cardiology consulted, Dr. Jeong; F/U Recs. - Increased Cardizem to 180mg PO TID - Will continue to monitor Status: Acute (15) Adrenal insufficiency Assessment & Plan: - On prednisone 10mg PO daily Status: Acute (16) Depression Assessment & Plan: - Consulted psychiatry, Dr. Dexter, recs appreciated. - Per psychiatry, Started zoloft 50mg po daily (consider tapering up to 100mg), trazodone 50mg po hs - Valium 5mg po bid prn Status: Acute (17) Prophylactic measure Assessment & Plan: - Protonix 40mg PO daily, Probiotics - Xarelto 20mg PO daily (Held) - PT/OT - Palliative care consulted to discuss goals of care - Case management consulted for discharge planning to [facility] Dis[facility]: [facility] All plans and management discussed with Dr. Gutierres Status: Acute
--- NOTE | 2018-10-14 19:35 | CP.PCM.PN ---
Subjective - Date & Time of Evaluation Date of Evaluation: 10/14/18 Time of Evaluation: 12:00 - Subjective Subjective: Tearful, sad about her situation Objective - Vital Signs/Intake and Output Vital Signs (last 24 hours): Temp Pulse Resp BP Pulse Ox 98 F 124 H 18 112/76 97 10/14/18 16:00 10/14/18 16:00 10/14/18 16:00 10/14/18 16:00 10/14/18 16:00 - Medications Medications: Current Medications Acetaminophen (Tylenol 325mg Tab) 650 mg PO Q4 PRN PRN Reason: Pain, Mild (1-3) Last Admin: 09/29/18 12:10 Dose: 650 mg Colchicine (Colocrys) 0.6 mg PO BID [facility] Last Admin: 10/14/18 18:05 Dose: 0.6 mg Cyclobenzaprine HCl (Flexeril) 5 mg PO TID [facility] Last Admin: 10/14/18 18:03 Dose: 5 mg Dextrose (Dextrose 50% Inj) 0 ml IV STAT PRN; Protocol PRN Reason: Hypoglycemia Protocol Dextrose (Glutose 15) 0 gm PO ONCE PRN; Protocol PRN Reason: Hypoglycemia Protocol Diazepam (Valium) 5 mg PO BID PRN PRN Reason: Anxiety Last Admin: 10/12/18 12:47 Dose: 5 mg Dicyclomine HCl (Bentyl) 20 mg PO TID [facility] Last Admin: 10/14/18 18:05 Dose: 20 mg Diltiazem HCl (Cardizem Cd) 180 mg PO TID [facility] Last Admin: 10/14/18 18:03 Dose: 180 mg Ergocalciferol (Drisdol 50,000 Intl Units Cap) 1 cap PO Q7D [facility] Last Admin: 10/11/18 21:21 Dose: 1 cap Ferrous Gluconate (Fergon) 324 mg PO TIDCC [facility] Last Admin: 10/14/18 18:04 Dose: 324 mg Fluticasone/Vilanterol (Breo Ellipta 100-25 Mcg Inh) 1 puff INH RQ24 [facility] Last Admin: 10/14/18 07:48 Dose: 1 puff Furosemide (Lasix) 20 mg PO DAILY [facility] Last Admin: 10/14/18 10:11 Dose: 20 mg Gabapentin (Neurontin) 300 mg PO HS [facility] Last Admin: 10/13/18 21:49 Dose: 300 mg Glipizide (Glucotrol) 10 mg PO BID [facility] Last Admin: 10/14/18 18:04 Dose: 10 mg Glucagon (Glucagen Diagnostic Kit) 0 mg IM STAT PRN; Protocol PRN Reason: Hypoglycemia Protocol Insulin Aspart (Novolog) 0 unit SC ACHS [facility]; Protocol Last Admin: 10/14/18 18:04 Dose: 2 units Insulin Aspart (Novolog) 10 unit SC AC [facility] Last Admin: 10/14/18 17:14 Dose: Not Given Insulin Glargine (Lantus) 24 unit SC HS [facility] Last Admin: 10/13/18 21:49 Dose: 24 unit Levothyroxine Sodium (Synthroid) 100 mcg PO DAILY@0630 [facility] Last Admin: 10/14/18 06:56 Dose: 100 mcg Lisinopril (Zestril) 10 mg PO DAILY [facility] Last Admin: 10/03/18 10:00 Dose: 10 mg Magnesium Oxide (Mag-Ox) 400 mg PO BID [facility] Last Admin: 10/14/18 18:04 Dose: 400 mg Nystatin (Nystop Topical Powder) 1 applic TOP BID [facility] Last Admin: 10/14/18 18:06 Dose: 1 applic Oxycodone/Acetaminophen (Percocet 5/325 Mg Tab) 2 tab PO Q6H PRN PRN Reason: Pain, severe (8-10) Stop: 10/16/18 16:08 Last Admin: 10/14/18 18:04 Dose: 2 tab Pantoprazole Sodium (Protonix Ec Tab) 40 mg PO DAILY [facility] Last Admin: 10/14/18 10:12 Dose: 40 mg Potassium Chloride (K-Dur 20 Meq Er Tab) 20 meq PO DAILY [facility] Last Admin: 10/14/18 10:11 Dose: 20 meq Prednisone (Prednisone Tab) 10 mg PO DAILY [facility] Last Admin: 10/14/18 10:11 Dose: 10 mg Rivaroxaban (Xarelto) 20 mg PO DAILY [facility] Last Admin: 10/14/18 10:12 Dose: 20 mg Saccharomyces Boulardii (Florastor) 250 mg PO Q12 [facility] Last Admin: 10/14/18 10:10 Dose: 250 mg Sertraline HCl (Zoloft) 50 mg PO DAILY [facility] Last Admin: 10/14/18 10:17 Dose: 50 mg Sitagliptin Phosphate (Januvia) 100 mg PO DAILY [facility] Last Admin: 10/14/18 10:17 Dose: 100 mg Trazodone HCl (Desyrel) 50 mg PO HS [facility] Last Admin: 10/13/18 21:49 Dose: 50 mg Trimethobenzamide HCl (Tigan) 200 mg IM Q8 PRN PRN Reason: Nausea/Vomiting Vitamin B Complex/Vit C/Folic Acid (Nephro-Lavinia) 1 tab PO DAILY [facility] Last Admin: 10/14/18 10:08 Dose: 1 tab - Labs Labs: 10/13/18 07:15 10/13/18 07:15 PT 11.0 SECONDS (9.7-12.2) 10/10/18 07:28 INR 1.0 10/10/18 07:28 APTT 25 SECONDS (21-34) 10/10/18 07:28 - Head Exam Head Exam: ATRAUMATIC - Eye Exam Eye Exam: Normal appearance - ENT Exam ENT Exam: Mucous Membranes Dry - Respiratory Exam Respiratory Exam: NORMAL BREATHING PATTERN - Cardiovascular Exam Cardiovascular Exam: +S1, +S2 - GI/Abdominal Exam GI & Abdominal Exam: Normal Bowel Sounds Assessment and Plan (1) Anemia Assessment & Plan: iron deficiency s/p supplementation Status: Acute (2) Pancreatic cancer Assessment & Plan: likely stage IV liver lesion s/p biopsy f/u pathology will add MSI and PDL1 testing to see if benefit from immunotherapy if path retunrs + for malignancy Status: Acute
[2018-10-14] MEDS: (Lantus) Insulin Glargine, Recombinant SC SCH (21:52)
[2018-10-15] MEDS: Oxycodone/Acetaminophen 5/325 mg Tab PO PRN ×2 (00:04→15:57)
[2018-10-15] MEDS: Levothyroxine 100 MCG TAB PO SCH (06:18)
[2018-10-15] MEDS: Fluticasone-Vilanterol 100/25mcg Diskus INH SCH (07:44)
[2018-10-15] MEDS: (Novolog) Insulin Aspart, Recombinant 100 u/ml 10 ml vial SC SCH ×7 (08:30→21:21)
[2018-10-15] MEDS: Saccharomyces Boulardi 250 mg Cap PO SCH ×2 (10:49→21:14)
[2018-10-15] MEDS: Magnesium Oxide 400 mg Tab UD PO SCH ×2 (10:49→17:37)
[2018-10-15] MEDS: diltiaZEM 180 mg/24 Hours CD Cap PO SCH ×3 (10:49→17:37)
[2018-10-15] MEDS: Potassium Chloride 20 mEq ER Tab PO SCH (10:49)
[2018-10-15] MEDS: Pantoprazole 40 mg EC Tab PO SCH (10:50)
[2018-10-15] MEDS: Multivitamin Vitamin B Complex (Nephro-Vite) Tab PO SCH (10:50)
[2018-10-15] MEDS: (Lantus) Insulin Glargine, Recombinant SC SCH (21:14)
[2018-10-16] MEDS: Levothyroxine 100 MCG TAB PO SCH (06:40)
[2018-10-16] MEDS: (Novolog) Insulin Aspart, Recombinant 100 u/ml 10 ml vial SC SCH ×7 (07:14→22:10)
[2018-10-16] MEDS: Fluticasone-Vilanterol 100/25mcg Diskus INH SCH (08:04)
[2018-10-16] MEDS: Oxycodone/Acetaminophen 5/325 mg Tab PO PRN (09:00)
[2018-10-16] MEDS: Potassium Chloride 20 mEq ER Tab PO SCH (09:00)
[2018-10-16] MEDS: Pantoprazole 40 mg EC Tab PO SCH (09:00)
[2018-10-16] MEDS: diltiaZEM 180 mg/24 Hours CD Cap PO SCH ×3 (09:01→17:48)
[2018-10-16] MEDS: Saccharomyces Boulardi 250 mg Cap PO SCH ×2 (09:01→22:07)
[2018-10-16] MEDS: Magnesium Oxide 400 mg Tab UD PO SCH ×2 (09:01→17:49)
[2018-10-16] MEDS: Multivitamin Vitamin B Complex (Nephro-Vite) Tab PO SCH (09:02)
--- NOTE | 2018-10-16 20:24 | CP.PCM.PN ---
Subjective - Date & Time of Evaluation Date of Evaluation: 10/15/18 Time of Evaluation: 17:00 - Subjective Subjective: No complaints. Informed the patient of her liver biopsy results showing cancer metastasis. Objective - Vital Signs/Intake and Output Vital Signs (last 24 hours): Temp Pulse Resp BP Pulse Ox 97.3 F L 66 20 131/71 95 10/16/18 16:00 10/16/18 16:00 10/16/18 16:00 10/16/18 16:00 10/16/18 16:00 - Medications Medications: Current Medications Acetaminophen (Tylenol 325mg Tab) 650 mg PO Q4 PRN PRN Reason: Pain, Mild (1-3) Last Admin: 09/29/18 12:10 Dose: 650 mg Colchicine (Colocrys) 0.6 mg PO BID [facility] Last Admin: 10/16/18 17:49 Dose: 0.6 mg Cyclobenzaprine HCl (Flexeril) 5 mg PO TID [facility] Last Admin: 10/16/18 17:48 Dose: 5 mg Dextrose (Dextrose 50% Inj) 0 ml IV STAT PRN; Protocol PRN Reason: Hypoglycemia Protocol Dextrose (Glutose 15) 0 gm PO ONCE PRN; Protocol PRN Reason: Hypoglycemia Protocol Diazepam (Valium) 5 mg PO BID PRN PRN Reason: Anxiety Last Admin: 10/15/18 10:48 Dose: 5 mg Dicyclomine HCl (Bentyl) 20 mg PO TID [facility] Last Admin: 10/16/18 17:49 Dose: 10 mg Diltiazem HCl (Cardizem Cd) 180 mg PO TID [facility] Last Admin: 10/16/18 17:48 Dose: 180 mg Ergocalciferol (Drisdol 50,000 Intl Units Cap) 1 cap PO Q7D [facility] Last Admin: 10/11/18 21:21 Dose: 1 cap Ferrous Gluconate (Fergon) 324 mg PO TIDCC [facility] Last Admin: 10/16/18 17:03 Dose: 324 mg Fluticasone/Vilanterol (Breo Ellipta 100-25 Mcg Inh) 1 puff INH RQ24 [facility] Last Admin: 10/16/18 08:04 Dose: 1 puff Furosemide (Lasix) 20 mg PO DAILY [facility] Last Admin: 10/16/18 09:01 Dose: 20 mg Gabapentin (Neurontin) 300 mg PO HS [facility] Last Admin: 10/15/18 21:13 Dose: 300 mg Glipizide (Glucotrol) 10 mg PO BID [facility] Last Admin: 10/16/18 17:49 Dose: 10 mg Glucagon (Glucagen Diagnostic Kit) 0 mg IM STAT PRN; Protocol PRN Reason: Hypoglycemia Protocol Insulin Aspart (Novolog) 0 unit SC ACHS [facility]; Protocol Last Admin: 10/16/18 17:00 Dose: 6 units Insulin Aspart (Novolog) 10 unit SC AC [facility] Last Admin: 10/16/18 17:01 Dose: 10 units Insulin Glargine (Lantus) 24 unit SC HS [facility] Last Admin: 10/15/18 21:14 Dose: 24 unit Levothyroxine Sodium (Synthroid) 100 mcg PO DAILY@0630 [facility] Last Admin: 10/16/18 06:40 Dose: 100 mcg Lisinopril (Zestril) 10 mg PO DAILY [facility] Last Admin: 10/03/18 10:00 Dose: 10 mg Magnesium Oxide (Mag-Ox) 400 mg PO BID [facility] Last Admin: 10/16/18 17:49 Dose: 400 mg Nystatin (Nystop Topical Powder) 1 applic TOP BID [facility] Last Admin: 10/16/18 09:00 Dose: Not Given Pantoprazole Sodium (Protonix Ec Tab) 40 mg PO DAILY [facility] Last Admin: 10/16/18 09:00 Dose: 40 mg Potassium Chloride (K-Dur 20 Meq Er Tab) 20 meq PO DAILY [facility] Last Admin: 10/16/18 09:00 Dose: 20 meq Prednisone (Prednisone Tab) 10 mg PO DAILY [facility] Last Admin: 10/16/18 09:02 Dose: 10 mg Rivaroxaban (Xarelto) 20 mg PO DAILY [facility] Last Admin: 10/16/18 09:01 Dose: 20 mg Saccharomyces Boulardii (Florastor) 250 mg PO Q12 [facility] Last Admin: 10/16/18 09:01 Dose: 250 mg Sertraline HCl (Zoloft) 50 mg PO DAILY [facility] Last Admin: 10/16/18 09:02 Dose: 50 mg Sitagliptin Phosphate (Januvia) 100 mg PO DAILY [facility] Last Admin: 10/16/18 09:01 Dose: 100 mg Trazodone HCl (Desyrel) 50 mg PO HS [facility] Last Admin: 10/15/18 21:17 Dose: 50 mg Trimethobenzamide HCl (Tigan) 200 mg IM Q8 PRN PRN Reason: Nausea/Vomiting Vitamin B Complex/Vit C/Folic Acid (Nephro-Lavinia) 1 tab PO DAILY [facility] Last Admin: 10/16/18 09:02 Dose: 1 tab - Labs Labs: 10/13/18 07:15 10/13/18 07:15 PT 11.0 SECONDS (9.7-12.2) 10/10/18 07:28 INR 1.0 10/10/18 07:28 APTT 25 SECONDS (21-34) 10/10/18 07:28 - Head Exam Head Exam: ATRAUMATIC - Eye Exam Eye Exam: Normal appearance - ENT Exam ENT Exam: Mucous Membranes Dry - Respiratory Exam Respiratory Exam: NORMAL BREATHING PATTERN - Cardiovascular Exam Cardiovascular Exam: +S1, +S2 - GI/Abdominal Exam GI & Abdominal Exam: Normal Bowel Sounds Assessment and Plan (1) Anemia Assessment & Plan: iron deficiency s/p supplementation Status: Acute (2) Pancreatic cancer Assessment & Plan: liver metastasis will add MSI and PDL1 testing to see if benefit from immunotherapy Status: Acute
--- NOTE | 2018-10-16 20:24 | CP.PCM.PN ---
Subjective - Date & Time of Evaluation Date of Evaluation: 10/16/18 Time of Evaluation: 18:00 - Subjective Subjective: No complaints. Objective - Vital Signs/Intake and Output Vital Signs (last 24 hours): Temp Pulse Resp BP Pulse Ox 97.3 F L 66 20 131/71 95 10/16/18 16:00 10/16/18 16:00 10/16/18 16:00 10/16/18 16:00 10/16/18 16:00 - Medications Medications: Current Medications Acetaminophen (Tylenol 325mg Tab) 650 mg PO Q4 PRN PRN Reason: Pain, Mild (1-3) Last Admin: 09/29/18 12:10 Dose: 650 mg Colchicine (Colocrys) 0.6 mg PO BID [facility] Last Admin: 10/16/18 17:49 Dose: 0.6 mg Cyclobenzaprine HCl (Flexeril) 5 mg PO TID [facility] Last Admin: 10/16/18 17:48 Dose: 5 mg Dextrose (Dextrose 50% Inj) 0 ml IV STAT PRN; Protocol PRN Reason: Hypoglycemia Protocol Dextrose (Glutose 15) 0 gm PO ONCE PRN; Protocol PRN Reason: Hypoglycemia Protocol Diazepam (Valium) 5 mg PO BID PRN PRN Reason: Anxiety Last Admin: 10/15/18 10:48 Dose: 5 mg Dicyclomine HCl (Bentyl) 20 mg PO TID [facility] Last Admin: 10/16/18 17:49 Dose: 10 mg Diltiazem HCl (Cardizem Cd) 180 mg PO TID [facility] Last Admin: 10/16/18 17:48 Dose: 180 mg Ergocalciferol (Drisdol 50,000 Intl Units Cap) 1 cap PO Q7D [facility] Last Admin: 10/11/18 21:21 Dose: 1 cap Ferrous Gluconate (Fergon) 324 mg PO TIDCC [facility] Last Admin: 10/16/18 17:03 Dose: 324 mg Fluticasone/Vilanterol (Breo Ellipta 100-25 Mcg Inh) 1 puff INH RQ24 [facility] Last Admin: 10/16/18 08:04 Dose: 1 puff Furosemide (Lasix) 20 mg PO DAILY [facility] Last Admin: 10/16/18 09:01 Dose: 20 mg Gabapentin (Neurontin) 300 mg PO HS [facility] Last Admin: 04/13/19 21:13 Dose: 300 mg Glipizide (Glucotrol) 10 mg PO BID [facility] Last Admin: 10/16/18 17:49 Dose: 10 mg Glucagon (Glucagen Diagnostic Kit) 0 mg IM STAT PRN; Protocol PRN Reason: Hypoglycemia Protocol Insulin Aspart (Novolog) 0 unit SC ACHS [facility]; Protocol Last Admin: 10/16/18 17:00 Dose: 6 units Insulin Aspart (Novolog) 10 unit SC AC [facility] Last Admin: 10/16/18 17:01 Dose: 10 units Insulin Glargine (Lantus) 24 unit SC HS [facility] Last Admin: 10/15/18 21:14 Dose: 24 unit Levothyroxine Sodium (Synthroid) 100 mcg PO DAILY@0630 [facility] Last Admin: 10/16/18 06:40 Dose: 100 mcg Lisinopril (Zestril) 10 mg PO DAILY [facility] Last Admin: 10/03/18 10:00 Dose: 10 mg Magnesium Oxide (Mag-Ox) 400 mg PO BID [facility] Last Admin: 10/16/18 17:49 Dose: 400 mg Nystatin (Nystop Topical Powder) 1 applic TOP BID [facility] Last Admin: 10/16/18 09:00 Dose: Not Given Pantoprazole Sodium (Protonix Ec Tab) 40 mg PO DAILY [facility] Last Admin: 10/16/18 09:00 Dose: 40 mg Potassium Chloride (K-Dur 20 Meq Er Tab) 20 meq PO DAILY [facility] Last Admin: 10/16/18 09:00 Dose: 20 meq Prednisone (Prednisone Tab) 10 mg PO DAILY [facility] Last Admin: 10/16/18 09:02 Dose: 10 mg Rivaroxaban (Xarelto) 20 mg PO DAILY [facility] Last Admin: 10/16/18 09:01 Dose: 20 mg Saccharomyces Boulardii (Florastor) 250 mg PO Q12 [facility] Last Admin: 10/16/18 09:01 Dose: 250 mg Sertraline HCl (Zoloft) 50 mg PO DAILY [facility] Last Admin: 10/16/18 09:02 Dose: 50 mg Sitagliptin Phosphate (Januvia) 100 mg PO DAILY [facility] Last Admin: 10/16/18 09:01 Dose: 100 mg Trazodone HCl (Desyrel) 50 mg PO HS [facility] Last Admin: 10/15/18 21:17 Dose: 50 mg Trimethobenzamide HCl (Tigan) 200 mg IM Q8 PRN PRN Reason: Nausea/Vomiting Vitamin B Complex/Vit C/Folic Acid (Nephro-Lavinia) 1 tab PO DAILY [facility] Last Admin: 10/16/18 09:02 Dose: 1 tab - Labs Labs: 10/13/18 07:15 10/13/18 07:15 PT 11.0 SECONDS (9.7-12.2) 10/10/18 07:28 INR 1.0 10/10/18 07:28 APTT 25 SECONDS (21-34) 10/10/18 07:28 - Head Exam Head Exam: ATRAUMATIC - Eye Exam Eye Exam: Normal appearance - ENT Exam ENT Exam: Mucous Membranes Dry - Respiratory Exam Respiratory Exam: NORMAL BREATHING PATTERN - Cardiovascular Exam Cardiovascular Exam: +S1, +S2 - GI/Abdominal Exam GI & Abdominal Exam: Normal Bowel Sounds Assessment and Plan (1) Anemia Assessment & Plan: iron deficiency s/p supplementation Status: Acute (2) Pancreatic cancer Assessment & Plan: liver metastasis will add MSI and PDL1 testing to see if benefit from immunotherapy Status: Acute
[2018-10-16] MEDS ORDERED: Oxycodone/Acetaminophen 5/325 mg Tab PO STA (20:28)
[2018-10-16] MEDS: (Lantus) Insulin Glargine, Recombinant SC SCH (22:10)
[2018-10-17] MEDS: Oxycodone/Acetaminophen 5/325 mg Tab PO PRN ×2 (02:42→10:51)
[2018-10-17] MEDS: Levothyroxine 100 MCG TAB PO SCH (06:55)
[2018-10-17] MEDS: (Novolog) Insulin Aspart, Recombinant 100 u/ml 10 ml vial SC SCH ×4 (07:35→12:15)
[2018-10-17 07:55] VITALS: O2SAT 95
--- NOTE | 2018-10-17 07:59 | CP.PCM.PN ---
Subjective - Date & Time of Evaluation Date of Evaluation: 10/17/18 Time of Evaluation: 08:00 - Subjective Subjective: Medicine Progress Note for Dr. Gutierres's Service: Patient was seen and examined at bedside. Patient states she continues to have body aches which is chronic per patient. She states the pain medication has been relieving her pain. Patient denies chest pain, shortness of breath, nausea, vomiting, fever or chills. Objective - Vital Signs/Intake and Output Vital Signs (last 24 hours): Temp Pulse Resp BP Pulse Ox 97.6 F 101 H 18 138/84 95 10/17/18 07:00 10/17/18 07:00 10/17/18 07:00 10/17/18 07:00 10/17/18 07:00 Intake and Output: 10/17/18 10/17/18 06:59 18:59 Intake Total 240 Output Total 400 Balance -160 - Medications Medications: Current Medications Acetaminophen (Tylenol 325mg Tab) 650 mg PO Q4 PRN PRN Reason: Pain, Mild (1-3) Last Admin: 09/29/18 12:10 Dose: 650 mg Colchicine (Colocrys) 0.6 mg PO BID [facility] Last Admin: 10/16/18 17:49 Dose: 0.6 mg Cyclobenzaprine HCl (Flexeril) 5 mg PO TID [facility] Last Admin: 10/16/18 17:48 Dose: 5 mg Dextrose (Dextrose 50% Inj) 0 ml IV STAT PRN; Protocol PRN Reason: Hypoglycemia Protocol Dextrose (Glutose 15) 0 gm PO ONCE PRN; Protocol PRN Reason: Hypoglycemia Protocol Diazepam (Valium) 5 mg PO BID PRN PRN Reason: Anxiety Last Admin: 10/15/18 10:48 Dose: 5 mg Dicyclomine HCl (Bentyl) 20 mg PO TID [facility] Last Admin: 10/16/18 17:49 Dose: 10 mg Diltiazem HCl (Cardizem Cd) 180 mg PO TID [facility] Last Admin: 10/16/18 17:48 Dose: 180 mg Ergocalciferol (Drisdol 50,000 Intl Units Cap) 1 cap PO Q7D [facility] Last Admin: 10/11/18 21:21 Dose: 1 cap Ferrous Gluconate (Fergon) 324 mg PO TIDCC [facility] Last Admin: 10/16/18 17:03 Dose: 324 mg Fluticasone/Vilanterol (Breo Ellipta 100-25 Mcg Inh) 1 puff INH RQ24 [facility] Last Admin: 10/16/18 08:04 Dose: 1 puff Furosemide (Lasix) 20 mg PO DAILY [facility] Last Admin: 10/16/18 09:01 Dose: 20 mg Gabapentin (Neurontin) 300 mg PO HS [facility] Last Admin: 10/16/18 22:07 Dose: 300 mg Glipizide (Glucotrol) 10 mg PO BID [facility] Last Admin: 10/16/18 17:49 Dose: 10 mg Glucagon (Glucagen Diagnostic Kit) 0 mg IM STAT PRN; Protocol PRN Reason: Hypoglycemia Protocol Insulin Aspart (Novolog) 0 unit SC ACHS [facility]; Protocol Last Admin: 10/16/18 22:10 Dose: 2 units Insulin Aspart (Novolog) 10 unit SC AC [facility] Last Admin: 10/16/18 17:01 Dose: 10 units Insulin Glargine (Lantus) 24 unit SC HS [facility] Last Admin: 10/16/18 22:10 Dose: 24 unit Levothyroxine Sodium (Synthroid) 100 mcg PO DAILY@0630 [facility] Last Admin: 10/17/18 06:55 Dose: 100 mcg Lisinopril (Zestril) 10 mg PO DAILY [facility] Last Admin: 10/03/18 10:00 Dose: 10 mg Magnesium Oxide (Mag-Ox) 400 mg PO BID [facility] Last Admin: 10/16/18 17:49 Dose: 400 mg Nystatin (Nystop Topical Powder) 1 applic TOP BID [facility] Last Admin: 10/16/18 22:35 Dose: 1 applic Oxycodone/Acetaminophen (Percocet 5/325 Mg Tab) 2 tab PO Q6H PRN PRN Reason: Pain, severe (8-10) Stop: 10/20/18 20:43 Last Admin: 10/17/18 02:42 Dose: 2 tab Pantoprazole Sodium (Protonix Ec Tab) 40 mg PO DAILY [facility] Last Admin: 10/16/18 09:00 Dose: 40 mg Potassium Chloride (K-Dur 20 Meq Er Tab) 20 meq PO DAILY [facility] Last Admin: 10/16/18 09:00 Dose: 20 meq Prednisone (Prednisone Tab) 10 mg PO DAILY [facility] Last Admin: 10/16/18 09:02 Dose: 10 mg Rivaroxaban (Xarelto) 20 mg PO DAILY [facility] Last Admin: 10/16/18 09:01 Dose: 20 mg Saccharomyces Boulardii (Florastor) 250 mg PO Q12 [facility] Last Admin: 10/16/18 22:07 Dose: 250 mg Sertraline HCl (Zoloft) 50 mg PO DAILY [facility] Last Admin: 10/16/18 09:02 Dose: 50 mg Sitagliptin Phosphate (Januvia) 100 mg PO DAILY [facility] Last Admin: 10/16/18 09:01 Dose: 100 mg Trazodone HCl (Desyrel) 50 mg PO HS [facility] Last Admin: 10/16/18 22:09 Dose: 50 mg Trimethobenzamide HCl (Tigan) 200 mg IM Q8 PRN PRN Reason: Nausea/Vomiting Vitamin B Complex/Vit C/Folic Acid (Nephro-Lavinia) 1 tab PO DAILY [facility] Last Admin: 10/16/18 09:02 Dose: 1 tab - Labs Labs: 10/13/18 07:15 10/13/18 07:15 PT 11.0 SECONDS (9.7-12.2) 10/10/18 07:28 INR 1.0 10/10/18 07:28 APTT 25 SECONDS (21-34) 10/10/18 07:28 - Constitutional Appears: No Acute Distress - Head Exam Head Exam: ATRAUMATIC, NORMAL INSPECTION - Eye Exam Eye Exam: EOMI, Normal appearance - ENT Exam ENT Exam: Mucous Membranes Moist - Respiratory Exam Respiratory Exam: NORMAL BREATHING PATTERN - Cardiovascular Exam Cardiovascular Exam: REGULAR RHYTHM - GI/Abdominal Exam GI & Abdominal Exam: Soft, Tenderness, Normal Bowel Sounds - Neurological Exam Neurological Exam: Alert, Awake, Oriented x3 Assessment and Plan - Assessment and Plan (Free Text) Assessment: 63 year old female with PMHx of COPD, Pancreatic Mass, Chronic Diastolic CHF, Hypertension, DM II, Fibromyalgia, Adrenal Insufficiency, Hypothyroidism, Hx of DVT, Gout, Depression, and Current Closed Fracture of Right proximal tibia admitted for evaluation and treatment of COPD exacerbation. Hospital Course Complicated with episodes of hypotension. Plan: Pancreatic Cancer with Metastasis to the Liver - Surgical Intervention planned for Wednesday10/11/18. - Surgery consulted, Dr. Bright; help appreciated - s/p Diagnostic laparoscopy possible Distal Pancreatectomy scheduled for 10/11/18 * Findings: Metastasis to the liver, grossly single nodule. Cystic lesion and harden pancreas. * pathology results from liver biopsy: Adenocarcinoma - CEA: 42.5, CA19-9: 1980, CA125: 36.2 - Abdomen/Pelvic CT: Heterogeneous hyperdense pancreatic mass measuring ankush roximately 2.7 x 2.5 cm at the pancreatic body/tail. Ectatic dilated pancreatic duct. Additional cystic heterogeneous focus measuring approximately 15 x 14 mm is noted at the superior aspect of the pancreas. Appearance worrisome for malignant neoplasm. Wall thickening involving the 2nd portion of the duodenum of uncertain significance; considerations include infectious, inflammatory, or malignant etiologies. Correlate clinically and recommend further evaluation with direct visualization if indicated. Small pelvic free fluid. - Oncology Consult: Dr. Lala --> help appreciated - f/u MSI and PDL1 testing to see if patient will benefit from immunotherapy COPD Exacerbation - Continue home medication: Breo - Duonebs Q4h prn Acute Kidney Injury (Resolved) - Continue fluids at 75mls/hr - Decreased Lasix 20mg PO - Held Lisinopril - Monitor Hypotension (resolved) - Continue to monitor C. Diff During Previous Admission - Completed course of Vancomycin - Repeat Cdiff negative Tachycardia (Acute) - Cardiology consulted, Dr. Jeong; F/U Recs. - Increased Cardizem to 180mg PO TID - Will continue to monitor Stage 1 Gluteal Ulcer - Patient has been spraying hydrogen peroxide on it - Will consult Nursing Wound Care, - Turn Q2H - Consider Air Mattress Urinary Tract Infection -Urine culture growing proteus mirabilis, sensitivities reviewed -Was given Merrem 1 gm x 1 dose -ID on consult, Dr Little, help appreciated -Repeat UA was negative -Will monitor off antibiotics Intertrigo -Redness us Groin Area 2/2 to incontinence -Started Nystatin Powder BID Hypertension - Lisinopril 10mg PO daily - Cardizem 180mg PO TID Diabetes Mellitus - Accuchecks, Hypoglycemia protocol - HgA1c 9.3 (01/2018); repeat A1c 9.0 - Insulin sliding scale - medium - Continue home medications: Januvia 100 mg PO daily, Glipizide 10mg PO BID, Gabapentin 300mg PO HS - Novolog 10 u SC AC - Lantus 24 units HS - Endocrinology consult. Dr Rhodes recs appreciated. Fibromyalgia - Home medication: Diazepam 5mg PO BID - Flexeril 5mg PO TID (Holding parameters- hold if sleeping/sedated, hypotension) - Percocet 5/325mg 2 tab Q6H prn for pain - Gabapentin 300mg PO HS Adrenal Insufficiency - On prednisone 10mg PO daily Hypothyroidism - Continue Synthroid 100mcg PO daily - TSH/Free T4: 9.5/0.30 Hypokalemia -repleted -continue to monitor and replete as needed History of DVT/PE - Continue Xarelto 20mg PO daily Gout - Continue Colchicine Depression - Consulted psychiatry, Dr. Dexter, recs appreciated. - Per psychiatry, Started zoloft 50mg po daily (consider tapering up to 100mg), trazodone 50mg po hs - Valium 5mg po bid prn Closed fracture of right proximal tibia - Repeat tibia/fibula x ray showed Radiographic manifestations of continued healing proximal right tibial fracture - Orthopedic surgery consulted, Dr. Hernandez; help appreciated - f/u if patient can place weight on her right lower extremity Prophylactic Measures - Protonix 40mg PO daily, Probiotics - Xarelto 20mg PO daily - PT/OT - Palliative care consulted to discuss goals of care Patient discharged to rehab, [facility]. Please follow up with Dr. Lala 1 week. Please follow up with primary care physician, Dr. Gutierres. Case discussed with Dr. Nenita Martinez PGY-2
[2018-10-17] MEDS: Fluticasone-Vilanterol 100/25mcg Diskus INH SCH (09:00)
[2018-10-17] MEDS: Saccharomyces Boulardi 250 mg Cap PO SCH (10:38)
[2018-10-17] MEDS: diltiaZEM 180 mg/24 Hours CD Cap PO SCH ×2 (10:39→13:39)
[2018-10-17] MEDS: Pantoprazole 40 mg EC Tab PO SCH (10:39)
[2018-10-17] MEDS: Potassium Chloride 20 mEq ER Tab PO SCH (10:39)
[2018-10-17] MEDS: Multivitamin Vitamin B Complex (Nephro-Vite) Tab PO SCH (10:41)
[2018-10-17] MEDS: Magnesium Oxide 400 mg Tab UD PO SCH (10:41)
[2018-10-17 11:43] LABS: BASO # 0.1 K/uL (0.0-0.2); BASO % 0.5 % (0.0-2.0); EOS # 0.1 K/uL (0.0-0.7); EOS % 1.1 % (0.0-4.0); LYMPH # 1.7 K/uL (1.0-4.3); LYMPH % 17.1 % (20.0-40.0); MEAN CELL VOLUME 78.4 fL (81.0-99.0); MEAN CORPUSCULAR HEMOGLOBIN 24.4 pg (27.0-31.0); MEAN CORPUSCULAR HGB CONC 31.1 g/dL (33.0-37.0); MEAN PLATELET VOLUME 8.5 fL (7.2-11.7); MONO # 0.9 K/uL (0.0-0.8); MONO % 9.4 % (0.0-10.0); NEUT % 71.9 % (50.0-75.0); RBC 4.12 Mil/uL (3.80-5.20); RED CELL DISTRIBUTION WIDTH 22.2 % (11.5-14.5); WHITE BLOOD COUNT 9.8 K/uL (4.8-10.8)
[2018-10-17 12:00] LABS: ALB/GLOB RATIO 1.4 (1.0-2.1); ALBUMIN 3.2 g/dL (3.5-5.0); ALT/SGPT 86 U/L (9-52); AST/SGOT 42 U/L (14-36); BLOOD UREA NITROGEN 27 mg/dL (7-17); CALCIUM 8.9 mg/dl (8.6-10.4); GFR NON-AFRICAN AMERICAN > 60
[2018-10-17 16:35] VITALS: BP 133/84; PULSE 112; RESP 20; TEMP 97.8
--- NOTE | 2018-10-18 23:38 | CP.PCM.PN ---
Subjective - Date & Time of Evaluation Date of Evaluation: 10/17/18 Time of Evaluation: 10:00 - Subjective Subjective: No complaints. Objective - Vital Signs/Intake and Output Vital Signs (last 24 hours): Temp Pulse Resp BP Pulse Ox 97.8 F 112 H 20 133/84 95 10/17/18 16:00 10/17/18 16:00 10/17/18 16:00 10/17/18 16:00 10/17/18 16:00 - Labs Labs: 10/17/18 11:31 10/17/18 11:31 PT 11.0 SECONDS (9.7-12.2) 10/10/18 07:28 INR 1.0 10/10/18 07:28 APTT 25 SECONDS (21-34) 10/10/18 07:28 - Head Exam Head Exam: ATRAUMATIC - Eye Exam Eye Exam: Normal appearance - ENT Exam ENT Exam: Mucous Membranes Dry - Respiratory Exam Respiratory Exam: NORMAL BREATHING PATTERN - Cardiovascular Exam Cardiovascular Exam: +S1, +S2 - GI/Abdominal Exam GI & Abdominal Exam: Normal Bowel Sounds Assessment and Plan (1) Anemia Assessment & Plan: iron deficiency s/p supplementation Status: Acute (2) Pancreatic cancer Assessment & Plan: liver metastasis will add MSI and PDL1 testing to see if benefit from immunotherapy Status: Acute
--- NOTE | 2018-10-19 10:28 | DS ---
Ms. Llanes admitted to the hospital complaining of abdominal pain, shortness of breath. The patient found to have pancreatic mass. The patient treated with IV antibiotics for pneumonia, underwent exploratory laparotomy. The patient was found to have metastatic liver disease as well. The patient received therapy and transferred for rehab for further management. DIAGNOSES: Pancreatic cancer metastasis to the liver, deconditioning, spinal stenosis, chronic obstructive pulmonary disease, pneumonia. Angel Gutierres MD
== END 2018-10-17 16:58 | DRG 981 ==
LOC: C.ER 11:40 → C.9E 17:25 → C.5S 19:11 → OBSVTOIN 09-23 11:48 → C.5S 10-09 07:38
PROVIDERS: ADMIT Internal Medicine Pulmonary Disease; ATTEND Internal Medicine Pulmonary Disease
PROC: 0FB04ZX Excision of Liver, Percutaneous Endoscopic Approach, Diagnostic (ICD-10-PCS; principal; 2018-10-11 07:45)
PROC: 05HY33Z Insertion of Infusion Device into Upper Vein, Percutaneous Approach (ICD-10-PCS; 2018-10-12)
DX: J44.0 Chronic obstructive pulmonary disease with (acute) lower respiratory infection (principal); J18.9 Pneumonia, unspecified organism; C25.7 Malignant neoplasm of other parts of pancreas; S82.101A Unspecified fracture of upper end of right tibia, initial encounter for closed fracture; E27.40 Unspecified adrenocortical insufficiency; I50.32 Chronic diastolic (congestive) heart failure; N39.0 Urinary tract infection, site not specified; N17.9 Acute kidney failure, unspecified; C78.7 Secondary malignant neoplasm of liver and intrahepatic bile duct; J44.1 Chronic obstructive pulmonary disease with (acute) exacerbation; I11.0 Hypertensive heart disease with heart failure; E11.9 Type 2 diabetes mellitus without complications; M79.7 Fibromyalgia; F41.9 Anxiety disorder, unspecified; F32.9 Major depressive disorder, single episode, unspecified; M06.9 Rheumatoid arthritis, unspecified; Z79.01 Long term (current) use of anticoagulants; Z87.891 Personal history of nicotine dependence; E03.9 Hypothyroidism, unspecified; D50.9 Iron deficiency anemia, unspecified; I95.9 Hypotension, unspecified; B96.20 Unspecified Escherichia coli [E. coli] as the cause of diseases classified elsewhere; E55.9 Vitamin D deficiency, unspecified; X58.XXXA Exposure to other specified factors, initial encounter; M10.9 Gout, unspecified; E87.6 Hypokalemia; Z79.4 Long term (current) use of insulin; Z51.5 Encounter for palliative care; R53.81 Other malaise; L89.301 Pressure ulcer of unspecified buttock, stage 1; L30.4 Erythema intertrigo; Z86.718 Personal history of other venous thrombosis and embolism

== ENCOUNTER 2018-10-26 12:07 | Inpatient (IN) | payer BC, MEDICARE ==
[2018-10-26 12:09] VITALS: BMI 47.0
[2018-10-26 13:13] LABS: BASO # 0.1 K/uL (0.0-0.2); BASO % 1.2 % (0.0-2.0); EOS # 0.1 K/uL (0.0-0.7); EOS % 0.4 % (0.0-4.0); HEMOGLOBIN 10.6 g/dL (11.0-16.0); LYMPH # 1.9 K/uL (1.0-4.3); LYMPH % 16.3 % (20.0-40.0); MEAN CORPUSCULAR HEMOGLOBIN 23.6 pg (27.0-31.0); MEAN CORPUSCULAR HGB CONC 29.2 g/dL (33.0-37.0); MEAN PLATELET VOLUME 8.5 fL (7.2-11.7); MONO # 1.1 K/uL (0.0-0.8); MONO % 9.5 % (0.0-10.0); NEUT # 8.7 K/uL (1.8-7.0); NEUT % 72.6 % (50.0-75.0); NRBC % 0.1 % (0.0-2.0); RBC 4.51 Mil/uL (3.80-5.20); RED CELL DISTRIBUTION WIDTH 21.3 % (11.5-14.5); WHITE BLOOD COUNT 11.9 K/uL (4.8-10.8)
[2018-10-26 13:19] LABS: VENOUS BLOOD GAS BASE EXCESS 5.6 mmol/L (0.0-2.0); VENOUS BLOOD GAS PCO2 98 mmHg (40-60); VENOUS BLOOD GAS PO2 28 mm/Hg (30-55); VENOUS BLOOD PH 7.19 (7.32-7.43)
[2018-10-26 13:22] LABS: MEAN CELL VOLUME 80.7 fL (81.0-99.0)
[2018-10-26 13:33] LABS: INR 1.5; PROTHROMBIN TIME 16.2 SECONDS (9.7-12.2)
[2018-10-26 13:38] LABS: ALB/GLOB RATIO 1.4 (1.0-2.1); ALT/SGPT 123 U/L (9-52); AST/SGOT 80 U/L (14-36); BLOOD UREA NITROGEN 27 mg/dL (7-17); CALCIUM 9.5 mg/dl (8.6-10.4); GFR NON-AFRICAN AMERICAN > 60
[2018-10-26 13:47] LABS: B-TYPE NATRIURETIC PEPTIDE 899 pg/mL (0-900)
[2018-10-26] MEDS ORDERED: Naloxone 0.4 mg/ml Inj (Adult) IV ONE (13:57)
[2018-10-26] MEDS ORDERED: Naloxone 0.4 mg/ml Inj (Adult) ONE (14:00)
--- NOTE | 2018-10-26 14:18 | C.PDOC ---
History Of Present Illness 63 year old female with PMHx of COPD, pulmonary embolism, and recent diagnosis of pancreatic cancer on liver medications is sent to the ED for decreased mental status and increased shortness of breath. A couple months ago, patient had a tibia fracture and was hospitalized for immobilization and transferred to rehabilitation for therapy. HPI obtained from daughter and past charts. Limited due to patient's condition. Time Seen by Provider: 10/26/18 13:49 Chief Complaint (Nursing): Shortness Of Breath History Per: Patient, Family (Daugther ) Additional History Per: Prior Records Past Medical History Reviewed: Historical Data, Nursing Documentation, Vital Signs Vital Signs: Last Vital Signs Temp 101.4 F H 10/26/18 12:38 Pulse 134 H 10/26/18 14:06 Resp 37 H 10/26/18 14:06 BP 131/68 10/26/18 14:06 Pulse Ox 88 L 10/26/18 14:06 - Medical History PMH: Anemia, Anxiety, Arthritis (R THR /ORIF), Asthma, Cardia Arrhythmia, CHF, COPD, Depression, Diabetes, Fibromyalgia, Fractures (R HIP), Gall Bladder Disease, HTN, Hypercholesterolemia, Hyperlipidemia, Hypothyroidism, Pulmonary Embolism (on Coumadin W/ IVC filter), Rheumatoid Arthritis Denies: Deep Vein Thrombosis, Chronic Kidney Disease Surgical History: Back Surgery, Cholecystectomy Denies: Appendectomy, Pacemaker - [facility] Procedures CENTRAL VENOUS CATHETER PLACEMENT WITH GUIDANCE (09/28/14) ENDOSC POLYPECTOMY OF LG INTEST (09/08/14) ESOPHAGOGASTRODUODENOSCOPY [EGD] W/CLOSED BIOPSY (09/08/14) EXCISION OF LIVER, PERCUTANEOUS ENDOSCOPIC APPROACH, DIAGN (09/23/18) EXCISION OF STOMACH, ENDO, DIAGN (11/19/15) INSERTION OF INFUSION DEVICE INTO UPPER VEIN, PERC APPROACH (09/23/18) REPOSITION R UP FEMUR WITH INTRAMED FIX, OPEN APPROACH (03/14/17) SPINAL CANAL EXPLOR NEC (09/08/14) Family History: States: No Known Family Hx - Social History Hx Tobacco Use: No Hx Alcohol Use: No Hx Substance Use: No - Immunization History Hx Tetanus Toxoid Vaccination: No Hx Influenza Vaccination: No Hx Pneumococcal Vaccination: No Review Of Systems Constitutional: Negative for: Fever, Chills Respiratory: Positive for: Shortness of Breath Gastrointestinal: Negative for: Nausea, Vomiting, Abdominal Pain, Diarrhea Neurological: Positive for: Other (decreased mental status ) Physical Exam - Physical Exam Appears: Non-toxic, Other (somnolent but arousable ) Skin: Warm, Dry, Other Head: Normacephalic Eye(s): bilateral: Other (constricted and reactive pupils, periorbital edema ) Nose: Normal Oral Mucosa: Moist Neck: Supple Chest: Symmetrical Cardiovascular: Rhythm Regular, Other (Tachycardic ) Respiratory: Rhonchi (diffused coarse rhonchi ), Other (Shallow breathing) Gastrointestinal/Abdominal: Soft, No Tenderness, Other (morbidly ) Extremity: Other (peripheral dependent edema ) ED Course And Treatment - Laboratory Results Result Diagrams: 10/26/18 13:10 10/26/18 13:10 Lab Results: pO2 28 mm/Hg (30-55) L 10/26/18 13:16 VBG pH 7.19 (7.32-7.43) L* 10/26/18 13:16 VBG pCO2 98 mmHg (40-60) H* 10/26/18 13:16 VBG HCO3 27.7 mmol/L 10/26/18 13:16 VBG Total CO2 40.4 mmol/L (22-28) H 10/26/18 13:16 VBG O2 Sat (Calc) 58.1 % (40-65) 10/26/18 13:16 VBG Base Excess 5.6 mmol/L (0.0-2.0) H 10/26/18 13:16 VBG Potassium 3.9 mmol/L (3.6-5.2) 10/26/18 13:16 Sodium 140.0 mmol/l (132-148) 10/26/18 13:16 Chloride 99.0 mmol/L (98-107) 10/26/18 13:16 Glucose 191 mg/dl (65-105) H 10/26/18 13:16 Lactate 1.2 mmol/L (0.7-2.1) 10/26/18 13:16 Crit Value Called To Dr vance 10/26/18 13:16 Crit Value Called By Ross fregoso physical fitness teacher 10/26/18 13:16 Crit Value Read Back Y 10/26/18 13:16 Blood Gas Notified Time 1319 10/26/18 13:16 PT 16.2 SECONDS (9.7-12.2) H 10/26/18 13:10 INR 1.5 10/26/18 13:10 APTT 29.0 SECONDS (21-34) 10/26/18 13:10 Troponin I 0.0300 ng/mL (0.00-0.120) 10/26/18 13:10 NT-Pro-B Natriuret Pep 899 pg/mL (0-900) 10/26/18 13:10 Total Bilirubin 0.5 mg/dL (0.2-1.3) 10/26/18 13:10 AST 80 U/L (14-36) H D 10/26/18 13:10 ALT 123 U/L (9-52) H D 10/26/18 13:10 Alkaline Phosphatase 153 U/L (38-126) H D 10/26/18 13:10 Total Protein 6.9 g/dL (6.3-8.3) 10/26/18 13:10 Albumin 4.0 g/dL (3.5-5.0) 10/26/18 13:10 Globulin 2.9 gm/dL (2.2-3.9) 10/26/18 13:10 Albumin/Globulin Ratio 1.4 (1.0-2.1) 10/26/18 13:10 Lab Interpretation: Abnormal (WBC 11.9, BUN 27, Mild elevation of liver functions with normal bili, normal troponin and BNP, pO2 52, pCO2 57, with pH 7.38) ECG: Interpreted By Pr ECG Rhythm: Sinus Tachycardia O2 Sat by Pulse Oximetry: 88 (RA) Pulse Ox Interpretation: Abnormal - Radiology CXR: Interpreted by Me CXR Interpretation: Yes: Cardiomegaly (with poor inspiration, bilateral pleural effusions) - Other Rad CXR X-Ray: Viewed By Me, Read By Radiologist Interpretation: Accession No. : [id number]. Patient Name / ID : STEPHANIE MONROY / [id number]. Exam Date : 10/26/2018 14:04:23 ( Approved ). Study Comment : Sex / Age : F / [id number]. Creator : Yamileth Avila MD. Dictator : Yamileth Avila MD. Clinical Rehabilitation Liaison : [facility] Recovery Operator : Yamileth Avila MD. Approver2 : Report Date : 10/26/2018 14:22:05. My Comment : . Date of service: 10/26/2018. HISTORY: Shortness of breath. COMPARISON: 09/20/2018. FINDINGS: LUNGS: There are low lung volumes. There is moderate pulmonary venous congestion. There is linear scarring in the right mid lung and discoid atelectasis in the left upper lobe and lingula. PLEURA: Suspect small effusions. No pneumothorax. CARDIOVASCULAR: The heart is normal in size. No aortic atherosclerotic calcifications present. OSSEOUS STRUCTURES: Within normal limits for the patient's age. VISUALIZED UPPER ABDOMEN: Normal. OTHER FINDINGS: None. IMPRESSION: Findings are concerning for developing congestive heart failure. Low lung volumes may be related to poor inspiratory effort. Progress Note: Patient given Narcan in ED with good results. Patient more alert and responsive with increased respiratory rate and effort. Placed on BIPAP. Reevaluation Time: 16:11 Reassessment Condition: Improved - Physician Consult Information Time Consulting Physician Contacted: 16:16 Physician Contacted: Yaneli Wu Outcome Of Conversation: covering for Dr Gutierres. Will admit to tele for exacerbation COPD with probable pneumonia Medical Decision Making Medical Decision Making: Plan - CXR - Tylenol 975mg [place] - Narcan 0.4mg IV - Bloodwork - UA Disposition - Disposition Disposition: HOSPITALIZED Disposition Time: 16:19 Condition: GUARDED - Clinical Impression Clinical Impression: Chr obstructive pulmonary disease w/ acute lower respiratory infxn, Respiratory distress, Pancreatic cancer - Scribe Statement The provider has reviewed the documentation as recorded by the Scribe Evelia Morley All medical record entries made by the Scribe were at my direction and personally dictated by me. I have reviewed the chart and agree that the record accurately reflects my personal performance of the history, physical exam, medical decision making, and the department course for this patient. I have also personally directed, reviewed, and agree with the discharge instructions and d isposition.
--- NOTE | 2018-10-26 14:25 | RAD ---
Date of service: 10/26/2018 HISTORY: Shortness of breath COMPARISON: 09/20/2018. FINDINGS: LUNGS: There are low lung volumes. There is moderate pulmonary venous congestion. There is linear scarring in the right mid lung and discoid atelectasis in the left upper lobe and lingula. PLEURA: Suspect small effusions. No pneumothorax CARDIOVASCULAR: The heart is normal in size. No aortic atherosclerotic calcifications present. OSSEOUS STRUCTURES: Within normal limits for the patient's age. VISUALIZED UPPER ABDOMEN: Normal. OTHER FINDINGS: None. IMPRESSION: Findings are concerning for developing congestive heart failure. Low lung volumes may be related to poor inspiratory effort.
[2018-10-26] MEDS ORDERED: Piperacill/Tazo 3.375gm in Dex 3.375 GM/50 ML BAG IV STA (15:32)
[2018-10-26] MEDS ORDERED: Vancomycin 1 gm/NS 200 ml 1 GM/200 ML BAG IVPB STA (15:32)
[2018-10-26 15:58] LABS: SQUAMOUS EPITHIAL < 1 /hpf (0-5); URINE BACTERIA RARE (<OCC); URINE BILIRUBIN NEGATIVE (NEGATIVE); URINE BLOOD NEGATIVE (NEGATIVE); URINE CLARITY Hazy (Clear); URINE COLOR Yellow (YELLOW); URINE GLUCOSE (UA) NORMAL (Normal); URINE LEUKOCYTE ESTERASE TRACE Leu/uL (Negative); URINE PROTEIN NEGATIVE (NEGATIVE); URINE UROBILINOGEN NORMAL mg/dL (0.2-1.0)
[2018-10-26 16:00] LABS: ABG ALLEN TEST POS; ARTERIAL BLOOD GAS HCO3 30.6 mmol/L (21-28); ARTERIAL BLOOD GAS HEMOGLOBIN 9.1 g/dL (11.7-17.4); ARTERIAL BLOOD GAS O2 SAT 93.1 % (95-98); ARTERIAL BLOOD GAS PCO2 57 mm/Hg (35-45); ARTERIAL BLOOD GAS PH 7.38 (7.35-7.45); ARTERIAL BLOOD GAS PO2 52 mm/Hg (80-100); ARTERIAL BLOOD GAS TCO2 35.4 mmol/L (22-28)
[2018-10-26] MEDS ORDERED: Piperacillin/Tazobact 3.375 gm 100 ML IVPB ONE (16:00)
--- NOTE | 2018-10-26 16:31 | CP.PCM.HP ---
<Jair Mancini - Last Filed: 10/26/18 18:43> History of Present Illness - History of Present Illness History of Present Illness: PGY-1 History and Physical for Dr. Farrell Patient is a 63 year old [place] female with extensive past medical history including pancreatic cancer with mets to liver, COPD, hx of DVT/PE on xarelto, COPD, DM, anemia, fibromyalgia, anxiety presenting to ED from rehab facility with worsening shortness of breath, altered mental status, and coughing up blood. Patient recently had a tibial fracture and was hospitalized for immobilization with transfer to rehab facility. and youngest daughter were both present at bedside. In the ED patient was lethargic, prior VBG noted a pH of 7.19. She was given Narcan x 1 in the ED and mental status subsequently improved. Patient was placed on Bipap for respiratory distress with noted improvement. On interview, patient was awake, alert and oriented x 3, speaking with both daughter and at bedside. Patient reports that she has been coughing for a while now but that today it started becoming bloody. She does feel warm to touch. Patient has been chronically on Xarelto for known history of DVT/PE. Patient has completed rehab for last hospitalization for fracture of the right proximal tibia. Extensive conversation was had with patient regarding CODE STATUS, with daughter and at bedside (see Medical attending note for full detail). There is no health proxy. There is no advanced care directive. Ultimately, patient decided that she would like to be full code at this moment in time. We did not speak to her regarding her cancer, given that she is awaiting outpatient follow-up with Dr. Lala this upcoming Wednesday to discuss her prognosis and plans going forward. PMHx: fibromyalgia, generalized osteoarthritis, NIDDM, HTN, anxiety (on Valium), DVT/PE (on Coumadin), COPD and hx of Anemia PSHx: right hip intertroch ORIF IM nail (03/2017), multiple abdominal surgeries for unknown reasons (EMR states Cholecystectomy, Hysterectomy, Appendectomy Allergies: NKDA Home Meds: reviewed Social Hx: Denies smoking, alcohol or illicit drug use Family Hx: unknown PMD: Dr. Gutierres Present on Admission - Present on Admission Any Indicators Present on Admission: Yes History of DVT/PE: Yes Decubitus Ulcer Present: Yes Decubitus Ulcer Location: sacral Decubitus Ulcer Stage: II Review of Systems - Review of Systems All systems: reviewed and no additional remarkable complaints except Review of Systems: as per HPI Past Patient History - Infectious Disease Hx of Infectious Diseases: None, C.diff - Past Medical History & Family History Past Medical History?: Yes - Past Social History Smoking Status: Never Smoked - CARDIAC Hx Cardia Arrhythmia: Yes Hx Congestive Heart Failure: Yes Hx Hypercholesterolemia: Yes Hx Hypertension: Yes Hx Pacemaker: No - PULMONARY Hx Asthma: Yes Hx Chronic Obstructive Pulmonary Disease (COPD): Yes Hx Pulmonary Embolism: Yes (on Coumadin W/ IVC filter) - NEUROLOGICAL Hx Neurological Disorder: Yes HX Cerebrovascular Accident: Yes - HEENT Hx HEENT Problems: No - RENAL Hx Chronic Kidney Disease: No - ENDOCRINE/METABOLIC Hx Hypothyroidism: Yes - HEMATOLOGICAL/ONCOLOGICAL Hx Anemia: Yes - INTEGUMENTARY Hx Dermatological Problems: No - MUSCULOSKELETAL/RHEUMATOLOGICAL Hx Arthritis: Yes (R THR /ORIF) Hx Fractures: Yes (R HIP) Hx Rheumatoid Arthritis: Yes - GASTROINTESTINAL Hx Gall Bladder Disease: Yes - GENITOURINARY/GYNECOLOGICAL Hx Genitourinary Disorders: Yes Hx Urinary Tract Infection: Yes - PSYCHIATRIC Hx Anxiety: Yes Hx Depression: Yes Hx Substance Use: No - SURGICAL HISTORY Hx Appendectomy: No Hx Cholecystectomy: Yes - ANESTHESIA Hx Anesthesia Reactions: Yes (DIFFICULTY BREATHING) Meds Allergies/Adverse Reactions: Allergies Allergy/AdvReac Type Severity Reaction Status Date / Time No Known Allergies Allergy Verified 10/26/18 12:08 Physical Exam - Constitutional Appears: Chronically Ill Additional comments: morbidly obese female, aware, alert, clinically dry on exam - Head Exam Head Exam: ATRAUMATIC, NORMAL INSPECTION, NORMOCEPHALIC - Eye Exam Eye Exam: EOMI, Normal appearance, PERRL Pupil Exam: NORMAL ACCOMODATION - ENT Exam ENT Exam: Mucous Membranes Dry, Normal Exam Additional comments: dried blood noted and cracked lips on BIPAP - Neck Exam Neck exam: Positive for: Full Rom, Normal Inspection - Respiratory Exam Respiratory Exam: Decreased Breath Sounds, Rales, Rhonchi - Cardiovascular Exam Cardiovascular Exam: Tachycardia, +S1, +S2 - GI/Abdominal Exam GI & Abdominal Exam: Distended, Normal Bowel Sounds, Soft. absent: Firm, Guarding, Rebound, Tenderness Additional comments: mild ecchymotic area over the right lower aspect of her abdomen - Extremities Exam Extremities exam: Positive for: normal capillary refill, pedal edema, pedal pulses present. Negative for: calf tenderness - Back Exam Back exam: NORMAL INSPECTION Additional comments: erythema noted along intertriginous folds of the groin but appears improved healing potentially sacral to ulcer per the daughter it has been open in the past it is currently closed. - Neurological Exam Neurological exam: Alert, Oriented x3 - Skin Skin Exam: Dry, Normal Color, Warm Additional comments: stage II sacral decubitus ulcer noted, healing appropriately Results - Vital Signs Recent Vital Signs: Last Vital Signs Temp 100.3 F H 10/26/18 15:37 Pulse 124 H 10/26/18 16:11 Resp 22 10/26/18 15:23 BP 115/65 10/26/18 15:23 Pulse Ox 88 L 10/26/18 16:20 - Labs Result Diagrams: 10/26/18 13:10 10/26/18 13:10 Labs: Laboratory Results - last 24 hr 10/26/18 10/26/18 10/26/18 13:10 13:10 13:10 WBC 11.9 H RBC 4.51 Hgb 10.6 L Hct 36.4 MCV 80.7 L D MCH 23.6 L MCHC 29.2 L RDW 21.3 H Plt Count 349 MPV 8.5 Neut % (Auto) 72.6 Lymph % (Auto) 16.3 L [place] % (Auto) 9.5 Eos % (Auto) 0.4 Baso % (Auto) 1.2 Neut # (Auto) 8.7 H Lymph # (Auto) 1.9 [place] # (Auto) 1.1 H Eos # (Auto) 0.1 Baso # (Auto) 0.1 PT 16.2 H INR 1.5 APTT 29.0 Puncture Site pCO2 pO2 HCO3 ABG pH ABG Total CO2 ABG O2 Saturation ABG Base Excess ABG Hemoglobin ABG Carboxyhemoglobin POC ABG HHb (Measured) ABG Methemoglobin Nicholas Test VBG pH VBG pCO2 VBG HCO3 VBG Total CO2 VBG O2 Sat (Calc) VBG Base Excess VBG Potassium A-a O2 Difference Respiratory Index Hgb O2 Saturation Glucose Lactate Vent Mode FiO2 Inspiratory BiPAP Expiratory BiPAP Crit Value Called To Crit Value Called By Crit Value Read Back Blood Gas Notified Time Sodium 137 Potassium 3.9 Chloride 95 L Carbon Dioxide 35 H Anion Gap 11 BUN 27 H Creatinine 0.9 Est GFR ( Amer) > 60 Est GFR (Non-Af Amer) > 60 Random Glucose 182 H D Calcium 9.5 Total Bilirubin 0.5 AST 80 H D ALT 123 H D Alkaline Phosphatase 153 H D Troponin I 0.0300 NT-Pro-B Natriuret Pep 899 Total Protein 6.9 Albumin 4.0 Globulin 2.9 Albumin/Globulin Ratio 1.4 Venous Blood Potassium Urine Color Urine Clarity Urine pH Ur Specific [place] Urine Protein Urine Glucose (UA) Urine Ketones Urine Blood Urine Nitrate Urine Bilirubin Urine Urobilinogen Ur Leukocyte Esterase Urine WBC (Auto) Urine RBC (Auto) Ur Squamous Epith Cells Urine Bacteria Hyaline Casts 10/26/18 10/26/18 10/26/18 13:16 15:41 15:50 WBC RBC Hgb Hct MCV MCH MCHC RDW Plt Count MPV Neut % (Auto) Lymph % (Auto) [place] % (Auto) Eos % (Auto) Baso % (Auto) Neut # (Auto) Lymph # (Auto) [place] # (Auto) Eos # (Auto) Baso # (Auto) PT INR APTT Puncture Site Rra pCO2 57 H pO2 28 L 52 L HCO3 30.6 H ABG pH 7.38 ABG Total CO2 35.4 H ABG O2 Saturation 93.1 L ABG Base Excess 7.4 H ABG Hemoglobin 9.1 L ABG Carboxyhemoglobin 2.2 H POC ABG HHb (Measured) 6.7 H ABG Methemoglobin 1.0 Nicholas Test Pos VBG pH 7.19 L* VBG pCO2 98 H* VBG HCO3 27.7 VBG Total CO2 40.4 H VBG O2 Sat (Calc) 58.1 VBG Base Excess 5.6 H VBG Potassium 3.9 A-a O2 Difference 162.0 Respiratory Index 3.1 Hgb O2 Saturation 90.1 L Glucose 191 H Lactate 1.2 Vent Mode Bipap FiO2 40.0 Inspiratory BiPAP 12 Expiratory BiPAP 6 Crit Value Called To Dr vance Crit Value Called By Ross fregoso educational psychology teacher Crit Value Read Back Y Blood Gas Notified Time 1319 Sodium 140.0 Potassium Chloride 99.0 Carbon Dioxide Anion Gap BUN Creatinine Est GFR ( Amer) Est GFR (Non-Af Amer) Random Glucose Calcium Total Bilirubin AST ALT Alkaline Phosphatase Troponin I NT-Pro-B Natriuret Pep Total Protein Albumin Globulin Albumin/Globulin Ratio Venous Blood Potassium 3.9 Urine Color Yellow Urine Clarity Hazy Urine pH 5.0 Ur Specific [place] 1.013 Urine Protein Negative Urine Glucose (UA) Normal Urine Ketones Negative Urine Blood Negative Urine Nitrate Negative Urine Bilirubin Negative Urine Urobilinogen Normal Ur Leukocyte Esterase Trace Urine WBC (Auto) 3 Urine RBC (Auto) 1 Ur Squamous Epith Cells < 1 Urine Bacteria Rare Hyaline Casts 3-5 H Assessment & Plan - Assessment and Plan (Free Text) Plan: Metabolic encephalopathy -lethargic on admission -s/p narcan x 1 in ED -clinically improved, now alert and oriented x3 -UDS -will f/u with [facility] re:prescribed meds Acute Respiratory Distress Hx of COPD -Bipap prn -solumedrol 40 mg IVP q8h leandro -duonebs 3q4 prn -protonix 40 mg IV daily -Pulmonology (Dr. Dickerson) on board Healthcare associated pneumonia -recurring pneumonia, coming from rehab facility -CXR: Findings concerning for developing CHF. Low lung volumes may be related to poor inspiratory effort -sputum cultures -Mycoplasma IgM, legionella, strep pneumo -empiric IV abx -Vancomycin 1 gm IV daily -Zosyn 3.375 q6h Fever -CXR: Findings concerning for developing CHF. Low lung volumes may be related to poor inspiratory effort -Blood, urine cultures -Procalcitonin -Empiric IV abx (see A&P above) Pancreatic cancer with Liver mets -s/p diagnostic laparascopy: metastasis to the liver, grossly single nodule. Cystic lesion and harden pancreas. -pathology results from liver biopsy: Adenocarcinoma -s/p distal pancreatectomy 10/11/18 -patient has outpatient appt with Dr. Lala next week -Heme/Onc (Dr. Lala) on board -Pastoral care on board Hx of DVT/PE on xarelto -continue home xarelto 20 mg PO daily Fibromyalgia -will hold all opioid medications for 24 hrs given clinical status Hx of Gout -c/w home colchicine DM -accuchecks q6 -hypoglycemic protocol -ISS medium -c/w home Novolog 12 units, Lantus 24 units, januvia -held home glipizide Hypothyroidism -c/w home synthroid 100 mc PO daily Adrenal Insufficiency -on home prednisone 10 mg PO daily -will hold prednisone in lieu of solumedrol being added PPx, Diet, Disposition -DVT ppx: Xarelto 20 mg PO daily -GI ppx: Protonix 40 mg IVP daily -Diet: HHD -PT/OT on board Case discussed with Dr. Jami Mancini DO, PGY-1 <Cinthya Farrell V - Last Filed: 10/26/18 23:43> Results - Vital Signs Recent Vital Signs: Last Vital Signs Temp 100.9 F H 10/26/18 17:22 Pulse 112 H 10/26/18 17:06 Resp 20 10/26/18 17:06 BP 108/67 10/26/18 17:06 Pulse Ox 94 L 10/26/18 21:40 - Labs Result Diagrams: 10/26/18 13:10 10/26/18 13:10 Labs: Laboratory Results - last 24 hr 10/26/18 10/26/18 10/26/18 13:10 13:10 13:10 WBC 11.9 H RBC 4.51 Hgb 10.6 L Hct 36.4 MCV 80.7 L D MCH 23.6 L MCHC 29.2 L RDW 21.3 H Plt Count 349 MPV 8.5 Neut % (Auto) 72.6 Lymph % (Auto) 16.3 L [place] % (Auto) 9.5 Eos % (Auto) 0.4 Baso % (Auto) 1.2 Neut # (Auto) 8.7 H Lymph # (Auto) 1.9 [place] # (Auto) 1.1 H Eos # (Auto) 0.1 Baso # (Auto) 0.1 PT 16.2 H INR 1.5 APTT 29.0 Puncture Site pCO2 pO2 HCO3 ABG pH ABG Total CO2 ABG O2 Saturation ABG Base Excess ABG Hemoglobin ABG Carboxyhemoglobin POC ABG HHb (Measured) ABG Methemoglobin Nicholas Test VBG pH VBG pCO2 VBG HCO3 VBG Total CO2 VBG O2 Sat (Calc) VBG Base Excess VBG Potassium A-a O2 Difference Respiratory Index Hgb O2 Saturation Glucose Lactate Vent Mode FiO2 Inspiratory BiPAP Expiratory BiPAP Crit Value Called To Crit Value Called By Crit Value Read Back Blood Gas Notified Time Sodium 137 Potassium 3.9 Chloride 95 L Carbon Dioxide 35 H Anion Gap 11 BUN 27 H Creatinine 0.9 Est GFR ( Amer) > 60 Est GFR (Non-Af Amer) > 60 POC Glucose (mg/dL) Random Glucose 182 H D Calcium 9.5 Total Bilirubin 0.5 AST 80 H D ALT 123 H D Alkaline Phosphatase 153 H D Troponin I 0.0300 NT-Pro-B Natriuret Pep 899 Total Protein 6.9 Albumin 4.0 Globulin 2.9 Albumin/Globulin Ratio 1.4 Procalcitonin Venous Blood Potassium Urine Color Urine Clarity Urine pH Ur Specific [place] Urine Protein Urine Glucose (UA) Urine Ketones Urine Blood Urine Nitrate Urine Bilirubin Urine Urobilinogen Ur Leukocyte Esterase Urine WBC (Auto) Urine RBC (Auto) Ur Squamous Epith Cells Urine Bacteria Hyaline Casts Mycoplasma pneumon IgM 10/26/18 10/26/18 10/26/18 13:16 15:41 15:50 WBC RBC Hgb Hct MCV MCH MCHC RDW Plt Count MPV Neut % (Auto) Lymph % (Auto) [place] % (Auto) Eos % (Auto) Baso % (Auto) Neut # (Auto) Lymph # (Auto) [place] # (Auto) Eos # (Auto) Baso # (Auto) PT INR APTT Puncture Site Rra pCO2 57 H pO2 28 L 52 L HCO3 30.6 H ABG pH 7.38 ABG Total CO2 35.4 H ABG O2 Saturation 93.1 L ABG Base Excess 7.4 H ABG Hemoglobin 9.1 L ABG Carboxyhemoglobin 2.2 H POC ABG HHb (Measured) 6.7 H ABG Methemoglobin 1.0 Nicholas Test Pos VBG pH 7.19 L* VBG pCO2 98 H* VBG HCO3 27.7 VBG Total CO2 40.4 H VBG O2 Sat (Calc) 58.1 VBG Base Excess 5.6 H VBG Potassium 3.9 A-a O2 Difference 162.0 Respiratory Index 3.1 Hgb O2 Saturation 90.1 L Glucose 191 H Lactate 1.2 Vent Mode Bipap FiO2 40.0 Inspiratory BiPAP 12 Expiratory BiPAP 6 Crit Value Called To Dr vance Crit Value Called By Ross fregoso educational psychology teacher Crit Value Read Back Y Blood Gas Notified Time 1319 Sodium 140.0 Potassium Chloride 99.0 Carbon Dioxide Anion Gap BUN Creatinine Est GFR ( Amer) Est GFR (Non-Af Amer) POC Glucose (mg/dL) Random Glucose Calcium Total Bilirubin AST ALT Alkaline Phosphatase Troponin I NT-Pro-B Natriuret Pep Total Protein Albumin Globulin Albumin/Globulin Ratio Procalcitonin Venous Blood Potassium 3.9 Urine Color Yellow Urine Clarity Hazy Urine pH 5.0 Ur Specific [place] 1.013 Urine Protein Negative Urine Glucose (UA) Normal Urine Ketones Negative Urine Blood Negative Urine Nitrate Negative Urine Bilirubin Negative Urine Urobilinogen Normal Ur Leukocyte Esterase Trace Urine WBC (Auto) 3 Urine RBC (Auto) 1 Ur Squamous Epith Cells < 1 Urine Bacteria Rare Hyaline Casts 3-5 H Mycoplasma pneumon IgM 10/26/18 10/26/18 10/26/18 20:07 20:07 21:22 WBC RBC Hgb Hct MCV MCH MCHC RDW Plt Count MPV Neut % (Auto) Lymph % (Auto) [place] % (Auto) Eos % (Auto) Baso % (Auto) Neut # (Auto) Lymph # (Auto) [place] # (Auto) Eos # (Auto) Baso # (Auto) PT INR APTT Puncture Site pCO2 pO2 HCO3 ABG pH ABG Total CO2 ABG O2 Saturation ABG Base Excess ABG Hemoglobin ABG Carboxyhemoglobin POC ABG HHb (Measured) ABG Methemoglobin Nicholas Test VBG pH VBG pCO2 VBG HCO3 VBG Total CO2 VBG O2 Sat (Calc) VBG Base Excess VBG Potassium A-a O2 Difference Respiratory Index Hgb O2 Saturation Glucose Lactate Vent Mode FiO2 Inspiratory BiPAP Expiratory BiPAP Crit Value Called To Crit Value Called By Crit Value Read Back Blood Gas Notified Time Sodium Potassium Chloride Carbon Dioxide Anion Gap BUN Creatinine Est GFR ( Amer) Est GFR (Non-Af Amer) POC Glucose (mg/dL) 252 H Random Glucose Calcium Total Bilirubin AST ALT Alkaline Phosphatase Troponin I NT-Pro-B Natriuret Pep Total Protein Albumin Globulin Albumin/Globulin Ratio Procalcitonin 1.45 H Venous Blood Potassium Urine Color Urine Clarity Urine pH Ur Specific [place] Urine Protein Urine Glucose (UA) Urine Ketones Urine Blood Urine Nitrate Urine Bilirubin Urine Urobilinogen Ur Leukocyte Esterase Urine WBC (Auto) Urine RBC (Auto) Ur Squamous Epith Cells Urine Bacteria Hyaline Casts Mycoplasma pneumon IgM Negative Assessment & Plan (1) Chr obstructive pulmonary disease w/ acute lower respiratory infxn Status: Acute (2) Pancreatic cancer Status: Acute (3) Respiratory distress Status: Acute (4) COPD (chronic obstructive pulmonary disease) Status: Acute (5) Closed fracture of right proximal tibia Status: Acute (6) Depression Status: Acute (7) Diabetes mellitus Status: Acute (8) History of DVT (deep vein thrombosis) Status: Acute (9) Hyperlipidemia Status: Acute (10) Hypothyroid Status: Acute (11) Pancreatic mass Status: Acute (12) Pneumonia Status: Acute (13) Prophylactic measure Status: Acute (14) Tachycardia Status: Acute (15) Vitamin D deficiency Status: Acute (16) CHF (congestive heart failure) Status: Chronic Priority: Medium (17) Fibromyalgia Status: Chronic Priority: Low (18) HTN (hypertension) Status: Chronic Priority: Medium Attending/Attestation - Attestation I have personally seen and examined this patient.: Yes I have fully participated in the care of the patient.: Yes I have reviewed all pertinent clinical information: Yes Notes (Text): Please see my progress note for 10/26/18 encounter. Discussed admitting orders and assessment and plan with day-time resident at time of admission.
[2018-10-26] MEDS ORDERED: Glucagon Recombinant 1 mg Inj IM PRN (17:28)
[2018-10-26] MEDS ORDERED: Dextrose 50% SYRINGE Inj (50 ml) IVP PRN (17:28)
[2018-10-26] MEDS ORDERED: Trimethobenzamide 200 mg/2 mL Inj IM PRN (17:34)
--- NOTE | 2018-10-26 17:47 | CP.PCM.PN ---
Subjective - Date & Time of Evaluation Date of Evaluation: 10/26/18 Time of Evaluation: 16:45 - Subjective Subjective: Brief hospitalist note Hospitalist service, Dr. Gutierres to October 29, 2018 Patient seen and examined in bed 6 in the emergency room approximately 4:45 PM with both her youngest daughter and at bedside. Patient is a 63-year-old female with a past medical history quite extensive including but not limited to fibromyalgia, liver metastatic cancer, pancreatic cancer, diastolic heart failure, prior history of DVT, prior history of PE, atrial fibrillation, COPD, hypertension, adrenal insufficiency, hypothyroidism, gout, depression and recently recurrent closed fracture of the right proximal tibia who recently came from a subacute rehab following lethargy, confusion, and coughing up blood. In the ED patient was lethargic prior VBG noted with a pH of 7.19 she had received Narcan patient mental status improved patient placed on BiPAP patient is awake alert oriented speaking with both her daughter and at bedside. Patient is able to make jokes. Patient reports that she is been having a cough she feels warm to touch and notes that the coughing up the blood started today. Patient has been chronically on Xarelto for known history of DVT/PE. Patient has completed rehab for last hospitalization for fracture of the right proximal tibia. In terms of CODE STATUS I did have quite a bit discussion with the patient her daughter and at bedside. There is no health proxy. There is no advanced care directive. There has been some difficulty in terms of having a goals of care and CODE STATUS discussion when I speak with the daughter in light of the recent cancer diagnosis. The daughter who is the youngest is trying to balance between both the [employer] culture which promotes living versus the wishes of her mother and what her father wants as well. I did indicate to her that since her mother is awake alert oriented x3 he can have this discussion with the mother and is ultimately the mother's choice in terms of what she wants but she needs to understand terms of what is that she wants and what may happen. When I speak with the with the patient she reports that if her heart stops be given a chance in terms of coming back meaning restarting the heart and will allow for a breathing machine. However she also reports that she wants in meaningful recovery to her life being the ability to talk and laugh and communicate with her family so she understands that after the first try if she does not come back she may end up dying because she does not want to be connected to machines rest of her for the rest of her life. Both the daughter and my resident and myself bedside understand that she is full code at this time. We did not speak in terms of her cancer given that she is awaiting outpatient follow-up with Dr. johnson this upcoming Wednesday in regards to her prognosis however I do believe that this will add layer as well in terms of her CODE STATUS if she wants to change her mind or not. Patient is a morbidly obese female awake alert dry on exam has some dried blood within the mouth as well as cracked lips on BiPAP she is able to communicate in both Persian and Greek Greek is preferred. Patient is tachycardic on exam patient because of obese habitus is difficult to appreciate lung sounds but she does appear to be globally congested. Patient is morbidly obese she does have a mild ecchymotic area over the right lower aspect of her abdomen. Towards the intertriginous folds of the groin there is some erythema but appears improved. Patient noted to have a dropfoot over the right lower extremity which the daughter reports that that is chronic. Skin appears dry. We did check the back as well back looks like a healing potentially sacral to ulcer per the daughter it has been open in the past it is currently closed. Further orders will be discussed with resident who is placing now. We will put in empiric antibiotic treatment for half healthcare associated pneumonia no treatment for COPD we will hold her sedative medications for 24 hours we will put seizure precautions aspiration precautions continue BiPAP as needed IV steroid treatment mild COPD we will be careful with IV fluids in light of diastolic heart failure. Full H&P to fall but is being written by the resident. Objective - Vital Signs/Intake and Output Vital Signs (last 24 hours): Temp Pulse Resp BP Pulse Ox 100.9 F H 112 H 20 108/67 99 10/26/18 17:22 10/26/18 17:06 10/26/18 17:06 10/26/18 17:06 10/26/18 17:06 Intake and Output: 10/26/18 10/26/18 06:59 18:59 Output Total 200 Balance -200 - Medications Medications: Current Medications Dextrose (Dextrose 50% Inj) 0 ml IVP .STAT PRN; Protocol PRN Reason: Hypoglycemia Protocol Dextrose (Glutose 15) 0 gm PO .ONCE PRN; Protocol PRN Reason: Hypoglycemia Protocol Glucagon (Glucagen Diagnostic Kit) 0 mg IM .STAT PRN; Protocol PRN Reason: Hypoglycemia Protocol Dextrose (Dextrose 5% In Water 1000 Ml) 1,000 mls @ 0 mls/hr IV .Q0M PRN; Protocol PRN Reason: Hypoglycemia Protocol - Labs Labs: 10/26/18 13:10 10/26/18 13:10 PT 16.2 SECONDS (9.7-12.2) H 10/26/18 13:10 INR 1.5 10/26/18 13:10 APTT 29.0 SECONDS (21-34) 10/26/18 13:10 Assessment and Plan (1) Chr obstructive pulmonary disease w/ acute lower respiratory infxn Status: Acute (2) Pancreatic cancer Status: Acute (3) Respiratory distress Status: Acute (4) COPD (chronic obstructive pulmonary disease) Status: Acute (5) Closed fracture of right proximal tibia Status: Acute (6) Depression Status: Acute (7) Diabetes mellitus Status: Acute (8) History of DVT (deep vein thrombosis) Status: Acute (9) Hyperlipidemia Status: Acute (10) Hypothyroid Status: Acute (11) Pancreatic mass Status: Acute (12) Pneumonia Status: Acute (13) Prophylactic measure Status: Acute (14) Tachycardia Status: Acute (15) Vitamin D deficiency Status: Acute (16) CHF (congestive heart failure) Status: Chronic (17) Fibromyalgia Status: Chronic (18) HTN (hypertension) Status: Chronic
--- NOTE | 2018-10-26 18:43 | CP.PCM.CON ---
History of Present Illness - History of Present Illness History of Present Illness: Reason for consultation: Shortness of breath and productive cough 63-year-old female recently diagnosed with pancreatic cancer with mets to liver, COPD, history of DVT/pulmonary embolism on anticoagulation, anemia, fibromyalgia presented to emergency room with worsening shortness of breath and cough productive of blood-tinged sputum. Patient recently had a tibial fracture and was transferred to rehab. Patient was placed on BiPAP in the emergency room for hypercapnia and hypoxemia. PMHx: fibromyalgia, generalized osteoarthritis, NIDDM, HTN, anxiety (on Valium), DVT/PE (on Coumadin), COPD and hx of Anemia PSHx: right hip intertroch ORIF IM nail (03/2017), multiple abdominal surgeries for unknown reasons (EMR states Cholecystectomy, Hysterectomy, Appendectomy Allergies: NKDA Home Meds: reviewed Social Hx: Denies smoking, alcohol or illicit drug use Family Hx: unknown PMD: Dr. Gutierres Review of Systems - Review of Systems All systems: reviewed and no additional remarkable complaints except (Shortness of breath and cough productive of blood-tinged sputum) Past Patient History - Infectious Disease Hx of Infectious Diseases: None, C.diff - Past Medical History & Family History Past Medical History?: Yes - Past Social History Smoking Status: Never Smoked - CARDIAC Hx Cardia Arrhythmia: Yes Hx Congestive Heart Failure: Yes Hx Hypercholesterolemia: Yes Hx Hypertension: Yes Hx Pacemaker: No - PULMONARY Hx Asthma: Yes Hx Chronic Obstructive Pulmonary Disease (COPD): Yes Hx Pulmonary Embolism: Yes (on Coumadin W/ IVC filter) - NEUROLOGICAL Hx Neurological Disorder: Yes HX Cerebrovascular Accident: Yes - HEENT Hx HEENT Problems: No - RENAL Hx Chronic Kidney Disease: No - ENDOCRINE/METABOLIC Hx Hypothyroidism: Yes - HEMATOLOGICAL/ONCOLOGICAL Hx Anemia: Yes - INTEGUMENTARY Hx Dermatological Problems: No - MUSCULOSKELETAL/RHEUMATOLOGICAL Hx Arthritis: Yes (R THR /ORIF) Hx Fractures: Yes (R HIP) Hx Rheumatoid Arthritis: Yes - GASTROINTESTINAL Hx Gall Bladder Disease: Yes - GENITOURINARY/GYNECOLOGICAL Hx Genitourinary Disorders: Yes Hx Urinary Tract Infection: Yes - PSYCHIATRIC Hx Anxiety: Yes Hx Depression: Yes Hx Substance Use: No - SURGICAL HISTORY Hx Appendectomy: No Hx Cholecystectomy: Yes - ANESTHESIA Hx Anesthesia Reactions: Yes (DIFFICULTY BREATHING) Meds Allergies/Adverse Reactions: Allergies Allergy/AdvReac Type Severity Reaction Status Date / Time No Known Allergies Allergy Verified 10/26/18 12:08 - Medications Medications: Current Medications Albuterol/Ipratropium (Duoneb 3 Mg/0.5 Mg (3 Ml) Ud) 3 ml IH RQ4 PRN PRN Reason: Shortness of Breath Arformoterol Tartrate (Brovana) 15 mcg INH RQ12 [facility] Budesonide (Pulmicort Respules) 0.5 mg INH RQ12 [facility] Colchicine (Colocrys) 0.6 mg PO BID [facility] Dextrose (Dextrose 50% Inj) 0 ml IVP .STAT PRN; Protocol PRN Reason: Hypoglycemia Protocol Dextrose (Glutose 15) 0 gm PO .ONCE PRN; Protocol PRN Reason: Hypoglycemia Protocol Dicyclomine HCl (Bentyl) 20 mg PO TID [facility] Ergocalciferol (Drisdol 50,000 Intl Units Cap) 1 cap PO Q7D [facility] Ferrous Gluconate (Fergon) 324 mg PO TID [facility] Glucagon (Glucagen Diagnostic Kit) 0 mg IM .STAT PRN; Protocol PRN Reason: Hypoglycemia Protocol Dextrose (Dextrose 5% In Water 1000 Ml) 1,000 mls @ 0 mls/hr IV .Q0M PRN; Protocol PRN Reason: Hypoglycemia Protocol Vancomycin/Sodium Chloride (Vancomycin 1 Gm/Ns 200 Ml) 1 gm in 200 mls @ 133 mls/hr IVPB Q24H [facility]; Protocol Stop: 10/31/18 19:01 Piperacillin Sod/Tazobactam Sod (Zosyn 3.375 Gm Iv Premix) 3.375 gm in 50 mls @ 100 mls/hr IVPB Q6H [facility]; Protocol Insulin Aspart (Novolog) 12 unit SC AC [facility] Insulin Glargine (Lantus) 24 unit SC HS [facility] Insulin Human Regular (Novolin R) 0 unit SC ACHS [facility]; Protocol Levothyroxine Sodium (Synthroid) 100 mcg PO DAILY@0630 [facility] Methylprednisolone (Solu-Medrol) 40 mg IVP Q8H [facility] Nystatin (Nystop Topical Powder) 1 applic TOP BID [facility] Pantoprazole Sodium (Protonix Inj) 40 mg IVP DAILY [facility] Rivaroxaban (Xarelto) 20 mg PO DAILY [facility] Sitagliptin Phosphate (Januvia) 100 mg PO DAILY [facility] Trazodone HCl (Desyrel) 50 mg PO HS PRN PRN Reason: Sleep Trimethobenzamide HCl (Tigan) 200 mg IM Q8 PRN PRN Reason: Nausea/Vomiting Vitamin B Complex/Vit C/Folic Acid (Nephro-Lavinia) 1 tab PO DAILY [facility] Physical Exam - Head Exam Head Exam: ATRAUMATIC, NORMOCEPHALIC - ENT Exam ENT Exam: Mucous Membranes Moist - Neck Exam Neck exam: Positive for: Normal Inspection - Respiratory Exam Respiratory Exam: Rales, Rhonchi - Cardiovascular Exam Cardiovascular Exam: REGULAR RHYTHM - GI/Abdominal Exam GI & Abdominal Exam: Normal Bowel Sounds - Extremities Exam Extremities exam: Positive for: normal inspection - Neurological Exam Neurological exam: Alert, Oriented x3 Results - Vital Signs Recent Vital Signs: Last Vital Signs Temp 100.9 F H 10/26/18 17:22 Pulse 112 H 10/26/18 17:06 Resp 20 10/26/18 17:06 BP 108/67 10/26/18 17:06 Pulse Ox 99 10/26/18 17:06 - Labs Result Diagrams: 10/26/18 13:10 10/26/18 13:10 Labs: Laboratory Results - last 24 hr 10/26/18 10/26/18 10/26/18 13:10 13:10 13:10 WBC 11.9 H RBC 4.51 Hgb 10.6 L Hct 36.4 MCV 80.7 L D MCH 23.6 L MCHC 29.2 L RDW 21.3 H Plt Count 349 MPV 8.5 Neut % (Auto) 72.6 Lymph % (Auto) 16.3 L [place] % (Auto) 9.5 Eos % (Auto) 0.4 Baso % (Auto) 1.2 Neut # (Auto) 8.7 H Lymph # (Auto) 1.9 [place] # (Auto) 1.1 H Eos # (Auto) 0.1 Baso # (Auto) 0.1 PT 16.2 H INR 1.5 APTT 29.0 Puncture Site pCO2 pO2 HCO3 ABG pH ABG Total CO2 ABG O2 Saturation ABG Base Excess ABG Hemoglobin ABG Carboxyhemoglobin POC ABG HHb (Measured) ABG Methemoglobin Nicholas Test VBG pH VBG pCO2 VBG HCO3 VBG Total CO2 VBG O2 Sat (Calc) VBG Base Excess VBG Potassium A-a O2 Difference Respiratory Index Hgb O2 Saturation Glucose Lactate Vent Mode FiO2 Inspiratory BiPAP Expiratory BiPAP Crit Value Called To Crit Value Called By Crit Value Read Back Blood Gas Notified Time Sodium 137 Potassium 3.9 Chloride 95 L Carbon Dioxide 35 H Anion Gap 11 BUN 27 H Creatinine 0.9 Est GFR ( Amer) > 60 Est GFR (Non-Af Amer) > 60 Random Glucose 182 H D Calcium 9.5 Total Bilirubin 0.5 AST 80 H D ALT 123 H D Alkaline Phosphatase 153 H D Troponin I 0.0300 NT-Pro-B Natriuret Pep 899 Total Protein 6.9 Albumin 4.0 Globulin 2.9 Albumin/Globulin Ratio 1.4 Venous Blood Potassium Urine Color Urine Clarity Urine pH Ur Specific [place] Urine Protein Urine Glucose (UA) Urine Ketones Urine Blood Urine Nitrate Urine Bilirubin Urine Urobilinogen Ur Leukocyte Esterase Urine WBC (Auto) Urine RBC (Auto) Ur Squamous Epith Cells Urine Bacteria Hyaline Casts 10/26/18 10/26/18 10/26/18 13:16 15:41 15:50 WBC RBC Hgb Hct MCV MCH MCHC RDW Plt Count MPV Neut % (Auto) Lymph % (Auto) [place] % (Auto) Eos % (Auto) Baso % (Auto) Neut # (Auto) Lymph # (Auto) [place] # (Auto) Eos # (Auto) Baso # (Auto) PT INR APTT Puncture Site Rra pCO2 57 H pO2 28 L 52 L HCO3 30.6 H ABG pH 7.38 ABG Total CO2 35.4 H ABG O2 Saturation 93.1 L ABG Base Excess 7.4 H ABG Hemoglobin 9.1 L ABG Carboxyhemoglobin 2.2 H POC ABG HHb (Measured) 6.7 H ABG Methemoglobin 1.0 Nicholas Test Pos VBG pH 7.19 L* VBG pCO2 98 H* VBG HCO3 27.7 VBG Total CO2 40.4 H VBG O2 Sat (Calc) 58.1 VBG Base Excess 5.6 H VBG Potassium 3.9 A-a O2 Difference 162.0 Respiratory Index 3.1 Hgb O2 Saturation 90.1 L Glucose 191 H Lactate 1.2 Vent Mode Bipap FiO2 40.0 Inspiratory BiPAP 12 Expiratory BiPAP 6 Crit Value Called To Dr vance Crit Value Called By Ross fregoso hand plug shaper Crit Value Read Back Y Blood Gas Notified Time 1319 Sodium 140.0 Potassium Chloride 99.0 Carbon Dioxide Anion Gap BUN Creatinine Est GFR ( Amer) Est GFR (Non-Af Amer) Random Glucose Calcium Total Bilirubin AST ALT Alkaline Phosphatase Troponin I NT-Pro-B Natriuret Pep Total Protein Albumin Globulin Albumin/Globulin Ratio Venous Blood Potassium 3.9 Urine Color Yellow Urine Clarity Hazy Urine pH 5.0 Ur Specific [place] 1.013 Urine Protein Negative Urine Glucose (UA) Normal Urine Ketones Negative Urine Blood Negative Urine Nitrate Negative Urine Bilirubin Negative Urine Urobilinogen Normal Ur Leukocyte Esterase Trace Urine WBC (Auto) 3 Urine RBC (Auto) 1 Ur Squamous Epith Cells < 1 Urine Bacteria Rare Hyaline Casts 3-5 H Assessment & Plan (1) Chr obstructive pulmonary disease w/ acute lower respiratory infxn Status: Acute Comment: Bilateral pneumonia. Continue Zosyn and add azithromycin. Sputum for culture and sensitivity. Discontinue inhaled steroids. BiPAP. IV fluids
[2018-10-26] MEDS: Vancomycin 1 gm/NS 200 ml 1 GM/200 ML BAG IVPB SCH (19:31)
[2018-10-26] MEDS: MethylPREDNISolone 40 mg Vial IVP SCH (19:36)
[2018-10-26] MEDS: Ergocalciferol 50,000 Intl Units Cap PO SCH (19:36)
[2018-10-26] MEDS ORDERED: Budesonide 0.5 mg/2 ml Inhal Susp UD INH SCH (20:00)
[2018-10-26] MEDS: Arformoterol 15 mcg/2 ml Inh Sol INH SCH (20:24)
--- NOTE | 2018-10-26 20:58 | CP.PCM.CON ---
History of Present Illness - History of Present Illness History of Present Illness: 63 year old female with history of COPD on oxygen, HTN, DM, HL, debility, stage IV pancreatic cancer with liver metastasis diagnosed 10/2018, presenting from the care home with body aches, found to have pneumonia. She notes to worsening diffuse body aches with subjective fevers and cough. In regards to her cancer diagnosis, she was felt to have resectable disease but was found to have liver metastasis by laparoscopy. Biopsy confirmed adenocarcinoma. She declined chemotherapy. She reports she would agree to immunotherapy if she qualified. Past medical history: Fibromyalgia, COPD, HTN, DM, HL Past surgical history: Cholecystectomy, appendectomy, hysterectomy Family history: Denies hematologic and oncologic problems Social history: Former tobacco abuse Allergies: NKA Review of systems: All remaining review of systems including HEENT, cardiovascular, respiratory, gastrointestinal, genitourinary, musculoskeletal, dermatologic, neurologic, and psychiatric are negative unless mentioned in the HPI. Past Patient History - Infectious Disease Hx of Infectious Diseases: None, C.diff - Past Medical History & Family History Past Medical History?: Yes - Past Social History Smoking Status: Never Smoked - CARDIAC Hx Cardia Arrhythmia: Yes Hx Congestive Heart Failure: Yes Hx Hypercholesterolemia: Yes Hx Hypertension: Yes Hx Pacemaker: No - PULMONARY Hx Asthma: Yes Hx Chronic Obstructive Pulmonary Disease (COPD): Yes Hx Pulmonary Embolism: Yes (on Coumadin W/ IVC filter) - NEUROLOGICAL Hx Neurological Disorder: Yes HX Cerebrovascular Accident: Yes - HEENT Hx HEENT Problems: No - RENAL Hx Chronic Kidney Disease: No - ENDOCRINE/METABOLIC Hx Hypothyroidism: Yes - HEMATOLOGICAL/ONCOLOGICAL Hx Anemia: Yes - INTEGUMENTARY Hx Dermatological Problems: No - MUSCULOSKELETAL/RHEUMATOLOGICAL Hx Arthritis: Yes (R THR /ORIF) Hx Fractures: Yes (R HIP) Hx Rheumatoid Arthritis: Yes - GASTROINTESTINAL Hx Gall Bladder Disease: Yes - GENITOURINARY/GYNECOLOGICAL Hx Genitourinary Disorders: Yes Hx Urinary Tract Infection: Yes - PSYCHIATRIC Hx Anxiety: Yes Hx Depression: Yes Hx Substance Use: No - SURGICAL HISTORY Hx Appendectomy: No Hx Cholecystectomy: Yes - ANESTHESIA Hx Anesthesia Reactions: Yes (DIFFICULTY BREATHING) Meds Allergies/Adverse Reactions: Allergies Allergy/AdvReac Type Severity Reaction Status Date / Time No Known Allergies Allergy Verified 10/26/18 12:08 - Medications Medications: Current Medications Albuterol/Ipratropium (Duoneb 3 Mg/0.5 Mg (3 Ml) Ud) 3 ml IH RQ4 PRN PRN Reason: Shortness of Breath Arformoterol Tartrate (Brovana) 15 mcg INH RQ12 [facility] Last Admin: 10/26/18 20:24 Dose: 15 mcg Colchicine (Colocrys) 0.6 mg PO BID [facility] Last Admin: 10/26/18 19:33 Dose: Not Given Dextrose (Dextrose 50% Inj) 0 ml IVP .STAT PRN; Protocol PRN Reason: Hypoglycemia Protocol Dextrose (Glutose 15) 0 gm PO .ONCE PRN; Protocol PRN Reason: Hypoglycemia Protocol Dicyclomine HCl (Bentyl) 20 mg PO TID [facility] Last Admin: 10/26/18 19:33 Dose: Not Given Ergocalciferol (Drisdol 50,000 Intl Units Cap) 1 cap PO Q7D [facility] Last Admin: 10/26/18 19:36 Dose: Not Given Ferrous Gluconate (Fergon) 324 mg PO TID [facility] Last Admin: 10/26/18 19:34 Dose: Not Given Glucagon (Glucagen Diagnostic Kit) 0 mg IM .STAT PRN; Protocol PRN Reason: Hypoglycemia Protocol Dextrose (Dextrose 5% In Water 1000 Ml) 1,000 mls @ 0 mls/hr IV .Q0M PRN; Protocol PRN Reason: Hypoglycemia Protocol Vancomycin/Sodium Chloride (Vancomycin 1 Gm/Ns 200 Ml) 1 gm in 200 mls @ 133 mls/hr IVPB Q24H [facility]; Protocol Stop: 10/31/18 19:01 Last Admin: 10/26/18 19:31 Dose: 133 mls/hr Piperacillin Sod/Tazobactam Sod (Zosyn 3.375 Gm Iv Premix) 3.375 gm in 50 mls @ 100 mls/hr IVPB Q6H [facility]; Protocol Insulin Aspart (Novolog) 12 unit SC AC [facility] Insulin Glargine (Lantus) 24 unit SC HS [facility] Insulin Human Regular (Novolin R) 0 unit SC ACHS [facility]; Protocol Levothyroxine Sodium (Synthroid) 100 mcg PO DAILY@0630 [facility] Methylprednisolone (Solu-Medrol) 40 mg IVP Q8H [facility] Last Admin: 10/26/18 19:36 Dose: 40 mg Nystatin (Nystop Topical Powder) 1 applic TOP BID [facility] Last Admin: 10/26/18 19:35 Dose: 1 applic Pantoprazole Sodium (Protonix Inj) 40 mg IVP DAILY [facility] Rivaroxaban (Xarelto) 20 mg PO DAILY [facility] Sitagliptin Phosphate (Januvia) 100 mg PO DAILY [facility] Trazodone HCl (Desyrel) 50 mg PO HS PRN PRN Reason: Sleep Trimethobenzamide HCl (Tigan) 200 mg IM Q8 PRN PRN Reason: Nausea/Vomiting Vitamin B Complex/Vit C/Folic Acid (Nephro-Lavinia) 1 tab PO DAILY [facility] Physical Exam - Head Exam Head Exam: ATRAUMATIC - Eye Exam Eye Exam: Normal appearance - ENT Exam ENT Exam: Mucous Membranes Dry - Respiratory Exam Respiratory Exam: Decreased Breath Sounds - Cardiovascular Exam Cardiovascular Exam: +S1, +S2 - GI/Abdominal Exam GI & Abdominal Exam: Normal Bowel Sounds - Neurological Exam Neurological exam: Oriented x3 - Psychiatric Exam Psychiatric exam: Normal Affect, Normal Mood - Skin Skin Exam: Warm Results - Vital Signs Recent Vital Signs: Last Vital Signs Temp 100.9 F H 10/26/18 17:22 Pulse 112 H 10/26/18 17:06 Resp 20 10/26/18 17:06 BP 108/67 10/26/18 17:06 Pulse Ox 99 10/26/18 17:06 - Labs Result Diagrams: 10/26/18 13:10 10/26/18 13:10 Labs: Laboratory Results - last 24 hr 10/26/18 10/26/18 10/26/18 13:10 13:10 13:10 WBC 11.9 H RBC 4.51 Hgb 10.6 L Hct 36.4 MCV 80.7 L D MCH 23.6 L MCHC 29.2 L RDW 21.3 H Plt Count 349 MPV 8.5 Neut % (Auto) 72.6 Lymph % (Auto) 16.3 L [place] % (Auto) 9.5 Eos % (Auto) 0.4 Baso % (Auto) 1.2 Neut # (Auto) 8.7 H Lymph # (Auto) 1.9 [place] # (Auto) 1.1 H Eos # (Auto) 0.1 Baso # (Auto) 0.1 PT 16.2 H INR 1.5 APTT 29.0 Puncture Site pCO2 pO2 HCO3 ABG pH ABG Total CO2 ABG O2 Saturation ABG Base Excess ABG Hemoglobin ABG Carboxyhemoglobin POC ABG HHb (Measured) ABG Methemoglobin Nicholas Test VBG pH VBG pCO2 VBG HCO3 VBG Total CO2 VBG O2 Sat (Calc) VBG Base Excess VBG Potassium A-a O2 Difference Respiratory Index Hgb O2 Saturation Glucose Lactate Vent Mode FiO2 Inspiratory BiPAP Expiratory BiPAP Crit Value Called To Crit Value Called By Crit Value Read Back Blood Gas Notified Time Sodium 137 Potassium 3.9 Chloride 95 L Carbon Dioxide 35 H Anion Gap 11 BUN 27 H Creatinine 0.9 Est GFR ( Amer) > 60 Est GFR (Non-Af Amer) > 60 Random Glucose 182 H D Calcium 9.5 Total Bilirubin 0.5 AST 80 H D ALT 123 H D Alkaline Phosphatase 153 H D Troponin I 0.0300 NT-Pro-B Natriuret Pep 899 Total Protein 6.9 Albumin 4.0 Globulin 2.9 Albumin/Globulin Ratio 1.4 Venous Blood Potassium Urine Color Urine Clarity Urine pH Ur Specific [place] Urine Protein Urine Glucose (UA) Urine Ketones Urine Blood Urine Nitrate Urine Bilirubin Urine Urobilinogen Ur Leukocyte Esterase Urine WBC (Auto) Urine RBC (Auto) Ur Squamous Epith Cells Urine Bacteria Hyaline Casts 10/26/18 10/26/18 10/26/18 13:16 15:41 15:50 WBC RBC Hgb Hct MCV MCH MCHC RDW Plt Count MPV Neut % (Auto) Lymph % (Auto) [place] % (Auto) Eos % (Auto) Baso % (Auto) Neut # (Auto) Lymph # (Auto) [place] # (Auto) Eos # (Auto) Baso # (Auto) PT INR APTT Puncture Site Rra pCO2 57 H pO2 28 L 52 L HCO3 30.6 H ABG pH 7.38 ABG Total CO2 35.4 H ABG O2 Saturation 93.1 L ABG Base Excess 7.4 H ABG Hemoglobin 9.1 L ABG Carboxyhemoglobin 2.2 H POC ABG HHb (Measured) 6.7 H ABG Methemoglobin 1.0 Nicholas Test Pos VBG pH 7.19 L* VBG pCO2 98 H* VBG HCO3 27.7 VBG Total CO2 40.4 H VBG O2 Sat (Calc) 58.1 VBG Base Excess 5.6 H VBG Potassium 3.9 A-a O2 Difference 162.0 Respiratory Index 3.1 Hgb O2 Saturation 90.1 L Glucose 191 H Lactate 1.2 Vent Mode Bipap FiO2 40.0 Inspiratory BiPAP 12 Expiratory BiPAP 6 Crit Value Called To Dr vance Crit Value Called By Ross fregoso regrinder operator Crit Value Read Back Y Blood Gas Notified Time 1319 Sodium 140.0 Potassium Chloride 99.0 Carbon Dioxide Anion Gap BUN Creatinine Est GFR ( Amer) Est GFR (Non-Af Amer) Random Glucose Calcium Total Bilirubin AST ALT Alkaline Phosphatase Troponin I NT-Pro-B Natriuret Pep Total Protein Albumin Globulin Albumin/Globulin Ratio Venous Blood Potassium 3.9 Urine Color Yellow Urine Clarity Hazy Urine pH 5.0 Ur Specific [place] 1.013 Urine Protein Negative Urine Glucose (UA) Normal Urine Ketones Negative Urine Blood Negative Urine Nitrate Negative Urine Bilirubin Negative Urine Urobilinogen Normal Ur Leukocyte Esterase Trace Urine WBC (Auto) 3 Urine RBC (Auto) 1 Ur Squamous Epith Cells < 1 Urine Bacteria Rare Hyaline Casts 3-5 H Assessment & Plan (1) Anemia Assessment and Plan: retic count, b12, folate, ferritin, FOBT to further characterize Status: Acute (2) Leukocytosis Assessment and Plan: on antibiotics Status: Acute (3) Pancreatic cancer metastasized to liver Status: Acute (4) Pancreatic cancer Assessment and Plan: supportive care decline chemotherapy awaiting MSI and PDL1 testing to see if would benefit from immunotherapy. Thank you for this interesting consult. Status: Acute
[2018-10-26] MEDS: (Novolin R) Insulin Human Regular 100 units/ml vial SC SCH (21:51)
[2018-10-26] MEDS: Piperacill/Tazo 3.375gm in Dex 3.375 GM/50 ML BAG IVPB SCH (21:53)
[2018-10-26] MEDS: (Lantus) Insulin Glargine, Recombinant SC SCH (21:54)
[2018-10-26] MEDS ORDERED: MethylPREDNISolone 40 mg Vial IVP SCH (22:00)
[2018-10-26] MEDS ORDERED: [UNRECOGNIZED DRUG - OTHER] TP SCH (22:00)
[2018-10-26] MEDS ORDERED: PETROLATUM TP SCH (22:00)
[2018-10-26] MEDS ORDERED: ZINC OXIDE TP SCH (22:00)
[2018-10-27] MEDS: Piperacill/Tazo 3.375gm in Dex 3.375 GM/50 ML BAG IVPB SCH ×4 (03:41→21:28)
[2018-10-27] MEDS: MethylPREDNISolone 40 mg Vial IVP SCH ×3 (03:41→18:26)
[2018-10-27] MEDS: Levothyroxine 100 MCG TAB PO SCH (06:28)
[2018-10-27] MEDS: (Novolin R) Insulin Human Regular 100 units/ml vial SC SCH ×4 (08:10→22:45)
[2018-10-27] MEDS: (Novolog) Insulin Aspart, Recombinant 100 u/ml 10 ml vial SC SCH ×3 (08:11→17:11)
[2018-10-27] MEDS: Arformoterol 15 mcg/2 ml Inh Sol INH SCH ×3 (08:38→20:15)
[2018-10-27] MEDS: Multivitamin Vitamin B Complex (Nephro-Vite) Tab PO SCH (09:21)
--- NOTE | 2018-10-27 09:50 | CT ---
CT chest HISTORY: Hemoptysis. History of pancreatic cancer. Comparison: Chest x-ray dated 10/26/[address] chest pulmonary angiogram dated 09/20/2018 Technique: Multiple contiguous axial images were performed through the chest without the use of intravenous contrast. Subsequently, sagittal and coronal reformatted images were obtained. This CT exam was performed using one or more of the following dose reduction techniques: Automated exposure control, adjustment of the mA and/or kV according to patient size, and/or use of iterative reconstruction technique. Findings: Right lung: Worsening nodular consolidation seen within the right lower lobe in comparison to the study dated 09/20/2018. For example, focal consolidation measures up to 6.5 x 3.6 centimeters as seen on series 3, image 49. Persistent mild consolidative changes seen within the anteromedial aspect of the right middle lobe. Additional mild scattered atelectasis and consolidation seen within the right upper lobe. Trachea thru central airways are patent. Left lung: Worsening prominent consolidative opacification seen throughout the left lung in comparison to the prior CT dated 09/20/2018. Persistent mild atelectatic changes within the posterior aspect of the left upper lobe. Worsening nodular consolidation within the lingula. No significant axillary adenopathy. Heterogeneity of the thyroid. Atherosclerotic calcification within the aorta. Prominent prevascular lymph nodes measuring up to 1.1 centimeters. Right paratracheal lymph nodes measuring up to 1.8 centimeters. If there is concern for pulmonary embolism, further evaluation with a contrast-enhanced CT chest pulmonary angiogram is recommended. Coronary calcifications. No pleural or pericardial effusion. Prior cholecystectomy. Postsurgical prominence of the common bile duct. Prominent liver. Prominent spleen. Splenic arterial calcifications. Limited evaluation of the pancreas demonstrates atrophy and or absence of the head and a portion of the body. Cystic replacement of the distal pancreatic body and tail measuring up to 5.5 x 2.0 centimeters. Correlation with pancreatic protocol CT would be helpful for further evaluation and or delineation of the pancreas. Degenerative changes in the spine. Again identified is dense sclerosis of the T6 vertebral body which may be the sequelae of a chronic compression deformity; however, metastatic disease cannot be excluded. Additional inferior endplate compression deformity of the T7 vertebral body. This is not significantly changed since the prior study. Impression: Worsening airspace consolidative changes seen in the bilateral lower lobes; left greater than right. This may be the sequelae of acute infectious changes. Clinical correlation. Post treatment interval follow-up is recommended to ensure resolution and exclude underlying lesion. If there is concern for pulmonary embolism, further evaluation with a contrast-enhanced CT chest pulmonary angiogram is recommended. Limited evaluation of the pancreas demonstrates atrophy and or absence of the head and a portion of the body. Cystic replacement of the distal pancreatic body and tail measuring up to 5.5 x 2.0 centimeters. Correlation with pancreatic protocol CT would be helpful for further evaluation and or delineation of the pancreas. Again identified is dense sclerosis of the T6 vertebral body which may be the sequelae of a chronic compression deformity; however, metastatic disease cannot be excluded. Additional inferior endplate compression deformity of the T7 vertebral body. This is not significantly changed since the prior study. Additional findings as above. A preliminary report was generated at 7:01 p.m. on 10/26/[address] Herb Quinones from [employer].
[2018-10-27] MEDS ORDERED: Levothyroxine 100 MCG TAB PO SCH (10:00)
[2018-10-27] MEDS: Azithromycin 500 MG in Sodium Chloride 0.9% 250 ML IVPB SCH (10:59)
--- NOTE | 2018-10-27 11:23 | CP.PCM.PN ---
Subjective - Date & Time of Evaluation Date of Evaluation: 10/27/18 Time of Evaluation: 11:21 - Subjective Subjective: PGY2 Medicine Note for Dr. Farrell (covering Dr. Gutierres's service) Patient seen and examined this morning at bedside. Patient was refusing all of her medications stating that she wants to go to God. She states that she saw her sister suffer for 15 days and does not want to be on any machines. There was a long discussion yesterday about code status in which the patient agreed to be resuscitated, but states she only said that because of her family members. Today she states she does not want her family members to know, but she does not want to be intubated. She views a meaningful life as one that she will be able to have her normal life. She is well aware of her cancer diagnosis and does not want to suffer. "If my heart stops, let me go." She is complaining of pain throughout her entire body. She feels her breathing has improved, as she is still on the BiPAP. She reports that she is starting to get depressed. She has no thoughts of wanting to hurt herself. She is still coughing up some blood, but is unable to quantify. Denies any fevers, chills, nausea, vomiting, diarrhea or constipation. Objective - Vital Signs/Intake and Output Vital Signs (last 24 hours): Temp Pulse Resp BP Pulse Ox 98.0 F 107 H 20 148/66 94 L 10/27/18 07:00 10/27/18 08:29 10/27/18 07:00 10/27/18 07:00 10/27/18 07:00 Intake and Output: 10/27/18 10/27/18 06:59 18:59 Intake Total 250 Output Total 300 Balance -50 - Medications Medications: Current Medications Albuterol/Ipratropium (Duoneb 3 Mg/0.5 Mg (3 Ml) Ud) 3 ml IH RQ4 PRN PRN Reason: Shortness of Breath Arformoterol Tartrate (Brovana) 15 mcg INH RQ12 [facility] Last Admin: 10/27/18 09:08 Dose: 15 mcg Colchicine (Colocrys) 0.6 mg PO BID [facility] Last Admin: 10/27/18 09:13 Dose: Not Given Dextrose (Dextrose 50% Inj) 0 ml IVP .STAT PRN; Protocol PRN Reason: Hypoglycemia Protocol Dextrose (Glutose 15) 0 gm PO .ONCE PRN; Protocol PRN Reason: Hypoglycemia Protocol Dicyclomine HCl (Bentyl) 20 mg PO TID [facility] Last Admin: 10/27/18 09:13 Dose: Not Given Ergocalciferol (Drisdol 50,000 Intl Units Cap) 1 cap PO Q7D [facility] Last Admin: 10/26/18 19:36 Dose: Not Given Ferrous Gluconate (Fergon) 324 mg PO TID [facility] Last Admin: 10/27/18 09:13 Dose: Not Given Glucagon (Glucagen Diagnostic Kit) 0 mg IM .STAT PRN; Protocol PRN Reason: Hypoglycemia Protocol Dextrose (Dextrose 5% In Water 1000 Ml) 1,000 mls @ 0 mls/hr IV .Q0M PRN; Protocol PRN Reason: Hypoglycemia Protocol Vancomycin/Sodium Chloride (Vancomycin 1 Gm/Ns 200 Ml) 1 gm in 200 mls @ 133 mls/hr IVPB Q24H [facility]; Protocol Stop: 10/31/18 19:01 Last Admin: 10/26/18 19:31 Dose: 133 mls/hr Piperacillin Sod/Tazobactam Sod (Zosyn 3.375 Gm Iv Premix) 3.375 gm in 50 mls @ 100 mls/hr IVPB Q6H [facility]; Protocol Last Admin: 10/27/18 09:24 Dose: 100 mls/hr Azithromycin 500 mg/ Sodium (Chloride) 250 mls @ 250 mls/hr IVPB DAILY [facility]; Protocol Last Admin: 10/27/18 10:59 Dose: 250 mls/hr Insulin Aspart (Novolog) 12 unit SC AC [facility] Last Admin: 10/27/18 08:11 Dose: 12 units Insulin Glargine (Lantus) 24 unit SC HS [facility] Last Admin: 10/26/18 21:54 Dose: 24 u Insulin Human Regular (Novolin R) 0 unit SC ACHS [facility]; Protocol Last Admin: 10/27/18 08:10 Dose: 8 units Levothyroxine Sodium (Synthroid) 100 mcg PO DAILY@0630 [facility] Last Admin: 10/27/18 06:28 Dose: 100 mcg Methylprednisolone (Solu-Medrol) 40 mg IVP Q8H [facility] Last Admin: 10/27/18 11:00 Dose: 40 mg Nystatin (Nystop Topical Powder) 1 applic TOP BID [facility] Last Admin: 10/27/18 11:00 Dose: Not Given Pantoprazole Sodium (Protonix Inj) 40 mg IVP DAILY [facility] Last Admin: 10/27/18 09:21 Dose: Not Given Rivaroxaban (Xarelto) 20 mg PO DAILY [facility] Last Admin: 10/27/18 09:21 Dose: Not Given Sitagliptin Phosphate (Januvia) 100 mg PO DAILY [facility] Last Admin: 10/27/18 09:21 Dose: Not Given Trazodone HCl (Desyrel) 50 mg PO HS PRN PRN Reason: Sleep Trimethobenzamide HCl (Tigan) 200 mg IM Q8 PRN PRN Reason: Nausea/Vomiting Vitamin B Complex/Vit C/Folic Acid (Nephro-Lavinia) 1 tab PO DAILY [facility] Last Admin: 10/27/18 09:21 Dose: Not Given - Labs Labs: 10/26/18 13:10 10/26/18 13:10 PT 16.2 SECONDS (9.7-12.2) H 10/26/18 13:10 INR 1.5 10/26/18 13:10 APTT 29.0 SECONDS (21-34) 10/26/18 13:10 - Constitutional Appears: No Acute Distress, Chronically Ill (morbidly obese, speaking in full sentences on BiPAP) - Head Exam Head Exam: ATRAUMATIC, NORMOCEPHALIC - Eye Exam Eye Exam: Normal appearance - Respiratory Exam Respiratory Exam: Rales (b/l bases). absent: Accessory Muscle Use Additional comments: on BiPAP - speaking in full sentences - Cardiovascular Exam Cardiovascular Exam: Tachycardia, +S1, +S2 - GI/Abdominal Exam GI & Abdominal Exam: Soft. absent: Distended, Firm, Guarding, Rigid, Tenderness - Extremities Exam Extremities Exam: absent: Calf Tenderness, Pedal Edema - Neurological Exam Neurological Exam: Alert, Awake, Oriented x3 - Psychiatric Exam Psychiatric exam: Normal Affect, Normal Mood - Skin Skin Exam: Dry, Warm Additional comments: multiple areas of ecchymosis at different stages of healing throughout body Assessment and Plan - Assessment and Plan (Free Text) Plan: Acute Respiratory Distress (improving) Hx of COPD -Bipap prn -Solumedrol 40 mg IVP q8h leandro -Duonebs q4 prn -Protonix 40 mg IV daily -Pulmonology (Dr. Dickerson) on board Healthcare associated pneumonia -recurring pneumonia, coming from rehab facility -CXR: Findings concerning for developing CHF. Low lung volumes may be related to poor inspiratory effort -sputum cultures pending -Mycoplasma IgM negating -legionella, strep pneumo pending -empiric IV abx -Vancomycin 1 gm IV daily -Zosyn 3.375 q6h Fever -CXR: Findings concerning for developing CHF. Low lung volumes may be related to poor inspiratory effort -leukocytosis resolved 10.0 (was 11.9 on 10/26/18) -Blood cultures negative at 24 hours -Urine cultures pending -Procalcitonin 1.45 (10/26/18) -Lasix 20mg IVP daily -Empiric IV abx (see A&P above) Pancreatic cancer with Liver mets -s/p diagnostic laparascopy: metastasis to the liver, grossly single nodule. Cystic lesion and harden pancreas. -pathology results from liver biopsy: Adenocarcinoma -s/p distal pancreatectomy 10/11/18 -patient has outpatient appt with Dr. Lala next week -Heme/Onc (Dr. Lala) on board * supportive care. * decline chemotherapy. * awaiting MSI and PDL1 testing to see if would benefit from immunotherapy. -Pastoral care on board Depression -Psychiatry consulted, Dr. Dexter -restart home Zoloft 50mg PO -restart home Valium 5mg PO BID Hx of DVT/PE on Xarelto -continue home Xarelto 20 mg PO daily Fibromyalgia -restart home Percocet 1 tab q6h leandro (usually takes 2 tabs q6h at home) Hx of Gout -c/w home colchicine DM -accuchecks q6 -hypoglycemic protocol -ISS medium --> increased to high -c/w home Novolog 12 units, Lantus 24 units, januvia -held home glipizide Hypothyroidism -c/w home synthroid 100 mc PO daily Adrenal Insufficiency -on home prednisone 10 mg PO daily -will hold prednisone in lieu of solumedrol being added Questionable C.Diff -Per nursing staff, patient had questionable history of C.Diff while in jail -Patient denies diarrhea at this time. -f/u C. Diff toxin and Ova and Parasites stool studies -Keep on contact precautions until stool studies result Sacral Ulcer stage 2 Wound care consulted PPx, Diet, Disposition -DVT ppx: Xarelto 20 mg PO daily -GI ppx: Protonix 40 mg IVP daily -Diet: HHD -PT/OT on board -Palliative Care Consult * Patient signed POLST: DNR/DNI today after long talk with Dr. Farrell and Resident Kaye, and then a second conversation with Tori. She was adamant that she did not want to suffer. She views a meaningful life as being able to go back to her normal life and being able to interact with her family members. She does not want be placed on any machines to keep her alive. She understands that she is currently suffering from Pneumonia which is being treated with antibiotics, which is what she wants. She has also decided to discuss her wishes with her daughters. She was nervous that she was going to upset them, but is feeling a lot of relief after their conversation and having them respect her wishes. Case discussed with Dr. Jami Luke Kaye PGY2
[2018-10-27] MEDS: Oxycodone/Acetaminophen 5/325 mg Tab PO SCH ×2 (13:57→18:29)
[2018-10-27 14:13] LABS: BASO # 0.1 K/uL (0.0-0.2); BASO % 0.9 % (0.0-2.0); EOS # 0.1 K/uL (0.0-0.7); EOS % 0.8 % (0.0-4.0); HEMOGLOBIN 9.5 g/dL (11.0-16.0); LYMPH # 0.7 K/uL (1.0-4.3); LYMPH % 7.2 % (20.0-40.0); MEAN CELL VOLUME 79.7 fL (81.0-99.0); MEAN CORPUSCULAR HEMOGLOBIN 23.9 pg (27.0-31.0); MEAN PLATELET VOLUME 8.7 fL (7.2-11.7); MONO # 0.4 K/uL (0.0-0.8); MONO % 4.3 % (0.0-10.0); NEUT # 8.7 K/uL (1.8-7.0); NEUT % 86.8 % (50.0-75.0); PLATELET COUNT 306 K/uL (130-400); RBC 3.97 Mil/uL (3.80-5.20); RED CELL DISTRIBUTION WIDTH 21.1 % (11.5-14.5)
--- NOTE | 2018-10-27 14:19 | CP.PCM.CON ---
History of Present Illness - History of Present Illness History of Present Illness: Palliative consult requested by Doctor Dickerson for goals of care discussion Patient is a 63 yo female admitted from [facility] with SOB and AMS. Patient was discharged to [facility] after prolonged hospitalization here at the hospital. Patient was pending Whipple procedure, but since her Medical condition was not stable and mets to liver were seen , patient received stents only. On this admission B/L pneuminia was diagnosed and patient started on Zosyn IV, Arythromycin IV, Bi Pap at 40 % FiO2 and IVF. Pulmonolog consult with Doctor Dickerson. Sputum cultures ordered. PMH: COPD, PE, pancreas CA with mets to liver, liver mass, stents, depression, suicidal attempt years ago, right tibia Fx, obesity, bedridden Soc. Hx: , lives at home Fam. Hx: denied Review of Systems - Constitutional Constitutional: Fatigue - EENT Eyes: absent: As Per HPI, Blind Spots, Blurred Vision, Change in Vision, Decreased Night Vision, Diplopia, Discharge, Dry Eye, Exophthalmos, Floaters, Irritation, Itchy Eyes, Loss of Peripheral Vision, Pain, Photophobia, Requires Corrective Lenses, Sees Flashes, Spots in Vision, Tunnel Vision, Other Visual Disturbances, Loss of Vision, Other Ears: absent: As Per HPI, Decreased Hearing, Ear Discharge, Ear Pain, Tinnitus, Abnormal Hearing, Disequilibrium, Dizziness, Other Nose/Mouth/Throat: absent: As Per HPI, Epistaxis, Nasal Congestion, Nasal Discharge, Nasal Obstruction, Nasal Trauma, Nose Pain, Post Nasal Drip, Sinus Pain, Sinus Pressure, Bleeding Gums, Change in Voice, Dental Pain, Dry Mouth, Dysphagia, Halitosis, Hoarsness, Lip Swelling, Mouth Lesions, Mouth Pain, Odynophagia, Sore Throat, Throat Swelling, Tongue Swelling, Facial Pain, Neck Pain, Neck Mass, Other - Breasts Breasts: absent: As Per HPI, Change in Shape, Mass, Pain, Nipple Discharge, Nipple Inversion, Skin Changes, Swelling, Other - Cardiovascular Cardiovascular: Dyspnea, Dyspnea on Exertion - Respiratory Respiratory: Dyspnea, Dyspnea on Exertion - Gastrointestinal Gastrointestinal: absent: As Per HPI, Abdominal Pain, Belching, Bloating, Change in Bowel Habits, Change in Stool Character, Coffee Ground Emesis, Constipation, Cramping, Diarrhea, Dyspepsia, Dysphagia, Early Satiety, Excessive Flatus, Fecal Incontinence, Heartburn, Hematemesis, Hematochezia, Loose Stools, Melena, Nausea, Odynophagia, Temesmus, Vomiting, Other - Genitourinary Genitourinary: Urinary Incontinence - Reproductive: Female Reproductive:Female: Post Menopausal - Menstruation Menstruation: Post Menopausal - Musculoskeletal Musculoskeletal: Abnormal Gait, Deformity, Limited Range of Motion, Muscle Weakness - Integumentary Integumentary: Dry Skin - Neurological Neurological: absent: As Per HPI, Abnormal Gait, Abnormal Hearing, Abnormal Movements, Abnormal Speech, Behavioral Changes, Burning Sensations, Confusion, Convulsions, Disequilibrium, Dizziness, Numbness, Focal Weakness, Frequent Falls, Headaches, Lack of Coordination, Loss of Vision, Memory Loss, Paresthesias, Radicular Pain, Restless Legs, Sensory Deficit, Syncope, Tingling, Tremor, Vertigo, Weakness, Other Visual Disturbances, Other - Psychiatric Psychiatric: Depression, Hopelessness - Endocrine Endocrine: absent: As Per HPI, Change in Body Appearance, Change in Libido, Cold Intolorance, Deepening of Voice, Excessive Sweating, Fatigue, Flushing, Heat Intolorance, Increase in Ring/Shoe/Hat Size, Palpitations, Polydipsia, Polyphagia, Polyuria, Other - Hematologic/Lymphatic Hematologic: absent: As Per HPI, Easy Bleeding, Easy Bruising, Lymphadenopathy, Other Past Patient History - Infectious Disease Hx of Infectious Diseases: None, C.diff - Past Medical History & Family History Past Medical History?: Yes - Past Social History Smoking Status: Never Smoked - CARDIAC Hx Cardia Arrhythmia: Yes Hx Congestive Heart Failure: Yes Hx Hypercholesterolemia: Yes Hx Hypertension: Yes Hx Pacemaker: No - PULMONARY Hx Asthma: Yes Hx Chronic Obstructive Pulmonary Disease (COPD): Yes Hx Pulmonary Embolism: Yes (on Coumadin W/ IVC filter) - NEUROLOGICAL Hx Neurological Disorder: Yes HX Cerebrovascular Accident: Yes - HEENT Hx HEENT Problems: No - RENAL Hx Chronic Kidney Disease: No - ENDOCRINE/METABOLIC Hx Hypothyroidism: Yes - HEMATOLOGICAL/ONCOLOGICAL Hx Anemia: Yes - INTEGUMENTARY Hx Dermatological Problems: No - MUSCULOSKELETAL/RHEUMATOLOGICAL Hx Arthritis: Yes (R THR /ORIF) Hx Fractures: Yes (R HIP) Hx Rheumatoid Arthritis: Yes - GASTROINTESTINAL Hx Gall Bladder Disease: Yes - GENITOURINARY/GYNECOLOGICAL Hx Genitourinary Disorders: Yes Hx Urinary Tract Infection: Yes - PSYCHIATRIC Hx Anxiety: Yes Hx Depression: Yes Hx Substance Use: No - SURGICAL HISTORY Hx Appendectomy: No Hx Cholecystectomy: Yes - ANESTHESIA Hx Anesthesia Reactions: Yes (DIFFICULTY BREATHING) Meds Allergies/Adverse Reactions: Allergies Allergy/AdvReac Type Severity Reaction Status Date / Time No Known Allergies Allergy Verified 10/26/18 12:08 - Medications Medications: Current Medications Albuterol/Ipratropium (Duoneb 3 Mg/0.5 Mg (3 Ml) Ud) 3 ml IH RQ4 PRN PRN Reason: Shortness of Breath Arformoterol Tartrate (Brovana) 15 mcg INH RQ12 [facility] Last Admin: 10/27/18 09:08 Dose: 15 mcg Colchicine (Colocrys) 0.6 mg PO BID [facility] Last Admin: 10/27/18 09:13 Dose: Not Given Dextrose (Dextrose 50% Inj) 0 ml IVP .STAT PRN; Protocol PRN Reason: Hypoglycemia Protocol Dextrose (Glutose 15) 0 gm PO .ONCE PRN; Protocol PRN Reason: Hypoglycemia Protocol Diazepam (Valium) 5 mg PO BID [facility] Dicyclomine HCl (Bentyl) 20 mg PO TID [facility] Last Admin: 10/27/18 14:07 Dose: Not Given Ergocalciferol (Drisdol 50,000 Intl Units Cap) 1 cap PO Q7D [facility] Last Admin: 10/26/18 19:36 Dose: Not Given Ferrous Gluconate (Fergon) 324 mg PO TID [facility] Last Admin: 10/27/18 14:07 Dose: Not Given Furosemide (Lasix) 20 mg IVP DAILY [facility] Last Admin: 10/27/18 13:56 Dose: 20 mg Glucagon (Glucagen Diagnostic Kit) 0 mg IM .STAT PRN; Protocol PRN Reason: Hypoglycemia Protocol Dextrose (Dextrose 5% In Water 1000 Ml) 1,000 mls @ 0 mls/hr IV .Q0M PRN; Protocol PRN Reason: Hypoglycemia Protocol Vancomycin/Sodium Chloride (Vancomycin 1 Gm/Ns 200 Ml) 1 gm in 200 mls @ 133 mls/hr IVPB Q24H [facility]; Protocol Stop: 10/31/18 19:01 Last Admin: 10/26/18 19:31 Dose: 133 mls/hr Piperacillin Sod/Tazobactam Sod (Zosyn 3.375 Gm Iv Premix) 3.375 gm in 50 mls @ 100 mls/hr IVPB Q6H [facility]; Protocol Last Admin: 10/27/18 09:24 Dose: 100 mls/hr Azithromycin 500 mg/ Sodium (Chloride) 250 mls @ 250 mls/hr IVPB DAILY [facility]; Protocol Last Admin: 10/27/18 10:59 Dose: 250 mls/hr Insulin Aspart (Novolog) 12 unit SC AC [facility] Last Admin: 10/27/18 12:13 Dose: 12 units Insulin Glargine (Lantus) 24 unit SC HS [facility] Last Admin: 10/26/18 21:54 Dose: 24 u Insulin Human Regular (Novolin R) 0 unit SC ACHS [facility]; Protocol Last Admin: 10/27/18 12:13 Dose: 10 units Levothyroxine Sodium (Synthroid) 100 mcg PO DAILY@0630 [facility] Last Admin: 10/27/18 06:28 Dose: 100 mcg Methylprednisolone (Solu-Medrol) 40 mg IVP Q8H [facility] Last Admin: 10/27/18 11:00 Dose: 40 mg Nystatin (Nystop Topical Powder) 1 applic TOP BID [facility] Last Admin: 10/27/18 11:00 Dose: Not Given Oxycodone/Acetaminophen (Percocet 5/325 Mg Tab) 1 tab PO Q6H [facility] Stop: 10/30/18 13:31 Last Admin: 10/27/18 13:57 Dose: 1 tab Pantoprazole Sodium (Protonix Inj) 40 mg IVP DAILY [facility] Last Admin: 10/27/18 09:21 Dose: Not Given Rivaroxaban (Xarelto) 20 mg PO DAILY [facility] Last Admin: 10/27/18 09:21 Dose: Not Given Sitagliptin Phosphate (Januvia) 100 mg PO DAILY [facility] Last Admin: 10/27/18 09:21 Dose: Not Given Trazodone HCl (Desyrel) 50 mg PO HS PRN PRN Reason: Sleep Trimethobenzamide HCl (Tigan) 200 mg IM Q8 PRN PRN Reason: Nausea/Vomiting Vitamin B Complex/Vit C/Folic Acid (Nephro-Lavinia) 1 tab PO DAILY [facility] Last Admin: 10/27/18 09:21 Dose: Not Given Physical Exam - Constitutional Appears: No Acute Distress, Chronically Ill - Head Exam Head Exam: ATRAUMATIC, NORMAL INSPECTION, NORMOCEPHALIC - Eye Exam Eye Exam: EOMI, Normal appearance, PERRL Pupil Exam: NORMAL ACCOMODATION, PERRL - ENT Exam ENT Exam: Mucous Membranes Dry - Neck Exam Neck exam: Positive for: Normal Inspection - Respiratory Exam Respiratory Exam: Chest Wall Tenderness, Decreased Breath Sounds - Cardiovascular Exam Cardiovascular Exam: Tachycardia, REGULAR RHYTHM - GI/Abdominal Exam GI & Abdominal Exam: Diminished Bowel Sounds, Distended, Soft - Rectal Exam Rectal Exam: Deferred - Extremities Exam Extremities exam: Positive for: normal capillary refill, normal inspection, pedal pulses present - Back Exam Back exam: NORMAL INSPECTION - Neurological Exam Neurological exam: Alert, Oriented x3 - Psychiatric Exam Psychiatric exam: Depressed - Skin Skin Exam: Dry, Intact, Pallor, Warm Results - Vital Signs Recent Vital Signs: Last Vital Signs Temp 98.0 F 10/27/18 07:00 Pulse 124 H 10/27/18 12:00 Resp 20 10/27/18 07:00 BP 152/83 H 10/27/18 13:56 Pulse Ox 94 L 10/27/18 07:00 - Labs Result Diagrams: 10/26/18 13:10 10/26/18 13:10 Labs: Laboratory Results - last 24 hr 10/26/18 10/26/18 10/26/18 15:41 15:50 20:07 Puncture Site Rra pCO2 57 H pO2 52 L HCO3 30.6 H ABG pH 7.38 ABG Total CO2 35.4 H ABG O2 Saturation 93.1 L ABG Base Excess 7.4 H ABG Hemoglobin 9.1 L ABG Carboxyhemoglobin 2.2 H POC ABG HHb (Measured) 6.7 H ABG Methemoglobin 1.0 Nicholas Test Pos A-a O2 Difference 162.0 Respiratory Index 3.1 Hgb O2 Saturation 90.1 L Vent Mode Bipap FiO2 40.0 Inspiratory BiPAP 12 Expiratory BiPAP 6 POC Glucose (mg/dL) Procalcitonin Urine Color Yellow Urine Clarity Hazy Urine pH 5.0 Ur Specific [place] 1.013 Urine Protein Negative Urine Glucose (UA) Normal Urine Ketones Negative Urine Blood Negative Urine Nitrate Negative Urine Bilirubin Negative Urine Urobilinogen Normal Ur Leukocyte Esterase Trace Urine WBC (Auto) 3 Urine RBC (Auto) 1 Ur Squamous Epith Cells < 1 Urine Bacteria Rare Hyaline Casts 3-5 H Mycoplasma pneumon IgM Negative 10/26/18 10/26/18 10/27/18 20:07 21:22 06:42 Puncture Site pCO2 pO2 HCO3 ABG pH ABG Total CO2 ABG O2 Saturation ABG Base Excess ABG Hemoglobin ABG Carboxyhemoglobin POC ABG HHb (Measured) ABG Methemoglobin Nicholas Test A-a O2 Difference Respiratory Index Hgb O2 Saturation Vent Mode FiO2 Inspiratory BiPAP Expiratory BiPAP POC Glucose (mg/dL) 252 H 354 H Procalcitonin 1.45 H Urine Color Urine Clarity Urine pH Ur Specific [place] Urine Protein Urine Glucose (UA) Urine Ketones Urine Blood Urine Nitrate Urine Bilirubin Urine Urobilinogen Ur Leukocyte Esterase Urine WBC (Auto) Urine RBC (Auto) Ur Squamous Epith Cells Urine Bacteria Hyaline Casts Mycoplasma pneumon IgM 10/27/18 11:51 Puncture Site pCO2 pO2 HCO3 ABG pH ABG Total CO2 ABG O2 Saturation ABG Base Excess ABG Hemoglobin ABG Carboxyhemoglobin POC ABG HHb (Measured) ABG Methemoglobin Nicholas Test A-a O2 Difference Respiratory Index Hgb O2 Saturation Vent Mode FiO2 Inspiratory BiPAP Expiratory BiPAP POC Glucose (mg/dL) 410 H* Procalcitonin Urine Color Urine Clarity Urine pH Ur Specific [place] Urine Protein Urine Glucose (UA) Urine Ketones Urine Blood Urine Nitrate Urine Bilirubin Urine Urobilinogen Ur Leukocyte Esterase Urine WBC (Auto) Urine RBC (Auto) Ur Squamous Epith Cells Urine Bacteria Hyaline Casts Mycoplasma pneumon IgM Assessment & Plan - Assessment and Plan (Free Text) Assessment: Palliative consult There was no Advance Directive on chart, PPS 20% I reviewed all Medical records, diagnostic studies and examined and interviewed patient in the bed. Patient is alert, oriented X 3, with affect that is depressed. Patient cries easily and often. She admits to be feeling " more depressed". Patient complains of being tired and " want to go". I supported her in her fight with cancer. Patient is breathing with BiPap support and gets easily SOB while taking. Her nose and mouth are dry. PCO2 elevated. FiO2 at 40%. O2Sat 98 %. Patient swallows well and tolerates food. She reports decreased appetite. Patient is incontinent of bowel and bladder. Patient is obese, it takes max assistance to reposition her. There is foot droop to both feet. Patient is mostly on bed rest. I reviewed her clinical presentation and elicited her understanding. Patient understands she had a cancer and will not be able to regain normal life. Patient wishes to be comfortable and pain free. I reassured her that she will receive all needed care to promote her comfort . Goals of care discussed. Patient repeated many times that she was feeling very tired and cried throughout the interview. Patient stated feeling pressured by her and daughter who are not accepting her condition . Patient feels just too weak and unable to fight any more. Patient said that she would not want any further aggressive interventions such as CPR or MV support if her condition gets worse. This was witnessed by Nurse Marleen. Patient signed POLST, requesting DNR/DNI. I shared this with nursing and Doctor Jami. Impression * Metastatic cancer disease * Pneumonia, needs for central live and IV antibiotics * SOB * Patient feels unable to fight, feeling tired * Depression * Bed ridden, obese, limited mobility, foot droop * Patient admits to worsened depression, cries often * Patient requesting ordinary care only, asked for DNR/DNI Suggestion * Promotion of Comfort should be our primary goal in the face of this very complex patient's presentation * Would refer to Psych for evaluation and treatment of depression * Continue Bi Pap * Oral care with moisturizer * Promote skin integrity * OOB to chair daily with assistance * Central line for IV antibiotics and blood works * Agree with DNR/DNI Palliative care will remain on board to offer support for this very sick lady. Advance care planing 55 min.
[2018-10-27 14:25] LABS: ALB/GLOB RATIO 1.3 (1.0-2.1); ALBUMIN 3.5 g/dL (3.5-5.0); ALT/SGPT 110 U/L (9-52); AST/SGOT 59 U/L (14-36); BLOOD UREA NITROGEN 29 mg/dL (7-17); CALCIUM 9.1 mg/dl (8.6-10.4); GFR NON-AFRICAN AMERICAN > 60
[2018-10-27 14:34] LABS: ANISOCYTOSIS SLIGHT; HYPOCHROMIC SLIGHT; LYMPHOCYTE 10 % (20-40); MONOCYTE 3 % (0-10); NEUTROPHIL 87 % (50-75); PLATELET ESTIMATE NORMAL (NORMAL); POIKILOCYTOSIS SLIGHT; TOTAL CELLS COUNTED 100
[2018-10-27 14:35] LABS: TARGET CELLS SLIGHT; TEARDROP CELLS SLIGHT
--- NOTE | 2018-10-27 15:31 | RAD ---
Date of service: 10/27/2018 HISTORY: PICC Insertion COMPARISON: 10/26/2018. FINDINGS: Right PICC line terminates at the cavoatrial junction. The lungs are well inflated. There is interval improved aeration in the lungs. There is subsegmental atelectasis in the right mid lung and lower lobe. LUNGS: PLEURA: No pleural effusions or pneumothorax. CARDIOVASCULAR: Mild cardiomegaly. No aortic atherosclerotic calcifications present. OSSEOUS STRUCTURES: Within normal limits for the patient's age. VISUALIZED UPPER ABDOMEN: Normal. OTHER FINDINGS: There is chronic elevation of the right hemidiaphragm. IMPRESSION: Right PICC line terminates at the cavoatrial junction. No acute findings.
--- NOTE | 2018-10-27 18:00 | CP.PCM.PN ---
Subjective - Date & Time of Evaluation Date of Evaluation: 10/27/18 Time of Evaluation: 10:20 - Subjective Subjective: Patient seen and examined at bedside. Patient complaints of SOB, weakness, and general pain. She feels nothing is helping her. She wishes to be D/C and she doesn't want her family notified. O: General: chronically ill, mild distress, obese HEENT: atraumatic, normocephalic, dry mucus membranes Cardio: RRR s1 and s2 present Pulm: decreased breath sounds bilaterally GI: soft, + bowel sounds in all four quadrants. Neuro: AAOx3 Extremities: intact, warm, pulses present in all four extremities A: 63-year-old female recently diagnosed with pancreatic cancer with mets to liver, COPD on oxygen, history of DVT/pulmonary embolism on anticoagulation, HTN, DM, HLD, anemia, fibromyalgia presented to emergency room with worsening shortness of breath and cough productive of blood-tinged sputum. Patient recently had a tibial fracture and was transferred to rehab. Patient was placed on BiPAP in the emergency room for hypercapnia and hypoxemia. She is currently being treated for PNA. P: Bilateral PNA continue zosyn IV, azithromycin IV, and Vancomycin IV continue Duoneb, Brovana, solumedrol D/C steroids Continue Bipap Mycoplasma PNA IgM was negative monitor CBC, BMP recommend DNI/DNR consult All further management as per primary team Objective - Vital Signs/Intake and Output Vital Signs (last 24 hours): Temp Pulse Resp BP Pulse Ox 97.6 F 101 H 20 136/76 96 10/27/18 15:49 10/27/18 15:49 10/27/18 15:49 10/27/18 15:49 10/27/18 15:49 Intake and Output: 10/27/18 10/27/18 06:59 18:59 Intake Total 250 Output Total 300 Balance -50 - Medications Medications: Current Medications Albuterol/Ipratropium (Duoneb 3 Mg/0.5 Mg (3 Ml) Ud) 3 ml IH RQ4 PRN PRN Reason: Shortness of Breath Arformoterol Tartrate (Brovana) 15 mcg INH RQ12 [facility] Last Admin: 10/27/18 09:08 Dose: 15 mcg Colchicine (Colocrys) 0.6 mg PO BID [facility] Last Admin: 10/27/18 17:11 Dose: 0.6 mg Dextrose (Dextrose 50% Inj) 0 ml IVP .STAT PRN; Protocol PRN Reason: Hypoglycemia Protocol Dextrose (Glutose 15) 0 gm PO .ONCE PRN; Protocol PRN Reason: Hypoglycemia Protocol Diazepam (Valium) 5 mg PO BID [facility] Last Admin: 10/27/18 17:11 Dose: 5 mg Dicyclomine HCl (Bentyl) 20 mg PO TID [facility] Last Admin: 10/27/18 17:11 Dose: 20 mg Ergocalciferol (Drisdol 50,000 Intl Units Cap) 1 cap PO Q7D [facility] Last Admin: 10/26/18 19:36 Dose: Not Given Ferrous Gluconate (Fergon) 324 mg PO TID [facility] Last Admin: 10/27/18 14:07 Dose: Not Given Furosemide (Lasix) 20 mg IVP DAILY [facility] Last Admin: 10/27/18 13:56 Dose: 20 mg Glucagon (Glucagen Diagnostic Kit) 0 mg IM .STAT PRN; Protocol PRN Reason: Hypoglycemia Protocol Dextrose (Dextrose 5% In Water 1000 Ml) 1,000 mls @ 0 mls/hr IV .Q0M PRN; Protocol PRN Reason: Hypoglycemia Protocol Vancomycin/Sodium Chloride (Vancomycin 1 Gm/Ns 200 Ml) 1 gm in 200 mls @ 133 mls/hr IVPB Q24H [facility]; Protocol Stop: 10/31/18 19:01 Last Admin: 10/26/18 19:31 Dose: 133 mls/hr Piperacillin Sod/Tazobactam Sod (Zosyn 3.375 Gm Iv Premix) 3.375 gm in 50 mls @ 100 mls/hr IVPB Q6H [facility]; Protocol Last Admin: 10/27/18 16:26 Dose: 100 mls/hr Azithromycin 500 mg/ Sodium (Chloride) 250 mls @ 250 mls/hr IVPB DAILY [facility]; Protocol Last Admin: 10/27/18 10:59 Dose: 250 mls/hr Insulin Aspart (Novolog) 12 unit SC AC [facility] Last Admin: 10/27/18 17:11 Dose: 12 units Insulin Glargine (Lantus) 24 unit SC HS [facility] Last Admin: 10/26/18 21:54 Dose: 24 u Insulin Human Regular (Novolin R) 0 unit SC ACHS [facility]; Protocol Last Admin: 10/27/18 17:12 Dose: 4 units Levothyroxine Sodium (Synthroid) 100 mcg PO DAILY@0630 [facility] Last Admin: 10/27/18 06:28 Dose: 100 mcg Methylprednisolone (Solu-Medrol) 40 mg IVP Q8H [facility] Last Admin: 10/27/18 11:00 Dose: 40 mg Nystatin (Nystop Topical Powder) 1 applic TOP BID [facility] Last Admin: 10/27/18 11:00 Dose: Not Given Oxycodone/Acetaminophen (Percocet 5/325 Mg Tab) 1 tab PO Q6H [facility] Stop: 10/30/18 13:31 Last Admin: 10/27/18 13:57 Dose: 1 tab Pantoprazole Sodium (Protonix Inj) 40 mg IVP DAILY [facility] Last Admin: 10/27/18 09:21 Dose: Not Given Rivaroxaban (Xarelto) 20 mg PO DAILY [facility] Last Admin: 10/27/18 09:21 Dose: Not Given Sertraline HCl (Zoloft) 50 mg PO DAILY [facility] Last Admin: 10/27/18 16:26 Dose: 50 mg Sitagliptin Phosphate (Januvia) 100 mg PO DAILY [facility] Last Admin: 10/27/18 09:21 Dose: Not Given Trazodone HCl (Desyrel) 50 mg PO HS PRN PRN Reason: Sleep Trimethobenzamide HCl (Tigan) 200 mg IM Q8 PRN PRN Reason: Nausea/Vomiting Vitamin B Complex/Vit C/Folic Acid (Nephro-Lavinia) 1 tab PO DAILY [facility] Last Admin: 10/27/18 09:21 Dose: Not Given - Labs Labs: 10/27/18 14:01 10/27/18 14:01 PT 16.2 SECONDS (9.7-12.2) H 10/26/18 13:10 INR 1.5 10/26/18 13:10 APTT 29.0 SECONDS (21-34) 10/26/18 13:10 Assessment and Plan (1) Chr obstructive pulmonary disease w/ acute lower respiratory infxn Status: Acute
[2018-10-27] MEDS: Vancomycin 1 gm/NS 200 ml 1 GM/200 ML BAG IVPB SCH (18:26)
--- NOTE | 2018-10-27 19:43 | CARD ---
APPROVED REPORT Date of service: 10/26/2018 EKG Measurement Heart [id number] <Conclusion> Sinus tachycardia with premature supraventricular complexes Otherwise normal ECG
[2018-10-27] MEDS: (Lantus) Insulin Glargine, Recombinant SC SCH (21:27)
--- NOTE | 2018-10-27 22:18 | PCM.RRT ---
MILLWR[employer] INSTRU[employer] Nurses Assessment - Ventilator Settings FIO2 (% Oxygen): 40 - Head Head Exam: ATRAUMATIC, NORMAL INSPECTION, NORMOCEPHALIC - Eyes Eye Exam: EOMI, Normal appearance, PERRL. absent: Nystagmus - Respiratory Exam Respiratory Exam: Clear to Ausculation Bilateral, NORMAL BREATHING PATTERN - Cardiovascular Exam Cardiovascular Exam: Tachycardia, REGULAR RHYTHM, +S1, +S2 - GI/Abdominal Exam GI & Abdominal Exam: Soft, Normal Bowel Sounds. absent: Tenderness - Neurological Exam Neurological Exam: Alert, CN II-XII Intact - Extremities Exam Extremities Exam: Full ROM, Normal Capillary Refill, Normal Inspection Plan - Assessment of Findings&Treatment Plan 63 year old Citizen Of [place] female with extensive past medical history including pancreatic cancer with mets to liver, COPD, hx of DVT/PE on xarelto, COPD, DM, anemia, fibromyalgia, anxiety who was found to be in SVT in the 200's associated with chest discomfort. M[employer] INSTRU[employer] was called as a result. Plan: EKG Troponin Vagal maneuvers 6mg IV Adenosine given. Unofficial consult with Software Designer Dr. Patrick Diaz. Dispo: Patint heart rate broke to 130's after 6mg of Adenosine. Patient reported an improvement in symptoms. Patient seen by Software Designer Dr. Patrick Diaz and subsequently was given 2 rounds of 2.5mg IVP Verpamil and heart rate continued to remain in 120's to 130's Patient subsequently given 60mg PO Cardizem followed by 180 PO Cardizem CD and patient heart rate broke to 104. First troponin negative.
[2018-10-28] MEDS ORDERED: Verapamil 2 ML ONE (00:10)
[2018-10-28] MEDS: diltiaZEM 180 mg/24 Hours CD Cap PO SCH ×2 (00:31→09:55)
[2018-10-28] MEDS: Oxycodone/Acetaminophen 5/325 mg Tab PO SCH ×4 (01:43→19:01)
[2018-10-28] MEDS: MethylPREDNISolone 40 mg Vial IVP SCH ×3 (01:43→18:56)
[2018-10-28 01:46] LABS: ABG ALLEN TEST POS; ARTERIAL BLOOD GAS HCO3 32.1 mmol/L (21-28); ARTERIAL BLOOD GAS O2 SAT 99.1 % (95-98); ARTERIAL BLOOD GAS PCO2 39 mm/Hg (35-45); ARTERIAL BLOOD GAS PH 7.53 (7.35-7.45); ARTERIAL BLOOD GAS PO2 74 mm/Hg (80-100); ARTERIAL BLOOD GAS TCO2 33.8 mmol/L (22-28)
[2018-10-28 02:45] LABS: BASO % 0.5 % (0.0-2.0); EOS % 0.2 % (0.0-4.0); HEMOGLOBIN 9.2 g/dL (11.0-16.0); LYMPH # 0.6 K/uL (1.0-4.3); LYMPH % 5.7 % (20.0-40.0); MEAN CELL VOLUME 78.5 fL (81.0-99.0); MEAN CORPUSCULAR HEMOGLOBIN 23.8 pg (27.0-31.0); MEAN CORPUSCULAR HGB CONC 30.3 g/dL (33.0-37.0); MEAN PLATELET VOLUME 8.7 fL (7.2-11.7); MONO # 0.4 K/uL (0.0-0.8); MONO % 4.2 % (0.0-10.0); NEUT # 9.1 K/uL (1.8-7.0); NEUT % 89.4 % (50.0-75.0); NRBC % 0.1 % (0.0-2.0); PLATELET COUNT 304 K/uL (130-400); RBC 3.89 Mil/uL (3.80-5.20); RED CELL DISTRIBUTION WIDTH 21.1 % (11.5-14.5); WHITE BLOOD COUNT 10.1 K/uL (4.8-10.8)
[2018-10-28 03:21] LABS: LYMPHOCYTE 5 % (20-40); MONOCYTE 3 % (0-10); NEUTROPHIL 92 % (50-75); PLATELET ESTIMATE NORMAL (NORMAL); TOTAL CELLS COUNTED 100
[2018-10-28 03:22] LABS: ANISOCYTOSIS MODERATE; MICROCYTOSIS SLIGHT; OVALOCYTES SLIGHT; POLYCHROMIC MODERATE; TOXIC GRANULATION PRESENT
[2018-10-28 03:26] LABS: ALB/GLOB RATIO 1.3 (1.0-2.1); ALBUMIN 3.3 g/dL (3.5-5.0); ALT/SGPT 89 U/L (9-52); AST/SGOT 41 U/L (14-36); BLOOD UREA NITROGEN 31 mg/dL (7-17); CALCIUM 8.3 mg/dl (8.6-10.4); GFR NON-AFRICAN AMERICAN 56
[2018-10-28] MEDS: Levothyroxine 100 MCG TAB PO SCH (05:45)
[2018-10-28] MEDS: (Novolin R) Insulin Human Regular 100 units/ml vial SC SCH ×4 (08:28→21:58)
[2018-10-28] MEDS: (Novolog) Insulin Aspart, Recombinant 100 u/ml 10 ml vial SC SCH ×3 (08:28→17:07)
--- NOTE | 2018-10-28 08:31 | RAD ---
Date of service: 10/28/2018 HISTORY: sob COMPARISON: 10/27/2018 TECHNIQUE: 1 view obtained. FINDINGS: LUNGS: No active pulmonary disease. PLEURA: No significant pleural effusion identified, no pneumothorax apparent. CARDIOVASCULAR: No aortic atherosclerotic calcification present. Normal cardiac size. No pulmonary vascular congestion. OSSEOUS STRUCTURES: No significant abnormalities. VISUALIZED UPPER ABDOMEN: Normal. OTHER FINDINGS: None. IMPRESSION: No active disease.
[2018-10-28] MEDS: Arformoterol 15 mcg/2 ml Inh Sol INH SCH ×2 (09:12→21:00)
[2018-10-28] MEDS: Magnesium Sulfate 1 gm in D5W 1 GM/100 ML BAG IVPB SCH ×2 (09:53→10:50)
[2018-10-28] MEDS: Piperacill/Tazo 3.375gm in Dex 3.375 GM/50 ML BAG IVPB SCH ×4 (09:54→21:59)
[2018-10-28] MEDS: Multivitamin Vitamin B Complex (Nephro-Vite) Tab PO SCH (09:55)
[2018-10-28] MEDS ORDERED: Arformoterol 15 mcg/2 ml Inh Sol INH SCH (10:00)
--- NOTE | 2018-10-28 10:01 | CP.PCM.PN ---
Subjective - Date & Time of Evaluation Date of Evaluation: 10/28/18 Time of Evaluation: 07:35 - Subjective Subjective: Medicine note ( Dr. Farrell's service covering for Dr. Gutierres Patient was seen and examined at bedside while resting in bed with BiPAP machine on. Patient states that she has diffuse pain. Patient seems very tired this morning and did not have much to say. Objective - Vital Signs/Intake and Output Vital Signs (last 24 hours): Temp Pulse Resp BP Pulse Ox 97.7 F 132 H 20 133/81 95 10/28/18 09:25 10/28/18 09:25 10/28/18 09:25 10/28/18 09:56 10/28/18 09:25 Intake and Output: 10/28/18 10/28/18 06:59 18:59 Output Total 200 Balance -200 - Medications Medications: Current Medications Albuterol/Ipratropium (Duoneb 3 Mg/0.5 Mg (3 Ml) Ud) 3 ml IH RQ4 PRN PRN Reason: Shortness of Breath Arformoterol Tartrate (Brovana) 15 mcg INH RQ12@1000,2200 [facility] Last Admin: 10/28/18 09:12 Dose: 15 mcg Colchicine (Colocrys) 0.6 mg PO BID [facility] Last Admin: 10/28/18 09:55 Dose: 0.6 mg Dextrose (Dextrose 50% Inj) 0 ml IVP .STAT PRN; Protocol PRN Reason: Hypoglycemia Protocol Dextrose (Glutose 15) 0 gm PO .ONCE PRN; Protocol PRN Reason: Hypoglycemia Protocol Diazepam (Valium) 5 mg PO BID [facility] Last Admin: 10/27/18 17:11 Dose: 5 mg Diltiazem HCl (Cardizem Cd) 180 mg PO DAILY [facility] Last Admin: 10/28/18 09:55 Dose: 180 mg Ergocalciferol (Drisdol 50,000 Intl Units Cap) 1 cap PO Q7D [facility] Last Admin: 10/26/18 19:36 Dose: Not Given Famotidine (Pepcid) 20 mg IVP DAILY [facility] Ferrous Gluconate (Fergon) 324 mg PO TID [facility] Last Admin: 10/28/18 09:54 Dose: 324 mg Furosemide (Lasix) 20 mg IVP DAILY [facility] Last Admin: 10/28/18 09:56 Dose: 20 mg Glucagon (Glucagen Diagnostic Kit) 0 mg IM .STAT PRN; Protocol PRN Reason: Hypoglycemia Protocol Dextrose (Dextrose 5% In Water 1000 Ml) 1,000 mls @ 0 mls/hr IV .Q0M PRN; Protocol PRN Reason: Hypoglycemia Protocol Piperacillin Sod/Tazobactam Sod (Zosyn 3.375 Gm Iv Premix) 3.375 gm in 50 mls @ 100 mls/hr IVPB Q6H [facility]; Protocol Last Admin: 10/28/18 09:54 Dose: 100 mls/hr Azithromycin 500 mg/ Sodium (Chloride) 250 mls @ 250 mls/hr IVPB DAILY [facility]; Protocol Last Admin: 10/27/18 10:59 Dose: 250 mls/hr Magnesium Sulfate/Dextrose (Magnesium Sulfate 1 Gm/100 Ml D5w) 1 gm in 100 mls @ 200 mls/hr IVPB Q30M [facility] Stop: 10/28/18 10:44 Last Admin: 10/28/18 09:53 Dose: 200 mls/hr Metronidazole (Flagyl) 500 mg in 100 mls @ 100 mls/hr IVPB Q8H [facility]; Protocol Insulin Aspart (Novolog) 12 unit SC AC [facility] Last Admin: 10/28/18 08:28 Dose: 12 units Insulin Glargine (Lantus) 24 unit SC HS [facility] Last Admin: 10/27/18 21:27 Dose: 24 u Insulin Human Regular (Novolin R) 0 unit SC ACHS [facility]; Protocol Last Admin: 10/28/18 08:28 Dose: 10 units Levothyroxine Sodium (Synthroid) 100 mcg PO DAILY@0630 [facility] Last Admin: 10/28/18 05:45 Dose: 100 mcg Methylprednisolone (Solu-Medrol) 40 mg IVP Q8H [facility] Last Admin: 10/28/18 09:57 Dose: 40 mg Nystatin (Nystop Topical Powder) 1 applic TOP BID [facility] Last Admin: 10/27/18 18:18 Dose: Not Given Oxycodone/Acetaminophen (Percocet 5/325 Mg Tab) 1 tab PO Q6H [facility] Stop: 10/30/18 13:31 Last Admin: 10/28/18 08:28 Dose: 1 tab Potassium Chloride (K-Dur 20 Meq Er Tab) 40 meq PO ONCE ONE Stop: 10/28/18 09:36 Potassium Chloride (K-Dur 20 Meq Er Tab) 40 meq PO ONCE ONE Stop: 10/28/18 10:01 Rivaroxaban (Xarelto) 20 mg PO DAILY [facility] Last Admin: 10/28/18 09:55 Dose: 20 mg Sertraline HCl (Zoloft) 50 mg PO DAILY [facility] Last Admin: 10/28/18 09:55 Dose: 50 mg Sitagliptin Phosphate (Januvia) 100 mg PO DAILY [facility] Last Admin: 10/28/18 09:54 Dose: 100 mg Trazodone HCl (Desyrel) 50 mg PO HS PRN PRN Reason: Sleep Last Admin: 10/27/18 21:27 Dose: 50 mg Trimethobenzamide HCl (Tigan) 200 mg IM Q8 PRN PRN Reason: Nausea/Vomiting Vitamin B Complex/Vit C/Folic Acid (Nephro-Lavinia) 1 tab PO DAILY [facility] Last Admin: 10/28/18 09:55 Dose: 1 tab - Labs Labs: 10/28/18 02:50 10/28/18 02:50 PT 16.2 SECONDS (9.7-12.2) H 10/26/18 13:10 INR 1.5 10/26/18 13:10 APTT 29.0 SECONDS (21-34) 10/26/18 13:10 - Constitutional Appears: Non-toxic - Head Exam Head Exam: ATRAUMATIC - Eye Exam Eye Exam: EOMI - ENT Exam ENT Exam: Mucous Membranes Moist - Respiratory Exam Respiratory Exam: NORMAL BREATHING PATTERN Additional comments: On BiPAP - Cardiovascular Exam Cardiovascular Exam: Tachycardia, REGULAR RHYTHM, +S1, +S2 - GI/Abdominal Exam GI & Abdominal Exam: Soft, Normal Bowel Sounds. absent: Distended, Firm, Guarding, Rigid - Extremities Exam Extremities Exam: absent: Calf Tenderness, Pedal Edema - Neurological Exam Neurological Exam: Alert, Awake, Oriented x3 - Psychiatric Exam Psychiatric exam: Flat Affect - Skin Skin Exam: Normal Color Assessment and Plan (1) Sepsis Assessment & Plan: Secondary to healthcare acquired pneumonia Consultation: - ID, Dr. Little---> help appreciated Labs/Vitals: - On admission: WBC (11.9); downtrending - Tachycardia, Afebrile [id number] Imaging: Chest CT without contrast: Worsening airspace consolidative changes seen in the bilateral lower lobes; left greater than right. This may be the sequelae of acute infectious changes. Clinical correlation. Post treatment interval Medications: - Vancomycin 1gm IV daily (Received 2 doses- 10/26 & 10/27) -Azithromycin 500mg IVPB daily (stared 10/27/18) - Florastor 250mg PO BID Status: Acute (2) SVT (supraventricular tachycardia) Assessment & Plan: Consultation: * Telephony EngineerDr. Pineda---> Help appreciated History of Tachycardia * OIL LEASE BUYER at 11:00pm 10/27/18 for episode of SVT * Cardizem 180mg PO daily Status: Acute (3) Elevated troponin Assessment & Plan: Consultation: * Telephony EngineerDr. Pineda---> Help appreciated * No ST changes Status: Acute (4) Clostridium difficile infection Assessment & Plan: Consultation: IDDr. Little---> help appreciated Labs: C-difficle toxin (10/27/18): Positive * This was checked due known exposure at the care home prior to admission Medications: * Flagyl 500mg IV Q8H (Initiated 10/28/18) * Zosyn 3.375gm IV Q6H ( Initiated 10/26/18) * Florastor 250mg PO BID As per nursing, patient has not had an episode of diarrhea on her shift for the past 2 days Status: Acute (5) Pancreatic cancer metastasized to liver Assessment & Plan: Procedure (10/11/18): Findings: Metastasis to the liver, grossly single nodule. Cystic lesion and harden pancreas. - Pathology: Adenocarcinoma, favor pancreatico-Biliary Labs and imaging: - CEA: 42.5, CA19-9: 1980, CA125: 36.2 - Abdomen/Pelvic CT: Heterogeneous hyperdense pancreatic mass measuring approximately 2.7 x 2.5 cm at the pancreatic body/tail. Ectatic dilated pancreatic duct. Additional cystic heterogeneous focus measuring approximately 15 x 14 mm is noted at the superior aspect of the pancreas. Appearance worrisome for malignant neoplasm. Wall thickening involving the 2nd portion of the duodenum of uncertain significance; considerations include infectious, infla mmatory, or malignant etiologies. Correlate clinically and recommend further evaluation with direct visualization if indicated. Small pelvic free fluid Status: Acute (6) CHF (congestive heart failure) Assessment & Plan: on admission: - BNP:[id number] Imaging: - Chest X-ray (10/26/18): Findings are concerning for developing congestive heart failure Medication: - Lasix 20mg IV daily Status: Chronic (7) Diabetes mellitus Assessment & Plan: HgbA1C (09/07/18): 9.0 Accuchecks ISS- High dose Novolog 12 units AC Lantus 24units SC HS Glipizide 10mg PO BID Januvia 100mg PO daily Hypoglycemia protocol Status: Acute (8) Hypothyroid Assessment & Plan: - TSH/Free T4 (09/07/18): 9.5/0.30 - Continue Synthroid 100mcg PO daily Status: Acute (9) History of DVT (deep vein thrombosis) Assessment & Plan: - Continue Xarelto 20mg PO daily Status: Acute (10) Gout Assessment & Plan: Colchicine 0.6mg PO BID Status: Acute (11) Chr obstructive pulmonary disease w/ acute lower respiratory infxn Assessment & Plan: Consultation: * Pulmonology, Dr. Dickerson Imaging: Chest CT without contrast: Worsening airspace consolidative changes seen in the bilateral lower lobes; left greater than right. This may be the sequelae of acute infectious changes. Clinical correlation. Post treatment interval Medications: -Azithromycin 500mg IVPB daily (stared 10/27/18) -Duoneb 3ml IH RQ4 PRN for shortness of breath - Brovana 15mcg INH RQ12H - Solumedrol 40mg IVP Q8H - BiPAP continuos - Florastor 250mg PO BID Status: Acute (12) History of anemia Assessment & Plan: H/H stable - Fergon 324mg PO TID Status: Acute (13) Ulcer Assessment & Plan: Sacral; stage 2 Wound care consult - Recommendation for use of hydrogen peroxide - Turn Q2H Status: Acute (14) Intertrigo Assessment & Plan: -Started Nystatin Powder BID Status: Acute (15) Psychiatric disturbance Assessment & Plan: Depression and anxiety Consultation * Psychiatry, Dr. Dexter----> Help appreciated Medications: * Clonazepam 0.5mg PO BID * Zoloft 50mg PO daily Status: Acute (16) Electrolyte disturbance Assessment & Plan: Hypomagnesemia and hypokalemia * Repleted appropriately * Continue to monitor with am labs Status: Acute (17) Fibromyalgia Assessment & Plan: -Home medication: Diazepam 5mg PO BID -Percocet 5/325mg 2 tab Q6H prn for pain Status: Acute (18) Prophylactic measure Assessment & Plan: -GI: Pepcid 20mg IV daily - DVT: Xarelto 20mg PO daily (Held) - PT/OT - Palliative care consulted to discuss goals of care: Patient is now DNR/DNI; POLST form signed; refer to patient's chart All plans and management discussed with Dr. Farrell Status: Acute
[2018-10-28] MEDS ORDERED: Potassium Chloride 20 mEq ER Tab PO ONE ×3 (10:15→13:30)
[2018-10-28] MEDS ORDERED: metroNIDAZOLE IV 500 mg/100 ml 500 MG/100 ML BAG IVPB SCH (10:45)
[2018-10-28] MEDS: Azithromycin 500 MG in Sodium Chloride 0.9% 250 ML IVPB SCH (11:29)
--- NOTE | 2018-10-28 11:53 | PCM.PSYCH ---
Initial Psychiatric Evaluation - Initial Psychiatric Evaluation Type of Admission: Voluntary Legal Status: Capacity Chief Complaint (in patient's own words): "I have pain" History of Present Illness and Precipitating Events: She is seen, chart reviewed and case discussed Cosult was requested for her depression This is a 63 y/o female, w 2 children, living with her and daughter. She admits to having been depressed "all (her) life" and that it got worse lately due to worsening medical condition. She reports depressive sxs and anxiety but denies any active SI. No jorge or psychosis either She is aware of her condition, prognosis, risks of refusing treatment (which she does. Refusing chemo). She says she doesn't mind if she dies as she "will anyways." She claims she has been feeling like this for a long time and that she had shared with others too. Past psych hx: "Long ago" she had SI and psych treatment but no admission Medical: As per chart - pancreas cancer Famiy psych hx: Unknown Current Medications: Active Medications Generic Name Dose Route Start Last Admin Trade Name Freq PRN Reason Stop Dose Admin Albuterol/Ipratropium 3 ml 10/26/18 17:34 Duoneb 3 Mg/0.5 Mg (3 Ml) Ud IH RQ4 PRN Shortness of Breath Arformoterol Tartrate 15 mcg 10/28/18 10:00 10/28/18 09:12 Brovana INH 15 mcg RQ12@1000,2200 [facility] Administration Colchicine 0.6 mg 10/26/18 18:00 10/28/18 09:55 Colocrys PO 0.6 mg BID MATIAS Administration Dextrose 0 ml 10/26/18 17:28 Dextrose 50% Inj IVP .STAT PRN Hypoglycemia Protocol Protocol Dextrose 0 gm 10/26/18 17:28 Glutose 15 PO .ONCE PRN Hypoglycemia Protocol Protocol Diazepam 5 mg 10/27/18 18:00 10/28/18 09:55 Valium PO 5 mg BID MATIAS Administration Diltiazem HCl 180 mg 10/28/18 00:00 10/28/18 09:55 Cardizem Cd PO 180 mg DAILY [facility] Administration Ergocalciferol 1 cap 10/26/18 17:45 10/26/18 19:36 Drisdol 50,000 Intl Units Cap PO Not Given Q7D [facility] Famotidine 20 mg 10/28/18 10:45 Pepcid IVP DAILY MATI[facility] Ferrous Gluconate 324 mg 10/26/18 18:00 10/28/18 09:54 Fergon PO 324 mg TID [facility] Administration Furosemide 20 mg 10/27/18 13:30 10/28/18 09:56 Lasix IVP 20 mg DAILY [facility] Administration Glucagon 0 mg 10/26/18 17:28 Glucagen Diagnostic Kit IM .STAT PRN Hypoglycemia Protocol Protocol Dextrose 1,000 mls @ 0 mls/hr 10/26/18 17:28 Dextrose 5% In Water 1000 Ml IV .Q0M PRN Hypoglycemia Protocol Protocol Per Protocol Piperacillin Sod/Tazobactam Sod 3.375 gm in 50 mls @ 100 mls/hr 10/26/18 22:00 10/28/18 11:00 Zosyn 3.375 Gm Iv Premix IVPB 100 mls/hr Q6H [facility] Administration Protocol Azithromycin 500 mg/ Sodium 250 mls @ 250 mls/hr 10/27/18 10:00 10/28/18 11:29 Chloride IVPB 250 mls/hr DAILY [facility] Administration Protocol Metronidazole 500 mg in 100 mls @ 100 mls/hr 10/28/18 12:00 Flagyl IVPB Q8H [facility] Protocol Insulin Aspart 12 unit 10/27/18 07:30 10/28/18 08:28 Novolog SC 12 units AC [facility] Administration Insulin Glargine 24 unit 10/26/18 22:00 10/27/18 21:27 Lantus SC 24 u HS [facility] Administration Insulin Human Regular 0 unit 10/27/18 15:00 10/28/18 08:28 Novolin R SC 10 units ACHS [facility]IAS Administration Protocol Levothyroxine Sodium 100 mcg 10/27/18 06:30 10/28/18 05:45 Synthroid PO 100 mcg DAILY@0630 [facility] Administration Methylprednisolone 40 mg 10/26/18 18:30 10/28/18 09:57 Solu-Medrol IVP 40 mg Q8H [facility] Administration Nystatin 1 applic 10/26/18 18:00 10/28/18 09:55 Nystop Topical Powder TOP 1 applic BID [facility] Administration Oxycodone/Acetaminophen 1 tab 10/27/18 13:30 10/28/18 08:28 Percocet 5/325 Mg Tab PO 10/30/18 13:31 1 tab Q6H [facility] Administration Potassium Chloride 40 meq 10/28/18 12:00 K-Dur 20 Meq Er Tab PO 10/28/18 12:01 ONCE ONE Rivaroxaban 20 mg 10/27/18 10:00 10/28/18 09:55 Xarelto PO 20 mg DAILY [facility] Administration Saccharomyces Boulardii 250 mg 10/28/18 18:00 Florastor PO BID [facility] Sertraline HCl 50 mg 10/27/18 15:30 10/28/18 09:55 Zoloft PO 50 mg DAILY [facility] Administration Sitagliptin Phosphate 100 mg 10/27/18 10:00 10/28/18 09:54 Januvia PO 100 mg DAILY [facility] Administration Trazodone HCl 50 mg 10/26/18 17:34 10/27/18 21:27 Desyrel PO 50 mg HS PRN Administration Sleep Trimethobenzamide HCl 200 mg 10/26/18 17:34 Tigan IM Q8 PRN Nausea/Vomiting Vitamin B Complex/Vit C/Folic Acid 1 tab 10/27/18 10:00 10/28/18 09:55 Nephro-Lavinia PO 1 tab DAILY [facility] Administration Past Psychiatric History - Past Psychiatric History Previous Treatment History: Intensive Outpatient Pertinent Medical Hx (Current Medical&Sleep Prob, Allergies): Allergies Allergy/AdvReac Type Severity Reaction Status Date / Time No Known Allergies Allergy Verified 10/26/18 12:08 Cyclobenzaprine [Flexeril] 5 mg PO TID 07/07/18 Saccharomyces Boulardi [Florastor] 250 mg PO Q12 cap 07/13/18 Albuterol/Ipratropium [Duoneb 3 mg/0.5 mg (3 ml) UD] 3 ml IH Q4 PRN #30 vial 07/15/18 Colchicine [Colcrys] 0.6 mg PO BID #60 tablet 07/15/18 Gabapentin [Neurontin] 300 mg PO HS #30 cap 07/15/18 GlipiZIDE [Glucotrol] 10 mg PO BID #60 tab 07/15/18 Levothyroxine [Synthroid] 100 mcg PO DAILY #30 tab 07/15/18 Pantoprazole [Protonix EC Tab] 40 mg PO DAILY #30 ect 07/15/18 Rivaroxaban [Xarelto] 20 mg PO DAILY #30 tab 07/15/18 SITagliptin [Januvia] 100 mg PO DAILY #30 tab 07/15/18 Dicyclomine [Bentyl] 20 mg PO TID cap 09/15/18 Ergocalciferol [Drisdol 50,000 Intl Units Cap] 1 cap PO Q7D cap 09/15/18 Ferrous Gluconate [Fergon] 324 mg PO TID tab 09/15/18 Fluticasone/Vilanterol 100/25 [Breo Ellipta 100-25 MCG INH] 1 puff INH RQ24 puff 09/15/18 Furosemide [Lasix] 20 mg PO BID tab 09/15/18 Insulin Aspart, Recombinant [Novolog] 12 unit SC AC unit 09/15/18 Insulin Glargine, Recombina [Lantus] 24 unit SC HS unit 09/15/18 Magnesium Oxide [Mag-Ox] 400 mg PO BID tab 09/15/18 Potassium Chloride [K-Dur 20 mEq ER Tab] 20 meq PO DAILY tab 09/15/18 Sertraline [Zoloft] 50 mg PO DAILY tab 09/15/18 diaZEpam [Valium] 5 mg PO BID tab 09/15/18 diltiaZEM CD [Cardizem CD] 180 mg PO BID cap 09/15/18 oxyCODONE/Acetaminophen [Percocet 5/325 mg Tab] 2 tab PO Q6H PRN #15 tab 09/15/18 predniSONE [predniSONE Tab] 10 mg PO DAILY #3 tab 09/15/18 traZODone [Desyrel] 50 mg PO HS tab 09/15/18 Acetaminophen 2 tab PO Q4 PRN 09/20/18 Acetaminophen 2 tab PO Q4 PRN 09/20/18 Trimethobenzamide [Tigan] 200 mg IM Q8 PRN 09/20/18 Vitamin B Complex/Vit C/Folic [Nephro-Lavinia] 1 tab PO DAILY 09/20/18 Zinc Oxide/Cl-Xylenol/Petrolat [Perishield Ointment] 1 oin TP QSHIFT 09/20/18 Nystatin [Nystop Topical Powder] 1 applic TOP BID bottle 10/17/18 Review of Systems - Psychiatric Psychiatric: Abnormal Sleep Pattern, Anhedonia, Anxiety, Change in Appetite, Depression, Difficulty Concentrating, Hopelessness. absent: Hallucinations, Homicidal Ideation, Paranoia, Suicidal Ideation Mental Status Examination - Personal Presentation Personal Presentation: Looks stated age - Affect Affect: Constricted - Motor Activity Motor Activity: Calm - Reliability in Providing Information Reliability in Providing Information: Good - Speech Speech: Organized - Mood Mood: Depressed, Anxious - Formal Thought Process Formal Thought Process: No Impairment - Cognitive Functions Orientation: Person, Place, Situation, Time Sensorium: Drowsy Attention/Concentration: Easily distracted Estimate of Intelligence: Average Memory: Recent intact, as evidence by: Ability to recall events of the day, Remote impaired as evidenced by: Inability to recall sig life events - Risk Risk: Diminished functioning - Strength & Assets Inventory Strength & Assets Inventory: Cooperative DSM 5 DX - DSM 5 DSM 5 Diagnosis: Major depression, recurrent, severe, without psychosis Anxiety d/o - unspecified Bereavement rxn - Recommended/Plan of Treatment Treatment Recommendations and Plan of Treatment: Lexapro for depression Klonopin low dose for anxiety Supportive therapy Psychoed She has capacity to make medical decisions. 33 min
--- NOTE | 2018-10-28 12:31 | CP.PCM.PN ---
Subjective - Date & Time of Evaluation Date of Evaluation: 10/28/18 Time of Evaluation: 11:00 - Subjective Subjective: Patient seen and examined Rapid response yesterday for SVT Still having shortness of breath and on BiPAP Patient DNR/DNI Being treated for pneumonia Objective - Vital Signs/Intake and Output Vital Signs (last 24 hours): Temp Pulse Resp BP Pulse Ox 97.7 F 132 H 20 133/81 95 10/28/18 09:25 10/28/18 09:25 10/28/18 09:25 10/28/18 09:56 10/28/18 09:25 Intake and Output: 10/28/18 10/28/18 06:59 18:59 Output Total 200 Balance -200 - Medications Medications: Current Medications Albuterol/Ipratropium (Duoneb 3 Mg/0.5 Mg (3 Ml) Ud) 3 ml IH RQ4 PRN PRN Reason: Shortness of Breath Arformoterol Tartrate (Brovana) 15 mcg INH RQ12@1000,2200 [facility] Last Admin: 10/28/18 09:12 Dose: 15 mcg Clonazepam (Klonopin) 0.5 mg PO BID [facility] Colchicine (Colocrys) 0.6 mg PO BID [facility] Last Admin: 10/28/18 09:55 Dose: 0.6 mg Dextrose (Dextrose 50% Inj) 0 ml IVP .STAT PRN; Protocol PRN Reason: Hypoglycemia Protocol Dextrose (Glutose 15) 0 gm PO .ONCE PRN; Protocol PRN Reason: Hypoglycemia Protocol Diazepam (Valium) 5 mg PO BID [facility] Last Admin: 10/28/18 09:55 Dose: 5 mg Diltiazem HCl (Cardizem Cd) 180 mg PO DAILY [facility] Last Admin: 10/28/18 09:55 Dose: 180 mg Ergocalciferol (Drisdol 50,000 Intl Units Cap) 1 cap PO Q7D [facility] Last Admin: 10/26/18 19:36 Dose: Not Given Escitalopram Oxalate (Lexapro) 5 mg PO DAILY [facility] Famotidine (Pepcid) 20 mg IVP DAILY [facility] Last Admin: 10/28/18 11:45 Dose: 20 mg Ferrous Gluconate (Fergon) 324 mg PO TID [facility] Last Admin: 10/28/18 09:54 Dose: 324 mg Furosemide (Lasix) 20 mg IVP DAILY [facility] Last Admin: 10/28/18 09:56 Dose: 20 mg Glucagon (Glucagen Diagnostic Kit) 0 mg IM .STAT PRN; Protocol PRN Reason: Hypoglycemia Protocol Dextrose (Dextrose 5% In Water 1000 Ml) 1,000 mls @ 0 mls/hr IV .Q0M PRN; Protocol PRN Reason: Hypoglycemia Protocol Piperacillin Sod/Tazobactam Sod (Zosyn 3.375 Gm Iv Premix) 3.375 gm in 50 mls @ 100 mls/hr IVPB Q6H [facility]; Protocol Last Admin: 10/28/18 11:00 Dose: 100 mls/hr Azithromycin 500 mg/ Sodium (Chloride) 250 mls @ 250 mls/hr IVPB DAILY [facility]; Protocol Last Admin: 10/28/18 11:29 Dose: 250 mls/hr Metronidazole (Flagyl) 500 mg in 100 mls @ 100 mls/hr IVPB Q8H [facility]; Protocol Insulin Aspart (Novolog) 12 unit SC AC [facility] Last Admin: 10/28/18 12:15 Dose: 12 units Insulin Glargine (Lantus) 24 unit SC HS [facility] Last Admin: 10/27/18 21:27 Dose: 24 u Insulin Human Regular (Novolin R) 0 unit SC ACHS [facility]; Protocol Last Admin: 10/28/18 12:15 Dose: 10 units Levothyroxine Sodium (Synthroid) 100 mcg PO DAILY@0630 [facility] Last Admin: 10/28/18 05:45 Dose: 100 mcg Methylprednisolone (Solu-Medrol) 40 mg IVP Q8H [facility] Last Admin: 10/28/18 09:57 Dose: 40 mg Nystatin (Nystop Topical Powder) 1 applic TOP BID [facility] Last Admin: 10/28/18 09:55 Dose: 1 applic Oxycodone/Acetaminophen (Percocet 5/325 Mg Tab) 1 tab PO Q6H [facility] Stop: 10/30/18 13:31 Last Admin: 10/28/18 08:28 Dose: 1 tab Rivaroxaban (Xarelto) 20 mg PO DAILY [facility] Last Admin: 10/28/18 09:55 Dose: 20 mg Saccharomyces Boulardii (Florastor) 250 mg PO BID [facility] Sertraline HCl (Zoloft) 50 mg PO DAILY [facility] Last Admin: 10/28/18 09:55 Dose: 50 mg Sitagliptin Phosphate (Januvia) 100 mg PO DAILY [facility] Last Admin: 10/28/18 09:54 Dose: 100 mg Trazodone HCl (Desyrel) 50 mg PO HS PRN PRN Reason: Sleep Last Admin: 10/27/18 21:27 Dose: 50 mg Trimethobenzamide HCl (Tigan) 200 mg IM Q8 PRN PRN Reason: Nausea/Vomiting Vitamin B Complex/Vit C/Folic Acid (Nephro-Lavinia) 1 tab PO DAILY [facility] Last Admin: 10/28/18 09:55 Dose: 1 tab - Labs Labs: 10/28/18 02:50 10/28/18 02:50 PT 16.2 SECONDS (9.7-12.2) H 10/26/18 13:10 INR 1.5 10/26/18 13:10 APTT 29.0 SECONDS (21-34) 10/26/18 13:10 - Head Exam Head Exam: ATRAUMATIC, NORMOCEPHALIC - ENT Exam ENT Exam: Mucous Membranes Moist - Neck Exam Neck Exam: Normal Inspection - Respiratory Exam Respiratory Exam: Decreased Breath Sounds - Cardiovascular Exam Cardiovascular Exam: Tachycardia - GI/Abdominal Exam GI & Abdominal Exam: Soft, Normal Bowel Sounds Assessment and Plan (1) Respiratory insufficiency/failure Assessment & Plan: Continue BiPAP IV antibiotics for pneumonia Continue nebulizer treatment Potassium supplement Continue Cardizem Patient DNR/DNI Prognosis poor Status: Acute (2) Chr obstructive pulmonary disease w/ acute lower respiratory infxn Status: Acute (3) Pancreatic cancer metastasized to liver Status: Acute
[2018-10-28] MEDS: metroNIDAZOLE IV 500 mg/100 ml 500 MG/100 ML BAG IVPB SCH ×2 (12:52→19:56)
--- NOTE | 2018-10-28 14:38 | CP.PCM.CON ---
History of Present Illness - History of Present Illness History of Present Illness: 63 year old female with severe end stage COPD and recently diagnosed stage IV pancreatic cancer with liver metastasis diagnosed 10/2018, presenting from the half-way and found to have pneumonia. She notes to worsening diffuse body aches with subjective fevers and cough. Was started on antibiotics Has hx of cdiff from half-way Past medical history: Fibromyalgia, COPD, HTN, DM, HL Stage IV Pancreatic CA Past surgical history: Cholecystectomy, appendectomy, hysterectomy Family history: Denies hematologic and oncologic problems Social history: Former tobacco abuse Allergies: NKA Review of Systems - Review of Systems All systems: reviewed and no additional remarkable complaints except - Constitutional Constitutional: As Per HPI, Lethargy, Malaise - EENT Eyes: absent: As Per HPI, Blind Spots, Blurred Vision, Change in Vision, Decreased Night Vision, Diplopia, Discharge, Dry Eye, Exophthalmos, Floaters, Irritation, Itchy Eyes, Loss of Peripheral Vision, Pain, Photophobia, Requires Corrective Lenses, Sees Flashes, Spots in Vision, Tunnel Vision, Other Visual Disturbances, Loss of Vision, Other Ears: absent: As Per HPI, Decreased Hearing, Ear Discharge, Ear Pain, Tinnitus, Abnormal Hearing, Disequilibrium, Dizziness, Other Nose/Mouth/Throat: absent: As Per HPI, Epistaxis, Nasal Congestion, Nasal Discharge, Nasal Obstruction, Nasal Trauma, Nose Pain, Post Nasal Drip, Sinus Pain, Sinus Pressure, Bleeding Gums, Change in Voice, Dental Pain, Dry Mouth, Dysphagia, Halitosis, Hoarsness, Lip Swelling, Mouth Lesions, Mouth Pain, Odynophagia, Sore Throat, Throat Swelling, Tongue Swelling, Facial Pain, Neck P ain, Neck Mass, Other - Breasts Breasts: absent: As Per HPI, Change in Shape, Mass, Pain, Nipple Discharge, Nipple Inversion, Skin Changes, Swelling, Other - Cardiovascular Cardiovascular: absent: As Per HPI, Acrocyanosis, Chest Pain, Chest Pain at Rest, Chest Pain with Activity, Claudication, Diaphoresis, Dyspnea, Dyspnea on Exertion, Edema, Irregular Heart Rhythm, Pain Radiating to Arm/Neck/Jaw, Leg Edema, Leg Ulcers, Lightheadedness, Orthopnea, Palpitations, Paroxysmal Nocturnal Dyspnea, Pedal Edema, Radiating Pain, Rapid Heart Rate, Slow Heart Rate, Syncope, Other - Respiratory Respiratory: Cough, Dyspnea - Gastrointestinal Gastrointestinal: As Per HPI, Abdominal Pain. absent: Diarrhea - Genitourinary Genitourinary: absent: As Per HPI, Change in Urinary Stream, Difficulty Urinating, Dysuria, Flank Pain, Hematuria, Pyuria, Nocturia, Urinary Incontinence, Urinary Frequency, Urinary Hesitance, Urinary Urgency, Voiding Freq/Small Amts, Freq UTI, Hx Renal/Bladder Calculi, Hx /Renal Surgery, Bladder Distension, Other - Reproductive: Female Reproductive:Female: absent: As Per HPI, Amenorrhea, Amenorrhea/ Control, Currently Menstual, Cycle <21 Days, Cycle >35 Days, Cycle Variable, Menses 1-7 Days, Menses >/= 8 Days, Menses Variable, Cycle > 4 Weeks Between, No Menses for 6 Months, Heavy Menses, Light Menses, Normal Menses, Spotting Between Cycles, S/P Hysterectomy, Menopausal, Post Menopausal, Premenarche, Abnormal Vaginal Bleeding, Dysmenorrhea, Dyspareunia, Genital Lesions, Genital Pruritis, Pelvic Pain, Prolapse Symptoms, Sexual Dysfunction, Vaginal Discharge, Vaginal Dryness, Vaginal Odor, Vaginal Pruritis, Other - Menstruation Menstruation: absent: As Per HPI, Amenorrhea, Amenorrhea/ Control, Currently Menstual, Cycle <21 Days, Cycle >35 Days, Cycle Variable, Menses 1-7 Days, Menses >/= 8 Days, Menses Variable, Cycle > 4 Weeks Between, No Menses for 6 Months, Heavy Menses, Light Menses, Normal Menses, Spotting Between Cycles, S/P Hysterectomy, Menopausal, Post Menopausal, Premenarche, Abnormal Vaginal Bleeding, Dysmenorrhea, Other - Musculoskeletal Musculoskeletal: absent: As Per HPI, Abnormal Gait, Arthralgias, Atrophy, Back Pain, Deformity, Joint Swelling, Limited Range of Motion, Loss of Height, Muscle Cramps, Muscle Weakness, Myalgias, Neck Pain, Numbness, Radiating Pain into Limb, Stiffness, Tingling, Other - Integumentary Integumentary: absent: As Per HPI, Acne, Alopecia, Bleeding Lesions, Change in Hair, Change in Nails, Change in Pigmentation, Changing Lesions, Dry Skin, Erythema, Furuncle, Hirsutism, Lesions, New Lesions, Non-Healing Lesions, Photosensitivity, Pruritus, Rash, Skin Pain, Skin Ulcer, Sores, Striae, Swelling, Unusual Bruising, Wounds, Jaundice, Other - Neurological Neurological: absent: As Per HPI, Abnormal Gait, Abnormal Hearing, Abnormal Movements, Abnormal Speech, Behavioral Changes, Burning Sensations, Confusion, Convulsions, Disequilibrium, Dizziness, Numbness, Focal Weakness, Frequent Falls, Headaches, Lack of Coordination, Loss of Vision, Memory Loss, Paresthesias, Radicular Pain, Restless Legs, Sensory Deficit, Syncope, Tingling, Tremor, Vertigo, Weakness, Other Visual Disturbances, Other - Psychiatric Psychiatric: As Per HPI - Endocrine Endocrine: absent: As Per HPI, Change in Body Appearance, Change in Libido, Cold Intolorance, Deepening of Voice, Excessive Sweating, Fatigue, Flushing, Heat Intolorance, Increase in Ring/Shoe/Hat Size, Palpitations, Polydipsia, Polyphagia, Polyuria, Other - Hematologic/Lymphatic Hematologic: As Per HPI Past Patient History - Infectious Disease Hx of Infectious Diseases: None, C.diff - Past Medical History & Family History Past Medical History?: Yes - Past Social History Smoking Status: Never Smoked - CARDIAC Hx Cardia Arrhythmia: Yes Hx Congestive Heart Failure: Yes Hx Hypercholesterolemia: Yes Hx Hypertension: Yes Hx Pacemaker: No - PULMONARY Hx Asthma: Yes Hx Chronic Obstructive Pulmonary Disease (COPD): Yes Hx Pulmonary Embolism: Yes (on Coumadin W/ IVC filter) - NEUROLOGICAL Hx Neurological Disorder: Yes HX Cerebrovascular Accident: Yes - HEENT Hx HEENT Problems: No - RENAL Hx Chronic Kidney Disease: No - ENDOCRINE/METABOLIC Hx Hypothyroidism: Yes - HEMATOLOGICAL/ONCOLOGICAL Hx Anemia: Yes - INTEGUMENTARY Hx Dermatological Problems: No - MUSCULOSKELETAL/RHEUMATOLOGICAL Hx Arthritis: Yes (R THR /ORIF) Hx Fractures: Yes (R HIP) Hx Rheumatoid Arthritis: Yes - GASTROINTESTINAL Hx Gall Bladder Disease: Yes - GENITOURINARY/GYNECOLOGICAL Hx Genitourinary Disorders: Yes Hx Urinary Tract Infection: Yes - PSYCHIATRIC Hx Anxiety: Yes Hx Depression: Yes Hx Substance Use: No - SURGICAL HISTORY Hx Appendectomy: No Hx Cholecystectomy: Yes - ANESTHESIA Hx Anesthesia Reactions: Yes (DIFFICULTY BREATHING) Meds Allergies/Adverse Reactions: Allergies Allergy/AdvReac Type Severity Reaction Status Date / Time No Known Allergies Allergy Verified 10/26/18 12:08 - Medications Medications: Current Medications Albuterol/Ipratropium (Duoneb 3 Mg/0.5 Mg (3 Ml) Ud) 3 ml IH RQ4 PRN PRN Reason: Shortness of Breath Arformoterol Tartrate (Brovana) 15 mcg INH RQ12@1000,2200 [facility] Last Admin: 10/28/18 09:12 Dose: 15 mcg Clonazepam (Klonopin) 0.5 mg PO BID [facility] Colchicine (Colocrys) 0.6 mg PO BID [facility] Last Admin: 10/28/18 09:55 Dose: 0.6 mg Dextrose (Dextrose 50% Inj) 0 ml IVP .STAT PRN; Protocol PRN Reason: Hypoglycemia Protocol Dextrose (Glutose 15) 0 gm PO .ONCE PRN; Protocol PRN Reason: Hypoglycemia Protocol Diazepam (Valium) 5 mg PO BID [facility] Last Admin: 10/28/18 09:55 Dose: 5 mg Diltiazem HCl (Cardizem Cd) 180 mg PO DAILY [facility] Last Admin: 10/28/18 09:55 Dose: 180 mg Ergocalciferol (Drisdol 50,000 Intl Units Cap) 1 cap PO Q7D [facility] Last Admin: 10/26/18 19:36 Dose: Not Given Escitalopram Oxalate (Lexapro) 5 mg PO DAILY [facility] Last Admin: 10/28/18 13:25 Dose: 5 mg Famotidine (Pepcid) 20 mg IVP DAILY [facility] Last Admin: 10/28/18 11:45 Dose: 20 mg Ferrous Gluconate (Fergon) 324 mg PO TID [facility] Last Admin: 10/28/18 13:50 Dose: 324 mg Furosemide (Lasix) 20 mg IVP DAILY [facility] Last Admin: 10/28/18 09:56 Dose: 20 mg Glucagon (Glucagen Diagnostic Kit) 0 mg IM .STAT PRN; Protocol PRN Reason: Hypoglycemia Protocol Dextrose (Dextrose 5% In Water 1000 Ml) 1,000 mls @ 0 mls/hr IV .Q0M PRN; Protocol PRN Reason: Hypoglycemia Protocol Piperacillin Sod/Tazobactam Sod (Zosyn 3.375 Gm Iv Premix) 3.375 gm in 50 mls @ 100 mls/hr IVPB Q6H [facility]; Protocol Last Admin: 10/28/18 11:00 Dose: 100 mls/hr Azithromycin 500 mg/ Sodium (Chloride) 250 mls @ 250 mls/hr IVPB DAILY [facility]; Protocol Last Admin: 10/28/18 11:29 Dose: 250 mls/hr Metronidazole (Flagyl) 500 mg in 100 mls @ 100 mls/hr IVPB Q8H [facility]; Protocol Last Admin: 10/28/18 12:52 Dose: 100 mls/hr Insulin Aspart (Novolog) 12 unit SC AC [facility] Last Admin: 10/28/18 12:15 Dose: 12 units Insulin Glargine (Lantus) 24 unit SC HS [facility] Last Admin: 10/27/18 21:27 Dose: 24 u Insulin Human Regular (Novolin R) 0 unit SC ACHS [facility]; Protocol Last Admin: 10/28/18 12:15 Dose: 10 units Levothyroxine Sodium (Synthroid) 100 mcg PO DAILY@0630 [facility] Last Admin: 10/28/18 05:45 Dose: 100 mcg Methylprednisolone (Solu-Medrol) 40 mg IVP Q8H [facility] Last Admin: 10/28/18 09:57 Dose: 40 mg Nystatin (Nystop Topical Powder) 1 applic TOP BID [facility] Last Admin: 10/28/18 09:55 Dose: 1 applic Oxycodone/Acetaminophen (Percocet 5/325 Mg Tab) 1 tab PO Q6H [facility] Stop: 10/30/18 13:31 Last Admin: 10/28/18 13:55 Dose: 1 tab Rivaroxaban (Xarelto) 20 mg PO DAILY [facility] Last Admin: 10/28/18 09:55 Dose: 20 mg Saccharomyces Boulardii (Florastor) 250 mg PO BID [facility] Sertraline HCl (Zoloft) 50 mg PO DAILY [facility] Last Admin: 10/28/18 09:55 Dose: 50 mg Sitagliptin Phosphate (Januvia) 100 mg PO DAILY [facility] Last Admin: 10/28/18 09:54 Dose: 100 mg Trazodone HCl (Desyrel) 50 mg PO HS PRN PRN Reason: Sleep Last Admin: 10/27/18 21:27 Dose: 50 mg Trimethobenzamide HCl (Tigan) 200 mg IM Q8 PRN PRN Reason: Nausea/Vomiting Vitamin B Complex/Vit C/Folic Acid (Nephro-Lavinia) 1 tab PO DAILY [facility] Last Admin: 10/28/18 09:55 Dose: 1 tab Physical Exam - Constitutional Appears: Older Than Stated Age, Chronically Ill - Head Exam Head Exam: NORMOCEPHALIC - Eye Exam Eye Exam: absent: Scleral icterus Pupil Exam: NORMAL ACCOMODATION, PERRL - ENT Exam ENT Exam: Mucous Membranes Dry, Normal External Ear Exam, Normal Oropharynx - Neck Exam Neck exam: Negative for: Lymphadenopathy - Respiratory Exam Respiratory Exam: Decreased Breath Sounds, Prolonged Expiratory Phase, Rhonchi - Cardiovascular Exam Cardiovascular Exam: Tachycardia, REGULAR RHYTHM, +S1, +S2 - GI/Abdominal Exam GI & Abdominal Exam: Diminished Bowel Sounds, Distended, Soft, Tenderness - Rectal Exam Rectal Exam: Deferred - Exam Exam: NORMAL INSPECTION - Extremities Exam Extremities exam: Positive for: pedal edema, pedal pulses present. Negative for: calf tenderness - Back Exam Back exam: absent: CVA tenderness (L), CVA tenderness (R), NORMAL INSPECTION - Neurological Exam Neurological exam: Alert, CN II-XII Intact, Oriented x3, Reflexes Normal - Psychiatric Exam Psychiatric exam: Depressed - Skin Skin Exam: Dry Results - Vital Signs Recent Vital Signs: Last Vital Signs Temp 97.7 F 10/28/18 09:25 Pulse 115 H 10/28/18 12:00 Resp 20 10/28/18 09:25 BP 133/81 10/28/18 09:56 Pulse Ox 95 10/28/18 09:25 - Labs Result Diagrams: 10/29/18 07:32 10/29/18 07:32 Labs: Laboratory Results - last 24 hr 10/27/18 10/27/18 10/27/18 07:07 14:01 16:35 WBC RBC Hgb Hct MCV MCH MCHC RDW Plt Count MPV Neut % (Auto) Lymph % (Auto) Jewell % (Auto) Eos % (Auto) Baso % (Auto) Neut # (Auto) Lymph # (Auto) Jewell # (Auto) Eos # (Auto) Baso # (Auto) Neutrophils % (Manual) Lymphocytes % (Manual) Monocytes % (Manual) Toxic Granulation Platelet Estimate Polychromasia Anisocytosis (manual) Microcytosis (manual) Ovalocytes Puncture Site pCO2 pO2 HCO3 ABG pH ABG Total CO2 ABG O2 Saturation ABG Base Excess Nicholas Test ABG Potassium A-a O2 Difference Respiratory Index Sodium Chloride Glucose Lactate Vent Mode FiO2 Inspiratory BiPAP Expiratory BiPAP Potassium Carbon Dioxide Anion Gap BUN Creatinine Est GFR ( Amer) Est GFR (Non-Af Amer) POC Glucose (mg/dL) 250 H Random Glucose Calcium Phosphorus 2.3 L Magnesium Total Bilirubin AST ALT Alkaline Phosphatase Troponin I NT-Pro-B Natriuret Pep Total Protein Albumin Globulin Albumin/Globulin Ratio Arterial Blood Potassium C. difficile Ag & Toxin Ur L.pneumophila Ag Negative 10/27/18 10/27/18 10/27/18 18:02 21:16 22:14 WBC RBC Hgb Hct MCV MCH MCHC RDW Plt Count MPV Neut % (Auto) Lymph % (Auto) Jewell % (Auto) Eos % (Auto) Baso % (Auto) Neut # (Auto) Lymph # (Auto) Jewell # (Auto) Eos # (Auto) Baso # (Auto) Neutrophils % (Manual) Lymphocytes % (Manual) Monocytes % (Manual) Toxic Granulation Platelet Estimate Polychromasia Anisocytosis (manual) Microcytosis (manual) Ovalocytes Puncture Site pCO2 pO2 HCO3 ABG pH ABG Total CO2 ABG O2 Saturation ABG Base Excess Nicholas Test ABG Potassium A-a O2 Difference Respiratory Index Sodium Chloride Glucose Lactate Vent Mode FiO2 Inspiratory BiPAP Expiratory BiPAP Potassium Carbon Dioxide Anion Gap BUN Creatinine Est GFR ( Amer) Est GFR (Non-Af Amer) POC Glucose (mg/dL) 273 H Random Glucose Calcium Phosphorus Magnesium Total Bilirubin AST ALT Alkaline Phosphatase Troponin I < 0.0120 NT-Pro-B Natriuret Pep Total Protein Albumin Globulin Albumin/Globulin Ratio Arterial Blood Potassium C. difficile Ag & Toxin Positive H Ur L.pneumophila Ag 10/28/18 10/28/18 10/28/18 01:42 02:50 02:50 WBC 10.1 RBC 3.89 Hgb 9.2 L Hct 30.5 L MCV 78.5 L MCH 23.8 L MCHC 30.3 L RDW 21.1 H Plt Count 304 MPV 8.7 Neut % (Auto) 89.4 H Lymph % (Auto) 5.7 L Jewell % (Auto) 4.2 Eos % (Auto) 0.2 Baso % (Auto) 0.5 Neut # (Auto) 9.1 H Lymph # (Auto) 0.6 L Jewell # (Auto) 0.4 Eos # (Auto) 0.0 Baso # (Auto) 0.0 Neutrophils % (Manual) 92 H Lymphocytes % (Manual) 5 L Monocytes % (Manual) 3 Toxic Granulation Present Platelet Estimate Normal Polychromasia Moderate Anisocytosis (manual) Moderate Microcytosis (manual) Slight Ovalocytes Slight Puncture Site Rr pCO2 39 pO2 74 L HCO3 32.1 H ABG pH 7.53 H ABG Total CO2 33.8 H ABG O2 Saturation 99.1 H ABG Base Excess 9.2 H Nicholas Test Pos ABG Potassium 2.9 L A-a O2 Difference 162.0 Respiratory Index 2.2 Sodium 137.0 134 Chloride 99.0 94 L Glucose 365 H Lactate 1.4 Vent Mode Bipap FiO2 40.0 Inspiratory BiPAP 14 Expiratory BiPAP 7 Potassium 3.0 L Carbon Dioxide 31 H Anion Gap 12 BUN 31 H Creatinine 1.0 Est GFR ( Amer) > 60 Est GFR (Non-Af Amer) 56 POC Glucose (mg/dL) Random Glucose 360 H Calcium 8.3 L Phosphorus 2.9 Magnesium 1.5 L Total Bilirubin 0.4 AST 41 H D ALT 89 H Alkaline Phosphatase 130 H Troponin I NT-Pro-B Natriuret Pep Total Protein 5.8 L Albumin 3.3 L Globulin 2.5 Albumin/Globulin Ratio 1.3 Arterial Blood Potassium 2.9 L C. difficile Ag & Toxin Ur L.pneumophila Ag 10/28/18 10/28/18 10/28/18 02:50 06:29 07:26 WBC RBC Hgb Hct MCV MCH MCHC RDW Plt Count MPV Neut % (Auto) Lymph % (Auto) Jewell % (Auto) Eos % (Auto) Baso % (Auto) Neut # (Auto) Lymph # (Auto) Jewell # (Auto) Eos # (Auto) Baso # (Auto) Neutrophils % (Manual) Lymphocytes % (Manual) Monocytes % (Manual) Toxic Granulation Platelet Estimate Polychromasia Anisocytosis (manual) Microcytosis (manual) Ovalocytes Puncture Site pCO2 pO2 HCO3 ABG pH ABG Total CO2 ABG O2 Saturation ABG Base Excess Nicholas Test ABG Potassium A-a O2 Difference Respiratory Index Sodium Chloride Glucose Lactate Vent Mode FiO2 Inspiratory BiPAP Expiratory BiPAP Potassium Carbon Dioxide Anion Gap BUN Creatinine Est GFR ( Amer) Est GFR (Non-Af Amer) POC Glucose (mg/dL) 376 H Random Glucose Calcium Phosphorus Magnesium Total Bilirubin AST ALT Alkaline Phosphatase Troponin I 0.1250 H* NT-Pro-B Natriuret Pep 1620 H Total Protein Albumin Globulin Albumin/Globulin Ratio Arterial Blood Potassium C. difficile Ag & Toxin Ur L.pneumophila Ag 10/28/18 10/28/18 11:37 11:41 WBC RBC Hgb Hct MCV MCH MCHC RDW Plt Count MPV Neut % (Auto) Lymph % (Auto) Jewell % (Auto) Eos % (Auto) Baso % (Auto) Neut # (Auto) Lymph # (Auto) Jewell # (Auto) Eos # (Auto) Baso # (Auto) Neutrophils % (Manual) Lymphocytes % (Manual) Monocytes % (Manual) Toxic Granulation Platelet Estimate Polychromasia Anisocytosis (manual) Microcytosis (manual) Ovalocytes Puncture Site pCO2 pO2 HCO3 ABG pH ABG Total CO2 ABG O2 Saturation ABG Base Excess Nicholas Test ABG Potassium A-a O2 Difference Respiratory Index Sodium Chloride Glucose Lactate Vent Mode FiO2 Inspiratory BiPAP Expiratory BiPAP Potassium Carbon Dioxide Anion Gap BUN Creatinine Est GFR ( Amer) Est GFR (Non-Af Amer) POC Glucose (mg/dL) 428 H* Random Glucose Calcium Phosphorus Magnesium Total Bilirubin AST ALT Alkaline Phosphatase Troponin I 0.1420 H* NT-Pro-B Natriuret Pep Total Protein Albumin Globulin Albumin/Globulin Ratio Arterial Blood Potassium C. difficile Ag & Toxin Ur L.pneumophila Ag Assessment & Plan (1) Chr obstructive pulmonary disease w/ acute lower respiratory infxn Status: Acute (2) Clostridium difficile infection Status: Acute (3) Diabetes mellitus Status: Acute (4) Fibromyalgia Status: Acute (5) History of anemia Status: Acute (6) Pancreatic cancer Status: Acute (7) Pancreatic cancer metastasized to liver Status: Acute (8) Respiratory insufficiency/failure Status: Acute - Assessment and Plan (Free Text) Assessment: chronically colonized with c diff cultures sputum sent IV antibiotics in progress
[2018-10-28 15:07] LABS: BARBITURATES, UR NEGATIVE (NEGATIVE); OPIATES, UR NEGATIVE (NEGATIVE); PHENCYCLIDINE, UR NEGATIVE (NEGATIVE)
[2018-10-28 15:26] LABS: BENZODIAZEPINES, UR POSITIVE (NEGATIVE)
[2018-10-28] MEDS: Saccharomyces Boulardi 250 mg Cap PO SCH (17:07)
--- NOTE | 2018-10-28 20:37 | CP.PCM.CON ---
History of Present Illness - History of Present Illness History of Present Illness: I was asked to evaluate patient by the primary medical team. Patient seen 10/28/18 [id number] Patient is a 63 year old female with metastic pancreatic cancer initally brought to [facility] with altered mental status. She was given Narcan with imrpovement in alertness. Patient was found to be in SVT. Currently DNR/DNI. currently on BiPAP. Stress test last moth was negative for myocardial sichemia. Echocardiogram reveals normal LV function. Review of Systems - Review of Systems Review of Systems: on BiPAP Past Patient History - Infectious Disease Hx of Infectious Diseases: None, C.diff - Past Medical History & Family History Past Medical History?: Yes - Past Social History Smoking Status: Never Smoked - CARDIAC Hx Cardia Arrhythmia: Yes Hx Congestive Heart Failure: Yes Hx Hypercholesterolemia: Yes Hx Hypertension: Yes Hx Pacemaker: No - PULMONARY Hx Asthma: Yes Hx Chronic Obstructive Pulmonary Disease (COPD): Yes Hx Pulmonary Embolism: Yes (on Coumadin W/ IVC filter) - NEUROLOGICAL Hx Neurological Disorder: Yes HX Cerebrovascular Accident: Yes - HEENT Hx HEENT Problems: No - RENAL Hx Chronic Kidney Disease: No - ENDOCRINE/METABOLIC Hx Hypothyroidism: Yes - HEMATOLOGICAL/ONCOLOGICAL Hx Anemia: Yes - INTEGUMENTARY Hx Dermatological Problems: No - MUSCULOSKELETAL/RHEUMATOLOGICAL Hx Arthritis: Yes (R THR /ORIF) Hx Falls: No Hx Fractures: Yes (R HIP) Hx Rheumatoid Arthritis: Yes - GASTROINTESTINAL Hx Gall Bladder Disease: Yes - GENITOURINARY/GYNECOLOGICAL Hx Genitourinary Disorders: Yes Hx Urinary Tract Infection: Yes - PSYCHIATRIC Hx Anxiety: Yes Hx Depression: Yes Hx Substance Use: No - SURGICAL HISTORY Hx Appendectomy: No Hx Cholecystectomy: Yes - ANESTHESIA Hx Anesthesia Reactions: Yes (DIFFICULTY BREATHING) Meds Allergies/Adverse Reactions: Allergies Allergy/AdvReac Type Severity Reaction Status Date / Time No Known Allergies Allergy Verified 10/26/18 12:08 - Medications Medications: Current Medications Albuterol/Ipratropium (Duoneb 3 Mg/0.5 Mg (3 Ml) Ud) 3 ml IH RQ4 PRN PRN Reason: Shortness of Breath Arformoterol Tartrate (Brovana) 15 mcg INH RQ12@1000,2200 [facility] Last Admin: 10/28/18 09:12 Dose: 15 mcg Clonazepam (Klonopin) 0.5 mg PO BID [facility] Last Admin: 10/28/18 17:07 Dose: 0.5 mg Colchicine (Colocrys) 0.6 mg PO BID [facility] Last Admin: 10/28/18 17:07 Dose: 0.6 mg Dextrose (Dextrose 50% Inj) 0 ml IVP .STAT PRN; Protocol PRN Reason: Hypoglycemia Protocol Dextrose (Glutose 15) 0 gm PO .ONCE PRN; Protocol PRN Reason: Hypoglycemia Protocol Diazepam (Valium) 5 mg PO BID [facility] Last Admin: 10/28/18 17:06 Dose: 5 mg Diltiazem HCl (Cardizem Cd) 180 mg PO DAILY [facility] Last Admin: 10/28/18 09:55 Dose: 180 mg Ergocalciferol (Drisdol 50,000 Intl Units Cap) 1 cap PO Q7D [facility] Last Admin: 10/26/18 19:36 Dose: Not Given Escitalopram Oxalate (Lexapro) 5 mg PO DAILY [facility] Last Admin: 10/28/18 13:25 Dose: 5 mg Famotidine (Pepcid) 20 mg IVP DAILY [facility] Last Admin: 10/28/18 11:45 Dose: 20 mg Ferrous Gluconate (Fergon) 324 mg PO TID [facility] Last Admin: 10/28/18 17:07 Dose: 324 mg Furosemide (Lasix) 20 mg IVP DAILY [facility] Last Admin: 10/28/18 09:56 Dose: 20 mg Glucagon (Glucagen Diagnostic Kit) 0 mg IM .STAT PRN; Protocol PRN Reason: Hypoglycemia Protocol Dextrose (Dextrose 5% In Water 1000 Ml) 1,000 mls @ 0 mls/hr IV .Q0M PRN; Protocol PRN Reason: Hypoglycemia Protocol Piperacillin Sod/Tazobactam Sod (Zosyn 3.375 Gm Iv Premix) 3.375 gm in 50 mls @ 100 mls/hr IVPB Q6H [facility]; Protocol Last Admin: 10/28/18 16:00 Dose: 100 mls/hr Azithromycin 500 mg/ Sodium (Chloride) 250 mls @ 250 mls/hr IVPB DAILY [facility]; Protocol Last Admin: 10/28/18 11:29 Dose: 250 mls/hr Metronidazole (Flagyl) 500 mg in 100 mls @ 100 mls/hr IVPB Q8H [facility]; Protocol Last Admin: 10/28/18 19:56 Dose: 100 mls/hr Insulin Aspart (Novolog) 12 unit SC AC [facility] Last Admin: 10/28/18 17:07 Dose: 12 units Insulin Glargine (Lantus) 24 unit SC HS [facility] Last Admin: 10/27/18 21:27 Dose: 24 u Insulin Human Regular (Novolin R) 0 unit SC ACHS [facility]; Protocol Last Admin: 10/28/18 17:08 Dose: 10 units Levothyroxine Sodium (Synthroid) 100 mcg PO DAILY@0630 [facility] Last Admin: 10/28/18 05:45 Dose: 100 mcg Methylprednisolone (Solu-Medrol) 40 mg IVP Q8H [facility] Last Admin: 10/28/18 18:56 Dose: 40 mg Nystatin (Nystop Topical Powder) 1 applic TOP BID [facility] Last Admin: 10/28/18 17:10 Dose: 1 applic Oxycodone/Acetaminophen (Percocet 5/325 Mg Tab) 1 tab PO Q6H [facility] Stop: 10/30/18 13:31 Last Admin: 10/28/18 19:01 Dose: 1 tab Rivaroxaban (Xarelto) 20 mg PO DAILY [facility] Last Admin: 10/28/18 09:55 Dose: 20 mg Saccharomyces Boulardii (Florastor) 250 mg PO BID [facility] Last Admin: 10/28/18 17:07 Dose: 250 mg Sertraline HCl (Zoloft) 50 mg PO DAILY [facility] Last Admin: 10/28/18 09:55 Dose: 50 mg Sitagliptin Phosphate (Januvia) 100 mg PO DAILY [facility] Last Admin: 10/28/18 09:54 Dose: 100 mg Trazodone HCl (Desyrel) 50 mg PO HS PRN PRN Reason: Sleep Last Admin: 10/27/18 21:27 Dose: 50 mg Trimethobenzamide HCl (Tigan) 200 mg IM Q8 PRN PRN Reason: Nausea/Vomiting Vitamin B Complex/Vit C/Folic Acid (Nephro-Lavinia) 1 tab PO DAILY [facility] Last Admin: 10/28/18 09:55 Dose: 1 tab Physical Exam - Constitutional Appears: Chronically Ill - Head Exam Head Exam: NORMAL INSPECTION - Eye Exam Eye Exam: Normal appearance - ENT Exam ENT Exam: Mucous Membranes Moist - Neck Exam Neck exam: Positive for: Normal Inspection - Respiratory Exam Respiratory Exam: Decreased Breath Sounds - Cardiovascular Exam Cardiovascular Exam: Tachycardia, REGULAR RHYTHM - GI/Abdominal Exam GI & Abdominal Exam: Normal Bowel Sounds - Rectal Exam Rectal Exam: Deferred - Extremities Exam Extremities exam: Positive for: pedal edema - Back Exam Back exam: NORMAL INSPECTION - Skin Skin Exam: Normal Color Results - Vital Signs Recent Vital Signs: Last Vital Signs Temp 97.9 F 10/28/18 15:30 Pulse 119 H 10/28/18 20:00 Resp 22 10/28/18 15:30 BP 127/79 10/28/18 15:30 Pulse Ox 95 10/28/18 15:30 - Labs Result Diagrams: 10/28/18 02:50 10/28/18 02:50 Labs: Laboratory Results - last 24 hr 10/27/18 10/27/18 10/27/18 14:01 21:16 22:14 WBC RBC Hgb Hct MCV MCH MCHC RDW Plt Count MPV Neut % (Auto) Lymph % (Auto) [place] % (Auto) Eos % (Auto) Baso % (Auto) Neut # (Auto) Lymph # (Auto) [place] # (Auto) Eos # (Auto) Baso # (Auto) Neutrophils % (Manual) Lymphocytes % (Manual) Monocytes % (Manual) Toxic Granulation Platelet Estimate Polychromasia Anisocytosis (manual) Microcytosis (manual) Ovalocytes Puncture Site pCO2 pO2 HCO3 ABG pH ABG Total CO2 ABG O2 Saturation ABG Base Excess Nicholas Test ABG Potassium A-a O2 Difference Respiratory Index Sodium Chloride Glucose Lactate Vent Mode FiO2 Inspiratory BiPAP Expiratory BiPAP Potassium Carbon Dioxide Anion Gap BUN Creatinine Est GFR ( Amer) Est GFR (Non-Af Amer) POC Glucose (mg/dL) 273 H Random Glucose Calcium Phosphorus 2.3 L Magnesium Total Bilirubin AST ALT Alkaline Phosphatase Troponin I < 0.0120 NT-Pro-B Natriuret Pep Total Protein Albumin Globulin Albumin/Globulin Ratio Arterial Blood Potassium Urine Opiates Screen Urine Methadone Screen Ur Barbiturates Screen Ur Phencyclidine Scrn Ur Amphetamines Screen U Benzodiazepines Scrn U Oth Cocaine Metabols U Cannabinoids Screen 10/28/18 10/28/18 10/28/18 01:42 02:50 02:50 WBC 10.1 RBC 3.89 Hgb 9.2 L Hct 30.5 L MCV 78.5 L MCH 23.8 L MCHC 30.3 L RDW 21.1 H Plt Count 304 MPV 8.7 Neut % (Auto) 89.4 H Lymph % (Auto) 5.7 L [place] % (Auto) 4.2 Eos % (Auto) 0.2 Baso % (Auto) 0.5 Neut # (Auto) 9.1 H Lymph # (Auto) 0.6 L [place] # (Auto) 0.4 Eos # (Auto) 0.0 Baso # (Auto) 0.0 Neutrophils % (Manual) 92 H Lymphocytes % (Manual) 5 L Monocytes % (Manual) 3 Toxic Granulation Present Platelet Estimate Normal Polychromasia Moderate Anisocytosis (manual) Moderate Microcytosis (manual) Slight Ovalocytes Slight Puncture Site Rr pCO2 39 pO2 74 L HCO3 32.1 H ABG pH 7.53 H ABG Total CO2 33.8 H ABG O2 Saturation 99.1 H ABG Base Excess 9.2 H Nicholas Test Pos ABG Potassium 2.9 L A-a O2 Difference 162.0 Respiratory Index 2.2 Sodium 137.0 134 Chloride 99.0 94 L Glucose 365 H Lactate 1.4 Vent Mode Bipap FiO2 40.0 Inspiratory BiPAP 14 Expiratory BiPAP 7 Potassium 3.0 L Carbon Dioxide 31 H Anion Gap 12 BUN 31 H Creatinine 1.0 Est GFR ( Amer) > 60 Est GFR (Non-Af Amer) 56 POC Glucose (mg/dL) Random Glucose 360 H Calcium 8.3 L Phosphorus 2.9 Magnesium 1.5 L Total Bilirubin 0.4 AST 41 H D ALT 89 H Alkaline Phosphatase 130 H Troponin I NT-Pro-B Natriuret Pep Total Protein 5.8 L Albumin 3.3 L Globulin 2.5 Albumin/Globulin Ratio 1.3 Arterial Blood Potassium 2.9 L Urine Opiates Screen Urine Methadone Screen Ur Barbiturates Screen Ur Phencyclidine Scrn Ur Amphetamines Screen U Benzodiazepines Scrn U Oth Cocaine Metabols U Cannabinoids Screen 10/28/18 10/28/18 10/28/18 02:50 06:29 07:26 WBC RBC Hgb Hct MCV MCH MCHC RDW Plt Count MPV Neut % (Auto) Lymph % (Auto) [place] % (Auto) Eos % (Auto) Baso % (Auto) Neut # (Auto) Lymph # (Auto) [place] # (Auto) Eos # (Auto) Baso # (Auto) Neutrophils % (Manual) Lymphocytes % (Manual) Monocytes % (Manual) Toxic Granulation Platelet Estimate Polychromasia Anisocytosis (manual) Microcytosis (manual) Ovalocytes Puncture Site pCO2 pO2 HCO3 ABG pH ABG Total CO2 ABG O2 Saturation ABG Base Excess Nicholas Test ABG Potassium A-a O2 Difference Respiratory Index Sodium Chloride Glucose Lactate Vent Mode FiO2 Inspiratory BiPAP Expiratory BiPAP Potassium Carbon Dioxide Anion Gap BUN Creatinine Est GFR ( Amer) Est GFR (Non-Af Amer) POC Glucose (mg/dL) 376 H Random Glucose Calcium Phosphorus Magnesium Total Bilirubin AST ALT Alkaline Phosphatase Troponin I 0.1250 H* NT-Pro-B Natriuret Pep 1620 H Total Protein Albumin Globulin Albumin/Globulin Ratio Arterial Blood Potassium Urine Opiates Screen Urine Methadone Screen Ur Barbiturates Screen Ur Phencyclidine Scrn Ur Amphetamines Screen U Benzodiazepines Scrn U Oth Cocaine Metabols U Cannabinoids Screen 10/28/18 10/28/18 10/28/18 11:37 11:41 14:23 WBC RBC Hgb Hct MCV MCH MCHC RDW Plt Count MPV Neut % (Auto) Lymph % (Auto) [place] % (Auto) Eos % (Auto) Baso % (Auto) Neut # (Auto) Lymph # (Auto) [place] # (Auto) Eos # (Auto) Baso # (Auto) Neutrophils % (Manual) Lymphocytes % (Manual) Monocytes % (Manual) Toxic Granulation Platelet Estimate Polychromasia Anisocytosis (manual) Microcytosis (manual) Ovalocytes Puncture Site pCO2 pO2 HCO3 ABG pH ABG Total CO2 ABG O2 Saturation ABG Base Excess Nicholas Test ABG Potassium A-a O2 Difference Respiratory Index Sodium Chloride Glucose Lactate Vent Mode FiO2 Inspiratory BiPAP Expiratory BiPAP Potassium Carbon Dioxide Anion Gap BUN Creatinine Est GFR ( Amer) Est GFR (Non-Af Amer) POC Glucose (mg/dL) 428 H* Random Glucose Calcium Phosphorus Magnesium Total Bilirubin AST ALT Alkaline Phosphatase Troponin I 0.1420 H* NT-Pro-B Natriuret Pep Total Protein Albumin Globulin Albumin/Globulin Ratio Arterial Blood Potassium Urine Opiates Screen Negative Urine Methadone Screen Negative Ur Barbiturates Screen Negative Ur Phencyclidine Scrn Negative Ur Amphetamines Screen Negative U Benzodiazepines Scrn Positive U Oth Cocaine Metabols Negative U Cannabinoids Screen Negative 10/28/18 16:46 WBC RBC Hgb Hct MCV MCH MCHC RDW Plt Count MPV Neut % (Auto) Lymph % (Auto) [place] % (Auto) Eos % (Auto) Baso % (Auto) Neut # (Auto) Lymph # (Auto) [place] # (Auto) Eos # (Auto) Baso # (Auto) Neutrophils % (Manual) Lymphocytes % (Manual) Monocytes % (Manual) Toxic Granulation Platelet Estimate Polychromasia Anisocytosis (manual) Microcytosis (manual) Ovalocytes Puncture Site pCO2 pO2 HCO3 ABG pH ABG Total CO2 ABG O2 Saturation ABG Base Excess Nicholas Test ABG Potassium A-a O2 Difference Respiratory Index Sodium Chloride Glucose Lactate Vent Mode FiO2 Inspiratory BiPAP Expiratory BiPAP Potassium Carbon Dioxide Anion Gap BUN Creatinine Est GFR ( Amer) Est GFR (Non-Af Amer) POC Glucose (mg/dL) 368 H Random Glucose Calcium Phosphorus Magnesium Total Bilirubin AST ALT Alkaline Phosphatase Troponin I NT-Pro-B Natriuret Pep Total Protein Albumin Globulin Albumin/Globulin Ratio Arterial Blood Potassium Urine Opiates Screen Urine Methadone Screen Ur Barbiturates Screen Ur Phencyclidine Scrn Ur Amphetamines Screen U Benzodiazepines Scrn U Oth Cocaine Metabols U Cannabinoids Screen - EKG Data EKG Interpreted by: Myself Rate: Tachycardia Assessment & Plan (1) SVT (supraventricular tachycardia) Assessment and Plan: recommend increased cardizem. medical therapy. not a candidate for invasive procedures Status: Chronic Priority: High (2) HTN (hypertension) Assessment and Plan: increase cardizem Status: Chronic Priority: Medium (3) History of DVT (deep vein thrombosis) Assessment and Plan: anticoagulant therapy Status: Chronic
[2018-10-28] MEDS: (Lantus) Insulin Glargine, Recombinant SC SCH (21:58)
[2018-10-29] MEDS: Oxycodone/Acetaminophen 5/325 mg Tab PO SCH ×4 (01:47→19:34)
[2018-10-29] MEDS: MethylPREDNISolone 40 mg Vial IVP SCH ×3 (01:49→21:45)
[2018-10-29] MEDS: Piperacill/Tazo 3.375gm in Dex 3.375 GM/50 ML BAG IVPB SCH ×4 (03:47→21:46)
[2018-10-29] MEDS: metroNIDAZOLE IV 500 mg/100 ml 500 MG/100 ML BAG IVPB SCH ×3 (04:32→19:34)
[2018-10-29] MEDS: Levothyroxine 100 MCG TAB PO SCH (06:41)
[2018-10-29 08:08] LABS: ALB/GLOB RATIO 1.4 (1.0-2.1); ALT/SGPT 89 U/L (9-52); AST/SGOT 41 U/L (14-36); BLOOD UREA NITROGEN 35 mg/dL (7-17); CALCIUM 8.5 mg/dl (8.6-10.4); GFR NON-AFRICAN AMERICAN 56
[2018-10-29 08:16] LABS: BASO # 0.1 K/uL (0.0-0.2); BASO % 0.7 % (0.0-2.0); EOS % 0.1 % (0.0-4.0); LYMPH # 0.6 K/uL (1.0-4.3); LYMPH % 6.9 % (20.0-40.0); MEAN CELL VOLUME 78.8 fL (81.0-99.0); MEAN CORPUSCULAR HEMOGLOBIN 24.6 pg (27.0-31.0); MEAN CORPUSCULAR HGB CONC 31.2 g/dL (33.0-37.0); MEAN PLATELET VOLUME 8.7 fL (7.2-11.7); MONO # 0.4 K/uL (0.0-0.8); MONO % 4.2 % (0.0-10.0); NEUT # 8.3 K/uL (1.8-7.0); NEUT % 88.1 % (50.0-75.0); NRBC % 0.2 % (0.0-2.0); PLATELET COUNT 291 K/uL (130-400); RBC 3.67 Mil/uL (3.80-5.20); RED CELL DISTRIBUTION WIDTH 20.9 % (11.5-14.5); WHITE BLOOD COUNT 9.4 K/uL (4.8-10.8)
[2018-10-29] MEDS: (Novolog) Insulin Aspart, Recombinant 100 u/ml 10 ml vial SC SCH ×3 (08:21→17:18)
[2018-10-29] MEDS: (Novolin R) Insulin Human Regular 100 units/ml vial SC SCH ×4 (08:22→21:46)
--- NOTE | 2018-10-29 08:51 | CP.PCM.PN ---
Subjective - Date & Time of Evaluation Date of Evaluation: 10/29/18 Time of Evaluation: 08:20 - Subjective Subjective: Patient seen and examined Able to breathe without BiPAP Awake and responsive Denies any complaints Afebrile Objective - Vital Signs/Intake and Output Vital Signs (last 24 hours): Temp Pulse Resp BP Pulse Ox 97.8 F 99 H 20 138/79 96 10/29/18 07:00 10/29/18 07:17 10/29/18 07:00 10/29/18 07:00 10/29/18 07:00 Intake and Output: 10/29/18 10/29/18 06:59 18:59 Intake Total 940 Output Total 1350 Balance -410 - Medications Medications: Current Medications Albuterol/Ipratropium (Duoneb 3 Mg/0.5 Mg (3 Ml) Ud) 3 ml IH RQ4 PRN PRN Reason: Shortness of Breath Arformoterol Tartrate (Brovana) 15 mcg INH RQ12@1000,2200 [facility] Last Admin: 10/28/18 21:00 Dose: 15 mcg Clonazepam (Klonopin) 0.5 mg PO BID [facility] Last Admin: 10/28/18 17:07 Dose: 0.5 mg Colchicine (Colocrys) 0.6 mg PO BID [facility] Last Admin: 10/28/18 17:07 Dose: 0.6 mg Dextrose (Dextrose 50% Inj) 0 ml IVP .STAT PRN; Protocol PRN Reason: Hypoglycemia Protocol Dextrose (Glutose 15) 0 gm PO .ONCE PRN; Protocol PRN Reason: Hypoglycemia Protocol Diazepam (Valium) 5 mg PO BID [facility] Last Admin: 10/28/18 17:06 Dose: 5 mg Diltiazem HCl (Cardizem Cd) 180 mg PO BID [facility] Ergocalciferol (Drisdol 50,000 Intl Units Cap) 1 cap PO Q7D [facility] Last Admin: 10/26/18 19:36 Dose: Not Given Escitalopram Oxalate (Lexapro) 5 mg PO DAILY [facility] Last Admin: 10/28/18 13:25 Dose: 5 mg Famotidine (Pepcid) 20 mg IVP DAILY [facility] Last Admin: 10/28/18 11:45 Dose: 20 mg Ferrous Gluconate (Fergon) 324 mg PO TID [facility] Last Admin: 10/28/18 17:07 Dose: 324 mg Furosemide (Lasix) 20 mg IVP DAILY [facility] Last Admin: 10/28/18 09:56 Dose: 20 mg Glucagon (Glucagen Diagnostic Kit) 0 mg IM .STAT PRN; Protocol PRN Reason: Hypoglycemia Protocol Dextrose (Dextrose 5% In Water 1000 Ml) 1,000 mls @ 0 mls/hr IV .Q0M PRN; Pro tocol PRN Reason: Hypoglycemia Protocol Piperacillin Sod/Tazobactam Sod (Zosyn 3.375 Gm Iv Premix) 3.375 gm in 50 mls @ 100 mls/hr IVPB Q6H [facility]; Protocol Last Admin: 10/29/18 03:47 Dose: 100 mls/hr Azithromycin 500 mg/ Sodium (Chloride) 250 mls @ 250 mls/hr IVPB DAILY [facility]; Protocol Last Admin: 10/28/18 11:29 Dose: 250 mls/hr Metronidazole (Flagyl) 500 mg in 100 mls @ 100 mls/hr IVPB Q8H [facility]; Protocol Last Admin: 10/29/18 04:32 Dose: 100 mls/hr Insulin Aspart (Novolog) 12 unit SC AC [facility] Last Admin: 10/29/18 08:21 Dose: 12 units Insulin Glargine (Lantus) 24 unit SC HS [facility] Last Admin: 10/28/18 21:58 Dose: 24 u Insulin Human Regular (Novolin R) 0 unit SC ACHS [facility]; Protocol Last Admin: 10/29/18 08:22 Dose: 8 units Levothyroxine Sodium (Synthroid) 100 mcg PO DAILY@0630 [facility] Last Admin: 10/29/18 06:41 Dose: 100 mcg Methylprednisolone (Solu-Medrol) 40 mg IVP Q8H [facility] Last Admin: 10/29/18 01:49 Dose: 40 mg Nystatin (Nystop Topical Powder) 1 applic TOP BID [facility] Last Admin: 10/28/18 17:10 Dose: 1 applic Oxycodone/Acetaminophen (Percocet 5/325 Mg Tab) 1 tab PO Q6H [facility] Stop: 10/30/18 13:31 Last Admin: 10/29/18 08:22 Dose: 1 tab Rivaroxaban (Xarelto) 20 mg PO DAILY [facility] Last Admin: 10/28/18 09:55 Dose: 20 mg Saccharomyces Boulardii (Florastor) 250 mg PO BID [facility] Last Admin: 10/28/18 17:07 Dose: 250 mg Sertraline HCl (Zoloft) 50 mg PO DAILY [facility] Last Admin: 10/28/18 09:55 Dose: 50 mg Sitagliptin Phosphate (Januvia) 100 mg PO DAILY [facility] Last Admin: 10/28/18 09:54 Dose: 100 mg Trazodone HCl (Desyrel) 50 mg PO HS PRN PRN Reason: Sleep Last Admin: 10/28/18 21:58 Dose: 50 mg Trimethobenzamide HCl (Tigan) 200 mg IM Q8 PRN PRN Reason: Nausea/Vomiting Vitamin B Complex/Vit C/Folic Acid (Nephro-Lavinia) 1 tab PO DAILY [facility] Last Admin: 10/28/18 09:55 Dose: 1 tab - Labs Labs: 10/29/18 07:32 10/29/18 07:32 PT 16.2 SECONDS (9.7-12.2) H 10/26/18 13:10 INR 1.5 10/26/18 13:10 APTT 29.0 SECONDS (21-34) 10/26/18 13:10 - Head Exam Head Exam: ATRAUMATIC, NORMOCEPHALIC - ENT Exam ENT Exam: Mucous Membranes Moist - Respiratory Exam Respiratory Exam: Decreased Breath Sounds - Cardiovascular Exam Cardiovascular Exam: REGULAR RHYTHM - GI/Abdominal Exam GI & Abdominal Exam: Soft - Extremities Exam Extremities Exam: Pedal Edema Assessment and Plan (1) Chr obstructive pulmonary disease w/ acute lower respiratory infxn Assessment & Plan: Continue antibiotics Start tapering steroids BiPAP as needed Follow-up chest x-ray Patient DNR/DNI Status: Acute (2) Pancreatic cancer metastasized to liver Status: Acute (3) Respiratory insufficiency/failure Status: Acute
[2018-10-29] MEDS: Multivitamin Vitamin B Complex (Nephro-Vite) Tab PO SCH (09:15)
[2018-10-29] MEDS: Saccharomyces Boulardi 250 mg Cap PO SCH ×2 (09:15→17:19)
[2018-10-29] MEDS: diltiaZEM 180 mg/24 Hours CD Cap PO SCH ×2 (09:15→17:20)
[2018-10-29] MEDS: Azithromycin 500 MG in Sodium Chloride 0.9% 250 ML IVPB SCH (09:43)
[2018-10-29] MEDS: Arformoterol 15 mcg/2 ml Inh Sol INH SCH ×2 (09:56→20:17)
--- NOTE | 2018-10-29 10:47 | CARD ---
APPROVED REPORT Date of service: 10/27/2018 EKG Measurement Heart [id number] <Conclusion> Supraventricular tachycardia Nonspecific ST and T wave abnormality Abnormal ECG
[2018-10-29] MEDS: Aritificial Tears (15ml) OU SCH ×2 (10:58→17:20)
--- NOTE | 2018-10-29 11:04 | CP.PCM.PN ---
Subjective - Date & Time of Evaluation Date of Evaluation: 10/29/18 Time of Evaluation: 10:56 - Subjective Subjective: PGY3 progress note for hospitalists (covering for Dr. Gutierres) Pt seen and examined at bedside. No acute events overnight. Pt states SOB has improved. Denies having any CP, abd pain, V/D/C, F/C. Only C/O mild nausea. Tolerating diet. Objective - Vital Signs/Intake and Output Vital Signs (last 24 hours): Temp Pulse Resp BP Pulse Ox 97.8 F 107 H 20 132/84 96 10/29/18 07:00 10/29/18 07:57 10/29/18 07:00 10/29/18 09:16 10/29/18 07:00 Intake and Output: 10/29/18 10/29/18 06:59 18:59 Intake Total 940 Output Total 1350 Balance -410 - Medications Medications: Current Medications Albuterol/Ipratropium (Duoneb 3 Mg/0.5 Mg (3 Ml) Ud) 3 ml IH RQ4 PRN PRN Reason: Shortness of Breath Arformoterol Tartrate (Brovana) 15 mcg INH RQ12@1000,2200 [facility] Last Admin: 10/29/18 09:56 Dose: 15 mcg Artificial Tears (Artificial Tears) 1 ml OU BID [facility] Clonazepam (Klonopin) 0.5 mg PO BID [facility] Last Admin: 10/29/18 09:15 Dose: 0.5 mg Colchicine (Colocrys) 0.6 mg PO BID [facility] Last Admin: 10/29/18 09:16 Dose: 0.6 mg Dextrose (Dextrose 50% Inj) 0 ml IVP .STAT PRN; Protocol PRN Reason: Hypoglycemia Protocol Dextrose (Glutose 15) 0 gm PO .ONCE PRN; Protocol PRN Reason: Hypoglycemia Protocol Diazepam (Valium) 5 mg PO BID [facility] Last Admin: 10/29/18 09:15 Dose: 5 mg Diltiazem HCl (Cardizem Cd) 180 mg PO BID [facility] Last Admin: 10/29/18 09:15 Dose: 180 mg Ergocalciferol (Drisdol 50,000 Intl Units Cap) 1 cap PO Q7D [facility] Last Admin: 10/26/18 19:36 Dose: Not Given Escitalopram Oxalate (Lexapro) 5 mg PO DAILY [facility] Last Admin: 10/29/18 09:15 Dose: 5 mg Famotidine (Pepcid) 20 mg IVP DAILY [facility] Last Admin: 10/29/18 09:16 Dose: 20 mg Ferrous Gluconate (Fergon) 324 mg PO TID [facility] Last Admin: 10/29/18 09:15 Dose: 324 mg Furosemide (Lasix) 20 mg IVP DAILY [facility] Last Admin: 10/29/18 09:16 Dose: 20 mg Glucagon (Glucagen Diagnostic Kit) 0 mg IM .STAT PRN; Protocol PRN Reason: Hypoglycemia Protocol Dextrose (Dextrose 5% In Water 1000 Ml) 1,000 mls @ 0 mls/hr IV .Q0M PRN; Protocol PRN Reason: Hypoglycemia Protocol Piperacillin Sod/Tazobactam Sod (Zosyn 3.375 Gm Iv Premix) 3.375 gm in 50 mls @ 100 mls/hr IVPB Q6H [facility]; Protocol Last Admin: 10/29/18 09:16 Dose: 100 mls/hr Azithromycin 500 mg/ Sodium (Chloride) 250 mls @ 250 mls/hr IVPB DAILY [facility]; Protocol Last Admin: 10/29/18 09:43 Dose: 250 mls/hr Metronidazole (Flagyl) 500 mg in 100 mls @ 100 mls/hr IVPB Q8H [facility]; Protocol Last Admin: 10/29/18 04:32 Dose: 100 mls/hr Insulin Aspart (Novolog) 12 unit SC AC [facility] Last Admin: 10/29/18 08:21 Dose: 12 units Insulin Glargine (Lantus) 24 unit SC HS [facility] Last Admin: 10/28/18 21:58 Dose: 24 u Insulin Human Regular (Novolin R) 0 unit SC ACHS [facility]; Protocol Last Admin: 10/29/18 08:22 Dose: 8 units Levothyroxine Sodium (Synthroid) 100 mcg PO DAILY@0630 [facility] Last Admin: 10/29/18 06:41 Dose: 100 mcg Methylprednisolone (Solu-Medrol) 40 mg IVP Q12H [facility] Nystatin (Nystop Topical Powder) 1 applic TOP BID [facility] Last Admin: 10/29/18 09:16 Dose: 1 applic Oxycodone/Acetaminophen (Percocet 5/325 Mg Tab) 1 tab PO Q6H [facility] Stop: 10/30/18 13:31 Last Admin: 10/29/18 08:22 Dose: 1 tab Rivaroxaban (Xarelto) 20 mg PO DAILY [facility] Last Admin: 10/29/18 09:16 Dose: 20 mg Saccharomyces Boulardii (Florastor) 250 mg PO BID [facility] Last Admin: 10/29/18 09:15 Dose: 250 mg Sertraline HCl (Zoloft) 50 mg PO DAILY [facility] Last Admin: 10/29/18 09:17 Dose: 50 mg Sitagliptin Phosphate (Januvia) 100 mg PO DAILY [facility] Last Admin: 10/29/18 09:18 Dose: 100 mg Trazodone HCl (Desyrel) 50 mg PO HS PRN PRN Reason: Sleep Last Admin: 10/28/18 21:58 Dose: 50 mg Trimethobenzamide HCl (Tigan) 200 mg IM Q8 PRN PRN Reason: Nausea/Vomiting Vitamin B Complex/Vit C/Folic Acid (Nephro-Lavinia) 1 tab PO DAILY [facility] Last Admin: 10/29/18 09:15 Dose: 1 tab - Labs Labs: 10/29/18 07:32 10/29/18 07:32 PT 16.2 SECONDS (9.7-12.2) H 10/26/18 13:10 INR 1.5 10/26/18 13:10 APTT 29.0 SECONDS (21-34) 10/26/18 13:10 - Constitutional Appears: Non-toxic, No Acute Distress - Head Exam Head Exam: ATRAUMATIC, NORMOCEPHALIC - ENT Exam ENT Exam: Mucous Membranes Moist - Respiratory Exam Respiratory Exam: Clear to Ausculation Bilateral. absent: Rales, Rhonchi, Wheezes, Respiratory Distress - Cardiovascular Exam Cardiovascular Exam: REGULAR RHYTHM, +S1, +S2. absent: Gallop, Rubs, Murmur - GI/Abdominal Exam GI & Abdominal Exam: Soft, Normal Bowel Sounds. absent: Distended, Firm, Guarding, Rigid, Tenderness - Extremities Exam Extremities Exam: Pedal Edema, Tenderness - Neurological Exam Neurological Exam: Alert, Awake, Oriented x3 - Psychiatric Exam Psychiatric exam: Normal Affect, Normal Mood - Skin Skin Exam: Dry, Intact, Normal Color, Warm Assessment and Plan - Assessment and Plan (Free Text) Assessment: (1) Sepsis Secondary to healthcare acquired pneumonia Consultation: - CORTEZ, Dr. Little---> help appreciated - PulmDr. Contean consulted Labs/Vitals: - Blood and urine cultures negative Imaging: Chest CT without contrast: Worsening airspace consolidative changes seen in the bilateral lower lobes; left greater than right. This may be the sequelae of acute infectious changes. Clinical correlation. Post treatment interval Medications: - Vancomycin 1gm IV daily (Received 2 doses- 10/26 & 10/27) - Azithromycin 500mg IVPB daily (stared 10/27/18) - Florastor 250mg PO BID (2) SVT (supraventricular tachycardia) Consultation: * [employer], Dr. Pineda---> Help appreciated History of Tachycardia * DIRECTOR OF ACCOUNTS PAYABLE at 11:00pm 10/27/18 for episode of SVT * Cardizem 180mg PO daily (3) Elevated troponin Consultation: * [employer] League Baseball PlayerDr. Pineda---> Help appreciated * No ST changes * No intervention at this point. Medical management (4) Clostridium difficile infection Consultation: Dr. Anabel TORO---> help appreciated Labs: C-difficle toxin (10/27/18): Positive * This was checked [facility] Initial ova/parasite cultures negative. will repeat 2 more times Medications: * Flagyl 500mg IV Q8H (Initiated 10/28/18) * Zosyn 3.375gm IV Q6H ( Initiated 10/26/18) * Florastor 250mg PO BID As per nursing, patient has not had an episode of diarrhea on her shift for the past 2 days (5) Pancreatic cancer metastasized to liver Procedure (10/11/18): Findings: Metastasis to the liver, grossly single nodule. Cystic lesion and harden pancreas. - Pathology: Adenocarcinoma, favor pancreatico-Biliary Labs and imaging: - CEA: 42.5, CA19-9: 1980, CA125: 36.2 - Abdomen/Pelvic CT: Heterogeneous hyperdense pancreatic mass measuring approximately 2.7 x 2.5 cm at the pancreatic body/tail. Ectatic dilated pancreatic duct. Additional cystic heterogeneous focus measuring approximately 15 x 14 mm is noted at the superior aspect of the pancreas. Appearance worrisome for malignant neoplasm. Wall thickening involving the 2nd portion of the duodenum of uncertain significance; considerations include infectious, inflammatory, or malignant etiologies. Correlate clinically and recommend further evaluation with direct visualization if indicated. Small pelvic free fluid (6) CHF (congestive heart failure) on admission: - BNP:1620 Imaging: - Chest X-ray (10/26/18): Findings are concerning for developing congestive heart failure Medication: - Lasix 20mg IV daily (7) Diabetes mellitus HgbA1C (09/07/18): 9.0 Accuchecks ISS- High dose Novolog 12 units AC Lantus 24units SC HS Glipizide 10mg PO BID Januvia 100mg PO daily Hypoglycemia protocol (8) Hypothyroid - TSH/Free T4 (09/07/18): 9.5/0.30 - Continue Synthroid 100mcg PO daily (9) History of DVT (deep vein thrombosis) - Continue Xarelto 20mg PO daily (10) Gout Colchicine 0.6mg PO BID (11) Chronic obstructive pulmonary disease w/ acute lower respiratory infxn Consultation: * Pulmonology, Dr. Dickerson. Per recs will taper down steroids Imaging: Chest CT without contrast: Worsening airspace consolidative changes seen in the bilateral lower lobes; left greater than right. This may be the sequelae of acute infectious changes. Clinical correlation. Post treatment interval Medications: -Azithromycin 500mg IVPB daily (stared 10/27/18) -Duoneb 3ml IH RQ4 PRN for shortness of breath - Brovana 15mcg INH RQ12H - Solumedrol 40mg IVP changed to Q12 - BiPAP continuos - Florastor 250mg PO BID (12) History of anemia H/H stable - Fergon 324mg PO TID (13) Ulcer Sacral; stage 2 Wound care consult - Recommendation for use of hydrogen peroxide - Turn Q2H (14) Intertrigo -Started Nystatin Powder BID (15) Psychiatric disturbance Depression and anxiety Consultation * Psychiatry, Dr. Dexter----> Help appreciated Medications: * Clonazepam 0.5mg PO BID * Zoloft 50mg PO daily (16) Electrolyte disturbance Resolved Hypomagnesemia and hypokalemia * Repleted appropriately * Continue to monitor with am labs (17) Fibromyalgia -Home medication: Diazepam 5mg PO BID -Percocet 5/325mg 2 tab Q6H prn for pain (18) Prophylactic measure -GI: Pepcid 20mg IV daily - DVT: Xarelto 20mg PO daily (Held) - PT/OT - Palliative care consulted to discuss goals of care: Patient is now DNR/DNI; POLST form signed; refer to patient's chart All plans and management discussed with Dr. Farrell
[2018-10-29 12:20] LABS: ANISOCYTOSIS MODERATE; BANDS 1 % (0-2); LYMPHOCYTE 8 % (20-40); MONOCYTE 5 % (0-10); NEUTROPHIL 86 % (50-75); NUCLEATED RED BLOOD CELL 2 % (0-0); PLATELET ESTIMATE NORMAL (NORMAL); POIKILOCYTOSIS SLIGHT; TOTAL CELLS COUNTED 100
[2018-10-29 12:21] LABS: HYPOCHROMIC MODERATE
[2018-10-29 12:26] LABS: MICROCYTOSIS SLIGHT; OVALOCYTES SLIGHT; POLYCHROMIC SLIGHT; SCHISTOCYTES SLIGHT
[2018-10-29 12:27] LABS: LARGE PLATELETS PRESENT; TEARDROP CELLS SLIGHT
[2018-10-29 12:28] LABS: TOXIC GRANULATION PRESENT
[2018-10-29] MEDS: (Lantus) Insulin Glargine, Recombinant SC SCH (21:45)
--- NOTE | 2018-10-29 23:06 | CP.PCM.PN ---
Subjective - Date & Time of Evaluation Date of Evaluation: 10/27/18 Time of Evaluation: 12:00 - Subjective Subjective: Has shortness of breath Objective - Vital Signs/Intake and Output Vital Signs (last 24 hours): Temp Pulse Resp BP Pulse Ox 97 F L 115 H 22 120/69 100 10/29/18 16:00 10/29/18 20:18 10/29/18 16:00 10/29/18 16:00 10/29/18 16:00 Intake and Output: 10/29/18 10/30/18 18:59 06:59 Intake Total 600 Output Total 900 300 Balance -900 300 - Medications Medications: Current Medications Albuterol/Ipratropium (Duoneb 3 Mg/0.5 Mg (3 Ml) Ud) 3 ml IH RQ4 PRN PRN Reason: Shortness of Breath Arformoterol Tartrate (Brovana) 15 mcg INH RQ12@1000,2200 [facility] Last Admin: 10/29/18 20:17 Dose: 15 mcg Artificial Tears (Artificial Tears) 1 ml OU BID [facility] Last Admin: 10/29/18 17:20 Dose: 1 drop Clonazepam (Klonopin) 0.5 mg PO BID [facility] Last Admin: 10/29/18 17:19 Dose: 0.5 mg Colchicine (Colocrys) 0.6 mg PO BID [facility] Last Admin: 10/29/18 17:20 Dose: 0.6 mg Dextrose (Dextrose 50% Inj) 0 ml IVP .STAT PRN; Protocol PRN Reason: Hypoglycemia Protocol Dextrose (Glutose 15) 0 gm PO .ONCE PRN; Protocol PRN Reason: Hypoglycemia Protocol Diazepam (Valium) 5 mg PO BID [facility] Last Admin: 10/29/18 17:19 Dose: 5 mg Diltiazem HCl (Cardizem Cd) 180 mg PO BID [facility] Last Admin: 10/29/18 17:20 Dose: 180 mg Ergocalciferol (Drisdol 50,000 Intl Units Cap) 1 cap PO Q7D [facility] Last Admin: 10/26/18 19:36 Dose: Not Given Escitalopram Oxalate (Lexapro) 5 mg PO DAILY [facility] Last Admin: 10/29/18 09:15 Dose: 5 mg Famotidine (Pepcid) 20 mg IVP DAILY [facility] Last Admin: 10/29/18 09:16 Dose: 20 mg Ferrous Gluconate (Fergon) 324 mg PO TID [facility] Last Admin: 10/29/18 17:19 Dose: 324 mg Furosemide (Lasix) 20 mg IVP DAILY [facility] Last Admin: 10/29/18 09:16 Dose: 20 mg Glucagon (Glucagen Diagnostic Kit) 0 mg IM .STAT PRN; Protocol PRN Reason: Hypoglycemia Protocol Azithromycin 500 mg/ Sodium (Chloride) 250 mls @ 250 mls/hr IVPB DAILY [facility]; Protocol Last Admin: 10/29/18 09:43 Dose: 250 mls/hr Metronidazole (Flagyl) 500 mg in 100 mls @ 100 mls/hr IVPB Q8H [facility]; Protocol Last Admin: 10/29/18 19:34 Dose: 100 mls/hr Insulin Aspart (Novolog) 12 unit SC AC [facility] Last Admin: 10/29/18 17:18 Dose: 12 units Insulin Glargine (Lantus) 24 unit SC HS [facility] Last Admin: 10/29/18 21:45 Dose: 24 u Insulin Human Regular (Novolin R) 0 unit SC ACHS [facility]; Protocol Last Admin: 10/29/18 21:46 Dose: Not Given Levothyroxine Sodium (Synthroid) 100 mcg PO DAILY@0630 [facility] Last Admin: 10/29/18 06:41 Dose: 100 mcg Methylprednisolone (Solu-Medrol) 40 mg IVP Q12H [facility] Last Admin: 10/29/18 21:45 Dose: 40 mg Nystatin (Nystop Topical Powder) 1 applic TOP BID [facility] Last Admin: 10/29/18 17:22 Dose: 1 applic Oxycodone/Acetaminophen (Percocet 5/325 Mg Tab) 1 tab PO Q6H [facility] Stop: 10/30/18 13:31 Last Admin: 10/29/18 19:34 Dose: 1 tab Rivaroxaban (Xarelto) 20 mg PO DAILY [facility] Last Admin: 10/29/18 09:16 Dose: 20 mg Saccharomyces Boulardii (Florastor) 250 mg PO BID [facility] Last Admin: 10/29/18 17:19 Dose: 250 mg Sertraline HCl (Zoloft) 50 mg PO DAILY [facility] Last Admin: 10/29/18 09:17 Dose: 50 mg Sitagliptin Phosphate (Januvia) 100 mg PO DAILY [facility] Last Admin: 10/29/18 09:18 Dose: 100 mg Trazodone HCl (Desyrel) 50 mg PO HS PRN PRN Reason: Sleep Last Admin: 10/29/18 22:37 Dose: 50 mg Trimethobenzamide HCl (Tigan) 200 mg IM Q8 PRN PRN Reason: Nausea/Vomiting Vitamin B Complex/Vit C/Folic Acid (Nephro-Lavinia) 1 tab PO DAILY [facility] Last Admin: 10/29/18 09:15 Dose: 1 tab - Labs Labs: 10/29/18 07:32 10/29/18 07:32 PT 16.2 SECONDS (9.7-12.2) H 10/26/18 13:10 INR 1.5 10/26/18 13:10 APTT 29.0 SECONDS (21-34) 10/26/18 13:10 - Head Exam Head Exam: ATRAUMATIC - Eye Exam Eye Exam: Normal appearance - ENT Exam ENT Exam: Mucous Membranes Dry - Respiratory Exam Respiratory Exam: NORMAL BREATHING PATTERN - Cardiovascular Exam Cardiovascular Exam: +S1, +S2 - GI/Abdominal Exam GI & Abdominal Exam: Normal Bowel Sounds Assessment and Plan (1) Anemia Assessment & Plan: retic count, b12, folate, ferritin, FOBT to further characterize Status: Acute (2) Pancreatic cancer metastasized to liver Assessment & Plan: supportive care decline chemotherapy awaiting MSI and PDL1 testing to see if would benefit from immunotherapy. Status: Acute
--- NOTE | 2018-10-29 23:07 | CP.PCM.PN ---
Subjective - Date & Time of Evaluation Date of Evaluation: 10/28/18 Time of Evaluation: 13:00 - Subjective Subjective: Feeling better. Objective - Vital Signs/Intake and Output Vital Signs (last 24 hours): Temp Pulse Resp BP Pulse Ox 97 F L 115 H 22 120/69 100 10/29/18 16:00 10/29/18 20:18 10/29/18 16:00 10/29/18 16:00 10/29/18 16:00 Intake and Output: 10/29/18 10/30/18 18:59 06:59 Intake Total 600 Output Total 900 300 Balance -900 300 - Medications Medications: Current Medications Albuterol/Ipratropium (Duoneb 3 Mg/0.5 Mg (3 Ml) Ud) 3 ml IH RQ4 PRN PRN Reason: Shortness of Breath Arformoterol Tartrate (Brovana) 15 mcg INH RQ12@1000,2200 [facility] Last Admin: 10/29/18 20:17 Dose: 15 mcg Artificial Tears (Artificial Tears) 1 ml OU BID [facility] Last Admin: 10/29/18 17:20 Dose: 1 drop Clonazepam (Klonopin) 0.5 mg PO BID [facility] Last Admin: 10/29/18 17:19 Dose: 0.5 mg Colchicine (Colocrys) 0.6 mg PO BID [facility] Last Admin: 10/29/18 17:20 Dose: 0.6 mg Dextrose (Dextrose 50% Inj) 0 ml IVP .STAT PRN; Protocol PRN Reason: Hypoglycemia Protocol Dextrose (Glutose 15) 0 gm PO .ONCE PRN; Protocol PRN Reason: Hypoglycemia Protocol Diazepam (Valium) 5 mg PO BID [facility] Last Admin: 10/29/18 17:19 Dose: 5 mg Diltiazem HCl (Cardizem Cd) 180 mg PO BID [facility] Last Admin: 10/29/18 17:20 Dose: 180 mg Ergocalciferol (Drisdol 50,000 Intl Units Cap) 1 cap PO Q7D [facility] Last Admin: 10/26/18 19:36 Dose: Not Given Escitalopram Oxalate (Lexapro) 5 mg PO DAILY [facility] Last Admin: 10/29/18 09:15 Dose: 5 mg Famotidine (Pepcid) 20 mg IVP DAILY [facility] Last Admin: 10/29/18 09:16 Dose: 20 mg Ferrous Gluconate (Fergon) 324 mg PO TID [facility] Last Admin: 10/29/18 17:19 Dose: 324 mg Furosemide (Lasix) 20 mg IVP DAILY [facility] Last Admin: 10/29/18 09:16 Dose: 20 mg Glucagon (Glucagen Diagnostic Kit) 0 mg IM .STAT PRN; Protocol PRN Reason: Hypoglycemia Protocol Azithromycin 500 mg/ Sodium (Chloride) 250 mls @ 250 mls/hr IVPB DAILY [facility]; Protocol Last Admin: 10/29/18 09:43 Dose: 250 mls/hr Metronidazole (Flagyl) 500 mg in 100 mls @ 100 mls/hr IVPB Q8H [facility]; Protocol Last Admin: 10/29/18 19:34 Dose: 100 mls/hr Insulin Aspart (Novolog) 12 unit SC AC [facility] Last Admin: 10/29/18 17:18 Dose: 12 units Insulin Glargine (Lantus) 24 unit SC HS [facility] Last Admin: 10/29/18 21:45 Dose: 24 u Insulin Human Regular (Novolin R) 0 unit SC ACHS [facility]; Protocol Last Admin: 10/29/18 21:46 Dose: Not Given Levothyroxine Sodium (Synthroid) 100 mcg PO DAILY@0630 [facility] Last Admin: 10/29/18 06:41 Dose: 100 mcg Methylprednisolone (Solu-Medrol) 40 mg IVP Q12H [facility] Last Admin: 10/29/18 21:45 Dose: 40 mg Nystatin (Nystop Topical Powder) 1 applic TOP BID [facility] Last Admin: 10/29/18 17:22 Dose: 1 applic Oxycodone/Acetaminophen (Percocet 5/325 Mg Tab) 1 tab PO Q6H [facility] Stop: 10/30/18 13:31 Last Admin: 10/29/18 19:34 Dose: 1 tab Rivaroxaban (Xarelto) 20 mg PO DAILY [facility] Last Admin: 10/29/18 09:16 Dose: 20 mg Saccharomyces Boulardii (Florastor) 250 mg PO BID [facility] Last Admin: 10/29/18 17:19 Dose: 250 mg Sertraline HCl (Zoloft) 50 mg PO DAILY [facility] Last Admin: 10/29/18 09:17 Dose: 50 mg Sitagliptin Phosphate (Januvia) 100 mg PO DAILY [facility] Last Admin: 10/29/18 09:18 Dose: 100 mg Trazodone HCl (Desyrel) 50 mg PO HS PRN PRN Reason: Sleep Last Admin: 10/29/18 22:37 Dose: 50 mg Trimethobenzamide HCl (Tigan) 200 mg IM Q8 PRN PRN Reason: Nausea/Vomiting Vitamin B Complex/Vit C/Folic Acid (Nephro-Lavinia) 1 tab PO DAILY [facility] Last Admin: 10/29/18 09:15 Dose: 1 tab - Labs Labs: 10/29/18 07:32 10/29/18 07:32 PT 16.2 SECONDS (9.7-12.2) H 10/26/18 13:10 INR 1.5 10/26/18 13:10 APTT 29.0 SECONDS (21-34) 10/26/18 13:10 - Head Exam Head Exam: ATRAUMATIC - Eye Exam Eye Exam: Normal appearance - ENT Exam ENT Exam: Mucous Membranes Dry - Respiratory Exam Respiratory Exam: NORMAL BREATHING PATTERN - Cardiovascular Exam Cardiovascular Exam: +S1, +S2 - GI/Abdominal Exam GI & Abdominal Exam: Normal Bowel Sounds Assessment and Plan (1) Anemia Assessment & Plan: retic count, b12, folate, ferritin, FOBT to further characterize Status: Acute (2) Pancreatic cancer metastasized to liver Assessment & Plan: supportive care decline chemotherapy awaiting MSI and PDL1 testing to see if would benefit from immunotherapy. Status: Acute
--- NOTE | 2018-10-29 23:08 | CP.PCM.PN ---
Subjective - Date & Time of Evaluation Date of Evaluation: 10/29/18 Time of Evaluation: 16:00 - Subjective Subjective: No complaints. Objective - Vital Signs/Intake and Output Vital Signs (last 24 hours): Temp Pulse Resp BP Pulse Ox 97 F L 115 H 22 120/69 100 10/29/18 16:00 10/29/18 20:18 10/29/18 16:00 10/29/18 16:00 10/29/18 16:00 Intake and Output: 10/29/18 10/30/18 18:59 06:59 Intake Total 600 Output Total 900 300 Balance -900 300 - Medications Medications: Current Medications Albuterol/Ipratropium (Duoneb 3 Mg/0.5 Mg (3 Ml) Ud) 3 ml IH RQ4 PRN PRN Reason: Shortness of Breath Arformoterol Tartrate (Brovana) 15 mcg INH RQ12@1000,2200 [facility] Last Admin: 10/29/18 20:17 Dose: 15 mcg Artificial Tears (Artificial Tears) 1 ml OU BID [facility] Last Admin: 10/29/18 17:20 Dose: 1 drop Clonazepam (Klonopin) 0.5 mg PO BID [facility] Last Admin: 10/29/18 17:19 Dose: 0.5 mg Colchicine (Colocrys) 0.6 mg PO BID [facility] Last Admin: 10/29/18 17:20 Dose: 0.6 mg Dextrose (Dextrose 50% Inj) 0 ml IVP .STAT PRN; Protocol PRN Reason: Hypoglycemia Protocol Dextrose (Glutose 15) 0 gm PO .ONCE PRN; Protocol PRN Reason: Hypoglycemia Protocol Diazepam (Valium) 5 mg PO BID [facility] Last Admin: 10/29/18 17:19 Dose: 5 mg Diltiazem HCl (Cardizem Cd) 180 mg PO BID [facility] Last Admin: 10/29/18 17:20 Dose: 180 mg Ergocalciferol (Drisdol 50,000 Intl Units Cap) 1 cap PO Q7D [facility] Last Admin: 10/26/18 19:36 Dose: Not Given Escitalopram Oxalate (Lexapro) 5 mg PO DAILY [facility] Last Admin: 10/29/18 09:15 Dose: 5 mg Famotidine (Pepcid) 20 mg IVP DAILY [facility] Last Admin: 10/29/18 09:16 Dose: 20 mg Ferrous Gluconate (Fergon) 324 mg PO TID [facility] Last Admin: 10/29/18 17:19 Dose: 324 mg Furosemide (Lasix) 20 mg IVP DAILY [facility] Last Admin: 10/29/18 09:16 Dose: 20 mg Glucagon (Glucagen Diagnostic Kit) 0 mg IM .STAT PRN; Protocol PRN Reason: Hypoglycemia Protocol Azithromycin 500 mg/ Sodium (Chloride) 250 mls @ 250 mls/hr IVPB DAILY [facility]; Protocol Last Admin: 10/29/18 09:43 Dose: 250 mls/hr Metronidazole (Flagyl) 500 mg in 100 mls @ 100 mls/hr IVPB Q8H [facility]; Protocol Last Admin: 10/29/18 19:34 Dose: 100 mls/hr Insulin Aspart (Novolog) 12 unit SC AC [facility] Last Admin: 10/29/18 17:18 Dose: 12 units Insulin Glargine (Lantus) 24 unit SC HS [facility] Last Admin: 10/29/18 21:45 Dose: 24 u Insulin Human Regular (Novolin R) 0 unit SC ACHS [facility]; Protocol Last Admin: 10/29/18 21:46 Dose: Not Given Levothyroxine Sodium (Synthroid) 100 mcg PO DAILY@0630 [facility] Last Admin: 10/29/18 06:41 Dose: 100 mcg Methylprednisolone (Solu-Medrol) 40 mg IVP Q12H [facility] Last Admin: 10/29/18 21:45 Dose: 40 mg Nystatin (Nystop Topical Powder) 1 applic TOP BID [facility] Last Admin: 10/29/18 17:22 Dose: 1 applic Oxycodone/Acetaminophen (Percocet 5/325 Mg Tab) 1 tab PO Q6H [facility] Stop: 10/30/18 13:31 Last Admin: 10/29/18 19:34 Dose: 1 tab Rivaroxaban (Xarelto) 20 mg PO DAILY [facility] Last Admin: 10/29/18 09:16 Dose: 20 mg Saccharomyces Boulardii (Florastor) 250 mg PO BID [facility] Last Admin: 10/29/18 17:19 Dose: 250 mg Sertraline HCl (Zoloft) 50 mg PO DAILY [facility] Last Admin: 10/29/18 09:17 Dose: 50 mg Sitagliptin Phosphate (Januvia) 100 mg PO DAILY [facility] Last Admin: 10/29/18 09:18 Dose: 100 mg Trazodone HCl (Desyrel) 50 mg PO HS PRN PRN Reason: Sleep Last Admin: 10/29/18 22:37 Dose: 50 mg Trimethobenzamide HCl (Tigan) 200 mg IM Q8 PRN PRN Reason: Nausea/Vomiting Vitamin B Complex/Vit C/Folic Acid (Nephro-Lavinia) 1 tab PO DAILY [facility] Last Admin: 10/29/18 09:15 Dose: 1 tab - Labs Labs: 10/29/18 07:32 10/29/18 07:32 PT 16.2 SECONDS (9.7-12.2) H 10/26/18 13:10 INR 1.5 10/26/18 13:10 APTT 29.0 SECONDS (21-34) 10/26/18 13:10 - Head Exam Head Exam: ATRAUMATIC - Eye Exam Eye Exam: Normal appearance - ENT Exam ENT Exam: Mucous Membranes Dry - Respiratory Exam Respiratory Exam: NORMAL BREATHING PATTERN - Cardiovascular Exam Cardiovascular Exam: +S1, +S2 - GI/Abdominal Exam GI & Abdominal Exam: Normal Bowel Sounds Assessment and Plan (1) Anemia Assessment & Plan: f/u anemia w/u Status: Acute (2) Pancreatic cancer metastasized to liver Assessment & Plan: supportive care decline chemotherapy awaiting MSI and PDL1 testing to see if would benefit from immunotherapy. Status: Acute
[2018-10-30] MEDS: Oxycodone/Acetaminophen 5/325 mg Tab PO SCH ×3 (01:57→13:41)
[2018-10-30] MEDS: metroNIDAZOLE IV 500 mg/100 ml 500 MG/100 ML BAG IVPB SCH ×3 (03:55→20:26)
[2018-10-30] MEDS: Levothyroxine 100 MCG TAB PO SCH (06:32)
[2018-10-30 08:17] LABS: BASO # 0.1 K/uL (0.0-0.2); BASO % 1.3 % (0.0-2.0); EOS # 0.1 K/uL (0.0-0.7); EOS % 0.5 % (0.0-4.0); HEMOGLOBIN 9.6 g/dL (11.0-16.0); LYMPH # 0.7 K/uL (1.0-4.3); MEAN CELL VOLUME 78.1 fL (81.0-99.0); MEAN CORPUSCULAR HEMOGLOBIN 24.5 pg (27.0-31.0); MEAN CORPUSCULAR HGB CONC 31.4 g/dL (33.0-37.0); MEAN PLATELET VOLUME 8.8 fL (7.2-11.7); MONO # 0.6 K/uL (0.0-0.8); MONO % 5.8 % (0.0-10.0); NEUT # 8.7 K/uL (1.8-7.0); NEUT % 85.4 % (50.0-75.0); NRBC % 0.1 % (0.0-2.0); PLATELET COUNT 318 K/uL (130-400); RBC 3.91 Mil/uL (3.80-5.20); RED CELL DISTRIBUTION WIDTH 21.1 % (11.5-14.5); WHITE BLOOD COUNT 10.2 K/uL (4.8-10.8)
[2018-10-30 08:21] LABS: ALB/GLOB RATIO 1.3 (1.0-2.1); ALBUMIN 3.1 g/dL (3.5-5.0); ALT/SGPT 92 U/L (9-52); AST/SGOT 45 U/L (14-36); BLOOD UREA NITROGEN 35 mg/dL (7-17); CALCIUM 8.5 mg/dl (8.6-10.4); GFR NON-AFRICAN AMERICAN > 60
[2018-10-30] MEDS: (Novolin R) Insulin Human Regular 100 units/ml vial SC SCH ×4 (08:30→22:10)
[2018-10-30] MEDS: (Novolog) Insulin Aspart, Recombinant 100 u/ml 10 ml vial SC SCH ×3 (08:30→17:25)
[2018-10-30 09:26] LABS: FOLATE > 20.0 ng/mL
[2018-10-30] MEDS: Arformoterol 15 mcg/2 ml Inh Sol INH SCH ×2 (09:30→21:00)
[2018-10-30] MEDS: diltiaZEM 180 mg/24 Hours CD Cap PO SCH ×2 (09:50→20:26)
[2018-10-30] MEDS: Aritificial Tears (15ml) OU SCH ×2 (09:50→18:11)
[2018-10-30] MEDS: Multivitamin Vitamin B Complex (Nephro-Vite) Tab PO SCH (09:51)
[2018-10-30] MEDS: Saccharomyces Boulardi 250 mg Cap PO SCH ×2 (09:51→18:11)
[2018-10-30] MEDS: MethylPREDNISolone 40 mg Vial IVP SCH ×2 (09:51→20:26)
[2018-10-30] MEDS: Azithromycin 500 MG in Sodium Chloride 0.9% 250 ML IVPB SCH (09:52)
[2018-10-30 10:37] LABS: BANDS 1 % (0-2); LYMPHOCYTE 8 % (20-40); MONOCYTE 7 % (0-10); NEUTROPHIL 84 % (50-75); TOTAL CELLS COUNTED 100
[2018-10-30 10:38] LABS: ANISOCYTOSIS MODERATE; HYPOCHROMIC SLIGHT; MICROCYTOSIS SLIGHT; PLATELET ESTIMATE NORMAL (NORMAL); POIKILOCYTOSIS SLIGHT; POLYCHROMIC SLIGHT
[2018-10-30 10:39] LABS: LARGE PLATELETS PRESENT; OVALOCYTES SLIGHT; SCHISTOCYTES SLIGHT; TEARDROP CELLS SLIGHT
--- NOTE | 2018-10-30 11:54 | CP.PCM.PN ---
Subjective - Date & Time of Evaluation Date of Evaluation: 10/30/18 Time of Evaluation: 11:50 - Subjective Subjective: PGY3 progress note for hospitalists Pt seen and examined at bedside. No acute events overnight. Resting comfortably. Denies having any CP, SOB, abd pain, N/V/D/C, F/C. Objective - Vital Signs/Intake and Output Vital Signs (last 24 hours): Temp Pulse Resp BP Pulse Ox 98.1 F 100 H 16 143/85 96 10/29/18 23:30 10/30/18 07:40 10/29/18 23:30 10/30/18 09:51 10/29/18 23:30 Intake and Output: 10/30/18 10/30/18 06:59 18:59 Intake Total 600 Output Total 750 Balance -150 - Medications Medications: Current Medications Albuterol/Ipratropium (Duoneb 3 Mg/0.5 Mg (3 Ml) Ud) 3 ml IH RQ4 PRN PRN Reason: Shortness of Breath Arformoterol Tartrate (Brovana) 15 mcg INH RQ12@1000,2200 [facility] Last Admin: 10/30/18 09:30 Dose: 15 mcg Artificial Tears (Artificial Tears) 1 ml OU BID [facility] Last Admin: 10/29/18 17:20 Dose: 1 drop Clonazepam (Klonopin) 0.5 mg PO BID [facility] Last Admin: 10/30/18 09:50 Dose: 0.5 mg Colchicine (Colocrys) 0.6 mg PO BID [facility] Last Admin: 10/30/18 09:50 Dose: 0.6 mg Dextrose (Dextrose 50% Inj) 0 ml IVP .STAT PRN; Protocol PRN Reason: Hypoglycemia Protocol Dextrose (Glutose 15) 0 gm PO .ONCE PRN; Protocol PRN Reason: Hypoglycemia Protocol Diazepam (Valium) 5 mg PO BID [facility] Last Admin: 10/30/18 09:51 Dose: 5 mg Diltiazem HCl (Cardizem Cd) 180 mg PO BID [facility] Last Admin: 10/30/18 09:50 Dose: 180 mg Ergocalciferol (Drisdol 50,000 Intl Units Cap) 1 cap PO Q7D [facility] Last Admin: 10/26/18 19:36 Dose: Not Given Escitalopram Oxalate (Lexapro) 5 mg PO DAILY [facility] Last Admin: 10/30/18 09:50 Dose: 5 mg Famotidine (Pepcid) 20 mg IVP DAILY [facility] Last Admin: 10/30/18 09:51 Dose: 20 mg Ferrous Gluconate (Fergon) 324 mg PO TID [facility] Last Admin: 10/30/18 09:50 Dose: 324 mg Furosemide (Lasix) 20 mg IVP DAILY [facility] Last Admin: 10/30/18 09:51 Dose: 20 mg Glucagon (Glucagen Diagnostic Kit) 0 mg IM .STAT PRN; Protocol PRN Reason: Hypoglycemia Protocol Metronidazole (Flagyl) 500 mg in 100 mls @ 100 mls/hr IVPB Q8H [facility]; Protocol Last Admin: 10/30/18 03:55 Dose: 100 mls/hr Insulin Aspart (Novolog) 12 unit SC AC [facility] Last Admin: 10/30/18 08:30 Dose: 12 units Insulin Glargine (Lantus) 24 unit SC HS [facility] Last Admin: 10/29/18 21:45 Dose: 24 u Insulin Human Regular (Novolin R) 0 unit SC ACHS [facility]; Protocol Last Admin: 10/30/18 08:30 Dose: 10 units Levothyroxine Sodium (Synthroid) 100 mcg PO DAILY@0630 [facility] Last Admin: 10/30/18 06:32 Dose: 100 mcg Methylprednisolone (Solu-Medrol) 40 mg IVP Q12H [facility] Last Admin: 10/30/18 09:51 Dose: 40 mg Nystatin (Nystop Topical Powder) 1 applic TOP BID [facility] Last Admin: 10/30/18 09:56 Dose: 1 applic Oxycodone/Acetaminophen (Percocet 5/325 Mg Tab) 1 tab PO Q6H [facility] Stop: 10/30/18 13:31 Last Admin: 10/30/18 06:32 Dose: 1 tab Rivaroxaban (Xarelto) 20 mg PO DAILY [facility] Last Admin: 10/30/18 09:50 Dose: 20 mg Saccharomyces Boulardii (Florastor) 250 mg PO BID [facility] Last Admin: 10/30/18 09:51 Dose: 250 mg Sertraline HCl (Zoloft) 50 mg PO DAILY [facility] Last Admin: 10/30/18 09:51 Dose: 50 mg Sitagliptin Phosphate (Januvia) 100 mg PO DAILY [facility] Last Admin: 10/30/18 09:51 Dose: 100 mg Trazodone HCl (Desyrel) 50 mg PO HS PRN PRN Reason: Sleep Last Admin: 10/29/18 22:37 Dose: 50 mg Trimethobenzamide HCl (Tigan) 200 mg IM Q8 PRN PRN Reason: Nausea/Vomiting Vitamin B Complex/Vit C/Folic Acid (Nephro-Lavinia) 1 tab PO DAILY [facility] Last Admin: 10/30/18 09:51 Dose: 1 tab - Labs Labs: 10/30/18 07:00 10/30/18 07:00 PT 16.2 SECONDS (9.7-12.2) H 10/26/18 13:10 INR 1.5 10/26/18 13:10 APTT 29.0 SECONDS (21-34) 10/26/18 13:10 - Constitutional Appears: Non-toxic, No Acute Distress - Head Exam Head Exam: ATRAUMATIC, NORMOCEPHALIC - Respiratory Exam Respiratory Exam: Clear to Ausculation Bilateral. absent: Accessory Muscle Use, Rales, Rhonchi, Wheezes, Respiratory Distress - Cardiovascular Exam Cardiovascular Exam: REGULAR RHYTHM, +S1, +S2. absent: Gallop, Rubs, Murmur - GI/Abdominal Exam GI & Abdominal Exam: Soft, Normal Bowel Sounds. absent: Distended, Firm, Guarding, Rigid, Tenderness, Organomegaly - Extremities Exam Extremities Exam: absent: Pedal Edema, Tenderness - Neurological Exam Neurological Exam: Alert, Awake, Oriented x3 - Psychiatric Exam Psychiatric exam: Normal Affect, Normal Mood - Skin Skin Exam: Dry, Intact, Normal Color, Warm Assessment and Plan - Assessment and Plan (Free Text) Assessment: (1) Sepsis Secondary to healthcare acquired pneumonia Consultation: - ID, Dr. Little---> help appreciated - PulmDr. Dickerson consulted Labs/Vitals: - Blood and urine cultures negative Imaging: Chest CT without contrast: Worsening airspace consolidative changes seen in the bilateral lower lobes; left greater than right. This may be the sequelae of acute infectious changes. Clinical correlation. Post treatment interval Medications: - Vancomycin 1gm IV daily (Received 2 doses- 10/26 & 10/27) - Azithromycin 500mg IVPB daily completed - Florastor 250mg PO BID (2) SVT (supraventricular tachycardia) Consultation: * Business Supervisor, Dr. Pineda---> Help appreciated History of Tachycardia * TELEPHONE ORDER DISPATCHER at 11:00pm 4/25/19 for episode of SVT * Cardizem 180 mg po will be increased to TID (3) Elevated troponin Consultation: * Business Supervisor, Dr. Pineda---> Help appreciated * No ST changes * No intervention at this point. Medical management (4) Clostridium difficile infection Consultation: ID, Dr. Little---> help appreciated Labs: C-difficle toxin (10/27/18): Positive * This was checked due known exposure at the group home prior to admission Initial ova/parasite cultures negative. will repeat 2 more times Medications: * Flagyl 500mg IV Q8H (Initiated 10/28/18) * Zosyn 3.375gm IV Q6H completed * Florastor 250mg PO BID As per nursing, patient has not had an episode of diarrhea on her shift for the past 2 days (5) Pancreatic cancer metastasized to liver Procedure (10/11/18): Findings: Metastasis to the liver, grossly single nodule. Cystic lesion and harden pancreas. - Pathology: Adenocarcinoma, favor pancreatico-Biliary Labs and imaging: - CEA: 42.5, CA19-9: 1980, CA125: 36.2 - Abdomen/Pelvic CT: Heterogeneous hyperdense pancreatic mass measuring approximately 2.7 x 2.5 cm at the pancreatic body/tail. Ectatic dilated pancreatic duct. Additional cystic heterogeneous focus measuring approximately 15 x 14 mm is noted at the superior aspect of the pancreas. Appearance worrisome for malignant neoplasm. Wall thickening involving the 2nd portion of the duodenum of uncertain significance; considerations include infectious, inflammatory, or malignant etiologies. Correlate clinically and recommend furthe r evaluation with direct visualization if indicated. Small pelvic free fluid (6) CHF (congestive heart failure) on admission: - BNP:1620 Imaging: - Chest X-ray (10/26/18): Findings are concerning for developing congestive heart failure Medication: - Lasix 20mg IV daily (7) Diabetes mellitus HgbA1C (09/07/18): 9.0 Accuchecks ISS- High dose Novolog 12 units AC Lantus 24units SC HS Glipizide 10mg PO BID Januvia 100mg PO daily Hypoglycemia protocol (8) Hypothyroid - TSH/Free T4 (09/07/18): 9.5/0.30 - Continue Synthroid 100mcg PO daily (9) History of DVT (deep vein thrombosis) - Continue Xarelto 20mg PO daily (10) Gout Colchicine 0.6mg PO BID (11) Chronic obstructive pulmonary disease w/ acute lower respiratory infxn Consultation: * Pulmonology, Dr. Dickerson. Per recs will taper down steroids Imaging: Chest CT without contrast: Worsening airspace consolidative changes seen in the bilateral lower lobes; left greater than right. This may be the sequelae of acute infectious changes. Clinical correlation. Post treatment interval Medications: -Azithromycin 500mg IVPB daily (stared 10/27/18) -Duoneb 3ml IH RQ4 PRN for shortness of breath - Brovana 15mcg INH RQ12H - Solumedrol 40mg IVP changed to Q12 - BiPAP continuos - Florastor 250mg PO BID (12) History of anemia H/H stable - Fergon 324mg PO TID (13) Ulcer Sacral; stage 2 Wound care consult - Recommendation for use of hydrogen peroxide - Turn Q2H (14) Intertrigo -Started Nystatin Powder BID (15) Psychiatric disturbance Depression and anxiety Consultation * Psychiatry, Dr. Dexter----> Help appreciated Medications: * Clonazepam 0.5mg PO BID * Zoloft 50mg PO daily (16) Electrolyte disturbance Resolved Hypomagnesemia and hypokalemia * Repleted appropriately * Continue to monitor with am labs (17) Fibromyalgia -Home medication: Diazepam 5mg PO BID -Percocet 5/325mg 2 tab Q6H prn for pain (18) Prophylactic measure -GI: Pepcid 20mg IV daily - DVT: Xarelto 20mg PO daily (Held) - PT/OT - Palliative care consulted to discuss goals of care: Patient is now DNR/DNI; POLST form signed; refer to patient's chart All plans and management discussed with Dr. Farrell
[2018-10-30] MEDS ORDERED: Magnesium Sulfate 1 gm in D5W 1 GM/100 ML BAG IVPB ONE (13:08)
--- NOTE | 2018-10-30 13:17 | PCM.RRT ---
CADD TECHNICIAN Nurses Assessment - Situation Date: 10/27/18 Time CADD TECHNICIAN was called: 22:12 CADD TECHNICIAN Responder Arrival Time:: 22:13 CADD TECHNICIAN Location:: Med/Surg Room Number: 550B CADD TECHNICIAN Reason for Call: Tachycardia CADD TECHNICIAN Called By: RN - IV IV Inserted during CADD TECHNICIAN?: No New IV Insertion Tolerance: Good - Respiratory CADD TECHNICIAN Delivery Method: BiPAP @% Oxygen Flow Rate: 99 Received Nebulizer Treatments: No Was the Patient Ventilated with Bag/Mask 100% O2?: No Secretions Suctioned?: No Was the Patient Intubated?: No Was the Patient Placed on a Ventilator?: No - Ventilator Settings FIO2 (% Oxygen): 30 - Medication Medications Administered During CADD TECHNICIAN: 2228 Adenosine 60mg IVP - Diagnostic Test Ordered EKG: Yes (ST) Chest X-Ray: No CT Scan: No - Stat Labs Ordered CADD TECHNICIAN Stat Labs Ordered: TROPONIN CPR started during CADD TECHNICIAN?: No - Vital Signs Vital Signs: Rapid Response Vital Sign Blood Pressure 96/66 Pulse Rate 189 Respiratory Rate 25 Oxygen Saturation 100 - Anselmo Coma Scale Coma Scale Eye Opening: Spontaneous Coma Scale Motor: Obeys Commands Movement Coma Scale Verbal: Oriented Coma Scale Total: 15 - Time CADD TECHNICIAN Ended Time CADD TECHNICIAN Ended: 22:33 - Vital Signs at end of CADD TECHNICIAN Vital Signs at end of CADD TECHNICIAN: Rapid Response End Vital Sign Blood Pressure 132/83 Pulse Rate 131 Respiratory Rate 23 O2 Sat by Pulse Oximetry 97 - Recommendations 5) CADD TECHNICIAN Level of Care Recommendations: Remain in current setting Notifications: Attending Physician - Neurological Status (Select all that apply): Alert, Responsive, Oriented, Verbal, Follows Commands - Respiratory Oxygen Delivery Method: BiPAP @% Oxygen Flow Rate: 99 - Constitutional Appears: Non-toxic - Head Head Exam: ATRAUMATIC, NORMOCEPHALIC - Respiratory Exam Respiratory Exam: Clear to Ausculation Bilateral. absent: Rales, Rhonchi, Wheezes - Cardiovascular Exam Cardiovascular Exam: Tachycardia, +S1, +S2. absent: Murmur - GI/Abdominal Exam GI & Abdominal Exam: Soft. absent: Distended, Firm, Guarding, Rigid - Neurological Exam Neurological Exam: Alert, Awake, Oriented x3 Plan - Assessment of Findings&Treatment Plan 63 year old female with past medical history of PNA, pancreatic cancer with mets ot liver, UE DVT, SVT has CADD TECHNICIAN called for tachycardia with HR in 180s. Patient was taken off BiPAP and placed on NC to eat lunch. Pt developed tachycardia and placed back on BiPAP but remained tachycardic. CADD TECHNICIAN was called at this point. Patient received 2 doses of cardizem 10 mg IVP and then HR returned to 90s. Patient's daily dose of cardizem increased to 180 mg po TID.
--- NOTE | 2018-10-30 15:13 | CP.PCM.PN ---
Subjective - Date & Time of Evaluation Date of Evaluation: 10/30/18 Time of Evaluation: 09:00 - Subjective Subjective: awake and alert no new complaints interim events noted patient examined entries reviewed labs reviewed orders signed Objective - Vital Signs/Intake and Output Vital Signs (last 24 hours): Temp Pulse Resp BP Pulse Ox 98.1 F 110 H 16 143/85 96 10/29/18 23:30 10/30/18 13:30 10/29/18 23:30 10/30/18 09:51 10/29/18 23:30 Intake and Output: 10/30/18 10/30/18 06:59 18:59 Intake Total 600 Output Total 750 Balance -150 - Medications Medications: Current Medications Albuterol/Ipratropium (Duoneb 3 Mg/0.5 Mg (3 Ml) Ud) 3 ml IH RQ4 PRN PRN Reason: Shortness of Breath Arformoterol Tartrate (Brovana) 15 mcg INH RQ12@1000,2200 [facility] Last Admin: 10/30/18 09:30 Dose: 15 mcg Artificial Tears (Artificial Tears) 1 ml OU BID [facility] Last Admin: 10/30/18 09:50 Dose: Not Given Clonazepam (Klonopin) 0.5 mg PO BID [facility] Last Admin: 10/30/18 14:47 Dose: 0.5 mg Colchicine (Colocrys) 0.6 mg PO BID [facility] Last Admin: 10/30/18 09:50 Dose: 0.6 mg Dextrose (Dextrose 50% Inj) 0 ml IVP .STAT PRN; Protocol PRN Reason: Hypoglycemia Protocol Dextrose (Glutose 15) 0 gm PO .ONCE PRN; Protocol PRN Reason: Hypoglycemia Protocol Diazepam (Valium) 5 mg PO BID [facility] Last Admin: 10/30/18 09:51 Dose: 5 mg Diltiazem HCl (Cardizem Cd) 180 mg PO TID [facility] Ergocalciferol (Drisdol 50,000 Intl Units Cap) 1 cap PO Q7D [facility] Last Admin: 10/26/18 19:36 Dose: Not Given Escitalopram Oxalate (Lexapro) 5 mg PO DAILY [facility] Last Admin: 10/30/18 09:50 Dose: 5 mg Famotidine (Pepcid) 20 mg IVP DAILY [facility] Last Admin: 10/30/18 09:51 Dose: 20 mg Ferrous Gluconate (Fergon) 324 mg PO TID [facility] Last Admin: 10/30/18 13:41 Dose: 324 mg Furosemide (Lasix) 20 mg IVP DAILY [facility] Last Admin: 10/30/18 09:51 Dose: 20 mg Glucagon (Glucagen Diagnostic Kit) 0 mg IM .STAT PRN; Protocol PRN Reason: Hypoglycemia Protocol Metronidazole (Flagyl) 500 mg in 100 mls @ 100 mls/hr IVPB Q8H [facility]; Protocol Last Admin: 10/30/18 12:08 Dose: 100 mls/hr Insulin Aspart (Novolog) 12 unit SC AC [facility] Last Admin: 10/30/18 12:08 Dose: 12 units Insulin Glargine (Lantus) 24 unit SC HS [facility] Last Admin: 10/29/18 21:45 Dose: 24 u Insulin Human Regular (Novolin R) 0 unit SC ACHS [facility]; Protocol Last Admin: 10/30/18 12:08 Dose: 10 units Levothyroxine Sodium (Synthroid) 100 mcg PO DAILY@0630 [facility] Last Admin: 10/30/18 06:32 Dose: 100 mcg Methylprednisolone (Solu-Medrol) 40 mg IVP Q12H [facility] Last Admin: 10/30/18 09:51 Dose: 40 mg Nystatin (Nystop Topical Powder) 1 applic TOP BID [facility] Last Admin: 10/30/18 09:56 Dose: 1 applic Rivaroxaban (Xarelto) 20 mg PO DAILY [facility] Last Admin: 10/30/18 09:50 Dose: 20 mg Saccharomyces Boulardii (Florastor) 250 mg PO BID [facility] Last Admin: 10/30/18 09:51 Dose: 250 mg Sertraline HCl (Zoloft) 50 mg PO DAILY [facility] Last Admin: 10/30/18 09:51 Dose: 50 mg Sitagliptin Phosphate (Januvia) 100 mg PO DAILY [facility] Last Admin: 10/30/18 09:51 Dose: 100 mg Trazodone HCl (Desyrel) 50 mg PO HS PRN PRN Reason: Sleep Last Admin: 10/29/18 22:37 Dose: 50 mg Trimethobenzamide HCl (Tigan) 200 mg IM Q8 PRN PRN Reason: Nausea/Vomiting Vitamin B Complex/Vit C/Folic Acid (Nephro-Lavinia) 1 tab PO DAILY [facility] Last Admin: 10/30/18 09:51 Dose: 1 tab - Labs Labs: 10/30/18 07:00 10/30/18 07:00 PT 16.2 SECONDS (9.7-12.2) H 10/26/18 13:10 INR 1.5 10/26/18 13:10 APTT 29.0 SECONDS (21-34) 10/26/18 13:10 - Constitutional Appears: Non-toxic, No Acute Distress, Chronically Ill - Head Exam Head Exam: ATRAUMATIC, NORMAL INSPECTION, NORMOCEPHALIC - Eye Exam Eye Exam: EOMI, Normal appearance, PERRL Pupil Exam: NORMAL ACCOMODATION, PERRL - ENT Exam ENT Exam: Mucous Membranes Moist, Normal Exam - Neck Exam Neck Exam: Full ROM, Normal Inspection. absent: Lymphadenopathy - Respiratory Exam Respiratory Exam: Decreased Breath Sounds, Prolonged Expiratory Phase, Rhonchi - Cardiovascular Exam Cardiovascular Exam: Tachycardia, REGULAR RHYTHM, +S1, +S2. absent: Murmur - GI/Abdominal Exam GI & Abdominal Exam: Soft, Normal Bowel Sounds. absent: Tenderness - Rectal Exam Rectal Exam: Deferred - Exam Exam: NORMAL INSPECTION - Extremities Exam Extremities Exam: Full ROM, Normal Capillary Refill, Normal Inspection. absent: Joint Swelling, Pedal Edema - Back Exam Back Exam: NORMAL INSPECTION - Neurological Exam Neurological Exam: Alert, Awake, CN II-XII Intact, Oriented x3. absent: Normal Gait - Psychiatric Exam Psychiatric exam: Depressed - Skin Skin Exam: Dry, Intact, Normal Color, Warm Assessment and Plan (1) Chr obstructive pulmonary disease w/ acute lower respiratory infxn Status: Acute (2) Clostridium difficile infection Status: Acute (3) Diabetes mellitus Status: Acute (4) Fibromyalgia Status: Acute (5) History of anemia Status: Acute (6) Pancreatic cancer Status: Acute (7) Pancreatic cancer metastasized to liver Status: Acute (8) Respiratory insufficiency/failure Status: Acute - Assessment and Plan (Free Text) Assessment: all cultures so far negative cont IV rx supportive care
[2018-10-30] MEDS ORDERED: Oxycodone/Acetaminophen 5/325 mg Tab PO PRN (18:50)
[2018-10-30] MEDS: Oxycodone/Acetaminophen 5/325 mg Tab PO PRN (19:12)
--- NOTE | 2018-10-30 20:50 | CP.PCM.PN ---
Subjective - Date & Time of Evaluation Date of Evaluation: 10/30/18 Time of Evaluation: 18:00 - Subjective Subjective: Had [employer]OR [employer] for tachycardia Objective - Vital Signs/Intake and Output Vital Signs (last 24 hours): Temp Pulse Resp BP Pulse Ox 98.3 F 108 H 20 125/82 98 10/30/18 15:00 10/30/18 16:32 10/30/18 15:00 10/30/18 15:00 10/30/18 15:00 Intake and Output: 10/30/18 10/31/18 18:59 06:59 Output Total 1000 Balance -1000 - Medications Medications: Current Medications Albuterol/Ipratropium (Duoneb 3 Mg/0.5 Mg (3 Ml) Ud) 3 ml IH RQ4 PRN PRN Reason: Shortness of Breath Arformoterol Tartrate (Brovana) 15 mcg INH RQ12@1000,2200 [facility] Last Admin: 10/30/18 09:30 Dose: 15 mcg Artificial Tears (Artificial Tears) 1 ml OU BID [facility] Last Admin: 10/30/18 18:11 Dose: 1 drop Clonazepam (Klonopin) 0.5 mg PO BID [facility] Last Admin: 10/30/18 20:26 Dose: 0.5 mg Colchicine (Colocrys) 0.6 mg PO BID [facility] Last Admin: 10/30/18 18:11 Dose: 0.6 mg Dextrose (Dextrose 50% Inj) 0 ml IVP .STAT PRN; Protocol PRN Reason: Hypoglycemia Protocol Dextrose (Glutose 15) 0 gm PO .ONCE PRN; Protocol PRN Reason: Hypoglycemia Protocol Diazepam (Valium) 5 mg PO BID [facility] Last Admin: 10/30/18 18:11 Dose: 5 mg Diltiazem HCl (Cardizem Cd) 180 mg PO TID [facility] Last Admin: 10/30/18 20:26 Dose: 180 mg Ergocalciferol (Drisdol 50,000 Intl Units Cap) 1 cap PO Q7D [facility] Last Admin: 10/26/18 19:36 Dose: Not Given Escitalopram Oxalate (Lexapro) 5 mg PO DAILY [facility] Last Admin: 10/30/18 09:50 Dose: 5 mg Famotidine (Pepcid) 20 mg IVP DAILY [facility] Last Admin: 10/30/18 09:51 Dose: 20 mg Ferrous Gluconate (Fergon) 324 mg PO TID [facility] Last Admin: 10/30/18 18:11 Dose: 324 mg Furosemide (Lasix) 20 mg IVP DAILY [facility] Last Admin: 10/30/18 09:51 Dose: 20 mg Glucagon (Glucagen Diagnostic Kit) 0 mg IM .STAT PRN; Protocol PRN Reason: Hypoglycemia Protocol Metronidazole (Flagyl) 500 mg in 100 mls @ 100 mls/hr IVPB Q8H [facility]; Protocol Last Admin: 10/30/18 20:26 Dose: 100 mls/hr Insulin Aspart (Novolog) 12 unit SC AC [facility] Last Admin: 10/30/18 17:25 Dose: 12 units Insulin Glargine (Lantus) 24 unit SC HS [facility] Last Admin: 10/29/18 21:45 Dose: 24 u Insulin Human Regular (Novolin R) 0 unit SC ACHS [facility]; Protocol Last Admin: 10/30/18 17:25 Dose: 8 units Levothyroxine Sodium (Synthroid) 100 mcg PO DAILY@0630 [facility] Last Admin: 10/30/18 06:32 Dose: 100 mcg Methylprednisolone (Solu-Medrol) 40 mg IVP Q12H [facility] Last Admin: 10/30/18 20:26 Dose: 40 mg Nystatin (Nystop Topical Powder) 1 applic TOP BID [facility] Last Admin: 10/30/18 18:18 Dose: 1 applic Oxycodone/Acetaminophen (Percocet 5/325 Mg Tab) 1 tab PO Q4 PRN PRN Reason: Pain, moderate (4-7) Stop: 11/02/18 20:01 Last Admin: 10/30/18 19:12 Dose: 1 tab Rivaroxaban (Xarelto) 20 mg PO DAILY [facility] Last Admin: 10/30/18 09:50 Dose: 20 mg Saccharomyces Boulardii (Florastor) 250 mg PO BID [facility] Last Admin: 10/30/18 18:11 Dose: 250 mg Sertraline HCl (Zoloft) 50 mg PO DAILY [facility] Last Admin: 10/30/18 09:51 Dose: 50 mg Sitagliptin Phosphate (Januvia) 100 mg PO DAILY [facility] Last Admin: 10/30/18 09:51 Dose: 100 mg Trazodone HCl (Desyrel) 50 mg PO HS PRN PRN Reason: Sleep Last Admin: 10/29/18 22:37 Dose: 50 mg Trimethobenzamide HCl (Tigan) 200 mg IM Q8 PRN PRN Reason: Nausea/Vomiting Vitamin B Complex/Vit C/Folic Acid (Nephro-Lavinia) 1 tab PO DAILY [facility] Last Admin: 10/30/18 09:51 Dose: 1 tab - Labs Labs: 10/30/18 07:00 10/30/18 07:00 PT 16.2 SECONDS (9.7-12.2) H 10/26/18 13:10 INR 1.5 10/26/18 13:10 APTT 29.0 SECONDS (21-34) 10/26/18 13:10 - Head Exam Head Exam: ATRAUMATIC - Eye Exam Eye Exam: Normal appearance - ENT Exam ENT Exam: Mucous Membranes Dry - Respiratory Exam Respiratory Exam: NORMAL BREATHING PATTERN - Cardiovascular Exam Cardiovascular Exam: +S1, +S2 - GI/Abdominal Exam GI & Abdominal Exam: Normal Bowel Sounds Assessment and Plan (1) Anemia Assessment & Plan: anemia of chronic disease Status: Acute (2) Pancreatic cancer metastasized to liver Assessment & Plan: deferred chemotherapy PDL1 and MSI testing to see if pt would benefit from immunotherapy Status: Acute
[2018-10-30] MEDS: Vancomycin Hydrochloride 250 mg Capsule (Oral) PO SCH (22:08)
[2018-10-30] MEDS: (Lantus) Insulin Glargine, Recombinant SC SCH (22:10)
[2018-10-31] MEDS: metroNIDAZOLE IV 500 mg/100 ml 500 MG/100 ML BAG IVPB SCH ×3 (04:07→19:58)
[2018-10-31] MEDS: Levothyroxine 100 MCG TAB PO SCH (06:31)
[2018-10-31 07:47] LABS: BASO % 0.3 % (0.0-2.0); EOS % 0.1 % (0.0-4.0); HEMOGLOBIN 9.7 g/dL (11.0-16.0); LYMPH # 0.7 K/uL (1.0-4.3); LYMPH % 7.2 % (20.0-40.0); MEAN CELL VOLUME 77.8 fL (81.0-99.0); MEAN CORPUSCULAR HEMOGLOBIN 24.5 pg (27.0-31.0); MEAN CORPUSCULAR HGB CONC 31.5 g/dL (33.0-37.0); MEAN PLATELET VOLUME 8.9 fL (7.2-11.7); MONO # 0.7 K/uL (0.0-0.8); MONO % 6.5 % (0.0-10.0); NEUT # 8.6 K/uL (1.8-7.0); NEUT % 85.9 % (50.0-75.0); NRBC % 0.2 % (0.0-2.0); PLATELET COUNT 312 K/uL (130-400); RBC 3.96 Mil/uL (3.80-5.20); WHITE BLOOD COUNT 10.1 K/uL (4.8-10.8)
[2018-10-31 07:56] LABS: ALB/GLOB RATIO 1.3 (1.0-2.1); ALT/SGPT 94 U/L (9-52); AST/SGOT 48 U/L (14-36); BLOOD UREA NITROGEN 37 mg/dL (7-17); CALCIUM 8.4 mg/dl (8.6-10.4); GFR NON-AFRICAN AMERICAN > 60
[2018-10-31] MEDS: (Novolin R) Insulin Human Regular 100 units/ml vial SC SCH ×4 (08:29→21:23)
[2018-10-31] MEDS: (Novolog) Insulin Aspart, Recombinant 100 u/ml 10 ml vial SC SCH ×3 (08:29→17:14)
[2018-10-31] MEDS: MethylPREDNISolone 40 mg Vial IVP SCH ×2 (08:42→20:03)
[2018-10-31] MEDS: diltiaZEM 180 mg/24 Hours CD Cap PO SCH ×3 (09:03→17:13)
[2018-10-31] MEDS: Saccharomyces Boulardi 250 mg Cap PO SCH ×2 (09:04→17:13)
[2018-10-31] MEDS: Multivitamin Vitamin B Complex (Nephro-Vite) Tab PO SCH (09:04)
[2018-10-31] MEDS: Aritificial Tears (15ml) OU SCH ×2 (09:06→17:15)
[2018-10-31 09:22] LABS: ANISOCYTOSIS SLIGHT; LYMPHOCYTE 6 % (20-40); MONOCYTE 6 % (0-10); NEUTROPHIL 88 % (50-75); PLATELET ESTIMATE NORMAL (NORMAL); TOTAL CELLS COUNTED 100
[2018-10-31 09:23] LABS: HYPOCHROMIC SLIGHT; LARGE PLATELETS PRESENT; OVALOCYTES SLIGHT; POIKILOCYTOSIS SLIGHT; TEARDROP CELLS SLIGHT
[2018-10-31] MEDS: Vancomycin Hydrochloride 250 mg Capsule (Oral) PO SCH ×4 (10:50→21:27)
--- NOTE | 2018-10-31 11:17 | CP.PCM.PN ---
Subjective - Date & Time of Evaluation Date of Evaluation: 10/31/18 Time of Evaluation: 09:00 - Subjective Subjective: Medicine Progress Note for Dr. Gutierres Patient seen and examined at bedside. Nursing staff reports patient's heart rate was in the 100s at night. Patient denies shortness of breath or chest pain. Patient further denies fever, chills, nausea, vomiting, or abdominal pain. Objective - Vital Signs/Intake and Output Vital Signs (last 24 hours): Temp Pulse Resp BP Pulse Ox 99 F 120 H 24 148/85 98 10/31/18 08:00 10/31/18 09:09 10/31/18 08:00 10/31/18 09:09 10/31/18 08:00 Intake and Output: 10/31/18 10/31/18 06:59 18:59 Output Total 450 Balance -450 - Medications Medications: Current Medications Albuterol/Ipratropium (Duoneb 3 Mg/0.5 Mg (3 Ml) Ud) 3 ml IH RQ4 PRN PRN Reason: Shortness of Breath Arformoterol Tartrate (Brovana) 15 mcg INH RQ12@1000,2200 [facility] Last Admin: 10/30/18 21:00 Dose: 15 mcg Artificial Tears (Artificial Tears) 1 ml OU BID [facility] Last Admin: 10/31/18 09:06 Dose: 1 drop Clonazepam (Klonopin) 0.5 mg PO BID [facility] Last Admin: 10/31/18 10:29 Dose: 0.5 mg Colchicine (Colocrys) 0.6 mg PO BID [facility] Last Admin: 10/31/18 09:04 Dose: 0.6 mg Dextrose (Dextrose 50% Inj) 0 ml IVP .STAT PRN; Protocol PRN Reason: Hypoglycemia Protocol Dextrose (Glutose 15) 0 gm PO .ONCE PRN; Protocol PRN Reason: Hypoglycemia Protocol Diazepam (Valium) 5 mg PO BID [facility] Last Admin: 10/31/18 09:04 Dose: 5 mg Diltiazem HCl (Cardizem Cd) 180 mg PO TID [facility] Last Admin: 10/31/18 09:03 Dose: 180 mg Dronabinol (Marinol) 2.5 mg PO BID [facility] Ergocalciferol (Drisdol 50,000 Intl Units Cap) 1 cap PO Q7D [facility] Last Admin: 10/26/18 19:36 Dose: Not Given Escitalopram Oxalate (Lexapro) 5 mg PO DAILY [facility] Last Admin: 10/31/18 09:04 Dose: 5 mg Famotidine (Pepcid) 20 mg IVP DAILY [facility] Last Admin: 10/31/18 09:05 Dose: 20 mg Fentanyl (Duragesic) 1 patch TD Q72H [facility] Ferrous Gluconate (Fergon) 324 mg PO TID [facility] Last Admin: 10/31/18 09:04 Dose: 324 mg Furosemide (Lasix) 20 mg IVP DAILY [facility] Last Admin: 10/31/18 09:05 Dose: 20 mg Glucagon (Glucagen Diagnostic Kit) 0 mg IM .STAT PRN; Protocol PRN Reason: Hypoglycemia Protocol Metronidazole (Flagyl) 500 mg in 100 mls @ 100 mls/hr IVPB Q8H [facility]; Protocol Last Admin: 10/31/18 04:07 Dose: 100 mls/hr Insulin Aspart (Novolog) 12 unit SC AC [facility] Last Admin: 10/31/18 08:29 Dose: 12 units Insulin Glargine (Lantus) 24 unit SC HS [facility] Last Admin: 10/30/18 22:10 Dose: 24 u Insulin Human Regular (Novolin R) 0 unit SC ACHS [facility]; Protocol Last Admin: 10/31/18 08:29 Dose: 10 units Levothyroxine Sodium (Synthroid) 100 mcg PO DAILY@0630 [facility] Last Admin: 10/31/18 06:31 Dose: 100 mcg Methylprednisolone (Solu-Medrol) 40 mg IVP Q12H [facility] Last Admin: 10/31/18 08:42 Dose: 40 mg Nystatin (Nystop Topical Powder) 1 applic TOP BID [facility] Last Admin: 10/31/18 09:09 Dose: 1 applic Oxycodone/Acetaminophen (Percocet 5/325 Mg Tab) 1 tab PO Q4 PRN PRN Reason: Pain, moderate (4-7) Stop: 11/02/18 20:01 Last Admin: 10/30/18 19:12 Dose: 1 tab Rivaroxaban (Xarelto) 20 mg PO DAILY [facility] Last Admin: 10/31/18 09:04 Dose: 20 mg Saccharomyces Boulardii (Florastor) 250 mg PO BID [facility] Last Admin: 10/31/18 09:04 Dose: 250 mg Sertraline HCl (Zoloft) 50 mg PO DAILY [facility] Last Admin: 10/31/18 09:04 Dose: 50 mg Sitagliptin Phosphate (Januvia) 100 mg PO DAILY [facility] Last Admin: 10/31/18 09:03 Dose: 100 mg Trazodone HCl (Desyrel) 50 mg PO HS PRN PRN Reason: Sleep Last Admin: 10/30/18 22:08 Dose: 50 mg Trimethobenzamide HCl (Tigan) 200 mg IM Q8 PRN PRN Reason: Nausea/Vomiting Vancomycin HCl (Vancocin 250mg Capsule) 250 mg PO QID [facility] Last Admin: 10/30/18 22:08 Dose: 250 mg Vitamin B Complex/Vit C/Folic Acid (Nephro-Lavinia) 1 tab PO DAILY [facility] Last Admin: 10/31/18 09:04 Dose: 1 tab - Labs Labs: 10/31/18 07:36 10/31/18 07:36 PT 16.2 SECONDS (9.7-12.2) H 10/26/18 13:10 INR 1.5 10/26/18 13:10 APTT 29.0 SECONDS (21-34) 10/26/18 13:10 - Additional Findings Additional findings: - Constitutional Appears: Cachetic, No Acute Distress - Head Exam Head Exam: ATRAUMATIC, NORMOCEPHALIC - Respiratory Exam Respiratory Exam: Clear to Ausculation Bilateral. absent: Accessory Muscle Use, Rales, Rhonchi, Wheezes, Respiratory Distress - Cardiovascular Exam Cardiovascular Exam: REGULAR RHYTHM, +S1, +S2. absent: Gallop, Rubs, Murmur - GI/Abdominal Exam GI & Abdominal Exam: Soft, Normal Bowel Sounds. absent: Distended, Firm, Guarding, Rigid, Tenderness, Organomegaly - Extremities Exam Extremities Exam: absent: Pedal Edema, Tenderness - Neurological Exam Neurological Exam: Alert, Awake, Oriented x3 - Psychiatric Exam Psychiatric exam: Normal Affect, Normal Mood - Skin Skin Exam: Dry, Intact, Normal Color, Warm Assessment and Plan - Assessment and Plan (Free Text) Assessment: (1) Sepsis Secondary to healthcare acquired pneumonia Paged by ARNULFO Cr on 10/31/18, notified preliminary blood culture gram positive val Consultation: - Dr. Anabel TORO---> help appreciated - Pulm, Dr. Dickerson consulted Labs/Vitals: - Blood and urine cultures negative Imaging: Chest CT without contrast: Worsening airspace consolidative changes seen in the bilateral lower lobes; left greater than right. This may be the sequelae of acute infectious changes. Clinical correlation. Post treatment interval Medications: - Zosyn 3.375gm Q8H (started 10/31) - Vancomycin 1gm IV daily (Received 2 doses- 10/26 & 10/27) - Azithromycin 500mg IVPB daily completed - Florastor 250mg PO BID (2) SVT (supraventricular tachycardia) Consultation: * Buyer Assistant, Dr. Pineda---> Help appreciated History of Tachycardia * CLINICAL APPLICATION SPECIALIST at 11:00pm 10/27/18 for episode of SVT * Cardizem 180 mg po will be increased to TID (3) Elevated troponin Consultation: * Buyer AssistantDr. Pineda---> Help appreciated * No ST changes * No intervention at this point. Medical management (4) Clostridium difficile infection Consultation: Dr. Anabel TORO---> help appreciated Labs: C-difficle toxin (10/27/18): Positive * This was checked due known exposure at the retirement prior to admission Initial ova/parasite cultures negative. will repeat 2 more times Medications: * Flagyl 500mg IV Q8H (Initiated 10/28/18) * Zosyn 3.375gm IV Q6H completed * Florastor 250mg PO BID As per nursing, patient has not had an episode of diarrhea on her shift for the past 2 days (5) Pancreatic cancer metastasized to liver Procedure (10/11/18): Findings: Metastasis to the liver, grossly single nodule. Cystic lesion and harden pancreas. - Pathology: Adenocarcinoma, favor pancreatico-Biliary Labs and imaging: - CEA: 42.5, CA19-9: 1980, CA125: 36.2 - Abdomen/Pelvic CT: Heterogeneous hyperdense pancreatic mass measuring approximately 2.7 x 2.5 cm at the pancreatic body/tail. Ectatic dilated pancreatic duct. Additional cystic heterogeneous focus measuring approximately 15 x 14 mm is noted at the superior aspect of the pancreas. Appearance worrisome for malignant neoplasm. Wall thickening involving the 2nd portion of the duodenum of uncertain significance; considerations include infectious, inflammatory, or malignant etiologies. Correlate clinically and recommend further evaluation with direct visualization if indicated. Small pelvic free fluid Marinol 2.5mg po BID Fentanyl 25mcg TD Q72hr (6) CHF (congestive heart failure) on admission: - BNP:[id number] Imaging: - Chest X-ray (10/26/18): Findings are concerning for developing congestive heart failure Medication: - Lasix 20mg IV daily (7) Diabetes mellitus HgbA1C (09/07/18): 9.0 Accuchecks ISS- High dose Novolog 12 units AC Lantus 24units SC HS Glipizide 10mg PO BID Januvia 100mg PO daily Hypoglycemia protocol (8) Hypothyroid - TSH/Free T4 (09/07/18): 9.5/0.30 - Continue Synthroid 100mcg PO daily (9) History of DVT (deep vein thrombosis) - Continue Xarelto 20mg PO daily (10) Gout Colchicine 0.6mg PO BID (11) Chronic obstructive pulmonary disease w/ acute lower respiratory infxn Consultation: * Pulmonology, Dr. Dickerson. Per recs will taper down steroids Imaging: Chest CT without contrast: Worsening airspace consolidative changes seen in the bilateral lower lobes; left greater than right. This may be the sequelae of acute infectious changes. Clinical correlation. Post treatment interval Medications: -Azithromycin 500mg IVPB daily (stared 10/27/18) -Duoneb 3ml IH RQ4 PRN for shortness of breath - Brovana 15mcg INH RQ12H - Solumedrol 40mg IVP changed to Q12 - BiPAP continuos - Florastor 250mg PO BID (12) History of anemia H/H stable - Fergon 324mg PO TID (13) Ulcer Sacral; stage 2 Wound care consult - Recommendation for use of hydrogen peroxide - Turn Q2H (14) Intertrigo -Started Nystatin Powder BID (15) Psychiatric disturbance Depression and anxiety Consultation * Psychiatry, Dr. Dexter----> Help appreciated Medications: * Clonazepam 0.5mg PO BID * Zoloft 50mg PO daily (16) Electrolyte disturbance Resolved Hypomagnesemia and hypokalemia * Repleted appropriately * Continue to monitor with am labs (17) Fibromyalgia -Home medication: Diazepam 5mg PO BID -Percocet 5/325mg 2 tab Q6H prn for pain (18) Prophylactic measure -GI: Pepcid 20mg IV daily - DVT: Xarelto 20mg PO daily (Held) - PT/OT - Palliative care consulted to discuss goals of care: Patient is now DNR/DNI; POLST form signed; refer to patient's chart Case discussed with attending physician Dr. Gutierres
--- NOTE | 2018-10-31 13:37 | CP.PCM.PN ---
Subjective - Date & Time of Evaluation Date of Evaluation: 10/31/18 Time of Evaluation: 09:00 - Subjective Subjective: weak and tearful very sad but accepting denies diarrhea no fever pain controlled Objective - Vital Signs/Intake and Output Vital Signs (last 24 hours): Temp Pulse Resp BP Pulse Ox 99 F 110 H 24 148/85 98 10/31/18 08:00 10/31/18 11:18 10/31/18 08:00 10/31/18 09:09 10/31/18 11:18 Intake and Output: 10/31/18 10/31/18 06:59 18:59 Output Total 450 Balance -450 - Medications Medications: Current Medications Albuterol/Ipratropium (Duoneb 3 Mg/0.5 Mg (3 Ml) Ud) 3 ml IH RQ4 PRN PRN Reason: Shortness of Breath Arformoterol Tartrate (Brovana) 15 mcg INH RQ12@1000,2200 [facility] Last Admin: 10/30/18 21:00 Dose: 15 mcg Artificial Tears (Artificial Tears) 1 ml OU BID [facility] Last Admin: 10/31/18 09:06 Dose: 1 drop Clonazepam (Klonopin) 0.5 mg PO BID [facility] Last Admin: 10/31/18 10:29 Dose: 0.5 mg Colchicine (Colocrys) 0.6 mg PO BID [facility] Last Admin: 10/31/18 09:04 Dose: 0.6 mg Dextrose (Dextrose 50% Inj) 0 ml IVP .STAT PRN; Protocol PRN Reason: Hypoglycemia Protocol Dextrose (Glutose 15) 0 gm PO .ONCE PRN; Protocol PRN Reason: Hypoglycemia Protocol Diazepam (Valium) 5 mg PO BID [facility] Last Admin: 10/31/18 09:04 Dose: 5 mg Diltiazem HCl (Cardizem Cd) 180 mg PO TID [facility] Last Admin: 10/31/18 09:03 Dose: 180 mg Dronabinol (Marinol) 2.5 mg PO BID [facility] Ergocalciferol (Drisdol 50,000 Intl Units Cap) 1 cap PO Q7D [facility] Last Admin: 10/26/18 19:36 Dose: Not Given Escitalopram Oxalate (Lexapro) 5 mg PO DAILY [facility] Last Admin: 10/31/18 09:04 Dose: 5 mg Famotidine (Pepcid) 20 mg IVP DAILY [facility] Last Admin: 10/31/18 09:05 Dose: 20 mg Fentanyl (Duragesic) 1 patch TD Q72H [facility] Last Admin: 10/31/18 12:15 Dose: 1 patch Ferrous Gluconate (Fergon) 324 mg PO TID [facility] Last Admin: 10/31/18 09:04 Dose: 324 mg Furosemide (Lasix) 20 mg IVP DAILY [facility] Last Admin: 10/31/18 09:05 Dose: 20 mg Glucagon (Glucagen Diagnostic Kit) 0 mg IM .STAT PRN; Protocol PRN Reason: Hypoglycemia Protocol Metronidazole (Flagyl) 500 mg in 100 mls @ 100 mls/hr IVPB Q8H [facility]; Protocol Last Admin: 10/31/18 12:43 Dose: 100 mls/hr Azithromycin 500 mg/ Sodium (Chloride) 250 mls @ 167 mls/hr IVPB Q24H [facility]; Protocol Insulin Aspart (Novolog) 12 unit SC AC [facility] Last Admin: 10/31/18 12:24 Dose: 12 units Insulin Glargine (Lantus) 24 unit SC HS [facility] Last Admin: 10/30/18 22:10 Dose: 24 u Insulin Human Regular (Novolin R) 0 unit SC ACHS [facility]; Protocol Last Admin: 10/31/18 12:24 Dose: 10 units Levothyroxine Sodium (Synthroid) 100 mcg PO DAILY@0630 [facility] Last Admin: 10/31/18 06:31 Dose: 100 mcg Methylprednisolone (Solu-Medrol) 40 mg IVP Q12H [facility] Last Admin: 10/31/18 08:42 Dose: 40 mg Nystatin (Nystop Topical Powder) 1 applic TOP BID [facility] Last Admin: 10/31/18 09:09 Dose: 1 applic Oxycodone/Acetaminophen (Percocet 5/325 Mg Tab) 1 tab PO Q4 PRN PRN Reason: Pain, moderate (4-7) Stop: 11/02/18 20:01 Last Admin: 10/30/18 19:12 Dose: 1 tab Rivaroxaban (Xarelto) 20 mg PO DAILY [facility] Last Admin: 10/31/18 09:04 Dose: 20 mg Saccharomyces Boulardii (Florastor) 250 mg PO BID [facility] Last Admin: 10/31/18 09:04 Dose: 250 mg Sertraline HCl (Zoloft) 50 mg PO DAILY [facility] Last Admin: 10/31/18 09:04 Dose: 50 mg Sitagliptin Phosphate (Januvia) 100 mg PO DAILY [facility] Last Admin: 10/31/18 09:03 Dose: 100 mg Trazodone HCl (Desyrel) 50 mg PO HS PRN PRN Reason: Sleep Last Admin: 10/30/18 22:08 Dose: 50 mg Trimethobenzamide HCl (Tigan) 200 mg IM Q8 PRN PRN Reason: Nausea/Vomiting Vancomycin HCl (Vancocin 250mg Capsule) 250 mg PO QID [facility] Last Admin: 10/31/18 10:50 Dose: 250 mg Vitamin B Complex/Vit C/Folic Acid (Nephro-Lavinia) 1 tab PO DAILY [facility] Last Admin: 10/31/18 09:04 Dose: 1 tab - Labs Labs: 10/31/18 07:36 10/31/18 07:36 PT 16.2 SECONDS (9.7-12.2) H 10/26/18 13:10 INR 1.5 10/26/18 13:10 APTT 29.0 SECONDS (21-34) 10/26/18 13:10 - Constitutional Appears: Non-toxic, No Acute Distress, Chronically Ill - Head Exam Head Exam: ATRAUMATIC, NORMAL INSPECTION, NORMOCEPHALIC - Eye Exam Eye Exam: EOMI, Normal appearance, PERRL Pupil Exam: NORMAL ACCOMODATION, PERRL - ENT Exam ENT Exam: Mucous Membranes Moist, Normal Exam - Neck Exam Neck Exam: Full ROM, Normal Inspection. absent: Lymphadenopathy - Respiratory Exam Respiratory Exam: Decreased Breath Sounds, Prolonged Expiratory Phase - Cardiovascular Exam Cardiovascular Exam: REGULAR RHYTHM, +S1, +S2. absent: Murmur - GI/Abdominal Exam GI & Abdominal Exam: Distended, Soft, Tenderness, Diminished Bowel Sounds - Rectal Exam Rectal Exam: Deferred - Exam Exam: NORMAL INSPECTION - Extremities Exam Extremities Exam: Full ROM, Normal Capillary Refill, Normal Inspection. absent: Joint Swelling, Pedal Edema - Back Exam Back Exam: NORMAL INSPECTION - Neurological Exam Neurological Exam: Alert, Awake, CN II-XII Intact, Oriented x3. absent: Normal Gait Neuro motor strength exam: Left Upper Extremity: 3, Right Upper Extremity: 3, Left Lower Extremity: 3, Right Lower Extremity: 3 - Psychiatric Exam Psychiatric exam: Depressed - Skin Skin Exam: Dry, Intact, Normal Color, Warm Assessment and Plan (1) Chr obstructive pulmonary disease w/ acute lower respiratory infxn Status: Acute (2) Clostridium difficile infection Status: Acute (3) Diabetes mellitus Status: Acute (4) Fibromyalgia Status: Acute (5) History of anemia Status: Acute (6) Pancreatic cancer Status: Acute (7) Pancreatic cancer metastasized to liver Status: Acute (8) Respiratory insufficiency/failure Status: Acute - Assessment and Plan (Free Text) Assessment: no new positive cultures poor prognosis palliative care on board
[2018-10-31] MEDS: Azithromycin 500 MG in Sodium Chloride 0.9% 250 ML IVPB SCH (14:10)
[2018-10-31] MEDS: Piperacill/Tazo 3.375gm in Dex 3.375 GM/50 ML BAG IVPB SCH (17:12)
--- NOTE | 2018-10-31 17:37 | CP.PCM.PN ---
Subjective - Date & Time of Evaluation Date of Evaluation: 10/31/18 Time of Evaluation: 10:00 - Subjective Subjective: Patient seen and examined On BiPAP at night and as needed awake and responsive Breathing better Afebrile Objective - Vital Signs/Intake and Output Vital Signs (last 24 hours): Temp Pulse Resp BP Pulse Ox 98.6 F 118 H 29 H 149/71 96 10/31/18 16:00 10/31/18 16:00 10/31/18 16:00 10/31/18 16:00 10/31/18 16:00 Intake and Output: 10/31/18 10/31/18 06:59 18:59 Output Total 450 1000 Balance -450 -1000 - Medications Medications: Current Medications Albuterol/Ipratropium (Duoneb 3 Mg/0.5 Mg (3 Ml) Ud) 3 ml IH RQ4 PRN PRN Reason: Shortness of Breath Arformoterol Tartrate (Brovana) 15 mcg INH RQ12@1000,2200 [facility] Last Admin: 10/30/18 21:00 Dose: 15 mcg Artificial Tears (Artificial Tears) 1 ml OU BID [facility] Last Admin: 10/31/18 17:15 Dose: 1 drop Clonazepam (Klonopin) 0.5 mg PO BID [facility] Last Admin: 10/31/18 17:13 Dose: 0.5 mg Colchicine (Colocrys) 0.6 mg PO BID [facility] Last Admin: 10/31/18 17:15 Dose: 0.6 mg Dextrose (Dextrose 50% Inj) 0 ml IVP .STAT PRN; Protocol PRN Reason: Hypoglycemia Protocol Dextrose (Glutose 15) 0 gm PO .ONCE PRN; Protocol PRN Reason: Hypoglycemia Protocol Diazepam (Valium) 5 mg PO BID [facility] Last Admin: 10/31/18 17:13 Dose: 5 mg Diltiazem HCl (Cardizem Cd) 180 mg PO TID [facility] Last Admin: 10/31/18 17:13 Dose: 180 mg Dronabinol (Marinol) 2.5 mg PO BID [facility] Last Admin: 10/31/18 17:21 Dose: 2.5 mg Ergocalciferol (Drisdol 50,000 Intl Units Cap) 1 cap PO Q7D [facility] Last Admin: 10/26/18 19:36 Dose: Not Given Escitalopram Oxalate (Lexapro) 5 mg PO DAILY [facility] Last Admin: 10/31/18 09:04 Dose: 5 mg Famotidine (Pepcid) 20 mg IVP DAILY [facility] Last Admin: 10/31/18 09:05 Dose: 20 mg Fentanyl (Duragesic) 1 patch TD Q72H [facility] Last Admin: 10/31/18 12:15 Dose: 1 patch Ferrous Gluconate (Fergon) 324 mg PO TID [facility] Last Admin: 10/31/18 17:13 Dose: 324 mg Furosemide (Lasix) 20 mg IVP DAILY [facility] Last Admin: 10/31/18 09:05 Dose: 20 mg Glucagon (Glucagen Diagnostic Kit) 0 mg IM .STAT PRN; Protocol PRN Reason: Hypoglycemia Protocol Metronidazole (Flagyl) 500 mg in 100 mls @ 100 mls/hr IVPB Q8H [facility]; Protocol Last Admin: 10/31/18 12:43 Dose: 100 mls/hr Azithromycin 500 mg/ Sodium (Chloride) 250 mls @ 167 mls/hr IVPB Q24H [facility]; Protocol Last Admin: 10/31/18 14:10 Dose: 167 mls/hr Piperacillin Sod/Tazobactam Sod (Zosyn 3.375 Gm Iv Premix) 3.375 gm in 50 mls @ 100 mls/hr IVPB Q8H [facility]; Protocol Last Admin: 10/31/18 17:12 Dose: 100 mls/hr Insulin Aspart (Novolog) 12 unit SC AC [facility] Last Admin: 10/31/18 17:14 Dose: 12 units Insulin Glargine (Lantus) 24 unit SC HS [facility] Last Admin: 10/30/18 22:10 Dose: 24 u Insulin Human Regular (Novolin R) 0 unit SC ACHS [facility]; Protocol Last Admin: 10/31/18 17:14 Dose: 8 units Levothyroxine Sodium (Synthroid) 100 mcg PO DAILY@0630 [facility] Last Admin: 10/31/18 06:31 Dose: 100 mcg Methylprednisolone (Solu-Medrol) 40 mg IVP Q12H [facility] Last Admin: 10/31/18 08:42 Dose: 40 mg Nystatin (Nystop Topical Powder) 1 applic TOP BID [facility] Last Admin: 10/31/18 17:28 Dose: 1 applic Oxycodone/Acetaminophen (Percocet 5/325 Mg Tab) 1 tab PO Q4 PRN PRN Reason: Pain, moderate (4-7) Stop: 11/02/18 20:01 Last Admin: 10/30/18 19:12 Dose: 1 tab Rivaroxaban (Xarelto) 20 mg PO DAILY [facility] Last Admin: 10/31/18 09:04 Dose: 20 mg Saccharomyces Boulardii (Florastor) 250 mg PO BID [facility] Last Admin: 10/31/18 17:13 Dose: 250 mg Sertraline HCl (Zoloft) 50 mg PO DAILY [facility] Last Admin: 10/31/18 09:04 Dose: 50 mg Sitagliptin Phosphate (Januvia) 100 mg PO DAILY [facility] Last Admin: 10/31/18 09:03 Dose: 100 mg Trazodone HCl (Desyrel) 50 mg PO HS PRN PRN Reason: Sleep Last Admin: 10/30/18 22:08 Dose: 50 mg Trimethobenzamide HCl (Tigan) 200 mg IM Q8 PRN PRN Reason: Nausea/Vomiting Vancomycin HCl (Vancocin 250mg Capsule) 250 mg PO QID [facility] Last Admin: 10/31/18 17:12 Dose: 250 mg Vitamin B Complex/Vit C/Folic Acid (Nephro-Lavinia) 1 tab PO DAILY [facility] Last Admin: 10/31/18 09:04 Dose: 1 tab - Labs Labs: 10/31/18 07:36 10/31/18 07:36 PT 16.2 SECONDS (9.7-12.2) H 10/26/18 13:10 INR 1.5 10/26/18 13:10 APTT 29.0 SECONDS (21-34) 10/26/18 13:10 - Head Exam Head Exam: ATRAUMATIC, NORMOCEPHALIC - ENT Exam ENT Exam: Mucous Membranes Moist - Neck Exam Neck Exam: Normal Inspection - Respiratory Exam Respiratory Exam: Rales - Cardiovascular Exam Cardiovascular Exam: REGULAR RHYTHM Assessment and Plan (1) Respiratory insufficiency/failure Assessment & Plan: Continue antibiotics for pneumonia Continue nebulizer treatment Followup chest x-ray BiPAP as needed Status: Acute (2) Chr obstructive pulmonary disease w/ acute lower respiratory infxn Status: Acute (3) Pancreatic cancer metastasized to liver Status: Acute
[2018-10-31] MEDS: Oxycodone/Acetaminophen 5/325 mg Tab PO PRN (19:57)
[2018-10-31] MEDS ORDERED: Oxycodone/Acetaminophen 5/325 mg Tab PO STA (21:07)
[2018-10-31] MEDS: Albuterol-Ipratrop 3 mg / 0.5 (3 ml) UD IH PRN (21:16)
[2018-10-31] MEDS: Arformoterol 15 mcg/2 ml Inh Sol INH SCH (21:16)
[2018-10-31] MEDS: (Lantus) Insulin Glargine, Recombinant SC SCH (21:22)
[2018-11-01] MEDS: Piperacill/Tazo 3.375gm in Dex 3.375 GM/50 ML BAG IVPB SCH ×3 (01:06→18:13)
[2018-11-01] MEDS: metroNIDAZOLE IV 500 mg/100 ml 500 MG/100 ML BAG IVPB SCH ×3 (04:45→21:51)
[2018-11-01] MEDS: Levothyroxine 100 MCG TAB PO SCH (06:57)
[2018-11-01 08:19] LABS: BASO % 0.2 % (0.0-2.0); EOS % 0.3 % (0.0-4.0); HEMOGLOBIN 9.7 g/dL (11.0-16.0); LYMPH # 0.7 K/uL (1.0-4.3); LYMPH % 6.7 % (20.0-40.0); MEAN CORPUSCULAR HEMOGLOBIN 24.3 pg (27.0-31.0); MEAN CORPUSCULAR HGB CONC 31.1 g/dL (33.0-37.0); MONO # 0.7 K/uL (0.0-0.8); NEUT # 9.7 K/uL (1.8-7.0); NEUT % 86.8 % (50.0-75.0); NRBC % 0.2 % (0.0-2.0); PLATELET COUNT 330 K/uL (130-400); RED CELL DISTRIBUTION WIDTH 21.7 % (11.5-14.5); WHITE BLOOD COUNT 11.2 K/uL (4.8-10.8)
[2018-11-01 08:33] LABS: ALB/GLOB RATIO 1.3 (1.0-2.1); ALBUMIN 2.9 g/dL (3.5-5.0); ALT/SGPT 89 U/L (9-52); AST/SGOT 42 U/L (14-36); BLOOD UREA NITROGEN 44 mg/dL (7-17); CALCIUM 8.6 mg/dl (8.6-10.4); GFR NON-AFRICAN AMERICAN > 60
[2018-11-01 09:08] LABS: LYMPHOCYTE 8 % (20-40); MONOCYTE 6 % (0-10); NEUTROPHIL 86 % (50-75); TOTAL CELLS COUNTED 100
[2018-11-01 09:09] LABS: ANISOCYTOSIS SLIGHT; HYPOCHROMIC SLIGHT; OVALOCYTES SLIGHT; PLATELET ESTIMATE NORMAL (NORMAL); POIKILOCYTOSIS SLIGHT; TARGET CELLS SLIGHT; TEARDROP CELLS SLIGHT
[2018-11-01 09:10] LABS: BURR CELLS SLIGHT
[2018-11-01 09:12] LABS: MICROCYTOSIS SLIGHT
[2018-11-01 09:13] LABS: GIANT PLATELETS PRESENT; LARGE PLATELETS PRESENT
[2018-11-01] MEDS: (Novolin R) Insulin Human Regular 100 units/ml vial SC SCH ×5 (09:21→21:55)
[2018-11-01] MEDS: (Novolog) Insulin Aspart, Recombinant 100 u/ml 10 ml vial SC SCH ×4 (09:22→18:04)
[2018-11-01] MEDS: diltiaZEM 180 mg/24 Hours CD Cap PO SCH ×3 (09:39→18:03)
[2018-11-01] MEDS: MethylPREDNISolone 40 mg Vial IVP SCH ×2 (09:43→21:57)
[2018-11-01] MEDS: Saccharomyces Boulardi 250 mg Cap PO SCH ×2 (09:44→18:03)
[2018-11-01] MEDS: Multivitamin Vitamin B Complex (Nephro-Vite) Tab PO SCH (09:45)
[2018-11-01] MEDS: Aritificial Tears (15ml) OU SCH ×3 (09:45→18:03)
[2018-11-01] MEDS: Vancomycin Hydrochloride 250 mg Capsule (Oral) PO SCH ×4 (09:46→21:57)
[2018-11-01] MEDS: Oxycodone/Acetaminophen 5/325 mg Tab PO PRN ×2 (11:22→21:52)
--- NOTE | 2018-11-01 12:49 | CARD ---
APPROVED REPORT Date of service: 10/30/2018 EKG Measurement Heart [id number] <Conclusion> Supraventricular tachycardia Nonspecific ST and T wave abnormality Abnormal ECG
[2018-11-01] MEDS: Azithromycin 500 MG in Sodium Chloride 0.9% 250 ML IVPB SCH (13:37)
[2018-11-01] MEDS: Arformoterol 15 mcg/2 ml Inh Sol INH SCH ×2 (13:42→21:00)
--- NOTE | 2018-11-01 13:42 | CP.PCM.PN ---
Subjective - Date & Time of Evaluation Date of Evaluation: 11/01/18 Time of Evaluation: 07:40 - Subjective Subjective: Medicine progress note ( Dr. Gutierres's service) Patient was seen and examined at bedside while on BiPAP. Patient denies any acute issues or complaints at this time. Objective - Vital Signs/Intake and Output Vital Signs (last 24 hours): Temp Pulse Resp BP Pulse Ox 98.6 F 110 H 20 143/84 95 11/01/18 08:22 11/01/18 08:22 11/01/18 08:22 11/01/18 09:24 11/01/18 08:22 Intake and Output: 11/01/18 11/01/18 06:59 18:59 Output Total 350 Balance -350 - Medications Medications: Current Medications Albuterol/Ipratropium (Duoneb 3 Mg/0.5 Mg (3 Ml) Ud) 3 ml IH RQ4 PRN PRN Reason: Shortness of Breath Arformoterol Tartrate (Brovana) 15 mcg INH RQ12@1000,2200 [facility] Last Admin: 10/31/18 21:16 Dose: 15 mcg Artificial Tears (Artificial Tears) 1 ml OU BID [facility] Last Admin: 11/01/18 10:03 Dose: Not Given Clonazepam (Klonopin) 0.5 mg PO BID [facility] Last Admin: 11/01/18 09:39 Dose: 0.5 mg Colchicine (Colocrys) 0.6 mg PO BID [facility] Last Admin: 11/01/18 09:46 Dose: 0.6 mg Dextrose (Dextrose 50% Inj) 0 ml IVP .STAT PRN; Protocol PRN Reason: Hypoglycemia Protocol Dextrose (Glutose 15) 0 gm PO .ONCE PRN; Protocol PRN Reason: Hypoglycemia Protocol Diazepam (Valium) 5 mg PO BID [facility] Last Admin: 11/01/18 09:38 Dose: 5 mg Diltiazem HCl (Cardizem Cd) 180 mg PO TID [facility] Last Admin: 11/01/18 13:34 Dose: 180 mg Dronabinol (Marinol) 2.5 mg PO BID [facility] Last Admin: 11/01/18 09:39 Dose: 2.5 mg Ergocalciferol (Drisdol 50,000 Intl Units Cap) 1 cap PO Q7D [facility] Last Admin: 10/26/18 19:36 Dose: Not Given Escitalopram Oxalate (Lexapro) 5 mg PO DAILY [facility] Last Admin: 11/01/18 09:45 Dose: 5 mg Famotidine (Pepcid) 20 mg IVP DAILY [facility] Last Admin: 11/01/18 09:24 Dose: 20 mg Fentanyl (Duragesic) 1 patch TD Q72H [facility] Last Admin: 10/31/18 12:15 Dose: 1 patch Ferrous Gluconate (Fergon) 324 mg PO TID [facility] Last Admin: 11/01/18 13:34 Dose: 324 mg Furosemide (Lasix) 20 mg IVP DAILY [facility] Last Admin: 11/01/18 09:24 Dose: 20 mg Glucagon (Glucagen Diagnostic Kit) 0 mg IM .STAT PRN; Protocol PRN Reason: Hypoglycemia Protocol Metronidazole (Flagyl) 500 mg in 100 mls @ 100 mls/hr IVPB Q8H [facility]; Protocol Last Admin: 11/01/18 12:21 Dose: 100 mls/hr Azithromycin 500 mg/ Sodium (Chloride) 250 mls @ 167 mls/hr IVPB Q24H [facility]; Protocol Last Admin: 10/31/18 14:10 Dose: 167 mls/hr Piperacillin Sod/Tazobactam Sod (Zosyn 3.375 Gm Iv Premix) 3.375 gm in 50 mls @ 100 mls/hr IVPB Q8H [facility]; Protocol Last Admin: 11/01/18 09:23 Dose: 100 mls/hr Insulin Aspart (Novolog) 12 unit SC AC [facility] Last Admin: 11/01/18 13:20 Dose: 12 units Insulin Glargine (Lantus) 24 unit SC HS [facility] Last Admin: 10/31/18 21:22 Dose: 24 u Insulin Human Regular (Novolin R) 0 unit SC ACHS [facility]; Protocol Last Admin: 11/01/18 13:20 Dose: 12 units Levothyroxine Sodium (Synthroid) 100 mcg PO DAILY@0630 [facility] Last Admin: 11/01/18 06:57 Dose: 100 mcg Methylprednisolone (Solu-Medrol) 40 mg IVP Q12H [facility] Last Admin: 11/01/18 09:43 Dose: 40 mg Nystatin (Nystop Topical Powder) 1 applic TOP BID [facility] Last Admin: 11/01/18 12:25 Dose: Not Given Oxycodone/Acetaminophen (Percocet 5/325 Mg Tab) 2 tab PO Q4H PRN PRN Reason: Pain, severe (8-10) Stop: 11/03/18 21:05 Last Admin: 11/01/18 11:22 Dose: 2 tab Rivaroxaban (Xarelto) 20 mg PO DAILY [facility] Last Admin: 11/01/18 09:46 Dose: 20 mg Saccharomyces Boulardii (Florastor) 250 mg PO BID [facility] Last Admin: 11/01/18 09:44 Dose: 250 mg Sertraline HCl (Zoloft) 50 mg PO DAILY [facility] Last Admin: 11/01/18 09:45 Dose: 50 mg Sitagliptin Phosphate (Januvia) 100 mg PO DAILY [facility] Last Admin: 11/01/18 09:44 Dose: 100 mg Trazodone HCl (Desyrel) 50 mg PO HS PRN PRN Reason: Sleep Last Admin: 10/31/18 21:21 Dose: 50 mg Trimethobenzamide HCl (Tigan) 200 mg IM Q8 PRN PRN Reason: Nausea/Vomiting Vancomycin HCl (Vancocin 250mg Capsule) 250 mg PO QID [facility] Last Admin: 11/01/18 09:46 Dose: 250 mg Vitamin B Complex/Vit C/Folic Acid (Nephro-Lavinia) 1 tab PO DAILY [facility] Last Admin: 11/01/18 09:45 Dose: 1 tab - Labs Labs: 11/01/18 08:09 11/01/18 08:09 PT 16.2 SECONDS (9.7-12.2) H 10/26/18 13:10 INR 1.5 10/26/18 13:10 APTT 29.0 SECONDS (21-34) 10/26/18 13:10 - Constitutional Appears: No Acute Distress - Head Exam Head Exam: ATRAUMATIC - Eye Exam Eye Exam: EOMI - ENT Exam ENT Exam: Mucous Membranes Moist - Respiratory Exam Respiratory Exam: NORMAL BREATHING PATTERN Additional comments: On BiPAP - Cardiovascular Exam Cardiovascular Exam: Tachycardia, REGULAR RHYTHM, +S1, +S2 - GI/Abdominal Exam GI & Abdominal Exam: Soft, Normal Bowel Sounds. absent: Distended, Firm, Guarding, Rigid, Tenderness - Extremities Exam Extremities Exam: Normal Inspection Additional comments: Pressure ulcer boots on - Neurological Exam Neurological Exam: Alert, Awake, Oriented x3 - Psychiatric Exam Psychiatric exam: Depressed, Flat Affect - Skin Skin Exam: Normal Color Assessment and Plan (1) Sepsis Assessment & Plan: Secondary to healthcare acquired pneumonia and bacteremia Consultation: - ID, Dr. Little---> help appreciated Labs/Vitals: - On admission: WBC (11.9); downtrending - Tachycardia, Afebrile [id number] - BC (10/26/18): Positive for gram negative val (after 4-5 days) - UC (10/26/18): No growth Imaging: Chest CT without contrast: Worsening airspace consolidative changes seen in the bilateral lower lobes; left greater than right. This may be the sequelae of acute infectious changes. Clinical correlation. Post treatment interval Medications: - Vancomycin 1gm IV daily (Received 2 doses- 10/26 & 10/27) -Azithromycin 500mg IVPB daily (stared 10/27/18) - Zosyn 3.375gm IV Q8H ( started 10/31/18) - Florastor 250mg PO BID Status: Acute (2) SVT (supraventricular tachycardia) Assessment & Plan: Consultation: * Manager CoreDr. Pineda---> Help appreciated History of Tachycardia * [employer] at 11:00pm 10/27/18 for episode of SVT * Cardizem 180mg PO TID Status: Acute (3) Elevated troponin Assessment & Plan: onsultation: * Manager CoreDr. Pineda---> Help appreciated * No ST changes * No invasive intervention needed as per cardiology Status: Acute (4) Clostridium difficile infection Assessment & Plan: Consultation: Dr. Anabel TORO---> help appreciated Labs: C-difficle toxin (10/27/18): Positive * This was checked due known exposure at the group home prior to admission Medications: * Flagyl 500mg IV Q8H (Initiated 10/28/18) * Zosyn 3.375gm IV Q6H ( Initiated 10/26/18) * Florastor 250mg PO BID As per nursing, patient has not had an episode of diarrhea on her shift for the past 2 days Status: Acute (5) Pancreatic cancer metastasized to liver Assessment & Plan: Procedure (10/11/18): Findings: Metastasis to the liver, grossly single nodule. Cystic lesion and harden pancreas. - Pathology: Adenocarcinoma, favor pancreatico-Biliary Labs and imaging: - CEA: 42.5, CA19-9: 1980, CA125: 36.2 - Abdomen/Pelvic CT: Heterogeneous hyperdense pancreatic mass measuring approximately 2.7 x 2.5 cm at the pancreatic body/tail. Ectatic dilated pancreatic duct. Additional cystic heterogeneous focus measuring approximately 15 x 14 mm is noted at the superior aspect of the pancreas. Appearance worrisome for malignant neoplasm. Wall thickening involving the 2nd portion of the duodenum of uncertain significance; considerations include infectious, inflammatory, or malignant etiologies. Correlate clinically and recommend further evaluation with direct visualization if indicated. Small pelvic free fluid Status: Acute (6) CHF (congestive heart failure) Assessment & Plan: on admission: - BNP:[id number] Imaging: - Chest X-ray (10/26/18): Findings are concerning for developing congestive heart failure Medication: - Lasix 20mg IV daily Status: Chronic (7) Diabetes mellitus Assessment & Plan: HgbA1C (09/07/18): 9.0 Accuchecks ISS- High dose Novolog 12 units AC Lantus 24units SC HS Glipizide 10mg PO BID Januvia 100mg PO daily Hypoglycemia protocol Status: Acute (8) Hypothyroid Assessment & Plan: - TSH/Free T4 (09/07/18): 9.5/0.30 - Continue Synthroid 100mcg PO daily Status: Acute (9) History of DVT (deep vein thrombosis) Assessment & Plan: - Continue Xarelto 20mg PO daily Status: Acute (10) Gout Assessment & Plan: Colchicine 0.6mg PO BID Status: Acute (11) Chr obstructive pulmonary disease w/ acute lower respiratory infxn Assessment & Plan: Consultation: * Pulmonology, Dr. Dickerson Imaging: Chest CT without contrast: Worsening airspace consolidative changes seen in the bilateral lower lobes; left greater than right. This may be the sequelae of acute infectious changes. Clinical correlation. Post treatment interval Medications: -Azithromycin 500mg IVPB daily (stared 10/27/18) -Duoneb 3ml IH RQ4 PRN for shortness of breath - Brovana 15mcg INH RQ12H - Solumedrol 40mg IVP Q8H - BiPAP continuos - Florastor 250mg PO BID Status: Acute (12) History of anemia Assessment & Plan: H/H stable - Fergon 324mg PO TID Status: Acute (13) Ulcer Assessment & Plan: Sacral; stage 2 Wound care consult - Recommendation for use of hydrogen peroxide - Turn Q2H Status: Acute (14) Intertrigo Assessment & Plan: -Started Nystatin Powder BID Status: Acute (15) Psychiatric disturbance Assessment & Plan: Depression and anxiety Consultation * Psychiatry, Dr. Dexter----> Help appreciated Medications: * Clonazepam 0.5mg PO BID * Zoloft 50mg PO daily Status: Acute (16) Electrolyte disturbance Assessment & Plan: Hypomagnesemia and hypokalemia * Repleted appropriately * Continue to monitor with am labs Status: Acute (17) Fibromyalgia Assessment & Plan: -Home medication: Diazepam 5mg PO BID -Percocet 5/325mg 2 tab Q6H prn for pain Trazadone 50mg PO HS PRN Status: Acute (18) Prophylactic measure Assessment & Plan: -GI: Pepcid 20mg IV daily - DVT: Xarelto 20mg PO daily (Held) - PT/OT - Palliative care consulted to discuss goals of care: Patient is now DNR/DNI; POLST form signed; refer to patient's chart All plans and management discussed with Dr. Gutierres Status: Acute
--- NOTE | 2018-11-01 15:54 | CP.PCM.PN ---
Subjective - Date & Time of Evaluation Date of Evaluation: 11/01/18 Time of Evaluation: 11:00 - Subjective Subjective: Patient seen and examined Patient is awake and responsive Slowly improving BiPAP at night and as needed Afebrile Objective - Vital Signs/Intake and Output Vital Signs (last 24 hours): Temp Pulse Resp BP Pulse Ox 98 F 100 H 20 146/69 95 11/01/18 15:41 11/01/18 15:41 11/01/18 15:41 11/01/18 15:41 11/01/18 15:41 Intake and Output: 11/01/18 11/01/18 06:59 18:59 Intake Total 700 Output Total 350 600 Balance -350 100 - Medications Medications: Current Medications Albuterol/Ipratropium (Duoneb 3 Mg/0.5 Mg (3 Ml) Ud) 3 ml IH RQ4 PRN PRN Reason: Shortness of Breath Arformoterol Tartrate (Brovana) 15 mcg INH RQ12@1000,2200 [facility] Last Admin: 11/01/18 13:42 Dose: 15 mcg Artificial Tears (Artificial Tears) 1 ml OU BID [facility] Last Admin: 11/01/18 10:03 Dose: Not Given Clonazepam (Klonopin) 0.5 mg PO BID [facility] Last Admin: 11/01/18 09:39 Dose: 0.5 mg Colchicine (Colocrys) 0.6 mg PO BID [facility] Last Admin: 11/01/18 09:46 Dose: 0.6 mg Dextrose (Dextrose 50% Inj) 0 ml IVP .STAT PRN; Protocol PRN Reason: Hypoglycemia Protocol Dextrose (Glutose 15) 0 gm PO .ONCE PRN; Protocol PRN Reason: Hypoglycemia Protocol Diazepam (Valium) 5 mg PO BID [facility] Last Admin: 11/01/18 09:38 Dose: 5 mg Diltiazem HCl (Cardizem Cd) 180 mg PO TID [facility] Last Admin: 11/01/18 13:34 Dose: 180 mg Dronabinol (Marinol) 2.5 mg PO BID [facility] Last Admin: 11/01/18 09:39 Dose: 2.5 mg Ergocalciferol (Drisdol 50,000 Intl Units Cap) 1 cap PO Q7D [facility] Last Admin: 10/26/18 19:36 Dose: Not Given Escitalopram Oxalate (Lexapro) 5 mg PO DAILY [facility] Last Admin: 11/01/18 09:45 Dose: 5 mg Famotidine (Pepcid) 20 mg IVP DAILY [facility] Last Admin: 11/01/18 09:24 Dose: 20 mg Fentanyl (Duragesic) 1 patch TD Q72H [facility] Last Admin: 10/31/18 12:15 Dose: 1 patch Ferrous Gluconate (Fergon) 324 mg PO TID [facility] Last Admin: 11/01/18 13:34 Dose: 324 mg Furosemide (Lasix) 20 mg IVP DAILY [facility] Last Admin: 11/01/18 09:24 Dose: 20 mg Glucagon (Glucagen Diagnostic Kit) 0 mg IM .STAT PRN; Protocol PRN Reason: Hypoglycemia Protocol Metronidazole (Flagyl) 500 mg in 100 mls @ 100 mls/hr IVPB Q8H [facility]; Protocol Last Admin: 11/01/18 12:21 Dose: 100 mls/hr Azithromycin 500 mg/ Sodium (Chloride) 250 mls @ 167 mls/hr IVPB Q24H [facility]; Protocol Last Admin: 11/01/18 13:37 Dose: 167 mls/hr Piperacillin Sod/Tazobactam Sod (Zosyn 3.375 Gm Iv Premix) 3.375 gm in 50 mls @ 100 mls/hr IVPB Q8H [facility]; Protocol Last Admin: 11/01/18 09:23 Dose: 100 mls/hr Insulin Aspart (Novolog) 12 unit SC AC [facility] Last Admin: 11/01/18 13:20 Dose: 12 units Insulin Glargine (Lantus) 24 unit SC HS [facility] Last Admin: 10/31/18 21:22 Dose: 24 u Insulin Human Regular (Novolin R) 0 unit SC ACHS [facility]; Protocol Last Admin: 11/01/18 13:20 Dose: 12 units Levothyroxine Sodium (Synthroid) 100 mcg PO DAILY@0630 [facility] Last Admin: 11/01/18 06:57 Dose: 100 mcg Methylprednisolone (Solu-Medrol) 40 mg IVP Q12H [facility] Last Admin: 11/01/18 09:43 Dose: 40 mg Nystatin (Nystop Topical Powder) 1 applic TOP BID [facility] Last Admin: 11/01/18 12:25 Dose: Not Given Oxycodone/Acetaminophen (Percocet 5/325 Mg Tab) 2 tab PO Q4H PRN PRN Reason: Pain, severe (8-10) Stop: 11/03/18 21:05 Last Admin: 11/01/18 11:22 Dose: 2 tab Rivaroxaban (Xarelto) 20 mg PO DAILY [facility] Last Admin: 11/01/18 09:46 Dose: 20 mg Saccharomyces Boulardii (Florastor) 250 mg PO BID [facility] Last Admin: 11/01/18 09:44 Dose: 250 mg Sertraline HCl (Zoloft) 50 mg PO DAILY [facility] Last Admin: 11/01/18 09:45 Dose: 50 mg Sitagliptin Phosphate (Januvia) 100 mg PO DAILY [facility] Last Admin: 11/01/18 09:44 Dose: 100 mg Trazodone HCl (Desyrel) 50 mg PO HS PRN PRN Reason: Sleep Last Admin: 10/31/18 21:21 Dose: 50 mg Trimethobenzamide HCl (Tigan) 200 mg IM Q8 PRN PRN Reason: Nausea/Vomiting Vancomycin HCl (Vancocin 250mg Capsule) 250 mg PO QID [facility] Last Admin: 11/01/18 13:36 Dose: 250 mg Vitamin B Complex/Vit C/Folic Acid (Nephro-Lavinia) 1 tab PO DAILY [facility] Last Admin: 11/01/18 09:45 Dose: 1 tab - Labs Labs: 11/01/18 08:09 11/01/18 08:09 PT 16.2 SECONDS (9.7-12.2) H 10/26/18 13:10 INR 1.5 10/26/18 13:10 APTT 29.0 SECONDS (21-34) 10/26/18 13:10 - Head Exam Head Exam: ATRAUMATIC, NORMOCEPHALIC - Neck Exam Neck Exam: Normal Inspection - Respiratory Exam Respiratory Exam: Decreased Breath Sounds - Cardiovascular Exam Cardiovascular Exam: REGULAR RHYTHM - GI/Abdominal Exam GI & Abdominal Exam: Soft, Normal Bowel Sounds Assessment and Plan (1) Respiratory insufficiency/failure Assessment & Plan: Continue BiPAP as needed Continue antibiotics Nebulizer treatment follow-up ABG Status: Acute (2) Chr obstructive pulmonary disease w/ acute lower respiratory infxn Status: Acute (3) Pancreatic cancer metastasized to liver Status: Acute
[2018-11-01] MEDS: (Lantus) Insulin Glargine, Recombinant SC SCH (21:54)
--- NOTE | 2018-11-01 22:05 | CP.PCM.PN ---
Subjective - Date & Time of Evaluation Date of Evaluation: 11/01/18 Time of Evaluation: 20:00 - Subjective Subjective: No complaints. Objective - Vital Signs/Intake and Output Vital Signs (last 24 hours): Temp Pulse Resp BP Pulse Ox 98 F 93 H 20 146/69 95 11/01/18 15:41 11/01/18 19:44 11/01/18 15:41 11/01/18 15:41 11/01/18 15:41 Intake and Output: 11/01/18 11/02/18 18:59 06:59 Intake Total 700 Output Total 600 Balance 100 - Medications Medications: Current Medications Albuterol/Ipratropium (Duoneb 3 Mg/0.5 Mg (3 Ml) Ud) 3 ml IH RQ4 PRN PRN Reason: Shortness of Breath Arformoterol Tartrate (Brovana) 15 mcg INH RQ12@1000,2200 [facility] Last Admin: 11/01/18 21:00 Dose: 15 mcg Artificial Tears (Artificial Tears) 1 ml OU BID [facility] Last Admin: 11/01/18 18:03 Dose: 1 drop Clonazepam (Klonopin) 0.5 mg PO BID [facility] Last Admin: 11/01/18 18:03 Dose: 0.5 mg Colchicine (Colocrys) 0.6 mg PO BID [facility] Last Admin: 11/01/18 18:03 Dose: 0.6 mg Dextrose (Dextrose 50% Inj) 0 ml IVP .STAT PRN; Protocol PRN Reason: Hypoglycemia Protocol Dextrose (Glutose 15) 0 gm PO .ONCE PRN; Protocol PRN Reason: Hypoglycemia Protocol Diazepam (Valium) 5 mg PO BID [facility] Last Admin: 11/01/18 18:13 Dose: 5 mg Diltiazem HCl (Cardizem Cd) 180 mg PO TID [facility] Last Admin: 11/01/18 18:03 Dose: 180 mg Dronabinol (Marinol) 2.5 mg PO BID [facility] Last Admin: 11/01/18 18:03 Dose: 2.5 mg Ergocalciferol (Drisdol 50,000 Intl Units Cap) 1 cap PO Q7D [facility] Last Admin: 10/26/18 19:36 Dose: Not Given Escitalopram Oxalate (Lexapro) 5 mg PO DAILY [facility] Last Admin: 11/01/18 09:45 Dose: 5 mg Famotidine (Pepcid) 20 mg IVP DAILY [facility] Last Admin: 11/01/18 09:24 Dose: 20 mg Fentanyl (Duragesic) 1 patch TD Q72H [facility] Last Admin: 10/31/18 12:15 Dose: 1 patch Ferrous Gluconate (Fergon) 324 mg PO TID [facility] Last Admin: 11/01/18 18:03 Dose: 324 mg Furosemide (Lasix) 20 mg IVP DAILY [facility] Last Admin: 11/01/18 09:24 Dose: 20 mg Glucagon (Glucagen Diagnostic Kit) 0 mg IM .STAT PRN; Protocol PRN Reason: Hypoglycemia Protocol Metronidazole (Flagyl) 500 mg in 100 mls @ 100 mls/hr IVPB Q8H [facility]; Protocol Last Admin: 11/01/18 21:51 Dose: 100 mls/hr Azithromycin 500 mg/ Sodium (Chloride) 250 mls @ 167 mls/hr IVPB Q24H [facility]; Protocol Last Admin: 11/01/18 13:37 Dose: 167 mls/hr Piperacillin Sod/Tazobactam Sod (Zosyn 3.375 Gm Iv Premix) 3.375 gm in 50 mls @ 100 mls/hr IVPB Q8H [facility]; Protocol Last Admin: 11/01/18 18:13 Dose: 100 mls/hr Insulin Aspart (Novolog) 12 unit SC AC [facility] Last Admin: 11/01/18 18:04 Dose: 12 units Insulin Glargine (Lantus) 24 unit SC HS [facility] Last Admin: 11/01/18 21:54 Dose: 24 u Insulin Human Regular (Novolin R) 0 unit SC ACHS [facility]; Protocol Last Admin: 11/01/18 21:55 Dose: Not Given Levothyroxine Sodium (Synthroid) 100 mcg PO DAILY@0630 [facility] Last Admin: 11/01/18 06:57 Dose: 100 mcg Methylprednisolone (Solu-Medrol) 40 mg IVP Q12H [facility] Last Admin: 11/01/18 21:57 Dose: 40 mg Nystatin (Nystop Topical Powder) 1 applic TOP BID [facility] Last Admin: 11/01/18 18:13 Dose: 1 applic Oxycodone/Acetaminophen (Percocet 5/325 Mg Tab) 2 tab PO Q4H PRN PRN Reason: Pain, severe (8-10) Stop: 11/03/18 21:05 Last Admin: 11/01/18 21:52 Dose: 2 tab Rivaroxaban (Xarelto) 20 mg PO DAILY [facility] Last Admin: 11/01/18 09:46 Dose: 20 mg Saccharomyces Boulardii (Florastor) 250 mg PO BID [facility] Last Admin: 11/01/18 18:03 Dose: 250 mg Sertraline HCl (Zoloft) 50 mg PO DAILY [facility] Last Admin: 11/01/18 09:45 Dose: 50 mg Sitagliptin Phosphate (Januvia) 100 mg PO DAILY [facility] Last Admin: 11/01/18 09:44 Dose: 100 mg Trazodone HCl (Desyrel) 50 mg PO HS PRN PRN Reason: Sleep Last Admin: 11/01/18 21:52 Dose: 50 mg Trimethobenzamide HCl (Tigan) 200 mg IM Q8 PRN PRN Reason: Nausea/Vomiting Vancomycin HCl (Vancocin 250mg Capsule) 250 mg PO QID [facility] Last Admin: 11/01/18 21:57 Dose: 250 mg Vitamin B Complex/Vit C/Folic Acid (Nephro-Lavinia) 1 tab PO DAILY [facility] Last Admin: 11/01/18 09:45 Dose: 1 tab - Labs Labs: 11/01/18 08:09 11/01/18 08:09 PT 16.2 SECONDS (9.7-12.2) H 10/26/18 13:10 INR 1.5 10/26/18 13:10 APTT 29.0 SECONDS (21-34) 10/26/18 13:10 - Head Exam Head Exam: ATRAUMATIC - Eye Exam Eye Exam: Normal appearance - ENT Exam ENT Exam: Mucous Membranes Dry - Respiratory Exam Respiratory Exam: NORMAL BREATHING PATTERN - Cardiovascular Exam Cardiovascular Exam: +S1, +S2 - GI/Abdominal Exam GI & Abdominal Exam: Normal Bowel Sounds Assessment and Plan (1) Anemia Assessment & Plan: anemia of chronic disease Status: Acute (2) Pancreatic cancer metastasized to liver Assessment & Plan: deferred chemotherapy PDL1 and MSI testing to see if pt would benefit from immunotherapy Status: Acute
--- NOTE | 2018-11-01 22:05 | CP.PCM.PN ---
Subjective - Date & Time of Evaluation Date of Evaluation: 10/31/18 Time of Evaluation: 20:00 - Subjective Subjective: No complaints. Objective - Vital Signs/Intake and Output Vital Signs (last 24 hours): Temp Pulse Resp BP Pulse Ox 98 F 93 H 20 146/69 95 11/01/18 15:41 11/01/18 19:44 11/01/18 15:41 11/01/18 15:41 11/01/18 15:41 Intake and Output: 11/01/18 11/02/18 18:59 06:59 Intake Total 700 Output Total 600 Balance 100 - Medications Medications: Current Medications Albuterol/Ipratropium (Duoneb 3 Mg/0.5 Mg (3 Ml) Ud) 3 ml IH RQ4 PRN PRN Reason: Shortness of Breath Arformoterol Tartrate (Brovana) 15 mcg INH RQ12@1000,2200 [facility] Last Admin: 11/01/18 21:00 Dose: 15 mcg Artificial Tears (Artificial Tears) 1 ml OU BID [facility] Last Admin: 11/01/18 18:03 Dose: 1 drop Clonazepam (Klonopin) 0.5 mg PO BID [facility] Last Admin: 11/01/18 18:03 Dose: 0.5 mg Colchicine (Colocrys) 0.6 mg PO BID [facility] Last Admin: 11/01/18 18:03 Dose: 0.6 mg Dextrose (Dextrose 50% Inj) 0 ml IVP .STAT PRN; Protocol PRN Reason: Hypoglycemia Protocol Dextrose (Glutose 15) 0 gm PO .ONCE PRN; Protocol PRN Reason: Hypoglycemia Protocol Diazepam (Valium) 5 mg PO BID [facility] Last Admin: 11/01/18 18:13 Dose: 5 mg Diltiazem HCl (Cardizem Cd) 180 mg PO TID [facility] Last Admin: 11/01/18 18:03 Dose: 180 mg Dronabinol (Marinol) 2.5 mg PO BID [facility] Last Admin: 11/01/18 18:03 Dose: 2.5 mg Ergocalciferol (Drisdol 50,000 Intl Units Cap) 1 cap PO Q7D [facility] Last Admin: 10/26/18 19:36 Dose: Not Given Escitalopram Oxalate (Lexapro) 5 mg PO DAILY [facility] Last Admin: 11/01/18 09:45 Dose: 5 mg Famotidine (Pepcid) 20 mg IVP DAILY [facility] Last Admin: 11/01/18 09:24 Dose: 20 mg Fentanyl (Duragesic) 1 patch TD Q72H [facility] Last Admin: 10/31/18 12:15 Dose: 1 patch Ferrous Gluconate (Fergon) 324 mg PO TID [facility] Last Admin: 11/01/18 18:03 Dose: 324 mg Furosemide (Lasix) 20 mg IVP DAILY [facility] Last Admin: 11/01/18 09:24 Dose: 20 mg Glucagon (Glucagen Diagnostic Kit) 0 mg IM .STAT PRN; Protocol PRN Reason: Hypoglycemia Protocol Metronidazole (Flagyl) 500 mg in 100 mls @ 100 mls/hr IVPB Q8H [facility]; Protocol Last Admin: 11/01/18 21:51 Dose: 100 mls/hr Azithromycin 500 mg/ Sodium (Chloride) 250 mls @ 167 mls/hr IVPB Q24H [facility]; Protocol Last Admin: 11/01/18 13:37 Dose: 167 mls/hr Piperacillin Sod/Tazobactam Sod (Zosyn 3.375 Gm Iv Premix) 3.375 gm in 50 mls @ 100 mls/hr IVPB Q8H [facility]; Protocol Last Admin: 11/01/18 18:13 Dose: 100 mls/hr Insulin Aspart (Novolog) 12 unit SC AC [facility] Last Admin: 11/01/18 18:04 Dose: 12 units Insulin Glargine (Lantus) 24 unit SC HS [facility] Last Admin: 11/01/18 21:54 Dose: 24 u Insulin Human Regular (Novolin R) 0 unit SC ACHS [facility]; Protocol Last Admin: 11/01/18 21:55 Dose: Not Given Levothyroxine Sodium (Synthroid) 100 mcg PO DAILY@0630 [facility] Last Admin: 11/01/18 06:57 Dose: 100 mcg Methylprednisolone (Solu-Medrol) 40 mg IVP Q12H [facility] Last Admin: 11/01/18 21:57 Dose: 40 mg Nystatin (Nystop Topical Powder) 1 applic TOP BID [facility] Last Admin: 11/01/18 18:13 Dose: 1 applic Oxycodone/Acetaminophen (Percocet 5/325 Mg Tab) 2 tab PO Q4H PRN PRN Reason: Pain, severe (8-10) Stop: 11/03/18 21:05 Last Admin: 11/01/18 21:52 Dose: 2 tab Rivaroxaban (Xarelto) 20 mg PO DAILY [facility] Last Admin: 11/01/18 09:46 Dose: 20 mg Saccharomyces Boulardii (Florastor) 250 mg PO BID [facility] Last Admin: 11/01/18 18:03 Dose: 250 mg Sertraline HCl (Zoloft) 50 mg PO DAILY [facility] Last Admin: 11/01/18 09:45 Dose: 50 mg Sitagliptin Phosphate (Januvia) 100 mg PO DAILY [facility] Last Admin: 11/01/18 09:44 Dose: 100 mg Trazodone HCl (Desyrel) 50 mg PO HS PRN PRN Reason: Sleep Last Admin: 11/01/18 21:52 Dose: 50 mg Trimethobenzamide HCl (Tigan) 200 mg IM Q8 PRN PRN Reason: Nausea/Vomiting Vancomycin HCl (Vancocin 250mg Capsule) 250 mg PO QID [facility] Last Admin: 11/01/18 21:57 Dose: 250 mg Vitamin B Complex/Vit C/Folic Acid (Nephro-Lavinia) 1 tab PO DAILY [facility] Last Admin: 11/01/18 09:45 Dose: 1 tab - Labs Labs: 11/01/18 08:09 11/01/18 08:09 PT 16.2 SECONDS (9.7-12.2) H 10/26/18 13:10 INR 1.5 10/26/18 13:10 APTT 29.0 SECONDS (21-34) 10/26/18 13:10 - Head Exam Head Exam: ATRAUMATIC - Eye Exam Eye Exam: Normal appearance - ENT Exam ENT Exam: Mucous Membranes Dry - Respiratory Exam Respiratory Exam: NORMAL BREATHING PATTERN - Cardiovascular Exam Cardiovascular Exam: +S1, +S2 - GI/Abdominal Exam GI & Abdominal Exam: Normal Bowel Sounds Assessment and Plan (1) Anemia Assessment & Plan: anemia of chronic disease Status: Acute (2) Pancreatic cancer metastasized to liver Assessment & Plan: deferred chemotherapy PDL1 and MSI testing to see if pt would benefit from immunotherapy Status: Acute
[2018-11-02] MEDS: Piperacill/Tazo 3.375gm in Dex 3.375 GM/50 ML BAG IVPB SCH ×3 (01:17→17:24)
[2018-11-02] MEDS: metroNIDAZOLE IV 500 mg/100 ml 500 MG/100 ML BAG IVPB SCH ×3 (04:39→20:55)
[2018-11-02] MEDS: Levothyroxine 100 MCG TAB PO SCH (06:37)
[2018-11-02] MEDS: Albuterol-Ipratrop 3 mg / 0.5 (3 ml) UD IH PRN (07:28)
[2018-11-02 07:50] LABS: BASO # 0.1 K/uL (0.0-0.2); BASO % 0.5 % (0.0-2.0); EOS # 0.1 K/uL (0.0-0.7); EOS % 0.6 % (0.0-4.0); HEMOGLOBIN 9.5 g/dL (11.0-16.0); LYMPH # 0.7 K/uL (1.0-4.3); LYMPH % 6.2 % (20.0-40.0); MEAN CELL VOLUME 78.2 fL (81.0-99.0); MEAN CORPUSCULAR HEMOGLOBIN 24.7 pg (27.0-31.0); MEAN CORPUSCULAR HGB CONC 31.5 g/dL (33.0-37.0); MONO # 0.5 K/uL (0.0-0.8); MONO % 4.7 % (0.0-10.0); NEUT # 9.3 K/uL (1.8-7.0); NRBC % 0.1 % (0.0-2.0); PLATELET COUNT 308 K/uL (130-400); RBC 3.87 Mil/uL (3.80-5.20); RED CELL DISTRIBUTION WIDTH 21.3 % (11.5-14.5); WHITE BLOOD COUNT 10.6 K/uL (4.8-10.8)
[2018-11-02] MEDS: (Novolin R) Insulin Human Regular 100 units/ml vial SC SCH ×4 (08:25→21:50)
[2018-11-02] MEDS: (Novolog) Insulin Aspart, Recombinant 100 u/ml 10 ml vial SC SCH ×3 (08:25→17:19)
[2018-11-02 08:31] LABS: ALB/GLOB RATIO 1.3 (1.0-2.1); ALBUMIN 2.9 g/dL (3.5-5.0); ALT/SGPT 84 U/L (9-52); AST/SGOT 44 U/L (14-36); BLOOD UREA NITROGEN 47 mg/dL (7-17); CALCIUM 8.6 mg/dl (8.6-10.4); GFR NON-AFRICAN AMERICAN 50
[2018-11-02] MEDS: MethylPREDNISolone 40 mg Vial IVP SCH (08:51)
[2018-11-02 09:09] LABS: ANISOCYTOSIS SLIGHT; BANDS 1 % (0-2); HYPOCHROMIC SLIGHT; LYMPHOCYTE 6 % (20-40); MONOCYTE 4 % (0-10); MYELOCYTE 1 % (0-0); NEUTROPHIL 88 % (50-75); PLATELET ESTIMATE NORMAL (NORMAL); POIKILOCYTOSIS SLIGHT; TEARDROP CELLS SLIGHT; TOTAL CELLS COUNTED 100
[2018-11-02 09:10] LABS: BURR CELLS SLIGHT
[2018-11-02] MEDS: Multivitamin Vitamin B Complex (Nephro-Vite) Tab PO SCH (09:58)
[2018-11-02] MEDS: diltiaZEM 180 mg/24 Hours CD Cap PO SCH ×3 (09:58→17:19)
[2018-11-02] MEDS: Vancomycin Hydrochloride 250 mg Capsule (Oral) PO SCH ×4 (09:58→21:51)
[2018-11-02] MEDS: Saccharomyces Boulardi 250 mg Cap PO SCH ×2 (09:59→17:19)
[2018-11-02] MEDS: Aritificial Tears (15ml) OU SCH ×2 (10:01→17:21)
[2018-11-02] MEDS: Arformoterol 15 mcg/2 ml Inh Sol INH SCH (10:19)
[2018-11-02] MEDS: Oxycodone/Acetaminophen 5/325 mg Tab PO PRN ×3 (10:33→21:33)
--- NOTE | 2018-11-02 12:18 | CP.PCM.PN ---
Subjective - Date & Time of Evaluation Date of Evaluation: 11/02/18 Time of Evaluation: 11:00 - Subjective Subjective: Has shoulder pain. Objective - Vital Signs/Intake and Output Vital Signs (last 24 hours): Temp Pulse Resp BP Pulse Ox 98.4 F 109 H 20 149/81 96 11/01/18 23:10 11/02/18 10:04 11/01/18 23:10 11/02/18 10:04 11/01/18 23:10 Intake and Output: 11/02/18 11/02/18 06:59 18:59 Intake Total 500 Output Total 800 Balance -300 - Medications Medications: Current Medications Albuterol/Ipratropium (Duoneb 3 Mg/0.5 Mg (3 Ml) Ud) 3 ml IH RQ4 PRN PRN Reason: Shortness of Breath Last Admin: 11/02/18 07:28 Dose: 3 ml Arformoterol Tartrate (Brovana) 15 mcg INH RQ12@1000,2200 [facility] Last Admin: 11/02/18 10:19 Dose: 15 mcg Artificial Tears (Artificial Tears) 1 ml OU BID [facility] Last Admin: 11/02/18 10:01 Dose: Not Given Clonazepam (Klonopin) 0.5 mg PO BID [facility] Last Admin: 11/02/18 10:33 Dose: 0.5 mg Colchicine (Colocrys) 0.6 mg PO BID [facility] Last Admin: 11/02/18 09:58 Dose: 0.6 mg Dextrose (Dextrose 50% Inj) 0 ml IVP .STAT PRN; Protocol PRN Reason: Hypoglycemia Protocol Dextrose (Glutose 15) 0 gm PO .ONCE PRN; Protocol PRN Reason: Hypoglycemia Protocol Diazepam (Valium) 5 mg PO BID [facility] Last Admin: 11/02/18 09:58 Dose: 5 mg Diltiazem HCl (Cardizem Cd) 180 mg PO TID [facility] Last Admin: 11/02/18 09:58 Dose: 180 mg Dronabinol (Marinol) 2.5 mg PO BID [facility] Last Admin: 11/02/18 09:59 Dose: 2.5 mg Ergocalciferol (Drisdol 50,000 Intl Units Cap) 1 cap PO Q7D [facility] Last Admin: 10/26/18 19:36 Dose: Not Given Escitalopram Oxalate (Lexapro) 5 mg PO DAILY [facility] Last Admin: 11/02/18 09:59 Dose: 5 mg Famotidine (Pepcid) 20 mg IVP DAILY [facility] Last Admin: 11/02/18 09:59 Dose: 20 mg Fentanyl (Duragesic) 1 patch TD Q72H [facility] Last Admin: 10/31/18 12:15 Dose: 1 patch Ferrous Gluconate (Fergon) 324 mg PO TID [facility] Last Admin: 11/02/18 09:58 Dose: 324 mg Furosemide (Lasix) 20 mg IVP DAILY [facility] Last Admin: 11/02/18 09:59 Dose: 20 mg Glucagon (Glucagen Diagnostic Kit) 0 mg IM .STAT PRN; Protocol PRN Reason: Hypoglycemia Protocol Metronidazole (Flagyl) 500 mg in 100 mls @ 100 mls/hr IVPB Q8H [facility]; Protocol Last Admin: 11/02/18 11:46 Dose: 100 mls/hr Azithromycin 500 mg/ Sodium (Chloride) 250 mls @ 167 mls/hr IVPB Q24H [facility]; Protocol Last Admin: 11/01/18 13:37 Dose: 167 mls/hr Piperacillin Sod/Tazobactam Sod (Zosyn 3.375 Gm Iv Premix) 3.375 gm in 50 mls @ 100 mls/hr IVPB Q8H [facility]; Protocol Last Admin: 11/02/18 08:55 Dose: 100 mls/hr Insulin Aspart (Novolog) 12 unit SC AC [facility] Last Admin: 11/02/18 11:45 Dose: 12 units Insulin Glargine (Lantus) 24 unit SC HS [facility] Last Admin: 11/01/18 21:54 Dose: 24 u Insulin Human Regular (Novolin R) 0 unit SC ACHS [facility]; Protocol Last Admin: 11/02/18 11:46 Dose: 12 units Levothyroxine Sodium (Synthroid) 100 mcg PO DAILY@0630 [facility] Last Admin: 11/02/18 06:37 Dose: 100 mcg Methylprednisolone (Solu-Medrol) 40 mg IVP Q12H [facility] Last Admin: 11/02/18 08:51 Dose: 40 mg Nystatin (Nystop Topical Powder) 1 applic TOP BID [facility] Last Admin: 11/02/18 10:00 Dose: Not Given Oxycodone/Acetaminophen (Percocet 5/325 Mg Tab) 2 tab PO Q4H PRN PRN Reason: Pain, severe (8-10) Stop: 11/03/18 21:05 Last Admin: 11/02/18 10:33 Dose: 2 tab Rivaroxaban (Xarelto) 20 mg PO DAILY [facility] Last Admin: 11/02/18 09:58 Dose: 20 mg Saccharomyces Boulardii (Florastor) 250 mg PO BID [facility] Last Admin: 11/02/18 09:59 Dose: 250 mg Sertraline HCl (Zoloft) 50 mg PO DAILY [facility] Last Admin: 11/02/18 09:59 Dose: 50 mg Sitagliptin Phosphate (Januvia) 100 mg PO DAILY [facility] Last Admin: 11/02/18 09:58 Dose: 100 mg Trazodone HCl (Desyrel) 50 mg PO HS PRN PRN Reason: Sleep Last Admin: 11/01/18 21:52 Dose: 50 mg Trimethobenzamide HCl (Tigan) 200 mg IM Q8 PRN PRN Reason: Nausea/Vomiting Vancomycin HCl (Vancocin 250mg Capsule) 250 mg PO QID [facility] Last Admin: 11/02/18 09:58 Dose: 250 mg Vitamin B Complex/Vit C/Folic Acid (Nephro-Lavinia) 1 tab PO DAILY [facility] Last Admin: 11/02/18 09:58 Dose: 1 tab - Labs Labs: 11/02/18 07:29 11/02/18 07:29 PT 16.2 SECONDS (9.7-12.2) H 10/26/18 13:10 INR 1.5 10/26/18 13:10 APTT 29.0 SECONDS (21-34) 10/26/18 13:10 - Head Exam Head Exam: ATRAUMATIC - Eye Exam Eye Exam: Normal appearance - ENT Exam ENT Exam: Mucous Membranes Dry - Respiratory Exam Respiratory Exam: NORMAL BREATHING PATTERN - Cardiovascular Exam Cardiovascular Exam: +S1, +S2 - GI/Abdominal Exam GI & Abdominal Exam: Normal Bowel Sounds Assessment and Plan (1) Anemia Assessment & Plan: anemia of chronic disease Status: Acute (2) Pancreatic cancer metastasized to liver Assessment & Plan: deferred chemotherapy PDL1 and MSI testing to see if pt would benefit from immunotherapy Status: Acute
[2018-11-02] MEDS: Azithromycin 500 MG in Sodium Chloride 0.9% 250 ML IVPB SCH (13:13)
--- NOTE | 2018-11-02 13:54 | CP.PCM.PN ---
Subjective - Date & Time of Evaluation Date of Evaluation: 11/02/18 Time of Evaluation: 07:30 - Subjective Subjective: Medicine progress note ( Dr. Gutierres's service) Patient was seen and examined at bedside, while resting in bed comfortably. Patient denies any acute issues or complaints at this time. Patient states that her pain is controlled with medications. Patient was in a good mood this morning and was making jokes and laughing with me. Patient states that she is trying to remain in good spirits. Objective - Vital Signs/Intake and Output Vital Signs (last 24 hours): Temp Pulse Resp BP Pulse Ox 98.4 F 104 H 20 124/63 96 11/01/18 23:10 11/02/18 13:15 11/01/18 23:10 11/02/18 13:15 11/01/18 23:10 Intake and Output: 11/02/18 11/02/18 06:59 18:59 Intake Total 500 Output Total 800 Balance -300 - Medications Medications: Current Medications Albuterol/Ipratropium (Duoneb 3 Mg/0.5 Mg (3 Ml) Ud) 3 ml IH RQ4 PRN PRN Reason: Shortness of Breath Last Admin: 11/02/18 07:28 Dose: 3 ml Arformoterol Tartrate (Brovana) 15 mcg INH RQ12@1000,2200 [facility] Last Admin: 11/02/18 10:19 Dose: 15 mcg Artificial Tears (Artificial Tears) 1 ml OU BID [facility] Last Admin: 11/02/18 10:01 Dose: Not Given Clonazepam (Klonopin) 0.5 mg PO BID [facility] Last Admin: 11/02/18 10:33 Dose: 0.5 mg Colchicine (Colocrys) 0.6 mg PO BID [facility] Last Admin: 11/02/18 09:58 Dose: 0.6 mg Dextrose (Dextrose 50% Inj) 0 ml IVP .STAT PRN; Protocol PRN Reason: Hypoglycemia Protocol Dextrose (Glutose 15) 0 gm PO .ONCE PRN; Protocol PRN Reason: Hypoglycemia Protocol Diazepam (Valium) 5 mg PO BID [facility] Last Admin: 11/02/18 09:58 Dose: 5 mg Diltiazem HCl (Cardizem Cd) 180 mg PO TID [facility] Last Admin: 11/02/18 13:13 Dose: 180 mg Dronabinol (Marinol) 2.5 mg PO BID [facility] Last Admin: 11/02/18 09:59 Dose: 2.5 mg Ergocalciferol (Drisdol 50,000 Intl Units Cap) 1 cap PO Q7D [facility] Last Admin: 10/26/18 19:36 Dose: Not Given Escitalopram Oxalate (Lexapro) 5 mg PO DAILY [facility] Last Admin: 11/02/18 09:59 Dose: 5 mg Famotidine (Pepcid) 20 mg IVP DAILY [facility] Last Admin: 11/02/18 09:59 Dose: 20 mg Fentanyl (Duragesic) 1 patch TD Q72H [facility] Last Admin: 10/31/18 12:15 Dose: 1 patch Ferrous Gluconate (Fergon) 324 mg PO TID [facility] Last Admin: 11/02/18 13:13 Dose: 324 mg Furosemide (Lasix) 20 mg IVP DAILY [facility] Last Admin: 11/02/18 09:59 Dose: 20 mg Glucagon (Glucagen Diagnostic Kit) 0 mg IM .STAT PRN; Protocol PRN Reason: Hypoglycemia Protocol Metronidazole (Flagyl) 500 mg in 100 mls @ 100 mls/hr IVPB Q8H [facility]; Protocol Last Admin: 11/02/18 11:46 Dose: 100 mls/hr Azithromycin 500 mg/ Sodium (Chloride) 250 mls @ 167 mls/hr IVPB Q24H [facility]; Protocol Last Admin: 11/02/18 13:13 Dose: 167 mls/hr Piperacillin Sod/Tazobactam Sod (Zosyn 3.375 Gm Iv Premix) 3.375 gm in 50 mls @ 100 mls/hr IVPB Q8H [facility]; Protocol Last Admin: 11/02/18 08:55 Dose: 100 mls/hr Insulin Aspart (Novolog) 12 unit SC AC [facility] Last Admin: 11/02/18 11:45 Dose: 12 units Insulin Glargine (Lantus) 24 unit SC HS [facility] Last Admin: 11/01/18 21:54 Dose: 24 u Insulin Human Regular (Novolin R) 0 unit SC ACHS [facility]; Protocol Last Admin: 11/02/18 11:46 Dose: 12 units Levothyroxine Sodium (Synthroid) 100 mcg PO DAILY@0630 [facility] Last Admin: 11/02/18 06:37 Dose: 100 mcg Methylprednisolone (Solu-Medrol) 40 mg IVP Q12H [facility] Last Admin: 11/02/18 08:51 Dose: 40 mg Nystatin (Nystop Topical Powder) 1 applic TOP BID [facility] Last Admin: 11/02/18 10:00 Dose: Not Given Oxycodone/Acetaminophen (Percocet 5/325 Mg Tab) 2 tab PO Q4H PRN PRN Reason: Pain, severe (8-10) Stop: 11/03/18 21:05 Last Admin: 11/02/18 10:33 Dose: 2 tab Rivaroxaban (Xarelto) 20 mg PO DAILY [facility] Last Admin: 11/02/18 09:58 Dose: 20 mg Saccharomyces Boulardii (Florastor) 250 mg PO BID [facility] Last Admin: 11/02/18 09:59 Dose: 250 mg Sertraline HCl (Zoloft) 50 mg PO DAILY [facility] Last Admin: 11/02/18 09:59 Dose: 50 mg Sitagliptin Phosphate (Januvia) 100 mg PO DAILY [facility] Last Admin: 11/02/18 09:58 Dose: 100 mg Trazodone HCl (Desyrel) 50 mg PO HS PRN PRN Reason: Sleep Last Admin: 11/01/18 21:52 Dose: 50 mg Trimethobenzamide HCl (Tigan) 200 mg IM Q8 PRN PRN Reason: Nausea/Vomiting Vancomycin HCl (Vancocin 250mg Capsule) 250 mg PO QID [facility] Last Admin: 11/02/18 13:13 Dose: 250 mg Vitamin B Complex/Vit C/Folic Acid (Nephro-Lavinia) 1 tab PO DAILY [facility] Last Admin: 11/02/18 09:58 Dose: 1 tab - Labs Labs: 11/02/18 07:29 11/02/18 07:29 PT 16.2 SECONDS (9.7-12.2) H 10/26/18 13:10 INR 1.5 10/26/18 13:10 APTT 29.0 SECONDS (21-34) 10/26/18 13:10 - Constitutional Appears: No Acute Distress - Head Exam Head Exam: ATRAUMATIC, NORMAL INSPECTION - Eye Exam Eye Exam: EOMI, Normal appearance - ENT Exam ENT Exam: Mucous Membranes Moist - Respiratory Exam Respiratory Exam: Clear to Ausculation Bilateral, NORMAL BREATHING PATTERN Additional comments: Patient is using incentive spirometry as advised - Cardiovascular Exam Cardiovascular Exam: REGULAR RHYTHM, +S1, +S2 - GI/Abdominal Exam GI & Abdominal Exam: Soft, Normal Bowel Sounds. absent: Distended, Firm, Guarding, Rigid, Tenderness - Exam Additional comments: Sacral ulcer, stage 2, no drainage - Extremities Exam Extremities Exam: Normal Inspection. absent: Calf Tenderness, Pedal Edema - Neurological Exam Neurological Exam: Alert, Awake, Oriented x3 - Psychiatric Exam Psychiatric exam: Normal Affect - Skin Skin Exam: Normal Color Assessment and Plan (1) Sepsis Assessment & Plan: Secondary to healthcare acquired pneumonia and bacteremia Consultation: - ID, Dr. Little---> help appreciated Labs/Vitals: - On admission: WBC (11.9); downtrending - Tachycardia, Afebrile [id number] - BC (10/26/18): Positive for gram negative val (after 4-5 days) - UC (10/26/18): No growth Imaging: Chest CT without contrast: Worsening airspace consolidative changes seen in the bilateral lower lobes; left greater than right. This may be the sequelae of acute infectious changes. Clinical correlation. Post treatment interval Medications: - Vancomycin 1gm IV daily (Received 2 doses- 10/26 & 10/27) -Azithromycin 500mg IVPB daily (stared 10/27/18) - Zosyn 3.375gm IV Q8H ( started 10/31/18) - Florastor 250mg PO BID Status: Acute (2) SVT (supraventricular tachycardia) Assessment & Plan: Consultation: * Metal Fence ErectorDr. Pineda---> Help appreciated History of Tachycardia * WHIZZER at 11:00pm 10/27/18 for episode of SVT * Cardizem 180mg PO TID Status: Acute (3) Elevated troponin Assessment & Plan: Consultation: * Metal Fence ErectorDr. Pineda---> Help appreciated * No ST changes * No invasive intervention needed as per cardiology Status: Acute (4) Clostridium difficile infection Assessment & Plan: Dr. Anabel TORO---> help appreciated Labs: C-difficle toxin (10/27/18): Positive * This was checked due known exposure at the longterm prior to admission Medications: * Flagyl 500mg IV Q8H (Initiated 10/28/18) * Zosyn 3.375gm IV Q6H ( Initiated 10/26/18) * Florastor 250mg PO BID Status: Acute (5) Pancreatic cancer metastasized to liver Assessment & Plan: Procedure (10/11/18): Findings: Metastasis to the liver, grossly single nodule. Cystic lesion and harden pancreas. - Pathology: Adenocarcinoma, favor pancreatico-Biliary Labs and imaging: - CEA: 42.5, CA19-9: 1980, CA125: 36.2 - Abdomen/Pelvic CT: Heterogeneous hyperdense pancreatic mass measuring approximately 2.7 x 2.5 cm at the pancreatic body/tail. Ectatic dilated pancreatic duct. Additional cystic heterogeneous focus measuring approximately 15 x 14 mm is noted at the superior aspect of the pancreas. Appearance worrisome for malignant neoplasm. Wall thickening involving the 2nd portion of the duodenum of uncertain significance; considerations include infectious, inflammatory, or malignant etiologies. Correlate clinically and recommend further evaluation with direct visualization if indicated. Small pelvic free fluid Pain management: - Fenatyl 25mcg/hr 1 patch TD Q72 hours - Oxycodone 2 tab PO Q4H PRN Status: Acute (6) CHF (congestive heart failure) Assessment & Plan: on admission: - [id number] Imaging: - Chest X-ray (10/26/18): Findings are concerning for developing congestive heart failure Medication: - Lasix 20mg IV daily Status: Chronic (7) Diabetes mellitus Assessment & Plan: HgbA1C (09/07/18): 9.0 Accuchecks ISS- High dose Novolog 12 units AC Lantus 24units SC HS Glipizide 10mg PO BID Januvia 100mg PO daily Hypoglycemia protocol Status: Acute (8) Hypothyroid Assessment & Plan: TSH/Free T4 (09/07/18): 9.5/0.30 - Continue Synthroid 100mcg PO daily Status: Acute (9) History of DVT (deep vein thrombosis) Assessment & Plan: - Continue Xarelto 20mg PO daily Status: Acute (10) Gout Assessment & Plan: Colchicine 0.6mg PO BID Status: Acute (11) Chr obstructive pulmonary disease w/ acute lower respiratory infxn Assessment & Plan: Consultation: * Pulmonology, Dr. Dicekrson Imaging: Chest CT without contrast: Worsening airspace consolidative changes seen in the bilateral lower lobes; left greater than right. This may be the sequelae of acute infectious changes. Clinical correlation. Post treatment interval Medications: -Azithromycin 500mg IVPB daily (stared 4/25/19) -Duoneb 3ml IH RQ4 PRN for shortness of breath - Brovana 15mcg INH RQ12H - Solumedrol 40mg IVP daily, tapering off - BiPAP continuos - Florastor 250mg PO BID Status: Acute (12) History of anemia Assessment & Plan: H/H stable - Fergon 324mg PO TID Status: Acute (13) Ulcer Assessment & Plan: Sacral; stage 2 Wound care consult - Recommendation for use of hydrogen peroxide - Turn Q2H Status: Acute (14) Intertrigo Assessment & Plan: -Nystatin Powder BID Status: Acute (15) Psychiatric disturbance Assessment & Plan: Depression and anxiety Consultation * Psychiatry, Dr. Dexter----> Help appreciated Medications: * Clonazepam 0.5mg PO BID * Zoloft 50mg PO daily Status: Acute (16) Electrolyte disturbance Assessment & Plan: Resolved Hypomagnesemia and hypokalemia * Repleted appropriately * Continue to monitor with am labs Status: Acute (17) Fibromyalgia Assessment & Plan: -Home medication: Diazepam 5mg PO BID -Percocet 5/325mg 2 tab Q6H prn for pain Trazadone 50mg PO HS PRN Status: Acute (18) Prophylactic measure Assessment & Plan: -GI: Pepcid 20mg IV daily - DVT: Xarelto 20mg PO daily (Held) - PT/OT - After Palliative care consult on prior admission, Patient is now DNR/DNI; POLST form signed; refer to patient's chart Disposition: Plans for discharge to the [facility] All plans and management discussed with Dr. Gutierres Status: Acute
[2018-11-02] MEDS: Ergocalciferol 50,000 Intl Units Cap PO SCH (17:23)
[2018-11-02] MEDS: (Lantus) Insulin Glargine, Recombinant SC SCH (21:33)
[2018-11-03] MEDS: Piperacill/Tazo 3.375gm in Dex 3.375 GM/50 ML BAG IVPB SCH ×3 (00:03→17:51)
[2018-11-03] MEDS: metroNIDAZOLE IV 500 mg/100 ml 500 MG/100 ML BAG IVPB SCH ×3 (04:28→20:55)
[2018-11-03] MEDS: Levothyroxine 100 MCG TAB PO SCH (06:12)
[2018-11-03] MEDS: Albuterol-Ipratrop 3 mg / 0.5 (3 ml) UD IH PRN (07:28)
[2018-11-03] MEDS: Arformoterol 15 mcg/2 ml Inh Sol INH SCH ×3 (07:37→21:08)
[2018-11-03 08:13] LABS: BASO # 0.1 K/uL (0.0-0.2); BASO % 0.6 % (0.0-2.0); EOS % 0.1 % (0.0-4.0); HEMOGLOBIN 9.6 g/dL (11.0-16.0); LYMPH # 1.2 K/uL (1.0-4.3); LYMPH % 8.8 % (20.0-40.0); MEAN CELL VOLUME 78.1 fL (81.0-99.0); MEAN CORPUSCULAR HEMOGLOBIN 24.2 pg (27.0-31.0); MEAN PLATELET VOLUME 9.1 fL (7.2-11.7); MONO # 1.1 K/uL (0.0-0.8); MONO % 8.2 % (0.0-10.0); NEUT # 11.5 K/uL (1.8-7.0); NEUT % 82.3 % (50.0-75.0); NRBC % 0.2 % (0.0-2.0); PLATELET COUNT 328 K/uL (130-400); RBC 3.97 Mil/uL (3.80-5.20); RED CELL DISTRIBUTION WIDTH 21.6 % (11.5-14.5)
--- NOTE | 2018-11-03 08:20 | CP.PCM.PN ---
Subjective - Date & Time of Evaluation Date of Evaluation: 11/03/18 Time of Evaluation: 08:12 - Subjective Subjective: PGY3 progress note for Dr. Gutierres Pt seen and examined at bedside. No acute events overnight. Patient states that should like to discontinue her treatment. She states that she would like to be in peace and pain free. Denies having any CP, SOB, abd pain, N/V/D/C, F/C. Objective - Vital Signs/Intake and Output Vital Signs (last 24 hours): Temp Pulse Resp BP Pulse Ox 97.9 F 91 H 20 133/72 95 11/02/18 23:00 11/03/18 06:24 11/02/18 23:00 11/02/18 23:00 11/02/18 23:00 Intake and Output: 11/03/18 11/03/18 06:59 18:59 Output Total 200 Balance -200 - Medications Medications: Current Medications Albuterol/Ipratropium (Duoneb 3 Mg/0.5 Mg (3 Ml) Ud) 3 ml IH RQ4 PRN PRN Reason: Shortness of Breath Last Admin: 11/03/18 07:28 Dose: 3 ml Arformoterol Tartrate (Brovana) 15 mcg INH RQ12@1000,2200 [facility] Last Admin: 11/02/18 10:19 Dose: 15 mcg Artificial Tears (Artificial Tears) 1 ml OU BID [facility] Last Admin: 11/02/18 17:21 Dose: Not Given Clonazepam (Klonopin) 0.5 mg PO BID [facility] Last Admin: 11/02/18 17:19 Dose: 0.5 mg Colchicine (Colocrys) 0.6 mg PO BID [facility] Last Admin: 11/02/18 17:18 Dose: 0.6 mg Dextrose (Dextrose 50% Inj) 0 ml IVP .STAT PRN; Protocol PRN Reason: Hypoglycemia Protocol Dextrose (Glutose 15) 0 gm PO .ONCE PRN; Protocol PRN Reason: Hypoglycemia Protocol Diazepam (Valium) 5 mg PO BID [facility] Last Admin: 11/02/18 17:19 Dose: 5 mg Diltiazem HCl (Cardizem Cd) 180 mg PO TID [facility] Last Admin: 11/02/18 17:19 Dose: 180 mg Dronabinol (Marinol) 2.5 mg PO BID [facility] Last Admin: 11/02/18 17:19 Dose: 2.5 mg Ergocalciferol (Drisdol 50,000 Intl Units Cap) 1 cap PO Q7D [facility] Last Admin: 11/02/18 17:23 Dose: 1 cap Escitalopram Oxalate (Lexapro) 5 mg PO DAILY [facility] Last Admin: 11/02/18 09:59 Dose: 5 mg Famotidine (Pepcid) 20 mg IVP DAILY [facility] Last Admin: 11/02/18 09:59 Dose: 20 mg Fentanyl (Duragesic) 1 patch TD Q72H [facility] Last Admin: 10/31/18 12:15 Dose: 1 patch Ferrous Gluconate (Fergon) 324 mg PO TID [facility] Last Admin: 11/02/18 17:19 Dose: 324 mg Furosemide (Lasix) 20 mg IVP DAILY [facility] Last Admin: 11/02/18 09:59 Dose: 20 mg Glucagon (Glucagen Diagnostic Kit) 0 mg IM .STAT PRN; Protocol PRN Reason: Hypoglycemia Protocol Metronidazole (Flagyl) 500 mg in 100 mls @ 100 mls/hr IVPB Q8H [facility]; Protocol Last Admin: 11/03/18 04:28 Dose: 100 mls/hr Azithromycin 500 mg/ Sodium (Chloride) 250 mls @ 167 mls/hr IVPB Q24H [facility]; Protocol Last Admin: 11/02/18 13:13 Dose: 167 mls/hr Piperacillin Sod/Tazobactam Sod (Zosyn 3.375 Gm Iv Premix) 3.375 gm in 50 mls @ 100 mls/hr IVPB Q8H [facility]; Protocol Last Admin: 11/03/18 00:03 Dose: 100 mls/hr Insulin Aspart (Novolog) 12 unit SC AC [facility] Last Admin: 11/02/18 17:19 Dose: 12 units Insulin Glargine (Lantus) 24 unit SC HS [facility] Last Admin: 11/02/18 21:33 Dose: 24 u Insulin Human Regular (Novolin R) 0 unit SC ACHS [facility]; Protocol Last Admin: 11/02/18 21:50 Dose: Not Given Levothyroxine Sodium (Synthroid) 100 mcg PO DAILY@0630 [facility] Last Admin: 11/03/18 06:12 Dose: 100 mcg Methylprednisolone (Solu-Medrol) 40 mg IVP DAILY [facility] Nystatin (Nystop Topical Powder) 1 applic TOP BID [facility] Last Admin: 11/02/18 17:21 Dose: Not Given Oxycodone/Acetaminophen (Percocet 5/325 Mg Tab) 2 tab PO Q4H PRN PRN Reason: Pain, severe (8-10) Stop: 11/03/18 21:05 Last Admin: 11/02/18 21:33 Dose: 2 tab Rivaroxaban (Xarelto) 20 mg PO DAILY [facility] Last Admin: 11/02/18 09:58 Dose: 20 mg Saccharomyces Boulardii (Florastor) 250 mg PO BID [facility] Last Admin: 11/02/18 17:19 Dose: 250 mg Sertraline HCl (Zoloft) 50 mg PO DAILY [facility] Last Admin: 11/02/18 09:59 Dose: 50 mg Sitagliptin Phosphate (Januvia) 100 mg PO DAILY [facility] Last Admin: 11/02/18 09:58 Dose: 100 mg Trazodone HCl (Desyrel) 50 mg PO HS PRN PRN Reason: Sleep Last Admin: 11/02/18 21:33 Dose: 50 mg Trimethobenzamide HCl (Tigan) 200 mg IM Q8 PRN PRN Reason: Nausea/Vomiting Vancomycin HCl (Vancocin 250mg Capsule) 250 mg PO QID [facility] Last Admin: 11/02/18 21:51 Dose: 250 mg Vitamin B Complex/Vit C/Folic Acid (Nephro-Lavinia) 1 tab PO DAILY [facility] Last Admin: 11/02/18 09:58 Dose: 1 tab - Labs Labs: 11/02/18 07:29 11/02/18 07:29 PT 16.2 SECONDS (9.7-12.2) H 10/26/18 13:10 INR 1.5 10/26/18 13:10 APTT 29.0 SECONDS (21-34) 10/26/18 13:10 - Constitutional Appears: Non-toxic, No Acute Distress - Head Exam Head Exam: ATRAUMATIC, NORMOCEPHALIC - ENT Exam ENT Exam: Mucous Membranes Moist - Respiratory Exam Respiratory Exam: Clear to Ausculation Bilateral. absent: Accessory Muscle Use, Rales, Rhonchi, Wheezes, Respiratory Distress - Cardiovascular Exam Cardiovascular Exam: REGULAR RHYTHM, +S1, +S2. absent: Gallop, Rubs, Murmur - GI/Abdominal Exam GI & Abdominal Exam: Soft, Normal Bowel Sounds. absent: Distended, Firm, Guarding, Rigid, Tenderness, Organomegaly - Neurological Exam Neurological Exam: Alert, Awake, Oriented x3 - Psychiatric Exam Psychiatric exam: Normal Affect, Normal Mood - Skin Skin Exam: Dry, Intact, Normal Color, Warm Assessment and Plan - Assessment and Plan (Free Text) Assessment: (1) Sepsis Assessment & Plan: Secondary to healthcare acquired pneumonia and bacteremia Consultation: - ID, Dr. Little---> help appreciated Labs/Vitals: - On admission: WBC (11.9); downtrending - Tachycardia, Afebrile [id number] - BC (10/26/18): grew cornybacterium species in 1 vile. will repeat blood cultures as this may be a contamination - UC (10/26/18): No growth Imaging: Chest CT without contrast: Worsening airspace consolidative changes seen in the bilateral lower lobes; left greater than right. This may be the sequlae of acute infectious changes. Clinical correlation. Post treatment interval Medications: - Vancomycin 1gm IV daily (Received 2 doses- 10/26 & 10/27) -Azithromycin 500mg IVPB daily (stared 10/27/18) - Zosyn 3.375gm IV Q8H ( started 10/31/18) - Flagyl 500 mg IV q 8 (started 10/28) - Florastor 250mg PO BID Status: Acute (2) SVT (supraventricular tachycardia) Assessment & Plan: Consultation: * Reimbursement LiaisonDr. Pineda---> Help appreciated History of Tachycardia * VISCOSITY INSPECTOR at 11:00pm 10/27/18 for episode of SVT * Cardizem 180mg PO TID * BiPAP prn as pts HR increases when she becomes short of breath Status: Acute (3) Elevated troponin Assessment & Plan: Consultation: * Reimbursement LiaisonDr. Pineda---> Help appreciated * No ST changes * No invasive intervention needed as per cardiology Status: Acute (4) Clostridium difficile infection Assessment & Plan: IDDr. Little---> help appreciated Labs: C-difficle toxin (10/27/18): Positive * This was checked due known exposure at the detention prior to admission Medications: * Flagyl 500mg IV Q8H (Initiated 10/28/18) * Florastor 250mg PO BID Status: Acute (5) Pancreatic cancer metastasized to liver Assessment & Plan: Procedure (10/11/18): Findings: Metastasis to the liver, grossly single nodule. Cystic lesion and harden pancreas. - Pathology: Adenocarcinoma, favor pancreatico-Biliary Labs and imaging: - CEA: 42.5, CA19-9: 1980, CA125: 36.2 - Abdomen/Pelvic CT: Heterogeneous hyperdense pancreatic mass measuring approximately 2.7 x 2.5 cm at the pancreatic body/tail. Ectatic dilated pancreatic duct. Additional cystic heterogeneous focus measuring approximately 15 x 14 mm is noted at the superior aspect of the pancreas. Appearance worrisome for malignant neoplasm. Wall thickening involving the 2nd portion of the duodenum of uncertain significance; considerations include infectious, inflammatory, or malignant etiologies. Correlate clinically and recommend further evaluation with direct visualization if indicated. Small pelvic free fluid Pain management: - Fenatyl 25mcg/hr 1 patch TD Q72 hours - Oxycodone 2 tab PO Q4H PRN Status: Acute (6) CHF (congestive heart failure) Assessment & Plan: on admission: - [id number] Imaging: - Chest X-ray (10/26/18): Findings are concerning for developing congestive heart failure Medication: - Lasix 20mg IV daily Status: Chronic (7) Diabetes mellitus Assessment & Plan: HgbA1C (09/07/18): 9.0 Accuchecks ISS- High dose Novolog 12 units AC Lantus 24units SC HS Will consider increasing insulin dose as blood sugar still elevated (likely 2/2 steroid use) Glipizide 10mg PO BID Januvia 100mg PO daily Hypoglycemia protocol Status: Acute (8) Hypothyroid Assessment & Plan: TSH/Free T4 (09/07/18): 9.5/0.30 - Continue Synthroid 100mcg PO daily Status: Acute (9) History of DVT (deep vein thrombosis) Assessment & Plan: - Continue Xarelto 20mg PO daily Status: Acute (10) Gout Assessment & Plan: Colchicine 0.6mg PO BID Status: Acute (11) Chr obstructive pulmonary disease w/ acute lower respiratory infxn Assessment & Plan: Consultation: * Pulmonology, Dr. Dickerson Imaging: Chest CT without contrast: Worsening airspace consolidative changes seen in the bilateral lower lobes; left greater than right. This may be the sequelae of acute infectious changes. Clinical correlation. Post treatment interval Medications: -Azithromycin 500mg IVPB daily (stared 10/27/18) -Duoneb 3ml IH RQ4 PRN for shortness of breath - Brovana 15mcg INH RQ12H - Solumedrol 40mg IVP daily, tapering off - BiPAP continuos - Florastor 250mg PO BID Status: Acute (12) History of anemia Assessment & Plan: H/H stable - Fergon 324mg PO TID Status: Acute (13) Ulcer Assessment & Plan: Sacral; stage 2 Wound care consult - Recommendation for use of hydrogen peroxide - Turn Q2H Status: Acute (14) Intertrigo Assessment & Plan: -Nystatin Powder BID Status: Acute (15) Psychiatric disturbance Assessment & Plan: Depression and anxiety Consultation * Psychiatry, Dr. Dexter----> Help appreciated Medications: * Clonazepam 0.5mg PO BID * Zoloft 50mg PO daily Status: Acute (16) Electrolyte disturbance Assessment & Plan: Resolved Hypomagnesemia and hypokalemia * Repleted appropriately * Continue to monitor with am labs Status: Acute (17) Fibromyalgia Assessment & Plan: -Home medication: Diazepam 5mg PO BID -Percocet 5/325mg 2 tab Q6H prn for pain Trazadone 50mg PO HS PRN Status: Acute (18) Prophylactic measure Assessment & Plan: -GI: Pepcid 20mg IV daily - DVT: Xarelto 20mg PO daily - PT/OT - After Palliative care consult on prior admission, Patient is now DNR/DNI; POLST form signed; refer to patient's chart - Hospice eval requested Disposition: I had an extensive conversation with patient about plan of care moving forward. She states that she would like to be placed on hospice as she is ready for her treatment to end. All plans and management discussed with Dr. Gutierres
[2018-11-03] MEDS: (Novolog) Insulin Aspart, Recombinant 100 u/ml 10 ml vial SC SCH ×3 (08:30→17:51)
[2018-11-03] MEDS: (Novolin R) Insulin Human Regular 100 units/ml vial SC SCH ×4 (08:30→21:16)
[2018-11-03 08:51] LABS: ALB/GLOB RATIO 1.3 (1.0-2.1); ALBUMIN 2.8 g/dL (3.5-5.0); ALT/SGPT 85 U/L (9-52); AST/SGOT 53 U/L (14-36); BLOOD UREA NITROGEN 42 mg/dL (7-17); CALCIUM 8.6 mg/dl (8.6-10.4); GFR NON-AFRICAN AMERICAN > 60
[2018-11-03 09:30] LABS: ANISOCYTOSIS SLIGHT; BANDS 1 % (0-2); HYPOCHROMIC SLIGHT; LYMPHOCYTE 8 % (20-40); MONOCYTE 6 % (0-10); MYELOCYTE 1 % (0-0); NEUTROPHIL 84 % (50-75); PLATELET ESTIMATE NORMAL (NORMAL); POIKILOCYTOSIS SLIGHT; TARGET CELLS SLIGHT; TOTAL CELLS COUNTED 100
[2018-11-03 09:31] LABS: OVALOCYTES SLIGHT; TEARDROP CELLS SLIGHT
[2018-11-03] MEDS: MethylPREDNISolone 40 mg Vial IVP SCH (09:48)
[2018-11-03] MEDS: Aritificial Tears (15ml) OU SCH ×2 (10:00→17:52)
[2018-11-03] MEDS: Multivitamin Vitamin B Complex (Nephro-Vite) Tab PO SCH (10:41)
[2018-11-03] MEDS: Oxycodone/Acetaminophen 5/325 mg Tab PO PRN ×2 (10:41→21:42)
[2018-11-03] MEDS: Saccharomyces Boulardi 250 mg Cap PO SCH ×2 (10:41→17:51)
[2018-11-03] MEDS: diltiaZEM 180 mg/24 Hours CD Cap PO SCH ×3 (10:42→17:50)
[2018-11-03] MEDS: Vancomycin Hydrochloride 250 mg Capsule (Oral) PO SCH ×4 (10:47→22:06)
[2018-11-03] MEDS: Azithromycin 500 MG in Sodium Chloride 0.9% 250 ML IVPB SCH (14:19)
[2018-11-03] MEDS: (Lantus) Insulin Glargine, Recombinant SC SCH (21:35)
[2018-11-04] MEDS: Piperacill/Tazo 3.375gm in Dex 3.375 GM/50 ML BAG IVPB SCH ×3 (01:41→17:34)
[2018-11-04] MEDS: metroNIDAZOLE IV 500 mg/100 ml 500 MG/100 ML BAG IVPB SCH ×3 (04:51→20:50)
[2018-11-04] MEDS: Levothyroxine 100 MCG TAB PO SCH (06:25)
[2018-11-04] MEDS: (Novolin R) Insulin Human Regular 100 units/ml vial SC SCH ×4 (07:06→21:18)
[2018-11-04] MEDS: (Novolog) Insulin Aspart, Recombinant 100 u/ml 10 ml vial SC SCH ×3 (07:06→17:34)
[2018-11-04] MEDS: Albuterol-Ipratrop 3 mg / 0.5 (3 ml) UD IH PRN (07:37)
[2018-11-04 08:21] LABS: BASO # 0.1 K/uL (0.0-0.2); BASO % 0.8 % (0.0-2.0); EOS % 0.1 % (0.0-4.0); HEMOGLOBIN 9.4 g/dL (11.0-16.0); LYMPH # 1.2 K/uL (1.0-4.3); LYMPH % 9.2 % (20.0-40.0); MEAN CELL VOLUME 78.2 fL (81.0-99.0); MEAN CORPUSCULAR HGB CONC 30.7 g/dL (33.0-37.0); MEAN PLATELET VOLUME 9.3 fL (7.2-11.7); MONO # 1.1 K/uL (0.0-0.8); MONO % 7.8 % (0.0-10.0); NEUT % 82.1 % (50.0-75.0); PLATELET COUNT 324 K/uL (130-400); RBC 3.92 Mil/uL (3.80-5.20); RED CELL DISTRIBUTION WIDTH 21.7 % (11.5-14.5); WHITE BLOOD COUNT 13.5 K/uL (4.8-10.8)
[2018-11-04 08:39] LABS: ALB/GLOB RATIO 1.3 (1.0-2.1); ALBUMIN 2.6 g/dL (3.5-5.0); ALT/SGPT 84 U/L (9-52); AST/SGOT 39 U/L (14-36); BLOOD UREA NITROGEN 35 mg/dL (7-17); CALCIUM 8.4 mg/dl (8.6-10.4); GFR NON-AFRICAN AMERICAN 56
[2018-11-04] MEDS: Multivitamin Vitamin B Complex (Nephro-Vite) Tab PO SCH (09:10)
[2018-11-04] MEDS: diltiaZEM 180 mg/24 Hours CD Cap PO SCH ×3 (09:10→17:35)
[2018-11-04] MEDS: Saccharomyces Boulardi 250 mg Cap PO SCH ×2 (09:11→17:48)
[2018-11-04] MEDS: MethylPREDNISolone 40 mg Vial IVP SCH (09:11)
[2018-11-04] MEDS: Vancomycin Hydrochloride 250 mg Capsule (Oral) PO SCH ×4 (09:12→20:59)
[2018-11-04] MEDS: Aritificial Tears (15ml) OU SCH ×2 (09:12→17:36)
[2018-11-04] MEDS ORDERED: Potassium Chloride 20 mEq ER Tab PO ONE (09:30)
[2018-11-04 10:13] LABS: ANISOCYTOSIS MODERATE; BANDS 1 % (0-2); HYPOCHROMIC SLIGHT; LYMPHOCYTE 7 % (20-40); MONOCYTE 7 % (0-10); NEUTROPHIL 85 % (50-75); PLATELET ESTIMATE NORMAL (NORMAL); TOTAL CELLS COUNTED 100
[2018-11-04 10:14] LABS: POIKILOCYTOSIS SLIGHT; SCHISTOCYTES SLIGHT
[2018-11-04] MEDS: Arformoterol 15 mcg/2 ml Inh Sol INH SCH ×2 (11:02→21:56)
[2018-11-04] MEDS: Oxycodone/Acetaminophen 5/325 mg Tab PO PRN ×2 (13:19→20:52)
--- NOTE | 2018-11-04 13:30 | CP.PCM.PN ---
Subjective - Date & Time of Evaluation Date of Evaluation: 11/04/18 Time of Evaluation: 07:40 - Subjective Subjective: Medicine note (Dr. Gutierres's service) Patient was seen and examined at bedside while on BiPAP. Patient denies any acute issues or complaints. During the second encounter on medicine rounds with Dr. Gutierres, patient is agreeable and requesting hospice. Objective - Vital Signs/Intake and Output Vital Signs (last 24 hours): Temp Pulse Resp BP Pulse Ox 98.4 F 85 20 135/83 98 11/04/18 08:42 11/04/18 08:42 11/04/18 08:42 11/04/18 09:11 11/04/18 08:42 Intake and Output: 11/04/18 11/04/18 06:59 18:59 Output Total 600 Balance -600 - Medications Medications: Current Medications Albuterol/Ipratropium (Duoneb 3 Mg/0.5 Mg (3 Ml) Ud) 3 ml IH RQ4 PRN PRN Reason: Shortness of Breath Last Admin: 11/04/18 07:37 Dose: 3 ml Arformoterol Tartrate (Brovana) 15 mcg INH RQ12@1000,2200 [facility] Last Admin: 11/04/18 11:02 Dose: 15 mcg Artificial Tears (Artificial Tears) 1 ml OU BID [facility] Last Admin: 11/04/18 09:12 Dose: 1 drop Clonazepam (Klonopin) 0.5 mg PO BID [facility] Last Admin: 11/04/18 09:10 Dose: 0.5 mg Colchicine (Colocrys) 0.6 mg PO BID [facility] Last Admin: 11/04/18 09:12 Dose: 0.6 mg Dextrose (Dextrose 50% Inj) 0 ml IVP .STAT PRN; Protocol PRN Reason: Hypoglycemia Protocol Dextrose (Glutose 15) 0 gm PO .ONCE PRN; Protocol PRN Reason: Hypoglycemia Protocol Diazepam (Valium) 5 mg PO BID [facility] Last Admin: 11/04/18 09:10 Dose: 5 mg Diltiazem HCl (Cardizem Cd) 180 mg PO TID [facility] Last Admin: 11/04/18 13:14 Dose: 180 mg Dronabinol (Marinol) 2.5 mg PO BID [facility] Last Admin: 11/04/18 09:11 Dose: 2.5 mg Ergocalciferol (Drisdol 50,000 Intl Units Cap) 1 cap PO Q7D [facility] Last Admin: 11/02/18 17:23 Dose: 1 cap Escitalopram Oxalate (Lexapro) 5 mg PO DAILY [facility] Last Admin: 11/04/18 09:12 Dose: 5 mg Famotidine (Pepcid) 20 mg IVP DAILY [facility] Last Admin: 11/04/18 09:11 Dose: 20 mg Fentanyl (Duragesic) 1 patch TD Q72H [facility] Last Admin: 11/03/18 11:55 Dose: Not Given Ferrous Gluconate (Fergon) 324 mg PO TID [facility] Last Admin: 11/04/18 13:14 Dose: 324 mg Furosemide (Lasix) 20 mg IVP DAILY [facility] Last Admin: 11/04/18 09:11 Dose: 20 mg Glucagon (Glucagen Diagnostic Kit) 0 mg IM .STAT PRN; Protocol PRN Reason: Hypoglycemia Protocol Metronidazole (Flagyl) 500 mg in 100 mls @ 100 mls/hr IVPB Q8H [facility]; Protocol Last Admin: 11/04/18 12:26 Dose: 100 mls/hr Azithromycin 500 mg/ Sodium (Chloride) 250 mls @ 167 mls/hr IVPB Q24H [facility]; Protocol Last Admin: 11/03/18 14:19 Dose: 167 mls/hr Piperacillin Sod/Tazobactam Sod (Zosyn 3.375 Gm Iv Premix) 3.375 gm in 50 mls @ 100 mls/hr IVPB Q8H [facility]; Protocol Last Admin: 11/04/18 08:16 Dose: 100 mls/hr Insulin Aspart (Novolog) 12 unit SC AC [facility] Last Admin: 11/04/18 12:04 Dose: 12 units Insulin Glargine (Lantus) 24 unit SC HS [facility] Last Admin: 11/03/18 21:35 Dose: 24 u Insulin Human Regular (Novolin R) 0 unit SC ACHS [facility]; Protocol Last Admin: 11/04/18 12:04 Dose: 6 units Levothyroxine Sodium (Synthroid) 100 mcg PO DAILY@0630 [facility] Last Admin: 11/04/18 06:25 Dose: 100 mcg Methylprednisolone (Solu-Medrol) 40 mg IVP DAILY [facility] Last Admin: 11/04/18 09:11 Dose: 40 mg Nystatin (Nystop Topical Powder) 1 applic TOP BID [facility] Last Admin: 11/04/18 09:44 Dose: 1 applic Oxycodone/Acetaminophen (Percocet 5/325 Mg Tab) 2 tab PO Q4H PRN PRN Reason: Pain, severe (8-10) Stop: 11/09/18 21:41 Last Admin: 11/04/18 13:19 Dose: 2 tab Rivaroxaban (Xarelto) 20 mg PO DAILY [facility] Last Admin: 11/04/18 09:12 Dose: 20 mg Saccharomyces Boulardii (Florastor) 250 mg PO BID [facility] Last Admin: 11/04/18 09:11 Dose: 250 mg Sertraline HCl (Zoloft) 50 mg PO DAILY [facility] Last Admin: 11/04/18 09:11 Dose: 50 mg Sitagliptin Phosphate (Januvia) 100 mg PO DAILY [facility] Last Admin: 11/04/18 09:10 Dose: 100 mg Trazodone HCl (Desyrel) 50 mg PO HS PRN PRN Reason: Sleep Last Admin: 11/03/18 21:36 Dose: 50 mg Trimethobenzamide HCl (Tigan) 200 mg IM Q8 PRN PRN Reason: Nausea/Vomiting Vancomycin HCl (Vancocin 250mg Capsule) 250 mg PO QID [facility] Last Admin: 11/04/18 13:14 Dose: 250 mg Vitamin B Complex/Vit C/Folic Acid (Nephro-Lavinia) 1 tab PO DAILY [facility] Last Admin: 11/04/18 09:10 Dose: 1 tab - Labs Labs: 11/04/18 08:09 11/04/18 08:09 PT 16.2 SECONDS (9.7-12.2) H 10/26/18 13:10 INR 1.5 10/26/18 13:10 APTT 29.0 SECONDS (21-34) 10/26/18 13:10 - Constitutional Appears: No Acute Distress - Head Exam Head Exam: ATRAUMATIC, NORMAL INSPECTION - Eye Exam Eye Exam: EOMI, Normal appearance - ENT Exam ENT Exam: Mucous Membranes Moist - Respiratory Exam Respiratory Exam: NORMAL BREATHING PATTERN Additional comments: BiPAP - Cardiovascular Exam Cardiovascular Exam: Tachycardia, REGULAR RHYTHM, +S1, +S2 - GI/Abdominal Exam GI & Abdominal Exam: Soft, Normal Bowel Sounds. absent: Distended, Firm, Guarding, Rigid, Tenderness - Extremities Exam Extremities Exam: Normal Inspection. absent: Calf Tenderness, Pedal Edema - Back Exam Additional comments: Sacral ulcer, stage 2, no drainage - Neurological Exam Neurological Exam: Alert, Awake, Oriented x3 - Psychiatric Exam Psychiatric exam: Flat Affect - Skin Skin Exam: Normal Color Assessment and Plan (1) Sepsis Assessment & Plan: Secondary to healthcare acquired pneumonia and bacteremia Consultation: - ID, Dr. Little---> help appreciated Labs/Vitals: - On admission: WBC (11.9); downtrending - Tachycardia, Afebrile [id number] - BC (10/26/18): Positive for gram negative val (after 4-5 days) - UC (10/26/18): No growth Imaging: Chest CT without contrast: Worsening airspace consolidative changes seen in the bilateral lower lobes; left greater than right. This may be the sequelae of acute infectious changes. Clinical correlation. Post treatment interval Medications: - Vancomycin 1gm IV daily (Received 2 doses- 10/26 & 10/27) -Azithromycin 500mg IVPB daily (stared 10/27/18) - Zosyn 3.375gm IV Q8H ( started 10/31/18) - Florastor 250mg PO BID Status: Acute (2) SVT (supraventricular tachycardia) Assessment & Plan: Consultation: * Licensed [place] Real Estate AppraiserDr. Pineda---> Help appreciated History of Tachycardia * [employer] at 11:00pm 10/27/18 for episode of SVT * Cardizem 180mg PO TID Status: Acute (3) Elevated troponin Assessment & Plan: Consultation: * Licensed [place] [employer] AppraiserDr. Pineda---> Help appreciated * No ST changes * No invasive intervention needed as per cardiology Status: Acute (4) Clostridium difficile infection Assessment & Plan: Dr. Anabel TORO---> help appreciated Labs: C-difficle toxin (10/27/18): Positive * This was checked due known exposure at the long-term prior to admission Medications: * Flagyl 500mg IV Q8H (Initiated 10/28/18)- end 11/07/18 * Zosyn 3.375gm IV Q6H ( Initiated 10/26/18)- end 11/07/18 * Florastor 250mg PO BID Status: Acute (5) Pancreatic cancer metastasized to liver Assessment & Plan: Procedure (10/11/18): Findings: Metastasis to the liver, grossly single nodule. Cystic lesion and harden pancreas. - Pathology: Adenocarcinoma, favor pancreatico-Biliary Labs and imaging: - CEA: 42.5, CA19-9: 1980, CA125: 36.2 - Abdomen/Pelvic CT: Heterogeneous hyperdense pancreatic mass measuring approximately 2.7 x 2.5 cm at the pancreatic body/tail. Ectatic dilated pancreatic duct. Additional cystic heterogeneous focus measuring approximately 15 x 14 mm is noted at the superior aspect of the pancreas. Appearance worrisome for malignant neoplasm. Wall thickening involving the 2nd portion of the duodenum of uncertain significance; considerations include infectious, inflammatory, or malignant etiologies. Correlate clinically and recommend further evaluation with direct visualization if indicated. Small pelvic free fluid Pain management: - Fenatyl 25mcg/hr 1 patch TD Q72 hours - Oxycodone 2 tab PO Q4H PRN Status: Acute (6) CHF (congestive heart failure) Assessment & Plan: on admission: - [id number]:[id number] Imaging: - Chest X-ray (10/26/18): Findings are concerning for developing congestive heart failure Medication: - Lasix 20mg IV daily Status: Chronic (7) Diabetes mellitus Assessment & Plan: HgbA1C (09/07/18): 9.0 Accuchecks ISS- High dose Novolog 12 units AC Lantus 24units SC HS Glipizide 10mg PO BID Januvia 100mg PO daily Hypoglycemia protocol Status: Acute (8) Hypothyroid Assessment & Plan: TSH/Free T4 (09/07/18): 9.5/0.30 - Continue Synthroid 100mcg PO daily Status: Acute (9) History of DVT (deep vein thrombosis) Assessment & Plan: - Continue Xarelto 20mg PO daily Status: Acute (10) Gout Assessment & Plan: Colchicine 0.6mg PO BID Status: Acute (11) Chr obstructive pulmonary disease w/ acute lower respiratory infxn Assessment & Plan: Consultation: * Pulmonology, Dr. Dickerson Imaging: Chest CT without contrast: Worsening airspace consolidative changes seen in the bilateral lower lobes; left greater than right. This may be the sequelae of acute infectious changes. Clinical correlation. Post treatment interval Medications: -Azithromycin 500mg IVPB daily (stared 10/27/18) -Duoneb 3ml IH RQ4 PRN for shortness of breath - Brovana 15mcg INH RQ12H - Solumedrol 40mg IVP daily, tapering off - BiPAP continuos - Florastor 250mg PO BID Status: Acute (12) History of anemia Assessment & Plan: H/H stable - Fergon 324mg PO TID Status: Acute (13) Ulcer Assessment & Plan: Sacral; stage 2 Wound care consult - Recommendation for use of hydrogen peroxide - Turn Q2H Status: Acute (14) Intertrigo Assessment & Plan: -Nystatin Powder BID Status: Acute (15) Psychiatric disturbance Assessment & Plan: Depression and anxiety Consultation * Psychiatry, Dr. Dexter----> Help appreciated Medications: * Clonazepam 0.5mg PO BID * Zoloft 50mg PO daily Status: Acute (16) Electrolyte disturbance Assessment & Plan: Resolved Hypomagnesemia and hypokalemia * Repleted appropriately * Continue to monitor with am labs Status: Acute (17) Fibromyalgia Assessment & Plan: -Home medication: Diazepam 5mg PO BID -Percocet 5/325mg 2 tab Q6H prn for pain Trazadone 50mg PO HS PRN Status: Acute (18) Prophylactic measure Assessment & Plan: -GI: Pepcid 20mg IV daily - DVT: Xarelto 20mg PO daily - PT/OT - After Palliative care consult on prior admission, Patient is now DNR/DNI; POLST form signed; refer to patient's chart - Hospice evaluation ordered 11/03/18 as per patient's request - As per lining caser, Hospice meeting with patient's daughter at 4:00pm, 11/04/18 Disposition: Plans for hospice meeting with patient's daughter 11/04/18 All plans and management discussed with Dr. Gutierres Status: Acute
[2018-11-04] MEDS: Azithromycin 500 MG in Sodium Chloride 0.9% 250 ML IVPB SCH (13:46)
[2018-11-04] MEDS: (Lantus) Insulin Glargine, Recombinant SC SCH (21:02)
--- NOTE | 2018-11-04 21:12 | CP.PCM.PN ---
Subjective - Date & Time of Evaluation Date of Evaluation: 11/03/18 Time of Evaluation: 18:00 - Subjective Subjective: No complaints. Objective - Vital Signs/Intake and Output Vital Signs (last 24 hours): Temp Pulse Resp BP Pulse Ox 98.4 F 102 H 20 119/67 100 11/04/18 08:42 11/04/18 16:44 11/04/18 15:13 11/04/18 15:13 11/04/18 15:13 Intake and Output: 11/04/18 11/05/18 18:59 06:59 Intake Total 350 Output Total 1400 Balance -1050 - Medications Medications: Current Medications Albuterol/Ipratropium (Duoneb 3 Mg/0.5 Mg (3 Ml) Ud) 3 ml IH RQ4 PRN PRN Reason: Shortness of Breath Last Admin: 11/04/18 07:37 Dose: 3 ml Arformoterol Tartrate (Brovana) 15 mcg INH RQ12@1000,2200 [facility] Last Admin: 11/04/18 11:02 Dose: 15 mcg Artificial Tears (Artificial Tears) 1 ml OU BID [facility] Last Admin: 11/04/18 17:36 Dose: Not Given Clonazepam (Klonopin) 0.5 mg PO BID [facility] Last Admin: 11/04/18 17:35 Dose: 0.5 mg Colchicine (Colocrys) 0.6 mg PO BID [facility] Last Admin: 11/04/18 17:36 Dose: 0.6 mg Dextrose (Dextrose 50% Inj) 0 ml IVP .STAT PRN; Protocol PRN Reason: Hypoglycemia Protocol Dextrose (Glutose 15) 0 gm PO .ONCE PRN; Protocol PRN Reason: Hypoglycemia Protocol Diazepam (Valium) 5 mg PO BID [facility] Last Admin: 11/04/18 17:35 Dose: 5 mg Diltiazem HCl (Cardizem Cd) 180 mg PO TID [facility] Last Admin: 11/04/18 17:35 Dose: 180 mg Dronabinol (Marinol) 2.5 mg PO BID [facility] Last Admin: 11/04/18 17:35 Dose: 2.5 mg Ergocalciferol (Drisdol 50,000 Intl Units Cap) 1 cap PO Q7D [facility] Last Admin: 11/02/18 17:23 Dose: 1 cap Escitalopram Oxalate (Lexapro) 5 mg PO DAILY [facility] Last Admin: 11/04/18 09:12 Dose: 5 mg Famotidine (Pepcid) 20 mg PO DAILY [facility] Fentanyl (Duragesic) 1 patch TD Q72H [facility] Last Admin: 11/03/18 11:55 Dose: Not Given Ferrous Gluconate (Fergon) 324 mg PO TID [facility] Last Admin: 11/04/18 17:37 Dose: 324 mg Furosemide (Lasix) 20 mg IVP DAILY [facility] Last Admin: 11/04/18 09:11 Dose: 20 mg Glucagon (Glucagen Diagnostic Kit) 0 mg IM .STAT PRN; Protocol PRN Reason: Hypoglycemia Protocol Metronidazole (Flagyl) 500 mg in 100 mls @ 100 mls/hr IVPB Q8H [facility]; Protocol Last Admin: 11/04/18 20:50 Dose: 100 mls/hr Azithromycin 500 mg/ Sodium (Chloride) 250 mls @ 167 mls/hr IVPB Q24H [facility]; Protocol Last Admin: 11/04/18 13:46 Dose: 167 mls/hr Piperacillin Sod/Tazobactam Sod (Zosyn 3.375 Gm Iv Premix) 3.375 gm in 50 mls @ 100 mls/hr IVPB Q8H [facility]; Protocol Last Admin: 11/04/18 17:34 Dose: 100 mls/hr Insulin Aspart (Novolog) 12 unit SC AC [facility] Last Admin: 11/04/18 17:34 Dose: 12 units Insulin Glargine (Lantus) 24 unit SC HS [facility] Last Admin: 11/03/18 21:35 Dose: 24 u Insulin Human Regular (Novolin R) 0 unit SC ACHS [facility]; Protocol Last Admin: 11/04/18 17:35 Dose: 8 units Levothyroxine Sodium (Synthroid) 100 mcg PO DAILY@0630 [facility] Last Admin: 11/04/18 06:25 Dose: 100 mcg Methylprednisolone (Solu-Medrol) 20 mg IVP DAILY [facility] Nystatin (Nystop Topical Powder) 1 applic TOP BID [facility] Last Admin: 11/04/18 17:45 Dose: Not Given Oxycodone/Acetaminophen (Percocet 5/325 Mg Tab) 2 tab PO Q4H PRN PRN Reason: Pain, severe (8-10) Stop: 11/09/18 21:41 Last Admin: 11/04/18 20:52 Dose: 2 tab Rivaroxaban (Xarelto) 20 mg PO DAILY [facility] Last Admin: 11/04/18 09:12 Dose: 20 mg Saccharomyces Boulardii (Florastor) 250 mg PO BID [facility] Last Admin: 11/04/18 17:48 Dose: 250 mg Sertraline HCl (Zoloft) 50 mg PO DAILY [facility] Last Admin: 11/04/18 09:11 Dose: 50 mg Sitagliptin Phosphate (Januvia) 100 mg PO DAILY [facility] Last Admin: 11/04/18 09:10 Dose: 100 mg Trazodone HCl (Desyrel) 50 mg PO HS PRN PRN Reason: Sleep Last Admin: 11/03/18 21:36 Dose: 50 mg Trimethobenzamide HCl (Tigan) 200 mg IM Q8 PRN PRN Reason: Nausea/Vomiting Vancomycin HCl (Vancocin 250mg Capsule) 250 mg PO QID [facility] Last Admin: 11/04/18 20:59 Dose: 250 mg Vitamin B Complex/Vit C/Folic Acid (Nephro-Lavinia) 1 tab PO DAILY [facility] Last Admin: 11/04/18 09:10 Dose: 1 tab - Labs Labs: 11/04/18 08:09 11/04/18 08:09 PT 16.2 SECONDS (9.7-12.2) H 10/26/18 13:10 INR 1.5 10/26/18 13:10 APTT 29.0 SECONDS (21-34) 10/26/18 13:10 - Head Exam Head Exam: ATRAUMATIC - Eye Exam Eye Exam: Normal appearance - ENT Exam ENT Exam: Mucous Membranes Dry - Respiratory Exam Respiratory Exam: NORMAL BREATHING PATTERN - Cardiovascular Exam Cardiovascular Exam: +S1, +S2 - GI/Abdominal Exam GI & Abdominal Exam: Normal Bowel Sounds Assessment and Plan (1) Anemia Assessment & Plan: anemia of chronic disease Status: Acute (2) Pancreatic cancer metastasized to liver Assessment & Plan: deferred chemotherapy PDL1 and MSI testing to see if pt would benefit from immunotherapy Status: Acute
--- NOTE | 2018-11-04 21:13 | CP.PCM.PN ---
Subjective - Date & Time of Evaluation Date of Evaluation: 11/04/18 Time of Evaluation: 19:00 - Subjective Subjective: On bipap Objective - Vital Signs/Intake and Output Vital Signs (last 24 hours): Temp Pulse Resp BP Pulse Ox 98.4 F 102 H 20 119/67 100 11/04/18 08:42 11/04/18 16:44 11/04/18 15:13 11/04/18 15:13 11/04/18 15:13 Intake and Output: 11/04/18 11/05/18 18:59 06:59 Intake Total 350 Output Total 1400 Balance -1050 - Medications Medications: Current Medications Albuterol/Ipratropium (Duoneb 3 Mg/0.5 Mg (3 Ml) Ud) 3 ml IH RQ4 PRN PRN Reason: Shortness of Breath Last Admin: 11/04/18 07:37 Dose: 3 ml Arformoterol Tartrate (Brovana) 15 mcg INH RQ12@1000,2200 [facility] Last Admin: 11/04/18 11:02 Dose: 15 mcg Artificial Tears (Artificial Tears) 1 ml OU BID [facility] Last Admin: 11/04/18 17:36 Dose: Not Given Clonazepam (Klonopin) 0.5 mg PO BID [facility] Last Admin: 11/04/18 17:35 Dose: 0.5 mg Colchicine (Colocrys) 0.6 mg PO BID [facility] Last Admin: 11/04/18 17:36 Dose: 0.6 mg Dextrose (Dextrose 50% Inj) 0 ml IVP .STAT PRN; Protocol PRN Reason: Hypoglycemia Protocol Dextrose (Glutose 15) 0 gm PO .ONCE PRN; Protocol PRN Reason: Hypoglycemia Protocol Diazepam (Valium) 5 mg PO BID [facility] Last Admin: 11/04/18 17:35 Dose: 5 mg Diltiazem HCl (Cardizem Cd) 180 mg PO TID [facility] Last Admin: 11/04/18 17:35 Dose: 180 mg Dronabinol (Marinol) 2.5 mg PO BID [facility] Last Admin: 11/04/18 17:35 Dose: 2.5 mg Ergocalciferol (Drisdol 50,000 Intl Units Cap) 1 cap PO Q7D [facility] Last Admin: 11/02/18 17:23 Dose: 1 cap Escitalopram Oxalate (Lexapro) 5 mg PO DAILY [facility] Last Admin: 11/04/18 09:12 Dose: 5 mg Famotidine (Pepcid) 20 mg PO DAILY [facility] Fentanyl (Duragesic) 1 patch TD Q72H [facility] Last Admin: 11/03/18 11:55 Dose: Not Given Ferrous Gluconate (Fergon) 324 mg PO TID [facility] Last Admin: 11/04/18 17:37 Dose: 324 mg Furosemide (Lasix) 20 mg IVP DAILY [facility] Last Admin: 11/04/18 09:11 Dose: 20 mg Glucagon (Glucagen Diagnostic Kit) 0 mg IM .STAT PRN; Protocol PRN Reason: Hypoglycemia Protocol Metronidazole (Flagyl) 500 mg in 100 mls @ 100 mls/hr IVPB Q8H [facility]; Protocol Last Admin: 11/04/18 20:50 Dose: 100 mls/hr Azithromycin 500 mg/ Sodium (Chloride) 250 mls @ 167 mls/hr IVPB Q24H [facility]; Protocol Last Admin: 11/04/18 13:46 Dose: 167 mls/hr Piperacillin Sod/Tazobactam Sod (Zosyn 3.375 Gm Iv Premix) 3.375 gm in 50 mls @ 100 mls/hr IVPB Q8H [facility]; Protocol Last Admin: 11/04/18 17:34 Dose: 100 mls/hr Insulin Aspart (Novolog) 12 unit SC AC [facility] Last Admin: 11/04/18 17:34 Dose: 12 units Insulin Glargine (Lantus) 24 unit SC HS [facility] Last Admin: 11/03/18 21:35 Dose: 24 u Insulin Human Regular (Novolin R) 0 unit SC ACHS [facility]; Protocol Last Admin: 11/04/18 17:35 Dose: 8 units Levothyroxine Sodium (Synthroid) 100 mcg PO DAILY@0630 [facility] Last Admin: 11/04/18 06:25 Dose: 100 mcg Methylprednisolone (Solu-Medrol) 20 mg IVP DAILY [facility] Nystatin (Nystop Topical Powder) 1 applic TOP BID [facility] Last Admin: 11/04/18 17:45 Dose: Not Given Oxycodone/Acetaminophen (Percocet 5/325 Mg Tab) 2 tab PO Q4H PRN PRN Reason: Pain, severe (8-10) Stop: 11/09/18 21:41 Last Admin: 11/04/18 20:52 Dose: 2 tab Rivaroxaban (Xarelto) 20 mg PO DAILY [facility] Last Admin: 11/04/18 09:12 Dose: 20 mg Saccharomyces Boulardii (Florastor) 250 mg PO BID [facility] Last Admin: 11/04/18 17:48 Dose: 250 mg Sertraline HCl (Zoloft) 50 mg PO DAILY [facility] Last Admin: 11/04/18 09:11 Dose: 50 mg Sitagliptin Phosphate (Januvia) 100 mg PO DAILY [facility] Last Admin: 11/04/18 09:10 Dose: 100 mg Trazodone HCl (Desyrel) 50 mg PO HS PRN PRN Reason: Sleep Last Admin: 11/03/18 21:36 Dose: 50 mg Trimethobenzamide HCl (Tigan) 200 mg IM Q8 PRN PRN Reason: Nausea/Vomiting Vancomycin HCl (Vancocin 250mg Capsule) 250 mg PO QID [facility] Last Admin: 11/04/18 20:59 Dose: 250 mg Vitamin B Complex/Vit C/Folic Acid (Nephro-Lavinia) 1 tab PO DAILY [facility] Last Admin: 11/04/18 09:10 Dose: 1 tab - Labs Labs: 11/04/18 08:09 11/04/18 08:09 PT 16.2 SECONDS (9.7-12.2) H 10/26/18 13:10 INR 1.5 10/26/18 13:10 APTT 29.0 SECONDS (21-34) 10/26/18 13:10 - Head Exam Head Exam: ATRAUMATIC - Eye Exam Eye Exam: Normal appearance - ENT Exam ENT Exam: Mucous Membranes Dry - Respiratory Exam Respiratory Exam: NORMAL BREATHING PATTERN - Cardiovascular Exam Cardiovascular Exam: +S1, +S2 - GI/Abdominal Exam GI & Abdominal Exam: Normal Bowel Sounds Assessment and Plan (1) Anemia Assessment & Plan: anemia of chronic disease Status: Acute (2) Pancreatic cancer metastasized to liver Assessment & Plan: deferred chemotherapy PDL1 and MSI testing to see if pt would benefit from immunotherapy Status: Acute
[2018-11-05] MEDS: Piperacill/Tazo 3.375gm in Dex 3.375 GM/50 ML BAG IVPB SCH ×3 (00:15→17:48)
[2018-11-05] MEDS: metroNIDAZOLE IV 500 mg/100 ml 500 MG/100 ML BAG IVPB SCH ×3 (04:49→21:42)
[2018-11-05] MEDS: Levothyroxine 100 MCG TAB PO SCH (05:56)
[2018-11-05] MEDS: (Novolin R) Insulin Human Regular 100 units/ml vial SC SCH ×4 (07:27→21:40)
[2018-11-05 07:44] LABS: BASO % 0.4 % (0.0-2.0); EOS % 0.3 % (0.0-4.0); HEMOGLOBIN 9.4 g/dL (11.0-16.0); LYMPH # 1.2 K/uL (1.0-4.3); LYMPH % 8.7 % (20.0-40.0); MEAN CELL VOLUME 77.6 fL (81.0-99.0); MEAN CORPUSCULAR HEMOGLOBIN 24.1 pg (27.0-31.0); MEAN PLATELET VOLUME 8.8 fL (7.2-11.7); MONO % 7.6 % (0.0-10.0); NEUT # 11.4 K/uL (1.8-7.0); NRBC % 0.1 % (0.0-2.0); PLATELET COUNT 304 K/uL (130-400); RBC 3.88 Mil/uL (3.80-5.20); RED CELL DISTRIBUTION WIDTH 21.6 % (11.5-14.5); WHITE BLOOD COUNT 13.7 K/uL (4.8-10.8)
[2018-11-05 08:05] LABS: ALB/GLOB RATIO 1.3 (1.0-2.1); ALBUMIN 2.7 g/dL (3.5-5.0); ALT/SGPT 79 U/L (9-52); AST/SGOT 41 U/L (14-36); BLOOD UREA NITROGEN 32 mg/dL (7-17); CALCIUM 8.5 mg/dl (8.6-10.4); GFR NON-AFRICAN AMERICAN > 60
[2018-11-05] MEDS: (Novolog) Insulin Aspart, Recombinant 100 u/ml 10 ml vial SC SCH ×3 (08:05→17:45)
[2018-11-05] MEDS: Albuterol-Ipratrop 3 mg / 0.5 (3 ml) UD IH PRN (08:19)
[2018-11-05 10:33] LABS: LYMPHOCYTE 5 % (20-40); MONOCYTE 8 % (0-10); NEUTROPHIL 87 % (50-75); PLATELET ESTIMATE NORMAL (NORMAL); TOTAL CELLS COUNTED 100
[2018-11-05 10:34] LABS: ANISOCYTOSIS SLIGHT; BURR CELLS SLIGHT; OVALOCYTES SLIGHT; SCHISTOCYTES SLIGHT
[2018-11-05 10:35] LABS: HYPOCHROMIC MODERATE; POLYCHROMIC SLIGHT; TOXIC GRANULATION PRESENT
[2018-11-05 10:36] LABS: MICROCYTOSIS SLIGHT
[2018-11-05] MEDS: Multivitamin Vitamin B Complex (Nephro-Vite) Tab PO SCH (10:42)
[2018-11-05] MEDS: MethylPREDNISolone 40 mg Vial IVP SCH (10:43)
[2018-11-05] MEDS: diltiaZEM 180 mg/24 Hours CD Cap PO SCH ×3 (10:43→17:44)
[2018-11-05] MEDS: Vancomycin Hydrochloride 250 mg Capsule (Oral) PO SCH ×4 (10:45→21:40)
[2018-11-05] MEDS: Aritificial Tears (15ml) OU SCH ×2 (10:45→17:44)
[2018-11-05] MEDS: Saccharomyces Boulardi 250 mg Cap PO SCH ×2 (10:46→17:44)
[2018-11-05] MEDS: Azithromycin 500 MG in Sodium Chloride 0.9% 250 ML IVPB SCH (14:05)
[2018-11-05] MEDS: (Lantus) Insulin Glargine, Recombinant SC SCH (21:40)
[2018-11-05] MEDS: Oxycodone/Acetaminophen 5/325 mg Tab PO PRN (21:43)
[2018-11-05] MEDS: Arformoterol 15 mcg/2 ml Inh Sol INH SCH (22:36)
[2018-11-06] MEDS: Piperacill/Tazo 3.375gm in Dex 3.375 GM/50 ML BAG IVPB SCH (00:30)
[2018-11-06] MEDS: metroNIDAZOLE IV 500 mg/100 ml 500 MG/100 ML BAG IVPB SCH ×3 (04:12→22:42)
[2018-11-06] MEDS: Levothyroxine 100 MCG TAB PO SCH (06:51)
[2018-11-06 07:51] LABS: BASO % 0.3 % (0.0-2.0); EOS # 0.1 K/uL (0.0-0.7); EOS % 0.6 % (0.0-4.0); HEMOGLOBIN 9.5 g/dL (11.0-16.0); LYMPH % 7.9 % (20.0-40.0); MEAN CELL VOLUME 77.1 fL (81.0-99.0); MEAN CORPUSCULAR HEMOGLOBIN 24.4 pg (27.0-31.0); MEAN CORPUSCULAR HGB CONC 31.6 g/dL (33.0-37.0); MEAN PLATELET VOLUME 9.1 fL (7.2-11.7); MONO # 1.1 K/uL (0.0-0.8); MONO % 8.7 % (0.0-10.0); NEUT # 10.6 K/uL (1.8-7.0); NEUT % 82.5 % (50.0-75.0); NRBC % 0.1 % (0.0-2.0); PLATELET COUNT 283 K/uL (130-400); RBC 3.91 Mil/uL (3.80-5.20); RED CELL DISTRIBUTION WIDTH 22.3 % (11.5-14.5); WHITE BLOOD COUNT 12.9 K/uL (4.8-10.8)
[2018-11-06 08:02] LABS: ALB/GLOB RATIO 1.4 (1.0-2.1); ALBUMIN 2.7 g/dL (3.5-5.0); ALT/SGPT 86 U/L (9-52); AST/SGOT 37 U/L (14-36); BLOOD UREA NITROGEN 29 mg/dL (7-17); CALCIUM 8.3 mg/dl (8.6-10.4); GFR NON-AFRICAN AMERICAN > 60
[2018-11-06 08:33] LABS: LYMPHOCYTE 7 % (20-40); MONOCYTE 9 % (0-10); NEUTROPHIL 84 % (50-75); NUCLEATED RED BLOOD CELL 1 % (0-0); PLATELET ESTIMATE NORMAL (NORMAL); TOTAL CELLS COUNTED 100
[2018-11-06 08:34] LABS: ANISOCYTOSIS MODERATE; HYPOCHROMIC MODERATE; MICROCYTOSIS SLIGHT; OVALOCYTES SLIGHT; POLYCHROMIC SLIGHT; SCHISTOCYTES SLIGHT
[2018-11-06 08:35] LABS: BURR CELLS SLIGHT; LARGE PLATELETS PRESENT; POIKILOCYTOSIS MODERATE; TEARDROP CELLS SLIGHT
[2018-11-06] MEDS: (Novolin R) Insulin Human Regular 100 units/ml vial SC SCH ×4 (08:40→21:05)
[2018-11-06] MEDS: (Novolog) Insulin Aspart, Recombinant 100 u/ml 10 ml vial SC SCH ×3 (08:40→17:41)
[2018-11-06] MEDS: Saccharomyces Boulardi 250 mg Cap PO SCH ×2 (10:01→17:41)
[2018-11-06] MEDS: MethylPREDNISolone 40 mg Vial IVP SCH (10:01)
[2018-11-06] MEDS: Multivitamin Vitamin B Complex (Nephro-Vite) Tab PO SCH (10:02)
[2018-11-06] MEDS: diltiaZEM 180 mg/24 Hours CD Cap PO SCH ×3 (10:02→17:41)
[2018-11-06] MEDS: Vancomycin Hydrochloride 250 mg Capsule (Oral) PO SCH ×4 (10:03→21:04)
[2018-11-06] MEDS: Aritificial Tears (15ml) OU SCH ×2 (10:03→17:41)
[2018-11-06] MEDS: Arformoterol 15 mcg/2 ml Inh Sol INH SCH ×2 (10:24→19:40)
--- NOTE | 2018-11-06 13:31 | CP.PCM.PN ---
Subjective - Date & Time of Evaluation Date of Evaluation: 11/06/18 Time of Evaluation: 13:30 - Subjective Subjective: Pulmonary follow up, Covering Dr Dickerson The Patient was seen and examined at the bedside, Medical records reviewed, and management issues were discussed and formulated with the house staff. Events reviewed Reason for consultation: Shortness of breath and productive cough Objective - Vital Signs/Intake and Output Vital Signs (last 24 hours): Temp Pulse Resp BP Pulse Ox 97.6 F 80 18 133/77 96 11/06/18 07:45 11/06/18 13:26 11/06/18 07:45 11/06/18 10:01 11/06/18 07:45 Intake and Output: 11/06/18 11/06/18 06:59 18:59 Output Total 650 Balance -650 - Medications Medications: Current Medications Albuterol/Ipratropium (Duoneb 3 Mg/0.5 Mg (3 Ml) Ud) 3 ml IH RQ4 PRN PRN Reason: Shortness of Breath Last Admin: 11/05/18 08:19 Dose: 3 ml Arformoterol Tartrate (Brovana) 15 mcg INH RQ12@1000,2200 [facility] Last Admin: 11/06/18 10:24 Dose: 15 mcg Artificial Tears (Artificial Tears) 1 ml OU BID [facility] Last Admin: 11/06/18 10:03 Dose: 1 drop Clonazepam (Klonopin) 0.5 mg PO BID [facility] Last Admin: 11/06/18 10:02 Dose: 0.5 mg Colchicine (Colocrys) 0.6 mg PO BID [facility] Last Admin: 11/06/18 10:02 Dose: 0.6 mg Dextrose (Dextrose 50% Inj) 0 ml IVP .STAT PRN; Protocol PRN Reason: Hypoglycemia Protocol Dextrose (Glutose 15) 0 gm PO .ONCE PRN; Protocol PRN Reason: Hypoglycemia Protocol Diazepam (Valium) 5 mg PO BID [facility] Last Admin: 11/06/18 10:01 Dose: 5 mg Diltiazem HCl (Cardizem Cd) 180 mg PO TID [facility] Last Admin: 11/06/18 13:01 Dose: 180 mg Dronabinol (Marinol) 2.5 mg PO BID [facility] Last Admin: 11/06/18 10:00 Dose: 2.5 mg Ergocalciferol (Drisdol 50,000 Intl Units Cap) 1 cap PO Q7D [facility] Last Admin: 11/02/18 17:23 Dose: 1 cap Escitalopram Oxalate (Lexapro) 5 mg PO DAILY [facility] Last Admin: 11/06/18 10:02 Dose: 5 mg Famotidine (Pepcid) 20 mg PO DAILY [facility] Last Admin: 11/06/18 10:01 Dose: 20 mg Fentanyl (Duragesic) 1 patch TD Q72H [facility] Last Admin: 11/03/18 11:55 Dose: Not Given Ferrous Gluconate (Fergon) 324 mg PO TID [facility] Last Admin: 11/06/18 13:01 Dose: 324 mg Furosemide (Lasix) 20 mg IVP DAILY [facility] Last Admin: 11/06/18 10:01 Dose: 20 mg Glucagon (Glucagen Diagnostic Kit) 0 mg IM .STAT PRN; Protocol PRN Reason: Hypoglycemia Protocol Metronidazole (Flagyl) 500 mg in 100 mls @ 100 mls/hr IVPB Q8H [facility]; Protocol Last Admin: 11/06/18 12:58 Dose: 100 mls/hr Insulin Aspart (Novolog) 12 unit SC AC [facility] Last Admin: 11/06/18 12:58 Dose: 12 units Insulin Glargine (Lantus) 24 unit SC HS [facility] Last Admin: 11/05/18 21:40 Dose: 24 u Insulin Human Regular (Novolin R) 0 unit SC ACHS [facility]; Protocol Last Admin: 11/06/18 11:41 Dose: Not Given Levothyroxine Sodium (Synthroid) 100 mcg PO DAILY@0630 [facility] Last Admin: 11/06/18 06:51 Dose: 100 mcg Methylprednisolone (Solu-Medrol) 20 mg IVP DAILY [facility] Last Admin: 11/06/18 10:01 Dose: 20 mg Nystatin (Nystop Topical Powder) 1 applic TOP BID [facility] Last Admin: 11/06/18 10:03 Dose: 1 applic Oxycodone/Acetaminophen (Percocet 5/325 Mg Tab) 2 tab PO Q4H PRN PRN Reason: Pain, severe (8-10) Stop: 11/09/18 21:41 Last Admin: 11/05/18 21:43 Dose: 2 tab Rivaroxaban (Xarelto) 20 mg PO DAILY [facility] Last Admin: 11/06/18 10:02 Dose: 20 mg Saccharomyces Boulardii (Florastor) 250 mg PO BID [facility] Last Admin: 11/06/18 10:01 Dose: 250 mg Sertraline HCl (Zoloft) 50 mg PO DAILY [facility] Last Admin: 11/06/18 10:01 Dose: 50 mg Sitagliptin Phosphate (Januvia) 100 mg PO DAILY [facility] Last Admin: 11/06/18 10:00 Dose: 100 mg Trazodone HCl (Desyrel) 50 mg PO HS PRN PRN Reason: Sleep Last Admin: 11/05/18 21:40 Dose: 50 mg Trimethobenzamide HCl (Tigan) 200 mg IM Q8 PRN PRN Reason: Nausea/Vomiting Vancomycin HCl (Vancocin 250mg Capsule) 250 mg PO QID [facility] Last Admin: 11/06/18 13:01 Dose: 250 mg Vitamin B Complex/Vit C/Folic Acid (Nephro-Lavinia) 1 tab PO DAILY [facility] Last Admin: 11/06/18 10:02 Dose: 1 tab - Labs Labs: 11/06/18 07:33 11/06/18 07:33 PT 16.2 SECONDS (9.7-12.2) H 10/26/18 13:10 INR 1.5 10/26/18 13:10 APTT 29.0 SECONDS (21-34) 10/26/18 13:10
[2018-11-06] MEDS: Albuterol-Ipratrop 3 mg / 0.5 (3 ml) UD IH PRN (15:35)
[2018-11-06] MEDS: Oxycodone/Acetaminophen 5/325 mg Tab PO PRN (19:28)
[2018-11-06] MEDS: (Lantus) Insulin Glargine, Recombinant SC SCH (21:05)
[2018-11-07] MEDS: metroNIDAZOLE IV 500 mg/100 ml 500 MG/100 ML BAG IVPB SCH ×3 (05:55→21:39)
[2018-11-07] MEDS: Levothyroxine 100 MCG TAB PO SCH (05:56)
[2018-11-07] MEDS: Albuterol-Ipratrop 3 mg / 0.5 (3 ml) UD IH PRN (07:46)
[2018-11-07] MEDS: (Novolin R) Insulin Human Regular 100 units/ml vial SC SCH ×4 (07:48→21:37)
[2018-11-07 07:58] LABS: BASO # 0.1 K/uL (0.0-0.2); BASO % 0.6 % (0.0-2.0); EOS % 0.3 % (0.0-4.0); HEMOGLOBIN 9.8 g/dL (11.0-16.0); LYMPH # 1.5 K/uL (1.0-4.3); LYMPH % 12.6 % (20.0-40.0); MEAN CORPUSCULAR HEMOGLOBIN 24.7 pg (27.0-31.0); MEAN CORPUSCULAR HGB CONC 31.6 g/dL (33.0-37.0); MEAN PLATELET VOLUME 9.5 fL (7.2-11.7); NEUT # 9.4 K/uL (1.8-7.0); NEUT % 78.5 % (50.0-75.0); NRBC % 0.1 % (0.0-2.0); RBC 3.98 Mil/uL (3.80-5.20); RED CELL DISTRIBUTION WIDTH 22.2 % (11.5-14.5)
[2018-11-07 08:29] LABS: ALB/GLOB RATIO 1.5 (1.0-2.1); ALBUMIN 2.8 g/dL (3.5-5.0); ALT/SGPT 95 U/L (9-52); AST/SGOT 63 U/L (14-36); BLOOD UREA NITROGEN 28 mg/dL (7-17); CALCIUM 8.3 mg/dl (8.6-10.4); GFR NON-AFRICAN AMERICAN > 60
[2018-11-07] MEDS: (Novolog) Insulin Aspart, Recombinant 100 u/ml 10 ml vial SC SCH ×3 (08:41→17:43)
[2018-11-07] MEDS: Oxycodone/Acetaminophen 5/325 mg Tab PO PRN ×3 (08:46→19:20)
--- NOTE | 2018-11-07 09:23 | CP.PCM.PN ---
Subjective - Date & Time of Evaluation Date of Evaluation: 11/07/18 Time of Evaluation: 09:23 - Subjective Subjective: Progress note for Dr. Gutierres Patient was seen and examined at bedside in no acute distress. Patient reports having chronic pains all over her body, but denies any new pains. She denies chest pain, palpitations, sob, n/v. No acute events overnight. Objective - Vital Signs/Intake and Output Vital Signs (last 24 hours): Temp Pulse Resp BP Pulse Ox 97.4 F L 84 20 127/74 98 11/07/18 08:32 11/07/18 08:32 11/07/18 08:32 11/07/18 08:32 11/07/18 08:32 Intake and Output: 11/07/18 11/07/18 06:59 18:59 Output Total 1200 Balance -1200 - Medications Medications: Current Medications Albuterol/Ipratropium (Duoneb 3 Mg/0.5 Mg (3 Ml) Ud) 3 ml IH RQ4 PRN PRN Reason: Shortness of Breath Last Admin: 11/07/18 07:46 Dose: 3 ml Arformoterol Tartrate (Brovana) 15 mcg INH RQ12@1000,2200 [facility] Last Admin: 11/06/18 19:40 Dose: 15 mcg Artificial Tears (Artificial Tears) 1 ml OU BID [facility] Last Admin: 11/06/18 17:41 Dose: 1 drop Clonazepam (Klonopin) 0.5 mg PO BID [facility] Last Admin: 11/06/18 17:41 Dose: 0.5 mg Colchicine (Colocrys) 0.6 mg PO BID [facility] Last Admin: 11/06/18 17:40 Dose: 0.6 mg Dextrose (Dextrose 50% Inj) 0 ml IVP .STAT PRN; Protocol PRN Reason: Hypoglycemia Protocol Dextrose (Glutose 15) 0 gm PO .ONCE PRN; Protocol PRN Reason: Hypoglycemia Protocol Diazepam (Valium) 5 mg PO BID [facility] Last Admin: 11/06/18 17:41 Dose: 5 mg Diltiazem HCl (Cardizem Cd) 180 mg PO TID [facility] Last Admin: 11/06/18 17:41 Dose: 180 mg Dronabinol (Marinol) 2.5 mg PO BID [facility] Last Admin: 11/06/18 17:41 Dose: 2.5 mg Ergocalciferol (Drisdol 50,000 Intl Units Cap) 1 cap PO Q7D [facility] Last Admin: 11/02/18 17:23 Dose: 1 cap Escitalopram Oxalate (Lexapro) 5 mg PO DAILY [facility] Last Admin: 11/06/18 10:02 Dose: 5 mg Famotidine (Pepcid) 20 mg PO DAILY [facility] Last Admin: 11/06/18 10:01 Dose: 20 mg Fentanyl (Duragesic) 1 patch TD Q72H [facility] Last Admin: 11/06/18 22:42 Dose: Not Given Ferrous Gluconate (Fergon) 324 mg PO TID [facility] Last Admin: 11/06/18 17:41 Dose: 324 mg Furosemide (Lasix) 20 mg IVP DAILY [facility] Last Admin: 11/06/18 10:01 Dose: 20 mg Glucagon (Glucagen Diagnostic Kit) 0 mg IM .STAT PRN; Protocol PRN Reason: Hypoglycemia Protocol Metronidazole (Flagyl) 500 mg in 100 mls @ 100 mls/hr IVPB Q8H [facility]; Protocol Last Admin: 11/07/18 05:55 Dose: 100 mls/hr Insulin Aspart (Novolog) 12 unit SC AC [facility] Last Admin: 11/07/18 08:41 Dose: 12 units Insulin Glargine (Lantus) 24 unit SC HS [facility] Last Admin: 11/06/18 21:05 Dose: 24 u Insulin Human Regular (Novolin R) 0 unit SC ACHS [facility]; Protocol Last Admin: 11/07/18 07:48 Dose: Not Given Levothyroxine Sodium (Synthroid) 100 mcg PO DAILY@0630 [facility] Last Admin: 11/07/18 05:56 Dose: 100 mcg Methylprednisolone (Solu-Medrol) 20 mg IVP DAILY [facility] Last Admin: 11/06/18 10:01 Dose: 20 mg Nystatin (Nystop Topical Powder) 1 applic TOP BID [facility] Last Admin: 11/06/18 17:41 Dose: 1 applic Oxycodone/Acetaminophen (Percocet 5/325 Mg Tab) 2 tab PO Q4H PRN PRN Reason: Pain, severe (8-10) Stop: 11/09/18 21:41 Last Admin: 11/07/18 08:46 Dose: 2 tab Rivaroxaban (Xarelto) 20 mg PO DAILY [facility] Last Admin: 11/06/18 10:02 Dose: 20 mg Saccharomyces Boulardii (Florastor) 250 mg PO BID [facility] Last Admin: 11/06/18 17:41 Dose: 250 mg Sertraline HCl (Zoloft) 50 mg PO DAILY [facility] Last Admin: 11/06/18 10:01 Dose: 50 mg Sitagliptin Phosphate (Januvia) 100 mg PO DAILY [facility] Last Admin: 11/06/18 10:00 Dose: 100 mg Trazodone HCl (Desyrel) 50 mg PO HS PRN PRN Reason: Sleep Last Admin: 11/06/18 21:04 Dose: 50 mg Trimethobenzamide HCl (Tigan) 200 mg IM Q8 PRN PRN Reason: Nausea/Vomiting Vancomycin HCl (Vancocin 250mg Capsule) 250 mg PO QID [facility] Last Admin: 11/06/18 21:04 Dose: 250 mg Vitamin B Complex/Vit C/Folic Acid (Nephro-Lavinia) 1 tab PO DAILY [facility] Last Admin: 11/06/18 10:02 Dose: 1 tab - Labs Labs: 11/07/18 07:48 11/07/18 07:48 PT 16.2 SECONDS (9.7-12.2) H 10/26/18 13:10 INR 1.5 10/26/18 13:10 APTT 29.0 SECONDS (21-34) 10/26/18 13:10 - Constitutional Appears: No Acute Distress - Head Exam Head Exam: ATRAUMATIC - Eye Exam Eye Exam: EOMI - ENT Exam ENT Exam: Mucous Membranes Moist - Respiratory Exam Respiratory Exam: Clear to Ausculation Bilateral, NORMAL BREATHING PATTERN. absent: Rales, Rhonchi, Wheezes - Cardiovascular Exam Cardiovascular Exam: REGULAR RHYTHM, +S1, +S2 - GI/Abdominal Exam GI & Abdominal Exam: Soft, Tenderness (LUQ pain), Normal Bowel Sounds. absent: Distended - Extremities Exam Extremities Exam: absent: Pedal Edema - Neurological Exam Neurological Exam: Alert, Awake, Oriented x3 - Psychiatric Exam Psychiatric exam: Normal Affect, Normal Mood - Skin Skin Exam: Dry, Normal Color, Warm Assessment and Plan - Assessment and Plan (Free Text) Plan: Sepsis - Secondary to healthcare acquired pneumonia and bacteremia - Consultaed ID, Dr. Little---> help appreciated Labs/Vitals: - On admission: WBC (11.9); downtrending - Tachycardia, Afebrile [id number] - BC (10/26/18): Positive for gram negative val (after 4-5 days) - UC (10/26/18): No growth Imaging: - Chest CT without contrast: Worsening airspace consolidative changes seen in the bilateral lower lobes; left greater than right. This may be the sequelae of acute infectious changes. Clinical correlation. Post treatment interval Medications: - Vancomycin 1gm IV daily (Received 2 doses- 10/26 & 10/27) - Azithromycin 500mg IVPB daily (stared 10/27/18) - Zosyn 3.375gm IV Q8H ( started 10/31/18) - Florastor 250mg PO BID SVT (supraventricular tachycardia) - Consulted Filer Repairer, Dr. Pineda---> Help appreciated - History of Tachycardia * ART COORDINATOR at 11:00pm 10/27/18 for episode of SVT * Cardizem 180mg PO TID Elevated troponin - Consulted Filer Repairer, Dr. Pineda---> Help appreciated * No ST changes * No invasive intervention needed as per cardiology Clostridium difficile infection - Consulted ID, Dr. Little---> help appreciated Labs: - C-difficle toxin (10/27/18): Positive * This was checked due known exposure at the halfway prior to admission Medications: * Flagyl 500mg IV Q8H (Initiated 10/28/18)- end 11/07/18 * Zosyn 3.375gm IV Q6H ( Initiated 10/26/18)- end 11/07/18 * Florastor 250mg PO BID Pancreatic cancer metastasized to liver - Metastasis to the liver, grossly single nodule. Cystic lesion and harden pancreas. - Pathology: Adenocarcinoma, favor pancreatico-Biliary Labs and imaging: - CEA: 42.5, CA19-9: 1980, CA125: 36.2 - Abdomen/Pelvic CT: Heterogeneous hyperdense pancreatic mass measuring approximately 2.7 x 2.5 cm at the pancreatic body/tail. Ectatic dilated pancreatic duct. Additional cystic heterogeneous focus measuring approximately 15 x 14 mm is noted at the superior aspect of the pancreas. Appearance worrisome for malignant neoplasm. Wall thickening involving the 2nd portion of the duodenum of uncertain significance; considerations include infectious, inflammatory, or malignant etiologies. Correlate clinically and recommend further evaluation with direct visualization if indicated. Small pelvic free fluid Pain management: - Fenatyl 25mcg/hr 1 patch TD Q72 hours - Oxycodone 2 tab PO Q4H PRN CHF (congestive heart failure) - BNP (on admission):1620 Imaging: - Chest X-ray (10/26/18): Findings are concerning for developing congestive heart failure Medication: - Lasix 20mg IV daily Diabetes mellitus HgbA1C (09/07/18): 9.0 Accuchecks ISS- High dose Novolog 12 units AC Lantus 24units SC HS Glipizide 10mg PO BID Januvia 100mg PO daily Hypoglycemia protocol Hypothyroid - TSH/Free T4 (09/07/18): 9.5/0.30 - Continue Synthroid 100mcg PO daily History of DVT (deep vein thrombosis) - Continue Xarelto 20mg PO daily Gout - Colchicine 0.6mg PO BID Chr obstructive pulmonary disease w/ acute lower respiratory infxn - Consulted Pulmonology, Dr. Dickerson Imaging: Chest CT without contrast: Worsening airspace consolidative changes seen in the bilateral lower lobes; left greater than right. This may be the sequelae of acute infectious changes. Clinical correlation. Post treatment interval Medications: - Azithromycin 500mg IVPB daily (stared 10/27/18) - Duoneb 3ml IH RQ4 PRN for shortness of breath - Brovana 15mcg INH RQ12H - Solumedrol 40mg IVP daily, tapering off - BiPAP continuos - Florastor 250mg PO BID History of anemia - H/H stable - Fergon 324mg PO TID Stage 2 Sacral Ulcer - Wound care consult - Recommendation for use of hydrogen peroxide - Turn Q2H Intertrigo - Nystatin Powder BID Psychiatric disturbance - Depression and anxiety - Consulted Psychiatry, Dr. Dexter----> Help appreciated Medications: * Clonazepam 0.5mg PO BID * Zoloft 50mg PO daily Electrolyte disturbance - Resolved - Hypomagnesemia and hypokalemia * Repleted appropriately * Continue to monitor with am labs Fibromyalgia - Home medication: Diazepam 5mg PO BID - Percocet 5/325mg 2 tab Q6H prn for pain - Trazadone 50mg PO HS PRN Prophylactic measure - GI: Pepcid 20mg IV daily - DVT: Xarelto 20mg PO daily - PT/OT - After Palliative care consult on prior admission, Patient is now DNR/DNI; POLST form signed; refer to patient's chart - Hospice evaluation ordered 11/03/18 as per patient's request - As per high risk case manager, had Hospice meeting with patient's daughter on 11/04/18- hospice will not take patient if bipap and purewick is required. Patient's daughter and case management working on home care plans. Case discussed with Dr. Nenita Preston, PGY2
--- NOTE | 2018-11-07 09:27 | CP.PCM.PN ---
Subjective - Date & Time of Evaluation Date of Evaluation: 11/07/18 Time of Evaluation: 09:27 Objective - Vital Signs/Intake and Output Vital Signs (last 24 hours): Temp Pulse Resp BP Pulse Ox 97.4 F L 84 20 127/74 98 11/07/18 08:32 11/07/18 08:32 11/07/18 08:32 11/07/18 08:32 11/07/18 08:32 Intake and Output: 11/07/18 11/07/18 06:59 18:59 Output Total 1200 Balance -1200 - Medications Medications: Current Medications Albuterol/Ipratropium (Duoneb 3 Mg/0.5 Mg (3 Ml) Ud) 3 ml IH RQ4 PRN PRN Reason: Shortness of Breath Last Admin: 11/07/18 07:46 Dose: 3 ml Arformoterol Tartrate (Brovana) 15 mcg INH RQ12@1000,2200 [facility] Last Admin: 11/06/18 19:40 Dose: 15 mcg Artificial Tears (Artificial Tears) 1 ml OU BID [facility] Last Admin: 11/06/18 17:41 Dose: 1 drop Clonazepam (Klonopin) 0.5 mg PO BID [facility] Last Admin: 11/06/18 17:41 Dose: 0.5 mg Colchicine (Colocrys) 0.6 mg PO BID [facility] Last Admin: 11/06/18 17:40 Dose: 0.6 mg Dextrose (Dextrose 50% Inj) 0 ml IVP .STAT PRN; Protocol PRN Reason: Hypoglycemia Protocol Dextrose (Glutose 15) 0 gm PO .ONCE PRN; Protocol PRN Reason: Hypoglycemia Protocol Diazepam (Valium) 5 mg PO BID [facility] Last Admin: 11/06/18 17:41 Dose: 5 mg Diltiazem HCl (Cardizem Cd) 180 mg PO TID [facility] Last Admin: 11/06/18 17:41 Dose: 180 mg Dronabinol (Marinol) 2.5 mg PO BID [facility] Last Admin: 11/06/18 17:41 Dose: 2.5 mg Ergocalciferol (Drisdol 50,000 Intl Units Cap) 1 cap PO Q7D [facility] Last Admin: 11/02/18 17:23 Dose: 1 cap Escitalopram Oxalate (Lexapro) 5 mg PO DAILY [facility] Last Admin: 11/06/18 10:02 Dose: 5 mg Famotidine (Pepcid) 20 mg PO DAILY [facility] Last Admin: 11/06/18 10:01 Dose: 20 mg Fentanyl (Duragesic) 1 patch TD Q72H [facility] Last Admin: 11/06/18 22:42 Dose: Not Given Ferrous Gluconate (Fergon) 324 mg PO TID [facility] Last Admin: 11/06/18 17:41 Dose: 324 mg Furosemide (Lasix) 20 mg IVP DAILY [facility] Last Admin: 11/06/18 10:01 Dose: 20 mg Glucagon (Glucagen Diagnostic Kit) 0 mg IM .STAT PRN; Protocol PRN Reason: Hypoglycemia Protocol Metronidazole (Flagyl) 500 mg in 100 mls @ 100 mls/hr IVPB Q8H [facility]; Protocol Last Admin: 11/07/18 05:55 Dose: 100 mls/hr Insulin Aspart (Novolog) 12 unit SC AC [facility] Last Admin: 11/07/18 08:41 Dose: 12 units Insulin Glargine (Lantus) 24 unit SC HS [facility] Last Admin: 11/06/18 21:05 Dose: 24 u Insulin Human Regular (Novolin R) 0 unit SC ACHS [facility]; Protocol Last Admin: 11/07/18 07:48 Dose: Not Given Levothyroxine Sodium (Synthroid) 100 mcg PO DAILY@0630 [facility] Last Admin: 11/07/18 05:56 Dose: 100 mcg Methylprednisolone (Solu-Medrol) 20 mg IVP DAILY [facility] Last Admin: 11/06/18 10:01 Dose: 20 mg Nystatin (Nystop Topical Powder) 1 applic TOP BID [facility] Last Admin: 11/06/18 17:41 Dose: 1 applic Oxycodone/Acetaminophen (Percocet 5/325 Mg Tab) 2 tab PO Q4H PRN PRN Reason: Pain, severe (8-10) Stop: 11/09/18 21:41 Last Admin: 11/07/18 08:46 Dose: 2 tab Rivaroxaban (Xarelto) 20 mg PO DAILY [facility] Last Admin: 11/06/18 10:02 Dose: 20 mg Saccharomyces Boulardii (Florastor) 250 mg PO BID [facility] Last Admin: 11/06/18 17:41 Dose: 250 mg Sertraline HCl (Zoloft) 50 mg PO DAILY [facility] Last Admin: 11/06/18 10:01 Dose: 50 mg Sitagliptin Phosphate (Januvia) 100 mg PO DAILY [facility] Last Admin: 11/06/18 10:00 Dose: 100 mg Trazodone HCl (Desyrel) 50 mg PO HS PRN PRN Reason: Sleep Last Admin: 11/06/18 21:04 Dose: 50 mg Trimethobenzamide HCl (Tigan) 200 mg IM Q8 PRN PRN Reason: Nausea/Vomiting Vancomycin HCl (Vancocin 250mg Capsule) 250 mg PO QID [facility] Last Admin: 11/06/18 21:04 Dose: 250 mg Vitamin B Complex/Vit C/Folic Acid (Nephro-Lavinia) 1 tab PO DAILY [facility] Last Admin: 11/06/18 10:02 Dose: 1 tab - Labs Labs: 11/07/18 07:48 11/07/18 07:48 PT 16.2 SECONDS (9.7-12.2) H 10/26/18 13:10 INR 1.5 10/26/18 13:10 APTT 29.0 SECONDS (21-34) 10/26/18 13:10
[2018-11-07] MEDS: Vancomycin Hydrochloride 250 mg Capsule (Oral) PO SCH ×4 (09:53→21:39)
[2018-11-07] MEDS: Aritificial Tears (15ml) OU SCH ×2 (09:53→17:42)
[2018-11-07] MEDS: MethylPREDNISolone 40 mg Vial IVP SCH (09:53)
[2018-11-07] MEDS: diltiaZEM 180 mg/24 Hours CD Cap PO SCH ×3 (09:54→17:41)
[2018-11-07] MEDS: Multivitamin Vitamin B Complex (Nephro-Vite) Tab PO SCH (09:54)
[2018-11-07] MEDS: Saccharomyces Boulardi 250 mg Cap PO SCH ×2 (09:55→17:41)
[2018-11-07] MEDS: Arformoterol 15 mcg/2 ml Inh Sol INH SCH ×2 (10:08→19:25)
[2018-11-07] MEDS: (Lantus) Insulin Glargine, Recombinant SC SCH (21:36)
--- NOTE | 2018-11-07 22:57 | CP.PCM.PN ---
Subjective - Date & Time of Evaluation Date of Evaluation: 11/05/18 Time of Evaluation: 16:00 - Subjective Subjective: Has chronic pain. Objective - Vital Signs/Intake and Output Vital Signs (last 24 hours): Temp Pulse Resp BP Pulse Ox 98.1 F 105 H 20 127/74 95 11/07/18 16:10 11/07/18 16:10 11/07/18 16:10 11/07/18 16:10 11/07/18 16:10 Intake and Output: 11/07/18 11/08/18 18:59 06:59 Intake Total 500 Output Total 300 Balance 200 - Medications Medications: Current Medications Albuterol/Ipratropium (Duoneb 3 Mg/0.5 Mg (3 Ml) Ud) 3 ml IH RQ4 PRN PRN Reason: Shortness of Breath Last Admin: 11/07/18 07:46 Dose: 3 ml Arformoterol Tartrate (Brovana) 15 mcg INH RQ12@1000,2200 ON LICENSE OF [facility] Last Admin: 11/07/18 19:25 Dose: 15 mcg Artificial Tears (Artificial Tears) 1 ml OU BID ON LICENSE OF [facility] Last Admin: 11/07/18 17:42 Dose: Not Given Clonazepam (Klonopin) 0.5 mg PO BID ON LICENSE OF [facility] Last Admin: 11/07/18 17:40 Dose: 0.5 mg Colchicine (Colocrys) 0.6 mg PO BID ON LICENSE OF [facility] Last Admin: 11/07/18 17:42 Dose: 0.6 mg Dextrose (Dextrose 50% Inj) 0 ml IVP .STAT PRN; Protocol PRN Reason: Hypoglycemia Protocol Dextrose (Glutose 15) 0 gm PO .ONCE PRN; Protocol PRN Reason: Hypoglycemia Protocol Diazepam (Valium) 5 mg PO BID ON [facility] OF [facility] Last Admin: 11/07/18 17:41 Dose: 5 mg Diltiazem HCl (Cardizem Cd) 180 mg PO TID ON LICENSE OF [facility] Last Admin: 11/07/18 17:41 Dose: 180 mg Dronabinol (Marinol) 2.5 mg PO BID ON [facility] OF [facility] Last Admin: 11/07/18 17:41 Dose: 2.5 mg Ergocalciferol (Drisdol 50,000 Intl Units Cap) 1 cap PO Q7D ON LICENSE OF [facility] Last Admin: 11/02/18 17:23 Dose: 1 cap Escitalopram Oxalate (Lexapro) 5 mg PO DAILY ON [facility] OF [facility] Last Admin: 11/07/18 09:53 Dose: 5 mg Famotidine (Pepcid) 20 mg PO DAILY ON [facility] Last Admin: 11/07/18 09:56 Dose: 20 mg Fentanyl (Duragesic) 1 patch TD Q72H ON [facility] OF [facility] Last Admin: 11/06/18 22:42 Dose: Not Given Ferrous Gluconate (Fergon) 324 mg PO TID ON LICENSE OF [facility] Last Admin: 11/07/18 17:41 Dose: 324 mg Furosemide (Lasix) 20 mg IVP DAILY ON [facility] Last Admin: 11/07/18 09:54 Dose: 20 mg Glucagon (Glucagen Diagnostic Kit) 0 mg IM .STAT PRN; Protocol PRN Reason: Hypoglycemia Protocol Metronidazole (Flagyl) 500 mg in 100 mls @ 100 mls/hr IVPB Q8H ON LICENSE OF [facility]; Protocol Last Admin: 11/07/18 21:39 Dose: 100 mls/hr Insulin Aspart (Novolog) 12 unit SC AC ON [facility] OF [facility] Last Admin: 11/07/18 17:43 Dose: 12 units Insulin Glargine (Lantus) 24 unit SC HS ON [facility] OF [facility] Last Admin: 11/07/18 21:36 Dose: Not Given Insulin Human Regular (Novolin R) 0 unit SC ACHS ON LICENSE OF [facility]; Protocol Last Admin: 11/07/18 21:37 Dose: Not Given Levothyroxine Sodium (Synthroid) 100 mcg PO DAILY@0630 ON [facility] OF [facility] Last Admin: 11/07/18 05:56 Dose: 100 mcg Methylprednisolone (Solu-Medrol) 20 mg IVP DAILY ON [facility] Last Admin: 11/07/18 09:53 Dose: 20 mg Nystatin (Nystop Topical Powder) 1 applic TOP BID ON [facility] OF [facility] Last Admin: 11/07/18 17:43 Dose: Not Given Oxycodone/Acetaminophen (Percocet 5/325 Mg Tab) 2 tab PO Q4H PRN PRN Reason: Pain, severe (8-10) Stop: 11/09/18 21:41 Last Admin: 11/07/18 19:20 Dose: 2 tab Rivaroxaban (Xarelto) 20 mg PO DAILY ON [facility] Last Admin: 11/07/18 09:56 Dose: 20 mg Saccharomyces Boulardii (Florastor) 250 mg PO BID ON [facility] Last Admin: 11/07/18 17:41 Dose: 250 mg Sertraline HCl (Zoloft) 50 mg PO DAILY ON [facility] Last Admin: 11/07/18 09:54 Dose: 50 mg Sitagliptin Phosphate (Januvia) 100 mg PO DAILY [facility] Last Admin: 11/07/18 09:54 Dose: 100 mg Trazodone HCl (Desyrel) 50 mg PO HS PRN PRN Reason: Sleep Last Admin: 11/07/18 21:36 Dose: 50 mg Trimethobenzamide HCl (Tigan) 200 mg IM Q8 PRN PRN Reason: Nausea/Vomiting Vancomycin HCl (Vancocin 250mg Capsule) 250 mg PO QID ON LICENSE OF [facility] Last Admin: 11/07/18 21:39 Dose: 250 mg Vitamin B Complex/Vit C/Folic Acid (Nephro-Lavinia) 1 tab PO DAILY ON LICENSE OF [facility] Last Admin: 11/07/18 09:54 Dose: 1 tab - Labs Labs: 11/07/18 07:48 11/07/18 07:48 PT 16.2 SECONDS (9.7-12.2) H 10/26/18 13:10 INR 1.5 10/26/18 13:10 APTT 29.0 SECONDS (21-34) 10/26/18 13:10 - Head Exam Head Exam: ATRAUMATIC - Eye Exam Eye Exam: Normal appearance - ENT Exam ENT Exam: Mucous Membranes Dry - Respiratory Exam Respiratory Exam: NORMAL BREATHING PATTERN - Cardiovascular Exam Cardiovascular Exam: +S1, +S2 - GI/Abdominal Exam GI & Abdominal Exam: Normal Bowel Sounds Assessment and Plan (1) Anemia Assessment & Plan: anemia of chronic disease Status: Acute (2) Pancreatic cancer metastasized to liver Assessment & Plan: deferred chemotherapy PDL1 and MSI testing to see if pt would benefit from immunotherapy Status: Acute
--- NOTE | 2018-11-07 22:58 | CP.PCM.PN ---
Subjective - Date & Time of Evaluation Date of Evaluation: 11/07/18 Time of Evaluation: 20:00 - Subjective Subjective: Has chronic pain. Objective - Vital Signs/Intake and Output Vital Signs (last 24 hours): Temp Pulse Resp BP Pulse Ox 98.1 F 105 H 20 127/74 95 11/07/18 16:10 11/07/18 16:10 11/07/18 16:10 11/07/18 16:10 11/07/18 16:10 Intake and Output: 11/07/18 11/08/18 18:59 06:59 Intake Total 500 Output Total 300 Balance 200 - Medications Medications: Current Medications Albuterol/Ipratropium (Duoneb 3 Mg/0.5 Mg (3 Ml) Ud) 3 ml IH RQ4 PRN PRN Reason: Shortness of Breath Last Admin: 11/07/18 07:46 Dose: 3 ml Arformoterol Tartrate (Brovana) 15 mcg INH RQ12@1000,2200 [facility] Last Admin: 11/07/18 19:25 Dose: 15 mcg Artificial Tears (Artificial Tears) 1 ml OU BID [facility] Last Admin: 11/07/18 17:42 Dose: Not Given Clonazepam (Klonopin) 0.5 mg PO BID [facility] Last Admin: 11/07/18 17:40 Dose: 0.5 mg Colchicine (Colocrys) 0.6 mg PO BID [facility] Last Admin: 11/07/18 17:42 Dose: 0.6 mg Dextrose (Dextrose 50% Inj) 0 ml IVP .STAT PRN; Protocol PRN Reason: Hypoglycemia Protocol Dextrose (Glutose 15) 0 gm PO .ONCE PRN; Protocol PRN Reason: Hypoglycemia Protocol Diazepam (Valium) 5 mg PO BID [facility] Last Admin: 11/07/18 17:41 Dose: 5 mg Diltiazem HCl (Cardizem Cd) 180 mg PO TID [facility] Last Admin: 11/07/18 17:41 Dose: 180 mg Dronabinol (Marinol) 2.5 mg PO BID [facility] Last Admin: 11/07/18 17:41 Dose: 2.5 mg Ergocalciferol (Drisdol 50,000 Intl Units Cap) 1 cap PO Q7D [facility] Last Admin: 11/02/18 17:23 Dose: 1 cap Escitalopram Oxalate (Lexapro) 5 mg PO DAILY [facility] Last Admin: 11/07/18 09:53 Dose: 5 mg Famotidine (Pepcid) 20 mg PO DAILY [facility] Last Admin: 11/07/18 09:56 Dose: 20 mg Fentanyl (Duragesic) 1 patch TD Q72H [facility] Last Admin: 11/06/18 22:42 Dose: Not Given Ferrous Gluconate (Fergon) 324 mg PO TID [facility] Last Admin: 11/07/18 17:41 Dose: 324 mg Furosemide (Lasix) 20 mg IVP DAILY [facility] Last Admin: 11/07/18 09:54 Dose: 20 mg Glucagon (Glucagen Diagnostic Kit) 0 mg IM .STAT PRN; Protocol PRN Reason: Hypoglycemia Protocol Metronidazole (Flagyl) 500 mg in 100 mls @ 100 mls/hr IVPB Q8H [facility]; Protocol Last Admin: 11/07/18 21:39 Dose: 100 mls/hr Insulin Aspart (Novolog) 12 unit SC AC [facility] Last Admin: 11/07/18 17:43 Dose: 12 units Insulin Glargine (Lantus) 24 unit SC HS [facility] Last Admin: 11/07/18 21:36 Dose: Not Given Insulin Human Regular (Novolin R) 0 unit SC ACHS [facility]; Protocol Last Admin: 11/07/18 21:37 Dose: Not Given Levothyroxine Sodium (Synthroid) 100 mcg PO DAILY@0630 [facility] Last Admin: 11/07/18 05:56 Dose: 100 mcg Methylprednisolone (Solu-Medrol) 20 mg IVP DAILY [facility] Last Admin: 11/07/18 09:53 Dose: 20 mg Nystatin (Nystop Topical Powder) 1 applic TOP BID [facility] Last Admin: 11/07/18 17:43 Dose: Not Given Oxycodone/Acetaminophen (Percocet 5/325 Mg Tab) 2 tab PO Q4H PRN PRN Reason: Pain, severe (8-10) Stop: 11/09/18 21:41 Last Admin: 11/07/18 19:20 Dose: 2 tab Rivaroxaban (Xarelto) 20 mg PO DAILY [facility] Last Admin: 11/07/18 09:56 Dose: 20 mg Saccharomyces Boulardii (Florastor) 250 mg PO BID [facility] Last Admin: 11/07/18 17:41 Dose: 250 mg Sertraline HCl (Zoloft) 50 mg PO DAILY [facility] Last Admin: 11/07/18 09:54 Dose: 50 mg Sitagliptin Phosphate (Januvia) 100 mg PO DAILY [facility] Last Admin: 11/07/18 09:54 Dose: 100 mg Trazodone HCl (Desyrel) 50 mg PO HS PRN PRN Reason: Sleep Last Admin: 11/07/18 21:36 Dose: 50 mg Trimethobenzamide HCl (Tigan) 200 mg IM Q8 PRN PRN Reason: Nausea/Vomiting Vancomycin HCl (Vancocin 250mg Capsule) 250 mg PO QID [facility] Last Admin: 11/07/18 21:39 Dose: 250 mg Vitamin B Complex/Vit C/Folic Acid (Nephro-Lavinia) 1 tab PO DAILY [facility] Last Admin: 11/07/18 09:54 Dose: 1 tab - Labs Labs: 11/07/18 07:48 11/07/18 07:48 PT 16.2 SECONDS (9.7-12.2) H 10/26/18 13:10 INR 1.5 10/26/18 13:10 APTT 29.0 SECONDS (21-34) 10/26/18 13:10 - Head Exam Head Exam: ATRAUMATIC - Eye Exam Eye Exam: Normal appearance - ENT Exam ENT Exam: Mucous Membranes Dry - Respiratory Exam Respiratory Exam: NORMAL BREATHING PATTERN - Cardiovascular Exam Cardiovascular Exam: +S1, +S2 - GI/Abdominal Exam GI & Abdominal Exam: Normal Bowel Sounds Assessment and Plan (1) Anemia Assessment & Plan: anemia of chronic disease Status: Acute (2) Pancreatic cancer metastasized to liver Assessment & Plan: deferred chemotherapy PDL1 and MSI testing to see if pt would benefit from immunotherapy Status: Acute
[2018-11-08] MEDS: Levothyroxine 100 MCG TAB PO SCH (06:14)
[2018-11-08] MEDS: metroNIDAZOLE IV 500 mg/100 ml 500 MG/100 ML BAG IVPB SCH ×3 (06:14→21:00)
[2018-11-08] MEDS: (Novolog) Insulin Aspart, Recombinant 100 u/ml 10 ml vial SC SCH ×3 (08:10→19:09)
[2018-11-08] MEDS: (Novolin R) Insulin Human Regular 100 units/ml vial SC SCH ×4 (08:10→21:01)
[2018-11-08] MEDS: Aritificial Tears (15ml) OU SCH ×2 (11:23→19:08)
[2018-11-08] MEDS: diltiaZEM 180 mg/24 Hours CD Cap PO SCH ×3 (11:23→19:07)
[2018-11-08] MEDS: Multivitamin Vitamin B Complex (Nephro-Vite) Tab PO SCH (11:24)
[2018-11-08] MEDS: Saccharomyces Boulardi 250 mg Cap PO SCH ×2 (11:24→19:08)
[2018-11-08] MEDS: Vancomycin Hydrochloride 250 mg Capsule (Oral) PO SCH ×2 (11:27→13:55)
[2018-11-08] MEDS: MethylPREDNISolone 40 mg Vial IVP SCH (11:27)
[2018-11-08] MEDS: Oxycodone/Acetaminophen 5/325 mg Tab PO PRN ×3 (11:32→20:57)
--- NOTE | 2018-11-08 14:08 | CP.PCM.PN ---
Subjective - Date & Time of Evaluation Date of Evaluation: 11/08/18 Time of Evaluation: 14:04 - Subjective Subjective: Medicine Note for Dr. Gutierres's Service Patient was seen and examined at bedside. Patient is depressed, admits to generalized body pain. Objective - Vital Signs/Intake and Output Vital Signs (last 24 hours): Temp Pulse Resp BP Pulse Ox 98.2 F 108 H 22 120/77 97 11/08/18 07:44 11/08/18 07:44 11/08/18 07:44 11/08/18 07:44 11/08/18 07:44 Intake and Output: 11/08/18 11/08/18 06:59 18:59 Intake Total 500 Output Total 800 Balance -300 - Medications Medications: Current Medications Albuterol/Ipratropium (Duoneb 3 Mg/0.5 Mg (3 Ml) Ud) 3 ml IH RQ4 PRN PRN Reason: Shortness of Breath Last Admin: 11/07/18 07:46 Dose: 3 ml Arformoterol Tartrate (Brovana) 15 mcg INH RQ12@1000,2200 [facility] Last Admin: 11/07/18 19:25 Dose: 15 mcg Artificial Tears (Artificial Tears) 1 ml OU BID [facility] Last Admin: 11/08/18 11:23 Dose: Not Given Clonazepam (Klonopin) 0.5 mg PO BID [facility] Last Admin: 11/08/18 11:24 Dose: Not Given Colchicine (Colocrys) 0.6 mg PO BID [facility] Last Admin: 11/08/18 11:24 Dose: Not Given Dextrose (Dextrose 50% Inj) 0 ml IVP .STAT PRN; Protocol PRN Reason: Hypoglycemia Protocol Dextrose (Glutose 15) 0 gm PO .ONCE PRN; Protocol PRN Reason: Hypoglycemia Protocol Diazepam (Valium) 5 mg PO BID [facility] Last Admin: 11/08/18 11:27 Dose: Not Given Diltiazem HCl (Cardizem Cd) 180 mg PO TID [facility] Last Admin: 11/08/18 13:54 Dose: Not Given Dronabinol (Marinol) 2.5 mg PO BID [facility] Last Admin: 11/08/18 11:24 Dose: Not Given Ergocalciferol (Drisdol 50,000 Intl Units Cap) 1 cap PO Q7D [facility] Last Admin: 11/02/18 17:23 Dose: 1 cap Escitalopram Oxalate (Lexapro) 5 mg PO DAILY [facility] Last Admin: 11/08/18 11:24 Dose: Not Given Famotidine (Pepcid) 20 mg PO DAILY [facility] Last Admin: 11/08/18 11:26 Dose: Not Given Fentanyl (Duragesic) 1 patch TD Q72H [facility] Last Admin: 11/06/18 22:42 Dose: Not Given Ferrous Gluconate (Fergon) 324 mg PO TID [facility] Last Admin: 11/08/18 13:54 Dose: Not Given Furosemide (Lasix) 20 mg IVP DAILY [facility] Last Admin: 11/08/18 11:24 Dose: Not Given Glucagon (Glucagen Diagnostic Kit) 0 mg IM .STAT PRN; Protocol PRN Reason: Hypoglycemia Protocol Metronidazole (Flagyl) 500 mg in 100 mls @ 100 mls/hr IVPB Q8H [facility]; Protocol Last Admin: 11/08/18 13:54 Dose: Not Given Insulin Aspart (Novolog) 12 unit SC AC [facility] Last Admin: 11/08/18 12:00 Dose: Not Given Insulin Glargine (Lantus) 24 unit SC HS [facility] Last Admin: 11/07/18 21:36 Dose: Not Given Insulin Human Regular (Novolin R) 0 unit SC [facility]; Protocol Last Admin: 11/08/18 11:45 Dose: Not Given Levothyroxine Sodium (Synthroid) 100 mcg PO DAILY@0630 [facility] Last Admin: 11/08/18 06:14 Dose: 100 mcg Methylprednisolone (Solu-Medrol) 20 mg IVP DAILY [facility] Last Admin: 11/08/18 11:27 Dose: Not Given Nystatin (Nystop Topical Powder) 1 applic TOP BID [facility] Last Admin: 11/08/18 11:26 Dose: Not Given Oxycodone/Acetaminophen (Percocet 5/325 Mg Tab) 2 tab PO Q4H PRN PRN Reason: Pain, severe (8-10) Stop: 11/09/18 21:41 Last Admin: 11/08/18 11:32 Dose: 2 tab Rivaroxaban (Xarelto) 20 mg PO DAILY [facility] Last Admin: 11/08/18 11:27 Dose: Not Given Saccharomyces Boulardii (Florastor) 250 mg PO BID [facility] Last Admin: 05/07/19 11:24 Dose: Not Given Sertraline HCl (Zoloft) 50 mg PO DAILY [facility] Last Admin: 11/08/18 11:27 Dose: Not Given Sitagliptin Phosphate (Januvia) 100 mg PO DAILY [facility] Last Admin: 11/08/18 11:24 Dose: Not Given Trazodone HCl (Desyrel) 50 mg PO HS PRN PRN Reason: Sleep Last Admin: 11/07/18 21:36 Dose: 50 mg Trimethobenzamide HCl (Tigan) 200 mg IM Q8 PRN PRN Reason: Nausea/Vomiting Vancomycin HCl (Vancocin 250mg Capsule) 250 mg PO QID [facility] Last Admin: 11/08/18 13:55 Dose: Not Given Vitamin B Complex/Vit C/Folic Acid (Nephro-Lavinia) 1 tab PO DAILY [facility] Last Admin: 11/08/18 11:24 Dose: Not Given - Labs Labs: 11/07/18 07:48 11/07/18 07:48 PT 16.2 SECONDS (9.7-12.2) H 10/26/18 13:10 INR 1.5 10/26/18 13:10 APTT 29.0 SECONDS (21-34) 10/26/18 13:10 - Additional Findings Additional findings: - Constitutional Appears: No Acute Distress - Head Exam Head Exam: ATRAUMATIC - Eye Exam Eye Exam: EOMI - ENT Exam ENT Exam: Mucous Membranes Moist - Respiratory Exam Respiratory Exam: Clear to Ausculation Bilateral, NORMAL BREATHING PATTERN. absent: Rales, Rhonchi, Wheezes - Cardiovascular Exam Cardiovascular Exam: REGULAR RHYTHM, +S1, +S2 - GI/Abdominal Exam GI & Abdominal Exam: Soft, Tenderness (LUQ pain), Normal Bowel Sounds. absent: Distended - Extremities Exam Extremities Exam: absent: Pedal Edema - Neurological Exam Neurological Exam: Alert, Awake, Oriented x3 - Psychiatric Exam Psychiatric exam: Depressed - Skin Skin Exam: Dry, Normal Color, Warm Assessment and Plan - Assessment and Plan (Free Text) Plan: Pancreatic Cancer with mets - Metastasis to the liver, grossly single nodule. Cystic lesion and harden pancreas. - Pathology: Adenocarcinoma, favor pancreatico-Biliary Labs and imaging: - CEA: 42.5, CA19-9: 1980, CA125: 36.2 - Abdomen/Pelvic CT: Heterogeneous hyperdense pancreatic mass measuring approximately 2.7 x 2.5 cm at the pancreatic body/tail. Ectatic dilated pancreatic duct. Additional cystic heterogeneous focus measuring approximately 15 x 14 mm is noted at the superior aspect of the pancreas. Appearance worrisome for malignant neoplasm. Wall thickening involving the 2nd portion of the duodenum of uncertain significance; considerations include infectious, inflammatory, or malignant etiologies. Correlate clinically and recommend fur ther evaluation with direct visualization if indicated. Small pelvic free fluid Pain management: - Fenatyl 25mcg/hr 1 patch TD Q72 hours - Oxycodone 2 tab PO Q4H PRN SVT (supraventricular tachycardia) - Consulted Senior Security Engineer, Dr. 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 Pineda---> Help appreciated * No ST changes * No invasive intervention needed as per cardiology Clostridium difficile infection - Consulted IDDr. Little---> help appreciated Labs: - C-difficle toxin (10/27/18): Positive * This was checked due known exposure at the longterm prior to admission Medications: * Flagyl 500mg IV Q8H (Initiated 10/28/18)- end 11/07/18 * Zosyn 3.375gm IV Q6H ( Initiated 10/26/18)- end 11/07/18 * Florastor 250mg PO BID CHF (congestive heart failure) - BNP (on admission):1620 Imaging: - Chest X-ray (10/26/18): Findings are concerning for developing congestive heart failure Medication: - Lasix 20mg IV daily Diabetes mellitus HgbA1C (09/07/18): 9.0 Accuchecks ISS- High dose Novolog 12 units AC Lantus 24units SC HS Glipizide 10mg PO BID Januvia 100mg PO daily Hypoglycemia protocol Hypothyroid - TSH/Free T4 (09/07/18): 9.5/0.30 - Continue Synthroid 100mcg PO daily History of DVT (deep vein thrombosis) - Continue Xarelto 20mg PO daily Gout - Colchicine 0.6mg PO BID Chronic obstructive pulmonary disease w/ acute lower respiratory infxn - Consulted Pulmonology, Dr. Dickerson Imaging: Chest CT without contrast: Worsening airspace consolidative changes seen in the bilateral lower lobes; left greater than right. This may be the sequelae of acute infectious changes. Clinical correlation. Post treatment interval Medications: - Azithromycin 500mg IVPB daily (stared 10/27/18) - Duoneb 3ml IH RQ4 PRN for shortness of breath - Brovana 15mcg INH RQ12H - Solumedrol 40mg IVP daily, tapering off - BiPAP continuos - Florastor 250mg PO BID History of anemia - H/H stable - Fergon 324mg PO TID Stage 2 Sacral Ulcer - Wound care consult - Recommendation for use of hydrogen peroxide - Turn Q2H Intertrigo - Nystatin Powder BID Psychiatric disturbance - Depression and anxiety - Consulted Psychiatry, Dr. Dexter----> Help appreciated Medications: * Clonazepam 0.5mg PO BID * Zoloft 50mg PO daily Electrolyte disturbance - Resolved - Hypomagnesemia and hypokalemia * Repleted appropriately * Continue to monitor with am labs Fibromyalgia - Home medication: Diazepam 5mg PO BID - Percocet 5/325mg 2 tab Q6H prn for pain - Trazadone 50mg PO HS PRN Prophylactic measure - GI: Pepcid 20mg IV daily - DVT: Xarelto 20mg PO daily - PT/OT - After Palliative care consult on prior admission, Patient is now DNR/DNI; POLST form signed; refer to patient's chart - Hospice evaluation ordered 11/03/18 as per patient's request Disposition - Pending approval from hospice and for daughter to have meeting with hospice Case discussed with Dr. Nenita Alatorre DO, PGY2
--- NOTE | 2018-11-08 18:11 | CP.PCM.PN ---
Subjective - Date & Time of Evaluation Date of Evaluation: 11/08/18 Time of Evaluation: 18:00 - Subjective Subjective: Has abdominal pain. Objective - Vital Signs/Intake and Output Vital Signs (last 24 hours): Temp Pulse Resp BP Pulse Ox 98.0 F 111 H 18 105/60 96 11/08/18 16:00 11/08/18 16:00 11/08/18 16:00 11/08/18 16:00 11/08/18 16:00 Intake and Output: 11/08/18 11/08/18 06:59 18:59 Intake Total 500 Output Total 800 Balance -300 - Medications Medications: Current Medications Albuterol/Ipratropium (Duoneb 3 Mg/0.5 Mg (3 Ml) Ud) 3 ml IH RQ4 PRN PRN Reason: Shortness of Breath Last Admin: 11/07/18 07:46 Dose: 3 ml Arformoterol Tartrate (Brovana) 15 mcg INH RQ12@1000,2200 [facility] Last Admin: 11/07/18 19:25 Dose: 15 mcg Artificial Tears (Artificial Tears) 1 ml OU BID [facility] Last Admin: 11/08/18 11:23 Dose: Not Given Clonazepam (Klonopin) 0.5 mg PO BID [facility] Last Admin: 11/08/18 11:24 Dose: Not Given Colchicine (Colocrys) 0.6 mg PO BID [facility] Last Admin: 11/08/18 11:24 Dose: Not Given Dextrose (Dextrose 50% Inj) 0 ml IVP .STAT PRN; Protocol PRN Reason: Hypoglycemia Protocol Dextrose (Glutose 15) 0 gm PO .ONCE PRN; Protocol PRN Reason: Hypoglycemia Protocol Diazepam (Valium) 5 mg PO BID [facility] Last Admin: 11/08/18 11:27 Dose: Not Given Diltiazem HCl (Cardizem Cd) 180 mg PO TID [facility] Last Admin: 11/08/18 13:54 Dose: Not Given Dronabinol (Marinol) 2.5 mg PO BID [facility] Last Admin: 11/08/18 11:24 Dose: Not Given Ergocalciferol (Drisdol 50,000 Intl Units Cap) 1 cap PO Q7D [facility] Last Admin: 11/02/18 17:23 Dose: 1 cap Escitalopram Oxalate (Lexapro) 5 mg PO DAILY [facility] Last Admin: 11/08/18 11:24 Dose: Not Given Famotidine (Pepcid) 20 mg PO DAILY [facility] Last Admin: 11/08/18 11:26 Dose: Not Given Fentanyl (Duragesic) 1 patch TD Q72H [facility] Last Admin: 11/06/18 22:42 Dose: Not Given Ferrous Gluconate (Fergon) 324 mg PO TID [facility] Last Admin: 11/08/18 13:54 Dose: Not Given Furosemide (Lasix) 20 mg IVP DAILY [facility] Last Admin: 11/08/18 11:24 Dose: Not Given Glucagon (Glucagen Diagnostic Kit) 0 mg IM .STAT PRN; Protocol PRN Reason: Hypoglycemia Protocol Metronidazole (Flagyl) 500 mg in 100 mls @ 100 mls/hr IVPB Q8H [facility]; Protocol Last Admin: 11/08/18 13:54 Dose: Not Given Insulin Aspart (Novolog) 12 unit SC AC [facility] Last Admin: 11/08/18 12:00 Dose: Not Given Insulin Glargine (Lantus) 24 unit SC HS [facility] Last Admin: 11/07/18 21:36 Dose: Not Given Insulin Human Regular (Novolin R) 0 unit SC [facility]; Protocol Last Admin: 11/08/18 11:45 Dose: Not Given Levothyroxine Sodium (Synthroid) 100 mcg PO DAILY@0630 [facility] Last Admin: 11/08/18 06:14 Dose: 100 mcg Methylprednisolone (Solu-Medrol) 20 mg IVP DAILY [facility] Last Admin: 11/08/18 11:27 Dose: Not Given Nystatin (Nystop Topical Powder) 1 applic TOP BID [facility] Last Admin: 11/08/18 11:26 Dose: Not Given Oxycodone/Acetaminophen (Percocet 5/325 Mg Tab) 2 tab PO Q4H PRN PRN Reason: Pain, severe (8-10) Stop: 11/09/18 21:41 Last Admin: 11/08/18 16:57 Dose: 2 tab Rivaroxaban (Xarelto) 20 mg PO DAILY [facility] Last Admin: 11/08/18 11:27 Dose: Not Given Saccharomyces Boulardii (Florastor) 250 mg PO BID [facility] Last Admin: 11/08/18 11:24 Dose: Not Given Sertraline HCl (Zoloft) 50 mg PO DAILY [facility] Last Admin: 11/08/18 11:27 Dose: Not Given Sitagliptin Phosphate (Januvia) 100 mg PO DAILY [facility] Last Admin: 11/08/18 11:24 Dose: Not Given Trazodone HCl (Desyrel) 50 mg PO HS PRN PRN Reason: Sleep Last Admin: 11/07/18 21:36 Dose: 50 mg Trimethobenzamide HCl (Tigan) 200 mg IM Q8 PRN PRN Reason: Nausea/Vomiting Vitamin B Complex/Vit C/Folic Acid (Nephro-Lavinia) 1 tab PO DAILY [facility] Last Admin: 11/08/18 11:24 Dose: Not Given - Labs Labs: 11/07/18 07:48 11/07/18 07:48 PT 16.2 SECONDS (9.7-12.2) H 10/26/18 13:10 INR 1.5 10/26/18 13:10 APTT 29.0 SECONDS (21-34) 10/26/18 13:10 - Head Exam Head Exam: ATRAUMATIC - Eye Exam Eye Exam: Normal appearance - ENT Exam ENT Exam: Mucous Membranes Dry - Respiratory Exam Respiratory Exam: NORMAL BREATHING PATTERN - Cardiovascular Exam Cardiovascular Exam: +S1, +S2 - GI/Abdominal Exam GI & Abdominal Exam: Normal Bowel Sounds - Extremities Exam Extremities Exam: Normal Inspection - Neurological Exam Neurological Exam: Oriented x3 - Psychiatric Exam Psychiatric exam: Normal Affect, Normal Mood - Skin Skin Exam: Warm Assessment and Plan (1) Anemia Assessment & Plan: anemia of chronic disease Status: Acute (2) Pancreatic cancer metastasized to liver Assessment & Plan: stage IV liver metastasis patient experiencing abdominal pain, diminished appetite and anxiety. Discussed medical marijuana with the patient and her daughter to help alleviate the above symptoms. She is agreeable to try it. She will be referred to Dr. Armendariz for medical marijuana consideration. Status: Acute
[2018-11-08] MEDS: (Lantus) Insulin Glargine, Recombinant SC SCH (21:01)
[2018-11-08] MEDS: Arformoterol 15 mcg/2 ml Inh Sol INH SCH (21:17)
[2018-11-09] MEDS: Levothyroxine 100 MCG TAB PO SCH (06:20)
[2018-11-09] MEDS: metroNIDAZOLE IV 500 mg/100 ml 500 MG/100 ML BAG IVPB SCH ×3 (06:21→22:12)
--- NOTE | 2018-11-09 07:12 | CP.PCM.PN ---
Subjective - Date & Time of Evaluation Date of Evaluation: 11/09/18 Time of Evaluation: 07:09 - Subjective Subjective: Medicine Note for Dr. Gutierres's Service Patient was seen and examined at bedside. Patient is depressed, admits to generalized body pain. No acute changes. Objective - Vital Signs/Intake and Output Vital Signs (last 24 hours): Temp Pulse Resp BP Pulse Ox 98.3 F 110 H 20 113/71 95 11/08/18 23:00 11/09/18 05:03 11/08/18 23:00 11/08/18 23:00 11/08/18 23:00 Intake and Output: 11/09/18 11/09/18 06:59 18:59 Output Total 650 Balance -650 - Medications Medications: Current Medications Albuterol/Ipratropium (Duoneb 3 Mg/0.5 Mg (3 Ml) Ud) 3 ml IH RQ4 PRN PRN Reason: Shortness of Breath Last Admin: 11/07/18 07:46 Dose: 3 ml Arformoterol Tartrate (Brovana) 15 mcg INH RQ12@1000,2200 [facility] Last Admin: 11/08/18 21:17 Dose: 15 mcg Artificial Tears (Artificial Tears) 1 ml OU BID [facility] Last Admin: 11/08/18 19:08 Dose: 1 drop Clonazepam (Klonopin) 0.5 mg PO BID [facility] Last Admin: 11/08/18 19:08 Dose: 0.5 mg Colchicine (Colocrys) 0.6 mg PO BID [facility] Last Admin: 11/08/18 19:08 Dose: 0.6 mg Dextrose (Dextrose 50% Inj) 0 ml IVP .STAT PRN; Protocol PRN Reason: Hypoglycemia Protocol Dextrose (Glutose 15) 0 gm PO .ONCE PRN; Protocol PRN Reason: Hypoglycemia Protocol Diazepam (Valium) 5 mg PO BID [facility] Last Admin: 11/08/18 19:08 Dose: 5 mg Diltiazem HCl (Cardizem Cd) 180 mg PO TID [facility] Last Admin: 11/08/18 19:07 Dose: 180 mg Dronabinol (Marinol) 2.5 mg PO BID [facility] Last Admin: 11/08/18 19:08 Dose: 2.5 mg Ergocalciferol (Drisdol 50,000 Intl Units Cap) 1 cap PO Q7D [facility] Last Admin: 11/02/18 17:23 Dose: 1 cap Escitalopram Oxalate (Lexapro) 5 mg PO DAILY [facility] Last Admin: 11/08/18 11:24 Dose: Not Given Famotidine (Pepcid) 20 mg PO DAILY [facility] Last Admin: 11/08/18 11:26 Dose: Not Given Fentanyl (Duragesic) 1 patch TD Q72H [facility] Last Admin: 11/06/18 22:42 Dose: Not Given Ferrous Gluconate (Fergon) 324 mg PO TID [facility] Last Admin: 11/08/18 19:08 Dose: 324 mg Furosemide (Lasix) 20 mg IVP DAILY [facility] Last Admin: 11/08/18 21:02 Dose: 20 mg Glucagon (Glucagen Diagnostic Kit) 0 mg IM .STAT PRN; Protocol PRN Reason: Hypoglycemia Protocol Metronidazole (Flagyl) 500 mg in 100 mls @ 100 mls/hr IVPB Q8H [facility]; Protocol Last Admin: 11/09/18 06:21 Dose: 100 mls/hr Insulin Aspart (Novolog) 12 unit SC AC [facility] Last Admin: 11/08/18 19:09 Dose: 12 units Insulin Glargine (Lantus) 24 unit SC HS [facility] Last Admin: 11/08/18 21:01 Dose: 24 u Insulin Human Regular (Novolin R) 0 unit SC [facility]; Protocol Last Admin: 11/08/18 21:01 Dose: Not Given Levothyroxine Sodium (Synthroid) 100 mcg PO DAILY@0630 [facility] Last Admin: 11/09/18 06:20 Dose: 100 mcg Methylprednisolone (Solu-Medrol) 20 mg IVP DAILY [facility] Last Admin: 11/08/18 11:27 Dose: Not Given Nystatin (Nystop Topical Powder) 1 applic TOP BID [facility] Last Admin: 11/08/18 19:09 Dose: 1 applic Oxycodone/Acetaminophen (Percocet 5/325 Mg Tab) 2 tab PO Q4H PRN PRN Reason: Pain, severe (8-10) Stop: 11/09/18 21:41 Last Admin: 11/08/18 20:57 Dose: 2 tab Rivaroxaban (Xarelto) 20 mg PO DAILY [facility] Last Admin: 11/08/18 11:27 Dose: Not Given Saccharomyces Boulardii (Florastor) 250 mg PO BID [facility] Last Admin: 11/08/18 19:08 Dose: 250 mg Sertraline HCl (Zoloft) 50 mg PO DAILY [facility] Last Admin: 11/08/18 11:27 Dose: Not Given Sitagliptin Phosphate (Januvia) 100 mg PO DAILY [facility] Last Admin: 11/08/18 11:24 Dose: Not Given Trazodone HCl (Desyrel) 50 mg PO HS PRN PRN Reason: Sleep Last Admin: 11/08/18 21:00 Dose: 50 mg Trimethobenzamide HCl (Tigan) 200 mg IM Q8 PRN PRN Reason: Nausea/Vomiting Vitamin B Complex/Vit C/Folic Acid (Nephro-Lavinia) 1 tab PO DAILY [facility] Last Admin: 11/08/18 11:24 Dose: Not Given - Labs Labs: 11/07/18 07:48 11/07/18 07:48 PT 16.2 SECONDS (9.7-12.2) H 10/26/18 13:10 INR 1.5 10/26/18 13:10 APTT 29.0 SECONDS (21-34) 10/26/18 13:10 - Additional Findings Additional findings: - Constitutional Appears: No Acute Distress - Head Exam Head Exam: ATRAUMATIC - Eye Exam Eye Exam: EOMI - ENT Exam ENT Exam: Mucous Membranes Moist - Respiratory Exam Respiratory Exam: Clear to Ausculation Bilateral, NORMAL BREATHING PATTERN. absent: Rales, Rhonchi, Wheezes - Cardiovascular Exam Cardiovascular Exam: REGULAR RHYTHM, +S1, +S2 - GI/Abdominal Exam GI & Abdominal Exam: Soft, Tenderness (LUQ pain), Normal Bowel Sounds. absent: Distended - Extremities Exam Extremities Exam: absent: Pedal Edema - Neurological Exam Neurological Exam: Alert, Awake, Oriented x3 - Psychiatric Exam Psychiatric exam: Depressed - Skin Skin Exam: Dry, Normal Color, Warm Assessment and Plan - Assessment and Plan (Free Text) Plan: Pancreatic Cancer with mets - Metastasis to the liver, grossly single nodule. Cystic lesion and harden pancreas. - Pathology: Adenocarcinoma, favor pancreatico-Biliary Labs and imaging: - CEA: 42.5, CA19-9: 1980, CA125: 36.2 - Abdomen/Pelvic CT: Heterogeneous hyperdense pancreatic mass measuring approximately 2.7 x 2.5 cm at the pancreatic body/tail. Ectatic dilated pancreatic duct. Additional cystic heterogeneous focus measuring approximately 15 x 14 mm is noted at the superior aspect of the pancreas. Appearance worrisome for malignant neoplasm. Wall thickening involving the 2nd portion of the duodenum of uncertain significance; considerations include infectious, inflammatory, or malignant etiologies. Correlate clinically and recommend further evaluation with direct visualization if indicated. Small pelvic free fluid Pain management: - Fenatyl 25mcg/hr 1 patch TD Q72 hours - Oxycodone 2 tab PO Q4H PRN - Referred for medical marijuana SVT (supraventricular tachycardia) - Consulted Motion Picture Set Worker, Dr. 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 Pineda---> Help appreciated * No ST changes * No invasive intervention needed as per cardiology Clostridium difficile infection - Consulted ID, Dr. Little---> help appreciated Labs: - C-difficle toxin (10/27/18): Positive * This was checked due known exposure at the longterm prior to admission Medications: * Flagyl 500mg IV Q8H (Initiated 10/28/18)- end 11/07/18 * Zosyn 3.375gm IV Q6H ( Initiated 10/26/18)- end 11/07/18 * Florastor 250mg PO BID CHF (congestive heart failure) - BNP (on admission):1620 Imaging: - Chest X-ray (10/26/18): Findings are concerning for developing congestive heart failure Medication: - Lasix 20mg IV daily Diabetes mellitus HgbA1C (09/07/18): 9.0 Accuchecks ISS- High dose Novolog 12 units AC Lantus 24units SC HS Glipizide 10mg PO BID Januv[facility] 100mg PO daily Hypoglycemia protocol Hypothyroid - TSH/Free T4 (09/07/18): 9.5/0.30 - Continue Synthroid 100mcg PO daily History of DVT (deep vein thrombosis) - Continue Xarelto 20mg PO daily Gout - Colchicine 0.6mg PO BID Chronic obstructive pulmonary disease w/ acute lower respiratory infxn - Consulted Pulmonology, Dr. Dickerson Imaging: Chest CT without contrast: Worsening airspace consolidative changes seen in the bilateral lower lobes; left greater than right. This may be the sequelae of acute infectious changes. Clinical correlation. Post treatment interval Medications: - Azithromycin 500mg IVPB daily (stared 10/27/18) - Duoneb 3ml IH RQ4 PRN for shortness of breath - Brovana 15mcg INH RQ12H - Solumedrol 40mg IVP daily, tapering off - BiPAP continuos - Florastor 250mg PO BID History of anemia - H/H stable - Fergon 324mg PO TID Stage 2 Sacral Ulcer - Wound care consult - Recommendation for use of hydrogen peroxide - Turn Q2H Intertrigo - Nystatin Powder BID Psychiatric disturbance - Depression and anxiety - Consulted Psychiatry, Dr. Dexter----> Help appreciated Medications: * Clonazepam 0.5mg PO BID * Zoloft 50mg PO daily Electrolyte disturbance - Resolved - Hypomagnesemia and hypokalemia * Repleted appropriately * Continue to monitor with am labs Fibromyalgia - Home medication: Diazepam 5mg PO BID - Percocet 5/325mg 2 tab Q6H prn for pain - Trazadone 50mg PO HS PRN Prophylactic measure - GI: Pepcid 20mg IV daily - DVT: Xarelto 20mg PO daily - PT/OT - After Palliative care consult on prior admission, Patient is now DNR/DNI; POLST form signed; refer to patient's chart - Hospice evaluation ordered 11/03/18 as per patient's request Disposition - Pending approval from hospice and for daughter to have meeting with hospice Case discussed with Dr. Nenita Alatorre DO, PGY2
[2018-11-09] MEDS: (Novolin R) Insulin Human Regular 100 units/ml vial SC SCH ×4 (08:10→22:06)
[2018-11-09] MEDS: (Novolog) Insulin Aspart, Recombinant 100 u/ml 10 ml vial SC SCH ×3 (08:11→18:07)
[2018-11-09 08:37] LABS: BASO % 0.4 % (0.0-2.0); EOS # 0.1 K/uL (0.0-0.7); EOS % 0.6 % (0.0-4.0); HEMOGLOBIN 10.7 g/dL (11.0-16.0); LYMPH # 1.2 K/uL (1.0-4.3); LYMPH % 12.4 % (20.0-40.0); MEAN CELL VOLUME 79.4 fL (81.0-99.0); MEAN CORPUSCULAR HEMOGLOBIN 24.9 pg (27.0-31.0); MEAN CORPUSCULAR HGB CONC 31.4 g/dL (33.0-37.0); MEAN PLATELET VOLUME 9.1 fL (7.2-11.7); MONO % 10.3 % (0.0-10.0); NEUT # 7.3 K/uL (1.8-7.0); NEUT % 76.3 % (50.0-75.0); NRBC % 0.1 % (0.0-2.0); RBC 4.3 Mil/uL (3.80-5.20); RED CELL DISTRIBUTION WIDTH 22.4 % (11.5-14.5); WHITE BLOOD COUNT 9.5 K/uL (4.8-10.8)
[2018-11-09 09:01] LABS: ALB/GLOB RATIO 1.3 (1.0-2.1); ALBUMIN 2.9 g/dL (3.5-5.0); ALT/SGPT 91 U/L (9-52); AST/SGOT 43 U/L (14-36); BLOOD UREA NITROGEN 21 mg/dL (7-17); CALCIUM 8.5 mg/dl (8.6-10.4); GFR NON-AFRICAN AMERICAN > 60
[2018-11-09] MEDS: Arformoterol 15 mcg/2 ml Inh Sol INH SCH ×2 (09:03→19:06)
[2018-11-09] MEDS: Aritificial Tears (15ml) OU SCH ×2 (10:29→18:05)
[2018-11-09] MEDS: MethylPREDNISolone 40 mg Vial IVP SCH (10:29)
[2018-11-09] MEDS: Saccharomyces Boulardi 250 mg Cap PO SCH ×2 (10:29→18:06)
[2018-11-09] MEDS: diltiaZEM 180 mg/24 Hours CD Cap PO SCH ×3 (10:29→18:06)
[2018-11-09] MEDS: Multivitamin Vitamin B Complex (Nephro-Vite) Tab PO SCH (10:32)
[2018-11-09] MEDS: Ergocalciferol 50,000 Intl Units Cap PO SCH (18:06)
[2018-11-09] MEDS: Oxycodone/Acetaminophen 5/325 mg Tab PO PRN (18:58)
--- NOTE | 2018-11-09 22:10 | CP.PCM.PN ---
Subjective - Date & Time of Evaluation Date of Evaluation: 11/09/18 Time of Evaluation: 17:00 - Subjective Subjective: Feels depressed Objective - Vital Signs/Intake and Output Vital Signs (last 24 hours): Temp Pulse Resp BP Pulse Ox 98 F 108 H 20 124/79 99 11/09/18 16:42 11/09/18 19:08 11/09/18 16:42 11/09/18 16:42 11/09/18 16:42 Intake and Output: 11/09/18 11/10/18 18:59 06:59 Output Total 300 Balance -300 - Medications Medications: Current Medications Albuterol/Ipratropium (Duoneb 3 Mg/0.5 Mg (3 Ml) Ud) 3 ml IH RQ4 PRN PRN Reason: Shortness of Breath Last Admin: 11/07/18 07:46 Dose: 3 ml Arformoterol Tartrate (Brovana) 15 mcg INH RQ12@1000,2200 [facility] Last Admin: 11/09/18 19:06 Dose: 15 mcg Artificial Tears (Artificial Tears) 1 ml OU BID [facility] Last Admin: 11/09/18 18:05 Dose: 1 drop Clonazepam (Klonopin) 0.5 mg PO BID [facility] Last Admin: 11/09/18 18:06 Dose: Not Given Colchicine (Colocrys) 0.6 mg PO BID [facility] Last Admin: 11/09/18 18:06 Dose: Not Given Dextrose (Dextrose 50% Inj) 0 ml IVP .STAT PRN; Protocol PRN Reason: Hypoglycemia Protocol Dextrose (Glutose 15) 0 gm PO .ONCE PRN; Protocol PRN Reason: Hypoglycemia Protocol Diazepam (Valium) 5 mg PO BID [facility] Last Admin: 11/09/18 18:07 Dose: Not Given Diltiazem HCl (Cardizem Cd) 180 mg PO TID [facility] Last Admin: 11/09/18 18:06 Dose: Not Given Dronabinol (Marinol) 2.5 mg PO BID [facility] Last Admin: 11/09/18 18:06 Dose: Not Given Ergocalciferol (Drisdol 50,000 Intl Units Cap) 1 cap PO Q7D [facility] Last Admin: 11/09/18 18:06 Dose: Not Given Escitalopram Oxalate (Lexapro) 5 mg PO DAILY [facility] Last Admin: 11/09/18 10:31 Dose: Not Given Famotidine (Pepcid) 20 mg PO DAILY [facility] Last Admin: 11/09/18 10:29 Dose: 20 mg Fentanyl (Duragesic) 1 patch TD Q72H [facility] Last Admin: 11/06/18 22:42 Dose: Not Given Ferrous Gluconate (Fergon) 324 mg PO TID [facility] Last Admin: 11/09/18 18:06 Dose: Not Given Furosemide (Lasix) 20 mg IVP DAILY [facility] Last Admin: 11/09/18 10:27 Dose: Not Given Glucagon (Glucagen Diagnostic Kit) 0 mg IM .STAT PRN; Protocol PRN Reason: Hypoglycemia Protocol Metronidazole (Flagyl) 500 mg in 100 mls @ 100 mls/hr IVPB Q8H [facility]; Protocol Last Admin: 11/09/18 13:49 Dose: 100 mls/hr Insulin Aspart (Novolog) 12 unit SC AC [facility] Last Admin: 11/09/18 18:07 Dose: Not Given Insulin Glargine (Lantus) 24 unit SC HS [facility] Last Admin: 11/08/18 21:01 Dose: 24 u Insulin Human Regular (Novolin R) 0 unit SC [facility]; Protocol Last Admin: 11/09/18 22:06 Dose: Not Given Levothyroxine Sodium (Synthroid) 100 mcg PO DAILY@0630 [facility] Last Admin: 11/09/18 06:20 Dose: 100 mcg Methylprednisolone (Solu-Medrol) 20 mg IVP DAILY [facility] Last Admin: 11/09/18 10:29 Dose: 20 mg Nystatin (Nystop Topical Powder) 1 applic TOP BID [facility] Last Admin: 11/09/18 18:07 Dose: 1 applic Rivaroxaban (Xarelto) 20 mg PO DAILY [facility] Last Admin: 11/09/18 10:32 Dose: Not Given Saccharomyces Boulardii (Florastor) 250 mg PO BID [facility] Last Admin: 11/09/18 18:06 Dose: Not Given Sertraline HCl (Zoloft) 50 mg PO DAILY [facility] Last Admin: 11/09/18 10:30 Dose: 50 mg Sitagliptin Phosphate (Januvia) 100 mg PO DAILY [facility] Last Admin: 11/09/18 10:29 Dose: 100 mg Trazodone HCl (Desyrel) 50 mg PO HS PRN PRN Reason: Sleep Last Admin: 11/08/18 21:00 Dose: 50 mg Trimethobenzamide HCl (Tigan) 200 mg IM Q8 PRN PRN Reason: Nausea/Vomiting Vitamin B Complex/Vit C/Folic Acid (Nephro-Lavinia) 1 tab PO DAILY [facility] Last Admin: 11/09/18 10:32 Dose: 1 tab - Labs Labs: 11/09/18 08:26 11/09/18 08:26 PT 16.2 SECONDS (9.7-12.2) H 10/26/18 13:10 INR 1.5 10/26/18 13:10 APTT 29.0 SECONDS (21-34) 10/26/18 13:10 - Head Exam Head Exam: ATRAUMATIC - Eye Exam Eye Exam: Normal appearance - ENT Exam ENT Exam: Mucous Membranes Dry - Respiratory Exam Respiratory Exam: NORMAL BREATHING PATTERN - Cardiovascular Exam Cardiovascular Exam: +S1, +S2 - GI/Abdominal Exam GI & Abdominal Exam: Normal Bowel Sounds Assessment and Plan (1) Anemia Assessment & Plan: anemia of chronic disease Status: Acute (2) Pancreatic cancer metastasized to liver Assessment & Plan: stage IV liver metastasis patient experiencing abdominal pain, diminished appetite and anxiety. Discussed medical marijuana with the patient and her daughter to help alleviate the above symptoms. She is agreeable to try it. She will be referred to Dr. Armendariz for medical marijuana consideration. pending hospice DNR/DNI Status: Acute
[2018-11-09] MEDS: (Lantus) Insulin Glargine, Recombinant SC SCH (22:12)
[2018-11-10] MEDS ORDERED: Oxycodone/Acetaminophen 5/325 mg Tab PO STA (01:14)
[2018-11-10] MEDS ORDERED: HYDROmorphone 0.5 mg/0.5 ml ISec IVP ONE ×2 (02:15→05:01)
[2018-11-10] MEDS: metroNIDAZOLE IV 500 mg/100 ml 500 MG/100 ML BAG IVPB SCH (06:06)
[2018-11-10] MEDS: Levothyroxine 100 MCG TAB PO SCH (06:06)
--- NOTE | 2018-11-10 07:12 | CP.PCM.PN ---
Subjective - Date & Time of Evaluation Date of Evaluation: 11/10/18 Time of Evaluation: 07:11 - Subjective Subjective: Progress note for Dr. Gutierres Patient was seen and examined at bedside in no acute distress. Patient reports having more severe pain in the left side of her abdomen. She denies chest pain, palpitations, sob, n/v. No acute events overnight. Objective - Vital Signs/Intake and Output Vital Signs (last 24 hours): Temp Pulse Resp BP Pulse Ox 99.7 F H 124 H 20 120/71 99 11/09/18 23:00 11/10/18 05:30 11/09/18 23:00 11/09/18 23:00 11/09/18 23:00 Intake and Output: 11/10/18 11/10/18 06:59 18:59 Output Total 850 Balance -850 - Medications Medications: Current Medications Albuterol/Ipratropium (Duoneb 3 Mg/0.5 Mg (3 Ml) Ud) 3 ml IH RQ4 PRN PRN Reason: Shortness of Breath Last Admin: 11/07/18 07:46 Dose: 3 ml Arformoterol Tartrate (Brovana) 15 mcg INH RQ12@1000,2200 [facility] Last Admin: 11/09/18 19:06 Dose: 15 mcg Artificial Tears (Artificial Tears) 1 ml OU BID [facility] Last Admin: 11/09/18 18:05 Dose: 1 drop Clonazepam (Klonopin) 0.5 mg PO BID [facility] Last Admin: 11/09/18 18:06 Dose: Not Given Colchicine (Colocrys) 0.6 mg PO BID [facility] Last Admin: 11/09/18 18:06 Dose: Not Given Dextrose (Dextrose 50% Inj) 0 ml IVP .STAT PRN; Protocol PRN Reason: Hypoglycemia Protocol Dextrose (Glutose 15) 0 gm PO .ONCE PRN; Protocol PRN Reason: Hypoglycemia Protocol Diazepam (Valium) 5 mg PO BID [facility] Last Admin: 11/09/18 18:07 Dose: Not Given Diltiazem HCl (Cardizem Cd) 180 mg PO TID [facility] Last Admin: 11/09/18 18:06 Dose: Not Given Dronabinol (Marinol) 2.5 mg PO BID [facility] Last Admin: 11/09/18 18:06 Dose: Not Given Ergocalciferol (Drisdol 50,000 Intl Units Cap) 1 cap PO Q7D [facility] Last Admin: 11/09/18 18:06 Dose: Not Given Escitalopram Oxalate (Lexapro) 5 mg PO DAILY [facility] Last Admin: 11/09/18 10:31 Dose: Not Given Famotidine (Pepcid) 20 mg PO DAILY [facility] Fentanyl (Duragesic) 1 patch TD Q72H [facility] Last Admin: 11/09/18 23:06 Dose: 1 patch Ferrous Gluconate (Fergon) 324 mg PO TID [facility] Last Admin: 11/09/18 18:06 Dose: Not Given Furosemide (Lasix) 20 mg IVP DAILY [facility] Last Admin: 11/09/18 10:27 Dose: Not Given Glucagon (Glucagen Diagnostic Kit) 0 mg IM .STAT PRN; Protocol PRN Reason: Hypoglycemia Protocol Metronidazole (Flagyl) 500 mg in 100 mls @ 100 mls/hr IVPB Q8H [facility]; Protocol Last Admin: 11/10/18 06:06 Dose: 100 mls/hr Insulin Aspart (Novolog) 12 unit SC AC [facility] Last Admin: 11/09/18 18:07 Dose: Not Given Insulin Glargine (Lantus) 24 unit SC HS [facility] Last Admin: 11/09/18 22:12 Dose: 24 u Insulin Human Regular (Novolin R) 0 unit SC ACHS [facility]; Protocol Last Admin: 11/09/18 22:06 Dose: Not Given Levothyroxine Sodium (Synthroid) 100 mcg PO DAILY@0630 [facility] Last Admin: 11/10/18 06:06 Dose: 100 mcg Methylprednisolone (Solu-Medrol) 20 mg IVP DAILY [facility] Last Admin: 11/09/18 10:29 Dose: 20 mg Nystatin (Nystop Topical Powder) 1 applic TOP BID [facility] Last Admin: 11/09/18 18:07 Dose: 1 applic Rivaroxaban (Xarelto) 20 mg PO DAILY [facility] Last Admin: 11/09/18 10:32 Dose: Not Given Saccharomyces Boulardii (Florastor) 250 mg PO BID [facility] Last Admin: 11/09/18 18:06 Dose: Not Given Sertraline HCl (Zoloft) 50 mg PO DAILY [facility] Last Admin: 11/09/18 10:30 Dose: 50 mg Sitagliptin Phosphate (Januvia) 100 mg PO DAILY [facility] Last Admin: 11/09/18 10:29 Dose: 100 mg Trazodone HCl (Desyrel) 50 mg PO HS PRN PRN Reason: Sleep Last Admin: 11/08/18 21:00 Dose: 50 mg Trimethobenzamide HCl (Tigan) 200 mg IM Q8 PRN PRN Reason: Nausea/Vomiting Vitamin B Complex/Vit C/Folic Acid (Nephro-Lavinia) 1 tab PO DAILY [facility] Last Admin: 11/09/18 10:32 Dose: 1 tab - Labs Labs: 11/09/18 08:26 11/09/18 08:26 PT 16.2 SECONDS (9.7-12.2) H 10/26/18 13:10 INR 1.5 10/26/18 13:10 APTT 29.0 SECONDS (21-34) 10/26/18 13:10 - Additional Findings Additional findings: - Constitutional Appears: No Acute Distress - Head Exam Head Exam: ATRAUMATIC - Eye Exam Eye Exam: EOMI - ENT Exam ENT Exam: Mucous Membranes Moist - Respiratory Exam Respiratory Exam: Clear to Ausculation Bilateral, NORMAL BREATHING PATTERN. absent: Rales, Rhonchi, Wheezes - Cardiovascular Exam Cardiovascular Exam: REGULAR RHYTHM, +S1, +S2 - GI/Abdominal Exam GI & Abdominal Exam: Soft, Tenderness (LUQ pain), Normal Bowel Sounds. absent: Distended - Extremities Exam Extremities Exam: absent: Pedal Edema - Neurological Exam Neurological Exam: Alert, Awake, Oriented x3 - Psychiatric Exam Psychiatric exam: Normal Affect, Normal Mood - Skin Skin Exam: Dry, Normal Color, Warm Assessment and Plan - Assessment and Plan (Free Text) Plan: Pancreatic cancer metastasized to liver - Metastasis to the liver, grossly single nodule. Cystic lesion and harden pancreas. - Pathology: Adenocarcinoma, favor pancreato-Biliary - CEA: 42.5, CA19-9: 1980, CA125: 36.2 - Abdomen/Pelvic CT: Heterogeneous hyperdense pancreatic mass measuring approximately 2.7 x 2.5 cm at the pancreatic body/tail. Ectatic dilated pancreatic duct. Additional cystic heterogeneous focus measuring approximately 15 x 14 mm is noted at the superior aspect of the pancreas. Appearance worrisome for malignant neoplasm. Wall thickening involving the 2nd portion of the duodenum of uncertain significance; considerations include infectious, inflamma tory, or malignant etiologies. Correlate clinically and recommend further evaluation with direct visualization if indicated. Small pelvic free fluid Pain management: - Fentanyl 25mcg/hr 1 patch TD Q72 hours - Morphine 2mg IV Q4h prn for pain--> patient still complaining of pain, increased to 3mg IV Q4prn on 11/10/18 - Referred to Dr. Armendariz for medical marijuana consideration. Sepsis - Secondary to healthcare acquired pneumonia and bacteremia - Consulted IDDr. Little---> help appreciated - On admission: WBC (11.9); downtrending - Tachycardia, Afebrile [id number] - BC (10/26/18): Positive for gram negative val (after 4-5 days) - UC (10/26/18): No growth - Chest CT without contrast: Worsening airspace consolidative changes seen in the bilateral lower lobes; left greater than right. This may be the sequelae of acute infectious changes. Clinical correlation. Post treatment interval - Medications: * Vancomycin 1gm IV (Received 2 doses- 10/26 & 10/27) * Azithromycin 500mg IVPB daily (stared 10/27/18, stopped on 11/05/18) * Zosyn 3.375gm IV Q8H ( started 10/31/18, stopped on 11/06/18) * Florastor 250mg PO BID SVT (supraventricular tachycardia) - Consulted Firestopper Installer, Dr. Pineda---> Help appreciated - History of Tachycardia * FUEL HANDLER at 11:00pm 10/27/18 for episode of SVT * Cardizem 180mg PO TID Elevated troponin - Consulted Firestopper InstallerDr. Pineda---> Help appreciated * No ST changes * No invasive intervention needed as per cardiology Clostridium difficile infection - Consulted IDDr. Little---> help appreciated - C-difficle toxin (10/27/18): Positive * This was checked due known exposure at the assisted prior to admission - Medications: * Flagyl 500mg IV Q8H (Initiated 10/28/18)- end 11/07/18 * Zosyn 3.375gm IV Q6H ( Initiated 10/26/18)- end 11/07/18 * Florastor 250mg PO BID CHF (congestive heart failure) - BNP (on admission):1620 - Chest X-ray (10/26/18): Findings are concerning for developing congestive heart failure - Medication: Lasix 20mg IV daily Diabetes mellitus - HgbA1C (09/07/18): 9.0 - Accuchecks, Hypoglycemia protocol - Medications: * ISS- High dose * Novolog 12 units AC * Lantus 24units SC HS * Januvia 100mg PO daily Hypothyroid - TSH/Free T4 (09/07/18): 9.5/0.30 - Continue Synthroid 100mcg PO daily History of DVT (deep vein thrombosis) - Continue Xarelto 20mg PO daily Gout - Colchicine 0.6mg PO BID Chr obstructive pulmonary disease w/ acute lower respiratory infxn - Consulted Pulmonology, Dr. Dickerson - Chest CT without contrast: Worsening airspace consolidative changes seen in the bilateral lower lobes; left greater than right. This may be the sequelae of acute infectious changes. Clinical correlation. Post treatment interval - BiPAP continuos - Medications: * Azithromycin 500mg IVPB daily (stared 10/27/18, stopped on 11/05/18) * Duoneb 3ml IH RQ4 PRN for shortness of breath * Brovana 15mcg INH RQ12H * Solumedrol 40mg IVP daily, tapering off * Florastor 250mg PO BID History of anemia - H/H stable - Fergon 324mg PO TID Stage 2 Sacral Ulcer - Wound care consult - Recommendation for use of hydrogen peroxide - Turn Q2H Intertrigo - Nystatin Powder BID Psychiatric disturbance - Depression and anxiety - Consulted Psychiatry, Dr. Dexter----> Help appreciated - Medications: * Clonazepam 0.5mg PO BID * Zoloft 50mg PO daily Fibromyalgia - Home medication: Diazepam 5mg PO BID, Trazadone 50mg PO HS PRN Prophylactic measure - GI: Pepcid 20mg IV daily - DVT: Xarelto 20mg PO daily - PT/OT - After Palliative care consult on prior admission, Patient is now DNR/DNI; POLST form signed; refer to patient's chart - Hospice evaluation ordered 11/03/18 as per patient's request - As per immigration case manager, had Hospice meeting with patient's daughter on 11/04/18- patient's daughter has not signed paperwork for hospice care and states that she cannot take patient home at this time as she is moving into a new house. [facility] Case discussed with Dr. Nenita Preston, PGY2
[2018-11-10] MEDS: (Novolin R) Insulin Human Regular 100 units/ml vial SC SCH ×3 (08:18→16:13)
[2018-11-10] MEDS: (Novolog) Insulin Aspart, Recombinant 100 u/ml 10 ml vial SC SCH ×3 (08:18→16:14)
[2018-11-10] MEDS: Arformoterol 15 mcg/2 ml Inh Sol INH SCH (09:12)
[2018-11-10] MEDS: Saccharomyces Boulardi 250 mg Cap PO SCH (10:32)
[2018-11-10] MEDS: Aritificial Tears (15ml) OU SCH (10:32)
[2018-11-10] MEDS: diltiaZEM 180 mg/24 Hours CD Cap PO SCH ×2 (10:33→14:27)
[2018-11-10] MEDS: MethylPREDNISolone 40 mg Vial IVP SCH (10:33)
[2018-11-10] MEDS: Multivitamin Vitamin B Complex (Nephro-Vite) Tab PO SCH (10:33)
[2018-11-10] MEDS ORDERED: Morphine 4 MG/ML VIAL IVP PRN (10:55)
[2018-11-10] MEDS ORDERED: Morphine 4 MG/ML VIAL IVP ONE (11:30)
[2018-11-10 16:13] VITALS: BP 136/85; PULSE 117; RESP 20; TEMP 98.8; O2SAT 97
--- NOTE | 2018-11-15 06:54 | DS ---
CHIEF COMPLAINT: Shortness of breath with abdominal pain, diarrhea. HISTORY OF PRESENT ILLNESS: The patient has C. diff and possible pneumonia. Started IV antibiotics. The patient presents with C. diff colitis, increasing abdominal pain. The patient has known history of pancreatic cancer with metastatic disease in the liver. The patient had prolonged course. Hospice discussed with family. Family eventually agreed for skilled nursing hospice, diagnosed with pancreatic cancer, C. diff colitis, pneumonia, asthma, tachycardia, cardiac arrhythmia. Angel Gutierres MD
== END 2018-11-10 17:27 | DRG 871 ==
LOC: C.ER 12:07 → C.5S 16:21 → OBSVTOIN 10-28 16:46
PROVIDERS: ADMIT Internal Medicine Pulmonary Disease; ATTEND Internal Medicine Pulmonary Disease
PROC: 02HV33Z Insertion of Infusion Device into Superior Vena Cava, Percutaneous Approach (ICD-10-PCS; principal; 2018-10-27)
PROC: 5A09557 Assistance with Respiratory Ventilation, Greater than 96 Consecutive Hours, Continuous Positive Airway Pressure (ICD-10-PCS; 2018-10-28)
DX: A41.9 Sepsis, unspecified organism (principal); J18.9 Pneumonia, unspecified organism; J96.91 Respiratory failure, unspecified with hypoxia; F33.2 Major depressive disorder, recurrent severe without psychotic features; I47.1 Supraventricular tachycardia; I50.30 Unspecified diastolic (congestive) heart failure; J44.0 Chronic obstructive pulmonary disease with (acute) lower respiratory infection; C78.7 Secondary malignant neoplasm of liver and intrahepatic bile duct; A04.72 Enterocolitis due to Clostridium difficile, not specified as recurrent; D63.8 Anemia in other chronic diseases classified elsewhere; E03.9 Hypothyroidism, unspecified; E11.9 Type 2 diabetes mellitus without complications; E55.9 Vitamin D deficiency, unspecified; E66.01 Morbid (severe) obesity due to excess calories; E78.5 Hyperlipidemia, unspecified; G89.29 Other chronic pain; I11.0 Hypertensive heart disease with heart failure; I48.91 Unspecified atrial fibrillation; F41.9 Anxiety disorder, unspecified; M06.9 Rheumatoid arthritis, unspecified; M79.7 Fibromyalgia; R32 Unspecified urinary incontinence; Z66 Do not resuscitate; Z63.4 Disappearance and death of family member; Z85.07 Personal history of malignant neoplasm of pancreas; Z86.711 Personal history of pulmonary embolism; Z87.891 Personal history of nicotine dependence; Z51.5 Encounter for palliative care; Z99.81 Dependence on supplemental oxygen